=== PATIENT | male | born 1950 | race Caucasian/White ===

== ENCOUNTER 2016-05-11 18:43 | Emergency (ER) | payer MEDICARE ==
[~2016-05-11] VITALS: Ht 167.6 cm; Wt 82.0 kg
[~2016-05-11 18:43] MED LIST: AUGM875T PO; GLIP10TA67 PO; MAGN400 PO; METF500 PO; OXYC1SOL5 PO; ST JTAB PO
[2016-05-11 18:48] VITALS: BP 99/48; PULSE 92; RESP 16; TEMP 98.7; O2SAT 97
[2016-05-11] MEDS ORDERED: MAGN400T2 PO (19:15)
[2016-05-11] MEDS ORDERED: ASPI81CH37 CHEW (19:15)
[2016-05-11] MEDS ORDERED: GLIP5TAB8 PO (19:15)
[2016-05-11] MEDS ORDERED: METF500T PO (19:15)
[2016-05-11] MEDS ORDERED: VENTAER INH (19:16)
[2016-05-11] MEDS ORDERED: ADVA100A INH (19:16)
--- NOTE | 2016-05-11 20:12 | PD ---
HPI . left knee pain for 3 days Chief Complaint: Pain: Acute or Chronic Time Seen by Provider: 20:12 Travel History International Travel<30 days: No Contact w/Intl Traveler<30days: No Traveled to known affect area: No History of Present Illness HPI 65-year-old male with his history of osteomyelitis here with complaints of left knee that has been swollen and painful for 3 days. Patient denies any mechanism of injury and tells me that his knee just all of a sudden started hurting. He is concerned that he may have infection and decided to come to the ED for further evaluation. Patient rates the pain as 9/10 without any further radiation. PFSH Past Medical History Asthma: Yes Blood Disorders: No Heart Rhythm Problems: No Cancer: No Cardiovascular Problems: No High Cholesterol: No Chemotherapy: No Chest Pain: No Congestive Heart Failure: No Diabetes: Yes Patient Takes Glucophage: Yes Endocrine: No Genitourinary: No Immune Disorder: No Musculoskeletal: Yes (Osteomyelitis) Neurologic: No Psychiatric: No Respiratory: Yes Radiation Therapy: No Thyroid Disease: No Tetanus Vaccination: < 5 Years Influenza Vaccination: Yes Social History Alcohol Use: Yes (2-6 beers daily) Tobacco Use: No Substance Use: No Allergies-Medications (Allergen,Severity, Reaction): Coded Allergies: No Known Allergies (Unverified , 05/11/16) Reported Meds & Prescriptions Reported Meds & Active Scripts Active Ibuprofen 800 Mg Tab 800 Mg PO TID Cleocin (Clindamycin HCl) 150 Mg Cap 450 Mg PO Q6H 7 Days Reported Advair Diskus Inh (Fluticasone-Salmeterol Inh) 100-50 Mcg/Blist Aer 1 Puff INH BID Rinse mouth after use. Ventolin Hfa 18 GM Inh (Albuterol Sulfate) 90 Mcg/Act Aer 2 Puff INH Q4-6H PRN Metformin (Metformin HCl) 500 Mg Tab 500 Mg PO DIRECTED With meals Magnesium Oxide 400 Mg Tab 400 Mg PO BID Glipizide 5 Mg Tab 5 Mg PO DAILY Take 30 minutes before a meal Aspirin Low Dose (Aspirin) 81 Mg Chew 81 Mg CHEW DAILY Review of Systems General / Constitutional: No: Fever Eyes: No: Visual changes HENT: No: Headaches Cardiovascular: No: Chest Pain or Discomfort Respiratory: No: Shortness of Breath Gastrointestinal: No: Abdominal Pain Genitourinary: No: Dysuria Musculoskeletal: Positive: Pain (left knee pain) Skin: No Rash Neurologic: No: Weakness Psychiatric: No: Depression Endocrine: No: Polydipsia Hematologic/Lymphatic: No: Easy Bruising Physical Exam Narrative GENERAL: AAO x 3, no acute distress, Well-nourished, well-developed patient. SKIN: Warm and dry. No visible rashes or bruising. HEAD: Normocephalic and atraumatic. EYES: No scleral icterus. No injection or drainage. ENT: No nasal drainage noted. Mucous membranes pink. Airway patent. NECK: Supple, trachea midline. No JVD. CARDIOVASCULAR: Regular rate and rhythm without murmurs, gallops, or rubs. RESPIRATORY: Breath sounds equal bilaterally. No accessory muscle use. No rhonchi or rales. GASTROINTESTINAL: Abdomen soft, non-tender, nondistended. EXTREMITIES: No cyanosis or edema. Left knee tender to touch. Decreased extension of the knee. There is some warmth to the medial aspect of the left knee and some mild erythema. NO definitive fluid collection BACK: Nontender without obvious deformity. No CVA tenderness. PSYCH: AAO x 3, normal affect. Data Data Last Documented VS Vital Signs Date Time Temp Pulse Resp B/P Pulse Ox O2 Delivery O2 Flow Rate FiO2 05/11/16 18:48 98.7 92 16 99/48 97 Orders Knee, Complete (4vws) (05/11/16 20:17) Oxycodone-Acetamin 5-325 Mg (Percocet (05/11/16 20:30) MDM Medical Decision Making Medical Screen Exam Complete: Yes Emergency Medical Condition: Yes Medical Record Reviewed: Yes Differential Diagnosis knee fracture, septic arthritis, less likely knee dislocation Narrative Course 65-year-old male with his history of osteomyelitis here with complaints of left knee that has been swollen and painful for 3 days. Patient denies any mechanism of injury and tells me that his knee just all of a sudden started hurting. He is concerned that he may have infection and decided to come to the ED for further evaluation. Patient rates the pain as 9/10 without any further radiation. Patient seen and examined. He does have some limited range of motion of the left knee. X-ray ordered to rule out any type of fracture or early osteomyelitis. If negative I will go ahead and treat with antibiotics for possibility of septic arthritis. Patient will need to follow-up with his primary care provider. Last 24 hours Impressions Knee X-Ray 05/11/162016 Signed Impressions: Service Date/Time: Wednesday, May 11, 2016 20:35 - CONCLUSION: Unremarkable examination of the left knee. Olegario Mcgill MD Explained to patient that he will need to f/u with ortho next week. Stressed the importance and possibility of loss of limb if they do not follow through with recommendations. Recommend Dr. Brantley. His niece was present and verbalized understanding of instructions. Patient verbalized understanding of instructions, questions were answered, and thanked me for their care. I advised them if their condition worsens, please return to the nearest emergency room for further care. Diagnosis Primary Impression: Knee pain, acute Qualified Code: M25.562 - Acute pain of left knee Additional Impression: Septic arthritis Qualified Code: M00.9 - Pyogenic arthritis of left knee joint, due to unspecified organism Referrals: Mark Brantley MD Patient Instructions: General Instructions, Knee Pain (ED), Septic Arthritis ( DC) Additional Instructions: Rest the affected area as much as possible. Ice this area for 15-20 minutes at a time. You can do this every hour or as much as tolerated. Keep this area compressed (chaparrita bandage) as tolerated. Elevate this area. Use ibuprofen as needed for pain and inflammation. Please return to emergency department if your symptoms return or worsen. Follow up with your primary care provider. Take medications as prescribed. [place] for worsening signs of infection which include increased redness, increased warmth, purulent drainage, increased swelling or streaking. You will need to see orthopedics as soon as possible. Make an appointment. Med/Other Pt SpecificInfo: Prescription(s) given Scripts Ibuprofen 800 Mg [id number] Mg PO TID #21 TAB Prov:Kumar Chapa MD 05/11/16 Clindamycin (Cleocin)150 Mg [id number] Mg PO Q6H 7 Days Ref 0 Prov:Kumar Chapa MD 05/11/16 Disposition: 01 DISCHARGE HOME Condition: Stable Jenae Swift May 11, 2016 20:12
[2016-05-11] MEDS ORDERED: oxyCODONE/ACETAMINOPHEN 5 MG/325 MG TAB PO ONE (20:30)
--- NOTE | 2016-05-11 21:16 | RADHPO ---
EXAM DATE/TIME: 05/11/2016 20:35 [facility] COMPARISON: No previous studies available for comparison. INDICATIONS : Left medial knee pain with swelling. No known injury. MEDICAL HISTORY : None. SURGICAL HISTORY : None. ENCOUNTER: Initial ACUITY: 3 days LOCATION: Left medial knee FINDINGS: Four view examination of the left knee demonstrates no evidence of fracture or dislocation. Bony min eralization is normal. The articular surfaces are intact. The suprapatellar soft tissues have a nor mal configuration. CONCLUSION: Unremarkable examination of the left knee. Olegario Mcgill MD on May 11, 2016 at 21:13 Board Certified Radiologist. This report was verified electronically.
[2016-05-11] MEDS ORDERED: CLIN150 PO (21:24)
[2016-05-11] MEDS ORDERED: IBUP800T23 PO (21:24)
[2016-05-11 21:25] VITALS: RESP 18
== END 2016-05-11 21:50 | disposition home or self-care (01) ==
LOC: PHEFT 18:43
DX: M25.562 Pain in left knee (principal); M00.9 Pyogenic arthritis, unspecified
CPT/HCPCS: 73564; 99283

== ENCOUNTER 2016-05-14 15:03 | Inpatient (IN) | payer MEDICARE ==
[~2016-05-14] VITALS: Ht 167.6 cm; Wt 81.1 kg
[~2016-05-14 15:03] MED LIST changes: +ADVA100A INH; +ASPI81CH37 CHEW; -AUGM875T PO; +CLIN150 PO; -GLIP10TA67 PO; +GLIP5TAB8 PO; +IBUP800T23 PO; -MAGN400 PO; +MAGN400T2 PO; -METF500 PO; +METF500T PO; -OXYC1SOL5 PO; -ST JTAB PO; +VENTAER INH
[2016-05-14 15:08] VITALS: BP 154/69; PULSE 81; RESP 16; TEMP 97.6; O2SAT 96
--- NOTE | 2016-05-14 15:38 | PD ---
HPI Chief Complaint: Pain: Acute or Chronic Time Seen by Provider: 15:12 Travel History International Travel<30 days: No Contact w/Intl Traveler<30days: No Traveled to known affect area: No History of Present Illness HPI This is a 65-year-old male who has a history of diabetes who presents to the emergency department with 1 week of knee pain, constant, making it difficult for him to walk, severe, associated with warmth of his knee. He has a history of osteomyelitis in his toe. He also has a history of alcohol abuse. He was seen several days ago in the emergency department and discharged on clindamycin. PFSH Past Medical History Hx Anticoagulant Therapy: Yes (ASA 81 MG PO) Asthma: Yes Blood Disorders: No Heart Rhythm Problems: No Cancer: No Cardiovascular Problems: Yes High Cholesterol: No Chemotherapy: No Chest Pain: No Congestive Heart Failure: No Diabetes: Yes Patient Takes Glucophage: Yes Diminished Hearing: No Endocrine: No Genitourinary: No Immune Disorder: No Implanted Vascular Access Dvce: Yes Musculoskeletal: Yes (Osteomyelitis) Neurologic: No Psychiatric: No Respiratory: Yes Radiation Therapy: No Thyroid Disease: No Tetanus Vaccination: < 5 Years Past Surgical History Other Surgery: Yes (RIGHT KNEE ) Social History Alcohol Use: Yes (2-6 beers daily) Tobacco Use: No Substance Use: No Allergies-Medications (Allergen,Severity, Reaction): Coded Allergies: No Known Allergies (Unverified , 05/14/16) Reported Meds & Prescriptions Reported Meds & Active Scripts Active Ibuprofen 800 Mg Tab 800 Mg PO TID Cleocin (Clindamycin HCl) 150 Mg Cap 450 Mg PO Q6H 7 Days Reported Advair Diskus Inh (Fluticasone-Salmeterol Inh) 100-50 Mcg/Blist Aer 1 Puff INH BID Rinse mouth after use. Ventolin Hfa 18 GM Inh (Albuterol Sulfate) 90 Mcg/Act Aer 2 Puff INH Q4-6H PRN Metformin (Metformin HCl) 500 Mg Tab 500 Mg PO DIRECTED With meals Magnesium Oxide 400 Mg Tab 400 Mg PO BID Glipizide 5 Mg Tab 5 Mg PO DAILY Take 30 minutes before a meal Aspirin Low Dose (Aspirin) 81 Mg Chew 81 Mg CHEW DAILY Review of Systems Except as stated in HPI: all other systems reviewed are Neg Physical Exam Narrative GENERAL:Well appearing, no acute distress SKIN: Some erythema over the proximal tibia HEAD: Atraumatic. Normocephalic. EYES: Pupils equal and round. No injection or drainage. ENT: Moist mucous membranes NECK: Trachea midline. CARDIOVASCULAR: Regular rate and rhythm. No murmur appreciated. RESPIRATORY: Clear to auscultation. Breath sounds equal bilaterally. GASTROINTESTINAL: Abdomen soft, non-tender, nondistended. MUSCULOSKELETAL: Warmth and mild effusion of the left knee with severe pain with range of motion NEUROLOGICAL: Awake and alert. No obvious cranial nerve deficits. Moving all extremities. PSYCHIATRIC: Appropriate mood and affect; insight and judgment normal. Data Data Last Documented VS Vital Signs Date Time Temp Pulse Resp B/P Pulse Ox O2 Delivery O2 Flow Rate FiO2 05/14/16 15:10 84 16 05/14/16 15:08 97.6 154/69 96 Orders Electrocardiogram (05/14/16 ) Complete Blood Count With Diff (05/14/16 15:13) Comprehensive Metabolic Panel (05/14/16 15:13) C-Reactive Protein (Crp) (05/14/16 15:13) ^ Insert Iv (05/14/16 15:13) Ed Poc Ultrasound (05/14/16 ) Blood Culture (05/14/16 15:24) Westergren Sedimentation Rate (05/14/16 15:24) Knee, Ltd (1 Or 2vws) (05/14/16 ) Alcohol (Ethanol) (05/14/16 15:20) Type And Screen (05/14/16 16:09) Prothrombin Time / Inr (Pt) (05/14/16 16:09) Act Partial Throm Time (Ptt) (05/14/16 16:09) Lidocaine 1% Inj (50 Ml) (Xylocaine 1% I (05/14/16 16:15) Vancomycin Inj (Vancomycin Inj) (05/14/16 16:45) Cefepime Inj (Maxipime Inj) (05/14/16 16:45) Admit Order (Ed Use Only) (05/14/16 17:12) Lactic Acid (05/14/16 17:13) Red Blood Cells (Rbc) (05/14/16 17:13) Blood Product Administration .UPON TRANSFUSION (05/14/16 17:13) Sodium Chlor 0.9% 250 Ml Inj (Ns 250 Ml (05/14/16 17:15) Pantoprazole Inj (Protonix Inj) (05/14/16 17:15) Labs Laboratory Tests Test 05/14/16 05/14/16 15:20 16:10 White Blood Count 11.3 TH/MM3 Red Blood Count 2.09 MIL/MM3 Hemoglobin 6.8 GM/DL Hematocrit 20.6 % Mean Corpuscular Volume 98.4 FL Mean Corpuscular Hemoglobin 32.5 PG Mean Corpuscular Hemoglobin 33.0 % Concent Red Cell Distribution Width 14.7 % Platelet Count 104 TH/MM3 Mean Platelet Volume 8.2 FL Neutrophils (%) (Auto) 80.8 % Lymphocytes (%) (Auto) 5.5 % Monocytes (%) (Auto) 10.5 % Eosinophils (%) (Auto) 2.9 % Basophils (%) (Auto) 0.3 % Neutrophils # (Auto) 9.1 TH/MM3 Lymphocytes # (Auto) 0.6 TH/MM3 Monocytes # (Auto) 1.2 TH/MM3 Eosinophils # (Auto) 0.3 TH/MM3 Basophils # (Auto) 0.0 TH/MM3 CBC Comment AUTO DIFF Differential Total Cells 100 Counted Neutrophils % (Manual) 68 % Band Neutrophils % 12 % Lymphocytes % 9 % Monocytes % 9 % Eosinophils % 2 % Neutrophils # (Manual) 9.0 TH/MM3 Differential Comment FINAL DIFF MANUAL Toxic Granulation 1+ Toxic Vacuolation PRESENT Platelet Estimate LOW Platelet Morphology Comment NORMAL Ovalocytes 1+ Erythrocyte Sedimentation Rate GREATER THAN 140 mm/hr Sodium Level 132 MEQ/L Potassium Level 5.0 MEQ/L Chloride Level 99 MEQ/L Carbon Dioxide Level 19.1 MEQ/L Anion Gap 14 MEQ/L Blood Urea Nitrogen 103 MG/DL Creatinine 5.38 MG/DL Estimat Glomerular Filtration 11 ML/MIN Rate Random Glucose 245 MG/DL Calcium Level 7.3 MG/DL Protein Corrected Calcium 7.8 MG/DL Total Bilirubin 1.2 MG/DL Aspartate Amino Transf 19 U/L (AST/SGOT) Alanine Aminotransferase 13 U/L (ALT/SGPT) Alkaline Phosphatase 106 U/L C-Reactive Protein 26.40 MG/DL Total Protein 6.1 GM/DL Albumin 1.7 GM/DL Ethyl Alcohol Level LESS THAN 3 MG/DL Prothrombin Time 13.4 SEC Prothromb Time International 1.2 RATIO Ratio Activated Partial 38.5 SEC Thromboplast Time Blood Type A POSITIVE Blood Bank Comment [facility] Medical Decision Making Medical Screen Exam Complete: Yes Emergency Medical Condition: Yes Interpretation(s) afebrile, no tachycardia, hypertensive leukocytosis anemia thrombocytopenia 12% bandemia sed rate and crp markedly elevated bun is 103 creatinine is 5.3 potassium is 5 Differential Diagnosis Septic arthritis, cellulitis, osteomyelitis, bacteremia, GI bleed Narrative Course This is a 65-year-old male who presents to the emergency department with left knee pain. The patient was placed on a monitor and an IV was established. His left knee is warm with some adjacent cellulitis over the proximal tibia. I don' t appreciate a large effusion. Labs were obtained which demonstrate markedly elevated inflammatory markers, anemia and renal failure as well as a 12% bandemia. Patient was given vancomycin and cefepime. He was ordered for a unit of blood. He was found to be Hemoccult positive. He was given a dose of pantoprazole. I spoke to Dr. Bolaños who was on-call for orthopedics. He agrees with an MRI of the knee to evaluate for underlying effusion or osteomyelitis. Patient will be admitted for further evaluation. Procedures Procedure Narrative Arthrocentesis was attempted with 20-gauge needle along the inferior medial and lateral patella. Area was cleansed with Betadine and ChloraPrep. I was unable to aspirate any joint fluid. Bedside ultrasound didn't demonstrate any effusion. Physician Communication Physician Communication Discussed with resident team and Dr. Phillips Diagnosis Primary Impression: Renal failure Admitting Information Admitting Physician Requests: Admit Anna Mcwilliams MD May 14, 2016 15:38
[2016-05-14 15:55] LABS: AUTOMATED NEUTROPHIL # 9.1 TH/MM3 (1.8-7.7); BASOPHIL % 0.3 % (0.0-2.0); EOSINOPHIL # 0.3 TH/MM3 (0-0.4); EOSINOPHIL % 2.9 % (0.0-4.0); LYMPH % 5.5 % (9.0-44.0); LYMPHOCYTE # 0.6 TH/MM3 (1.0-4.8); MEAN CELL VOLUME 98.4 FL (80.0-100.0); MEAN CORPUSCULAR HEMOGLOBIN 32.5 PG (27.0-34.0); MONO % 10.5 % (0.0-8.0); NEUT % 80.8 % (16.0-70.0); PLATELET COUNT 104 TH/MM3 (150-450); RED BLOOD COUNT 2.09 MIL/MM3 (4.50-5.90); RED CELL DISTRIBUTION WIDTH 14.7 % (11.6-17.2); WHITE BLOOD COUNT 11.3 TH/MM3 (4.0-11.0)
--- NOTE | 2016-05-14 15:56 | RADRPT ---
EXAM DATE/TIME: 05/14/2016 15:44 [facility] COMPARISON: No previous studies available for comparison. INDICATIONS : Left medial knee pain with discoloration. Patient states no injury. MEDICAL HISTORY : None. SURGICAL HISTORY : None. ENCOUNTER: Subsequent ACUITY: 1 week PAIN SCORE: 8/10 LOCATION: Left medial knee FINDINGS: Two view examination of the left knee demonstrates no evidence of fracture or dislocation. Bony mine ralization is normal. The suprapatellar soft tissues have a normal configuration. CONCLUSION: Negative for fracture or dislocation. Follow up in 7-10 days is suggested if symptoms persist. Alexy Padron MD FACR on May 14, 2016 at 15:53 Board Certified Radiologist. This report was verified electronically.
[2016-05-14 16:04] LABS: HEMO FLAGS AUTO DIFF
[2016-05-14 16:08] LABS: HEMATOCRIT 20.6 % (39.0-51.0)
[2016-05-14 16:12] LABS: ALT (GPT) 13 U/L (12-78); ANION GAP 14 MEQ/L (5-15); BICARBONATE 19.1 MEQ/L (21.0-32.0); BLOOD UREA NITROGEN 103 MG/DL (7-18); CHLORIDE 99 MEQ/L (98-107); GLOMERULAR FILTRATION RATE 11 ML/MIN (>89); SODIUM (NA) 132 MEQ/L (136-145)
[2016-05-14] MEDS ORDERED: LIDOCAINE HCL 1% 50 ML VIAL INFIL ONE (16:15)
[2016-05-14 16:19] LABS: ALKALINE PHOSPHATASE 106 U/L (45-117); AST (GOT) 19 U/L (15-37); CALCIUM-PROTEIN CORRECTED 7.8 MG/DL (8.5-10.1); TOTAL BILIRUBIN ADULT 1.2 MG/DL (0.2-1.0)
[2016-05-14 16:39] LABS: BANDS 12 % (0-6); EOSINOPHILS 2 % (0-4); POLYS (SEG NEUTROPHILS) 68 % (16-70); WBC DIFF SAMPLE 100
[2016-05-14 16:40] LABS: OVALOCYTES 1+ (NORMAL); PLATELET ESTIMATE SMEAR LOW (NORMAL); PLATELET MORPHOLOGY NORMAL (NORMAL); SCAN/DIFF FINAL DIFF MANUAL; TOXIC GRANULATION 1+ (NORMAL); TOXIC VACUOLATION PRESENT (NONE SEEN)
[2016-05-14] MEDS ORDERED: VANCOMYCIN INJ 1,200 MG in SODIUM CHLOR 0.9% 250 ML INJ 250 ML IV ONE (16:45)
[2016-05-14] MEDS ORDERED: CEFEPIME INJ 2,000 MG in SODIUM CHLORIDE 0.9% INJ 100 ML IV ONE (16:45)
[2016-05-14 16:51] LABS: APTT (PATIENT) 38.5 SEC (24.3-30.1); INTERNATIONAL NORMALIZED RATIO 1.2 RATIO; PROTHROMBIN TIME - PATIENT 13.4 SEC (9.8-11.6)
[2016-05-14] MEDS ORDERED: SODIUM CHLOR 0.9% 250 ML INJ 250 ML IV ONE (17:15)
[2016-05-14] MEDS ORDERED: PANTOPRAZOLE SODIUM 40 MG VIAL IV PUSH ONE (17:15)
--- NOTE | 2016-05-14 17:26 | HHI.HP ---
HPI Service Family Medicine Primary Care Physician Non-Staff Admission Diagnosis renal failure, anemia, sepsis Diagnoses: Chief Complaint: Knee pain International Travel<30 Days: No Contact w/Intl Traveler<30days: No Known Affected Area: No History of Present Illness 65 y/o male with history of DM and osteomyelitis presents with left knee pain. Pt is a poor historian. Pt's nephew provides some of the history. Pain in the left knee, started last Saturday. No injury/trauma. Denies any redness/swelling. No recent illness. Denies fever/chills. Nephew states that he had taken a nap in an uncomfortable position and the next day the pain started and couldn't get out of bed. He was brought to the [place] ED due to fever and a warm knee. THey diagnosed him with possible septic arthritis and prescribed ibuprofen and Clindamycin, which he has been taking. Pt also complains of stomach pain. Epigastric area, comes and goes. No diarrhea/ constipation. Denies any blood in stool, black stools. Last bowel movement was 1 week ago. Family states he has decreased appetite. Hasn't been drinking much. No history of ulcers, never had colonoscopy. No pain like this previously. Is from out of town and is staying with his nephew. Review of Systems ROS Limitations: Poor Historian Constitutional: COMPLAINS OF: Change in appetite, DENIES: Fever, Chills, Dizziness Respiratory: DENIES: Cough, Shortness of breath Cardiovascular: DENIES: Chest pain, Lower Extremity Edema Gastrointestinal: COMPLAINS OF: Abdominal pain, Constipation, DENIES: Black stools, Bloody stools, Diarrhea, Nausea, Vomiting Musculoskeletal: COMPLAINS OF: Joint pain, Muscle aches Past Family Social History Past Medical History DM Asthma Past Surgical History Right great toe amputation 3 years ago due osteomyelitis Right laparascopic knee Reported Medications Reported Meds & Active Scripts Active Ibuprofen 800 Mg Tab 800 Mg PO TID Cleocin (Clindamycin HCl) 150 Mg Cap 450 Mg PO Q6H 7 Days Reported Advair Diskus Inh (Fluticasone-Salmeterol Inh) 100-50 Mcg/Blist Aer 1 Puff INH BID Rinse mouth after use. Ventolin Hfa 18 GM Inh (Albuterol Sulfate) 90 Mcg/Act Aer 2 Puff INH Q4-6H PRN Metformin (Metformin HCl) 500 Mg Tab 500 Mg PO DIRECTED With meals Magnesium Oxide 400 Mg Tab 400 Mg PO BID Glipizide 5 Mg Tab 5 Mg PO DAILY Take 30 minutes before a meal Aspirin Low Dose (Aspirin) 81 Mg Chew 81 Mg CHEW DAILY Allergies: Coded Allergies: No Known Allergies (Unverified , 05/14/16) Active Ordered Medications Active Medications Cefepime HCl 2000 mg/Sodium Chloride 100 ml @ 200 mls/hr ONCE ONCE IV; Start 05/14/16 at 16:45; Stop 05/14/16 at 17:14; Status DC Lidocaine HCl 10 ml 10 ml ONCE ONCE INFIL Last administered on 05/14/16t 16:15 ; Admin Dose 10 ML; Start 05/14/16 at 16:15; Stop 05/14/16 at 16:16; Status DC Pantoprazole Sodium (Protonix Inj) 40 mg ONCE ONCE IV PUSH; Start 05/14/16 at 17:15; Stop 05/14/16 at 17:16; Status DC Sodium Chloride (NS 250 ml Inj) 250 ml @ 15 mls/hr ONCE ONCE IV; Start at 17:15; Stop 05/15/16 at 09:54 Vancomycin HCl 1200 mg/Sodium Chloride 262 ml @ 250 mls/hr ONCE ONCE IV; Start 05/14/16 at 16:45; Stop 05/14/16 at 17:47 Family History Brother-HD Social History Tobacco-smoked in the past Alcohol: 3-5 beers/day Illicit drug use-denies Physical Exam Vital Signs Vital Signs Date Time Temp Pulse Resp B/P Pulse Ox O2 Delivery O2 Flow Rate FiO2 05/14/16 15:10 84 16 05/14/16 15:08 97.6 81 16 154/69 96 Physical Exam GENERAL: This is a well-nourished, well-developed patient, in no apparent distress. SKIN: Erythema present over left anterior perry. No other rashes. HEAD: Atraumatic. Normocephalic. EYES: Pupils equal round and reactive. Extraocular motions intact. No scleral icterus. ENT: Dry mucus membranes NECK: Trachea midline. No JVD or lymphadenopathy. CARDIOVASCULAR: 2/6 systolic murmur. Regular rate RESPIRATORY: Clear to auscultation. Breath sounds equal bilaterally. No wheezes , rales, or rhonchi. GASTROINTESTINAL: Abdomen soft, Tender in epigastric area. BS+ MUSCULOSKELETAL: Minimal effusion of left knee. Warm to touch. Pain with palpation. NEUROLOGICAL: Awake and alert. NFND. Motor and sensory grossly within normal limits. Normal speech. Laboratory Laboratory Tests Test 05/14/16 05/14/16 15:20 16:10 White Blood Count 11.3 Red Blood Count 2.09 Hemoglobin 6.8 Hematocrit 20.6 Mean Corpuscular Volume 98.4 Mean Corpuscular Hemoglobin 32.5 Mean Corpuscular Hemoglobin 33.0 Concent Red Cell Distribution Width 14.7 Platelet Count 104 Mean Platelet Volume 8.2 Neutrophils (%) (Auto) 80.8 Lymphocytes (%) (Auto) 5.5 Monocytes (%) (Auto) 10.5 Eosinophils (%) (Auto) 2.9 Basophils (%) (Auto) 0.3 Neutrophils # (Auto) 9.1 Lymphocytes # (Auto) 0.6 Monocytes # (Auto) 1.2 Eosinophils # (Auto) 0.3 Basophils # (Auto) 0.0 CBC Comment AUTO DIFF Differential Total Cells 100 Counted Neutrophils % (Manual) 68 Band Neutrophils % 12 Lymphocytes % 9 Monocytes % 9 Eosinophils % 2 Neutrophils # (Manual) 9.0 Differential Comment FINAL DIFF MANUAL Toxic Granulation 1+ Toxic Vacuolation PRESENT Platelet Estimate LOW Platelet Morphology Comment NORMAL Ovalocytes 1+ Erythrocyte Sedimentation Rate GREATER THAN 140 Sodium Level 132 Potassium Level 5.0 Chloride Level 99 Carbon Dioxide Level 19.1 Anion Gap 14 Blood Urea Nitrogen 103 Creatinine 5.38 Estimat Glomerular Filtration 11 Rate Random Glucose 245 Calcium Level 7.3 Protein Corrected Calcium 7.8 Total Bilirubin 1.2 Aspartate Amino Transf 19 (AST/SGOT) Alanine Aminotransferase 13 (ALT/SGPT) Alkaline Phosphatase 106 C-Reactive Protein 26.40 Total Protein 6.1 Albumin 1.7 Ethyl Alcohol Level LESS THAN 3 Prothrombin Time 13.4 Prothromb Time International 1.2 Ratio Activated Partial 38.5 Thromboplast Time Blood Type A POSITIVE Blood Bank Comment Date/Time Procedure Status Source Growth 05/14/16 15:20 Aerobic Blood Culture Received Blood Peripheral Pending 05/14/16 15:20 Anaerobic Blood Culture Received Blood Peripheral Pending Result Diagram: 05/14/16 1520 05/14/16 1520 Imaging Last Impressions Knee X-Ray 05/14/16 0000 Signed Impressions: Service Date/Time: Saturday, May 14, 2016 15:44 - CONCLUSION: Negative for fracture or dislocation. Follow up in 7-10 days is suggested if symptoms persist. Alexy Padron MD FACR Assessment and Plan Assessment and Plan 65 y/o male with history of DM and osteomyelitis presents with left leg pain. Found to have anemia and JOSE. Will admit for workup of left knee pain for possible osteomyelitis vs sepic arthritis. Code Status Full Discussed Condition With Dr. Flood Problem List: (1) Knee pain, acute Status: Acute Plan: Ddx: Osteomyelitis, septic arthritis, cellulitis, gout Afebrile, WBC mildly elevated at 11.3, 12% bands. ESR>140. CRP 26.4. Lactic acid 2.0 On exam, no significant effusion, some adjacent cellulitis, left knee is warm to touch. ED attempted arthrocentesis, with no aspiration of any fluid. POC ultrasound didn't demonstrate any effusion. ED physician discussed case with Dr. Phillips, concrete paver for orthopedics, who recommended MRI and to follow-up up results with him. Given Vanc & Cefepime in ED. Will continue for prophylactic coverage of osteomyelitis and cover possible cellulitis -Continue Vanc (05/14- ), consult pharmacy -Continue Cefepime (05/14- ) -MRI pending -Will discuss results with Dr. Phillips and place formal consult if needed at that time. -Diet nothing by mouth for any possible intervention. -Tylenol, Zofran PRN -Maintenance fluids -Troponin pending (2) JOSE (acute kidney injury) Status: Acute Plan: Ddx includes pre-renal (dehydration/hypovolemia, sepsis) vs renal (ATN); BUN/creatinine ratio is 19.1 Patient with decreased eating and drinking. Patient also presents with anemia and Hemoccult-positive. Baseline Cr is 0.83 from 2 years ago, admission Cr is 5.38. BUN is 103. No AMS presently but monitor closely for symptoms. K is 5.0. Tele to monitor for arrhythmias. Lactic acid 2.0. Phos is 3.6. High phos will be treated with calcium acetate. BUN: CR ratio is on border prerenal/intrarenal. -NS at 125 mls/hr -Strict I/Os -U/A pending -Recheck BMP this evening. -Daily BMPs (3) Anemia Status: Acute Plan: DDx: gastric/duodenal ulcer, diverticulosis, colorectal cancer, polyps, IBD, hemorrhoids. No history of ulcers or blood thinners. Has some recent NSAID use and history of alcohol abuse. No recent unintentional wt. loss. No reported hematemesis. Hx not consistent with bleeding crisis-no bright red blood; bleeding described as slow/low volume. No dizziness. BP WNLs and not tachycardic. Hemoccult in ED positive. H/H on admission was 6.8/20.6. BUN/Cr ratio 19, suggestive of upper GI bleed. PT 13.4 -Protonix 40 mg IV BID -Transfusing 1 unit pRBC, monitor post-transfusion H/H -Consult GI: appreciate recs; NPO until pt. evaluated. -Fall precautions. Supplemental O2 PRN. Pulse Ox. -CBC, BMP in AM -Hold all anticoagulation (Coumadin, Plavix, Aspirin). SCDs for DVT prophylaxis. (4) Diabetes mellitus Status: Acute Plan: Hold home metformin and glipizide -Low-dose sliding scale while inpatient. (5) Asthma Status: Acute Plan: -Continue home inhaler, Advair -Albuterol PRN (6) Alcohol abuse Status: Acute Plan: Drinks several beers/night. Denies alcohol withdrawals. No seizures in past. -Rally pack -CIWA protocol (7) FEN Status: Acute Plan: Fluids: NS @ 125mls/hr Electrolytes: hyponatremia; continue to monitor Nutrition: NPO for possible intervention DVT ppx: SCDs, chemoppx contraindicated due to GIB GI ppx: Protonix Physician Certification 2 Midnight Certification Type: Admission for Inpatient Services Order for Inpatient Services The services are ordered in accordance with Medicare regulations or non- Medicare payer requirements, as applicable. In the case of services not specified as inpatient-only, they are appropriately provided as inpatient services in accordance with the 2-midnight benchmark. Estimated LOS (days): 2 days is the estimated time the patient will need to remain in the hospital, assuming treatment plan goals are met and no additional complications. Post-Hospital Plan: Home Problem Qualifiers (1) Knee pain, acute: Qualified Code: M25.562 - Acute pain of left knee (2) Anemia: Qualified Code: D64.9 - Anemia, unspecified type (3) Diabetes mellitus: Qualified Code: E11.8 - Type 2 diabetes mellitus with complication, without long-term current use of insulin (4) Asthma: Qualified Code: J45.909 - Uncomplicated asthma, unspecified asthma severity Prem Anna MD R1 May 14, 2016 17:26
[2016-05-14] MEDS ORDERED: ACETAMINOPHEN 325 MG TAB PO PRN (17:30)
[2016-05-14] MEDS ORDERED: ONDANSETRON HCL 4 MG/2 ML VIAL IVP PRN (17:30)
[2016-05-14] MEDS ORDERED: SODIUM CHLORIDE 0.9% FLUSH 10 ML FLUSH IV FLUSH PRN (17:30)
[2016-05-14] MEDS ORDERED: NALOXONE HCL 0.4 MG/ML AMP IV PRN (17:30)
[2016-05-14] MEDS: SODIUM CHLOR 0.9% 1000 ML INJ 1,000 ML IV SCH (17:40)
[2016-05-14] MEDS ORDERED: DEXTROSE 50% IN WATER 50 ML VIAL(D50) IV PUSH PRN (17:45)
[2016-05-14] MEDS ORDERED: GLUCAGON 1 MG/ML VIAL OTHER PRN (17:45)
[2016-05-14 18:30] VITALS: BP 136/62; PULSE 77; RESP 16; TEMP 98.2; O2SAT 98
[2016-05-14 18:31] LABS: MAGNESIUM 2.7 MG/DL (1.5-2.5)
[2016-05-14 18:45] VITALS: BP 136/62; PULSE 76; RESP 17; TEMP 98.1; O2SAT 99
[2016-05-14] MEDS ORDERED: Vancomycin Consult Pharmacy 1 EA XX SCH (18:45)
[2016-05-14] MEDS ORDERED: cloNIDine HCL 0.1 MG TAB PO PRN (19:00)
[2016-05-14 19:10] VITALS: BP 145/61; TEMP 98.5
[2016-05-14] MEDS ORDERED: Custom Consult Pharmacy 1 EA OTHER SCH (19:15)
[2016-05-14] MEDS ORDERED: RESP: ALBUTEROL 2.5 MG/3 ML NEB (PRN) INH (19:45)
[2016-05-14] MEDS ORDERED: LORazepam 2 MG TAB PO PRN (20:00)
[2016-05-14] MEDS ORDERED: LORazepam 1 MG TAB PO PRN (20:00)
[2016-05-14] MEDS ORDERED: FLUMAZENIL 0.5 MG/5 ML VIAL IV PUSH PRN (20:00)
[2016-05-14] MEDS ORDERED: VANCOMYCIN INJ 800 MG in SODIUM CHLOR 0.9% 250 ML INJ 250 ML IV ONE (20:00)
[2016-05-14] MEDS ORDERED: LORazepam 2 MG/ML VIAL IV PUSH PRN ×3 (20:00)
[2016-05-14 20:30] VITALS: BP 119/56; PULSE 87; RESP 18; TEMP 97.5; O2SAT 96
[2016-05-14] MEDS ORDERED: MAGNESIUM OXIDE 400 MG TAB PO SCH (21:00)
[2016-05-14] MEDS: SODIUM CHLORIDE 0.9% FLUSH 10 ML FLUSH IV FLUSH SCH (22:26)
[2016-05-14] MEDS: BUDESONIDE-FORMOTEROL 80/4.5 MCG INHALER INH SCH (22:29)
[2016-05-14] MEDS: INSULIN ASPART SUPPLEMENTAL SCALE SQ SCH (22:34)
[2016-05-14 23:59] LABS: BACTERIA, URINE RARE /hpf; BLOOD, URINE MOD (NEG); COMMENT (UR) CULTURE INDICATED; CULTURE IF INDICATED CULTURE INDICATED; GLUCOSE,URINE 70 mg/dL (NEG); KETONE, URINE NEG (NEG); MUCUS URINE FEW /lpf (OCC); NITRITE,URINE NEG (NEG); PH, URINE 5.5 (5.0-8.5); URINE COLOR YELLOW (YELLW/STRAW)
[2016-05-15] VITALS (13 sets, daily range): BP systolic 108–150; BP diastolic 58–65; PULSE 86–93; RESP 18–22; TEMP 97.1–97.8; O2SAT 94–99
[2016-05-15 01:21] LABS: HEMATOCRIT 21.3 % (39.0-51.0)
[2016-05-15 01:41] LABS: BICARBONATE 16.4 MEQ/L (21.0-32.0)
[2016-05-15 01:56] LABS: CALCIUM-PROTEIN CORRECTED 7.8 MG/DL (8.5-10.1)
[2016-05-15] MEDS: SODIUM CHLOR 0.9% 1000 ML INJ 1,000 ML IV SCH ×3 (02:00→20:54)
[2016-05-15] MEDS ORDERED: VANCOMYCIN INJ 1,200 MG in SODIUM CHLOR 0.9% 250 ML INJ 250 ML IV SCH (05:00)
[2016-05-15] MEDS: INSULIN ASPART SUPPLEMENTAL SCALE SQ SCH ×4 (06:51→20:39)
--- NOTE | 2016-05-15 07:49 | PD.ORT.PN ---
Subjective Subjective Remarks Left knee and calf pain Objective Vitals Vital Signs Date Time Temp Pulse Resp B/P Pulse Ox O2 Delivery O2 Flow Rate FiO2 05/15/16 04:00 97.5 93 18 150/65 97 05/15/16 01:03 96 05/15/16 00:45 97.5 89 18 130/63 98 05/14/16 20:30 97.5 87 18 119/56 96 05/14/16 19:10 98.5 92 18 145/61 99 05/14/16 18:45 98.1 76 17 136/62 99 Room Air 05/14/16 18:30 98.2 77 16 136/62 98 Room Air 05/14/16 15:10 84 16 05/14/16 15:08 97.6 81 16 154/69 96 I/O 05/14/16 05/14/16 05/14/16 05/15/16 05/15/16 05/15/16 07:00 15:00 23:00 07:00 15:00 23:00 Output Total 200 ml Balance -200 ml Output Urine Total 200 ml # Bowel Movements 1 3 Result Diagram: 05/15/16 0055 05/15/16 0055 Other Results Laboratory Tests Test 05/14/16 16:10 Prothrombin Time 13.4 SEC (9.8-11.6) Prothromb Time International 1.2 RATIO Ratio Objective Remarks Right knee - benign Left knee range of motion 0/10/90 degrees minimal effusion mild errythema and swelling in calf + Cat's sign + tenderness to direct medial calf palpation 2+ pulses motor and sensory intact Assessment & Plan Problem List: (1) Pain of left calf Assessment and Plan Knee and calf pain Multiple other conditions Recommend venous Doppler to rule out DVT Clinically this does not look like knee sepsis because there is no significant effusion Medical management of multiple problems Monitor Victor Manuel Bolaños MD May 15, 2016 07:49
--- NOTE | 2016-05-15 08:15 | MB ---
cc: EDGAR SWIFT M.D. DATE OF CONSULTATION: 05/15/2016 REASON FOR CONSULTATION Requested to evaluate left knee to rule out sepsis. HISTORY OF PRESENT ILLNESS Kal Gonzalez is a 65-year-old male with diabetes and history of prior great toe amputation, who presents with difficulty ambulating and chief complaint of pain in his left knee. Apparently he was also seen in the ER several days ago where x-rays were taken and negative. Plain x-rays of the knee showed minimal degenerative changes. In his work-up he was found to have a mildly elevated white blood cell count and also found to have significant anemia of 6.8. His C-reactive protein was markedly elevated at 26.4. He was found to be in renal failure with creatinine of 5.38 and an estimated GFR of 11. His sedimentation rate was greater than 140. In the ER he was felt to possibly have a septic knee and the emergency room physician attempted several times to aspirate the knee using ultrasound guidance, but there was no significant effusion on the knee and she was not able to obtain any fluid. He was found to have a gastroesophageal bleed. An MRI of his knee was ordered but has not been obtained at this point. Multiple consultations have been obtained. He was given two doses of antibiotics. PAST MEDICAL HISTORY 1. Diabetes. 2. Asthma. 3. Previous right great toe amputation secondary to infection. 4. Previous arthroscopy on the right knee. MEDICATIONS 1. Metformin. 2. Ventolin. 3. Advair. 4. Magnesium. 5. Glipizide. 6. Aspirin. 7. Cleocin. 8. Ibuprofen. ALLERGIES He reports no known drug allergies. PHYSICAL EXAMINATION The patient is alert, oriented and appropriate. His right lower extremity is benign with the exception of prior surgery on the great toe. The left lower extremity shows some subtle swelling about the left knee in the popliteal fossa and the medial calf where he has some fullness and there is even some slight swelling at the level the ankle on the left side compared to the right. He has difficulty fully straightening his knee with about a 10 degree flexion contracture and we are able to flex his knee to about 90 degrees with good tracking of the patella. No ligamentous instability. Greatest pain in his calf and Homans sign causes calf pain and direct palpation of the calf causes pain. His distal pulses are 2+. His motor and sensory examination is intact. His hip range of motion is symmetric with the contralateral side. IMAGING Knee x-rays are benign. LABORATORY Laboratory studies are reviewed. ASSESSMENT 1. Renal failure. 2. Knee arthralgia with left calf pain, possible DVT. 3. GI bleed with anemia. 4. Diabetes. MEDICAL DECISION-MAKING His condition was discussed. Options of treatment were discussed. The reason for the consultation was rule out infection in the left knee. There is no obvious infection of the left knee. Clinically this does not appear to be sepsis in the knee because he does not have any fluid on the knee. However, he has swelling and pain in his left calf and it is possible that he has an infectious process in that area, particularly thrombophlebitis either infectious or just a deep venous thrombosis or a simple superficial venous thrombosis. I recommend further evaluation with ultrasound. An MRI scan has already been ordered of the left knee. Theoretically that would rule out osteomyelitis, low possibility of that were happening. He has multiple medical problems which are being managed by the medical service. I will follow peripherally. All this was discussed with the patient and all of his questions were answered. MD DAPHNEY Dyer/VALERIA /7:53 AM /8:04 AM
[2016-05-15 08:25] LABS: AUTOMATED NEUTROPHIL # 8.4 TH/MM3 (1.8-7.7); BASOPHIL % 0.4 % (0.0-2.0); EOSINOPHIL # 0.1 TH/MM3 (0-0.4); EOSINOPHIL % 0.5 % (0.0-4.0); LYMPH % 5.5 % (9.0-44.0); LYMPHOCYTE # 0.6 TH/MM3 (1.0-4.8); MEAN CELL VOLUME 96.3 FL (80.0-100.0); MEAN CORPUSCULAR HEMOGLOBIN 32.4 PG (27.0-34.0); MEAN CORPUSCULAR HGB CONC 33.7 % (32.0-36.0); MONO % 9.9 % (0.0-8.0); NEUT % 83.7 % (16.0-70.0); PLATELET COUNT 101 TH/MM3 (150-450); RED BLOOD COUNT 2.15 MIL/MM3 (4.50-5.90); RED CELL DISTRIBUTION WIDTH 18.5 % (11.6-17.2); WHITE BLOOD COUNT 10.1 TH/MM3 (4.0-11.0)
[2016-05-15 08:29] LABS: HEMO FLAGS DIFF FINAL
[2016-05-15 08:32] LABS: HEMATOCRIT 20.7 % (39.0-51.0)
[2016-05-15 08:54] LABS: CALCIUM-PROTEIN CORRECTED 7.7 MG/DL (8.5-10.1); MAGNESIUM 2.7 MG/DL (1.5-2.5)
[2016-05-15 08:55] LABS: BICARBONATE 16.2 MEQ/L (21.0-32.0); POTASSIUM 4.6 MEQ/L (3.5-5.1); TOTAL BILIRUBIN ADULT 1.6 MG/DL (0.2-1.0)
[2016-05-15] MEDS: PANTOPRAZOLE SODIUM 40 MG VIAL IV PUSH SCH ×3 (09:00→20:44)
[2016-05-15] MEDS ORDERED: SODIUM CHLOR 0.9% 250 ML INJ 250 ML IV ONE (09:00)
[2016-05-15] MEDS ORDERED: ASPIRIN 81 MG CHEW TAB CHEW SCH (09:00)
[2016-05-15] MEDS: BUDESONIDE-FORMOTEROL 80/4.5 MCG INHALER INH SCH ×2 (09:46→20:26)
[2016-05-15] MEDS: SODIUM CHLORIDE 0.9% FLUSH 10 ML FLUSH IV FLUSH SCH ×2 (09:47→20:48)
[2016-05-15] MEDS: LINEZOLID 600 MG PREMIX 300 ML IV SCH ×2 (09:52→20:51)
--- NOTE | 2016-05-15 10:12 | RADRPT ---
EXAM DATE/TIME: 05/15/2016 08:41 [facility] COMPARISON: No previous studies available for comparison. INDICATIONS : Swelling in bilateral lower extremities. MEDICAL HISTORY : Osteomyelitis. Asthma. Diabetes. SURGICAL HISTORY : Righ great and 2nd toe amputated. Right knee surgery. ENCOUNTER: Initial ACUITY: 1 day PAIN SCORE: 5/10 LOCATION: Bilateral legs. TECHNIQUE: Venous ultrasound of the left and right leg was performed from the inguinal ligament to the proximal calf. Real-time, color Doppler and spectral tracing, compression and augmentation techniques were us ed. FINDINGS: RIGHT LEG: There is normal compressibility of the deep venous system from the inguinal region to the proximal ca lf. No echogenic clot is seen in the lumen of the common femoral, femoral, popliteal, and posterior tibial veins. There is a normal response of the venous system to proximal and distal augmentation an d respiration. Elongated fluid in the popliteal fossa measuring 4 x 1 cm likely representing a Santo cyst. LEFT LEG: There is normal compressibility of the deep venous system from the inguinal region to the proximal ca lf. No echogenic clot is seen in the lumen of the common femoral, femoral, popliteal, and posterior tibial veins. There is a normal response of the venous system to proximal and distal augmentation an d respiration. Elongated area of fluid measuring 20 cm in length and 1.4 cm in transverse dimension is seen in the proximal to mid calf. CONCLUSION: 1. No evidence of lower extremity DVT on the right or left. 2. Elongated fluid in the proximal to mid left calf. The rectal diagnosis is muscle tear versus disse cting Santo cyst. 3. 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 Get Franco MD on May 15, 2016 at 10:05 Board Certified Radiologist. This report was verified electronically.
[2016-05-15] MEDS: RESP: ALBUTEROL 2.5 MG/IPRATROPIUM 0.5 MG NEB (SCH) NEB ×3 (11:19→21:16)
--- NOTE | 2016-05-15 12:06 | RADRPT ---
EXAM DATE/TIME: 05/15/2016 10:50 [facility] COMPARISON: No previous studies available for comparison. INDICATIONS : Increased BUN and Creatinine. MEDICAL HISTORY : Osteomyelitis. Asthma. Diabetes. SURGICAL HISTORY : Righ great and 2nd toe amputated. Right knee surgery. ENCOUNTER: Initial ACUITY: 2 days PAIN SCORE: 0/10 LOCATION: Bilateral flank MEASUREMENTS: RIGHT KIDNEY: 10.0 x 5.1 x 5.0 cm LEFT KIDNEY: 11.9 x 5.6 x 5.6 cm FINDINGS: RIGHT KIDNEY: Renal cortex is normal in thickness and echotexture. No hydronephrosis, stone, or mass. LEFT KIDNEY: Renal cortex is normal in thickness and echotexture. No hydronephrosis, stone, or mass. BLADDER: Within normal limits given the degree of distension. Prominent varices are noted in the splenic hilum. Recannulized paraumbilical vein noted. Liver has di ffusely nodular capsular contour suggesting cirrhosis. CONCLUSION: 1. Kidneys within normal limits. 2. Findings suggesting cirrhosis and portal venous hypertension with varices and recanalized paraumbi lical vein. Get Franco MD on May 15, 2016 at 12:02 Board Certified Radiologist. This report was verified electronically.
--- NOTE | 2016-05-15 12:23 | HHI.FPPN ---
Subjective Remarks 65 yo male here from [place] visiting his brother for [place]. He has been having pain in his left knee for the past week. He denies any trauma, but reports that the knee was warm and swollen. He reported to the emergency department at [facility] 2 days prior to admission and was diagnosed with septic arthritis and started on clindamycin and ibuprofen. However, his pain became worse, and he also began to experience some epigastric pain. He's not been eating much, and initially denied bloody or black stools and stated he was constipated. However this morning, he admits that he's had black tarry sticky stools off and on for a week. Denies history of ulcer. In the past, has been drinking 3-5 beers per day. Past medical history of asthma on 2 inhalers, diabetes on metformin and glipizide, and he takes magnesium oxide as well as a baby aspirin daily. Please see history and physical examination for this admission for additional historical details including past, family, social history as well as initial review of systems. This morning, he still is having left knee pain, admits to dark black and sticky stools, with some loose stools as well. He still has complaint of epigastric tenderness that denies any pain in his hip on either side, his right knee, or other. He is a little confused, but ultimately is aware that he had an ultrasound of his leg this morning. He says his leg is still cleaner as is his knee. Objective Vitals Vital Signs Date Time Temp Pulse Resp B/P Pulse Ox O2 Delivery O2 Flow Rate FiO2 05/15/16 10:08 94 21 05/15/16 08:00 97.4 89 22 135/62 98 05/15/16 04:00 97.5 93 18 150/65 97 05/15/16 01:03 96 05/15/16 00:45 97.5 89 18 130/63 98 05/14/16 20:30 97.5 87 18 119/56 96 05/14/16 19:10 98.5 92 18 145/61 99 05/14/16 18:45 98.1 76 17 136/62 99 Room Air 05/14/16 18:30 98.2 77 16 136/62 98 Room Air 05/14/16 15:10 84 16 05/14/16 15:08 97.6 81 16 154/69 96 I/O 05/14/16 05/14/16 05/14/16 05/15/16 05/15/16 05/15/16 07:00 15:00 23:00 07:00 15:00 23:00 Output Total 200 ml Balance -200 ml Output Urine Total 200 ml # Bowel Movements 1 3 Result Diagram: 05/15/16 0814 05/15/16 0814 Other Results Laboratory Tests Test 05/14/16 05/14/16 05/14/16 05/14/16 15:20 16:10 17:48 23:18 White Blood Count 11.3 TH/MM3 Red Blood Count 2.09 MIL/MM3 Hemoglobin 6.8 GM/DL Hematocrit 20.6 % Platelet Count 104 TH/MM3 Neutrophils (%) (Auto) 80.8 % Lymphocytes (%) (Auto) 5.5 % Monocytes (%) (Auto) 10.5 % Neutrophils # (Auto) 9.1 TH/MM3 Lymphocytes # (Auto) 0.6 TH/MM3 Monocytes # (Auto) 1.2 TH/MM3 Band Neutrophils % 12 % Monocytes % 9 % Neutrophils # (Manual) 9.0 TH/MM3 Toxic Granulation 1+ Toxic Vacuolation PRESENT Platelet Estimate LOW Ovalocytes 1+ Erythrocyte Sedimentation Rate GREATER THAN 140 mm/hr Sodium Level 132 MEQ/L Carbon Dioxide Level 19.1 MEQ/L Blood Urea Nitrogen 103 MG/DL Creatinine 5.38 MG/DL Estimat Glomerular Filtration 11 ML/MIN Rate Random Glucose 245 MG/DL Calcium Level 7.3 MG/DL Protein Corrected Calcium 7.8 MG/DL Total Bilirubin 1.2 MG/DL C-Reactive Protein 26.40 MG/DL Total Protein 6.1 GM/DL Albumin 1.7 GM/DL Prothrombin Time 13.4 SEC Activated Partial 38.5 SEC Thromboplast Time Magnesium Level 2.7 MG/DL Troponin I LESS THAN 0.02 NG/ML Urine Turbidity HAZY Urine Protein 30 mg/dL Urine Glucose (UA) 70 mg/dL Urine Occult Blood MOD Urine WBC 16 /hpf Urine WBC Clumps FEW Urine Bacteria RARE /hpf Urine Mucus FEW /lpf Urine Yeast (Budding) RARE Test 05/15/16 05/15/16 00:55 08:14 Hemoglobin 7.4 GM/DL 7.0 GM/DL Hematocrit 21.3 % 20.7 % Sodium Level 134 MEQ/L Carbon Dioxide Level 16.4 MEQ/L 16.2 MEQ/L Blood Urea Nitrogen 121 MG/DL 120 MG/DL Creatinine 5.37 MG/DL 5.28 MG/DL Estimat Glomerular Filtration 11 ML/MIN 11 ML/MIN Rate Random Glucose 317 MG/DL 341 MG/DL Calcium Level 7.2 MG/DL 7.1 MG/DL Protein Corrected Calcium 7.8 MG/DL 7.7 MG/DL Total Protein 6.0 GM/DL 6.0 GM/DL Red Blood Count 2.15 MIL/MM3 Red Cell Distribution Width 18.5 % Platelet Count 101 TH/MM3 Neutrophils (%) (Auto) 83.7 % Lymphocytes (%) (Auto) 5.5 % Monocytes (%) (Auto) 9.9 % Neutrophils # (Auto) 8.4 TH/MM3 Lymphocytes # (Auto) 0.6 TH/MM3 Monocytes # (Auto) 1.0 TH/MM3 Magnesium Level 2.7 MG/DL Total Bilirubin 1.6 MG/DL Albumin 1.7 GM/DL Imaging Last Impressions Lower Extremity Ultrasound 05/15/16 0000 Signed Impressions: Service Date/Time: Sunday, May 15, 2016 08:41 - CONCLUSION: 1. No evidence of lower extremity DVT on the right or left. 2. Elongated fluid in the proximal to mid left calf. The rectal diagnosis is muscle tear versus dissecting Santo cyst. 3. 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 Get Franco MD Knee X-Ray 05/14/16 0000 Signed Impressions: Service Date/Time: Saturday, May 14, 2016 15:44 - CONCLUSION: Negative for fracture or dislocation. Follow up in 7-10 days is suggested if symptoms persist. Alexy Padron MD FACR Objective Remarks O. CONSTITUTIONAL/GEN: normally nourished, in NAD. A bit slow to understand communication. EYES: conjunctiva normal, PERRLA, EOMI. NECK: Supple LUNGS: clear A-P, respiratory effort is normal. CARDIOVASCULAR: Grade 2/63/6 systolic murmur heard best along the left sternal border. GI/ABD: soft without masses, without organomegaly. Scant bowel sounds NEURO: No focal deficits. SKIN: color normal, no rashes noted. HEME/LYMPH: no bruising, petechia or significant adenopathy MUSC: back is normal in appearance. Right leg is normal in appearance, left leg shows some swelling around the left knee and in particular pitting edema of the left lower extremity which is larger in size than the right. Veins are more prominent. PSYCH/MENTAL STATUS: Alert and oriented x 3. A/P Assessment and Plan 65 y/o male with history of DM and osteomyelitis presents with left leg pain as well as GI bleed, diabetes mellitus. Found to have anemia and JOSE. Will admit for workup of left knee pain for possible osteomyelitis vs sepic arthritis versus Santo cyst versus osteoarthritis. Await GI consult as well as nephrology input. Attending Attestation Patient seen and examined. Case reviewed and discussed with the resident team. Agree with plan of care as discussed with me and documented in the resident note. Problem List: (1) Knee pain, acute Status: Acute Plan: Ddx: Osteomyelitis, septic arthritis, cellulitis, gout Afebrile, WBC mildly elevated at 11.3, 12% bands. ESR>140. CRP 26.4. Lactic acid 2.0 On exam, no significant effusion, some adjacent cellulitis, left knee is warm to touch. ED attempted arthrocentesis, with no aspiration of any fluid. POC ultrasound didn't demonstrate any effusion. ED physician discussed case with Dr. Phillips, carbon accountant for orthopedics, who recommended MRI and to follow-up up results with him. Given Vanc & Cefepime in ED. Will continue for prophylactic coverage of osteomyelitis and cover possible cellulitis -Continue Vanc (05/14- ), consult pharmacy -Continue Cefepime (05/14- ) -MRI pending -Will discuss results with Dr. Phillips and place formal consult if needed at that time. -Diet nothing by mouth for any possible intervention. -Tylenol, Zofran PRN -Maintenance fluids -Troponin pending (2) JOSE (acute kidney injury) Status: Acute Plan: Ddx includes pre-renal (dehydration/hypovolemia, sepsis) vs renal (ATN); BUN/creatinine ratio is 19.1 Patient with decreased eating and drinking. Patient also presents with anemia and Hemoccult-positive. Baseline Cr is 0.83 from 2 years ago, admission Cr is 5.38. BUN is 103. No AMS presently but monitor closely for symptoms. K is 5.0. Tele to monitor for arrhythmias. Lactic acid 2.0. Phos is 3.6. High phos will be treated with calcium acetate. BUN: CR ratio is on border prerenal/intrarenal. -NS at 125 mls/hr -Strict I/Os -U/A pending -Recheck BMP this evening. -Daily BMPs (3) Anemia Status: Acute Plan: DDx: gastric/duodenal ulcer, diverticulosis, colorectal cancer, polyps, IBD, hemorrhoids. No history of ulcers or blood thinners. Has some recent NSAID use and history of alcohol abuse. No recent unintentional wt. loss. No reported hematemesis. Hx not consistent with bleeding crisis-no bright red blood; bleeding described as slow/low volume. No dizziness. BP WNLs and not tachycardic. Hemoccult in ED positive. H/H on admission was 6.8/20.6. BUN/Cr ratio 19, suggestive of upper GI bleed. PT 13.4 -Protonix 40 mg IV BID -Transfusing 1 unit pRBC, monitor post-transfusion H/H -Consult GI: appreciate recs; NPO until pt. evaluated. -Fall precautions. Supplemental O2 PRN. Pulse Ox. -CBC, BMP in AM -Hold all anticoagulation (Coumadin, Plavix, Aspirin). SCDs for DVT prophylaxis. (4) Diabetes mellitus Status: Acute Plan: Hold home metformin and glipizide -Low-dose sliding scale while inpatient. (5) Asthma Status: Acute Plan: -Continue home inhaler, Advair -Albuterol PRN (6) Alcohol abuse Status: Acute Plan: Drinks several beers/night. Denies alcohol withdrawals. No seizures in past. -Rally pack -CIWA protocol (7) FEN Status: Acute Plan: Fluids: NS @ 125mls/hr Electrolytes: hyponatremia; continue to monitor Nutrition: NPO for possible intervention DVT ppx: SCDs, chemoppx contraindicated due to GIB GI ppx: Protonix Problem Qualifiers (1) Knee pain, acute: Qualified Code: M25.562 - Acute pain of left knee (2) Anemia: Qualified Code: D64.9 - Anemia, unspecified type (3) Diabetes mellitus: Qualified Code: E11.8 - Type 2 diabetes mellitus with complication, without long-term current use of insulin (4) Asthma: Qualified Code: J45.909 - Uncomplicated asthma, unspecified asthma severity Jennifer Chirinos MD May 15, 2016 12:23
--- NOTE | 2016-05-15 12:27 | PD.CONS ---
HPI Service Nephrology Reason for Consult JOSE Primary Care Physician Non-Staff History of Present Illness The ismael is a 65 yo [place] male who presented to this facility on 05/14 with complaints of continued L knee pain. Pt lethargic and not providing me with any information. Family not present. Information obtained from previous medical record. Was seen at [facility] ED on 05/11 with same complaint and was suspected at that point that he had septic arthritis and was prescribed Ibuprofen and Clindamycin. He has a PMHx of osteomyelitis with R great toe amputation in the past. It does not appear that he has any PMHx of CKD, but last labs that I see are from 2014. SCr baseline at that time as 0.8-0.9. Admitting SCr 5.38 at that improved slightly to 5.28 at consult. (Nini Ahumada) Review of Systems Musculoskeletal: COMPLAINS OF: Joint pain, Joint Swelling (Nini Ahumada ) Past Family Social History Allergies: Coded Allergies: No Known Allergies (Unverified , 05/14/16) Past Medical History DM Asthma Osteomyelitis Past Surgical History R great toe amputation R knee arthroscopy Reported Medications Reported Meds & Active Scripts Active Ibuprofen 800 Mg Tab 800 Mg PO TID Cleocin (Clindamycin HCl) 150 Mg Cap 450 Mg PO Q6H 7 Days Reported Advair Diskus Inh (Fluticasone-Salmeterol Inh) 100-50 Mcg/Blist Aer 1 Puff INH BID Rinse mouth after use. Ventolin Hfa 18 GM Inh (Albuterol Sulfate) 90 Mcg/Act Aer 2 Puff INH Q4-6H PRN Metformin (Metformin HCl) 500 Mg Tab 500 Mg PO DIRECTED With meals Magnesium Oxide 400 Mg Tab 400 Mg PO BID Glipizide 5 Mg Tab 5 Mg PO DAILY Take 30 minutes before a meal Aspirin Low Dose (Aspirin) 81 Mg Chew 81 Mg CHEW DAILY Active Ordered Medications Current Medications Medications (Trade) Dose Ordered Sig/Irene Route Start Time Stop Time Status Last Admin (NS 1000 ml Inj) 1,000 ml @ 125 mls/hr Q8H IV 05/14/16 18:00 05/15/16 06:51 (NS Flush) 2 ml UNSCH PRN IV FLUSH 05/14/16 17:30 (NS Flush) 2 ml BID IV FLUSH 05/14/16 21:00 05/15/16 09:47 (Tylenol) 650 mg Q4H PRN PO 05/14/16 17:30 (Zofran Inj) 4 mg Q6H PRN IVP 05/14/16 17:30 (Narcan Inj) 0.4 mg UNSCH PRN IV 05/14/16 17:30 (Symbicort 80-4.5 Mcg Inh) 2 puff BID INH 05/14/16 21:00 05/15/16 09:46 (D50w (Vial) Inj) 25 ml UNSCH PRN IV PUSH 05/14/16 17:45 Glucagon 1 mg 1 mg UNSCH PRN OTHER 05/14/16 17:45 (Maxipime Inj/NS Inj) 100 ml @ 200 mls/hr Q24H IV 05/15/16 17:00 (Catapres) 0.1 mg Q6H PRN PO 05/14/16 19:00 (Romazicon Inj) 0.2 mg Q1M PRN IV PUSH 05/14/16 20:00 (Ativan) 1 mg Q4H PRN PO 05/14/16 20:00 (Ativan Inj) 1 mg Q4H PRN IV PUSH 05/14/16 20:00 (Ativan) 2 mg Q2H PRN PO 05/14/16 20:00 (Ativan Inj) 2 mg Q2H PRN IV PUSH 05/14/16 20:00 (Ativan Inj) 2 mg Q1H PRN IV PUSH 05/14/16 20:00 (Ativan Inj) 2 mg Q15M PRN IV PUSH 05/14/16 20:00 Pantoprazole Sodium 40 mg 40 mg BID IV PUSH 05/15/16 07:30 05/15/16 09:46 Sodium Chloride 250 ml @ 15 mls/hr ONCE ONCE IV 05/15/16 09:00 05/16/16 01:39 (Zyvox 600 Mg Premix) 300 ml @ 300 mls/hr Q12H IV 05/15/16 09:15 05/15/16 09:52 Family History In charts mentions brother with kidney failure. Social History Previous tobacco use Drinks 3-6 beers daily Denies illicits (Nini Ahumada) Physical Exam Vital Signs Vital Signs Date Time Temp Pulse Resp B/P Pulse Ox O2 Delivery O2 Flow Rate FiO2 05/15/16 10:08 94 21 05/15/16 08:00 97.4 89 22 135/62 98 05/15/16 04:00 97.5 93 18 150/65 97 05/15/16 01:03 96 05/15/16 00:45 97.5 89 18 130/63 98 05/14/16 20:30 97.5 87 18 119/56 96 05/14/16 19:10 98.5 92 18 145/61 99 05/14/16 18:45 98.1 76 17 136/62 99 Room Air 05/14/16 18:30 98.2 77 16 136/62 98 Room Air 05/14/16 15:10 84 16 05/14/16 15:08 97.6 81 16 154/69 96 Physical Exam GENERAL: Lethagic. Rouses when spoken to but goes immediately back to sleep. SKIN: Warm and dry. HEAD: Atraumatic. Normocephalic. EYES: Pupils equal and round. No scleral icterus. No injection or drainage. ENT: No nasal bleeding or discharge. Mucous membranes pink and moist. NECK: Trachea midline. No JVD. CARDIOVASCULAR: Regular rate and rhythm. RESPIRATORY: No accessory muscle use. Clear to auscultation. Breath sounds equal bilaterally. GASTROINTESTINAL: Abdomen soft, non-tender, nondistended. Hepatic and splenic margins not palpable. MUSCULOSKELETAL: Extremities without clubbing, cyanosis, or edema. No obvious deformities. NEUROLOGICAL: Lethargic PSYCHIATRIC: Lethargic Laboratory Laboratory Tests Test 05/14/16 05/14/16 05/14/16 05/14/16 15:20 16:10 17:00 17:19 White Blood Count 11.3 Red Blood Count 2.09 Hemoglobin 6.8 Hematocrit 20.6 Mean Corpuscular Volume 98.4 Mean Corpuscular Hemoglobin 32.5 Mean Corpuscular Hemoglobin 33.0 Concent Red Cell Distribution Width 14.7 Platelet Count 104 Mean Platelet Volume 8.2 Neutrophils (%) (Auto) 80.8 Lymphocytes (%) (Auto) 5.5 Monocytes (%) (Auto) 10.5 Eosinophils (%) (Auto) 2.9 Basophils (%) (Auto) 0.3 Neutrophils # (Auto) 9.1 Lymphocytes # (Auto) 0.6 Monocytes # (Auto) 1.2 Eosinophils # (Auto) 0.3 Basophils # (Auto) 0.0 CBC Comment AUTO DIFF Differential Total Cells 100 Counted Neutrophils % (Manual) 68 Band Neutrophils % 12 Lymphocytes % 9 Monocytes % 9 Eosinophils % 2 Neutrophils # (Manual) 9.0 Differential Comment FINAL DIFF MANUAL Toxic Granulation 1+ Toxic Vacuolation PRESENT Platelet Estimate LOW Platelet Morphology Comment NORMAL Ovalocytes 1+ Erythrocyte Sedimentation Rate GREATER THAN 140 Sodium Level 132 Potassium Level 5.0 Chloride Level 99 Carbon Dioxide Level 19.1 Anion Gap 14 Blood Urea Nitrogen 103 Creatinine 5.38 Estimat Glomerular Filtration 11 Rate Random Glucose 245 Calcium Level 7.3 Protein Corrected Calcium 7.8 Total Bilirubin 1.2 Aspartate Amino Transf 19 (AST/SGOT) Alanine Aminotransferase 13 (ALT/SGPT) Alkaline Phosphatase 106 C-Reactive Protein 26.40 Total Protein 6.1 Albumin 1.7 Ethyl Alcohol Level LESS THAN 3 Prothrombin Time 13.4 Prothromb Time International 1.2 Ratio Activated Partial 38.5 Thromboplast Time Blood Type A POSITIVE Antibody Screen NEGATIVE Blood Bank Comment Lactic Acid Level 2.0 Crossmatch Leukocyte-Reduced Red Blood Cells Test 05/14/16 05/14/16 05/14/16 05/15/16 17:46 17:48 23:18 00:55 Blood Type A POSITIVE Phosphorus Level 3.6 Magnesium Level 2.7 Troponin I LESS THAN 0.02 Urine Color YELLOW Urine Turbidity HAZY Urine pH 5.5 Urine Specific Mayer 1.012 Urine Protein 30 Urine Glucose (UA) 70 Urine Ketones NEG Urine Occult Blood MOD Urine Nitrite NEG Urine Bilirubin NEG Urine Urobilinogen LESS THAN 2.0 Urine Leukocyte Esterase NEG Urine RBC Urine WBC 16 Urine WBC Clumps FEW Urine Bacteria RARE Urine Mucus FEW Urine Yeast (Budding) RARE Microscopic Urinalysis Comment CULTURE INDICATED Hemoglobin 7.4 Hematocrit 21.3 Sodium Level 134 Potassium Level 5.0 Chloride Level 103 Carbon Dioxide Level 16.4 Anion Gap 15 Blood Urea Nitrogen 121 Creatinine 5.37 Estimat Glomerular Filtration 11 Rate Random Glucose 317 Calcium Level 7.2 Protein Corrected Calcium 7.8 Total Protein 6.0 Lipase 344 Test 05/15/16 05/15/16 08:14 08:55 White Blood Count 10.1 Red Blood Count 2.15 Hemoglobin 7.0 Hematocrit 20.7 Mean Corpuscular Volume 96.3 Mean Corpuscular Hemoglobin 32.4 Mean Corpuscular Hemoglobin 33.7 Concent Red Cell Distribution Width 18.5 Platelet Count 101 Mean Platelet Volume 7.9 Neutrophils (%) (Auto) 83.7 Lymphocytes (%) (Auto) 5.5 Monocytes (%) (Auto) 9.9 Eosinophils (%) (Auto) 0.5 Basophils (%) (Auto) 0.4 Neutrophils # (Auto) 8.4 Lymphocytes # (Auto) 0.6 Monocytes # (Auto) 1.0 Eosinophils # (Auto) 0.1 Basophils # (Auto) 0.0 CBC Comment DIFF FINAL Differential Comment Sodium Level 136 Potassium Level 4.6 Chloride Level 106 Carbon Dioxide Level 16.2 Anion Gap 14 Blood Urea Nitrogen 120 Creatinine 5.28 Estimat Glomerular Filtration 11 Rate Random Glucose 341 Calcium Level 7.1 Protein Corrected Calcium 7.7 Magnesium Level 2.7 Total Bilirubin 1.6 Aspartate Amino Transf 17 (AST/SGOT) Alanine Aminotransferase 14 (ALT/SGPT) Alkaline Phosphatase 91 Total Protein 6.0 Albumin 1.7 Random Vancomycin Level 20.8 Blood Type A POSITIVE Crossmatch Leukocyte-Reduced Red Blood Cells Blood Bank Comment Date/Time Procedure Status Source Growth 05/14/16 23:18 Urine Culture Received Urine Clean Catch Pending 05/14/16 15:20 Aerobic Blood Culture - Preliminary Resulted Blood Peripheral NO GROWTH IN 1 DAY 05/14/16 15:20 Anaerobic Blood Culture - Preliminary Resulted Blood Peripheral NO GROWTH IN 1 DAY (Nini Ahumada) Result Diagram: 05/15/16 0814 05/15/16 0814 Imaging Last Impressions Lower Extremity Ultrasound 05/15/16 0000 Signed Impressions: Service Date/Time: Sunday, May 15, 2016 08:41 - CONCLUSION: 1. No evidence of lower extremity DVT on the right or left. 2. Elongated fluid in the proximal to mid left calf. The rectal diagnosis is muscle tear versus dissecting Santo cyst. 3. 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 Get Franco MD Knee X-Ray 05/14/16 0000 Signed Impressions: Service Date/Time: Saturday, May 14, 2016 15:44 - CONCLUSION: Negative for fracture or dislocation. Follow up in 7-10 days is suggested if symptoms persist. Alexy Padron MD FACR (Nini Ahumada) Assessment and Plan Problem List: (1) Acute renal failure Plan: Potentially from volume depletion given hx of poor oral intake. He has also been on Ibuprofen which could have caused acute renal failure. Agree with IVF May have some degree of CKD given his PMHx, but this is uncertain. Renal US reviewed and showed no evidence of urological obstruction as well as no increased echogenicity which is sometimes seen with CKD. He is severely anemic and has hypoalbuminemia. UA shows RBCs and protein. Will order serology. Await GI consult (2) Acidosis Plan: Start po bicarb supplement. Monitor. (3) Anemia Plan: w/u underway with GI. As above, will check serology (4) Diabetes mellitus Plan: Mgmt as per primary team (5) Pain of left calf Plan: Potential muscle tear as per US report. No evidence of DVT (6) Cirrhosis Plan: Suggested by imaging reports. (Nini Ahumada) Assessment and Plan The exam, history, and the medical decision-making described in the above note were completed with the assistance of the PA-C. I reviewed and agree with the findings presented. I attest that I had a [id number] encounter with the patient on the same day, and personally performed and documented my assessment and findings in the medical record. Hopefully the patient's renal indices will improve with hydration otherwise patient may have progressed to an acute kidney injury. (Vero Johnson MD) Problem Qualifiers (1) Anemia: Qualified Code: D64.9 - Anemia, unspecified type (2) Diabetes mellitus: Qualified Code: E11.8 - Type 2 diabetes mellitus with complication, without long-term current use of insulin Nini Ahumada May 15, 2016 12:27 Vero Johnson MD May 15, 2016 20:02
--- NOTE | 2016-05-15 12:29 | PD.CONS ---
HPI History of Present Illness This is a 65 year old male patient who came to the ER for evaluation of left knee pain. The patient is a poor historian. He is extremely lethargic and unable to provide very much history, despite the fact that he is oriented to person, place, and month. However, he cannot tell me why he is in the hospital. He was hospitalized for left knee pain with elevated ESR at >140 and CRP at 26.40. Orthopaedics are following and the workup is in progress. He was also noted to have acute renal failure and the nephrology service has been consulted. GI has been consulted for anemia with hemoccult positive stool. Again the patient is a poor historian. He denies any nausea, vomiting, heartburn, weight loss, decreased appetite, abdominal pain, or bowel changes. However, he does have some mild epigastric tenderness and the nurse reports that he had a large melanotic stool earlier today. He denies any hx of PUD. He denies any hx of GI Bleeding and denies the use of NSAIDS, although according to EMR, he was taking Ibuprofen 800mg po TID at home. He reports that he had a colonoscopy in the past, but cannot state when. On admission, he was noted to have HH 6.8/20.6 and he has received one unit of PRBC. He was also noted to have a creatinine of 5.38. His vital signs are stable. He has not yet been seen by nephrology. 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 S/P amputation. Hx alcoholism Past Surgical History Right 2nd digit, S/P amputation. History of right knee infection requiring open I&D many years ago (Sumi Sweeney) Coded Allergies: No Known Allergies (Unverified , 05/14/16) Medications Allergies Coded Allergies Type Severity Reaction Last Updated Verified No Known Allergies 05/14/16 No Active Scripts Medications Dose Route/Sig Days Date Category Dose Instructions Ibuprofen 800 Mg Tab 800 Mg PO TID 05/11/16 Rx Cleocin (Clindamycin HCl) 150 Mg Cap 450 Mg PO Q6H 7 05/11/16 Rx Advair Diskus Inh (Fluticasone-Salmeterol Inh) 100-50 Mcg/Blist Aer 1 Puff INH BID 05/11/16 Reported Rinse mouth after use. Ventolin Hfa 18 GM Inh (Albuterol Sulfate) 90 Mcg/Act Aer 2 Puff INH Q4-6H PRN 05/11/16 Reported Metformin (Metformin HCl) 500 Mg Tab 500 Mg PO DIRECTED 05/11/16 Reported With meals Magnesium Oxide 400 Mg Tab 400 Mg PO BID 05/11/16 Reported Glipizide 5 Mg Tab 5 Mg PO DAILY 05/11/16 Reported Take 30 minutes before a meal Aspirin Low Dose (Aspirin) 81 Mg Chew 81 Mg CHEW DAILY 05/11/16 Reported Family History Unable to obtain. Social History Hx of alcohol abuse. Pt denies any recent drinking. Smoked tobacco for approximately 4 years, quit in 1971 Denies any other illicit drug use (Sumi Sweeney) Review of Systems Constitutional: COMPLAINS OF: Fatigue, DENIES: Weight loss, Change in appetite Respiratory: DENIES: Cough Cardiovascular: DENIES: Chest pain Gastrointestinal: COMPLAINS OF: Black stools, DENIES: Abdominal pain, Bloody stools, Constipation, Diarrhea, Nausea, Vomiting, Heartburn, Hematemesis Musculoskeletal: COMPLAINS OF: Joint pain Integumentary: DENIES: Abnormal pigmentation Psychiatric: COMPLAINS OF: Confusion (Sumi Sweeney) GI Exam Vitals I&O Vital Signs Date Time Temp Pulse Resp B/P Pulse Ox O2 Delivery O2 Flow Rate FiO2 05/15/16 10:08 94 21 05/15/16 08:00 97.4 89 22 135/62 98 05/15/16 04:00 97.5 93 18 150/65 97 05/15/16 01:03 96 05/15/16 00:45 97.5 89 18 130/63 98 05/14/16 20:30 97.5 87 18 119/56 96 05/14/16 19:10 98.5 92 18 145/61 99 05/14/16 18:45 98.1 76 17 136/62 99 Room Air 05/14/16 18:30 98.2 77 16 136/62 98 Room Air 05/14/16 15:10 84 16 05/14/16 15:08 97.6 81 16 154/69 96 I/O 05/14/16 05/14/16 05/14/16 05/15/16 05/15/16 05/15/16 07:00 15:00 23:00 07:00 15:00 23:00 Output Total 200 ml Balance -200 ml Output Urine Total 200 ml # Bowel Movements 1 3 Imaging Last Impressions Lower Extremity Ultrasound 05/15/16 0000 Signed Impressions: Service Date/Time: Sunday, May 15, 2016 08:41 - CONCLUSION: 1. No evidence of lower extremity DVT on the right or left. 2. Elongated fluid in the proximal to mid left calf. The rectal diagnosis is muscle tear versus dissecting Santo cyst. 3. 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 Get Franco MD Knee X-Ray 05/14/16 0000 Signed Impressions: Service Date/Time: Saturday, May 14, 2016 15:44 - CONCLUSION: Negative for fracture or dislocation. Follow up in 7-10 days is suggested if symptoms persist. Alexy Padron MD FACR Laboratory Test 05/14/16 05/14/16 05/14/16 05/14/16 15:20 16:10 17:00 17:19 White Blood Count 11.3 TH/MM3 Red Blood Count 2.09 MIL/MM3 Hemoglobin 6.8 GM/DL Hematocrit 20.6 % Mean Corpuscular Volume 98.4 FL Mean Corpuscular Hemoglobin 32.5 PG Mean Corpuscular Hemoglobin 33.0 % Concent Red Cell Distribution Width 14.7 % Platelet Count 104 TH/MM3 Mean Platelet Volume 8.2 FL Neutrophils (%) (Auto) 80.8 % Lymphocytes (%) (Auto) 5.5 % Monocytes (%) (Auto) 10.5 % Eosinophils (%) (Auto) 2.9 % Basophils (%) (Auto) 0.3 % Neutrophils # (Auto) 9.1 TH/MM3 Lymphocytes # (Auto) 0.6 TH/MM3 Monocytes # (Auto) 1.2 TH/MM3 Eosinophils # (Auto) 0.3 TH/MM3 Basophils # (Auto) 0.0 TH/MM3 CBC Comment AUTO DIFF Differential Total Cells 100 Counted Neutrophils % (Manual) 68 % Band Neutrophils % 12 % Lymphocytes % 9 % Monocytes % 9 % Eosinophils % 2 % Neutrophils # (Manual) 9.0 TH/MM3 Differential Comment FINAL DIFF MANUAL Toxic Granulation 1+ Toxic Vacuolation PRESENT Platelet Estimate LOW Platelet Morphology Comment NORMAL Ovalocytes 1+ Erythrocyte Sedimentation Rate GREATER THAN 140 mm/hr Sodium Level 132 MEQ/L Potassium Level 5.0 MEQ/L Chloride Level 99 MEQ/L Carbon Dioxide Level 19.1 MEQ/L Anion Gap 14 MEQ/L Blood Urea Nitrogen 103 MG/DL Creatinine 5.38 MG/DL Estimat Glomerular Filtration 11 ML/MIN Rate Random Glucose 245 MG/DL Calcium Level 7.3 MG/DL Protein Corrected Calcium 7.8 MG/DL Total Bilirubin 1.2 MG/DL Aspartate Amino Transf 19 U/L (AST/SGOT) Alanine Aminotransferase 13 U/L (ALT/SGPT) Alkaline Phosphatase 106 U/L C-Reactive Protein 26.40 MG/DL Total Protein 6.1 GM/DL Albumin 1.7 GM/DL Ethyl Alcohol Level LESS THAN 3 MG/DL Prothrombin Time 13.4 SEC Prothromb Time International 1.2 RATIO Ratio Activated Partial 38.5 SEC Thromboplast Time Blood Type A POSITIVE Antibody Screen NEGATIVE Blood Bank Comment Lactic Acid Level 2.0 mmol/L Crossmatch Leukocyte-Reduced Red Blood Cells Test 05/14/16 05/14/16 05/14/16 05/15/16 17:46 17:48 23:18 00:55 Blood Type A POSITIVE Phosphorus Level 3.6 MG/DL Magnesium Level 2.7 MG/DL Troponin I LESS THAN 0.02 NG/ML Urine Color YELLOW Urine Turbidity HAZY Urine pH 5.5 Urine Specific [place] 1.012 Urine Protein 30 mg/dL Urine Glucose (UA) 70 mg/dL Urine Ketones NEG mg/dL Urine Occult Blood MOD Urine Nitrite NEG Urine Bilirubin NEG Urine Urobilinogen LESS THAN 2.0 MG/DL Urine Leukocyte Esterase NEG Urine RBC /hpf Urine WBC 16 /hpf Urine WBC Clumps FEW Urine Bacteria RARE /hpf Urine Mucus FEW /lpf Urine Yeast (Budding) RARE Microscopic Urinalysis Comment CULTURE INDICATED Hemoglobin 7.4 GM/DL Hematocrit 21.3 % Sodium Level 134 MEQ/L Potassium Level 5.0 MEQ/L Chloride Level 103 MEQ/L Carbon Dioxide Level 16.4 MEQ/L Anion Gap 15 MEQ/L Blood Urea Nitrogen 121 MG/DL Creatinine 5.37 MG/DL Estimat Glomerular Filtration 11 ML/MIN Rate Random Glucose 317 MG/DL Calcium Level 7.2 MG/DL Protein Corrected Calcium 7.8 MG/DL Total Protein 6.0 GM/DL Lipase 344 U/L Test 05/15/16 05/15/16 08:14 08:55 White Blood Count 10.1 TH/MM3 Red Blood Count 2.15 MIL/MM3 Hemoglobin 7.0 GM/DL Hematocrit 20.7 % Mean Corpuscular Volume 96.3 FL Mean Corpuscular Hemoglobin 32.4 PG Mean Corpuscular Hemoglobin 33.7 % Concent Red Cell Distribution Width 18.5 % Platelet Count 101 TH/MM3 Mean Platelet Volume 7.9 FL Neutrophils (%) (Auto) 83.7 % Lymphocytes (%) (Auto) 5.5 % Monocytes (%) (Auto) 9.9 % Eosinophils (%) (Auto) 0.5 % Basophils (%) (Auto) 0.4 % Neutrophils # (Auto) 8.4 TH/MM3 Lymphocytes # (Auto) 0.6 TH/MM3 Monocytes # (Auto) 1.0 TH/MM3 Eosinophils # (Auto) 0.1 TH/MM3 Basophils # (Auto) 0.0 TH/MM3 CBC Comment DIFF FINAL Differential Comment Sodium Level 136 MEQ/L Potassium Level 4.6 MEQ/L Chloride Level 106 MEQ/L Carbon Dioxide Level 16.2 MEQ/L Anion Gap 14 MEQ/L Blood Urea Nitrogen 120 MG/DL Creatinine 5.28 MG/DL Estimat Glomerular Filtration 11 ML/MIN Rate Random Glucose 341 MG/DL Calcium Level 7.1 MG/DL Protein Corrected Calcium 7.7 MG/DL Magnesium Level 2.7 MG/DL Total Bilirubin 1.6 MG/DL Aspartate Amino Transf 17 U/L (AST/SGOT) Alanine Aminotransferase 14 U/L (ALT/SGPT) Alkaline Phosphatase 91 U/L Total Protein 6.0 GM/DL Albumin 1.7 GM/DL Random Vancomycin Level 20.8 COMMENT Blood Type A POSITIVE Crossmatch Leukocyte-Reduced Red Blood Cells Blood Bank Comment Date/Time Procedure Status Source Growth 05/14/16 23:18 Urine Culture Received Urine Clean Catch Pending 05/14/16 15:20 Aerobic Blood Culture - Preliminary Resulted Blood Peripheral NO GROWTH IN 1 DAY 05/14/16 15:20 Anaerobic Blood Culture - Preliminary Resulted Blood Peripheral NO GROWTH IN 1 DAY Physical Examination HEENT: Normocephalic; atraumatic; no jaundice. CHEST: Chest is clear to auscultation and percussion. CARDIAC: RRR ABDOMEN: Soft, nondistended, mild epigastric tenderness; no hepatosplenomegaly ; bowel sounds are present in all four quadrants. EXTREMITIES: No clubbing, cyanosis, or edema. SKIN: Normal; no rash; no jaundice. MEDICAL BILLING MANAGER: Lethargic, drifts to sleep between questions. (Sumi Sweeney) Assessment and Plan Plan ASSESSMEN:T - Anemia. Hemoccult positive stool with a epigastric pain, melenotic stool, and recent Ibuprofen use. On admission, he was noted to have HH 6.8/20.6 and he has received one unit of PRBC. Pt is a poor historian and it is difficult to obtain information from him, as he drifts back to sleep and not answering many questions. He denies GI symptoms, but has mild epigastric tenderness on exam and the nurse reports a melanotic stool. PPI. - Elevated LFT. T. Bili 1.6. He has a hx of heavy alcohol use. Will order GI workup. - JOSE. Creat 5.28. Nephrology consulted. - Left knee pain with elevated ESR at >140 and CRP at 26.40. Orthopaedics are following and the workup is in progress. - Metabolic encephalopathy. Will check ammonia, but this may also be related to his acute renal failure. PLAN: - Plan for egd in am - Obtain consents - Clear liquids - NPO after MN - Cont. PPI - Monitor HH - Transfuse as necessary - Order liver workup - Supportive care - Further recommendations to follow based on results of above - PT seen and examined by Dr. Muse and myself and this note is written on his behalf (Sumi Sweeney) Physician Comments Patient seen and examined Agree with above Continue with current supportive care Monitor labs Plan EGD tomorrow Liver workup in progress (Amandeep Muse MD) Sumi Sweeney May 15, 2016 12:29 Amandeep Muse MD May 15, 2016 22:35
[2016-05-15] MEDS: SODIUM BICARBONATE 650 MG TAB PO SCH ×2 (12:54→21:03)
[2016-05-15] MEDS ORDERED: ACETAMINOPHEN 1000 MG/100 ML VIAL IV ONE (14:00)
[2016-05-15] MEDS ORDERED: CEFEPIME INJ 1,000 MG in SODIUM CHLORIDE 0.9% INJ 100 ML IV SCH (17:00)
[2016-05-15 17:31] LABS: TRANSFERRIN IRON PROFILE 111 MG/DL (200-360)
[2016-05-15 17:34] LABS: FERRITIN 582 NG/ML (26-388); TRANSFERRIN IRON PROFILE 105 MG/DL (200-360)
[2016-05-15 17:37] LABS: HEMOGLOBIN A1a 1.8 %; HEMOGLOBIN Ao 79.7 %; HEMOGLOBIN F 3.4 %; HEMOGLOBIN LA1C 3.3 %; HEMOGLOBIN P3 4.9 %
--- NOTE | 2016-05-15 17:58 | RADRPT ---
EXAM DATE/TIME: 05/15/2016 16:51 [facility] COMPARISON: No previous studies available for comparison. INDICATIONS : Osteomyelitis. Swelling of left knee. MEDICAL HISTORY : Diabetes mellitus type 2. SURGICAL HISTORY : Right knee surgery. Toes amputated. ENCOUNTER: Subsequent ACUITY: 2 day PAIN SCORE: 3/10 LOCATION: Left knee. TECHNIQUE: Multiplanar, multisequence MRI examination was performed without contrast. FINDINGS: CRUCIATE LIGAMENTS: ACL and PCL are intact. MENISCI: Linear intermediate signal within the body of the medial meniscus that contacts the inferior surface on multiple coronal proton density images indicating a horizontal tear. Lateral meniscus is intact. COLLATERAL LIGAMENTS: MCL and LCL complexes are intact. BONE/CARTILAGE: Moderate severity medial facet patellar articular cartilage thinning. Mild nonspecific reactive bony edema diffusely in the patella. No evidence of focal bone erosion. MISCELLANEOUS: Small joint effusion. Superior patellar enthesophytes. Low signal soft tissue thickening anterior to the patella suggesting chronic bursitis. There is minimal edema and fluid in this region. Patellar te ndon is intact. The there is a small Santo's cyst but prominent amount of fluid tracking inferiorly f rom the area Santo's cyst between the gastrocnemius and soleus muscles medially. CONCLUSION: 1. Prominent edema in the medial calf with prominent fluid signal between the medial gastrocnemius an d soleus muscles. Differential diagnosis is ruptured Santo cyst versus muscle strain. No fluid-filled gap in muscle fibers is seen. There is also adjacent superficial soft tissue edema in this region. 2. Small horizontal tear of the body of the medial meniscus. 3. Small joint effusion. 4. Mild reactive bony edema in the patella. 5. No evidence of osteomyelitis. 6. Moderate focal medial facet patellar chondromalacia. Get Franco MD on May 15, 2016 at 17:46 Board Certified Radiologist. This report was verified electronically.
[2016-05-15] MEDS ORDERED: PANTOPRAZOLE SODIUM 40 MG VIAL IV PUSH SCH (18:00)
[2016-05-15 18:28] LABS: HEMATOCRIT 21.4 % (39.0-51.0); REVIEW FLAG FINAL
[2016-05-15] MEDS ORDERED: ACETAMINOPHEN 325 MG TAB PO PRN (20:00)
[2016-05-15] MEDS ORDERED: INSULIN DETEMIR 100 UNITS/ML VIAL SQ SCH (21:00)
[2016-05-15 21:19] LABS: BICARBONATE 15.9 MEQ/L (21.0-32.0); POTASSIUM 3.7 MEQ/L (3.5-5.1)
[2016-05-15 21:36] LABS: CALCIUM-PROTEIN CORRECTED 7.7 MG/DL (8.5-10.1)
--- NOTE | 2016-05-15 22:02 | EKG ---
Date Performed: 05/14/2016 Time Performed: 15:11:43 PTAGE: 65 years EKG: Sinus rhythm MARKED LEFT AXIS DEVIATION POSSIBLE LATERAL MYOCARDIAL INFARCTION Since previous tracing, no signifi cant change noted ABNORMAL ECG PREVIOUS TRACING : 05/04/2014 14.39 DOCTOR: Tati Morrow Interpretating Date/Time 05/15/2016 22:01:43
[2016-05-15 22:35] LABS: IMMUNOGLOBULIN A 525 MG/DL (98-543); IMMUNOGLOBULIN G 1460 MG/DL (670-1650); IMMUNOGLOBULIN M 20 MG/DL (39-238); KAPPA LAMBDA RATIO 1.69 (1.57-3.93); LAMBDA LIGHT CHAIN 237 MG/DL (90-210)
[2016-05-16] VITALS (12 sets, daily range): BP systolic 111–157; BP diastolic 47–68; PULSE 80–105; RESP 15–20; TEMP 97.7–98.5; O2SAT 94–100
[2016-05-16] MEDS: SODIUM CHLOR 0.9% 1000 ML INJ 1,000 ML IV SCH ×3 (00:13→22:45)
[2016-05-16] MEDS: SODIUM CHLORID 0.9% 500 ML IV SCH ×2 (01:00→15:45)
[2016-05-16] MEDS ORDERED: LACTATED RINGER'S 1000 ML IV SCH (01:00)
[2016-05-16] MEDS: RESP: ALBUTEROL 2.5 MG/IPRATROPIUM 0.5 MG NEB (SCH) NEB ×4 (03:27→20:06)
[2016-05-16] MEDS: SODIUM BICARBONATE 650 MG TAB PO SCH ×3 (05:49→21:23)
[2016-05-16] MEDS: INSULIN ASPART SUPPLEMENTAL SCALE SQ SCH ×5 (05:53→21:00)
[2016-05-16 07:01] LABS: AUTOMATED NEUTROPHIL # 6.9 TH/MM3 (1.8-7.7); BASOPHIL % 0.3 % (0.0-2.0); EOSINOPHIL # 0.2 TH/MM3 (0-0.4); EOSINOPHIL % 2.7 % (0.0-4.0); LYMPH % 5.2 % (9.0-44.0); LYMPHOCYTE # 0.4 TH/MM3 (1.0-4.8); MEAN CELL VOLUME 93.4 FL (80.0-100.0); MEAN CORPUSCULAR HEMOGLOBIN 32.7 PG (27.0-34.0); MONO % 12.2 % (0.0-8.0); NEUT % 79.6 % (16.0-70.0); PLATELET COUNT 95 TH/MM3 (150-450); RED BLOOD COUNT 2.03 MIL/MM3 (4.50-5.90); RED CELL DISTRIBUTION WIDTH 19.3 % (11.6-17.2); WHITE BLOOD COUNT 8.6 TH/MM3 (4.0-11.0)
[2016-05-16 07:05] LABS: HEMO FLAGS AUTO DIFF
[2016-05-16 07:10] LABS: BICARBONATE 15.9 MEQ/L (21.0-32.0); POTASSIUM 3.6 MEQ/L (3.5-5.1)
[2016-05-16 07:38] LABS: CALCIUM-PROTEIN CORRECTED 7.9 MG/DL (8.5-10.1)
[2016-05-16 07:42] LABS: BANDS 12 % (0-6); BASOPHILS 1 % (0-2); EOSINOPHILS 4 % (0-4); MYELOCYTES 3 % (0-0); NEUTROPHIL # MANUAL DIFF 7.6 TH/MM3 (1.8-7.7); PLATELET ESTIMATE SMEAR LOW (NORMAL); PLATELET MORPHOLOGY NORMAL (NORMAL); POLYS (SEG NEUTROPHILS) 73 % (16-70); SCAN/DIFF FINAL DIFF MANUAL; TOXIC GRANULATION 1+ (NORMAL); WBC DIFF SAMPLE 100
[2016-05-16 07:43] LABS: OVALOCYTES 1+ (NORMAL); ROULEAUX PRESENT (NORMAL)
[2016-05-16] MEDS ORDERED: SODIUM CHLOR 0.9% 250 ML INJ 250 ML IV ONE ×2 (08:15→22:45)
[2016-05-16] MEDS: ACETAMINOPHEN 1000 MG/100 ML VIAL IV ONE (08:59)
[2016-05-16] MEDS: SODIUM CHLORIDE 0.9% FLUSH 10 ML FLUSH IV FLUSH SCH ×2 (09:00→21:00)
[2016-05-16] MEDS: LINEZOLID 600 MG PREMIX 300 ML IV SCH (09:00)
[2016-05-16] MEDS: BUDESONIDE-FORMOTEROL 80/4.5 MCG INHALER INH SCH (09:01)
[2016-05-16] MEDS: PANTOPRAZOLE SODIUM 40 MG VIAL IV PUSH SCH (09:02)
[2016-05-16] MEDS: INSULIN DETEMIR 100 UNITS/ML VIAL SQ SCH ×2 (09:06→21:00)
--- NOTE | 2016-05-16 09:10 | RADRPT ---
EXAM DATE/TIME: 05/16/2016 08:23 [facility] COMPARISON: No previous studies available for comparison. INDICATIONS : Short of breath. MEDICAL HISTORY : Osteomyelitis. Asthma. Diabetes. SURGICAL HISTORY : Right great and 2nd toe amputated. Right knee surgery. ENCOUNTER: Subsequent ACUITY: 4 - 6 days PAIN SCORE: 0/10 LOCATION: Bilateral chest FINDINGS: Heart is enlarged. Minimal bibasilar parenchymal changes are noted. There is no alveolar consolidat ion, pleural effusion or pneumothorax. Degenerative changes are seen about both shoulders. CONCLUSION: Compensated cardiomegaly with minimal bibasilar parenchymal changes . Alexy Padron MD FACR on May 16, 2016 at 9:01 Board Certified Radiologist. This report was verified electronically.
--- NOTE | 2016-05-16 09:48 | HHI.FPPN ---
Subjective Remarks No acute events overnight. Vital signs unremarkable except for tachycardia. This morning patient complains about being bothered overnight as well as SOB. She also reports that he has not had anything to drink over the last 4 days. He is also complaining of continued left leg pain. Overall patient is a very poor communicator and is unable to clearly specify his complaints in a logical manner. He is oriented to person and president but not to year. (Tri Rice MD R2) Objective Vitals Vital Signs Date Time Temp Pulse Resp B/P Pulse Ox O2 Delivery O2 Flow Rate FiO2 05/16/16 04:00 97.7 94 18 150/68 100 05/16/16 03:29 96 21 05/16/16 00:00 97.8 91 18 157/55 99 05/15/16 20:03 88 05/15/16 20:00 97.5 93 18 108/58 99 05/15/16 16:18 98 21 05/15/16 16:00 97.8 86 22 133/61 98 05/15/16 12:51 97.4 89 18 129/62 98 05/15/16 12:23 97.1 89 22 124/58 98 05/15/16 12:00 97.1 89 22 124/58 98 05/15/16 10:08 94 21 I/O 05/15/16 05/15/16 05/15/16 05/16/16 05/16/16 05/16/16 07:00 15:00 23:00 07:00 15:00 23:00 Intake Total 1436 ml 1350 ml 780 ml Output Total 400 ml 400 ml Balance 1436 ml 950 ml 380 ml Intake Oral 500 ml 0 ml IV Total 1186 ml 850 ml 780 ml Packed Cells 250 ml Output Urine Total 400 ml 400 ml # Voids 2 # Bowel Movements 3 2 2 0 (Tri Rice MD R2) Result Diagram: 05/16/16 0530 05/16/16 0530 Objective Remarks GEN: Well-developed, well-nourished patient. No acute distress. CV: Regular rate and rhythm without obvious murmurs LUNGS: Clear to auscultation bilaterally. Normal respiratory effort. No wheezes , rales, rhonchi. EXT: Left calf 1+ edema and tender to palpation. Erythematous. Left knee swelling. Left thigh and right leg unremarkable. NEURO/PSYCH: Awake, alert. Not oriented to year. Confused on sequence of events. Normal speech but poor insight into medical conditions. (Tri Rice MD R2) A/P Assessment and Plan 65 y/o male with history of DM and osteomyelitis presents with left leg pain as well as GI bleed, diabetes mellitus. Admitted for anemia and JOSE and left knee pain. Discharge Planning 2-4 days pending recovery of renal function and GI bleed sdw Dr. Chirinos (Tri Rice MD R2) Attending Attestation Patient seen and examined. Case reviewed and discussed with the resident team. Agree with plan of care as discussed with me and documented in the resident note. (Jennifer Chirinos MD) Problem List: (1) Knee pain, acute Status: Acute Plan: Likely due to muscle tear and/or Santo cyst rupture contributing to pain and associated edema. -Ortho consulted: Appreciate recommendations. Does not look like septic joint because there is no significant effusion. -Discontinued antibiotics (Vanc 05/14-; Linezolid 05/15-05/16; Cefepime 05/14-05/16 ) -Pain control with Tylenol PO/IV to not exceed 3000mg -would benefit for PT once acute pain and mental status improves. Imaging: * MRI: Prominent edema in the medial calf with prominent fluid signal between the medial gastrocnemius and soleus muscles. DDX is ruptured Santo cyst versus muscle strain. Small joint effusion. * LE ultrasound: No evidence of DVT. Elongated fluid in the proximal to mid left calf. DDX is muscle tear versus dissecting Santo cyst. 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 * Left knee XR: Negative for fracture or dislocation (2) JOSE (acute kidney injury) Status: Acute Plan: Ddx includes pre-renal (dehydration/hypovolemia, sepsis) vs renal (ATN). Concern for underlying CKD. Associated with decreased eating and drinking prior to presentation. Baseline Cr is 0.83 from 2 years ago, admission Cr is 5.38. Confusion likely due to uremia. -Renal function improving -discontinued cardiac telemetry as renal function has improved without electrolyte abnormality -Strict I/Os Nephrology consulted: appreciate recommendations * Serologies ordered * PO biocarb supplement Imaging: * Renal US: Kidneys unremarkable. Finding suggesting cirrhosis and portal venous HTN with varices and recanalized paraumbilical vein. (3) Anemia Status: Acute Plan: No history of ulcers or blood thinners. Has some recent NSAID use and history of alcohol abuse. DDx: gastric/duodenal ulcer, esophageal varices, diverticulosis, colorectal cancer, polyps, IBD, hemorrhoids.H/H on admission was 6.8/20.6. Admission BUN/Cr ratio 19, suggestive of upper GI bleed. -Tachycardia and SOB likely due to anemia. CXR unremarkable except for cardiomegaly. -Hemoccult in ED positive. -H&H remains slow s/p 2 PRBCs * repeat Hgb on 05/16 was 6.6, 2 more units ordered -echo ordered due to presence of cardiomegaly without a reported history GI consulted: appreciate recommendations * EGD today * liver workup ordered/pending Medications: * Protonix 40 mg IV BID * would likely benefit for propranolol 10mg TID but will wait until results of EGD to verification of esophageal varices * Hold all anticoagulation (Coumadin, Plavix, Aspirin) (4) Cirrhosis Status: Acute Plan: Significant alcohol history. Denies alcohol withdrawals. No seizures in past. Cirrhosis seen on Renal US with evident of portal venous HTN with varices. -Ammonia WNL -Rally pack -CIWA protocol See more details plan under anemia (5) Diabetes mellitus Status: Acute Plan: Hold home metformin and glipizide. A1c of 6.1, could be falsely low due to blood loss anemia -Low-dose sliding scale -Levemir 10units BID as blood glucose have been between 350-500 (6) Asthma Status: Acute Plan: -Continue home inhaler, Advair -Albuterol PRN (7) FEN Status: Acute Plan: Fluids: NS @ 125mls/hr Electrolytes: unremarkable; continue to monitor Nutrition: NPO for EGD, regular diet afterwards DVT ppx: SCDs/TEDs GI ppx: Protonix (Tri Rice MD R2) Problem Qualifiers (1) Knee pain, acute: Qualified Code: M25.562 - Acute pain of left knee (2) Anemia: Qualified Code: D64.9 - Anemia, unspecified type (3) Diabetes mellitus: Qualified Code: E11.8 - Type 2 diabetes mellitus with complication, without long-term current use of insulin (4) Asthma: Qualified Code: J45.909 - Uncomplicated asthma, unspecified asthma severity Tri Rice MD R2 May 16, 2016 09:48 Jennifer Chirinos MD May 16, 2016 13:40
[2016-05-16 11:00] LABS: INDIRECT BILIRUBIN 0.5 MG/DL (0.0-0.8); TOTAL BILIRUBIN ADULT 1.1 MG/DL (0.2-1.0)
[2016-05-16] MEDS ORDERED: ONDANSETRON HCL 4 MG/2 ML VIAL IV PUSH ONE (12:00)
[2016-05-16] MEDS ORDERED: PHENYLEPH/NS 1000 MCG/10 ML SYR IV ONE (12:00)
[2016-05-16] MEDS ORDERED: DO NOT ADM ANY ANTICOAGULANT DRUGS PRN (14:05)
--- NOTE | 2016-05-16 14:10 | GIPROC ---
[facility] [address]. [facility], [address] EGD PROCEDURE REPORT EXAM DATE: 05/16/2016 PATIENT NAME: Kal Gonzalez MR #: [id number] BIRTHDATE: 1950 ATTENDING: Amandeep Muse MD ORDER #: [id number] ARMATURE CONNECTOR: Isrrael Saeed and Chan Saenz STATUS: inpatient INDICATIONS: The patient is a 65 yr old male here for an EGD due to anemia and occult blood positive PROCEDURE PERFORMED: EGD, diagnostic MEDICATIONS: Per Anesthesia and None. TOPICAL ANESTHETIC: CONSENT: The patient understands the risks and benefits of the procedure and understands that these risks include, but are not limited to: sedation, allergic reaction, infection, perforation and/or bleeding. Alternative means of evaluation and treatment include, among others: physical exam, x-rays, and/or surgical intervention. The patient elects to proceed with this endoscopic procedure. medical equipment was checked for proper function. Hand hygiene and appropriate measures for infection prevention was taken. After the risks, benefits and alternatives of the procedure were thoroughly explained, Informed consent was verified, confirmed and timeout was successfully executed by the treatment team. The patient was anesthetized with topical anesthesia and the Pentax [id number] endoscope was introduced through the mouth and advanced to the first portion of the duodenum. Retroflexed views revealed large clots the obscured vision of the fundus The gastroscope was then slowly withdrawn and removed. ESOPHAGUS: The mucosa of the esophagus appeared normal. STOMACH: Large clots in the fundus that obscured this portion of the stomach the rest of the stomach was unremarkable. DUODENUM: I was only able to advance the scope into the duodenal bulb I was not able to make the sweep into the second portion of the duodenum due to a large clot that obscured vision and there was a large ulcer in the duodenal bulb. A large non-bleeding non-bleeding, deep and irregular shaped ulcer with an adherent clot was found in the duodenal bulb. The endoscopy was otherwise normal. ADVERSE EVENTS: There were no complications. IMPRESSIONS: 1. The esophagus appeared normal 2. Large clots in the fundus that obscured this portion of the stomach the rest of the stomach was unremarkable 3. I was only able to advance the scope into the duodenal bulb I was not able to make the sweep into the second portion of the duodenum due to a large clot that obscured vision and there was a large ulcer in the duodenal bulb 4. Large non-bleeding ulcer was found in the duodenal bulb 5. Normal endoscopy otherwise 6. Retroflexed views revealed large clots the obscured vision of the fundus RECOMMENDATIONS: Patient to be transferred to the ICU We will start a Protonix drip We will monitor labs and transfuse as needed Case discussed with attending physician Repeat EGD in 2 days Continue with current supportive care If any evidence of active bleeding we will need to pursue embolization with interventional radiology PATIENT CONDITION: stable DISPOSITION: Inpatient REPEAT EXAM: EGD Amandeep Muse MD eSigned: Amandeep Muse MD 05/16/2016 2:09 PM cc: PATIENT NAME: Kal Gonzalez MR#: [id number]
[2016-05-16] MEDS ORDERED: D5-1/2 NS + KCL 30 MEQ INJ 1,000 ML IV SCH (15:00)
[2016-05-16 15:13] LABS: ANA SCREEN NEG (NEG)
[2016-05-16] MEDS ORDERED: PROPOFOL 200 MG/20 ML AMP IV ONE (15:27)
[2016-05-16] MEDS: PANTOPRAZOLE INJ 80 MG in SODIUM CHLORIDE 0.9% INJ 100 ML IV SCH (15:32)
[2016-05-16 16:37] LABS: HEMATOCRIT 23.6 % (39.0-51.0); REVIEW FLAG FINAL
--- NOTE | 2016-05-16 17:27 | HHI.NPPN ---
Subjective History of Present Illness The aptient is a 65 yo [place] male who presented to this facility on 05/14 with complaints of continued L knee pain. Pt lethargic and not providing me with any information. Family not present. Information obtained from previous medical record. Was seen at [facility] on 05/11 with same complaint and was suspected at that point that he had septic arthritis and was prescribed Ibuprofen and Clindamycin. He has a PMHx of osteomyelitis with R great toe amputation in the past. It does not appear that he has any PMHx of CKD, but last labs that I see are from 2014. SCr baseline at that time as 0.8-0.9. Admitting SCr 5.38 at that improved slightly to 5.28 at consult. Interval History Patient lethargic post endoscopy. Review of Systems General General Remarks Unobtainable today. Objective Data Data 05/15/16 05/16/16 19:00 07:00 Intake Total 1436 ml 2130 ml Output Total 800 ml Balance 1436 ml 1330 ml Intake Oral 500 ml IV Total 1186 ml 1630 ml Packed Cells 250 ml Output Urine Total 800 ml # Voids 2 # Bowel Movements 2 2 Vital Signs Date Time Temp Pulse Resp B/P Pulse Ox O2 Delivery O2 Flow Rate FiO2 05/16/16 11:49 98.4 90 18 116/51 99 05/16/16 11:23 98.4 90 18 116/51 99 05/16/16 10:54 97.9 80 20 117/47 99 05/16/16 09:45 94 Nasal Cannula 2.00 05/16/16 08:00 98.5 105 20 151/65 98 05/16/16 04:00 97.7 94 18 150/68 100 05/16/16 03:29 96 21 05/16/16 00:00 97.8 91 18 157/55 99 05/15/16 20:03 88 05/15/16 20:00 97.5 93 18 108/58 99 -: 05/16/16 1621 05/16/16 0530 Physical Exam General Appearance: Well Developed, No Acute Distress, Comfortable Eyes Eye Exam: Sclera White Pulmonary Resp Exam: Clear Bilaterally, Breath Sounds Equal, No Distress Cardiology CV Exam: Regular, Normal Sinus Rhythm, Good Perfusion Gastrointestinal/Abdomen GI Exam: Soft, Non-Tender Integumentary Skin Exam: Clear, Warm Neurologic Neuro Exam: Sedated Assessment/Plan Discussed Condition With: Patient Problem List: (1) Acute renal failure Plan: Potentially from volume depletion given hx of poor oral intake. He has also been on Ibuprofen which could have caused acute renal failure. Continue IV hydration as ordered. Continue oral sodium bicarbonate for the present. Bicarbonate level does not improve however we will add sodium bicarbonate to the IV fluids. May have some degree of CKD given his PMHx, but this is uncertain. Renal US reviewed and showed no evidence of urological obstruction as well as no increased echogenicity which is sometimes seen with CKD. Endoscopy report reviewed. Apparently evidence of GI bleed with large duodenal ulcer. (2) Acidosis Plan: Start po bicarb supplement. Monitor. (3) Anemia Plan: w/u underway with GI. As above, will check serology (4) Diabetes mellitus Plan: Mgmt as per primary team (5) Pain of left calf Plan: Potential muscle tear as per US report. No evidence of DVT (6) Cirrhosis Plan: Suggested by imaging reports. Problem Qualifiers (1) Anemia: Qualified Code: D64.9 - Anemia, unspecified type (2) Diabetes mellitus: Qualified Code: E11.8 - Type 2 diabetes mellitus with complication, without long-term current use of insulin Vero Johnson MD May 16, 2016 17:27
[2016-05-16] MEDS ORDERED: CHLORHEXIDINE GLUCONATE 2 % 1 PACK (2 CLOTHS)(extra cloths) TOPICAL PRN (21:15)
[2016-05-16 21:34] LABS: HEMATOCRIT 22.9 % (39.0-51.0)
[2016-05-16 21:48] LABS: REVIEW FLAG FINAL
[2016-05-17] VITALS (17 sets, daily range): BP systolic 130–179; BP diastolic 59–81; PULSE 74–117; RESP 17–35; TEMP 97.7–98.5; O2SAT 98–100
[2016-05-17] MEDS: PANTOPRAZOLE INJ 80 MG in SODIUM CHLORIDE 0.9% INJ 100 ML IV SCH ×3 (00:10→21:23)
[2016-05-17] MEDS: LORazepam 2 MG/ML VIAL IV PUSH PRN ×3 (02:50→10:16)
[2016-05-17] MEDS: RESP: ALBUTEROL 2.5 MG/IPRATROPIUM 0.5 MG NEB (SCH) NEB ×4 (03:14→21:58)
[2016-05-17] MEDS: CHLORHEXIDINE GLUCONATE 2 % 1 PACK (2 CLOTHS)(taper/protocol) TOPICAL SCH (04:00)
[2016-05-17 04:31] LABS: HEMATOCRIT 26.5 % (39.0-51.0); REVIEW FLAG FINAL
[2016-05-17 04:53] LABS: BICARBONATE 17.1 MEQ/L (21.0-32.0); POTASSIUM 3.8 MEQ/L (3.5-5.1)
[2016-05-17] MEDS: SODIUM BICARBONATE 650 MG TAB PO SCH ×3 (06:00→21:23)
[2016-05-17] MEDS: INSULIN ASPART SUPPLEMENTAL SCALE SQ SCH ×4 (07:00→21:37)
[2016-05-17] MEDS: THIAMINE HCL 100 MG TAB PO SCH (08:19)
[2016-05-17] MEDS: MULTIVITAMINS/MINERALS THERAPEUTIC TAB PO SCH (08:19)
[2016-05-17] MEDS: FOLIC ACID 1 MG TAB PO SCH (08:19)
[2016-05-17] MEDS ORDERED: ENALAPRILAT 1.25 MG/ML VIAL IV PRN (08:30)
--- NOTE | 2016-05-17 08:38 | HHI.NPPN ---
Subjective History of Present Illness The aptient is a 65 yo [place] male who presented to this facility on 05/14 with complaints of continued L knee pain. Pt lethargic and not providing me with any information. Family not present. Information obtained from previous medical record. Was seen at [facility] on 05/11 with same complaint and was suspected at that point that he had septic arthritis and was prescribed Ibuprofen and Clindamycin. He has a PMHx of osteomyelitis with R great toe amputation in the past. It does not appear that he has any PMHx of CKD, but last labs that I see are from 2014. SCr baseline at that time as 0.8-0.9. Admitting SCr 5.38 at that improved slightly to 5.28 at consult. Interval History Pt resting. Not rousable. Receiving nebulizer treatment (Nini Ahumada) Review of Systems General General Remarks Unobtainable today. (Nini Ahumada) Objective Data Data 05/16/16 05/17/16 19:00 07:00 Intake Total 1150 ml 2274 ml Output Total 705 ml 800 ml Balance 445 ml 1474 ml IV Total 150 ml 1774 ml Packed Cells 500 ml Other 1000 ml Output Urine Total 325 ml 800 ml Stool Total 350 ml Estimated Blood Loss 30 ml # Bowel Movements 3 5 Vital Signs Date Time Temp Pulse Resp B/P Pulse Ox O2 Delivery O2 Flow Rate FiO2 05/17/16 08:15 100 Nasal Cannula 2.00 05/17/16 06:00 92 05/17/16 04:00 93 05/17/16 04:00 97.9 93 25 168/72 98 05/17/16 02:00 83 05/17/16 00:00 79 05/17/16 00:00 97.8 84 17 153/81 98 05/16/16 22:00 83 05/16/16 20:06 98 Nasal Cannula 2.00 05/16/16 20:00 98.0 83 18 134/63 100 05/16/16 20:00 83 05/16/16 16:00 98.1 85 15 111/57 100 05/16/16 15:00 97.8 92 15 136/55 97 05/16/16 14:45 82 16 127/57 98 05/16/16 14:30 90 16 126/54 99 05/16/16 14:15 89 16 117/50 97 05/16/16 14:08 97.6 92 15 131/55 97 05/16/16 11:49 98.4 90 18 116/51 99 05/16/16 11:23 98.4 90 18 116/51 99 05/16/16 10:54 97.9 80 20 117/47 99 05/16/16 09:45 94 Nasal Cannula 2.00 (Nini Ahumada) -: 05/17/16 0337 05/17/16336 Medication Review Current Medications Medications (Trade) Dose Ordered Sig/Irene Route Start Time Stop Time Status Last Admin (NS Flush) 2 ml UNSCH PRN IV FLUSH 05/14/16 17:30 (NS Flush) 2 ml BID IV FLUSH 05/14/16 21:00 05/16/16 21:00 (Zofran Inj) 4 mg Q6H PRN IVP 05/14/16 17:30 (Narcan Inj) 0.4 mg UNSCH PRN IV 05/14/16 17:30 (Symbicort 80-4.5 Mcg Inh) 2 puff BID INH 05/14/16 21:00 05/16/16 09:01 (D50w (Vial) Inj) 25 ml UNSCH PRN IV PUSH 05/14/16 17:45 (Glucagon Inj) 1 mg UNSCH PRN OTHER 05/14/16 17:45 (Romazicon Inj) 0.2 mg Q1M PRN IV PUSH 05/14/16 20:00 (Ativan) 1 mg Q4H PRN PO 05/14/16 20:00 (Ativan Inj) 1 mg Q4H PRN IV PUSH 05/14/16 20:00 (Ativan) 2 mg Q2H PRN PO 05/14/16 20:00 (Ativan Inj) 2 mg Q2H PRN IV PUSH 05/14/16 20:00 05/17/16 06:28 (Ativan Inj) 2 mg Q1H PRN IV PUSH 05/14/16 20:00 (Ativan Inj) 2 mg Q15M PRN IV PUSH 05/14/16 20:00 (Sodium Bicarbonate) 650 mg Q8HR PO 05/15/16 14:00 05/17/16 06:00 (Tylenol) 650 mg Q6HR PRN PO 05/15/16 20:00 (Levemir Inj) 10 units Q12HR SQ 05/16/16 09:00 05/16/16 21:00 (Folate) 1 mg DAILY PO 05/17/16 09:00 05/22/16 08:59 (Vitamin B1) 100 mg DAILY PO 05/17/16 09:00 Multivitamins/ Minerals Therapeutic 1 tab 1 tab DAILY PO 05/17/16 09:00 05/22/16 08:59 (Protonix Inj/NS Inj) 100 ml @ 10 mls/hr Q10H IV 05/16/16 16:00 05/17/16 00:10 Miscellaneous Information ALL NURSING DEPARTME... UNSCH PRN .XX 05/16/16 14:05 05/17/16 14:04 Miscellaneous Information Patient in critical care unit? Ass... Q361D .XX 05/16/16 21:15 (Chlorhexidine 2% Cloth) 3 pack DAILY@04 TOPICAL 05/17/16 04:00 05/21/16 04:01 05/17/16 04:00 Chlorhexidine Gluconate 3 pack 3 pack UNSCH PRN TOPICAL 05/16/16 21:15 05/21/16 21:11 Sodium Chloride 1,000 ml @ 100 mls/hr Q10H IV 05/16/16 22:45 05/16/16 22:45 (NS 250 ml Inj) 250 ml @ 15 mls/hr ONCE ONCE IV 05/16/16 22:45 05/17/16 15:24 05/16/16 22:45 (Vasotec Inj) 1.25 mg Q6H PRN IV 05/17/16 08:30 UNV (Nini Ahumada) Physical Exam General Appearance: No Acute Distress, Comfortable (Nini Ahumada) Eyes Eye Exam: Sclera White (Nini Ahumada) Pulmonary Resp Exam: Clear Bilaterally, Breath Sounds Equal, No Distress (Nini Ahumada) Cardiology CV Exam: Regular, Normal Sinus Rhythm, Good Perfusion (Nini Ahumada) Gastrointestinal/Abdomen GI Exam: Soft, Non-Tender (Nini Ahumada) Integumentary Skin Exam: Clear, Warm (Nini Ahumada) Extremeties Extremities Exam: No Edema Extremeties Remarks LLE erythematous and mild edema noted below knee (Nini Ahumada) Neurologic Neuro Exam: Sedated (Nini Ahumada) Assessment/Plan Discussed Condition With: Patient Problem List: (1) Acute renal failure Plan: Potentially from volume depletion given hx of poor oral intake. He has also been on Ibuprofen which could have caused acute renal failure. Continue IV hydration as ordered. Continue po bicarb May have some degree of CKD given his PMHx, but this is uncertain. Renal US reviewed and showed no evidence of urological obstruction as well as no increased echogenicity which is sometimes seen with CKD. Medications should eb adjusted for the patient's renal dysfunction. Avoid nephrotoxic agents such as iodinated contrast and NSAIDs. Avoid gadolinium when eGFR <30 (2) Acidosis Plan: Improving with po bicarb. Monitor (3) Anemia Plan: Endoscopy report reviewed. Apparently evidence of GI bleed with large duodenal ulcer. Serology pending (4) Diabetes mellitus Plan: Mgmt as per primary team (5) Pain of left calf Plan: Potential muscle tear versus strain as per imaging studies. No evidence of DVT (6) Cirrhosis Plan: Suggested by imaging reports. (Niin Ahumada) Plan The exam, history, and the medical decision-making described in the above note were completed with the assistance of the JOSUÉ. I reviewed and agree with the findings presented. I attest that I had a [id number] encounter with the patient on the same day, and personally performed and documented my assessment and findings in the medical record. (Vero Johnson MD) Problem Qualifiers (1) Anemia: Qualified Code: D64.9 - Anemia, unspecified type (2) Diabetes mellitus: Qualified Code: E11.8 - Type 2 diabetes mellitus with complication, without long-term current use of insulin (3) Cirrhosis: Qualified Code: K74.60 - Cirrhosis of liver without ascites, unspecified hepatic cirrhosis type Nini Ahumada May 17, 2016 08:38 Vero Johnson MD May 17, 2016 16:58
[2016-05-17] MEDS: SODIUM CHLOR 0.9% 1000 ML INJ 1,000 ML IV SCH (08:45)
[2016-05-17] MEDS: BUDESONIDE-FORMOTEROL 80/4.5 MCG INHALER INH SCH ×2 (08:46→21:00)
[2016-05-17] MEDS: SODIUM CHLORIDE 0.9% FLUSH 10 ML FLUSH IV FLUSH SCH ×2 (08:46→21:00)
[2016-05-17] MEDS: INSULIN DETEMIR 100 UNITS/ML VIAL SQ SCH ×2 (08:47→21:23)
--- NOTE | 2016-05-17 10:05 | HHI.FPPN ---
Subjective Remarks Pt seen and examined this morning. Pt transfused overnight. This morning, pt resting. Drowsy, had recently been given Ativan. (Prem Anna MD R1) Objective Vitals Vital Signs Date Time Temp Pulse Resp B/P Pulse Ox O2 Delivery O2 Flow Rate FiO2 05/17/16 08:15 100 Nasal Cannula 2.00 05/17/16 06:00 92 05/17/16 04:00 93 05/17/16 04:00 97.9 93 25 168/72 98 05/17/16 02:00 83 05/17/16 00:00 79 05/17/16 00:00 97.8 84 17 153/81 98 05/16/16 22:00 83 05/16/16 20:06 98 Nasal Cannula 2.00 05/16/16 20:00 98.0 83 18 134/63 100 05/16/16 20:00 83 05/16/16 16:00 98.1 85 15 111/57 100 05/16/16 15:00 97.8 92 15 136/55 97 05/16/16 14:45 82 16 127/57 98 05/16/16 14:30 90 16 126/54 99 05/16/16 14:15 89 16 117/50 97 05/16/16 14:08 97.6 92 15 131/55 97 05/16/16 11:49 98.4 90 18 116/51 99 05/16/16 11:23 98.4 90 18 116/51 99 05/16/16 10:54 97.9 80 20 117/47 99 I/O 05/16/16 05/16/16 05/16/16 05/17/16 05/17/16 05/17/16 07:00 15:00 23:00 07:00 15:00 23:00 Intake Total 780 ml 1150 ml 1128 ml 1146 ml Output Total 400 ml 380 ml 625 ml 500 ml Balance 380 ml 770 ml 503 ml 646 ml Intake Oral 0 ml IV Total 780 ml 150 ml 878 ml 896 ml Packed Cells 250 ml 250 ml Other 1000 ml Output Urine Total 400 ml 0 ml 625 ml 500 ml Stool Total 350 ml Estimated Blood Loss 30 ml # Bowel Movements 0 1 3 4 (Prem Anna MD R1) Result Diagram: 05/17/1633605/17/16336 Objective Remarks GEN: Well-developed, well-nourished patient. No acute distress. CV: Regular rate and rhythm without obvious murmurs LUNGS: Clear to auscultation bilaterally. Normal respiratory effort. No wheezes , rales, rhonchi. EXT: Left calf 1+ edema and tender to palpation. Erythematous over left tibia. Minimal left knee effusion. NEURO/PSYCH: Sleeping (Prem Anna MD R1) A/P Assessment and Plan 65 y/o male with history of DM and osteomyelitis presents with left leg pain as well as GI bleed, diabetes mellitus. Admitted for anemia and JOSE and left knee pain. Discharge Planning 2-4 days pending recovery of renal function and GI bleed sdw Dr. Chirinos (Prem Anna MD R1) Attending Attestation Pt. agitated, only minimally responsive, pulling at his IVs this a.m. Has been placed in soft restraints. LOC decreasing. ABGs drawn, bicarb elevated. Have discussed with Dr. Anna; he will contact pneumatic hoist operator with consultation for assistance in the care of this critically ill gentleman. (Jennifer Chirinos MD) Problem List: (1) Knee pain, acute Status: Acute Plan: Likely due to muscle tear and/or Santo cyst rupture contributing to pain and associated edema. -Ortho consulted: Appreciate recommendations. Does not look like septic joint because there is no significant effusion. -S/p antibiotics (Vanc 05/14-; Linezolid 05/15-05/16; Cefepime 05/14-05/16) -Pain control with Tylenol PO/IV to not exceed 3000mg -Would benefit for PT once acute pain and mental status improves. Imaging: * MRI: Prominent edema in the medial calf with prominent fluid signal between the medial gastrocnemius and soleus muscles. DDX is ruptured Santo cyst versus muscle strain. Small joint effusion. No evidence of osteomyelitis. * LE ultrasound: No evidence of DVT. Elongated fluid in the proximal to mid left calf. DDX is muscle tear versus dissecting Santo cyst. 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 * Left knee XR: Negative for fracture or dislocation (2) JOSE (acute kidney injury) Status: Acute Plan: Ddx includes pre-renal (dehydration/hypovolemia) vs renal (ATN). Concern for underlying CKD. Associated with decreased eating and drinking prior to presentation. Baseline Cr is 0.83 from 2 years ago, admission Cr is 5.38. Confusion likely due to uremia. -Renal function improving -Strict I/Os Nephrology consulted: appreciate recommendations * Serologies pending * PO biocarb supplement * Avoid nephrotoxic agents Imaging: * Renal US: Kidneys unremarkable. Finding suggesting cirrhosis and portal venous HTN with varices and recanalized paraumbilical vein. (3) Anemia Status: Acute Plan: No history of ulcers or blood thinners. Has some recent NSAID use and history of alcohol abuse. DDx: gastric/duodenal ulcer, esophageal varices, diverticulosis, colorectal cancer, polyps, IBD, hemorrhoids.H/H on admission was 6.8/20.6. Admission BUN/Cr ratio 19, suggestive of upper GI bleed. S/p transfusion overnight due to hemoglobin remaining low -Tachycardia and SOB likely due to anemia. CXR unremarkable except for cardiomegaly. -Hemoccult in ED positive. -H&H q6H -Transfuse if Hb<8 -Echo pending GI consulted: appreciate recommendations * s/p EGD 05/16 - Large clots in fundus, non-bleeding ulcer in duodenal bulb. Normal esophagus -Repeat EGD tomorrow -Recommend embolization with IR if evidence of active bleeding * Liver serologies negative Medications: * Protonix 40 mg IV BID * Hold all anticoagulation (Coumadin, Plavix, Aspirin) (4) Cirrhosis Status: Acute Plan: Significant alcohol history. Denies alcohol withdrawals. No seizures in past. Cirrhosis seen on Renal US with evident of portal venous HTN with varices. Hepatitis panel negative. -Ammonia WNL -Rally pack -CIWA protocol See more details plan under anemia (5) Diabetes mellitus Status: Acute Plan: Hold home metformin and glipizide. A1c of 6.1, could be falsely low due to blood loss anemia. Bedside glucose remains elevated in 300-400s -Low-dose sliding scale -Levemir 10units BID, continue for now as patient NPO (6) Asthma Status: Acute Plan: -Continue home inhaler, Advair -Albuterol PRN (7) FEN Status: Acute Plan: Fluids: NS @ 100mls/hr Electrolytes: unremarkable; continue to monitor Nutrition: NPO DVT ppx: SCDs/TEDs GI ppx: Protonix gtt (Prem Anna MD R1) Problem List: (1) JOSE (acute kidney injury) Status: Acute Plan: Ddx includes pre-renal (dehydration/hypovolemia) vs renal (ATN). Concern for underlying CKD. Associated with decreased eating and drinking prior to presentation. Baseline Cr is 0.83 from 2 years ago, admission Cr is 5.38. Confusion likely due to uremia. -Renal function improving -Strict I/Os Nephrology consulted: appreciate recommendations * Serologies pending * PO biocarb supplement * Avoid nephrotoxic agents Imaging: * Renal US: Kidneys unremarkable. Finding suggesting cirrhosis and portal venous HTN with varices and recanalized paraumbilical vein. (2) Anemia Status: Acute Plan: No history of ulcers or blood thinners. Has some recent NSAID use and history of alcohol abuse. DDx: gastric/duodenal ulcer, esophageal varices, diverticulosis, colorectal cancer, polyps, IBD, hemorrhoids.H/H on admission was 6.8/20.6. Admission BUN/Cr ratio 19, suggestive of upper GI bleed. S/p transfusion overnight due to hemoglobin remaining low -Tachycardia and SOB likely due to anemia. CXR unremarkable except for cardiomegaly. -Hemoccult in ED positive. -H&H q6H -Transfuse if Hb<8 -Echo pending GI consulted: appreciate recommendations * s/p EGD 05/16 - Large clots in fundus, non-bleeding ulcer in duodenal bulb. Normal esophagus -Repeat EGD tomorrow -Recommend embolization with IR if evidence of active bleeding * Liver serologies negative Medications: * Protonix 40 mg IV BID * Hold all anticoagulation (Coumadin, Plavix, Aspirin) (3) Diabetes mellitus Status: Acute Plan: Hold home metformin and glipizide. A1c of 6.1, could be falsely low due to blood loss anemia. Bedside glucose remains elevated in 300-400s -Low-dose sliding scale -Levemir 10units BID, continue for now as patient NPO (4) Cirrhosis Status: Acute Plan: Significant alcohol history. Denies alcohol withdrawals. No seizures in past. Cirrhosis seen on Renal US with evident of portal venous HTN with varices. Hepatitis panel negative. -Ammonia WNL -Rally pack -CIWA protocol See more details plan under anemia (5) Asthma Status: Acute Plan: -Continue home inhaler, Advair -Albuterol PRN (6) Knee pain, acute Status: Acute Plan: Likely due to muscle tear and/or Santo cyst rupture contributing to pain and associated edema. -Ortho consulted: Appreciate recommendations. Does not look like septic joint because there is no significant effusion. -S/p antibiotics (Vanc 05/14-; Linezolid 05/15-05/16; Cefepime 05/14-05/16) -Pain control with Tylenol PO/IV to not exceed 3000mg -Would benefit for PT once acute pain and mental status improves. Imaging: * MRI: Prominent edema in the medial calf with prominent fluid signal between the medial gastrocnemius and soleus muscles. DDX is ruptured Santo cyst versus muscle strain. Small joint effusion. No evidence of osteomyelitis. * LE ultrasound: No evidence of DVT. Elongated fluid in the proximal to mid left calf. DDX is muscle tear versus dissecting Santo cyst. 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 * Left knee XR: Negative for fracture or dislocation (7) FEN Status: Acute Plan: Fluids: NS @ 100mls/hr Electrolytes: unremarkable; continue to monitor Nutrition: NPO DVT ppx: SCDs/TEDs GI ppx: Protonix gtt (Jennifer Chirinos MD) Problem Qualifiers (1) Knee pain, acute: Qualified Code: M25.562 - Acute pain of left knee (2) Anemia: Qualified Code: D64.9 - Anemia, unspecified type (3) Cirrhosis: Qualified Code: K74.60 - Cirrhosis of liver without ascites, unspecified hepatic cirrhosis type (4) Diabetes mellitus: Qualified Code: E11.8 - Type 2 diabetes mellitus with complication, without long-term current use of insulin (5) Asthma: Qualified Code: J45.909 - Uncomplicated asthma, unspecified asthma severity Prem Anna MD R1 May 17, 2016 10:05 Jennifer Chirinos MD May 17, 2016 12:15
[2016-05-17 10:06] LABS: HEMATOCRIT 26.6 % (39.0-51.0); REVIEW FLAG FINAL
[2016-05-17 11:45] LABS: BLOOD GAS CARBOXYHEMOGLOBIN 2.2 % (0-4); BLOOD GAS HCO3 15 mmol/L (22-26); BLOOD GAS O2 HGB SATURATION 94 % (90-100); BLOOD GAS OXYGEN CONTENT 12.5 Vol % (12.0-20.0); BLOOD GAS PCO2 26 mmHg (38-42); BLOOD GAS PO2 88 mmHg (61-120); BLOOD GAS TOTAL HGB 9.4 G/DL (12.0-16.0); TEMP CORR TO 98.6
[2016-05-17 11:47] LABS: DRAW SITE RT RADIAL; LITER FLOW 2 L/M; NUMBER OF ARTERIAL PUNCTURES 1; OXYGEN DEVICE NASAL CANNULA; STAT YES; ULNAR PULSE PRESENT
[2016-05-17 11:48] LABS: CRITICAL VALUE YES
--- NOTE | 2016-05-17 12:19 | EC ---
Study Study Date:05/17/2016 STUDY CONCLUSIONS SUMMARY - Left ventricle: The cavity size was normal. Wall thickness was normal. Systolic function was mildly reduced. The estimated ejection fraction was in the range of 45% to 50%. Wall motion was normal; there were no regional wall motion abnormalities. - Aortic valve: Valve area: 0.88cm^2(VTI). Valve area: 0.86cm^2 (Vmax). - Mitral valve: Mild regurgitation. - Tricuspid valve: Mild regurgitation. - Pulmonary arteries: PA peak pressure: 38mm Hg (S). If LV function is below 40, please consider prescribing an ACEI or ARB or document rationale for non-use. PROCEDURE DATA STUDY STATUS: Elective. Procedure: Transthoracic echocardiography. Image quality was good. Scanning was performed from the parasternal, apical, and subcostal acoustic windows. Study completion: The patient tolerated the procedure well. Transthoracic echocardiography. M-mode, complete 2D, complete spectral Doppler, and color Doppler. Patient status: Inpatient. CARDIAC ANATOMY LEFT VENTRICLE: The cavity size was normal. Wall thickness was normal. Systolic function was mildly reduced. The estimated ejection fraction was in the range of 45% to 50%. Wall motion was normal; there were no regional wall motion abnormalities. AORTIC VALVE: Trileaflet; normal thickness leaflets. Doppler: Transvalvular velocity was within the normal range. There was no stenosis. No regurgitation. Valve area: 0.88cm^2(VTI). Valve area: 0.86cm^2 (Vmax). Mean gradient: 21mm Hg (S). Peak gradient: 61mm Hg (S). AORTA: Aortic root: The aortic root was normal in size. MITRAL VALVE: Structurally normal valve. Doppler: Transvalvular velocity was within the normal range. There was no evidence for stenosis. Mild regurgitation. Peak gradient: 3mm Hg (D). LEFT ATRIUM: The atrium was normal in size. RIGHT VENTRICLE: The cavity size was normal. Wall thickness was normal. PULMONIC VALVE: Doppler: Transvalvular velocity was within the normal range. There was no evidence for stenosis. No regurgitation. TRICUSPID VALVE: Structurally normal valve. Doppler: Transvalvular velocity was within the normal range. Mild regurgitation. PULMONARY ARTERY: The main pulmonary artery was normal-sized. Systolic pressure was within the normal range. RIGHT ATRIUM: The atrium was normal in size. PERICARDIUM: There was no pericardial effusion. SYSTEMIC VEINS: Inferior vena cava: The vessel was normal in size. BASIC MEASUREMENTS ADULT Normal Left ventricle LV internal dimension, ED, chordal level, *55 mm 43-52 PLAX LV internal dimension, ES, chordal level, *44.5 mm 23-38 PLAX Fractional shortening, chordal level, PLAX *19 % >29 LV posterior wall thickness, ED 13.7 mm IVS/LVPW ratio, ED 0.74 <1.3 Ventricular septum Septal thickness, ED 10.2 mm Aortic valve Leaflet separation *8 mm 15-26 Right ventricle RV internal dimension, ED, PLAX 24.4 mm 19-38 BASIC MEASUREMENTS ADULT Normal Aortic valve Leaflet separation *8 mm 15-26 Aorta Root diameter, ED 31 mm 20-37 Left atrium Anterior-posterior dimension, ES 37 mm 19-40 LA/aortic root ratio 1.19 DOPPLER MEASUREMENTS ADULT Normal Main pulmonary artery Pressure, S *38 mm Hg =30 Aortic valve Peak velocity, S 390 cm/s Mean velocity, S 207 cm/s VTI, S 61 cm Mean gradient, S 21 mm Hg Peak gradient, S 61 mm Hg Valve area, VTI 0.88 cm^2 Valve area, Vmax 0.86 cm^2 Mitral valve Peak E-wave velocity 90.3 cm/s Peak A-wave velocity 88.8 cm/s Peak gradient, D 3 mm Hg Peak E/A ratio 1 Tricuspid valve Regurgitant peak velocity 265 cm/s Peak RV-RA gradient, S 28 mm Hg Maximal regurgitant velocity 265 cm/s Systemic veins Estimated CVP 10 mm Hg Right ventricle RV pressure, S *38 mm Hg <30 LEGEND: Mean values are shown as u=mean value. Asterisk (*) cho values outside specified normal range. Prepared and signed by Bandar Rodriguez [id number]
[2016-05-17] MEDS ORDERED: METOPROLOL TARTRATE 5 MG/5 ML VIAL ONE ×2 (12:39→12:59)
[2016-05-17] MEDS ORDERED: DILTIAZEM HCL 25 MG/5 ML VIAL IVP ONE (13:15)
[2016-05-17] MEDS ORDERED: DILTIAZEM INJ 125 MG in SODIUM CHLORIDE 0.9% INJ 100 ML IV SCH (13:15)
[2016-05-17 13:42] LABS: AUTOMATED NEUTROPHIL # 9.4 TH/MM3 (1.8-7.7); BASOPHIL % 0.2 % (0.0-2.0); EOSINOPHIL # 0.5 TH/MM3 (0-0.4); EOSINOPHIL % 4.4 % (0.0-4.0); HEMATOCRIT 26.4 % (39.0-51.0); LYMPH % 4.7 % (9.0-44.0); LYMPHOCYTE # 0.5 TH/MM3 (1.0-4.8); MEAN CELL VOLUME 88.3 FL (80.0-100.0); MEAN CORPUSCULAR HEMOGLOBIN 30.8 PG (27.0-34.0); MEAN CORPUSCULAR HGB CONC 34.9 % (32.0-36.0); MONO % 8.6 % (0.0-8.0); NEUT % 82.1 % (16.0-70.0); PLATELET COUNT 107 TH/MM3 (150-450); RED BLOOD COUNT 2.99 MIL/MM3 (4.50-5.90); RED CELL DISTRIBUTION WIDTH 18.2 % (11.6-17.2); WHITE BLOOD COUNT 11.4 TH/MM3 (4.0-11.0)
[2016-05-17 13:45] LABS: HEMO FLAGS AUTO DIFF
[2016-05-17 14:27] LABS: BANDS 4 % (0-6); CORRECTED NUCLEATED RBC 1 /100 WBC (0-0); EOSINOPHILS 3 % (0-4); NEUTROPHIL # MANUAL DIFF 8.9 TH/MM3 (1.8-7.7); POLYS (SEG NEUTROPHILS) 74 % (16-70); WBC DIFF SAMPLE 100
[2016-05-17 14:29] LABS: ACANTHOCYTES 1+ (NORMAL); PLATELET ESTIMATE SMEAR LOW (NORMAL); PLATELET MORPHOLOGY NORMAL (NORMAL); POLYCHROMASIA 2.8 % (0.0-1.9); SCAN/DIFF FINAL DIFF MANUAL
[2016-05-17 14:30] LABS: OVALOCYTES 1+ (NORMAL)
[2016-05-17] MEDS ORDERED: ROCURONIUM INJ 50 MG/5 ML VIAL ONE (14:58)
[2016-05-17] MEDS ORDERED: ETOMIDATE 20 MG/10 ML VIAL ONE (14:58)
--- NOTE | 2016-05-17 15:26 | PD.CONS ---
[facility] Service Critical Care Medicine Consult Requested By Dr. Chirinos Reason for Consult Acute encephalopathy Atrial fibrillation with rapid ventricular response Agitated delirium Upper GI bleed/large duodenal ulcer on EGD Anemia requiring transfusion Alcohol dependence Primary Care Physician Non-Staff History of Present Illness Patient is a 65-year-old male with past medical history significant for type 2 diabetes, asthma and history of alcohol dependence who presents to the emergency department on 05/14/73 for evaluation of left knee pain. His workup revealed he had a elevated ESR at >140 and CRP at 26.40. Orthopaedics Dr. Bolaños. MRI did not show any evidence of infection. She was also found to be anemic with Hemoccult positive hemoglobin 6.8 and GI was consulted. Patient' s baseline creatinine is not known but he presented with BUN of 103 creatinine 5.39. Since admission patient received a total of 2 units PRBC. He underwent EGD yesterday and there was a lot of clot in the stomach. Evaluation of stomach was impossible due to large amount of blood. Dr. Muse was able to visualize a large duodenal ulcer which was not actively bleeding at that time. According to him he plan to redo the EGD tomorrow 05/18/16. Post EGD patient was transferred to the ICU yesterday evening due to high risk of recurrent bleed , need for possible IR embolization. According to the notes patient has not been recently drinking but was taking Ibuprofen 800mg po TID at home on the pain. Today regarding critical care medicine was consulted for altered mentation and A. fib with RVR. On my evaluation patient with very lethargic hardly wakes up able to state his name but very slurred speech. An ammonia level checked was normal. Patient received last dose of Ativan around 10 AM. My discussion with Dr. Muse he is planning to do endoscopy EGD again tomorrow. Because of questionable airway protection, GCS about 8 and upper GIB and this will also facilitate bedside EGD tomorrow Review of Systems ROS Limitations: Altered Mental Status Past Family Social History Allergies: Coded Allergies: No Known Allergies (Unverified , 05/14/16) Past Medical History Type 2 diabetes Asthma History of alcoholism Right foot osteomyelitis, S/P amputation right big toe and little toe Past Surgical History Right 2nd digit, S/P amputation. History of right knee infection requiring open I&D several years ago Reported Medications Advair Diskus Inh (Fluticasone-Salmeterol Inh) 100-50 Mcg/Blist Aer 1 Puff INH BID Ventolin Hfa 18 GM Inh (Albuterol Sulfate) 90 Mcg/Act Aer 2 Puff INH Q4-6H PRN Metformin (Metformin HCl) 500 Mg Tab 500 Mg PO DIRECTED Magnesium Oxide 400 Mg Tab 400 Mg PO BID Glipizide 5 Mg Tab 5 Mg PO DAILY Aspirin Low Dose (Aspirin) 81 Mg Chew 81 Mg CHEW DAILY Active Ordered Medications Reviewed Family History Noncontributory Social History According to the notes history of alcoholism not drinking recently (unable ascertain when was her last drink) Quit smoking in 1971 Physical Exam Vital Signs Vital Signs Date Time Temp Pulse Resp B/P Pulse Ox O2 Delivery O2 Flow Rate FiO2 05/17/16 08:15 100 Nasal Cannula 2.00 05/17/16 08:00 85 05/17/16 08:00 97.7 85 18 179/73 100 05/17/16 06:00 92 05/17/16 04:00 93 05/17/16 04:00 97.9 93 25 168/72 98 05/17/16 02:00 83 05/17/16 00:00 79 05/17/16 00:00 97.8 84 17 153/81 98 05/16/16 22:00 83 05/16/16 20:06 98 Nasal Cannula 2.00 05/16/16 20:00 98.0 83 18 134/63 100 05/16/16 20:00 83 05/16/16 16:00 98.1 85 15 111/57 100 Physical Exam GENERAL: This is a well-nourished, well-developed patient, who is very lethargic and somnolent, can hardly keep his eye open HEAD: Atraumatic. Normocephalic. EYES: Pupils equal round and reactive. ENT: Dry mucus membranes NECK: Trachea midline. No JVD or lymphadenopathy. CARDIOVASCULAR: S1-S2 normal systolic murmur heard at the apex RESPIRATORY: Clear to auscultation. Breath sounds equal bilaterally. No wheezes , rales, or rhonchi. GASTROINTESTINAL: Abdomen soft, mild diffuse tenderness. BS+ MUSCULOSKELETAL: Left knee was warm to touch NEUROLOGICAL: Patient is very lethargic hardly opens eyes. Attempts to say his name but speech is incomprehensible. Moves all extremities Laboratory Laboratory Tests Test 05/16/16 05/16/16 05/16/16 05/17/16 15:26 16:21 21:20 03:37 Nasal Screen MRSA (PCR) NEGATIVE Hemoglobin 7.9 7.9 8.9 Hematocrit 23.6 22.9 26.5 Blood Type A POSITIVE Antibody Screen NEGATIVE Sodium Level 142 Potassium Level 3.8 Chloride Level 113 Carbon Dioxide Level 17.1 Anion Gap 12 Blood Urea Nitrogen 102 Creatinine 3.92 Estimat Glomerular Filtration 15 Rate Random Glucose 345 Calcium Level 7.6 Phosphorus Level 4.1 Albumin 1.6 Test 05/17/16 05/17/16 05/17/16 09:44 11:40 13:24 Hemoglobin 9.1 9.2 Hematocrit 26.6 26.4 Blood Gas Puncture Site RT RADIAL Blood Gas Patient Temperature 98.6 Blood Gas HCO3 15 Blood Gas Base Excess -9.0 Blood Gas Oxygen Saturation 94 Arterial Blood pH 7.39 Arterial Blood Partial 26 Pressure CO2 Arterial Blood Partial 88 Pressure O2 Arterial Blood Oxygen Content 12.5 Arterial Blood 2.2 Carboxyhemoglobin Arterial Blood Methemoglobin 1.0 Blood Gas Hemoglobin 9.4 Oxygen Delivery Device NASAL CANNULA Blood Gas Liter Flow 2 White Blood Count 11.4 Red Blood Count 2.99 Mean Corpuscular Volume 88.3 Mean Corpuscular Hemoglobin 30.8 Mean Corpuscular Hemoglobin 34.9 Concent Red Cell Distribution Width 18.2 Platelet Count 107 Mean Platelet Volume 7.6 Neutrophils (%) (Auto) 82.1 Lymphocytes (%) (Auto) 4.7 Monocytes (%) (Auto) 8.6 Eosinophils (%) (Auto) 4.4 Basophils (%) (Auto) 0.2 Neutrophils # (Auto) 9.4 Lymphocytes # (Auto) 0.5 Monocytes # (Auto) 1.0 Eosinophils # (Auto) 0.5 Basophils # (Auto) 0.0 CBC Comment AUTO DIFF Differential Total Cells 100 Counted Neutrophils % (Manual) 74 Band Neutrophils % 4 Lymphocytes % 10 Monocytes % 9 Eosinophils % 3 Neutrophils # (Manual) 8.9 Nucleated Red Blood Cells 1 Differential Comment FINAL DIFF MANUAL Platelet Estimate LOW Platelet Morphology Comment NORMAL Polychromasia 2.8 Ovalocytes 1+ Acanthocytes 1+ Lactic Acid Level 1.3 Ammonia 17 Date/Time Procedure Status Source Growth 05/14/16 23:18 Urine Culture - Final Complete Urine Clean Catch NO GROWTH IN 48 HOURS. 05/14/16 15:20 Aerobic Blood Culture - Preliminary Resulted Blood Peripheral NO GROWTH IN 3 DAYS 05/14/16 15:20 Anaerobic Blood Culture - Preliminary Resulted Blood Peripheral NO GROWTH IN 3 DAYS Result Diagram: 05/17/16 1324 05/17/16 0337 Imaging Knee MRI shows medial calf prominent edema Assessment and Plan Assessment and Plan NEURO: Acute encephalopathy Alcohol dependence -Etiology unclear for current confusion and delirium. Check ammonia level. Previously normal -Patient is unable to give detailed history but no recent alcohol intake -Possibility of alcohol withdrawal cannot be ruled out -Use when necessary Ativan supplement thiamine and multivitamin RESP: Respiratory insufficiency History of asthma -Patient is confused lethargic questionable airway protection -Given confusion delirium and need for EGD and GI bleed will proceed with endotracheal intubation -Post intubation DuoNeb every 6 hours and when necessary, ventilator bundle -Start C Pap trials after EGD in a.m. CV: Atrial fibrillation with rapid ventricular response -No response to 7.5 mg IV Lopressor -Given Cardizem 50 mg IV 1 and Cardizem infusion -Normal saline IV fluids 1 L bolus and bicarbonate infusion at 150 ML per GI/HEME: Upper GI bleed/large duodenal ulcer Severe anemia requiring transfusion Liver cirrhosis -Nothing by mouth except meds, IV Protonix gtt -EGD yesterday 05/16/16 shows large duodenal ulcer. -Unable to visualize most of stomach and duodenum due to large amount of clot present -Dr. Muse planning for repeat EGD in am -Received 4 units PRBC since admission : Acute kidney failure -Monitor renal function closely. Donaldson catheter. -Creatinine steadily improving since admission was 5.39 on admission of 3.98 -Continue bicarbonate infusion no indication for dialysis at this time -Nephrology Dr. Johnson is following. Baseline creatinine unknown ID: -Monitor closely for infection ENDO: -Replace electrolytes. PROPH: -Bilateral lower extremity SCDs. Chemical DVT prophylaxis contraindicated. Continue Protonix infusion LINES: -Utilize peripheral IVs, central line if needed CC time 80 min excluding procedure time Code Status Full Discussed Condition With Drs. Muse and Watson Kim MD May 17, 2016 15:26
--- NOTE | 2016-05-17 15:28 | PD.PROCEDR ---
Procedure Note Procedure After the risks and benefits were discussed the following procedure was performed: INTUBATION: The patient was put in optimal position for the procedure. Rapid sequence intubation was initiated by me using 20 milligrams of etomidate IV and 50 mcg of fentanyl IV. Neuromuscular blockade with 50 mg of rocuronium. Direct laryngoscopy with lack 4 blade, Grade 2B view single attempt. The patient was intubated with a 8.0 cuffed endotracheal tube. Tube placement was confirmed by visualization of the tube and balloon passing through the cords, capnometry and subsequent chest x-ray. Breath sounds were equal and well aerated bilaterally postintubation. No breath sounds over stomach. Patient tolerated procedure well. Watson Melvin MD May 17, 2016 15:28
--- NOTE | 2016-05-17 15:29 | HHI.GIFU ---
Subjective Remarks Resting in bed. Pt extremely lethargic. Had atrial fibrillation and now on Cardizem. Nurse reports that he has had worsening mental status today and the plan is for intubation this afternoon. (Sumi Sweeney) Objective Vitals I&O Vital Signs Date Time Temp Pulse Resp B/P Pulse Ox O2 Delivery O2 Flow Rate FiO2 05/17/16 10:00 87 05/17/16 08:15 100 Nasal Cannula 2.00 05/17/16 08:00 85 05/17/16 08:00 97.7 85 18 179/73 100 05/17/16 06:00 92 05/17/16 04:00 93 05/17/16 04:00 97.9 93 25 168/72 98 05/17/16 02:00 83 05/17/16 00:00 79 05/17/16 00:00 97.8 84 17 153/81 98 05/16/16 22:00 83 05/16/16 20:06 98 Nasal Cannula 2.00 05/16/16 20:00 98.0 83 18 134/63 100 05/16/16 20:00 83 05/16/16 16:00 98.1 85 15 111/57 100 I/O 05/16/16 05/16/16 05/16/16 05/17/16 05/17/16 05/17/16 07:00 15:00 23:00 07:00 15:00 23:00 Intake Total 780 ml 1150 ml 1128 ml 1146 ml Output Total 400 ml 380 ml 625 ml 500 ml Balance 380 ml 770 ml 503 ml 646 ml Intake Oral 0 ml IV Total 780 ml 150 ml 878 ml 896 ml Packed Cells 250 ml 250 ml Other 1000 ml Output Urine Total 400 ml 0 ml 625 ml 500 ml Stool Total 350 ml Estimated Blood Loss 30 ml # Bowel Movements 0 1 3 4 Laboratory Laboratory Tests Test 05/16/16 05/16/16 05/16/16 05/17/16 15:26 16:21 21:20 03:37 Nasal Screen MRSA (PCR) NEGATIVE Hemoglobin 7.9 7.9 8.9 Hematocrit 23.6 22.9 26.5 Blood Type A POSITIVE Antibody Screen NEGATIVE Sodium Level 142 Potassium Level 3.8 Chloride Level 113 Carbon Dioxide Level 17.1 Anion Gap 12 Blood Urea Nitrogen 102 Creatinine 3.92 Estimat Glomerular Filtration 15 Rate Random Glucose 345 Calcium Level 7.6 Phosphorus Level 4.1 Albumin 1.6 Test 05/17/16 05/17/16 05/17/16 09:44 11:40 13:24 Hemoglobin 9.1 9.2 Hematocrit 26.6 26.4 Blood Gas Puncture Site RT RADIAL Blood Gas Patient Temperature 98.6 Blood Gas HCO3 15 Blood Gas Base Excess -9.0 Blood Gas Oxygen Saturation 94 Arterial Blood pH 7.39 Arterial Blood Partial 26 Pressure CO2 Arterial Blood Partial 88 Pressure O2 Arterial Blood Oxygen Content 12.5 Arterial Blood 2.2 Carboxyhemoglobin Arterial Blood Methemoglobin 1.0 Blood Gas Hemoglobin 9.4 Oxygen Delivery Device NASAL CANNULA Blood Gas Liter Flow 2 White Blood Count 11.4 Red Blood Count 2.99 Mean Corpuscular Volume 88.3 Mean Corpuscular Hemoglobin 30.8 Mean Corpuscular Hemoglobin 34.9 Concent Red Cell Distribution Width 18.2 Platelet Count 107 Mean Platelet Volume 7.6 Neutrophils (%) (Auto) 82.1 Lymphocytes (%) (Auto) 4.7 Monocytes (%) (Auto) 8.6 Eosinophils (%) (Auto) 4.4 Basophils (%) (Auto) 0.2 Neutrophils # (Auto) 9.4 Lymphocytes # (Auto) 0.5 Monocytes # (Auto) 1.0 Eosinophils # (Auto) 0.5 Basophils # (Auto) 0.0 CBC Comment AUTO DIFF Differential Total Cells 100 Counted Neutrophils % (Manual) 74 Band Neutrophils % 4 Lymphocytes % 10 Monocytes % 9 Eosinophils % 3 Neutrophils # (Manual) 8.9 Nucleated Red Blood Cells 1 Differential Comment FINAL DIFF MANUAL Platelet Estimate LOW Platelet Morphology Comment NORMAL Polychromasia 2.8 Ovalocytes 1+ Acanthocytes 1+ Lactic Acid Level 1.3 Ammonia 17 Date/Time Procedure Status Source Growth 05/14/16 23:18 Urine Culture - Final Complete Urine Clean Catch NO GROWTH IN 48 HOURS. 05/14/16 15:20 Aerobic Blood Culture - Preliminary Resulted Blood Peripheral NO GROWTH IN 3 DAYS 05/14/16 15:20 Anaerobic Blood Culture - Preliminary Resulted Blood Peripheral NO GROWTH IN 3 DAYS Imaging Last Impressions Chest X-Ray 05/16/16 0000 Signed Impressions: Service Date/Time: Monday, May 16, 2016 08:23 - CONCLUSION: Compensated cardiomegaly with minimal bibasilar parenchymal changes . Alexy Padron MD FACR Renal Ultrasound 05/15/16 0000 Signed Impressions: Service Date/Time: Sunday, May 15, 2016 10:50 - CONCLUSION: 1. Kidneys within normal limits. 2. Findings suggesting cirrhosis and portal venous hypertension with varices and recanalized paraumbilical vein. Get Franco MD Lower Extremity Ultrasound 05/15/16 0000 Signed Impressions: Service Date/Time: Sunday, May 15, 2016 08:41 - CONCLUSION: 1. No evidence of lower extremity DVT on the right or left. 2. Elongated fluid in the proximal to mid left calf. The rectal diagnosis is muscle tear versus dissecting Santo cyst. 3. 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 Get Franco MD Knee MRI 05/15/16 0000 Signed Impressions: Service Date/Time: Sunday, May 15, 2016 16:51 - CONCLUSION: 1. Prominent edema in the medial calf with prominent fluid signal between the medial gastrocnemius and soleus muscles. Differential diagnosis is ruptured Santo cyst versus muscle strain. No fluid-filled gap in muscle fibers is seen. There is also adjacent superficial soft tissue edema in this region. 2. Small horizontal tear of the body of the medial meniscus. 3. Small joint effusion. 4. Mild reactive bony edema in the patella. 5. No evidence of osteomyelitis. 6. Moderate focal medial facet patellar chondromalacia. Get Franco MD Knee X-Ray 05/14/16 0000 Signed Impressions: Service Date/Time: Saturday, May 14, 2016 15:44 - CONCLUSION: Negative for fracture or dislocation. Follow up in 7-10 days is suggested if symptoms persist. Alexy Padron MD FACR Physical Exam HEENT: Normocephalic; atraumatic; no jaundice CHEST: Resp. even/shallow. CARDIAC: Irregular. ABDOMEN: Soft, nondistended, no hepatosplenomegaly; bowel sounds are present in all four quadrants. EXTREMITIES: No clubbing, cyanosis, or edema. SKIN: Normal; no rash; no jaundice. ORTHOPAEDIC SURGEON: Lethargic, worsening. (Sumi Sweeney) Assessment and Plan Plan ASSESSMEN:T - Anemia. Hemoccult positive stool with a epigastric pain, melenotic stool, and recent Ibuprofen use. On admission, he was noted to have HH 6.8/20.6. S/P EGD (05/16/16)----> 1. The esophagus appeared normal 2. Large clots in the fundus that obscured this portion of the stomach the rest of the stomach was unremarkable 3. I was only able to advance the scope into the duodenal bulb I was not able to make the sweep into the second portion of the duodenum due to a large clot that obscured vision and there was a large ulcer in the duodenal bulb 4. Large non-bleeding ulcer was found in the duodenal bulb 5. Normal endoscopy otherwise 6. Retroflexed views revealed large clots the obscured vision of the fundus. S/P 6 units PRBC. HH 9.2/26.4. Plan is for repeat EGD tomorrow. - Elevated LFT. T. Bili 1.6. He has a hx of heavy alcohol use. Hepatitis negative, KRYSTLE negative, AMSA negative, AMA pending, AFP 1.6, Ceruloplasmin pending, Alpha 1 Antitrypsin pending. Ferritin 582, Iron Saturation 60.5. - JOSE. Creat 3.98. Renal following. - Left knee pain with elevated ESR at >140 and CRP at 26.40. Orthopaedics are following and the workup is in progress. - Metabolic encephalopathy. Will check ammonia, but this may also be related to his acute renal failure. PLAN: - Plan for repeat egd in am - Obtain consents - NPO after MN - Cont. PPI Gtt - Monitor HH - Transfuse as necessary - Await liver workup - Supportive care - Further recommendations to follow based on results of above - PT seen and examined by Dr. Muse and myself and this note is written on his behalf (Sumi Sweeney) Physician Comments Patient seen and examined Agree with above Continue with current supportive care Monitor labs Case discussed with Dr. Melvin patient will be intubated Plan to proceed with an EGD tomorrow currently no active GI bleed (Amandeep Muse MD) Sumi Sweeney May 17, 2016 15:29 Amandeep Muse MD May 17, 2016 18:08
[2016-05-17 15:57] LABS: HEMATOCRIT 27.2 % (39.0-51.0); REVIEW FLAG FINAL
[2016-05-17] MEDS ORDERED: fentaNYL DRIP 250 ML IV SCH (16:00)
--- NOTE | 2016-05-17 16:16 | RADRPT ---
EXAM DATE/TIME: 05/17/2016 15:39 [facility] COMPARISON: CHEST SINGLE AP, May 16, 2016, 8:23. INDICATIONS : Post intubation. MEDICAL HISTORY : Osteomyelitis. Asthma. Diabetes. SURGICAL HISTORY : Righ great and 2nd toe amputated. Right knee surgery. ENCOUNTER: Subsequent ACUITY: 2 weeks PAIN SCORE: Non-responsive. LOCATION: chest FINDINGS: Single AP view of the chest. Endotracheal tube is in place with the tip 2.8 cm above the mele. Naso gastric tube is in place with the tip in the stomach. Mild atelectasis at the left lung base. Lungs o therwise clear. Mild blunting left costophrenic sulcus. No evidence of pneumothorax. CONCLUSION: 1. Endotracheal tube and nasogastric tube in place. 2. Mild patchy atelectasis at the left lung base and small left pleural effusion. Get Franco MD on May 17, 2016 at 16:13 Board Certified Radiologist. This report was verified electronically.
[2016-05-17 16:29] LABS: BLOOD GAS BASE EXCESS -7.4 mmol/L (-2-2); BLOOD GAS CARBOXYHEMOGLOBIN 1.8 % (0-4); BLOOD GAS HCO3 18 mmol/L (22-26); BLOOD GAS METHEMOGLOBIN 0.9 % (0-2); BLOOD GAS O2 HGB SATURATION 96 % (90-100); BLOOD GAS OXYGEN CONTENT 16.2 Vol % (12.0-20.0); BLOOD GAS PCO2 40 mmHg (38-42); BLOOD GAS PO2 135 mmHg (61-120); BLOOD GAS TOTAL HGB 11.8 G/DL (12.0-16.0); TEMP CORR TO 98.6
[2016-05-17 16:32] LABS: CRITICAL VALUE YES; DRAW SITE RT RADIAL; FIO2 40 %; NUMBER OF ARTERIAL PUNCTURES 1; OXYGEN DEVICE VENTILATOR; STAT YES; ULNAR PULSE PRESENT; VENT SETTINGS 500/AC16/PEEP7
[2016-05-17] MEDS: SODIUM BICARBONATE 8.4% INJ 150 MEQ in WATER STERILE FOR INJ 850 ML IV SCH ×2 (16:35→21:22)
[2016-05-17] MEDS ORDERED: SODIUM BICARBONATE 8.4% INJ 50 MEQ/50 ML SYR IV PUSH ONE (17:00)
[2016-05-17] MEDS: PROPOFOL 1000 MG/100 ML INJ 100 ML IV SCH ×2 (17:24→17:25)
[2016-05-17 17:30] LABS: ALBUMIN SPE 2.28 GM/DL (3.50-5.00); ALPHA 1 GLOBULIN 0.52 GM/DL (0.11-0.29); ALPHA 2 GLOBULIN 0.85 GM/DL (0.22-1.00); BETA GLOBULINS (SPE) 0.67 GM/DL (0.53-1.03)
[2016-05-17] MEDS: THIAMINE INJ 100 MG in SODIUM CHLORIDE 0.9% INJ 100 ML IV SCH (18:40)
[2016-05-17] MEDS: CHLORHEXIDINE 0.12% (ORAL KIT) 15 ML CUP MT SCH (20:00)
[2016-05-17 22:25] LABS: BACTERIA, URINE MOD /hpf; BLOOD, URINE MOD (NEG); COMMENT (UR) CATH-CULTURE IND; CULTURE IF INDICATED CATH CULTURE IND; GLUCOSE,URINE TRACE mg/dL (NEG); KETONE, URINE NEG (NEG); MUCUS URINE FEW /lpf (OCC); NITRITE,URINE NEG (NEG); SQUAMOUS EPITHELIAL CELL URINE <1 /hpf (0-5); URINE COLOR YELLOW (YELLW/STRAW)
[2016-05-17 23:25] LABS: HEMATOCRIT 26.3 % (39.0-51.0); REVIEW FLAG FINAL
[2016-05-18] VITALS (22 sets, daily range): BP systolic 108–142; BP diastolic 56–67; PULSE 78–154; RESP 17–26; TEMP 96.3–99.6; O2SAT 98–100
[2016-05-18 02:07] LABS: HEMATOCRIT 24.7 % (39.0-51.0); MEAN CELL VOLUME 89.3 FL (80.0-100.0); MEAN CORPUSCULAR HEMOGLOBIN 31.8 PG (27.0-34.0); MEAN CORPUSCULAR HGB CONC 35.6 % (32.0-36.0); PLATELET COUNT 125 TH/MM3 (150-450); RED BLOOD COUNT 2.77 MIL/MM3 (4.50-5.90); REVIEW FLAG FINAL; WHITE BLOOD COUNT 15.1 TH/MM3 (4.0-11.0)
[2016-05-18 02:17] LABS: BICARBONATE 22.8 MEQ/L (21.0-32.0); POTASSIUM 3.7 MEQ/L (3.5-5.1)
[2016-05-18] MEDS: CHLORHEXIDINE GLUCONATE 2 % 1 PACK (2 CLOTHS)(taper/protocol) TOPICAL SCH (03:33)
[2016-05-18] MEDS: PROPOFOL 1000 MG/100 ML INJ 100 ML IV SCH ×4 (03:33→20:47)
[2016-05-18] MEDS: SODIUM BICARBONATE 8.4% INJ 150 MEQ in WATER STERILE FOR INJ 850 ML IV SCH (03:33)
[2016-05-18 03:50] LABS: KAPPA/LAMBDA FREE 1.21 (0.26-1.65)
[2016-05-18 03:51] LABS: MYELOPEROXIDASE LESS THAN 1.0 AI (<1.0); PROTEINASE-3 LESS THAN 1.0 AI (<1.0)
[2016-05-18] MEDS: PANTOPRAZOLE INJ 80 MG in SODIUM CHLORIDE 0.9% INJ 100 ML IV SCH ×2 (05:15→13:20)
[2016-05-18] MEDS: SODIUM BICARBONATE 650 MG TAB PO SCH ×3 (05:15→20:46)
[2016-05-18] MEDS: INSULIN ASPART SUPPLEMENTAL SCALE SQ SCH ×3 (06:38→19:00)
[2016-05-18 07:32] LABS: HEMATOCRIT 22.5 % (39.0-51.0)
[2016-05-18 07:33] LABS: REVIEW FLAG FINAL
[2016-05-18] MEDS: RESP: ALBUTEROL 2.5 MG/IPRATROPIUM 0.5 MG NEB (SCH) NEB ×3 (07:41→20:08)
[2016-05-18] MEDS ORDERED: SODIUM CHLOR 0.45% 1000 ML INJ 1,000 ML IV SCH (08:00)
--- NOTE | 2016-05-18 08:06 | HHI.CCPN ---
Subjective Remarks/Hospital Course Patient is a 65-year-old male with past medical history significant for type 2 diabetes, asthma and history of alcohol dependence who presents to the emergency department on 05/14/73 for evaluation of left knee pain. His workup revealed he had a elevated ESR at >140 and CRP at 26.40. Orthopaedics Dr. Bolaños. MRI did not show any evidence of infection. She was also found to be anemic with Hemoccult positive hemoglobin 6.8 and GI was consulted. Patient' s baseline creatinine is not known but he presented with BUN of 103 creatinine 5.39. Since admission patient received a total of 2 units PRBC. He underwent EGD yesterday and there was a lot of clot in the stomach. Evaluation of stomach was impossible due to large amount of blood. Dr. Muse was able to visualize a large duodenal ulcer which was not actively bleeding at that time. According to him he plan to redo the EGD tomorrow 05/18/16. Post EGD patient was transferred to the ICU yesterday evening due to high risk of recurrent bleed , need for possible IR embolization. According to the notes patient has not been recently drinking but was taking Ibuprofen 800mg po TID at home on the pain. Today regarding critical care medicine was consulted for altered mentation and A. fib with RVR. On my evaluation patient with very lethargic hardly wakes up able to state his name but very slurred speech. An ammonia level checked was normal. Patient received last dose of Ativan around 10 AM. My discussion with Dr. Muse he is planning to do endoscopy EGD again tomorrow. Because of questionable airway protection, GCS about 8 and upper GIB and this will also facilitate bedside EGD tomorrow 05/18 Patient is sedated with Diprivan and intubated. On Protonix and bicarb drips. Afebrile. For EGD today. Objective Vital Signs Date Time Temp Pulse Resp B/P Pulse Ox O2 Delivery O2 Flow Rate FiO2 05/18/16 07:36 100 40 05/18/16 06:00 83 05/18/16 04:00 98.8 26 132/67 05/17/16 08:15 Nasal Cannula 2.00 Intake and Output 05/17/16 05/17/16 05/18/16 08:00 16:00 00:00 Intake Total 1146 ml 837 ml 1210 ml Output Total 500 ml 400 ml 600 ml Balance 646 ml 437 ml 610 ml Result Diagram: 05/18/16 0639 05/18/16 0152 Other Results Laboratory Tests Test 05/17/16 05/17/16 05/17/16 05/17/16 09:44 11:40 13:24 15:41 Hemoglobin 9.1 GM/DL 9.2 GM/DL 9.2 GM/DL Hematocrit 26.6 % 26.4 % 27.2 % Blood Gas Puncture Site RT RADIAL Blood Gas Patient Temperature 98.6 Blood Gas HCO3 15 mmol/L Blood Gas Base Excess -9.0 mmol/L Blood Gas Oxygen Saturation 94 % Arterial Blood pH 7.39 Arterial Blood Partial 26 mmHg Pressure CO2 Arterial Blood Partial 88 mmHg Pressure O2 Arterial Blood Oxygen Content 12.5 Vol % Arterial Blood 2.2 % Carboxyhemoglobin Arterial Blood Methemoglobin 1.0 % Blood Gas Hemoglobin 9.4 G/DL Oxygen Delivery Device NASAL CANNULA Blood Gas Liter Flow 2 L/M White Blood Count 11.4 TH/MM3 Red Blood Count 2.99 MIL/MM3 Mean Corpuscular Volume 88.3 FL Mean Corpuscular Hemoglobin 30.8 PG Mean Corpuscular Hemoglobin 34.9 % Concent Red Cell Distribution Width 18.2 % Platelet Count 107 TH/MM3 Mean Platelet Volume 7.6 FL Neutrophils (%) (Auto) 82.1 % Lymphocytes (%) (Auto) 4.7 % Monocytes (%) (Auto) 8.6 % Eosinophils (%) (Auto) 4.4 % Basophils (%) (Auto) 0.2 % Neutrophils # (Auto) 9.4 TH/MM3 Lymphocytes # (Auto) 0.5 TH/MM3 Monocytes # (Auto) 1.0 TH/MM3 Eosinophils # (Auto) 0.5 TH/MM3 Basophils # (Auto) 0.0 TH/MM3 CBC Comment AUTO DIFF Differential Total Cells 100 Counted Neutrophils % (Manual) 74 % Band Neutrophils % 4 % Lymphocytes % 10 % Monocytes % 9 % Eosinophils % 3 % Neutrophils # (Manual) 8.9 TH/MM3 Nucleated Red Blood Cells 1 /100 WBC Differential Comment FINAL DIFF MANUAL Platelet Estimate LOW Platelet Morphology Comment NORMAL Polychromasia 2.8 % Ovalocytes 1+ Acanthocytes 1+ Lactic Acid Level 1.3 mmol/L Ammonia 17 MCMOL/L Test 05/17/16 05/17/16 05/17/1631/17 16:24 21:30 22:29 01:52 Blood Gas Puncture Site RT RADIAL Blood Gas Patient Temperature 98.6 Blood Gas HCO3 18 mmol/L Blood Gas Base Excess -7.4 mmol/L Blood Gas Oxygen Saturation 96 % Arterial Blood pH 7.28 Arterial Blood Partial 40 mmHg Pressure CO2 Arterial Blood Partial 135 mmHg Pressure O2 Arterial Blood Oxygen Content 16.2 Vol % Arterial Blood 1.8 % Carboxyhemoglobin Arterial Blood Methemoglobin 0.9 % Blood Gas Hemoglobin 11.8 G/DL Oxygen Delivery Device VENTILATOR Blood Gas Ventilator Setting 500/AC16/PEEP7 Blood Gas Inspired Oxygen 40 % Urine Color YELLOW Urine Turbidity CLEAR Urine pH 5.0 Urine Specific Edison 1.012 Urine Protein TRACE mg/dL Urine Glucose (UA) TRACE mg/dL Urine Ketones NEG mg/dL Urine Occult Blood MOD Urine Nitrite NEG Urine Bilirubin NEG Urine Urobilinogen LESS THAN 2.0 MG/DL Urine Leukocyte Esterase NEG Urine RBC 29 /hpf Urine WBC 5 /hpf Urine Squamous Epithelial <1 /hpf Cells Urine Bacteria MOD /hpf Urine Mucus FEW /lpf Microscopic Urinalysis Comment CATH-CULTURE IND Hemoglobin 8.9 GM/DL 8.8 GM/DL Hematocrit 26.3 % 24.7 % White Blood Count 15.1 TH/MM3 Red Blood Count 2.77 MIL/MM3 Mean Corpuscular Volume 89.3 FL Mean Corpuscular Hemoglobin 31.8 PG Mean Corpuscular Hemoglobin 35.6 % Concent Red Cell Distribution Width 18.0 % Platelet Count 125 TH/MM3 Mean Platelet Volume 7.9 FL Sodium Level 148 MEQ/L Potassium Level 3.7 MEQ/L Chloride Level 115 MEQ/L Carbon Dioxide Level 22.8 MEQ/L Anion Gap 10 MEQ/L Blood Urea Nitrogen 94 MG/DL Creatinine 3.16 MG/DL Estimat Glomerular Filtration 20 ML/MIN Rate Random Glucose 169 MG/DL Calcium Level 7.8 MG/DL Phosphorus Level 4.0 MG/DL Albumin 1.5 GM/DL Test 05/18/16 06:39 Hemoglobin 7.9 GM/DL Hematocrit 22.5 % Imaging Last Impressions Chest X-Ray 05/17/16 0000 Signed Impressions: Service Date/Time: April 15:39 - CONCLUSION: 1. Endotracheal tube and nasogastric tube in place. 2. Mild patchy atelectasis at the left lung base and small left pleural effusion. Get Franco MD Renal Ultrasound 05/15/16 0000 Signed Impressions: Service Date/Time: Sunday, May 15, 2016 10:50 - CONCLUSION: 1. Kidneys within normal limits. 2. Findings suggesting cirrhosis and portal venous hypertension with varices and recanalized paraumbilical vein. Get Franco MD Lower Extremity Ultrasound 05/15/16 0000 Signed Impressions: Service Date/Time: Sunday, May 15, 2016 08:41 - CONCLUSION: 1. No evidence of lower extremity DVT on the right or left. 2. Elongated fluid in the proximal to mid left calf. The rectal diagnosis is muscle tear versus dissecting Santo cyst. 3. 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 Get Franco MD Knee MRI 05/15/16 0000 Signed Impressions: Service Date/Time: Sunday, May 15, 2016 16:51 - CONCLUSION: 1. Prominent edema in the medial calf with prominent fluid signal between the medial gastrocnemius and soleus muscles. Differential diagnosis is ruptured Santo cyst versus muscle strain. No fluid-filled gap in muscle fibers is seen. There is also adjacent superficial soft tissue edema in this region. 2. Small horizontal tear of the body of the medial meniscus. 3. Small joint effusion. 4. Mild reactive bony edema in the patella. 5. No evidence of osteomyelitis. 6. Moderate focal medial facet patellar chondromalacia. Get Franco MD Knee X-Ray 05/14/16 0000 Signed Impressions: Service Date/Time: Saturday, May 14, 2016 15:44 - CONCLUSION: Negative for fracture or dislocation. Follow up in 7-10 days is suggested if symptoms persist. Alexy Padron MD FACR Objective Remarks GENERAL: Patient is 66 yo intubated and sedated, SKIN: Warm and dry. HEAD: Normocephalic. EYES: No scleral icterus. No injection or drainage. NECK: Supple, trachea midline. No JVD or lymphadenopathy. CARDIOVASCULAR: Regular rate and rhythm without murmurs, gallops, or rubs. RESPIRATORY: Breath sounds equal bilaterally. No accessory muscle use. GASTROINTESTINAL: Abdomen soft, non-tender, nondistended. MUSCULOSKELETAL: No cyanosis, or edema. Neuro; Sedated and intubated. A/P Assessment and Plan NEURO: Acute encephalopathy Alcohol dependence -On Diprivan infusion for sedation. Daily sedation vacation when aproopiste -Use when necessary Ativan supplement thiamine and multivitamin RESP: Respiratory insufficiency History of asthma -Continue with vent support keep sat >92% - DuoNeb every 6 hours and when necessary, ventilator bundle -Start C Pap trials after EGD CV: Atrial fibrillation with rapid ventricular response -Monitor HR and BP keep MAP>65mmHg GI/HEME: Upper GI bleed/large duodenal ulcer Severe anemia requiring transfusion Liver cirrhosis -s/p repeat EGD today which showed duodenal ulcers with visible vessels s/p Epi injection and cauterization -NPO, IV Protonix gtt -EGD yesterday 05/16/16 shows large duodenal ulcer. -Unable to visualize most of stomach and duodenum due to large amount of clot present -For repeat EGD in am. Monitor CBC -Received 4 units PRBC since admission -Will consult IR for possible embolization if patient rebleeds. : Acute kidney failure -Monitor renal function, I/O's, avoid nephrotoxins. -Renal function is improving with Cr: 3.16 from 3.92, UO: 1200ml in 24 hrs -d/c bicarb drip, change IVF 1/2NS@100ml/hr, on PO bicarb 650mg Q8 -Nephrology Dr. Johnson is following. Baseline creatinine unknown ID: -Monitor for signs of infection ( Fever, WBC) ENDO: -SSI( low scale ) for glycemic control) hold Levemir as patient is NPO. PROPH: -Bilateral lower extremity SCDs. Chemical DVT prophylaxis contraindicated. Continue Protonix infusion LINES: -Utilize peripheral IVs, central line if needed CC time 30 min excluding procedure time Sandy Ovalle MD May 18, 2016 08:06
--- NOTE | 2016-05-18 08:32 | HHI.FPPN ---
Subjective Remarks Pt seen and examined this morning. Pt was seen by critical care yesterday to worsening mental status. Intubated yesterday due to concerns for airway compromise and for EGD procedure this AM. This morning, patient intubated and sedated. (Prem Anna MD R1) Objective Vitals Vital Signs Date Time Temp Pulse Resp B/P Pulse Ox O2 Delivery O2 Flow Rate FiO2 05/18/16 07:36 100 40 05/18/16 06:00 83 05/18/16 05:50 100 40 05/18/16 04:00 40 05/18/16 04:00 89 05/18/16 04:00 98.8 89 26 132/67 100 05/18/16 02:24 100 40 05/18/16 02:00 85 05/18/16 00:00 40 05/18/16 00:00 98.2 83 19 142/63 100 05/18/16 00:00 83 05/17/16 23:57 100 40 05/17/16 22:00 80 05/17/16 20:16 40 05/17/16 20:00 77 05/17/16 20:00 98.5 77 19 130/59 100 05/17/16 19:50 100 40 05/17/16 18:00 74 05/17/16 16:00 83 05/17/16 16:00 98.0 83 35 147/66 100 05/17/16 15:21 100 40 05/17/16 15:00 87 05/17/16 14:00 117 05/17/16 12:00 97.7 89 20 168/74 99 05/17/16 12:00 85 05/17/16 10:00 87 I/O 05/17/16 05/17/16 05/17/16 05/18/16 05/18/16 05/18/16 07:00 15:00 23:00 07:00 15:00 23:00 Intake Total 1146 ml 837 ml 1210 ml 1390 ml Output Total 500 ml 400 ml 600 ml 400 ml Balance 646 ml 437 ml 610 ml 990 ml Intake Oral 0 ml 0 ml IV Total 896 ml 837 ml 1210 ml 1390 ml Packed Cells 250 ml Output Urine Total 500 ml 400 ml 600 ml 400 ml # Bowel Movements 4 3 1 1 (Prem Anna MD R1) Result Diagram: 05/18/16 0639 05/18/16 0152 Objective Remarks GEN: Well-developed, well-nourished patient. No acute distress. CV: Regular rate and rhythm without obvious murmurs LUNGS: Clear to auscultation bilaterally. Normal respiratory effort. No wheezes , rales, rhonchi. EXT: Left calf 1+ edema and tender to palpation. Erythematous over left tibia. Minimal left knee effusion, warm to touch NEURO/PSYCH: Intubated, sedated (Prem Anna MD R1) A/P Assessment and Plan 65 y/o male with history of DM and osteomyelitis presents with left leg pain as well as GI bleed, diabetes mellitus. Admitted for anemia and JOSE and left knee pain. Discharge Planning 2-4 days pending recovery of renal function and GI bleed (Prem Anna MD R1 ) Attending Attestation Patient seen and examined. Case reviewed and discussed with the resident team. Agree with plan of care as discussed with me and documented in the resident note. unfortunately, quite ill with all his morbidities (Chapis Farley MD) Problem List: (1) Acute encephalopathy Status: Acute Plan: Unclear etiology. DDx: delirium, alcohol withdrawal, metabolic encephalopathy, uremia Ammonia level normal -Critical care consulted: appreciate recs -Pt intubated 05/17 due to lethargy and airway protection -Sedated and will proceed with EGD today -Cpap trials after EGD today (2) JOSE (acute kidney injury) Status: Acute Plan: Ddx includes pre-renal (dehydration/hypovolemia) vs renal (ATN). Concern for underlying CKD. Associated with decreased eating and drinking prior to presentation. Baseline Cr is 0.83 from 2 years ago, admission Cr is 5.38. Confusion likely due to uremia. -Renal function improving -Strict I/Os Nephrology consulted: appreciate recommendations * Serologies pending * PO biocarb supplement * Avoid nephrotoxic agents Imaging: * Renal US: Kidneys unremarkable. Finding suggesting cirrhosis and portal venous HTN with varices and recanalized paraumbilical vein. (3) Anemia Status: Acute Plan: No history of ulcers or blood thinners. Has some recent NSAID use and history of alcohol abuse. DDx: gastric/duodenal ulcer, esophageal varices, diverticulosis, colorectal cancer, polyps, IBD, hemorrhoids.H/H on admission was 6.8/20.6. Admission BUN/Cr ratio 19, suggestive of upper GI bleed. S/p transfusion overnight due to hemoglobin remaining low Echo: EF 45-50%, mild MR, mild TR -Tachycardia and SOB likely due to anemia. CXR unremarkable except for cardiomegaly. -Hemoccult in ED positive. -H&H q6H -Transfuse if Hb<8 GI consulted: appreciate recommendations * s/p EGD 05/16 - Large clots in fundus, non-bleeding ulcer in duodenal bulb. Normal esophagus -Repeat EGD today -Recommend embolization with IR if evidence of active bleeding * Liver serologies negative Medications: * Protonix drip * Hold all anticoagulation (Coumadin, Plavix, Aspirin) (4) Atrial fibrillation Status: Acute Plan: Pt developed Afib with RVR. No history of Afib per patient. Given lopressor, cardizem. S/p cardizem infusion 05/17. See echo results above Holding chemo ppx due to GI bleed -Continue to monitor tele, heart rate -Fluids as below -May need to restart cardizem PRN (5) Diabetes mellitus Status: Acute Plan: Hold home metformin and glipizide. A1c of 6.1, could be falsely low due to blood loss anemia. Bedside glucose remains elevated in 300-400s -Low-dose sliding scale -Hold Levemir 10units BID, continue for now as patient NPO (6) Cirrhosis Status: Acute Plan: Significant alcohol history. Denies alcohol withdrawals. No seizures in past. Cirrhosis seen on Renal US with evident of portal venous HTN with varices. Hepatitis panel negative. -Ammonia WNL -Rally pack -CIWA protocol See more details plan under anemia (7) Asthma Status: Chronic Plan: -Continue home inhaler, Advair -Albuterol PRN (8) Knee pain, acute Status: Acute Plan: Likely due to muscle tear and/or Santo cyst rupture contributing to pain and associated edema. -Ortho consulted: Appreciate recommendations. Does not look like septic joint because there is no significant effusion. -S/p antibiotics (Vanc 05/14-; Linezolid 05/15-05/16; Cefepime 05/14-05/16) -Pain control with Tylenol PO/IV to not exceed 3000mg -Would benefit for PT once acute pain and mental status improves. Imaging: * MRI: Prominent edema in the medial calf with prominent fluid signal between the medial gastrocnemius and soleus muscles. DDX is ruptured Santo cyst versus muscle strain. Small joint effusion. No evidence of osteomyelitis. * LE ultrasound: No evidence of DVT. Elongated fluid in the proximal to mid left calf. DDX is muscle tear versus dissecting Asnto cyst. 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 * Left knee XR: Negative for fracture or dislocation (9) FEN Status: Acute Plan: Fluids: 1/2NS @ 100mls/hr Electrolytes: unremarkable; continue to monitor Nutrition: NPO DVT ppx: SCDs/TEDs GI ppx: Protonix gtt (Prem Anna MD R1) Problem Qualifiers (1) Anemia: Qualified Code: D64.9 - Anemia, unspecified type (2) Atrial fibrillation: Qualified Code: I48.0 - Paroxysmal atrial fibrillation (3) Diabetes mellitus: Qualified Code: E11.8 - Type 2 diabetes mellitus with complication, without long-term current use of insulin (4) Cirrhosis: Qualified Code: K74.60 - Cirrhosis of liver without ascites, unspecified hepatic cirrhosis type (5) Asthma: Qualified Code: J45.909 - Uncomplicated asthma, unspecified asthma severity (6) Knee pain, acute: Qualified Code: M25.562 - Acute pain of left knee Prem Anna MD R1 May 18, 2016 08:32 Chapis Farley MD May 20, 2016 10:13
[2016-05-18] MEDS ORDERED: EPINEPHrine HCL (1:10,000) 1 MG/10 ML SYRINGE SQ ONE (08:41)
[2016-05-18] MEDS ORDERED: PROPOFOL 200 MG/20 ML AMP IV ONE (08:41)
[2016-05-18] MEDS ORDERED: PHENYLEPH/NS 1000 MCG/10 ML SYR IV ONE (09:00)
[2016-05-18] MEDS: BUDESONIDE-FORMOTEROL 80/4.5 MCG INHALER INH SCH ×2 (09:00→20:45)
[2016-05-18] MEDS: SODIUM CHLORIDE 0.9% FLUSH 10 ML FLUSH IV FLUSH SCH ×2 (09:00→20:45)
--- NOTE | 2016-05-18 09:02 | GIPROC ---
[facility] [address] [facility] [place]. [facility], [address] EGD PROCEDURE REPORT EXAM DATE: 05/18/2016 PATIENT NAME: Kal Gonzalez MR #: [id number] BIRTHDATE: 1950 ATTENDING: Amandeep Muse MD ORDER #: [id number] STORE GROUP MANAGER: Kieran Benavidez and Morelia Rushing STATUS: inpatient INDICATIONS: The patient is a 66 yr old male here for an EGD due to melena PROCEDURE PERFORMED: EGD w/ control of bleeding Panendoscopy with GI bleeding control MEDICATIONS: Per Anesthesia and None. TOPICAL ANESTHETIC: CONSENT: The patient understands the risks and benefits of the procedure and understands that these risks include, but are not limited to: sedation, allergic reaction, infection, perforation and/or bleeding. Alternative means of evaluation and treatment include, among others: physical exam, x-rays, and/or surgical intervention. The patient elects to proceed with this endoscopic procedure. medical equipment was checked for proper function. Hand hygiene and appropriate measures for infection prevention was taken. After the risks, benefits and alternatives of the procedure were thoroughly explained, Informed consent was verified, confirmed and timeout was successfully executed by the treatment team. The patient was anesthetized with topical anesthesia and the Pentax EG-[id number] endoscope was introduced through the mouth and advanced to the second portion of the duodenum. Retroflexed views revealed no abnormalities The gastroscope was then slowly withdrawn and removed. The endoscopy was otherwise normal. DUODENUM: Multiple large bleeding, round and deep ulcers with a red spot, an adherent clot and active bleeding were found in the duodenal bulb and 2nd part duodenum. Cautery was applied to the sites for 5 secs. Moderate pressure was applied to the cautery site with complete hemostasis achieved. Submucosal injection of 10ml of epinephrine 1:10,000 was performed around the bleeding site. ADVERSE EVENTS: There were no complications. IMPRESSIONS: 1. Normal endoscopy otherwise 2. Multiple large ulcers were found in the duodenal bulb and 2nd part duodenum; cautery was applied to the sites for 5 secs; with complete hemostasis achieved; Submucosal injection of 10ml of epinephrine 1:10,000 was performed around the bleeding site 3. Retroflexed views revealed no abnormalities RECOMMENDATIONS: 1. Continue PPI 2. Continue with current supportive care monitor labs if any active bleeding patient will need embolization PATIENT CONDITION: stable DISPOSITION: Inpatient REPEAT EXAM: Return 2 months EGD Amandeep Muse MD eSigned: Amandeep Muse MD 05/18/2016 9:01 AM cc: PATIENT NAME: Kal [address] Rd MR#: [id number]
[2016-05-18] MEDS: CHLORHEXIDINE 0.12% (ORAL KIT) 15 ML CUP MT SCH ×2 (09:48→20:00)
[2016-05-18] MEDS: THIAMINE HCL 100 MG TAB PO SCH (10:01)
[2016-05-18] MEDS: MULTIVITAMINS/MINERALS THERAPEUTIC TAB PO SCH (10:01)
[2016-05-18] MEDS: FOLIC ACID 1 MG TAB PO SCH (10:01)
[2016-05-18 12:44] LABS: HEMATOCRIT 23.3 % (39.0-51.0)
[2016-05-18 12:45] LABS: REVIEW FLAG FINAL
[2016-05-18] MEDS ORDERED: ePHEDrine/NS 50 MG/5 ML SYR IV ONE (14:01)
--- NOTE | 2016-05-18 14:11 | HHI.NPPN ---
Subjective History of Present Illness The aptient is a 65 yo [place] male who presented to this facility on 05/14 with complaints of continued L knee pain. Pt lethargic and not providing me with any information. Family not present. Information obtained from previous medical record. Was seen at [facility] ED on 05/11 with same complaint and was suspected at that point that he had septic arthritis and was prescribed Ibuprofen and Clindamycin. He has a PMHx of osteomyelitis with R great toe amputation in the past. It does not appear that he has any PMHx of CKD, but last labs that I see are from 2014. SCr baseline at that time as 0.8-0.9. Admitting SCr 5.38 at that improved slightly to 5.28 at consult. Interval History Patient remains intubated on a ventilator. Review of Systems General General Remarks Unobtainable today. Objective Data Data 05/17/16 05/18/16 19:00 07:00 Intake Total 837 ml 2600 ml Output Total 400 ml 1000 ml Balance 437 ml 1600 ml Intake Oral 0 ml IV Total 837 ml 2600 ml Output Urine Total 400 ml 1000 ml # Bowel Movements 3 2 Vital Signs Date Time Temp Pulse Resp B/P Pulse Ox O2 Delivery O2 Flow Rate FiO2 05/18/16 13:39 100 40 05/18/16 12:00 99.0 78 20 113/57 100 05/18/16 12:00 78 05/18/16 12:00 40 05/18/16 11:20 100 40 05/18/16 10:00 86 05/18/16 08:00 99.6 82 17 111/56 100 05/18/16 08:00 40 05/18/16 08:00 82 05/18/16 07:36 100 40 05/18/16 07:00 82 05/18/16 06:00 83 05/18/16 05:50 100 40 05/18/16 04:00 40 05/18/16 04:00 89 05/18/16 04:00 98.8 89 26 132/67 100 05/18/16 02:24 100 40 05/18/16 02:00 85 05/18/16 00:00 40 05/18/16 00:00 98.2 83 19 142/63 100 05/18/16 00:00 83 05/17/16 23:57 100 40 05/17/16 22:00 80 05/17/16 20:16 40 05/17/16 20:00 77 05/17/16 20:00 98.5 77 19 130/59 100 05/17/16 19:50 100 40 05/17/16 18:00 74 05/17/16 16:00 83 05/17/16 16:00 98.0 83 35 147/66 100 05/17/16 15:21 100 40 05/17/16 15:00 87 -: 05/18/16 1211 05/18/16 0152 Microbiology 05/17/16 Gram Stain - Final, Resulted 05/17/16 Sputum Culture - Preliminary, Resulted NO GROWTH IN 24 HOURS. 05/17/16 Urine Culture - Preliminary, Resulted NO GROWTH IN 24 HOURS. Physical Exam General Appearance: No Acute Distress, Comfortable Eyes Eye Exam: Sclera White Pulmonary Resp Exam: Clear Bilaterally, Breath Sounds Equal, No Distress Cardiology CV Exam: Regular, Normal Sinus Rhythm, Good Perfusion Gastrointestinal/Abdomen GI Exam: Soft, Non-Tender Integumentary Skin Exam: Clear, Warm Extremeties Extremities Exam: No Edema Neurologic Neuro Exam: Sedated Assessment/Plan Discussed Condition With: Patient Problem List: (1) Acute renal failure Plan: Potentially from volume depletion given hx of poor oral intake. He has also been on Ibuprofen which could have caused acute renal failure. Continue IV hydration as ordered. Patient does not appear to be clinically fluid overloaded currently. Agree with change to half normal saline in view of hyponatremia. May have some degree of CKD given his PMHx, but this is uncertain. Renal US reviewed and showed no evidence of urological obstruction as well as no increased echogenicity which is sometimes seen with CKD. Medications should eb adjusted for the patient's renal dysfunction. Avoid nephrotoxic agents such as iodinated contrast and NSAIDs. Avoid gadolinium when eGFR <30 (2) Acidosis Plan: Improving with po bicarb. Monitor (3) Anemia Plan: Endoscopy report reviewed. Apparently evidence of GI bleed with large duodenal ulcer. Serology pending (4) Diabetes mellitus Plan: Mgmt as per primary team (5) Pain of left calf Plan: Potential muscle tear versus strain as per imaging studies. No evidence of DVT (6) Cirrhosis Plan: Suggested by imaging reports. Problem Qualifiers (1) Anemia: Qualified Code: D64.9 - Anemia, unspecified type (2) Diabetes mellitus: Qualified Code: E11.8 - Type 2 diabetes mellitus with complication, without long-term current use of insulin (3) Cirrhosis: Qualified Code: K74.60 - Cirrhosis of liver without ascites, unspecified hepatic cirrhosis type Vero Johnson MD May 18, 2016 14:11
[2016-05-18] MEDS ORDERED: SODIUM CHLOR 0.9% 1000 ML INJ 1,000 ML IV ONE (15:00)
[2016-05-18 15:53] LABS: MITOCHONDRIAL ABS LESS THAN 20.0 U (())
[2016-05-18] MEDS ORDERED: EPINEPHrine HCL (1:10,000) 1 MG/10 ML SYRINGE ONE (15:54)
[2016-05-18] MEDS ORDERED: NOREPINEPHRINE-DEXTROSE DRIP 250 ML IV ONE (16:02)
[2016-05-18 16:05] LABS: REVIEW FLAG FINAL
[2016-05-18 16:07] LABS: HEMATOCRIT 17.1 % (39.0-51.0)
[2016-05-18] MEDS ORDERED: ceFAZolin 2 GM PREMIX 50 ML ONE (17:14)
[2016-05-18] MEDS ORDERED: GELATIN 12 MM/7 MM FOAM I-ARTERIAL ONE (17:52)
[2016-05-18] MEDS ORDERED: IODIXANOL 320 MG/ML 50 ML VIAL (for RAD SPEC) I-ARTERIAL ONE (17:52)
[2016-05-18] MEDS: THIAMINE INJ 100 MG in SODIUM CHLORIDE 0.9% INJ 100 ML IV SCH (18:00)
--- NOTE | 2016-05-18 18:14 | PD.RAD ---
Post Procedure Progress Note Pre Procedure Diagnosis: (1) GI bleed Post Procedure Diagnosis: (1) GI bleed Procedure Date: May 18, 2016 Supervising Radiologist: Wilver Mendoza Proceduralist/Assist: Anne-Marie Howard, RT(R)(), Blair Patel RT(R)() Anesthesia: Local, Analgesia, Conscious Sedation Plan of Activity Patient to Unit: Critical Care Patient Condition: Poor See PACS Report for procedural detail/treatment Vascular-Arterial Procedure Procedure 1 Procedure Site: Celiac (Right gastric/GDA) Procedure(s): Angiogram, Embolization Access Access Site(s): Right Femoral Artery Closure Site(s): Right vascular closure device (PerClose) Findings: Active bleed from GDA. Coil and gelfoam embolization of the same Central Venous Access Device Procedure 1 Right Internal Jugular Central Line Placement triple lumen Albanian: 7 Wilver Mendoza MD May 18, 2016 18:14
--- NOTE | 2016-05-18 18:47 | RADRPT ---
EXAM DATE/TIME: 05/18/2016 18:12 [facility] COMPARISON: CHEST SINGLE AP, May 17, 2016, 15:39. INDICATIONS : Evaluate central line placement. MEDICAL HISTORY : Osteomyelitis. Asthma. Diabetes SURGICAL HISTORY : None. ENCOUNTER: Initial ACUITY: 1 day PAIN SCORE: Non-responsive. LOCATION: Right chest FINDINGS: A right internal jugular central line has its tip in the superior vena cava. There is no pneumothorax . The endotracheal tube is in good position 4 cm above the mele. A nasogastric tube has its tip be low the diaphragm. The lungs are clear. The heart is stable. CONCLUSION: 1. Right internal jugular central line has its tip in good position in the superior vena cava. There is no pneumothorax. 2. No acute cardiopulmonary disease. Lam Tavarez MD on May 18, 2016 at 18:40 Board Certified Radiologist. This report was verified electronically.
--- NOTE | 2016-05-18 18:50 | RADRPT ---
EXAM DATE/TIME: 05/18/2016 00:00 [facility] COMPARISON: No previous studies available for comparison. INDICATIONS : Patient is in need of placement of a central line for medication administration and access. MEDICAL HISTORY : History of GI bleed, DM, asthma, duodenal ulcer. SURGICAL HISTORY : History of celiac angiogram with arterial embolization, EGD, right great toe amputation, right laparo scopic knee surgery. ENCOUNTER: Initial ACUITY: 4-6 days PAIN SCORE: 0/10 LOCATION: Ptient is vented. FLUORO TIME: IMAGE SERIES: 0 ACCESS: Right internal jugular vein DEVICE(S): 1.) 7 Namibian triple lumen 16 cm Arrow central line PROCEDURE : 1. Ultrasound guided venipuncture. 2. Fluoroscopic guidance. 3. Central line placement. The risks, benefits and alternatives to the procedure were explained and verbal and written consent w as obtained. The site was prepped in sterile fashion. Full sterile technique was used, including ca p, mask, sterile gloves and gown and a large sterile sheet. Hand hygiene and 2% chlorhexidine prep w as utilized per protocol for cutaneous antisepsis with appropriate dry time for site. The skin and subcutaneous tissues were infiltrated with local anesthetic solution. A suitable site a magnolia the vein was selected with ultrasound and fluoroscopic guidance. A small incision was made. Th e vein was accessed under direct ultrasound visualization using the micropuncture technique. The sean ropuncture set was exchanged for a 0.035 wire. The tract was dilated. The catheter was advanced int o position under direct fluoroscopic visualization. The catheter was fixed in place with suture and a sterile dressing was applied. The patient tolerated the procedure well and there were no complications. CONCLUSION: Uncomplicated line placement as above. Wilver Mendoza MD on May 18, 2016 at 18:48 Board Certified Radiologist. This report was verified electronically.
[2016-05-18] MEDS ORDERED: LACTATED RINGER'S 1000 ML INJ 1,000 ML IV ONE (19:00)
--- NOTE | 2016-05-18 19:06 | RADRPT ---
EXAM DATE/TIME: 05/18/2016 16:21 [facility] COMPARISON: No previous studies available for comparison. INDICATIONS : Patient is in need of a celiac angiogram for evaluation and embolization due to GI bleed. MEDICAL HISTORY : History of duodenal ulcer, DM, osteomyelitis, asthma. SURGICAL HISTORY : History of right knee surgery, right great toe amputation, EGD. ENCOUNTER: Initial ACUITY: 4-6 days PAIN SCORE: 0/10 LOCATION: Patient is vented. FLUORO TIME: 10.0 minutes IMAGE SERIES: 13 ACCESS SITE: Right Femoral artery CONTRAST: 1.) 105 cc Visipaque (iodixanol) MEDICATION(S): 1.) 2 g cefazolin (Ancef) IV Vancomycin within 2 hrs of procedure, Ancef (or alternative) within 1 hr of procedure. DEVICE(S): 1.) Right gastric artery 5/3 Tornado embolic coil(s) X 2 2.) Right gastroduodenal artery 6/3 Tornado embolic coil(s) X 3 3.) Right gastric artery 12/7mm Gelfoam 4.) Right gastroduodenal artery 12/7mm Gelfoam 5.) Right common femoral artery 6Fr Perclose PROCEDURE : 1. Ultrasound-guided puncture of the access site. 2. Angiography of the access site prior to closure device. 3. Conscious sedation with continuous EKG and Oximetry monitoring. 4. Percutaneous closure of the access site. 5. Angiography of the right gastric 6. Coil and Gelfoam embolization, right gastric 7. coil and Gelfoam embolization, proximal GDA. The risks, benefits and alternatives to the procedure were explained and verbal and written consent w as obtained. The site was prepped in sterile fashion. Full sterile technique was used, including ca p, mask, sterile gloves and gown and a large sterile sheet. Hand hygiene and 2% chlorhexidine and/or betadine/alcohol prep was utilized per protocol for cutaneous antisepsis. The skin and subcutaneous tissues were infiltrated with local anesthetic solution. With ultrasound and fluoroscopic guidance the selected artery was punctured and a vascular sheath was placed. Angiography of the common femoral artery was performed for evaluation prior to percutaneous closure device placement. A hook catheter was used to select the origin of the celiac. Contrast injection confirmed normal arbo rization of the celiac. Catheter and wire were directed into the common hepatic. Again, contrast inje ction confirmed position. The wire and catheter were advanced out into the right gastric artery and t he wire replaced with a stiff angle Glidewire to facilitate placement of a 5 Maori Rabbe sheath prox imal to the GDA. Contrast injection through the Rabbe sheath opacified both the hepatic and GDA vascu lature with findings of active bleeding off the GDA. Hockey-stick glide catheter and wire were manipulated into the GDA. Contrast injection confirmed acti ve bleeding from a small branch. Due to the patient's unstable condition, I did not feel it was prude nt to subselect the diminutive bleeding vessel. Therefore, the catheter and wire were manipulated int o the right gastric artery. Contrast injection confirmed position. A series of 2, 5 mm Tornado coils were deposited into the right gastric. The GDA was then embolized with a Gelfoam slurry. A series of 2, 6 mm Tornado coils were placed within the GDA and the location of a prominent branch vessel to pre vent retrograde flow into the embolized section of the GDA. Finally, the very proximal portion of the GDA with embolized with an additional 6 mm tornado coil. Hemostasis was obtained with the prescribed medicated closure device. Conscious sedation was perform ed with the prescribed dosages and duration as above in the presence of an independent trained radiol ogy nurse to assist in the monitoring of the patient. EKG and oximetry remained stable throughout e procedure. CONCLUSION: 1. Active bleeding identified off the GDA in the expected location of the duodenum. 2. Successful coil and Gelfoam embolization of the right gastric and GDA as detailed above. Wilver Mendoza MD on May 18, 2016 at 18:49 Board Certified Radiologist. This report was verified electronically.
[2016-05-18] MEDS ORDERED: SODIUM CHLOR 0.9% 250 ML INJ 250 ML IV ONE ×2 (19:45)
[2016-05-18 20:10] LABS: AUTOMATED NEUTROPHIL # 21.9 TH/MM3 (1.8-7.7); BASOPHIL % 0.2 % (0.0-2.0); EOSINOPHIL # 0.6 TH/MM3 (0-0.4); EOSINOPHIL % 2.4 % (0.0-4.0); HEMATOCRIT 28.8 % (39.0-51.0); LYMPH % 4.1 % (9.0-44.0); MEAN CELL VOLUME 85.8 FL (80.0-100.0); MEAN CORPUSCULAR HEMOGLOBIN 30.2 PG (27.0-34.0); MEAN CORPUSCULAR HGB CONC 35.3 % (32.0-36.0); MONO % 5.8 % (0.0-8.0); NEUT % 87.5 % (16.0-70.0); PLATELET COUNT 144 TH/MM3 (150-450); RED BLOOD COUNT 3.36 MIL/MM3 (4.50-5.90); RED CELL DISTRIBUTION WIDTH 16.2 % (11.6-17.2)
[2016-05-18 20:16] LABS: HEMO FLAGS AUTO DIFF
[2016-05-18 20:22] LABS: INTERNATIONAL NORMALIZED RATIO 1.4 RATIO; PROTHROMBIN TIME - PATIENT 15.5 SEC (9.8-11.6)
[2016-05-18 20:25] LABS: APTT (PATIENT) 38.3 SEC (24.3-30.1)
[2016-05-18] MEDS: LACTATED RINGER'S 1000 ML INJ 1,000 ML IV SCH (20:53)
[2016-05-18 20:58] LABS: BANDS 10 % (0-6); BASOPHILS 2 % (0-2); EOSINOPHILS 2 % (0-4); NEUTROPHIL # MANUAL DIFF 22.3 TH/MM3 (1.8-7.7); POLYS (SEG NEUTROPHILS) 79 % (16-70); WBC DIFF SAMPLE 100
[2016-05-18] MEDS ORDERED: LACTATED RINGER'S 1000 ML INJ 1,000 ML IV SCH (21:00)
[2016-05-18] MEDS ORDERED: AMIODARONE INJ 150 MG in DEXTROSE 5% IN WATER 100ML INJ 97 ML IV ONE ×2 (21:00)
[2016-05-18 21:04] LABS: TOXIC GRANULATION 1+ (NORMAL)
[2016-05-18 21:07] LABS: BURR CELLS 1+ (NORMAL)
[2016-05-18 21:09] LABS: PLATELET ESTIMATE SMEAR LOW (NORMAL); PLATELET MORPHOLOGY NORMAL (NORMAL); SCAN/DIFF FINAL DIFF MANUAL; STOMATOCYTES 1+ (NORMAL)
[2016-05-18] MEDS ORDERED: NOREPINEPHRINE 4 MG/D5W 250 ML IV SCH (22:15)
[2016-05-18] MEDS: AMIODARONE INJ 450 MG in DEXTROSE 5% IN WATE(EXCEL) INJ 241 ML IV SCH ×2 (22:16)
[2016-05-19] VITALS (19 sets, daily range): BP systolic 98–115; BP diastolic 49–58; PULSE 68–121; RESP 9–22; TEMP 98.1–98.7; O2SAT 99–100
[2016-05-19] MEDS: INSULIN ASPART SUPPLEMENTAL SCALE SQ SCH ×2 (00:37→07:00)
[2016-05-19] MEDS: CHLORHEXIDINE GLUCONATE 2 % 1 PACK (2 CLOTHS)(taper/protocol) TOPICAL SCH (02:16)
[2016-05-19] MEDS: PROPOFOL 1000 MG/100 ML INJ 100 ML IV SCH ×3 (02:16→20:56)
[2016-05-19] MEDS: PANTOPRAZOLE INJ 80 MG in SODIUM CHLORIDE 0.9% INJ 100 ML IV SCH ×2 (02:16→15:36)
[2016-05-19] MEDS: RESP: ALBUTEROL 2.5 MG/IPRATROPIUM 0.5 MG NEB (SCH) NEB ×4 (03:34→19:41)
[2016-05-19 03:43] LABS: AUTOMATED NEUTROPHIL # 13.4 TH/MM3 (1.8-7.7); BASOPHIL # 0.2 TH/MM3 (0-0.2); BASOPHIL % 1.1 % (0.0-2.0); EOSINOPHIL # 1.1 TH/MM3 (0-0.4); EOSINOPHIL % 6.5 % (0.0-4.0); LYMPH % 5.7 % (9.0-44.0); LYMPHOCYTE # 0.9 TH/MM3 (1.0-4.8); MEAN CELL VOLUME 85.3 FL (80.0-100.0); MEAN CORPUSCULAR HEMOGLOBIN 30.4 PG (27.0-34.0); MEAN CORPUSCULAR HGB CONC 35.7 % (32.0-36.0); MONO % 4.7 % (0.0-8.0); PLATELET COUNT 130 TH/MM3 (150-450); RED BLOOD COUNT 2.44 MIL/MM3 (4.50-5.90); RED CELL DISTRIBUTION WIDTH 16.2 % (11.6-17.2); WHITE BLOOD COUNT 16.3 TH/MM3 (4.0-11.0)
[2016-05-19 04:07] LABS: BICARBONATE 24.9 MEQ/L (21.0-32.0); POTASSIUM 4.4 MEQ/L (3.5-5.1)
[2016-05-19 04:14] LABS: HEMATOCRIT 20.8 % (39.0-51.0); HEMO FLAGS AUTO DIFF
[2016-05-19 04:22] LABS: CALCIUM-PROTEIN CORRECTED 8.6 MG/DL (8.5-10.1)
[2016-05-19] MEDS ORDERED: SODIUM CHLOR 0.9% 250 ML INJ 250 ML IV ONE (04:45)
[2016-05-19 05:21] LABS: APTT (PATIENT) 32.9 SEC (24.3-30.1); INTERNATIONAL NORMALIZED RATIO 1.3 RATIO; PROTHROMBIN TIME - PATIENT 14.1 SEC (9.8-11.6)
[2016-05-19] MEDS: SODIUM BICARBONATE 650 MG TAB PO SCH ×3 (05:32→21:09)
[2016-05-19] MEDS: LACTATED RINGER'S 1000 ML INJ 1,000 ML IV SCH ×2 (05:32→17:00)
[2016-05-19] MEDS: AMIODARONE INJ 450 MG in DEXTROSE 5% IN WATE(EXCEL) INJ 241 ML IV SCH ×2 (05:46)
[2016-05-19 06:44] LABS: ROULEAUX PRESENT (NORMAL)
[2016-05-19 06:45] LABS: SCAN/DIFF AUTO DIFF CONFIRMED; STOMATOCYTES 1+ (NORMAL)
[2016-05-19] MEDS: CHLORHEXIDINE 0.12% (ORAL KIT) 15 ML CUP MT SCH ×2 (08:00→22:26)
[2016-05-19] MEDS: BUDESONIDE-FORMOTEROL 80/4.5 MCG INHALER INH SCH ×2 (08:35→20:58)
[2016-05-19] MEDS ORDERED: DEXTROSE 50% IN WATER 50 ML VIAL(D50) IV PUSH PRN (08:45)
[2016-05-19] MEDS: INSULIN NovoLIN REGULAR SUPPLEMENTAL SCALE SQ SCH ×3 (08:45→21:09)
[2016-05-19] MEDS ORDERED: GLUCAGON 1 MG/ML VIAL OTHER PRN (08:45)
[2016-05-19] MEDS: MULTIVITAMINS/MINERALS THERAPEUTIC TAB PO SCH (08:49)
[2016-05-19] MEDS: FOLIC ACID 1 MG TAB PO SCH (08:49)
[2016-05-19] MEDS: SODIUM CHLORIDE 0.9% FLUSH 10 ML FLUSH IV FLUSH SCH ×2 (08:49→22:26)
[2016-05-19] MEDS: THIAMINE HCL 100 MG TAB PO SCH (08:49)
[2016-05-19] MEDS: SODIUM CHLORIDE 0.9% FLUSH 10 ML FLUSH IVF SCH (08:49)
--- NOTE | 2016-05-19 08:50 | HHI.CCPN ---
Subjective Remarks/Hospital Course Patient is a 65-year-old male with past medical history significant for type 2 diabetes, asthma and history of alcohol dependence who presents to the emergency department on 05/14/73 for evaluation of left knee pain. His workup revealed he had a elevated ESR at >140 and CRP at 26.40. Orthopaedics Dr. Bolaños. MRI did not show any evidence of infection. She was also found to be anemic with Hemoccult positive hemoglobin 6.8 and GI was consulted. Patient' s baseline creatinine is not known but he presented with BUN of 103 creatinine 5.39. Since admission patient received a total of 2 units PRBC. He underwent EGD yesterday and there was a lot of clot in the stomach. Evaluation of stomach was impossible due to large amount of blood. Dr. Muse was able to visualize a large duodenal ulcer which was not actively bleeding at that time. According to him he plan to redo the EGD tomorrow 05/18/16. Post EGD patient was transferred to the ICU yesterday evening due to high risk of recurrent bleed , need for possible IR embolization. According to the notes patient has not been recently drinking but was taking Ibuprofen 800mg po TID at home on the pain. Today regarding critical care medicine was consulted for altered mentation and A. fib with RVR. On my evaluation patient with very lethargic hardly wakes up able to state his name but very slurred speech. An ammonia level checked was normal. Patient received last dose of Ativan around 10 AM. My discussion with Dr. Muse he is planning to do endoscopy EGD again tomorrow. Because of questionable airway protection, GCS about 8 and upper GIB and this will also facilitate bedside EGD tomorrow 05/18 Patient is sedated with Diprivan and intubated. On Protonix and bicarb drips. Afebrile. For EGD today. 05/19 Patient s/p EGD yesterday with showed multiple duodenal ulcers with visible vessel s/p EPi injection and cauterization. Late afternoon yesterday became rebled became hypotensive and started on Levophed now 7 mics. He was given 4 units PRBC for Hgb 5.6 underwent arteriogram with coil and embolization of right gastric and GDA. Given additional 1unit PRBC, 2u FFP and 1u PLT overnight. Hgb 7.4 this morning from 10.1 last night. Placed on Amio drip overnight sedated with Diprivan. Objective Vital Signs Date Time Temp Pulse Resp B/P Pulse Ox O2 Delivery O2 Flow Rate FiO2 05/19/16 08:01 100 40 05/19/16 06:00 73 05/19/16 04:00 98.4 18 104/55 05/17/16 08:15 Nasal Cannula 2.00 Intake and Output 05/18/16 05/18/16 05/19/16 08:00 16:00 00:00 Intake Total 1390 ml 1014 ml 3165 ml Output Total 400 ml 375 ml 275 ml Balance 990 ml 639 ml 2890 ml Result Diagram: 05/19/16 0300 05/19/16 0300 Other Results Laboratory Tests Test 05/18/16 05/18/16 05/18/16 05/18/16 12:11 15:46 16:09 19:34 Hemoglobin 8.2 GM/DL 5.6 GM/DL Hematocrit 23.3 % 17.1 % Blood Type A POSITIVE Crossmatch Leukocyte-Reduced Red Blood Cells Blood Bank Comment Test 05/18/16 05/19/16 05/19/16 05/19/16 20:00 03:00 04:33 04:35 White Blood Count 25.0 TH/MM3 16.3 TH/MM3 Red Blood Count 3.36 MIL/MM3 2.44 MIL/MM3 Hemoglobin 10.1 GM/DL 7.4 GM/DL Hematocrit 28.8 % 20.8 % Mean Corpuscular Volume 85.8 FL 85.3 FL Mean Corpuscular Hemoglobin 30.2 PG 30.4 PG Mean Corpuscular Hemoglobin 35.3 % 35.7 % Concent Red Cell Distribution Width 16.2 % 16.2 % Platelet Count 144 TH/MM3 130 TH/MM3 Mean Platelet Volume 7.8 FL 7.7 FL Neutrophils (%) (Auto) 87.5 % 82.0 % Lymphocytes (%) (Auto) 4.1 % 5.7 % Monocytes (%) (Auto) 5.8 % 4.7 % Eosinophils (%) (Auto) 2.4 % 6.5 % Basophils (%) (Auto) 0.2 % 1.1 % Neutrophils # (Auto) 21.9 TH/MM3 13.4 TH/MM3 Lymphocytes # (Auto) 1.0 TH/MM3 0.9 TH/MM3 Monocytes # (Auto) 1.4 TH/MM3 0.8 TH/MM3 Eosinophils # (Auto) 0.6 TH/MM3 1.1 TH/MM3 Basophils # (Auto) 0.0 TH/MM3 0.2 TH/MM3 CBC Comment AUTO DIFF AUTO DIFF Differential Total Cells 100 Counted Neutrophils % (Manual) 79 % Band Neutrophils % 10 % Lymphocytes % 4 % Monocytes % 3 % Eosinophils % 2 % Basophils % 2 % Neutrophils # (Manual) 22.3 TH/MM3 Differential Comment FINAL DIFF AUTO DIFF MANUAL CONFIRMED Toxic Granulation 1+ Platelet Estimate LOW Platelet Morphology Comment NORMAL Stomatocytes 1+ 1+ [place] Cells 1+ Prothrombin Time 15.5 SEC 14.1 SEC Prothromb Time International 1.4 RATIO 1.3 RATIO Ratio Activated Partial 38.3 SEC 32.9 SEC Thromboplast Time Fibrinogen 246 mg/dL Rouleau PRESENT Sodium Level 145 MEQ/L Potassium Level 4.4 MEQ/L Chloride Level 111 MEQ/L Carbon Dioxide Level 24.9 MEQ/L Anion Gap 9 MEQ/L Blood Urea Nitrogen 97 MG/DL Creatinine 2.86 MG/DL Estimat Glomerular Filtration 22 ML/MIN Rate Random Glucose 267 MG/DL Calcium Level 7.1 MG/DL Protein Corrected Calcium 8.6 MG/DL Total Protein 4.4 GM/DL Blood Type A POSITIVE Crossmatch Leukocyte-Reduced Red Blood Cells Blood Bank Comment Imaging Last Impressions Chest X-Ray 05/18/16 180 Signed Impressions: Service Date/Time: Wednesday, May 18, 2016 18:12 - CONCLUSION: 1. Right internal jugular central line has its tip in good position in the superior vena cava. There is no pneumothorax. 2. No acute cardiopulmonary disease. Lam Tavarez MD Central Venous Line 05/18/16 0000 Signed Impressions: Service Date/Time: Wednesday, May 18, 2016 00:00 - CONCLUSION: Uncomplicated line placement as above. Wilver Mendoza MD Celiac/Hepatic Arteriogram 05/18/16 0000 Signed Impressions: Service Date/Time: Wednesday, May 18, 2016 16:21 - CONCLUSION: 1. Active bleeding identified off the GDA in the expected location of the duodenum. 2. Successful coil and Gelfoam embolization of the right gastric and GDA as detailed above. Wilver Mendoza MD Renal Ultrasound 3/28/17 0000 Signed Impressions: Service Date/Time: Sunday, May 15, 2016 10:50 - CONCLUSION: 1. Kidneys within normal limits. 2. Findings suggesting cirrhosis and portal venous hypertension with varices and recanalized paraumbilical vein. Get Franco MD Lower Extremity Ultrasound 05/15/16 Signed Impressions: Service Date/Time: Sunday, May 15, 2016 08:41 - CONCLUSION: 1. No evidence of lower extremity DVT on the right or left. 2. Elongated fluid in the proximal to mid left calf. The rectal diagnosis is muscle tear versus dissecting Santo cyst. 3. 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 Get Franco MD Knee MRI 05/15/16 Signed Impressions: Service Date/Time: Sunday, May 15, 2016 16:51 - CONCLUSION: 1. Prominent edema in the medial calf with prominent fluid signal between the medial gastrocnemius and soleus muscles. Differential diagnosis is ruptured Santo cyst versus muscle strain. No fluid-filled gap in muscle fibers is seen. There is also adjacent superficial soft tissue edema in this region. 2. Small horizontal tear of the body of the medial meniscus. 3. Small joint effusion. 4. Mild reactive bony edema in the patella. 5. No evidence of osteomyelitis. 6. Moderate focal medial facet patellar chondromalacia. Get Franco MD Knee X-Ray 05/14/16 Signed Impressions: Service Date/Time: Saturday, May 14, 2016 15:44 - CONCLUSION: Negative for fracture or dislocation. Follow up in 7-10 days is suggested if symptoms persist. Alexy Padron MD FACR Objective Remarks GENERAL: Patient is 66 yo intubated and sedated, SKIN: Warm and dry. HEAD: Normocephalic. EYES: No scleral icterus. No injection or drainage. NECK: Supple, trachea midline. No JVD or lymphadenopathy. CARDIOVASCULAR: Regular rate and rhythm without murmurs, gallops, or rubs. RESPIRATORY: Breath sounds equal bilaterally. No accessory muscle use. GASTROINTESTINAL: Abdomen soft, non-tender, nondistended. MUSCULOSKELETAL: No cyanosis, or edema. Neuro; Sedated and intubated. A/P Assessment and Plan NEURO: Acute encephalopathy Alcohol dependence -On Diprivan infusion for sedation. Daily sedation vacation when appropriate -Use when necessary Ativan supplement thiamine and multivitamin RESP: Respiratory insufficiency History of asthma -Continue with vent support keep sat >92% - DuoNeb every 6 hours and when necessary, ventilator bundle CV: Atrial fibrillation with rapid ventricular response -Wean off Levophed drip Monitor HR and BP keep MAP>65mmHg.- On Amio drip 0.5 -Echo 05/17: EF 45-50%, no RWMA -On LR @100ml/hr GI/HEME: Upper GI bleed/large duodenal ulcer Severe anemia requiring transfusion Liver cirrhosis -s/p Arteriogram with coli and embolization of right gastric and GDA 05/18 -NPO, IV Protonix gtt -s/p repeat EGD 05/18 which showed duodenal ulcers with visible vessels s/p Epi injection and cauterization -EGD 05/16/16 shows large duodenal ulcer. Unable to visualize most of stomach and duodenum due to large amount of clot present Monitor CBC -Received 4 units PRBC since admission, s/p additional 5 units PRBC total since yesterday, 2u FFP, 1u PLT : Acute kidney failure -Monitor renal function, I/O's, avoid nephrotoxins. -Renal function is improving with Cr: 2.86 today from 3.16, UO: 775 ml in 24 hrs -On PO bicarb 650mg Q8 -Nephrology Dr. Johnson is following. ID: -Place on Rocephin 1gram daily. Monitor for signs of infection ( Fever, WBC) ENDO: -SSI( low scale ) for glycemic control) PROPH: -Bilateral lower extremity SCDs. Chemical DVT prophylaxis contraindicated. Continue Protonix infusion LINES: -Utilize peripheral IVs, Right IJ CVP placed 05/18 CC time 30 min excluding procedure time Sandy Ovalle MD May 19, 2016 08:50
[2016-05-19 09:10] LABS: REVIEW FLAG FINAL
--- NOTE | 2016-05-19 09:46 | HHI.GIFU ---
Subjective Remarks Resting in bed. Sedated on vent. Pt has continued to pass some dark blood/ clots in rectal bag, but no blood aspirated from NGT. (Sumi Sweeney) Objective Vitals I&O Vital Signs Date Time Temp Pulse Resp B/P Pulse Ox O2 Delivery O2 Flow Rate FiO2 05/19/16 08:01 100 40 05/19/16 06:00 73 05/19/16 04:06 100 40 05/19/16 04:00 98.4 118 18 104/55 100 05/19/16 04:00 118 05/19/16 04:00 40 05/19/16 02:00 119 05/19/16 01:03 100 40 05/19/16 00:00 40 05/19/16 00:00 98.7 121 16 100/57 100 05/19/16 00:00 121 05/18/16 22:00 126 05/18/16 20:08 99 40 05/18/16 20:00 148 05/18/16 20:00 98.8 148 19 108/57 100 05/18/16 20:00 40 05/18/16 18:00 154 05/18/16 16:45 98 60 05/18/16 16:00 40 05/18/16 16:00 130 05/18/16 16:00 96.3 89 26 132/67 100 05/18/16 15:20 100 40 05/18/16 15:00 130 05/18/16 14:00 83 05/18/16 13:39 100 40 05/18/16 12:00 99.0 78 20 113/57 100 05/18/16 12:00 78 05/18/16 12:00 40 05/18/16 11:20 100 40 05/18/16 10:00 86 I/O 05/18/16 05/18/16 05/18/16 05/19/16 05/19/16 05/19/16 07:00 15:00 23:00 07:00 15:00 23:00 Intake Total 1390 ml 1014 ml 3165 ml 1435 ml Output Total 400 ml 375 ml 275 ml 125 ml Balance 990 ml 639 ml 2890 ml 1310 ml Intake Oral 0 ml 0 ml 0 ml IV Total 1390 ml 1014 ml 1415 ml 935 ml Packed Cells 1000 ml 500 ml FFP 500 ml Platelets 250 ml Output Urine Total 400 ml 375 ml 275 ml 125 ml # Bowel Movements 1 3 0 1 Laboratory Laboratory Tests Test 05/18/16 05/18/16 05/18/16 05/18/16 12:11 15:46 16:09 19:34 Hemoglobin 8.2 5.6 Hematocrit 23.3 17.1 Blood Type A POSITIVE Crossmatch Leukocyte-Reduced Red Blood Cells Blood Bank Comment Test 05/18/16 05/19/16 05/19/16 05/19/16 20:00 03:00 04:33 04:35 White Blood Count 25.0 16.3 Red Blood Count 3.36 2.44 Hemoglobin 10.1 7.4 Hematocrit 28.8 20.8 Mean Corpuscular Volume 85.8 85.3 Mean Corpuscular Hemoglobin 30.2 30.4 Mean Corpuscular Hemoglobin 35.3 35.7 Concent Red Cell Distribution Width 16.2 16.2 Platelet Count 144 130 Mean Platelet Volume 7.8 7.7 Neutrophils (%) (Auto) 87.5 82.0 Lymphocytes (%) (Auto) 4.1 5.7 Monocytes (%) (Auto) 5.8 4.7 Eosinophils (%) (Auto) 2.4 6.5 Basophils (%) (Auto) 0.2 1.1 Neutrophils # (Auto) 21.9 13.4 Lymphocytes # (Auto) 1.0 0.9 Monocytes # (Auto) 1.4 0.8 Eosinophils # (Auto) 0.6 1.1 Basophils # (Auto) 0.0 0.2 CBC Comment AUTO DIFF AUTO DIFF Differential Total Cells 100 Counted Neutrophils % (Manual) 79 Band Neutrophils % 10 Lymphocytes % 4 Monocytes % 3 Eosinophils % 2 Basophils % 2 Neutrophils # (Manual) 22.3 Differential Comment FINAL DIFF AUTO DIFF MANUAL CONFIRMED Toxic Granulation 1+ Platelet Estimate LOW Platelet Morphology Comment NORMAL Stomatocytes 1+ 1+ Dallas Cells 1+ Prothrombin Time 15.5 14.1 Prothromb Time International 1.4 1.3 Ratio Activated Partial 38.3 32.9 Thromboplast Time Fibrinogen 246 Rouleau PRESENT Sodium Level 145 Potassium Level 4.4 Chloride Level 111 Carbon Dioxide Level 24.9 Anion Gap 9 Blood Urea Nitrogen 97 Creatinine 2.86 Estimat Glomerular Filtration 22 Rate Random Glucose 267 Calcium Level 7.1 Protein Corrected Calcium 8.6 Total Protein 4.4 Blood Type A POSITIVE Crossmatch Leukocyte-Reduced Red Blood Cells Blood Bank Comment Test 05/19/16 08:25 Hemoglobin 7.4 Hematocrit 22.0 Date/Time Procedure Status Source Growth 05/17/16 21:30 Urine Culture - Preliminary Resulted Urine Catheterized Urine NO GROWTH IN 24 HOURS. 05/17/16 14:45 Gram Stain - Final Resulted Sputum Endotracheal 05/17/16 14:45 Sputum Culture - Preliminary Resulted Sputum Endotracheal NO GROWTH IN 24 HOURS. 05/14/16 23:18 Urine Culture - Final Complete Urine Clean Catch NO GROWTH IN 48 HOURS. 05/14/16 15:20 Aerobic Blood Culture - Preliminary Resulted Blood Peripheral NO GROWTH IN 4 DAYS 05/14/16 15:20 Anaerobic Blood Culture - Preliminary Resulted Blood Peripheral NO GROWTH IN 4 DAYS Imaging Last Impressions Chest X-Ray 05/18/16 1802 Signed Impressions: Service Date/Time: Wednesday, May 18, 2016 18:12 - CONCLUSION: 1. Right internal jugular central line has its tip in good position in the superior vena cava. There is no pneumothorax. 2. No acute cardiopulmonary disease. Lam Tavarez MD Central Venous Line 05/18/16 0000 Signed Impressions: Service Date/Time: Wednesday, May 18, 2016 00:00 - CONCLUSION: Uncomplicated line placement as above. Wilver Mendoza MD Celiac/Hepatic Arteriogram 05/18/16 0000 Signed Impressions: Service Date/Time: Wednesday, May 18, 2016 16:21 - CONCLUSION: 1. Active bleeding identified off the GDA in the expected location of the duodenum. 2. Successful coil and Gelfoam embolization of the right gastric and GDA as detailed above. Wilver Mendoza MD Renal Ultrasound 05/15/16 0000 Signed Impressions: Service Date/Time: Sunday, May 15, 2016 10:50 - CONCLUSION: 1. Kidneys within normal limits. 2. Findings suggesting cirrhosis and portal venous hypertension with varices and recanalized paraumbilical vein. Get Franco MD Lower Extremity Ultrasound 05/15/16 0000 Signed Impressions: Service Date/Time: Sunday, May 15, 2016 08:41 - CONCLUSION: 1. No evidence of lower extremity DVT on the right or left. 2. Elongated fluid in the proximal to mid left calf. The rectal diagnosis is muscle tear versus dissecting Santo cyst. 3. 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 Get Franco MD Knee MRI 05/15/16 0000 Signed Impressions: Service Date/Time: Sunday, May 15, 2016 16:51 - CONCLUSION: 1. Prominent edema in the medial calf with prominent fluid signal between the medial gastrocnemius and soleus muscles. Differential diagnosis is ruptured Santo cyst versus muscle strain. No fluid-filled gap in muscle fibers is seen. There is also adjacent superficial soft tissue edema in this region. 2. Small horizontal tear of the body of the medial meniscus. 3. Small joint effusion. 4. Mild reactive bony edema in the patella. 5. No evidence of osteomyelitis. 6. Moderate focal medial facet patellar chondromalacia. Get Franco MD Knee X-Ray 05/14/16 0000 Signed Impressions: Service Date/Time: Saturday, May 14, 2016 15:44 - CONCLUSION: Negative for fracture or dislocation. Follow up in 7-10 days is suggested if symptoms persist. Alexy Padron MD FACR Physical Exam HEENT: Normocephalic; atraumatic; no jaundice CHEST: Resp. even/shallow. OETT CARDIAC: Irregular. On vasopressors ABDOMEN: Soft, nondistended, no hepatosplenomegaly; bowel sounds are present in all four quadrants. No blood from NGT. Dark blood/clots from rectal bag EXTREMITIES: Generalized edema. SKIN: Generalized pallor CUSHION SEWER: Sedated on vent. (Sumi Sweeney) Assessment and Plan Plan ASSESSMEN:T - GIB, Melanotic stool. and recent Ibuprofen use. On admission, he was noted to have HH 6.8/20.6. S/P EGD (05/16/16)----> 1. The esophagus appeared normal 2. Large clots in the fundus that obscured this portion of the stomach the rest of the stomach was unremarkable 3. I was only able to advance the scope into the duodenal bulb I was not able to make the sweep into the second portion of the duodenum due to a large clot that obscured vision and there was a large ulcer in the duodenal bulb 4. Large non-bleeding ulcer was found in the duodenal bulb 5. Normal endoscopy otherwise 6. Retroflexed views revealed large clots the obscured vision of the fundus. Rpt EGD (05/18/16)----> 1. Normal endoscopy otherwise 2. Multiple large ulcers were found in the duodenal bulb and 2nd part duodenum; cautery was applied to the sites for 5 secs; with complete hemostasis achieved; Submucosal injection of 10ml of epinephrine 1:10,000 was performed around the bleeding site 3. Retroflexed views revealed no abnormalities. Continued to have bleeding and therefore went to IR (05/19/16)----> active bleed from GDA, s/p coil and gelfoam embolization. He received 5 units of blood yesterday for H/H 5.6. This came up to 10.1, but then dropped to 7.4/20.8 at 0300. He received an additional unit PRBC but repeat H/H after this was 7.4/22.0. - Anemia, acute blood loss. S/P 11 units PRBC, 2 units FFP, 1plt. 7.4/22.0. - Multiple large duodenal bulb and duodenal ulcers. S/P endoscopic tx, embolization. Pt still passing blood and H/H dropping. - Elevated LFT. T. Bili 1.6. He has a hx of heavy alcohol use. Hepatitis negative, KRYSTLE negative, AMSA negative, AMA neg, AFP 1.6, Ceruloplasmin 35, Alpha 1 Antitrypsin 365. Ferritin 582, Iron Saturation 60.5. - JOSE. Creat 2.86. Renal following. - Left knee pain with elevated ESR at >140 and CRP at 26.40. Orthopaedics are following and the workup is in progress. - Metabolic encephalopathy. Will check ammonia, but this may also be related to his acute renal failure. PLAN: - NPO - Cont. Protonix Gtt - Agree with transfusion - Monitor HH - Transfuse as necessary - Supportive care - Will consult GS for evaluation, as he has ongoing GI bleeding despite failed endoscopic treatment and embolization. - Further recommendations to follow based on results of above - PT seen and examined by Dr. Mejía and myself and this note is written on his behalf (Sumi Sweeney) Physician Comments Seen and examined with Ms. Zahra ROGERS, melena in rectal bag and drop in Hb. Has failed endoscopic and IR treatments. General surgery consulted. Transfuse as needed. IV protonix drip. Discussed with Dr. Govea, and nurse (Rosaura Mejía MD) Sumi Sweeney [facility] May 19, 2016 09:46 Rosaura Mejía MD May 19, 2016 12:59
--- NOTE | 2016-05-19 10:46 | HHI.FPPN ---
Subjective Remarks Patient intubated, sedated. Patient s/p transfusion PRBCs x 1 unit. (Sofi Flood MD) Objective Vitals Vital Signs Date Time Temp Pulse Resp B/P Pulse Ox O2 Delivery O2 Flow Rate FiO2 05/19/16 10:00 71 05/19/16 08:01 100 40 05/19/16 08:00 40 05/19/16 08:00 72 05/19/16 08:00 98.3 71 9 115/58 100 05/19/16 06:00 73 05/19/16 04:06 100 40 05/19/16 04:00 98.4 118 18 104/55 100 05/19/16 04:00 118 05/19/16 04:00 40 05/19/16 02:00 119 05/19/16 01:03 100 40 05/19/16 00:00 40 05/19/16 00:00 98.7 121 16 100/57 100 05/19/16 00:00 121 05/18/16 22:00 126 05/18/16 20:08 99 40 05/18/16 20:00 148 05/18/16 20:00 98.8 148 19 108/57 100 05/18/16 20:00 40 05/18/16 18:00 154 05/18/16 16:45 98 60 05/18/16 16:00 40 05/18/16 16:00 130 05/18/16 16:00 96.3 89 26 132/67 100 05/18/16 15:20 100 40 05/18/16 15:00 130 05/18/16 14:00 83 05/18/16 13:39 100 40 05/18/16 12:00 99.0 78 20 113/57 100 05/18/16 12:00 78 05/18/16 12:00 40 05/18/16 11:20 100 40 I/O 05/18/16 05/18/16 05/18/16 05/19/16 05/19/16 05/19/16 07:00 15:00 23:00 07:00 15:00 23:00 Intake Total 1390 ml 1014 ml 3165 ml 1435 ml Output Total 400 ml 375 ml 275 ml 125 ml Balance 990 ml 639 ml 2890 ml 1310 ml Intake Oral 0 ml 0 ml 0 ml IV Total 1390 ml 1014 ml 1415 ml 935 ml Packed Cells 1000 ml 500 ml FFP 500 ml Platelets 250 ml Output Urine Total 400 ml 375 ml 275 ml 125 ml # Bowel Movements 1 3 0 1 (Sofi Flood MD) Result Diagram: 05/19/16 0825 05/19/16 0300 Objective Remarks GEN: Well-developed, well-nourished patient. No acute distress. CV: Regular rate and rhythm without obvious murmurs LUNGS: Clear to auscultation bilaterally. Normal respiratory effort. No wheezes , rales, rhonchi. EXT: Left calf 1+ edema and tender to palpation. Erythematous over left tibia. Minimal left knee effusion, warm to touch NEURO/PSYCH: Intubated, sedated (Sofi Flood MD) Urinary Catheter: Yes Assessment to: Continue Donaldson insert reason: Measure Accurate Output (oSfi Flood MD) Vascular Central Line Catheter: Yes Assessment to: Continue Date of Insertion: May 18, 2016 Line: Central Venous Catheter Side: Right Location: Internal, Jugular (Sofi Flood MD) A/P Assessment and Plan 65 y/o male with history of DM and osteomyelitis presents with left leg pain as well as GI bleed, diabetes mellitus. Admitted for anemia and JOSE and left knee pain. dw: Dr. Farley Discharge Planning unclear, pending critical care course (Sofi Flood MD) Attending Attestation Patient seen and examined. Case reviewed and discussed with the resident team. Agree with plan of care as discussed with me and documented in the resident note. multiple problems, hope for a stop to his GI bleed (Chapis Farley MD) Problem List: (1) Acute encephalopathy Status: Acute Plan: Unclear etiology. DDx: delirium, alcohol withdrawal, metabolic encephalopathy, uremia Ammonia level normal -Critical care consulted: appreciate recs -Pt intubated 05/17 due to lethargy and airway protection -Sedated and will proceed with EGD today -Cpap trials after EGD today Abx: Rocephin 1 g IV qd (05/19 - ) (2) JOSE (acute kidney injury) Status: Acute Plan: Ddx includes pre-renal (dehydration/hypovolemia) vs renal (ATN). Concern for underlying CKD. Associated with decreased eating and drinking prior to presentation. Baseline Cr is 0.83 from 2 years ago, admission Cr is 5.38. Pre- sedation confusion likely due to uremia. -Renal function improving -Strict I/Os Nephrology consulted: appreciate recommendations * Serologies pending * PO biocarb supplement * Avoid nephrotoxic agents Imaging: * Renal US: Kidneys unremarkable. Finding suggesting cirrhosis and portal venous HTN with varices and recanalized paraumbilical vein. (3) Anemia Status: Acute Plan: No history of ulcers or blood thinners. Has some recent NSAID use and history of alcohol abuse. DDx: gastric/duodenal ulcer, esophageal varices, diverticulosis, colorectal cancer, polyps, IBD, hemorrhoids.H/H on admission was 6.8/20.6. Admission BUN/Cr ratio 19, suggestive of upper GI bleed. S/p transfusion on 05/19 due to hemoglobin remaining low at 7.4 Echo: EF 45-50%, mild MR, mild TR -Tachycardia and SOB likely due to anemia. CXR unremarkable except for cardiomegaly. -Hemoccult in ED positive. -H&H q6H -Transfuse if Hb<8 GI consulted: appreciate recommendations * s/p EGD 05/16 - Large clots in fundus, non-bleeding ulcer in duodenal bulb. Normal esophagus * Repeat EGD 05/18 - duodenal ulcers with visible vessels, cauterized -Recommend embolization with IR if evidence of active bleeding * Liver serologies negative Medications: * Protonix drip * Hold all anticoagulation (Coumadin, Plavix, Aspirin) (4) Atrial fibrillation Status: Acute Plan: Pt developed Afib with RVR. No history of Afib per patient. Given lopressor, cardizem. S/p cardizem infusion 05/17. See echo results above Holding chemo ppx due to GI bleed -Continue to monitor tele, heart rate -Fluids as below -May need to restart cardizem PRN (5) Diabetes mellitus Status: Acute Plan: Hold home metformin and glipizide. A1c of 6.1, could be falsely low due to blood loss anemia. Bedside glucose remains elevated in 300-400s -Low-dose sliding scale -Hold Levemir 10units BID, patient NPO (6) Cirrhosis Status: Acute Plan: Significant alcohol history. Denies alcohol withdrawals. No seizures in past. Cirrhosis seen on Renal US with evident of portal venous HTN with varices. Hepatitis panel negative. -Ammonia WNL -Rally pack -CIWA protocol See more details plan under anemia (7) Asthma Status: Chronic Plan: -Continue home inhaler, Advair -Albuterol PRN (8) Knee pain, acute Status: Acute Plan: Likely due to muscle tear and/or Santo cyst rupture contributing to pain and associated edema. -Ortho consulted: Appreciate recommendations. Does not look like septic joint because there is no significant effusion. -S/p antibiotics (Vanc 05/14-; Linezolid 05/15-05/16; Cefepime 05/14-05/16) -Pain control with Tylenol PO/IV to not exceed 3000mg -Would benefit for PT once acute pain and mental status improves. Imaging: * MRI: Prominent edema in the medial calf with prominent fluid signal between the medial gastrocnemius and soleus muscles. DDX is ruptured Santo cyst versus muscle strain. Small joint effusion. No evidence of osteomyelitis. * LE ultrasound: No evidence of DVT. Elongated fluid in the proximal to mid left calf. DDX is muscle tear versus dissecting Santo cyst. 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 * Left knee XR: Negative for fracture or dislocation (9) FEN Status: Acute Plan: Fluids: 1/2NS @ 100mls/hr Electrolytes: unremarkable; continue to monitor Nutrition: NPO DVT ppx: SCDs/TEDs GI ppx: Protonix gtt (Sofi Flood MD) Problem Qualifiers (1) Anemia: Qualified Code: D64.9 - Anemia, unspecified type (2) Atrial fibrillation: Qualified Code: I48.0 - Paroxysmal atrial fibrillation (3) Diabetes mellitus: Qualified Code: E11.8 - Type 2 diabetes mellitus with complication, without long-term current use of insulin (4) Cirrhosis: Qualified Code: K74.60 - Cirrhosis of liver without ascites, unspecified hepatic cirrhosis type (5) Asthma: Qualified Code: J45.909 - Uncomplicated asthma, unspecified asthma severity (6) Knee pain, acute: Qualified Code: M25.562 - Acute pain of left knee Sofi Flood MD May 19, 2016 10:46 Chapis Farley MD May 20, 2016 14:34
[2016-05-19] MEDS: cefTRIAXone INJ 1,000 MG in SODIUM CHLORIDE 0.9% INJ 100 ML IV SCH (10:52)
--- NOTE | 2016-05-19 12:29 | HHI.NPPN ---
Subjective History of Present Illness The aptient is a 65 yo [place] male who presented to this facility on 05/14 with complaints of continued L knee pain. Pt lethargic and not providing me with any information. Family not present. Information obtained from previous medical record. Was seen at [facility] ED on 05/11 with same complaint and was suspected at that point that he had septic arthritis and was prescribed Ibuprofen and Clindamycin. He has a PMHx of osteomyelitis with R great toe amputation in the past. It does not appear that he has any PMHx of CKD, but last labs that I see are from 2014. SCr baseline at that time as 0.8-0.9. Admitting SCr 5.38 at that improved slightly to 5.28 at consult. Interval History Pt remains intubated and sedated. Underwent arteriogram with embolization of GDA on 05/18 (Nini Ahumada) Review of Systems General General Remarks Unobtainable today. (Nini Ahumada) Objective Data Data 05/18/16 05/19/16 18:59 06:59 Intake Total 1014 ml 4600 ml Output Total 375 ml 400 ml Balance 639 ml 4200 ml Intake Oral 0 ml IV Total 1014 ml 2350 ml Packed Cells 1500 ml FFP 500 ml Platelets 250 ml Output Urine Total 375 ml 400 ml # Bowel Movements 3 1 Vital Signs Date Time Temp Pulse Resp B/P Pulse Ox O2 Delivery O2 Flow Rate FiO2 05/19/16 10:00 71 05/19/16 08:01 100 40 05/19/16 08:00 40 05/19/16 08:00 72 05/19/16 08:00 98.3 71 9 115/58 100 05/19/16 06:00 73 05/19/16 04:06 100 40 05/19/16 04:00 98.4 118 18 104/55 100 05/19/16 04:00 118 05/19/16 04:00 40 05/19/16 02:00 119 05/19/16 01:03 100 40 05/19/16 00:00 40 05/19/16 00:00 98.7 121 16 100/57 100 05/19/16 00:00 121 05/18/16 22:00 126 05/18/16 20:08 99 40 05/18/16 20:00 148 05/18/16 20:00 98.8 148 19 108/57 100 05/18/16 20:00 40 05/18/16 18:00 154 05/18/16 16:45 98 60 05/18/16 16:00 40 05/18/16 16:00 130 05/18/16 16:00 96.3 89 26 132/67 100 05/18/16 15:20 100 40 05/18/16 15:00 130 05/18/16 14:00 83 05/18/16 13:39 100 40 (Nini Ahumada) -: 05/19/16 0825 05/19/16 0300 Medication Review Current Medications Medications (Trade) Dose Ordered Sig/Irene Route Start Time Stop Time Status Last Admin (NS Flush) 2 ml UNSCH PRN IV FLUSH 05/14/16 17:30 (NS Flush) 2 ml BID IV FLUSH 05/14/16 21:00 05/19/16 08:49 (Zofran Inj) 4 mg Q6H PRN IVP 05/14/16 17:30 (Narcan Inj) 0.4 mg UNSCH PRN IV 05/14/16 17:30 (Symbicort 80-4.5 Mcg Inh) 2 puff BID INH 05/14/16 21:00 05/17/16 08:46 (D50w (Vial) Inj) 25 ml UNSCH PRN IV PUSH 05/14/16 17:45 (Glucagon Inj) 1 mg UNSCH PRN OTHER 05/14/16 17:45 (Romazicon Inj) 0.2 mg Q1M PRN IV PUSH 05/14/16 20:00 (Ativan) 1 mg Q4H PRN PO 05/14/16 20:00 (Ativan Inj) 1 mg Q4H PRN IV PUSH 05/14/16 20:00 (Ativan) 2 mg Q2H PRN PO 05/14/16 20:00 (Ativan Inj) 2 mg Q2H PRN IV PUSH 05/14/16 20:00 05/17/16 10:16 (Ativan Inj) 2 mg Q1H PRN IV PUSH 05/14/16 20:00 (Ativan Inj) 2 mg Q15M PRN IV PUSH 05/14/16 20:00 (Sodium Bicarbonate) 650 mg Q8HR PO 05/15/16 14:00 4/1/17 05:32 (Tylenol) 650 mg Q6HR PRN PO 05/15/16 20:00 (Folate) 1 mg DAILY PO 05/17/16 09:00 05/22/16 08:59 05/19/16 08:49 (Vitamin B1) 100 mg DAILY PO 05/17/16 09:00 05/19/16 08:49 Multivitamins/ Minerals Therapeutic 1 tab 1 tab DAILY PO 05/17/16 09:00 05/22/16 08:59 05/19/16 08:49 (Protonix Inj/NS Inj) 100 ml @ 10 mls/hr Q10H IV 05/16/16 16:00 05/19/16 02:16 Miscellaneous Information Patient in critical care unit? Ass... [id number] .XX 05/16/16 21:15 (Chlorhexidine 2% Cloth) 3 pack DAILY@04 TOPICAL 05/17/16 04:00 05/21/16 04:01 05/19/16 02:16 (Chlorhexidine 2% Cloth) 3 pack UNSCH PRN TOPICAL 05/16/16 21:15 05/21/16 21:11 Chlorhexidine Gluconate 15 ml 15 ml BID@08,20 MT 05/17/16 20:00 05/19/16 08:00 Propofol 100 ml @ 0 mls/hr TITRATE IV 05/17/16 16:00 05/19/16 02:16 (fentaNYL DRIP) 250 ml @ 0 mls/hr TITRATE IV 05/17/16 16:00 (NS Flush) DAILY IVF 05/19/16 09:00 05/19/16 08:49 Sodium Chloride UNSCH PRN IVF 05/18/16 18:15 Lactated Ringer's 1,000 ml @ 100 mls/hr Q10H IV 05/18/16 21:00 05/19/16 05:32 Amiodarone HCl 450 mg/Dextrose 250 ml @ 0 mls/hr CONTINUOUS IV 05/18/16 21:00 05/19/16 05:46 Norepinephrine Bitartrate 250 ml @ 0 mls/hr TITRATE IV 05/18/16 22:15 05/18/16 22:17 (NS 250 ml Inj) 250 ml @ 15 mls/hr ONCE ONCE IV 05/19/16 04:45 05/19/16 21:24 05/19/16 04:45 (D50w (Vial) Inj) 25 ml UNSCH PRN IV PUSH 05/19/16 08:45 (Glucagon Inj) 1 mg UNSCH PRN OTHER 05/19/16 08:45 Insulin Human Regular 1 1 Q6H SQ 05/19/16 08:45 (Rocephin Inj/NS Inj) 100 ml @ 200 mls/hr Q24H IV 05/19/16 09:00 05/19/16 10:52 (Nnii Ahumada) Physical Exam General Appearance: No Acute Distress, Comfortable (Nini Ahumada) Eyes Eye Exam: Sclera White (Nini Ahumada) Pulmonary Resp Exam: Clear Bilaterally, Breath Sounds Equal, No Distress (Nini Ahumada) Cardiology CV Exam: Regular, Normal Sinus Rhythm, Good Perfusion (Nini Ahumada) Gastrointestinal/Abdomen GI Exam: Soft, Non-Tender (Nini Ahumada) Integumentary Skin Exam: Clear, Warm (Nini Ahumada) Extremeties Extremities Exam: Moderate Edema Extremeties Remarks BUE and BLE with 1-2+ pitting edema noted (Nini Ahumada) Neurologic Neuro Exam: Sedated (Nini Ahumada) Assessment/Plan Discussed Condition With: Patient Problem List: (1) Acute renal failure Plan: Renal functions improving albeit slowly. Did receive 100mL iodine contrast 05/18. Will continue to follow renal functions. Medications should eb adjusted for the patient's renal dysfunction. Avoid nephrotoxic agents such as iodinated contrast and NSAIDs. Avoid gadolinium when eGFR <30 (2) Acidosis Plan: Improving with po bicarb. Monitor (3) Anemia Plan: Endoscopy report reviewed. Apparently evidence of GI bleed with large duodenal ulcer. Serology negative (4) Diabetes mellitus Plan: Mgmt as per primary team (5) Pain of left calf Plan: Potential muscle tear versus strain as per imaging studies. No evidence of DVT (6) Cirrhosis Plan: Suggested by imaging reports. (Nini Ahumada) Plan The exam, history, and the medical decision-making described in the above note were completed with the assistance of the JOSUÉ. I reviewed and agree with the findings presented. (Vero Johnson MD) Problem Qualifiers (1) Anemia: Qualified Code: D64.9 - Anemia, unspecified type (2) Diabetes mellitus: Qualified Code: E11.8 - Type 2 diabetes mellitus with complication, without long-term current use of insulin (3) Cirrhosis: Qualified Code: K74.60 - Cirrhosis of liver without ascites, unspecified hepatic cirrhosis type Nini Ahumada May 19, 2016 12:28 Vero Johnson MD May 19, 2016 14:41
--- NOTE | 2016-05-19 14:30 | MB ---
cc: RITA DIAZ M.D. DATE OF CONSULTATION: 05/19/2016 REASON FOR CONSULTATION: Upper GI bleed. HISTORY OF PRESENT ILLNESS Mr. Gonzalez is an unfortunate 66-year-old male who was admitted on 05/14/2016 for knee pain. During his evaluation he was found to have acute renal insufficiency, possibly secondary to sepsis and dehyration. During his hospitalization, the patient has separate multiple complications including atrial fibrillation with RVR, mental status changes requiring intubation and multiple episodes of upper GI bleeding. Apparently the patient has been passing melanotic stools. The patient was scoped by Dr. Muse and was found to have multiple duodenal ulcers with active bleeding. Apparently he was scoped on the and again on the . Apparently he cauterized and injected multiple lesions. The patient then went to interventional radiology the following day for continued bleeding where they did a Gelfoam embolization of his gastric duodenal artery. The patient has received multiple units of blood products in the last 72 hours. In the last 24 hours, the patient seems to have stabilized. According to the nursing staff he is getting one unit of blood this morning for a hemoglobin of 7.4. His previous hemoglobin was also 7.4. In total, the patient has gotten six units of blood, two units of FFP and one unit of platelets in the last three days. According to the chart, there is no previous history of ulcer or upper GI bleeding. Unfortunately the patient is intubated and is unable to provide any history today. The entire history was obtained by reading the patient's EMR. PAST MEDICAL HISTORY: 1. Diabetes mellitus. 2. Atrial fibrillation. 3. Acute kidney injury/renal insufficiency. 4. Acute encephalopathy. 5. GI bleed. 6. 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 7. Reactive airway disease. PAST SURGICAL HISTORY: 1. Toe amputation. 2. Arthroscopy of the right knee. MEDICATIONS: Extensive. Please see the EMR. ALLERGIES: NO KNOWN DRUG ALLERGIES. SOCIAL HISTORY: Apparently he was a daily alcohol user and a previous smoker. FAMILY HISTORY: Noncontributory. REVIEW OF SYSTEMS: Unobtainable. PHYSICAL EXAMINATION VITAL SIGNS: Temperature is 98, pulse is 90, blood pressure is 100/70, respiratory rate he is intubated, FIO2 40%, 100% oxygen saturations. In general, this is a chronically ill-appearing male who looks older than stated age, intubated and sedated on the ventilator. HEENT: Pupils are reactive. Sclera are white. Oropharynx is clear. He has an endotracheal tube as well as an orogastric tube in place. Neck: Supple. Lungs: Clear to auscultation bilaterally. Heart: S1-S2 no murmur. Abdomen: Soft, nontender, nondistended. A few bowel sounds are noted. Extremities: Free range of motion x4. Neurologically: He is intubated and sedated but follows some commands according to nursing staff. LABORATORY DATA: White blood cell count is 16, hemoglobin 7.4, platelet count is 130. Electrolytes: within normal limits except for BUN elevated 97, creatinine 2.86, glucose 267, calcium 7.1, total protein is 4.4. IMAGING STUDIES The patient has angiogram that showed active bleeding from the gastroduodenal artery at the level of the duodenum. This was Gelfoam embolized by Dr. Mendoza on 05/18. Chest x-ray today does not demonstrate any free air. Central line is in place. IMPRESSION: Acute upper GI bleed, likely secondary to duodenal ulcer. PLAN: At this point obviously the patient represents an extraordinary operative risk. Localizing the bleeding and stopping the bleeding in a patient with this many medical comorbidities will be extremely difficult and the operative mortality would be approaching 100%. There is no family available at this time to discuss any surgical plans as needed. I would strongly recommend continued aggressive management with transfusion as needed and consideration of repeat endoscopy if the patient develops evidence of ongoing hemorrhage. At this point I will be available should the patient have life-threatening upper GI hemorrhage but it would need to be made clear to his family that the operative mortality will approach 100% if we were to take the patient to the operating room and open up his duodenum and look for bleeding. Thank you very much for allowing me to participate in the care of this challenging patient. MD AUDREY Giang/BERNICE /1:15 PM /2:11 PM
[2016-05-19 21:42] LABS: HEMATOCRIT 23.4 % (39.0-51.0); REVIEW FLAG FINAL
[2016-05-20] VITALS (18 sets, daily range): BP systolic 119–142; BP diastolic 55–95; PULSE 68–84; RESP 17–21; TEMP 96.7–98.4; O2SAT 99–100
[2016-05-20] MEDS: PANTOPRAZOLE INJ 80 MG in SODIUM CHLORIDE 0.9% INJ 100 ML IV SCH ×3 (00:18→20:11)
[2016-05-20] MEDS: PROPOFOL 1000 MG/100 ML INJ 100 ML IV SCH ×2 (02:29→11:36)
[2016-05-20 03:51] LABS: AUTOMATED NEUTROPHIL # 17.7 TH/MM3 (1.8-7.7); BASOPHIL # 0.1 TH/MM3 (0-0.2); BASOPHIL % 0.2 % (0.0-2.0); EOSINOPHIL % 4.8 % (0.0-4.0); HEMATOCRIT 22.9 % (39.0-51.0); HEMO FLAGS DIFF FINAL; LYMPH % 5.4 % (9.0-44.0); LYMPHOCYTE # 1.1 TH/MM3 (1.0-4.8); MEAN CELL VOLUME 81.7 FL (80.0-100.0); MEAN CORPUSCULAR HEMOGLOBIN 27.5 PG (27.0-34.0); MEAN CORPUSCULAR HGB CONC 33.6 % (32.0-36.0); MONO % 4.5 % (0.0-8.0); NEUT % 85.1 % (16.0-70.0); PLATELET COUNT 116 TH/MM3 (150-450); RED BLOOD COUNT 2.81 MIL/MM3 (4.50-5.90); RED CELL DISTRIBUTION WIDTH 18.8 % (11.6-17.2); WHITE BLOOD COUNT 20.8 TH/MM3 (4.0-11.0)
[2016-05-20] MEDS: CHLORHEXIDINE GLUCONATE 2 % 1 PACK (2 CLOTHS)(taper/protocol) TOPICAL SCH (04:00)
[2016-05-20] MEDS: INSULIN NovoLIN REGULAR SUPPLEMENTAL SCALE SQ SCH ×4 (04:10→20:11)
[2016-05-20] MEDS: LACTATED RINGER'S 1000 ML INJ 1,000 ML IV SCH (04:10)
[2016-05-20] MEDS: SODIUM BICARBONATE 650 MG TAB PO SCH ×3 (04:11→20:12)
[2016-05-20 04:38] LABS: BICARBONATE 25.2 MEQ/L (21.0-32.0)
[2016-05-20] MEDS: RESP: ALBUTEROL 2.5 MG/IPRATROPIUM 0.5 MG NEB (SCH) NEB ×4 (05:02→20:29)
[2016-05-20 05:06] LABS: CALCIUM-PROTEIN CORRECTED 9.1 MG/DL (8.5-10.1)
[2016-05-20] MEDS ORDERED: BUMETANIDE INJ 1 MG/4 ML VIAL IV PUSH ONE (07:45)
--- NOTE | 2016-05-20 07:58 | HHI.CCPN ---
Subjective Remarks/Hospital Course Patient is a 65-year-old male with past medical history significant for type 2 diabetes, asthma and history of alcohol dependence who presents to the emergency department on 05/14/73 for evaluation of left knee pain. His workup revealed he had a elevated ESR at >140 and CRP at 26.40. Orthopaedics Dr. Bolaños. MRI did not show any evidence of infection. She was also found to be anemic with Hemoccult positive hemoglobin 6.8 and GI was consulted. Patient' s baseline creatinine is not known but he presented with BUN of 103 creatinine 5.39. Since admission patient received a total of 2 units PRBC. He underwent EGD yesterday and there was a lot of clot in the stomach. Evaluation of stomach was impossible due to large amount of blood. Dr. Muse was able to visualize a large duodenal ulcer which was not actively bleeding at that time. According to him he plan to redo the EGD tomorrow 05/18/16. Post EGD patient was transferred to the ICU yesterday evening due to high risk of recurrent bleed , need for possible IR embolization. According to the notes patient has not been recently drinking but was taking Ibuprofen 800mg po TID at home on the pain. Today regarding critical care medicine was consulted for altered mentation and A. fib with RVR. On my evaluation patient with very lethargic hardly wakes up able to state his name but very slurred speech. An ammonia level checked was normal. Patient received last dose of Ativan around 10 AM. My discussion with Dr. Muse he is planning to do endoscopy EGD again tomorrow. Because of questionable airway protection, GCS about 8 and upper GIB and this will also facilitate bedside EGD tomorrow 05/18 Patient is sedated with Diprivan and intubated. On Protonix and bicarb drips. Afebrile. For EGD today. 05/19 Patient s/p EGD yesterday with showed multiple duodenal ulcers with visible vessel s/p EPi injection and cauterization. Late afternoon yesterday became rebled became hypotensive and started on Levophed now 7 mics. He was given 4 units PRBC for Hgb 5.6 underwent arteriogram with coil and embolization of right gastric and GDA. Given additional 1unit PRBC, 2u FFP and 1u PLT overnight. Hgb 7.4 this morning from 10.1 last night. Placed on Amio drip overnight sedated with Diprivan. 05/20 Patient remains intubated and and sedated with Diprivan on Amio drip. Renal function worse today with Cr: 3.43 from 2.86 and UO: 475 ml in 24 hrs. Hgb 7.7 this morning s/p transfusion 2units PRBC yesterday. Objective Vital Signs Date Time Temp Pulse Resp B/P Pulse Ox O2 Delivery O2 Flow Rate FiO2 05/20/16 06:00 68 05/20/16 05:02 100 40 05/20/16 04:00 98.2 17 119/55 05/17/16 08:15 Nasal Cannula 2.00 Intake and Output 05/19/16 05/19/16 05/20/16 08:00 16:00 00:00 Intake Total 1435 ml 529 ml 1600 ml Output Total 125 ml 650 ml 125 ml Balance 1310 ml -121 ml 1475 ml Result Diagram: 05/20/16 0320 05/20/16 0320 Other Results Laboratory Tests Test 05/19/16 05/19/16 05/19/16 05/20/16 08:25 10:35 21:00 03:20 Hemoglobin 7.4 GM/DL 8.1 GM/DL 7.7 GM/DL Hematocrit 22.0 % 23.4 % 22.9 % Blood Type A POSITIVE Antibody Screen NEGATIVE Crossmatch Leukocyte-Reduced Red Blood Cells Blood Bank Comment White Blood Count 20.8 TH/MM3 Red Blood Count 2.81 MIL/MM3 Mean Corpuscular Volume 81.7 FL Mean Corpuscular Hemoglobin 27.5 PG Mean Corpuscular Hemoglobin 33.6 % Concent Red Cell Distribution Width 18.8 % Platelet Count 116 TH/MM3 Mean Platelet Volume 8.1 FL Neutrophils (%) (Auto) 85.1 % Lymphocytes (%) (Auto) 5.4 % Monocytes (%) (Auto) 4.5 % Eosinophils (%) (Auto) 4.8 % Basophils (%) (Auto) 0.2 % Neutrophils # (Auto) 17.7 TH/MM3 Lymphocytes # (Auto) 1.1 TH/MM3 Monocytes # (Auto) 0.9 TH/MM3 Eosinophils # (Auto) 1.0 TH/MM3 Basophils # (Auto) 0.1 TH/MM3 CBC Comment DIFF FINAL Differential Comment Sodium Level 145 MEQ/L Potassium Level 5.0 MEQ/L Chloride Level 111 MEQ/L Carbon Dioxide Level 25.2 MEQ/L Anion Gap 9 MEQ/L Blood Urea Nitrogen 116 MG/DL Creatinine 3.43 MG/DL Estimat Glomerular Filtration 18 ML/MIN Rate Random Glucose 242 MG/DL Calcium Level 7.4 MG/DL Protein Corrected Calcium 9.1 MG/DL Total Protein 4.2 GM/DL Imaging Last Impressions Chest X-Ray 05/18/16 1802 Signed Impressions: Service Date/Time: Wednesday, May 18, 2016 18:12 - CONCLUSION: 1. Right internal jugular central line has its tip in good position in the superior vena cava. There is no pneumothorax. 2. No acute cardiopulmonary disease. Lam Tavarez MD Central Venous Line 05/18/16 0000 Signed Impressions: Service Date/Time: Wednesday, May 18, 2016 00:00 - CONCLUSION: Uncomplicated line placement as above. Wilver Mendoza MD Celiac/Hepatic Arteriogram 05/18/16 0000 Signed Impressions: Service Date/Time: Wednesday, May 18, 2016 16:21 - CONCLUSION: 1. Active bleeding identified off the GDA in the expected location of the duodenum. 2. Successful coil and Gelfoam embolization of the right gastric and GDA as detailed above. Wilver Mendoza MD Renal Ultrasound 05/15/16 0000 Signed Impressions: Service Date/Time: Sunday, May 15, 2016 10:50 - CONCLUSION: 1. Kidneys within normal limits. 2. Findings suggesting cirrhosis and portal venous hypertension with varices and recanalized paraumbilical vein. Get Franco MD Lower Extremity Ultrasound 05/15/16 0000 Signed Impressions: Service Date/Time: Sunday, May 15, 2016 08:41 - CONCLUSION: 1. No evidence of lower extremity DVT on the right or left. 2. Elongated fluid in the proximal to mid left calf. The rectal diagnosis is muscle tear versus dissecting Santo cyst. 3. 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 Get Franco MD Knee MRI 05/15/16 0000 Signed Impressions: Service Date/Time: Sunday, May 15, 2016 16:51 - CONCLUSION: 1. Prominent edema in the medial calf with prominent fluid signal between the medial gastrocnemius and soleus muscles. Differential diagnosis is ruptured Santo cyst versus muscle strain. No fluid-filled gap in muscle fibers is seen. There is also adjacent superficial soft tissue edema in this region. 2. Small horizontal tear of the body of the medial meniscus. 3. Small joint effusion. 4. Mild reactive bony edema in the patella. 5. No evidence of osteomyelitis. 6. Moderate focal medial facet patellar chondromalacia. Get Franco MD Knee X-Ray 05/14/16 0000 Signed Impressions: Service Date/Time: Saturday, May 14, 2016 15:44 - CONCLUSION: Negative for fracture or dislocation. Follow up in 7-10 days is suggested if symptoms persist. Alexy Padron MD FACR Objective Remarks GENERAL: Patient is 66 yo intubated and sedated, SKIN: Warm and dry. HEAD: Normocephalic. EYES: No scleral icterus. No injection or drainage. NECK: Supple, trachea midline. No JVD or lymphadenopathy. CARDIOVASCULAR: Regular rate and rhythm without murmurs, gallops, or rubs. RESPIRATORY: Breath sounds equal bilaterally. No accessory muscle use. GASTROINTESTINAL: Abdomen soft, non-tender, nondistended. MUSCULOSKELETAL: No cyanosis, or edema. Neuro; Sedated and intubated. Date of Insertion: May 18, 2016 Line: Central Venous Catheter Side: Right Location: Internal, Jugular A/P Assessment and Plan NEURO: Acute encephalopathy Alcohol dependence -On Diprivan infusion for sedation. Daily sedation vacation -Use when necessary Ativan supplement thiamine and multivitamin RESP: Respiratory insufficiency History of asthma -Continue with vent support keep sat >92% - DuoNeb every 6 hours and when necessary, ventilator bundle -Start SBT trials as karon CV: Atrial fibrillation with rapid ventricular response -Off Levophed drip Monitor HR and BP keep MAP>65mmHg.- d/c Amio drip -Echo 05/17: EF 45-50%, no RWMA GI/HEME: Upper GI bleed/large duodenal ulcer Severe anemia requiring transfusion Liver cirrhosis -s/p Arteriogram with coli and embolization of right gastric and GDA 05/18 -NPO, IV Protonix gtt -Surgery is following- Dr. Novak patient is high risk for surgery. -s/p repeat EGD 05/18 which showed duodenal ulcers with visible vessels s/p Epi injection and cauterization -EGD 05/16/16 shows large duodenal ulcer. Unable to visualize most of stomach and duodenum due to large amount of clot present Monitor CBC- will transfuse 1 unit PRBC and 1u PLT today. Check bleeding scan per GI- discussed with Dr. Martinez -s/p transfusion 2units PRBC 05/19 -Received 4 units PRBC since admission, s/p additional 5 units PRBC total 05/18y , 2u FFP, 1u PLT : Acute kidney failure -Monitor renal function, I/O's, avoid nephrotoxins. -Renal function is worse with Cr: 3.43 from 2.86 , UO: 475ml in 24hrs -d/c IVF and diurese with Bumex 2mg IV x1 -On PO bicarb 650mg Q8 -Nephrology Dr. Johnson is following. ID: -Continue empiric abx (Rocephin). Monitor for signs of infection ( Fever, WBC) culture if spikes fever. 05/14 BC: No growth 05/14 sputum cx: No growth 05/14, 05/17 urine cx: No growth ENDO: -SSI( low scale ) for glycemic control) PROPH: -Bilateral lower extremity SCDs. Chemical DVT prophylaxis contraindicated. Continue Protonix infusion LINES: -Utilize peripheral IVs, Right IJ CVP placed 05/18 CC time 30 min excluding procedure time Sandy Ovalle MD May 20, 2016 07:57
[2016-05-20] MEDS: CHLORHEXIDINE 0.12% (ORAL KIT) 15 ML CUP MT SCH ×2 (08:00→20:11)
[2016-05-20] MEDS: BUDESONIDE-FORMOTEROL 80/4.5 MCG INHALER INH SCH ×2 (09:00→20:11)
--- NOTE | 2016-05-20 09:26 | HHI.FPPN ---
Subjective Remarks Pt seen and examined this morning. Pt intubated and sedated. s/p 2 units transfused yesterday. (Prem Anna MD R1) Objective Vitals Vital Signs Date Time Temp Pulse Resp B/P Pulse Ox O2 Delivery O2 Flow Rate FiO2 05/20/16 08:43 99 40 05/20/16 08:00 40 05/20/16 08:00 97.8 71 18 128/58 100 05/20/16 08:00 71 05/20/16 06:00 68 05/20/16 05:02 100 40 05/20/16 04:00 68 05/20/16 04:00 40 05/20/16 04:00 98.2 68 17 119/55 100 05/20/16 02:00 69 05/20/16 00:00 40 05/20/16 00:00 68 05/20/16 00:00 40 05/20/16 00:00 96.7 68 21 119/58 100 05/19/16 23:38 100 40 05/19/16 22:00 68 05/19/16 20:00 98.4 69 22 108/54 100 05/19/16 20:00 40 05/19/16 20:00 69 05/19/16 19:41 100 40 05/19/16 18:00 68 05/19/16 16:05 100 40 05/19/16 16:00 40 05/19/16 16:00 68 05/19/16 16:00 98.1 69 15 108/53 100 05/19/16 14:00 69 05/19/16 13:32 99 40 05/19/16 12:00 40 05/19/16 12:00 69 05/19/16 12:00 98.1 92 13 98/49 100 05/19/16 10:00 71 I/O 05/19/16 05/19/16 05/19/16 05/20/16 05/20/16 05/20/16 07:00 15:00 23:00 07:00 15:00 23:00 Intake Total 1435 ml 529 ml 1600 ml 930 ml Output Total 125 ml 650 ml 125 ml 100 ml Balance 1310 ml -121 ml 1475 ml 830 ml Intake Oral 0 ml IV Total 935 ml 529 ml 950 ml 930 ml Packed Cells 500 ml 650 ml Output Urine Total 125 ml 250 ml 125 ml 100 ml Stool Total 400 ml # Bowel Movements 1 1 2 (Prem Anna MD R1) Result Diagram: 05/20/16 0320 05/20/16 032 Objective Remarks GEN: Well-developed, well-nourished patient. No acute distress. Lying in bed CV: Regular rate and rhythm without obvious murmurs LUNGS: Clear to auscultation bilaterally. EXT: Left calf 1+ edema. NEURO/PSYCH: Intubated, sedated (Prem Anna MD R1) Date of Insertion: May 18, 2016 Line: Central Venous Catheter Side: Right Location: Internal, Jugular (Prem Anna MD R1) A/P Assessment and Plan 65 y/o male with history of DM and osteomyelitis presents with left leg pain as well as GI bleed, diabetes mellitus. Admitted for anemia and JOSE and left knee pain. dw: Dr. Farley Discharge Planning unclear, pending critical care course (Prem Anna MD R1) Attending Attestation Patient seen and examined. Case reviewed and discussed with the resident team. Agree with plan of care as discussed with me and documented in the resident note. appreciate help Pole Setter (Chapis Farley MD) Problem List: (1) Acute encephalopathy Status: Acute Plan: Unclear etiology. DDx: delirium, alcohol withdrawal, metabolic encephalopathy, uremia Ammonia level normal -Critical care consulted: appreciate recs -Pt intubated 05/17 due to lethargy and airway protection -Sedated with Diprivan -Cpap trials today Abx: Rocephin 1 g IV qd (05/19 - ) (2) JOSE (acute kidney injury) Status: Acute Plan: Ddx includes pre-renal (dehydration/hypovolemia) vs renal (ATN). Concern for underlying CKD. Associated with decreased eating and drinking prior to presentation. Baseline Cr is 0.83 from 2 years ago, admission Cr is 5.38. Pre- sedation confusion likely due to uremia. -Renal function worsening today -Strict I/Os -D/c IVF, diurese with Bumex Nephrology consulted: appreciate recommendations * Serologies pending * PO biocarb supplement * Avoid nephrotoxic agents Imaging: * Renal US: Kidneys unremarkable. Finding suggesting cirrhosis and portal venous HTN with varices and recanalized paraumbilical vein. (3) Anemia Status: Acute Plan: No history of ulcers or blood thinners. Has some recent NSAID use and history of alcohol abuse. DDx: gastric/duodenal ulcer, esophageal varices, diverticulosis, colorectal cancer, polyps, IBD, hemorrhoids.H/H on admission was 6.8/20.6. Admission BUN/Cr ratio 19, suggestive of upper GI bleed. S/p transfusion on 05/19 due to hemoglobin remaining low at 7.4 Echo: EF 45-50%, mild MR, mild TR -Tachycardia and SOB likely due to anemia. CXR unremarkable except for cardiomegaly. -Hemoccult in ED positive. -H&H q6H; Transfuse as needed GI consulted: appreciate recommendations * s/p EGD 05/16 - Large clots in fundus, non-bleeding ulcer in duodenal bulb. Normal esophagus * Repeat EGD 05/18 - duodenal ulcers with visible vessels, cauterized -s/p arteriogram with coli and embolization of right gastric and GDA (05/18 ) * Gen surgery consulted-appreciate recs: Do not recommend surgery, operative mortality approaching 100% * Liver serologies negative Medications: * Protonix drip * Hold all anticoagulation (Coumadin, Plavix, Aspirin) (4) Atrial fibrillation Status: Acute Plan: Pt developed Afib with RVR. No history of Afib per patient. Given lopressor, cardizem. S/p cardizem infusion 05/17. See echo results above Holding chemo ppx due to GI bleed -Amiodarone drip -Continue to monitor tele, heart rate -Fluids as below (5) Diabetes mellitus Status: Acute Plan: Hold home metformin and glipizide. A1c of 6.1, could be falsely low due to blood loss anemia. Bedside glucose remains elevated in 300-400s -Low-dose sliding scale -Hold Levemir 10units BID, patient NPO (6) Cirrhosis Status: Acute Plan: Significant alcohol history. Denies alcohol withdrawals. No seizures in past. Cirrhosis seen on Renal US with evident of portal venous HTN with varices. Hepatitis panel negative. -Ammonia WNL -Rally pack -CIWA protocol See more details plan under anemia (7) Asthma Status: Chronic Plan: -Continue home inhaler, Advair -Albuterol PRN (8) Knee pain, acute Status: Acute Plan: Likely due to muscle tear and/or Santo cyst rupture contributing to pain and associated edema. -Ortho consulted: Appreciate recommendations. Does not look like septic joint because there is no significant effusion. -S/p antibiotics (Vanc 05/14-; Linezolid 05/15-05/16; Cefepime 05/14-05/16) -Pain control with Tylenol PO/IV to not exceed 3000mg -Would benefit for PT once acute pain and mental status improves. Imaging: * MRI: Prominent edema in the medial calf with prominent fluid signal between the medial gastrocnemius and soleus muscles. DDX is ruptured Santo cyst versus muscle strain. Small joint effusion. No evidence of osteomyelitis. * LE ultrasound: No evidence of DVT. Elongated fluid in the proximal to mid left calf. DDX is muscle tear versus dissecting Santo cyst. 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 * Left knee XR: Negative for fracture or dislocation (9) FEN Status: Acute Plan: Fluids: Holding, diuresing Electrolytes: unremarkable; continue to monitor Nutrition: NPO DVT ppx: SCDs/TEDs GI ppx: Protonix gtt (Prem Anna MD R1) Problem Qualifiers (1) Anemia: Qualified Code: D64.9 - Anemia, unspecified type (2) Atrial fibrillation: Qualified Code: I48.0 - Paroxysmal atrial fibrillation (3) Diabetes mellitus: Qualified Code: E11.8 - Type 2 diabetes mellitus with complication, without long-term current use of insulin (4) Cirrhosis: Qualified Code: K74.60 - Cirrhosis of liver without ascites, unspecified hepatic cirrhosis type (5) Asthma: Qualified Code: J45.909 - Uncomplicated asthma, unspecified asthma severity (6) Knee pain, acute: Qualified Code: M25.562 - Acute pain of left knee Prem Anna MD R1 May 20, 2016 09:26 Chapis Farley MD May 20, 2016 14:39
[2016-05-20] MEDS: cefTRIAXone INJ 1,000 MG in SODIUM CHLORIDE 0.9% INJ 100 ML IV SCH (09:35)
[2016-05-20] MEDS: THIAMINE HCL 100 MG TAB PO SCH (09:36)
[2016-05-20] MEDS: MULTIVITAMINS/MINERALS THERAPEUTIC TAB PO SCH (09:36)
[2016-05-20] MEDS: FOLIC ACID 1 MG TAB PO SCH (09:36)
[2016-05-20] MEDS: SODIUM CHLORIDE 0.9% FLUSH 10 ML FLUSH IV FLUSH SCH (09:37)
[2016-05-20] MEDS: SODIUM CHLORIDE 0.9% FLUSH 10 ML FLUSH IVF SCH (09:37)
--- NOTE | 2016-05-20 11:16 | HHI.FPPN ---
Addendum to progress note ADDENDUM Reason for addendum: Additonal documentation Additional information Transfer of Care/Off-Service Note Mr. Gonzalez is a 65-year-old male with history of DM, asthma, osteomyelitis who initially presented with left knee pain. He was recently seen in [place] ED a couple of days before and diagnosed with possible septic arthritis and discharged with antibiotics. Since then he has not improved and has had worsening pain and increased oral intake. Regarding his knee pain, ESR was elevated at 140, CRP was 26.4, and patient had leukocytosis. There was not enough of effusion for arthrocentesis. X-ray was negative. Orthopedics was consulted, and an MRI was performed, which showed no osteomyelitis and possible ruptured Santo cyst. Patient's initial empiric antibiotics of Nasalide and cefepime were DC'd. Most notably, patient was found to have JOSE and anemia on admission. His admission creatinine was 5.38, with a baseline of 0.3 from 2 years ago. Fluids were started and nephrology was consulted to ordered serologies and start patient on bicarbonate. Renal ultrasound was unremarkable, but did show signs of cirrhosis. Renal function slowly improved but recently worsened most likely due to contrast received. Nephrology continues to monitor. Regarding the patient's anemia, patient was found to have hemoglobin of 6.8 on admission. Hemoccult positive in ED. Patient was transferred 2 units of pRBC , yet patient's hemoglobin remained low and 2 more units were ordered. GI was called to take patient back for EGD and ordered liver workup. EGD on 05/16 demonstrated large clots in the fundus of the stomach and a large clot in the duodenum. Patient was transferred to the ICU at this point. They started the patient on Protonix drip and recommended repeat EGD in 2 days. The next day, patient developed worsening mental status and became lethargic. At this time, critical care was consulted. Patient was intubated, due to delirium and need for EGD the next day. Patient was also found to have atrial fibrillation with RVR and started on Cardizem drip. EGD was performed again on 05/18 and multiple ulcers were found in the duodenal bulb and second part of the duodenum, which were cauterized. The afternoon, patient started to bleed again and became hypotensive. He was started on levo fed and underwent arteriogram with coil embolization of the right gastric and GDA. Patient was transfused with 1 unit PRBC, 2 units FFP, and 1 unit PLT overnight and placed on amiodarone drip. Rocephin was also started for empiric coverage. GI recommended continuing monitoring of H&H, Protonix drip and consult general surgery. General surgery did not recommend any procedure and stated the operative mortality would be approaching 100%. He recommends continued aggressive management with transfusion as needed. Patient did receive another 2 units PRBC last night and renal function acutely worse this morning. Fluids were DC'd and tinea bicarbonate. Rocephin as an empiric antibiotic was continued, no growth to date on any cultures. Amiodarone drip discontinued. Patient remains intubated and sedated, but will try SBT trials today. Prem Anna MD R1 May 20, 2016 11:15
--- NOTE | 2016-05-20 11:44 | HHI.PR ---
Subjective Subjective Notes on vent, off levo, currently getting 1 U prbcs Objective Vitals/I&O Vital Signs Date Time Temp Pulse Resp B/P Pulse Ox O2 Delivery O2 Flow Rate FiO2 05/20/16 10:17 40 05/20/16 10:00 71 05/20/16 08:43 99 05/20/16 08:00 97.8 18 128/58 05/17/16 08:15 Nasal Cannula 2.00 Labs Laboratory Tests Test 05/19/16 05/20/16 05/20/16 21:00 03:20 07:44 Hemoglobin 8.1 7.7 Hematocrit 23.4 22.9 White Blood Count 20.8 Red Blood Count 2.81 Mean Corpuscular Volume 81.7 Mean Corpuscular Hemoglobin 27.5 Mean Corpuscular Hemoglobin 33.6 Concent Red Cell Distribution Width 18.8 Platelet Count 116 Mean Platelet Volume 8.1 Neutrophils (%) (Auto) 85.1 Lymphocytes (%) (Auto) 5.4 Monocytes (%) (Auto) 4.5 Eosinophils (%) (Auto) 4.8 Basophils (%) (Auto) 0.2 Neutrophils # (Auto) 17.7 Lymphocytes # (Auto) 1.1 Monocytes # (Auto) 0.9 Eosinophils # (Auto) 1.0 Basophils # (Auto) 0.1 CBC Comment DIFF FINAL Differential Comment Sodium Level 145 Potassium Level 5.0 Chloride Level 111 Carbon Dioxide Level 25.2 Anion Gap 9 Blood Urea Nitrogen 116 Creatinine 3.43 Estimat Glomerular Filtration 18 Rate Random Glucose 242 Calcium Level 7.4 Protein Corrected Calcium 9.1 Total Protein 4.2 Blood Type A POSITIVE Crossmatch Leukocyte-Reduced Red Blood Cells Blood Bank Comment Date/Time Procedure Status Source Growth 05/17/16 21:30 Urine Culture - Final Complete Urine Catheterized Urine NO GROWTH IN 48 HOURS. 05/17/16 14:45 Gram Stain - Final Complete Sputum Endotracheal 05/17/16 14:45 Sputum Culture - Final Complete Sputum Endotracheal NO GROWTH IN 48 HOURS. Abdomen: Other (soft NT/ND) Extremities: Other (edema) A/P Assessment and Plan GI bleed, s/p ir angio, egd dark bms, blood loss anemia PLAN Continue transfusion non operative mgnt with check abdominal exams high risk surgical candidate Casper Marie MD May 20, 2016 11:43
--- NOTE | 2016-05-20 15:20 | HHI.PR ---
Subjective Remarks I came to see the patient however informed by the RN that the patient will be downstairs for a bleeding scan for several hours. Noted creatinine level is deteriorating. Most likely related to recurrent GI bleed with an episode of hypotension and also the patient did receive intravenous contrast for arterial embolization for management of his GI bleed. Repeat renal panel in a.m. Objective Vital Signs Date Time Temp Pulse Resp B/P Pulse Ox O2 Delivery O2 Flow Rate FiO2 05/20/16 14:00 78 05/20/16 13:25 99 40 05/20/16 12:00 40 05/20/16 12:00 75 05/20/16 12:00 98.4 75 21 132/95 100 05/20/16 10:17 40 05/20/16 10:00 71 05/20/16 08:43 99 40 05/20/16 08:00 40 05/20/16 08:00 97.8 71 18 128/58 100 05/20/16 08:00 71 05/20/16 06:00 68 05/20/16 05:02 100 40 05/20/16 04:00 68 05/20/16 04:00 40 05/20/16 04:00 98.2 68 17 119/55 100 05/20/16 02:00 69 05/20/16 00:00 40 05/20/16 00:00 68 05/20/16 00:00 40 05/20/16 00:00 96.7 68 21 119/58 100 05/19/16 23:38 100 40 05/19/16 22:00 68 05/19/16 20:00 98.4 69 22 108/54 100 05/19/16 20:00 40 05/19/16 20:00 69 05/19/16 19:41 100 40 05/19/16 18:00 68 05/19/16 16:05 100 40 05/19/16 16:00 40 05/19/16 16:00 68 05/19/16 16:00 98.1 69 15 108/53 100 I/O 05/19/16 05/19/16 05/19/16 05/20/16 05/20/16 05/20/16 07:00 15:00 23:00 07:00 15:00 23:00 Intake Total 1435 ml 529 ml 1600 ml 930 ml Output Total 125 ml 650 ml 125 ml 100 ml Balance 1310 ml -121 ml 1475 ml 830 ml Intake Oral 0 ml IV Total 935 ml 529 ml 950 ml 930 ml Packed Cells 500 ml 650 ml Output Urine Total 125 ml 250 ml 125 ml 100 ml Stool Total 400 ml # Bowel Movements 1 1 2 Result Diagram: 05/20/16 0320 05/20/16 0320 Vero Johnson MD May 20, 2016 15:20
--- NOTE | 2016-05-20 15:31 | HHI.GIFU ---
GI Follow-up Note Consult Follow-up Subjective: Patient laying in bed comfortably, no new complaints except continued melena Objective: PHYSICAL EXAMINATION: Vitals signs stable No fever HEENT: Pupils round and reactive to light; normocephalic; atraumatic; no jaundice. Throat is clear. NECK: Neck is supple, no JVD, no lymphadenopathy. CHEST: Chest is clear to auscultation and percussion. CARDIAC: Regular rate and rhythm with no murmur gallop or rubs. ABDOMEN: Soft, nondistended, nontender; no hepatosplenomegaly; bowel sounds are present in all four quadrants. EXTREMITIES: No clubbing, cyanosis, or edema. SKIN: Normal; no rash; no jaundice. ABA THERAPIST: No focal deficits; alert and oriented times three. Available Data (labs, X- Rays, Procedues) : Last Impressions Chest X-Ray 05/18/161801 Signed Impressions: Service Date/Time: Wednesday, May 18, 2016 18:12 - CONCLUSION: 1. Right internal jugular central line has its tip in good position in the superior vena cava. There is no pneumothorax. 2. No acute cardiopulmonary disease. Lam Tavarez MD Central Venous Line 05/18/16 0000 Signed Impressions: Service Date/Time: Wednesday, May 18, 2016 00:00 - CONCLUSION: Uncomplicated line placement as above. Wilver Mendoza MD Celiac/Hepatic Arteriogram 05/18/16 0000 Signed Impressions: Service Date/Time: Wednesday, May 18, 2016 16:21 - CONCLUSION: 1. Active bleeding identified off the GDA in the expected location of the duodenum. 2. Successful coil and Gelfoam embolization of the right gastric and GDA as detailed above. Wilver Mendoza MD Renal Ultrasound 05/15/16 0000 Signed Impressions: Service Date/Time: Sunday, May 15, 2016 10:50 - CONCLUSION: 1. Kidneys within normal limits. 2. Findings suggesting cirrhosis and portal venous hypertension with varices and recanalized paraumbilical vein. Get Franco MD Lower Extremity Ultrasound 05/15/16 0000 Signed Impressions: Service Date/Time: Sunday, May 15, 2016 08:41 - CONCLUSION: 1. No evidence of lower extremity DVT on the right or left. 2. Elongated fluid in the proximal to mid left calf. The rectal diagnosis is muscle tear versus dissecting Santo cyst. 3. 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 Get Franco MD Knee MRI 05/15/16 0000 Signed Impressions: Service Date/Time: Sunday, May 15, 2016 16:51 - CONCLUSION: 1. Prominent edema in the medial calf with prominent fluid signal between the medial gastrocnemius and soleus muscles. Differential diagnosis is ruptured Santo cyst versus muscle strain. No fluid-filled gap in muscle fibers is seen. There is also adjacent superficial soft tissue edema in this region. 2. Small horizontal tear of the body of the medial meniscus. 3. Small joint effusion. 4. Mild reactive bony edema in the patella. 5. No evidence of osteomyelitis. 6. Moderate focal medial facet patellar chondromalacia. Get Franco MD Knee X-Ray 05/14/16 0000 Signed Impressions: Service Date/Time: Saturday, May 14, 2016 15:44 - CONCLUSION: Negative for fracture or dislocation. Follow up in 7-10 days is suggested if symptoms persist. Alexy Padron MD FACR Laboratory Tests Test 05/18/16 05/18/16 05/18/16 05/18/16 15:46 16:09 19:34 20:00 Hemoglobin 5.6 GM/DL 10.1 GM/DL Hematocrit 17.1 % 28.8 % Blood Type A POSITIVE Crossmatch Leukocyte-Reduced Red Blood Cells Blood Bank Comment White Blood Count 25.0 TH/MM3 Red Blood Count 3.36 MIL/MM3 Mean Corpuscular Volume 85.8 FL Mean Corpuscular Hemoglobin 30.2 PG Mean Corpuscular Hemoglobin 35.3 % Concent Red Cell Distribution Width 16.2 % Platelet Count 144 TH/MM3 Mean Platelet Volume 7.8 FL Neutrophils (%) (Auto) 87.5 % Lymphocytes (%) (Auto) 4.1 % Monocytes (%) (Auto) 5.8 % Eosinophils (%) (Auto) 2.4 % Basophils (%) (Auto) 0.2 % Neutrophils # (Auto) 21.9 TH/MM3 Lymphocytes # (Auto) 1.0 TH/MM3 Monocytes # (Auto) 1.4 TH/MM3 Eosinophils # (Auto) 0.6 TH/MM3 Basophils # (Auto) 0.0 TH/MM3 CBC Comment AUTO DIFF Differential Total Cells 100 Counted Neutrophils % (Manual) 79 % Band Neutrophils % 10 % Lymphocytes % 4 % Monocytes % 3 % Eosinophils % 2 % Basophils % 2 % Neutrophils # (Manual) 22.3 TH/MM3 Differential Comment FINAL DIFF MANUAL Toxic Granulation 1+ Platelet Estimate LOW Platelet Morphology Comment NORMAL Stomatocytes 1+ [place] Cells 1+ Prothrombin Time 15.5 SEC Prothromb Time International 1.4 RATIO Ratio Activated Partial 38.3 SEC Thromboplast Time Fibrinogen 246 mg/dL Test 05/19/16 05/19/16 05/19/16 05/19/16 03:00 04:33 04:35 08:25 White Blood Count 16.3 TH/MM3 Red Blood Count 2.44 MIL/MM3 Hemoglobin 7.4 GM/DL 7.4 GM/DL Hematocrit 20.8 % 22.0 % Mean Corpuscular Volume 85.3 FL Mean Corpuscular Hemoglobin 30.4 PG Mean Corpuscular Hemoglobin 35.7 % Concent Red Cell Distribution Width 16.2 % Platelet Count 130 TH/MM3 Mean Platelet Volume 7.7 FL Neutrophils (%) (Auto) 82.0 % Lymphocytes (%) (Auto) 5.7 % Monocytes (%) (Auto) 4.7 % Eosinophils (%) (Auto) 6.5 % Basophils (%) (Auto) 1.1 % Neutrophils # (Auto) 13.4 TH/MM3 Lymphocytes # (Auto) 0.9 TH/MM3 Monocytes # (Auto) 0.8 TH/MM3 Eosinophils # (Auto) 1.1 TH/MM3 Basophils # (Auto) 0.2 TH/MM3 CBC Comment AUTO DIFF Differential Comment AUTO DIFF CONFIRMED Stomatocytes 1+ [place] PRESENT Sodium Level 145 MEQ/L Potassium Level 4.4 MEQ/L Chloride Level 111 MEQ/L Carbon Dioxide Level 24.9 MEQ/L Anion Gap 9 MEQ/L Blood Urea Nitrogen 97 MG/DL Creatinine 2.86 MG/DL Estimat Glomerular Filtration 22 ML/MIN Rate Random Glucose 267 MG/DL Calcium Level 7.1 MG/DL Protein Corrected Calcium 8.6 MG/DL Total Protein 4.4 GM/DL Blood Type A POSITIVE Crossmatch Leukocyte-Reduced Red Blood Cells Blood Bank Comment Prothrombin Time 14.1 SEC Prothromb Time International 1.3 RATIO Ratio Activated Partial 32.9 SEC Thromboplast Time Test 05/19/16 05/19/16 05/20/16 05/20/16 10:35 21:00 03:20 07:44 Blood Type A POSITIVE A POSITIVE Antibody Screen NEGATIVE Crossmatch Leukocyte-Reduced Leukocyte-Reduced Red Blood Red Blood Cells Cells Blood Bank Comment Hemoglobin 8.1 GM/DL 7.7 GM/DL Hematocrit 23.4 % 22.9 % White Blood Count 20.8 TH/MM3 Red Blood Count 2.81 MIL/MM3 Mean Corpuscular Volume 81.7 FL Mean Corpuscular Hemoglobin 27.5 PG Mean Corpuscular Hemoglobin 33.6 % Concent Red Cell Distribution Width 18.8 % Platelet Count 116 TH/MM3 Mean Platelet Volume 8.1 FL Neutrophils (%) (Auto) 85.1 % Lymphocytes (%) (Auto) 5.4 % Monocytes (%) (Auto) 4.5 % Eosinophils (%) (Auto) 4.8 % Basophils (%) (Auto) 0.2 % Neutrophils # (Auto) 17.7 TH/MM3 Lymphocytes # (Auto) 1.1 TH/MM3 Monocytes # (Auto) 0.9 TH/MM3 Eosinophils # (Auto) 1.0 TH/MM3 Basophils # (Auto) 0.1 TH/MM3 CBC Comment DIFF FINAL Differential Comment Sodium Level 145 MEQ/L Potassium Level 5.0 MEQ/L Chloride Level 111 MEQ/L Carbon Dioxide Level 25.2 MEQ/L Anion Gap 9 MEQ/L Blood Urea Nitrogen 116 MG/DL Creatinine 3.43 MG/DL Estimat Glomerular Filtration 18 ML/MIN Rate Random Glucose 242 MG/DL Calcium Level 7.4 MG/DL Protein Corrected Calcium 9.1 MG/DL Total Protein 4.2 GM/DL Test 05/20/16 12:06 Blood Bank Comment Allergies Coded Allergies Type Severity Reaction Last Updated Verified No Known Allergies 05/14/16 No Active Scripts Medications Dose Route/Sig Days Date Category Dose Instructions Ibuprofen 800 Mg Tab 800 Mg PO TID 05/11/16 Rx Cleocin (Clindamycin HCl) 150 Mg Cap 450 Mg PO Q6H 7 05/11/16 Rx Advair Diskus Inh (Fluticasone-Salmeterol Inh) 100-50 Mcg/Blist Aer 1 Puff INH BID 05/11/16 Reported Rinse mouth after use. Ventolin Hfa 18 GM Inh (Albuterol Sulfate) 90 Mcg/Act Aer 2 Puff INH Q4-6H PRN 05/11/16 Reported Metformin (Metformin HCl) 500 Mg Tab 500 Mg PO DIRECTED 05/11/16 Reported With meals Magnesium Oxide 400 Mg Tab 400 Mg PO BID 05/11/16 Reported Glipizide 5 Mg Tab 5 Mg PO DAILY 05/11/16 Reported Take 30 minutes before a meal Aspirin Low Dose (Aspirin) 81 Mg Chew 81 Mg CHEW DAILY 05/11/16 Reported ASSESSMENT/PLAN: seen and examined, still with melena. Transfuse as needed. Keep Hb > 8.0. Protonix drip, Not a surgical candidate. Transfuse Platelets , possible repeat egd but doubt would be of too much benefit. Discussed with Drs. Marie and Jeferson. It was a pleasure seeing Kal Gonzalez Thank you for this consult. Entered by: Rosaura Maddox MD May 20, 2016 15:31
--- NOTE | 2016-05-20 17:08 | RADRPT ---
EXAM DATE/TIME: 05/20/2016 14:25 [facility] COMPARISON: No previous studies available for comparison. INDICATIONS : Hemmorrhage. Anemia. Duodenal ulcers. DOSE: 21.6 mCi Tc99m Ultratag labeled red blood cells IV IMAGING: MEDICAL HISTORY : Diabetes mellitus type 2. SURGICAL HISTORY : EGD. ENCOUNTER: Initial ACUITY: 3 days PAIN SCALE: 0/10 LOCATION: Abdomen. TECHNIQUE: Following the modified in vitro labeling of autologous red cells, dynamic continuous images were acqu ired for the specified interval. FINDINGS: BIODISTRIBUTION: There is a very good labeling of red cells without significant uptake in the gastric wall. There is good delineation of the blood pool of the spleen and abdominal vessels. BLEEDING: Examination his first positive in the upper abdomen just to the right of midline, probably with the p roximal duodenum. Subsequently there is activity progressing through small bowel. CONCLUSION: 1. Positive for gastrointestinal bleed in small bowel, probably at the proximal duodenum. Randy Byrne MD on May 20, 2016 at 17:04 Board Certified Radiologist. This report was verified electronically.
[2016-05-20 17:50] LABS: AUTOMATED NEUTROPHIL # 15.3 TH/MM3 (1.8-7.7); BASOPHIL # 0.1 TH/MM3 (0-0.2); BASOPHIL % 0.3 % (0.0-2.0); EOSINOPHIL # 0.7 TH/MM3 (0-0.4); EOSINOPHIL % 4.1 % (0.0-4.0); HEMATOCRIT 22.3 % (39.0-51.0); LYMPH % 5.2 % (9.0-44.0); LYMPHOCYTE # 0.9 TH/MM3 (1.0-4.8); MEAN CELL VOLUME 83.4 FL (80.0-100.0); MEAN CORPUSCULAR HEMOGLOBIN 27.3 PG (27.0-34.0); MEAN CORPUSCULAR HGB CONC 32.7 % (32.0-36.0); MONO % 4.7 % (0.0-8.0); NEUT % 85.7 % (16.0-70.0); PLATELET COUNT 129 TH/MM3 (150-450); RED BLOOD COUNT 2.67 MIL/MM3 (4.50-5.90); RED CELL DISTRIBUTION WIDTH 19.4 % (11.6-17.2); WHITE BLOOD COUNT 17.9 TH/MM3 (4.0-11.0)
[2016-05-20 17:51] LABS: HEMO FLAGS AUTO DIFF
[2016-05-20 17:59] LABS: BANDS 7 % (0-6); EOSINOPHILS 5 % (0-4); NEUTROPHIL # MANUAL DIFF 15.4 TH/MM3 (1.8-7.7); OVALOCYTES 1+ (NORMAL); PLATELET ESTIMATE SMEAR LOW (NORMAL); PLATELET MORPHOLOGY NORMAL (NORMAL); POLYS (SEG NEUTROPHILS) 79 % (16-70); SCAN/DIFF FINAL DIFF MANUAL; WBC DIFF SAMPLE 100
[2016-05-20] MEDS ORDERED: DESMOPRESSIN INJ 20 MCG in SODIUM CHLORIDE 0.9% INJ 50 ML IV ONE (20:00)
[2016-05-21] VITALS (17 sets, daily range): BP systolic 115–145; BP diastolic 53–62; PULSE 103–130; RESP 21–29; TEMP 97.1–98.9; O2SAT 95–100
[2016-05-21] MEDS ORDERED: AMIODARONE 150 MG/D5W 97 ML BOLUS 10 MINUTES IV ONE ×2 (00:45)
[2016-05-21] MEDS: AMIODARONE INJ 450 MG in D5W (EXCEL BAG) 241 ML IV SCH (01:02)
[2016-05-21 01:42] LABS: HEMATOCRIT 26.9 % (39.0-51.0); REVIEW FLAG FINAL
[2016-05-21] MEDS: CHLORHEXIDINE GLUCONATE 2 % 1 PACK (2 CLOTHS)(taper/protocol) TOPICAL SCH (02:14)
[2016-05-21] MEDS: INSULIN NovoLIN REGULAR SUPPLEMENTAL SCALE SQ SCH ×4 (02:45→20:45)
[2016-05-21] MEDS: PROPOFOL 1000 MG/100 ML INJ 100 ML IV SCH ×3 (03:18→18:46)
[2016-05-21] MEDS: SODIUM CHLORIDE 0.9% FLUSH 10 ML FLUSH IV FLUSH SCH ×3 (03:28→22:46)
[2016-05-21] MEDS: RESP: ALBUTEROL 2.5 MG/IPRATROPIUM 0.5 MG NEB (SCH) NEB ×4 (03:54→19:47)
[2016-05-21 04:28] LABS: AUTOMATED NEUTROPHIL # 15.6 TH/MM3 (1.8-7.7); BASOPHIL % 0.2 % (0.0-2.0); EOSINOPHIL # 0.7 TH/MM3 (0-0.4); EOSINOPHIL % 3.6 % (0.0-4.0); HEMATOCRIT 26.8 % (39.0-51.0); LYMPH % 5.5 % (9.0-44.0); MEAN CELL VOLUME 81.9 FL (80.0-100.0); MEAN CORPUSCULAR HEMOGLOBIN 28.3 PG (27.0-34.0); MEAN CORPUSCULAR HGB CONC 34.5 % (32.0-36.0); NEUT % 85.7 % (16.0-70.0); PLATELET COUNT 144 TH/MM3 (150-450); RED BLOOD COUNT 3.27 MIL/MM3 (4.50-5.90); RED CELL DISTRIBUTION WIDTH 17.8 % (11.6-17.2); WHITE BLOOD COUNT 18.2 TH/MM3 (4.0-11.0)
[2016-05-21 04:36] LABS: HEMO FLAGS AUTO DIFF
[2016-05-21 04:53] LABS: BICARBONATE 22.6 MEQ/L (21.0-32.0); POTASSIUM 4.7 MEQ/L (3.5-5.1)
[2016-05-21] MEDS: PANTOPRAZOLE INJ 80 MG in SODIUM CHLORIDE 0.9% INJ 100 ML IV SCH ×2 (06:17→15:09)
[2016-05-21] MEDS: SODIUM BICARBONATE 650 MG TAB PO SCH ×3 (06:18→22:45)
[2016-05-21 06:55] LABS: BANDS 3 % (0-6); EOSINOPHILS 3 % (0-4); NEUTROPHIL # MANUAL DIFF 15.5 TH/MM3 (1.8-7.7); POLYS (SEG NEUTROPHILS) 82 % (16-70); WBC DIFF SAMPLE 100
[2016-05-21 06:56] LABS: PLATELET ESTIMATE SMEAR LOW (NORMAL); PLATELET MORPHOLOGY NORMAL (NORMAL); SCAN/DIFF FINAL DIFF MANUAL
--- NOTE | 2016-05-21 07:49 | HHI.CCPN ---
Subjective Remarks/Hospital Course Patient is a 65-year-old male with past medical history significant for type 2 diabetes, asthma and history of alcohol dependence who presents to the emergency department on 05/14/73 for evaluation of left knee pain. His workup revealed he had a elevated ESR at >140 and CRP at 26.40. Orthopaedics Dr. Bolaños. MRI did not show any evidence of infection. She was also found to be anemic with Hemoccult positive hemoglobin 6.8 and GI was consulted. Patient' s baseline creatinine is not known but he presented with BUN of 103 creatinine 5.39. Since admission patient received a total of 2 units PRBC. He underwent EGD yesterday and there was a lot of clot in the stomach. Evaluation of stomach was impossible due to large amount of blood. Dr. Muse was able to visualize a large duodenal ulcer which was not actively bleeding at that time. According to him he plan to redo the EGD tomorrow 05/18/16. Post EGD patient was transferred to the ICU yesterday evening due to high risk of recurrent bleed , need for possible IR embolization. According to the notes patient has not been recently drinking but was taking Ibuprofen 800mg po TID at home on the pain. Today regarding critical care medicine was consulted for altered mentation and A. fib with RVR. On my evaluation patient with very lethargic hardly wakes up able to state his name but very slurred speech. An ammonia level checked was normal. Patient received last dose of Ativan around 10 AM. My discussion with Dr. Muse he is planning to do endoscopy EGD again tomorrow. Because of questionable airway protection, GCS about 8 and upper GIB and this will also facilitate bedside EGD tomorrow 05/18 Patient is sedated with Diprivan and intubated. On Protonix and bicarb drips. Afebrile. For EGD today. 05/19 Patient s/p EGD yesterday with showed multiple duodenal ulcers with visible vessel s/p EPi injection and cauterization. Late afternoon yesterday became rebled became hypotensive and started on Levophed now 7 mics. He was given 4 units PRBC for Hgb 5.6 underwent arteriogram with coil and embolization of right gastric and GDA. Given additional 1unit PRBC, 2u FFP and 1u PLT overnight. Hgb 7.4 this morning from 10.1 last night. Placed on Amio drip overnight sedated with Diprivan. 05/20 Patient remains intubated and and sedated with Diprivan on Amio drip. Renal function worse today with Cr: 3.43 from 2.86 and UO: 475 ml in 24 hrs. Hgb 7.7 this morning s/p transfusion 2units PRBC yesterday. 05/21 Patient remains sedated with Diprivan and intubated. Tolerated CPAP for all day yesterday. Bleeding scan was positive for GI bleed in small bowel ( proximal Duodenum) Received total 3 units PRBC since yesterday and 1unit PLT. Hgb 9.2 this morning. Renal function is worse with Cr: 3.81 from 3.43 with UO:700ml in 24hrs. Patient went into Afib with RVR and placed on Amio drip. Objective Vital Signs Date Time Temp Pulse Resp B/P Pulse Ox O2 Delivery O2 Flow Rate FiO2 05/21/16 06:00 122 05/21/16 06:00 05/21/16 04:00 98.3 21 98 05/21/16 04:00 40 05/17/16 08:15 Nasal Cannula 2.00 Intake and Output 05/20/16 05/20/16 05/21/16 08:00 16:00 00:00 Intake Total 930 ml 1106 ml 739 ml Output Total 100 ml 300 ml 180 ml Balance 830 ml 806 ml 559 ml Result Diagram: 05/21/16 0350 05/21/16 0350 Other Results Laboratory Tests Test 05/20/16 05/20/16 05/20/16 05/20/16 07:44 12:06 16:40 19:08 Blood Type A POSITIVE A POSITIVE Crossmatch Leukocyte-Reduced Leukocyte-Reduced Red Blood Red Blood Cells Cells Blood Bank Comment White Blood Count 17.9 TH/MM3 Red Blood Count 2.67 MIL/MM3 Hemoglobin 7.3 GM/DL Hematocrit 22.3 % Mean Corpuscular Volume 83.4 FL Mean Corpuscular Hemoglobin 27.3 PG Mean Corpuscular Hemoglobin 32.7 % Concent Red Cell Distribution Width 19.4 % Platelet Count 129 TH/MM3 Mean Platelet Volume 7.9 FL Neutrophils (%) (Auto) 85.7 % Lymphocytes (%) (Auto) 5.2 % Monocytes (%) (Auto) 4.7 % Eosinophils (%) (Auto) 4.1 % Basophils (%) (Auto) 0.3 % Neutrophils # (Auto) 15.3 TH/MM3 Lymphocytes # (Auto) 0.9 TH/MM3 Monocytes # (Auto) 0.8 TH/MM3 Eosinophils # (Auto) 0.7 TH/MM3 Basophils # (Auto) 0.1 TH/MM3 CBC Comment AUTO DIFF Differential Total Cells 100 Counted Neutrophils % (Manual) 79 % Band Neutrophils % 7 % Lymphocytes % 4 % Monocytes % 5 % Eosinophils % 5 % Neutrophils # (Manual) 15.4 TH/MM3 Differential Comment FINAL DIFF MANUAL Platelet Estimate LOW Platelet Morphology Comment NORMAL Ovalocytes 1+ Test 05/21/16 05/21/16 01:10 03:50 Hemoglobin 9.1 GM/DL 9.2 GM/DL Hematocrit 26.9 % 26.8 % White Blood Count 18.2 TH/MM3 Red Blood Count 3.27 MIL/MM3 Mean Corpuscular Volume 81.9 FL Mean Corpuscular Hemoglobin 28.3 PG Mean Corpuscular Hemoglobin 34.5 % Concent Red Cell Distribution Width 17.8 % Platelet Count 144 TH/MM3 Mean Platelet Volume 8.0 FL Neutrophils (%) (Auto) 85.7 % Lymphocytes (%) (Auto) 5.5 % Monocytes (%) (Auto) 5.0 % Eosinophils (%) (Auto) 3.6 % Basophils (%) (Auto) 0.2 % Neutrophils # (Auto) 15.6 TH/MM3 Lymphocytes # (Auto) 1.0 TH/MM3 Monocytes # (Auto) 0.9 TH/MM3 Eosinophils # (Auto) 0.7 TH/MM3 Basophils # (Auto) 0.0 TH/MM3 CBC Comment AUTO DIFF Differential Total Cells 100 Counted Neutrophils % (Manual) 82 % Band Neutrophils % 3 % Lymphocytes % 4 % Monocytes % 8 % Eosinophils % 3 % Neutrophils # (Manual) 15.5 TH/MM3 Differential Comment FINAL DIFF MANUAL Platelet Estimate LOW Platelet Morphology Comment NORMAL Sodium Level 146 MEQ/L Potassium Level 4.7 MEQ/L Chloride Level 110 MEQ/L Carbon Dioxide Level 22.6 MEQ/L Anion Gap 13 MEQ/L Blood Urea Nitrogen 126 MG/DL Creatinine 3.81 MG/DL Estimat Glomerular Filtration 16 ML/MIN Rate Random Glucose 256 MG/DL Calcium Level 7.5 MG/DL Imaging Last Impressions GI Bleed Scan Nuclear Medicine 05/20/16 0000 Signed Impressions: Service Date/Time: Friday, May 20, 2016 14:25 - CONCLUSION: 1. Positive for gastrointestinal bleed in small bowel, probably at the proximal duodenum. Randy Byrne MD Chest X-Ray 05/18/161801 Signed Impressions: Service Date/Time: Wednesday, May 18, 2016 18:12 - CONCLUSION: 1. Right internal jugular central line has its tip in good position in the superior vena cava. There is no pneumothorax. 2. No acute cardiopulmonary disease. Lam Tavarez MD Central Venous Line 05/18/16 0000 Signed Impressions: Service Date/Time: Wednesday, May 18, 2016 00:00 - CONCLUSION: Uncomplicated line placement as above. Wilver Mendoza MD Celiac/Hepatic Arteriogram 05/18/16 0000 Signed Impressions: Service Date/Time: Wednesday, May 18, 2016 16:21 - CONCLUSION: 1. Active bleeding identified off the GDA in the expected location of the duodenum. 2. Successful coil and Gelfoam embolization of the right gastric and GDA as detailed above. Wilver Mendoza MD Renal Ultrasound 05/15/16 0000 Signed Impressions: Service Date/Time: Sunday, May 15, 2016 10:50 - CONCLUSION: 1. Kidneys within normal limits. 2. Findings suggesting cirrhosis and portal venous hypertension with varices and recanalized paraumbilical vein. Get Franco MD Lower Extremity Ultrasound 05/15/16 0000 Signed Impressions: Service Date/Time: Sunday, May 15, 2016 08:41 - CONCLUSION: 1. No evidence of lower extremity DVT on the right or left. 2. Elongated fluid in the proximal to mid left calf. The rectal diagnosis is muscle tear versus dissecting Santo cyst. 3. 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 Get Franco MD Knee MRI 05/15/16 0000 Signed Impressions: Service Date/Time: Sunday, May 15, 2016 16:51 - CONCLUSION: 1. Prominent edema in the medial calf with prominent fluid signal between the medial gastrocnemius and soleus muscles. Differential diagnosis is ruptured [place] cyst versus muscle strain. No fluid-filled gap in muscle fibers is seen. There is also adjacent superficial soft tissue edema in this region. 2. Small horizontal tear of the body of the medial meniscus. 3. Small joint effusion. 4. Mild reactive bony edema in the patella. 5. No evidence of osteomyelitis. 6. Moderate focal medial facet patellar chondromalacia. Get Franco MD Knee X-Ray 05/14/16 0000 Signed Impressions: Service Date/Time: Saturday, May 14, 2016 15:44 - CONCLUSION: Negative for fracture or dislocation. Follow up in 7-10 days is suggested if symptoms persist. Alexy Padron MD FACR Objective Remarks GENERAL: Patient is 66 yo intubated and sedated, SKIN: Warm and dry. HEAD: Normocephalic. EYES: No scleral icterus. No injection or drainage. NECK: Supple, trachea midline. No JVD or lymphadenopathy. CARDIOVASCULAR: Regular rate and rhythm without murmurs, gallops, or rubs. RESPIRATORY: Breath sounds equal bilaterally. No accessory muscle use. GASTROINTESTINAL: Abdomen soft, non-tender, nondistended. MUSCULOSKELETAL: No cyanosis, or edema. Neuro; Sedated and intubated. Date of Insertion: May 18, 2016 Line: Central Venous Catheter Side: Right Location: Internal, Jugular A/P Assessment and Plan NEURO: Acute encephalopathy Alcohol dependence -On Diprivan infusion for sedation. Daily sedation vacation -Use when necessary Ativan supplement thiamine and multivitamin RESP: Respiratory insufficiency History of asthma -Continue with vent support keep sat >92% - DuoNeb every 6 hours and when necessary, ventilator bundle - SBT trials as karon CV: Atrial fibrillation with rapid ventricular response -Monitor HR and BP keep MAP>65mmHg.- On Amio drip -Echo 05/17: EF 45-50%, no RWMA GI/HEME: Upper GI bleed/large duodenal ulcer Severe anemia requiring transfusion Liver cirrhosis -s/p Arteriogram with coli and embolization of right gastric and GDA 05/18 -NPO, IV Protonix drip -Surgery is following- Dr. Novak patient is high risk for surgery. -s/p repeat EGD 05/18 which showed duodenal ulcers with visible vessels s/p Epi injection and cauterization -EGD 05/16/16 shows large duodenal ulcer. Unable to visualize most of stomach and duodenum due to large amount of clot present Monitor CBC- will transfuse 1 unit PRBC and 1u PLT today. Check bleeding scan per GI- discussed with Dr. Martinez -s/p transfusion 2units PRBC 05/19 -Received 4 units PRBC since admission, s/p additional 5 units PRBC total 05/18y , 2u FFP, 1u PLT -Patient was given 3units PRBC and 1unit PLT since yesterday, monitor H/H Q6 hrs GI follow up might need repeat EGD today : Acute kidney failure -Monitor renal function, I/O's, avoid nephrotoxins. -Renal function is worse with Cr: 3.81 today from 3.43 , UO: 700 ml in 24hrs -Might need HD. -On PO bicarb 650mg Q8 -Nephrology Dr. Johnson is following. ID: -Continue empiric abx (Rocephin). Monitor for signs of infection ( Fever, WBC) culture if spikes fever. 05/14 BC: No growth 05/14 sputum cx: No growth 05/14, 05/17 urine cx: No growth ENDO: -SSI( low scale ) for glycemic control) PROPH: -Bilateral lower extremity SCDs. Chemical DVT prophylaxis contraindicated. Continue Protonix infusion LINES: -Utilize peripheral IVs, Right IJ CVP placed 05/18 CC time 30 min excluding procedure time Sandy Ovalle MD May 21, 2016 07:49
[2016-05-21] MEDS: FOLIC ACID 1 MG TAB PO SCH (08:35)
[2016-05-21] MEDS: cefTRIAXone INJ 1,000 MG in SODIUM CHLORIDE 0.9% INJ 100 ML IV SCH (08:35)
[2016-05-21] MEDS: MULTIVITAMINS/MINERALS THERAPEUTIC TAB PO SCH (08:35)
[2016-05-21] MEDS: CHLORHEXIDINE 0.12% (ORAL KIT) 15 ML CUP MT SCH ×2 (08:35→22:43)
[2016-05-21] MEDS: BUDESONIDE-FORMOTEROL 80/4.5 MCG INHALER INH SCH ×2 (09:00→21:00)
[2016-05-21] MEDS: THIAMINE HCL 100 MG TAB PO SCH (09:00)
[2016-05-21] MEDS: SODIUM CHLORIDE 0.9% FLUSH 10 ML FLUSH IVF SCH (09:00)
--- NOTE | 2016-05-21 09:47 | HHI.PR ---
Subjective Subjective Notes Intubated/Sedated RN Bree at beside Objective Vitals/I&O Vital Signs Date Time Temp Pulse Resp B/P Pulse Ox O2 Delivery O2 Flow Rate FiO2 05/21/16 07:39 40 05/21/16 07:34 99 05/21/16 06:00 122 05/21/16 06:00 05/21/16 04:00 98.3 21 05/17/16 08:15 Nasal Cannula 2.00 Labs Laboratory Tests Test 05/20/16 05/20/16 05/20/16 05/21/16 12:06 16:40 19:08 01:10 Blood Bank Comment White Blood Count 17.9 Red Blood Count 2.67 Hemoglobin 7.3 9.1 Hematocrit 22.3 26.9 Mean Corpuscular Volume 83.4 Mean Corpuscular Hemoglobin 27.3 Mean Corpuscular Hemoglobin 32.7 Concent Red Cell Distribution Width 19.4 Platelet Count 129 Mean Platelet Volume 7.9 Neutrophils (%) (Auto) 85.7 Lymphocytes (%) (Auto) 5.2 Monocytes (%) (Auto) 4.7 Eosinophils (%) (Auto) 4.1 Basophils (%) (Auto) 0.3 Neutrophils # (Auto) 15.3 Lymphocytes # (Auto) 0.9 Monocytes # (Auto) 0.8 Eosinophils # (Auto) 0.7 Basophils # (Auto) 0.1 CBC Comment AUTO DIFF Differential Total Cells 100 Counted Neutrophils % (Manual) 79 Band Neutrophils % 7 Lymphocytes % 4 Monocytes % 5 Eosinophils % 5 Neutrophils # (Manual) 15.4 Differential Comment FINAL DIFF MANUAL Platelet Estimate LOW Platelet Morphology Comment NORMAL Ovalocytes 1+ Blood Type A POSITIVE Crossmatch Leukocyte-Reduced Red Blood Cells Test 05/21/16 03:50 White Blood Count 18.2 Red Blood Count 3.27 Hemoglobin 9.2 Hematocrit 26.8 Mean Corpuscular Volume 81.9 Mean Corpuscular Hemoglobin 28.3 Mean Corpuscular Hemoglobin 34.5 Concent Red Cell Distribution Width 17.8 Platelet Count 144 Mean Platelet Volume 8.0 Neutrophils (%) (Auto) 85.7 Lymphocytes (%) (Auto) 5.5 Monocytes (%) (Auto) 5.0 Eosinophils (%) (Auto) 3.6 Basophils (%) (Auto) 0.2 Neutrophils # (Auto) 15.6 Lymphocytes # (Auto) 1.0 Monocytes # (Auto) 0.9 Eosinophils # (Auto) 0.7 Basophils # (Auto) 0.0 CBC Comment AUTO DIFF Differential Total Cells 100 Counted Neutrophils % (Manual) 82 Band Neutrophils % 3 Lymphocytes % 4 Monocytes % 8 Eosinophils % 3 Neutrophils # (Manual) 15.5 Differential Comment FINAL DIFF MANUAL Platelet Estimate LOW Platelet Morphology Comment NORMAL Sodium Level 146 Potassium Level 4.7 Chloride Level 110 Carbon Dioxide Level 22.6 Anion Gap 13 Blood Urea Nitrogen 126 Creatinine 3.81 Estimat Glomerular Filtration 16 Rate Random Glucose 256 Calcium Level 7.5 Date/Time Procedure Status Source Growth 05/17/16 21:30 Urine Culture - Final Complete Urine Catheterized Urine NO GROWTH IN 48 HOURS. 05/17/16 14:45 Gram Stain - Final Complete Sputum Endotracheal 05/17/16 14:45 Sputum Culture - Final Complete Sputum Endotracheal NO GROWTH IN 48 HOURS. Cardiovascular: Regular Lungs: Clear Abdomen: Other (mildly distended) Extremities: Other (generalized edema ) A/P Assessment and Plan 66 year old male with GI bleed; s/p angio -Hmg 9.2 today -Continue to follow abdominal exam -Continue non op treatment -CCM following -No reported GI bleeding overnight I CERTIFY AND ATTEST THAT I PHYSICALLY SAW THE PATIENT IN THEIR ROOM. MS BEVERLY DOCUMENTED OUR VISIT AND ENTERED ORDERS IN THE EMR UNDER MY DIRECT SUPERVISION. I DISCUSSED THE CARE PLAN WITH THE PATIENT AND THE STAFF AT THE BEDSIDE. RITA DIAZ MD FACS [facility] May 21, 2016 09:47 Rita Diaz MD May 23, 2016 10:22
[2016-05-21] MEDS ORDERED: ARTIFICIAL TEARS OPTH SOLN 15 ML BTL EACH EYE PRN (10:45)
[2016-05-21 11:04] LABS: HEMATOCRIT 26.7 % (39.0-51.0); REVIEW FLAG FINAL
--- NOTE | 2016-05-21 11:34 | HHI.FPPN ---
Subjective Remarks Pt seen and examined this morning. Pt intubated with ventilator settings of PEEP 5 FiO2 40%. Pt went into Afib with RVR overnight, currently on Amiodarone drip at rate of 17. Urine output of 730mls. (Hu Flood MD R2) Objective Vitals Vital Signs Date Time Temp Pulse Resp B/P Pulse Ox O2 Delivery O2 Flow Rate FiO2 05/21/16 11:01 100 40 05/21/16 07:39 40 05/21/16 07:34 99 40 05/21/16 06:00 122 05/21/16 06:00 05/21/16 04:00 05/21/16 04:00 98.3 119 21 115/56 98 05/21/16 04:00 119 05/21/16 04:00 40 05/21/16 03:55 97 40 05/21/16 02:00 05/21/16 02:00 130 05/21/16 00:38 95 40 05/21/16 00:00 05/21/16 00:00 40 05/21/16 00:00 126 05/21/16 00:00 98.9 126 29 145/62 100 05/20/16 22:00 05/20/16 22:00 84 05/20/16 20:29 100 40 05/20/16 20:00 40 05/20/16 20:00 98.1 83 21 142/62 100 05/20/16 20:00 83 05/20/16 18:00 81 05/20/16 16:20 100 40 05/20/16 16:02 100 60 05/20/16 16:00 81 05/20/16 16:00 98.3 81 19 131/60 100 05/20/16 16:00 40 05/20/16 14:00 78 05/20/16 13:25 99 40 05/20/16 12:00 40 05/20/16 12:00 75 05/20/16 12:00 98.4 75 21 132/95 100 I/O 05/20/16 05/20/16 05/20/16 05/21/16 05/21/16 05/21/16 07:00 15:00 23:00 07:00 15:00 23:00 Intake Total 930 ml 1106 ml 739 ml 697 ml Output Total 100 ml 300 ml 180 ml 250 ml Balance 830 ml 806 ml 559 ml 447 ml IV Total 930 ml 1106 ml 299 ml 547 ml Packed Cells 440 ml 150 ml Output Urine Total 100 ml 300 ml 150 ml 250 ml Gastric Drainage Total 30 ml # Bowel Movements 2 3 (Hu Flood MD R2) Result Diagram: 05/21/16 1020 05/21/16 0350 Objective Remarks GEN: Well-developed, well-nourished patient. No acute distress. Lying in bed CV: Tachycardic rate without obvious murmurs LUNGS: Clear to auscultation bilaterally. EXT: 1+ edema of legs to upper thigh. 1+ edema of hands. NEURO/PSYCH: Intubated, sedated (Hu Flood MD R2) Date of Insertion: May 18, 2016 Line: Central Venous Catheter Side: Right Location: Internal, Jugular (Hu Flood MD R2) A/P Assessment and Plan 65 y/o male with history of DM and osteomyelitis presents with left leg pain as well as GI bleed, diabetes mellitus. Admitted for anemia, JOSE and left knee pain. sdw: Dr. Farhan Ruffni Discharge Planning unclear, pending critical care course (Hu Flood MD R2) Attending Attestation Patient seen and examined. Case reviewed and discussed with the resident team. Agree with plan of care as discussed with me and documented in the resident note. he unfortunately has multiple somewhat intertwined problems where one effects the other (Chapis Farley MD) Problem List: (1) Acute encephalopathy Status: Acute Plan: Unclear etiology. DDx: delirium, alcohol withdrawal, metabolic encephalopathy, uremia Ammonia level normal -Critical care consulted: appreciate recs -Pt tolerated CPAP trials yesterday -Pt intubated 05/17 due to lethargy and airway protection -Sedated with Diprivan Abx: Rocephin 1 g IV qd (05/19 - ) (2) JOSE (acute kidney injury) Status: Acute Plan: Ddx includes pre-renal (dehydration/hypovolemia) vs renal (ATN). Concern for underlying CKD. Associated with decreased eating and drinking prior to presentation. Baseline Cr is 0.83 from 2 years ago, admission Cr is 5.38. Pre- sedation confusion likely due to uremia. -Renal function worsening today, likely due to hypotension vs IV contrast for arterial embolization for evaluation fo GI bleed -Strict I/Os -Bumex 2mg IV x1 on 05/20 Nephrology consulted: appreciate recommendations * PO biocarb supplement * Avoid nephrotoxic agents Imaging: * Renal US: Kidneys unremarkable. Finding suggesting cirrhosis and portal venous HTN with varices and recanalized paraumbilical vein. (3) Anemia Status: Acute Plan: No history of ulcers or blood thinners. Has some recent NSAID use and history of alcohol abuse. DDx: gastric/duodenal ulcer, esophageal varices, diverticulosis, colorectal cancer, polyps, IBD, hemorrhoids.H/H on admission was 6.8/20.6. Admission BUN/Cr ratio 19, suggestive of upper GI bleed. S/p transfusion on 05/19 due to hemoglobin remaining low at 7.4 Echo: EF 45-50%, mild MR, mild TR -Tachycardia and SOB likely due to anemia. CXR unremarkable except for cardiomegaly. -Hemoccult in ED positive. -H&H q6H; Transfuse as needed GI consulted: appreciate recommendations * s/p EGD 05/16 - Large clots in fundus, non-bleeding ulcer in duodenal bulb. Normal esophagus * Repeat EGD 05/18 - duodenal ulcers with visible vessels, cauterized -s/p arteriogram with coli and embolization of right gastric and GDA (05/18 ) * Gen surgery consulted-appreciate recs: Do not recommend surgery, operative mortality approaching 100% * Liver serologies negative Medications: * Protonix drip * Hold all anticoagulation (Coumadin, Plavix, Aspirin) (4) Atrial fibrillation Status: Acute Plan: Pt developed Afib with RVR. No history of Afib per patient. Given lopressor, cardizem. S/p cardizem infusion 05/17. See echo results above Holding chemo ppx due to GI bleed -Amiodarone drip -Continue to monitor tele, heart rate -Fluids as below (5) Diabetes mellitus Status: Acute Plan: Hold home metformin and glipizide. A1c of 6.1, could be falsely low due to blood loss anemia. Bedside glucose remains elevated in 200s -Low-dose sliding scale -Hold Levemir 10units BID, patient NPO (6) Cirrhosis Status: Acute Plan: Significant alcohol history. Denies alcohol withdrawals. No seizures in past. Cirrhosis seen on Renal US with evident of portal venous HTN with varices. Hepatitis panel negative. -Ammonia WNL -Rally pack -CIWA protocol See more details plan under anemia (7) Asthma Status: Chronic Plan: -Continue home inhaler, Advair -Albuterol PRN (8) Knee pain, acute Status: Acute Plan: Likely due to muscle tear and/or Santo cyst rupture contributing to pain and associated edema. -Ortho consulted: Appreciate recommendations. Does not look like septic joint because there is no significant effusion. -S/p antibiotics (Vanc 05/14-; Linezolid 05/15-05/16; Cefepime 05/14-05/16) -Pain control with Tylenol PO/IV to not exceed 3000mg -Would benefit for PT once acute pain and mental status improves. Imaging: * MRI: Prominent edema in the medial calf with prominent fluid signal between the medial gastrocnemius and soleus muscles. DDX is ruptured Santo cyst versus muscle strain. Small joint effusion. No evidence of osteomyelitis. * LE ultrasound: No evidence of DVT. Elongated fluid in the proximal to mid left calf. DDX is muscle tear versus dissecting Santo cyst. 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 * Left knee XR: Negative for fracture or dislocation (9) FEN Status: Acute Plan: Fluids: Holding, diuresing Electrolytes: unremarkable; continue to monitor Nutrition: NPO DVT ppx: SCDs/TEDs, chemoprophylaxis contraindicated due to GI bleed GI ppx: Protonix gtt (Hu Flood MD R2) Problem Qualifiers (1) Anemia: Qualified Code: D64.9 - Anemia, unspecified type (2) Atrial fibrillation: Qualified Code: I48.0 - Paroxysmal atrial fibrillation (3) Diabetes mellitus: Qualified Code: E11.8 - Type 2 diabetes mellitus with complication, without long-term current use of insulin (4) Cirrhosis: Qualified Code: K74.60 - Cirrhosis of liver without ascites, unspecified hepatic cirrhosis type (5) Asthma: Qualified Code: J45.909 - Uncomplicated asthma, unspecified asthma severity (6) Knee pain, acute: Qualified Code: M25.562 - Acute pain of left knee Hu Flood MD R2 May 21, 2016 11:33 Chapis Farley MD May 22, 2016 14:34
--- NOTE | 2016-05-21 12:30 | HHI.NPPN ---
Subjective History of Present Illness The aptient is a 65 yo [place] male who presented to this facility on 05/14 with complaints of continued L knee pain. Pt lethargic and not providing me with any information. Family not present. Information obtained from previous medical record. Was seen at [facility] ED on 05/11 with same complaint and was suspected at that point that he had septic arthritis and was prescribed Ibuprofen and Clindamycin. He has a PMHx of osteomyelitis with R great toe amputation in the past. It does not appear that he has any PMHx of CKD, but last labs that I see are from 2014. SCr baseline at that time as 0.8-0.9. Admitting SCr 5.38 at that improved slightly to 5.28 at consult. Interval History Pt remains intubated and sedated Review of Systems General General Remarks Unobtainable today. Objective Data Data 05/20/16 05/21/16 19:00 07:00 Intake Total 1106 ml 1436 ml Output Total 300 ml 430 ml Balance 806 ml 1006 ml IV Total 1106 ml 846 ml Packed Cells 590 ml Output Urine Total 300 ml 400 ml Gastric Drainage Total 30 ml # Bowel Movements 3 Vital Signs Date Time Temp Pulse Resp B/P Pulse Ox O2 Delivery O2 Flow Rate FiO2 05/21/16 11:01 100 40 05/21/16 07:39 40 05/21/16 07:34 99 40 05/21/16 06:00 122 05/21/16 06:00 05/21/16 04:00 05/21/16 04:00 98.3 119 21 115/56 98 05/21/16 04:00 119 05/21/16 04:00 40 05/21/16 03:55 97 40 05/21/16 02:00 05/21/16 02:00 130 05/21/16 00:38 95 40 05/21/16 00:00 05/21/16 00:00 40 05/21/16 00:00 126 05/21/16 00:00 98.9 126 29 145/62 100 05/20/16 22:00 05/20/16 22:00 84 05/20/16 20:29 100 40 05/20/16 20:00 40 05/20/16 20:00 98.1 83 21 142/62 100 05/20/16 20:00 83 05/20/16 18:00 81 05/20/16 16:20 100 40 05/20/16 16:02 100 60 05/20/16 16:00 81 05/20/16 16:00 98.3 81 19 131/60 100 05/20/16 16:00 40 05/20/16 14:00 78 05/20/16 13:25 99 40 -: 05/21/16 1020 05/21/16 0350 Medication Review Current Medications Medications (Trade) Dose Ordered Sig/Irene Route Start Time Stop Time Status Last Admin (NS Flush) 2 ml UNSCH PRN IV FLUSH 05/14/16 17:30 (NS Flush) 2 ml BID IV FLUSH 05/14/16 21:00 05/21/16 03:28 (Zofran Inj) 4 mg Q6H PRN IVP 05/14/16 17:30 (Narcan Inj) 0.4 mg UNSCH PRN IV 05/14/16 17:30 (Symbicort 80-4.5 Mcg Inh) 2 puff BID INH 05/14/16 21:00 05/17/16 08:46 (D50w (Vial) Inj) 25 ml UNSCH PRN IV PUSH 05/14/16 17:45 (Glucagon Inj) 1 mg UNSCH PRN OTHER 05/14/16 17:45 (Romazicon Inj) 0.2 mg Q1M PRN IV PUSH 05/14/16 20:00 (Ativan) 1 mg Q4H PRN PO 05/14/16 20:00 (Ativan Inj) 1 mg Q4H PRN IV PUSH 05/14/16 20:00 (Ativan) 2 mg Q2H PRN PO 05/14/16 20:00 (Ativan Inj) 2 mg Q2H PRN IV PUSH 05/14/16 20:00 05/17/16 10:16 (Ativan Inj) 2 mg Q1H PRN IV PUSH 05/14/16 20:00 (Ativan Inj) 2 mg Q15M PRN IV PUSH 05/14/16 20:00 (Sodium Bicarbonate) 650 mg Q8HR PO 05/15/16 14:00 05/21/16 06:18 (Tylenol) 650 mg Q6HR PRN PO 05/15/16 20:00 (Folate) 1 mg DAILY PO 05/17/16 09:00 4/4/17 08:59 05/21/16 08:35 (Vitamin B1) 100 mg DAILY PO 05/17/16 09:00 05/20/16 09:36 Multivitamins/ Minerals Therapeutic 1 tab 1 tab DAILY PO 05/17/16 09:00 05/22/16 08:59 05/21/16 08:35 (Protonix Inj/NS Inj) 100 ml @ 10 mls/hr Q10H IV 05/16/16 16:00 05/21/16 06:17 Miscellaneous Information Patient in critical care unit? Ass... [id number] .[id number] 05/16/16 21:15 (Chlorhexidine 2% Cloth) 3 pack UNSCH PRN TOPICAL 05/16/16 21:15 05/21/16 21:11 Chlorhexidine Gluconate 15 ml 15 ml BID@08,20 MT 05/17/16 20:00 05/21/16 08:35 Propofol 100 ml @ 0 mls/hr TITRATE IV 05/17/16 16:00 05/21/16 11:44 (fentaNYL DRIP) 250 ml @ 0 mls/hr TITRATE IV 05/17/16 16:00 (NS Flush) DAILY IVF 05/19/16 09:00 05/20/16 09:37 (NS Flush) UNSCH PRN IVF 05/18/16 18:15 (D50w (Vial) Inj) 25 ml UNSCH PRN IV PUSH 05/19/16 08:45 (Glucagon Inj) 1 mg UNSCH PRN OTHER 05/19/16 08:45 Insulin Human Regular 1 1 Q6H SQ 05/19/16 08:45 05/21/16 02:45 Ceftriaxone Sodium 1000 mg/ Sodium Chloride 100 ml @ 200 mls/hr Q24H IV 05/19/16 09:00 05/21/16 08:35 (Cordarone Inj/ D5W ([place]) Inj) 250 ml @ 0 mls/hr CONTINUOUS IV 05/21/16 00:45 05/21/16 01:02 (Tears Naturale Opth Soln) 1 drop BID EACH EYE 05/21/16 21:00 (Tears Naturale Opth Soln) 1 drop UNSCH PRN EACH EYE 05/21/16 10:45 Physical Exam General Appearance: No Acute Distress, Comfortable Eyes Eye Exam: Sclera White Pulmonary Resp Exam: Clear Bilaterally, Breath Sounds Equal, No Distress Cardiology CV Exam: Regular, Normal Sinus Rhythm, Good Perfusion Gastrointestinal/Abdomen GI Exam: Soft, Non-Tender Integumentary Skin Exam: Clear, Warm Extremeties Extremities Exam: Moderate Edema Extremeties Remarks 2+ pitting BUE & BLE Neurologic Neuro Exam: Sedated Assessment/Plan Discussed Condition With: Patient Problem List: (1) Acute renal failure Plan: Renal functions declining again. UOP marginal. Will give Bumex 2mg q12h to try to improve volume status. Given his azotemia and volume overload, may require dialytic intervention as early as tomorrow. Medications should eb adjusted for the patient's renal dysfunction. Avoid nephrotoxic agents such as iodinated contrast and NSAIDs. Avoid gadolinium when eGFR <30 (2) Acidosis Plan: Improving with po bicarb. Monitor (3) Anemia Plan: Endoscopy report reviewed. Apparently evidence of GI bleed with large duodenal ulcer. Serology negative (4) Diabetes mellitus Plan: Mgmt as per primary team (5) Pain of left calf Plan: Potential muscle tear versus strain as per imaging studies. No evidence of DVT (6) Cirrhosis Plan: Suggested by imaging reports. Problem Qualifiers (1) Anemia: Qualified Code: D64.9 - Anemia, unspecified type (2) Diabetes mellitus: Qualified Code: E11.8 - Type 2 diabetes mellitus with complication, without long-term current use of insulin (3) Cirrhosis: Qualified Code: K74.60 - Cirrhosis of liver without ascites, unspecified hepatic cirrhosis type Nini Ahumada May 21, 2016 12:30
--- NOTE | 2016-05-21 12:53 | HHI.GIFU ---
Subjective Remarks Resting in bed. No active bleeding. HH seems to be holding. Intubated on the ventilator (Sumi Sweeney) Objective Vitals I&O Vital Signs Date Time Temp Pulse Resp B/P Pulse Ox O2 Delivery O2 Flow Rate FiO2 05/21/16 11:01 100 40 05/21/16 07:39 40 05/21/16 07:34 99 40 05/21/16 06:00 122 05/21/16 06:00 05/21/16 04:00 05/21/16 04:00 98.3 119 21 115/56 98 05/21/16 04:00 119 05/21/16 04:00 40 05/21/16 03:55 97 40 05/21/16 02:00 05/21/16 02:00 130 05/21/16 00:38 95 40 05/21/16 00:00 05/21/16 00:00 40 05/21/16 00:00 126 05/21/16 00:00 98.9 126 29 145/62 100 05/20/16 22:00 05/20/16 22:00 84 05/20/16 20:29 100 40 05/20/16 20:00 40 05/20/16 20:00 98.1 83 21 142/62 100 05/20/16 20:00 83 05/20/16 18:00 81 05/20/16 16:20 100 40 05/20/16 16:02 100 60 05/20/16 16:00 81 05/20/16 16:00 98.3 81 19 131/60 100 05/20/16 16:00 40 05/20/16 14:00 78 05/20/16 13:25 99 40 I/O 05/20/16 05/20/16 05/20/16 05/21/16 05/21/16 05/21/16 07:00 15:00 23:00 07:00 15:00 23:00 Intake Total 930 ml 1106 ml 739 ml 697 ml Output Total 100 ml 300 ml 180 ml 250 ml Balance 830 ml 806 ml 559 ml 447 ml IV Total 930 ml 1106 ml 299 ml 547 ml Packed Cells 440 ml 150 ml Output Urine Total 100 ml 300 ml 150 ml 250 ml Gastric Drainage Total 30 ml # Bowel Movements 2 3 Laboratory Laboratory Tests Test 05/20/16 05/20/16 05/21/16 05/21/16 16:40 19:08 01:10 03:50 White Blood Count 17.9 18.2 Red Blood Count 2.67 3.27 Hemoglobin 7.3 9.1 9.2 Hematocrit 22.3 26.9 26.8 Mean Corpuscular Volume 83.4 81.9 Mean Corpuscular Hemoglobin 27.3 28.3 Mean Corpuscular Hemoglobin 32.7 34.5 Concent Red Cell Distribution Width 19.4 17.8 Platelet Count 129 144 Mean Platelet Volume 7.9 8.0 Neutrophils (%) (Auto) 85.7 85.7 Lymphocytes (%) (Auto) 5.2 5.5 Monocytes (%) (Auto) 4.7 5.0 Eosinophils (%) (Auto) 4.1 3.6 Basophils (%) (Auto) 0.3 0.2 Neutrophils # (Auto) 15.3 15.6 Lymphocytes # (Auto) 0.9 1.0 Monocytes # (Auto) 0.8 0.9 Eosinophils # (Auto) 0.7 0.7 Basophils # (Auto) 0.1 0.0 CBC Comment AUTO DIFF AUTO DIFF Differential Total Cells 100 100 Counted Neutrophils % (Manual) 79 82 Band Neutrophils % 7 3 Lymphocytes % 4 4 Monocytes % 5 8 Eosinophils % 5 3 Neutrophils # (Manual) 15.4 15.5 Differential Comment FINAL DIFF FINAL DIFF MANUAL MANUAL Platelet Estimate LOW LOW Platelet Morphology Comment NORMAL NORMAL Ovalocytes 1+ Blood Type A POSITIVE Crossmatch Leukocyte-Reduced Red Blood Cells Blood Bank Comment Sodium Level 146 Potassium Level 4.7 Chloride Level 110 Carbon Dioxide Level 22.6 Anion Gap 13 Blood Urea Nitrogen 126 Creatinine 3.81 Estimat Glomerular Filtration 16 Rate Random Glucose 256 Calcium Level 7.5 Test 05/21/16 05/21/16 08:00 10:20 Urine Eosinophils RARE Hemoglobin 9.0 Hematocrit 26.7 Date/Time Procedure Status Source Growth 05/17/16 21:30 Urine Culture - Final Complete Urine Catheterized Urine NO GROWTH IN 48 HOURS. 05/17/16 14:45 Gram Stain - Final Complete Sputum Endotracheal 05/17/16 14:45 Sputum Culture - Final Complete Sputum Endotracheal NO GROWTH IN 48 HOURS. Imaging Last Impressions GI Bleed Scan Nuclear Medicine 05/20/16 0000 Signed Impressions: Service Date/Time: Friday, May 20, 2016 14:25 - CONCLUSION: 1. Positive for gastrointestinal bleed in small bowel, probably at the proximal duodenum. Randy Byrne MD Chest X-Ray 05/18/161801 Signed Impressions: Service Date/Time: Wednesday, May 18, 2016 18:12 - CONCLUSION: 1. Right internal jugular central line has its tip in good position in the superior vena cava. There is no pneumothorax. 2. No acute cardiopulmonary disease. Lam Tavarez MD Central Venous Line 05/18/16 0000 Signed Impressions: Service Date/Time: Wednesday, May 18, 2016 00:00 - CONCLUSION: Uncomplicated line placement as above. Wilver Mendoza MD Celiac/Hepatic Arteriogram 05/18/16 0000 Signed Impressions: Service Date/Time: Wednesday, May 18, 2016 16:21 - CONCLUSION: 1. Active bleeding identified off the GDA in the expected location of the duodenum. 2. Successful coil and Gelfoam embolization of the right gastric and GDA as detailed above. Wilver Mendoza MD Renal Ultrasound 05/15/16 0000 Signed Impressions: Service Date/Time: Sunday, May 15, 2016 10:50 - CONCLUSION: 1. Kidneys within normal limits. 2. Findings suggesting cirrhosis and portal venous hypertension with varices and recanalized paraumbilical vein. Get Franco MD Lower Extremity Ultrasound 05/15/16 0000 Signed Impressions: Service Date/Time: Sunday, May 15, 2016 08:41 - CONCLUSION: 1. No evidence of lower extremity DVT on the right or left. 2. Elongated fluid in the proximal to mid left calf. The rectal diagnosis is muscle tear versus dissecting Santo cyst. 3. 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 Get Franco MD Knee MRI 05/15/16 0000 Signed Impressions: Service Date/Time: Sunday, May 15, 2016 16:51 - CONCLUSION: 1. Prominent edema in the medial calf with prominent fluid signal between the medial gastrocnemius and soleus muscles. Differential diagnosis is ruptured Santo cyst versus muscle strain. No fluid-filled gap in muscle fibers is seen. There is also adjacent superficial soft tissue edema in this region. 2. Small horizontal tear of the body of the medial meniscus. 3. Small joint effusion. 4. Mild reactive bony edema in the patella. 5. No evidence of osteomyelitis. 6. Moderate focal medial facet patellar chondromalacia. Get Franco MD Knee X-Ray 05/14/16 0000 Signed Impressions: Service Date/Time: Saturday, May 14, 2016 15:44 - CONCLUSION: Negative for fracture or dislocation. Follow up in 7-10 days is suggested if symptoms persist. Alexy Padron MD FACR Physical Exam HEENT: Normocephalic; atraumatic; no jaundice CHEST: Resp. even/shallow. OETT CARDIAC: Irregular. ABDOMEN: Soft, nondistended, no hepatosplenomegaly; bowel sounds are present in all four quadrants. NGT clamped- no active bleeding. EXTREMITIES: Generalized edema. SKIN: Generalized pallor STUDENT AMBASSADOR: Sedated on vent. (Sumi Sweeney) Assessment and Plan Plan ASSESSMEN:T - GIB, Melanotic stool. and recent Ibuprofen use. On admission, he was noted to have HH 6.8/20.6. S/P EGD (05/16/16)----> 1. The esophagus appeared normal 2. Large clots in the fundus that obscured this portion of the stomach the rest of the stomach was unremarkable 3. I was only able to advance the scope into the duodenal bulb I was not able to make the sweep into the second portion of the duodenum due to a large clot that obscured vision and there was a large ulcer in the duodenal bulb 4. Large non-bleeding ulcer was found in the duodenal bulb 5. Normal endoscopy otherwise 6. Retroflexed views revealed large clots the obscured vision of the fundus. Rpt EGD (05/18/16)----> 1. Normal endoscopy otherwise 2. Multiple large ulcers were found in the duodenal bulb and 2nd part duodenum; cautery was applied to the sites for 5 secs; with complete hemostasis achieved; Submucosal injection of 10ml of epinephrine 1:10,000 was performed around the bleeding site 3. Retroflexed views revealed no abnormalities. Continued to have bleeding and therefore went to IR (05/19/16)----> active bleed from GDA, s/p coil and gelfoam embolization. S/P GS evaluation- no plans for surgical intervention. No active bleeding. NGT clamped. HH seems to be holding, but had another issue with bleeding this just now Will repeat EGD in am. - Anemia, acute blood loss. S/P 16 units PRBC, 2 units FFP, 1plt. 9.0/26.7. - Multiple large duodenal bulb and duodenal ulcers. S/P endoscopic tx, embolization. - Elevated LFT. He has a hx of heavy alcohol use. Hepatitis negative, KRYSTLE negative, AMSA negative, AMA neg, AFP 1.6, Ceruloplasmin 35, Alpha 1 Antitrypsin 365. Ferritin 582, Iron Saturation 60.5. - JOSE. Creat 3.81. Renal following. - Left knee pain with elevated ESR at >140 and CRP at 26.40. Orthopaedics are following and the workup is in progress. - Metabolic encephalopathy. Will check ammonia, but this may also be related to his acute renal failure. PLAN: - Plan for egd in am - Obtain consents - NPO except for meds - Cont. Protonix Gtt - Agree with transfusion - Monitor HH - Transfuse as necessary - Supportive care - S/P GS- no surgical interventions - Further recommendations to follow based on results of above - PT seen and examined by Dr. Mejía and myself and this note is written on his behalf (Sumi Sweeney) Physician Comments seen and examined with LEARNING AND DEVELOPMENT DIRECTOR, bleeding scan +ve in the upper small bowel. Melena on and off. H/H stable. Repeat egd planned. Transfuse as needed. IV protonix and octreotide. Discussed with Dr. Govea. (Rosaura Mejía MD) Sumi Sweeney May 21, 2016 12:53 Rosaura Mejía MD May 21, 2016 13:20
[2016-05-21 13:46] LABS: HEMATOCRIT 26.8 % (39.0-51.0); REVIEW FLAG FINAL
[2016-05-21] MEDS ORDERED: OCTREOTIDE INJ 500 MCG in SODIUM CHLORID 0.9% 500 ML INJ 499.5 ML IV SCH (15:00)
[2016-05-21] MEDS: BUMETANIDE INJ 1 MG/4 ML VIAL IV PUSH SCH ×2 (16:03→17:57)
[2016-05-21 19:43] LABS: HEMATOCRIT 27.2 % (39.0-51.0); REVIEW FLAG FINAL
[2016-05-21] MEDS: OCTREOTIDE INJ 500 MCG in SODIUM CHLORID 0.9% 500 ML INJ 499.5 ML IV SCH (21:58)
[2016-05-21] MEDS: ARTIFICIAL TEARS OPTH SOLN 15 ML BTL EACH EYE SCH (22:45)
[2016-05-21] MEDS: SODIUM CHLORIDE 0.9% FLUSH 10 ML FLUSH IVF PRN (22:46)
[2016-05-21 23:30] LABS: HEMATOCRIT 27.2 % (39.0-51.0); REVIEW FLAG FINAL
[2016-05-22] VITALS (19 sets, daily range): BP systolic 98–132; BP diastolic 52–61; PULSE 67–116; RESP 19–23; TEMP 97.9–98.9; O2SAT 90–100
[2016-05-22] MEDS: PROPOFOL 1000 MG/100 ML INJ 100 ML IV SCH ×5 (00:41→22:05)
[2016-05-22] MEDS: PANTOPRAZOLE INJ 80 MG in SODIUM CHLORIDE 0.9% INJ 100 ML IV SCH ×3 (00:42→22:02)
[2016-05-22] MEDS: AMIODARONE INJ 450 MG in D5W (EXCEL BAG) 241 ML IV SCH ×2 (03:14→18:37)
[2016-05-22] MEDS: OCTREOTIDE INJ 500 MCG in SODIUM CHLORID 0.9% 500 ML INJ 499.5 ML IV SCH ×5 (03:15→23:56)
[2016-05-22 03:54] LABS: AUTOMATED NEUTROPHIL # 14.8 TH/MM3 (1.8-7.7); BASOPHIL # 0.1 TH/MM3 (0-0.2); BASOPHIL % 0.4 % (0.0-2.0); EOSINOPHIL % 5.7 % (0.0-4.0); HEMATOCRIT 27.6 % (39.0-51.0); LYMPH % 5.6 % (9.0-44.0); MEAN CORPUSCULAR HGB CONC 34.5 % (32.0-36.0); MONO % 5.1 % (0.0-8.0); NEUT % 83.2 % (16.0-70.0); PLATELET COUNT 170 TH/MM3 (150-450); RED BLOOD COUNT 3.29 MIL/MM3 (4.50-5.90); RED CELL DISTRIBUTION WIDTH 17.7 % (11.6-17.2); WHITE BLOOD COUNT 17.8 TH/MM3 (4.0-11.0)
[2016-05-22 03:56] LABS: HEMO FLAGS AUTO DIFF
[2016-05-22 04:12] LABS: BICARBONATE 21.1 MEQ/L (21.0-32.0); POTASSIUM 4.7 MEQ/L (3.5-5.1)
[2016-05-22] MEDS: RESP: ALBUTEROL 2.5 MG/IPRATROPIUM 0.5 MG NEB (SCH) NEB ×4 (04:18→19:22)
[2016-05-22] MEDS: INSULIN NovoLIN REGULAR SUPPLEMENTAL SCALE SQ SCH ×4 (04:44→22:04)
[2016-05-22] MEDS: SODIUM BICARBONATE 650 MG TAB PO SCH ×3 (04:44→22:03)
[2016-05-22 05:01] LABS: BANDS 6 % (0-6); BASOPHILS 1 % (0-2); EOSINOPHILS 3 % (0-4); METAMYELOCYTES 1 % (0-1); NEUTROPHIL # MANUAL DIFF 16.6 TH/MM3 (1.8-7.7); PLATELET ESTIMATE SMEAR NORMAL (NORMAL); PLATELET MORPHOLOGY NORMAL (NORMAL); POLYS (SEG NEUTROPHILS) 86 % (16-70); SCAN/DIFF FINAL DIFF MANUAL; WBC DIFF SAMPLE 100
[2016-05-22 05:02] LABS: TOXIC GRANULATION 1+ (NORMAL)
--- NOTE | 2016-05-22 07:46 | HHI.CCPN ---
Subjective Remarks/Hospital Course Patient is a 65-year-old male with past medical history significant for type 2 diabetes, asthma and history of alcohol dependence who presents to the emergency department on 05/14/73 for evaluation of left knee pain. His workup revealed he had a elevated ESR at >140 and CRP at 26.40. Orthopaedics Dr. Bolaños. MRI did not show any evidence of infection. She was also found to be anemic with Hemoccult positive hemoglobin 6.8 and GI was consulted. Patient' s baseline creatinine is not known but he presented with BUN of 103 creatinine 5.39. Since admission patient received a total of 2 units PRBC. He underwent EGD yesterday and there was a lot of clot in the stomach. Evaluation of stomach was impossible due to large amount of blood. Dr. Muse was able to visualize a large duodenal ulcer which was not actively bleeding at that time. According to him he plan to redo the EGD tomorrow 05/18/16. Post EGD patient was transferred to the ICU yesterday evening due to high risk of recurrent bleed , need for possible IR embolization. According to the notes patient has not been recently drinking but was taking Ibuprofen 800mg po TID at home on the pain. Today regarding critical care medicine was consulted for altered mentation and A. fib with RVR. On my evaluation patient with very lethargic hardly wakes up able to state his name but very slurred speech. An ammonia level checked was normal. Patient received last dose of Ativan around 10 AM. My discussion with Dr. Muse he is planning to do endoscopy EGD again tomorrow. Because of questionable airway protection, GCS about 8 and upper GIB and this will also facilitate bedside EGD tomorrow 05/18 Patient is sedated with Diprivan and intubated. On Protonix and bicarb drips. Afebrile. For EGD today. 05/19 Patient s/p EGD yesterday with showed multiple duodenal ulcers with visible vessel s/p EPi injection and cauterization. Late afternoon yesterday became rebled became hypotensive and started on Levophed now 7 mics. He was given 4 units PRBC for Hgb 5.6 underwent arteriogram with coil and embolization of right gastric and GDA. Given additional 1unit PRBC, 2u FFP and 1u PLT overnight. Hgb 7.4 this morning from 10.1 last night. Placed on Amio drip overnight sedated with Diprivan. 05/20 Patient remains intubated and and sedated with Diprivan on Amio drip. Renal function worse today with Cr: 3.43 from 2.86 and UO: 475 ml in 24 hrs. Hgb 7.7 this morning s/p transfusion 2units PRBC yesterday. 05/21 Patient remains sedated with Diprivan and intubated. Tolerated CPAP for all day yesterday. Bleeding scan was positive for GI bleed in small bowel ( proximal Duodenum) Received total 3 units PRBC since yesterday and 1unit PLT. Hgb 9.2 this morning. Renal function is worse with Cr: 3.81 from 3.43 with UO:700ml in 24hrs. Patient went into Afib with RVR and placed on Amio drip. 05/22 Patient remains sedated with Diprivan and intubated. For repeat EGD today. On Sandostatin, Protonix and Amio drips. H/H stable. Renal function similar to yesterday with Cr: 3.80 however his UO is overall better- 2L in 24 hrs. Objective Vital Signs Date Time Temp Pulse Resp B/P Pulse Ox O2 Delivery O2 Flow Rate FiO2 05/22/16 04:03 100 40 05/22/16 04:00 05/22/16 04:00 97.9 108 22 Intake and Output 05/21/16 05/21/16 05/22/16 08:00 16:00 00:00 Intake Total 697 ml 420 ml 1075 ml Output Total 250 ml 400 ml 1000 ml Balance 447 ml 20 ml 75 ml Result Diagram: 05/22/16 0310 05/22/16 0310 Other Results Laboratory Tests Test 05/21/16 05/21/16 05/21/16 05/21/16 08:00 10:20 13:15 19:00 Urine Eosinophils RARE /HPF Hemoglobin 9.0 GM/DL 9.0 GM/DL 9.3 GM/DL Hematocrit 26.7 % 26.8 % 27.2 % Test 05/21/16 05/22/16 23:00 03:10 Hemoglobin 9.1 GM/DL 9.5 GM/DL Hematocrit 27.2 % 27.6 % White Blood Count 17.8 TH/MM3 Red Blood Count 3.29 MIL/MM3 Mean Corpuscular Volume 84.0 FL Mean Corpuscular Hemoglobin 29.0 PG Mean Corpuscular Hemoglobin 34.5 % Concent Red Cell Distribution Width 17.7 % Platelet Count 170 TH/MM3 Mean Platelet Volume 7.8 FL Neutrophils (%) (Auto) 83.2 % Lymphocytes (%) (Auto) 5.6 % Monocytes (%) (Auto) 5.1 % Eosinophils (%) (Auto) 5.7 % Basophils (%) (Auto) 0.4 % Neutrophils # (Auto) 14.8 TH/MM3 Lymphocytes # (Auto) 1.0 TH/MM3 Monocytes # (Auto) 0.9 TH/MM3 Eosinophils # (Auto) 1.0 TH/MM3 Basophils # (Auto) 0.1 TH/MM3 CBC Comment AUTO DIFF Differential Total Cells 100 Counted Neutrophils % (Manual) 86 % Band Neutrophils % 6 % Lymphocytes % 2 % Monocytes % 1 % Eosinophils % 3 % Basophils % 1 % Neutrophils # (Manual) 16.6 TH/MM3 Metamyelocytes 1 % Differential Comment FINAL DIFF MANUAL Toxic Granulation 1+ Platelet Estimate NORMAL Platelet Morphology Comment NORMAL Sodium Level 146 MEQ/L Potassium Level 4.7 MEQ/L Chloride Level 111 MEQ/L Carbon Dioxide Level 21.1 MEQ/L Anion Gap 14 MEQ/L Blood Urea Nitrogen 131 MG/DL Creatinine 3.80 MG/DL Estimat Glomerular Filtration 16 ML/MIN Rate Random Glucose 279 MG/DL Calcium Level 7.8 MG/DL Imaging Last Impressions GI Bleed Scan Nuclear Medicine 05/20/16 0000 Signed Impressions: Service Date/Time: Friday, May 20, 2016 14:25 - CONCLUSION: 1. Positive for gastrointestinal bleed in small bowel, probably at the proximal duodenum. Randy Byrne MD Chest X-Ray 05/18/16 180 Signed Impressions: Service Date/Time: Wednesday, May 18, 2016 18:12 - CONCLUSION: 1. Right internal jugular central line has its tip in good position in the superior vena cava. There is no pneumothorax. 2. No acute cardiopulmonary disease. Lam Tavarez MD Central Venous Line 05/18/16 0000 Signed Impressions: Service Date/Time: Wednesday, May 18, 2016 00:00 - CONCLUSION: Uncomplicated line placement as above. Wilver Mendoza MD Celiac/Hepatic Arteriogram 05/18/16 0000 Signed Impressions: Service Date/Time: Wednesday, May 18, 2016 16:21 - CONCLUSION: 1. Active bleeding identified off the GDA in the expected location of the duodenum. 2. Successful coil and Gelfoam embolization of the right gastric and GDA as detailed above. Wilver Mendoza MD Renal Ultrasound 05/15/16 Signed Impressions: Service Date/Time: Sunday, May 15, 2016 10:50 - CONCLUSION: 1. Kidneys within normal limits. 2. Findings suggesting cirrhosis and portal venous hypertension with varices and recanalized paraumbilical vein. Get Franco MD Lower Extremity Ultrasound 05/15/16 Signed Impressions: Service Date/Time: Sunday, May 15, 2016 08:41 - CONCLUSION: 1. No evidence of lower extremity DVT on the right or left. 2. Elongated fluid in the proximal to mid left calf. The rectal diagnosis is muscle tear versus dissecting Santo cyst. 3. 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 Get Franco MD Knee MRI 05/15/16 Signed Impressions: Service Date/Time: Sunday, May 15, 2016 16:51 - CONCLUSION: 1. Prominent edema in the medial calf with prominent fluid signal between the medial gastrocnemius and soleus muscles. Differential diagnosis is ruptured Santo cyst versus muscle strain. No fluid-filled gap in muscle fibers is seen. There is also adjacent superficial soft tissue edema in this region. 2. Small horizontal tear of the body of the medial meniscus. 3. Small joint effusion. 4. Mild reactive bony edema in the patella. 5. No evidence of osteomyelitis. 6. Moderate focal medial facet patellar chondromalacia. Get Franco MD Knee X-Ray 05/14/16 Signed Impressions: Service Date/Time: Saturday, May 14, 2016 15:44 - CONCLUSION: Negative for fracture or dislocation. Follow up in 7-10 days is suggested if symptoms persist. Alexy Padron MD FACR Objective Remarks GENERAL: Patient is 66 yo intubated and sedated, SKIN: Warm and dry. HEAD: Normocephalic. EYES: No scleral icterus. No injection or drainage. NECK: Supple, trachea midline. No JVD or lymphadenopathy. CARDIOVASCULAR: Regular rate and rhythm without murmurs, gallops, or rubs. RESPIRATORY: Breath sounds equal bilaterally. No accessory muscle use. GASTROINTESTINAL: Abdomen soft, non-tender, nondistended. MUSCULOSKELETAL: No cyanosis, or edema. Neuro; Sedated and intubated. Date of Insertion: May 18, 2016 Line: Central Venous Catheter Side: Right Location: Internal, Jugular A/P Assessment and Plan NEURO: Acute encephalopathy Alcohol dependence -On Diprivan infusion for sedation. Daily sedation vacation -Use when necessary Ativan supplement thiamine and multivitamin RESP: Respiratory insufficiency History of asthma -Continue with vent support keep sat >92% - DuoNeb every 6 hours and when necessary, ventilator bundle - SBT trials as karon CV: Atrial fibrillation with rapid ventricular response -Monitor HR and BP keep MAP>65mmHg.- On Amio drip -Echo 05/17: EF 45-50%, no RWMA GI/HEME: Upper GI bleed/large duodenal ulcer Severe anemia requiring transfusion Liver cirrhosis -s/p Arteriogram with coli and embolization of right gastric and GDA 05/18 Bleeding scan positive for GI bleed in small bowel probably in proximal Jejunum 05/20 -NPO, IV Protonix and Sandostatin drips, for EGD today -Monitor CBC Keep Hgb >8 -Surgery is following- Dr. Novak- patient is high risk for surgery. -s/p repeat EGD 05/18 which showed duodenal ulcers with visible vessels s/p Epi injection and cauterization -EGD 05/16/16 shows large duodenal ulcer. Unable to visualize most of stomach and duodenum due to large amount of clot present -s/p transfusion 2units PRBC 05/19 -Received 4 units PRBC since admission, s/p additional 5 units PRBC total 05/18y , 2u FFP, 1u PLT : Acute kidney failure -Monitor renal function, I/O's, avoid nephrotoxins. -Renal function is worse with Cr: 3.80 today , UO: 2L in 24hrs -Might need HD. -On PO bicarb 650mg Q8, on Bumex 2mg IV BID -Nephrology Dr. Johnson is following. ID: -Continue empiric abx (Rocephin). Monitor for signs of infection ( Fever, WBC) culture if spikes fever. 05/14 BC: No growth 05/14 sputum cx: No growth 05/14, 05/17 urine cx: No growth ENDO: -SSI( low scale ) for glycemic control) PROPH: -Bilateral lower extremity SCDs. Chemical DVT prophylaxis contraindicated. Continue Protonix infusion LINES: -Utilize peripheral IVs, Right IJ CVP placed 05/18 CC time 30 min excluding procedure time Sandy Ovalle MD May 22, 2016 07:46
[2016-05-22] MEDS: CHLORHEXIDINE 0.12% (ORAL KIT) 15 ML CUP MT SCH ×2 (08:15→22:04)
[2016-05-22] MEDS: ARTIFICIAL TEARS OPTH SOLN 15 ML BTL EACH EYE SCH ×2 (08:15→22:03)
[2016-05-22] MEDS: cefTRIAXone INJ 1,000 MG in SODIUM CHLORIDE 0.9% INJ 100 ML IV SCH (08:15)
[2016-05-22] MEDS: THIAMINE HCL 100 MG TAB PO SCH (08:16)
[2016-05-22] MEDS: SODIUM CHLORIDE 0.9% FLUSH 10 ML FLUSH IVF SCH (08:16)
[2016-05-22] MEDS: SODIUM CHLORIDE 0.9% FLUSH 10 ML FLUSH IVF PRN (08:16)
[2016-05-22] MEDS: BUDESONIDE-FORMOTEROL 80/4.5 MCG INHALER INH SCH ×2 (08:16→21:00)
[2016-05-22] MEDS: SODIUM CHLORIDE 0.9% FLUSH 10 ML FLUSH IV FLUSH SCH ×2 (08:16→22:03)
--- NOTE | 2016-05-22 08:41 | HHI.FPPN ---
Subjective Remarks Pt seen and examined this morning. No acute events overnight. Pt continues to be sedated and intubated, ventilator settings with PEEP of 5, FIO2 35%. Urine output 2000 mls. Anticipate EGD later today. No active bleeding reported. ( Hu Flood MD R2) Objective Vitals Vital Signs Date Time Temp Pulse Resp B/P Pulse Ox O2 Delivery O2 Flow Rate FiO2 05/22/16 07:40 98 35 05/22/16 04:03 100 40 05/22/16 04:00 05/22/16 04:00 97.9 108 22 120/58 90 05/22/16 04:00 40 05/22/16 04:00 110 05/22/16 02:00 113 05/22/16 01:09 99 40 05/22/16 00:00 05/22/16 00:00 98.4 110 23 114/53 97 05/22/16 00:00 40 05/22/16 00:00 116 05/21/16 22:06 99 40 05/21/16 22:00 110 05/21/16 20:00 110 05/21/16 20:00 98.0 104 23 118/59 100 05/21/16 20:00 05/21/16 20:00 40 05/21/16 19:40 99 40 05/21/16 18:00 05/21/16 16:10 100 40 05/21/16 16:00 40 05/21/16 16:00 05/21/16 16:00 97.1 103 25 115/53 99 05/21/16 14:00 05/21/16 12:00 05/21/16 12:00 40 05/21/16 12:00 97.3 114 22 134/56 99 05/21/16 11:01 100 40 05/21/16 10:00 113 05/21/16 10:00 I/O 05/21/16 05/21/16 05/21/16 05/22/16 05/22/16 05/22/16 07:00 15:00 23:00 07:00 15:00 23:00 Intake Total 697 ml 420 ml 1075 ml 1351 ml Output Total 250 ml 400 ml 1000 ml 600 ml Balance 447 ml 20 ml 75 ml 751 ml Intake Oral 0 ml 0 ml IV Total 547 ml 420 ml 975 ml 1251 ml Packed Cells 150 ml Other 100 ml 100 ml Output Urine Total 250 ml 400 ml 1000 ml 600 ml Gastric Drainage Total 0 ml 0 ml # Bowel Movements 1 1 1 (Hu Flood MD R2) Result Diagram: 05/22/1630905/22/16309 Objective Remarks GEN: Well-developed, well-nourished patient. No acute distress. Lying in bed. CV: Tachycardic rate without obvious murmurs LUNGS: Clear to auscultation bilaterally. EXT: 1+ edema of legs to upper thigh. 2+ edema of hands. NEURO/PSYCH: Intubated, sedated (Hu Flood MD R2) Date of Insertion: May 18, 2016 Line: Central Venous Catheter Side: Right Location: Internal, Jugular (Hu Flood MD R2) A/P Assessment and Plan 65 y/o male with history of DM and osteomyelitis presents with left leg pain as well as GI bleed, diabetes mellitus. Admitted for anemia, JOSE and left knee pain. sdw: Dr. Real dw: Dr. Farley Discharge Planning unclear, pending critical care course (Hu Flood MD R2) Attending Attestation Patient seen and examined. Case reviewed and discussed with the resident team. Agree with plan of care as discussed with me and documented in the resident note. (Chapis Farley MD) Problem List: (1) Acute encephalopathy Status: Acute Plan: Unclear etiology. DDx: delirium, alcohol withdrawal, metabolic encephalopathy, uremia Ammonia level normal -Critical care consulted: appreciate recs -Pt intubated 05/17 due to lethargy and airway protection -Consider CPAP trial -Sedated with Diprivan, daily sedation vacation Abx: Rocephin 1 g IV qd (05/19 - ) (2) JOSE (acute kidney injury) Status: Acute Plan: Ddx includes pre-renal (dehydration/hypovolemia) vs renal (ATN). Concern for underlying CKD. Associated with decreased eating and drinking prior to presentation. Baseline Cr is 0.83 from 2 years ago, admission Cr is 5.38. Pre- sedation confusion likely due to uremia. -Renal function stable today. JOSE likely due to hypotension vs IV contrast for arterial embolization for evaluation fo GI bleed. -Strict I/Os Nephrology consulted: appreciate recommendations * IV Diuril BID * Sodium bicarbonate PO Q8hrs * Bumex 2mg IV BID * Renal function stable, defer dialysis * Avoid nephrotoxic agents Imaging: * Renal US: Kidneys unremarkable. Finding suggesting cirrhosis and portal venous HTN with varices and recanalized paraumbilical vein. (3) Anemia Status: Acute Plan: No history of ulcers or blood thinners. Has some recent NSAID use and history of alcohol abuse. DDx: gastric/duodenal ulcer, esophageal varices, diverticulosis, colorectal cancer, polyps, IBD, hemorrhoids.H/H on admission was 6.8/20.6. Admission BUN/Cr ratio 19, suggestive of upper GI bleed. S/p transfusion on 05/19 due to hemoglobin remaining low at 7.4 Echo: EF 45-50%, mild MR, mild TR -Tachycardia and SOB likely due to anemia. CXR unremarkable except for cardiomegaly. -Hemoccult in ED positive. -H&H q6H; Transfuse as needed GI consulted: appreciate recommendations * s/p EGD 05/16 - Large clots in fundus, non-bleeding ulcer in duodenal bulb. Normal esophagus * Repeat EGD 05/18 - duodenal ulcers with visible vessels, cauterized -s/p arteriogram with coli and embolization of right gastric and GDA (05/18 ) * Repeat EGD 05/22 - large duodenal ulcers with no active bleeding * Gen surgery consulted-appreciate recs: Do not recommend surgery, operative mortality approaching 100% * Liver serologies negative Medications: * Protonix drip * Hold all anticoagulation (Coumadin, Plavix, Aspirin) (4) Atrial fibrillation Status: Acute Plan: Pt developed Afib with RVR. No history of Afib per patient. Given lopressor, cardizem. S/p cardizem infusion 05/17. See echo results above Holding chemo ppx due to GI bleed -Amiodarone drip, consider transitioning to PO -Continue to monitor tele, heart rate -Fluids as below (5) Diabetes mellitus Status: Acute Plan: Hold home metformin and glipizide. A1c of 6.1, could be falsely low due to blood loss anemia. [place] [id number] -Low-dose sliding scale -Hold Levemir 10units BID, patient NPO (6) Cirrhosis Status: Acute Plan: Significant alcohol history. Denies alcohol withdrawals. No seizures in past. Cirrhosis seen on Renal US with evident of portal venous HTN with varices. Hepatitis panel negative. -Ammonia WNL -Rally pack -CIWA protocol See more details plan under anemia (7) Asthma Status: Chronic Plan: -Albuterol PRN (8) Knee pain, acute Status: Acute Plan: Likely due to muscle tear and/or Santo cyst rupture contributing to pain and associated edema. -Ortho consulted: Appreciate recommendations. Does not look like septic joint because there is no significant effusion. -S/p antibiotics (Vanc 05/14-; Linezolid 05/15-05/16; Cefepime 05/14-05/16) -Pain control with Tylenol PO/IV to not exceed 3000mg -Would benefit for PT once acute pain and mental status improves. Imaging: * MRI: Prominent edema in the medial calf with prominent fluid signal between the medial gastrocnemius and soleus muscles. DDX is ruptured Santo cyst versus muscle strain. Small joint effusion. No evidence of osteomyelitis. * LE ultrasound: No evidence of DVT. Elongated fluid in the proximal to mid left calf. DDX is muscle tear versus dissecting Santo cyst. 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 * Left knee XR: Negative for fracture or dislocation (9) FEN Status: Acute Plan: Fluids: Holding, diuresing Electrolytes: Slight hypernatremia, sodium 146. Continue to monitor. Nutrition: NPO DVT ppx: SCDs/TEDs, chemoprophylaxis contraindicated due to GI bleed GI ppx: Protonix gtt (Hu Flood MD R2) Problem Qualifiers (1) Anemia: Qualified Code: D64.9 - Anemia, unspecified type (2) Atrial fibrillation: Qualified Code: I48.0 - Paroxysmal atrial fibrillation (3) Diabetes mellitus: Qualified Code: E11.8 - Type 2 diabetes mellitus with complication, without long-term current use of insulin (4) Cirrhosis: Qualified Code: K74.60 - Cirrhosis of liver without ascites, unspecified hepatic cirrhosis type (5) Asthma: Qualified Code: J45.909 - Uncomplicated asthma, unspecified asthma severity (6) Knee pain, acute: Qualified Code: M25.562 - Acute pain of left knee Hu Flood MD R2 May 22, 2016 08:41 Chapis Farley MD May 28, 2016 11:52
--- NOTE | 2016-05-22 10:04 | HHI.PR ---
Subjective Subjective Notes Intubated/Sedated Objective Vitals/I&O Vital Signs Date Time Temp Pulse Resp B/P Pulse Ox O2 Delivery O2 Flow Rate FiO2 05/22/16 09:00 40 05/22/16 08:00 05/22/16 07:40 98 05/22/16 04:00 97.9 108 22 Labs Laboratory Tests Test 05/21/16 05/21/16 05/21/16 05/21/16 10:20 13:15 19:00 23:00 Hemoglobin 9.0 9.0 9.3 9.1 Hematocrit 26.7 26.8 27.2 27.2 Test 05/22/16 03:10 White Blood Count 17.8 Red Blood Count 3.29 Hemoglobin 9.5 Hematocrit 27.6 Mean Corpuscular Volume 84.0 Mean Corpuscular Hemoglobin 29.0 Mean Corpuscular Hemoglobin 34.5 Concent Red Cell Distribution Width 17.7 Platelet Count 170 Mean Platelet Volume 7.8 Neutrophils (%) (Auto) 83.2 Lymphocytes (%) (Auto) 5.6 Monocytes (%) (Auto) 5.1 Eosinophils (%) (Auto) 5.7 Basophils (%) (Auto) 0.4 Neutrophils # (Auto) 14.8 Lymphocytes # (Auto) 1.0 Monocytes # (Auto) 0.9 Eosinophils # (Auto) 1.0 Basophils # (Auto) 0.1 CBC Comment AUTO DIFF Differential Total Cells 100 Counted Neutrophils % (Manual) 86 Band Neutrophils % 6 Lymphocytes % 2 Monocytes % 1 Eosinophils % 3 Basophils % 1 Neutrophils # (Manual) 16.6 Metamyelocytes 1 Differential Comment FINAL DIFF MANUAL Toxic Granulation 1+ Platelet Estimate NORMAL Platelet Morphology Comment NORMAL Sodium Level 146 Potassium Level 4.7 Chloride Level 111 Carbon Dioxide Level 21.1 Anion Gap 14 Blood Urea Nitrogen 131 Creatinine 3.80 Estimat Glomerular Filtration 16 Rate Random Glucose 279 Calcium Level 7.8 Date/Time Procedure Status Source Growth 05/17/16 21:30 Urine Culture - Final Complete Urine Catheterized Urine NO GROWTH IN 48 HOURS. 05/17/16 14:45 Gram Stain - Final Complete Sputum Endotracheal 05/17/16 14:45 Sputum Culture - Final Complete Sputum Endotracheal NO GROWTH IN 48 HOURS. Cardiovascular: Regular Lungs: Clear Abdomen: Non-distended, Non-tender Extremities: Other (generalized edema ) A/P Assessment and Plan 66 year old male with GI bleed; s/p angio -Hmg 9.5 today -GI planning to scope today--- will follow up on results -Continue to follow abdominal exam -Continue non op treatment -CCM following -No reported GI bleeding overnight I CERTIFY AND ATTEST THAT I PHYSICALLY SAW THE PATIENT IN THEIR ROOM. RENAE DOCUMENTED OUR VISIT AND ENTERED ORDERS IN THE EMR UNDER MY DIRECT SUPERVISION. I DISCUSSED THE CARE PLAN WITH THE PATIENT AND THE STAFF AT THE BEDSIDE. RITA DIAZ MD [facility] Ale BeverlyP May 22, 2016 10:04 Rita Diaz MD May 23, 2016 10:23
--- NOTE | 2016-05-22 11:15 | HHI.NPPN ---
Subjective History of Present Illness The aptient is a 65 yo [place] male who presented to this facility on 05/14 with complaints of continued L knee pain. Pt lethargic and not providing me with any information. Family not present. Information obtained from previous medical record. Was seen at [facility] ED on 05/11 with same complaint and was suspected at that point that he had septic arthritis and was prescribed Ibuprofen and Clindamycin. He has a PMHx of osteomyelitis with R great toe amputation in the past. It does not appear that he has any PMHx of CKD, but last labs that I see are from 2014. SCr baseline at that time as 0.8-0.9. Admitting SCr 5.38 at that improved slightly to 5.28 at consult. Interval History Patient on ventilator nonverbal. Review of Systems General General Remarks Unobtainable today. Objective Data Data 05/21/16 05/22/16 19:00 07:00 Intake Total 420 ml 2426 ml Output Total 400 ml 1600 ml Balance 20 ml 826 ml Intake Oral 0 ml IV Total 420 ml 2226 ml Other 200 ml Output Urine Total 400 ml 1600 ml Gastric Drainage Total 0 ml # Bowel Movements 1 2 Vital Signs Date Time Temp Pulse Resp B/P Pulse Ox O2 Delivery O2 Flow Rate FiO2 05/22/16 10:40 98 35 05/22/16 10:00 109 05/22/16 09:00 111 05/22/16 09:00 40 05/22/16 08:00 98.3 112 20 98/52 100 05/22/16 08:00 05/22/16 07:40 98 35 05/22/16 07:00 106 05/22/16 04:03 100 40 05/22/16 04:00 05/22/16 04:00 97.9 108 22 120/58 90 05/22/16 04:00 40 05/22/16 04:00 110 05/22/16 02:00 113 05/22/16 01:09 99 40 05/22/16 00:00 05/22/16 00:00 98.4 110 23 114/53 97 05/22/16 00:00 40 05/22/16 00:00 116 05/21/16 22:06 99 40 05/21/16 22:00 110 05/21/16 20:00 110 05/21/16 20:00 98.0 104 23 118/59 100 05/21/16 20:00 05/21/16 20:00 40 05/21/16 19:40 99 40 05/21/16 18:00 05/21/16 16:10 100 40 05/21/16 16:00 40 05/21/16 16:00 05/21/16 16:00 97.1 103 25 115/53 99 05/21/16 14:00 05/21/16 12:00 05/21/16 12:00 40 05/21/16 12:00 97.3 114 22 134/56 99 -: 05/22/16 0310 05/22/16 0310 Physical Exam General Appearance: No Acute Distress, Comfortable Eyes Eye Exam: Sclera White Pulmonary Resp Exam: Clear Bilaterally, Breath Sounds Equal, No Distress Cardiology CV Exam: Regular, Normal Sinus Rhythm, Good Perfusion Gastrointestinal/Abdomen GI Exam: Soft, Non-Tender Integumentary Skin Exam: Clear, Warm Extremeties Extremities Exam: Moderate Edema (upper and lower extremities) Neurologic Neuro Exam: Sedated Assessment/Plan Discussed Condition With: Patient Problem List: (1) Acute renal failure Plan: Patient's urine output has improved significantly with IV bumetanide. Hyponatremia present. Will add Diuril as ordered. Renal indices fairly stable from yesterday. We'll defer dialysis for the present. Improved urine output but if significant azotemia develops will proceed with same if family agrees. Medications should be adjusted for the patient's renal dysfunction. Avoid nephrotoxic agents such as iodinated contrast and NSAIDs. Avoid gadolinium when eGFR <30 (2) Acidosis Plan: Improving with po bicarb. Monitor (3) Anemia Plan: Endoscopy report reviewed. Apparently evidence of GI bleed with large duodenal ulcer. Serology negative (4) Diabetes mellitus Plan: Mgmt as per primary team (5) Pain of left calf Plan: Potential muscle tear versus strain as per imaging studies. No evidence of DVT (6) Cirrhosis Plan: Suggested by imaging reports. Problem Qualifiers (1) Anemia: Qualified Code: D64.9 - Anemia, unspecified type (2) Diabetes mellitus: Qualified Code: E11.8 - Type 2 diabetes mellitus with complication, without long-term current use of insulin (3) Cirrhosis: Qualified Code: K74.60 - Cirrhosis of liver without ascites, unspecified hepatic cirrhosis type Vero Johnson MD May 22, 2016 11:15
[2016-05-22] MEDS ORDERED: PHENYLEPH/NS 1000 MCG/10 ML SYR IV ONE (12:00)
[2016-05-22] MEDS ORDERED: ePHEDrine/NS 25 MG/5 ML SYR IV ONE (12:00)
[2016-05-22] MEDS: CHLOROTHIAZIDE SOD 500 MG VIAL IV SCH ×2 (13:05→23:57)
[2016-05-22] MEDS: BUMETANIDE INJ 1 MG/4 ML VIAL IV PUSH SCH ×2 (13:42→18:00)
[2016-05-22] MEDS ORDERED: PROPOFOL 200 MG/20 ML AMP IV ONE (14:30)
--- NOTE | 2016-05-22 14:43 | HHI.GIFU ---
Subjective Remarks patient is sedated and intubated, he had EGD with bleeding control from DU yesterday, patient dropped his blood pressure yesterday and plan was to do EGD after that. Objective Vitals I&O Vital Signs Date Time Temp Pulse Resp B/P Pulse Ox O2 Delivery O2 Flow Rate FiO2 05/22/16 13:12 99 35 05/22/16 10:40 98 35 05/22/16 10:00 109 05/22/16 09:00 111 05/22/16 09:00 40 05/22/16 08:00 98.3 112 20 98/52 100 05/22/16 08:00 05/22/16 07:40 98 35 05/22/16 07:00 106 05/22/16 04:03 100 40 05/22/16 04:00 05/22/16 04:00 97.9 108 22 120/58 90 05/22/16 04:00 40 05/22/16 04:00 110 05/22/16 02:00 113 05/22/16 01:09 99 40 05/22/16 00:00 05/22/16 00:00 98.4 110 23 114/53 97 05/22/16 00:00 40 05/22/16 00:00 116 05/21/16 22:06 99 40 05/21/16 22:00 110 05/21/16 20:00 110 05/21/16 20:00 98.0 104 23 118/59 100 05/21/16 20:00 05/21/16 20:00 40 05/21/16 19:40 99 40 05/21/16 18:00 05/21/16 16:10 100 40 05/21/16 16:00 40 05/21/16 16:00 05/21/16 16:00 97.1 103 25 115/53 99 I/O 05/21/16 05/21/16 05/21/16 05/22/16 05/22/16 05/22/16 07:00 15:00 23:00 07:00 15:00 23:00 Intake Total 697 ml 420 ml 1075 ml 1351 ml Output Total 250 ml 400 ml 1000 ml 600 ml Balance 447 ml 20 ml 75 ml 751 ml Intake Oral 0 ml 0 ml IV Total 547 ml 420 ml 975 ml 1251 ml Packed Cells 150 ml Other 100 ml 100 ml Output Urine Total 250 ml 400 ml 1000 ml 600 ml Gastric Drainage Total 0 ml 0 ml # Bowel Movements 1 1 1 Laboratory Laboratory Tests Test 05/21/16 05/21/16 05/22/16 19:00 23:00 03:10 Hemoglobin 9.3 9.1 9.5 Hematocrit 27.2 27.2 27.6 White Blood Count 17.8 Red Blood Count 3.29 Mean Corpuscular Volume 84.0 Mean Corpuscular Hemoglobin 29.0 Mean Corpuscular Hemoglobin 34.5 Concent Red Cell Distribution Width 17.7 Platelet Count 170 Mean Platelet Volume 7.8 Neutrophils (%) (Auto) 83.2 Lymphocytes (%) (Auto) 5.6 Monocytes (%) (Auto) 5.1 Eosinophils (%) (Auto) 5.7 Basophils (%) (Auto) 0.4 Neutrophils # (Auto) 14.8 Lymphocytes # (Auto) 1.0 Monocytes # (Auto) 0.9 Eosinophils # (Auto) 1.0 Basophils # (Auto) 0.1 CBC Comment AUTO DIFF Differential Total Cells 100 Counted Neutrophils % (Manual) 86 Band Neutrophils % 6 Lymphocytes % 2 Monocytes % 1 Eosinophils % 3 Basophils % 1 Neutrophils # (Manual) 16.6 Metamyelocytes 1 Differential Comment FINAL DIFF MANUAL Toxic Granulation 1+ Platelet Estimate NORMAL Platelet Morphology Comment NORMAL Sodium Level 146 Potassium Level 4.7 Chloride Level 111 Carbon Dioxide Level 21.1 Anion Gap 14 Blood Urea Nitrogen 131 Creatinine 3.80 Estimat Glomerular Filtration 16 Rate Random Glucose 279 Calcium Level 7.8 Date/Time Procedure Status Source Growth 05/17/16 21:30 Urine Culture - Final Complete Urine Catheterized Urine NO GROWTH IN 48 HOURS. 05/17/16 14:45 Gram Stain - Final Complete Sputum Endotracheal 05/17/16 14:45 Sputum Culture - Final Complete Sputum Endotracheal NO GROWTH IN 48 HOURS. Physical Exam HEENT: Normocephalic; atraumatic; no jaundice CHEST: Resp. even/shallow. OETT CARDIAC: Irregular. ABDOMEN: Soft, nondistended, no hepatosplenomegaly; bowel sounds are present in all four quadrants. NGT clamped- no active bleeding. EXTREMITIES: Generalized edema. SKIN: Generalized pallor FUNCTIONAL TESTER: Sedated on vent. Assessment and Plan Plan ASSESSMEN:T - GIB, Melanotic stool. and recent Ibuprofen use. On admission, he was noted to have HH 6.8/20.6. S/P EGD (05/16/16)----> 1. The esophagus appeared normal 2. Large clots in the fundus that obscured this portion of the stomach the rest of the stomach was unremarkable 3. I was only able to advance the scope into the duodenal bulb I was not able to make the sweep into the second portion of the duodenum due to a large clot that obscured vision and there was a large ulcer in the duodenal bulb 4. Large non-bleeding ulcer was found in the duodenal bulb 5. Normal endoscopy otherwise 6. Retroflexed views revealed large clots the obscured vision of the fundus. Rpt EGD (05/18/16)----> 1. Normal endoscopy otherwise 2. Multiple large ulcers were found in the duodenal bulb and 2nd part duodenum; cautery was applied to the sites for 5 secs; with complete hemostasis achieved; Submucosal injection of 10ml of epinephrine 1:10,000 was performed around the bleeding site 3. Retroflexed views revealed no abnormalities. Continued to have bleeding and therefore went to IR (05/19/16)----> active bleed from GDA, s/p coil and gelfoam embolization. S/P GS evaluation- no plans for surgical intervention. No active bleeding. NGT clamped. HH seems to be holding, but had another issue with bleeding this just now Will repeat EGD in am. - Anemia, acute blood loss. S/P 16 units PRBC, 2 units FFP, 1plt. 9.0/26.7. - Multiple large duodenal bulb and duodenal ulcers. S/P endoscopic tx, embolization. - Elevated LFT. He has a hx of heavy alcohol use. Hepatitis negative, KRYSTLE negative, AMSA negative, AMA neg, AFP 1.6, Ceruloplasmin 35, Alpha 1 Antitrypsin 365. Ferritin 582, Iron Saturation 60.5. - JOSE. Creat 3.81. Renal following. - Left knee pain with elevated ESR at >140 and CRP at 26.40. Orthopaedics are following and the workup is in progress. - Metabolic encephalopathy. Will check ammonia, but this may also be related to his acute renal failure. 05-22-16 more stable now, still intubated, EGD showed large duodenal ulcers but no active bleed. PLAN: - keep NPO - Cont. Protonix Gtt - Agree with transfusion - Monitor HH - Transfuse as necessary - Supportive care Raúl Russell MD May 22, 2016 14:43
--- NOTE | 2016-05-22 14:47 | GIPROC ---
[facility] [address] [facility]. [facility], [address] EGD PROCEDURE REPORT EXAM DATE: 05/22/2016 PATIENT NAME: Kal Gonzalez MR #: [id number] BIRTHDATE: 1950 ATTENDING: Raúl Russell MD ORDER #: [id number] [employer] SPECIALIST: Kieran Benavidez and Joby Baig STATUS: inpatient INDICATIONS: The patient is a 66 yr old male here for an EGD due to anemia PROCEDURE PERFORMED: EGD, diagnostic MEDICATIONS: Per Anesthesia and None. TOPICAL ANESTHETIC: none CONSENT: The patient understands the risks and benefits of the procedure and understands that these risks include, but are not limited to: sedation, allergic reaction, infection, perforation and/or bleeding. Alternative means of evaluation and treatment include, among others: physical exam, x-rays, and/or surgical intervention. The patient elects to proceed with this endoscopic procedure. medical equipment was checked for proper function. Hand hygiene and appropriate measures for infection prevention was taken. After the risks, benefits and alternatives of the procedure were thoroughly explained, Informed consent was verified, confirmed and timeout was successfully executed by the treatment team. The patient was anesthetized with topical anesthesia and the Pentax [id number] endoscope was introduced through the mouth and advanced to the second portion of the duodenum. Retroflexed views revealed no abnormalities The gastroscope was then slowly withdrawn and removed. Large multiple duodenal blub ulcwers, no active bleed. ADVERSE EVENTS: There were no complications. IMPRESSIONS: 1. Large multiple duodenal blub ulcwers, no active bleed 2. Retroflexed views revealed no abnormalities RECOMMENDATIONS: 1. Continue PPI 2. Follow up CBC PATIENT CONDITION: stable DISPOSITION: Inpatient REPEAT EXAM: EGD 2 months Raúl Russell MD eSigned: Raúl Russell MD 05/22/2016 2:47 PM cc:
[2016-05-23] VITALS (18 sets, daily range): BP systolic 118–153; BP diastolic 56–78; PULSE 65–122; RESP 16–20; TEMP 98.2–99.1; O2SAT 96–100
[2016-05-23] MEDS: INSULIN NovoLIN REGULAR SUPPLEMENTAL SCALE SQ SCH ×4 (02:57→20:08)
--- NOTE | 2016-05-23 04:34 | RADRPT ---
EXAM DATE/TIME: 05/23/2016 03:26 [place] COMPARISON: CHEST SINGLE AP, May 18, 2016, 18:12. INDICATIONS : Shortness of breath. MEDICAL HISTORY : Osteomyelitis. Asthma. Diabetes SURGICAL HISTORY : Righ great and 2nd toe amputated. Right knee surgery ENCOUNTER: Subsequent ACUITY: 1 week PAIN SCORE: Non-responsive. LOCATION: Bilateral chest FINDINGS: A single portable frontal view the chest shows an endotracheal tube with the tip 3 cm proximal to car tereso. Right-sided central line and nasogastric tube noted. No pneumothorax. Tiny effusions and bibasil ar infiltrates. Heart is normal in size. CONCLUSION: Tiny bilateral pleural effusions and bibasilar infiltrates. Carroll Joel Jr., MD on May 23, 2016 at 4:32 Board Certified Radiologist. This report was verified electronically.
[2016-05-23 04:55] LABS: BASOPHIL # 0.1 TH/MM3 (0-0.2); BASOPHIL % 0.5 % (0.0-2.0); EOSINOPHIL # 0.8 TH/MM3 (0-0.4); EOSINOPHIL % 6.2 % (0.0-4.0); HEMO FLAGS DIFF FINAL; LYMPH % 5.6 % (9.0-44.0); LYMPHOCYTE # 0.8 TH/MM3 (1.0-4.8); MEAN CELL VOLUME 85.9 FL (80.0-100.0); MEAN CORPUSCULAR HEMOGLOBIN 28.6 PG (27.0-34.0); MEAN CORPUSCULAR HGB CONC 33.3 % (32.0-36.0); MONO % 5.8 % (0.0-8.0); NEUT % 81.9 % (16.0-70.0); PLATELET COUNT 145 TH/MM3 (150-450); RED BLOOD COUNT 2.91 MIL/MM3 (4.50-5.90); RED CELL DISTRIBUTION WIDTH 17.9 % (11.6-17.2); WHITE BLOOD COUNT 13.5 TH/MM3 (4.0-11.0)
[2016-05-23 05:27] LABS: BICARBONATE 20.8 MEQ/L (21.0-32.0); POTASSIUM 4.5 MEQ/L (3.5-5.1)
[2016-05-23] MEDS: SODIUM BICARBONATE 650 MG TAB PO SCH ×3 (05:34→20:07)
[2016-05-23] MEDS: OCTREOTIDE INJ 500 MCG in SODIUM CHLORID 0.9% 500 ML INJ 499.5 ML IV SCH ×5 (05:34→22:44)
[2016-05-23] MEDS: BUDESONIDE-FORMOTEROL 80/4.5 MCG INHALER INH SCH ×2 (09:00→20:11)
[2016-05-23] MEDS: SODIUM CHLORIDE 0.9% FLUSH 10 ML FLUSH IVF SCH (09:00)
[2016-05-23] MEDS: SODIUM CHLORIDE 0.9% FLUSH 10 ML FLUSH IV FLUSH SCH ×2 (09:00→20:12)
[2016-05-23] MEDS: cefTRIAXone INJ 1,000 MG in SODIUM CHLORIDE 0.9% INJ 100 ML IV SCH (09:03)
[2016-05-23] MEDS: CHLORHEXIDINE 0.12% (ORAL KIT) 15 ML CUP MT SCH ×2 (09:04→20:10)
[2016-05-23] MEDS: PANTOPRAZOLE INJ 80 MG in SODIUM CHLORIDE 0.9% INJ 100 ML IV SCH ×2 (09:04→18:15)
[2016-05-23] MEDS: AMIODARONE INJ 450 MG in D5W (EXCEL BAG) 241 ML IV SCH ×3 (09:05→22:44)
[2016-05-23] MEDS: ARTIFICIAL TEARS OPTH SOLN 15 ML BTL EACH EYE SCH ×2 (09:06→20:11)
[2016-05-23] MEDS: THIAMINE HCL 100 MG TAB PO SCH (09:07)
--- NOTE | 2016-05-23 11:03 | HHI.CCPN ---
Subjective Remarks/Hospital Course Patient is a 65-year-old male with past medical history significant for type 2 diabetes, asthma and history of alcohol dependence who presents to the emergency department on 05/14/73 for evaluation of left knee pain. His workup revealed he had a elevated ESR at >140 and CRP at 26.40. Orthopaedics Dr. Bolaños. MRI did not show any evidence of infection. She was also found to be anemic with Hemoccult positive hemoglobin 6.8 and GI was consulted. Patient' s baseline creatinine is not known but he presented with BUN of 103 creatinine 5.39. Since admission patient received a total of 2 units PRBC. He underwent EGD yesterday and there was a lot of clot in the stomach. Evaluation of stomach was impossible due to large amount of blood. Dr. Muse was able to visualize a large duodenal ulcer which was not actively bleeding at that time. According to him he plan to redo the EGD tomorrow 05/18/16. Post EGD patient was transferred to the ICU yesterday evening due to high risk of recurrent bleed , need for possible IR embolization. According to the notes patient has not been recently drinking but was taking Ibuprofen 800mg po TID at home on the pain. Today regarding critical care medicine was consulted for altered mentation and A. fib with RVR. On my evaluation patient with very lethargic hardly wakes up able to state his name but very slurred speech. An ammonia level checked was normal. Patient received last dose of Ativan around 10 AM. My discussion with Dr. Muse he is planning to do endoscopy EGD again tomorrow. Because of questionable airway protection, GCS about 8 and upper GIB and this will also facilitate bedside EGD tomorrow 05/18 Patient is sedated with Diprivan and intubated. On Protonix and bicarb drips. Afebrile. For EGD today. 05/19 Patient s/p EGD yesterday with showed multiple duodenal ulcers with visible vessel s/p EPi injection and cauterization. Late afternoon yesterday became rebled became hypotensive and started on Levophed now 7 mics. He was given 4 units PRBC for Hgb 5.6 underwent arteriogram with coil and embolization of right gastric and GDA. Given additional 1unit PRBC, 2u FFP and 1u PLT overnight. Hgb 7.4 this morning from 10.1 last night. Placed on Amio drip overnight sedated with Diprivan. 05/20 Patient remains intubated and and sedated with Diprivan on Amio drip. Renal function worse today with Cr: 3.43 from 2.86 and UO: 475 ml in 24 hrs. Hgb 7.7 this morning s/p transfusion 2units PRBC yesterday. 05/21 Patient remains sedated with Diprivan and intubated. Tolerated CPAP for all day yesterday. Bleeding scan was positive for GI bleed in small bowel ( proximal Duodenum) Received total 3 units PRBC since yesterday and 1unit PLT. Hgb 9.2 this morning. Renal function is worse with Cr: 3.81 from 3.43 with UO:700ml in 24hrs. Patient went into Afib with RVR and placed on Amio drip. 05/22 Patient remains sedated with Diprivan and intubated. For repeat EGD today. On Sandostatin, Protonix and Amio drips. H/H stable. Renal function similar to yesterday with Cr: 3.80 however his UO is overall better- 2L in 24 hrs. 05/23: Drowsy off sedation, remains orally intubated on mechanical ventilation. Objective Vital Signs Date Time Temp Pulse Resp B/P Pulse Ox O2 Delivery O2 Flow Rate FiO2 05/23/16 08:05 99 30 05/23/16 06:00 67 05/23/16 04:00 05/23/16 04:00 99.1 18 Intake and Output 05/22/16 05/22/16 05/23/16 08:00 16:00 00:00 Intake Total 1351 ml 1719 ml 1119 ml Output Total 600 ml 600 ml 600 ml Balance 751 ml 1119 ml 519 ml Result Diagram: 05/23/16 0418 05/23/16 0418 Other Results Laboratory Tests Test 05/23/16 04:18 White Blood Count 13.5 TH/MM3 Red Blood Count 2.91 MIL/MM3 Hemoglobin 8.3 GM/DL Hematocrit 25.0 % Mean Corpuscular Volume 85.9 FL Mean Corpuscular Hemoglobin 28.6 PG Mean Corpuscular Hemoglobin 33.3 % Concent Red Cell Distribution Width 17.9 % Platelet Count 145 TH/MM3 Mean Platelet Volume 7.5 FL Neutrophils (%) (Auto) 81.9 % Lymphocytes (%) (Auto) 5.6 % Monocytes (%) (Auto) 5.8 % Eosinophils (%) (Auto) 6.2 % Basophils (%) (Auto) 0.5 % Neutrophils # (Auto) 11.0 TH/MM3 Lymphocytes # (Auto) 0.8 TH/MM3 Monocytes # (Auto) 0.8 TH/MM3 Eosinophils # (Auto) 0.8 TH/MM3 Basophils # (Auto) 0.1 TH/MM3 CBC Comment DIFF FINAL Differential Comment Sodium Level 145 MEQ/L Potassium Level 4.5 MEQ/L Chloride Level 111 MEQ/L Carbon Dioxide Level 20.8 MEQ/L Anion Gap 13 MEQ/L Blood Urea Nitrogen 126 MG/DL Creatinine 3.74 MG/DL Estimat Glomerular Filtration 16 ML/MIN Rate Random Glucose 227 MG/DL Calcium Level 7.7 MG/DL Imaging Last Impressions GI Bleed Scan Nuclear Medicine 05/20/16 0000 Signed Impressions: Service Date/Time: Friday, May 20, 2016 14:25 - CONCLUSION: 1. Positive for gastrointestinal bleed in small bowel, probably at the proximal duodenum. Randy Byrne MD Chest X-Ray 05/18/16 1802 Signed Impressions: Service Date/Time: Wednesday, May 18, 2016 18:12 - CONCLUSION: 1. Right internal jugular central line has its tip in good position in the superior vena cava. There is no pneumothorax. 2. No acute cardiopulmonary disease. Lam Tavarez MD Central Venous Line 05/18/16 0000 Signed Impressions: Service Date/Time: Wednesday, May 18, 2016 00:00 - CONCLUSION: Uncomplicated line placement as above. Wilver Mendoza MD Celiac/Hepatic Arteriogram 05/18/16 0000 Signed Impressions: Service Date/Time: Wednesday, May 18, 2016 16:21 - CONCLUSION: 1. Active bleeding identified off the GDA in the expected location of the duodenum. 2. Successful coil and Gelfoam embolization of the right gastric and GDA as detailed above. Wilver Mendoza MD Renal Ultrasound 05/15/16 0000 Signed Impressions: Service Date/Time: Sunday, May 15, 2016 10:50 - CONCLUSION: 1. Kidneys within normal limits. 2. Findings suggesting cirrhosis and portal venous hypertension with varices and recanalized paraumbilical vein. Get R Franco, MD Lower Extremity Ultrasound 05/15/16 0000 Signed Impressions: Service Date/Time: Sunday, May 15, 2016 08:41 - CONCLUSION: 1. No evidence of lower extremity DVT on the right or left. 2. Elongated fluid in the proximal to mid left calf. The rectal diagnosis is muscle tear versus dissecting Santo cyst. 3. 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 Get Franco MD Knee MRI 05/15/16 0000 Signed Impressions: Service Date/Time: Sunday, May 15, 2016 16:51 - CONCLUSION: 1. Prominent edema in the medial calf with prominent fluid signal between the medial gastrocnemius and soleus muscles. Differential diagnosis is ruptured Santo cyst versus muscle strain. No fluid-filled gap in muscle fibers is seen. There is also adjacent superficial soft tissue edema in this region. 2. Small horizontal tear of the body of the medial meniscus. 3. Small joint effusion. 4. Mild reactive bony edema in the patella. 5. No evidence of osteomyelitis. 6. Moderate focal medial facet patellar chondromalacia. Get Franco MD Knee X-Ray 05/14/16 0000 Signed Impressions: Service Date/Time: Saturday, May 14, 2016 15:44 - CONCLUSION: Negative for fracture or dislocation. Follow up in 7-10 days is suggested if symptoms persist. Alexy Padron MD FACR Objective Remarks GENERAL: Patient is 66 yo intubated and sedated, SKIN: Warm and dry. HEAD: Normocephalic. EYES: No scleral icterus. No injection or drainage. NECK: Supple, trachea midline. No JVD or lymphadenopathy. CARDIOVASCULAR: Regular rate and rhythm without murmurs, gallops, or rubs. RESPIRATORY: Breath sounds equal bilaterally. No accessory muscle use. GASTROINTESTINAL: Abdomen soft, non-tender, nondistended. MUSCULOSKELETAL: No cyanosis, or edema. Neuro; Sedated and intubated. Date of Insertion: May 18, 2016 Line: Central Venous Catheter Side: Right Location: Internal, Jugular A/P Assessment and Plan NEURO: Acute encephalopathy Alcohol dependence -On Diprivan infusion for sedation. Daily sedation vacation -Use when necessary Ativan supplement thiamine and multivitamin RESP: Respiratory insufficiency History of asthma -Continue with vent support keep sat >92% - DuoNeb every 6 hours and when necessary, ventilator bundle - SBT trials, if tolerated will extubate today CV: Atrial fibrillation with rapid ventricular response -Monitor HR and BP keep MAP>65mmHg.- On Amio drip, will switch to by mouth . GI clears for by mouth intake. -Echo 05/17: EF 45-50%, no RWMA GI/HEME: Upper GI bleed/large duodenal ulcer Severe anemia requiring transfusion Liver cirrhosis -s/p Arteriogram with coli and embolization of right gastric and GDA 05/18 Bleeding scan positive for GI bleed in small bowel probably in proximal Jejunum 05/20 -NPO, IV Protonix and Sandostatin drips, s/p EGD 05/22: multiple duodenal ulcers, no active bleeding -Monitor CBC Keep Hgb >8 -Surgery is following- Dr. Novak- patient is high risk for surgery. -s/p repeat EGD 05/18 which showed duodenal ulcers with visible vessels s/p Epi injection and cauterization -EGD 05/16/16 shows large duodenal ulcer. Unable to visualize most of stomach and duodenum due to large amount of clot present -s/p transfusion 2units PRBC 05/19 -Received 4 units PRBC since admission, s/p additional 5 units PRBC total 05/18y , 2u FFP, 1u PLT : Acute kidney failure -Monitor renal function, I/O's, avoid nephrotoxins. - Cr: 3.74 on 05/23 -Might need HD. -On PO bicarb 650mg Q8, on Bumex 2mg IV BID -Nephrology Dr. Johnson is following. ID: -Continue empiric abx (Rocephin). Monitor for signs of infection ( Fever, WBC) culture if spikes fever. 05/14 BC: No growth 05/14 sputum cx: No growth 05/14, 05/17 urine cx: No growth ENDO: -SSI( low scale ) for glycemic control) PROPH: -Bilateral lower extremity SCDs. Chemical DVT prophylaxis contraindicated. Continue Protonix infusion LINES: -Utilize peripheral IVs, Right IJ CVP placed 05/18 CC time 30 min excluding procedure time Austin Alvarez MD May 23, 2016 11:03
--- NOTE | 2016-05-23 11:53 | HHI.FPPN ---
Subjective Remarks Pt seen and examined this morning. No acute events overnight. Sedation has been turned off. Pt remains intubated. Ventilator settings with PEEP of 5 FiO2 of 35% . Possibility of extubation if patient tolerates CPAP trials. No active bleeding reported. (Hu Flood MD R2) Objective Vitals Vital Signs Date Time Temp Pulse Resp B/P Pulse Ox O2 Delivery O2 Flow Rate FiO2 05/23/16 11:13 100 35 05/23/16 10:45 35 05/23/16 08:05 99 30 05/23/16 06:00 67 05/23/16 04:00 35 05/23/16 04:00 05/23/16 04:00 68 05/23/16 04:00 99.1 68 18 124/58 100 05/23/16 03:25 99 35 05/23/16 02:00 70 05/23/16 00:00 05/23/16 00:00 98.5 69 18 127/58 100 05/23/16 00:00 69 05/23/16 00:00 35 05/22/16 22:00 67 05/22/16 20:00 35 05/22/16 20:00 05/22/16 20:00 98.5 69 19 132/61 100 05/22/16 20:00 69 05/22/16 19:22 99 35 05/22/16 18:00 71 05/22/16 16:00 98.1 71 20 128/58 98 05/22/16 16:00 05/22/16 16:00 71 05/22/16 16:00 40 05/22/16 15:56 97 35 05/22/16 13:12 99 35 05/22/16 12:00 69 05/22/16 12:00 40 05/22/16 12:00 98.9 69 20 120/56 100 05/22/16 12:00 I/O 05/22/16 05/22/16 05/22/16 05/23/16 05/23/16 05/23/16 07:00 15:00 23:00 07:00 15:00 23:00 Intake Total 1351 ml 2838 ml 1083 ml Output Total 600 ml 1200 ml 550 ml Balance 751 ml 1638 ml 533 ml Intake Oral 0 ml 0 ml IV Total 1251 ml 2738 ml 1083 ml Other 100 ml 100 ml Output Urine Total 600 ml 1200 ml 550 ml Gastric Drainage Total 0 ml 0 ml # Bowel Movements 1 2 0 (Hu Flood MD R2) Result Diagram: 05/23/1641705/23/16417 Objective Remarks GEN: Well-developed, well-nourished patient. No acute distress. Lying in bed. CV: Regular rate without obvious murmurs LUNGS: Clear to auscultation bilaterally. EXT: 1+ edema of legs to upper thigh. 2+ edema of hands. NEURO/PSYCH: Intubated, sedation has been turned off (Hu Flood MD R2) Date of Insertion: May 18, 2016 Line: Central Venous Catheter Side: Right Location: Internal, Jugular (Hu Flood MD R2) A/P Assessment and Plan 65 y/o male with history of DM and osteomyelitis presents with left leg pain as well as GI bleed, diabetes mellitus. Admitted for anemia, JOSE and left knee pain. sdw: Dr. Real dw: Dr. Farley Discharge Planning unclear, pending critical care course (Hu Flood MD R2) Attending Attestation Patient seen and examined. Case reviewed and discussed with the resident team. Agree with plan of care as discussed with me and documented in the resident note. (Chapis Farley MD) Problem List: (1) Acute encephalopathy Status: Acute Plan: Unclear etiology. DDx: delirium, alcohol withdrawal, metabolic encephalopathy, uremia Ammonia level normal -Critical care consulted: appreciate recs -Pt intubated 05/17 due to lethargy and airway protection -Pt to undergo CPAP trial, consider extubation if tolerated -Sedation has been turned off Abx: Rocephin 1 g IV qd (05/19 - ) (2) JOSE (acute kidney injury) Status: Acute Plan: Ddx includes pre-renal (dehydration/hypovolemia) vs renal (ATN). Concern for underlying CKD. Associated with decreased eating and drinking prior to presentation. Baseline Cr is 0.83 from 2 years ago, admission Cr is 5.38. Pre- sedation confusion likely due to uremia. -Renal function stable today. JOSE likely due to hypotension vs IV contrast for arterial embolization for evaluation fo GI bleed. -Strict I/Os Nephrology consulted: appreciate recommendations * IV Diuril BID * Sodium bicarbonate PO Q8hrs * Bumex 2mg IV BID * Renal function stable, defer dialysis * Avoid nephrotoxic agents Imaging: * Renal US: Kidneys unremarkable. Finding suggesting cirrhosis and portal venous HTN with varices and recanalized paraumbilical vein. (3) Anemia Status: Acute Plan: No history of ulcers or blood thinners. Has some recent NSAID use and history of alcohol abuse. DDx: gastric/duodenal ulcer, esophageal varices, diverticulosis, colorectal cancer, polyps, IBD, hemorrhoids.H/H on admission was 6.8/20.6. Admission BUN/Cr ratio 19, suggestive of upper GI bleed. S/p transfusion on 05/19 due to hemoglobin remaining low at 7.4 Echo: EF 45-50%, mild MR, mild TR -Tachycardia and SOB likely due to anemia. CXR unremarkable except for cardiomegaly. -Hemoccult in ED positive. -H&H q6H; Transfuse as needed GI consulted: appreciate recommendations * s/p EGD 05/16 - Large clots in fundus, non-bleeding ulcer in duodenal bulb. Normal esophagus * Repeat EGD 05/18 - duodenal ulcers with visible vessels, cauterized -s/p arteriogram with coli and embolization of right gastric and GDA (05/18 ) * Repeat EGD 05/22 - large duodenal ulcers with no active bleeding * Liver serologies negative Gen surgery consulted-appreciate recs: Do not recommend surgery, operative mortality approaching 100% Medications: * Protonix drip * Hold all anticoagulation (Coumadin, Plavix, Aspirin) (4) Atrial fibrillation Status: Acute Plan: Pt developed Afib with RVR. No history of Afib per patient. Given lopressor, cardizem. S/p cardizem infusion 05/17. Holding chemo ppx due to GI bleed -Amiodarone drip, will transition to PO once pt is extubated and passes swallow evaluation -Continue to monitor tele, heart rate (5) Diabetes mellitus Status: Acute Plan: Hold home metformin and glipizide. A1c of 6.1, could be falsely low due to blood loss anemia. Bedside glucose in the 200s -Low-dose sliding scale -Hold Levemir 10units BID, patient NPO (6) Cirrhosis Status: Acute Plan: Significant alcohol history. Denies alcohol withdrawals. No seizures in past. Cirrhosis seen on Renal US with evident of portal venous HTN with varices. Hepatitis panel negative. -Ammonia WNL -Rally pack -CIWA protocol (7) Asthma Status: Chronic Plan: -Albuterol PRN (8) Knee pain, acute Status: Acute Plan: Likely due to muscle tear and/or Santo cyst rupture contributing to pain and associated edema. -Ortho consulted: Appreciate recommendations. Does not look like septic joint because there is no significant effusion. -S/p antibiotics (Vanc 05/14-; Linezolid 05/15-05/16; Cefepime 05/14-05/16) -Pain control with Tylenol PO/IV to not exceed 3000mg -Would benefit for PT once acute pain and mental status improves. Imaging: * MRI: Prominent edema in the medial calf with prominent fluid signal between the medial gastrocnemius and soleus muscles. DDX is ruptured Santo cyst versus muscle strain. Small joint effusion. No evidence of osteomyelitis. * LE ultrasound: No evidence of DVT. Elongated fluid in the proximal to mid left calf. DDX is muscle tear versus dissecting Santo cyst. 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 * Left knee XR: Negative for fracture or dislocation (9) FEN Status: Acute Plan: Fluids: Holding, diuresing Electrolytes: Within normal limits. Continue to monitor. Nutrition: NPO DVT ppx: SCDs/TEDs, chemoprophylaxis contraindicated due to GI bleed GI ppx: Protonix gtt (Hu Flood MD R2) Problem Qualifiers (1) Anemia: Qualified Code: D64.9 - Anemia, unspecified type (2) Atrial fibrillation: Qualified Code: I48.0 - Paroxysmal atrial fibrillation (3) Diabetes mellitus: Qualified Code: E11.8 - Type 2 diabetes mellitus with complication, without long-term current use of insulin (4) Cirrhosis: Qualified Code: K74.60 - Cirrhosis of liver without ascites, unspecified hepatic cirrhosis type (5) Asthma: Qualified Code: J45.909 - Uncomplicated asthma, unspecified asthma severity (6) Knee pain, acute: Qualified Code: M25.562 - Acute pain of left knee Hu Flood MD R2 May 23, 2016 11:53 Chapis Farley MD May 28, 2016 11:52
[2016-05-23] MEDS: CHLOROTHIAZIDE SOD 500 MG VIAL IV SCH (12:00)
[2016-05-23] MEDS: PROPOFOL 1000 MG/100 ML INJ 100 ML IV SCH ×2 (12:35→18:24)
--- NOTE | 2016-05-23 12:47 | HHI.PR ---
Subjective Subjective Notes Intubated/Sedated Objective Vitals/I&O Vital Signs Date Time Temp Pulse Resp B/P Pulse Ox O2 Delivery O2 Flow Rate FiO2 05/23/16 12:27 100 35 05/23/16 06:00 67 05/23/16 04:00 05/23/16 04:00 99.1 18 Labs Laboratory Tests Test 05/23/16 04:18 White Blood Count 13.5 Red Blood Count 2.91 Hemoglobin 8.3 Hematocrit 25.0 Mean Corpuscular Volume 85.9 Mean Corpuscular Hemoglobin 28.6 Mean Corpuscular Hemoglobin 33.3 Concent Red Cell Distribution Width 17.9 Platelet Count 145 Mean Platelet Volume 7.5 Neutrophils (%) (Auto) 81.9 Lymphocytes (%) (Auto) 5.6 Monocytes (%) (Auto) 5.8 Eosinophils (%) (Auto) 6.2 Basophils (%) (Auto) 0.5 Neutrophils # (Auto) 11.0 Lymphocytes # (Auto) 0.8 Monocytes # (Auto) 0.8 Eosinophils # (Auto) 0.8 Basophils # (Auto) 0.1 CBC Comment DIFF FINAL Differential Comment Sodium Level 145 Potassium Level 4.5 Chloride Level 111 Carbon Dioxide Level 20.8 Anion Gap 13 Blood Urea Nitrogen 126 Creatinine 3.74 Estimat Glomerular Filtration 16 Rate Random Glucose 227 Calcium Level 7.7 Cardiovascular: Regular Lungs: Clear Abdomen: Non-distended, Non-tender Extremities: No edema A/P Assessment and Plan 66 year old male with GI bleed; s/p angio -EGD yesterday shows multiple duodenal ulcers with no active bleeding -Hmg 8.3 today -Continue to follow abdominal exam -Continue non op treatment -[facility] following -No acute GS needs at this time; please call with any questions I CERTIFY AND ATTEST THAT I PERSONALLY EXAMINED THIS PATIENT IN THEIR ROOM. RENAE DOCUMENTED OUR VISIT IN THE EMR AND ENTERED ORDERS UNDER MY DIRECT SUPERVISION. I REVIEWED THE CARE PLAN WITH NURSING STAFF, PATIENT, AND FAMILY IF PRESENT. RITA DIAZ MD [facility] Ale Beverly May 23, 2016 12:47 Rita Diaz MD Jun 13, 2016 08:42
[2016-05-23] MEDS: BUMETANIDE INJ 1 MG/4 ML VIAL IV PUSH SCH ×3 (13:00→20:08)
--- NOTE | 2016-05-23 17:31 | HHI.NPPN ---
Subjective History of Present Illness The aptient is a 65 yo [place] male who presented to this facility on 05/14 with complaints of continued L knee pain. Pt lethargic and not providing me with any information. Family not present. Information obtained from previous medical record. Was seen at [facility] ED on 05/11 with same complaint and was suspected at that point that he had septic arthritis and was prescribed Ibuprofen and Clindamycin. He has a PMHx of osteomyelitis with R great toe amputation in the past. It does not appear that he has any PMHx of CKD, but last labs that I see are from 2014. SCr baseline at that time as 0.8-0.9. Admitting SCr 5.38 at that improved slightly to 5.28 at consult. Interval History Remains intubated and sedated. Family present in room. UOP decreasing. CPAP trials failed Review of Systems General General Remarks Unobtainable today. Objective Data Data 05/22/16 05/23/16 19:00 07:00 Intake Total 1719 ml 2202 ml Output Total 600 ml 1150 ml Balance 1119 ml 1052 ml Intake Oral 0 ml IV Total 1619 ml 2202 ml Other 100 ml Output Urine Total 600 ml 1150 ml Gastric Drainage Total 0 ml # Bowel Movements 1 1 Vital Signs Date Time Temp Pulse Resp B/P Pulse Ox O2 Delivery O2 Flow Rate FiO2 05/23/16 15:05 100 35 05/23/16 12:27 100 35 05/23/16 12:00 35 05/23/16 12:00 98.3 122 18 153/67 100 05/23/16 12:00 120 05/23/16 11:13 100 35 05/23/16 10:45 35 05/23/16 10:00 68 05/23/16 08:05 99 30 05/23/16 08:00 05/23/16 08:00 35 05/23/16 08:00 67 05/23/16 08:00 98.2 67 20 125/58 96 05/23/16 06:00 67 05/23/16 04:00 35 05/23/16 04:00 05/23/16 04:00 68 05/23/16 04:00 99.1 68 18 124/58 100 05/23/16 03:25 99 35 05/23/16 02:00 70 05/23/16 00:00 05/23/16 00:00 98.5 69 18 127/58 100 05/23/16 00:00 69 05/23/16 00:00 35 05/22/16 22:00 67 05/22/16 20:00 35 05/22/16 20:00 05/22/16 20:00 98.5 69 19 132/61 100 05/22/16 20:00 69 05/22/16 19:22 99 35 05/22/16 18:00 71 -: 05/23/16 0418 05/23/16 0418 Medication Review Current Medications Medications (Trade) Dose Ordered Sig/Irene Route Start Time Stop Time Status Last Admin (NS Flush) 2 ml UNSCH PRN IV FLUSH 05/14/16 17:30 (NS Flush) 2 ml BID IV FLUSH 05/14/16 21:00 05/22/16 22:03 (Zofran Inj) 4 mg Q6H PRN IVP 05/14/16 17:30 (Narcan Inj) 0.4 mg UNSCH PRN IV 05/14/16 17:30 (Symbicort 80-4.5 Mcg Inh) 2 puff BID INH 05/14/16 21:00 05/17/16 08:46 (D50w (Vial) Inj) 25 ml UNSCH PRN IV PUSH 05/14/16 17:45 (Glucagon Inj) 1 mg UNSCH PRN OTHER 05/14/16 17:45 (Romazicon Inj) 0.2 mg Q1M PRN IV PUSH 05/14/16 20:00 (Ativan) 1 mg Q4H PRN PO 05/14/16 20:00 (Ativan Inj) 1 mg Q4H PRN IV PUSH 05/14/16 20:00 (Ativan) 2 mg Q2H PRN PO 05/14/16 20:00 (Ativan Inj) 2 mg Q2H PRN IV PUSH 05/14/16 20:00 05/17/16 10:16 (Ativan Inj) 2 mg Q1H PRN IV PUSH 05/14/16 20:00 (Ativan Inj) 2 mg Q15M PRN IV PUSH 05/14/16 20:00 (Sodium Bicarbonate) 650 mg Q8HR PO 05/15/16 14:00 05/23/16 13:43 (Tylenol) 650 mg Q6HR PRN PO 05/15/16 20:00 Thiamine HCl 100 mg 100 mg DAILY PO 05/17/16 09:00 05/23/16 09:07 (Protonix Inj/NS Inj) 100 ml @ 10 mls/hr Q10H IV 05/16/16 16:00 05/23/16 09:04 Miscellaneous Information Patient in critical care unit? Ass... [id number] .XX 05/16/16 21:15 Chlorhexidine Gluconate 15 ml 15 ml BID@08,20 MT 05/17/16 20:00 05/23/16 09:04 Propofol 100 ml @ 0 mls/hr TITRATE IV 05/17/16 16:00 05/23/16 12:35 (fentaNYL DRIP) 250 ml @ 0 mls/hr TITRATE IV 05/17/16 16:00 (NS Flush) DAILY IVF 05/19/16 09:00 05/21/16 09:00 (NS Flush) UNSCH PRN IVF 05/18/16 18:15 05/21/16 22:46 (D50w (Vial) Inj) 25 ml UNSCH PRN IV PUSH 05/19/16 08:45 (Glucagon Inj) 1 mg UNSCH PRN OTHER 05/19/16 08:45 Insulin Human Regular 1 1 Q6H SQ 05/19/16 08:45 05/23/16 02:57 Ceftriaxone Sodium 1000 mg/ Sodium Chloride 100 ml @ 200 mls/hr Q24H IV 05/19/16 09:00 05/23/16 09:03 (Cordarone Inj/ D5W ([place]) Inj) 250 ml @ 0 mls/hr CONTINUOUS IV 05/21/16 00:45 05/23/16 12:35 (Tears Naturale Opth Soln) 1 drop BID EACH EYE 05/21/16 21:00 05/23/16 09:06 (Tears Naturale Opth Soln) 1 drop UNSCH PRN EACH EYE 05/21/16 10:45 Bumetanide 2 mg 2 mg BID@13,18 IV PUSH 05/21/16 13:00 05/23/16 18:00 05/23/16 13:00 (SandoSTATIN INJ/ NS 500 ml Inj) 500.0 ml @ 100 mls/hr Q5H IV 05/21/16 21:58 05/26/16 14:59 05/23/16 13:43 (Diuril Inj) 250 mg Q12H IV 05/22/16 12:00 05/23/16 12:00 (Bumex Inj) 2 mg Q8HR IV PUSH 05/23/16 22:00 UNV Physical Exam General Appearance: No Acute Distress, Comfortable Eyes Eye Exam: Sclera White Pulmonary Resp Exam: Clear Bilaterally, Breath Sounds Equal, No Distress Cardiology CV Exam: Regular, Normal Sinus Rhythm, Good Perfusion Gastrointestinal/Abdomen GI Exam: Soft, Non-Tender Integumentary Skin Exam: Clear, Warm Extremeties Extremities Exam: Moderate Edema (upper and lower extremities), Pitting Edema Extremeties Remarks 2+ pitting BUE & BLE Neurologic Neuro Exam: Sedated Assessment/Plan Discussed Condition With: Patient Problem List: (1) Acute renal failure Plan: Renal indices fairly stable from yesterday. UOP decreased however. Discussed the case with the family. Given his massive fluid overload and decreasing UOP, dialysis may be necessary to improve volume status, especially if we are attempting to wean ventilator support. Will increase Bumex to q8h tonight and leave on Diuril. Re-eval tomorrow. Medications should be adjusted for the patient's renal dysfunction. Avoid nephrotoxic agents such as iodinated contrast and NSAIDs. Avoid gadolinium when eGFR <30 (2) Acidosis Plan: Improved. Monitor (3) Anemia Plan: Endoscopy report reviewed. Apparently evidence of GI bleed with large duodenal ulcer. Serology negative (4) Diabetes mellitus Plan: Mgmt as per primary team (5) Pain of left calf Plan: Potential muscle tear versus strain as per imaging studies. No evidence of DVT (6) Cirrhosis Plan: Suggested by imaging reports. Problem Qualifiers (1) Anemia: Qualified Code: D64.9 - Anemia, unspecified type (2) Diabetes mellitus: Qualified Code: E11.8 - Type 2 diabetes mellitus with complication, without long-term current use of insulin (3) Cirrhosis: Qualified Code: K74.60 - Cirrhosis of liver without ascites, unspecified hepatic cirrhosis type Nini Ahumada May 23, 2016 17:31
[2016-05-23] MEDS: RESP: ALBUTEROL 2.5 MG/3 ML NEB (PRN) NEB (19:20)
[2016-05-24] VITALS (19 sets, daily range): BP systolic 100–135; BP diastolic 49–58; PULSE 57–159; RESP 16–20; TEMP 97.3–98.9; O2SAT 95–100
[2016-05-24] MEDS: PANTOPRAZOLE INJ 80 MG in SODIUM CHLORIDE 0.9% INJ 100 ML IV SCH ×3 (00:36→21:44)
[2016-05-24] MEDS: CHLOROTHIAZIDE SOD 500 MG VIAL IV SCH ×2 (00:36→13:40)
[2016-05-24] MEDS: INSULIN NovoLIN REGULAR SUPPLEMENTAL SCALE SQ SCH ×4 (02:45→20:45)
[2016-05-24] MEDS: OCTREOTIDE INJ 500 MCG in SODIUM CHLORID 0.9% 500 ML INJ 499.5 ML IV SCH ×5 (03:57→23:57)
[2016-05-24] MEDS: PROPOFOL 1000 MG/100 ML INJ 100 ML IV SCH ×4 (03:57→23:33)
[2016-05-24 04:47] LABS: ANION GAP 12 MEQ/L (5-15); BICARBONATE 21.6 MEQ/L (21.0-32.0); BLOOD UREA NITROGEN 122 MG/DL (7-18); CHLORIDE 111 MEQ/L (98-107); POTASSIUM 4.2 MEQ/L (3.5-5.1); SODIUM (NA) 145 MEQ/L (136-145)
[2016-05-24] MEDS: BUMETANIDE INJ 1 MG/4 ML VIAL IV PUSH SCH ×3 (05:53→21:59)
[2016-05-24] MEDS: SODIUM BICARBONATE 650 MG TAB PO SCH ×3 (05:53→22:00)
[2016-05-24] MEDS: ARTIFICIAL TEARS OPTH SOLN 15 ML BTL EACH EYE SCH ×2 (08:44→21:43)
[2016-05-24] MEDS: SODIUM CHLORIDE 0.9% FLUSH 10 ML FLUSH IV FLUSH SCH ×2 (08:45→21:57)
[2016-05-24] MEDS: cefTRIAXone INJ 1,000 MG in SODIUM CHLORIDE 0.9% INJ 100 ML IV SCH (08:45)
[2016-05-24] MEDS: THIAMINE HCL 100 MG TAB PO SCH (08:45)
[2016-05-24] MEDS: SODIUM CHLORIDE 0.9% FLUSH 10 ML FLUSH IVF SCH (08:46)
[2016-05-24] MEDS: CHLORHEXIDINE 0.12% (ORAL KIT) 15 ML CUP MT SCH ×2 (08:46→20:00)
--- NOTE | 2016-05-24 09:26 | HHI.CCPN ---
Subjective Remarks/Hospital Course Patient is a 65-year-old male with past medical history significant for type 2 diabetes, asthma and history of alcohol dependence who presents to the emergency department on 05/14/73 for evaluation of left knee pain. His workup revealed he had a elevated ESR at >140 and CRP at 26.40. Orthopaedics Dr. Bolaños. MRI did not show any evidence of infection. She was also found to be anemic with Hemoccult positive hemoglobin 6.8 and GI was consulted. Patient' s baseline creatinine is not known but he presented with BUN of 103 creatinine 5.39. Since admission patient received a total of 2 units PRBC. He underwent EGD yesterday and there was a lot of clot in the stomach. Evaluation of stomach was impossible due to large amount of blood. Dr. Muse was able to visualize a large duodenal ulcer which was not actively bleeding at that time. According to him he plan to redo the EGD tomorrow 05/18/16. Post EGD patient was transferred to the ICU yesterday evening due to high risk of recurrent bleed , need for possible IR embolization. According to the notes patient has not been recently drinking but was taking Ibuprofen 800mg po TID at home on the pain. Today regarding critical care medicine was consulted for altered mentation and A. fib with RVR. On my evaluation patient with very lethargic hardly wakes up able to state his name but very slurred speech. An ammonia level checked was normal. Patient received last dose of Ativan around 10 AM. My discussion with Dr. Muse he is planning to do endoscopy EGD again tomorrow. Because of questionable airway protection, GCS about 8 and upper GIB and this will also facilitate bedside EGD tomorrow 05/18 Patient is sedated with Diprivan and intubated. On Protonix and bicarb drips. Afebrile. For EGD today. 05/19 Patient s/p EGD yesterday with showed multiple duodenal ulcers with visible vessel s/p EPi injection and cauterization. Late afternoon yesterday became rebled became hypotensive and started on Levophed now 7 mics. He was given 4 units PRBC for Hgb 5.6 underwent arteriogram with coil and embolization of right gastric and GDA. Given additional 1unit PRBC, 2u FFP and 1u PLT overnight. Hgb 7.4 this morning from 10.1 last night. Placed on Amio drip overnight sedated with Diprivan. 05/20 Patient remains intubated and and sedated with Diprivan on Amio drip. Renal function worse today with Cr: 3.43 from 2.86 and UO: 475 ml in 24 hrs. Hgb 7.7 this morning s/p transfusion 2units PRBC yesterday. 05/21 Patient remains sedated with Diprivan and intubated. Tolerated CPAP for all day yesterday. Bleeding scan was positive for GI bleed in small bowel ( proximal Duodenum) Received total 3 units PRBC since yesterday and 1unit PLT. Hgb 9.2 this morning. Renal function is worse with Cr: 3.81 from 3.43 with UO:700ml in 24hrs. Patient went into Afib with RVR and placed on Amio drip. 05/22 Patient remains sedated with Diprivan and intubated. For repeat EGD today. On Sandostatin, Protonix and Amio drips. H/H stable. Renal function similar to yesterday with Cr: 3.80 however his UO is overall better- 2L in 24 hrs. 05/23: Drowsy off sedation, remains orally intubated on mechanical ventilation. 05/24: Currently on sedation vacation. Remains orally intubated on mechanical ventilation. Not arousable. No acute events overnight. Cr remains elevated to 3.88; adequate UOP 2300 cc over past 24 hours. Objective Vital Signs Date Time Temp Pulse Resp B/P Pulse Ox O2 Delivery O2 Flow Rate FiO2 05/24/16 07:46 97 30 05/24/16 06:00 64 05/24/16 04:00 98.7 16 124/57 Intake and Output 05/23/16 05/23/16 05/24/16 08:00 16:00 00:00 Intake Total 1083 ml 1238 ml 1051 ml Output Total 550 ml 450 ml 700 ml Balance 533 ml 788 ml 351 ml Result Diagram: 05/23/16 0418 05/24/16 0407 Imaging Last Impressions GI Bleed Scan Nuclear Medicine 05/20/16 0000 Signed Impressions: Service Date/Time: Friday, May 20, 2016 14:25 - CONCLUSION: 1. Positive for gastrointestinal bleed in small bowel, probably at the proximal duodenum. Randy Byrne MD Chest X-Ray 05/18/16 180 Signed Impressions: Service Date/Time: Wednesday, May 18, 2016 18:12 - CONCLUSION: 1. Right internal jugular central line has its tip in good position in the superior vena cava. There is no pneumothorax. 2. No acute cardiopulmonary disease. Lam Tavarez MD Central Venous Line 05/18/16 Signed Impressions: Service Date/Time: Wednesday, May 18, 2016 00:00 - CONCLUSION: Uncomplicated line placement as above. Wilver Mendoza MD Celiac/Hepatic Arteriogram 05/18/16 Signed Impressions: Service Date/Time: Wednesday, May 18, 2016 16:21 - CONCLUSION: 1. Active bleeding identified off the GDA in the expected location of the duodenum. 2. Successful coil and Gelfoam embolization of the right gastric and GDA as detailed above. Wilver Mendoza MD Renal Ultrasound 05/15/16 Signed Impressions: Service Date/Time: Sunday, May 15, 2016 10:50 - CONCLUSION: 1. Kidneys within normal limits. 2. Findings suggesting cirrhosis and portal venous hypertension with varices and recanalized paraumbilical vein. Get Franco MD Lower Extremity Ultrasound 05/15/16 0000 Signed Impressions: Service Date/Time: Sunday, May 15, 2016 08:41 - CONCLUSION: 1. No evidence of lower extremity DVT on the right or left. 2. Elongated fluid in the proximal to mid left calf. The rectal diagnosis is muscle tear versus dissecting Santo cyst. 3. 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 Get Franco MD Knee MRI 05/15/16 Signed Impressions: Service Date/Time: Sunday, May 15, 2016 16:51 - CONCLUSION: 1. Prominent edema in the medial calf with prominent fluid signal between the medial gastrocnemius and soleus muscles. Differential diagnosis is ruptured Santo cyst versus muscle strain. No fluid-filled gap in muscle fibers is seen. There is also adjacent superficial soft tissue edema in this region. 2. Small horizontal tear of the body of the medial meniscus. 3. Small joint effusion. 4. Mild reactive bony edema in the patella. 5. No evidence of osteomyelitis. 6. Moderate focal medial facet patellar chondromalacia. Get Franco MD Knee X-Ray 3/27/17 0000 Signed Impressions: Service Date/Time: Saturday, May 14, 2016 15:44 - CONCLUSION: Negative for fracture or dislocation. Follow up in 7-10 days is suggested if symptoms persist. Alexy Padron MD FACR Objective Remarks GENERAL: Patient is 66 yo intubated and sedated, SKIN: Warm and dry. HEAD: Normocephalic. EYES: No scleral icterus. No injection or drainage. NECK: Supple, trachea midline. No JVD or lymphadenopathy. CARDIOVASCULAR: Regular rate and rhythm without murmurs, gallops, or rubs. RESPIRATORY: Breath sounds equal bilaterally. No accessory muscle use. GASTROINTESTINAL: Abdomen soft, non-tender, nondistended. MUSCULOSKELETAL: No cyanosis, or edema. Neuro; Sedated and intubated. Urinary Catheter: Yes Assessment to: Continue Donaldson insert reason: Measure Accurate Output Date of Insertion: May 18, 2016 Line: Central Venous Catheter Side: Right Location: Internal, Jugular A/P Assessment and Plan NEURO: Acute encephalopathy Alcohol dependence -On Diprivan infusion for sedation. Daily sedation vacation -Discontinue Ativan, supplement thiamine and multivitamin -Avoid any sedatives and long-acting narcotics -If patient displays symptoms of alcohol withdrawal consider Haldol/Ativan/ Precedex RESP: Respiratory insufficiency History of asthma -Continue with vent support keep sat >92% -DuoNeb every 6 hours and when necessary, ventilator bundle -SBT trials, if tolerated will extubate today CV: Atrial fibrillation with rapid ventricular response -Monitor HR and BP keep MAP>65mmHg. -Converted to sinus rhythm currently -Amiodarone transitioned to PO. GI clears for by mouth intake. -Echo 05/17: EF 45-50%, no RWMA GI/HEME: Upper GI bleed/large duodenal ulcer Severe anemia requiring transfusion Liver cirrhosis -s/p Arteriogram with coli and embolization of right gastric and GDA 05/18 Bleeding scan positive for GI bleed in small bowel probably in proximal Jejunum 05/20 -IV Protonix and Sandostatin drips, s/p EGD 05/22: multiple duodenal ulcers, no active bleeding -Consider transitioning Protonix drip to BID following discussion with GI -On Sandostatin drip, to be discontinued if GI approves -Monitor CBC Keep Hgb >8 -Surgery is following- Dr. Novak- patient is high risk for surgery. -s/p repeat EGD 05/18 which showed duodenal ulcers with visible vessels s/p Epi injection and cauterization -EGD 05/16/16 shows large duodenal ulcer. Unable to visualize most of stomach and duodenum due to large amount of clot present -s/p transfusion 2units PRBC 05/19 -Continue tube feeds with Nepro at 30 cc/hr -Received 16 units PRBC since admission, 2u FFP, 2u PLT : Acute kidney failure -Monitor renal function, I/O's, avoid nephrotoxins. - Cr: 3.88 on 05/24 -Might need HD -On PO bicarb 650mg Q8, on Bumex 2mg IV q8h -Nephrology Dr. Johnson is following ID: -Continue empiric abx (Rocephin started on 05/19; will complete a 7-day course and consider discontinuing). Monitor for signs of infection (Fever, WBC) culture if spikes fever. 05/14 BC: No growth 05/14 sputum cx: No growth 05/14, 05/17 urine cx: No growth ENDO: -SSI (low scale) for glycemic control PROPH: -Bilateral lower extremity SCDs. Chemical DVT prophylaxis contraindicated. Consider switching Protonix infusion to BID dosing, defer to GI LINES: -Utilize peripheral IVs, Right IJ CVP placed 05/18 Addendum: Patient seen and examined earlier. Discussed findings, assessment and plan with Dr. Lawrence as outlined above. Agree with above note. Pablo Lawrence MD R1 May 24, 2016 09:25 Austin Alvarez MD May 24, 2016 13:18
[2016-05-24] MEDS: AMIODARONE 200 MG TAB PO SCH ×2 (13:10→23:56)
--- NOTE | 2016-05-24 13:34 | HHI.GIFU ---
Subjective Remarks Pt sedated on vent. Nurse reports some bloody oral secretions- small amount when she suctions patient, but tolerating TF and not having any hematochezia. (Sumi Sweeney) Objective Vitals I&O Vital Signs Date Time Temp Pulse Resp B/P Pulse Ox O2 Delivery O2 Flow Rate FiO2 05/24/16 12:00 57 05/24/16 12:00 30 05/24/16 11:17 100 30 05/24/16 11:07 99 30 05/24/16 10:00 61 05/24/16 08:00 97.3 159 16 125/53 97 05/24/16 08:00 159 05/24/16 08:00 30 05/24/16 07:46 97 30 05/24/16 06:00 64 05/24/16 04:00 66 05/24/16 04:00 30 05/24/16 04:00 98.7 66 16 124/57 100 05/24/16 03:24 100 30 05/24/16 02:00 67 05/24/16 01:06 100 30 05/24/16 00:00 30 05/24/16 00:00 98.3 65 20 135/58 100 05/24/16 00:00 65 05/23/16 22:00 87 05/23/16 21:55 100 30 05/23/16 20:00 98.3 65 18 118/56 99 05/23/16 20:00 30 05/23/16 20:00 65 05/23/16 19:17 98 30 05/23/16 18:00 94 05/23/16 16:00 35 05/23/16 16:00 99.1 94 16 120/78 98 05/23/16 16:00 108 05/23/16 15:05 100 35 I/O 05/23/16 05/23/16 05/23/16 05/24/16 05/24/16 05/24/16 07:00 15:00 23:00 07:00 15:00 23:00 Intake Total 1083 ml 1238 ml 1051 ml 1488 ml Output Total 550 ml 450 ml 700 ml 1150 ml Balance 533 ml 788 ml 351 ml 338 ml IV Total 1083 ml 1118 ml 932 ml 1233 ml Tube Feeding 119 ml 255 ml Other 120 ml Output Urine Total 550 ml 450 ml 700 ml 1150 ml # Bowel Movements 0 1 0 0 Laboratory Laboratory Tests Test 05/24/16 04:07 Sodium Level 145 Potassium Level 4.2 Chloride Level 111 Carbon Dioxide Level 21.6 Anion Gap 12 Blood Urea Nitrogen 122 Creatinine 3.88 Random Glucose 276 Calcium Level 7.8 Phosphorus Level 8.4 Albumin 1.3 Imaging Last Impressions Chest X-Ray 05/23/16 0000 Signed Impressions: Service Date/Time: Monday, May 23, 2016 03:26 - CONCLUSION: Tiny bilateral pleural effusions and bibasilar infiltrates. Carroll Joel Jr., MD GI Bleed Scan Nuclear Medicine 05/20/16 0000 Signed Impressions: Service Date/Time: Friday, May 20, 2016 14:25 - CONCLUSION: 1. Positive for gastrointestinal bleed in small bowel, probably at the proximal duodenum. Randy Byrne MD Central Venous Line 05/18/16 0000 Signed Impressions: Service Date/Time: Wednesday, May 18, 2016 00:00 - CONCLUSION: Uncomplicated line placement as above. Wilver Mendoza MD Celiac/Hepatic Arteriogram 05/18/16 0000 Signed Impressions: Service Date/Time: Wednesday, May 18, 2016 16:21 - CONCLUSION: 1. Active bleeding identified off the GDA in the expected location of the duodenum. 2. Successful coil and Gelfoam embolization of the right gastric and GDA as detailed above. Wilver Mendoza MD Renal Ultrasound 05/15/16 0000 Signed Impressions: Service Date/Time: Sunday, May 15, 2016 10:50 - CONCLUSION: 1. Kidneys within normal limits. 2. Findings suggesting cirrhosis and portal venous hypertension with varices and recanalized paraumbilical vein. Get Franco MD Lower Extremity Ultrasound 05/15/16 0000 Signed Impressions: Service Date/Time: Sunday, May 15, 2016 08:41 - CONCLUSION: 1. No evidence of lower extremity DVT on the right or left. 2. Elongated fluid in the proximal to mid left calf. The rectal diagnosis is muscle tear versus dissecting Santo cyst. 3. 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 Get Franco MD Knee MRI 05/15/16 0000 Signed Impressions: Service Date/Time: Sunday, May 15, 2016 16:51 - CONCLUSION: 1. Prominent edema in the medial calf with prominent fluid signal between the medial gastrocnemius and soleus muscles. Differential diagnosis is ruptured Santo cyst versus muscle strain. No fluid-filled gap in muscle fibers is seen. There is also adjacent superficial soft tissue edema in this region. 2. Small horizontal tear of the body of the medial meniscus. 3. Small joint effusion. 4. Mild reactive bony edema in the patella. 5. No evidence of osteomyelitis. 6. Moderate focal medial facet patellar chondromalacia. Get Franco MD Knee X-Ray 05/14/16 0000 Signed Impressions: Service Date/Time: Saturday, May 14, 2016 15:44 - CONCLUSION: Negative for fracture or dislocation. Follow up in 7-10 days is suggested if symptoms persist. Alexy Padron MD FACR Physical Exam HEENT: Normocephalic; atraumatic; no jaundice CHEST: Resp. even/shallow. OETT CARDIAC: Irregular. ABDOMEN: Soft, nondistended, no hepatosplenomegaly; bowel sounds are present in all four quadrants. NGT with TF EXTREMITIES: Generalized edema. SKIN: Generalized pallor MANAGER REPORT: Sedated on vent. (Sumi Sweeney) Assessment and Plan Plan ASSESSMEN:T - GIB, Melanotic stool. and recent Ibuprofen use. On admission, he was noted to have HH 6.8/20.6. S/P EGD (05/16/16)----> 1. The esophagus appeared normal 2. Large clots in the fundus that obscured this portion of the stomach the rest of the stomach was unremarkable 3. I was only able to advance the scope into the duodenal bulb I was not able to make the sweep into the second portion of the duodenum due to a large clot that obscured vision and there was a large ulcer in the duodenal bulb 4. Large non-bleeding ulcer was found in the duodenal bulb 5. Normal endoscopy otherwise 6. Retroflexed views revealed large clots the obscured vision of the fundus. Rpt EGD (05/18/16)----> 1. Normal endoscopy otherwise 2. Multiple large ulcers were found in the duodenal bulb and 2nd part duodenum; cautery was applied to the sites for 5 secs; with complete hemostasis achieved; Submucosal injection of 10ml of epinephrine 1:10,000 was performed around the bleeding site 3. Retroflexed views revealed no abnormalities. Continued to have bleeding and therefore went to IR (4/1/17)----> active bleed from GDA, s/p coil and gelfoam embolization. S/P GS evaluation- no plans for surgical intervention. Rpt EGD (05/22/16)---> duodenitis, large duodenal ulcer- but no active bleed. Pt is not currently having any active bleeding at this time. Did pass some blood yesterday. Will continue Protonix Gtt and Octreotide Gtt for an additional 24 hours- no obvious active bleeding, but HH did go from 9.5 to 8.3. Will reassess on Saturday. - Anemia, acute blood loss. S/P 16 units PRBC, 2 units FFP, 1plt. 8.3/25.0. - Multiple large duodenal bulb and duodenal ulcers. S/P endoscopic tx, embolization. - Elevated LFT. He has a hx of heavy alcohol use. Hepatitis negative, KRYSTLE negative, AMSA negative, AMA neg, AFP 1.6, Ceruloplasmin 35, Alpha 1 Antitrypsin 365. Ferritin 582, Iron Saturation 60.5. - JOSE. Creat 3.88. Renal following. - Left knee pain with elevated ESR at >140 and CRP at 26.40. Orthopaedics are following and the workup is in progress. - Metabolic encephalopathy. Will check ammonia, but this may also be related to his acute renal failure. PLAN: - TF as tolerated - Cont. Protonix Gtt today - Cont. Octreotide Gtt today - Monitor HH - Transfuse as necessary - Supportive care - Ideally, should continue protonix and octreotide gtt until pt has not had signs of bleeding x 24 hours - Pt seen and examined by Dr. Mejía and myself and this note is written on his behalf (Sumi Sweeney) Physician Comments Seen and examined, agree with above, no active bleeding reported. On octreotide and protonix drips. Can dc octreotide tomorrow. TF as tolerated. (Rosaura Mejía MD) Sumi Sweeney May 24, 2016 13:34 Rosaura Mejía MD May 24, 2016 19:19
[2016-05-24 13:47] LABS: BASOPHIL % 0.4 % (0.0-2.0); EOSINOPHIL # 0.7 TH/MM3 (0-0.4); EOSINOPHIL % 7.9 % (0.0-4.0); HEMATOCRIT 23.7 % (39.0-51.0); HEMO FLAGS DIFF FINAL; LYMPH % 6.6 % (9.0-44.0); LYMPHOCYTE # 0.6 TH/MM3 (1.0-4.8); MEAN CELL VOLUME 87.8 FL (80.0-100.0); MEAN CORPUSCULAR HEMOGLOBIN 29.3 PG (27.0-34.0); MEAN CORPUSCULAR HGB CONC 33.4 % (32.0-36.0); MONO % 6.5 % (0.0-8.0); NEUT % 78.6 % (16.0-70.0); PLATELET COUNT 112 TH/MM3 (150-450); RED CELL DISTRIBUTION WIDTH 18.5 % (11.6-17.2); WHITE BLOOD COUNT 8.9 TH/MM3 (4.0-11.0)
[2016-05-24 14:12] LABS: ALT (GPT) 65 U/L (12-78); ANION GAP 10 MEQ/L (5-15); AST (GOT) 54 U/L (15-37); BLOOD UREA NITROGEN 123 MG/DL (7-18); CHLORIDE 112 MEQ/L (98-107); GLOMERULAR FILTRATION RATE 15 ML/MIN (>89); SODIUM (NA) 145 MEQ/L (136-145)
[2016-05-24 14:14] LABS: ALKALINE PHOSPHATASE 131 U/L (45-117); TOTAL BILIRUBIN ADULT 0.7 MG/DL (0.2-1.0)
--- NOTE | 2016-05-24 15:39 | HHI.FPPN ---
Subjective Remarks Patient seen and examined this morning by medical team. No acute events overnight with vital signs stable. Patient unable to tolerate extubation due to sedation yesterday. He remains intubated and is unarousable. Creatinine remains elevated to 3.88 with a BUN of 123 despite adequate urine output. Medical team to attempt to contact POA to discuss goals of care and patient's current prognosis. (Oswaldo Real MD R1) Objective Vitals Vital Signs Date Time Temp Pulse Resp B/P Pulse Ox O2 Delivery O2 Flow Rate FiO2 05/24/16 14:36 96 30 05/24/16 12:00 57 05/24/16 12:00 30 05/24/16 11:17 100 30 05/24/16 11:07 99 30 05/24/16 10:00 61 05/24/16 08:00 97.3 159 16 125/53 97 05/24/16 08:00 159 05/24/16 08:00 30 05/24/16 07:46 97 30 05/24/16 06:00 64 05/24/16 04:00 66 05/24/16 04:00 30 05/24/16 04:00 98.7 66 16 124/57 100 05/24/16 03:24 100 30 05/24/16 02:00 67 05/24/16 01:06 100 30 05/24/16 00:00 30 05/24/16 00:00 98.3 65 20 135/58 100 05/24/16 00:00 65 05/23/16 22:00 87 05/23/16 21:55 100 30 05/23/16 20:00 98.3 65 18 118/56 99 05/23/16 20:00 30 05/23/16 20:00 65 05/23/16 19:17 98 30 05/23/16 18:00 94 05/23/16 16:00 35 05/23/16 16:00 99.1 94 16 120/78 98 05/23/16 16:00 108 I/O 05/23/16 05/23/16 05/23/16 05/24/16 05/24/16 05/24/16 07:00 15:00 23:00 07:00 15:00 23:00 Intake Total 1083 ml 1238 ml 1051 ml 1488 ml Output Total 550 ml 450 ml 700 ml 1150 ml Balance 533 ml 788 ml 351 ml 338 ml IV Total 1083 ml 1118 ml 932 ml 1233 ml Tube Feeding 119 ml 255 ml Other 120 ml Output Urine Total 550 ml 450 ml 700 ml 1150 ml # Bowel Movements 0 1 0 0 (Oswaldo Real MD R1) Result Diagram: 05/24/16 1325 05/24/16 1325 Objective Remarks GEN: Well-developed, well-nourished patient 66-year-old male lying in bed intubated and sedated. CV: Regular rate and rhythm without obvious murmurs LUNGS: Clear to anterior auscultation bilaterally. Audible upper airway sounds. EXT: Continued 1+ edema of legs to upper thigh and 2+ edema of hands. NEURO/PSYCH: Intubated. (Oswaldo Real MD R1) Date of Insertion: May 18, 2016 Line: Central Venous Catheter Side: Right Location: Internal, Jugular (Oswaldo Real MD R1) A/P Assessment and Plan 65 y/o male with history of DM and osteomyelitis presents with left leg pain as well as GI bleed, diabetes mellitus. Admitted for anemia, JOSE and left knee pain. sdw: Dr. Jose Flood dw: Dr. Farley Discharge Planning Unclear, pending critical care course (Oswaldo Real MD R1) Attending Attestation Patient seen and examined. Case reviewed and discussed with the resident team. Agree with plan of care as discussed with me and documented in the resident note. a high BUN can also be partially from GI bleed (Chapis Farley MD) Problem List: (1) Acute encephalopathy Status: Acute Plan: Unclear etiology. DDx: delirium, alcohol withdrawal, metabolic encephalopathy, uremia Ammonia level normal -Critical care consulted: appreciate recs -Pt intubated 05/17 due to lethargy and airway protection -Pt underwent CPAP trial , however was not extubated due to decreased arousability. Abx: Rocephin 1 g IV qd (05/19 - ) (2) JOSE (acute kidney injury) Status: Acute Plan: Ddx includes pre-renal (dehydration/hypovolemia) vs renal (ATN). Concern for underlying CKD. Associated with decreased eating and drinking prior to presentation. Baseline Cr is 0.83 from 2 years ago, admission Cr is 5.38. Pre- sedation confusion likely due to uremia. -Renal function stable today. JOSE likely due to hypotension vs IV contrast for arterial embolization for evaluation fo GI bleed. -Strict I/Os Nephrology consulted: appreciate recommendations * IV Diuril BID * Sodium bicarbonate PO Q8hrs * Bumex 2mg IV BID * Renal function stable however BUN and creatinine remains elevated; Discussing dialysis with family * Avoid nephrotoxic agents Imaging: * Renal US: Kidneys unremarkable. Finding suggesting cirrhosis and portal venous HTN with varices and recanalized paraumbilical vein. (3) Anemia Status: Acute Plan: No history of ulcers or blood thinners. Has some recent NSAID use and history of alcohol abuse. DDx: gastric/duodenal ulcer, esophageal varices, diverticulosis, colorectal cancer, polyps, IBD, hemorrhoids.H/H on admission was 6.8/20.6. Admission BUN/Cr ratio 19, suggestive of upper GI bleed. S/p transfusion on 05/19 due to hemoglobin remaining low at 7.4 Echo: EF 45-50%, mild MR, mild TR -Tachycardia and SOB likely due to anemia. CXR unremarkable except for cardiomegaly. -Hemoccult in ED positive. -H&H monitored; Transfuse as needed GI consulted: appreciate recommendations * s/p EGD 05/16 - Large clots in fundus, non-bleeding ulcer in duodenal bulb. Normal esophagus * Repeat EGD 05/18 - duodenal ulcers with visible vessels, cauterized -s/p arteriogram with coli and embolization of right gastric and GDA (05/18 ) * Repeat EGD 05/22 - large duodenal ulcers with no active bleeding * Liver serologies negative * Continue Protonix and octreotide until patient has had no signs of bleeding for 24 hours Gen surgery consulted-appreciate recs: Do not recommend surgery, operative mortality approaching 100% Medications: * Protonix drip * Octreotide * Hold all anticoagulation (Coumadin, Plavix, Aspirin) (4) Atrial fibrillation Status: Acute Plan: Pt developed Afib with RVR. No history of Afib per patient. Given lopressor, cardizem. S/p cardizem infusion 05/17. Holding chemo ppx due to GI bleed -Amiodarone drip, will transition to PO once pt is extubated and passes swallow evaluation -Continue to monitor tele, heart rate (5) Diabetes mellitus Status: Acute Plan: Hold home metformin and glipizide. A1c of 6.1, could be falsely low due to blood loss anemia. Bedside glucose in the 200s -Low-dose sliding scale -Hold Levemir 10units BID, patient NPO (6) Cirrhosis Status: Acute Plan: Significant alcohol history. Denies alcohol withdrawals. No seizures in past. Cirrhosis seen on Renal US with evident of portal venous HTN with varices. Hepatitis panel negative. -Ammonia WNL -Rally pack -CIWA protocol (7) Asthma Status: Chronic Plan: -Albuterol PRN (8) Knee pain, acute Status: Acute Plan: Likely due to muscle tear and/or Santo cyst rupture contributing to pain and associated edema. -Ortho consulted: Appreciate recommendations. Does not look like septic joint because there is no significant effusion. -S/p antibiotics (Vanc 05/14-; Linezolid 05/15-05/16; Cefepime 05/14-05/16) ( Rocephin 05/19- ) -Pain control with Tylenol PO/IV to not exceed 3000mg -Would benefit for PT once acute pain and mental status improves. Imaging: * MRI: Prominent edema in the medial calf with prominent fluid signal between the medial gastrocnemius and soleus muscles. DDX is ruptured Santo cyst versus muscle strain. Small joint effusion. No evidence of osteomyelitis. * LE ultrasound: No evidence of DVT. Elongated fluid in the proximal to mid left calf. DDX is muscle tear versus dissecting Santo cyst. 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 * Left knee XR: Negative for fracture or dislocation (9) FEN Status: Acute Plan: Fluids: Holding, diuresing Electrolytes: Within normal limits. Continue to monitor. Nutrition: NPO DVT ppx: SCDs/TEDs, chemoprophylaxis contraindicated due to GI bleed GI ppx: Protonix gtt (Oswaldo Real MD R1) Problem Qualifiers (1) Anemia: Qualified Code: D64.9 - Anemia, unspecified type (2) Atrial fibrillation: Qualified Code: I48.0 - Paroxysmal atrial fibrillation (3) Diabetes mellitus: Qualified Code: E11.8 - Type 2 diabetes mellitus with complication, without long-term current use of insulin (4) Cirrhosis: Qualified Code: K74.60 - Cirrhosis of liver without ascites, unspecified hepatic cirrhosis type (5) Asthma: Qualified Code: J45.909 - Uncomplicated asthma, unspecified asthma severity (6) Knee pain, acute: Qualified Code: M25.562 - Acute pain of left knee Oswaldo Real MD R1 May 24, 2016 15:38 Chapis Farley MD May 28, 2016 11:53
--- NOTE | 2016-05-24 17:03 | HHI.NPPN ---
Subjective History of Present Illness The aptient is a 65 yo [place] male who presented to this facility on 05/14 with complaints of continued L knee pain. Pt lethargic and not providing me with any information. Family not present. Information obtained from previous medical record. Was seen at [facility] ED on 05/11 with same complaint and was suspected at that point that he had septic arthritis and was prescribed Ibuprofen and Clindamycin. He has a PMHx of osteomyelitis with R great toe amputation in the past. It does not appear that he has any PMHx of CKD, but last labs that I see are from 2014. SCr baseline at that time as 0.8-0.9. Admitting SCr 5.38 at that improved slightly to 5.28 at consult. Interval History Patient remains intubated. Review of Systems General General Remarks Unobtainable today. Objective Data Data 05/23/16 05/24/16 19:00 07:00 Intake Total 1238 ml 2539 ml Output Total 450 ml 1850 ml Balance 788 ml 689 ml IV Total 1118 ml 2165 ml Tube Feeding 374 ml Other 120 ml Output Urine Total 450 ml 1850 ml # Bowel Movements 1 0 Vital Signs Date Time Temp Pulse Resp B/P Pulse Ox O2 Delivery O2 Flow Rate FiO2 05/24/16 14:36 96 30 05/24/16 14:00 63 05/24/16 12:00 57 05/24/16 12:00 30 05/24/16 12:00 97.8 57 18 100/49 99 05/24/16 11:17 100 30 05/24/16 11:07 99 30 05/24/16 10:00 61 05/24/16 08:00 97.3 159 16 125/53 97 05/24/16 08:00 159 05/24/16 08:00 30 05/24/16 07:46 97 30 05/24/16 06:00 64 05/24/16 04:00 66 05/24/16 04:00 30 05/24/16 04:00 98.7 66 16 124/57 100 05/24/16 03:24 100 30 05/24/16 02:00 67 05/24/16 01:06 100 30 05/24/16 00:00 30 05/24/16 00:00 98.3 65 20 135/58 100 05/24/16 00:00 65 05/23/16 22:00 87 05/23/16 21:55 100 30 05/23/16 20:00 98.3 65 18 118/56 99 05/23/16 20:00 30 05/23/16 20:00 65 05/23/16 19:17 98 30 05/23/16 18:00 94 -: 05/24/16 1325 05/24/16 1325 Physical Exam General Appearance: No Acute Distress, Comfortable Eyes Eye Exam: Sclera White Pulmonary Resp Exam: Clear Bilaterally, Breath Sounds Equal, No Distress Cardiology CV Exam: Regular, Normal Sinus Rhythm, Good Perfusion Gastrointestinal/Abdomen GI Exam: Soft, Non-Tender Integumentary Skin Exam: Clear, Warm Extremeties Extremities Exam: Moderate Edema (upper and lower extremities), Pitting Edema Neurologic Neuro Exam: Sedated Assessment/Plan Discussed Condition With: Patient Problem List: (1) Acute renal failure Plan: Renal indices relatively stable from yesterday however patient has severe renal insufficiency. Urine output slightly improved with high-dose diuretics i.e. bumetanide and Diuril. Still has significant fluid retention however. Reevaluate renal indices and volume status tomorrow. Dialysis may still be consideration as discussed with the patient's brother yesterday and today with his niece. . Medications should be adjusted for the patient's renal dysfunction. Avoid nephrotoxic agents such as iodinated contrast and NSAIDs. Avoid gadolinium when eGFR <30 (2) Acidosis Plan: Improved. Monitor (3) Anemia Plan: Endoscopy report reviewed. Apparently evidence of GI bleed with large duodenal ulcer. Serology negative (4) Diabetes mellitus Plan: Mgmt as per primary team (5) Pain of left calf Plan: Potential muscle tear versus strain as per imaging studies. No evidence of DVT (6) Cirrhosis Plan: Suggested by imaging reports. Problem Qualifiers (1) Anemia: Qualified Code: D64.9 - Anemia, unspecified type (2) Diabetes mellitus: Qualified Code: E11.8 - Type 2 diabetes mellitus with complication, without long-term current use of insulin (3) Cirrhosis: Qualified Code: K74.60 - Cirrhosis of liver without ascites, unspecified hepatic cirrhosis type Vero Johnson MD May 24, 2016 17:02
[2016-05-24] MEDS ORDERED: AMIODARONE 200 MG TAB PO SCH (21:00)
[2016-05-24] MEDS: BUDESONIDE-FORMOTEROL 80/4.5 MCG INHALER INH SCH (21:00)
[2016-05-25] VITALS (19 sets, daily range): BP systolic 121–157; BP diastolic 57–68; PULSE 68–75; RESP 20–26; TEMP 98.2–99.3; O2SAT 94–100
[2016-05-25] MEDS: INSULIN NovoLIN REGULAR SUPPLEMENTAL SCALE SQ SCH ×4 (02:45→20:00)
[2016-05-25 05:11] LABS: AUTOMATED NEUTROPHIL # 5.9 TH/MM3 (1.8-7.7); BASOPHIL % 0.6 % (0.0-2.0); EOSINOPHIL # 0.6 TH/MM3 (0-0.4); EOSINOPHIL % 7.3 % (0.0-4.0); HEMATOCRIT 23.9 % (39.0-51.0); LYMPH % 7.2 % (9.0-44.0); LYMPHOCYTE # 0.5 TH/MM3 (1.0-4.8); MEAN CELL VOLUME 87.4 FL (80.0-100.0); MEAN CORPUSCULAR HEMOGLOBIN 29.4 PG (27.0-34.0); MEAN CORPUSCULAR HGB CONC 33.6 % (32.0-36.0); MONO % 6.8 % (0.0-8.0); NEUT % 78.1 % (16.0-70.0); PLATELET COUNT 96 TH/MM3 (150-450); RED BLOOD COUNT 2.74 MIL/MM3 (4.50-5.90); RED CELL DISTRIBUTION WIDTH 18.4 % (11.6-17.2); WHITE BLOOD COUNT 7.5 TH/MM3 (4.0-11.0)
[2016-05-25 05:23] LABS: HEMO FLAGS AUTO DIFF
[2016-05-25 05:40] LABS: ALKALINE PHOSPHATASE 142 U/L (45-117); ALT (GPT) 59 U/L (12-78); ANION GAP 15 MEQ/L (5-15); AST (GOT) 45 U/L (15-37); BICARBONATE 21.5 MEQ/L (21.0-32.0); BLOOD UREA NITROGEN 120 MG/DL (7-18); CHLORIDE 112 MEQ/L (98-107); GLOMERULAR FILTRATION RATE 16 ML/MIN (>89); POTASSIUM 3.5 MEQ/L (3.5-5.1); SODIUM (NA) 148 MEQ/L (136-145); TOTAL BILIRUBIN ADULT 0.7 MG/DL (0.2-1.0)
[2016-05-25] MEDS: OCTREOTIDE INJ 500 MCG in SODIUM CHLORID 0.9% 500 ML INJ 499.5 ML IV SCH ×2 (05:58→11:47)
[2016-05-25] MEDS: SODIUM BICARBONATE 650 MG TAB PO SCH ×3 (06:01→22:01)
[2016-05-25] MEDS: BUMETANIDE INJ 1 MG/4 ML VIAL IV PUSH SCH ×3 (06:01→22:01)
[2016-05-25] MEDS: PANTOPRAZOLE INJ 80 MG in SODIUM CHLORIDE 0.9% INJ 100 ML IV SCH ×2 (06:02→17:44)
[2016-05-25 06:52] LABS: PLATELET ESTIMATE SMEAR LOW (NORMAL); PLATELET MORPHOLOGY NORMAL (NORMAL); SCAN/DIFF AUTO DIFF CONFIRMED
--- NOTE | 2016-05-25 08:43 | HHI.CCPN ---
Subjective Remarks/Hospital Course Patient is a 65-year-old male with past medical history significant for type 2 diabetes, asthma and history of alcohol dependence who presents to the emergency department on 05/14/73 for evaluation of left knee pain. His workup revealed he had a elevated ESR at >140 and CRP at 26.40. Orthopaedics Dr. Bolaños. MRI did not show any evidence of infection. She was also found to be anemic with Hemoccult positive hemoglobin 6.8 and GI was consulted. Patient' s baseline creatinine is not known but he presented with BUN of 103 creatinine 5.39. Since admission patient received a total of 2 units PRBC. He underwent EGD yesterday and there was a lot of clot in the stomach. Evaluation of stomach was impossible due to large amount of blood. Dr. Muse was able to visualize a large duodenal ulcer which was not actively bleeding at that time. According to him he plan to redo the EGD tomorrow 05/18/16. Post EGD patient was transferred to the ICU yesterday evening due to high risk of recurrent bleed , need for possible IR embolization. According to the notes patient has not been recently drinking but was taking Ibuprofen 800mg po TID at home on the pain. Today regarding critical care medicine was consulted for altered mentation and A. fib with RVR. On my evaluation patient with very lethargic hardly wakes up able to state his name but very slurred speech. An ammonia level checked was normal. Patient received last dose of Ativan around 10 AM. My discussion with Dr. Muse he is planning to do endoscopy EGD again tomorrow. Because of questionable airway protection, GCS about 8 and upper GIB and this will also facilitate bedside EGD tomorrow 05/18 Patient is sedated with Diprivan and intubated. On Protonix and bicarb drips. Afebrile. For EGD today. 05/19 Patient s/p EGD yesterday with showed multiple duodenal ulcers with visible vessel s/p EPi injection and cauterization. Late afternoon yesterday became rebled became hypotensive and started on Levophed now 7 mics. He was given 4 units PRBC for Hgb 5.6 underwent arteriogram with coil and embolization of right gastric and GDA. Given additional 1unit PRBC, 2u FFP and 1u PLT overnight. Hgb 7.4 this morning from 10.1 last night. Placed on Amio drip overnight sedated with Diprivan. 05/20 Patient remains intubated and and sedated with Diprivan on Amio drip. Renal function worse today with Cr: 3.43 from 2.86 and UO: 475 ml in 24 hrs. Hgb 7.7 this morning s/p transfusion 2units PRBC yesterday. 05/21 Patient remains sedated with Diprivan and intubated. Tolerated CPAP for all day yesterday. Bleeding scan was positive for GI bleed in small bowel ( proximal Duodenum) Received total 3 units PRBC since yesterday and 1unit PLT. Hgb 9.2 this morning. Renal function is worse with Cr: 3.81 from 3.43 with UO:700ml in 24hrs. Patient went into Afib with RVR and placed on Amio drip. 05/22 Patient remains sedated with Diprivan and intubated. For repeat EGD today. On Sandostatin, Protonix and Amio drips. H/H stable. Renal function similar to yesterday with Cr: 3.80 however his UO is overall better- 2L in 24 hrs. 05/23: Drowsy off sedation, remains orally intubated on mechanical ventilation. 05/24: Currently on sedation vacation. Remains orally intubated on mechanical ventilation. Not arousable. No acute events overnight. Cr remains elevated to 3.88; adequate UOP 2300 cc over past 24 hours. 05/25 Patient remains sedated with Diprivan and intubated. On Sandostatin and Protonix drips. Afebrile. Objective Vital Signs Date Time Temp Pulse Resp B/P Pulse Ox O2 Delivery O2 Flow Rate FiO2 05/25/16 08:23 94 30 05/25/16 06:00 73 05/25/16 04:00 98.2 26 126/60 Intake and Output 05/24/16 05/24/16 05/25/16 08:00 16:00 00:00 Intake Total 1488 ml 1412 ml 658 ml Output Total 1150 ml 800 ml 1575 ml Balance 338 ml 612 ml -917 ml Result Diagram: 05/25/16 0350 05/25/16 0350 Other Results Laboratory Tests Test 05/24/16 05/24/16 05/25/16 13:25 13:30 03:50 White Blood Count 8.9 TH/MM3 7.5 TH/MM3 Red Blood Count 2.70 MIL/MM3 2.74 MIL/MM3 Hemoglobin 7.9 GM/DL 8.0 GM/DL Hematocrit 23.7 % 23.9 % Mean Corpuscular Volume 87.8 FL 87.4 FL Mean Corpuscular Hemoglobin 29.3 PG 29.4 PG Mean Corpuscular Hemoglobin 33.4 % 33.6 % Concent Red Cell Distribution Width 18.5 % 18.4 % Platelet Count 112 TH/MM3 96 TH/MM3 Mean Platelet Volume 7.5 FL 7.8 FL Neutrophils (%) (Auto) 78.6 % 78.1 % Lymphocytes (%) (Auto) 6.6 % 7.2 % Monocytes (%) (Auto) 6.5 % 6.8 % Eosinophils (%) (Auto) 7.9 % 7.3 % Basophils (%) (Auto) 0.4 % 0.6 % Neutrophils # (Auto) 7.0 TH/MM3 5.9 TH/MM3 Lymphocytes # (Auto) 0.6 TH/MM3 0.5 TH/MM3 Monocytes # (Auto) 0.6 TH/MM3 0.5 TH/MM3 Eosinophils # (Auto) 0.7 TH/MM3 0.6 TH/MM3 Basophils # (Auto) 0.0 TH/MM3 0.0 TH/MM3 CBC Comment DIFF FINAL AUTO DIFF Differential Comment AUTO DIFF CONFIRMED Sodium Level 145 MEQ/L 148 MEQ/L Potassium Level 4.0 MEQ/L 3.5 MEQ/L Chloride Level 112 MEQ/L 112 MEQ/L Carbon Dioxide Level 23.0 MEQ/L 21.5 MEQ/L Anion Gap 10 MEQ/L 15 MEQ/L Blood Urea Nitrogen 123 MG/DL 120 MG/DL Creatinine 3.94 MG/DL 3.77 MG/DL Estimat Glomerular Filtration 15 ML/MIN 16 ML/MIN Rate Random Glucose 277 MG/DL 247 MG/DL Calcium Level 7.7 MG/DL 7.5 MG/DL Total Bilirubin 0.7 MG/DL 0.7 MG/DL Aspartate Amino Transf 54 U/L 45 U/L (AST/SGOT) Alanine Aminotransferase 65 U/L 59 U/L (ALT/SGPT) Alkaline Phosphatase 131 U/L 142 U/L Total Protein 5.7 GM/DL 5.8 GM/DL Albumin 1.3 GM/DL 1.3 GM/DL Ammonia 57 MCMOL/L Platelet Estimate LOW Platelet Morphology Comment NORMAL Imaging Last Impressions Chest X-Ray 05/23/16 Signed Impressions: Service Date/Time: Monday, May 23, 2016 03:26 - CONCLUSION: Tiny bilateral pleural effusions and bibasilar infiltrates. Carroll Joel Jr., MD GI Bleed Scan Nuclear Medicine 05/20/16 Signed Impressions: Service Date/Time: Friday, May 20, 2016 14:25 - CONCLUSION: 1. Positive for gastrointestinal bleed in small bowel, probably at the proximal duodenum. Randy Byrne MD Central Venous Line 05/18/16 Signed Impressions: Service Date/Time: Wednesday, May 18, 2016 00:00 - CONCLUSION: Uncomplicated line placement as above. Wilver Mendoza MD Celiac/Hepatic Arteriogram 05/18/16 Signed Impressions: Service Date/Time: Wednesday, May 18, 2016 16:21 - CONCLUSION: 1. Active bleeding identified off the GDA in the expected location of the duodenum. 2. Successful coil and Gelfoam embolization of the right gastric and GDA as detailed above. Wilver Mendoza MD Renal Ultrasound 05/15/16 Signed Impressions: Service Date/Time: Sunday, May 15, 2016 10:50 - CONCLUSION: 1. Kidneys within normal limits. 2. Findings suggesting cirrhosis and portal venous hypertension with varices and recanalized paraumbilical vein. Get Franco MD Lower Extremity Ultrasound 05/15/16 Signed Impressions: Service Date/Time: Sunday, May 15, 2016 08:41 - CONCLUSION: 1. No evidence of lower extremity DVT on the right or left. 2. Elongated fluid in the proximal to mid left calf. The rectal diagnosis is muscle tear versus dissecting Santo cyst. 3. 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 Get Franco MD Knee MRI 05/15/16 Signed Impressions: Service Date/Time: Sunday, May 15, 2016 16:51 - CONCLUSION: 1. Prominent edema in the medial calf with prominent fluid signal between the medial gastrocnemius and soleus muscles. Differential diagnosis is ruptured Santo cyst versus muscle strain. No fluid-filled gap in muscle fibers is seen. There is also adjacent superficial soft tissue edema in this region. 2. Small horizontal tear of the body of the medial meniscus. 3. Small joint effusion. 4. Mild reactive bony edema in the patella. 5. No evidence of osteomyelitis. 6. Moderate focal medial facet patellar chondromalacia. Get Franco MD Knee X-Ray 05/14/16 0000 Signed Impressions: Service Date/Time: Saturday, May 14, 2016 15:44 - CONCLUSION: Negative for fracture or dislocation. Follow up in 7-10 days is suggested if symptoms persist. Alexy Padron MD FACR Objective Remarks GENERAL: Patient is 66 yo intubated and sedated, SKIN: Warm and dry. HEAD: Normocephalic. EYES: No scleral icterus. No injection or drainage. NECK: Supple, trachea midline. No JVD or lymphadenopathy. CARDIOVASCULAR: Regular rate and rhythm without murmurs, gallops, or rubs. RESPIRATORY: Breath sounds equal bilaterally. No accessory muscle use. GASTROINTESTINAL: Abdomen soft, non-tender, nondistended. MUSCULOSKELETAL: No cyanosis, or edema. Neuro; Sedated and intubated. Date of Insertion: May 18, 2016 Line: Central Venous Catheter Side: Right Location: Internal, Jugular A/P Assessment and Plan NEURO: Acute encephalopathy Alcohol dependence -On Diprivan infusion for sedation. Daily sedation vacation -Discontinue Ativan, supplement thiamine and multivitamin -Avoid any sedatives and long-acting narcotics -If patient displays symptoms of alcohol withdrawal consider Haldol/Ativan/ Precedex RESP: Respiratory insufficiency History of asthma -Continue with vent support keep sat >92% -DuoNeb every 6 hours and when necessary, ventilator bundle -SBT trials, if tolerated will extubate today CV: Atrial fibrillation with rapid ventricular response -Monitor HR and BP keep MAP>65mmHg. -Converted to sinus rhythm currently -Amiodarone 400mg Q12, -Echo 05/17: EF 45-50%, no RWMA GI/HEME: Upper GI bleed/large duodenal ulcer Severe anemia requiring transfusion Liver cirrhosis -s/p Arteriogram with coli and embolization of right gastric and GDA 05/18 Bleeding scan positive for GI bleed in small bowel probably in proximal Jejunum 05/20 -IV Protonix and Sandostatin drips, s/p EGD 05/22: multiple duodenal ulcers, no active bleeding -Consider transitioning Protonix drip to BID following discussion with GI -On Sandostatin drip, to be discontinued if GI approves -Monitor CBC Keep Hgb >8 -Surgery is following- Dr. Novak- patient is high risk for surgery. -s/p repeat EGD 05/18 which showed duodenal ulcers with visible vessels s/p Epi injection and cauterization -EGD 05/16/16 shows large duodenal ulcer. Unable to visualize most of stomach and duodenum due to large amount of clot present -s/p transfusion 2units PRBC 05/19 -Continue tube feeds with Nepro at 30 cc/hr -Received 16 units PRBC since admission, 2u FFP, 2u PLT - : Acute kidney failure Hypernatremia -Monitor renal function, I/O's, avoid nephrotoxins. - Cr: 3.77 from 3.94 with UO: 3825ml in 24 hrs -On PO bicarb 650mg Q8, on Bumex 2mg IV q8h -Place on Free water 250ml Q8 monitor sodium level. -Nephrology Dr. Johnson is following ID: -Continue empiric abx (Rocephin started on 05/19; will complete a 7-day course and consider discontinuing). Monitor for signs of infection (Fever, WBC) culture if spikes fever. 05/14 BC: No growth 05/14 sputum cx: No growth 05/14, 05/17 urine cx: No growth ENDO: -SSI (medium scale) , add Levemir insulin 5units BID for glycemic control PROPH: -Bilateral lower extremity SCDs. Chemical DVT prophylaxis contraindicated. Consider switching Protonix infusion to BID dosing, defer to GI LINES: -Utilize peripheral IVs, Right IJ CVP placed 05/18 CCT 30 mins Sandy Ovalle MD May 25, 2016 08:43
[2016-05-25] MEDS: FREE WATER G-TUBE SCH ×3 (08:45→22:00)
--- NOTE | 2016-05-25 08:46 | HHI.FPPN ---
Subjective Remarks Pt seen and examined this morning. No acute events overnight. Pt intubated and sedated. Ventilator setting with PEEP of 5, FiO2 of 30%. Anticipate CPAP trials later today. Palliative care has been consulted. (Hu Flood MD R2) Objective Vitals Vital Signs Date Time Temp Pulse Resp B/P Pulse Ox O2 Delivery O2 Flow Rate FiO2 05/25/16 08:23 94 30 05/25/16 06:00 73 05/25/16 04:13 100 30 05/25/16 04:00 30 05/25/16 04:00 98.2 73 26 126/60 95 05/25/16 04:00 73 05/25/16 02:00 71 05/25/16 00:03 95 30 05/25/16 00:00 30 05/25/16 00:00 68 05/25/16 00:00 98.2 68 21 121/57 05/24/16 22:00 69 05/24/16 20:00 65 05/24/16 20:00 30 05/24/16 20:00 98.9 65 19 115/58 95 05/24/16 19:47 95 30 05/24/16 18:00 66 05/24/16 16:00 65 05/24/16 16:00 30 05/24/16 16:00 98.0 65 16 104/51 95 05/24/16 14:36 96 30 05/24/16 14:00 63 05/24/16 12:00 57 05/24/16 12:00 30 05/24/16 12:00 97.8 57 18 100/49 99 05/24/16 11:17 100 30 05/24/16 11:07 99 30 05/24/16 10:00 61 I/O 05/24/16 05/24/16 05/24/16 05/25/16 05/25/16 05/25/16 07:00 15:00 23:00 07:00 15:00 23:00 Intake Total 1488 ml 1412 ml 658 ml 908 ml Output Total 1150 ml 800 ml 1575 ml 1450 ml Balance 338 ml 612 ml -917 ml -542 ml Intake Oral 0 ml IV Total 1233 ml 1182 ml 427 ml 677 ml Tube Feeding 255 ml 230 ml 231 ml 231 ml Output Urine Total 1150 ml 800 ml 1575 ml 1450 ml # Bowel Movements 0 0 (Hu Flood MD R2) Result Diagram: 05/25/16 0350 05/25/16 0350 Objective Remarks GEN: Well-developed, well-nourished patient 66-year-old male lying in bed intubated and sedated. CV: Regular rate and rhythm without obvious murmurs LUNGS: Clear to anterior auscultation bilaterally. Audible upper airway sounds. EXT: Continued 1+ edema of legs to upper thigh and 2+ edema of hands. NEURO/PSYCH: Intubated. (Hu Flood MD R2) Date of Insertion: May 18, 2016 Line: Central Venous Catheter Side: Right Location: Internal, Jugular (Hu Flood MD R2) A/P Assessment and Plan 65 y/o male with history of DM and osteomyelitis presents with left leg pain as well as GI bleed, diabetes mellitus. Admitted for anemia, JOSE and left knee pain. sdw: Dr. Real dw: Dr. Farley Discharge Planning Unclear, pending critical care course (Hu Flood MD R2) Attending Attestation Patient seen and examined. Case reviewed and discussed with the resident team. Agree with plan of care as discussed with me and documented in the resident note. (Chapis Farley MD) Problem List: (1) Acute encephalopathy Status: Acute Plan: Unclear etiology. DDx: delirium, alcohol withdrawal, metabolic encephalopathy, uremia Ammonia level elevated to 57 -Critical care consulted: appreciate recs -Pt intubated 05/17 due to lethargy and airway protection -Pt underwent CPAP trial 05/23, however was not extubated due to decreased arousability. Abx: Rocephin 1 g IV qd (05/19 - ) (2) JOSE (acute kidney injury) Status: Acute Plan: Ddx includes pre-renal (dehydration/hypovolemia) vs renal (ATN). Concern for underlying CKD. Associated with decreased eating and drinking prior to presentation. Baseline Cr is 0.83 from 2 years ago, admission Cr is 5.38. Pre- sedation confusion likely due to uremia. -Renal function stable today. JOSE likely due to hypotension vs IV contrast for arterial embolization for evaluation fo GI bleed. -Strict I/Os Nephrology consulted: appreciate recommendations * IV Diuril BID * Sodium bicarbonate PO Q8hrs * Bumex 2mg IV Q8hrs * Renal function stable however BUN and creatinine remains elevated; Discussing dialysis with family * Avoid nephrotoxic agents Imaging: * Renal US: Kidneys unremarkable. Finding suggesting cirrhosis and portal venous HTN with varices and recanalized paraumbilical vein. (3) Anemia Status: Acute Plan: No history of ulcers or blood thinners. Has some recent NSAID use and history of alcohol abuse. DDx: gastric/duodenal ulcer, esophageal varices, diverticulosis, colorectal cancer, polyps, IBD, hemorrhoids.H/H on admission was 6.8/20.6. Admission BUN/Cr ratio 19, suggestive of upper GI bleed. S/p transfusion on 05/19 due to hemoglobin remaining low at 7.4 Echo: EF 45-50%, mild MR, mild TR -Tachycardia and SOB likely due to anemia. CXR unremarkable except for cardiomegaly. -Hemoccult in ED positive. -H&H monitored; Transfuse as needed GI consulted: appreciate recommendations * s/p EGD 05/16 - Large clots in fundus, non-bleeding ulcer in duodenal bulb. Normal esophagus * Repeat EGD 05/18 - duodenal ulcers with visible vessels, cauterized -s/p arteriogram with coli and embolization of right gastric and GDA (05/18 ) * Repeat EGD 05/22 - large duodenal ulcers with no active bleeding * Liver serologies negative * Continue Protonix and octreotide until patient has had no signs of bleeding for 24 hours Gen surgery consulted-appreciate recs: Do not recommend surgery, operative mortality approaching 100% Medications: * Protonix drip * Octreotide * Hold all anticoagulation (Coumadin, Plavix, Aspirin) (4) Atrial fibrillation Status: Acute Plan: Pt developed Afib with RVR. No history of Afib per patient. Given lopressor, cardizem. S/p cardizem infusion 05/17. Holding chemo ppx due to GI bleed -Amiodarone 400mg po Q12hrs -Continue to monitor tele, heart rate (5) Diabetes mellitus Status: Acute Plan: Hold home metformin and glipizide. A1c of 6.1, could be falsely low due to blood loss anemia. Bedside glucose in the 200s -Low-dose sliding scale -Levemir 5units Q12hrs (6) Cirrhosis Status: Acute Plan: Significant alcohol history. Denies alcohol withdrawals. No seizures in past. Cirrhosis seen on Renal US with evident of portal venous HTN with varices. Hepatitis panel negative. -See Ammonia above -Rally pack -CIWA protocol (7) Asthma Status: Chronic Plan: -Albuterol PRN (8) Knee pain, acute Status: Acute Plan: Likely due to muscle tear and/or Santo cyst rupture contributing to pain and associated edema. -Ortho consulted: Appreciate recommendations. Does not look like septic joint because there is no significant effusion. -S/p antibiotics (Vanc 05/14-; Linezolid 05/15-05/16; Cefepime 05/14-05/16) ( Rocephin 05/19- ) -Pain control with Tylenol PO/IV to not exceed 3000mg -Would benefit for PT once acute pain and mental status improves. Imaging: * MRI: Prominent edema in the medial calf with prominent fluid signal between the medial gastrocnemius and soleus muscles. DDX is ruptured Santo cyst versus muscle strain. Small joint effusion. No evidence of osteomyelitis. * LE ultrasound: No evidence of DVT. Elongated fluid in the proximal to mid left calf. DDX is muscle tear versus dissecting Santo cyst. 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 * Left knee XR: Negative for fracture or dislocation (9) FEN Status: Acute Plan: Fluids: Holding, diuresing Electrolytes: Sodium slightly elevated at 148. Continue to monitor. Nutrition: Tube feeds DVT ppx: SCDs/TEDs, chemoprophylaxis contraindicated due to GI bleed GI ppx: Protonix gtt (Hu Flood MD R2) Problem Qualifiers (1) Anemia: Qualified Code: D64.9 - Anemia, unspecified type (2) Atrial fibrillation: Qualified Code: I48.0 - Paroxysmal atrial fibrillation (3) Diabetes mellitus: Qualified Code: E11.8 - Type 2 diabetes mellitus with complication, without long-term current use of insulin (4) Cirrhosis: Qualified Code: K74.60 - Cirrhosis of liver without ascites, unspecified hepatic cirrhosis type (5) Asthma: Qualified Code: J45.909 - Uncomplicated asthma, unspecified asthma severity (6) Knee pain, acute: Qualified Code: M25.562 - Acute pain of left knee Hu Flood MD R2 May 25, 2016 08:46 Chapis Farley MD May 28, 2016 11:53
[2016-05-25] MEDS: SODIUM CHLORIDE 0.9% FLUSH 10 ML FLUSH IV FLUSH SCH ×2 (09:00→20:16)
[2016-05-25] MEDS: SODIUM CHLORIDE 0.9% FLUSH 10 ML FLUSH IVF SCH (09:00)
[2016-05-25] MEDS: cefTRIAXone INJ 1,000 MG in SODIUM CHLORIDE 0.9% INJ 100 ML IV SCH (09:03)
[2016-05-25] MEDS: ARTIFICIAL TEARS OPTH SOLN 15 ML BTL EACH EYE SCH ×2 (09:03→20:06)
[2016-05-25] MEDS: CHLORHEXIDINE 0.12% (ORAL KIT) 15 ML CUP MT SCH ×2 (09:04→20:03)
[2016-05-25] MEDS: THIAMINE HCL 100 MG TAB PO SCH (09:05)
[2016-05-25] MEDS: INSULIN DETEMIR 100 UNITS/ML VIAL SQ SCH ×2 (09:05→20:17)
[2016-05-25] MEDS: AMIODARONE 200 MG TAB PO SCH ×2 (11:47→23:48)
[2016-05-25] MEDS: CHLOROTHIAZIDE SOD 500 MG VIAL IV SCH ×3 (12:22→23:49)
--- NOTE | 2016-05-25 13:09 | PD.CONS ---
Consult Service Palliative Care Consult Requested By Dr. Flood . Primary Care Physician Non-Staff . Reason for Consultation a. To assist with evaluation and management of symptoms including: pain; encephalopathy b. To assist medical decision maker(s) with: better understanding of current medical conditions; weighing benefits/burdens of medical treatment options; making medical treatment decisions. . HPI History of Present Illness Mr. Gonzalez is a 66-year-old diabetic male resident of [place] with known asthma and a history of osteomyelitis who was in [facility] visiting his brother when he apparently had the sudden onset of left knee pain without known injury or trauma. There was no apparent redness or swelling. The pain was constant and became so severe he could barely get out of bed. He rated the pain as 9 out of 10. There was no radiation of the pain. Any movement or pressure apparently exacerbated the pain. The patient presented to the [facility] emergency department initially on 05/11/16. The knee was noted to be tender to the touch at that time and there was decreased extension of the knee. There was also some warmth on the medial aspect and some mild erythema. There was no evidence of fluid collection. X-ray imaging of the knee did not show any evidence of pathology. Given the patient's history of diabetes and osteomyelitis there was concern for possible infection. The patient was started on clindamycin. Ibuprofen was recommended for pain. Orthopedic follow-up was recommended as soon as possible. The patient returned to the emergency department on 05/14/16 with similar complaints. The patient was afebrile. Examination was otherwise similar. Arthrocentesis was attempted but no fluid was obtained. The patient was also complaining of abdominal pain primarily in the epigastric area which would come and go. He denied any blood in the stool or black stools. He did note that his last bowel movement was approximately a week earlier. Initial diagnostic testing revealed the following: * CBC showed WBC 11.3; hemoglobin 6.8; platelet count 104; MCV 98.4. There was a 12% bandemia * ESR was greater than 140; C-reactive protein was 26.4 * Chemistry profile showed sodium 132; potassium 5.0; chloride 99; CO2 19.1; anion gap 14; BUN 103; creatinine 5.38; GFR of 11; glucose 245; calcium 7.3 * Liver function testing showed total bilirubin 1.2; AST 19; ALT 13; alkaline phosphatase 106; total protein 6.1; albumin 1.7 * Coagulation profile showed PT 13.4; INR 1.2; PTT 38.5 * Hemoccult testing was positive With leukocytosis, anemia, thrombocytopenia, bandemia, elevated sedimentation rate, poor renal function, elevated potassium, and Hemoccult-positive stools, it was felt appropriate to admit the patient. The patient was given vancomycin and cefepime in the emergency department. Orthopedics, nephrology, and GI were consulted. MRI imaging of the lower extremity showed prominent edema in the medial calf with a fluid signal suggestive of either a ruptured Santo cyst or a muscle strain. There was a small horizontal tear of the body of the medial meniscus. There was a small joint effusion. There was mild reactive bony edema in the patella. There was no evidence of osteomyelitis. There was moderate focal medial facet patellar chondromalacia. The orthopedist felt the patient's greatest pain was in his calf. He did not feel there was active infection in the left knee. He was concerned about swelling and pain in the calf however and made recommendations. Ultrasound of the lower extremity showed no evidence of DVT. Gastroenterology took the patient to diagnostic EGD on 05/16/16. Large blood clots were noted in the stomach fundus. The scope could only be advanced to the duodenal bulb because of large clots there. A large ulcer was noted in the duodenal bulb. A Protonix drip was started. The plan was to repeat EGD in 2 days and to consider embolization if needed. The patient was transferred to the critical care unit because of the high risk of recurrent bleeding and possible need for embolization by interventional radiology. He was also noted to have atrial fibrillation with rapid ventricular rate. Critical care medicine was consulted. Repeat EGD on 05/18/16 revealed multiple large bleeding , round, and deep ulcers in both the duodenal bulb and second part of the duodenum. These were cauterized. Submucosal injection of epinephrine was also performed. Hemostasis appeared to be achieved. No other significant abnormalities were noted. Because of continued bleeding, the patient went to interventional radiology where he underwent embolization of the gastro-duodenal artery on 05/18/16. Gen. surgery was consulted on 05/19/16. By that point the patient had received 6 units of blood, 2 units of fresh frozen plasma, and 1 unit of platelets in the last 3 days. General surgery felt that due to the patient's multiple comorbidities and current clinical condition that operative mortality, should surgery be necessary for controlling the bleeding, would approach 100%. They recommended ongoing medical management and only consider surgery if all other routes failed and the decision-makers clearly understood the risks of surgery. An additional EGD was performed on 05/22/2016. At that time the large multiple duodenal bulb ulcers were noted again but there was no active bleeding. The patient was noted to have altered mental status early in his hospital course with slurred speech and lethargy. This continued to worsen and the patient has become minimally responsive. In the intensive care unit he become hypotensive at one point requiring pressor support. On 05/21/16 the patient required an amiodarone drip for control of his rapid ventricular rate. Octreotide was started at one point time to control his bleeding. Renal function improved with GFR increasing from 11 on admission 222 on 05/19/16 but has declined again to 16. Today the patient has received 16 units of packed red blood cells. At time of my visit today, the patient has been off sedation for several hours. There has been no recent opiate or benzodiazepine usage. He had been on a propofol drip. He will withdraw slightly to noxious stimuli but does not awaken. There are no spontaneous movements noted. The patient has not appeared painful to the nursing staff and has not been receiving opiate analgesics. It is unclear whether or not the patient would be able to show nonverbal signs of pain. . . Function/Cognitive Trajectory Family reports that the patient has been living independently at his home in [place] but his overall health has been declining. Friends and family have noted significant cognitive changes. 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 Friends and family also reported intermittent slurring of words. The patient drove himself from [place] to [place] on 04/20/16 but friends and family had urged him not to do this because of declining health. The patient is quite private regarding his own health care but family reports it appears he has lost significant weight over the last 2 years. . Review of Systems ROS Limitations: Clinical Condition (patient is minimally responsive and is intubated. He is unable to provide his own review of systems. Review of systems comes from family members and from the medical record. Family reports that the patient) Constitutional: COMPLAINS OF: Fatigue, Weight loss, Change in appetite, Pain, Generalized weakness, DENIES: Fever Endocrine: DENIES: Polydipsia, Polyuria, Polyphagia Eyes: COMPLAINS OF: Vision loss (wears reading glasses) Ears, nose, mouth, throat: DENIES: Throat pain, Epistaxis Respiratory: COMPLAINS OF: Wheezing, DENIES: Cough, Hemoptysis, Shortness of breath Cardiovascular: COMPLAINS OF: Lower Extremity Edema, DENIES: Chest pain, Syncope Gastrointestinal: COMPLAINS OF: Abdominal pain, Constipation, DENIES: Nausea, Vomiting, Difficulty Swallowing Musculoskeletal: COMPLAINS OF: Joint pain, Stiffness, Joint Swelling, Decreased range of motion, DENIES: Back pain Integumentary: DENIES: Pruritus, Rash Hematologic/Lymphatics: COMPLAINS OF: History of transfusions, DENIES: Bruising Neurologic: COMPLAINS OF: Abnormal gait, DENIES: Seizures, Tremor Psychiatric: DENIES: Anxiety, Depression, Hallucinations Past Family Social History Coded Allergies: No Known Allergies (Unverified , 05/14/16) Past Medical History * DM * Asthma (since his youth) * Right 2nd digit gangrene, OM, foot cellulitis. S/P amputation. * Hx alcoholism . Past Surgical History * Amputation of right big toe and right little toe due to osteomyelitis * History of right knee infection requiring open I&D many years ago . Reported Medications Prehospitalization medications included the following: Ibuprofen 800 Mg Tab 800 Mg PO TID Cleocin (Clindamycin HCl) 150 Mg Cap 450 Mg PO Q6H 7 Days Advair Diskus Inh (Fluticasone-Salmeterol Inh) 100-50 Mcg/Blist Aer 1 Puff INH BID Ventolin Hfa 18 GM Inh (Albuterol Sulfate) 90 Mcg/Act Aer 2 Puff INH Q4-6H PRN Metformin (Metformin HCl) 500 Mg Tab 500 Mg PO DIRECTED With meals Magnesium Oxide 400 Mg Tab 400 Mg PO BID Glipizide 5 Mg Tab 5 Mg PO DAILY Aspirin Low Dose (Aspirin) 81 Mg Chew 81 Mg CHEW DAILY . Current Medications Medications (Trade) Dose Ordered Sig/Irene Route Start Time Stop Time Status Last Admin (NS Flush) 2 ml UNSCH PRN IV FLUSH 05/14/16 17:30 (NS Flush) 2 ml BID IV FLUSH 05/14/16 21:00 05/25/16 09:00 (Zofran Inj) 4 mg Q6H PRN IVP 05/14/16 17:30 (Narcan Inj) 0.4 mg UNSCH PRN IV 05/14/16 17:30 (Symbicort 80-4.5 Mcg Inh) 2 puff BID INH 05/14/16 21:00 05/17/16 08:46 (Romazicon Inj) 0.2 mg Q1M PRN IV PUSH 05/14/16 20:00 (Sodium Bicarbonate) 650 mg Q8HR PO 05/15/16 14:00 05/25/16 06:01 (Tylenol) 650 mg Q6HR PRN PO 05/15/16 20:00 Thiamine HCl 100 mg 100 mg DAILY PO 05/17/16 09:00 05/25/16 09:05 (Protonix Inj/NS Inj) 100 ml @ 10 mls/hr Q10H IV 05/16/16 16:00 05/25/16 06:02 Miscellaneous Information Patient in critical care unit? Ass... [id number] .XX 05/16/16 21:15 Chlorhexidine Gluconate 15 ml 15 ml BID@08,20 MT 05/17/16 20:00 05/25/16 09:04 (Diprivan 1000 Mg/100ml Inj) 100 ml @ 0 mls/hr TITRATE IV 05/17/16 16:00 05/24/16 23:33 (NS Flush) DAILY IVF 05/19/16 09:00 05/25/16 09:00 (NS Flush) UNSCH PRN IVF 05/18/16 18:15 05/21/16 22:46 (D50w (Vial) Inj) 25 ml UNSCH PRN IV PUSH 05/19/16 08:45 (Glucagon Inj) 1 mg UNSCH PRN OTHER 05/19/16 08:45 Insulin Human Regular 1 1 Q6H SQ 05/19/16 08:45 05/25/16 09:05 Ceftriaxone Sodium 1000 mg/ Sodium Chloride 100 ml @ 200 mls/hr Q24H IV 05/19/16 09:00 05/25/16 09:03 (Cordarone Inj/ D5W (Frannie) Inj) 250 ml @ 0 mls/hr CONTINUOUS IV 05/21/16 00:45 05/23/16 22:44 (Tears Naturale Opth Soln) 1 drop BID EACH EYE 05/21/16 21:00 05/25/16 09:03 Artificial Tears 1 drop 1 drop UNSCH PRN EACH EYE 05/21/16 10:45 (SandoSTATIN INJ/ NS 500 ml Inj) 500.0 ml @ 100 mls/hr Q5H IV 05/21/16 21:58 05/26/16 14:59 05/25/16 11:47 (Diuril Inj) 250 mg Q12H IV 05/22/16 12:00 05/25/16 12:22 (Bumex Inj) 2 mg Q8HR IV PUSH 05/23/16 22:00 05/25/16 06:01 (Cordarone) 400 mg Q12H PO 05/24/16 12:00 05/25/16 11:47 (Free Water) 250 ml Q8HR G-TUBE 05/25/16 08:45 05/25/16 08:45 (Levemir Inj) 5 units Q12HR SQ 05/25/16 09:00 05/25/16 09:05 . Family History The patient's father at age 93 of "old age." The patient's mother at age 88 from complications of a fractured hip. One brother at age 49 from myocardial infarction. Another brother at age 73. He had diabetes and end-stage renal disease requiring dialysis. . Substance Use Tobacco: Quit smoking approximately 30-40 years ago Alcohol: Patient consumes at least 6-7 alcoholic drinks per day and continue to do so in the days leading up to hospital admission. Prescription med abuse: No known prescription drug abuse. Illicits: No known use of illicits. . Psychosocial History The patient is originally from [place] permanent [place]. He visits his brother and his brother's family here in [facility] on an annual basis. He has been in [place] this time since 04/2016. The patient is a high school graduate and completed some college. He has no experience. 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 The patient has never been . He has no children. He was one of 4 brothers. 2 of those brothers are . His brother, Randy, lives in [facility] and is his closest relative. . Spiritual/Cultural Factors Family reports that latter day and spirituality have not been an important part of his life. . Living Will: Never completed Health Care Surrogate: Never completed Durable Power of Qa Reviewer: Never completed Date completed: The patient has never completed a living will or designation of health care surrogate. . Health Care Surrogate(s): The patient has never completed a living will or designation of health care surrogate. . Documented care wishes: There is no written documentation of health care goals or preferences. . Today's verbally stated goals: The patient is unable to verbally state his health care goals/preferences and is unlikely to be able to do so in the near future. . Family/friends goals: The patient's brother, the healthcare proxy, is still deciding on goals. He knows the patient would not want to be dependent in a correction. He knows he would not want life prolonged on machines. If the doctors truly feel the patient's prognosis for returning to an independent life is quite bleak, he feels the patient would probably want to be withdrawn from life support and kept comfortable. He will discuss this with others close with the patient before making a final decision. . Ethical and Legal Issues The patient is incapacitated to make his own health care decisions at this time. It seems unlikely he will regain capacity to do so in the near future if at all. . Physical Exam Vital Signs Date Time Temp Pulse Resp B/P Pulse Ox O2 Delivery O2 Flow Rate FiO2 05/25/16 12:00 30 05/25/16 12:00 99.3 74 22 138/65 97 05/25/16 12:00 72 05/25/16 11:55 96 30 05/25/16 10:00 74 05/25/16 09:32 30 05/25/16 08:23 94 30 05/25/16 08:00 73 05/25/16 08:00 99.2 73 25 133/61 97 05/25/16 08:00 30 05/25/16 06:00 73 05/25/16 04:13 100 30 05/25/16 04:00 30 05/25/16 04:00 98.2 73 26 126/60 95 05/25/16 04:00 73 05/25/16 02:00 71 05/25/16 00:03 95 30 05/25/16 00:00 30 05/25/16 00:00 68 05/25/16 00:00 98.2 68 21 121/57 05/24/16 22:00 69 05/24/16 20:00 65 05/24/16 20:00 30 05/24/16 20:00 98.9 65 19 115/58 95 05/24/16 19:47 95 30 05/24/16 18:00 66 05/24/16 16:00 65 05/24/16 16:00 30 05/24/16 16:00 98.0 65 16 104/51 95 05/24/16 14:36 96 30 05/24/16 14:00 63 . 05/24/16 05/25/16 19:00 07:00 Intake Total 1412 ml 1566 ml Output Total 800 ml 3025 ml Balance 612 ml -1459 ml Intake Oral 0 ml IV Total 1182 ml 1104 ml Tube Feeding 230 ml 462 ml Output Urine Total 800 ml 3025 ml # Bowel Movements 0 . Exam CONSTITUTIONAL/GENERAL: This is an adequately nourished patient, intubated, minimally responsive, in a medical ICU bed. No evidence of distress. TUBES/LINES/DRAINS: Orotracheal tube; orogastric tube; Kaur catheter; bilateral soft wrist restraints; SCDs; right internal jugular central line. SKIN: No jaundice, rashes, or lesions. . No wounds seen anteriorly. Skin temperature appropriate. Not diaphoretic. HEAD: Atraumatic. Normocephalic. EYES: Pupils equal and round and reactive. Patient does not trackcannot evaluate extraocular movements. No scleral icterus. No injection or drainage. Fundi not examined. ENT: Unable to evaluate hearing. Nose without bleeding or purulent drainage. Throat without visible erythema, exudates, masses, or lesions but difficult to examine thoroughly due to intubations. NECK: Trachea midline. No palpable thyroid enlargement or nodularity. CARDIOVASCULAR: Regular rate and rhythm without murmurs, gallops, or rubs. No JVD. Peripheral pulses symmetric. RESPIRATORY/CHEST: Symmetric, unlabored respirations. Clear to auscultation. Breath sounds equal bilaterally. No wheezes, rales, or rhonchi. GASTROINTESTINAL: Abdomen soft, non-tender, nondistended. No hepato-splenomegaly , or palpable masses. No guarding. Bowel sounds present. GENITOURINARY: Without palpable bladder distension. Kaur catheter in place. Significant penile and scrotal edema is present. MUSCULOSKELETAL: Extremities without clubbing, cyanosis. There is 3-4+ edema in the upper extremities with some weeping. Edema is somewhat limited in the lower extremities were the patient has SCDs in place. No significant warmth/ swelling over the left knee. No calf tenderness. No mottling or clubbing. LYMPHATICS: No palpable cervical or supraclavicular adenopathy. NEUROLOGICAL: Does not awaken to voice or exam (patient has been off all sedation for hours) . Unable to follow commands. Right lower extremity withdraws to mild stimulation. Minimal withdrawal on the left. No spontaneous movements during my visit. PSYCHIATRIC: Unable to assess due to level of responsiveness. . Diagnostic Tests Laboratory Laboratory Tests Test 05/23/16 05/24/16 05/24/16 05/24/16 04:18 04:07 13:25 13:30 White Blood Count 13.5 TH/MM3 8.9 TH/MM3 (4.0-11.0) (4.0-11.0) Red Blood Count 2.91 MIL/MM3 2.70 MIL/MM3 (4.50-5.90) (4.50-5.90) Hemoglobin 8.3 GM/DL 7.9 GM/DL (13.0-17.0) (13.0-17.0) Hematocrit 25.0 % 23.7 % (39.0-51.0) (39.0-51.0) Mean Corpuscular Volume 85.9 FL 87.8 FL (80.0-100.0) (80.0-100.0) Mean Corpuscular Hemoglobin 28.6 PG 29.3 PG (27.0-34.0) (27.0-34.0) Mean Corpuscular Hemoglobin 33.3 % 33.4 % Concent (32.0-36.0) (32.0-36.0) Red Cell Distribution Width 17.9 % 18.5 % (11.6-17.2) (11.6-17.2) Platelet Count 145 TH/MM3 112 TH/MM3 (150-450) (150-450) Mean Platelet Volume 7.5 FL 7.5 FL (7.0-11.0) (7.0-11.0) Neutrophils (%) (Auto) 81.9 % 78.6 % (16.0-70.0) (16.0-70.0) Lymphocytes (%) (Auto) 5.6 % 6.6 % (9.0-44.0) (9.0-44.0) Monocytes (%) (Auto) 5.8 % (0.0-8.0) 6.5 % (0.0-8.0) Eosinophils (%) (Auto) 6.2 % (0.0-4.0) 7.9 % (0.0-4.0) Basophils (%) (Auto) 0.5 % (0.0-2.0) 0.4 % (0.0-2.0) Neutrophils # (Auto) 11.0 TH/MM3 7.0 TH/MM3 (1.8-7.7) (1.8-7.7) Lymphocytes # (Auto) 0.8 TH/MM3 0.6 TH/MM3 (1.0-4.8) (1.0-4.8) Monocytes # (Auto) 0.8 TH/MM3 0.6 TH/MM3 (0-0.9) (0-0.9) Eosinophils # (Auto) 0.8 TH/MM3 0.7 TH/MM3 (0-0.4) (0-0.4) Basophils # (Auto) 0.1 TH/MM3 0.0 TH/MM3 (0-0.2) (0-0.2) CBC Comment DIFF FINAL DIFF FINAL Differential Comment Sodium Level 145 MEQ/L 145 MEQ/L 145 MEQ/L (136-145) (136-145) (136-145) Potassium Level 4.5 MEQ/L 4.2 MEQ/L 4.0 MEQ/L (3.5-5.1) (3.5-5.1) (3.5-5.1) Chloride Level 111 MEQ/L 111 MEQ/L 112 MEQ/L (98-107) (98-107) (98-107) Carbon Dioxide Level 20.8 MEQ/L 21.6 MEQ/L 23.0 MEQ/L (21.0-32.0) (21.0-32.0) (21.0-32.0) Anion Gap 13 MEQ/L (5-15) 12 MEQ/L (5-15) 10 MEQ/L (5-15) Blood Urea Nitrogen 126 MG/DL 122 MG/DL 123 MG/DL (7-18) (7-18) (7-18) Creatinine 3.74 MG/DL 3.88 MG/DL 3.94 MG/DL (0.60-1.30) (0.60-1.30) (0.60-1.30) Estimat Glomerular Filtration 16 ML/MIN (>89) 15 ML/MIN (>89) Rate Random Glucose 227 MG/DL 276 MG/DL 277 MG/DL (74-106) (74-106) (74-106) Calcium Level 7.7 MG/DL 7.8 MG/DL 7.7 MG/DL (8.5-10.1) (8.5-10.1) (8.5-10.1) Phosphorus Level 8.4 MG/DL (2.5-4.9) Albumin 1.3 GM/DL 1.3 GM/DL (3.4-5.0) (3.4-5.0) Total Bilirubin 0.7 MG/DL (0.2-1.0) Aspartate Amino Transf 54 U/L (15-37) (AST/SGOT) Alanine Aminotransferase 65 U/L (12-78) (ALT/SGPT) Alkaline Phosphatase 131 U/L (45-117) Total Protein 5.7 GM/DL (6.4-8.2) Ammonia 57 MCMOL/L (11-32) Test 05/25/16 03:50 White Blood Count 7.5 TH/MM3 (4.0-11.0) Red Blood Count 2.74 MIL/MM3 (4.50-5.90) Hemoglobin 8.0 GM/DL (13.0-17.0) Hematocrit 23.9 % (39.0-51.0) Mean Corpuscular Volume 87.4 FL (80.0-100.0) Mean Corpuscular Hemoglobin 29.4 PG (27.0-34.0) Mean Corpuscular Hemoglobin 33.6 % Concent (32.0-36.0) Red Cell Distribution Width 18.4 % (11.6-17.2) Platelet Count 96 TH/MM3 (150-450) Mean Platelet Volume 7.8 FL (7.0-11.0) Neutrophils (%) (Auto) 78.1 % (16.0-70.0) Lymphocytes (%) (Auto) 7.2 % (9.0-44.0) Monocytes (%) (Auto) 6.8 % (0.0-8.0) Eosinophils (%) (Auto) 7.3 % (0.0-4.0) Basophils (%) (Auto) 0.6 % (0.0-2.0) Neutrophils # (Auto) 5.9 TH/MM3 (1.8-7.7) Lymphocytes # (Auto) 0.5 TH/MM3 (1.0-4.8) Monocytes # (Auto) 0.5 TH/MM3 (0-0.9) Eosinophils # (Auto) 0.6 TH/MM3 (0-0.4) Basophils # (Auto) 0.0 TH/MM3 (0-0.2) CBC Comment AUTO DIFF Differential Comment AUTO DIFF CONFIRMED Platelet Estimate LOW (NORMAL) Platelet Morphology Comment NORMAL (NORMAL) Sodium Level 148 MEQ/L (136-145) Potassium Level 3.5 MEQ/L (3.5-5.1) Chloride Level 112 MEQ/L (98-107) Carbon Dioxide Level 21.5 MEQ/L (21.0-32.0) Anion Gap 15 MEQ/L (5-15) Blood Urea Nitrogen 120 MG/DL (7-18) Creatinine 3.77 MG/DL (0.60-1.30) Estimat Glomerular Filtration 16 ML/MIN (>89) Rate Random Glucose 247 MG/DL (74-106) Calcium Level 7.5 MG/DL (8.5-10.1) Total Bilirubin 0.7 MG/DL (0.2-1.0) Aspartate Amino Transf 45 U/L (15-37) (AST/SGOT) Alanine Aminotransferase 59 U/L (12-78) (ALT/SGPT) Alkaline Phosphatase 142 U/L (45-117) Total Protein 5.8 GM/DL (6.4-8.2) Albumin 1.3 GM/DL (3.4-5.0) . Result Diagram: 05/25/16 0350 05/25/16 0350 Microbiology * Blood and urine cultures from 05/14 showed no growth * Sputum and urine cultures from 03/32,017 showed no growth . Imaging Last Impressions Chest X-Ray 05/23/16 Signed Impressions: Service Date/Time: Monday, May 23, 2016 03:26 - CONCLUSION: Tiny bilateral pleural effusions and bibasilar infiltrates. Carroll Joel Jr., MD GI Bleed Scan Nuclear Medicine 05/20/16 Signed Impressions: Service Date/Time: Friday, May 20, 2016 14:25 - CONCLUSION: 1. Positive for gastrointestinal bleed in small bowel, probably at the proximal duodenum. Randy Byrne MD Central Venous Line 05/18/16 Signed Impressions: Service Date/Time: Wednesday, May 18, 2016 00:00 - CONCLUSION: Uncomplicated line placement as above. Wilver Mendoza MD Celiac/Hepatic Arteriogram 05/18/16 Signed Impressions: Service Date/Time: Wednesday, May 18, 2016 16:21 - CONCLUSION: 1. Active bleeding identified off the GDA in the expected location of the duodenum. 2. Successful coil and Gelfoam embolization of the right gastric and GDA as detailed above. Wilver Mendoza MD Renal Ultrasound 05/15/16 Signed Impressions: Service Date/Time: Sunday, May 15, 2016 10:50 - CONCLUSION: 1. Kidneys within normal limits. 2. Findings suggesting cirrhosis and portal venous hypertension with varices and recanalized paraumbilical vein. Get Franco MD Lower Extremity Ultrasound 05/15/16 Signed Impressions: Service Date/Time: Sunday, May 15, 2016 08:41 - CONCLUSION: 1. No evidence of lower extremity DVT on the right or left. 2. Elongated fluid in the proximal to mid left calf. The rectal diagnosis is muscle tear versus dissecting Santo cyst. 3. 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 Get Franco MD Knee MRI 05/15/16 Signed Impressions: Service Date/Time: Sunday, May 15, 2016 16:51 - CONCLUSION: 1. Prominent edema in the medial calf with prominent fluid signal between the medial gastrocnemius and soleus muscles. Differential diagnosis is ruptured Santo cyst versus muscle strain. No fluid-filled gap in muscle fibers is seen. There is also adjacent superficial soft tissue edema in this region. 2. Small horizontal tear of the body of the medial meniscus. 3. Small joint effusion. 4. Mild reactive bony edema in the patella. 5. No evidence of osteomyelitis. 6. Moderate focal medial facet patellar chondromalacia. Get Franco MD Knee X-Ray 05/14/16 0000 Signed Impressions: Service Date/Time: Saturday, May 14, 2016 15:44 - CONCLUSION: Negative for fracture or dislocation. Follow up in 7-10 days is suggested if symptoms persist. Alexy Padron MD FACR Procedures * Attempted arthrocentesis * Right internal jugular central line placement * Orotracheal intubation * EGD 05/16/2016 and 05/18/2016 and 05/22/16 * Gastro-duodenal artery embolization 05/18/16 . Other * Echocardiogram of 05/17/2016 showed an ejection fraction of 45-50% with no regional wall motion abnormalities. No significant valvular pathology noted. . Patient/Family Conference Present at Family Conference: Randy Gonzalez (Brother and health care proxy) Claudia Jacobsenkassandra ([id number]) . Family Conference Time (mins): 55 Family Conference Location: Consult Room Issues Discussed: * Palliative care role, purpose, approach * Additional medical, psychosocial, and spiritual history * Patients general health, functional status, and cognitive changes in the months leading up to the current hospitalization * Family understanding of the current medical problems * Family understanding of prognosis * Patients goals of care as best understood from advance directives and/or conversations and/or values * Current medical treatment options and benefits/burdens of those options * Likely scenarios comparing ongoing aggressive care with a transition to comfort measures only * Questions answered to the best of my ability * Palliative care contact information provided . Assessment and Plan Disease Oriented Problem List: (1) GI bleed Comment: EGD demonstrated multiple large round and deep duodenal ulcers. Ulcers were noted in the duodenal bulb and in the second part. Patient has undergone gastro-duodenal embolization. He has undergone 3 EGDs since hospital admission. He has had multiple transfusions. . (2) JOSE (acute kidney injury) Comment: Initial GFR was 11. Kidney function has improved but GFR only up to 16 as of 05/25/16. Nephropathy probably secondary to the patient's underlying diabetes and possibly to underperfusion due to blood loss anemia. . (3) Cirrhosis Comment: Patient noted to have cirrhosis and portal hypertension on imaging. Patient with long history of excessive alcohol consumption. . (4) Acute encephalopathy Comment: Etiology of encephalopathy is uncertain. May be a multifactorial delirium and/or a metabolic encephalopathy. . (5) Knee pain, acute Comment: Etiology is still uncertain. No fluid was available to tap. Orthopedics did not think this was an infected joint. MRI of the extremity showed no evidence of osteomyelitis. There was a small horizontal tear of the body of the medial meniscus. There was a small joint effusion. There was moderate focal medial facet patellar chondromalacia. There was also evidence of fluid which possibly represented a ruptured Santo cyst versus a muscle strain. . (6) Diabetes mellitus (7) Anemia Comment: Patient has blood loss anemia. Uncertain what underlying hemoglobin normally is. There may be an underlying nutritional anemia related to the patient's alcohol use. . (8) Alcohol abuse Comment: Family reports patient normally drinks 6-7 alcoholic drinks per day. Has not had complications such as blackouts or seizures to the knowledge of family. .. (9) Asthma Comment: Patient has had asthma since childhood. . Symptom Scale: (1) Pain 0-10 Scale: Unable to quantify Comment: Had been having 9/10 pain in the left knee. No other known prehospitalization pain syndromes. Other possible sources of pain include prolonged bedbound status; orotracheal and orogastric intubations; Kaur catheter; edema in the extremities and scrotum; restraints; and vascular access lines. Unclear if patient, at this time, is able to signal if/when he is uncomfortable. . (2) Dyspnea 0-10 Scale: Unable to quantify Comment: Patient with long history of asthma requiring at least 2 doses of a albuterol inhaler daily at baseline. Now intubated but tolerating CPAP trials. Dyspnea currently appears controlled with ventilator support. Tiny pleural effusions have been noted on chest x-ray. . (3) Encephalopathy 0-10 Scale: Unable to quantify Comment: Patient remains minimally responsive even off sedation. Etiology is uncertain. This is probably a metabolic encephalopathy or a multiple factor hypoactive delirium. Per family reports, patient may have underlying early dementia which is a significant risk factor for developing a hospital delirium. . . Pertinent Non-Medical Issues Psychosocial: Patient psychosocial support in this area comes primarily from his brother Randy and Randy's who live here. Patient is unmarried, has no children, but does have some close friends in his home state of [place]. Spiritual: Advent and spirituality have not played an important role in his life. Legal: Patient has never completed an advanced directive. Under [place] statutes, his brother, Randy, would be his legal proxy for healthcare decision- making. Randy has accepted this role. Ethical issues impacting care: Patient is currently incapacitated to make his own health care decisions. He is unlikely to gain capacity to do so in the near future, if at all. . Important Contacts * Randy Gonzalez (brother and health care proxy) [phone] . Prognosis Mr Gonzalez is a 66 y/o male diabetic currently intubated in the ICU with GI bleeding, alcohol induced cirrhosis, renal failure, and encephalopathy of uncertain etiology. He had been suffering from a significant cognitive decline even prior to this hospitalization. The GI bleeding appears to be due to both a gastric ulcer and some small intestinal bleeding. He has received 16 units of PRBCs since admission. It is not certain that the bleeding has completely stopped. He is not felt to be a surgical candidate. A significant encephalopathy has persisted and he is remaining minimally responsive off sedating medications. Though there is still a chance that encephalopathy can clear, renal function can improve, bleeding will stop, etc. family remains concerned that they will end up putting this patient through a lot only to have him insist (as he has done int he past) on continuing drinking and only to be angry about ongoing cognitive decline and dependence. They are actively considering withdrawal of life support as the way of best honoring the patient's goals/preferences. . Code Status: Alternative Code (Intubation and ACLS drugs only. NO chest compressions or shock.) Plan == Code Status: ALTERNATE CODE ( NO SHOCK, NO CHEST COMPRESSIONS -- ok for intubation and ACLS drugs) == Decision making: Patient is incapacitated to make his own health care decisions and it is currently appearing unlikely that he will regain capacity. He has no spouse, no children, no surviving parents. He has one surviving brother -- Randy Gonzalez -- who is local and is the appropriate health care proxy. == Goals or medical treatment: The proxy is still weighing options. The proxy knows the patient would not cooperate with rehab and would not want to stop drinking. He also knows that the patient has been having a significant cognitive decline even before this illness and is reluctant to put his brother through a lot more aggressive care where success might mean survival in a nursing facility with dependence and cognitive impairment. Proxy is discussion option of withdrawal of life support with other close friends of patient. == Pain: Patient's primary pre-hospital pain syndrome was his knee. Other sources of pain currently could include prolonged bedbound status; orotracheal and sanna-gastic intubations; extremity and scrotal edema; restraints; kaur catheter; and vascular access lines. Uncertain if patient is able to demonstrate if/when he has pain. We'll need to monitor carefully. No orders for opiates at this time. Agree to try and hold sedating medications until we better understand the patient's encephalopathy. == Encephalopathy: Patient has remained obtunded even off sedation. Cause is uncertain. Possibly a multi-factorial hypoactive delirium / metabolic encephalopathy. Critical care team is considering brain imaging if obtundation does not improve off sedation. == Dyspnea: Currently controlled on ventilator. Currently tolerating CPAP. Patient has long history of asthma requiring approximately 2 puffs on an albuterol inhaler daily at baseline. == Edema: Patient is currently on Bumex tonight. Nephrology is monitoring carefully. Patient is quite edematous. We want to get this fluid off and continue with reasonable urine output without negatively impacting kidney function. == Palliative care will continue to follow to assist with symptom management and to further clarify goals of medical treatment as the clinical course evolves. I anticipate that family members will let us know regarding pursuing ongoing aggressive care versus considering withdrawal of life support over the next couple of days. . Time Spent Total Floor Time (mins): 90 (Total time included chart review; patient examination; collaboration with primary nurse; and above referenced family conference.) Face to Face Time (mins): 10 >50% Counseling/Coord of Care: Yes Thank you for the opportunity to participate in the care of Mr. Gonzalez. . Attestation To help prompt me to consider important information that might be impacting today's encounter and assessment, information from prior notes written by myself or my colleagues may have been "brought forward" into today's note. My signature on this note, however, is an attestation that I personally performed the exam, history, and/or decision-making noted today, and, unless otherwise indicated, the interactions with patient, family, and staff as well as the review of records all occurred today. I also attest that the listed assessment and stated plan reflect my best clinical judgment today based on the combination of historical information, prior notes, and today's exam/ interactions. When time spent is documented, it refers only to time spent today by the signer, or if indicated, combined time spent today by collaborating physician/nurse practitioner. . Rod Erazo MD May 25, 2016 13:09
--- NOTE | 2016-05-25 15:13 | HHI.NPPN ---
Subjective History of Present Illness The aptient is a 65 yo [place] male who presented to this facility on 05/14 with complaints of continued L knee pain. Pt lethargic and not providing me with any information. Family not present. Information obtained from previous medical record. Was seen at [facility] ED on 05/11 with same complaint and was suspected at that point that he had septic arthritis and was prescribed Ibuprofen and Clindamycin. He has a PMHx of osteomyelitis with R great toe amputation in the past. It does not appear that he has any PMHx of CKD, but last labs that I see are from 2014. SCr baseline at that time as 0.8-0.9. Admitting SCr 5.38 at that improved slightly to 5.28 at consult. Interval History Patient still intubated on ventilator. Sedation apparently withdrawn and the patient is still unresponsive to questions and simple commands. Review of Systems General General Remarks Unobtainable today. Objective Data Data 05/24/16 05/25/16 19:00 07:00 Intake Total 1412 ml 1566 ml Output Total 800 ml 3025 ml Balance 612 ml -1459 ml Intake Oral 0 ml IV Total 1182 ml 1104 ml Tube Feeding 230 ml 462 ml Output Urine Total 800 ml 3025 ml # Bowel Movements 0 Vital Signs Date Time Temp Pulse Resp B/P Pulse Ox O2 Delivery O2 Flow Rate FiO2 05/25/16 14:00 71 05/25/16 12:00 30 05/25/16 12:00 99.3 74 22 138/65 97 05/25/16 12:00 72 05/25/16 11:55 96 30 05/25/16 10:00 74 05/25/16 09:32 30 05/25/16 08:23 94 30 05/25/16 08:00 73 05/25/16 08:00 99.2 73 25 133/61 97 05/25/16 08:00 30 05/25/16 06:00 73 05/25/16 04:13 100 30 05/25/16 04:00 30 05/25/16 04:00 98.2 73 26 126/60 95 05/25/16 04:00 73 05/25/16 02:00 71 05/25/16 00:03 95 30 05/25/16 00:00 30 05/25/16 00:00 68 05/25/16 00:00 98.2 68 21 121/57 05/24/16 22:00 69 05/24/16 20:00 65 05/24/16 20:00 30 05/24/16 20:00 98.9 65 19 115/58 95 05/24/16 19:47 95 30 05/24/16 18:00 66 05/24/16 16:00 65 05/24/16 16:00 30 05/24/16 16:00 98.0 65 16 104/51 95 -: 05/25/16 0350 05/25/16 0350 Physical Exam General Appearance: No Acute Distress, Comfortable Eyes Eye Exam: Sclera White Pulmonary Resp Exam: Clear Bilaterally, Breath Sounds Equal, No Distress Cardiology CV Exam: Regular, Normal Sinus Rhythm, Good Perfusion Gastrointestinal/Abdomen GI Exam: Soft, Non-Tender Integumentary Skin Exam: Clear, Warm Extremeties Extremities Exam: Moderate Edema (upper and lower extremities), Pitting Edema Neurologic Neuro Exam: Sedated Assessment/Plan Discussed Condition With: Patient Problem List: (1) Acute renal failure Plan: Patient's creatinine level and urine output has improved significantly since yesterday. Patient still has significant generalized edema. Continue diuretics as ordered. Agree with addition of free water via feeding tube. No indication to initiate dialysis at this time. Reevaluate daily. . Medications should be adjusted for the patient's renal dysfunction. Avoid nephrotoxic agents such as iodinated contrast and NSAIDs. Avoid gadolinium when eGFR <30 (2) Acidosis Plan: Improved. Monitor (3) Anemia Plan: Endoscopy report reviewed. Apparently evidence of GI bleed with large duodenal ulcer. Serology negative (4) Diabetes mellitus Plan: Mgmt as per primary team (5) Pain of left calf Plan: Potential muscle tear versus strain as per imaging studies. No evidence of DVT (6) Cirrhosis Plan: Suggested by imaging reports. Problem Qualifiers (1) Anemia: Qualified Code: D64.9 - Anemia, unspecified type (2) Diabetes mellitus: Qualified Code: E11.8 - Type 2 diabetes mellitus with complication, without long-term current use of insulin (3) Cirrhosis: Qualified Code: K74.60 - Cirrhosis of liver without ascites, unspecified hepatic cirrhosis type Vero Johnson MD May 25, 2016 15:13
[2016-05-25] MEDS ORDERED: OCTREOTIDE INJ 500 MCG in SODIUM CHLORID 0.9% 500 ML INJ 499.5 ML IV SCH (15:54)
--- NOTE | 2016-05-25 17:53 | HHI.GIFU ---
Subjective Remarks Sedated on vent. No active bleeding at this time. (Sumi Sweeney) Objective Vitals I&O Vital Signs Date Time Temp Pulse Resp B/P Pulse Ox O2 Delivery O2 Flow Rate FiO2 05/25/16 16:00 72 05/25/16 16:00 99.2 74 20 145/63 97 05/25/16 16:00 30 05/25/16 15:55 96 30 05/25/16 14:00 71 05/25/16 12:00 30 05/25/16 12:00 99.3 74 22 138/65 97 05/25/16 12:00 72 05/25/16 11:55 96 30 05/25/16 10:00 74 05/25/16 09:32 30 05/25/16 08:23 94 30 05/25/16 08:00 73 05/25/16 08:00 99.2 73 25 133/61 97 05/25/16 08:00 30 05/25/16 06:00 73 05/25/16 04:13 100 30 05/25/16 04:00 30 05/25/16 04:00 98.2 73 26 126/60 95 05/25/16 04:00 73 05/25/16 02:00 71 05/25/16 00:03 95 30 05/25/16 00:00 30 05/25/16 00:00 68 05/25/16 00:00 98.2 68 21 121/57 05/24/16 22:00 69 05/24/16 20:00 65 05/24/16 20:00 30 05/24/16 20:00 98.9 65 19 115/58 95 05/24/16 19:47 95 30 05/24/16 18:00 66 I/O 05/24/16 05/24/16 05/24/16 05/25/16 05/25/16 05/25/16 07:00 15:00 23:00 07:00 15:00 23:00 Intake Total 1488 ml 1412 ml 658 ml 908 ml 760 ml Output Total 1150 ml 800 ml 1575 ml 1450 ml 1850 ml Balance 338 ml 612 ml -917 ml -542 ml -1090 ml Intake Oral 0 ml 0 ml IV Total 1233 ml 1182 ml 427 ml 677 ml Tube Feeding 255 ml 230 ml 231 ml 231 ml 260 ml Other 500 ml Output Urine Total 1150 ml 800 ml 1575 ml 1450 ml 1850 ml # Bowel Movements 0 0 2 Laboratory Laboratory Tests Test 05/25/16 03:50 White Blood Count 7.5 Red Blood Count 2.74 Hemoglobin 8.0 Hematocrit 23.9 Mean Corpuscular Volume 87.4 Mean Corpuscular Hemoglobin 29.4 Mean Corpuscular Hemoglobin 33.6 Concent Red Cell Distribution Width 18.4 Platelet Count 96 Mean Platelet Volume 7.8 Neutrophils (%) (Auto) 78.1 Lymphocytes (%) (Auto) 7.2 Monocytes (%) (Auto) 6.8 Eosinophils (%) (Auto) 7.3 Basophils (%) (Auto) 0.6 Neutrophils # (Auto) 5.9 Lymphocytes # (Auto) 0.5 Monocytes # (Auto) 0.5 Eosinophils # (Auto) 0.6 Basophils # (Auto) 0.0 CBC Comment AUTO DIFF Differential Comment AUTO DIFF CONFIRMED Platelet Estimate LOW Platelet Morphology Comment NORMAL Sodium Level 148 Potassium Level 3.5 Chloride Level 112 Carbon Dioxide Level 21.5 Anion Gap 15 Blood Urea Nitrogen 120 Creatinine 3.77 Estimat Glomerular Filtration 16 Rate Random Glucose 247 Calcium Level 7.5 Total Bilirubin 0.7 Aspartate Amino Transf 45 (AST/SGOT) Alanine Aminotransferase 59 (ALT/SGPT) Alkaline Phosphatase 142 Total Protein 5.8 Albumin 1.3 Imaging Last Impressions Chest X-Ray 05/23/16 0000 Signed Impressions: Service Date/Time: Monday, May 23, 2016 03:26 - CONCLUSION: Tiny bilateral pleural effusions and bibasilar infiltrates. Carroll Joel Jr., MD GI Bleed Scan Nuclear Medicine 05/20/16 0000 Signed Impressions: Service Date/Time: Friday, May 20, 2016 14:25 - CONCLUSION: 1. Positive for gastrointestinal bleed in small bowel, probably at the proximal duodenum. Randy Byrne MD Central Venous Line 05/18/16 0000 Signed Impressions: Service Date/Time: Wednesday, May 18, 2016 00:00 - CONCLUSION: Uncomplicated line placement as above. Wilver Mendoza MD Celiac/Hepatic Arteriogram 05/18/16 0000 Signed Impressions: Service Date/Time: Wednesday, May 18, 2016 16:21 - CONCLUSION: 1. Active bleeding identified off the GDA in the expected location of the duodenum. 2. Successful coil and Gelfoam embolization of the right gastric and GDA as detailed above. Wilver Mendoza MD Renal Ultrasound 05/15/16 Signed Impressions: Service Date/Time: Sunday, May 15, 2016 10:50 - CONCLUSION: 1. Kidneys within normal limits. 2. Findings suggesting cirrhosis and portal venous hypertension with varices and recanalized paraumbilical vein. Get Franco MD Lower Extremity Ultrasound 05/15/16 Signed Impressions: Service Date/Time: Sunday, May 15, 2016 08:41 - CONCLUSION: 1. No evidence of lower extremity DVT on the right or left. 2. Elongated fluid in the proximal to mid left calf. The rectal diagnosis is muscle tear versus dissecting Santo cyst. 3. 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 Get Franco MD Knee MRI 05/15/16 Signed Impressions: Service Date/Time: Sunday, May 15, 2016 16:51 - CONCLUSION: 1. Prominent edema in the medial calf with prominent fluid signal between the medial gastrocnemius and soleus muscles. Differential diagnosis is ruptured Santo cyst versus muscle strain. No fluid-filled gap in muscle fibers is seen. There is also adjacent superficial soft tissue edema in this region. 2. Small horizontal tear of the body of the medial meniscus. 3. Small joint effusion. 4. Mild reactive bony edema in the patella. 5. No evidence of osteomyelitis. 6. Moderate focal medial facet patellar chondromalacia. Get Franco MD Knee X-Ray 05/14/16 Signed Impressions: Service Date/Time: Saturday, May 14, 2016 15:44 - CONCLUSION: Negative for fracture or dislocation. Follow up in 7-10 days is suggested if symptoms persist. Alexy Padron MD FACR Physical Exam HEENT: Normocephalic; atraumatic; no jaundice CHEST: Resp. even/shallow. OETT CARDIAC: Irregular. ABDOMEN: Soft, nondistended, no hepatosplenomegaly; bowel sounds are present in all four quadrants. Tolerating TF EXTREMITIES: Generalized edema. SKIN: Generalized pallor NATURAL RESOURCE ECONOMIST: Sedated on vent. (Sumi Sweeney) Assessment and Plan Plan ASSESSMEN:T - GIB, Melanotic stool. and recent Ibuprofen use. On admission, he was noted to have HH 6.8/20.6. S/P EGD (05/16/16)----> 1. The esophagus appeared normal 2. Large clots in the fundus that obscured this portion of the stomach the rest of the stomach was unremarkable 3. I was only able to advance the scope into the duodenal bulb I was not able to make the sweep into the second portion of the duodenum due to a large clot that obscured vision and there was a large ulcer in the duodenal bulb 4. Large non-bleeding ulcer was found in the duodenal bulb 5. Normal endoscopy otherwise 6. Retroflexed views revealed large clots the obscured vision of the fundus. Rpt EGD (05/18/16)----> 1. Normal endoscopy otherwise 2. Multiple large ulcers were found in the duodenal bulb and 2nd part duodenum; cautery was applied to the sites for 5 secs; with complete hemostasis achieved; Submucosal injection of 10ml of epinephrine 1:10,000 was performed around the bleeding site 3. Retroflexed views revealed no abnormalities. Continued to have bleeding and therefore went to IR (05/19/16)----> active bleed from GDA, s/p coil and gelfoam embolization. S/P GS evaluation- no plans for surgical intervention. Rpt EGD (05/22/16)---> duodenitis, large duodenal ulcer- but no active bleed. Pt is not currently having any active bleeding at this time. No active bleeding. H/H 8.0/23.9. - Anemia, acute blood loss. S/P 16 units PRBC, 2 units FFP, 1plt. H/H 8.0/ 23.9. - Multiple large duodenal bulb and duodenal ulcers. S/P endoscopic tx, embolization. - Elevated LFT. He has a hx of heavy alcohol use. Hepatitis negative, KRYSTLE negative, AMSA negative, AMA neg, AFP 1.6, Ceruloplasmin 35, Alpha 1 Antitrypsin 365. Ferritin 582, Iron Saturation 60.5. - JOSE. Creat 3.77. Renal following. - Left knee pain with elevated ESR at >140 and CRP at 26.40. Orthopaedics are following and the workup is in progress. - Metabolic encephalopathy. Will check ammonia, but this may also be related to his acute renal failure. PLAN: - TF as tolerated - D/C Protonix Gtt - D/C Octreotide Gtt - Protonix 40mg IV BID - Monitor HH - Transfuse as necessary - Supportive care - GI will sign off, please reconsult as needed - Pt seen and examined by Dr. Mejía and myself and this note is written on his behalf (Sumi Sweeney) Physician Comments Seen and examined with BLOCK HACKER, no bleeding now for 48 hours. Dc octreotide. TF as tolerated. Gi will sign off, reconsult as needed. Thank you (Rosaura Mejía MD) Sumi Sweeney May 25, 2016 17:53 Rosaura Mejía MD May 25, 2016 19:37
[2016-05-25] MEDS: PANTOPRAZOLE SODIUM 40 MG VIAL IV PUSH SCH (18:14)
[2016-05-25] MEDS: BUDESONIDE-FORMOTEROL 80/4.5 MCG INHALER INH SCH ×2 (20:00→21:00)
[2016-05-26] VITALS (17 sets, daily range): BP systolic 117–146; BP diastolic 58–66; PULSE 70–76; RESP 16–21; TEMP 98.1–99.1; O2SAT 95–97
[2016-05-26] MEDS: INSULIN NovoLIN REGULAR SUPPLEMENTAL SCALE SQ SCH ×4 (02:00→20:43)
[2016-05-26 05:02] LABS: BASOPHIL % 0.5 % (0.0-2.0); EOSINOPHIL # 0.6 TH/MM3 (0-0.4); EOSINOPHIL % 7.2 % (0.0-4.0); HEMATOCRIT 25.1 % (39.0-51.0); LYMPH % 9.2 % (9.0-44.0); LYMPHOCYTE # 0.7 TH/MM3 (1.0-4.8); MEAN CELL VOLUME 86.8 FL (80.0-100.0); MEAN CORPUSCULAR HEMOGLOBIN 28.9 PG (27.0-34.0); MEAN CORPUSCULAR HGB CONC 33.3 % (32.0-36.0); MONO % 6.3 % (0.0-8.0); NEUT % 76.8 % (16.0-70.0); PLATELET COUNT 94 TH/MM3 (150-450); RED BLOOD COUNT 2.89 MIL/MM3 (4.50-5.90); RED CELL DISTRIBUTION WIDTH 18.7 % (11.6-17.2); WHITE BLOOD COUNT 7.8 TH/MM3 (4.0-11.0)
[2016-05-26 05:10] LABS: ALT (GPT) 46 U/L (12-78); ANION GAP 12 MEQ/L (5-15); AST (GOT) 43 U/L (15-37); BICARBONATE 25.9 MEQ/L (21.0-32.0); CHLORIDE 109 MEQ/L (98-107); GLOMERULAR FILTRATION RATE 18 ML/MIN (>89); SODIUM (NA) 147 MEQ/L (136-145)
[2016-05-26 05:15] LABS: ALKALINE PHOSPHATASE 153 U/L (45-117); BLOOD UREA NITROGEN 113 MG/DL (7-18); TOTAL BILIRUBIN ADULT 0.8 MG/DL (0.2-1.0)
[2016-05-26 05:16] LABS: HEMO FLAGS AUTO DIFF
[2016-05-26] MEDS: PANTOPRAZOLE SODIUM 40 MG VIAL IV PUSH SCH ×2 (05:48→17:38)
[2016-05-26] MEDS: FREE WATER G-TUBE SCH ×3 (05:49→20:44)
[2016-05-26] MEDS: SODIUM BICARBONATE 650 MG TAB PO SCH ×3 (05:49→20:50)
--- NOTE | 2016-05-26 08:16 | HHI.FPPN ---
Subjective Remarks Pt seen and examined this morning. No acute events overnight. Pt remains intubated, ventilator with PEEP of 5, FiO2 of 30%. Able to open eyes, does not respond to commands. BUN and creatinine downtrending, 113 and 3.45 respectively. Pt tolerated CPAP trial yesterday. Code status has been updated per palliative. (Hu Flood MD R2) Objective Vitals Vital Signs Date Time Temp Pulse Resp B/P Pulse Ox O2 Delivery O2 Flow Rate FiO2 05/26/16 07:28 97 30 05/26/16 06:00 74 05/26/16 04:00 30 05/26/16 04:00 99.1 76 16 146/64 96 05/26/16 04:00 76 05/26/16 03:51 97 30 05/26/16 02:00 75 05/26/16 00:00 74 05/26/16 00:00 30 05/26/16 00:00 98.1 74 18 136/64 95 05/25/16 23:50 96 30 05/25/16 22:00 74 05/25/16 20:39 98 30 05/25/16 20:00 99.1 75 21 157/68 98 05/25/16 20:00 75 05/25/16 20:00 30 05/25/16 18:00 75 05/25/16 16:00 72 05/25/16 16:00 99.2 74 20 145/63 97 05/25/16 16:00 30 05/25/16 15:55 96 30 05/25/16 14:00 71 05/25/16 12:00 30 05/25/16 12:00 99.3 74 22 138/65 97 05/25/16 12:00 72 05/25/16 11:55 96 30 05/25/16 10:00 74 05/25/16 09:32 30 05/25/16 08:23 94 30 I/O 05/25/16 05/25/16 05/25/16 05/26/16 05/26/16 05/26/16 07:00 15:00 23:00 07:00 15:00 23:00 Intake Total 908 ml 760 ml 709 ml 415 ml Output Total 1450 ml 1850 ml 2850 ml 1950 ml Balance -542 ml -1090 ml -2141 ml -1535 ml Intake Oral 0 ml IV Total 677 ml 246 ml 5 ml Tube Feeding 231 ml 260 ml 213 ml 210 ml Other 500 ml 250 ml 200 ml Output Urine Total 1450 ml 1850 ml 2850 ml 1950 ml # Bowel Movements 2 (Hu Flood MD R2) Result Diagram: 05/26/1641905/26/16419 Objective Remarks GEN: Well-developed, well-nourished patient 66-year-old male lying in bed intubated and sedated. CV: Regular rate and rhythm without obvious murmurs LUNGS: Clear to anterior auscultation bilaterally. Audible upper airway sounds. EXT: 1+ edema of legs to upper thigh and 1+ edema of hands, improving. NEURO/PSYCH: Intubated, sedated. (Hu Flood MD R2) Date of Insertion: May 18, 2016 Line: Central Venous Catheter Side: Right Location: Internal, Jugular (Hu Flood MD R2) A/P Assessment and Plan 65 y/o male with history of DM and osteomyelitis presents with left leg pain as well as GI bleed, diabetes mellitus. Admitted for anemia, JOSE and left knee pain. sdw: Dr. Real wdw: Dr. Farley Discharge Planning Unclear, pending critical care course (Hu Flood MD R2) Attending Attestation Patient seen and examined. Case reviewed and discussed with the resident team. Agree with plan of care as discussed with me and documented in the resident note. (Chapis Farley MD) Problem List: (1) Acute encephalopathy Status: Acute Plan: Unclear etiology. DDx: delirium, alcohol withdrawal, metabolic encephalopathy, uremia Ammonia elevated to 57 on 05/24 -Critical care consulted: appreciate recs -Pt intubated 05/17 due to lethargy and airway protection -Pt underwent CPAP trial 05/25, possible extubation later today Abx: Rocephin 1 g IV qd (05/19 - ) (2) JOSE (acute kidney injury) Status: Acute Plan: Ddx includes pre-renal (dehydration/hypovolemia) vs renal (ATN). Concern for underlying CKD. Associated with decreased eating and drinking prior to presentation. Baseline Cr is 0.83 from 2 years ago, admission Cr is 5.38. Pre- sedation confusion likely due to uremia. -Renal function improving, reassuring. JOSE likely due to hypotension vs IV contrast for arterial embolization for evaluation fo GI bleed. -Strict I/Os Nephrology consulted: appreciate recommendations * IV Diuril BID * Sodium bicarbonate PO Q8hrs * Bumex 2mg IV Q8hrs * Renal function improving, however BUN and creatinine remains elevated; family does not want dialysis * Avoid nephrotoxic agents Imaging: * Renal US: Kidneys unremarkable. Finding suggesting cirrhosis and portal venous HTN with varices and recanalized paraumbilical vein. (3) Anemia Status: Acute Plan: No history of ulcers or blood thinners. Has some recent NSAID use and history of alcohol abuse. DDx: gastric/duodenal ulcer, esophageal varices, diverticulosis, colorectal cancer, polyps, IBD, hemorrhoids.H/H on admission was 6.8/20.6. Admission BUN/Cr ratio 19, suggestive of upper GI bleed. S/p transfusion on 05/19 due to hemoglobin remaining low at 7.4 Echo: EF 45-50%, mild MR, mild TR -Hemoccult in ED positive. -H&H monitored; Transfuse as needed GI consulted and have signed off: appreciate recommendations * s/p EGD 05/16 - Large clots in fundus, non-bleeding ulcer in duodenal bulb. Normal esophagus * Repeat EGD 05/18 - duodenal ulcers with visible vessels, cauterized -s/p arteriogram with coli and embolization of right gastric and GDA (05/18 ) * Repeat EGD 05/22 - large duodenal ulcers with no active bleeding * Liver serologies negative Gen surgery consulted-appreciate recs: Do not recommend surgery, operative mortality approaching 100% Medications: * Protonix 40mg IV BID * Hold all anticoagulation (Coumadin, Plavix, Aspirin) (4) Atrial fibrillation Status: Acute Plan: Pt developed Afib with RVR. No history of Afib per patient. Given lopressor, cardizem. S/p cardizem infusion 05/17. Holding chemo ppx due to GI bleed -Amiodarone 400mg po Q12hrs -Continue to monitor tele, heart rate (5) Diabetes mellitus Status: Acute Plan: Hold home metformin and glipizide. A1c of 6.1, could be falsely low due to blood loss anemia. Bedside glucose in the 200s -Low-dose sliding scale -Levemir 5units Q12hrs (6) Cirrhosis Status: Acute Plan: Significant alcohol history. Denies alcohol withdrawals. No seizures in past. Cirrhosis seen on Renal US with evident of portal venous HTN with varices. Hepatitis panel negative. -See Ammonia above -No signs of withdrawal (7) Asthma Status: Chronic Plan: -Albuterol PRN (8) Knee pain, acute Status: Acute Plan: Likely due to muscle tear and/or Santo cyst rupture contributing to pain and associated edema. -Ortho consulted: Appreciate recommendations. Does not look like septic joint because there is no significant effusion. -S/p antibiotics (Vanc 05/14-; Linezolid 05/15-05/16; Cefepime 05/14-05/16) ( Rocephin 05/19- ) -Pain control with Tylenol PO/IV to not exceed 3000mg -Would benefit for PT once acute pain and mental status improves. Imaging: * MRI: Prominent edema in the medial calf with prominent fluid signal between the medial gastrocnemius and soleus muscles. DDX is ruptured Santo cyst versus muscle strain. Small joint effusion. No evidence of osteomyelitis. * LE ultrasound: No evidence of DVT. Elongated fluid in the proximal to mid left calf. DDX is muscle tear versus dissecting Santo cyst. 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 * Left knee XR: Negative for fracture or dislocation (9) FEN Status: Acute Plan: Fluids: Holding, diuresing Electrolytes: Sodium slightly elevated at 147. Continue to monitor. Nutrition: Tube feeds DVT ppx: SCDs/TEDs, chemoprophylaxis contraindicated due to GI bleed GI ppx: Protonix gtt (Hu Flood MD R2) Problem Qualifiers (1) Anemia: Qualified Code: D64.9 - Anemia, unspecified type (2) Atrial fibrillation: Qualified Code: I48.0 - Paroxysmal atrial fibrillation (3) Diabetes mellitus: Qualified Code: E11.8 - Type 2 diabetes mellitus with complication, without long-term current use of insulin (4) Cirrhosis: Qualified Code: K74.60 - Cirrhosis of liver without ascites, unspecified hepatic cirrhosis type (5) Asthma: Qualified Code: J45.909 - Uncomplicated asthma, unspecified asthma severity (6) Knee pain, acute: Qualified Code: M25.562 - Acute pain of left knee Hu Flood MD R2 May 26, 2016 08:16 Chapis Farley MD May 28, 2016 11:54 Hu Flood MD R2 May 26, 2016 08:16
[2016-05-26] MEDS: THIAMINE HCL 100 MG TAB PO SCH (08:45)
[2016-05-26] MEDS: INSULIN DETEMIR 100 UNITS/ML VIAL SQ SCH ×2 (08:45→20:44)
[2016-05-26] MEDS: cefTRIAXone INJ 1,000 MG in SODIUM CHLORIDE 0.9% INJ 100 ML IV SCH (08:45)
[2016-05-26] MEDS: CHLORHEXIDINE 0.12% (ORAL KIT) 15 ML CUP MT SCH ×2 (08:48→20:42)
[2016-05-26] MEDS: ARTIFICIAL TEARS OPTH SOLN 15 ML BTL EACH EYE SCH ×2 (08:49→20:43)
[2016-05-26] MEDS: BUDESONIDE-FORMOTEROL 80/4.5 MCG INHALER INH SCH ×2 (09:00→20:55)
--- NOTE | 2016-05-26 10:01 | HHI.CCPN ---
Subjective Remarks/Hospital Course Patient is a 65-year-old male with past medical history significant for type 2 diabetes, asthma and history of alcohol dependence who presents to the emergency department on 05/14/73 for evaluation of left knee pain. His workup revealed he had a elevated ESR at >140 and CRP at 26.40. Orthopaedics Dr. Bolaños. MRI did not show any evidence of infection. She was also found to be anemic with Hemoccult positive hemoglobin 6.8 and GI was consulted. Patient' s baseline creatinine is not known but he presented with BUN of 103 creatinine 5.39. Since admission patient received a total of 2 units PRBC. He underwent EGD yesterday and there was a lot of clot in the stomach. Evaluation of stomach was impossible due to large amount of blood. Dr. Muse was able to visualize a large duodenal ulcer which was not actively bleeding at that time. According to him he plan to redo the EGD tomorrow 05/18/16. Post EGD patient was transferred to the ICU yesterday evening due to high risk of recurrent bleed , need for possible IR embolization. According to the notes patient has not been recently drinking but was taking Ibuprofen 800mg po TID at home on the pain. Today regarding critical care medicine was consulted for altered mentation and A. fib with RVR. On my evaluation patient with very lethargic hardly wakes up able to state his name but very slurred speech. An ammonia level checked was normal. Patient received last dose of Ativan around 10 AM. My discussion with Dr. Muse he is planning to do endoscopy EGD again tomorrow. Because of questionable airway protection, GCS about 8 and upper GIB and this will also facilitate bedside EGD tomorrow 05/18 Patient is sedated with Diprivan and intubated. On Protonix and bicarb drips. Afebrile. For EGD today. 05/19 Patient s/p EGD yesterday with showed multiple duodenal ulcers with visible vessel s/p EPi injection and cauterization. Late afternoon yesterday became rebled became hypotensive and started on Levophed now 7 mics. He was given 4 units PRBC for Hgb 5.6 underwent arteriogram with coil and embolization of right gastric and GDA. Given additional 1unit PRBC, 2u FFP and 1u PLT overnight. Hgb 7.4 this morning from 10.1 last night. Placed on Amio drip overnight sedated with Diprivan. 05/20 Patient remains intubated and and sedated with Diprivan on Amio drip. Renal function worse today with Cr: 3.43 from 2.86 and UO: 475 ml in 24 hrs. Hgb 7.7 this morning s/p transfusion 2units PRBC yesterday. 05/21 Patient remains sedated with Diprivan and intubated. Tolerated CPAP for all day yesterday. Bleeding scan was positive for GI bleed in small bowel ( proximal Duodenum) Received total 3 units PRBC since yesterday and 1unit PLT. Hgb 9.2 this morning. Renal function is worse with Cr: 3.81 from 3.43 with UO:700ml in 24hrs. Patient went into Afib with RVR and placed on Amio drip. 05/22 Patient remains sedated with Diprivan and intubated. For repeat EGD today. On Sandostatin, Protonix and Amio drips. H/H stable. Renal function similar to yesterday with Cr: 3.80 however his UO is overall better- 2L in 24 hrs. 05/23: Drowsy off sedation, remains orally intubated on mechanical ventilation. 05/24: Currently on sedation vacation. Remains orally intubated on mechanical ventilation. Not arousable. No acute events overnight. Cr remains elevated to 3.88; adequate UOP 2300 cc over past 24 hours. 05/25 Patient remains sedated with Diprivan and intubated. On Sandostatin and Protonix drips. Afebrile. 05/26 : Tmax 99.3. This a.m. Protonix, octreotide infusions discontinued, GI service signed off. The patient was able to tolerate CPAP trials for greater than 8 hours yesterday. CPAP trials initiated this a.m. with plans for possible extubation. The patient continues aggressive diuresis greater than 3 L off the last 24 hours. Objective Vital Signs Date Time Temp Pulse Resp B/P Pulse Ox O2 Delivery O2 Flow Rate FiO2 05/26/16 07:28 97 30 05/26/16 06:00 74 05/26/16 04:00 99.1 16 146/64 Intake and Output 05/25/16 05/25/16 05/26/16 08:00 16:00 00:00 Intake Total 908 ml 760 ml 709 ml Output Total 1450 ml 1850 ml 2850 ml Balance -542 ml -1090 ml -2141 ml Result Diagram: 05/26/16 0420 05/26/16 0420 Imaging Last Impressions Chest X-Ray 05/23/16 0000 Signed Impressions: Service Date/Time: Monday, May 23, 2016 03:26 - CONCLUSION: Tiny bilateral pleural effusions and bibasilar infiltrates. Carroll Joel Jr., MD GI Bleed Scan Nuclear Medicine 05/20/16 0000 Signed Impressions: Service Date/Time: Friday, May 20, 2016 14:25 - CONCLUSION: 1. Positive for gastrointestinal bleed in small bowel, probably at the proximal duodenum. Randy Byrne MD Central Venous Line 05/18/16 0000 Signed Impressions: Service Date/Time: Wednesday, May 18, 2016 00:00 - CONCLUSION: Uncomplicated line placement as above. Wilver Mendoza MD Celiac/Hepatic Arteriogram 05/18/16 0000 Signed Impressions: Service Date/Time: Wednesday, May 18, 2016 16:21 - CONCLUSION: 1. Active bleeding identified off the GDA in the expected location of the duodenum. 2. Successful coil and Gelfoam embolization of the right gastric and GDA as detailed above. Wilver Mendoza MD Renal Ultrasound 05/15/16 0000 Signed Impressions: Service Date/Time: Sunday, May 15, 2016 10:50 - CONCLUSION: 1. Kidneys within normal limits. 2. Findings suggesting cirrhosis and portal venous hypertension with varices and recanalized paraumbilical vein. Get Franco MD Lower Extremity Ultrasound 05/15/16 0000 Signed Impressions: Service Date/Time: Sunday, May 15, 2016 08:41 - CONCLUSION: 1. No evidence of lower extremity DVT on the right or left. 2. Elongated fluid in the proximal to mid left calf. The rectal diagnosis is muscle tear versus dissecting Santo cyst. 3. 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 Get Franco MD Knee MRI 05/15/16 0000 Signed Impressions: Service Date/Time: Sunday, May 15, 2016 16:51 - CONCLUSION: 1. Prominent edema in the medial calf with prominent fluid signal between the medial gastrocnemius and soleus muscles. Differential diagnosis is ruptured Santo cyst versus muscle strain. No fluid-filled gap in muscle fibers is seen. There is also adjacent superficial soft tissue edema in this region. 2. Small horizontal tear of the body of the medial meniscus. 3. Small joint effusion. 4. Mild reactive bony edema in the patella. 5. No evidence of osteomyelitis. 6. Moderate focal medial facet patellar chondromalacia. Get Franco MD Knee X-Ray 05/14/16 0000 Signed Impressions: Service Date/Time: Saturday, May 14, 2016 15:44 - CONCLUSION: Negative for fracture or dislocation. Follow up in 7-10 days is suggested if symptoms persist. Alexy Padron MD FACR Objective Remarks GENERAL: Patient is 66 yo intubated but responding to commands SKIN: Warm and dry. HEAD: Normocephalic. EYES: No scleral icterus. No injection or drainage. NECK: Supple, trachea midline. No JVD or lymphadenopathy. Orotracheally intubated. CARDIOVASCULAR: Regular rate and rhythm without murmurs, gallops, or rubs. RESPIRATORY: Breath sounds equal bilaterally. No accessory muscle use. GASTROINTESTINAL: Abdomen soft, non-tender, nondistended. MUSCULOSKELETAL: No cyanosis, or edema. Neuro: GCS 11 T, patient currently on CPAP trials responding to commands Urinary Catheter: Yes Donaldson insert reason: Measure Accurate Output Vascular Central Line Catheter: Yes Date of Insertion: May 18, 2016 Line: Central Venous Catheter Side: Right Location: Internal, Jugular A/P Assessment and Plan NEURO: Acute encephalopathy Alcohol dependence -On Diprivan infusion for sedation. Daily sedation vacation -GCS 11 T, follows commands currently on propofol 5 mcgs -Discontinue Ativan, supplement thiamine and multivitamin -Avoid any sedatives and long-acting narcotics -If patient displays symptoms of alcohol withdrawal consider Haldol/Ativan/ Precedex RESP: Respiratory insufficiency History of asthma -Continue with vent support keep sat >92% -DuoNeb every 6 hours and when necessary, ventilator bundle -Continue CPAP trials, currently , will obtain SBT for plans of extubation CV: Atrial fibrillation with rapid ventricular response -Monitor HR and BP keep MAP>65mmHg. -Currently normal sinus rhythm -Amiodarone 400mg Q12, -Echo 05/17: EF 45-50%, no RWMA GI/HEME: Upper GI bleed/large duodenal ulcer-resolved Severe anemia requiring transfusion Liver cirrhosis -s/p Arteriogram with coli and embolization of right gastric and GDA 05/18 Bleeding scan positive for GI bleed in small bowel probably in proximal Jejunum 05/20 Thrombocytopenia -IV Protonix and Sandostatin drips, s/p EGD 05/22: multiple duodenal ulcers, no active bleeding-discontinued 05/26/16 -Consider transitioning Protonix drip to BID following discussion with GI -Monitor CBC Keep Hgb >8, platelet count 94 continue to monitor -Surgery is following- Dr. Novak- patient is high risk for surgery. -s/p repeat EGD 05/18 which showed duodenal ulcers with visible vessels s/p Epi injection and cauterization -EGD 05/16/16 shows large duodenal ulcer. Unable to visualize most of stomach and duodenum due to large amount of clot present -s/p transfusion 2units PRBC 05/19 -Continue tube feeds with Nepro at 30 cc/hr -Received 16 units PRBC since admission, 2u FFP, 2u PLT -Tube feeds Nepro at goal : Acute kidney failure Hypernatremia -Monitor renal function, I/O's, avoid nephrotoxins. - Cr: 3.77->3.94-> 3.45 todaywith UO:> 3000 ml in 24 hrs -On PO bicarb 650mg Q8, on Bumex 2mg IV q8h -Place on Free water 250ml Q8 monitor sodium level. -Nephrology Dr. Johnson is following ID: -Continue empiric abx (Rocephin started on 05/19; will complete a 7-day course and consider discontinuing). Monitor for signs of infection (Fever, WBC) culture if spikes fever. 05/14 BC: No growth 05/14 sputum cx: No growth 05/14, 05/17 urine cx: No growth ENDO: -SSI (medium scale) , add Levemir insulin 5units BID for glycemic control PROPH: -Bilateral lower extremity SCDs. Will begin Protonix BID, infusion discontinued LINES: -Utilize peripheral IVs, Right IJ CVP placed 05/18 This patient remains critically ill with one or more organ systems which are or may become a threat to life. I have spent in excess of 35 minutes discontinuously in the care and management of this patient. This time is exclusive of procedures, and includes, but is not limited to, evaluation of the patient, review of the medical record, discussions with family, consultants, nursing staff, or respiratory therapy, and documentation in the medical record. Physician Judy Heath MD May 26, 2016 10:01 Judy Oquendo MD May 26, 2016 10:01
[2016-05-26] MEDS: SODIUM CHLORIDE 0.9% FLUSH 10 ML FLUSH IV FLUSH SCH ×2 (10:53→20:44)
[2016-05-26] MEDS: SODIUM CHLORIDE 0.9% FLUSH 10 ML FLUSH IVF SCH (10:53)
[2016-05-26] MEDS: NYSTATIN 100,000 U/GM PWD 15 GM BTL TOPICAL SCH ×2 (10:55→20:44)
[2016-05-26] MEDS ORDERED: POTASSIUM CHLORIDE 25 MEQ EFFERVESCENT TAB PO ONE (11:00)
[2016-05-26 11:02] LABS: PLATELET ESTIMATE SMEAR LOW (NORMAL); PLATELET MORPHOLOGY NORMAL (NORMAL); SCAN/DIFF AUTO DIFF CONFIRMED
[2016-05-26] MEDS: RESP: ALBUTEROL 2.5 MG/3 ML NEB (PRN) NEB (12:08)
[2016-05-26] MEDS: AMIODARONE 200 MG TAB PO SCH (12:18)
[2016-05-26] MEDS: CHLOROTHIAZIDE SOD 500 MG VIAL IV SCH (12:19)
[2016-05-26] MEDS: PROPOFOL 1000 MG/100 ML INJ 100 ML IV SCH (13:36)
[2016-05-26] MEDS: BUMETANIDE INJ 1 MG/4 ML VIAL IV PUSH SCH ×2 (15:40→20:47)
--- NOTE | 2016-05-26 16:46 | HHI.NPPN ---
Subjective History of Present Illness The aptient is a 65 yo [place] male who presented to this facility on 05/14 with complaints of continued L knee pain. Pt lethargic and not providing me with any information. Family not present. Information obtained from previous medical record. Was seen at [facility] ED on 05/11 with same complaint and was suspected at that point that he had septic arthritis and was prescribed Ibuprofen and Clindamycin. He has a PMHx of osteomyelitis with R great toe amputation in the past. It does not appear that he has any PMHx of CKD, but last labs that I see are from 2014. SCr baseline at that time as 0.8-0.9. Admitting SCr 5.38 at that improved slightly to 5.28 at consult. Interval History Patient remains ventilatory dependent. Attempts being made to wean. Review of Systems General General Remarks Unobtainable today. Objective Data Data 05/25/16 05/26/16 19:00 07:00 Intake Total 1002 ml 882 ml Output Total 3450 ml 3200 ml Balance -2448 ml -2318 ml Intake Oral 0 ml IV Total 242 ml 9 ml Tube Feeding 260 ml 423 ml Other 500 ml 450 ml Output Urine Total 3450 ml 3200 ml # Bowel Movements 2 Vital Signs Date Time Temp Pulse Resp B/P Pulse Ox O2 Delivery O2 Flow Rate FiO2 05/26/16 16:04 30 05/26/16 16:00 70 05/26/16 15:22 96 35 05/26/16 14:00 70 05/26/16 12:05 96 30 05/26/16 12:00 71 05/26/16 12:00 30 05/26/16 12:00 98.7 71 21 143/66 95 05/26/16 10:00 74 05/26/16 08:45 30 05/26/16 08:00 30 05/26/16 08:00 99.0 74 20 135/64 97 05/26/16 08:00 74 05/26/16 07:28 97 30 05/26/16 06:00 74 05/26/16 04:00 30 05/26/16 04:00 99.1 76 16 146/64 96 05/26/16 04:00 76 05/26/16 03:51 97 30 05/26/16 02:00 75 05/26/16 00:00 74 05/26/16 00:00 30 05/26/16 00:00 98.1 74 18 136/64 95 05/25/16 23:50 96 30 05/25/16 22:00 74 05/25/16 20:39 98 30 05/25/16 20:00 99.1 75 21 157/68 98 05/25/16 20:00 75 05/25/16 20:00 30 05/25/16 18:00 75 -: 05/26/16 0420 05/26/16 1430 Physical Exam General Appearance: No Acute Distress, Comfortable Eyes Eye Exam: Sclera White Pulmonary Resp Exam: Clear Bilaterally, Breath Sounds Equal, No Distress Cardiology CV Exam: Regular, Normal Sinus Rhythm, Good Perfusion Gastrointestinal/Abdomen GI Exam: Soft, Non-Tender Integumentary Skin Exam: Clear, Warm Extremeties Extremities Exam: Moderate Edema (upper and lower extremities, much improved however.), Pitting Edema Neurologic Neuro Exam: Sedated Assessment/Plan Discussed Condition With: Patient Problem List: (1) Acute renal failure Plan: Significant improvement in urine output and creatinine levels the last 48 hours. Potassium was supplemented. At this point will reduce bumetanide to every 12 hourly as volume status has improved and would like to avoid intravascular volume depletion. Also reduce Diuril to once daily. Discussed with RN. Family apparently does not want to consider dialysis and considering improvement indicated above dialysis does not appear to be indicated. . Medications should be adjusted for the patient's renal dysfunction. Avoid nephrotoxic agents such as iodinated contrast and NSAIDs. Avoid gadolinium when eGFR <30 (2) Acidosis Plan: Improved. Monitor (3) Anemia Plan: Endoscopy report reviewed. Apparently evidence of GI bleed with large duodenal ulcer. Serology negative (4) Diabetes mellitus Plan: Mgmt as per primary team (5) Pain of left calf Plan: Potential muscle tear versus strain as per imaging studies. No evidence of DVT (6) Cirrhosis Plan: Suggested by imaging reports. Problem Qualifiers (1) Anemia: Qualified Code: D64.9 - Anemia, unspecified type (2) Diabetes mellitus: Qualified Code: E11.8 - Type 2 diabetes mellitus with complication, without long-term current use of insulin (3) Cirrhosis: Qualified Code: K74.60 - Cirrhosis of liver without ascites, unspecified hepatic cirrhosis type Vero Johnson MD May 26, 2016 16:46
[2016-05-27] VITALS (18 sets, daily range): BP systolic 108–136; BP diastolic 55–81; PULSE 67–105; RESP 15–24; TEMP 98–98.7; O2SAT 94–100
[2016-05-27] MEDS: AMIODARONE 200 MG TAB PO SCH ×2 (00:40→11:45)
[2016-05-27] MEDS: INSULIN NovoLIN REGULAR SUPPLEMENTAL SCALE SQ SCH ×4 (02:45→20:45)
[2016-05-27 05:44] LABS: BICARBONATE 30.2 MEQ/L (21.0-32.0); MAGNESIUM 1.9 MG/DL (1.5-2.5); POTASSIUM 3.1 MEQ/L (3.5-5.1)
[2016-05-27 05:54] LABS: HEMATOCRIT 24.8 % (39.0-51.0); MEAN CELL VOLUME 87.4 FL (80.0-100.0); MEAN CORPUSCULAR HEMOGLOBIN 29.8 PG (27.0-34.0); MEAN CORPUSCULAR HGB CONC 34.1 % (32.0-36.0); PLATELET COUNT 100 TH/MM3 (150-450); RED BLOOD COUNT 2.84 MIL/MM3 (4.50-5.90); RED CELL DISTRIBUTION WIDTH 19.1 % (11.6-17.2); WHITE BLOOD COUNT 7.2 TH/MM3 (4.0-11.0)
[2016-05-27] MEDS: PANTOPRAZOLE SODIUM 40 MG VIAL IV PUSH SCH ×2 (05:58→17:07)
[2016-05-27] MEDS: FREE WATER G-TUBE SCH ×3 (05:58→20:53)
[2016-05-27] MEDS: SODIUM BICARBONATE 650 MG TAB PO SCH ×3 (05:58→20:52)
[2016-05-27 06:17] LABS: REVIEW FLAG FINAL
--- NOTE | 2016-05-27 06:29 | RADRPT ---
EXAM DATE/TIME: 05/27/2016 04:50 [facility] COMPARISON: CHEST SINGLE AP, May 18, 2016, 18:12. CHEST SINGLE AP, May 23, 2016, 3:26. INDICATIONS : Shortness of breath, possible pulmonary disease. MEDICAL HISTORY : Osteomyelitis. Diabetes mellitus type II. Asthma SURGICAL HISTORY : None. ENCOUNTER: Subsequent ACUITY: 1 week PAIN SCORE: Non-responsive. LOCATION: Bilateral chest FINDINGS: ET tube, NG tube and right internal jugular central line are well placed. The heart size is normal. T here some mild hazy density identified in the bases being worse in the left. There is some silhouetti ng of the left hemidiaphragm. There some questionable asymmetric density in the right apex. CONCLUSION: Hazy density bases being worse on the left representing some consolidation, atelectasis and likely mi ld effusions. Questionable asymmetric density in the right lung apex. This area could be further evaluated with CT examination. Olegario Heart MD on May 27, 2016 at 6:26 Board Certified Radiologist. This report was verified electronically.
[2016-05-27] MEDS: CHLORHEXIDINE 0.12% (ORAL KIT) 15 ML CUP MT SCH ×2 (08:05→21:00)
[2016-05-27] MEDS: NYSTATIN 100,000 U/GM PWD 15 GM BTL TOPICAL SCH ×2 (08:06→20:59)
[2016-05-27] MEDS: cefTRIAXone INJ 1,000 MG in SODIUM CHLORIDE 0.9% INJ 100 ML IV SCH (08:07)
[2016-05-27] MEDS: THIAMINE HCL 100 MG TAB PO SCH (08:09)
[2016-05-27] MEDS: INSULIN DETEMIR 100 UNITS/ML VIAL SQ SCH ×2 (08:09→20:49)
[2016-05-27] MEDS: ARTIFICIAL TEARS OPTH SOLN 15 ML BTL EACH EYE SCH ×2 (08:13→20:53)
[2016-05-27] MEDS: SODIUM CHLORIDE 0.9% FLUSH 10 ML FLUSH IV FLUSH SCH ×2 (08:14→20:53)
[2016-05-27] MEDS: CHLOROTHIAZIDE SOD 500 MG VIAL IV SCH (08:25)
[2016-05-27] MEDS: SODIUM CHLORIDE 0.9% FLUSH 10 ML FLUSH IVF SCH (08:26)
[2016-05-27] MEDS: BUDESONIDE-FORMOTEROL 80/4.5 MCG INHALER INH SCH ×2 (09:00→20:53)
[2016-05-27] MEDS ORDERED: BUMETANIDE INJ 1 MG/4 ML VIAL IV PUSH SCH (09:00)
[2016-05-27] MEDS: ACETAMINOPHEN 1000 MG/100 ML VIAL IV ONE (10:17)
--- NOTE | 2016-05-27 14:14 | HHI.FPPN ---
Subjective Remarks Patient seen and examined this morning. No acute events overnight were vital signs stable. Patient currently undergoing CPAP trials with decreased sedation. Patient is arousable and is able to track objects with his eyes currently. He has diuresed well with improving kidney function over the last 24 hours. Possible extubation trial this afternoon pending current CPAP trial. (Oswaldo Real MD R1) Objective Vitals Vital Signs Date Time Temp Pulse Resp B/P Pulse Ox O2 Delivery O2 Flow Rate FiO2 05/27/16 10:04 97 30 05/27/16 10:00 72 05/27/16 08:00 30 05/27/16 08:00 72 05/27/16 08:00 98.1 72 20 118/58 95 05/27/16 08:00 95 30 05/27/16 08:00 30 05/27/16 07:52 96 30 05/27/16 06:00 73 05/27/16 04:18 97 30 05/27/16 04:00 73 05/27/16 04:00 30 05/27/16 04:00 98.1 73 19 136/63 97 05/27/16 02:00 74 05/27/16 00:00 30 05/27/16 00:00 76 05/27/16 00:00 98.7 76 19 128/81 95 05/26/16 22:59 96 30 05/26/16 22:00 72 05/26/16 20:00 30 05/26/16 20:00 98.8 74 19 117/58 96 05/26/16 20:00 74 05/26/16 18:00 72 05/26/16 16:04 30 05/26/16 16:00 98.9 70 19 127/61 97 05/26/16 16:00 70 05/26/16 15:22 96 35 05/26/16 14:00 70 I/O 05/26/16 05/26/16 05/26/16 05/27/16 05/27/16 05/27/16 07:00 15:00 23:00 07:00 15:00 23:00 Intake Total 415 ml 630 ml 465 ml 478 ml Output Total 1950 ml 1300 ml 2565 ml 1725 ml Balance -1535 ml -670 ml -2100 ml -1247 ml IV Total 5 ml 259 ml 13 ml 20 ml Tube Feeding 210 ml 371 ml 202 ml 208 ml Other 200 ml 250 ml 250 ml Output Urine Total 1950 ml 1300 ml 2565 ml 1725 ml # Bowel Movements 0 0 (Oswaldo Real MD R1) Result Diagram: 05/27/1639905/27/16399 Objective Remarks GEN: Patient is a 66-year-old male lying in bed intubated undergoing CPAP trial. CV: Regular rate and rhythm without obvious murmurs LUNGS: Clear to anterior auscultation bilaterally. Audible upper airway sounds. ABD: Soft, nondistended with positive bowel sounds. No masses appreciated. EXT: 1+ edema of ankle and 1+ edema of hands, significantly improved overall. NEURO/PSYCH: Patient intubated currently undergoing CPAP trial, able to track objects with eyes currently. Withdrawals to pain. (Oswaldo Real MD R1) Date of Insertion: May 18, 2016 Line: Central Venous Catheter Side: Right Location: Internal, Jugular (Oswaldo Real MD R1) A/P Assessment and Plan 65 y/o male with history of DM and osteomyelitis presents with left leg pain as well as GI bleed, diabetes mellitus. Admitted for anemia, JOSE and left knee pain. Currently in the ICU and intubated. sdw: Dr. Juarez dw: Dr. Farley Discharge Planning Unclear, pending critical care course (Oswaldo Real MD R1) Attending Attestation Patient seen and examined. Case reviewed and discussed with the resident team. Agree with plan of care as discussed with me and documented in the resident note. hope for extubation soon (Chapis Farley MD) Problem List: (1) Acute encephalopathy Status: Acute Plan: Unclear etiology. DDx: delirium, alcohol withdrawal, metabolic encephalopathy, uremia Ammonia level elevated to 57 -Critical care consulted: appreciate recs -Pt intubated 05/17 due to lethargy and airway protection -Pt underwent CPAP trial 05/23, however was not extubated due to decreased arousability. -Patient currently undergoing CPAP trial been tolerating well. Possible extubation trial planned for this afternoon per critical care, pending current CPAP trial. Abx: Rocephin 1 g IV qd (05/19 - ) (2) JOSE (acute kidney injury) Status: Acute Plan: Ddx includes pre-renal (dehydration/hypovolemia) vs renal (ATN). Concern for underlying CKD. Associated with decreased eating and drinking prior to presentation. Baseline Cr is 0.83 from 2 years ago, admission Cr is 5.38. Pre- sedation confusion likely due to uremia. -Renal function stable today. JOSE likely due to hypotension vs IV contrast for arterial embolization for evaluation fo GI bleed. -Strict I/Os Nephrology consulted: appreciate recommendations * IV Diuril daily * Sodium bicarbonate PO Q8hrs * Bumex 2mg IV Q12hrs * Renal function stable however BUN and creatinine remains elevated; Discussing dialysis with family * Avoid nephrotoxic agents Imaging: * Renal US: Kidneys unremarkable. Finding suggesting cirrhosis and portal venous HTN with varices and recanalized paraumbilical vein. (3) Anemia Status: Acute Plan: No history of ulcers or blood thinners. Has some recent NSAID use and history of alcohol abuse. DDx: gastric/duodenal ulcer, esophageal varices, diverticulosis, colorectal cancer, polyps, IBD, hemorrhoids.H/H on admission was 6.8/20.6. Admission BUN/Cr ratio 19, suggestive of upper GI bleed. S/p transfusion on 05/19 due to hemoglobin remaining low at 7.4 Echo: EF 45-50%, mild MR, mild TR -Tachycardia and SOB likely due to anemia. CXR unremarkable except for cardiomegaly. -Hemoccult in ED positive. -H&H monitored; Transfuse as needed GI consulted: appreciate recommendations * s/p EGD 05/16 - Large clots in fundus, non-bleeding ulcer in duodenal bulb. Normal esophagus * Repeat EGD 05/18 - duodenal ulcers with visible vessels, cauterized -s/p arteriogram with coli and embolization of right gastric and GDA (05/18 ) * Repeat EGD 05/22 - large duodenal ulcers with no active bleeding * Liver serologies negative * Continue Protonix and octreotide until patient has had no signs of bleeding for 24 hours * Signed off Gen surgery consulted-appreciate recs: Do not recommend surgery, operative mortality approaching 100% Medications: * Protonix drip DC * Octreotide DC * Hold all anticoagulation (Coumadin, Plavix, Aspirin) (4) Atrial fibrillation Status: Acute Plan: Pt developed Afib with RVR. No history of Afib per patient. Given lopressor, cardizem. S/p cardizem infusion 05/17. Holding chemo ppx due to GI bleed -Amiodarone 400mg po Q12hrs -Continue to monitor tele, heart rate (5) Diabetes mellitus Status: Acute Plan: Hold home metformin and glipizide. A1c of 6.1, could be falsely low due to blood loss anemia. Bedside glucose in the 200s -Low-dose sliding scale -Levemir 5units Q12hrs (6) Cirrhosis Status: Acute Plan: Significant alcohol history. Denies alcohol withdrawals. No seizures in past. Cirrhosis seen on Renal US with evident of portal venous HTN with varices. Hepatitis panel negative. -See Ammonia above -Rally pack -CIWA protocol (7) Asthma Status: Chronic Plan: -Albuterol PRN (8) Knee pain, acute Status: Acute Plan: Likely due to muscle tear and/or Santo cyst rupture contributing to pain and associated edema. -Ortho consulted: Appreciate recommendations. Does not look like septic joint because there is no significant effusion. -S/p antibiotics (Vanc 05/14-; Linezolid 05/15-05/16; Cefepime 05/14-05/16) ( Rocephin 05/19- ) -Pain control with Tylenol PO/IV to not exceed 3000mg -Would benefit for PT once acute pain and mental status improves. Imaging: * MRI: Prominent edema in the medial calf with prominent fluid signal between the medial gastrocnemius and soleus muscles. DDX is ruptured Santo cyst versus muscle strain. Small joint effusion. No evidence of osteomyelitis. * LE ultrasound: No evidence of DVT. Elongated fluid in the proximal to mid left calf. DDX is muscle tear versus dissecting Santo cyst. 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 * Left knee XR: Negative for fracture or dislocation (9) FEN Status: Acute Plan: Fluids: Holding, diuresing Electrolytes: Sodium slightly elevated at 148. Continue to monitor. Nutrition: Tube feeds DVT ppx: SCDs/TEDs, chemoprophylaxis contraindicated due to GI bleed GI ppx: Protonix gtt (Oswaldo Real MD R1) Problem Qualifiers (1) Anemia: Qualified Code: D64.9 - Anemia, unspecified type (2) Atrial fibrillation: Qualified Code: I48.0 - Paroxysmal atrial fibrillation (3) Diabetes mellitus: Qualified Code: E11.8 - Type 2 diabetes mellitus with complication, without long-term current use of insulin (4) Cirrhosis: Qualified Code: K74.60 - Cirrhosis of liver without ascites, unspecified hepatic cirrhosis type (5) Asthma: Qualified Code: J45.909 - Uncomplicated asthma, unspecified asthma severity (6) Knee pain, acute: Qualified Code: M25.562 - Acute pain of left knee Oswaldo Real MD R1 May 27, 2016 14:14 Chapis Farley MD May 28, 2016 11:54
--- NOTE | 2016-05-27 15:20 | HHI.NPPN ---
Subjective History of Present Illness The aptient is a 65 yo [place] male who presented to this facility on 05/14 with complaints of continued L knee pain. Pt lethargic and not providing me with any information. Family not present. Information obtained from previous medical record. Was seen at [facility] ED on 05/11 with same complaint and was suspected at that point that he had septic arthritis and was prescribed Ibuprofen and Clindamycin. He has a PMHx of osteomyelitis with R great toe amputation in the past. It does not appear that he has any PMHx of CKD, but last labs that I see are from 2014. SCr baseline at that time as 0.8-0.9. Admitting SCr 5.38 at that improved slightly to 5.28 at consult. Interval History Patient trial of CPAP. More alert. Review of Systems General General Remarks Unobtainable today. Objective Data Data 05/26/16 05/27/16 19:00 07:00 Intake Total 630 ml 943 ml Output Total 1300 ml 4290 ml Balance -670 ml -3347 ml IV Total 259 ml 33 ml Tube Feeding 371 ml 410 ml Other 500 ml Output Urine Total 1300 ml 4290 ml # Bowel Movements 0 Vital Signs Date Time Temp Pulse Resp B/P Pulse Ox O2 Delivery O2 Flow Rate FiO2 05/27/16 14:00 105 05/27/16 13:48 95 30 05/27/16 12:00 30 05/27/16 12:00 98.3 105 19 121/58 94 05/27/16 12:00 105 05/27/16 10:04 97 30 05/27/16 10:00 72 05/27/16 08:00 30 05/27/16 08:00 72 05/27/16 08:00 98.1 72 20 118/58 95 05/27/16 08:00 95 30 05/27/16 08:00 30 05/27/16 07:52 96 30 05/27/16 06:00 73 05/27/16 04:18 97 30 05/27/16 04:00 73 05/27/16 04:00 30 05/27/16 04:00 98.1 73 19 136/63 97 05/27/16 02:00 74 05/27/16 00:00 30 05/27/16 00:00 76 05/27/16 00:00 98.7 76 19 128/81 95 05/26/16 22:59 96 30 05/26/16 22:00 72 05/26/16 20:00 30 05/26/16 20:00 98.8 74 19 117/58 96 05/26/16 20:00 74 05/26/16 18:00 72 05/26/16 16:04 30 05/26/16 16:00 98.9 70 19 127/61 97 05/26/16 16:00 70 05/26/16 15:22 96 35 -: 05/27/16 0400 05/27/16 0400 Physical Exam General Appearance: No Acute Distress, Comfortable Eyes Eye Exam: Sclera White Pulmonary Resp Exam: Clear Bilaterally, Breath Sounds Equal, No Distress Cardiology CV Exam: Regular, Normal Sinus Rhythm, Good Perfusion Gastrointestinal/Abdomen GI Exam: Soft, Non-Tender Integumentary Skin Exam: Clear, Warm Extremeties Extremities Exam: Moderate Edema (primarily upper extremities, trace edema legs. 1+ pitting edema hips.), Pitting Edema Neurologic Neuro Exam: Sedated Assessment/Plan Discussed Condition With: Patient Problem List: (1) Acute renal failure Plan: Brisk urine output and creatinine level continues to improve. Resolving acute kidney injury. Reduce bumetanide 1 mg every 12 hourly. Repeat renal indices in a.m. Defer potassium supplementation to critical care. Brother and [id number] by bedside. Advised of improvement in renal function. Dialysis is not a consideration at this time.. . Medications should be adjusted for the patient's renal dysfunction. Avoid nephrotoxic agents such as iodinated contrast and NSAIDs. Avoid gadolinium when eGFR <30 (2) Acidosis Plan: Improved. Monitor (3) Anemia Plan: Endoscopy report reviewed. Apparently evidence of GI bleed with large duodenal ulcer. Serology negative (4) Diabetes mellitus Plan: Mgmt as per primary team (5) Pain of left calf Plan: Potential muscle tear versus strain as per imaging studies. No evidence of DVT (6) Cirrhosis Plan: Suggested by imaging reports. Problem Qualifiers (1) Anemia: Qualified Code: D64.9 - Anemia, unspecified type (2) Diabetes mellitus: Qualified Code: E11.8 - Type 2 diabetes mellitus with complication, without long-term current use of insulin (3) Cirrhosis: Qualified Code: K74.60 - Cirrhosis of liver without ascites, unspecified hepatic cirrhosis type Vero Johnson MD May 27, 2016 15:20
--- NOTE | 2016-05-27 16:18 | HHI.CCPN ---
Subjective Remarks/Hospital Course Patient is a 65-year-old male with past medical history significant for type 2 diabetes, asthma and history of alcohol dependence who presents to the emergency department on 05/14/73 for evaluation of left knee pain. His workup revealed he had a elevated ESR at >140 and CRP at 26.40. Orthopaedics Dr. Bolaños. MRI did not show any evidence of infection. She was also found to be anemic with Hemoccult positive hemoglobin 6.8 and GI was consulted. Patient' s baseline creatinine is not known but he presented with BUN of 103 creatinine 5.39. Since admission patient received a total of 2 units PRBC. He underwent EGD yesterday and there was a lot of clot in the stomach. Evaluation of stomach was impossible due to large amount of blood. Dr. Muse was able to visualize a large duodenal ulcer which was not actively bleeding at that time. According to him he plan to redo the EGD tomorrow 05/18/16. Post EGD patient was transferred to the ICU yesterday evening due to high risk of recurrent bleed , need for possible IR embolization. According to the notes patient has not been recently drinking but was taking Ibuprofen 800mg po TID at home on the pain. Today regarding critical care medicine was consulted for altered mentation and A. fib with RVR. On my evaluation patient with very lethargic hardly wakes up able to state his name but very slurred speech. An ammonia level checked was normal. Patient received last dose of Ativan around 10 AM. My discussion with Dr. Muse he is planning to do endoscopy EGD again tomorrow. Because of questionable airway protection, GCS about 8 and upper GIB and this will also facilitate bedside EGD tomorrow 05/18 Patient is sedated with Diprivan and intubated. On Protonix and bicarb drips. Afebrile. For EGD today. 05/19 Patient s/p EGD yesterday with showed multiple duodenal ulcers with visible vessel s/p EPi injection and cauterization. Late afternoon yesterday became rebled became hypotensive and started on Levophed now 7 mics. He was given 4 units PRBC for Hgb 5.6 underwent arteriogram with coil and embolization of right gastric and GDA. Given additional 1unit PRBC, 2u FFP and 1u PLT overnight. Hgb 7.4 this morning from 10.1 last night. Placed on Amio drip overnight sedated with Diprivan. 05/20 Patient remains intubated and and sedated with Diprivan on Amio drip. Renal function worse today with Cr: 3.43 from 2.86 and UO: 475 ml in 24 hrs. Hgb 7.7 this morning s/p transfusion 2units PRBC yesterday. 05/21 Patient remains sedated with Diprivan and intubated. Tolerated CPAP for all day yesterday. Bleeding scan was positive for GI bleed in small bowel ( proximal Duodenum) Received total 3 units PRBC since yesterday and 1unit PLT. Hgb 9.2 this morning. Renal function is worse with Cr: 3.81 from 3.43 with UO:700ml in 24hrs. Patient went into Afib with RVR and placed on Amio drip. 05/22 Patient remains sedated with Diprivan and intubated. For repeat EGD today. On Sandostatin, Protonix and Amio drips. H/H stable. Renal function similar to yesterday with Cr: 3.80 however his UO is overall better- 2L in 24 hrs. 05/23: Drowsy off sedation, remains orally intubated on mechanical ventilation. 05/24: Currently on sedation vacation. Remains orally intubated on mechanical ventilation. Not arousable. No acute events overnight. Cr remains elevated to 3.88; adequate UOP 2300 cc over past 24 hours. 05/25 Patient remains sedated with Diprivan and intubated. On Sandostatin and Protonix drips. Afebrile. 05/26 : Tmax 99.3. This a.m. Protonix, octreotide infusions discontinued, GI service signed off. The patient was able to tolerate CPAP trials for greater than 8 hours yesterday. CPAP trials initiated this a.m. with plans for possible extubation. The patient continues aggressive diuresis greater than 3 L off the last 24 hours. 05/27 The patient was diuresed 4 L off in the last 24 hours. Slight improvement in creatinine, nephrology following, Bumex decreased to 1 mg twice a day. Potassium supplement mentation when necessary. The patient has been on CPAP since 8:30 this morning without difficulty. Patient is awake and responsive all sedation stopped. SBT trials underway plan for trial of extubation. Objective Vital Signs Date Time Temp Pulse Resp B/P Pulse Ox O2 Delivery O2 Flow Rate FiO2 05/27/16 14:00 105 05/27/16 13:48 95 30 05/27/16 12:00 98.3 19 121/58 Intake and Output 05/26/16 05/26/16 05/27/16 08:00 16:00 00:00 Intake Total 415 ml 630 ml 465 ml Output Total 1950 ml 1300 ml 2565 ml Balance -1535 ml -670 ml -2100 ml Result Diagram: 05/27/16 0400 05/27/16 0400 Imaging Last Impressions Chest X-Ray 05/23/16 0000 Signed Impressions: Service Date/Time: Monday, May 23, 2016 03:26 - CONCLUSION: Tiny bilateral pleural effusions and bibasilar infiltrates. Carroll Joel Jr., MD GI Bleed Scan Nuclear Medicine 05/20/16 0000 Signed Impressions: Service Date/Time: Friday, May 20, 2016 14:25 - CONCLUSION: 1. Positive for gastrointestinal bleed in small bowel, probably at the proximal duodenum. Randy Byrne MD Central Venous Line 05/18/16 0000 Signed Impressions: Service Date/Time: Wednesday, May 18, 2016 00:00 - CONCLUSION: Uncomplicated line placement as above. Wilver Mendoza MD Celiac/Hepatic Arteriogram 05/18/16 0000 Signed Impressions: Service Date/Time: Wednesday, May 18, 2016 16:21 - CONCLUSION: 1. Active bleeding identified off the GDA in the expected location of the duodenum. 2. Successful coil and Gelfoam embolization of the right gastric and GDA as detailed above. Wilver Mendoza MD Renal Ultrasound 05/15/16 0000 Signed Impressions: Service Date/Time: Sunday, May 15, 2016 10:50 - CONCLUSION: 1. Kidneys within normal limits. 2. Findings suggesting cirrhosis and portal venous hypertension with varices and recanalized paraumbilical vein. Get Franco MD Lower Extremity Ultrasound 05/15/16 0000 Signed Impressions: Service Date/Time: Sunday, May 15, 2016 08:41 - CONCLUSION: 1. No evidence of lower extremity DVT on the right or left. 2. Elongated fluid in the proximal to mid left calf. The rectal diagnosis is muscle tear versus dissecting Santo cyst. 3. 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 Get Franco MD Knee MRI 05/15/16 0000 Signed Impressions: Service Date/Time: Sunday, May 15, 2016 16:51 - CONCLUSION: 1. Prominent edema in the medial calf with prominent fluid signal between the medial gastrocnemius and soleus muscles. Differential diagnosis is ruptured Santo cyst versus muscle strain. No fluid-filled gap in muscle fibers is seen. There is also adjacent superficial soft tissue edema in this region. 2. Small horizontal tear of the body of the medial meniscus. 3. Small joint effusion. 4. Mild reactive bony edema in the patella. 5. No evidence of osteomyelitis. 6. Moderate focal medial facet patellar chondromalacia. Get Franco MD Knee X-Ray 05/14/16 0000 Signed Impressions: Service Date/Time: Saturday, May 14, 2016 15:44 - CONCLUSION: Negative for fracture or dislocation. Follow up in 7-10 days is suggested if symptoms persist. Alexy Padron MD FACR Objective Remarks GENERAL: Patient is 66 yo intubated but responding to commands SKIN: Warm and dry. HEAD: Normocephalic. EYES: No scleral icterus. No injection or drainage. NECK: Supple, trachea midline. No JVD or lymphadenopathy. Orotracheally intubated. CARDIOVASCULAR: Regular rate and rhythm without murmurs, gallops, or rubs. RESPIRATORY: Breath sounds equal bilaterally. No accessory muscle use. GASTROINTESTINAL: Abdomen soft, non-tender, nondistended. MUSCULOSKELETAL: No cyanosis, or edema. Neuro: GCS 11 T, patient currently on CPAP trials responding to commands appropriately Urinary Catheter: Yes Donaldson insert reason: ICU Pt Getting Diuretics Date of Insertion: May 18, 2016 Line: Central Venous Catheter Side: Right Location: Internal, Jugular A/P Assessment and Plan NEURO: Acute encephalopathy Alcohol dependence -On Diprivan infusion for sedation. Daily sedation vacation -GCS 11 T, follows commands currently on propofol 5 mcgs -Discontinue Ativan, supplement thiamine and multivitamin -Avoid any sedatives and long-acting narcotics -If patient displays symptoms of alcohol withdrawal consider Haldol/Ativan/ Precedex RESP: Respiratory insufficiency History of asthma -Continue with vent support keep sat >92% -DuoNeb every 6 hours and when necessary, ventilator bundle -Continue CPAP trials, currently , - SBT- RSBI 33 , FVC 1.03, positive cuff leak,NIF -39 on FIO2 .40 for plans of extubation CV: Atrial fibrillation with rapid ventricular response -Monitor HR and BP keep MAP>65mmHg. -Currently normal sinus rhythm -Amiodarone 400mg Q12, -Echo 05/17: EF 45-50%, no RWMA GI/HEME: Upper GI bleed/large duodenal ulcer-resolved Severe anemia requiring transfusion Liver cirrhosis -s/p Arteriogram with coli and embolization of right gastric and GDA 05/18 Bleeding scan positive for GI bleed in small bowel probably in proximal Jejunum 05/20 Thrombocytopenia -IV Protonix and Sandostatin drips, s/p EGD 05/22: multiple duodenal ulcers, no active bleeding-discontinued 05/26/16 -Consider transitioning Protonix drip to BID following discussion with GI -Monitor CBC Keep Hgb >8, platelet count 94 continue to monitor -Surgery is following- Dr. Novak- patient is high risk for surgery. -s/p repeat EGD 05/18 which showed duodenal ulcers with visible vessels s/p Epi injection and cauterization -EGD 05/16/16 shows large duodenal ulcer. Unable to visualize most of stomach and duodenum due to large amount of clot present -s/p transfusion 2units PRBC 05/19 -Continue tube feeds with Nepro at 30 cc/hr -Received 16 units PRBC since admission, 2u FFP, 2u PLT -Tube feeds Nepro at goal : Acute kidney failure Hypernatremia -Monitor renal function, I/O's, avoid nephrotoxins. - Cr: 3.77->3.94-> 3.45 todaywith UO:> 3000 ml in 24 hrs -On PO bicarb 650mg Q8, on Bumex 2mg IV q8h -Place on Free water 250ml Q8 monitor sodium level. -Nephrology Dr. Johnson is following ID: -Continue empiric abx (Rocephin started on 05/19; will complete a 7-day course and consider discontinuing). Monitor for signs of infection (Fever, WBC) culture if spikes fever. 05/14 BC: No growth 05/14 sputum cx: No growth 05/14, 05/17 urine cx: No growth ENDO: -SSI (medium scale) , still blood glucose levels in the 200 increase Levemir insulin 10 units BID for glycemic control PROPH: -Bilateral lower extremity SCDs. Protonix BID, infusion discontinued LINES: -Utilize peripheral IVs, Right IJ CVP placed 05/18 Level 3 Discussed with DIRECTOR OF ARCHIVES at bedside Physician Judy Heath MD May 27, 2016 16:18 nursing staff, or respiratory therapy, and documentation in the medical record. Physician Judy Heath MD May 27, 2016 16:18
[2016-05-27 19:01] LABS: BLOOD GAS CARBOXYHEMOGLOBIN 1.9 % (0-4); BLOOD GAS HCO3 29 mmol/L (22-26); BLOOD GAS O2 HGB SATURATION 76 % (90-100); BLOOD GAS OXYGEN CONTENT 10.3 Vol % (12.0-20.0); BLOOD GAS PCO2 37 mmHg (38-42); BLOOD GAS PO2 42 mmHg (61-120); BLOOD GAS TOTAL HGB 9.7 G/DL (12.0-16.0); TEMP CORR TO 98.6
[2016-05-27 19:02] LABS: CRITICAL VALUE YES; FIO2 100 %; LITER FLOW 15 L/M
[2016-05-27 19:03] LABS: DRAW SITE RT BRACHIAL; NUMBER OF ARTERIAL PUNCTURES 1; OXYGEN DEVICE AMBU; STAT YES; ULNAR PULSE PRESENT
--- NOTE | 2016-05-27 19:57 | RADRPT ---
EXAM DATE/TIME: 05/27/2016 19:03 [facility] COMPARISON: CHEST SINGLE AP, May 27, 2016, 4:50. INDICATIONS : Shortness of breath, possible pulmonary disease. MEDICAL HISTORY : Osteomyelitis. Diabetes mellitus type II. Asthma SURGICAL HISTORY : None. ENCOUNTER: Subsequent ACUITY: 1 week PAIN SCORE: Non-responsive. LOCATION: Bilateral chest FINDINGS: A single view of the chest demonstrates endotracheal tube in satisfactory position. NG enters stomach . Right central line in superior vena cava. Left basilar lung consolidation with small left effusion. No pneumothorax. CONCLUSION: 1. Left basilar lung consolidation and small left effusion. Endotracheal tube, nasogastric tube and r ight central line in satisfactory position. Randy Byrne MD on May 27, 2016 at 19:53 Board Certified Radiologist. This report was verified electronically.
[2016-05-27] MEDS: BUMETANIDE INJ 1 MG/4 ML VIAL IV PUSH SCH (20:50)
[2016-05-28] VITALS (19 sets, daily range): BP systolic 105–127; BP diastolic 57–67; PULSE 66–107; RESP 16–20; TEMP 97–99.1; O2SAT 94–100
[2016-05-28] MEDS: AMIODARONE 200 MG TAB PO SCH ×2 (01:10→12:00)
[2016-05-28] MEDS: INSULIN NovoLIN REGULAR SUPPLEMENTAL SCALE SQ SCH ×4 (01:10→20:45)
[2016-05-28 02:53] LABS: HEMATOCRIT 24.6 % (39.0-51.0); MEAN CELL VOLUME 87.9 FL (80.0-100.0); MEAN CORPUSCULAR HEMOGLOBIN 29.8 PG (27.0-34.0); PLATELET COUNT 110 TH/MM3 (150-450); RED CELL DISTRIBUTION WIDTH 19.2 % (11.6-17.2); REVIEW FLAG FINAL; WHITE BLOOD COUNT 7.7 TH/MM3 (4.0-11.0)
[2016-05-28 03:23] LABS: BICARBONATE 33.7 MEQ/L (21.0-32.0); MAGNESIUM 1.9 MG/DL (1.5-2.5)
[2016-05-28 03:28] LABS: POTASSIUM 2.9 MEQ/L (3.5-5.1)
[2016-05-28] MEDS: PANTOPRAZOLE SODIUM 40 MG VIAL IV PUSH SCH ×2 (05:01→18:26)
[2016-05-28] MEDS: SODIUM BICARBONATE 650 MG TAB PO SCH (05:01)
[2016-05-28] MEDS: POTASSIUM CHLOR 40 MEQ PREMIX 100 ML IV SCH ×2 (05:02→09:06)
[2016-05-28] MEDS: FREE WATER G-TUBE SCH ×3 (05:02→22:00)
[2016-05-28] MEDS: CHLORHEXIDINE 0.12% (ORAL KIT) 15 ML CUP MT SCH (08:00)
--- NOTE | 2016-05-28 08:44 | HHI.FPPN ---
Subjective Remarks Pt seen and examined this morning. No acute events overnight. Sedation is off, pt undergoing CPAP trial. Respiratory therapist present at bedside. Pt is alert , able to follow commands, uncomfortable due to intubation. Possible extubation later today if pt is able to tolerate spontaneous breathing trial. Kidney function continues to improve. (Hu Flood MD R2) Objective Vitals Vital Signs Date Time Temp Pulse Resp B/P Pulse Ox O2 Delivery O2 Flow Rate FiO2 05/28/16 08:07 40 05/28/16 08:01 95 40 05/28/16 06:00 66 05/28/16 04:00 40 05/28/16 04:00 67 05/28/16 04:00 98.4 67 18 120/59 98 05/28/16 03:57 98 40 05/28/16 02:00 66 05/28/16 01:06 100 50 05/28/16 00:00 98.4 67 16 127/57 100 05/28/16 00:00 66 05/28/16 00:00 60 05/27/16 22:23 100 60 05/27/16 22:00 67 05/27/16 20:00 98.0 67 24 127/57 100 05/27/16 20:00 67 05/27/16 20:00 100 05/27/16 18:00 69 05/27/16 17:06 100 30 05/27/16 16:00 30 05/27/16 16:00 98.6 100 15 108/55 98 05/27/16 16:00 102 05/27/16 14:00 105 05/27/16 13:48 95 30 05/27/16 12:00 30 05/27/16 12:00 98.3 105 19 121/58 94 05/27/16 12:00 105 05/27/16 10:04 97 30 05/27/16 10:00 72 I/O 05/27/16 05/27/16 05/27/16 05/28/16 05/28/16 05/28/16 07:00 15:00 23:00 07:00 15:00 23:00 Intake Total 478 ml 481 ml 1259 ml 313 ml Output Total 1725 ml 2425 ml 1200 ml 875 ml Balance -1247 ml -1944 ml 59 ml -562 ml IV Total 20 ml 136 ml 1009 ml 0 ml Tube Feeding 208 ml 345 ml 0 ml 63 ml Other 250 ml 250 ml 250 ml Output Urine Total 1725 ml 2425 ml 1200 ml 875 ml # Bowel Movements 0 0 0 (Hu Flood MD R2) Result Diagram: 05/28/1623905/28/16239 Objective Remarks GEN: Patient is a 66-year-old male lying in bed intubated undergoing CPAP trial. CV: Regular rate and rhythm without 3/6 systolic murmur LUNGS: Clear to anterior auscultation bilaterally. Audible upper airway sounds. ABD: Soft, nondistended with positive bowel sounds. No masses appreciated. EXT: Trace edema of ankle and trace edema of hands, significantly improved overall. NEURO/PSYCH: Awake and alert, able to follow verbal commands. (Hu Flood MD R2) Date of Insertion: May 18, 2016 Line: Central Venous Catheter Side: Right Location: Internal, Jugular (Hu Flood MD R2) A/P Assessment and Plan 65 y/o male with history of DM and osteomyelitis presents with left leg pain as well as GI bleed, diabetes mellitus. Admitted for anemia, JOSE and left knee pain. Currently in the ICU and intubated. dw: Dr. Farley Discharge Planning Unclear, pending critical care course (Hu Flood MD R2) Attending Attestation Patient seen and examined. Case reviewed and discussed with the resident team. Agree with plan of care as discussed with me and documented in the resident note. this is the most awake and alert I have ever seen him (Chapis Farley MD) Problem List: (1) Acute encephalopathy Status: Acute Plan: Improved, Pt currently awake and alert Unclear etiology. DDx: delirium, alcohol withdrawal, metabolic encephalopathy, uremia Ammonia level elevated to 57 on 05/24 -Critical care consulted: appreciate recs -Pt intubated 05/17 due to lethargy and airway protection -Pt has been undergoing daily CPAP trials, however was not extubated due to decreased arousability. -Possible extubation trial planned for this afternoon per critical care, pending current CPAP and spontaneous breathing trial. Abx: Rocephin 1 g IV qd (05/19 - ) (2) JOSE (acute kidney injury) Status: Acute Plan: Ddx includes pre-renal (dehydration/hypovolemia) vs renal (ATN). Concern for underlying CKD. Associated with decreased eating and drinking prior to presentation. Baseline Cr is 0.83 from 2 years ago, admission Cr is 5.38. Pre- sedation confusion likely due to uremia. -Renal function stable today. JOSE likely due to hypotension vs IV contrast for arterial embolization for evaluation fo GI bleed. -Strict I/Os Nephrology consulted: appreciate recommendations * IV Diuril daily * Sodium bicarbonate PO Q8hrs * Bumex 1mg IV Q12hrs * Renal function continues to improve, no plans for dialysis at this time. * Avoid nephrotoxic agents Imaging: * Renal US: Kidneys unremarkable. Finding suggesting cirrhosis and portal venous HTN with varices and recanalized paraumbilical vein. (3) Anemia Status: Acute Plan: No history of ulcers or blood thinners. Has some recent NSAID use and history of alcohol abuse. DDx: gastric/duodenal ulcer, esophageal varices, diverticulosis, colorectal cancer, polyps, IBD, hemorrhoids.H/H on admission was 6.8/20.6. Admission BUN/Cr ratio 19, suggestive of upper GI bleed. S/p transfusion on 05/19 due to hemoglobin remaining low at 7.4 Echo: EF 45-50%, mild MR, mild TR -Hemoccult in ED positive. -H&H monitored; Transfuse as needed GI consulted: appreciate recommendations * s/p EGD 05/16 - Large clots in fundus, non-bleeding ulcer in duodenal bulb. Normal esophagus * Repeat EGD 05/18 - duodenal ulcers with visible vessels, cauterized -s/p arteriogram with coli and embolization of right gastric and GDA (05/18 ) * Repeat EGD 05/22 - large duodenal ulcers with no active bleeding * Liver serologies negative * Signed off Gen surgery consulted-appreciate recs: Do not recommend surgery, operative mortality approaching 100% Medications: * Protonix 40mg IV BID * Hold all anticoagulation (Coumadin, Plavix, Aspirin) (4) Atrial fibrillation Status: Acute Plan: Pt developed Afib with RVR. No history of Afib per patient. Given lopressor, cardizem. S/p cardizem infusion 05/17. Holding chemo ppx due to GI bleed -Amiodarone 400mg po Q12hrs -Continue to monitor tele, heart rate (5) Diabetes mellitus Status: Acute Plan: Hold home metformin and glipizide. A1c of 6.1, could be falsely low due to blood loss anemia. Bedside glucose in the 100s-200s -Low-dose sliding scale -Levemir 10units Q12hrs (6) Cirrhosis Status: Acute Plan: Significant alcohol history. Denies alcohol withdrawals. No seizures in past. Cirrhosis seen on Renal US with evident of portal venous HTN with varices. Hepatitis panel negative. -See Ammonia above -Oral Rally pack (7) Asthma Status: Chronic Plan: -Albuterol PRN -Symbicort BID (8) Knee pain, acute Status: Acute Plan: Likely due to muscle tear and/or Santo cyst rupture contributing to pain and associated edema. -Ortho consulted: Appreciate recommendations. Does not look like septic joint because there is no significant effusion. -S/p antibiotics (Vanc 05/14-; Linezolid 05/15-05/16; Cefepime 05/14-05/16) ( Rocephin 05/19- ) -Pain control with Tylenol PO/IV to not exceed 3000mg -Would benefit for PT once acute pain and mental status improves. Imaging: * MRI: Prominent edema in the medial calf with prominent fluid signal between the medial gastrocnemius and soleus muscles. DDX is ruptured Santo cyst versus muscle strain. Small joint effusion. No evidence of osteomyelitis. * LE ultrasound: No evidence of DVT. Elongated fluid in the proximal to mid left calf. DDX is muscle tear versus dissecting Santo cyst. 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 * Left knee XR: Negative for fracture or dislocation (9) FEN Status: Acute Plan: Fluids: Holding, diuresing Electrolytes: Potassium low at 2.9, potassium chloride IV 40meq. Sodium elevated to 152Continue to monitor. Nutrition: Tube feeds DVT ppx: SCDs/TEDs, chemoprophylaxis contraindicated due to GI bleed GI ppx: Protonix (Hu Flood MD R2) Problem Qualifiers (1) Anemia: Qualified Code: D64.9 - Anemia, unspecified type (2) Atrial fibrillation: Qualified Code: I48.0 - Paroxysmal atrial fibrillation (3) Diabetes mellitus: Qualified Code: E11.8 - Type 2 diabetes mellitus with complication, without long-term current use of insulin (4) Cirrhosis: Qualified Code: K74.60 - Cirrhosis of liver without ascites, unspecified hepatic cirrhosis type (5) Asthma: Qualified Code: J45.909 - Uncomplicated asthma, unspecified asthma severity (6) Knee pain, acute: Qualified Code: M25.562 - Acute pain of left knee Hu Flood MD R2 May 28, 2016 08:43 Chapis Farley MD May 28, 2016 11:56
[2016-05-28] MEDS: SODIUM CHLORIDE 0.9% FLUSH 10 ML FLUSH IV FLUSH SCH ×2 (09:00→21:50)
[2016-05-28] MEDS: BUDESONIDE-FORMOTEROL 80/4.5 MCG INHALER INH SCH (09:00)
[2016-05-28] MEDS: SODIUM CHLORIDE 0.9% FLUSH 10 ML FLUSH IVF SCH (09:00)
[2016-05-28] MEDS: INSULIN DETEMIR 100 UNITS/ML VIAL SQ SCH ×2 (09:06→21:50)
[2016-05-28] MEDS: BUMETANIDE INJ 1 MG/4 ML VIAL IV PUSH SCH ×2 (09:07→21:50)
[2016-05-28] MEDS: cefTRIAXone INJ 1,000 MG in SODIUM CHLORIDE 0.9% INJ 100 ML IV SCH (09:07)
[2016-05-28] MEDS: CHLOROTHIAZIDE SOD 500 MG VIAL IV SCH (09:07)
[2016-05-28] MEDS: THIAMINE HCL 100 MG TAB PO SCH (09:07)
[2016-05-28] MEDS: NYSTATIN 100,000 U/GM PWD 15 GM BTL TOPICAL SCH (09:08)
[2016-05-28] MEDS: ARTIFICIAL TEARS OPTH SOLN 15 ML BTL EACH EYE SCH ×2 (09:08→21:50)
--- NOTE | 2016-05-28 11:10 | HHI.CCPN ---
Subjective Remarks/Hospital Course Patient is a 65-year-old male with past medical history significant for type 2 diabetes, asthma and history of alcohol dependence who presents to the emergency department on 05/14/73 for evaluation of left knee pain. His workup revealed he had a elevated ESR at >140 and CRP at 26.40. Orthopaedics Dr. Bolaños. MRI did not show any evidence of infection. She was also found to be anemic with Hemoccult positive hemoglobin 6.8 and GI was consulted. Patient' s baseline creatinine is not known but he presented with BUN of 103 creatinine 5.39. Since admission patient received a total of 2 units PRBC. He underwent EGD yesterday and there was a lot of clot in the stomach. Evaluation of stomach was impossible due to large amount of blood. Dr. Muse was able to visualize a large duodenal ulcer which was not actively bleeding at that time. According to him he plan to redo the EGD tomorrow 05/18/16. Post EGD patient was transferred to the ICU yesterday evening due to high risk of recurrent bleed , need for possible IR embolization. According to the notes patient has not been recently drinking but was taking Ibuprofen 800mg po TID at home on the pain. Today regarding critical care medicine was consulted for altered mentation and A. fib with RVR. On my evaluation patient with very lethargic hardly wakes up able to state his name but very slurred speech. An ammonia level checked was normal. Patient received last dose of Ativan around 10 AM. My discussion with Dr. Muse he is planning to do endoscopy EGD again tomorrow. Because of questionable airway protection, GCS about 8 and upper GIB and this will also facilitate bedside EGD tomorrow 05/18 Patient is sedated with Diprivan and intubated. On Protonix and bicarb drips. Afebrile. For EGD today. 05/19 Patient s/p EGD yesterday with showed multiple duodenal ulcers with visible vessel s/p EPi injection and cauterization. Late afternoon yesterday became rebled became hypotensive and started on Levophed now 7 mics. He was given 4 units PRBC for Hgb 5.6 underwent arteriogram with coil and embolization of right gastric and GDA. Given additional 1unit PRBC, 2u FFP and 1u PLT overnight. Hgb 7.4 this morning from 10.1 last night. Placed on Amio drip overnight sedated with Diprivan. 05/20 Patient remains intubated and and sedated with Diprivan on Amio drip. Renal function worse today with Cr: 3.43 from 2.86 and UO: 475 ml in 24 hrs. Hgb 7.7 this morning s/p transfusion 2units PRBC yesterday. 05/21 Patient remains sedated with Diprivan and intubated. Tolerated CPAP for all day yesterday. Bleeding scan was positive for GI bleed in small bowel ( proximal Duodenum) Received total 3 units PRBC since yesterday and 1unit PLT. Hgb 9.2 this morning. Renal function is worse with Cr: 3.81 from 3.43 with UO:700ml in 24hrs. Patient went into Afib with RVR and placed on Amio drip. 05/22 Patient remains sedated with Diprivan and intubated. For repeat EGD today. On Sandostatin, Protonix and Amio drips. H/H stable. Renal function similar to yesterday with Cr: 3.80 however his UO is overall better- 2L in 24 hrs. 05/23: Drowsy off sedation, remains orally intubated on mechanical ventilation. 05/24: Currently on sedation vacation. Remains orally intubated on mechanical ventilation. Not arousable. No acute events overnight. Cr remains elevated to 3.88; adequate UOP 2300 cc over past 24 hours. 05/25 Patient remains sedated with Diprivan and intubated. On Sandostatin and Protonix drips. Afebrile. 05/26 : Tmax 99.3. This a.m. Protonix, octreotide infusions discontinued, GI service signed off. The patient was able to tolerate CPAP trials for greater than 8 hours yesterday. CPAP trials initiated this a.m. with plans for possible extubation. The patient continues aggressive diuresis greater than 3 L off the last 24 hours. 05/27: The patient was diuresed 4 L off in the last 24 hours. Slight improvement in creatinine, nephrology following, Bumex decreased to 1 mg twice a day. Potassium supplement mentation when necessary. The patient has been on CPAP since 8:30 this morning without difficulty. Patient is awake and responsive all sedation stopped. SBT trials underway plan for trial of extubation. 05/28: Afebrile Yesterday evening the patient failed SBT trial, patient was very lethargic. The patient was placed continue on CPAP now for greater than 24 hours, with plans to at a trial of extubation. Objective Vital Signs Date Time Temp Pulse Resp B/P Pulse Ox O2 Delivery O2 Flow Rate FiO2 05/28/16 08:07 40 05/28/16 08:01 95 05/28/16 08:00 69 05/28/16 08:00 98.6 18 127/59 Intake and Output 05/27/16 05/27/16 05/28/16 08:00 16:00 00:00 Intake Total 478 ml 481 ml 1259 ml Output Total 1725 ml 2425 ml 1200 ml Balance -1247 ml -1944 ml 59 ml Result Diagram: 05/28/16 0240 05/28/16 0240 Other Results Laboratory Tests Test 05/27/16 18:54 Blood Gas Puncture Site RT BRACHIAL Blood Gas Patient Temperature 98.6 Blood Gas HCO3 29 mmol/L (22-26) Blood Gas Base Excess 6.0 mmol/L (-2-2) Blood Gas Oxygen Saturation 76 % (90-100) Arterial Blood pH 7.51 (7.380-7.420) Arterial Blood Partial 37 mmHg (38-42) Pressure CO2 Arterial Blood Partial 42 mmHg Pressure O2 (61-120) Arterial Blood Oxygen Content 10.3 Vol % (12.0-20.0) Arterial Blood 1.9 % (0-4) Carboxyhemoglobin Arterial Blood Methemoglobin 1.0 % (0-2) Blood Gas Hemoglobin 9.7 G/DL (12.0-16.0) Oxygen Delivery Device AMBU Blood Gas Liter Flow 15 L/M Blood Gas Inspired Oxygen 100 % Imaging Last Impressions Chest X-Ray 05/23/16 0000 Signed Impressions: Service Date/Time: Monday, May 23, 2016 03:26 - CONCLUSION: Tiny bilateral pleural effusions and bibasilar infiltrates. Carroll Joel Jr., MD GI Bleed Scan Nuclear Medicine 05/20/16 0000 Signed Impressions: Service Date/Time: Friday, May 20, 2016 14:25 - CONCLUSION: 1. Positive for gastrointestinal bleed in small bowel, probably at the proximal duodenum. Randy Byrne MD Central Venous Line 3/31/17 0000 Signed Impressions: Service Date/Time: Wednesday, May 18, 2016 00:00 - CONCLUSION: Uncomplicated line placement as above. Wilver Mendoza MD Celiac/Hepatic Arteriogram 05/18/16 Signed Impressions: Service Date/Time: Wednesday, May 18, 2016 16:21 - CONCLUSION: 1. Active bleeding identified off the GDA in the expected location of the duodenum. 2. Successful coil and Gelfoam embolization of the right gastric and GDA as detailed above. Wilver Mendoza MD Renal Ultrasound 05/15/16 Signed Impressions: Service Date/Time: Sunday, May 15, 2016 10:50 - CONCLUSION: 1. Kidneys within normal limits. 2. Findings suggesting cirrhosis and portal venous hypertension with varices and recanalized paraumbilical vein. Get Franco MD Lower Extremity Ultrasound 05/15/16 Signed Impressions: Service Date/Time: Sunday, May 15, 2016 08:41 - CONCLUSION: 1. No evidence of lower extremity DVT on the right or left. 2. Elongated fluid in the proximal to mid left calf. The rectal diagnosis is muscle tear versus dissecting Santo cyst. 3. 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 Get Franco MD Knee MRI 05/15/16 Signed Impressions: Service Date/Time: Sunday, May 15, 2016 16:51 - CONCLUSION: 1. Prominent edema in the medial calf with prominent fluid signal between the medial gastrocnemius and soleus muscles. Differential diagnosis is ruptured Santo cyst versus muscle strain. No fluid-filled gap in muscle fibers is seen. There is also adjacent superficial soft tissue edema in this region. 2. Small horizontal tear of the body of the medial meniscus. 3. Small joint effusion. 4. Mild reactive bony edema in the patella. 5. No evidence of osteomyelitis. 6. Moderate focal medial facet patellar chondromalacia. Get Franco MD Knee X-Ray 05/14/16 Signed Impressions: Service Date/Time: Saturday, May 14, 2016 15:44 - CONCLUSION: Negative for fracture or dislocation. Follow up in 7-10 days is suggested if symptoms persist. Alexy Padron MD FACR Objective Remarks GENERAL: Patient is 66 yo intubated but responding to commands SKIN: Warm and dry. HEAD: Normocephalic. EYES: No scleral icterus. No injection or drainage. NECK: Supple, trachea midline. No JVD or lymphadenopathy. Orotracheally intubated. CARDIOVASCULAR: Regular rate and rhythm without murmurs, gallops, or rubs. RESPIRATORY: Breath sounds equal bilaterally. No accessory muscle use. GASTROINTESTINAL: Abdomen soft, non-tender, nondistended. MUSCULOSKELETAL: No cyanosis, or edema. Neuro: GCS 11 T, patient currently on CPAP trials responding to commands appropriately Urinary Catheter: Yes Date of Insertion: May 18, 2016 Line: Central Venous Catheter Side: Right Location: Internal, Jugular A/P Assessment and Plan NEURO: Acute encephalopathy Alcohol dependence -GCS 11 T, follows commands propofol discontinued yesterday - Ativan discontinued - Supplement thiamine and multivitamin -Avoid any sedatives and long-acting narcotics -If patient displays symptoms of alcohol withdrawal consider Haldol/Ativan/ Precedex RESP: Respiratory insufficiency History of asthma -Continue with vent support keep sat >92% -DuoNeb every 6 hours and when necessary, ventilator bundle -Continue CPAP trials, currently 11/22.40, - SBT- RSBI 77 NOF -35 TV 540 RR 28-plan to extubate this a.m. CV: Atrial fibrillation with rapid ventricular response -Monitor HR and BP keep MAP>65mmHg. -Currently normal sinus rhythm -Amiodarone 400mg Q12, -Echo 05/17: EF 45-50%, no RWMA GI/HEME: Upper GI bleed/large duodenal ulcer-resolved Severe anemia requiring transfusion Liver cirrhosis -s/p Arteriogram with coli and embolization of right gastric and GDA 05/18 Bleeding scan positive for GI bleed in small bowel probably in proximal Jejunum 05/20 Thrombocytopenia -IV Protonix and Sandostatin drips, s/p EGD 05/22: multiple duodenal ulcers, no active bleeding-discontinued 05/26/16 -Consider transitioning Protonix drip to BID following discussion with GI -Monitor CBC Keep Hgb >8, platelet count 94 continue to monitor -Surgery is following- Dr. Novak- patient is high risk for surgery. -s/p repeat EGD 05/18 which showed duodenal ulcers with visible vessels s/p Epi injection and cauterization -EGD 05/16/16 shows large duodenal ulcer. Unable to visualize most of stomach and duodenum due to large amount of clot present -s/p transfusion 2units PRBC 05/19 -Continue tube feeds with Nepro at 30 cc/hr -Received 16 units PRBC since admission, 2u FFP, 2u PLT -Tube feeds Nepro at goal : Acute kidney failure Hypernatremia -Monitor renal function, I/O's, avoid nephrotoxins. - Cr: 3.77->3.94-> 3.45->2.51 today -On PO bicarb 650mg Q8, on Bumex 2mg IV q8h -Place on Free water 250ml Q8 monitor sodium level. -Nephrology Dr. Johnson is following ID: -Continue empiric abx (Rocephin started on 05/19; will complete a 7-day course and consider discontinuing). Monitor for signs of infection (Fever, WBC) culture if spikes fever. 05/14 BC: No growth 05/14 sputum cx: No growth 05/14, 05/17 urine cx: No growth ENDO: -SSI (medium scale) , still blood glucose levels in the 200 increase Levemir insulin 10 units BID for glycemic control PROPH: -Bilateral lower extremity SCDs. Protonix BID, infusion discontinued LINES: -Utilize peripheral IVs, Right IJ CVP placed 05/18 Level 3 Discussed with AUTISTIC TE[employer]ER at bedside Physician Judy Heath MD May 28, 2016 11:10
--- NOTE | 2016-05-28 11:13 | HHI.NPPN ---
Subjective History of Present Illness The patient is a 65 yo [place] male who presented to this facility on 05/14 with complaints of continued L knee pain. Pt lethargic and not providing me with any information. Family not present. Information obtained from previous medical record. Was seen at [facility] ED on 05/11 with same complaint and was suspected at that point that he had septic arthritis and was prescribed Ibuprofen and Clindamycin. He has a PMHx of osteomyelitis with R great toe amputation in the past. It does not appear that he has any PMHx of CKD, but last labs that I see are from 2014. SCr baseline at that time as 0.8-0.9. Admitting SCr 5.38 at that improved slightly to 5.28 at consult. Interval History Pt on CPAP and planned for extubation today. Alert and is tracking. Does shake head to answer (Nini Ahumada) Review of Systems General General Remarks Unobtainable today. (Nini Ahumada) Objective Data Data 05/27/16 05/28/16 19:00 07:00 Intake Total 481 ml 1572 ml Output Total 2425 ml 2075 ml Balance -1944 ml -503 ml IV Total 136 ml 1009 ml Tube Feeding 345 ml 63 ml Other 500 ml Output Urine Total 2425 ml 2075 ml # Bowel Movements 0 Vital Signs Date Time Temp Pulse Resp B/P Pulse Ox O2 Delivery O2 Flow Rate FiO2 05/28/16 10:00 70 05/28/16 08:07 40 05/28/16 08:01 95 40 05/28/16 08:00 60 05/28/16 08:00 69 05/28/16 08:00 98.6 69 18 127/59 100 05/28/16 06:00 66 05/28/16 04:00 40 05/28/16 04:00 67 05/28/16 04:00 98.4 67 18 120/59 98 05/28/16 03:57 98 40 05/28/16 02:00 66 05/28/16 01:06 100 50 05/28/16 00:00 98.4 67 16 127/57 100 05/28/16 00:00 66 05/28/16 00:00 60 05/27/16 22:23 100 60 05/27/16 22:00 67 05/27/16 20:00 98.0 67 24 127/57 100 05/27/16 20:00 67 05/27/16 20:00 100 05/27/16 18:00 69 05/27/16 17:06 100 30 05/27/16 16:00 30 05/27/16 16:00 98.6 100 15 108/55 98 05/27/16 16:00 102 05/27/16 14:00 105 05/27/16 13:48 95 30 05/27/16 12:00 30 05/27/16 12:00 98.3 105 19 121/58 94 05/27/16 12:00 105 (Nini Ahumada) -: 05/28/16 0240 05/28/16 0240 Medication Review Current Medications Medications (Trade) Dose Ordered Sig/Irene Route Start Time Stop Time Status Last Admin (NS Flush) 2 ml UNSCH PRN IV FLUSH 05/14/16 17:30 (NS Flush) 2 ml BID IV FLUSH 05/14/16 21:00 05/28/16 09:00 (Zofran Inj) 4 mg Q6H PRN IVP 05/14/16 17:30 (Narcan Inj) 0.4 mg UNSCH PRN IV 05/14/16 17:30 (Symbicort 80-4.5 Mcg Inh) 2 puff BID INH 05/14/16 21:00 05/28/16 09:00 (Romazicon Inj) 0.2 mg Q1M PRN IV PUSH 05/14/16 20:00 (Sodium Bicarbonate) 650 mg Q8HR PO 05/15/16 14:00 05/28/16 05:01 (Tylenol) 650 mg Q6HR PRN PO 05/15/16 20:00 (Vitamin B1) 100 mg DAILY PO 05/17/16 09:00 05/28/16 09:07 Miscellaneous Information Patient in critical care unit? Ass... Q361D .XX 05/16/16 21:15 (Peridex 0.12% Liq) 15 ml BID@08,20 MT 05/17/16 20:00 05/28/16 08:00 (NS Flush) DAILY IVF 05/19/16 09:00 05/28/16 09:00 (NS Flush) UNSCH PRN IVF 05/18/16 18:15 05/21/16 22:46 (D50w (Vial) Inj) 25 ml UNSCH PRN IV PUSH 05/19/16 08:45 (Glucagon Inj) 1 mg UNSCH PRN OTHER 05/19/16 08:45 Insulin Human Regular 1 1 Q6H SQ 05/19/16 08:45 05/28/16 08:45 Ceftriaxone Sodium 1000 mg/ Sodium Chloride 100 ml @ 200 mls/hr Q24H IV 05/19/16 09:00 05/28/16 09:07 (Cordarone Inj/ D5W ([place]) Inj) 250 ml @ 0 mls/hr CONTINUOUS IV 05/21/16 00:45 05/23/16 22:44 (Tears Naturale Opth Soln) 1 drop BID EACH EYE 05/21/16 21:00 05/28/16 09:08 (Tears Naturale Opth Soln) 1 drop UNSCH PRN EACH EYE 05/21/16 10:45 (Cordarone) 400 mg Q12H PO 05/24/16 12:00 05/28/16 01:10 (Free Water) 250 ml Q8HR G-TUBE 05/25/16 08:45 05/28/16 05:02 (Protonix Inj) 40 mg Q12H IV PUSH 05/25/16 18:00 05/28/16 05:01 (Mycostatin Powder) 1 applic Q12HR TOPICAL 05/26/16 11:00 05/28/16 09:08 (Diuril Inj) 250 mg DAILY IV 05/27/16 09:00 05/28/16 09:07 (Bumex Inj) 1 mg Q12HR IV PUSH 05/27/16 21:00 05/28/16 09:07 Insulin Detemir 10 units 10 units Q12HR SQ 05/27/16 21:00 05/28/16 09:06 (KCl 40 Meq Premix Inj) 100 ml @ 25 mls/hr Q4H IV 05/28/16 04:45 05/28/16 12:44 05/28/16 09:06 (Nini Ahumada) Physical Exam General Appearance: No Acute Distress, Comfortable (Nini Ahumada) Eyes Eye Exam: Sclera White (Nini Ahumada) Pulmonary Resp Exam: Clear Bilaterally, Breath Sounds Equal, No Distress (Nini Ahumada) Cardiology CV Exam: Regular, Normal Sinus Rhythm, Good Perfusion (Nini Ahumada) Gastrointestinal/Abdomen GI Exam: Soft, Non-Tender (Nini Ahumada) Integumentary Skin Exam: Clear, Warm (Nini Ahumada) Extremeties Extremities Exam: Moderate Edema (primarily upper extremities, trace edema legs. 1+ pitting edema hips.), Pitting Edema Extremeties Remarks 2+ pitting bilat hips. 1+ BUE (Nini Ahumada) Neurologic Neuro Exam: Sedated (Nini Ahumada) Assessment/Plan Discussed Condition With: Patient Problem List: (1) Acute renal failure Plan: Resolving acute kidney injury. SCr improving and much improved UOP. Continue on bumetanide 1 mg every 12 hourly and Diuril 250mg IV QD Planned for extubation today Defer potassium supplementation to critical care. Medications should be adjusted for the patient's renal dysfunction. Avoid nephrotoxic agents such as iodinated contrast and NSAIDs. Avoid gadolinium when eGFR <30 (2) Acidosis Plan: Improved. D/C bicarb supplementation (3) Anemia Plan: Endoscopy report reviewed. Apparently evidence of GI bleed with large duodenal ulcer. Serology negative (4) Diabetes mellitus Plan: Mgmt as per primary team (5) Pain of left calf Plan: Potential muscle tear versus strain as per imaging studies. No evidence of DVT (6) Cirrhosis Plan: Suggested by imaging reports. (Nini Ahumada) Plan The exam, history, and the medical decision-making described in the above note were completed with the assistance of the [employer]. I reviewed and agree with the findings presented. Consider reducing diuretics tomorrow. (Vero Johnson MD) Problem Qualifiers (1) Anemia: Qualified Code: D64.9 - Anemia, unspecified type (2) Diabetes mellitus: Qualified Code: E11.8 - Type 2 diabetes mellitus with complication, without long-term current use of insulin (3) Cirrhosis: Qualified Code: K74.60 - Cirrhosis of liver without ascites, unspecified hepatic cirrhosis type Nini Ahumada May 28, 2016 11:13 Vero Johnson MD May 29, 2016 10:17
[2016-05-28] MEDS ORDERED: DEXAMETHASONE SOD PHOS 4 MG/ML VIAL IV PUSH ONE (13:15)
[2016-05-28] MEDS ORDERED: RESP: RACEPINEPHRINE 2.25% 0.5 ML NEB NEB ONE (13:15)
[2016-05-28 13:36] LABS: BICARBONATE 32.9 MEQ/L (21.0-32.0)
[2016-05-28] MEDS: RESP: ALBUTEROL 2.5 MG/3 ML NEB (PRN) NEB ×3 (14:52→23:30)
[2016-05-28] MEDS: DEXAMETHASONE SOD PHOS 4 MG/ML VIAL IV PUSH SCH (18:26)
[2016-05-29] VITALS (13 sets, daily range): BP systolic 105–142; BP diastolic 50–89; PULSE 72–79; RESP 18–22; TEMP 97.2–98.3; O2SAT 92–98
[2016-05-29] MEDS: INSULIN NovoLIN REGULAR SUPPLEMENTAL SCALE SQ SCH ×4 (02:45→21:30)
[2016-05-29 05:03] LABS: HEMATOCRIT 23.6 % (39.0-51.0); MEAN CELL VOLUME 88.8 FL (80.0-100.0); MEAN CORPUSCULAR HEMOGLOBIN 29.8 PG (27.0-34.0); MEAN CORPUSCULAR HGB CONC 33.5 % (32.0-36.0); PLATELET COUNT 78 TH/MM3 (150-450); RED BLOOD COUNT 2.66 MIL/MM3 (4.50-5.90); RED CELL DISTRIBUTION WIDTH 20.2 % (11.6-17.2); WHITE BLOOD COUNT 5.8 TH/MM3 (4.0-11.0)
[2016-05-29 05:20] LABS: BICARBONATE 32.7 MEQ/L (21.0-32.0); POTASSIUM 3.9 MEQ/L (3.5-5.1)
[2016-05-29 05:24] LABS: REVIEW FLAG FINAL
[2016-05-29] MEDS: FREE WATER G-TUBE SCH ×2 (06:00→13:48)
[2016-05-29] MEDS: DEXAMETHASONE SOD PHOS 4 MG/ML VIAL IV PUSH SCH ×4 (06:25→18:30)
[2016-05-29] MEDS: NYSTATIN 100,000 U/GM PWD 15 GM BTL TOPICAL SCH ×3 (06:25→21:28)
[2016-05-29] MEDS: PANTOPRAZOLE SODIUM 40 MG VIAL IV PUSH SCH ×2 (06:25→18:30)
[2016-05-29] MEDS: CHLORHEXIDINE 0.12% (ORAL KIT) 15 ML CUP MT SCH (08:00)
--- NOTE | 2016-05-29 08:39 | HHI.CCPN ---
Subjective Remarks/Hospital Course Patient is a 65-year-old male with past medical history significant for type 2 diabetes, asthma and history of alcohol dependence who presents to the emergency department on 05/14/73 for evaluation of left knee pain. His workup revealed he had a elevated ESR at >140 and CRP at 26.40. Orthopaedics Dr. Bolaños. MRI did not show any evidence of infection. She was also found to be anemic with Hemoccult positive hemoglobin 6.8 and GI was consulted. Patient' s baseline creatinine is not known but he presented with BUN of 103 creatinine 5.39. Since admission patient received a total of 2 units PRBC. He underwent EGD yesterday and there was a lot of clot in the stomach. Evaluation of stomach was impossible due to large amount of blood. Dr. Muse was able to visualize a large duodenal ulcer which was not actively bleeding at that time. According to him he plan to redo the EGD tomorrow 05/18/16. Post EGD patient was transferred to the ICU yesterday evening due to high risk of recurrent bleed , need for possible IR embolization. According to the notes patient has not been recently drinking but was taking Ibuprofen 800mg po TID at home on the pain. Today regarding critical care medicine was consulted for altered mentation and A. fib with RVR. On my evaluation patient with very lethargic hardly wakes up able to state his name but very slurred speech. An ammonia level checked was normal. Patient received last dose of Ativan around 10 AM. My discussion with Dr. Muse he is planning to do endoscopy EGD again tomorrow. Because of questionable airway protection, GCS about 8 and upper GIB and this will also facilitate bedside EGD tomorrow 05/18 Patient is sedated with Diprivan and intubated. On Protonix and bicarb drips. Afebrile. For EGD today. 05/19 Patient s/p EGD yesterday with showed multiple duodenal ulcers with visible vessel s/p EPi injection and cauterization. Late afternoon yesterday became rebled became hypotensive and started on Levophed now 7 mics. He was given 4 units PRBC for Hgb 5.6 underwent arteriogram with coil and embolization of right gastric and GDA. Given additional 1unit PRBC, 2u FFP and 1u PLT overnight. Hgb 7.4 this morning from 10.1 last night. Placed on Amio drip overnight sedated with Diprivan. 05/20 Patient remains intubated and and sedated with Diprivan on Amio drip. Renal function worse today with Cr: 3.43 from 2.86 and UO: 475 ml in 24 hrs. Hgb 7.7 this morning s/p transfusion 2units PRBC yesterday. 05/21 Patient remains sedated with Diprivan and intubated. Tolerated CPAP for all day yesterday. Bleeding scan was positive for GI bleed in small bowel ( proximal Duodenum) Received total 3 units PRBC since yesterday and 1unit PLT. Hgb 9.2 this morning. Renal function is worse with Cr: 3.81 from 3.43 with UO:700ml in 24hrs. Patient went into Afib with RVR and placed on Amio drip. 05/22 Patient remains sedated with Diprivan and intubated. For repeat EGD today. On Sandostatin, Protonix and Amio drips. H/H stable. Renal function similar to yesterday with Cr: 3.80 however his UO is overall better- 2L in 24 hrs. 05/23: Drowsy off sedation, remains orally intubated on mechanical ventilation. 05/24: Currently on sedation vacation. Remains orally intubated on mechanical ventilation. Not arousable. No acute events overnight. Cr remains elevated to 3.88; adequate UOP 2300 cc over past 24 hours. 05/25 Patient remains sedated with Diprivan and intubated. On Sandostatin and Protonix drips. Afebrile. 05/26 : Tmax 99.3. This a.m. Protonix, octreotide infusions discontinued, GI service signed off. The patient was able to tolerate CPAP trials for greater than 8 hours yesterday. CPAP trials initiated this a.m. with plans for possible extubation. The patient continues aggressive diuresis greater than 3 L off the last 24 hours. 05/27: The patient was diuresed 4 L off in the last 24 hours. Slight improvement in creatinine, nephrology following, Bumex decreased to 1 mg twice a day. Potassium supplement mentation when necessary. The patient has been on CPAP since 8:30 this morning without difficulty. Patient is awake and responsive all sedation stopped. SBT trials underway plan for trial of extubation. 05/28: Afebrile Yesterday evening the patient failed SBT trial, patient was very lethargic. The patient was placed continue on CPAP now for greater than 24 hours, with plans to at a trial of extubation. 05/29: The patient was successfully extubated yesterday. The patient has been weaned down to O2 at 3 L nasal cannula with O2 sats 97%. The patient is alert and responsive, though weak in voice. The patient was placed on Decadron for 24 hours for possible airway edema, secondary to stridor upon extubation yesterday, with resolution. The patient will receive a formal swallow study with a diet advancement. Objective Vital Signs Date Time Temp Pulse Resp B/P Pulse Ox O2 Delivery O2 Flow Rate FiO2 05/29/16 06:00 76 05/29/16 04:00 97.6 18 116/58 96 05/28/16 21:04 Nasal Cannula 3.00 05/28/16 19:22 40 Intake and Output 05/28/16 05/28/16 05/29/16 08:00 16:00 00:00 Intake Total 313 ml 490 ml 0 ml Output Total 875 ml 1000 ml 700 ml Balance -562 ml -510 ml -700 ml Result Diagram: 05/29/16 0340 05/29/16 0340 Imaging Last Impressions Chest X-Ray 05/23/16 0000 Signed Impressions: Service Date/Time: Monday, May 23, 2016 03:26 - CONCLUSION: Tiny bilateral pleural effusions and bibasilar infiltrates. Carroll Joel Jr., MD GI Bleed Scan Nuclear Medicine 05/20/16 0000 Signed Impressions: Service Date/Time: Friday, May 20, 2016 14:25 - CONCLUSION: 1. Positive for gastrointestinal bleed in small bowel, probably at the proximal duodenum. Randy Byrne MD Central Venous Line 05/18/16 0000 Signed Impressions: Service Date/Time: Wednesday, May 18, 2016 00:00 - CONCLUSION: Uncomplicated line placement as above. Wilver Mendoza MD Celiac/Hepatic Arteriogram 05/18/16 0000 Signed Impressions: Service Date/Time: Wednesday, May 18, 2016 16:21 - CONCLUSION: 1. Active bleeding identified off the GDA in the expected location of the duodenum. 2. Successful coil and Gelfoam embolization of the right gastric and GDA as detailed above. Wilver Mendoza MD Renal Ultrasound 05/15/16 0000 Signed Impressions: Service Date/Time: Sunday, May 15, 2016 10:50 - CONCLUSION: 1. Kidneys within normal limits. 2. Findings suggesting cirrhosis and portal venous hypertension with varices and recanalized paraumbilical vein. Get Franco MD Lower Extremity Ultrasound 05/15/16 Signed Impressions: Service Date/Time: Sunday, May 15, 2016 08:41 - CONCLUSION: 1. No evidence of lower extremity DVT on the right or left. 2. Elongated fluid in the proximal to mid left calf. The rectal diagnosis is muscle tear versus dissecting Santo cyst. 3. 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 Get Franco MD Knee MRI 05/15/16 Signed Impressions: Service Date/Time: Sunday, May 15, 2016 16:51 - CONCLUSION: 1. Prominent edema in the medial calf with prominent fluid signal between the medial gastrocnemius and soleus muscles. Differential diagnosis is ruptured Santo cyst versus muscle strain. No fluid-filled gap in muscle fibers is seen. There is also adjacent superficial soft tissue edema in this region. 2. Small horizontal tear of the body of the medial meniscus. 3. Small joint effusion. 4. Mild reactive bony edema in the patella. 5. No evidence of osteomyelitis. 6. Moderate focal medial facet patellar chondromalacia. Get Franco MD Knee X-Ray 05/14/16 Signed Impressions: Service Date/Time: Saturday, May 14, 2016 15:44 - CONCLUSION: Negative for fracture or dislocation. Follow up in 7-10 days is suggested if symptoms persist. Alexy Padron MD FACR Objective Remarks GENERAL: Patient is 66 yo male, alert and oriented responding appropriately to questions, weak voice SKIN: Warm and dry. HEAD: Normocephalic. EYES: No scleral icterus. No injection or drainage. NECK: Supple, trachea midline. No JVD or lymphadenopathy. Orotracheally intubated. CARDIOVASCULAR: Regular rate and rhythm without murmurs, gallops, or rubs. RESPIRATORY: Breath sounds equal bilaterally. No accessory muscle use. Nasal cannula 3 L/m GASTROINTESTINAL: Abdomen soft, non-tender, nondistended. MUSCULOSKELETAL: No cyanosis, or edema. Neuro: GCS 15, alert and oriented-appropriate Vascular Central Line Catheter: Yes Assessment to: Remove Date of Insertion: May 18, 2016 Date of Removal: May 29, 2016 Line: Central Venous Catheter Side: Right Location: Internal, Jugular A/P Assessment and Plan NEURO: Acute encephalopathy-resolved Alcohol dependence -GCS 15 - Supplement thiamine and multivitamin -Avoid any sedatives and long-acting narcotics -If patient displays symptoms of alcohol withdrawal consider Haldol/Ativan/ Precedex RESP: Respiratory insufficiency History of asthma -Continue with vent support keep sat >92% -DuoNeb every 6 hours scheduled -Incentive spirometry CV: Atrial fibrillation with rapid ventricular response -Monitor HR and BP keep MAP>65mmHg. -Currently normal sinus rhythm -Amiodarone 400mg Q12 -Echo 05/17: EF 45-50%, no RWMA GI/HEME: Upper GI bleed/large duodenal ulcer-resolved Severe anemia requiring transfusion Liver cirrhosis -s/p Arteriogram with coli and embolization of right gastric and GDA 05/18 Bleeding scan positive for GI bleed in small bowel probably in proximal Jejunum 05/20 Thrombocytopenia -IV Protonix and Sandostatin drips, s/p EGD 05/22: multiple duodenal ulcers, no active bleeding-discontinued 05/26/16 - Protonix BID following discussion with GI -Monitor CBC Keep Hgb >8, platelet count 94 continue to monitor -Surgery is following- Dr. Novak- patient is high risk for surgery. -s/p repeat EGD 05/18 which showed duodenal ulcers with visible vessels s/p Epi injection and cauterization -EGD 05/16/16 shows large duodenal ulcer. Unable to visualize most of stomach and duodenum due to large amount of clot present -s/p transfusion 2units PRBC 05/19 -Received 16 units PRBC since admission, 2u FFP, 2u PLT -Obtain formal swallow study, if passed begin clear liquid diet advance the diet as tolerated : Acute kidney failure Hypernatremia -Monitor renal function, I/O's, avoid nephrotoxins. - Cr:3.94-> 3.45->2.51->2.4 today -PO bicarb 650mg Q8, discontinued 05/28 - Bumex 1mg IV q8h -Place on Free water 250ml Q8 monitor sodium level. -Nephrology Dr. Johnson is following ID: -Continue empiric abx (Rocephin started on 05/19; will complete a 7-day course and consider discontinuing). Monitor for signs of infection (Fever, WBC) culture if spikes fever. 05/14 BC: No growth 05/14 sputum cx: No growth 05/14, 05/17 urine cx: No growth ENDO: -SSI (medium scale) , still blood glucose levels in the 200 increase Levemir insulin 10 units BID for glycemic control PROPH: -Bilateral lower extremity SCDs. Protonix BID, infusion discontinued LINES: -Utilize peripheral IVs, Right IJ CVP placed 05/18-05/29 Level 3 Discussed with HOME ECONOMIST at bedside, and Dr. Oswaldo Real, [facility]. Patient improving, critical care medicine will be signing off, thank you for the consult. Physician Judy Heath MD May 29, 2016 08:39
[2016-05-29] MEDS: SODIUM CHLORIDE 0.9% FLUSH 10 ML FLUSH IV FLUSH SCH ×2 (08:52→21:31)
[2016-05-29] MEDS: SODIUM CHLORIDE 0.9% FLUSH 10 ML FLUSH IVF SCH (08:53)
[2016-05-29] MEDS: THIAMINE HCL 100 MG TAB PO SCH (08:53)
[2016-05-29] MEDS: INSULIN DETEMIR 100 UNITS/ML VIAL SQ SCH ×2 (08:53→21:28)
[2016-05-29] MEDS: BUDESONIDE-FORMOTEROL 80/4.5 MCG INHALER INH SCH ×2 (08:54→21:00)
[2016-05-29] MEDS: BUMETANIDE INJ 1 MG/4 ML VIAL IV PUSH SCH (08:57)
[2016-05-29] MEDS: CHLOROTHIAZIDE SOD 500 MG VIAL IV SCH (08:58)
--- NOTE | 2016-05-29 11:26 | HHI.FPPN ---
Subjective Remarks Mr Gonzalez is extubated and breathing well on his own after some initial stridor. Appreciate, Dr Erazo's help, he spoke to his brother who is making decisions and he is a do not intubate now as well as the prior do not do chest compressions, etc so he is a DNR. Today he does not speak well and is extremely quiet but he nods and follows commands. He moves all his extremities. He does not seem 100% clear and per history there was some increasing problems with cognition prior to this hospitalization. Objective Vitals Vital Signs Date Time Temp Pulse Resp B/P Pulse Ox O2 Delivery O2 Flow Rate FiO2 05/29/16 10:00 74 05/29/16 08:00 78 05/29/16 08:00 98.0 78 20 142/63 94 05/29/16 06:00 76 05/29/16 04:00 74 05/29/16 04:00 97.6 74 18 116/58 96 05/29/16 02:00 72 05/29/16 00:00 97.9 72 20 105/50 98 05/29/16 00:00 72 05/28/16 22:00 71 05/28/16 21:04 94 Nasal Cannula 3.00 05/28/16 20:00 99.1 73 16 112/57 96 05/28/16 20:00 73 05/28/16 19:22 96 Aerosol Mask 40 05/28/16 18:00 105 05/28/16 16:00 97.0 107 18 105/67 99 05/28/16 16:00 60 05/28/16 16:00 69 05/28/16 15:51 96 Aerosol Mask 40 05/28/16 14:00 105 05/28/16 12:00 60 05/28/16 12:00 98.0 102 20 127/57 99 05/28/16 12:00 69 05/28/16 11:30 97 Nasal Cannula 3.00 05/28/16 11:30 97 Nasal Cannula 3 I/O 05/28/16 05/28/16 05/28/16 05/29/16 05/29/16 05/29/16 07:00 15:00 23:00 07:00 15:00 23:00 Intake Total 313 ml 490 ml 0 ml Output Total 875 ml 1000 ml 700 ml 450 ml Balance -562 ml -510 ml -700 ml -450 ml IV Total 0 ml 300 ml 0 ml Tube Feeding 63 ml 90 ml Other 250 ml 100 ml Output Urine Total 875 ml 1000 ml 700 ml 450 ml # Bowel Movements 0 0 Result Diagram: 05/29/1633905/29/16339 Objective Remarks GEN: Patient is a 66-year-old male lying in bed extubated and passed swallowing study CV: Regular rate and rhythm with 3/6 systolic murmur systolic and soft radiating to carotids LUNGS: Clear to anterior auscultation bilaterally. Audible upper airway sounds. ABD: Soft, nondistended with positive bowel sounds. No masses appreciated. EXT: Trace edema of ankle and trace edema of hands, significantly improved overall. NEURO/PSYCH: Awake and alert, able to follow verbal commands. Urinary Catheter: Yes Vascular Central Line Catheter: Yes Date of Insertion: May 18, 2016 Date of Removal: May 29, 2016 Line: Central Venous Catheter Side: Right Location: Internal, Jugular A/P Assessment and Plan 65 y/o male with history of DM and osteomyelitis presented with left leg pain as well as GI bleed, diabetes mellitus. Admitted for anemia, JOSE and left knee pain. Currently in the ICU and extubated. Discharge Planning Unclear, pending critical care course. His brother is making the decisions andhis discharge timing and placement are unclear now. Problem List: (1) Acute encephalopathy Status: Acute Plan: Improved, Pt currently awake and alert Unclear etiology. DDx: delirium, alcohol withdrawal, metabolic encephalopathy, uremia Ammonia level elevated to 57 on 05/24, will give low dose lactulose and can follow will order CT of head without contrast as he has renal failure but there is a possibility of prior infarct with his history of a fib vs other causes of dementia -Critical care consulted: appreciate recs -Pt intubated 05/17 due to lethargy and airway protection -Pt has been undergoing daily CPAP trials, however was initially not extubated due to decreased arousability. Abx: Rocephin 1 g IV qd (05/19 - ) (2) JOSE (acute kidney injury) Status: Acute Plan: Ddx includes pre-renal (dehydration/hypovolemia) vs renal (ATN). Concern for underlying CKD. Associated with decreased eating and drinking prior to presentation. Baseline Cr is 0.83 from 2 years ago, admission Cr is 5.38. Pre- sedation confusion likely due to uremia. -Renal function stable today. JOSE likely due to hypotension vs IV contrast for arterial embolization for evaluation fo GI bleed. -Strict I/Os Nephrology consulted: appreciate recommendations * IV Diuril daily * Sodium bicarbonate PO Q8hrs * Bumex 1mg IV Q12hrs * Renal function continues to improve, no plans for dialysis at this time. * Avoid nephrotoxic agents Imaging: * Renal US: Kidneys unremarkable. Finding suggesting cirrhosis and portal venous HTN with varices and recanalized paraumbilical vein. (3) Anemia Status: Acute Plan: No history of ulcers or blood thinners. Has some recent NSAID use and history of alcohol abuse. DDx: gastric/duodenal ulcer, esophageal varices, diverticulosis, colorectal cancer, polyps, IBD, hemorrhoids.H/H on admission was 6.8/20.6. Admission BUN/Cr ratio 19, suggestive of upper GI bleed and /or dehydration. S/p transfusion on 05/19 due to hemoglobin remaining low at 7.4 Echo: EF 45-50%, mild MR, mild TR -Hemoccult in ED positive. -H&H monitored; Transfuse as needed GI consulted: appreciate recommendations * s/p EGD 05/16 - Large clots in fundus, non-bleeding ulcer in duodenal bulb. Normal esophagus * Repeat EGD 05/18 - duodenal ulcers with visible vessels, cauterized -s/p arteriogram with coli and embolization of right gastric and GDA (05/18 ) * Repeat EGD 05/22 - large duodenal ulcers with no active bleeding * Liver serologies negative * Signed off Gen surgery consulted-appreciate recs: Do not recommend surgery, operative mortality approaching 100% Medications: * Protonix 40mg IV BID * Hold all anticoagulation (Coumadin, Plavix, Aspirin) (4) Atrial fibrillation Status: Acute Plan: Pt developed Afib with RVR. No history of Afib per patient. Given lopressor, cardizem. S/p cardizem infusion 05/17. Holding chemo ppx due to GI bleed -Amiodarone 400mg po Q12hrs -Continue to monitor tele, heart rate (5) Diabetes mellitus Status: Acute Plan: Hold home metformin and glipizide. A1c of 6.1, could be falsely low due to blood loss anemia. Bedside glucose in the 100s-200s -Low-dose sliding scale -Levemir 10units Q12hrs (6) Cirrhosis Status: Acute Plan: Significant alcohol history. Denies alcohol withdrawals. No seizures in past. Cirrhosis seen on Renal US with evident of portal venous HTN with varices. Hepatitis panel negative. -See Ammonia above -Oral Rally pack (7) Asthma Status: Chronic Plan: -Albuterol PRN -Symbicort BID (8) Knee pain, acute Status: Acute Plan: Likely due to muscle tear and/or Santo cyst rupture contributing to pain and associated edema. -Ortho consulted: Appreciate recommendations. Does not look like septic joint because there is no significant effusion. -S/p antibiotics (Vanc 05/14-; Linezolid 05/15-05/16; Cefepime 05/14-05/16) ( Rocephin 05/19- ) -Pain control with Tylenol PO/IV to not exceed 3000mg -Would benefit from PT once acute pain and mental status improves. Imaging: * MRI: Prominent edema in the medial calf with prominent fluid signal between the medial gastrocnemius and soleus muscles. DDX is ruptured Santo cyst versus muscle strain. Small joint effusion. No evidence of osteomyelitis. * LE ultrasound: No evidence of DVT. Elongated fluid in the proximal to mid left calf. DDX is muscle tear versus dissecting Santo cyst. 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 * Left knee XR: Negative for fracture or dislocation (9) FEN Status: Acute Plan: Fluids: Holding, diuresing iv will start po intake today Electrolytes: Potassium low at 2.9, potassium chloride IV 40meq. Sodium elevated to 152. Continue to monitor. Nutrition: Tube feeds DVT ppx: SCDs/TEDs, chemoprophylaxis contraindicated due to GI bleed GI ppx: Protonix Problem Qualifiers (1) Anemia: Qualified Code: D64.9 - Anemia, unspecified type (2) Atrial fibrillation: Qualified Code: I48.0 - Paroxysmal atrial fibrillation (3) Diabetes mellitus: Qualified Code: E11.8 - Type 2 diabetes mellitus with complication, without long-term current use of insulin (4) Cirrhosis: Qualified Code: K74.60 - Cirrhosis of liver without ascites, unspecified hepatic cirrhosis type (5) Asthma: Qualified Code: J45.909 - Uncomplicated asthma, unspecified asthma severity (6) Knee pain, acute: Qualified Code: M25.562 - Acute pain of left knee Chapis Farley MD May 29, 2016 11:26
[2016-05-29] MEDS ORDERED: ACETAMINOPHEN 650 MG/20.3 ML UDC PO PRN (11:30)
[2016-05-29] MEDS: AMIODARONE 200 MG TAB PO SCH (12:00)
--- NOTE | 2016-05-29 12:28 | HHI.NPPN ---
Subjective History of Present Illness The patient is a 65 yo [place] male who presented to this facility on 05/14 with complaints of continued L knee pain. Pt lethargic and not providing me with any information. Family not present. Information obtained from previous medical record. Was seen at [facility] ED on 05/11 with same complaint and was suspected at that point that he had septic arthritis and was prescribed Ibuprofen and Clindamycin. He has a PMHx of osteomyelitis with R great toe amputation in the past. It does not appear that he has any PMHx of CKD, but last labs that I see are from 2014. SCr baseline at that time as 0.8-0.9. Admitting SCr 5.38 at that improved slightly to 5.28 at consult. Interval History Patient extubated. No verbal complaints. Objective Data Data 05/28/16 05/29/16 19:00 07:00 Intake Total 490 ml 0 ml Output Total 1000 ml 1150 ml Balance -510 ml -1150 ml IV Total 300 ml 0 ml Tube Feeding 90 ml Other 100 ml Output Urine Total 1000 ml 1150 ml # Bowel Movements 0 Vital Signs Date Time Temp Pulse Resp B/P Pulse Ox O2 Delivery O2 Flow Rate FiO2 05/29/16 10:00 74 05/29/16 08:00 78 05/29/16 08:00 98.0 78 20 142/63 94 05/29/16 06:00 76 05/29/16 04:00 74 05/29/16 04:00 97.6 74 18 116/58 96 05/29/16 02:00 72 05/29/16 00:00 97.9 72 20 105/50 98 05/29/16 00:00 72 05/28/16 22:00 71 05/28/16 21:04 94 Nasal Cannula 3.00 05/28/16 20:00 99.1 73 16 112/57 96 05/28/16 20:00 73 05/28/16 19:22 96 Aerosol Mask 40 05/28/16 18:00 105 05/28/16 16:00 97.0 107 18 105/67 99 05/28/16 16:00 60 05/28/16 16:00 69 05/28/16 15:51 96 Aerosol Mask 40 05/28/16 14:00 105 -: 05/29/16 0340 05/29/16 0340 Physical Exam General Appearance: No Acute Distress, Comfortable Eyes Eye Exam: Sclera White Pulmonary Resp Exam: Clear Bilaterally, Breath Sounds Equal, No Distress Cardiology CV Exam: Regular, Normal Sinus Rhythm, Good Perfusion Gastrointestinal/Abdomen GI Exam: Soft, Non-Tender Integumentary Skin Exam: Clear, Warm Extremeties Extremities Exam: Moderate Edema (1+ pitting edema lower legs.), Pitting Edema Neurologic Neuro Exam: Sedated Assessment/Plan Discussed Condition With: Patient Problem List: (1) Acute renal failure Plan: Patient extubated. Edema much improved. At this point in time reduce diuretic therapy. Change bumetanide 1 mg IV daily and subsequently changed to by mouth. Discontinue Diuril for the present. Continue free water. Medications should be adjusted for the patient's renal dysfunction. Avoid nephrotoxic agents such as iodinated contrast and NSAIDs. Avoid gadolinium when eGFR <30 (2) Acidosis Plan: Improved. D/C bicarb supplementation (3) Anemia Plan: Endoscopy report reviewed. Apparently evidence of GI bleed with large duodenal ulcer. Serology negative (4) Diabetes mellitus Plan: Mgmt as per primary team (5) Pain of left calf Plan: Potential muscle tear versus strain as per imaging studies. No evidence of DVT (6) Cirrhosis Plan: Suggested by imaging reports. Plan The exam, history, and the medical decision-making described in the above note were completed with the assistance of the JOSUÉ. I reviewed and agree with the findings presented. Consider reducing diuretics tomorrow. Problem Qualifiers (1) Anemia: Qualified Code: D64.9 - Anemia, unspecified type (2) Diabetes mellitus: Qualified Code: E11.8 - Type 2 diabetes mellitus with complication, without long-term current use of insulin (3) Cirrhosis: Qualified Code: K74.60 - Cirrhosis of liver without ascites, unspecified hepatic cirrhosis type Vero Johnson MD May 29, 2016 12:28
[2016-05-29] MEDS: RESP: ALBUTEROL 2.5 MG/IPRATROPIUM 0.5 MG NEB (SCH) NEB ×2 (15:27→19:56)
--- NOTE | 2016-05-29 17:24 | RADRPT ---
EXAM DATE/TIME: 05/29/2016 17:04 [facility] COMPARISON: No previous studies available for comparison. INDICATIONS : Altered mental status; history of worsening dementia. RADIATION DOSE: 41.03 CTDIvol (mGy) MEDICAL HISTORY : Cardiovascular disease. SURGICAL HISTORY : None. ENCOUNTER: Initial ACUITY: 1 day PAIN SCALE: 0/10 LOCATION: cranial TECHNIQUE: Multiple contiguous axial images were obtained of the head. Using automated exposure control and adj ustment of the mA and/or kV according to patient size, radiation dose was kept as low as reasonably a chievable to obtain optimal diagnostic quality images. FINDINGS: There is diffuse atrophy. No signs of acute infarct, hemorrhage, or mass. No fractures. CONCLUSION: No acute disease. Myron Henderson MD on May 29, 2016 at 17:23 Board Certified Radiologist. This report was verified electronically.
--- NOTE | 2016-05-29 21:10 | HHI.HCPN ---
Reason for visit a. To assist with evaluation and management of symptoms including: pain; encephalopathy; dyspnea b. To assist medical decision maker(s) with: better understanding of current medical conditions; weighing benefits/burdens of medical treatment options; making medical treatment decisions. . Subjective/Interval History Mr. Gonzalez was successfully extubated on 05/29/16. There was concern for airway edema postextubation and he was started on Decadron. At time of my examination today, patient appears awake and alert. He moves his lips but his voice is in audible at this time. He is able to follow some complex commands such as "show me 3 fingers on your right hand" or wiggle your left toes. I attempt to begin a more substantial than of goals of medical treatment discussion. I don't believe he is able to follow me or comprehend. I am not sure I would be able to have confidence in any of the answers he would give me to those type of questions. Patient is able to deny pain and to deny shortness of breath. Patient's renal failure has improved with creatinine coming down from a high of 5.38 to the current level of 2.41. Diuretics have been decreased. There is been no further evidence of gastrointestinal bleeding. Gastroenterology has signed off. Patient has been afebrile. Pulse, blood pressure, respiratory rate have been stable. Pulse oximetry has been variablepatient has rotated from nasal cannula to an aerosol mask over the last 24 hours. The patient is on no sedating meds at this time. He has not required any analgesics or benzodiazepines.. . Family/friend interactions I spoke by phone with the patient's brother Randy (the healthcare proxy). We spoke about some of the improvements his brother has demonstrated but also spoke about the long road he has a headache him. We spoke about the patient's mental function and uncertainty whether he is going to be able to return to his baseline. I indicated everyone wants that the patient would improve enough to make his own health care decisions so that Randy would not have to make them, but it is uncertain we will be able to get to that point. Given the patient is now off the ventilator we once again discussed CODE STATUS. We discussed alternatives. Randy feels his brother would best be served with "NO CODE" status. Specificallyneftaly feels his brother would not want chest compressions, shock, reintubation, or ACLS drugs. I let Randy no that should his brother become incapacitated to make his own health care decisions he would certainly have the option of changing the resuscitation status. . Advance Directives Living Will: Never completed Health Care Surrogate: Never completed Durable Power of Instructor Business Education: Never completed Advance Directive Specifics Date completed: The patient has never completed a living will or designation of health care surrogate. . Health Care Surrogate(s): The patient has never completed a living will or designation of health care surrogate. . Documented care wishes: There is no written documentation of health care goals or preferences. . Objective Vital Signs Date Time Temp Pulse Resp B/P Pulse Ox O2 Delivery O2 Flow Rate FiO2 05/29/16 19:59 92 Nasal Cannula 3.00 05/29/16 18:00 78 05/29/16 16:00 79 05/29/16 16:00 97.9 79 18 132/89 93 05/29/16 14:00 74 05/29/16 12:00 98.3 79 20 137/62 97 05/29/16 12:00 79 05/29/16 10:00 74 05/29/16 08:00 78 05/29/16 08:00 98.0 78 20 142/63 94 05/29/16 06:00 76 05/29/16 04:00 74 05/29/16 04:00 97.6 74 18 116/58 96 05/29/16 02:00 72 05/29/16 00:00 97.9 72 20 105/50 98 05/29/16 00:00 72 05/28/16 22:00 71 05/28/16 21:04 94 Nasal Cannula 3.00 Intake & Output 05/29/16 05/29/16 07:00 19:00 Intake Total 0 ml 120 ml Output Total 1150 ml 500 ml Balance -1150 ml -380 ml Intake Oral 120 ml IV Total 0 ml 0 ml Tube Feeding 0 ml Output Urine Total 1150 ml 500 ml Physical Exam CONSTITUTIONAL/GENERAL: This is an adequately nourished patient, awake, alert, in then MICU bed. He mouths words but his voice is in audible. He can follow commands but still appears somewhat confused. TUBES/LINES/DRAINS: Kaur catheter; bilateral soft wrist restraints; SCDs; right internal jugular central line; peripheral IV SKIN: No jaundice, rashes, or lesions. . No wounds seen anteriorly. Skin temperature appropriate. Not diaphoretic. EYES: Pupils equal and round. Extraocular movements intact. No scleral icterus. No injection or drainage. Fundi not examined. ENT: Appears to hear me fine. Nose without bleeding or purulent drainage. Throat without visible erythema, exudates, masses, or lesions. NECK: Trachea midline. Supple. CARDIOVASCULAR: Regular rate and rhythm without murmurs, gallops, or rubs. No JVD. RESPIRATORY/CHEST: Symmetric, unlabored respirations. Clear to auscultation. Breath sounds equal bilaterally. No wheezes, rales, or rhonchi. GASTROINTESTINAL: Abdomen soft, non-tender, nondistended. No hepato-splenomegaly , or palpable masses. No guarding. Bowel sounds present. GENITOURINARY: Without palpable bladder distension. Kaur catheter in place. MUSCULOSKELETAL: Extremities without clubbing, cyanosis. There is 1-2+ edema . No calf tenderness. No mottling or clubbing. LYMPHATICS: Not examined NEUROLOGICAL: Awake, alert, follows some complex commands. Still appears confused. Moves all extremities. PSYCHIATRIC: Difficult to assess as patient hasn't in audible voice. No obvious depression or anxiety. No obvious hallucinations or other psychotic thought process. . Diagnostic Tests Laboratory Laboratory Tests Test 05/27/16 05/27/16 05/28/16 05/28/16 04:00 18:54 02:40 13:00 White Blood Count 7.2 TH/MM3 7.7 TH/MM3 (4.0-11.0) (4.0-11.0) Red Blood Count 2.84 MIL/MM3 2.80 MIL/MM3 (4.50-5.90) (4.50-5.90) Hemoglobin 8.5 GM/DL 8.3 GM/DL (13.0-17.0) (13.0-17.0) Hematocrit 24.8 % 24.6 % (39.0-51.0) (39.0-51.0) Mean Corpuscular Volume 87.4 FL 87.9 FL (80.0-100.0) (80.0-100.0) Mean Corpuscular Hemoglobin 29.8 PG 29.8 PG (27.0-34.0) (27.0-34.0) Mean Corpuscular Hemoglobin 34.1 % 34.0 % Concent (32.0-36.0) (32.0-36.0) Red Cell Distribution Width 19.1 % 19.2 % (11.6-17.2) (11.6-17.2) Platelet Count 100 TH/MM3 110 TH/MM3 (150-450) (150-450) Mean Platelet Volume 8.1 FL 8.0 FL (7.0-11.0) (7.0-11.0) Sodium Level 147 MEQ/L 152 MEQ/L 150 MEQ/L (136-145) (136-145) (136-145) Potassium Level 3.1 MEQ/L 2.9 MEQ/L 4.0 MEQ/L (3.5-5.1) (3.5-5.1) (3.5-5.1) Chloride Level 108 MEQ/L 109 MEQ/L 110 MEQ/L (98-107) (98-107) (98-107) Carbon Dioxide Level 30.2 MEQ/L 33.7 MEQ/L 32.9 MEQ/L (21.0-32.0) (21.0-32.0) (21.0-32.0) Anion Gap 9 MEQ/L (5-15) 9 MEQ/L (5-15) 7 MEQ/L (5-15) Blood Urea Nitrogen 107 MG/DL 97 MG/DL (7-18) 91 MG/DL (7-18) (7-18) Creatinine 2.88 MG/DL 2.51 MG/DL 2.39 MG/DL (0.60-1.30) (0.60-1.30) (0.60-1.30) Estimat Glomerular Filtration 22 ML/MIN (>89) 26 ML/MIN (>89) 27 ML/MIN (>89) Rate Random Glucose 210 MG/DL 117 MG/DL 112 MG/DL (74-106) (74-106) (74-106) Calcium Level 7.7 MG/DL 7.6 MG/DL 8.1 MG/DL (8.5-10.1) (8.5-10.1) (8.5-10.1) Phosphorus Level 6.3 MG/DL 5.8 MG/DL (2.5-4.9) (2.5-4.9) Magnesium Level 1.9 MG/DL 1.9 MG/DL (1.5-2.5) (1.5-2.5) Blood Gas Puncture Site RT BRACHIAL Blood Gas Patient Temperature 98.6 Blood Gas HCO3 29 mmol/L (22-26) Blood Gas Base Excess 6.0 mmol/L (-2-2) Blood Gas Oxygen Saturation 76 % (90-100) Arterial Blood pH 7.51 (7.380-7.420) Arterial Blood Partial 37 mmHg (38-42) Pressure CO2 Arterial Blood Partial 42 mmHg Pressure O2 (61-120) Arterial Blood Oxygen Content 10.3 Vol % (12.0-20.0) Arterial Blood 1.9 % (0-4) Carboxyhemoglobin Arterial Blood Methemoglobin 1.0 % (0-2) Blood Gas Hemoglobin 9.7 G/DL (12.0-16.0) Oxygen Delivery Device AMBU Blood Gas Liter Flow 15 L/M Blood Gas Inspired Oxygen 100 % Test 05/29/16 03:40 White Blood Count 5.8 TH/MM3 (4.0-11.0) Red Blood Count 2.66 MIL/MM3 (4.50-5.90) Hemoglobin 7.9 GM/DL (13.0-17.0) Hematocrit 23.6 % (39.0-51.0) Mean Corpuscular Volume 88.8 FL (80.0-100.0) Mean Corpuscular Hemoglobin 29.8 PG (27.0-34.0) Mean Corpuscular Hemoglobin 33.5 % Concent (32.0-36.0) Red Cell Distribution Width 20.2 % (11.6-17.2) Platelet Count 78 TH/MM3 (150-450) Mean Platelet Volume 8.0 FL (7.0-11.0) Sodium Level 153 MEQ/L (136-145) Potassium Level 3.9 MEQ/L (3.5-5.1) Chloride Level 111 MEQ/L (98-107) Carbon Dioxide Level 32.7 MEQ/L (21.0-32.0) Anion Gap 9 MEQ/L (5-15) Blood Urea Nitrogen 92 MG/DL (7-18) Creatinine 2.41 MG/DL (0.60-1.30) Estimat Glomerular Filtration 27 ML/MIN (>89) Rate Random Glucose 172 MG/DL (74-106) Calcium Level 7.8 MG/DL (8.5-10.1) Phosphorus Level 6.6 MG/DL (2.5-4.9) Magnesium Level 2.0 MG/DL (1.5-2.5) . Result Diagram: 05/29/16 0340 05/29/16 0340 Microbiology All cultures to date show no growth. . Imaging Last Impressions Head CT 05/29/16 0000 Signed Impressions: Service Date/Time: Sunday, May 29, 2016 17:04 - CONCLUSION: No acute disease. Myron Henderson MD Chest X-Ray 05/27/16 0600 Signed Impressions: Service Date/Time: Friday, May 27, 2016 04:50 - CONCLUSION: Hazy density bases being worse on the left representing some consolidation, atelectasis and likely mild effusions. Questionable asymmetric density in the right lung apex. This area could be further evaluated with CT examination. Olegario Heart MD GI Bleed Scan Nuclear Medicine 05/20/16 0000 Signed Impressions: Service Date/Time: Friday, May 20, 2016 14:25 - CONCLUSION: 1. Positive for gastrointestinal bleed in small bowel, probably at the proximal duodenum. Randy Byrne MD Central Venous Line 05/18/16 0000 Signed Impressions: Service Date/Time: Wednesday, May 18, 2016 00:00 - CONCLUSION: Uncomplicated line placement as above. Wilver Mendoza MD Celiac/Hepatic Arteriogram 05/18/16 0000 Signed Impressions: Service Date/Time: Wednesday, May 18, 2016 16:21 - CONCLUSION: 1. Active bleeding identified off the GDA in the expected location of the duodenum. 2. Successful coil and Gelfoam embolization of the right gastric and GDA as detailed above. Wilver Mendoza MD Renal Ultrasound 05/15/16 0000 Signed Impressions: Service Date/Time: Sunday, May 15, 2016 10:50 - CONCLUSION: 1. Kidneys within normal limits. 2. Findings suggesting cirrhosis and portal venous hypertension with varices and recanalized paraumbilical vein. Get Franco MD Lower Extremity Ultrasound 05/15/16 0000 Signed Impressions: Service Date/Time: Sunday, May 15, 2016 08:41 - CONCLUSION: 1. No evidence of lower extremity DVT on the right or left. 2. Elongated fluid in the proximal to mid left calf. The rectal diagnosis is muscle tear versus dissecting Santo cyst. 3. 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 Get Franco MD Knee MRI 05/15/16 0000 Signed Impressions: Service Date/Time: Sunday, May 15, 2016 16:51 - CONCLUSION: 1. Prominent edema in the medial calf with prominent fluid signal between the medial gastrocnemius and soleus muscles. Differential diagnosis is ruptured Santo cyst versus muscle strain. No fluid-filled gap in muscle fibers is seen. There is also adjacent superficial soft tissue edema in this region. 2. Small horizontal tear of the body of the medial meniscus. 3. Small joint effusion. 4. Mild reactive bony edema in the patella. 5. No evidence of osteomyelitis. 6. Moderate focal medial facet patellar chondromalacia. Get Franco MD Knee X-Ray 05/14/16 0000 Signed Impressions: Service Date/Time: Saturday, May 14, 2016 15:44 - CONCLUSION: Negative for fracture or dislocation. Follow up in 7-10 days is suggested if symptoms persist. Alexy Padron MD FACR . Procedures * Attempted arthrocentesis * Right internal jugular central line placement * Orotracheal intubation * EGD 05/16/2016 and 05/18/2016 and 05/22/16 * Gastro-duodenal artery embolization 05/18/16 . Assessment and Plan Disease Oriented Problem List: (1) GI bleed Comment: EGD demonstrated multiple large round and deep duodenal ulcers. Ulcers were noted in the duodenal bulb and in the second part. Patient has undergone gastro-duodenal embolization. He has undergone 3 EGDs since hospital admission. He has had multiple transfusions. Bleeding appears to have stopped. . (2) JOSE (acute kidney injury) Comment: Initial GFR was 11. Kidney function has improved with GFR now up to 27. Nephropathy probably secondary to the patient's underlying diabetes and possibly to underperfusion due to blood loss anemia. . (3) Cirrhosis Comment: Patient noted to have cirrhosis and portal hypertension on imaging. Patient with long history of excessive alcohol consumption. . (4) Acute encephalopathy Comment: Etiology of encephalopathy is uncertain. May be a multifactorial delirium and/or a metabolic encephalopathy. Appears to be improving but apparent confusion persists. . (5) Knee pain, acute Comment: Etiology is still uncertain. No fluid was available to tap. Orthopedics did not think this was an infected joint. MRI of the extremity showed no evidence of osteomyelitis. There was a small horizontal tear of the body of the medial meniscus. There was a small joint effusion. There was moderate focal medial facet patellar chondromalacia. There was also evidence of fluid which possibly represented a ruptured Santo cyst versus a muscle strain. . (6) Diabetes mellitus (7) Anemia Comment: Patient has blood loss anemia. Uncertain what underlying hemoglobin normally is. Patient was found to have multiple to lauded no ulcers.. There may also be an underlying nutritional anemia related to the patient's alcohol use. . (8) Alcohol abuse Comment: Family reports patient normally drinks 6-7 alcoholic drinks per day. Has not had complications such as blackouts or seizures to the knowledge of family. .. (9) Asthma Comment: Patient has had asthma since childhood. . Symptom Scale: (1) Pain 0-10 Scale: Unable to quantify Comment: Had been having 9/10 pain in the left knee. No other known prehospitalization pain syndromes. Other possible sources of pain include prolonged bedbound status; Kaur catheter; edema in the extremities and scrotum ; restraints; and vascular access lines. Patient denies pain today. No recent use of narcotic analgesics required. . (2) Dyspnea 0-10 Scale: 0 Comment: Patient with long history of asthma requiring at least 2 doses of a albuterol inhaler daily at baseline. Patient had required intubation and mechanical ventilation but now extubated and appearing comfortable with nasal cannula oxygen. . (3) Encephalopathy 0-10 Scale: Unable to quantify Comment: Patient is awake and alert but still appears confused. He is able to follow some commands. His baseline status is still a little unclear. . . Pertinent Non-Medical Issues Psychosocial: Patient psychosocial support in this area comes primarily from his brother Randy and Randy's who live here. Patient is unmarried, has no children, but does have some close friends in his home state of [place]. Spiritual: Christianity and spirituality have not played an important role in his life. Legal: Patient has never completed an advanced directive. Under [place] statutes, his brother, Randy, would be his legal proxy for healthcare decision- making. Randy has accepted this role. Ethical issues impacting care: Patient is currently incapacitated to make his own health care decisions. It is unclear if he will regain capacity. His encephalopathy has improved, but he still appears somewhat confused. . Important Contacts * Randy Gonzalez (brother and health care proxy) [phone] . Prognosis Mr Gonzalez is a 66 y/o male diabetic with known hepatic cirrhosis who was critically ill here with respiratory failure requiring intubation/mechanical ventilation; GI bleeding from multiple duodenal ulcers, renal failure, and encephalopathy of uncertain etiology. He had been suffering from a significant cognitive decline even prior to this hospitalization. He has received 16 units of PRBCs since admission. He is not felt to be a surgical candidate. The patient has shown greater improvement than expected. He was successfully extubated and is not showing signs of respiratory distress. GI bleeding has appeared to stop. Renal failure has improved. Though there is some lingering confusion. Patient is now awake and alert. Given patient's prehospitalization trajectory of decline, further ongoing decline is expected. Patient will remain quite vulnerable to infection. It is anticipated he will survive the hospital now. It is uncertain if he will be able to recover to prehospital baseline. Should there be further significant setbacks during this hospitalization, it would be a poor prognostic sign. . . Code Status: No Code (resuscitation status was discussed again with the patient 's health care surrogate. The patient's brother indicated we should not reintubate the patient if he develops respiratory distress again.) Plan == Code Status: NO CODE . Brother does not feel the patient would want reintubation if there was another respiratory decompensation. == Decision making: Patient is incapacitated to make his own health care decisions and it remains uncertain if he will regain capacity. He has no spouse , no children, no surviving parents. He has one surviving brother -- Randy Gonzalez -- who is local and is the appropriate health care proxy. == Goals or medical treatment: Now that the patient is showing signs of improvement, the patient's brother wants to give him every chance to reaches maximal potential. However, brother feels the patient would not want to be resuscitated and specifically would not want to be reintubated. Goals otherwise are aggressive at this time. Brother is open to reviewing goals of medical treatment should there be another significant decline. == Pain: Patient's primary pre-hospital pain syndrome was his knee. Other sources of pain currently could include prolonged bedbound status; edema; restraints; kaur catheter; and vascular access lines. Patient is not requiring analgesics at this time. No further recommendations at this time. == Encephalopathy: The patient probably had a multi-factorial hypoactive delirium / metabolic encephalopathy. He is now awake and alert but does appear confused. He remains unable to speak in an audible voice. == Dyspnea: Currently controlled postextubation. Patient has long history of asthma requiring approximately 2 puffs on an albuterol inhaler daily at baseline. == Edema: Edema has improved significantly with diuretic therapy. Urine output has been good. Renal function has improved. == Palliative care will continue to follow to assist with symptom management and to further clarify goals of medical treatment as the clinical course evolves. . Time Spent Total Floor Time (mins): 40 (Total time including chart review; patient exam; the above reference conversation with the patient's healthcare surrogate; discussion with goals with Dr. Farley , and documentation. ) Face to Face Time (mins): 10 >50% Counseling/Coord of Care: Yes Attestation To help prompt me to consider important information that might be impacting today's encounter and assessment, information from prior notes written by myself or my colleagues may have been "brought forward" into today's note. My signature on this note, however, is an attestation that I personally performed the exam, history, and/or decision-making noted today, and, unless otherwise indicated, the interactions with patient, family, and staff as well as the review of records all occurred today. I also attest that the listed assessment and stated plan reflect my best clinical judgment today based on the combination of historical information, prior notes, and today's exam/ interactions. When time spent is documented, it refers only to time spent today by the signer, or if indicated, combined time spent today by collaborating physician/nurse practitioner. . Rod Erazo MD May 29, 2016 21:10
[2016-05-29] MEDS: LACTULOSE SYRUP 20 GM/30 ML CUP PO SCH (21:28)
[2016-05-30] VITALS (13 sets, daily range): BP systolic 117–171; BP diastolic 65–75; PULSE 75–123; RESP 14–25; TEMP 97.7–98.3; O2SAT 82–99
[2016-05-30] MEDS: AMIODARONE 200 MG TAB PO SCH ×3 (01:32→23:42)
[2016-05-30 05:09] LABS: HEMATOCRIT 24.8 % (39.0-51.0); MEAN CELL VOLUME 89.5 FL (80.0-100.0); MEAN CORPUSCULAR HGB CONC 32.4 % (32.0-36.0); PLATELET COUNT 103 TH/MM3 (150-450); RED BLOOD COUNT 2.77 MIL/MM3 (4.50-5.90); RED CELL DISTRIBUTION WIDTH 19.3 % (11.6-17.2); REVIEW FLAG FINAL; WHITE BLOOD COUNT 5.1 TH/MM3 (4.0-11.0)
[2016-05-30 05:42] LABS: BICARBONATE 34.1 MEQ/L (21.0-32.0); MAGNESIUM 2.2 MG/DL (1.5-2.5); POTASSIUM 3.4 MEQ/L (3.5-5.1)
[2016-05-30] MEDS: INSULIN NovoLIN REGULAR SUPPLEMENTAL SCALE SQ SCH ×4 (06:27→21:00)
[2016-05-30] MEDS: PANTOPRAZOLE SODIUM 40 MG VIAL IV PUSH SCH ×2 (06:28→17:24)
[2016-05-30] MEDS: CHLORHEXIDINE 0.12% (ORAL KIT) 15 ML CUP MT SCH ×2 (08:00→20:00)
[2016-05-30] MEDS: RESP: ALBUTEROL 2.5 MG/IPRATROPIUM 0.5 MG NEB (SCH) NEB ×3 (08:44→19:47)
[2016-05-30] MEDS: INSULIN DETEMIR 100 UNITS/ML VIAL SQ SCH ×2 (09:00→21:00)
[2016-05-30] MEDS: LACTULOSE SYRUP 20 GM/30 ML CUP PO SCH ×2 (09:00→21:00)
[2016-05-30] MEDS: BUDESONIDE-FORMOTEROL 80/4.5 MCG INHALER INH SCH ×2 (09:00→21:00)
[2016-05-30] MEDS: SODIUM CHLORIDE 0.9% FLUSH 10 ML FLUSH IV FLUSH SCH ×2 (09:14→21:00)
[2016-05-30] MEDS: BUMETANIDE INJ 1 MG/4 ML VIAL IV PUSH SCH (09:14)
[2016-05-30] MEDS: NYSTATIN 100,000 U/GM PWD 15 GM BTL TOPICAL SCH ×2 (09:16→21:02)
[2016-05-30] MEDS: THIAMINE HCL 100 MG TAB PO SCH (09:16)
[2016-05-30] MEDS: SODIUM CHLORIDE 0.9% FLUSH 10 ML FLUSH IVF SCH (09:17)
--- NOTE | 2016-05-30 12:06 | HHI.FPPN ---
Subjective Remarks Pt seen and examined this morning. AFVSS. Pt is able to talk, follow verbal commands. He denies pain this morning and is eager to have Vanilla Ice cream. He continues to try to pull out lines and has been requiring soft restraints. ( Hu Flood MD R2) Objective Vitals Vital Signs Date Time Temp Pulse Resp B/P Pulse Ox O2 Delivery O2 Flow Rate FiO2 05/30/16 06:00 77 05/30/16 04:00 79 05/30/16 04:00 98.0 76 14 143/66 95 05/30/16 02:00 75 05/30/16 00:00 98.0 76 14 143/66 95 05/30/16 00:00 76 05/29/16 22:00 78 05/29/16 20:00 97.2 75 22 141/60 98 05/29/16 20:00 75 05/29/16 19:59 92 Nasal Cannula 3.00 05/29/16 18:00 78 05/29/16 16:00 79 05/29/16 16:00 97.9 79 18 132/89 93 05/29/16 14:00 74 I/O 05/29/16 05/29/16 05/29/16 05/30/16 05/30/16 05/30/16 07:00 15:00 23:00 07:00 15:00 23:00 Intake Total 220 ml 100 ml Output Total 450 ml 900 ml 400 ml Balance -450 ml -680 ml -300 ml Intake Oral 220 ml 100 ml IV Total 0 ml Tube Feeding 0 ml Output Urine Total 450 ml 900 ml 400 ml # Bowel Movements 1 (Hu Flood MD R2) Result Diagram: 05/30/16 0445 05/30/16 0445 Objective Remarks GEN: Patient is a 66-year-old male lying in bed extubated and passed swallowing study CV: Regular rate and rhythm with 3/6 systolic murmur systolic and soft radiation to carotids LUNGS: Clear to anterior auscultation bilaterally. ABD: Soft, nondistended with positive bowel sounds. No masses appreciated. EXT: Trace edema of ankle and trace edema of hands, significantly improved overall. NEURO/PSYCH: Awake and alert, able to follow verbal commands. (Hu Flood MD R2) Date of Insertion: May 18, 2016 Date of Removal: May 29, 2016 Line: Central Venous Catheter Side: Right Location: Internal, Jugular (Hu Flood MD R2) A/P Assessment and Plan 65 y/o male with history of DM and osteomyelitis presented with left leg pain as well as GI bleed, diabetes mellitus. Admitted for anemia, JOSE and left knee pain. Currently in the ICU and extubated. sdw: Dr. Farley, Dr. Real Discharge Planning Time table unclear, pending medical improvement. (Hu Flood MD R2) Attending Attestation Patient seen and examined. Case reviewed and discussed with the resident team. Agree with plan of care as discussed with me and documented in the resident note. (Chapis Farley MD) Problem List: (1) Acute encephalopathy Status: Acute Plan: Improved, Pt currently awake and alert Unclear etiology. DDx: delirium, alcohol withdrawal, metabolic encephalopathy, uremia Ammonia level elevated to 57 on 05/24, will give low dose lactulose and can follow -Head CT without contrast ordered, due to renal function, due to concern for prior infarct with hx of a. fib -Critical care consulted, have currently signed off: appreciate recs -Pt intubated 05/17-05/28 due to lethargy and airway protection -Pt underwent almost daily CPAP trials, however was initially not extubated due to decreased arousability. Abx: Rocephin 1 g IV qd (05/19 - 05/28) Imaging: Head CT 05/29: No Acute Disease (2) JOSE (acute kidney injury) Status: Acute Plan: Ddx includes pre-renal (dehydration/hypovolemia) vs renal (ATN). Concern for underlying CKD. Associated with decreased eating and drinking prior to presentation. Baseline Cr is 0.83 from 2 years ago, admission Cr is 5.38. Pre- sedation confusion likely due to uremia. -Renal function stable today. JOSE likely due to hypotension vs IV contrast for arterial embolization for evaluation fo GI bleed. -Strict I/Os Nephrology consulted: appreciate recommendations * Bumex 1mg IV Daily * Will start D5W at 40ml/hr due to hypernatremia * Monitor fluid status and electrolytes closely * Renal function stable * Avoid nephrotoxic agents Imaging: * Renal US: Kidneys unremarkable. Finding suggesting cirrhosis and portal venous HTN with varices and recanalized paraumbilical vein. (3) Anemia Status: Acute Plan: No history of ulcers or blood thinners. Has some recent NSAID use and history of alcohol abuse. DDx: gastric/duodenal ulcer, esophageal varices, diverticulosis, colorectal cancer, polyps, IBD, hemorrhoids.H/H on admission was 6.8/20.6. Admission BUN/Cr ratio 19, suggestive of upper GI bleed and /or dehydration. S/p transfusion on 05/19 due to hemoglobin remaining low at 7.4 Echo: EF 45-50%, mild MR, mild TR -Hemoccult in ED positive. -H&H monitored; Transfuse as needed GI consulted: appreciate recommendations * s/p EGD 05/16 - Large clots in fundus, non-bleeding ulcer in duodenal bulb. Normal esophagus * Repeat EGD 05/18 - duodenal ulcers with visible vessels, cauterized -s/p arteriogram with coli and embolization of right gastric and GDA (05/18 ) * Repeat EGD 05/22 - large duodenal ulcers with no active bleeding * Liver serologies negative * Signed off Gen surgery consulted-appreciate recs: Do not recommend surgery, operative mortality approaching 100% Medications: * Protonix 40mg IV BID, consider transitioning to PO * Hold all anticoagulation (Coumadin, Plavix, Aspirin) (4) Atrial fibrillation Status: Acute Plan: Pt developed Afib with RVR. No history of Afib per patient. Given lopressor, cardizem. S/p cardizem infusion 05/17. Holding chemo ppx due to GI bleed -Amiodarone 400mg po Q12hrs -Continue to monitor tele, heart rate (5) Diabetes mellitus Status: Acute Plan: Hold home metformin and glipizide. A1c of 6.1, could be falsely low due to blood loss anemia. Bedside glucose in the 100s-200s -Low-dose sliding scale -Levemir decreased to 5 units BID -Continue to monitor, adjust as needed (6) Cirrhosis Status: Acute Plan: Significant alcohol history. Denies alcohol withdrawals. No seizures in past. Cirrhosis seen on Renal US with evident of portal venous HTN with varices. Hepatitis panel negative. -See Ammonia above -Oral Rally pack (7) Asthma Status: Chronic Plan: -Albuterol PRN -Symbicort BID (8) Knee pain, acute Status: Acute Plan: Likely due to muscle tear and/or Santo cyst rupture contributing to pain and associated edema. -Ortho consulted: Appreciate recommendations. Does not look like septic joint because there is no significant effusion. -S/p antibiotics (Vanc 05/14-; Linezolid 05/15-05/16; Cefepime 05/14-05/16) ( Rocephin 05/19-05/28) -Pain control with Tylenol PO -Would benefit from PT once acute pain and mental status improves. Imaging: * MRI: Prominent edema in the medial calf with prominent fluid signal between the medial gastrocnemius and soleus muscles. DDX is ruptured Santo cyst versus muscle strain. Small joint effusion. No evidence of osteomyelitis. * LE ultrasound: No evidence of DVT. Elongated fluid in the proximal to mid left calf. DDX is muscle tear versus dissecting Santo cyst. 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 * Left knee XR: Negative for fracture or dislocation (9) FEN Status: Acute Plan: Fluids: D5W 40mls/hr, monitor fluid status closely Electrolytes: Potassium low at 3.4, potassium chloride 40meq x1. Sodium elevated to 155, see fluids above. Nutrition: Diabetic diet DVT ppx: SCDs/TEDs, chemoprophylaxis contraindicated due to GI bleed GI ppx: Protonix (Hu Flood MD R2) Problem Qualifiers (1) Anemia: Qualified Code: D64.9 - Anemia, unspecified type (2) Atrial fibrillation: Qualified Code: I48.0 - Paroxysmal atrial fibrillation (3) Diabetes mellitus: Qualified Code: E11.8 - Type 2 diabetes mellitus with complication, without long-term current use of insulin (4) Cirrhosis: Qualified Code: K74.60 - Cirrhosis of liver without ascites, unspecified hepatic cirrhosis type (5) Asthma: Qualified Code: J45.909 - Uncomplicated asthma, unspecified asthma severity (6) Knee pain, acute: Qualified Code: M25.562 - Acute pain of left knee Hu Flood MD R2 May 30, 2016 12:06 Chapis Farley MD Jun 02, 2016 13:40
[2016-05-30] MEDS: FREE WATER G-TUBE SCH ×2 (14:00→21:03)
--- NOTE | 2016-05-30 17:22 | HHI.NPPN ---
Subjective History of Present Illness The patient is a 65 yo [place] male who presented to this facility on 05/14 with complaints of continued L knee pain. Pt lethargic and not providing me with any information. Family not present. Information obtained from previous medical record. Was seen at [facility] ED on 05/11 with same complaint and was suspected at that point that he had septic arthritis and was prescribed Ibuprofen and Clindamycin. He has a PMHx of osteomyelitis with R great toe amputation in the past. It does not appear that he has any PMHx of CKD, but last labs that I see are from 2014. SCr baseline at that time as 0.8-0.9. Admitting SCr 5.38 at that improved slightly to 5.28 at consult. Interval History Patient appears to be alert but somewhat confused. Objective Data Data 05/29/16 05/30/16 19:00 07:00 Intake Total 120 ml 200 ml Output Total 500 ml 800 ml Balance -380 ml -600 ml Intake Oral 120 ml 200 ml IV Total 0 ml Tube Feeding 0 ml Output Urine Total 500 ml 800 ml # Bowel Movements 1 Vital Signs Date Time Temp Pulse Resp B/P Pulse Ox O2 Delivery O2 Flow Rate FiO2 05/30/16 06:00 77 05/30/16 04:00 79 05/30/16 04:00 98.0 76 14 143/66 95 05/30/16 02:00 75 05/30/16 00:00 98.0 76 14 143/66 95 05/30/16 00:00 76 05/29/16 22:00 78 05/29/16 20:00 97.2 75 22 141/60 98 05/29/16 20:00 75 05/29/16 19:59 92 Nasal Cannula 3.00 05/29/16 18:00 78 -: 05/30/16 0445 05/30/16 0445 Physical Exam General Appearance: No Acute Distress, Comfortable Eyes Eye Exam: Sclera White Pulmonary Resp Exam: Clear Bilaterally, Breath Sounds Equal, No Distress Cardiology CV Exam: Regular, Normal Sinus Rhythm, Good Perfusion Gastrointestinal/Abdomen GI Exam: Soft, Non-Tender Integumentary Skin Exam: Clear, Warm Extremeties Extremities Exam: Moderate Edema (one plus pitting edema dependent thighs but much improved.), Pitting Edema Neurologic Neuro Exam: Sedated Assessment/Plan Discussed Condition With: Patient Problem List: (1) Acute renal failure Plan: Patient still has some edema but much improved. Continue bumetanide 1 mg IV for the present with conversion to by mouth when patient able to tolerate. Continue free water in view of hypernatremia. Medications should be adjusted for the patient's renal dysfunction. Avoid nephrotoxic agents such as iodinated contrast and NSAIDs. Avoid gadolinium when eGFR <30. Patient will also be seen when necessary. (2) Acidosis Plan: Improved. D/C bicarb supplementation (3) Anemia Plan: Endoscopy report reviewed. Apparently evidence of GI bleed with large duodenal ulcer. Serology negative (4) Diabetes mellitus Plan: Mgmt as per primary team (5) Pain of left calf Plan: Potential muscle tear versus strain as per imaging studies. No evidence of DVT (6) Cirrhosis Plan: Suggested by imaging reports. Problem Qualifiers (1) Anemia: Qualified Code: D64.9 - Anemia, unspecified type (2) Diabetes mellitus: Qualified Code: E11.8 - Type 2 diabetes mellitus with complication, without long-term current use of insulin (3) Cirrhosis: Qualified Code: K74.60 - Cirrhosis of liver without ascites, unspecified hepatic cirrhosis type Vero Johnson MD May 30, 2016 17:22
[2016-05-30] MEDS ORDERED: POTASSIUM CHLORIDE 10 MEQ CONTROLLED RELEASE TAB PO ONE (18:00)
--- NOTE | 2016-05-30 20:41 | HHI.HCPN ---
Reason for visit a. To assist with evaluation and management of symptoms including: pain; encephalopathy; dyspnea b. To assist medical decision maker(s) with: better understanding of current medical conditions; weighing benefits/burdens of medical treatment options; making medical treatment decisions. . Subjective/Interval History No significant events overnight. Patient still with a barely audible voice today. Can mouth words fairly well. Continues to be confused but can follow basic commands. Drinking thickened fluids. Was able to stand with stand-by assist of PT today. Denies pain/sob at time of my visit. Afebrile. Tachycardic. BPs stable. Pulse oximtety down to 82 x 1 -- otherwise at 95-100 at 02 at 3 L/min CBC stable. Renal function stable. Head CT unremarkable. . Family/friend interactions No family at bedside. . Advance Directives Living Will: Never completed Health Care Surrogate: Never completed Durable Power of Deicer Element Winder Machine: Never completed Advance Directive Specifics Date completed: The patient has never completed a living will or designation of health care surrogate. . Health Care Surrogate(s): The patient has never completed a living will or designation of health care surrogate. . Documented care wishes: There is no written documentation of health care goals or preferences. . Objective Vital Signs Date Time Temp Pulse Resp B/P Pulse Ox O2 Delivery O2 Flow Rate FiO2 05/30/16 19:49 99 Nasal Cannula 3.00 05/30/16 18:00 110 05/30/16 16:00 116 05/30/16 16:00 97.7 116 16 131/65 82 05/30/16 14:00 114 05/30/16 12:00 123 05/30/16 12:00 98.1 123 20 154/69 98 05/30/16 10:00 79 05/30/16 08:00 97.9 83 25 171/69 98 05/30/16 08:00 83 05/30/16 06:00 77 05/30/16 04:00 79 05/30/16 04:00 98.0 76 14 143/66 95 05/30/16 02:00 75 05/30/16 00:00 98.0 76 14 143/66 95 05/30/16 00:00 76 05/29/16 22:00 78 Intake & Output 05/30/16 05/30/16 07:00 19:00 Intake Total 200 ml 1145 ml Output Total 800 ml 1400 ml Balance -600 ml -255 ml Intake Oral 200 ml 500 ml IV Total 645 ml Output Urine Total 800 ml 1400 ml # Bowel Movements 1 0 . Physical Exam CONSTITUTIONAL/GENERAL: This is an adequately nourished patient, awake, alert, in then MICU bed. He mouths words but his voice is barely audible. Asks for "soda.". He can follow commands but still appears somewhat confused. TUBES/LINES/DRAINS: Kaur catheter; bilateral soft wrist restraints; SCDs; right internal jugular central line; peripheral IV SKIN: No jaundice, rashes, or lesions. . No wounds seen anteriorly. Skin temperature appropriate. Not diaphoretic. EYES: Pupils equal and round. Extraocular movements intact. No scleral icterus. No injection or drainage. Fundi not examined. ENT: Appears to hear me fine. Nose without bleeding or purulent drainage. Lips dry. Throat without visible erythema. there is dry exudate. NECK: Trachea midline. Supple. CARDIOVASCULAR: Regular rate and rhythm without murmurs, gallops, or rubs. No JVD. RESPIRATORY/CHEST: Symmetric, unlabored respirations. Clear to auscultation. Breath sounds equal bilaterally. No wheezes, rales, or rhonchi. GASTROINTESTINAL: Abdomen soft, non-tender, nondistended. No hepato-splenomegaly , or palpable masses. No guarding. Bowel sounds present. GENITOURINARY: Without palpable bladder distension. Kaur catheter in place. MUSCULOSKELETAL: Extremities without clubbing, cyanosis. No edema. . No calf tenderness. No mottling or clubbing. LYMPHATICS: Not examined NEUROLOGICAL: Awake, alert, follows some complex commands. Still appears confused. Moves all extremities. PSYCHIATRIC: Difficult to assess as patient hasn't in audible voice. No obvious depression or anxiety. No obvious hallucinations or other psychotic thought process. . Diagnostic Tests Laboratory Laboratory Tests Test 05/28/16 05/28/16 05/29/16 05/30/16 02:40 13:00 03:40 04:45 White Blood Count 7.7 TH/MM3 5.8 TH/MM3 5.1 TH/MM3 (4.0-11.0) (4.0-11.0) (4.0-11.0) Red Blood Count 2.80 MIL/MM3 2.66 MIL/MM3 2.77 MIL/MM3 (4.50-5.90) (4.50-5.90) (4.50-5.90) Hemoglobin 8.3 GM/DL 7.9 GM/DL 8.0 GM/DL (13.0-17.0) (13.0-17.0) (13.0-17.0) Hematocrit 24.6 % 23.6 % 24.8 % (39.0-51.0) (39.0-51.0) (39.0-51.0) Mean Corpuscular Volume 87.9 FL 88.8 FL 89.5 FL (80.0-100.0) (80.0-100.0) (80.0-100.0) Mean Corpuscular Hemoglobin 29.8 PG 29.8 PG 29.0 PG (27.0-34.0) (27.0-34.0) (27.0-34.0) Mean Corpuscular Hemoglobin 34.0 % 33.5 % 32.4 % Concent (32.0-36.0) (32.0-36.0) (32.0-36.0) Red Cell Distribution Width 19.2 % 20.2 % 19.3 % (11.6-17.2) (11.6-17.2) (11.6-17.2) Platelet Count 110 TH/MM3 78 TH/MM3 103 TH/MM3 (150-450) (150-450) (150-450) Mean Platelet Volume 8.0 FL 8.0 FL 7.7 FL (7.0-11.0) (7.0-11.0) (7.0-11.0) Sodium Level 152 MEQ/L 150 MEQ/L 153 MEQ/L 155 MEQ/L (136-145) (136-145) (136-145) (136-145) Potassium Level 2.9 MEQ/L 4.0 MEQ/L 3.9 MEQ/L 3.4 MEQ/L (3.5-5.1) (3.5-5.1) (3.5-5.1) (3.5-5.1) Chloride Level 109 MEQ/L 110 MEQ/L 111 MEQ/L 113 MEQ/L (98-107) (98-107) (98-107) (98-107) Carbon Dioxide Level 33.7 MEQ/L 32.9 MEQ/L 32.7 MEQ/L 34.1 MEQ/L (21.0-32.0) (21.0-32.0) (21.0-32.0) (21.0-32.0) Anion Gap 9 MEQ/L (5-15) 7 MEQ/L (5-15) 9 MEQ/L (5-15) 8 MEQ/L (5-15) Blood Urea Nitrogen 97 MG/DL (7-18) 91 MG/DL (7-18) 92 MG/DL (7-18) 106 MG/DL (7-18) Creatinine 2.51 MG/DL 2.39 MG/DL 2.41 MG/DL 2.43 MG/DL (0.60-1.30) (0.60-1.30) (0.60-1.30) (0.60-1.30) Estimat Glomerular Filtration 26 ML/MIN (>89) 27 ML/MIN (>89) 27 ML/MIN (>89) 27 ML/MIN (>89) Rate Random Glucose 117 MG/DL 112 MG/DL 172 MG/DL 171 MG/DL (74-106) (74-106) (74-106) (74-106) Calcium Level 7.6 MG/DL 8.1 MG/DL 7.8 MG/DL 8.0 MG/DL (8.5-10.1) (8.5-10.1) (8.5-10.1) (8.5-10.1) Phosphorus Level 5.8 MG/DL 6.6 MG/DL 4.7 MG/DL (2.5-4.9) (2.5-4.9) (2.5-4.9) Magnesium Level 1.9 MG/DL 2.0 MG/DL 2.2 MG/DL (1.5-2.5) (1.5-2.5) (1.5-2.5) . Result Diagram: 05/30/16 0445 05/30/16 0445 Imaging Last Impressions Head CT 05/29/16 0000 Signed Impressions: Service Date/Time: Sunday, May 29, 2016 17:04 - CONCLUSION: No acute disease. Myron Henderson MD Chest X-Ray 05/27/16 0600 Signed Impressions: Service Date/Time: Friday, May 27, 2016 04:50 - CONCLUSION: Hazy density bases being worse on the left representing some consolidation, atelectasis and likely mild effusions. Questionable asymmetric density in the right lung apex. This area could be further evaluated with CT examination. Olegario Heart MD GI Bleed Scan Nuclear Medicine 05/20/16 0000 Signed Impressions: Service Date/Time: Friday, May 20, 2016 14:25 - CONCLUSION: 1. Positive for gastrointestinal bleed in small bowel, probably at the proximal duodenum. Randy Byrne MD Central Venous Line 05/18/16 0000 Signed Impressions: Service Date/Time: Wednesday, May 18, 2016 00:00 - CONCLUSION: Uncomplicated line placement as above. Wilver Mendoza MD Celiac/Hepatic Arteriogram 05/18/16 0000 Signed Impressions: Service Date/Time: Wednesday, May 18, 2016 16:21 - CONCLUSION: 1. Active bleeding identified off the GDA in the expected location of the duodenum. 2. Successful coil and Gelfoam embolization of the right gastric and GDA as detailed above. Wilver Mendoza MD Renal Ultrasound 05/15/16 0000 Signed Impressions: Service Date/Time: Sunday, May 15, 2016 10:50 - CONCLUSION: 1. Kidneys within normal limits. 2. Findings suggesting cirrhosis and portal venous hypertension with varices and recanalized paraumbilical vein. Get Franco MD Lower Extremity Ultrasound 05/15/16 0000 Signed Impressions: Service Date/Time: Sunday, May 15, 2016 08:41 - CONCLUSION: 1. No evidence of lower extremity DVT on the right or left. 2. Elongated fluid in the proximal to mid left calf. The rectal diagnosis is muscle tear versus dissecting Santo cyst. 3. 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 Get Franco MD Knee MRI 05/15/16 0000 Signed Impressions: Service Date/Time: Sunday, May 15, 2016 16:51 - CONCLUSION: 1. Prominent edema in the medial calf with prominent fluid signal between the medial gastrocnemius and soleus muscles. Differential diagnosis is ruptured Santo cyst versus muscle strain. No fluid-filled gap in muscle fibers is seen. There is also adjacent superficial soft tissue edema in this region. 2. Small horizontal tear of the body of the medial meniscus. 3. Small joint effusion. 4. Mild reactive bony edema in the patella. 5. No evidence of osteomyelitis. 6. Moderate focal medial facet patellar chondromalacia. Get Franco MD Knee X-Ray 05/14/16 0000 Signed Impressions: Service Date/Time: Saturday, May 14, 2016 15:44 - CONCLUSION: Negative for fracture or dislocation. Follow up in 7-10 days is suggested if symptoms persist. Alexy Padron MD FACR . Procedures * Attempted arthrocentesis * Right internal jugular central line placement * Orotracheal intubation * EGD 05/16/2016 and 05/18/2016 and 05/22/16 * Gastro-duodenal artery embolization 05/18/16 . Assessment and Plan Disease Oriented Problem List: (1) GI bleed Comment: EGD demonstrated multiple large round and deep duodenal ulcers. Ulcers were noted in the duodenal bulb and in the second part. Patient has undergone gastro-duodenal embolization. He has undergone 3 EGDs since hospital admission. He has had multiple transfusions. Bleeding appears to have stopped. . (2) JOSE (acute kidney injury) Comment: Initial GFR was 11. Kidney function has improved with GFR now up to 27. Nephropathy probably secondary to the patient's underlying diabetes and possibly to underperfusion due to blood loss anemia. . (3) Cirrhosis Comment: Patient noted to have cirrhosis and portal hypertension on imaging. Patient with long history of excessive alcohol consumption. . (4) Acute encephalopathy Comment: Etiology of encephalopathy is uncertain. May be a multifactorial delirium and/or a metabolic encephalopathy. Appears to be improving but apparent confusion persists. . (5) Knee pain, acute Comment: Etiology is still uncertain. No fluid was available to tap. Orthopedics did not think this was an infected joint. MRI of the extremity showed no evidence of osteomyelitis. There was a small horizontal tear of the body of the medial meniscus. There was a small joint effusion. There was moderate focal medial facet patellar chondromalacia. There was also evidence of fluid which possibly represented a ruptured Santo cyst versus a muscle strain. . (6) Diabetes mellitus (7) Anemia Comment: Patient has blood loss anemia. Uncertain what underlying hemoglobin normally is. Patient was found to have multiple to lauded no ulcers.. There may also be an underlying nutritional anemia related to the patient's alcohol use. . (8) Alcohol abuse Comment: Family reports patient normally drinks 6-7 alcoholic drinks per day. Has not had complications such as blackouts or seizures to the knowledge of family. .. (9) Asthma Comment: Patient has had asthma since childhood. . Symptom Scale: (1) Pain 0-10 Scale: Unable to quantify Comment: Had been having 9/10 pain in the left knee. No other known prehospitalization pain syndromes. Other possible sources of pain include prolonged bedbound status; Kaur catheter; edema in the extremities and scrotum ; restraints; and vascular access lines. Patient denies pain today. No recent use of narcotic analgesics required. . (2) Dyspnea 0-10 Scale: 0 Comment: Patient with long history of asthma requiring at least 2 doses of a albuterol inhaler daily at baseline. Patient had required intubation and mechanical ventilation but now extubated and appearing comfortable with nasal cannula oxygen. . (3) Encephalopathy 0-10 Scale: Unable to quantify Comment: Patient is awake and alert but still appears confused. He is able to follow some commands. His baseline status is still a little unclear. . . Pertinent Non-Medical Issues Psychosocial: Patient psychosocial support in this area comes primarily from his brother Randy and Randy's who live here. Patient is unmarried, has no children, but does have some close friends in his home state of [place]. Spiritual: [employer] and spirituality have not played an important role in his life. Legal: Patient has never completed an advanced directive. Under [place] statutes, his brother, Randy, would be his legal proxy for healthcare decision- making. Randy has accepted this role. Ethical issues impacting care: Patient is currently incapacitated to make his own health care decisions. It is unclear if he will regain capacity. His encephalopathy has improved, but he still appears somewhat confused. . Important Contacts * Randy Gonzalez (brother and health care proxy) [phone] . Prognosis Mr Gonzalez is a 66 y/o male diabetic with known hepatic cirrhosis who was critically ill here with respiratory failure requiring intubation/mechanical ventilation; GI bleeding from multiple duodenal ulcers, renal failure, and encephalopathy of uncertain etiology. He had been suffering from a significant cognitive decline even prior to this hospitalization. He has received 16 units of PRBCs since admission. He is not felt to be a surgical candidate. The patient has shown greater improvement than expected. He was successfully extubated and is not showing signs of respiratory distress. GI bleeding has appeared to stop. Renal failure has improved. Though there is some lingering confusion. Patient is now awake and alert. Given patient's prehospitalization trajectory of decline, further ongoing decline is expected. Patient will remain quite vulnerable to infection. It is anticipated he will survive the hospital now. It is uncertain if he will be able to recover to prehospital baseline. Should there be further significant setbacks during this hospitalization, it would be a poor prognostic sign. . . Code Status: No Code (resuscitation status was discussed again with the patient 's health care surrogate. The patient's brother indicated we should not reintubate the patient if he develops respiratory distress again.) Plan == Code Status: NO CODE . Brother does not feel the patient would want reintubation if there was another respiratory decompensation. == Decision making: Patient is incapacitated to make his own health care decisions and it remains uncertain if he will regain capacity. He has no spouse , no children, no surviving parents. He has one surviving brother -- Randy Gonzalez -- who is local and is the appropriate health care proxy. == Goals or medical treatment: Now that the patient is showing signs of improvement, the patient's brother wants to give him every chance to reach his maximal potential. However, brother feels the patient would not want to be resuscitated and specifically would not want to be reintubated. Goals otherwise are aggressive at this time. Brother is open to reviewing goals of medical treatment should there be another significant decline. == Pain: Patient's primary pre-hospital pain syndrome was his knee. Other sources of pain currently could include prolonged bedbound status; edema; restraints; kaur catheter; and vascular access lines. Patient is not requiring analgesics at this time. No further recommendations at this time. == Encephalopathy: The patient probably had a multi-factorial hypoactive delirium / metabolic encephalopathy. He is now awake and alert but does appear confused. He remains unable to speak in an audible voice. Hopefully, mental status will continue to improve as he becomes more active and stabilizes. No further recommnedations at this time. == Dyspnea: Currently controlled postextubation. Patient has long history of asthma requiring approximately 2 puffs on an albuterol inhaler daily at baseline. No further recommendations at this time. == Edema: Edema has improved significantly with diuretic therapy. Urine output has been good. Renal function has improved. No further recommendations at this time. == Palliative care will continue to follow to assist with symptom management and to further clarify goals of medical treatment as the clinical course evolves. . Attestation To help prompt me to consider important information that might be impacting today's encounter and assessment, information from prior notes written by myself or my colleagues may have been "brought forward" into today's note. My signature on this note, however, is an attestation that I personally performed the exam, history, and/or decision-making noted today, and, unless otherwise indicated, the interactions with patient, family, and staff as well as the review of records all occurred today. I also attest that the listed assessment and stated plan reflect my best clinical judgment today based on the combination of historical information, prior notes, and today's exam/ interactions. When time spent is documented, it refers only to time spent today by the signer, or if indicated, combined time spent today by collaborating physician/nurse practitioner. . Rod Erazo MD May 30, 2016 20:41
[2016-05-30] MEDS: DEXTROSE 5% IN WATE 1000ML INJ 1,000 ML IV SCH (20:58)
[2016-05-31] VITALS (18 sets, daily range): BP systolic 148–168; BP diastolic 65–95; PULSE 61–112; RESP 17–21; TEMP 97.8–98.8; O2SAT 92–94
[2016-05-31] MEDS ORDERED: LORazepam 2 MG/ML VIAL IV PUSH PRN (01:15)
[2016-05-31] MEDS: LORazepam 2 MG/ML VIAL IV PUSH PRN (01:34)
[2016-05-31] MEDS: INSULIN NovoLIN REGULAR SUPPLEMENTAL SCALE SQ SCH ×4 (02:45→21:44)
[2016-05-31 04:53] LABS: AUTOMATED NEUTROPHIL # 5.8 TH/MM3 (1.8-7.7); BASOPHIL % 0.1 % (0.0-2.0); EOSINOPHIL # 0.2 TH/MM3 (0-0.4); EOSINOPHIL % 2.3 % (0.0-4.0); HEMATOCRIT 25.3 % (39.0-51.0); HEMO FLAGS DIFF FINAL; LYMPH % 11.8 % (9.0-44.0); LYMPHOCYTE # 0.9 TH/MM3 (1.0-4.8); MEAN CELL VOLUME 89.2 FL (80.0-100.0); MEAN CORPUSCULAR HEMOGLOBIN 29.8 PG (27.0-34.0); MEAN CORPUSCULAR HGB CONC 33.4 % (32.0-36.0); MONO % 9.4 % (0.0-8.0); NEUT % 76.4 % (16.0-70.0); PLATELET COUNT 133 TH/MM3 (150-450); RED BLOOD COUNT 2.83 MIL/MM3 (4.50-5.90); RED CELL DISTRIBUTION WIDTH 20.3 % (11.6-17.2); WHITE BLOOD COUNT 7.6 TH/MM3 (4.0-11.0)
[2016-05-31] MEDS: FREE WATER G-TUBE SCH ×4 (06:00→22:00)
[2016-05-31 06:01] LABS: BICARBONATE 32.1 MEQ/L (21.0-32.0); POTASSIUM 3.7 MEQ/L (3.5-5.1)
[2016-05-31] MEDS: PANTOPRAZOLE SODIUM 40 MG VIAL IV PUSH SCH ×2 (06:05→18:26)
[2016-05-31] MEDS: CHLORHEXIDINE 0.12% (ORAL KIT) 15 ML CUP MT SCH ×2 (08:00→20:00)
[2016-05-31] MEDS: INSULIN DETEMIR 100 UNITS/ML VIAL SQ SCH ×2 (09:00→21:44)
[2016-05-31] MEDS: NYSTATIN 100,000 U/GM PWD 15 GM BTL TOPICAL SCH ×2 (09:00→22:13)
[2016-05-31] MEDS: BUDESONIDE-FORMOTEROL 80/4.5 MCG INHALER INH SCH ×2 (09:00→22:13)
[2016-05-31] MEDS: THIAMINE HCL 100 MG TAB PO SCH (09:00)
[2016-05-31] MEDS: BUMETANIDE INJ 1 MG/4 ML VIAL IV PUSH SCH (09:24)
[2016-05-31] MEDS: LACTULOSE SYRUP 20 GM/30 ML CUP PO SCH ×2 (09:24→21:44)
[2016-05-31] MEDS: RESP: ALBUTEROL 2.5 MG/IPRATROPIUM 0.5 MG NEB (SCH) NEB ×3 (09:24→19:06)
[2016-05-31] MEDS: SODIUM CHLORIDE 0.9% FLUSH 10 ML FLUSH IV FLUSH SCH ×2 (09:25→22:13)
[2016-05-31] MEDS: SODIUM CHLORIDE 0.9% FLUSH 10 ML FLUSH IVF SCH (09:26)
--- NOTE | 2016-05-31 11:28 | HHI.FPPN ---
Subjective Remarks Patient seen and examined this morning. Medical team. Patient tachycardic and hypertensive overnight with one episode of agitation that resolved with Ativan administration. Soft restraints were continued overnight. Patient is able to whisper and follow commands. He is able to tell the team that he has had no chest pain, SOB, NVD, or pain. (Oswaldo Real MD R1) Objective Vitals Vital Signs Date Time Temp Pulse Resp B/P Pulse Ox O2 Delivery O2 Flow Rate FiO2 05/31/16 08:49 94 Nasal Cannula 3.00 05/31/16 08:00 98.2 80 21 168/72 93 05/31/16 08:00 111 05/31/16 06:00 80 05/31/16 04:00 103 05/31/16 04:00 98.3 79 21 162/95 93 05/31/16 02:00 79 05/31/16 00:00 98.2 79 17 148/67 93 05/31/16 00:00 75 05/30/16 22:00 76 05/30/16 20:00 111 05/30/16 20:00 98.3 111 25 117/75 94 05/30/16 19:49 99 Nasal Cannula 3.00 05/30/16 18:00 110 05/30/16 16:00 116 05/30/16 16:00 97.7 116 16 131/65 82 05/30/16 14:00 114 05/30/16 12:00 123 05/30/16 12:00 98.1 123 20 154/69 98 I/O 05/30/16 05/30/16 05/30/16 05/31/16 05/31/16 05/31/16 07:00 15:00 23:00 07:00 15:00 23:00 Intake Total 100 ml 1145 ml 522 ml 781 ml Output Total 400 ml 1400 ml 800 ml 550 ml Balance -300 ml -255 ml -278 ml 231 ml Intake Oral 100 ml 500 ml 480 ml 480 ml IV Total 645 ml 42 ml 301 ml Output Urine Total 400 ml 1400 ml 800 ml 550 ml # Bowel Movements 1 0 0 0 (Oswaldo Real MD R1) Result Diagram: 05/31/16 0348 05/31/16 0348 Objective Remarks GEN: Patient is a 66-year-old male lying in bed in [facility]. Patient able to whisper individual words only and follow commands. CV: Regular rate and rhythm with 3/6 systolic murmur systolic and soft radiation to carotids. LUNGS: Coarse breath sounds BL anteriorly without CRW. . ABD: Soft, nondistended with positive bowel sounds. No masses appreciated. EXT: Trace edema of ankle and trace edema of hands, significantly improved overall. NEURO/PSYCH: Awake and alert, able to follow verbal commands. (Oswaldo Real MD R1) Date of Insertion: May 18, 2016 Date of Removal: May 29, 2016 Line: Central Venous Catheter Side: Right Location: Internal, Jugular (Oswaldo Real MD R1) A/P Assessment and Plan 65 y/o male with history of DM and osteomyelitis presented with left leg pain as well as GI bleed, diabetes mellitus. Admitted for anemia, JOSE and left knee pain. Currently in the ICU and extubated. sdw: Dr. Farley, Dr. Jose Flood, Dr. Juarez Discharge Planning Time table unclear, pending medical improvement. Patient to be transferred to Medical/Surgical floor today as he is stable. (Oswaldo Real MD R1) Attending Attestation Patient seen and examined. Case reviewed and discussed with the resident team. Agree with plan of care as discussed with me and documented in the resident note. (Chapis Farley MD) Problem List: (1) Acute encephalopathy Status: Acute Plan: Improved, Pt currently awake and alert Unclear etiology. DDx: delirium, alcohol withdrawal, metabolic encephalopathy, uremia Ammonia level elevated to 57 on 05/24, will give low dose lactulose and can follow Patient agitated overnight on 05/30, resolved with Ativan administration -Critical care consulted, have currently signed off: appreciate recs -Pt intubated 05/17-05/28 due to lethargy and airway protection -Pt underwent almost daily CPAP trials, however was initially not extubated due to decreased arousability. Abx: Rocephin 1 g IV qd (05/19 - 05/28) Imaging: Head CT 05/29: No Acute Disease Medications: -Ativan 0.5mg IV Q2H (2) JOSE (acute kidney injury) Status: Acute Plan: Ddx includes pre-renal (dehydration/hypovolemia) vs renal (ATN). Concern for underlying CKD. Associated with decreased eating and drinking prior to presentation. Baseline Cr is 0.83 from 2 years ago, admission Cr is 5.38. Pre- sedation confusion likely due to uremia. -Renal function stable today. JOSE likely due to hypotension vs IV contrast for arterial embolization for evaluation fo GI bleed. -Strict I/Os -Monitor patient's hypernatremia, currently on D5W at 40 ml/hr Nephrology consulted: appreciate recommendations * Bumex 1mg IV Daily * Continue start D5W at 40ml/hr due to hypernatremia * Monitor fluid status and electrolytes closely * Renal function stable * Avoid nephrotoxic agents Imaging: * Renal US: Kidneys unremarkable. Finding suggesting cirrhosis and portal venous HTN with varices and recanalized paraumbilical vein. (3) Anemia Status: Acute Plan: No history of ulcers or blood thinners. Has some recent NSAID use and history of alcohol abuse. DDx: gastric/duodenal ulcer, esophageal varices, diverticulosis, colorectal cancer, polyps, IBD, hemorrhoids.H/H on admission was 6.8/20.6. Admission BUN/Cr ratio 19, suggestive of upper GI bleed and /or dehydration. S/p transfusion on 05/19 due to hemoglobin remaining low at 7.4 Echo: EF 45-50%, mild MR, mild TR -Hemoccult in ED positive. -H&H monitored; Transfuse as needed GI consulted: appreciate recommendations * s/p EGD 05/16 - Large clots in fundus, non-bleeding ulcer in duodenal bulb. Normal esophagus * Repeat EGD 05/18 - duodenal ulcers with visible vessels, cauterized -s/p arteriogram with coli and embolization of right gastric and GDA (05/18 ) * Repeat EGD 05/22 - large duodenal ulcers with no active bleeding * Liver serologies negative * Signed off Gen surgery consulted-appreciate recs: Do not recommend surgery, operative mortality approaching 100% Medications: * Protonix 40mg IV BID, consider transitioning to PO * Hold all anticoagulation (Coumadin, Plavix, Aspirin) (4) Atrial fibrillation Status: Acute Plan: Pt developed Afib with RVR. No history of Afib per patient. Given lopressor, cardizem. S/p cardizem infusion 05/17. Holding chemo ppx due to GI bleed -Amiodarone 400mg po Q12hrs -Continue to monitor tele, heart rate (5) Diabetes mellitus Status: Acute Plan: Hold home metformin and glipizide. A1c of 6.1, could be falsely low due to blood loss anemia. Bedside glucose in the 100s-200s -Low-dose sliding scale -Levemir decreased to 5 units BID -Continue to monitor, adjust as needed (6) Cirrhosis Status: Acute Plan: Significant alcohol history. Denies alcohol withdrawals. No seizures in past. Cirrhosis seen on Renal US with evident of portal venous HTN with varices. Hepatitis panel negative. -See Ammonia above -Oral Rally pack (7) Asthma Status: Chronic Plan: -Albuterol PRN -Symbicort BID (8) Knee pain, acute Status: Acute Plan: Likely due to muscle tear and/or Santo cyst rupture contributing to pain and associated edema. -Ortho consulted: Appreciate recommendations. Does not look like septic joint because there is no significant effusion. -S/p antibiotics (Vanc 05/14-; Linezolid 05/15-05/16; Cefepime 05/14-05/16) ( Rocephin 05/19-05/28) -Pain control with Tylenol PO -Would benefit from PT once acute pain and mental status improves. Imaging: * MRI: Prominent edema in the medial calf with prominent fluid signal between the medial gastrocnemius and soleus muscles. DDX is ruptured Santo cyst versus muscle strain. Small joint effusion. No evidence of osteomyelitis. * LE ultrasound: No evidence of DVT. Elongated fluid in the proximal to mid left calf. DDX is muscle tear versus dissecting Santo cyst. 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 * Left knee XR: Negative for fracture or dislocation (9) FEN Status: Acute Plan: Fluids: D5W 40mls/hr, monitor fluid status closely Electrolytes: Hypokalemia resolved. Sodium elevated to 156, see fluids above. Nutrition: Diabetic diet DVT ppx: SCDs/TEDs, chemoprophylaxis contraindicated due to GI bleed GI ppx: Protonix (Oswaldo Real MD R1) Problem Qualifiers (1) Anemia: Qualified Code: D64.9 - Anemia, unspecified type (2) Atrial fibrillation: Qualified Code: I48.0 - Paroxysmal atrial fibrillation (3) Diabetes mellitus: Qualified Code: E11.8 - Type 2 diabetes mellitus with complication, without long-term current use of insulin (4) Cirrhosis: Qualified Code: K74.60 - Cirrhosis of liver without ascites, unspecified hepatic cirrhosis type (5) Asthma: Qualified Code: J45.909 - Uncomplicated asthma, unspecified asthma severity (6) Knee pain, acute: Qualified Code: M25.562 - Acute pain of left knee Oswaldo Real MD R1 May 31, 2016 11:28 Chapis Farley MD Jun 02, 2016 13:42
[2016-05-31] MEDS: AMIODARONE 200 MG TAB PO SCH (12:00)
[2016-05-31] MEDS: DEXTROSE 5% IN WATE 1000ML INJ 1,000 ML IV SCH (22:15)
[2016-06-01] VITALS (28 sets, daily range): BP systolic 126–158; BP diastolic 62–93; PULSE 73–128; RESP 18–20; TEMP 97.8–98.9; O2SAT 92–96
[2016-06-01] MEDS: AMIODARONE 200 MG TAB PO SCH ×3 (01:12→23:00)
[2016-06-01] MEDS: LORazepam 2 MG/ML VIAL IV PUSH PRN (01:12)
[2016-06-01] MEDS: METOPROLOL TARTRATE 5 MG/5 ML VIAL IV PUSH PRN ×2 (02:44→05:26)
[2016-06-01] MEDS: INSULIN NovoLIN REGULAR SUPPLEMENTAL SCALE SQ SCH ×4 (02:45→20:45)
[2016-06-01] MEDS: PANTOPRAZOLE SODIUM 40 MG VIAL IV PUSH SCH ×2 (05:25→18:09)
[2016-06-01] MEDS: FREE WATER G-TUBE SCH ×3 (05:26→22:00)
[2016-06-01 06:27] LABS: HEMATOCRIT 28.6 % (39.0-51.0); MEAN CORPUSCULAR HGB CONC 33.4 % (32.0-36.0); PLATELET COUNT 157 TH/MM3 (150-450); RED BLOOD COUNT 3.18 MIL/MM3 (4.50-5.90); RED CELL DISTRIBUTION WIDTH 19.7 % (11.6-17.2); REVIEW FLAG FINAL; WHITE BLOOD COUNT 9.4 TH/MM3 (4.0-11.0)
[2016-06-01 06:53] LABS: BICARBONATE 33.3 MEQ/L (21.0-32.0); POTASSIUM 3.7 MEQ/L (3.5-5.1)
[2016-06-01] MEDS: CHLORHEXIDINE 0.12% (ORAL KIT) 15 ML CUP MT SCH ×2 (08:00→20:00)
[2016-06-01] MEDS: RESP: ALBUTEROL 2.5 MG/IPRATROPIUM 0.5 MG NEB (SCH) NEB ×3 (08:00→21:08)
[2016-06-01] MEDS: INSULIN DETEMIR 100 UNITS/ML VIAL SQ SCH ×2 (08:57→22:45)
[2016-06-01] MEDS: THIAMINE HCL 100 MG TAB PO SCH (08:57)
[2016-06-01] MEDS: BUMETANIDE INJ 1 MG/4 ML VIAL IV PUSH SCH (08:58)
[2016-06-01] MEDS: SODIUM CHLORIDE 0.9% FLUSH 10 ML FLUSH IV FLUSH SCH ×2 (08:58→21:00)
[2016-06-01] MEDS: LACTULOSE SYRUP 20 GM/30 ML CUP PO SCH ×2 (08:58→22:52)
[2016-06-01] MEDS: BUDESONIDE-FORMOTEROL 80/4.5 MCG INHALER INH SCH ×2 (08:59→22:45)
[2016-06-01] MEDS: NYSTATIN 100,000 U/GM PWD 15 GM BTL TOPICAL SCH ×2 (08:59→22:46)
[2016-06-01] MEDS: SODIUM CHLORIDE 0.9% FLUSH 10 ML FLUSH IVF SCH (08:59)
--- NOTE | 2016-06-01 09:40 | EKG ---
Date Performed: 06/01/2016 Time Performed: 02:28:22 PTAGE: 66 years EKG: Atrial fibrillation with rapid ventricular response Leftward axis Septal and lateral ST-T c hanges are nonspecific Abnormal ECG PREVIOUS TRACING : 05/14/2016 15.11 Compared to previous tracing, atrial fibrillation has repla vj Sinus rhythm , nonspecific ST/T changes are now present. DOCTOR: Ghassan Cardona Interpretating Date/Time 06/01/2016 09:38:58
--- NOTE | 2016-06-01 09:46 | HHI.FPPN ---
Subjective Remarks Pt seen and examined this morning. Overnight he had a elevated heart rate to the 120s, HR this morning in the 70s. He is currently tolerating his diet. He is able to follow commands, not talkative this morning. (Hu Flood MD R2 ) Objective Vitals Vital Signs Date Time Temp Pulse Resp B/P Pulse Ox O2 Delivery O2 Flow Rate FiO2 06/01/16 08:55 92 Nasal Cannula 2.00 06/01/16 08:01 77 06/01/16 07:35 98.9 74 18 155/74 96 06/01/16 07:35 110 06/01/16 06:00 108 06/01/16 05:30 98.2 122 20 153/93 95 06/01/16 05:00 118 06/01/16 04:00 119 06/01/16 03:00 106 06/01/16 02:00 128 06/01/16 01:00 82 06/01/16 00:00 98.3 78 20 158/70 95 06/01/16 00:00 76 05/31/16 23:00 84 05/31/16 22:00 88 05/31/16 21:00 88 05/31/16 20:00 82 05/31/16 20:00 98.8 86 20 151/66 93 05/31/16 19:06 93 Nasal Cannula 3.00 05/31/16 19:00 78 05/31/16 18:28 80 05/31/16 16:31 85 05/31/16 15:54 83 05/31/16 15:54 97.8 87 18 149/65 92 05/31/16 14:20 112 05/31/16 13:24 61 05/31/16 11:39 87 05/31/16 11:39 97.8 87 18 160/76 93 I/O 05/31/16 05/31/16 05/31/16 06/01/16 06/01/16 06/01/16 07:00 15:00 23:00 07:00 15:00 23:00 Intake Total 781 ml 480 ml 839 ml Output Total 550 ml 650 ml 980 ml Balance 231 ml -170 ml -141 ml Intake Oral 480 ml 480 ml 150 ml IV Total 301 ml 689 ml Output Urine Total 550 ml 650 ml 980 ml # Bowel Movements 0 0 (Hu Flood MD R2) Result Diagram: 4/14/17 0448 06/01/16 0448 Objective Remarks GEN: Patient is a 66-year-old male lying in bed in [facility]. CV: Regular rate and rhythm with 3/6 systolic murmur systolic and soft radiation to carotids. LUNGS: Coarse breath sounds BL anteriorly without CRW. ABD: Soft, nondistended with positive bowel sounds. No masses appreciated. EXT: Trace edema of ankle and trace edema of hands, significantly improved overall. NEURO/PSYCH: Awake and alert, able to follow verbal commands. (Hu Flood MD R2) Date of Insertion: May 18, 2016 Date of Removal: May 29, 2016 Line: Central Venous Catheter Side: Right Location: Internal, Jugular (Hu Flood MD R2) A/P Assessment and Plan 65 y/o male with history of DM and osteomyelitis presented with left leg pain as well as GI bleed, diabetes mellitus. Admitted for anemia, JOSE and left knee pain. dw: Dr. Farley Discharge Planning Anticipate discharge to SNF vs LTAC once medically stable. (Hu Flood MD R2) Attending Attestation Patient seen and examined. Case reviewed and discussed with the resident team. Agree with plan of care as discussed with me and documented in the resident note. (Chapis Farley MD) Problem List: (1) Acute encephalopathy Status: Acute Plan: Improved, Pt currently awake and alert. Pt with Baseline dementia and speaks with a soft whisper. Unclear etiology. DDx: delirium, alcohol withdrawal, metabolic encephalopathy, uremia Ammonia level elevated to 57 on 05/24, will give low dose lactulose and can follow Patient agitated on 05/30, resolved with Ativan administration. Consider Haldol if there is further agitation. -Critical care consulted, have currently signed off: appreciate recs -Pt intubated 05/17-05/28 due to lethargy and airway protection Abx: Rocephin 1 g IV qd (05/19 - 05/28) Imaging: Head CT 05/29: No Acute Disease Medications: -Ativan 0.5mg IV Q2H (2) JOSE (acute kidney injury) Status: Acute Plan: Ddx includes pre-renal (dehydration/hypovolemia) vs renal (ATN). Concern for underlying CKD. Associated with decreased eating and drinking prior to presentation. Baseline Cr is 0.83 from 2 years ago, admission Cr is 5.38. Pre- sedation confusion likely due to uremia. -Renal function stable today. JOSE likely due to hypotension vs IV contrast for arterial embolization for evaluation fo GI bleed. -Strict I/Os -Monitor patient's hypernatremia, currently on D5W at 40 ml/hr Nephrology consulted: appreciate recommendations * Bumex 1mg IV Daily * Continue D5W at 40ml/hr due to hypernatremia * Monitor fluid status and electrolytes closely * Renal function stable * Avoid nephrotoxic agents Imaging: * Renal US: Kidneys unremarkable. Finding suggesting cirrhosis and portal venous HTN with varices and recanalized paraumbilical vein. (3) Anemia Status: Acute Plan: No history of ulcers or blood thinners. Has some recent NSAID use and history of alcohol abuse. DDx: gastric/duodenal ulcer, esophageal varices, diverticulosis, colorectal cancer, polyps, IBD, hemorrhoids.H/H on admission was 6.8/20.6. Admission BUN/Cr ratio 19, suggestive of upper GI bleed and /or dehydration. S/p transfusion on 05/19 due to hemoglobin remaining low at 7.4 Echo: EF 45-50%, mild MR, mild TR -Hemoccult in ED positive. -H&H monitored; Transfuse as needed GI consulted: appreciate recommendations * s/p EGD 05/16 - Large clots in fundus, non-bleeding ulcer in duodenal bulb. Normal esophagus * Repeat EGD 05/18 - duodenal ulcers with visible vessels, cauterized -s/p arteriogram with coli and embolization of right gastric and GDA (05/18 ) * Repeat EGD 05/22 - large duodenal ulcers with no active bleeding * Liver serologies negative * Signed off Gen surgery consulted-appreciate recs: Do not recommend surgery, operative mortality approaching 100% Medications: * Protonix 40mg IV BID, consider transitioning to PO * Hold all anticoagulation (Coumadin, Plavix, Aspirin) (4) Atrial fibrillation Status: Acute Plan: Pt developed Afib with RVR. No history of Afib per patient. Given lopressor, cardizem. S/p cardizem infusion 05/17. Holding chemo ppx due to GI bleed -Amiodarone 400mg po Q12hrs -Continue to monitor tele, heart rate (5) Diabetes mellitus Status: Acute Plan: Hold home metformin and glipizide. A1c of 6.1, could be falsely low due to blood loss anemia. -Low-dose sliding scale -Levemir decreased to 5 units BID -Continue to monitor, adjust as needed (6) Cirrhosis Status: Acute Plan: Significant alcohol history. Denies alcohol withdrawals. No seizures in past. Cirrhosis seen on Renal US with evident of portal venous HTN with varices. Hepatitis panel negative. -See Ammonia above -Oral Rally pack (7) Asthma Status: Chronic Plan: -Albuterol PRN -Symbicort BID (8) Knee pain, acute Status: Acute Plan: Likely due to muscle tear and/or Santo cyst rupture contributing to pain and associated edema. -Ortho consulted: Appreciate recommendations. Does not look like septic joint because there is no significant effusion. -S/p antibiotics (Vanc 05/14-; Linezolid 05/15-05/16; Cefepime 05/14-05/16) ( Rocephin 05/19-05/28) -Pain control with Tylenol PO -Would benefit from PT once acute pain and mental status improves. Imaging: * MRI: Prominent edema in the medial calf with prominent fluid signal between the medial gastrocnemius and soleus muscles. DDX is ruptured Santo cyst versus muscle strain. Small joint effusion. No evidence of osteomyelitis. * LE ultrasound: No evidence of DVT. Elongated fluid in the proximal to mid left calf. DDX is muscle tear versus dissecting Santo cyst. 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 * Left knee XR: Negative for fracture or dislocation (9) FEN Status: Acute Plan: Fluids: D5W 40mls/hr, monitor fluid status closely Electrolytes: Hypokalemia resolved. Sodium elevated to 156, see fluids above. Nutrition: Diabetic diet DVT ppx: SCDs/TEDs, chemoprophylaxis contraindicated due to GI bleed GI ppx: Protonix (Hu Flood MD R2) Problem Qualifiers (1) Anemia: Qualified Code: D64.9 - Anemia, unspecified type (2) Atrial fibrillation: Qualified Code: I48.0 - Paroxysmal atrial fibrillation (3) Diabetes mellitus: Qualified Code: E11.8 - Type 2 diabetes mellitus with complication, without long-term current use of insulin (4) Cirrhosis: Qualified Code: K74.60 - Cirrhosis of liver without ascites, unspecified hepatic cirrhosis type (5) Asthma: Qualified Code: J45.909 - Uncomplicated asthma, unspecified asthma severity (6) Knee pain, acute: Qualified Code: M25.562 - Acute pain of left knee Hu Flood MD R2 Jun 01, 2016 09:46 Chapis Farley MD Jun 02, 2016 13:45
--- NOTE | 2016-06-01 19:35 | HHI.HCPN ---
Reason for visit a. To assist with evaluation and management of symptoms including: pain; encephalopathy; dyspnea b. To assist medical decision maker(s) with: better understanding of current medical conditions; weighing benefits/burdens of medical treatment options; making medical treatment decisions. . Subjective/Interval History No significant events overnight. Patient has been transferred to the step-down unit. Patient denies pain/sob. He has been restless. He is confused. He had no idea where he was or who the president is. He did know the year was 2016. Voice is more audible today. Speech therapy notes moderate pharyngeal dysphagia -- recommending mechanical soft diet and honey consistency thickened liquids. Afebrile. VS stable. Pulse ox 92 - 96 on nasal cannual at 2-3L/m CBC stable. Renal function stable. . Family/friend interactions No family at bedside. . Advance Directives Living Will: Never completed Health Care Surrogate: Never completed Durable Power of Insurance And Benefits Clerk: Never completed Advance Directive Specifics Date completed: The patient has never completed a living will or designation of health care surrogate. . Health Care Surrogate(s): The patient has never completed a living will or designation of health care surrogate. . Documented care wishes: There is no written documentation of health care goals or preferences. . Objective Vital Signs Date Time Temp Pulse Resp B/P Pulse Ox O2 Delivery O2 Flow Rate FiO2 06/01/16 18:02 79 06/01/16 17:00 77 06/01/16 16:00 84 06/01/16 15:00 99 06/01/16 15:00 98.5 82 18 156/68 93 06/01/16 14:00 80 06/01/16 13:00 83 06/01/16 12:00 73 06/01/16 11:26 98.1 77 18 126/64 92 06/01/16 11:00 73 06/01/16 10:00 80 06/01/16 09:00 79 06/01/16 08:55 92 Nasal Cannula 2.00 06/01/16 08:01 77 06/01/16 07:35 98.9 74 18 155/74 96 06/01/16 07:35 110 06/01/16 06:00 108 06/01/16 05:30 98.2 122 20 153/93 95 06/01/16 05:00 118 06/01/16 04:00 119 06/01/16 03:00 106 06/01/16 02:00 128 06/01/16 01:00 82 06/01/16 00:00 98.3 78 20 158/70 95 06/01/16 00:00 76 05/31/16 23:00 84 05/31/16 22:00 88 05/31/16 21:00 88 05/31/16 20:00 82 05/31/16 20:00 98.8 86 20 151/66 93 Intake & Output 06/01/16 06/01/16 07:00 19:00 Intake Total 839 ml 1067 ml Output Total 980 ml 1300 ml Balance -141 ml -233 ml Intake Oral 150 ml 630 ml IV Total 689 ml 437 ml Output Urine Total 980 ml 1300 ml # Bowel Movements 0 2 . Physical Exam CONSTITUTIONAL/GENERAL: This is an adequately nourished patient, awake, alert, in intermediate unit. Voice weak but audible.. Answers basic questions and follows basic commands but confused and disoriented. TUBES/LINES/DRAINS: condom catheter; peripheral IV SKIN: No jaundice, rashes, or lesions. . No wounds seen anteriorly. Skin temperature appropriate. Not diaphoretic. EYES: Pupils equal and round. Extraocular movements intact. No scleral icterus. No injection or drainage. Fundi not examined. ENT: Appears to hear me fine. Nose without bleeding or purulent drainage. Lips dry. Throat without visible erythema. there is dry exudate. NECK: Trachea midline. Supple. CARDIOVASCULAR: Regular rate and rhythm without murmurs, gallops, or rubs. No JVD. RESPIRATORY/CHEST: Symmetric, unlabored respirations. Clear to auscultation. Breath sounds equal bilaterally. No wheezes, rales, or rhonchi. GASTROINTESTINAL: Abdomen soft, non-tender, nondistended. No hepato-splenomegaly , or palpable masses. No guarding. Bowel sounds present. GENITOURINARY: Without palpable bladder distension.Condom catheter in place. MUSCULOSKELETAL: Extremities without clubbing, cyanosis. No edema. . No calf tenderness. No mottling or clubbing. LYMPHATICS: Not examined NEUROLOGICAL: Awake, alert, follows some complex commands. Confused. Moves all extremities. PSYCHIATRIC: No obvious depression or anxiety. No obvious hallucinations or other psychotic thought process. . Diagnostic Tests Laboratory Laboratory Tests Test 05/30/16 05/31/16 06/01/16 04:45 03:48 04:48 White Blood Count 5.1 TH/MM3 7.6 TH/MM3 9.4 TH/MM3 (4.0-11.0) (4.0-11.0) (4.0-11.0) Red Blood Count 2.77 MIL/MM3 2.83 MIL/MM3 3.18 MIL/MM3 (4.50-5.90) (4.50-5.90) (4.50-5.90) Hemoglobin 8.0 GM/DL 8.4 GM/DL 9.6 GM/DL (13.0-17.0) (13.0-17.0) (13.0-17.0) Hematocrit 24.8 % 25.3 % 28.6 % (39.0-51.0) (39.0-51.0) (39.0-51.0) Mean Corpuscular Volume 89.5 FL 89.2 FL 90.0 FL (80.0-100.0) (80.0-100.0) (80.0-100.0) Mean Corpuscular Hemoglobin 29.0 PG 29.8 PG 30.0 PG (27.0-34.0) (27.0-34.0) (27.0-34.0) Mean Corpuscular Hemoglobin 32.4 % 33.4 % 33.4 % Concent (32.0-36.0) (32.0-36.0) (32.0-36.0) Red Cell Distribution Width 19.3 % 20.3 % 19.7 % (11.6-17.2) (11.6-17.2) (11.6-17.2) Platelet Count 103 TH/MM3 133 TH/MM3 157 TH/MM3 (150-450) (150-450) (150-450) Mean Platelet Volume 7.7 FL 7.6 FL 7.6 FL (7.0-11.0) (7.0-11.0) (7.0-11.0) Sodium Level 155 MEQ/L 156 MEQ/L 155 MEQ/L (136-145) (136-145) (136-145) Potassium Level 3.4 MEQ/L 3.7 MEQ/L 3.7 MEQ/L (3.5-5.1) (3.5-5.1) (3.5-5.1) Chloride Level 113 MEQ/L 117 MEQ/L 116 MEQ/L (98-107) (98-107) (98-107) Carbon Dioxide Level 34.1 MEQ/L 32.1 MEQ/L 33.3 MEQ/L (21.0-32.0) (21.0-32.0) (21.0-32.0) Anion Gap 8 MEQ/L (5-15) 7 MEQ/L (5-15) 6 MEQ/L (5-15) Blood Urea Nitrogen 106 MG/DL 91 MG/DL (7-18) 69 MG/DL (7-18) (7-18) Creatinine 2.43 MG/DL 2.15 MG/DL 2.13 MG/DL (0.60-1.30) (0.60-1.30) (0.60-1.30) Estimat Glomerular Filtration 27 ML/MIN (>89) 31 ML/MIN (>89) 31 ML/MIN (>89) Rate Random Glucose 171 MG/DL 232 MG/DL 112 MG/DL (74-106) (74-106) (74-106) Calcium Level 8.0 MG/DL 8.0 MG/DL 8.4 MG/DL (8.5-10.1) (8.5-10.1) (8.5-10.1) Phosphorus Level 4.7 MG/DL (2.5-4.9) Magnesium Level 2.2 MG/DL (1.5-2.5) Neutrophils (%) (Auto) 76.4 % (16.0-70.0) Lymphocytes (%) (Auto) 11.8 % (9.0-44.0) Monocytes (%) (Auto) 9.4 % (0.0-8.0) Eosinophils (%) (Auto) 2.3 % (0.0-4.0) Basophils (%) (Auto) 0.1 % (0.0-2.0) Neutrophils # (Auto) 5.8 TH/MM3 (1.8-7.7) Lymphocytes # (Auto) 0.9 TH/MM3 (1.0-4.8) Monocytes # (Auto) 0.7 TH/MM3 (0-0.9) Eosinophils # (Auto) 0.2 TH/MM3 (0-0.4) Basophils # (Auto) 0.0 TH/MM3 (0-0.2) CBC Comment DIFF FINAL Differential Comment Result Diagram: 06/01/16 0448 06/01/16 0448 Imaging Last Impressions Head CT 05/29/16 0000 Signed Impressions: Service Date/Time: Sunday, May 29, 2016 17:04 - CONCLUSION: No acute disease. Myron Henderson MD Chest X-Ray 05/27/16 0600 Signed Impressions: Service Date/Time: Friday, May 27, 2016 04:50 - CONCLUSION: Hazy density bases being worse on the left representing some consolidation, atelectasis and likely mild effusions. Questionable asymmetric density in the right lung apex. This area could be further evaluated with CT examination. Olegario Heart MD GI Bleed Scan Nuclear Medicine 05/20/16 0000 Signed Impressions: Service Date/Time: Friday, May 20, 2016 14:25 - CONCLUSION: 1. Positive for gastrointestinal bleed in small bowel, probably at the proximal duodenum. aRndy Byrne MD Central Venous Line 05/18/16 0000 Signed Impressions: Service Date/Time: Wednesday, May 18, 2016 00:00 - CONCLUSION: Uncomplicated line placement as above. Wilver Mendoza MD Celiac/Hepatic Arteriogram 05/18/16 0000 Signed Impressions: Service Date/Time: Wednesday, May 18, 2016 16:21 - CONCLUSION: 1. Active bleeding identified off the GDA in the expected location of the duodenum. 2. Successful coil and Gelfoam embolization of the right gastric and GDA as detailed above. Wilver Mendoza MD Renal Ultrasound 05/15/16 0000 Signed Impressions: Service Date/Time: Sunday, May 15, 2016 10:50 - CONCLUSION: 1. Kidneys within normal limits. 2. Findings suggesting cirrhosis and portal venous hypertension with varices and recanalized paraumbilical vein. Get Franco MD Lower Extremity Ultrasound 05/15/16 0000 Signed Impressions: Service Date/Time: Sunday, May 15, 2016 08:41 - CONCLUSION: 1. No evidence of lower extremity DVT on the right or left. 2. Elongated fluid in the proximal to mid left calf. The rectal diagnosis is muscle tear versus dissecting Santo cyst. 3. 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 Get Franco MD Knee MRI 05/15/16 0000 Signed Impressions: Service Date/Time: Sunday, May 15, 2016 16:51 - CONCLUSION: 1. Prominent edema in the medial calf with prominent fluid signal between the medial gastrocnemius and soleus muscles. Differential diagnosis is ruptured Santo cyst versus muscle strain. No fluid-filled gap in muscle fibers is seen. There is also adjacent superficial soft tissue edema in this region. 2. Small horizontal tear of the body of the medial meniscus. 3. Small joint effusion. 4. Mild reactive bony edema in the patella. 5. No evidence of osteomyelitis. 6. Moderate focal medial facet patellar chondromalacia. Get Franco MD Knee X-Ray 05/14/16 0000 Signed Impressions: Service Date/Time: Saturday, May 14, 2016 15:44 - CONCLUSION: Negative for fracture or dislocation. Follow up in 7-10 days is suggested if symptoms persist. Alexy Padron MD FACR . Procedures * Attempted arthrocentesis * Right internal jugular central line placement * Orotracheal intubation * EGD 05/16/2016 and 05/18/2016 and 05/22/16 * Gastro-duodenal artery embolization 05/18/16 . Assessment and Plan Disease Oriented Problem List: (1) GI bleed Comment: EGD demonstrated multiple large round and deep duodenal ulcers. Ulcers were noted in the duodenal bulb and in the second part. Patient has undergone gastro-duodenal embolization. He has undergone 3 EGDs since hospital admission. He has had multiple transfusions. Bleeding appears to have stopped. . (2) JOSE (acute kidney injury) Comment: Initial GFR was 11. Kidney function has improved substantially. Nephropathy probably secondary to the patient's underlying diabetes and possibly to underperfusion due to blood loss anemia. . (3) Cirrhosis Comment: Patient noted to have cirrhosis and portal hypertension on imaging. Patient with long history of excessive alcohol consumption. . (4) Acute encephalopathy Comment: Etiology of encephalopathy is uncertain. May be a multifactorial delirium and/or a metabolic encephalopathy. Appears to be improving but apparent confusion persists. Patient was having evidence of dementia prior to this hospitalization. May also have some underlying alcoholic related encephalopathy. . (5) Knee pain, acute Comment: Etiology is still uncertain. No fluid was available to tap. Orthopedics did not think this was an infected joint. MRI of the extremity showed no evidence of osteomyelitis. There was a small horizontal tear of the body of the medial meniscus. There was a small joint effusion. There was moderate focal medial facet patellar chondromalacia. There was also evidence of fluid which possibly represented a ruptured Santo cyst versus a muscle strain. . (6) Diabetes mellitus (7) Anemia Comment: Patient has blood loss anemia. Uncertain what underlying hemoglobin normally is. Patient was found to have multiple to lauded no ulcers.. There may also be an underlying nutritional anemia related to the patient's alcohol use. . (8) Alcohol abuse Comment: Family reports patient normally drinks 6-7 alcoholic drinks per day. Has not had complications such as blackouts or seizures to the knowledge of family. .. (9) Asthma Comment: Patient has had asthma since childhood. . Symptom Scale: (1) Pain 0-10 Scale: Unable to quantify Comment: Had been having 9/10 pain in the left knee. No other known prehospitalization pain syndromes. Other possible sources of pain include prolonged bedbound status; Donaldson catheter; edema in the extremities and scrotum ; restraints; and vascular access lines. Patient denies pain today. No recent use of narcotic analgesics required. . (2) Dyspnea 0-10 Scale: 0 Comment: Patient with long history of asthma requiring at least 2 doses of a albuterol inhaler daily at baseline. Patient had required intubation and mechanical ventilation but now extubated and appearing comfortable with nasal cannula oxygen. . (3) Encephalopathy 0-10 Scale: Unable to quantify Comment: Patient is awake and alert but still appears confused. He is able to follow some commands. His baseline status is still a little unclear. . . Pertinent Non-Medical Issues Psychosocial: Patient psychosocial support in this area comes primarily from his brother Randy and Randy's who live here. Patient is unmarried, has no children, but does have some close friends in his home state of [place]. Spiritual: Judaism and spirituality have not played an important role in his life. Legal: Patient has never completed an advanced directive. Under [place] statutes, his brother, Randy, would be his legal proxy for healthcare decision- making. Randy has accepted this role. Ethical issues impacting care: Patient is currently incapacitated to make his own health care decisions. It is unclear if he will regain capacity. His encephalopathy has improved, but he still appears somewhat confused. . Important Contacts * Randy Gonzalez (brother and health care proxy) [phone] . Prognosis Mr Gonzalez is a 66 y/o male diabetic with known hepatic cirrhosis who was critically ill here with respiratory failure requiring intubation/mechanical ventilation; GI bleeding from multiple duodenal ulcers, renal failure, and encephalopathy of uncertain etiology. He had been suffering from a significant cognitive decline even prior to this hospitalization. He has received 16 units of PRBCs since admission. He is not felt to be a surgical candidate. The patient has shown greater improvement than expected. He was successfully extubated and is not showing signs of respiratory distress. GI bleeding has appeared to stop. Renal failure has improved. Though there is some lingering confusion. Patient is now awake and alert. Given patient's prehospitalization trajectory of decline, further ongoing decline is expected. Patient will remain quite vulnerable to infection. It is anticipated he will survive the hospital now. It is uncertain if he will be able to recover to prehospital baseline. Should there be further significant setbacks during this hospitalization, it would be a poor prognostic sign. . . Code Status: No Code (resuscitation status was discussed again with the patient 's health care surrogate. The patient's brother indicated we should not reintubate the patient if he develops respiratory distress again.) Plan == Code Status: NO CODE . Brother does not feel the patient would want reintubation if there was another respiratory decompensation. == Decision making: Patient is incapacitated to make his own health care decisions and it remains uncertain if he will regain capacity. He has no spouse , no children, no surviving parents. He has one surviving brother -- Randy Gonzalez -- who is local and is the appropriate health care proxy. == Goals or medical treatment: Now that the patient is showing signs of improvement, the patient's brother wants to give him every chance to reach his maximal potential. However, brother feels the patient would not want to be resuscitated and specifically would not want to be reintubated. Goals otherwise are aggressive at this time. Brother is open to reviewing goals of medical treatment should there be another significant decline. == Pain: Patient's primary pre-hospital pain syndrome was his knee. Other sources of pain currently could include prolonged bedbound status; edema; restraints; condom catheter; and vascular access lines. Patient is not requiring analgesics at this time. No further recommendations at this time. == Encephalopathy: The patient probably had a multi-factorial hypoactive delirium / metabolic encephalopathy. Family suggests there was early dementia prior to this hospitalization. There may be an element of alcholic encephalopathy.l He is now awake and alert but does appear confused. He remains unable to speak in an audible voice. Hopefully, mental status will continue to improve as he becomes more active and stabilizes. No further recommnedations at this time. == Dyspnea: Currently controlled postextubation. Patient has long history of asthma requiring approximately 2 puffs on an albuterol inhaler daily at baseline. No further recommendations at this time. == Edema: Edema has improved significantly with diuretic therapy. Urine output has been good. Renal function has improved. No further recommendations at this time. == Disposition: I think it is unlikely that he will be able to return to independent living. Chances of significant medical setback over the next weeks to months are high. He will probably be open to a transition to "comfort measures only" and hospice should there be another major setback. == Palliative care will continue to follow to assist with symptom management and to further clarify goals of medical treatment as the clinical course evolves. . Attestation To help prompt me to consider important information that might be impacting today's encounter and assessment, information from prior notes written by myself or my colleagues may have been "brought forward" into today's note. My signature on this note, however, is an attestation that I personally performed the exam, history, and/or decision-making noted today, and, unless otherwise indicated, the interactions with patient, family, and staff as well as the review of records all occurred today. I also attest that the listed assessment and stated plan reflect my best clinical judgment today based on the combination of historical information, prior notes, and today's exam/ interactions. When time spent is documented, it refers only to time spent today by the signer, or if indicated, combined time spent today by collaborating physician/nurse practitioner. . Rod Erazo MD Jun 01, 2016 19:35
[2016-06-02] VITALS (9 sets, daily range): BP systolic 119–170; BP diastolic 58–79; PULSE 72–107; RESP 18–22; TEMP 97.9–98.5; O2SAT 90–96
[2016-06-02] MEDS ORDERED: cloNIDine HCL 0.1 MG TAB PO PRN
[2016-06-02] MEDS: INSULIN NovoLIN REGULAR SUPPLEMENTAL SCALE SQ SCH ×4 (04:33→21:41)
[2016-06-02] MEDS: FREE WATER G-TUBE SCH ×2 (04:33→10:53)
[2016-06-02] MEDS: PANTOPRAZOLE SODIUM 40 MG VIAL IV PUSH SCH (04:33)
[2016-06-02] MEDS: RESP: ALBUTEROL 2.5 MG/IPRATROPIUM 0.5 MG NEB (SCH) NEB (08:54)
[2016-06-02 09:14] LABS: AUTOMATED NEUTROPHIL # 4.7 TH/MM3 (1.8-7.7); BASOPHIL % 0.3 % (0.0-2.0); EOSINOPHIL # 0.8 TH/MM3 (0-0.4); EOSINOPHIL % 12.1 % (0.0-4.0); HEMATOCRIT 23.9 % (39.0-51.0); LYMPH % 11.4 % (9.0-44.0); LYMPHOCYTE # 0.8 TH/MM3 (1.0-4.8); MEAN CORPUSCULAR HEMOGLOBIN 29.9 PG (27.0-34.0); MEAN CORPUSCULAR HGB CONC 33.2 % (32.0-36.0); MONO % 6.7 % (0.0-8.0); NEUT % 69.5 % (16.0-70.0); PLATELET COUNT 88 TH/MM3 (150-450); RED BLOOD COUNT 2.66 MIL/MM3 (4.50-5.90); WHITE BLOOD COUNT 6.7 TH/MM3 (4.0-11.0)
[2016-06-02 09:18] LABS: HEMO FLAGS AUTO DIFF
[2016-06-02] MEDS: INSULIN DETEMIR 100 UNITS/ML VIAL SQ SCH ×2 (09:24→21:37)
[2016-06-02] MEDS: LACTULOSE SYRUP 20 GM/30 ML CUP PO SCH ×2 (09:24→21:37)
[2016-06-02] MEDS: THIAMINE HCL 100 MG TAB PO SCH (09:25)
[2016-06-02] MEDS: BUMETANIDE INJ 1 MG/4 ML VIAL IV PUSH SCH (09:25)
[2016-06-02] MEDS: BUDESONIDE-FORMOTEROL 80/4.5 MCG INHALER INH SCH ×2 (09:29→21:38)
[2016-06-02] MEDS: NYSTATIN 100,000 U/GM PWD 15 GM BTL TOPICAL SCH ×2 (09:29→21:38)
[2016-06-02 09:39] LABS: BICARBONATE 35.2 MEQ/L (21.0-32.0); POTASSIUM 3.3 MEQ/L (3.5-5.1)
[2016-06-02 10:14] LABS: PLATELET ESTIMATE SMEAR LOW (NORMAL); PLATELET MORPHOLOGY NORMAL (NORMAL); SCAN/DIFF AUTO DIFF CONFIRMED
[2016-06-02] MEDS: POTASSIUM CHLORIDE 20 MEQ PWD PACKET PO SCH ×2 (10:30→21:00)
[2016-06-02] MEDS: AMIODARONE 200 MG TAB PO SCH (12:00)
--- NOTE | 2016-06-02 13:04 | HHI.FPPN ---
Subjective Remarks Mr Gonzalez is thirsty this am and is doing well with his eating and drinking. His hands are restrained because he was reported to be swinging his legs out of bed last night. He will be moved to a bed where he can be watched more closely and freed from his restraints. He wanted juice this am and drank in one big effort an entire thickened liquid container with 230 mls and wanted more. He is not cleared to drink regular liquids yet but he has a good ability to swallow. Mr Gonzalez is very ready to participate in PT and OT and was able to stand with assistance in the [facility] and wanted to walk. He is motivated to get better. He still speaks in a very quiet voice but does follow commands and can answer questions. Objective Vitals Vital Signs Date Time Temp Pulse Resp B/P Pulse Ox O2 Delivery O2 Flow Rate FiO2 06/02/16 08:56 94 Nasal Cannula 3.00 06/02/16 02:05 98.2 79 18 170/63 96 168/68 06/02/16 01:00 72 06/02/16 00:00 80 06/01/16 23:00 79 06/01/16 23:00 97.8 76 20 150/62 96 06/01/16 22:00 80 06/01/16 21:08 94 Nasal Cannula 2.00 06/01/16 21:00 78 06/01/16 20:00 80 06/01/16 19:00 75 06/01/16 19:00 97.9 79 20 155/74 95 06/01/16 18:02 79 06/01/16 17:00 77 06/01/16 16:00 84 06/01/16 15:00 99 06/01/16 15:00 98.5 82 18 156/68 93 06/01/16 14:00 80 06/01/16 13:00 83 I/O 06/01/16 06/01/16 06/01/16 06/02/16 06/02/16 06/02/16 07:00 15:00 23:00 07:00 15:00 23:00 Intake Total 839 ml 1067 ml 0 ml Output Total 980 ml 1300 ml Balance -141 ml -233 ml 0 ml Intake Oral 150 ml 630 ml 0 ml IV Total 689 ml 437 ml Output Urine Total 980 ml 1300 ml # Voids 1 # Bowel Movements 0 2 0 Result Diagram: 06/02/16 0848 06/02/16 0848 Objective Remarks GEN: Patient is a 66-year-old male lying in bed in NAD. CV: Regular rate and rhythm with 3/6 systolic murmur systolic and soft radiation to carotids. LUNGS: Coarse breath sounds BL anteriorly without CRW. ABD: Soft, nondistended with positive bowel sounds. No masses appreciated. EXT: Trace edema of ankle and trace edema of hands, significantly improved overall. NEURO/PSYCH: Awake and alert, able to follow verbal commands. Urinary Catheter: No Vascular Central Line Catheter: No Date of Insertion: May 18, 2016 Date of Removal: May 29, 2016 Line: Central Venous Catheter Side: Right Location: Internal, Jugular A/P Assessment and Plan 65 y/o male with history of DM and osteomyelitis presented with left leg pain as well as GI bleed, diabetes mellitus. Admitted for anemia, JOSE and left knee pain. Discharge Planning Anticipate discharge to SNF vs LTAC once medically stable. Problem List: (1) Acute encephalopathy Status: Acute Plan: Improved, Pt currently awake and alert. Pt with Baseline dementia and speaks with a soft whisper. Unclear etiology. DDx: delirium, alcohol withdrawal, metabolic encephalopathy, uremia Ammonia level elevated to 57 on 05/24, will give low dose lactulose and can follow Patient agitated on 05/30, resolved with Ativan administration. Consider Haldol if there is further agitation. -Critical care consulted, have currently signed off: appreciate recs -Pt intubated 05/17-05/28 due to lethargy and airway protection Abx: Rocephin 1 g IV qd (05/19 - 05/28) Imaging: Head CT 05/29: No Acute Disease Medications: -Ativan 0.5mg IV Q2H, would try to minimize this as it may sedate him (2) JOSE (acute kidney injury) Status: Acute Plan: Ddx includes pre-renal (dehydration/hypovolemia) vs renal (ATN). Concern for underlying CKD. Associated with decreased eating and drinking prior to presentation. Baseline Cr is 0.83 from 2 years ago, admission Cr is 5.38. Pre- sedation confusion likely due to uremia. -Renal function stable today. JOSE likely due to hypotension vs IV contrast for arterial embolization for evaluation fo GI bleed. -Strict I/Os -Monitor patient's hypernatremia, currently on D5W at 40 ml/hr Nephrology consulted: appreciate recommendations * Bumex 1mg IV Daily * Continue D5W at 40ml/hr due to hypernatremia, he is thirsty so will write for a minimum po fluid intake and see how he does without the iv * Monitor fluid status and electrolytes closely * Renal function stable * Avoid nephrotoxic agents Imaging: * Renal US: Kidneys unremarkable. Finding suggesting cirrhosis and portal venous HTN with varices and recanalized paraumbilical vein. (3) Anemia Status: Acute Plan: No history of ulcers or blood thinners. Has some recent NSAID use and history of alcohol abuse. DDx: gastric/duodenal ulcer, esophageal varices, diverticulosis, colorectal cancer, polyps, IBD, hemorrhoids.H/H on admission was 6.8/20.6. Admission BUN/Cr ratio 19, suggestive of upper GI bleed and /or dehydration. S/p transfusion on 05/19 due to hemoglobin remaining low at 7.4 Echo: EF 45-50%, mild MR, mild TR -Hemoccult in ED positive. -H&H monitored; Transfuse as needed GI consulted: appreciate recommendations * s/p EGD 05/16 - Large clots in fundus, non-bleeding ulcer in duodenal bulb. Normal esophagus * Repeat EGD 05/18 - duodenal ulcers with visible vessels, cauterized -s/p arteriogram with coli and embolization of right gastric and GDA (05/18 ) * Repeat EGD 05/22 - large duodenal ulcers with no active bleeding * Liver serologies negative * Signed off Gen surgery consulted-appreciate recs: Do not recommend surgery, operative mortality approaching 100% Medications: * Protonix 40mg IV BID, consider transitioning to PO * Hold all anticoagulation (Coumadin, Plavix, Aspirin) (4) Atrial fibrillation Status: Acute Plan: Pt developed Afib with RVR. No history of Afib per patient. Given lopressor, cardizem. S/p cardizem infusion 05/17. Holding chemo ppx due to GI bleed -Amiodarone 400mg po Q12hrs -Continue to monitor tele, heart rate (5) Diabetes mellitus Status: Acute Plan: Hold home metformin and glipizide. A1c of 6.1, could be falsely low due to blood loss anemia. -Low-dose sliding scale -Levemir decreased to 5 units BID -Continue to monitor, adjust as needed (6) Cirrhosis Status: Acute Plan: Significant alcohol history. Denies alcohol withdrawals. No seizures in past. Cirrhosis seen on Renal US with evident of portal venous HTN with varices. Hepatitis panel negative. -See Ammonia above -Oral Rally pack (7) Asthma Status: Chronic Plan: -Albuterol PRN -Symbicort BID (8) Knee pain, acute Status: Acute Plan: Likely due to muscle tear and/or Santo cyst rupture contributing to pain and associated edema. -Ortho consulted: Appreciate recommendations. Does not look like septic joint because there is no significant effusion. -S/p antibiotics (Vanc 05/14-; Linezolid 05/15-05/16; Cefepime 05/14-05/16) ( Rocephin 05/19-05/28) -Pain control with Tylenol PO -Would benefit from PT once acute pain and mental status improves. Imaging: * MRI: Prominent edema in the medial calf with prominent fluid signal between the medial gastrocnemius and soleus muscles. DDX is ruptured Santo cyst versus muscle strain. Small joint effusion. No evidence of osteomyelitis. * LE ultrasound: No evidence of DVT. Elongated fluid in the proximal to mid left calf. DDX is muscle tear versus dissecting Santo cyst. 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 * Left knee XR: Negative for fracture or dislocation (9) FEN Status: Acute Plan: Fluids: D5W 40mls/hr, monitor fluid status closely, will heplock iv and get pt to drink Electrolytes: Hypokalemia replace as needed. Sodium elevated see fluids above. Nutrition: Diabetic diet DVT ppx: SCDs/TEDs, chemoprophylaxis contraindicated due to GI bleed GI ppx: Protonix Problem Qualifiers (1) Anemia: Qualified Code: D64.9 - Anemia, unspecified type (2) Atrial fibrillation: Qualified Code: I48.0 - Paroxysmal atrial fibrillation (3) Diabetes mellitus: Qualified Code: E11.8 - Type 2 diabetes mellitus with complication, without long-term current use of insulin (4) Cirrhosis: Qualified Code: K74.60 - Cirrhosis of liver without ascites, unspecified hepatic cirrhosis type (5) Asthma: Qualified Code: J45.909 - Uncomplicated asthma, unspecified asthma severity (6) Knee pain, acute: Qualified Code: M25.562 - Acute pain of left knee Chapis Farley MD Jun 02, 2016 13:04
[2016-06-02] MEDS ORDERED: LORazepam 2 MG/ML VIAL PO PRN (13:15)
[2016-06-02] MEDS: RESP: ALBUTEROL 2.5 MG/3 ML NEB (PRN) NEB (14:44)
[2016-06-02 17:53] LABS: HEMATOCRIT 27.1 % (39.0-51.0)
[2016-06-02 17:55] LABS: REVIEW FLAG FINAL
[2016-06-02] MEDS: CHLORHEXIDINE 0.12% (ORAL KIT) 15 ML CUP MT SCH (20:00)
[2016-06-02] MEDS: PANTOPRAZOLE SOD 40 MG DELAYED RELEASE TAB PO SCH (21:37)
[2016-06-02] MEDS: SODIUM CHLORIDE 0.9% FLUSH 10 ML FLUSH IV FLUSH SCH (21:37)
[2016-06-03] VITALS (7 sets, daily range): BP systolic 119–152; BP diastolic 63–70; PULSE 72–113; RESP 17–23; TEMP 97.7–98.3; O2SAT 91–97
[2016-06-03] MEDS: AMIODARONE 200 MG TAB PO SCH ×2 (00:35→13:15)
[2016-06-03] MEDS: INSULIN NovoLIN REGULAR SUPPLEMENTAL SCALE SQ SCH ×3 (02:37→21:42)
[2016-06-03 07:15] LABS: AUTOMATED NEUTROPHIL # 5.8 TH/MM3 (1.8-7.7); BASOPHIL % 0.3 % (0.0-2.0); EOSINOPHIL # 1.3 TH/MM3 (0-0.4); EOSINOPHIL % 15.3 % (0.0-4.0); HEMATOCRIT 28.5 % (39.0-51.0); HEMO FLAGS DIFF FINAL; LYMPH % 10.8 % (9.0-44.0); LYMPHOCYTE # 0.9 TH/MM3 (1.0-4.8); MEAN CELL VOLUME 90.8 FL (80.0-100.0); MEAN CORPUSCULAR HEMOGLOBIN 28.7 PG (27.0-34.0); MEAN CORPUSCULAR HGB CONC 31.6 % (32.0-36.0); MONO % 6.1 % (0.0-8.0); NEUT % 67.5 % (16.0-70.0); PLATELET COUNT 102 TH/MM3 (150-450); RED BLOOD COUNT 3.14 MIL/MM3 (4.50-5.90); RED CELL DISTRIBUTION WIDTH 19.8 % (11.6-17.2); WHITE BLOOD COUNT 8.6 TH/MM3 (4.0-11.0)
[2016-06-03 07:27] LABS: BICARBONATE 32.1 MEQ/L (21.0-32.0); MAGNESIUM 2.1 MG/DL (1.5-2.5); POTASSIUM 3.6 MEQ/L (3.5-5.1)
[2016-06-03] MEDS: MULTIVITAMIN/IRON DROPS (FE=10 MG/ML) 50 ML BTL PO SCH (08:08)
[2016-06-03] MEDS: INSULIN DETEMIR 100 UNITS/ML VIAL SQ SCH ×2 (08:08→21:40)
[2016-06-03] MEDS: THIAMINE HCL 100 MG TAB PO SCH (08:09)
[2016-06-03] MEDS: PANTOPRAZOLE SOD 40 MG DELAYED RELEASE TAB PO SCH ×2 (08:09→21:38)
[2016-06-03] MEDS: LACTULOSE SYRUP 20 GM/30 ML CUP PO SCH ×2 (08:09→21:37)
[2016-06-03] MEDS: BUMETANIDE INJ 1 MG/4 ML VIAL IV PUSH SCH (08:10)
[2016-06-03] MEDS: NYSTATIN 100,000 U/GM PWD 15 GM BTL TOPICAL SCH ×2 (08:11→21:41)
--- NOTE | 2016-06-03 08:30 | HHI.FPPN ---
Subjective Remarks Pt seen and examine this morning. No acute events overnight. Pt denies acute chest pain, shortness of breath, abdominal pain, calf pain. He is answering questions appropriately. He remains in soft restraints as he was not yet able to be morved to a bed near the nurses station for closer observation. He continues to try to pull out IV. Objective Vitals Vital Signs Date Time Temp Pulse Resp B/P Pulse Ox O2 Delivery O2 Flow Rate FiO2 06/03/16 04:47 98.3 88 20 150/66 97 06/03/16 00:30 97.7 113 22 152/70 92 06/02/16 20:25 98.4 107 22 128/79 90 06/02/16 20:00 102 06/02/16 16:01 97.9 78 20 119/58 91 06/02/16 12:00 98.5 82 20 139/65 95 06/02/16 08:56 94 Nasal Cannula 3.00 I/O 06/02/16 06/02/16 06/02/16 06/03/16 06/03/16 06/03/16 07:00 15:00 23:00 07:00 15:00 23:00 Intake Total 0 ml 480 ml Output Total 500 ml 350 ml Balance 0 ml -20 ml -350 ml Intake Oral 0 ml 480 ml Output Urine Total 500 ml 350 ml # Voids 1 2 # Bowel Movements 0 0 Result Diagram: 06/03/16 0608 06/03/16 0608 Objective Remarks GEN: Patient is a 66-year-old male lying in bed in [facility]. CV: Regular rate and irregular rhythm with 3/6 systolic murmur systolic and soft radiation to carotids. LUNGS: Coarse breath sounds BL anteriorly without CRW. ABD: Soft, nondistended with positive bowel sounds. No masses appreciated. EXT: Improved edema of hands and lower extremities. NEURO/PSYCH: Awake and alert, able to follow verbal commands. Date of Insertion: May 18, 2016 Date of Removal: May 29, 2016 Line: Central Venous Catheter Side: Right Location: Internal, Jugular A/P Assessment and Plan 65 y/o male with history of DM and osteomyelitis presented with left leg pain as well as GI bleed, diabetes mellitus. Admitted for anemia, JOSE and left knee pain. Discharge Planning Anticipate discharge to SNF vs LTAC once medically stable. Problem List: (1) Decreased oral intake Status: Acute Plan: Pt with Oral intake of 480ml If oral intake remains low, restart fluids. Medical team may need to consider alternate means of nutrition. (2) Acute encephalopathy Status: Acute Plan: Improved, Pt currently awake and alert. Pt with Baseline dementia and speaks with a soft whisper. Unclear etiology. DDx: delirium, alcohol withdrawal, metabolic encephalopathy, uremia Ammonia level elevated to 57 on 05/24, will give low dose lactulose and can follow Patient agitated on 05/30, resolved with Ativan administration. Consider Haldol if there is further agitation. -Critical care consulted, have currently signed off: appreciate recs -Pt intubated 05/17-05/28 due to lethargy and airway protection Abx: Rocephin 1 g IV qd (05/19 - 05/28) Imaging: Head CT 05/29: No Acute Disease Medications: -Ativan 0.5mg IV Q2H, would try to minimize this as it may sedate him (3) JOSE (acute kidney injury) Status: Acute Plan: Ddx includes pre-renal (dehydration/hypovolemia) vs renal (ATN). Concern for underlying CKD. Associated with decreased eating and drinking prior to presentation. Baseline Cr is 0.83 from 2 years ago, admission Cr is 5.38. Pre- sedation confusion likely due to uremia. -Renal function stable today. JOSE likely due to hypotension vs IV contrast for arterial embolization for evaluation fo GI bleed. -Strict I/Os -Monitor patient's hypernatremia, currently on D5W at 40 ml/hr Nephrology consulted: appreciate recommendations * Bumex 1mg IV Daily * Continue D5W at 40ml/hr due to hypernatremia, he is thirsty so will write for a minimum po fluid intake and see how he does without the iv * Monitor fluid status and electrolytes closely * Renal function stable * Avoid nephrotoxic agents Imaging: * Renal US: Kidneys unremarkable. Finding suggesting cirrhosis and portal venous HTN with varices and recanalized paraumbilical vein. (4) Anemia Status: Acute Plan: No history of ulcers or blood thinners. Has some recent NSAID use and history of alcohol abuse. DDx: gastric/duodenal ulcer, esophageal varices, diverticulosis, colorectal cancer, polyps, IBD, hemorrhoids.H/H on admission was 6.8/20.6. Admission BUN/Cr ratio 19, suggestive of upper GI bleed and /or dehydration. S/p transfusion on 05/19 due to hemoglobin remaining low at 7.4 Echo: EF 45-50%, mild MR, mild TR -Hemoccult in ED positive. -H&H monitored; Transfuse as needed GI consulted: appreciate recommendations * s/p EGD 05/16 - Large clots in fundus, non-bleeding ulcer in duodenal bulb. Normal esophagus * Repeat EGD 05/18 - duodenal ulcers with visible vessels, cauterized -s/p arteriogram with coli and embolization of right gastric and GDA (05/18 ) * Repeat EGD 05/22 - large duodenal ulcers with no active bleeding * Liver serologies negative * Signed off Gen surgery consulted-appreciate recs: Do not recommend surgery, operative mortality approaching 100% Medications: * Protonix 40mg IV BID, consider transitioning to PO * Hold all anticoagulation (Coumadin, Plavix, Aspirin) (5) Atrial fibrillation Status: Acute Plan: Pt developed Afib with RVR. No history of Afib per patient. Given lopressor, cardizem. S/p cardizem infusion 05/17. Holding chemo ppx due to GI bleed -Amiodarone 400mg po Q12hrs -Continue to monitor tele, heart rate (6) Diabetes mellitus Status: Acute Plan: Hold home metformin and glipizide. A1c of 6.1, could be falsely low due to blood loss anemia. -Low-dose sliding scale -Levemir decreased to 5 units BID -Continue to monitor, adjust as needed (7) Cirrhosis Status: Acute Plan: Significant alcohol history. Denies alcohol withdrawals. No seizures in past. Cirrhosis seen on Renal US with evident of portal venous HTN with varices. Hepatitis panel negative. -See Ammonia above -Oral Rally pack (8) Asthma Status: Chronic Plan: -Albuterol PRN -Symbicort BID (9) Knee pain, acute Status: Acute Plan: Likely due to muscle tear and/or Santo cyst rupture contributing to pain and associated edema. -Ortho consulted: Appreciate recommendations. Does not look like septic joint because there is no significant effusion. -S/p antibiotics (Vanc 05/14-; Linezolid 05/15-05/16; Cefepime 05/14-05/16) ( Rocephin 05/19-05/28) -Pain control with Tylenol PO -Would benefit from PT once acute pain and mental status improves. Imaging: * MRI: Prominent edema in the medial calf with prominent fluid signal between the medial gastrocnemius and soleus muscles. DDX is ruptured Santo cyst versus muscle strain. Small joint effusion. No evidence of osteomyelitis. * LE ultrasound: No evidence of DVT. Elongated fluid in the proximal to mid left calf. DDX is muscle tear versus dissecting Santo cyst. 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 * Left knee XR: Negative for fracture or dislocation (10) FEN Status: Acute Plan: Fluids: None, will heplock iv and get pt to drink, monitor fluid status closely. Consider restarting as pt with decreased PO intake. Electrolytes: Potassium within normal limits. Sodium elevated to 154, stable from yesterday. Nutrition: Diabetic diet DVT ppx: SCDs/TEDs, chemoprophylaxis contraindicated due to GI bleed GI ppx: Protonix Problem Qualifiers (1) Anemia: Qualified Code: D64.9 - Anemia, unspecified type (2) Atrial fibrillation: Qualified Code: I48.0 - Paroxysmal atrial fibrillation (3) Diabetes mellitus: Qualified Code: E11.8 - Type 2 diabetes mellitus with complication, without long-term current use of insulin (4) Cirrhosis: Qualified Code: K74.60 - Cirrhosis of liver without ascites, unspecified hepatic cirrhosis type (5) Asthma: Qualified Code: J45.909 - Uncomplicated asthma, unspecified asthma severity (6) Knee pain, acute: Qualified Code: M25.562 - Acute pain of left knee Hu Flood MD R2 Jun 03, 2016 08:30
[2016-06-03] MEDS: BUDESONIDE-FORMOTEROL 80/4.5 MCG INHALER INH SCH ×2 (09:00→21:38)
[2016-06-03] MEDS: CHLORHEXIDINE 0.12% (ORAL KIT) 15 ML CUP MT SCH (20:00)
[2016-06-03] MEDS: SODIUM CHLORIDE 0.9% FLUSH 10 ML FLUSH IV FLUSH SCH (21:39)
[2016-06-04] VITALS (9 sets, daily range): BP systolic 107–165; BP diastolic 53–71; PULSE 71–83; RESP 18–20; TEMP 97.6–98.6; O2SAT 91–99
[2016-06-04] MEDS: AMIODARONE 200 MG TAB PO SCH ×3 (00:30→23:00)
[2016-06-04] MEDS: INSULIN NovoLIN REGULAR SUPPLEMENTAL SCALE SQ SCH ×4 (03:24→23:05)
[2016-06-04 07:50] LABS: BICARBONATE 31.9 MEQ/L (21.0-32.0); POTASSIUM 3.6 MEQ/L (3.5-5.1)
[2016-06-04] MEDS: NYSTATIN 100,000 U/GM PWD 15 GM BTL TOPICAL SCH ×2 (09:00→23:03)
[2016-06-04] MEDS: RESP: ALBUTEROL 2.5 MG/3 ML NEB (PRN) NEB (09:27)
--- NOTE | 2016-06-04 11:03 | HHI.FPPN ---
Subjective Remarks Patient seen and examined this morning. No acute events overnight. Patient with one desaturation overnight to 91%, but responded to supplemental O2 to 99%. This morning his only complaint is L anterior knee pain. He states the pain ins tolerable and was present before his admission to the hospital. He is currently still in 2 point restraints as he was unable to receive a stay close room. Discussed with the nursing staff possibility of trial without restrains which will be attempted today. Otherwise he has no complaints and denies any fevers, chills, SOB, chest pain, NVD, ABD pain, and calf tenderness. (Oswaldo Real MD R1) Objective Vitals Vital Signs Date Time Temp Pulse Resp B/P Pulse Ox O2 Delivery O2 Flow Rate FiO2 06/04/16 09:31 91 Nasal Cannula 06/04/16 08:00 98.0 74 20 143/65 94 06/04/16 04:44 97.6 73 20 141/67 97 06/04/16 00:00 98.6 71 20 165/71 99 06/03/16 20:00 72 06/03/16 20:00 98.1 75 23 132/63 91 06/03/16 16:02 98.2 79 19 140/65 95 06/03/16 12:24 98.1 98 20 119/67 95 I/O 06/03/16 06/03/16 06/03/16 06/04/16 06/04/16 06/04/16 07:00 15:00 23:00 07:00 15:00 23:00 Intake Total 600 ml 480 ml 480 ml Output Total 2 ml Balance 598 ml 480 ml 480 ml Intake Oral 600 ml 480 ml 480 ml Output Urine Total 2 ml # Voids 2 2 2 # Bowel Movements 0 1 (Oswaldo Real MD R1) Result Diagram: 06/03/16 0608 06/04/16 0640 Objective Remarks GEN: Patient is a 66-year-old male lying in bed in [facility]. CV: Regular rate and irregular rhythm with 2/6 systolic murmur. LUNGS: Coarse breath sounds BL anteriorly without CRW, improved from prior exams. ABD: Soft, nondistended with positive bowel sounds. No masses appreciated. EXT: Significantly improved edema of hands and lower extremities. No calf tenderness BL. NEURO/PSYCH: AAOx3. Patient with soft speech likely secondary to intubation. Normal and appropriate speech. (Oswaldo Real MD R1) Date of Insertion: May 18, 2016 Date of Removal: May 29, 2016 Line: Central Venous Catheter Side: Right Location: Internal, Jugular (Oswaldo Real MD R1) A/P Assessment and Plan 65 y/o male with history of DM and osteomyelitis presented with left leg pain as well as GI bleed, diabetes mellitus who was dmitted for anemia, JOSE and left knee pain. Discharge Planning Discharge pending clinical course and placement for continued rehabilitation at [facility] vs. SNF. DW: Dr. Dill, Dr. Juarez (Oswaldo Real MD R1) Attending Attestation Pt. examined and case discussed with resident team I have read the above note and agree with the assessment/plan as discussed with me I was involved in all medical decision making for this patient Enrico Dill MD (Enrico Dill MD) Problem List: (1) Decreased oral intake Status: Acute Plan: Patient with Oral intake of 480mL on 06/03/16 currently not on IV fluids. Intake of 1560 mL over the last 24 hours with improving hypernatremia Continue to monitor oral intake. If intake remains low, team will initiate IV fluids. (2) Acute encephalopathy Status: Acute Plan: Improved, Pt currently awake and alert. Pt with Baseline dementia and speaks with a soft whisper likely secondary to intubation. Unclear etiology. DDx: delirium, alcohol withdrawal, metabolic encephalopathy, uremia Ammonia level elevated to 57 on 05/24, given low dose lactulose Patient agitated on 05/30, resolved with Ativan administration. Consider Haldol if there is further agitation. -Critical care consulted, have currently signed off -Pt intubated 05/17-05/28 due to lethargy and airway protection Abx: Rocephin 1 g IV qd (05/19 - 05/28) Imaging: Head CT 05/29: No Acute Disease Medications: -Ativan 0.5mg IV Q2H, would try to minimize this as it may sedate him (3) JOSE (acute kidney injury) Status: Acute Plan: Ddx includes pre-renal (dehydration/hypovolemia) vs renal (ATN). Concern for underlying CKD. Associated with decreased eating and drinking prior to presentation. Baseline Cr is 0.83 from 2 years ago, admission Cr is 5.38. Pre- sedation confusion likely due to uremia. -Renal function stable today. JOSE likely due to hypotension vs IV contrast for arterial embolization for evaluation fo GI bleed. -Strict I/Os -Monitor patient's hypernatremia Nephrology consulted: appreciate recommendations * Bumex 1mg IV Daily * Monitor fluid status and electrolytes closely * Renal function stable * Avoid nephrotoxic agents Imaging: * Renal US: Kidneys unremarkable. Finding suggesting cirrhosis and portal venous HTN with varices and recanalized paraumbilical vein. (4) Anemia Status: Acute Plan: No history of ulcers or blood thinners. Has some recent NSAID use and history of alcohol abuse. DDx: gastric/duodenal ulcer, esophageal varices, diverticulosis, colorectal cancer, polyps, IBD, hemorrhoids.H/H on admission was 6.8/20.6. Admission BUN/Cr ratio 19, suggestive of upper GI bleed and /or dehydration. S/p transfusion on 05/19 due to hemoglobin remaining low at 7.4 Echo: EF 45-50%, mild MR, mild TR -Hemoccult in ED positive. -H&H monitored; Transfuse as needed GI consulted: appreciate recommendations * s/p EGD 05/16 - Large clots in fundus, non-bleeding ulcer in duodenal bulb. Normal esophagus * Repeat EGD 05/18 - duodenal ulcers with visible vessels, cauterized -s/p arteriogram with coli and embolization of right gastric and GDA (05/18 ) * Repeat EGD 05/22 - large duodenal ulcers with no active bleeding * Liver serologies negative * Signed off Gen surgery consulted-appreciate recs: Do not recommend surgery, operative mortality approaching 100% Medications: * Protonix 40mg IV BID, consider transitioning to PO * Hold all anticoagulation (Coumadin, Plavix, Aspirin) (5) Atrial fibrillation Status: Acute Plan: Pt developed Afib with RVR. No history of Afib per patient. S/p cardizem infusion 05/17. Holding chemo ppx due to GI bleed -Amiodarone 400mg po Q12hrs -Continue to monitor tele, heart rate (6) Diabetes mellitus Status: Acute Plan: Hold home metformin and glipizide. A1c of 6.1, could be falsely low due to blood loss anemia. -Low-dose sliding scale -Levemir decreased to 5 units BID -Continue to monitor, adjust as needed (7) Cirrhosis Status: Acute Plan: Significant alcohol history. Denies alcohol withdrawals. No seizures in past. Cirrhosis seen on Renal US with evident of portal venous HTN with varices. Hepatitis panel negative. -See Ammonia above -Oral Rally pack (8) Asthma Status: Chronic Plan: -Albuterol PRN -Symbicort BID (9) Knee pain, acute Status: Acute Plan: Likely due to muscle tear and/or Santo cyst rupture contributing to pain and associated edema. -Ortho consulted: Appreciate recommendations. Does not look like septic joint because there is no significant effusion. -S/p antibiotics (Vanc 05/14-; Linezolid 05/15-05/16; Cefepime 05/14-05/16) ( Rocephin 05/19-05/28) -Pain control with Tylenol PO -Would benefit from PT once acute pain and mental status improves. Imaging: * MRI: Prominent edema in the medial calf with prominent fluid signal between the medial gastrocnemius and soleus muscles. DDX is ruptured Santo cyst versus muscle strain. Small joint effusion. No evidence of osteomyelitis. * LE ultrasound: No evidence of DVT. Elongated fluid in the proximal to mid left calf. DDX is muscle tear versus dissecting Santo cyst. 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 * Left knee XR: Negative for fracture or dislocation (10) FEN Status: Acute Plan: Fluids: None, will heplock iv and get pt to drink, monitor fluid status closely. Consider restarting as pt with decreased PO intake. Electrolytes: Potassium within normal limits. Sodium elevated to 154, stable from yesterday. Nutrition: Diabetic diet, mechanical soft with honey consistency DVT ppx: SCDs/TEDs, chemoprophylaxis contraindicated due to GI bleed GI ppx: Protonix PT/OT/ST consulting (Oswaldo Real MD R1) Problem Qualifiers (1) Anemia: Qualified Code: D64.9 - Anemia, unspecified type (2) Atrial fibrillation: Qualified Code: I48.0 - Paroxysmal atrial fibrillation (3) Diabetes mellitus: Qualified Code: E11.8 - Type 2 diabetes mellitus with complication, without long-term current use of insulin (4) Cirrhosis: Qualified Code: K74.60 - Cirrhosis of liver without ascites, unspecified hepatic cirrhosis type (5) Asthma: Qualified Code: J45.909 - Uncomplicated asthma, unspecified asthma severity (6) Knee pain, acute: Qualified Code: M25.562 - Acute pain of left knee Oswaldo Real MD R1 Jun 04, 2016 11:03 Enrico Dill MD Jun 04, 2016 16:20
[2016-06-04] MEDS: INSULIN DETEMIR 100 UNITS/ML VIAL SQ SCH ×2 (11:47→23:03)
[2016-06-04] MEDS: LACTULOSE SYRUP 20 GM/30 ML CUP PO SCH ×2 (11:48→23:04)
[2016-06-04] MEDS: MULTIVITAMIN/IRON DROPS (FE=10 MG/ML) 50 ML BTL PO SCH (11:48)
[2016-06-04] MEDS: THIAMINE HCL 100 MG TAB PO SCH (11:48)
[2016-06-04] MEDS: PANTOPRAZOLE SOD 40 MG DELAYED RELEASE TAB PO SCH ×2 (11:48→23:00)
[2016-06-04] MEDS: SODIUM CHLORIDE 0.9% FLUSH 10 ML FLUSH IV FLUSH SCH ×2 (11:50→23:03)
[2016-06-04] MEDS: BUMETANIDE INJ 1 MG/4 ML VIAL IV PUSH SCH (11:59)
[2016-06-04] MEDS ORDERED: ONDANSETRON ODT 4 MG TAB PO PRN (15:15)
[2016-06-04] MEDS: CHLORHEXIDINE 0.12% (ORAL KIT) 15 ML CUP MT SCH (20:00)
[2016-06-04] MEDS: BUDESONIDE-FORMOTEROL 80/4.5 MCG INHALER INH SCH ×2 (21:00→23:04)
--- NOTE | 2016-06-04 22:35 | HHI.HCPN ---
Reason for visit a. To assist with evaluation and management of symptoms including: encephalopathy; weakness. b. To assist medical decision maker(s) with: better understanding of current medical conditions; weighing benefits/burdens of medical treatment options; making medical treatment decisions. . Subjective/Interval History Patient seen and examined in room. at 3:30pm. Awakened upon my arrival. Patient is lethargy, slow to wake. He can is able to answer some simple questions. Falls off to sleep while talking, does not appear to have insight or judgement today, does not appear capacitated. Afebrile. On oxygen 3 LPM via NC. BP stable. LBM 06/04/16. Creatinine 1.75 decreased from 1.98. Cultures negative to date. No new imaging. . Family/friend interactions Will attempt to call brother. . Advance Directives Living Will: Never completed Health Care Surrogate: Never completed Durable Power of Skein Bleacher: Never completed Advance Directive Specifics Date completed: The patient has never completed a living will or designation of health care surrogate. . Health Care Surrogate(s): The patient has never completed a living will or designation of health care surrogate. . Documented care wishes: There is no written documentation of health care goals or preferences. . Significant change in goals: NO CODE. Desires continued aggressive care short of NO CODE. . Objective Vital Signs Date Time Temp Pulse Resp B/P Pulse Ox O2 Delivery O2 Flow Rate FiO2 06/04/16 20:45 98.2 75 20 135/62 98 06/04/16 20:24 96 Nasal Cannula 3.00 06/04/16 16:00 98.3 75 18 120/59 96 06/04/16 12:00 98.1 83 18 107/53 97 06/04/16 09:31 91 Nasal Cannula 06/04/16 08:00 98.0 74 20 143/65 94 06/04/16 04:44 97.6 73 20 141/67 97 06/04/16 00:00 98.6 71 20 165/71 99 Intake & Output 06/04/16 06/04/16 07:00 19:00 Intake Total 960 ml 960 ml Balance 960 ml 960 ml Intake Oral 960 ml 960 ml # Voids 4 3 # Bowel Movements 1 1 Physical Exam CONSTITUTIONAL/GENERAL: This is an adequately nourished patient, awake, alert, in intermediate unit. Voice weak but audible.. Answers basic questions and follows basic commands but confused and disoriented. TUBES/LINES/DRAINS: condom catheter; peripheral IV SKIN: No jaundice, rashes, or lesions. . No wounds seen anteriorly. Skin temperature appropriate. Not diaphoretic. ENT: Appears to hear me fine. Nose without bleeding or purulent drainage. Lips dry. CARDIOVASCULAR: Regular rate and rhythm without murmurs, gallops, or rubs. No JVD. RESPIRATORY/CHEST: Symmetric, unlabored respirations. Clear to auscultation. Breath sounds equal bilaterally. GASTROINTESTINAL: Abdomen soft, non-tender, nondistended. No guarding. Bowel sounds present. GENITOURINARY: Without palpable bladder distension.Condom catheter in place. MUSCULOSKELETAL: Extremities without clubbing, cyanosis. No edema. . No calf tenderness. No mottling or clubbing. NEUROLOGICAL: Awakens, lethargic, falls off to sleep when talking. Moves all extremities. PSYCHIATRIC: No obvious depression or anxiety. No obvious hallucinations or other psychotic thought process. . Diagnostic Tests Laboratory Laboratory Tests Test 06/02/16 06/02/16 06/03/16 06/04/16 08:48 17:27 06:08 06:40 White Blood Count 6.7 TH/MM3 8.6 TH/MM3 (4.0-11.0) (4.0-11.0) Red Blood Count 2.66 MIL/MM3 3.14 MIL/MM3 (4.50-5.90) (4.50-5.90) Hemoglobin 7.9 GM/DL 8.5 GM/DL 9.0 GM/DL (13.0-17.0) (13.0-17.0) (13.0-17.0) Hematocrit 23.9 % 27.1 % 28.5 % (39.0-51.0) (39.0-51.0) (39.0-51.0) Mean Corpuscular Volume 90.0 FL 90.8 FL (80.0-100.0) (80.0-100.0) Mean Corpuscular Hemoglobin 29.9 PG 28.7 PG (27.0-34.0) (27.0-34.0) Mean Corpuscular Hemoglobin 33.2 % 31.6 % Concent (32.0-36.0) (32.0-36.0) Red Cell Distribution Width 19.0 % 19.8 % (11.6-17.2) (11.6-17.2) Platelet Count 88 TH/MM3 102 TH/MM3 (150-450) (150-450) Mean Platelet Volume 7.4 FL 8.0 FL (7.0-11.0) (7.0-11.0) Neutrophils (%) (Auto) 69.5 % 67.5 % (16.0-70.0) (16.0-70.0) Lymphocytes (%) (Auto) 11.4 % 10.8 % (9.0-44.0) (9.0-44.0) Monocytes (%) (Auto) 6.7 % (0.0-8.0) 6.1 % (0.0-8.0) Eosinophils (%) (Auto) 12.1 % 15.3 % (0.0-4.0) (0.0-4.0) Basophils (%) (Auto) 0.3 % (0.0-2.0) 0.3 % (0.0-2.0) Neutrophils # (Auto) 4.7 TH/MM3 5.8 TH/MM3 (1.8-7.7) (1.8-7.7) Lymphocytes # (Auto) 0.8 TH/MM3 0.9 TH/MM3 (1.0-4.8) (1.0-4.8) Monocytes # (Auto) 0.4 TH/MM3 0.5 TH/MM3 (0-0.9) (0-0.9) Eosinophils # (Auto) 0.8 TH/MM3 1.3 TH/MM3 (0-0.4) (0-0.4) Basophils # (Auto) 0.0 TH/MM3 0.0 TH/MM3 (0-0.2) (0-0.2) CBC Comment AUTO DIFF DIFF FINAL Differential Comment AUTO DIFF CONFIRMED Platelet Estimate LOW (NORMAL) Platelet Morphology Comment NORMAL (NORMAL) Sodium Level 154 MEQ/L 154 MEQ/L 152 MEQ/L (136-145) (136-145) (136-145) Potassium Level 3.3 MEQ/L 3.6 MEQ/L 3.6 MEQ/L (3.5-5.1) (3.5-5.1) (3.5-5.1) Chloride Level 115 MEQ/L 117 MEQ/L 116 MEQ/L (98-107) (98-107) (98-107) Carbon Dioxide Level 35.2 MEQ/L 32.1 MEQ/L 31.9 MEQ/L (21.0-32.0) (21.0-32.0) (21.0-32.0) Anion Gap 4 MEQ/L (5-15) 5 MEQ/L (5-15) 4 MEQ/L (5-15) Blood Urea Nitrogen 51 MG/DL (7-18) 43 MG/DL (7-18) 39 MG/DL (7-18) Creatinine 2.01 MG/DL 1.98 MG/DL 1.75 MG/DL (0.60-1.30) (0.60-1.30) (0.60-1.30) Estimat Glomerular Filtration 33 ML/MIN (>89) 34 ML/MIN (>89) 39 ML/MIN (>89) Rate Random Glucose 154 MG/DL 172 MG/DL 118 MG/DL (74-106) (74-106) (74-106) Calcium Level 7.8 MG/DL 7.8 MG/DL 7.8 MG/DL (8.5-10.1) (8.5-10.1) (8.5-10.1) Phosphorus Level 2.2 MG/DL (2.5-4.9) Magnesium Level 2.1 MG/DL (1.5-2.5) Result Diagram: 06/03/16 0608 06/04/16 0640 Microbiology Microbiology Date/Time Procedure Status Source Growth 06/03/16 04:50 Stool Occult Blood (AKUA) - Final Complete Stool Stool HEMOCCULT NEGATIVE Imaging Last Impressions Head CT 05/29/16 0000 Signed Impressions: Service Date/Time: Sunday, May 29, 2016 17:04 - CONCLUSION: No acute disease. Myron Henderson MD Chest X-Ray 05/27/16 0600 Signed Impressions: Service Date/Time: Friday, May 27, 2016 04:50 - CONCLUSION: Hazy density bases being worse on the left representing some consolidation, atelectasis and likely mild effusions. Questionable asymmetric density in the right lung apex. This area could be further evaluated with CT examination. Olegario Heart MD GI Bleed Scan Nuclear Medicine 05/20/16 Signed Impressions: Service Date/Time: Friday, May 20, 2016 14:25 - CONCLUSION: 1. Positive for gastrointestinal bleed in small bowel, probably at the proximal duodenum. Randy Byrne MD Central Venous Line 05/18/16 Signed Impressions: Service Date/Time: Wednesday, May 18, 2016 00:00 - CONCLUSION: Uncomplicated line placement as above. Wilver Mendoza MD Celiac/Hepatic Arteriogram 05/18/16 Signed Impressions: Service Date/Time: Wednesday, May 18, 2016 16:21 - CONCLUSION: 1. Active bleeding identified off the GDA in the expected location of the duodenum. 2. Successful coil and Gelfoam embolization of the right gastric and GDA as detailed above. Wilver Mendoza MD Renal Ultrasound 05/15/16 Signed Impressions: Service Date/Time: Sunday, May 15, 2016 10:50 - CONCLUSION: 1. Kidneys within normal limits. 2. Findings suggesting cirrhosis and portal venous hypertension with varices and recanalized paraumbilical vein. Get Franco MD Lower Extremity Ultrasound 05/15/16 Signed Impressions: Service Date/Time: Sunday, May 15, 2016 08:41 - CONCLUSION: 1. No evidence of lower extremity DVT on the right or left. 2. Elongated fluid in the proximal to mid left calf. The rectal diagnosis is muscle tear versus dissecting Santo cyst. 3. 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 Get Franco MD Knee MRI 05/15/16 Signed Impressions: Service Date/Time: Sunday, May 15, 2016 16:51 - CONCLUSION: 1. Prominent edema in the medial calf with prominent fluid signal between the medial gastrocnemius and soleus muscles. Differential diagnosis is ruptured Santo cyst versus muscle strain. No fluid-filled gap in muscle fibers is seen. There is also adjacent superficial soft tissue edema in this region. 2. Small horizontal tear of the body of the medial meniscus. 3. Small joint effusion. 4. Mild reactive bony edema in the patella. 5. No evidence of osteomyelitis. 6. Moderate focal medial facet patellar chondromalacia. Get Franco MD Knee X-Ray 3/27/17 0000 Signed Impressions: Service Date/Time: Saturday, May 14, 2016 15:44 - CONCLUSION: Negative for fracture or dislocation. Follow up in 7-10 days is suggested if symptoms persist. Alexy Padron MD FACR Procedures * Attempted arthrocentesis * Right internal jugular central line placement * Orotracheal intubation * EGD 05/16/2016 and 05/18/2016 and 05/22/16 * Gastro-duodenal artery embolization 05/18/16 . Assessment and Plan Disease Oriented Problem List: (1) GI bleed Comment: EGD demonstrated multiple large round and deep duodenal ulcers. Ulcers were noted in the duodenal bulb and in the second part. Patient has undergone gastro-duodenal embolization. He has undergone 3 EGDs since hospital admission. He has had multiple transfusions. Bleeding appears to have stopped. . (2) JOSE (acute kidney injury) Comment: Initial GFR was 11. Kidney function has improved substantially. Nephropathy probably secondary to the patient's underlying diabetes and possibly to underperfusion due to blood loss anemia. . (3) Cirrhosis Comment: Patient noted to have cirrhosis and portal hypertension on imaging. Patient with long history of excessive alcohol consumption. . (4) Acute encephalopathy Comment: Etiology of encephalopathy is uncertain. May be a multifactorial delirium and/or a metabolic encephalopathy. Appears to be improving but apparent confusion persists. Patient was having evidence of dementia prior to this hospitalization. May also have some underlying alcoholic related encephalopathy. . (5) Knee pain, acute Comment: Etiology is still uncertain. No fluid was available to tap. Orthopedics did not think this was an infected joint. MRI of the extremity showed no evidence of osteomyelitis. There was a small horizontal tear of the body of the medial meniscus. There was a small joint effusion. There was moderate focal medial facet patellar chondromalacia. There was also evidence of fluid which possibly represented a ruptured Santo cyst versus a muscle strain. . (6) Diabetes mellitus (7) Anemia Comment: Patient has blood loss anemia. Uncertain what underlying hemoglobin normally is. Patient was found to have multiple to lauded no ulcers.. There may also be an underlying nutritional anemia related to the patient's alcohol use. . (8) Alcohol abuse Comment: Family reports patient normally drinks 6-7 alcoholic drinks per day. Has not had complications such as blackouts or seizures to the knowledge of family. .. (9) Asthma Comment: Patient has had asthma since childhood. . Symptom Scale: (1) Pain 0-10 Scale: Unable to quantify Comment: Had been having 9/10 pain in the left knee. No other known prehospitalization pain syndromes. Other possible sources of pain include prolonged bedbound status; Donaldson catheter; edema in the extremities and scrotum ; restraints; and vascular access lines. Patient denies pain today. No recent use of narcotic analgesics required. . (2) Dyspnea 0-10 Scale: 0 Comment: Patient with long history of asthma requiring at least 2 doses of a albuterol inhaler daily at baseline. Patient had required intubation and mechanical ventilation but now extubated and appearing comfortable with nasal cannula oxygen. . (3) Encephalopathy 0-10 Scale: Unable to quantify Comment: Patient is awake and alert but still appears confused. He is able to follow some commands. His baseline status is still a little unclear. . . Pertinent Non-Medical Issues Psychosocial: Patient psychosocial support in this area comes primarily from his brother Randy and Randy's who live here. Patient is unmarried, has no children, but does have some close friends in his home state of [place]. Spiritual: Judaism and spirituality have not played an important role in his life. Legal: Patient has never completed an advanced directive. Under [place] statutes, his brother, Radny, would be his legal proxy for healthcare decision- making. Randy has accepted this role. Ethical issues impacting care: Patient is currently incapacitated to make his own health care decisions. It is unclear if he will regain capacity. His encephalopathy has improved, but he still appears somewhat confused. . Important Contacts * Randy Gonzalez (brother and health care proxy) [phone] . Prognosis Mr Gonzalez is a 66 y/o male diabetic with known hepatic cirrhosis who was critically ill here with respiratory failure requiring intubation/mechanical ventilation; GI bleeding from multiple duodenal ulcers, renal failure, and encephalopathy of uncertain etiology. He had been suffering from a significant cognitive decline even prior to this hospitalization. He has received 16 units of PRBCs since admission. He is not felt to be a surgical candidate. The patient has shown greater improvement than expected. He was successfully extubated and is not showing signs of respiratory distress. GI bleeding has appeared to stop. Renal failure has improved. Though there is some lingering confusion. Patient is now awake and alert. Given patient's prehospitalization trajectory of decline, further ongoing decline is expected. Patient will remain quite vulnerable to infection. It is anticipated he will survive the hospital now. It is uncertain if he will be able to recover to prehospital baseline. Should there be further significant setbacks during this hospitalization, it would be a poor prognostic sign. . . Code Status: No Code (resuscitation status was discussed again with the patient 's health care surrogate. The patient's brother indicated we should not reintubate the patient if he develops respiratory distress again.) Plan * Code Status: NO CODE . Brother does not feel the patient would want reintubation if there was another respiratory decompensation. * Decision making: Patient is incapacitated to make his own health care decisions and it remains uncertain if he will regain capacity. He has no spouse , no children, no surviving parents. He has one surviving brother -- Randy Gonzalez -- who is local and is the appropriate health care proxy. * Goals or medical treatment: Now that the patient is showing signs of improvement, the patient's brother wants to give him every chance to reach his maximal potential. However, brother feels the patient would not want to be resuscitated and specifically would not want to be reintubated. Goals otherwise are aggressive at this time. Brother is open to reviewing goals of medical treatment should there be another significant decline. * Pain: Patient's primary pre-hospital pain syndrome was his knee. Other sources of pain currently could include prolonged bedbound status; edema; restraints; condom catheter; and vascular access lines. Patient is not requiring analgesics at this time. No further recommendations at this time. * Encephalopathy: The patient probably had a multi-factorial hypoactive delirium / metabolic encephalopathy. Family suggests there was early dementia prior to this hospitalization. There may be an element of alcholic encephalopathy.l He is now awake and alert but does appear confused. He remains unable to speak in an audible voice. Hopefully, mental status will continue to improve as he becomes more active and stabilizes. No further recommendations at this time. * Dyspnea: Currently controlled postextubation. Patient has long history of asthma requiring approximately 2 puffs on an albuterol inhaler daily at baseline. No further recommendations at this time. * Disposition: I think it is unlikely that he will be able to return to independent living. Chances of significant medical setback over the next weeks to months are high. He will probably be open to a transition to "comfort measures only" and hospice should there be another major setback. * Palliative care will continue to follow to assist with symptom management and to further clarify goals of medical treatment as the clinical course evolves. . Attestation To help prompt me to consider important information that might be impacting today's encounter and assessment, information from prior notes written by myself or my colleagues may have been "brought forward" into today's note. My signature on this note, however, is an attestation that I personally performed the exam, history, and/or decision-making noted today, and, unless otherwise indicated, the interactions with patient, family, and staff as well as the review of records all occurred today. I also attest that the listed assessment and stated plan reflect my best clinical judgment today based on the combination of historical information, prior notes, and today's exam/ interactions. When time spent is documented, it refers only to time spent today by the signer, or if indicated, combined time spent today by collaborating physician/nurse practitioner. ROSAURA BUNDY Jun 04, 2016 22:35
[2016-06-05] VITALS (10 sets, daily range): BP systolic 119–156; BP diastolic 54–72; PULSE 75–89; RESP 18–19; TEMP 98.1–98.8; O2SAT 88–99
[2016-06-05] MEDS: INSULIN NovoLIN REGULAR SUPPLEMENTAL SCALE SQ SCH ×4 (02:41→22:20)
[2016-06-05 08:29] LABS: BICARBONATE 28.7 MEQ/L (21.0-32.0)
[2016-06-05] MEDS: BUDESONIDE-FORMOTEROL 80/4.5 MCG INHALER INH SCH ×2 (08:55→22:21)
[2016-06-05] MEDS: THIAMINE HCL 100 MG TAB PO SCH (08:57)
[2016-06-05] MEDS: CHLORHEXIDINE 0.12% (ORAL KIT) 15 ML CUP MT SCH ×2 (08:57→20:00)
[2016-06-05] MEDS: SODIUM CHLORIDE 0.9% FLUSH 10 ML FLUSH IV FLUSH SCH ×2 (08:57→22:21)
[2016-06-05] MEDS: MULTIVITAMIN/IRON DROPS (FE=10 MG/ML) 50 ML BTL PO SCH (08:57)
[2016-06-05] MEDS: LACTULOSE SYRUP 20 GM/30 ML CUP PO SCH ×2 (08:57→22:20)
[2016-06-05] MEDS: INSULIN DETEMIR 100 UNITS/ML VIAL SQ SCH ×2 (08:57→22:20)
[2016-06-05] MEDS: PANTOPRAZOLE SOD 40 MG DELAYED RELEASE TAB PO SCH ×2 (08:57→22:20)
[2016-06-05] MEDS: BUMETANIDE 1 MG TAB PO SCH (08:57)
[2016-06-05] MEDS: NYSTATIN 100,000 U/GM PWD 15 GM BTL TOPICAL SCH ×2 (08:57→22:23)
[2016-06-05] MEDS: SODIUM CHLORIDE 0.9% FLUSH 10 ML FLUSH IVF SCH (08:58)
[2016-06-05] MEDS: RESP: ALBUTEROL 2.5 MG/3 ML NEB (PRN) NEB ×2 (09:19→20:39)
--- NOTE | 2016-06-05 10:05 | HHI.FPPN ---
Subjective Remarks Pt seen and examined this morning. No acute events overnight. AFVSS. Pt with desaturation to 88 when taken off oxygen. He feels short of breath, but feels that oxygen is helping. Pt denies chest pain, abdominal pain, lower extremity pain. He is speaking using a louder voice and answers questions appropriately. (Hu Flood MD R2) Objective Vitals Vital Signs Date Time Temp Pulse Resp B/P Pulse Ox O2 Delivery O2 Flow Rate FiO2 06/05/16 09:21 88 Nasal Cannula 21 06/05/16 05:22 98.1 75 18 131/60 97 06/05/16 00:15 98.3 77 18 133/62 95 06/04/16 20:45 98.2 75 20 135/62 98 06/04/16 20:30 77 06/04/16 20:24 96 Nasal Cannula 3.00 06/04/16 16:00 98.3 75 18 120/59 96 06/04/16 12:00 98.1 83 18 107/53 97 I/O 06/04/16 06/04/16 06/04/16 06/05/16 06/05/16 06/05/16 07:00 15:00 23:00 07:00 15:00 23:00 Intake Total 480 ml 960 ml Balance 480 ml 960 ml Intake Oral 480 ml 960 ml # Voids 2 3 1 # Bowel Movements 1 1 1 (Hu Flood MD R2) Result Diagram: 06/03/16 0608 06/05/16 0731 Objective Remarks GEN: Patient is a 66-year-old male lying in bed in [facility]. CV: Regular rate and irregular rhythm with 2/6 systolic murmur. LUNGS: Coarse breath sounds BL anteriorly without CRW, improved from prior exams. ABD: Soft, nondistended with positive bowel sounds. No masses appreciated. EXT: Significantly improved edema of hands and lower extremities. No calf tenderness BL. NEURO/PSYCH: AAOx3. Patient with soft speech likely secondary to intubation. Language normal and appropriate. (Hu Flood MD R2) Date of Insertion: May 18, 2016 Date of Removal: May 29, 2016 Line: Central Venous Catheter Side: Right Location: Internal, Jugular (uH Flood MD R2) A/P Assessment and Plan 65 y/o male with history of DM and osteomyelitis presented with left leg pain as well as GI bleed, diabetes mellitus who was dmitted for anemia, JOSE and left knee pain. Discharge Planning Anticipate discharge to [facility] tomorrow, pending downtrending Sodium. WDW: Dr. Dill (Hu Flood MD R2) Attending Attestation Patient examined and case discussed with resident physician I have read the above note and agree with the assessment/plan as discussed with me I was involved in all medical decision making for this patient Enrico Dill M.D. (Enrico Dill MD) Problem List: (1) Decreased oral intake Status: Acute Plan: Patient with Oral intake of 960mL on 06/05/16, improving, currently not on IV fluids. Intake of 960 mL recorded for today with improving hypernatremia Continue to monitor oral intake. (2) Acute encephalopathy Status: Acute Plan: Improved, Pt currently awake and alert. Pt with Baseline dementia and speaks with a soft voice likely secondary to intubation. Unclear etiology. DDx: delirium, alcohol withdrawal, metabolic encephalopathy, uremia Ammonia level elevated to 57 on 05/24, given low dose lactulose Patient agitated on 05/30, resolved with Ativan administration. Consider Haldol if there is further agitation. -Critical care consulted, have currently signed off -Pt intubated 05/17-05/28 due to lethargy and airway protection Abx: Rocephin 1 g IV qd (05/19 - 05/28) Imaging: Head CT 05/29: No Acute Disease (3) OJSE (acute kidney injury) Status: Acute Plan: Ddx includes pre-renal (dehydration/hypovolemia) vs renal (ATN). Concern for underlying CKD. Associated with decreased eating and drinking prior to presentation. Baseline Cr is 0.83 from 2 years ago, admission Cr is 5.38. Pre- sedation confusion likely due to uremia. -Renal function stable today. JOSE likely due to hypotension vs IV contrast for arterial embolization for evaluation fo GI bleed. -Strict I/Os -Monitor patient's hypernatremia Nephrology consulted: appreciate recommendations * Bumex 1mg IV Daily, transitioned to PO * Monitor fluid status and electrolytes closely * Renal function stable * Avoid nephrotoxic agents Imaging: * Renal US: Kidneys unremarkable. Finding suggesting cirrhosis and portal venous HTN with varices and recanalized paraumbilical vein. (4) Anemia Status: Acute Plan: No history of ulcers or blood thinners. Has some recent NSAID use and history of alcohol abuse. DDx: gastric/duodenal ulcer, esophageal varices, diverticulosis, colorectal cancer, polyps, IBD, hemorrhoids.H/H on admission was 6.8/20.6. Admission BUN/Cr ratio 19, suggestive of upper GI bleed and /or dehydration. S/p transfusion on 05/19 due to hemoglobin remaining low at 7.4 Echo: EF 45-50%, mild MR, mild TR -Hemoccult from 06/03 negative -Hemoccult in ED positive. -H&H monitored; Transfuse as needed GI consulted: appreciate recommendations * s/p EGD 05/16 - Large clots in fundus, non-bleeding ulcer in duodenal bulb. Normal esophagus * Repeat EGD 05/18 - duodenal ulcers with visible vessels, cauterized -s/p arteriogram with coli and embolization of right gastric and GDA (05/18 ) * Repeat EGD 05/22 - large duodenal ulcers with no active bleeding * Liver serologies negative * Signed off Gen surgery consulted-appreciate recs: Do not recommend surgery, operative mortality approaching 100% Medications: * Protonix 40mg PO BID * Hold all anticoagulation (Coumadin, Plavix, Aspirin) (5) Atrial fibrillation Status: Acute Plan: Pt developed Afib with RVR. No history of Afib per patient. S/p cardizem infusion 05/17. Holding chemo ppx due to GI bleed -Amiodarone 400mg po Q12hrs -Continue to monitor tele, heart rate (6) Diabetes mellitus Status: Acute Plan: Hold home metformin and glipizide. A1c of 6.1, could be falsely low due to blood loss anemia. -Low-dose sliding scale -Levemir decreased to 5 units BID -Continue to monitor, adjust as needed (7) Cirrhosis Status: Acute Plan: Significant alcohol history. Denies alcohol withdrawals. No seizures in past. Cirrhosis seen on Renal US with evident of portal venous HTN with varices. Hepatitis panel negative. -See Ammonia above -Oral Rally pack (8) Asthma Status: Chronic Plan: -Albuterol PRN -Symbicort BID (9) Knee pain, acute Status: Acute Plan: Likely due to muscle tear and/or Santo cyst rupture contributing to pain and associated edema. -Ortho consulted: Appreciate recommendations. Does not look like septic joint because there is no significant effusion. -S/p antibiotics (Vanc 05/14-; Linezolid 05/15-05/16; Cefepime 05/14-05/16) ( Rocephin 05/19-05/28) -Pain control with Tylenol PO -Would benefit from PT once acute pain and mental status improves. Imaging: * MRI: Prominent edema in the medial calf with prominent fluid signal between the medial gastrocnemius and soleus muscles. DDX is ruptured Santo cyst versus muscle strain. Small joint effusion. No evidence of osteomyelitis. * LE ultrasound: No evidence of DVT. Elongated fluid in the proximal to mid left calf. DDX is muscle tear versus dissecting Santo cyst. 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 * Left knee XR: Negative for fracture or dislocation (10) FEN Status: Acute Plan: Fluids: None, will heplock iv and get pt to drink, monitor fluid status closely. Consider restarting as pt with decreased PO intake. Electrolytes: Potassium within normal limits. Sodium elevated to 150, downtrending. Nutrition: Diabetic diet, mechanical soft with honey consistency DVT ppx: SCDs/TEDs, chemoprophylaxis contraindicated due to GI bleed GI ppx: Protonix PT/OT/ST consulting (Hu Flood MD R2) Problem Qualifiers (1) Anemia: Qualified Code: D64.9 - Anemia, unspecified type (2) Atrial fibrillation: Qualified Code: I48.0 - Paroxysmal atrial fibrillation (3) Diabetes mellitus: Qualified Code: E11.8 - Type 2 diabetes mellitus with complication, without long-term current use of insulin (4) Cirrhosis: Qualified Code: K74.60 - Cirrhosis of liver without ascites, unspecified hepatic cirrhosis type (5) Asthma: Qualified Code: J45.909 - Uncomplicated asthma, unspecified asthma severity (6) Knee pain, acute: Qualified Code: M25.562 - Acute pain of left knee Hu Flood MD R2 Jun 05, 2016 10:05 Enrico Dill MD Jun 05, 2016 16:14
[2016-06-05] MEDS: AMIODARONE 200 MG TAB PO SCH ×2 (11:54→22:23)
[2016-06-05] MEDS ORDERED: LEVEMIR SQ (13:38)
[2016-06-05] MEDS ORDERED: SYMB80AE INH (13:38)
[2016-06-05] MEDS ORDERED: POLYDRO3 PO (13:38)
[2016-06-05] MEDS ORDERED: LACT10SO PO (13:38)
[2016-06-05] MEDS ORDERED: BUME1TAB PO (13:38)
[2016-06-05] MEDS ORDERED: VITA100T2 PO (13:38)
[2016-06-05] MEDS ORDERED: NYST10007 TOPICAL (13:38)
[2016-06-05] MEDS ORDERED: AMIO200T PO (13:38)
[2016-06-05] MEDS ORDERED: ACET325T PO (13:38)
[2016-06-05] MEDS ORDERED: PANT40TA3 PO (13:38)
[2016-06-05] MEDS ORDERED: ALBU0.08 NEB (13:38)
[2016-06-06] VITALS (8 sets, daily range): BP systolic 133–151; BP diastolic 66–76; PULSE 75–82; RESP 18–22; TEMP 97.5–98.4; O2SAT 95–97
[2016-06-06] MEDS: INSULIN NovoLIN REGULAR SUPPLEMENTAL SCALE SQ SCH ×3 (02:45→14:53)
[2016-06-06 07:09] LABS: HEMATOCRIT 23.1 % (39.0-51.0); MEAN CELL VOLUME 90.7 FL (80.0-100.0); MEAN CORPUSCULAR HEMOGLOBIN 30.1 PG (27.0-34.0); MEAN CORPUSCULAR HGB CONC 33.2 % (32.0-36.0); PLATELET COUNT 77 TH/MM3 (150-450); RED BLOOD COUNT 2.55 MIL/MM3 (4.50-5.90); RED CELL DISTRIBUTION WIDTH 19.8 % (11.6-17.2); WHITE BLOOD COUNT 6.5 TH/MM3 (4.0-11.0)
[2016-06-06 07:17] LABS: REVIEW FLAG FINAL
[2016-06-06 07:42] LABS: BICARBONATE 30.8 MEQ/L (21.0-32.0); POTASSIUM 3.5 MEQ/L (3.5-5.1)
[2016-06-06] MEDS: RESP: ALBUTEROL 2.5 MG/3 ML NEB (PRN) NEB ×2 (08:20→16:14)
[2016-06-06] MEDS: LACTULOSE SYRUP 20 GM/30 ML CUP PO SCH (09:50)
[2016-06-06] MEDS: PANTOPRAZOLE SOD 40 MG DELAYED RELEASE TAB PO SCH (09:50)
[2016-06-06] MEDS: THIAMINE HCL 100 MG TAB PO SCH (09:50)
[2016-06-06] MEDS: BUMETANIDE 1 MG TAB PO SCH (09:50)
[2016-06-06] MEDS: SODIUM CHLORIDE 0.9% FLUSH 10 ML FLUSH IV FLUSH SCH (09:51)
[2016-06-06] MEDS: NYSTATIN 100,000 U/GM PWD 15 GM BTL TOPICAL SCH (09:51)
[2016-06-06] MEDS: INSULIN DETEMIR 100 UNITS/ML VIAL SQ SCH (09:51)
[2016-06-06] MEDS: BUDESONIDE-FORMOTEROL 80/4.5 MCG INHALER INH SCH (09:51)
[2016-06-06] MEDS: SODIUM CHLORIDE 0.9% FLUSH 10 ML FLUSH IVF SCH (09:51)
[2016-06-06] MEDS: CHLORHEXIDINE 0.12% (ORAL KIT) 15 ML CUP MT SCH (09:51)
[2016-06-06] MEDS: MULTIVITAMIN/IRON DROPS (FE=10 MG/ML) 50 ML BTL PO SCH (10:01)
--- NOTE | 2016-06-06 10:48 | HHI.FPPN ---
Subjective Remarks Patient seen and examined this morning. No acute events overnight and vital signs within normal limits. Morning patient concerned about his voice as he still is required to whispered to communicate. He also endorses some breathing difficulty and states he has not received his breathing treatment yet this morning. Otherwise he has no complaints and denies any fevers, chills, shortness of breath, chest pain, NVD, abdominal pain, or calf tenderness. ( Oswaldo Real MD R1) Objective Vitals Vital Signs Date Time Temp Pulse Resp B/P Pulse Ox O2 Delivery O2 Flow Rate FiO2 06/06/16 10:28 96 Nasal Cannula 3.00 06/06/16 08:21 96 High Flow Nasal Cannula 3.00 06/06/16 08:00 97.5 81 22 151/72 96 06/06/16 05:16 97.9 82 18 133/76 97 06/05/16 20:54 98.5 89 18 133/72 97 06/05/16 20:40 98 Nasal Cannula 3.00 06/05/16 20:00 79 06/05/16 16:01 98.4 78 18 122/68 97 06/05/16 12:01 98.8 82 18 119/54 99 06/05/16 10:52 75 I/O 06/05/16 06/05/16 06/05/16 06/06/16 06/06/16 06/06/16 07:00 15:00 23:00 07:00 15:00 23:00 Intake Total 360 ml Balance 360 ml Intake Oral 360 ml # Voids 1 4 # Bowel Movements 1 1 (Oswaldo Real MD R1) Result Diagram: 06/06/16 0635 06/06/16 0635 Objective Remarks GEN: Patient is a 66-year-old male lying in bed in [facility]. CV: Regular rate and irregular rhythm with 2/6 systolic murmur. LUNGS: Coarse breath sounds BL anteriorly with very mild expiratory wheezing. ABD: Soft, nondistended with positive bowel sounds. No masses appreciated. EXT: Significantly improved edema of hands and lower extremities. No calf tenderness BL. NEURO/PSYCH: AAOx3. Patient with soft speech likely secondary to intubation. Language normal and appropriate. (Oswaldo Real MD R1) Date of Insertion: May 18, 2016 Date of Removal: May 29, 2016 Line: Central Venous Catheter Side: Right Location: Internal, Jugular (Oswaldo Real MD R1) A/P Assessment and Plan 65 y/o male with history of DM and osteomyelitis presented with left leg pain as well as GI bleed, diabetes mellitus who was dmitted for anemia, JOSE and left knee pain. Discharge Planning Anticipate discharge to [facility] today as his sodium continues to down trend. WDW: Dr. Dill (Oswaldo Real MD R1) Attending Attestation Patient examined and case discussed with resident physician I have read the above note and agree with the assessment/plan as discussed with me I was involved in all medical decision making for this patient Enrico Dill M.D. (Enrico Dill MD) Problem List: (1) Decreased oral intake Status: Acute Plan: Patient with Oral intake of 960mL on 06/05/16, improving, currently not on IV fluids. Intake of 360 mL recorded, however likely not recorded correctly as patient continues to have downtrending sodium with appropriate voiding and stooling. Continue to monitor oral intake. (2) Acute encephalopathy Status: Acute Plan: Improved, Pt currently awake and alert. Pt with Baseline dementia and speaks with a soft voice likely secondary to intubation. Unclear etiology. DDx: delirium, alcohol withdrawal, metabolic encephalopathy, uremia Ammonia level elevated to 57 on 05/24 and 43 on 06/06. Currently on lactulose twice a day. Patient agitated on 05/30, resolved with Ativan administration. Consider Haldol if there is further agitation. -Critical care consulted, have currently signed off -Pt intubated 05/17-05/28 due to lethargy and airway protection Abx: Rocephin 1 g IV qd (05/19 - 05/28) Imaging: Head CT 05/29: No Acute Disease (3) JOSE (acute kidney injury) Status: Acute Plan: Ddx includes pre-renal (dehydration/hypovolemia) vs renal (ATN). Concern for underlying CKD. Associated with decreased eating and drinking prior to presentation. Baseline Cr is 0.83 from 2 years ago, admission Cr is 5.38. Pre- sedation confusion likely due to uremia. -Renal function stable today. JOSE likely due to hypotension vs IV contrast for arterial embolization for evaluation fo GI bleed. -Strict I/Os -Patient's hypernatremia continues to down trend Nephrology consulted: appreciate recommendations * Bumex 1mg IV Daily, transitioned to PO * Monitor fluid status and electrolytes closely * Renal function stable * Avoid nephrotoxic agents Imaging: * Renal US: Kidneys unremarkable. Finding suggesting cirrhosis and portal venous HTN with varices and recanalized paraumbilical vein. (4) Anemia Status: Acute Plan: No history of ulcers or blood thinners. Has some recent NSAID use and history of alcohol abuse. DDx: gastric/duodenal ulcer, esophageal varices, diverticulosis, colorectal cancer, polyps, IBD, hemorrhoids.H/H on admission was 6.8/20.6. Admission BUN/Cr ratio 19, suggestive of upper GI bleed and /or dehydration. S/p transfusion on 05/19 due to hemoglobin remaining low at 7.4 Echo: EF 45-50%, mild MR, mild TR -Hemoccult from 06/03 negative -Hemoccult in ED positive. -H&H monitored; Transfuse as needed GI consulted: appreciate recommendations * s/p EGD 05/16 - Large clots in fundus, non-bleeding ulcer in duodenal bulb. Normal esophagus * Repeat EGD 05/18 - duodenal ulcers with visible vessels, cauterized -s/p arteriogram with coli and embolization of right gastric and GDA (05/18 ) * Repeat EGD 05/22 - large duodenal ulcers with no active bleeding * Liver serologies negative * Signed off Gen surgery consulted-appreciate recs: Do not recommend surgery, operative mortality approaching 100% Medications: * Protonix 40mg PO BID * Hold all anticoagulation (Coumadin, Plavix, Aspirin) (5) Atrial fibrillation Status: Acute Plan: Pt developed Afib with RVR. No history of Afib per patient. S/p cardizem infusion 05/17. Holding chemo ppx due to GI bleed -Amiodarone 400mg po Q12hrs -Continue to monitor tele, heart rate (6) Diabetes mellitus Status: Acute Plan: Hold home metformin and glipizide. A1c of 6.1, could be falsely low due to blood loss anemia. -Low-dose sliding scale -Levemir decreased to 5 units BID -Continue to monitor, adjust as needed (7) Cirrhosis Status: Acute Plan: Significant alcohol history. Denies alcohol withdrawals. No seizures in past. Cirrhosis seen on Renal US with evident of portal venous HTN with varices. Hepatitis panel negative. -See Ammonia above -Oral Rally pack (8) Asthma Status: Chronic Plan: -Albuterol PRN -Symbicort BID (9) Knee pain, acute Status: Acute Plan: Likely due to muscle tear and/or Santo cyst rupture contributing to pain and associated edema. -Ortho consulted: Appreciate recommendations. Does not look like septic joint because there is no significant effusion. -S/p antibiotics (Vanc 05/14-; Linezolid 05/15-05/16; Cefepime 05/14-05/16) ( Rocephin 05/19-05/28) -Pain control with Tylenol PO Imaging: * MRI: Prominent edema in the medial calf with prominent fluid signal between the medial gastrocnemius and soleus muscles. DDX is ruptured Santo cyst versus muscle strain. Small joint effusion. No evidence of osteomyelitis. * LE ultrasound: No evidence of DVT. Elongated fluid in the proximal to mid left calf. DDX is muscle tear versus dissecting Santo cyst. 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 * Left knee XR: Negative for fracture or dislocation (10) FEN Status: Acute Plan: Fluids: None, will heplock iv and get pt to drink, monitor fluid status closely. Consider restarting as pt with decreased PO intake. Electrolytes: Potassium within normal limits. Sodium elevated to 147, downtrending. Nutrition: Diabetic diet, mechanical soft with honey consistency DVT ppx: SCDs/TEDs, chemoprophylaxis contraindicated due to GI bleed/anemia GI ppx: Protonix PT/OT/ST consulting (Oswaldo Real MD R1) Problem Qualifiers (1) Anemia: Qualified Code: D64.9 - Anemia, unspecified type (2) Atrial fibrillation: Qualified Code: I48.0 - Paroxysmal atrial fibrillation (3) Diabetes mellitus: Qualified Code: E11.8 - Type 2 diabetes mellitus with complication, without long-term current use of insulin (4) Cirrhosis: Qualified Code: K74.60 - Cirrhosis of liver without ascites, unspecified hepatic cirrhosis type (5) Asthma: Qualified Code: J45.909 - Uncomplicated asthma, unspecified asthma severity (6) Knee pain, acute: Qualified Code: M25.562 - Acute pain of left knee Oswaldo Real MD R1 Jun 06, 2016 10:48 Enrico Dill MD Jun 06, 2016 16:50
[2016-06-06 13:38] LABS: HEMATOCRIT 24.4 % (39.0-51.0)
[2016-06-06] MEDS: AMIODARONE 200 MG TAB PO SCH (14:52)
--- NOTE | 2016-06-06 15:14 | HHI.DCPOC ---
Discharge Care Plan Diagnosis: (1) Encephalopathy (2) Hypernatriuria (3) Decreased oral intake (4) GI bleed (5) Cirrhosis Goals to Promote Your Health * To prevent worsening of your condition and complications * To maintain your health at the optimal level Directions to Meet Your Goals Take your medications as prescribed Follow your dietary instruction Follow activity as directed Keep your appointments as scheduled Take your immunizations and boosters as scheduled If your symptoms worsen call your PCP, if no PCP go to Urgent Care Center or Emergency Room Smoking is Dangerous to Your Health. Avoid second hand smoke Call the 24-hour hour crisis hotline for domestic abuse at Oswaldo Real MD R1 Jun 06, 2016 15:14
--- NOTE | 2016-06-06 16:09 | HHI.DS ---
Discharge Summary Admission Date May 14, 2016 at 17:14 Discharge Date: Jun 06, 2016 Admitting Diagnosis renal failure, anemia, sepsis (1) Decreased oral intake Diagnosis: Principal Plan: Patient with Oral intake of 960mL on 06/05/16, improving, currently not on IV fluids. Intake of 360 mL recorded, however likely not recorded correctly as patient continues to have downtrending sodium with appropriate voiding and stooling. Continue to monitor oral intake. (2) Acute encephalopathy Diagnosis: Principal Plan: Improved, Pt currently awake and alert. Pt with Baseline dementia and speaks with a soft voice likely secondary to intubation. Unclear etiology. DDx: delirium, alcohol withdrawal, metabolic encephalopathy, uremia Ammonia level elevated to 57 on 05/24 and 43 on 06/06. Currently on lactulose twice a day. Patient agitated on 05/30, resolved with Ativan administration. Consider Haldol if there is further agitation. -Critical care consulted, have currently signed off -Pt intubated 05/17-05/28 due to lethargy and airway protection Abx: Rocephin 1 g IV qd (05/19 - 05/28) Imaging: Head CT 05/29: No Acute Disease (3) JOSE (acute kidney injury) Diagnosis: Principal Plan: Ddx includes pre-renal (dehydration/hypovolemia) vs renal (ATN). Concern for underlying CKD. Associated with decreased eating and drinking prior to presentation. Baseline Cr is 0.83 from 2 years ago, admission Cr is 5.38. Pre- sedation confusion likely due to uremia. -Renal function stable today. JOSE likely due to hypotension vs IV contrast for arterial embolization for evaluation fo GI bleed. -Strict I/Os -Patient's hypernatremia continues to down trend Nephrology consulted: appreciate recommendations * Bumex 1mg IV Daily, transitioned to PO * Monitor fluid status and electrolytes closely * Renal function stable * Avoid nephrotoxic agents Imaging: * Renal US: Kidneys unremarkable. Finding suggesting cirrhosis and portal venous HTN with varices and recanalized paraumbilical vein. (4) Anemia Diagnosis: Principal Plan: No history of ulcers or blood thinners. Has some recent NSAID use and history of alcohol abuse. DDx: gastric/duodenal ulcer, esophageal varices, diverticulosis, colorectal cancer, polyps, IBD, hemorrhoids.H/H on admission was 6.8/20.6. Admission BUN/Cr ratio 19, suggestive of upper GI bleed and /or dehydration. S/p transfusion on 05/19 due to hemoglobin remaining low at 7.4 Echo: EF 45-50%, mild MR, mild TR -Hemoccult from 06/03 negative -Hemoccult in ED positive. -H&H monitored; Transfuse as needed GI consulted: appreciate recommendations * s/p EGD 05/16 - Large clots in fundus, non-bleeding ulcer in duodenal bulb. Normal esophagus * Repeat EGD 05/18 - duodenal ulcers with visible vessels, cauterized -s/p arteriogram with coli and embolization of right gastric and GDA (05/18 ) * Repeat EGD 05/22 - large duodenal ulcers with no active bleeding * Liver serologies negative * Signed off Gen surgery consulted-appreciate recs: Do not recommend surgery, operative mortality approaching 100% Medications: * Protonix 40mg PO BID * Hold all anticoagulation (Coumadin, Plavix, Aspirin) (5) Atrial fibrillation Diagnosis: Secondary Plan: Pt developed Afib with RVR. No history of Afib per patient. S/p cardizem infusion 05/17. Holding chemo ppx due to GI bleed -Amiodarone 400mg po Q12hrs -Continue to monitor tele, heart rate (6) Diabetes mellitus Diagnosis: Secondary Plan: Hold home metformin and glipizide. A1c of 6.1, could be falsely low due to blood loss anemia. -Low-dose sliding scale -Levemir decreased to 5 units BID -Continue to monitor, adjust as needed (7) Cirrhosis Diagnosis: Secondary Plan: Significant alcohol history. Denies alcohol withdrawals. No seizures in past. Cirrhosis seen on Renal US with evident of portal venous HTN with varices. Hepatitis panel negative. -See Ammonia above -Oral Rally pack (8) Asthma Diagnosis: Secondary Plan: -Albuterol PRN -Symbicort BID (9) Knee pain, acute Diagnosis: Principal Plan: Likely due to muscle tear and/or Santo cyst rupture contributing to pain and associated edema. -Ortho consulted: Appreciate recommendations. Does not look like septic joint because there is no significant effusion. -S/p antibiotics (Vanc 05/14-; Linezolid 05/15-05/16; Cefepime 05/14-05/16) ( Rocephin 05/19-05/28) -Pain control with Tylenol PO Imaging: * MRI: Prominent edema in the medial calf with prominent fluid signal between the medial gastrocnemius and soleus muscles. DDX is ruptured Santo cyst versus muscle strain. Small joint effusion. No evidence of osteomyelitis. * LE ultrasound: No evidence of DVT. Elongated fluid in the proximal to mid left calf. DDX is muscle tear versus dissecting Santo cyst. 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 * Left knee XR: Negative for fracture or dislocation (10) FEN Diagnosis: Principal Plan: Fluids: None, will heplock iv and get pt to drink, monitor fluid status closely. Consider restarting as pt with decreased PO intake. Electrolytes: Potassium within normal limits. Sodium elevated to 147, downtrending. Nutrition: Diabetic diet, mechanical soft with honey consistency DVT ppx: SCDs/TEDs, chemoprophylaxis contraindicated due to GI bleed/anemia GI ppx: Protonix PT/OT/ST consulting Brief History 65 y/o male with history of DM and osteomyelitis presents with left knee pain. Pt is a poor historian. Pt's nephew provides some of the history. Pain in the left knee, started last Saturday. No injury/trauma. Denies any redness/swelling. No recent illness. Denies fever/chills. Nephew states that he had taken a nap in an uncomfortable position and the next day the pain started and couldn't get out of bed. He was brought to the [facility] ED due to fever and a warm knee. THey diagnosed him with possible septic arthritis and prescribed ibuprofen and Clindamycin, which he has been taking. Pt also complains of stomach pain. Epigastric area, comes and goes. No diarrhea/ constipation. Denies any blood in stool, black stools. Last bowel movement was 1 week ago. Family states he has decreased appetite. Hasn't been drinking much. No history of ulcers, never had colonoscopy. No pain like this previously. Is from out of town and is staying with his nephew. CBC/BMP: 06/06/16 1320 06/06/16 0635 Significant Findings Laboratory Tests Test 06/04/16 06/05/16 06/06/16 06/06/16 06:40 07:31 06:35 13:20 Sodium Level 152 MEQ/L 150 MEQ/L 147 MEQ/L (136-145) (136-145) (136-145) Chloride Level 116 MEQ/L 114 MEQ/L 112 MEQ/L (98-107) (98-107) (98-107) Anion Gap 4 MEQ/L (5-15) 4 MEQ/L (5-15) Blood Urea Nitrogen 39 MG/DL (7-18) 35 MG/DL (7-18) 33 MG/DL (7-18) Creatinine 1.75 MG/DL 1.83 MG/DL 1.84 MG/DL (0.60-1.30) (0.60-1.30) (0.60-1.30) Estimat Glomerular Filtration 39 ML/MIN (>89) 37 ML/MIN (>89) 37 ML/MIN (>89) Rate Random Glucose 118 MG/DL 179 MG/DL 138 MG/DL (74-106) (74-106) (74-106) Calcium Level 7.8 MG/DL 7.5 MG/DL 7.8 MG/DL (8.5-10.1) (8.5-10.1) (8.5-10.1) Red Blood Count 2.55 MIL/MM3 (4.50-5.90) Hemoglobin 7.7 GM/DL 8.1 GM/DL (13.0-17.0) (13.0-17.0) Hematocrit 23.1 % 24.4 % (39.0-51.0) (39.0-51.0) Red Cell Distribution Width 19.8 % (11.6-17.2) Platelet Count 77 TH/MM3 (150-450) Ammonia 43 MCMOL/L (11-32) PE at Discharge GEN: Patient is a 66-year-old male lying in bed in [facility]. CV: Regular rate and irregular rhythm with 2/6 systolic murmur. LUNGS: Coarse breath sounds BL anteriorly with very mild expiratory wheezing. ABD: Soft, nondistended with positive bowel sounds. No masses appreciated. EXT: Significantly improved edema of hands and lower extremities. No calf tenderness BL. NEURO/PSYCH: AAOx3. Patient with soft speech likely secondary to intubation. Language normal and appropriate. Hospital Course Mr. Gonzalez is a 65-year-old male with history of DM, asthma, osteomyelitis who initially presented with left knee pain. He was recently seen in [facility] ED a couple of days before and diagnosed with possible septic arthritis and discharged with antibiotics. Since then he has not improved and has had worsening pain and increased oral intake. Regarding his knee pain, ESR was elevated at 140, CRP was 26.4, and patient had leukocytosis. There was not enough of effusion for arthrocentesis. X-ray was negative. Orthopedics was consulted, and an MRI was performed, which showed no osteomyelitis and possible ruptured Santo cyst. Patient's initial empiric antibiotics of Nasalide and cefepime were discontinued. Most notably, patient was found to have JOSE and anemia on admission. His admission creatinine was 5.38, with a baseline of 0.3 from 2 years ago. Fluids were started and nephrology was consulted to ordered serologies and start patient on bicarbonate. Renal ultrasound was unremarkable, but did show signs of cirrhosis. Renal function slowly improved as well as his hypernatremia throughout hospital course with IV/PO fluids and was stable at the time of discharge Regarding the patient's anemia, patient was found to have hemoglobin of 6.8 on admission. Hemoccult positive in ED. Patient was transferred 2 units of pRBC , yet patient's hemoglobin remained low and 2 more units were ordered. GI was called to take patient back for EGD and ordered liver workup. EGD on 05/16 demonstrated large clots in the fundus of the stomach and a large clot in the duodenum. Patient was transferred to the ICU at this point. They started the patient on Protonix drip and recommended repeat EGD in 2 days. The next day, patient developed worsening mental status and became lethargic. At this time, critical care was consulted. Patient was intubated, due to delirium and need for EGD the next day. Patient was also found to have atrial fibrillation with RVR and started on Cardizem drip. EGD was performed again on 05/18 and multiple ulcers were found in the duodenal bulb and second part of the duodenum, which were cauterized. The afternoon, patient started to bleed again and became hypotensive. He was started on levo fed and underwent arteriogram with coil embolization of the right gastric and GDA. Patient was transfused 16 units of RBC, 2 FFP, and 2 units of platelets during the admission. General surgery did not recommend any procedure and stated the operative mortality would be approaching 100%. The patient was extubated after successful CPAP trials. He was transitioned to PO amiodarone for control of his atrial fibrillation which remained under rate control. He was transferred out of the ICU and did well on the general medical floor. He participated in PT, OT, and ST. He was then discharged to [facility] for continued therapy and was advised to follow up with his PCP within 1 week with a BMP and CBC for further evaluation at his check up. Pt Condition on Discharge: Stable Discharge Disposition: Discharge to SNF Discharge Instructions DIET: Follow Instructions for: Diabetic Diet, Soft Diet Additional Diet Instructions: Diabetic diet, mechanical soft with honey consistency Activities you can perform: Regular-No Restrictions, See Additionl Instruction Other Activity Instructions: Patient is a fall risk and will need fall precautions. He is cleared to participate in PT, OT, and ST, but will need assistance otherwise. Follow up Referrals: PCP Follow-up - 1 Week SNF/FPC/HH with [facility] New Orders: BASIC METABOLIC PROF - 2-3 Days CBC NO DIFF - 1 Week New Medications: Acetaminophen (Acetaminophen) 325 Mg Tab 650 MG PO Q6HR PRN TEMP>101F, HEADACHE #30 TAB Albuterol Neb (Albuterol Neb) 2.5 Mg/3 Ml Neb 2.5 MG NEB Q2HR NEB PRN SHORTNESS OF BREATH Days 30 NEBULE Amiodarone (Amiodarone) 200 Mg Tab 400 MG PO Q12H #60 TAB Budesonide-Formoterol Inh (Symbicort Inh) 80-4.5 Mcg/Act Aero 2 PUFF INH BID Days 30 INHALER Bumetanide (Bumetanide) 1 Mg Tab 1 MG PO DAILY #30 TAB Insulin Detemir Inj (Levemir Inj) 1,000 unit/ 10 ML Vial 5 UNITS SQ Q12HR Days 30 INJECTION Lactulose Liq (Lactulose Liq) 10 Gm/15 Ml Soln 30 ML PO BID Days 30 ML Nystatin Topical (Nystop Topical) 100,000 Unit/Gm Powd 1 APPLIC TOPICAL Q12HR Days 30 UNIT Pantoprazole (Pantoprazole) 40 Mg Tab 40 MG PO Q12HR Days 30 TAB Pediatric Multiple Vitamins W/ (Poly--Sarah/Iron) 1 Frantz Frantz 1 ML PO DAILY Days 30 BOTTLE Thiamine (Vitamin B-1) 100 Mg Tab 100 MG PO DAILY #30 TAB Oswaldo Real MD R1 Jun 06, 2016 16:09
== END 2016-06-06 17:27 | DRG 377 ==
LOC: NEPA 15:03 → NEDA 17:14 → HOCB 20:12 → HIMN 05-16 14:24 → HIMW 05-16 15:12 → HCIS 05-31 09:48 → N04B 06-02 02:15
PROVIDERS: ADMIT Family Medicine; ATTEND Family Medicine
PROC: 0S9D3ZX Drainage of Left Knee Joint, Percutaneous Approach, Diagnostic (ICD-10-PCS; principal; 2016-05-14)
PROC: 30233N1 Transfusion of Nonautologous Red Blood Cells into Peripheral Vein, Percutaneous Approach (ICD-10-PCS; 2016-05-14)
PROC: 0DJ08ZZ Inspection of Upper Intestinal Tract, Via Natural or Artificial Opening Endoscopic (ICD-10-PCS; 2016-05-16)
PROC: 5A1955Z Respiratory Ventilation, Greater than 96 Consecutive Hours (ICD-10-PCS; 2016-05-17)
PROC: 0BH17EZ Insertion of Endotracheal Airway into Trachea, Via Natural or Artificial Opening (ICD-10-PCS; 2016-05-17)
PROC: 0CJS8ZZ Inspection of Larynx, Via Natural or Artificial Opening Endoscopic (ICD-10-PCS; 2016-05-17)
PROC: 0T9B70Z Drainage of Bladder with Drainage Device, Via Natural or Artificial Opening (ICD-10-PCS; 2016-05-17)
PROC: 04L23DZ Occlusion of Gastric Artery with Intraluminal Device, Percutaneous Approach (ICD-10-PCS; 2016-05-18)
PROC: 0W3P8ZZ Control Bleeding in Gastrointestinal Tract, Via Natural or Artificial Opening Endoscopic (ICD-10-PCS; 2016-05-18)
PROC: 30233K1 Transfusion of Nonautologous Frozen Plasma into Peripheral Vein, Percutaneous Approach (ICD-10-PCS; 2016-05-18)
PROC: 6A551Z2 Pheresis of Platelets, Multiple (ICD-10-PCS; 2016-05-18)
PROC: 05HM33Z Insertion of Infusion Device into Right Internal Jugular Vein, Percutaneous Approach (ICD-10-PCS; 2016-05-18)
PROC: 0DJ08ZZ Inspection of Upper Intestinal Tract, Via Natural or Artificial Opening Endoscopic (ICD-10-PCS; 2016-05-22)
DX: K26.4 Chronic or unspecified duodenal ulcer with hemorrhage (principal); G93.41 Metabolic encephalopathy; N17.9 Acute kidney failure, unspecified; Z99.11 Dependence on respirator [ventilator] status; E87.0 Hyperosmolality and hypernatremia; M00.9 Pyogenic arthritis, unspecified; K76.6 Portal hypertension; E87.2 Acidosis; D62 Acute posthemorrhagic anemia; E87.1 Hypo-osmolality and hyponatremia; M86.9 Osteomyelitis, unspecified; L03.116 Cellulitis of left lower limb; E11.69 Type 2 diabetes mellitus with other specified complication; E11.22 Type 2 diabetes mellitus with diabetic chronic kidney disease; D69.6 Thrombocytopenia, unspecified; R63.0 Anorexia; Z79.82 Long term (current) use of aspirin; J45.909 Unspecified asthma, uncomplicated; N18.9 Chronic kidney disease, unspecified; Z79.84 Long term (current) use of oral hypoglycemic drugs; Z87.891 Personal history of nicotine dependence; F10.20 Alcohol dependence, uncomplicated; E88.09 Other disorders of plasma-protein metabolism, not elsewhere classified; K74.60 Unspecified cirrhosis of liver; Z87.11 Personal history of peptic ulcer disease; R47.81 Slurred speech; I48.0 Paroxysmal atrial fibrillation; M22.42 Chondromalacia patellae, left knee; Z78.1 Physical restraint status; Z51.5 Encounter for palliative care; E87.6 Hypokalemia; E87.70 Fluid overload, unspecified; K29.80 Duodenitis without bleeding; M71.22 Synovial cyst of popliteal space [Baker], left knee; R13.13 Dysphagia, pharyngeal phase; I10 Essential (primary) hypertension; F03.90 Unspecified dementia, unspecified severity, without behavioral disturbance, psychotic disturbance, mood disturbance, and anxiety; R00.0 Tachycardia, unspecified; D53.9 Nutritional anemia, unspecified
CPT/HCPCS: 20610; 31500; 36247; 36430; 36556; 36600; 37244; 70450; 71010; 73560; 73564; 73721; 75726; 75774; 76775; 76937; 77001; 78278; 80048; 80053; 80069; 80074; 80076; 80202; 80307; 81001; 82040; 82103; 82105; 82140; 82272; 82306; 82390; 82728; 82784; 82805; 82947; 82948; 83036; 83520; 83540; 83550; 83605; 83690; 83735; 83883; 83970; 84100; 84132; 84155; 84165; 84484; 85007; 85014; 85018; 85025; 85027; 85384; 85610; 85652; 85730; 86021; 86038; 86140; 86160; 86256; 86334; 86803; 86850; 86900; 86901; 86920; 86927; 86965; 87040; 87070; 87086; 87205; 87340; 87641; 93005; 93306; 93970; 94003; 94150; 94640; 94664; 94667; 94668; 99283; A9560; C1760; C1769; C1887; C1894; C9113; G0269; J0131; J0171; J0282; J0690; J0692; J0696; J1100; J1205; J1815; J2020; J2060; J2354; J2370; J2405; J2597; J3010; J3370; J3411; J3480; J7030; J7040; J7050; J7060; J7070; J7120; J7613; P9016; P9017; P9035; Q9967

== ENCOUNTER 2016-06-20 14:30 | Inpatient (IN) | payer MEDICARE ==
[~2016-06-20] VITALS: Ht 167.6 cm; Wt 76.6 kg
[~2016-06-20 14:30] MED LIST changes: +ACET325T PO; +ALBU0.08 NEB; +AMIO200T PO; +BUME1TAB PO; +LACT10SO PO; +LEVEMIR SQ; +NYST10007 TOPICAL; +PANT40TA3 PO; +POLYDRO3 PO; +SYMB80AE INH; +VITA100T2 PO
[2016-06-20 14:37] VITALS: BP 135/59; PULSE 87; RESP 18; TEMP 99.5; O2SAT 96
--- NOTE | 2016-06-20 15:29 | PD ---
HPI Chief Complaint: Abnormal Results Time Seen by Provider: 14:37 Travel History International Travel<30 days: No Contact w/Intl Traveler<30days: No Traveled to known affect area: No History of Present Illness HPI This is a 66-year-old man who presents to the emergency department for abnormal labs. Patient was recently admitted for sepsis and acute kidney injury with anemia. He had multiple EGDs that reviewed duodenal ulcers. He had cauterization performed on the , as well as an arteriogram with embolization on 18 May. He was discharged to rehabilitation, and then to [facility] and rehabilitation. He was admitted to [facility] rehabilitation on June 06. They've been following his blood counts which is been in the mid 7 range, and then he had blood work drawn yesterday that showed a hemoglobin of 6.9 and so he was referred to the emergency department. History Past Medical History Narrative Medical A. fib Diabetes Cirrhosis Duodenal ulcers and GI bleed Treatment for osteomyelitis Tetanus Vaccination: < 5 Years Influenza Vaccination: Yes Social History Alcohol Use: Yes (2-6 beers daily) Tobacco Use: No Allergies-Medications (Allergen,Severity, Reaction): Coded Allergies: No Known Allergies (Unverified , 06/20/16) Reported Meds & Prescriptions Reported Meds & Active Scripts Active Poly--Sarah/Iron (Pediatric Multiple Vitamins W/) 1 Frantz Frantz 1 Ml PO DAILY 30 Days Vitamin B-1 (Thiamine HCl) 100 Mg Tab 100 Mg PO DAILY Pantoprazole (Pantoprazole Sodium) 40 Mg Tab 40 Mg PO Q12HR 30 Days Nystop Topical (Nystatin Topical) 100,000 Unit/Gm Powd 1 Applic TOPICAL Q12HR 30 Days Lactulose Liq (Lactulose) 10 Gm/15 Ml Soln 30 Ml PO BID 30 Days Levemir Inj (Insulin Detemir) 1,000 unit/ 10 ML Vial 5 Units SQ Q12HR 30 Days Bumetanide 1 Mg Tab 1 Mg PO DAILY Symbicort Inh (Budesonide/Formoterol Fumarate) 80-4.5 Mcg/Act Aero 2 Puff INH BID 30 Days Amiodarone (Amiodarone HCl) 200 Mg Tab 400 Mg PO Q12H Albuterol Neb (Albuterol Sulfate) 2.5 Mg/3 Ml Neb 2.5 Mg NEB Q2HR NEB PRN 30 Days Acetaminophen 325 Mg Tab 650 Mg PO Q6HR PRN Ibuprofen 800 Mg Tab 800 Mg PO TID Cleocin (Clindamycin HCl) 150 Mg Cap 450 Mg PO Q6H 7 Days Reported Advair Diskus Inh (Fluticasone-Salmeterol Inh) 100-50 Mcg/Blist Aer 1 Puff INH BID Rinse mouth after use. Ventolin Hfa 18 GM Inh (Albuterol Sulfate) 90 Mcg/Act Aer 2 Puff INH Q4-6H PRN Metformin (Metformin HCl) 500 Mg Tab 500 Mg PO DIRECTED With meals Magnesium Oxide 400 Mg Tab 400 Mg PO BID Glipizide 5 Mg Tab 5 Mg PO DAILY Take 30 minutes before a meal Aspirin Low Dose (Aspirin) 81 Mg Chew 81 Mg CHEW DAILY Review of Systems Except as stated in HPI: all other systems reviewed are Neg Physical Exam Narrative GENERAL: Chronically ill-appearing 66 year-old man, little bit pale, no acute distress. SKIN: Focused skin assessment warm/dry. HEAD: Atraumatic. Normocephalic. EYES: Pupils equal and round. No scleral icterus. No injection or drainage. ENT: No nasal bleeding or discharge. Mucous membranes pink and moist. NECK: Trachea midline. No JVD. CARDIOVASCULAR: Regular rate and rhythm. No murmur appreciated. RESPIRATORY: No accessory muscle use. Clear to auscultation. Breath sounds equal bilaterally. GASTROINTESTINAL: Abdomen soft, non-tender, nondistended. Hepatic and splenic margins not palpable. RECTAL: Dark stools. Guaiac positive. MUSCULOSKELETAL: No obvious deformities. Maybe a little bit of some minimal swelling in the left knee. Is not obviously red or inflamed. Appears to move it normally. NEUROLOGICAL: Patient appears confused, somewhat decreased alertness. No obvious cranial nerve deficits. Motor grossly within normal limits. Normal speech. Data Data Last Documented VS Vital Signs Date Time Temp Pulse Resp B/P Pulse Ox O2 Delivery O2 Flow Rate FiO2 06/20/16 14:37 99.5 87 18 135/59 96 Orders Complete Blood Count With Diff (06/20/16 14:39) Comprehensive Metabolic Panel (06/20/16 14:39) Act Partial Throm Time (Ptt) (06/20/16 14:39) Prothrombin Time / Inr (Pt) (06/20/16 14:39) Iv Access Insert/Monitor (06/20/16 14:39) Type And Screen (06/20/16 14:47) MDM Medical Decision Making Medical Screen Exam Complete: Yes Emergency Medical Condition: Yes Differential Diagnosis Anemia, GI bleed, weakness, other Narrative Course medical decision making INITIAL: 66-year-old man who presents emergency Department with decreased hemoglobin, history of peptic ulcer disease, trending down. Review of his Hemoccult and shows he's been pretty steady in the mid sevens, was 6.9 yesterday. They also have a hemoglobin of 7.6 that was on our system as well. He is guaiac positive. He appears chronically ill. We'll recheck labs, likely admission for transfusion. Kumar Chapa MD June 20, 2016 15:29
[2016-06-20 15:45] VITALS: BP 117/55; PULSE 64; RESP 18; O2SAT 94
[2016-06-20 15:50] LABS: AUTOMATED NEUTROPHIL # 2.5 TH/MM3 (1.8-7.7); BASOPHIL % 0.5 % (0.0-2.0); EOSINOPHIL # 0.2 TH/MM3 (0-0.4); EOSINOPHIL % 5.8 % (0.0-4.0); LYMPH % 16.3 % (9.0-44.0); LYMPHOCYTE # 0.7 TH/MM3 (1.0-4.8); MEAN CELL VOLUME 88.8 FL (80.0-100.0); MEAN CORPUSCULAR HEMOGLOBIN 29.4 PG (27.0-34.0); MEAN CORPUSCULAR HGB CONC 33.1 % (32.0-36.0); MONO % 13.8 % (0.0-8.0); NEUT % 63.6 % (16.0-70.0); PLATELET COUNT 115 TH/MM3 (150-450); RED BLOOD COUNT 2.35 MIL/MM3 (4.50-5.90); RED CELL DISTRIBUTION WIDTH 18.4 % (11.6-17.2)
[2016-06-20 15:57] LABS: HEMO FLAGS DIFF FINAL
[2016-06-20 15:58] LABS: HEMATOCRIT 20.9 % (39.0-51.0)
[2016-06-20 16:02] LABS: CHLORIDE 98 MEQ/L (98-107); POTASSIUM 4.1 MEQ/L (3.5-5.1); SODIUM (NA) 136 MEQ/L (136-145)
[2016-06-20 16:05] LABS: ANION GAP 7 MEQ/L (5-15); BICARBONATE 31.3 MEQ/L (21.0-32.0)
[2016-06-20 16:06] LABS: APTT (PATIENT) 27.8 SEC (24.3-30.1); BLOOD UREA NITROGEN 21 MG/DL (7-18); INTERNATIONAL NORMALIZED RATIO 1.2 RATIO; PROTHROMBIN TIME - PATIENT 12.8 SEC (9.8-11.6)
[2016-06-20 16:08] LABS: ALT (GPT) 29 U/L (12-78)
[2016-06-20 16:09] LABS: AST (GOT) 31 U/L (15-37); GLOMERULAR FILTRATION RATE 32 ML/MIN (>89)
[2016-06-20 16:10] LABS: TOTAL BILIRUBIN ADULT 0.6 MG/DL (0.2-1.0)
[2016-06-20 16:11] LABS: ALKALINE PHOSPHATASE 176 U/L (45-117)
--- NOTE | 2016-06-20 16:41 | PD ---
Physical Exam Date Seen by Provider: June 20, 2016 Time Seen by Provider: 16:38 Narrative This 66-year-old male is transferred here because of a low blood count. He has recently been admitted to the hospital with GI bleed. He is also being treated for osteomyelitis of the knee. He has been anemic for a while but his hemoglobin today was lower than it previously been. His hemoglobin today is 6.9. He is Dr. Vasquez since yesterday. Dr. Justice reports that her guaiac is positive Data Data Last Documented VS Vital Signs Date Time Temp Pulse Resp B/P Pulse Ox O2 Delivery O2 Flow Rate FiO2 06/20/16 16:45 65 18 123/53 95 Nasal Cannula 2 06/20/16 14:37 99.5 Orders Complete Blood Count With Diff (06/20/16 14:39) Comprehensive Metabolic Panel (06/20/16 14:39) Act Partial Throm Time (Ptt) (06/20/16 14:39) Prothrombin Time / Inr (Pt) (06/20/16 14:39) Iv Access Insert/Monitor (06/20/16 14:39) Type And Screen (06/20/16 14:47) Red Blood Cells (Rbc) (06/20/16 16:36) Admit Order (Ed Use Only) (06/20/16 16:46) Labs Laboratory Tests Test 06/20/16 15:30 White Blood Count 4.0 TH/MM3 Red Blood Count 2.35 MIL/MM3 Hemoglobin 6.9 GM/DL Hematocrit 20.9 % Mean Corpuscular Volume 88.8 FL Mean Corpuscular Hemoglobin 29.4 PG Mean Corpuscular Hemoglobin 33.1 % Concent Red Cell Distribution Width 18.4 % Platelet Count 115 TH/MM3 Mean Platelet Volume 7.0 FL Neutrophils (%) (Auto) 63.6 % Lymphocytes (%) (Auto) 16.3 % Monocytes (%) (Auto) 13.8 % Eosinophils (%) (Auto) 5.8 % Basophils (%) (Auto) 0.5 % Neutrophils # (Auto) 2.5 TH/MM3 Lymphocytes # (Auto) 0.7 TH/MM3 Monocytes # (Auto) 0.6 TH/MM3 Eosinophils # (Auto) 0.2 TH/MM3 Basophils # (Auto) 0.0 TH/MM3 CBC Comment DIFF FINAL Differential Comment Prothrombin Time 12.8 SEC Prothromb Time International 1.2 RATIO Ratio Activated Partial 27.8 SEC Thromboplast Time Sodium Level 136 MEQ/L Potassium Level 4.1 MEQ/L Chloride Level 98 MEQ/L Carbon Dioxide Level 31.3 MEQ/L Anion Gap 7 MEQ/L Blood Urea Nitrogen 21 MG/DL Creatinine 2.10 MG/DL Estimat Glomerular Filtration 32 ML/MIN Rate Random Glucose 312 MG/DL Calcium Level 7.7 MG/DL Total Bilirubin 0.6 MG/DL Aspartate Amino Transf 31 U/L (AST/SGOT) Alanine Aminotransferase 29 U/L (ALT/SGPT) Alkaline Phosphatase 176 U/L Total Protein 6.9 GM/DL Albumin 1.4 GM/DL Blood Type A POSITIVE Antibody Screen NEGATIVE Crossmatch Leukocyte-Reduced Red Blood Cells Blood Bank Comment MDM Medical Record Reviewed: Yes Supervised Visit with TOMY: Yes Differential Diagnosis Differential includes anemia, GI bleed, renal insufficiency Narrative Course The patient has heme positive stool. His hemoglobin is 6.9. He will be admitted Diagnosis Primary Impression: Anemia Qualified Code: D50.9 - Iron deficiency anemia, unspecified iron deficiency anemia type Additional Impression: GI bleed Qualified Code: K26.4 - Gastrointestinal hemorrhage associated with duodenal ulcer Nicola Duran MD June 20, 2016 16:41
[2016-06-20] MEDS ORDERED: VANC1000P IV (16:44)
[2016-06-20] MEDS ORDERED: SYMB80AE INH (16:44)
[2016-06-20] MEDS ORDERED: LACTCAP8 PO (16:44)
[2016-06-20] MEDS ORDERED: TRAM50TA PO (16:44)
[2016-06-20] MEDS ORDERED: HUMALOG SQ (16:44)
[2016-06-20] MEDS ORDERED: HUMA50IN SQ (16:44)
[2016-06-20] MEDS ORDERED: DIFL100T PO (16:44)
[2016-06-20] MEDS ORDERED: POTA10CA PO (16:44)
[2016-06-20] MEDS ORDERED: CALC500C6 CHEW (16:44)
[2016-06-20 16:45] VITALS: BP 123/53; PULSE 65; RESP 18; O2SAT 95
--- NOTE | 2016-06-20 17:11 | HHI.HP ---
[facility] Service [facility] Primary [facility] Physician Non-Staff Admission Diagnosis GI BLEED, ANEMIA Diagnoses: (1) GI bleed (2) Normocytic anemia due to blood loss (3) Knee osteomyelitis, left (4) JOSE (acute kidney injury) (5) Cirrhosis (6) Atrial fibrillation (7) Diabetes mellitus Chief Complaint: Abnormal lab Travel History International Travel<30 Days: No Contact w/Intl Traveler <30 Da: No Traveled to Known Affected Are: No History of Present Illness 66 year-old male with a history of atrial fibrillation, multiple previous admission for GI bleed status post multiple panendoscopies is currently a resident at a local rehabilitation facility was brought to the ED today for evaluation of abnormal lab, as patient was found to have H&H 7.6/23.1 yesterday 06/19/16. Although patient is a very poor historian, he denies any GI bleed. In the emergency department H&H was 6.9/20.9 with a positive Hemoccult . Patient was recently discharged from hospital after undergoing treatment for sepsis as well as anemia for which she's had EGD performed that revealed duodenal ulcer status post catheterization/, embolization 05/18/16. Abnormal labs include as well BUN/creatinine 21/2.10. Patient is currently on IV vancomycin secondary to left knee osteomyelitis. Although he complained of tiredness, he denies any shortness of breath or chest pain. Review of Systems ROS Limitations: Poor Historian Other 12 systems reviewed and are negative except for the ones mentioned in the history of Present illness Past Family Social History Past Medical History A. fib Diabetes Cirrhosis Duodenal ulcers and GI bleed Treatment for osteomyelitis Past Surgical History Right great toe amputation 3 years ago due osteomyelitis Right lap knee Reported Medications Poly--Sarah/Iron (Pediatric Multiple Vitamins W/) 1 Frantz Frantz 1 Ml PO DAILY 30 Days Vitamin B-1 (Thiamine HCl) 100 Mg Tab 100 Mg PO DAILY Pantoprazole (Pantoprazole Sodium) 40 Mg Tab 40 Mg PO Q12HR 30 Days Nystop Topical (Nystatin Topical) 100,000 Unit/Gm Powd 1 Applic TOPICAL Q12HR 30 Days Lactulose Liq (Lactulose) 10 Gm/15 Ml Soln 30 Ml PO BID 30 Days Levemir Inj (Insulin Detemir) 1,000 unit/ 10 ML Vial 5 Units SQ Q12HR 30 Days Bumetanide 1 Mg Tab 1 Mg PO DAILY Symbicort Inh (Budesonide/Formoterol Fumarate) 80-4.5 Mcg/Act Aero 2 Puff INH BID 30 Days Amiodarone (Amiodarone HCl) 200 Mg Tab 400 Mg PO Q12H Albuterol Neb (Albuterol Sulfate) 2.5 Mg/3 Ml Neb 2.5 Mg NEB Q2HR NEB PRN 30 Days Acetaminophen 325 Mg Tab 650 Mg PO Q6HR PRN Ibuprofen 800 Mg Tab 800 Mg PO TID Cleocin (Clindamycin HCl) 150 Mg Cap 450 Mg PO Q6H 7 Days Advair Diskus Inh (Fluticasone-Salmeterol Inh) 100-50 Mcg/Blist Aer 1 Puff INH BID Rinse mouth after use. Ventolin Hfa 18 GM Inh (Albuterol Sulfate) 90 Mcg/Act Aer 2 Puff INH Q4-6H PRN Metformin (Metformin HCl) 500 Mg Tab 500 Mg PO DIRECTED With meals Magnesium Oxide 400 Mg Tab 400 Mg PO BID Glipizide 5 Mg Tab 5 Mg PO DAILY Take 30 minutes before a meal Aspirin Low Dose (Aspirin) 81 Mg Chew 81 Mg CHEW DAILY Allergies: Coded Allergies: No Known Allergies (Unverified , 06/20/16) Family History Brother-HD Social History Tobacco-smoked in the past Alcohol: 3-5 beers/day Illicit drug use-denies Physical Exam Vital Signs Vital Signs Date Time Temp Pulse Resp B/P Pulse Ox O2 Delivery O2 Flow Rate FiO2 06/20/16 14:37 99.5 87 18 135/59 96 Physical Exam GENERAL: This is a well-nourished, well-developed patient, in no apparent distress. SKIN: Sacral decubitus stage II HEAD: Atraumatic. Normocephalic. No temporal or scalp tenderness. EYES: Pupils equal round and reactive. Extraocular motions intact. No scleral icterus. No injection or drainage. ENT: Nose without bleeding, purulent drainage or septal hematoma. Throat without erythema, tonsillar hypertrophy or exudate. Uvula midline. Airway patent. NECK: Trachea midline. No JVD or lymphadenopathy. Supple, nontender, no meningeal signs. CARDIOVASCULAR: Regular rate and rhythm without murmurs, gallops, or rubs. RESPIRATORY: Clear to auscultation. Breath sounds equal bilaterally. No wheezes , rales, or rhonchi. GASTROINTESTINAL: Abdomen soft, non-tender, nondistended. No hepato-splenomegaly , or palpable masses. No guarding. MUSCULOSKELETAL: Extremities without clubbing, cyanosis, or edema. Left knee tender to palpation with decreased range of motion, warm to touch NEUROLOGICAL: Awake and alert. Cranial nerves II through XII intact. Motor and sensory grossly within normal limits. Five out of 5 muscle strength in all muscle groups. Normal speech. Laboratory Laboratory Tests Test 06/20/16 15:30 White Blood Count 4.0 Red Blood Count 2.35 Hemoglobin 6.9 Hematocrit 20.9 Mean Corpuscular Volume 88.8 Mean Corpuscular Hemoglobin 29.4 Mean Corpuscular Hemoglobin 33.1 Concent Red Cell Distribution Width 18.4 Platelet Count 115 Mean Platelet Volume 7.0 Neutrophils (%) (Auto) 63.6 Lymphocytes (%) (Auto) 16.3 Monocytes (%) (Auto) 13.8 Eosinophils (%) (Auto) 5.8 Basophils (%) (Auto) 0.5 Neutrophils # (Auto) 2.5 Lymphocytes # (Auto) 0.7 Monocytes # (Auto) 0.6 Eosinophils # (Auto) 0.2 Basophils # (Auto) 0.0 CBC Comment DIFF FINAL Differential Comment Prothrombin Time 12.8 Prothromb Time International 1.2 Ratio Activated Partial 27.8 Thromboplast Time Sodium Level 136 Potassium Level 4.1 Chloride Level 98 Carbon Dioxide Level 31.3 Anion Gap 7 Blood Urea Nitrogen 21 Creatinine 2.10 Estimat Glomerular Filtration 32 Rate Random Glucose 312 Calcium Level 7.7 Total Bilirubin 0.6 Aspartate Amino Transf 31 (AST/SGOT) Alanine Aminotransferase 29 (ALT/SGPT) Alkaline Phosphatase 176 Total Protein 6.9 Albumin 1.4 Result Diagram: 06/20/16 1530 06/20/16 1530 Assessment and Plan Problem List: (1) GI bleed ICD Code: K92.2 Status: Acute (2) Normocytic anemia due to blood loss ICD Code: D50.0 Status: Acute (3) Normocytic normochromic anemia ICD Code: D64.9 Status: Acute (4) Cirrhosis ICD Code: K74.60 Status: Acute (5) Atrial fibrillation ICD Code: I48.91 Status: Acute (6) JOSE (acute kidney injury) ICD Code: N17.9 Status: Acute (7) Knee osteomyelitis, left ICD Code: M86.9 Status: Acute (8) CKD (chronic kidney disease) stage 3, GFR 30-59 ml/min ICD Code: N18.3 Status: Acute (9) Decubitus ulcer of coccygeal region, stage 2 ICD Code: L89.152 Status: Acute (10) Thrombocytopenia ICD Code: D69.6 Status: Acute Assessment and Plan 66 years old man with GI bleed FOBT positive therefore will consult Gastroenterology for evaluation for possible Panendoscopy Start PPI IV Q12H Serial H/H monitoring Normocytic anemia due to Blood Loss H/H on admission 6.9/20.9 ----->7.6/23.1 (06/19/16) Transfuse 2 units PRBC Gastroenterology consultation pending Osteomyelitis of the left Knee Resume Vancomycin as well as Diflucan Wound care nurse consult Decubitus ulcer on her coccygeal region stage II Wound care nurse consultation pending Reposition every 2 hours CKD-stage 3: BUN/creatinine currently at baseline, continue to monitor and avoid all nephrotoxic drugs Atrial Fibrillation Resume Amiodarone Hold ASA DM2 Resume Lantus as well as Aspart Start ISS +FSBG monitoring H/O Cirrhosis Resume Lactulose Monitor NH3 Level Thrombocytopenia Secondary to liver disease, continue to monitor CBC COPD-no exacerbation Resume Symbicort, start Duo Neb PRN DVT prophylaxis: Chemical anti-prophylaxis contraindicated, bilateral SCDs GI prophylaxis: PPI Code Status DO NOT RESUSCITATE Discussed Condition With Patient, ED physician Physician Certification 2 Midnight Certification Type: Admission for Inpatient Services Order for Inpatient Services The services are ordered in accordance with Medicare regulations or non- Medicare payer requirements, as applicable. In the case of services not specified as inpatient-only, they are appropriately provided as inpatient services in accordance with the 2-midnight benchmark. Estimated LOS (days): 2 days is the estimated time the patient will need to remain in the hospital, assuming treatment plan goals are met and no additional complications. Post-Hospital Plan: Not yet determined Pepito Copeland MD June 20, 2016 17:11
[2016-06-20] MEDS ORDERED: diphenhydrAMINE HCL 25 MG CAP PO PRN (17:15)
[2016-06-20] MEDS ORDERED: ACETAMINOPHEN 325 MG TAB PO PRN ×3 (17:15)
[2016-06-20] MEDS ORDERED: FUROSEMIDE 20 MG/2 ML VIAL IV ONE (17:15)
[2016-06-20] MEDS ORDERED: ONDANSETRON HCL 4 MG/2 ML VIAL IVP PRN (17:15)
[2016-06-20] MEDS ORDERED: SODIUM CHLORIDE 0.9% FLUSH 10 ML FLUSH IV FLUSH PRN (17:15)
[2016-06-20] MEDS ORDERED: RESP: ALBUTEROL 2.5 MG/IPRATROPIUM 0.5 MG NEB (PRN) NEB (17:15)
[2016-06-20] MEDS ORDERED: SODIUM CHLOR 0.9% 250 ML INJ 250 ML IV ONE (17:15)
[2016-06-20] MEDS ORDERED: NALOXONE HCL 0.4 MG/ML AMP IV PRN (17:15)
[2016-06-20] MEDS ORDERED: ENALAPRILAT 1.25 MG/ML VIAL IV PUSH PRN (17:15)
[2016-06-20] MEDS ORDERED: Vancomycin Consult Pharmacy 1 EA OTHER SCH (17:45)
[2016-06-20] MEDS ORDERED: GLUCAGON 1 MG/ML VIAL OTHER PRN (17:45)
[2016-06-20] MEDS ORDERED: DEXTROSE 50% IN WATER 50 ML VIAL(D50) IV PUSH PRN (17:45)
[2016-06-20] MEDS ORDERED: VANCOMYCIN INJ 1,750 MG in SODIUM CHLORID 0.9% 500 ML INJ 500 ML IV ONE (18:00)
[2016-06-20] MEDS: AMIODARONE 200 MG TAB PO SCH (18:53)
[2016-06-20 20:00] VITALS: BP 131/60; PULSE 68; RESP 20; TEMP 97.5; O2SAT 98
[2016-06-20] MEDS: INSULIN DETEMIR 100 UNITS/ML VIAL SQ SCH (21:00)
[2016-06-20] MEDS ORDERED: INSULIN ASPART SUPPLEMENTAL SCALE SQ SCH (21:00)
[2016-06-20] MEDS: SODIUM CHLORIDE 0.9% FLUSH 10 ML FLUSH IV FLUSH SCH (21:00)
[2016-06-20] MEDS: NYSTATIN 100,000 U/GM PWD 15 GM BTL TOPICAL SCH (21:00)
[2016-06-20] MEDS ORDERED: VANCOMYCIN INJ 1,000 MG in SODIUM CHLOR 0.9% 250 ML INJ 250 ML IV SCH (21:00)
[2016-06-20] MEDS ORDERED: INSULIN DETEMIR 100 UNITS/ML VIAL SQ SCH (21:00)
[2016-06-21] VITALS (8 sets, daily range): BP systolic 109–124; BP diastolic 58–75; PULSE 62–67; RESP 16–20; TEMP 97.6–99.8; O2SAT 95–99
[2016-06-21] MEDS: INSULIN ASPART SUPPLEMENTAL SCALE SQ SCH ×5 (00:07→21:00)
[2016-06-21] MEDS: BUDESONIDE-FORMOTEROL 80/4.5 MCG INHALER INH SCH ×3 (00:07→21:40)
[2016-06-21] MEDS: traMADol HCL 50 MG TAB PO PRN ×2 (00:40→08:20)
[2016-06-21] MEDS: HUMALOG MIX SQ SCH ×2 (07:00→16:00)
[2016-06-21] MEDS: AMIODARONE 200 MG TAB PO SCH ×2 (08:14→16:20)
[2016-06-21] MEDS: LACTOBACILLUS ACIDOPHILUS TAB PO SCH ×3 (08:20→16:23)
[2016-06-21 08:52] LABS: CHLORIDE 101 MEQ/L (98-107); POTASSIUM 3.9 MEQ/L (3.5-5.1); SODIUM (NA) 139 MEQ/L (136-145)
[2016-06-21 08:56] LABS: ANION GAP 7 MEQ/L (5-15); BICARBONATE 30.7 MEQ/L (21.0-32.0)
[2016-06-21] MEDS ORDERED: PANTOPRAZOLE SODIUM 40 MG VIAL IV SCH (09:00)
[2016-06-21] MEDS: LACTULOSE SYRUP 20 GM/30 ML CUP PO SCH ×3 (09:00→21:43)
[2016-06-21 09:09] LABS: AUTOMATED NEUTROPHIL # 2.1 TH/MM3 (1.8-7.7); BASOPHIL % 0.7 % (0.0-2.0); EOSINOPHIL # 0.3 TH/MM3 (0-0.4); EOSINOPHIL % 7.4 % (0.0-4.0); HEMATOCRIT 25.3 % (39.0-51.0); LYMPH % 21.2 % (9.0-44.0); LYMPHOCYTE # 0.8 TH/MM3 (1.0-4.8); MEAN CELL VOLUME 88.8 FL (80.0-100.0); MEAN CORPUSCULAR HEMOGLOBIN 29.5 PG (27.0-34.0); MEAN CORPUSCULAR HGB CONC 33.2 % (32.0-36.0); MONO % 13.4 % (0.0-8.0); NEUT % 57.3 % (16.0-70.0); PLATELET COUNT 90 TH/MM3 (150-450); RED BLOOD COUNT 2.84 MIL/MM3 (4.50-5.90); RED CELL DISTRIBUTION WIDTH 17.5 % (11.6-17.2); WHITE BLOOD COUNT 3.7 TH/MM3 (4.0-11.0)
[2016-06-21 09:11] LABS: HEMO FLAGS AUTO DIFF
[2016-06-21 09:20] LABS: ALKALINE PHOSPHATASE 154 U/L (45-117); ALT (GPT) 25 U/L (12-78); AST (GOT) 27 U/L (15-37); BLOOD UREA NITROGEN 19 MG/DL (7-18); GLOMERULAR FILTRATION RATE 40 ML/MIN (>89); TOTAL BILIRUBIN ADULT 1.3 MG/DL (0.2-1.0)
[2016-06-21] MEDS: BUMETANIDE 1 MG TAB PO SCH (09:23)
[2016-06-21] MEDS: FLUCONAZOLE 100 MG TAB PO SCH (09:24)
[2016-06-21] MEDS: MAGNESIUM OXIDE 400 MG TAB PO SCH ×3 (09:24→21:44)
[2016-06-21] MEDS: NYSTATIN 100,000 U/GM PWD 15 GM BTL TOPICAL SCH ×2 (09:25→21:00)
[2016-06-21] MEDS: PANTOPRAZOLE SODIUM 40 MG VIAL IV PUSH SCH ×3 (09:28→21:40)
[2016-06-21] MEDS: SODIUM CHLORIDE 0.9% FLUSH 10 ML FLUSH IV FLUSH SCH ×2 (09:28→21:41)
[2016-06-21 09:40] LABS: SCAN/DIFF AUTO DIFF CONFIRMED
[2016-06-21] MEDS: INSULIN DETEMIR 100 UNITS/ML VIAL SQ SCH ×2 (09:41→21:51)
--- NOTE | 2016-06-21 11:43 | HHI.PR ---
Subjective Remarks Follow-up GI bleed and anemia. States he is doing okay. Discussed with RN, guaiac-positive stool. Discussed with rehabilitation Susan Griffith, to give last dose of vancomycin today, Objective Vitals Vital Signs Date Time Temp Pulse Resp B/P Pulse Ox O2 Delivery O2 Flow Rate FiO2 06/21/16 08:00 98.3 65 20 122/63 96 06/21/16 06:30 98.5 62 20 117/63 97 06/21/16 03:55 98.0 62 18 109/61 97 06/21/16 00:57 98.0 67 16 112/58 97 06/21/16 00:00 97.6 66 20 112/58 97 06/20/16 20:00 97.5 68 20 131/60 98 06/20/16 20:00 97.5 68 20 131/60 98 06/20/16 16:45 65 18 123/53 95 Nasal Cannula 2 06/20/16 15:45 64 18 117/55 94 Nasal Cannula 2 06/20/16 14:37 99.5 87 18 135/59 96 I/O 06/20/16 06/20/16 06/20/16 06/21/16 06/21/16 06/21/16 07:00 15:00 23:00 07:00 15:00 23:00 Intake Total 120 ml Output Total 300 ml 525 ml Balance -180 ml -525 ml Intake Oral 120 ml Output Urine Total 300 ml 525 ml # Voids 1 1 # Bowel Movements 0 0 Result Diagram: 06/21/16 0810 06/21/16 0810 Objective Remarks GENERAL: This is a well-nourished, well-developed patient, in no apparent distress. SKIN: Sacral decubitus stage II with dressing HEAD: Atraumatic. Normocephalic. No temporal or scalp tenderness. EYES: Pupils equal round and reactive. Extraocular motions intact. No scleral icterus. No injection or drainage. ENT: Nose without bleeding, purulent drainage or septal hematoma. Throat without erythema, tonsillar hypertrophy or exudate. Uvula midline. Airway patent. NECK: Trachea midline. No JVD or lymphadenopathy. Supple, nontender, no meningeal signs. CARDIOVASCULAR: Regular rate and rhythm without gallops, or rubs. Systolic murmur noted RESPIRATORY: Clear to auscultation. Breath sounds equal bilaterally. No wheezes , rales, or rhonchi. GASTROINTESTINAL: Abdomen soft, non-tender, nondistended. No guarding. MUSCULOSKELETAL: Extremities without clubbing, cyanosis, or edema. Left knee tender to palpation with decreased range of motion, warm to touch NEUROLOGICAL: Awake and alert. Cranial nerves II through XII intact. Motor and sensory grossly within normal limits. Five out of 5 muscle strength in all muscle groups. Normal speech. A/P Problem List: (1) GI bleed ICD Code: K92.2 Status: Acute (2) Normocytic anemia due to blood loss ICD Code: D50.0 Status: Acute (3) Normocytic normochromic anemia ICD Code: D64.9 Status: Acute (4) Cirrhosis ICD Code: K74.60 Status: Acute (5) Atrial fibrillation ICD Code: I48.91 Status: Acute (6) JOSE (acute kidney injury) ICD Code: N17.9 Status: Acute (7) Knee osteomyelitis, left ICD Code: M86.9 Status: Acute (8) CKD (chronic kidney disease) stage 3, GFR 30-59 ml/min ICD Code: N18.3 Status: Acute (9) Decubitus ulcer of coccygeal region, stage 2 ICD Code: L89.152 Status: Acute (10) Thrombocytopenia ICD Code: D69.6 Status: Acute Assessment and Plan 66 years old man with GI bleed FOBT positive consulted Gastroenterology for possible Panendoscopy. Hold antiplatelets Start PPI IV Q12H Serial H/H monitoring Normocytic anemia due to Blood Loss H/H on admission 6.9/20.9 ----->7.6/23.1 (06/19/16) Transfuse 2 units PRBC with improved blood counts Osteomyelitis of the left Knee Resume Vancomycin as well as Diflucan Wound care nurse consult Discussed with rehabilitation Susan, last dose of vancomycin today Decubitus ulcer on her coccygeal region stage II Wound care nurse consultation pending Reposition every 2 hours CKD-stage 3: BUN/creatinine improving rather than baseline, continue to monitor and avoid all nephrotoxic drugs Atrial Fibrillation Resume Amiodarone Hold ASA DM2 Resume Lantus as well as Aspart Continue ISS +FSBG monitoring H/O Cirrhosis Resume Lactulose Thrombocytopenia Secondary to liver disease, continue to monitor CBC COPD-no exacerbation Continue Symbicort and Duo Neb PRN DVT prophylaxis: Chemical anti-prophylaxis contraindicated, continue bilateral SCDs GI prophylaxis: PPI Discharge Planning Not ready for discharge Problem Qualifiers (1) GI bleed: Qualified Code: K26.4 - Gastrointestinal hemorrhage associated with duodenal ulcer Jose Tom MD June 21, 2016 11:43
[2016-06-21] MEDS ORDERED: TRAM50TA PO (13:20)
--- NOTE | 2016-06-21 13:22 | HHI.DCPOC ---
Discharge Care Plan Diagnosis: (1) GI bleed (2) Anemia Goals to Promote Your Health * To prevent worsening of your condition and complications * To maintain your health at the optimal level Directions to Meet Your Goals Take your medications as prescribed Follow your dietary instruction Follow activity as directed Keep your appointments as scheduled Take your immunizations and boosters as scheduled If your symptoms worsen call your PCP, if no PCP go to Urgent Care Center or Emergency Room Smoking is Dangerous to Your Health. Avoid second hand smoke Call the 24-hour hour crisis hotline for domestic abuse at Jose Tom MD June 21, 2016 13:22
--- NOTE | 2016-06-21 18:17 | MB ---
cc: SHALINIDUSTIN DATE OF CONSULTATION 06/21/[address] Pepito Copeland REASON FOR CONSULTATION Anemia and GI bleed. HISTORY OF PRESENT ILLNESS Mr. Gonzalez is a very pleasant 66-year-old gentleman known to us from previous admission to the hospital. He was sent from rehab for anemia. Apparently, there is some bloody stools too. The patient has recent admission to the hospital for a similar reason. He underwent extensive GI workup. He had multiple endoscopies . He was found to have a duodenal ulcer which was treated endoscopically. He also underwent an angiogram with embolization. His hemoglobin in looking back to previous admission runs anywhere between 9 and 7.6. The highest value we have was 10.1 a month ago, but he runs on the lower side most of the time. The patient has also history of cirrhosis, most likely secondary to alcohol. There is no report of nausea, vomiting, melena, hematemesis or hematochezia since his admission to this floor. He received two units of PRBC and his hemoglobin has been relatively stable. He currently denies any GI symptoms and he is hemodynamically stable. He had an endoscopy on 05/16/2016 which showed large clots in the fundus. She had a repeat one on 05/18/2016 which showed multiple large ulcers in the duodenal bulb and second portion of the duodenum that was cauterized using ball tip and epinephrine 1:10,000 was injected. The patient was referred to IR the same day and he had embolization of the GDI with coil and Gelfoam application. He had a repeat endoscopy on 05/22/2016 which showed duodenitis, large duodenal ulcer with no active bleeding. The patient had a bleeding scan on 05/20/2016 that showed positive GI bleed in the small intestine proximal to the duodenum. He had an embolization done as I mentioned on 05/19/2016 which showed active bleeding at the GDA in the expected location of the duodenum, successful coil and Gelfoam embolization done. PAST MEDICAL HISTORY 1. Duodenal ulcer 2. Diabetes 3. Atrial fibrillation 4. Liver cirrhosis. 5. Osteomyelitis PAST SURGICAL HISTORY 1. Right great toe amputation due to osteomyelitis ____ MEDICATIONS In the half-way, 1. Poly vitamins 2. Vitamin B1 3. Protonix, 4. Lactulose 5. Levemir 6. Symbicort. 7. Amiodarone 8. Albuterol 9. Tylenol 10. Ibuprofen 11. Cleocin 12. Advair 13. Ventolin 14. Metformin 15. Magnesium oxide 16. Glipizide 17. Aspirin. ALLERGIES No known allergies. FAMILY HISTORY Brother on hemodialysis. SOCIAL HISTORY Smoked in the past. Drinks two to five beers per day. That was prior to his admission to rehabilitation. REVIEW OF SYSTEMS He denies any fever or chills, weight loss or weight gain. ENT: No alteration in baseline hearing or visual acuity PULMONARY: Denies any chest pain, shortness of breath. GASTROINTESTINAL: As above. GENITOURINARY: Denies dysuria, hematuria. HEMATOLOGIC: She does have a history of anemia and bleeding disorder PHYSICAL EXAMINATION GENERAL: On clinical exam, the patient is sitting in bed. He looks chronically ill. VITAL SIGNS: Blood pressure is 124/67, temperature 97.6, pulse 67, respiration 20. HEENT: Pupils equal, round, reactive to light and accommodation. Pale NECK: No JVD. No lymphadenopathy. CHEST: Clear to the auscultation and palpation. Cardiovascular: S1, S2. No murmur. ABDOMEN: Abdomen is soft, nontender with prominent veins on his abdominal wall. EXTREMITIES: No pedal edema. 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 LABORATORY DATA His white count on admission was 4, currently 3.7, hemoglobin was 6.9 - currently 8.4, platelets 115 - currently 90. His PT/INR 12.8 and 1.2. His chemistry suggestive of BUN 19, creatinine 1.7, total bilirubin 1.3, alkaline phosphatase 154, ammonia 148. IMPRESSION Mr. Gonzalez is an unfortunate 66-year-old gentleman with multiple medical problems. He has a history of liver cirrhosis and recently diagnosed peptic ulcer disease, admitted to the hospital for anemia and one episode of bloody diarrhea prior to his admission to the hospital. Since his admission, he has no further episode of bleeding. he is hemodynamically stable at this time. RECOMMENDATIONS Monitor H&H closely. Transfuse p.r.n. to keep hemoglobin more than eight. If further bleeding, repeat bleeding scan and possible endoscopy/colonoscopy. We are going to order a CT abdomen and pelvis to further evaluate the liver status if he is cirrhotic and he did not have abdominal image in many years. Concern for hepatocellular carcinoma. Further recommendation will depend on the patient's clinical status. If active bleeding, please notify GI. egd/colon 8 weeks op if remains stable I would like to thank Dr. Tom for referring him to our office for consultation. MD SINDHU Raman/SA /5:37 PM /5:54 PM [email or web address]
[2016-06-21 18:37] LABS: HEMOGLOBIN A1a 1.1 %; HEMOGLOBIN A1b 0.9 %; HEMOGLOBIN Ao 83.3 %; HEMOGLOBIN F 1.7 %; HEMOGLOBIN P3 5.8 %
[2016-06-21 18:39] LABS: HEMATOCRIT 27.2 % (39.0-51.0)
[2016-06-21 18:45] LABS: REVIEW FLAG FINAL
[2016-06-21] MEDS ORDERED: DIATRIZOATE MEGLUM/DIATRIZOATE SOD 9 ML CUP PO ONE (19:00)
[2016-06-21] MEDS ORDERED: hydrALAZINE HCL 25 MG TAB PO SCH (21:00)
--- NOTE | 2016-06-21 22:23 | RADHPO ---
EXAM DATE/TIME: 06/21/2016 21:15 [place] COMPARISON: No previous studies available for comparison. INDICATIONS : Cirrhosis. ORAL CONTRAST: Prescribed oral contrast ingested. RADIATION DOSE: 20.42 CTDIvol (mGy) MEDICAL HISTORY : Renal failure, chronic. Diabetes. SURGICAL HISTORY : None. ENCOUNTER: Initial ACUITY: 1 day PAIN SCALE: 0/10 LOCATION: Abdomen. TECHNIQUE: Volumetric scanning of the abdomen and pelvis was performed. Using automated exposure control and adjustment of the mA and/or kV according to patient size, radiation dose was kept as low as reasonably achievable to obtain optimal diagnostic quality images. FINDINGS: The liver is diffusely abnormal with hypertrophy of the left lobe and caudate. There i s a nodular hepatic surface. There does appear to be some faint increased density at the lateral rig ht lobe likely related to some degree of subcapsular calcification. There is a mild amount of ascite s seen around the liver. There is a recanalized periumbilical vein and varices seen in the anterior abdominal wall. There are serpiginous densities seen in the left upper quadrant related to varices. There are two small areas of calcifications measuring 2 to 3 mm seen in the central aspect of the rig ht lobe of the liver. These appear to be at the periphery of the portal vein. Gallstones or a dilat ed biliary system is not seen. There are metallic densities seen around the distal aspect of the sto mach. This could be related to prior surgical or vascular intervention. The spleen is normal in size. The pancreas and adrenal glands and kidneys are unremarkable for a non specific CT examination. The bowel is unremarkable. The pelvic structures appear intact. The anteri or abdominal wall is intact. There are mild to moderate bilateral pleural effusions with accompanying areas of subpleural atelectasis or consolidation. There is moderate pericardial effusion measuring up to 1.4 cm. Coronary artery calcifications are present. Spurs are seen throughout the lumbar spine . CONCLUSION: 1. Cirrhotic liver with varices. 2. Mild to moderate bilateral pleural effusions with accompanying areas of subpleural atelectasis at the lower lobes. 3. Moderate pericardial effusion measuring up to 1.4 cm. Olegario Heart MD on June 21, 2016 at 22:10 Board Certified Radiologist. This report was verified electronically.
[2016-06-22] VITALS: BP 118/63; PULSE 71; RESP 18; TEMP 99.5; O2SAT 96
[2016-06-22] MEDS: AMIODARONE 200 MG TAB PO SCH ×2 (06:04→16:27)
[2016-06-22] MEDS: INSULIN ASPART SUPPLEMENTAL SCALE SQ SCH ×3 (06:07→16:00)
[2016-06-22] MEDS: HUMALOG MIX SQ SCH ×2 (06:15→15:53)
[2016-06-22 06:26] LABS: AUTOMATED NEUTROPHIL # 3.4 TH/MM3 (1.8-7.7); BASOPHIL % 0.6 % (0.0-2.0); EOSINOPHIL # 0.2 TH/MM3 (0-0.4); EOSINOPHIL % 4.2 % (0.0-4.0); HEMATOCRIT 25.8 % (39.0-51.0); HEMO FLAGS DIFF FINAL; LYMPH % 21.8 % (9.0-44.0); LYMPHOCYTE # 1.2 TH/MM3 (1.0-4.8); MEAN CELL VOLUME 88.5 FL (80.0-100.0); MEAN CORPUSCULAR HEMOGLOBIN 28.9 PG (27.0-34.0); MEAN CORPUSCULAR HGB CONC 32.6 % (32.0-36.0); NEUT % 60.4 % (16.0-70.0); PLATELET COUNT 104 TH/MM3 (150-450); RED BLOOD COUNT 2.91 MIL/MM3 (4.50-5.90); RED CELL DISTRIBUTION WIDTH 17.4 % (11.6-17.2); WHITE BLOOD COUNT 5.5 TH/MM3 (4.0-11.0)
[2016-06-22 06:43] LABS: MAGNESIUM 2.6 MG/DL (1.5-2.5)
[2016-06-22 08:00] VITALS: BP 128/90; PULSE 77; RESP 17; TEMP 98; O2SAT 95
[2016-06-22] MEDS: BUMETANIDE 1 MG TAB PO SCH (08:09)
[2016-06-22] MEDS: MAGNESIUM OXIDE 400 MG TAB PO SCH (08:09)
[2016-06-22] MEDS: LACTOBACILLUS ACIDOPHILUS TAB PO SCH ×3 (08:09→16:30)
[2016-06-22] MEDS: FLUCONAZOLE 100 MG TAB PO SCH (08:10)
[2016-06-22] MEDS: BUDESONIDE-FORMOTEROL 80/4.5 MCG INHALER INH SCH (08:10)
[2016-06-22] MEDS: NYSTATIN 100,000 U/GM PWD 15 GM BTL TOPICAL SCH (08:11)
[2016-06-22] MEDS: PANTOPRAZOLE SODIUM 40 MG VIAL IV PUSH SCH (08:11)
[2016-06-22] MEDS: SODIUM CHLORIDE 0.9% FLUSH 10 ML FLUSH IV FLUSH SCH (08:11)
[2016-06-22] MEDS: LACTULOSE SYRUP 20 GM/30 ML CUP PO SCH (08:11)
[2016-06-22] MEDS: RESP: ALBUTEROL 0.63 MG/3 ML NEB (SCH) NEB ×3 (08:30→15:02)
[2016-06-22 08:34] VITALS: O2SAT 99
[2016-06-22] MEDS ORDERED: INSULIN DETEMIR 100 UNITS/ML VIAL SQ SCH ×2 (09:00→21:00)
[2016-06-22] MEDS ORDERED: CARVEDILOL 12.5 MG TAB PO SCH (09:00)
--- NOTE | 2016-06-22 09:09 | HHI.PR ---
Subjective Remarks Follow-up GI bleed. No further bleeding. Patient has no symptoms denies abdominal pain, dizziness, chest pain and shortness of breath. Discussed with RN, repeat H&H at 12 noon if stable can be discharged home. Also awaiting wound care consult. Abdominal CT results discussed with the patient and brother. Stable dyspnea on exertion on a 1 mL liter nasal cannula. To continue Bumex. Patient does not want any invasive procedure at this time. Objective Vitals Vital Signs Date Time Temp Pulse Resp B/P Pulse Ox O2 Delivery O2 Flow Rate FiO2 06/22/16 08:34 99 Nasal Cannula 2.00 06/22/16 08:00 98.0 77 17 128/90 95 06/22/16 00:00 99.5 71 18 118/63 96 06/21/16 20:00 99.8 67 18 121/75 96 06/21/16 16:00 97.6 67 20 124/67 95 06/21/16 12:00 98.0 65 20 110/58 99 I/O 06/21/16 06/21/16 06/21/16 06/22/16 06/22/16 06/22/16 07:00 15:00 23:00 07:00 15:00 23:00 Intake Total 1000 ml 280 ml 720 ml Output Total 525 ml 800 ml 300 ml 550 ml Balance -525 ml 200 ml -20 ml 170 ml Intake Oral 1000 ml 280 ml 720 ml Output Urine Total 525 ml 800 ml 300 ml 550 ml # Voids 1 # Bowel Movements 0 0 2 Result Diagram: 06/22/16 0600 06/21/16 0810 Imaging Last Impressions Abdomen/Pelvis CT 06/21/16 0000 Signed Impressions: Service Date/Time: June 21:15 - CONCLUSION: 1. Cirrhotic liver with varices. 2. Mild to moderate bilateral pleural effusions with accompanying areas of subpleural atelectasis at the lower lobes. 3. Moderate pericardial effusion measuring up to 1.4 cm. Olegario Heart MD Objective Remarks GENERAL: This is a well-nourished, well-developed patient, in no apparent distress. SKIN: Sacral decubitus stage II with dressing HEAD: Atraumatic. Normocephalic. No temporal or scalp tenderness. EYES: Pupils equal round and reactive. Extraocular motions intact. No scleral icterus. No injection or drainage. ENT: Nose without bleeding, purulent drainage or septal hematoma. Throat without erythema, tonsillar hypertrophy or exudate. Uvula midline. Airway patent. NECK: Trachea midline. No JVD or lymphadenopathy. Supple, nontender, no meningeal signs. CARDIOVASCULAR: Regular rate and rhythm without gallops, or rubs. Systolic murmur noted RESPIRATORY: Clear to auscultation. Breath sounds equal bilaterally. No wheezes , rales, or rhonchi. GASTROINTESTINAL: Abdomen soft, non-tender, nondistended. No guarding. MUSCULOSKELETAL: Extremities without clubbing, cyanosis, or edema. Left knee tender to palpation with decreased range of motion, warm to touch NEUROLOGICAL: Awake and alert. Cranial nerves II through XII intact. Motor and sensory grossly within normal limits. Five out of 5 muscle strength in all muscle groups. Normal speech. Procedures none A/P Problem List: (1) GI bleed ICD Code: K92.2 Status: Resolved (2) Normocytic anemia due to blood loss ICD Code: D50.0 Status: Acute (3) Normocytic normochromic anemia ICD Code: D64.9 Status: Acute (4) Cirrhosis ICD Code: K74.60 Status: Chronic (5) Atrial fibrillation ICD Code: I48.91 Status: Chronic (6) JOSE (acute kidney injury) ICD Code: N17.9 Status: Resolved (7) Knee osteomyelitis, left ICD Code: M86.9 Status: Chronic (8) CKD (chronic kidney disease) stage 3, GFR 30-59 ml/min ICD Code: N18.3 Status: Chronic (9) Decubitus ulcer of coccygeal region, stage 2 ICD Code: L89.152 Status: Chronic (10) Thrombocytopenia ICD Code: D69.6 Status: Chronic Assessment and Plan 66 years old man with GI bleed FOBT initially positive. He had an endoscopy on 05/16/2016 which showed large clots in the fundus. Repeat one on 05/18/2016 which showed multiple large ulcers in the duodenal bulb and second portion of the duodenum that was cauterized using ball tip and epinephrine 1:10,000 was injected. The patient was referred to IR the same day and he had embolization of the GDI with coil and Gelfoam application. He had a repeat endoscopy on 05/22/2016 which showed duodenitis, large duodenal ulcer with no active bleeding. The patient had a bleeding scan on 05/20/2016 that showed positive GI bleed in the small intestine proximal to the duodenum. He had an embolization done on 05/19/2016 which showed active bleeding at the GDA in the expected location of the duodenum, successful coil and Gelfoam embolization done. Consulted Gastroenterology recommended monitoring of blood counts and repeat scan and endoscopy if active bleeding. Overnight no further bleeding. Repeat FOBT negative. Stable blood counts Hold antiplatelets Continue PPI IV Q12H Repeat H&H at 12 noon if stable can be discharged back to SNF Normocytic anemia due to Blood Loss H/H on admission 6.9/20.9 ----->7.6/23.1 (06/19/16) Transfuse 2 units PRBC with improved blood counts Osteomyelitis of the left Knee Resume Vancomycin as well as Diflucan Wound care nurse consult Discussed with rehabilitation Susan, last dose of vancomycin yesterday Decubitus ulcer on her coccygeal region stage II Wound care nurse consultation pending Reposition every 2 hours CKD-stage 3: BUN/creatinine improving rather than baseline, continue to monitor and avoid all nephrotoxic drugs Atrial Fibrillation Resume Amiodarone Hold ASA DM2 Resume Lantus (switched to Levemir) as well as Aspart Continue ISS +FSBG monitoring Patient with hypoglycemia this morning. Asymptomatic. Decrease Levemir to 8 units at bedtime. Hypoglycemia protocol H/O Cirrhosis Resume Lactulose and Bumex Thrombocytopenia Secondary to liver disease, continue to monitor CBC COPD-no exacerbation Continue Symbicort and Duo Neb PRN Bilateral pleural effusion and pericardial effusion. Also has atelectasis seen on CT. Patient with chronic dyspnea on exertion with stable symptoms. On 1.5 L nasal cannula. Patient does not want any invasive procedure at this time. Continue Bumex. Incentive spirometry and scheduled nebulizations DVT prophylaxis: Chemical anti-prophylaxis contraindicated, continue bilateral SCDs GI prophylaxis: PPI Discharge Planning Discharge patient to SNF Condition on discharge: Improved Regular Diet as tolerated Ad Agnes activity no driving Rx written: None Follow-up with primary care physician and GI in one week Spent over 30 minutes arranging discharge discussed with patient, brother, RN and case management. 3008 form completed Problem Qualifiers (1) GI bleed: Qualified Code: K26.4 - Gastrointestinal hemorrhage associated with duodenal ulcer Jose Tom MD June 22, 2016 09:09
[2016-06-22] MEDS: traMADol HCL 50 MG TAB PO PRN (11:05)
[2016-06-22 12:00] VITALS: BP 124/85; PULSE 70; RESP 18; TEMP 98.1; O2SAT 96
[2016-06-22 12:39] LABS: HEMATOCRIT 26.8 % (39.0-51.0)
[2016-06-22 12:58] LABS: REVIEW FLAG FINAL
--- NOTE | 2016-06-22 15:04 | HHI.GIFU ---
GI Follow-up Note Consult Follow-up Subjective: Patient laying in bed comfortably, no further bleeding, tolerated diet well. Hb stable.CT noted Objective: PHYSICAL EXAMINATION: Vitals signs stable No fever Vital Signs Date Time Temp Pulse Resp B/P Pulse Ox O2 Delivery O2 Flow Rate FiO2 06/22/16 12:00 98.1 70 18 124/85 96 06/22/16 08:34 99 Nasal Cannula 2.00 06/22/16 08:00 98.0 77 17 128/90 95 HEENT: Pupils round and reactive to light; normocephalic; atraumatic; no jaundice. Throat is clear. NECK: Neck is supple, no JVD, no lymphadenopathy. CHEST: Chest is clear to auscultation and percussion. CARDIAC: Regular rate and rhythm with no murmur gallop or rubs. ABDOMEN: Soft, nondistended, nontender; no hepatosplenomegaly; bowel sounds are present in all four quadrants. EXTREMITIES: No clubbing, cyanosis, or edema. SKIN: Normal; no rash; no jaundice. TAILER OFF: No focal deficits; alert and oriented times three. Available Data (labs, X- Rays, Procedues) : Laboratory Tests Test 06/20/16 06/21/16 06/21/16 06/22/16 15:30 08:10 18:30 06:00 White Blood Count 4.0 TH/MM3 3.7 TH/MM3 5.5 TH/MM3 Red Blood Count 2.35 MIL/MM3 2.84 MIL/MM3 2.91 MIL/MM3 Hemoglobin 6.9 GM/DL 8.4 GM/DL 8.7 GM/DL 8.4 GM/DL Hematocrit 20.9 % 25.3 % 27.2 % 25.8 % Mean Corpuscular Volume 88.8 FL 88.8 FL 88.5 FL Mean Corpuscular Hemoglobin 29.4 PG 29.5 PG 28.9 PG Mean Corpuscular Hemoglobin 33.1 % 33.2 % 32.6 % Concent Red Cell Distribution Width 18.4 % 17.5 % 17.4 % Platelet Count 115 TH/MM3 90 TH/MM3 104 TH/MM3 Mean Platelet Volume 7.0 FL 7.6 FL 7.5 FL Neutrophils (%) (Auto) 63.6 % 57.3 % 60.4 % Lymphocytes (%) (Auto) 16.3 % 21.2 % 21.8 % Monocytes (%) (Auto) 13.8 % 13.4 % 13.0 % Eosinophils (%) (Auto) 5.8 % 7.4 % 4.2 % Basophils (%) (Auto) 0.5 % 0.7 % 0.6 % Neutrophils # (Auto) 2.5 TH/MM3 2.1 TH/MM3 3.4 TH/MM3 Lymphocytes # (Auto) 0.7 TH/MM3 0.8 TH/MM3 1.2 TH/MM3 Monocytes # (Auto) 0.6 TH/MM3 0.5 TH/MM3 0.7 TH/MM3 Eosinophils # (Auto) 0.2 TH/MM3 0.3 TH/MM3 0.2 TH/MM3 Basophils # (Auto) 0.0 TH/MM3 0.0 TH/MM3 0.0 TH/MM3 CBC Comment DIFF FINAL AUTO DIFF DIFF FINAL Differential Comment AUTO DIFF CONFIRMED Prothrombin Time 12.8 SEC Prothromb Time International 1.2 RATIO Ratio Activated Partial 27.8 SEC Thromboplast Time Sodium Level 136 MEQ/L 139 MEQ/L Potassium Level 4.1 MEQ/L 3.9 MEQ/L Chloride Level 98 MEQ/L 101 MEQ/L Carbon Dioxide Level 31.3 MEQ/L 30.7 MEQ/L Anion Gap 7 MEQ/L 7 MEQ/L Blood Urea Nitrogen 21 MG/DL 19 MG/DL Creatinine 2.10 MG/DL 1.70 MG/DL Estimat Glomerular Filtration 32 ML/MIN 40 ML/MIN Rate Random Glucose 312 MG/DL 75 MG/DL Calcium Level 7.7 MG/DL 7.6 MG/DL Total Bilirubin 0.6 MG/DL 1.3 MG/DL Aspartate Amino Transf 31 U/L 27 U/L (AST/SGOT) Alanine Aminotransferase 29 U/L 25 U/L (ALT/SGPT) Alkaline Phosphatase 176 U/L 154 U/L Total Protein 6.9 GM/DL 6.4 GM/DL Albumin 1.4 GM/DL 1.3 GM/DL Blood Type A POSITIVE Antibody Screen NEGATIVE Crossmatch Leukocyte-Reduced Red Blood Cells Blood Bank Comment Hemoglobin A1c 6.3 % Ammonia 48 MCMOL/L Magnesium Level 2.6 MG/DL Random Vancomycin Level 22.8 COMMENT Test 06/22/16 12:20 Hemoglobin 8.9 GM/DL Hematocrit 26.8 % ASSESSMENT/PLAN: anemia-multifactorial, no indication of active bleeding history of pud sp embolization and endoscopic therapy - liver cirrhosis most likely etoh Recommendations ppi-bid no nsaids ok to restart asa in 1 week cbc weekly fu office iron supplementation ok to dc from gi point It was a pleasure seeing Kla Gonzalez Thank you for this consult. Entered by: Marianna Carlson MD June 22, 2016 15:04
[2016-06-22 16:00] VITALS: BP 118/91; PULSE 79; RESP 19; TEMP 97.5; O2SAT 97
== END 2016-06-22 17:08 | DRG 378 ==
LOC: PHED 14:30 → PHEDA 16:47 → PH3B 17:26
PROVIDERS: ADMIT Internal Medicine; ATTEND Internal Medicine
PROC: 30233N1 Transfusion of Nonautologous Red Blood Cells into Peripheral Vein, Percutaneous Approach (ICD-10-PCS; principal; 2016-06-21)
DX: K92.2 Gastrointestinal hemorrhage, unspecified (principal); D62 Acute posthemorrhagic anemia; N17.9 Acute kidney failure, unspecified; L89.152 Pressure ulcer of sacral region, stage 2; E11.22 Type 2 diabetes mellitus with diabetic chronic kidney disease; D69.6 Thrombocytopenia, unspecified; E11.649 Type 2 diabetes mellitus with hypoglycemia without coma; E11.69 Type 2 diabetes mellitus with other specified complication; M86.9 Osteomyelitis, unspecified; K26.9 Duodenal ulcer, unspecified as acute or chronic, without hemorrhage or perforation; K74.60 Unspecified cirrhosis of liver; I48.91 Unspecified atrial fibrillation; J44.9 Chronic obstructive pulmonary disease, unspecified; N18.3 Chronic kidney disease, stage 3 (moderate); R06.09 Other forms of dyspnea; Z79.4 Long term (current) use of insulin
CPT/HCPCS: 36430; 74176; 80053; 80202; 82140; 82948; 83036; 83735; 85014; 85018; 85025; 85610; 85730; 86850; 86900; 86901; 86920; 94150; 94640; 94664; C9113; J1815; J1940; J3370; J7040; J7050; J7613; P9016; Q9963

== ENCOUNTER 2016-06-25 03:16 | Inpatient (IN) | payer MEDICARE ==
[2016-06-25] VITALS (34 sets, daily range): BP systolic 73–141; BP diastolic 46–65; PULSE 63–85; RESP 14–35; TEMP 98.1–98.6; O2SAT 10–100
[~2016-06-25] VITALS: Ht 172.7 cm; Wt 98.1 kg
[~2016-06-25 03:16] MED LIST changes: -ADVA100A INH; +CALC500C6 CHEW; -CLIN150 PO; +DIFL100T PO; -GLIP5TAB8 PO; +HUMA50IN SQ; +HUMALOG SQ; -IBUP800T23 PO; +LACTCAP8 PO; -METF500T PO; +POTA10CA PO; +TRAM50TA PO; +VANC1000P IV
[2016-06-25] MEDS ORDERED: SODIUM CHLORIDE 0.9% FLUSH 10 ML FLUSH IVF PRN (03:30)
[2016-06-25] MEDS ORDERED: BUMETANIDE INJ 1 MG/4 ML VIAL IV PUSH ONE ×2 (03:30→14:00)
[2016-06-25] MEDS ORDERED: methylPREDNISolone SOD SUCC 125 MG/2 ML VIAL IVP ONE (03:30)
[2016-06-25] MEDS ORDERED: PROPOFOL 1000 MG/100 ML INJ 100 ML ONE (03:34)
[2016-06-25 03:53] LABS: AUTOMATED NEUTROPHIL # 5.7 TH/MM3 (1.8-7.7); BASOPHIL # 0.1 TH/MM3 (0-0.2); BASOPHIL % 1.2 % (0.0-2.0); EOSINOPHIL # 0.3 TH/MM3 (0-0.4); EOSINOPHIL % 3.3 % (0.0-4.0); HEMATOCRIT 33.6 % (39.0-51.0); HEMO FLAGS DIFF FINAL; LYMPH % 32.8 % (9.0-44.0); LYMPHOCYTE # 3.5 TH/MM3 (1.0-4.8); MEAN CELL VOLUME 92.2 FL (80.0-100.0); MEAN CORPUSCULAR HEMOGLOBIN 29.3 PG (27.0-34.0); MEAN CORPUSCULAR HGB CONC 31.8 % (32.0-36.0); MONO % 8.9 % (0.0-8.0); NEUT % 53.8 % (16.0-70.0); PLATELET COUNT 150 TH/MM3 (150-450); RED BLOOD COUNT 3.64 MIL/MM3 (4.50-5.90); RED CELL DISTRIBUTION WIDTH 18.2 % (11.6-17.2); WHITE BLOOD COUNT 10.6 TH/MM3 (4.0-11.0)
[2016-06-25] MEDS: PROPOFOL 1000 MG/100 ML INJ 100 ML IV SCH ×2 (03:53→15:16)
--- NOTE | 2016-06-25 03:54 | RADRPT ---
EXAM DATE/TIME: 06/25/2016 03:41 [facility] COMPARISON: CHEST SINGLE AP, May 27, 2016, 19:03. INDICATIONS : Shortness of breath. MEDICAL HISTORY : Diabetes mellitus type II. Asthma. SURGICAL HISTORY : None. ENCOUNTER: Initial ACUITY: 1 day PAIN SCORE: Non-responsive. LOCATION: Bilateral chest FINDINGS: 2 portable frontal views of the chest show an endotracheal tube with the tip 5 cm cephalad to the car tereso. Nasogastric tube tip is just past the GE junction. Small bilateral pleural effusions. Patchy par enchymal consolidation throughout the right lung as well as both lung bases. Heart is normal in size. CONCLUSION: 1. Lines and tubes. 2. Bilateral pleural effusions and patchy bilateral pulmonary infiltrates. Carroll Joel Jr., MD on June 25, 2016 at 3:51 Board Certified Radiologist. This report was verified electronically.
[2016-06-25] MEDS ORDERED: ETOMIDATE 20 MG/10 ML VIAL IV PUSH ONE (04:00)
[2016-06-25] MEDS ORDERED: SUCCINYLCHOLINE CHLORIDE 200 MG/10 ML VIAL IV PUSH ONE (04:00)
[2016-06-25 04:14] LABS: BACTERIA, URINE RARE /hpf; BLOOD, URINE MOD (NEG); COMMENT (UR) CULTURE INDICATED; CULTURE IF INDICATED CULTURE INDICATED; GLUCOSE,URINE NEG (NEG); GRANULAR CAST, URINE 3 /lpf; HYALINE CAST, URINE 1 /lpf (RARE); KETONE, URINE NEG (NEG); MUCUS URINE FEW /lpf (OCC); NITRITE,URINE NEG (NEG); URINE COLOR YELLOW (YELLW/STRAW)
[2016-06-25 04:14] LABS: ANION GAP 7 MEQ/L (5-15); AST (GOT) 39 U/L (15-37); BICARBONATE 27.8 MEQ/L (21.0-32.0); BLOOD UREA NITROGEN 21 MG/DL (7-18); CHLORIDE 99 MEQ/L (98-107); GLOMERULAR FILTRATION RATE 36 ML/MIN (>89); POTASSIUM 4.4 MEQ/L (3.5-5.1); SODIUM (NA) 134 MEQ/L (136-145)
[2016-06-25] MEDS ORDERED: HYDROmorphone HCL PF 1 MG/ML VIAL IV PUSH ONE (04:15)
[2016-06-25 04:17] LABS: APTT (PATIENT) 25.9 SEC (24.3-30.1); INTERNATIONAL NORMALIZED RATIO 1.2 RATIO; PROTHROMBIN TIME - PATIENT 13.4 SEC (9.8-11.6)
[2016-06-25 04:19] LABS: ALKALINE PHOSPHATASE 185 U/L (45-117); ALT (GPT) 27 U/L (12-78)
[2016-06-25] MEDS ORDERED: ASPIRIN 300 MG SUPP RECTAL ONE (04:45)
[2016-06-25] MEDS: RESP: ALBUTEROL 2.5 MG/3 ML NEB (SCH) INH ×3 (04:59→05:48)
[2016-06-25] MEDS ORDERED: RESP: ALBUTEROL 2.5 MG/3 ML NEB (SCH) NEB ONE (05:00)
--- NOTE | 2016-06-25 05:06 | RADRPT ---
EXAM DATE/TIME: 06/25/2016 04:22 [facility] COMPARISON: CT BRAIN W/O CONTRAST, May 29, 2016, 17:04. INDICATIONS : Altered mental status. RADIATION DOSE: 56.35 CTDIvol (mGy) MEDICAL HISTORY : Diabetes mellitus type 2. Asthma. Renal failure. SURGICAL HISTORY : None. ENCOUNTER: Initial ACUITY: 1 day PAIN SCALE: Non-responsive LOCATION: cranial TECHNIQUE: Multiple contiguous axial images were obtained of the head. Using automated exposure control and adj ustment of the mA and/or kV according to patient size, radiation dose was kept as low as reasonably a chievable to obtain optimal diagnostic quality images. FINDINGS: CEREBRUM: Atrophy. The ventricles are normal for age. No evidence of midline shift, mass lesion, hemorrhage or acute infarction. No extra-axial fluid collections are seen. POSTERIOR FOSSA: The cerebellum and brainstem are intact. The 4th ventricle is midline. The cerebellopontine angle i s unremarkable. EXTRACRANIAL: The visualized portion of the orbits is intact. SKULL: The calvaria is intact. No evidence of skull fracture. CONCLUSION: 1. Atrophy. 2. No acute intracranial abnormality. Carroll Joel Jr., MD on June 25, 2016 at 5:03 Board Certified Radiologist. This report was verified electronically.
--- NOTE | 2016-06-25 05:10 | PD ---
HPI Chief Complaint: Respiratory Distress Time Seen by Provider: 03:24 Travel History International Travel<30 days: No Contact w/Intl Traveler<30days: No Traveled to known affect area: No History of Present Illness HPI This is a 66 year old male who has a history of COPD, recent hospitalization for GI bleed, and cirrhosis who presents to the emergency department having woken up at his care home with shortness of breath. Patient provides very limited history. He says he can't take a deep breath. EMS reports that they asked him specifically whether or not he wanted to be intubated if he got sicker and he said yes. The patient was just recently hospitalized in the setting of a GI bleed and had a complicated admission between May and June during which express for osteomyelitis of his knee and he had a significant GI bleed requiring intubation. PFSH Past Medical History Hx Anticoagulant Therapy: Yes (ASA 81 MG PO) Arthritis: Yes (pt says he thinks he has arthritis in L knee) Asthma: Yes Autoimmune Disease: No Blood Disorders: No Anxiety: No Depression: No Heart Rhythm Problems: No Cancer: No Cardiovascular Problems: No High Cholesterol: No Chemotherapy: No Chest Pain: No Congestive Heart Failure: No COPD: No Cerebrovascular Accident: No Diabetes: Yes Patient Takes Glucophage: No Diminished Hearing: No Endocrine: Yes GERD: No Genitourinary: Yes Hiatal Hernia: No Immune Disorder: No Implanted Vascular Access Dvce: Yes Kidney Stones: No Musculoskeletal: Yes Neurologic: No Psychiatric: No Reproductive: No Respiratory: Yes Migraines: No Radiation Therapy: No Renal Failure: Yes Seizures: No Sickle Cell Disease: No Sleep Apnea: No Thyroid Disease: No Ulcer: No Tetanus Vaccination: < 5 Years Influenza Vaccination: Yes Past Surgical History Abdominal Surgery: No AICD: No Arteriovenous Shunt: No Cardiac Surgery: No Ear Surgery: No Endocrine Surgery: No Eye Surgery: Yes (both eyes ) Genitourinary Surgery: No Gynecologic Surgery: No Insulin Pump: No Joint Replacement: No Oral Surgery: No Pacemaker: No Thoracic Surgery: No Other Surgery: Yes (RIGHT KNEE ) Social History Alcohol Use: Yes (2-6 beers daily) Tobacco Use: No Substance Use: No Allergies-Medications (Allergen,Severity, Reaction): Coded Allergies: No Known Allergies (Unverified , 06/25/16) Reported Meds & Prescriptions Reported Meds & Active Scripts Active Tramadol (Tramadol HCl) 50 Mg Tab 50 Mg PO Q6H PRN Poly--Sarah/Iron (Pediatric Multiple Vitamins W/) 1 Frantz Frantz 1 Ml PO DAILY 30 Days Vitamin B-1 (Thiamine HCl) 100 Mg Tab 100 Mg PO DAILY Pantoprazole (Pantoprazole Sodium) 40 Mg Tab 40 Mg PO Q12HR 30 Days Nystop Topical (Nystatin Topical) 100,000 Unit/Gm Powd 1 Applic TOPICAL Q12HR 30 Days Lactulose Liq (Lactulose) 10 Gm/15 Ml Soln 30 Ml PO BID 30 Days Levemir Inj (Insulin Detemir) 1,000 unit/ 10 ML Vial 5 Units SQ Q12HR 30 Days Bumetanide 1 Mg Tab 1 Mg PO DAILY Symbicort Inh (Budesonide/Formoterol Fumarate) 80-4.5 Mcg/Act Aero 2 Puff INH BID 30 Days Amiodarone (Amiodarone HCl) 200 Mg Tab 400 Mg PO Q12H Albuterol Neb (Albuterol Sulfate) 2.5 Mg/3 Ml Neb 2.5 Mg NEB Q2HR NEB PRN 30 Days Acetaminophen 325 Mg Tab 650 Mg PO Q6HR PRN Reported Vancomycin Inj (Vancomycin HCl) 1,000 Mg Inj 1,000 Mg IV DAILY Symbicort Inh (Budesonide/Formoterol Fumarate) 80-4.5 Mcg/Act Aero 2 Puff INH Q12HR Potassium Chloride ER (Potassium Chloride) 10 Meq Cap 10 Meq PO DAILY Humalog Inj (Insulin Human Lispro) 1,000 Unit/10 Ml Vial 1-9 Units SQ ACHS Max dose at bedtime:( )units; sugars< 70,(0)units; sugars 150-199,(1)unit; sugars 200-249,(3)units; sugars 250-299,(5)units; sugars 300-349,(7)units; sugars more than 349,(9)units. Humalog Mix 50-50 Inj (Insulin Lispro Protamine-Lispro 50-50 Inj) 1,000 Unit/10 Ml Vial 3 Units SQ BIDAC Diflucan (Fluconazole) 100 Mg Tab 100 Mg PO DAILY Probiotic (Lactobacillus Acidophilus) 1 Cap Cap 1 Cap PO TIDAC Calcium Carbonate 500 Mg Chew 500 Mg CHEW BID 500 mg calcium carbonate (200 mg elemental calcium) Ventolin Hfa 18 GM Inh (Albuterol Sulfate) 90 Mcg/Act Aer 2 Puff INH Q4-6H PRN Magnesium Oxide 400 Mg Tab 400 Mg PO BID Aspirin Low Dose (Aspirin) 81 Mg Chew 81 Mg CHEW DAILY Review of Systems ROS Limitations: Poor Historian Physical Exam Narrative GENERAL: Chronically ill-appearing SKIN: Dry with skin tenting. HEAD: Atraumatic. Normocephalic. EYES: Pupils equal and round. No injection or drainage. ENT: Dry mucous membranes NECK: Trachea midline. CARDIOVASCULAR: Regular rate and rhythm. No murmur appreciated. 1+ bilateral pitting edema in the lower extremities. RESPIRATORY: Rales, tachypnea, accessory muscle use GASTROINTESTINAL: Abdomen soft, non-tender, nondistended. MUSCULOSKELETAL: No obvious deformities. NEUROLOGICAL: Awake and alert. No obvious cranial nerve deficits. Moving all extremities. Data Data Last Documented VS Vital Signs Date Time Temp Pulse Resp B/P Pulse Ox O2 Delivery O2 Flow Rate FiO2 06/25/16 03:18 100 06/25/16 03:16 35 83 Aerosol Mask 8 06/25/16 03:16 98.4 85 141/65 Orders Complete Blood Count With Diff (06/25/16 03:24) Comprehensive Metabolic Panel (06/25/16 03:24) B-Type Natriuretic Peptide (06/25/16 03:24) D-Dimer (06/25/16 03:24) Act Partial Throm Time (Ptt) (06/25/16 03:24) Prothrombin Time / Inr (Pt) (06/25/16 03:24) Troponin I (06/25/16 03:24) Arterial Blood Gas (Abg) (06/25/16 03:24) Urinalysis - C+S If Indicated (06/25/16 03:24) Blood Culture (06/25/16 03:24) Iv Access Insert/Monitor (06/25/16 03:24) Electrocardiogram (06/25/16 03:24) Ecg Monitoring (06/25/16 03:24) Oximetry (06/25/16 03:24) Oxygen Administration (06/25/16 03:24) Chest, Single Ap (06/25/16 03:24) Sodium Chloride 0.9% Flush (Ns Flush) (06/25/16 03:30) Methylprednisolone So Succ Inj (Solumedr (06/25/16 03:30) Albuterol Neb (Albuterol Neb) (06/25/16 03:30) Bumetanide Inj (Bumex Inj) (06/25/16 03:30) Urinary Catheter Insert/Apply (06/25/16 03:27) Sodium Chloride 0.9% Flush (Ns Flush) (06/25/16 03:30) Restraints Non-Violent RIVER.Q3H (06/25/16 03:27) ^ Orogastric Tube (06/25/16 03:27) Ct Brain W/O Iv Contrast(Rout) (06/25/16 ) Propofol 1000 Mg/100 Ml Inj (Diprivan 10 (06/25/16 03:34) Propofol 1000 Mg/100 Ml Inj (Diprivan 10 (06/25/16 03:45) ^ Infusion (06/25/16 03:42) RASS (06/25/16 03:42) Neurological Rass Scale RIVER.Q2H (06/25/16 03:42) Succinylcholine Inj (Quelicin Inj) (06/25/16 04:00) Etomidate Inj (Amidate Inj) (06/25/16 04:00) Hydromorphone Pf Inj (Dilaudid Pf Inj) (06/25/16 04:15) Ventilation & Perfusion Scan (06/25/16 ) Urine Culture (06/25/16 03:20) Aspirin Supp (Aspirin Supp) (06/25/16 04:45) Albuterol Neb (Albuterol Neb) (06/25/16 05:00) Admit Order (Ed Use Only) (06/25/16 05:15) Labs Laboratory Tests Test 06/25/16 06/25/16 03:20 03:35 Urine Color YELLOW Urine Turbidity HAZY Urine pH 6.0 Urine Specific Aquilla 1.012 Urine Protein 30 mg/dL Urine Glucose (UA) NEG mg/dL Urine Ketones NEG mg/dL Urine Occult Blood MOD Urine Nitrite NEG Urine Bilirubin NEG Urine Urobilinogen 2.0 MG/DL Urine Leukocyte Esterase SMALL Urine RBC 40 /hpf Urine WBC 11 /hpf Urine Amorphous Sediment RARE Urine Bacteria RARE /hpf Urine Hyaline Casts 1 /lpf Urine Granular Casts 3 /lpf Urine Mucus FEW /lpf Microscopic Urinalysis Comment CULTURE INDICATED White Blood Count 10.6 TH/MM3 Red Blood Count 3.64 MIL/MM3 Hemoglobin 10.7 GM/DL Hematocrit 33.6 % Mean Corpuscular Volume 92.2 FL Mean Corpuscular Hemoglobin 29.3 PG Mean Corpuscular Hemoglobin 31.8 % Concent Red Cell Distribution Width 18.2 % Platelet Count 150 TH/MM3 Mean Platelet Volume 7.8 FL Neutrophils (%) (Auto) 53.8 % Lymphocytes (%) (Auto) 32.8 % Monocytes (%) (Auto) 8.9 % Eosinophils (%) (Auto) 3.3 % Basophils (%) (Auto) 1.2 % Neutrophils # (Auto) 5.7 TH/MM3 Lymphocytes # (Auto) 3.5 TH/MM3 Monocytes # (Auto) 0.9 TH/MM3 Eosinophils # (Auto) 0.3 TH/MM3 Basophils # (Auto) 0.1 TH/MM3 CBC Comment DIFF FINAL Differential Comment Prothrombin Time 13.4 SEC Prothromb Time International 1.2 RATIO Ratio Activated Partial 25.9 SEC Thromboplast Time D-Dimer Quantitative (PE/DVT) 12.28 MG/L FEU Sodium Level 134 MEQ/L Potassium Level 4.4 MEQ/L Chloride Level 99 MEQ/L Carbon Dioxide Level 27.8 MEQ/L Anion Gap 7 MEQ/L Blood Urea Nitrogen 21 MG/DL Creatinine 1.86 MG/DL Estimat Glomerular Filtration 36 ML/MIN Rate Random Glucose 154 MG/DL Calcium Level 8.3 MG/DL Total Bilirubin 1.0 MG/DL Aspartate Amino Transf 39 U/L (AST/SGOT) Alanine Aminotransferase 27 U/L (ALT/SGPT) Alkaline Phosphatase 185 U/L Troponin I 0.08 NG/ML B-Type Natriuretic Peptide 427 PG/ML Total Protein 8.4 GM/DL Albumin 1.7 GM/DL [facility] Medical Decision Making Medical Screen Exam Complete: Yes Emergency Medical Condition: Yes Interpretation(s) Afebrile, tachypneic, hypoxic Anemia improved from prior Renal insufficiency similar to prior BNP is 427 Troponin is 0.08 Last 24 hours Impressions Chest X-Ray 06/25/16 0324 Signed Impressions: Service Date/Time: Saturday, June 25, 2016 03:41 - CONCLUSION: 1. Lines and tubes. 2. Bilateral pleural effusions and patchy bilateral pulmonary infiltrates. Carroll Joel Jr., MD Differential Diagnosis COPD exacerbation, congestive heart failure, myocardial infarction, pneumonia, pulmonary embolism Narrative Course This is a 66-year-old male who presents to the emergency department with a history of COPD and severe respiratory distress. On arrival he was using accessory muscles, with an oxygen saturation of 80% despite a nonrebreather and trial of BiPAP. An IV was established. Ultimately the decision was made to intubate the patient. His oxygenation improved once intubated. Chest x-ray demonstrated pleural effusions and patchy pulmonary infiltrates. He was given a milligram of Bumex. He is afebrile and has no leukocytosis, so I doubt pneumonia. He was given methylprednisolone and received serial bronchodilators with EMS and was given additional bronchodilators here. CT scan of the head was obtained which was unremarkable. Patient does have a left bundle-branch on EKG which is new. He was not complaining of chest pain on arrival and his initial troponin is 0.08 so I don't think this reflects a STEMI at this time. I do think the patient's respiratory failure was more secondary to pulmonary edema than to COPD. Pt's d-dimer is 12, so pulmonary embolism is still on the differential, however this may be elevated in the setting of patient's osteomyelitis. Anticoagulation will be deferred until diagnosis can be confirmed due to patient's history of recent gi bleed. Critical Care Narrative Aggregate critical care time was 60 minutes. Time to perform other separately billable procedures was not included in the critical care time. My time did not include minutes spent treating any other patients simultaneously or on activities that did not directly contribute to the patient's treatment. The services I provided to this patient were to treat and/or prevent clinically significant deterioration that could result in: Disability, I provided critical care services requiring my management, as noted below: Chart data review, documentation time, medication orders and management, vital sign assessments/reviewing monitor data, ordering and reviewing lab tests, ordering and interpreting/reviewing x-rays and diagnostic studies, care of the patient and discussion of the patient with the admitting physicians. Procedures Procedure Narrative After the risks and benefits were discussed the following procedure was performed: INTUBATION: The patient was put in optimal position for the procedure. Rapid sequence intubation was initiated by me using 20 milligrams of etomidate IV and 150 milligrams of succinylcholine IV. The patient was intubated with a 8.0 cuffed endotracheal tube. Tube placement was confirmed by visualization of the tube and balloon passing through the cords, capnometry and subsequent chest x- ray. Breath sounds were equal and well aerated bilaterally postintubation. No breath sounds over stomach. Patient tolerated procedure well. Diagnosis Primary Impression: Acute respiratory failure with hypoxia Admitting Information Admitting Physician Requests: Admit Anna Mcwilliams MD June 25, 2016 05:10
[2016-06-25] MEDS ORDERED: SODIUM CHLOR 0.9% 1000 ML INJ 1,000 ML IV SCH ×3 (05:45→07:15)
[2016-06-25] MEDS ORDERED: FUROSEMIDE 40 MG/4 ML VIAL IV PUSH ONE (06:00)
[2016-06-25 06:05] LABS: BLOOD GAS BASE EXCESS 1.1 mmol/L (-2-2); BLOOD GAS CARBOXYHEMOGLOBIN 1.2 % (0-4); BLOOD GAS HCO3 26 mmol/L (22-26); BLOOD GAS METHEMOGLOBIN 0.5 % (0-2); BLOOD GAS O2 HGB SATURATION 98 % (90-100); BLOOD GAS OXYGEN CONTENT 13.5 Vol % (12.0-20.0); BLOOD GAS PCO2 48 mmHg (38-42); BLOOD GAS PO2 325 mmHG (61-120); BLOOD GAS TOTAL HGB 9.2 G/DL (12.0-16.0); CRITICAL VALUE NO; OXYGEN DEVICE VENTILATOR; TEMP CORR TO 98.6
[2016-06-25 06:06] LABS: DRAW SITE LT RADIAL; FIO2 100 %; NUMBER OF ARTERIAL PUNCTURES 1; STAT YES; ULNAR PULSE PRESENT; VENT SETTINGS AC
[2016-06-25] MEDS ORDERED: NOREPINEPHRINE 4 MG/4 ML AMP ONE (06:07)
[2016-06-25] MEDS ORDERED: LIDOCAINE HCL 1% PF 30 ML VIAL ONE (06:14)
[2016-06-25] MEDS ORDERED: TERBUTALINE INJ 1 MG/ML AMP SQ PRN (06:15)
[2016-06-25] MEDS ORDERED: NOREPINEPHRINE-DEXTROSE DRIP 250 ML IV SCH (06:15)
[2016-06-25] MEDS ORDERED: LIDOCAINE HCL 1% PF 30 ML VIAL INFIL ONE (07:00)
[2016-06-25] MEDS ORDERED: PIPERACIL-TAZO 4.5 GM PREMIX 100 ML IV ONE (07:15)
[2016-06-25] MEDS ORDERED: VANCOMYCIN INJ 1,150 MG in SODIUM CHLOR 0.9% 250 ML INJ 250 ML IV ONE (07:15)
--- NOTE | 2016-06-25 07:45 | RADRPT ---
EXAM DATE/TIME: 06/25/2016 07:02 [facility] COMPARISON: CHEST SINGLE AP, June 25, 2016, 3:41. INDICATIONS : Post procedure. central line placement. MEDICAL HISTORY : Renal failure, chronic. Diabetes. SURGICAL HISTORY : None. ENCOUNTER: Initial ACUITY: 1 day PAIN SCORE: Non-responsive. LOCATION: Bilateral chest FINDINGS: A single view of the chest demonstrates bilateral densities and bilateral pleural effusions greater o n the right. Endotracheal tube and nasogastric tube unchanged. Right jugular central line with tip in the SVC. No pneumothorax.. Osseous structures are intact. CONCLUSION: 1. Bilateral pleural effusions and bilateral parenchymal densities greater on the right. 2. Right jugular central line good position without pneumothorax. Pepito Kulkarni MD on June 25, 2016 at 7:42 Board Certified Radiologist. This report was verified electronically.
[2016-06-25 08:41] LABS: LACTIC ACID GHOST NOT REPORTABLE
[2016-06-25] MEDS ORDERED: CHLORHEXIDINE GLUCONATE 2 % 1 PACK (2 CLOTHS) TOP PRN (10:45)
[2016-06-25] MEDS ORDERED: DEXTROSE 50% IN WATER 50 ML VIAL(D50) IV PUSH PRN (10:45)
[2016-06-25] MEDS ORDERED: MISCELLANEOUS NURSING INFORMATION XX SCH (10:45)
[2016-06-25] MEDS ORDERED: GLUCAGON 1 MG/ML VIAL OTHER PRN (10:45)
--- NOTE | 2016-06-25 11:14 | EKG ---
Date Performed: 06/25/2016 Time Performed: 03:28:19 PTAGE: 66 years EKG: Sinus rhythm LEFT BUNDLE BRANCH BLOCK ABNORMAL ECG PREVIOUS TRACING : 06/01/2016 02.28 DOCTOR: Bandar Rodriguez Interpretating Date/Time 06/25/2016 11:12:45
--- NOTE | 2016-06-25 11:26 | RADRPT ---
EXAM DATE/TIME: 06/25/2016 08:33 [facility] COMPARISON: CHEST SINGLE AP, June 25, 2016, 7:02. INDICATIONS : Dyspnea. DOSE: 1.5 mCi Tc99m DTPA 8.8 mCi Tc99m MAA MEDICAL HISTORY : Chronic obstructive pulmonary disease. GI Bleed. SURGICAL HISTORY : Total knee replacement, right. ENCOUNTER: Initial ACUITY: 1 day PAIN SCALE: 0/10 LOCATION: Bilateral chest TECHNIQUE: Following five minutes of tidal breathing of DTPA aerosol, planar images of the lungs were performed in eight projections. The patient was then injected with MAA, and eight-view perfusion scan was perf ormed. FINDINGS: Moderate central airway deposition is present suggesting an inflammatory defect. The perfusion lung scan demonstrates a homogenous pattern of uptake in both lungs. No segmental or s ubsegmental defects are seen. CONCLUSION: Low probability for pulmonary embolism. Moderate ventilatory defect. Alexy Padron MD FACR on June 25, 2016 at 11:24 Board Certified Radiologist. This report was verified electronically.
[2016-06-25] MEDS: INSULIN NovoLIN REGULAR SUPPLEMENTAL SCALE SQ SCH ×2 (12:00→18:00)
[2016-06-25 12:19] LABS: AUTOMATED NEUTROPHIL # 6.4 TH/MM3 (1.8-7.7); BASOPHIL % 0.1 % (0.0-2.0); EOSINOPHIL % 0.1 % (0.0-4.0); HEMATOCRIT 27.1 % (39.0-51.0); HEMO FLAGS DIFF FINAL; LYMPH % 3.2 % (9.0-44.0); LYMPHOCYTE # 0.2 TH/MM3 (1.0-4.8); MEAN CELL VOLUME 90.3 FL (80.0-100.0); MEAN CORPUSCULAR HEMOGLOBIN 29.7 PG (27.0-34.0); MEAN CORPUSCULAR HGB CONC 32.9 % (32.0-36.0); NEUT % 94.6 % (16.0-70.0); PLATELET COUNT 105 TH/MM3 (150-450); RED CELL DISTRIBUTION WIDTH 18.3 % (11.6-17.2); WHITE BLOOD COUNT 6.8 TH/MM3 (4.0-11.0)
[2016-06-25] MEDS: PANTOPRAZOLE SODIUM 40 MG VIAL IV PUSH SCH (12:20)
[2016-06-25 12:58] LABS: BICARBONATE 23.9 MEQ/L (21.0-32.0); POTASSIUM 4.7 MEQ/L (3.5-5.1)
--- NOTE | 2016-06-25 13:00 | MH ---
cc: JESSY,ALABernadette DATE OF ADMISSION: 06/25/2016 : 1950 HISTORY OF PRESENT ILLNESS The patient is a 66-year-old male with a past medical history of diabetes mellitus, bronchial asthma, ETOH use, cirrhosis of the liver, who presented to [facility] ED from a nursing facility for shortness of breath. The patient was recently hospitalized in the end of April, for GI bleed secondary to large duodenal ulcer. In addition he underwent arteriogram and embolization of the right gastric and GDA on May 18. He required multiple blood transfusions, intubation and mechanical ventilation. In addition, the patient had two endoscopies. On arrival to the ED the patient was hypotensive with blood pressure 94/50 and his laboratory data showed mild acute kidney injury with a BUN of 21, creatinine 1.86, lactic acidosis with lactic acid level 3.6 and elevated BNP at 427. In addition, he was found to have elevated D-dimer at 12.28. CT scan of the brain was obtained which showed no atrophy, otherwise no acute intracranial abnormalities. A VQ scan was obtained as well in the ER which showed low probability for pulmonary embolism. His initial chest x-ray from early this morning showed bilateral pleural effusions and patchy bilateral pulmonary infiltrates. Central line was placed by ED physician and a repeat chest x-ray showed right IJ central line in good position, bilateral effusions with bilateral parenchymal densities, right greater than the left. In the ER he was given 2 liters of crystalloids in addition to vancomycin, Zosyn, Solu-Medrol, bronchodilator and Bumex. He was hypotensive in the ER and the patient was placed on Levophed which is currently at three mics. Due to his respiratory distress, the patient was intubated and placed on full mechanical ventilation. When seen he is on Diprivan infusion for sedation. However, the patient is awake, alert and follows commands. ABG post intubation showed a pH of 7.35, CO2 48, pAO2 325, bicarb 26, saturation of 98%. PAST MEDICAL HISTORY Past medical history significant for: 1. Diabetes mellitus, type 2. 2. Asthma. 3. ETOH use. 4. Paroxysmal atrial fibrillation. PAST SURGICAL HISTORY 1. Previous right great toe amputation 3 years ago due to osteomyelitis. 2. Previous laparoscopy on the right knee. ALLERGIES NO KNOWN DRUG ALLERGIES. MEDICATIONS Reported medications include: 1. Symbicort. 2. Lactulose. 3. Amiodarone. 4. Vancomycin. 5. Insulin. 6. Bumex. 7. Aspirin. FAMILY HISTORY Noncontributory. REVIEW OF SYSTEMS As per HPI. The rest of the review of systems limited as the patient is intubated. PHYSICAL EXAMINATION GENERAL: A 66-year-old male intubated for respiratory failure. VITAL SIGNS: Temperature 98.1. Pulse of 75, blood pressure 109/57, saturation 100%. Vent setting assist control rate of 14, tidal volume 550, PEEP of 5, FIO2 60%. HEENT: Atraumatic, normocephalic. Pupil equal, round and reactive to light and accommodation. Extraocular muscles intact. Conjunctivae pink. Nonicteric sclerae. Oral mucosa within normal. NECK: Supple. No JVD, adenopathy or thyromegaly. Trachea in the midline. Orally intubated. CARDIOVASCULAR: Regular rate and rhythm. Normal S1-S2. No murmurs, rubs or gallops noted. PULMONARY: Bilateral equal air entry with few coarse breath sounds, diminished at the bases. ABDOMEN: Soft, nontender, no distension. Positive bowel sounds. EXTREMITIES: No cyanosis, clubbing or edema. NEURO: On Diprivan infusion for sedation. However, he is awake, alert. LABORATORY DATA Sodium of 134, potassium 4.4, chloride 99, CO2 27, BUN 21, creatinine 1.86, glucose 156, lactic acid 3.6, AST 39, troponin 0.08, BNP 427, albumin 1.7, WBC 10.6, hemoglobin 10.7, hematocrit 33, platelet count 150. Urinalysis showed small leukocyte esterase, 11 WBCs, rare bacteria, INR 1.2, PT 13.4 and PTT 25.9. RADIOGRAPHIC STUDIES CT scan of the brain showed atrophy, otherwise no acute intracranial abnormalities. VQ scan showed low probability for PE. A chest x-ray showed bilateral parenchymal densities right greater than left with pleural effusion. EKG Showed sinus rhythm. IMPRESSION 1. Acute hypoxemic respiratory failure. 2. CHF. 3. Lactic acidemia. 4. Recent GI bleed. 5. Anemia. 6. Mild acute kidney injury. 7. Urinary tract infection. 8. Diabetes mellitus. 9. History of bronchial asthma. 10. ETOH use. RECOMMENDATIONS 1. Continue Diprivan infusion for sedation. Monitor neuro status closely and daily sedation vacation when appropriate. 2. Continue with vent support and maintain sats above 92%. 3. Bronchodilators in the form of DuoNeb q. 6 and will initiate an ICU vent bundle. Decrease FIO2 to 40%. 4. Will start spontaneous breathing trials in a.m. as tolerated. 5. Monitor heart rate and blood pressure closely and maintain MAP above 65 mmHg. Hold antihypertensive meds for now. Echocardiogram from prior admission showed EF of 45-50%. Serial lactic acid monitoring. 6. Monitor renal function, I&O's and avoid nephrotoxins. Electrolyte replacement as needed. 7. Keep n.p.o. for now and place on Protonix 40 mg IV daily for GI prophylaxis. Will start nutrition support within the next 24 hours if remains intubated. 8. Continue with broad-spectrum antibiotics in the form of vancomycin and Zosyn. Adjust doses per renal function. Follow up on blood and urine cultures. In addition we will obtain a sputum culture with gram stain. 9. Place on sliding scale insulin with Accu-Chek q. 6-hours for glycemic control. 10. Monitor CBC and for signs of bleeding. 11. GI prophylaxis with Protonix 40 mg daily and DVT prophylaxis with SCDs. Will hold off on chemical anticoagulation prophylaxis secondary to prior GI bleed and anemia requiring blood transfusions. Critical care time 40 minutes. MD ELMO Verdin/EMETERIO /12:03 PM /12:25 PM
--- NOTE | 2016-06-25 13:15 | RADRPT ---
EXAM DATE/TIME: 06/25/2016 12:29 [facility] COMPARISON: No previous studies available for comparison. INDICATIONS : Bilateral arm swelling. MEDICAL HISTORY : Arthritis. Asthma. Renal disease and failure. Diabetes. Anticoagulant therapy, Aspirin 81mg. SURGICAL HISTORY : Bilateral eye prosthesis. 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 Right knee. Blood transfus ions. ENCOUNTER: Initial ACUITY: 1 day PAIN SCORE: 0/10 LOCATION: Bilateral arm. FINDINGS: RIGHT UPPER EXTREMITY: There is spontaneous flow documented in the brachial, basilic, cephalic, axillary, and subclavian vei ns. The vessels are compressible and augmentation response is documented. No filling defects are se en. The flow is phasic with respiration. Direction of flow in the jugular vein is caudal. LEFT UPPER EXTREMITY: There is occlusive thrombus in the left cephalic vein. No thrombus in the jugular, brachial, axillary , and subclavian veins. CONCLUSION: 1. Occlusive thrombus in the left cephalic vein. 2. No deep venous thrombosis from the right arm.. Pepito Kulkarni MD on June 25, 2016 at 13:12 Board Certified Radiologist. This report was verified electronically.
[2016-06-25 13:27] LABS: CALCIUM-PROTEIN CORRECTED 7.1 MG/DL (8.5-10.1)
[2016-06-25] MEDS: ASPIRIN 81 MG CHEW TAB CHEW SCH (14:21)
[2016-06-25] MEDS: THIAMINE HCL 100 MG TAB PO SCH (15:00)
[2016-06-25] MEDS ORDERED: CALCIUM GLUCONATE INJ 1 GM in SODIUM CHLORIDE 0.9% INJ 100 ML IV ONE (15:00)
[2016-06-25] MEDS: PIPERACIL-TAZO 3.375 GM PREMIX 50 ML IV SCH (15:16)
[2016-06-25] MEDS: RESP: ALBUTEROL 2.5 MG/IPRATROPIUM 0.5 MG NEB (SCH) INH ×2 (16:34→19:35)
--- NOTE | 2016-06-25 17:35 | PD.CONS ---
HPI Service Cardiology Consult Requested By ICU Reason for Consult Troponin Primary Care Physician Swapnil Griffith MD History of Present Illness 66 year old male who has a history of COPD, recent hospitalization for GI bleed due to duodenal ulcer, DM, ETOH use and cirrhosis admitted with respiratory failure shortness of breath, hypotensive, intubated in the ER. Hx taken from chart. Blood work in the ER showed acute kidney injury, lactic acidosis, elevated BNP at 427 and troponin's. Thus cardiology has been consulted for further management and evaluation. ER V/Q showed low probability for pulmonary embolism. Chest x-ray showed bilateral pleural effusions and patchy bilateral pulmonary infiltrates concerning for PNA. In the ER he was given 2 liters of fluids, vancomycin, Zosyn, Solu-Medrol, bronchodilator and Bumex. EKG sinus rhythm with LBBB. ECHO done 04/2016 showed EF 45-50%. 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 Diabetes mellitus, type 2. 2. Asthma. 3. ETOH use. 4. Paroxysmal atrial fibrillation. Past Surgical History 1. Previous right great toe amputation 3 years ago due to osteomyelitis. 2. Previous laparoscopy on the right knee. Reported Medications Reported Meds & Active Scripts Active Tramadol (Tramadol HCl) 50 Mg Tab 50 Mg PO Q6H PRN Poly--Sarah/Iron (Pediatric Multiple Vitamins W/) 1 Frantz Frantz 1 Ml PO DAILY 30 Days Vitamin B-1 (Thiamine HCl) 100 Mg Tab 100 Mg PO DAILY Pantoprazole (Pantoprazole Sodium) 40 Mg Tab 40 Mg PO Q12HR 30 Days Nystop Topical (Nystatin Topical) 100,000 Unit/Gm Powd 1 Applic TOPICAL Q12HR 30 Days Lactulose Liq (Lactulose) 10 Gm/15 Ml Soln 30 Ml PO BID 30 Days Levemir Inj (Insulin Detemir) 1,000 unit/ 10 ML Vial 5 Units SQ Q12HR 30 Days Bumetanide 1 Mg Tab 1 Mg PO DAILY Symbicort Inh (Budesonide/Formoterol Fumarate) 80-4.5 Mcg/Act Aero 2 Puff INH BID 30 Days Amiodarone (Amiodarone HCl) 200 Mg Tab 400 Mg PO Q12H Albuterol Neb (Albuterol Sulfate) 2.5 Mg/3 Ml Neb 2.5 Mg NEB Q2HR NEB PRN 30 Days Acetaminophen 325 Mg Tab 650 Mg PO Q6HR PRN Reported Vancomycin Inj (Vancomycin HCl) 1,000 Mg Inj 1,000 Mg IV DAILY Symbicort Inh (Budesonide/Formoterol Fumarate) 80-4.5 Mcg/Act Aero 2 Puff INH Q12HR Potassium Chloride ER (Potassium Chloride) 10 Meq Cap 10 Meq PO DAILY Humalog Inj (Insulin Human Lispro) 1,000 Unit/10 Ml Vial 1-9 Units SQ ACHS Max dose at bedtime:( )units; sugars< 70,(0)units; sugars 150-199,(1)unit; sugars 200-249,(3)units; sugars 250-299,(5)units; sugars 300-349,(7)units; sugars more than 349,(9)units. Humalog Mix 50-50 Inj (Insulin Lispro Protamine-Lispro 50-50 Inj) 1,000 Unit/10 Ml Vial 3 Units SQ BIDAC Diflucan (Fluconazole) 100 Mg Tab 100 Mg PO DAILY Probiotic (Lactobacillus Acidophilus) 1 Cap Cap 1 Cap PO TIDAC Calcium Carbonate 500 Mg Chew 500 Mg CHEW BID 500 mg calcium carbonate (200 mg elemental calcium) Ventolin Hfa 18 GM Inh (Albuterol Sulfate) 90 Mcg/Act Aer 2 Puff INH Q4-6H PRN Magnesium Oxide 400 Mg Tab 400 Mg PO BID Aspirin Low Dose (Aspirin) 81 Mg Chew 81 Mg CHEW DAILY Active Ordered Medications Current Medications Medications (Trade) Dose Ordered Sig/Irene Route Start Time Stop Time Status Last Admin (NS Flush) 2 ml UNSCH PRN IVF 06/25/16 03:30 Sodium Chloride 2 ml 2 ml UNSCH PRN IVF 06/25/16 03:30 Propofol 100 ml @ 0 mls/hr TITRATE IV 06/25/16 03:45 06/25/16 15:16 (Levophed-Dextrose Drip) 250 ml @ 0 mls/hr TITRATE IV 06/25/16 06:15 06/25/16 07:01 (Brethine Inj) 1 mg UNSCH PRN SQ 5/8/17 06:15 Miscellaneous Information 1 Q361D XX 06/25/16 10:45 (Chlorhexidine 2% Cloth) 3 pack Taper DAILY@04 TOP 06/26/16 04:00 06/22/17 03:59 (Chlorhexidine 2% Cloth) 3 pack UNSCH PRN TOP 06/25/16 10:45 (Protonix Inj) 40 mg Q24H IV PUSH 06/25/16 12:00 06/25/16 12:20 (D50w (Vial) Inj) 25 ml UNSCH PRN IV PUSH 06/25/16 10:45 (Glucagon Inj) 1 mg UNSCH PRN OTHER 06/25/16 10:45 Insulin Human Regular 1 1 Q6H SQ 06/25/16 12:00 06/25/16 12:00 (Zosyn 3.375 Gm Premix) 50 ml @ 100 mls/hr Q8H IV 06/25/16 16:00 06/25/16 15:16 (Aspirin Chew) 81 mg DAILY CHEW 06/25/16 14:00 06/25/16 14:21 (Vitamin B1) 100 mg DAILY PO 06/25/16 15:00 06/25/16 15:00 Physical Exam Vital Signs Vital Signs Date Time Temp Pulse Resp B/P Pulse Ox O2 Delivery O2 Flow Rate FiO2 06/25/16 16:34 10 40 06/25/16 16:30 97.9 63 90/52 97 06/25/16 16:00 64 06/25/16 16:00 97.9 65 102/52 97 06/25/16 16:00 40 06/25/16 15:30 97.7 65 103/57 97 06/25/16 15:00 65 105/59 06/25/16 14:00 67 98/52 97 06/25/16 14:00 67 06/25/16 13:30 67 89/51 96 06/25/16 13:00 68 105/55 95 06/25/16 12:00 60 06/25/16 12:00 72 100/55 95 06/25/16 12:00 72 06/25/16 11:45 75 109/57 99 06/25/16 11:30 79 126/62 97 06/25/16 10:32 76 20 116/56 97 Ventilator 50 06/25/16 09:50 98.1 76 18 121/64 Ventilator 60 06/25/16 09:20 92 60 06/25/16 09:15 96 50 06/25/16 08:36 98.3 74 14 94/50 Ventilator 60 06/25/16 07:13 98.2 77 14 118/58 Ventilator 60 06/25/16 06:30 76 14 95/52 100 Ventilator 100 06/25/16 06:15 74 14 82/50 100 Ventilator 100 06/25/16 06:00 60 06/25/16 06:00 98.4 75 14 79/47 100 Ventilator 100 06/25/16 05:28 100 60 06/25/16 05:25 100 60 06/25/16 05:00 76 14 94/53 100 Ventilator 100 06/25/16 04:48 100 70 06/25/16 04:45 74 14 73/46 100 Ventilator 100 06/25/16 04:38 100 100 06/25/16 04:00 98.6 76 14 90/54 100 Ventilator 100 06/25/16 03:22 95 100 06/25/16 03:18 100 06/25/16 03:16 35 83 Aerosol Mask 8 06/25/16 03:16 98.4 85 35 141/65 83 06/25/16 03:16 93 Aerosol Mask 8 06/25/16 03:16 85 35 83 Aerosol Mask Physical Exam GENERAL:Sedated intubated SKIN: Warm and dry. HEAD: Normocephalic. EYES: No scleral icterus. No injection or drainage. NECK: Supple, trachea midline. No JVD or lymphadenopathy. CARDIOVASCULAR: Regular rate and rhythm without murmurs, gallops, or rubs. RESPIRATORY: Breath sounds equal bilaterally. No accessory muscle use. GASTROINTESTINAL: Abdomen soft, non-tender, nondistended. EXTREMITIES: No cyanosis, or edema. Laboratory Laboratory Tests Test 06/25/16 06/25/16 06/25/16 06/25/16 03:20 03:35 04:42 06:25 Urine Color YELLOW Urine Turbidity HAZY Urine pH 6.0 Urine Specific [place] 1.012 Urine Protein 30 Urine Glucose (UA) NEG Urine Ketones NEG Urine Occult Blood MOD Urine Nitrite NEG Urine Bilirubin NEG Urine Urobilinogen 2.0 Urine Leukocyte Esterase SMALL Urine RBC 40 Urine WBC 11 Urine Amorphous Sediment RARE Urine Bacteria RARE Urine Hyaline Casts 1 Urine Granular Casts 3 Urine Mucus FEW Microscopic Urinalysis Comment CULTURE INDICATED White Blood Count 10.6 Red Blood Count 3.64 Hemoglobin 10.7 Hematocrit 33.6 Mean Corpuscular Volume 92.2 Mean Corpuscular Hemoglobin 29.3 Mean Corpuscular Hemoglobin 31.8 Concent Red Cell Distribution Width 18.2 Platelet Count 150 Mean Platelet Volume 7.8 Neutrophils (%) (Auto) 53.8 Lymphocytes (%) (Auto) 32.8 Monocytes (%) (Auto) 8.9 Eosinophils (%) (Auto) 3.3 Basophils (%) (Auto) 1.2 Neutrophils # (Auto) 5.7 Lymphocytes # (Auto) 3.5 Monocytes # (Auto) 0.9 Eosinophils # (Auto) 0.3 Basophils # (Auto) 0.1 CBC Comment DIFF FINAL Differential Comment Prothrombin Time 13.4 Prothromb Time International 1.2 Ratio Activated Partial 25.9 Thromboplast Time D-Dimer Quantitative (PE/DVT) 12.28 Sodium Level 134 Potassium Level 4.4 Chloride Level 99 Carbon Dioxide Level 27.8 Anion Gap 7 Blood Urea Nitrogen 21 Creatinine 1.86 Estimat Glomerular Filtration 36 Rate Random Glucose 154 Calcium Level 8.3 Total Bilirubin 1.0 Aspartate Amino Transf 39 (AST/SGOT) Alanine Aminotransferase 27 (ALT/SGPT) Alkaline Phosphatase 185 Troponin I 0.08 B-Type Natriuretic Peptide 427 Total Protein 8.4 Albumin 1.7 Blood Gas Puncture Site LT RADIAL Blood Gas Patient Temperature 98.6 Blood Gas HCO3 26 Blood Gas Base Excess 1.1 Blood Gas Oxygen Saturation 98 Arterial Blood pH 7.35 Arterial Blood Partial 48 Pressure CO2 Arterial Blood Partial 325 Pressure O2 Arterial Blood Oxygen Content 13.5 Arterial Blood 1.2 Carboxyhemoglobin Arterial Blood Methemoglobin 0.5 Blood Gas Hemoglobin 9.2 Oxygen Delivery Device VENTILATOR Blood Gas Ventilator Setting AC Blood Gas Inspired Oxygen 100 Lactic Acid Level 3.6 Test 06/25/16 06/25/16 06/25/16 08:48 11:26 11:40 Lactic Acid Level 3.6 Nasal Screen MRSA (PCR) MRSA NOT DETECTED VRE Surveillance Screen POSITIVE White Blood Count 6.8 Red Blood Count 3.00 Hemoglobin 8.9 Hematocrit 27.1 Mean Corpuscular Volume 90.3 Mean Corpuscular Hemoglobin 29.7 Mean Corpuscular Hemoglobin 32.9 Concent Red Cell Distribution Width 18.3 Platelet Count 105 Mean Platelet Volume 8.0 Neutrophils (%) (Auto) 94.6 Lymphocytes (%) (Auto) 3.2 Monocytes (%) (Auto) 2.0 Eosinophils (%) (Auto) 0.1 Basophils (%) (Auto) 0.1 Neutrophils # (Auto) 6.4 Lymphocytes # (Auto) 0.2 Monocytes # (Auto) 0.1 Eosinophils # (Auto) 0.0 Basophils # (Auto) 0.0 CBC Comment DIFF FINAL Differential Comment Sodium Level 135 Potassium Level 4.7 Chloride Level 101 Carbon Dioxide Level 23.9 Anion Gap 10 Blood Urea Nitrogen 25 Creatinine 1.98 Estimat Glomerular Filtration 34 Rate Random Glucose 283 Calcium Level 7.1 Protein Corrected Calcium 7.1 Total Creatine Kinase 83 Troponin I 1.68 Total Protein 7.1 Date/Time Procedure Status Source Growth 06/25/16 03:35 Aerobic Blood Culture Received Blood Peripheral Pending 06/25/16 03:35 Anaerobic Blood Culture Received Blood Peripheral Pending 06/25/16 03:20 Urine Culture Received Urine Clean Catch Pending Result Diagram: 06/25/16 1140 06/25/16 1140 Imaging Last Impressions Chest X-Ray 06/25/16 0324 Signed Impressions: Service Date/Time: Saturday, June 25, 2016 03:41 - CONCLUSION: 1. Lines and tubes. 2. Bilateral pleural effusions and patchy bilateral pulmonary infiltrates. Carroll Joel Jr., MD Upper Extremity Ultrasound 06/25/16 0000 Signed Impressions: Service Date/Time: Saturday, June 25, 2016 12:29 - CONCLUSION: 1. Occlusive thrombus in the left cephalic vein. 2. No deep venous thrombosis from the right arm.. Pepito Kulkarni MD Lung Scan-V Nuclear Medicine 06/25/16 0000 Signed Impressions: Service Date/Time: Saturday, June 25, 2016 08:33 - CONCLUSION: Low probability for pulmonary embolism. Moderate ventilatory defect. Alexy Padron MD FACR Head CT 06/25/16 0000 Signed Impressions: Service Date/Time: Saturday, June 25, 2016 04:22 - CONCLUSION: 1. Atrophy. 2. No acute intracranial abnormality. Carroll Joel Jr., MD Assessment and Plan Problem List: (1) Elevated troponin Assessment and Plan: Elevated troponin in a 66 y/o M with recent GI bleeding, cirrhosis and chronic anemia presents with hypotension and SOB. Hypotension DDx infection vs. cardiogenic. Given recent bleeding requiring multiple transfusion and still ongoing anemia and thrombocytopenia unfortunately he is not a candidate for LHC/PCI at this time, even DAPT is can be problematic. Thus recommend aggressive medical management for CAD risk factors and supportive care for now. (2) Acute respiratory failure with hypoxia (3) Cirrhosis (4) Thrombocytopenia (5) GI bleed (6) JOSE (acute kidney injury) Problem Qualifiers (1) Cirrhosis: Bandar Rodriguez MD June 25, 2016 17:34
--- NOTE | 2016-06-25 19:02 | ECHLIM ---
Study Study Date:06/25/2016 STUDY CONCLUSIONS SUMMARY - Left ventricle: The cavity size was normal. Wall thickness was normal. Systolic function was moderately reduced. The estimated ejection fraction was in the range of 35% to 40%. Wall motion was normal; there were no regional wall motion abnormalities. - Tricuspid valve: Mild regurgitation. - Pulmonary arteries: PA peak pressure: 33mm Hg (S). - Pericardium, extracardiac: A pericardial effusion was identified. Features were not consistent with tamponade physiology. If LV function is below 40, please consider prescribing an ACEI or ARB or document rationale for non-use. PROCEDURE DATA STUDY STATUS: Elective. Procedure: Transthoracic echocardiography. Image quality was good. Scanning was performed from the parasternal, apical, and subcostal acoustic windows. Study completion: The patient tolerated the procedure well. Transthoracic echocardiography. M-mode, complete 2D, complete spectral Doppler, and color Doppler. Patient status: Inpatient. CARDIAC ANATOMY LEFT VENTRICLE: The cavity size was normal. Wall thickness was normal. Systolic function was moderately reduced. The estimated ejection fraction was in the range of 35% to 40%. Wall motion was normal; there were no regional wall motion abnormalities. AORTIC VALVE: Trileaflet; normal thickness leaflets. Doppler: Transvalvular velocity was within the normal range. There was no stenosis. No regurgitation. Mean gradient: 14mm Hg (S). Peak gradient: 27mm Hg (S). AORTA: Aortic root: The aortic root was normal in size. MITRAL VALVE: Structurally normal valve. Doppler: Transvalvular velocity was within the normal range. There was no evidence for stenosis. No regurgitation. LEFT ATRIUM: The atrium was normal in size. RIGHT VENTRICLE: The cavity size was normal. Wall thickness was normal. PULMONIC VALVE: Doppler: Transvalvular velocity was within the normal range. There was no evidence for stenosis. No regurgitation. TRICUSPID VALVE: Structurally normal valve. Doppler: Transvalvular velocity was within the normal range. Mild regurgitation. PULMONARY ARTERY: The main pulmonary artery was normal-sized. Systolic pressure was within the normal range. RIGHT ATRIUM: The atrium was normal in size. PERICARDIUM: A pericardial effusion was identified. Doppler: Features were not consistent with tamponade physiology. SYSTEMIC VEINS: Inferior vena cava: The vessel was normal in size. BASIC MEASUREMENTS ADULT NORMAL Left ventricle LV internal dimension, ED, chordal level, *55.5 mm 43-52 PLAX LV internal dimension, ES, chordal level, *47.1 mm 23-38 PLAX Fractional shortening, chordal level, PLAX *15 % >29 LV posterior wall thickness, ED 11 mm IVS/LVPW ratio, ED 1.06 <1.3 Ventricular septum Septal thickness, ED 11.7 mm Right ventricle RV internal dimension, ED, PLAX 22.4 mm 19-38 DOPPLER MEASUREMENTS ADULT NORMAL Main pulmonary artery Pressure, S *33 mm Hg =30 Aortic valve Peak velocity, S 259 cm/s Mean velocity, S 176 cm/s VTI, S 55 cm Mean gradient, S 14 mm Hg Peak gradient, S 27 mm Hg Tricuspid valve Regurgitant peak velocity 240 cm/s Peak RV-RA gradient, S 23 mm Hg Maximal regurgitant velocity 240 cm/s Systemic veins Estimated CVP 10 mm Hg Right ventricle RV pressure, S *33 mm Hg <30 LEGEND: Mean values are shown as u=mean value. Asterisk (*) cho values outside specified normal range. Amended Bandar Rodriguez [id number]
[2016-06-25] MEDS ORDERED: HEPARIN SODIUM - SQ 10,000 UNITS/ML VIAL SQ SCH (21:00)
--- NOTE | 2016-06-25 23:40 | RADRPT ---
EXAM DATE/TIME: 06/25/2016 22:41 [facility] COMPARISON: US KIDNEY/RENAL/BLADDER, May 15, 2016, 10:50. INDICATIONS : Acute kidney injury. MEDICAL HISTORY : Arthritis. Asthma. Renal disease and failure. Diabetes. Anticoagulant therapy, Aspirin 81mg. SURGICAL HISTORY : Bilateral eye prosthesis. 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 Right knee. Blood transfus ions. ENCOUNTER: Subsequent ACUITY: 1 day PAIN SCORE: 0/10 LOCATION: Bilateral flank MEASUREMENTS: RIGHT KIDNEY: 10.4 x 5.9 x 5.0 cm LEFT KIDNEY: 11.3 x 5.8 x 4.9 cm FINDINGS: RIGHT KIDNEY: Renal cortex is normal in thickness and echotexture. No hydronephrosis, stone, or mass. LEFT KIDNEY: Renal cortex is normal in thickness and echotexture. No hydronephrosis, stone, or mass. BLADDER: Fully present and totally decompressed. Small volume ascites. Bilateral pleural effusions. Splenomegaly. CONCLUSION: 1. Unremarkable kidneys. 2. Small volume ascites. 3. Bilateral pleural effusions. 4. Splenomegaly. Carroll Joel Jr., MD on June 25, 2016 at 23:37 Board Certified Radiologist. This report was verified electronically.
[2016-06-26] VITALS (33 sets, daily range): BP systolic 93–141; BP diastolic 51–63; PULSE 61–79; RESP 14–20; TEMP 97.7–98.2; O2SAT 80–100
[2016-06-26] MEDS: PIPERACIL-TAZO 3.375 GM PREMIX 50 ML IV SCH ×4 (01:17→23:19)
[2016-06-26] MEDS: INSULIN NovoLIN REGULAR SUPPLEMENTAL SCALE SQ SCH ×5 (01:18→23:19)
[2016-06-26] MEDS: PROPOFOL 1000 MG/100 ML INJ 100 ML IV SCH (03:06)
[2016-06-26] MEDS: RESP: ALBUTEROL 2.5 MG/IPRATROPIUM 0.5 MG NEB (SCH) INH ×4 (03:47→19:44)
[2016-06-26] MEDS: CHLORHEXIDINE GLUCONATE 2 % 1 PACK (2 CLOTHS) TOP SCH (04:00)
[2016-06-26 06:18] LABS: AUTOMATED NEUTROPHIL # 4.8 TH/MM3 (1.8-7.7); BASOPHIL % 0.2 % (0.0-2.0); HEMATOCRIT 23.4 % (39.0-51.0); LYMPH % 5.1 % (9.0-44.0); LYMPHOCYTE # 0.3 TH/MM3 (1.0-4.8); MEAN CELL VOLUME 89.8 FL (80.0-100.0); MEAN CORPUSCULAR HEMOGLOBIN 29.4 PG (27.0-34.0); MEAN CORPUSCULAR HGB CONC 32.7 % (32.0-36.0); MONO % 5.6 % (0.0-8.0); NEUT % 89.1 % (16.0-70.0); PLATELET COUNT 53 TH/MM3 (150-450); RED CELL DISTRIBUTION WIDTH 17.9 % (11.6-17.2); WHITE BLOOD COUNT 5.4 TH/MM3 (4.0-11.0)
[2016-06-26 06:26] LABS: HEMO FLAGS AUTO DIFF
[2016-06-26 06:47] LABS: BICARBONATE 27.3 MEQ/L (21.0-32.0); MAGNESIUM 2.3 MG/DL (1.5-2.5); POTASSIUM 4.2 MEQ/L (3.5-5.1)
--- NOTE | 2016-06-26 07:40 | HHI.CCPN ---
Subjective Remarks/Hospital Course The patient is a 66-year-old male with a past medical history of diabetes mellitus, bronchial asthma, ETOH use, cirrhosis of the liver, who presented to [facility] ED from a nursing facility for shortness of breath. The patient was recently hospitalized in the end of April, for GI bleed secondary to large duodenal ulcer. In addition he underwent arteriogram and embolization of the right gastric and GDA on May 18. He required multiple blood transfusions, intubation and mechanical ventilation. In addition, the patient had two endoscopies. On arrival to the ED the patient was hypotensive with blood pressure 94/50 and his laboratory data showed mild acute kidney injury with a BUN of 21, creatinine 1.86, lactic acidosis with lactic acid level 3.6 and elevated BNP at 427. In addition, he was found to have elevated D -dimer at 12.28. CT scan of the brain was obtained which showed no atrophy, otherwise no acute intracranial abnormalities. A VQ scan was obtained as well in the ER which showed low probability for pulmonary embolism. His initial chest x-ray from early this morning showed bilateral pleural effusions and patchy bilateral pulmonary infiltrates. Central line was placed by ED physician and a repeat chest x-ray showed right IJ central line in good position , bilateral effusions with bilateral parenchymal densities, right greater than the left. In the ER he was given 2 liters of crystalloids in addition to vancomycin, Zosyn, Solu-Medrol, bronchodilator and Bumex. He was hypotensive in the ER and the patient was placed on Levophed which is currently at three mics. Due to his respiratory distress, the patient was intubated and placed on full mechanical ventilation. When seen he is on Diprivan infusion for sedation. However, the patient is awake, alert and follows commands. ABG post intubation showed a pH of 7.35, CO2 48, pAO2 325, bicarb 26, saturation of 98%. 06/26 Patient is sedated with Diprivan. Afebrile. Off Levophed. Objective Vital Signs Date Time Temp Pulse Resp B/P Pulse Ox O2 Delivery O2 Flow Rate FiO2 06/26/16 06:00 62 06/26/16 04:00 40 06/26/16 04:00 97.7 14 94/55 96 06/25/16 10:32 Ventilator 06/25/16 03:16 8 Intake and Output 06/25/16 06/25/16 06/26/16 08:00 16:00 00:00 Intake Total 141 ml 290 ml Output Total 100 ml 465 ml 250 ml Balance -100 ml -324 ml 40 ml Result Diagram: 06/26/16 0541 06/26/16 0541 Other Results Laboratory Tests Test 06/25/16 06/25/16 06/25/16 06/25/16 08:48 11:26 11:40 17:55 Lactic Acid Level 3.6 mmol/L 1.8 mmol/L Nasal Screen MRSA (PCR) MRSA NOT DETECTED VRE Surveillance Screen POSITIVE White Blood Count 6.8 TH/MM3 Red Blood Count 3.00 MIL/MM3 Hemoglobin 8.9 GM/DL Hematocrit 27.1 % Mean Corpuscular Volume 90.3 FL Mean Corpuscular Hemoglobin 29.7 PG Mean Corpuscular Hemoglobin 32.9 % Concent Red Cell Distribution Width 18.3 % Platelet Count 105 TH/MM3 Mean Platelet Volume 8.0 FL Neutrophils (%) (Auto) 94.6 % Lymphocytes (%) (Auto) 3.2 % Monocytes (%) (Auto) 2.0 % Eosinophils (%) (Auto) 0.1 % Basophils (%) (Auto) 0.1 % Neutrophils # (Auto) 6.4 TH/MM3 Lymphocytes # (Auto) 0.2 TH/MM3 Monocytes # (Auto) 0.1 TH/MM3 Eosinophils # (Auto) 0.0 TH/MM3 Basophils # (Auto) 0.0 TH/MM3 CBC Comment DIFF FINAL Differential Comment Sodium Level 135 MEQ/L Potassium Level 4.7 MEQ/L Chloride Level 101 MEQ/L Carbon Dioxide Level 23.9 MEQ/L Anion Gap 10 MEQ/L Blood Urea Nitrogen 25 MG/DL Creatinine 1.98 MG/DL Estimat Glomerular Filtration 34 ML/MIN Rate Random Glucose 283 MG/DL Calcium Level 7.1 MG/DL Protein Corrected Calcium 7.1 MG/DL Total Creatine Kinase 83 U/L Troponin I 1.68 NG/ML 1.40 NG/ML Total Protein 7.1 GM/DL Test 06/26/16 05:41 White Blood Count 5.4 TH/MM3 Red Blood Count 2.60 MIL/MM3 Hemoglobin 7.6 GM/DL Hematocrit 23.4 % Mean Corpuscular Volume 89.8 FL Mean Corpuscular Hemoglobin 29.4 PG Mean Corpuscular Hemoglobin 32.7 % Concent Red Cell Distribution Width 17.9 % Platelet Count 53 TH/MM3 Mean Platelet Volume 8.0 FL Neutrophils (%) (Auto) 89.1 % Lymphocytes (%) (Auto) 5.1 % Monocytes (%) (Auto) 5.6 % Eosinophils (%) (Auto) 0.0 % Basophils (%) (Auto) 0.2 % Neutrophils # (Auto) 4.8 TH/MM3 Lymphocytes # (Auto) 0.3 TH/MM3 Monocytes # (Auto) 0.3 TH/MM3 Eosinophils # (Auto) 0.0 TH/MM3 Basophils # (Auto) 0.0 TH/MM3 CBC Comment AUTO DIFF Sodium Level 138 MEQ/L Potassium Level 4.2 MEQ/L Chloride Level 104 MEQ/L Carbon Dioxide Level 27.3 MEQ/L Anion Gap 7 MEQ/L Blood Urea Nitrogen 35 MG/DL Creatinine 2.06 MG/DL Estimat Glomerular Filtration 32 ML/MIN Rate Random Glucose 189 MG/DL Calcium Level 7.7 MG/DL Phosphorus Level 4.0 MG/DL Magnesium Level 2.3 MG/DL Imaging Last Impressions Chest X-Ray 06/25/16 0324 Signed Impressions: Service Date/Time: Saturday, June 25, 2016 03:41 - CONCLUSION: 1. Lines and tubes. 2. Bilateral pleural effusions and patchy bilateral pulmonary infiltrates. Carroll Joel Jr., MD Upper Extremity Ultrasound 06/25/16 Signed Impressions: Service Date/Time: Saturday, June 25, 2016 12:29 - CONCLUSION: 1. Occlusive thrombus in the left cephalic vein. 2. No deep venous thrombosis from the right arm.. Pepito Kulkarni MD Renal Ultrasound 06/25/16 Signed Impressions: Service Date/Time: Saturday, June 25, 2016 22:41 - CONCLUSION: 1. Unremarkable kidneys. 2. Small volume ascites. 3. Bilateral pleural effusions. 4. Splenomegaly. Carroll Joel Jr., MD Lung Scan- Nuclear Medicine 06/25/16 Signed Impressions: Service Date/Time: Saturday, June 25, 2016 08:33 - CONCLUSION: Low probability for pulmonary embolism. Moderate ventilatory defect. Alexy Padron MD FACR Head CT 06/25/16 Signed Impressions: Service Date/Time: Saturday, June 25, 2016 04:22 - CONCLUSION: 1. Atrophy. 2. No acute intracranial abnormality. Carroll Joel Jr., MD Objective Remarks GENERAL: Patient is 66 yo intubated and sedated SKIN: Warm and dry. HEAD: Normocephalic. EYES: No scleral icterus. No injection or drainage. NECK: Supple, trachea midline. No JVD or lymphadenopathy. Orally intubated CARDIOVASCULAR: Regular rate and rhythm without murmurs, gallops, or rubs. RESPIRATORY: Breath sounds equal bilaterally. No accessory muscle use. GASTROINTESTINAL: Abdomen soft, non-tender, nondistended. MUSCULOSKELETAL: No cyanosis, or edema. Neuro: Sedated A/P Assessment and Plan 1. VDRF 2. CHF. 3. Lactic acidemia - resolved 4. Recent GI bleed. 5. Anemia. 6. JOSE 7. Urinary tract infection. 8. Diabetes mellitus. 9. History of bronchial asthma. 10. ETOH use. 11 Occlusive thrombus in left cephalic vein 12. Elevated trop Plan: Neuro: On Diprivan infusion for sedation. Monitor neuro status and daily sedation vacation Pulm Continue with vent support and maintain sats above 92%. Bronchodilators, ICU vent bundle. Start SBT daily as ol. Check CXR V/Q scan- low prob PE CV: Monitor HR and BP and maintain MAP>65mmHg. On ASA 81mg daily. Lactic acid 1.8 today Echo showed EF 35-40%, no RWMA, pericardial effusion with no tamponade physiology Cards is following- Dr. Byrne- recommend medical management. Not on AC given recent GI bleed. : Monitor renal function, I&O's and avoid nephrotoxins. Electrolyte replacement as needed. Renal function slightly worse today with Cr: 2.0 from 1.86 on arrival. Renal US: No hydro. GI: Keep n.p.o. on Protonix 40 mg IV daily for GI prophylaxis. Starts tube feeds today if remains intubated. ID: Continue with abx (Zosyn) Vanco x 1 dose yesterday monitor for signs of infections ( Fever, WBC) follow up on cxs. Check sputum cx. Endo: SSI with Accu-Chek q. 6-hours for glycemic control. Heme: Monitor CBC GI prophylaxis with Protonix 40 mg daily and DVT prophylaxis with SCDs. Not on chemical anticoagulation prophylaxis secondary to recent GI bleed Doppler US UE : Occlusive thrombus left cephalic vein. Level 3 Vasquez,Alaa MD June 26, 2016 07:40
[2016-06-26] MEDS: THIAMINE HCL 100 MG TAB PO SCH (08:04)
[2016-06-26] MEDS: ASPIRIN 81 MG CHEW TAB CHEW SCH (08:04)
[2016-06-26] MEDS: SODIUM CHLORIDE 0.9% FLUSH 10 ML FLUSH IVF PRN (08:05)
[2016-06-26 08:16] LABS: AUTOMATED NEUTROPHIL # 5.9 TH/MM3 (1.8-7.7); HEMATOCRIT 24.8 % (39.0-51.0); LYMPH % 7.5 % (9.0-44.0); LYMPHOCYTE # 0.5 TH/MM3 (1.0-4.8); MEAN CELL VOLUME 90.5 FL (80.0-100.0); MEAN CORPUSCULAR HEMOGLOBIN 29.2 PG (27.0-34.0); MEAN CORPUSCULAR HGB CONC 32.3 % (32.0-36.0); MONO % 3.7 % (0.0-8.0); NEUT % 88.8 % (16.0-70.0); PLATELET COUNT 64 TH/MM3 (150-450); RED BLOOD COUNT 2.74 MIL/MM3 (4.50-5.90); RED CELL DISTRIBUTION WIDTH 18.2 % (11.6-17.2); WHITE BLOOD COUNT 6.6 TH/MM3 (4.0-11.0)
[2016-06-26 08:22] LABS: HEMO FLAGS AUTO DIFF
[2016-06-26 08:30] LABS: ACANTHOCYTES OCC (NORMAL); KERATOCYTES OCC (NORMAL)
[2016-06-26 08:31] LABS: OVALOCYTES 1+ (NORMAL); PLATELET ESTIMATE SMEAR LOW (NORMAL); PLATELET MORPHOLOGY ENLARGED (NORMAL); SCAN/DIFF AUTO DIFF CONFIRMED
--- NOTE | 2016-06-26 08:37 | RADRPT ---
EXAM DATE/TIME: 06/26/2016 07:52 [place] COMPARISON: CHEST SINGLE AP, June 25, 2016, 7:02. INDICATIONS : Respiratory failure. MEDICAL HISTORY : Renal failure, chronic. Diabetes. SURGICAL HISTORY : None. ENCOUNTER: Subsequent ACUITY: 3 days PAIN SCORE: 0/10 LOCATION: Bilateral chest FINDINGS: A single view of the chest demonstrates persistent bilateral pleural effusions, left greater than rig ht. There may actually be some interval improvement on the right side. Increased interstitial marking s suggest some degree of vascular congestion or volume overload, unchanged. Heart size is upper limit s of normal. Life-support tubes are all stable including right IJ central venous catheter, endotrache al tube and nasogastric tubes. There is some deformity of the distal right clavicle possibly represen ting an old injury. Degenerative spurring of the dorsal spine. Osseous structures are otherwise intac t. CONCLUSION: Bilateral pleural effusions. There may be some minimal worsening of the left and slight interval impr ovement on the right. Persistent increased interstitial markings suggesting some degree of vascular congestion/volume overl oad. Stable bibasilar atelectatic changes. Stable position of life-support tubes. Wilver Mendoza MD on June 26, 2016 at 8:30 Board Certified Radiologist. This report was verified electronically.
[2016-06-26 08:55] LABS: PLATELET ESTIMATE SMEAR LOW (NORMAL); PLATELET MORPHOLOGY NORMAL (NORMAL); SCAN/DIFF AUTO DIFF CONFIRMED
[2016-06-26 10:16] LABS: INTERNATIONAL NORMALIZED RATIO 1.3 RATIO; PROTHROMBIN TIME - PATIENT 14.4 SEC (9.8-11.6)
[2016-06-26 10:21] LABS: INDIRECT BILIRUBIN 0.3 MG/DL (0.0-0.8); TOTAL BILIRUBIN ADULT 0.7 MG/DL (0.2-1.0)
--- NOTE | 2016-06-26 11:11 | PD.CARD.PN ---
Subjective Subjective Remarks No overnight events No complaints Intubated, tolerating CPAP Anemic Worsening renal function JOSE Objective Medications Current Medications Medications (Trade) Dose Ordered Sig/Irene Route Start Time Stop Time Status Last Admin (NS Flush) 2 ml UNSCH PRN IVF 06/25/16 03:30 06/26/16 08:05 Sodium Chloride 2 ml 2 ml UNSCH PRN IVF 06/25/16 03:30 Propofol 100 ml @ 0 mls/hr TITRATE IV 06/25/16 03:45 06/26/16 03:06 (Levophed-Dextrose Drip) 250 ml @ 0 mls/hr TITRATE IV 06/25/16 06:15 06/25/16 07:01 (Brethine Inj) 1 mg UNSCH PRN SQ 06/25/16 06:15 Miscellaneous Information 1 Q361D XX 06/25/16 10:45 (Chlorhexidine 2% Cloth) 3 pack Taper DAILY@04 TOP 06/26/16 04:00 06/22/17 03:59 06/26/16 04:00 (Chlorhexidine 2% Cloth) 3 pack UNSCH PRN TOP 06/25/16 10:45 (Protonix Inj) 40 mg Q24H IV PUSH 06/25/16 12:00 06/25/16 12:20 (D50w (Vial) Inj) 25 ml UNSCH PRN IV PUSH 06/25/16 10:45 (Glucagon Inj) 1 mg UNSCH PRN OTHER 06/25/16 10:45 Insulin Human Regular 1 1 Q6H SQ 06/25/16 12:00 06/26/16 05:44 (Zosyn 3.375 Gm Premix) 50 ml @ 100 mls/hr Q8H IV 06/25/16 16:00 06/26/16 08:04 (Aspirin Chew) 81 mg DAILY CHEW 06/25/16 14:00 06/26/16 08:04 (Vitamin B1) 100 mg DAILY PO 06/25/16 15:00 06/26/16 08:04 Vital Signs / I&O Vital Signs Date Time Temp Pulse Resp B/P Pulse Ox O2 Delivery O2 Flow Rate FiO2 06/26/16 10:00 66 06/26/16 08:50 94 40 06/26/16 08:50 40 06/26/16 08:50 100 Ventilator 40 06/26/16 08:00 63 06/26/16 08:00 97.7 63 123/59 100 06/26/16 08:00 40 06/26/16 07:30 97.7 63 108/54 100 06/26/16 07:00 97.7 62 93/52 100 06/26/16 06:00 62 06/26/16 04:00 40 06/26/16 04:00 61 06/26/16 04:00 97.7 61 14 94/55 96 06/26/16 03:47 97 40 06/26/16 02:00 61 06/26/16 01:29 97 40 06/26/16 00:00 63 06/26/16 00:00 40 06/26/16 00:00 97.9 63 14 96/51 95 06/25/16 22:00 65 06/25/16 20:00 98.1 65 14 103/59 97 06/25/16 20:00 65 06/25/16 20:00 40 06/25/16 19:36 97 40 06/25/16 18:00 65 06/25/16 16:34 10 40 06/25/16 16:30 97.9 63 90/52 97 06/25/16 16:00 64 06/25/16 16:00 97.9 65 102/52 97 06/25/16 16:00 40 06/25/16 15:30 97.7 65 103/57 97 06/25/16 15:00 65 105/59 06/25/16 14:00 67 98/52 97 06/25/16 14:00 67 06/25/16 13:30 67 89/51 96 06/25/16 13:00 68 105/55 95 06/25/16 12:00 60 06/25/16 12:00 72 100/55 95 06/25/16 12:00 72 06/25/16 11:45 75 109/57 99 06/25/16 11:30 79 126/62 97 I/O 06/25/16 06/25/16 06/25/16 06/26/16 06/26/16 06/26/16 07:00 15:00 23:00 07:00 15:00 23:00 Intake Total 141 ml 290 ml 156 ml Output Total 565 ml 250 ml 125 ml Balance -424 ml 40 ml 31 ml Intake IV Total 81 ml 290 ml 156 ml Tube Irrigant 60 ml Output Urine Total 565 ml 250 ml 125 ml # Voids 0 # Bowel Movements 0 Physical Exam GENERAL: Alert, awake, intubated SKIN: Warm and dry. HEAD: Normocephalic. EYES: No scleral icterus. No injection or drainage. NECK: Supple, trachea midline. No JVD or lymphadenopathy. CARDIOVASCULAR: Regular rate and rhythm without murmurs, gallops, or rubs. RESPIRATORY: Poor inspiratory effort, vented GASTROINTESTINAL: Abdomen soft, non-tender, nondistended. EXTREMITIES: No cyanosis, or edema. Laboratory Laboratory Tests Test 06/25/16 06/25/16 06/25/16 06/26/16 11:26 11:40 17:55 05:41 Nasal Screen MRSA (PCR) MRSA NOT DETECTED VRE Surveillance Screen POSITIVE White Blood Count 6.8 TH/MM3 5.4 TH/MM3 Red Blood Count 3.00 MIL/MM3 2.60 MIL/MM3 Hemoglobin 8.9 GM/DL 7.6 GM/DL Hematocrit 27.1 % 23.4 % Mean Corpuscular Volume 90.3 FL 89.8 FL Mean Corpuscular Hemoglobin 29.7 PG 29.4 PG Mean Corpuscular Hemoglobin 32.9 % 32.7 % Concent Red Cell Distribution Width 18.3 % 17.9 % Platelet Count 105 TH/MM3 53 TH/MM3 Mean Platelet Volume 8.0 FL 8.0 FL Neutrophils (%) (Auto) 94.6 % 89.1 % Lymphocytes (%) (Auto) 3.2 % 5.1 % Monocytes (%) (Auto) 2.0 % 5.6 % Eosinophils (%) (Auto) 0.1 % 0.0 % Basophils (%) (Auto) 0.1 % 0.2 % Neutrophils # (Auto) 6.4 TH/MM3 4.8 TH/MM3 Lymphocytes # (Auto) 0.2 TH/MM3 0.3 TH/MM3 Monocytes # (Auto) 0.1 TH/MM3 0.3 TH/MM3 Eosinophils # (Auto) 0.0 TH/MM3 0.0 TH/MM3 Basophils # (Auto) 0.0 TH/MM3 0.0 TH/MM3 CBC Comment DIFF FINAL AUTO DIFF Differential Comment AUTO DIFF CONFIRMED Sodium Level 135 MEQ/L 138 MEQ/L Potassium Level 4.7 MEQ/L 4.2 MEQ/L Chloride Level 101 MEQ/L 104 MEQ/L Carbon Dioxide Level 23.9 MEQ/L 27.3 MEQ/L Anion Gap 10 MEQ/L 7 MEQ/L Blood Urea Nitrogen 25 MG/DL 35 MG/DL Creatinine 1.98 MG/DL 2.06 MG/DL Estimat Glomerular Filtration 34 ML/MIN 32 ML/MIN Rate Random Glucose 283 MG/DL 189 MG/DL Calcium Level 7.1 MG/DL 7.7 MG/DL Protein Corrected Calcium 7.1 MG/DL Total Creatine Kinase 83 U/L Troponin I 1.68 NG/ML 1.40 NG/ML Total Protein 7.1 GM/DL Lactic Acid Level 1.8 mmol/L Platelet Estimate LOW Platelet Morphology Comment ENLARGED Ovalocytes 1+ Acanthocytes OCC Keratocytes OCC Phosphorus Level 4.0 MG/DL Magnesium Level 2.3 MG/DL Test 06/26/16 06/26/16 07:50 09:45 White Blood Count 6.6 TH/MM3 Red Blood Count 2.74 MIL/MM3 Hemoglobin 8.0 GM/DL Hematocrit 24.8 % Mean Corpuscular Volume 90.5 FL Mean Corpuscular Hemoglobin 29.2 PG Mean Corpuscular Hemoglobin 32.3 % Concent Red Cell Distribution Width 18.2 % Platelet Count 64 TH/MM3 Mean Platelet Volume 7.7 FL Neutrophils (%) (Auto) 88.8 % Lymphocytes (%) (Auto) 7.5 % Monocytes (%) (Auto) 3.7 % Eosinophils (%) (Auto) 0.0 % Basophils (%) (Auto) 0.0 % Neutrophils # (Auto) 5.9 TH/MM3 Lymphocytes # (Auto) 0.5 TH/MM3 Monocytes # (Auto) 0.2 TH/MM3 Eosinophils # (Auto) 0.0 TH/MM3 Basophils # (Auto) 0.0 TH/MM3 CBC Comment AUTO DIFF Differential Comment AUTO DIFF CONFIRMED Platelet Estimate LOW Platelet Morphology Comment NORMAL Prothrombin Time 14.4 SEC Prothromb Time International 1.3 RATIO Ratio Fibrinogen 279 mg/dL Total Bilirubin 0.7 MG/DL Direct Bilirubin 0.4 MG/DL Indirect Bilirubin 0.3 MG/DL Aspartate Amino Transf 23 U/L (AST/SGOT) Alanine Aminotransferase 20 U/L (ALT/SGPT) Alkaline Phosphatase 128 U/L Total Protein 6.7 GM/DL Albumin 1.3 GM/DL Imaging Last Impressions Chest X-Ray 06/26/16 Signed Impressions: Service Date/Time: Sunday, June 26, 2016 07:52 - CONCLUSION: Bilateral pleural effusions. There may be some minimal worsening of the left and slight interval improvement on the right. Persistent increased interstitial markings suggesting some degree of vascular congestion/volume overload. Stable bibasilar atelectatic changes. Stable position of life-support tubes. Wilver Mendoza MD Upper Extremity Ultrasound 06/25/16 Signed Impressions: Service Date/Time: Saturday, June 25, 2016 12:29 - CONCLUSION: 1. Occlusive thrombus in the left cephalic vein. 2. No deep venous thrombosis from the right arm.. Pepito Kulkarni MD Renal Ultrasound 06/25/16 Signed Impressions: Service Date/Time: Saturday, June 25, 2016 22:41 - CONCLUSION: 1. Unremarkable kidneys. 2. Small volume ascites. 3. Bilateral pleural effusions. 4. Splenomegaly. Carroll Joel Jr., MD Lung Scan-V Nuclear Medicine 06/25/16 Signed Impressions: Service Date/Time: Saturday, June 25, 2016 08:33 - CONCLUSION: Low probability for pulmonary embolism. Moderate ventilatory defect. Alexy Padron MD FACR Head CT 06/25/16 Signed Impressions: Service Date/Time: Saturday, June 25, 2016 04:22 - CONCLUSION: 1. Atrophy. 2. No acute intracranial abnormality. Carroll Joel Jr., MD Assessment and Plan Problem List: (1) Elevated troponin Assessment and Plan: Afebrile and hemodynamically stable Anemic and thrombocytopenic No signs of active bleeding Troponin trending down Not candidate LHC/PCI Echo showing mild LV systolic dysfunction Worsening JOSE today Recommendations: 1. Continue supportive care 2. Continue medical management for CAD 3. Start Coreg 3.125mg PO daily when BP tolerates 4. Cont ASA if OK with GI and no signs of active bleeding 5. Avoid nephrotoxic drugs. Hold ACEi given JOSE Will be available on a PRN basis for any other questions or concerns (2) Acute respiratory failure with hypoxia (3) Cirrhosis (4) Thrombocytopenia (5) GI bleed (6) JOSE (acute kidney injury) Bandar Rodriguez MD June 26, 2016 11:11
[2016-06-26 12:13] LABS: BLOOD GAS BASE EXCESS -0.5 mmol/L (-2-2); BLOOD GAS CARBOXYHEMOGLOBIN 1.5 % (0-4); BLOOD GAS HCO3 23 mmol/L (22-26); BLOOD GAS O2 HGB SATURATION 94 % (90-100); BLOOD GAS OXYGEN CONTENT 11.2 Vol % (12.0-20.0); BLOOD GAS PCO2 37 mmHg (38-42); BLOOD GAS PO2 80 mmHg (61-120); BLOOD GAS TOTAL HGB 8.4 G/DL (12.0-16.0); CRITICAL VALUE NO; DRAW SITE RT RADIAL; FIO2 40 %; OXYGEN DEVICE VENTILATOR; TEMP CORR TO 98.6; VENT SETTINGS CPAP 10/+5
[2016-06-26 12:14] LABS: NUMBER OF ARTERIAL PUNCTURES 1; STAT NO; ULNAR PULSE PRESENT
[2016-06-26] MEDS: PANTOPRAZOLE SODIUM 40 MG VIAL IV PUSH SCH (14:29)
--- NOTE | 2016-06-26 14:33 | PD.CONS ---
[facility] Service Nephrology Consult Requested By Dr. Govea Reason for Consult JOSE Primary Care Physician Swapnil Griffith MD History of Present Illness The patient is a 66 yo [place] male who is known to our services from previous admission in April-May for GI bleed, sepsis, JOSE related to dehydration and Ibu use with suspected ATN. He was admitted on 06/20/16 for SOB and worsening Hgb with admitted Hg of 6.8. His admitting SCr was 2.10 that subsequently improved to 1.7, but started to rise again on 06/26 to 2.06 so we were consulted for management. During his admission April-May, his SCr peaked at 5.38, but improved daily until he reached 1.84 at time of discharge. He was on IV Bumex during that admission and was discharged on Bumex 1mg po QD Given his multiple co-morbidities, palliative care was consulted with consideration of hospice care, but this was not initiated as per what information I see. He is an alcoholic with reported cirrhosis. His albumin is very low likely from hepatic illness accompanied by malnourishment. UOP has been decent up until today. BP been marginal at best Was given Bumex IV 1mg X1 yesterday. CXR shows bilateral effusions with vascular congestion. 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 06/25/16 Past Medical History DM Asthma Osteomyelitis EtOH abuse with Cirrhosis Multiple GI bleeds in the past with embolization 05/18 CHF with EF of 45-50% Past Surgical History R neisha toe amputation Knee arthroscopy EGD with embolization in April Reported Medications Reported Meds & Active Scripts Active Tramadol (Tramadol HCl) 50 Mg Tab 50 Mg PO Q6H PRN Poly--Sarah/Iron (Pediatric Multiple Vitamins W/) 1 Frantz Frantz 1 Ml PO DAILY 30 Days Vitamin B-1 (Thiamine HCl) 100 Mg Tab 100 Mg PO DAILY Pantoprazole (Pantoprazole Sodium) 40 Mg Tab 40 Mg PO Q12HR 30 Days Nystop Topical (Nystatin Topical) 100,000 Unit/Gm Powd 1 Applic TOPICAL Q12HR 30 Days Lactulose Liq (Lactulose) 10 Gm/15 Ml Soln 30 Ml PO BID 30 Days Levemir Inj (Insulin Detemir) 1,000 unit/ 10 ML Vial 5 Units SQ Q12HR 30 Days Bumetanide 1 Mg Tab 1 Mg PO DAILY Symbicort Inh (Budesonide/Formoterol Fumarate) 80-4.5 Mcg/Act Aero 2 Puff INH BID 30 Days Amiodarone (Amiodarone HCl) 200 Mg Tab 400 Mg PO Q12H Albuterol Neb (Albuterol Sulfate) 2.5 Mg/3 Ml Neb 2.5 Mg NEB Q2HR NEB PRN 30 Days Acetaminophen 325 Mg Tab 650 Mg PO Q6HR PRN Reported Vancomycin Inj (Vancomycin HCl) 1,000 Mg Inj 1,000 Mg IV DAILY Symbicort Inh (Budesonide/Formoterol Fumarate) 80-4.5 Mcg/Act Aero 2 Puff INH Q12HR Potassium Chloride ER (Potassium Chloride) 10 Meq Cap 10 Meq PO DAILY Humalog Inj (Insulin Human Lispro) 1,000 Unit/10 Ml Vial 1-9 Units SQ ACHS Max dose at bedtime:( )units; sugars< 70,(0)units; sugars 150-199,(1)unit; sugars 200-249,(3)units; sugars 250-299,(5)units; sugars 300-349,(7)units; sugars more than 349,(9)units. Humalog Mix 50-50 Inj (Insulin Lispro Protamine-Lispro 50-50 Inj) 1,000 Unit/10 Ml Vial 3 Units SQ BIDAC Diflucan (Fluconazole) 100 Mg Tab 100 Mg PO DAILY Probiotic (Lactobacillus Acidophilus) 1 Cap Cap 1 Cap PO TIDAC Calcium Carbonate 500 Mg Chew 500 Mg CHEW BID 500 mg calcium carbonate (200 mg elemental calcium) Ventolin Hfa 18 GM Inh (Albuterol Sulfate) 90 Mcg/Act Aer 2 Puff INH Q4-6H PRN Magnesium Oxide 400 Mg Tab 400 Mg PO BID Aspirin Low Dose (Aspirin) 81 Mg Chew 81 Mg CHEW DAILY Active Ordered Medications Current Medications Medications (Trade) Dose Ordered Sig/Irene Route Start Time Stop Time Status Last Admin (NS Flush) 2 ml UNSCH PRN IVF 06/25/16 03:30 06/26/16 08:05 (NS Flush) 2 ml UNSCH PRN IVF 06/25/16 03:30 (Brethine Inj) 1 mg UNSCH PRN SQ 06/25/16 06:15 Miscellaneous Information 1 Q361D XX 06/25/16 10:45 (Chlorhexidine 2% Cloth) 3 pack Taper DAILY@04 TOP 06/26/16 04:00 06/22/17 03:59 06/26/16 04:00 (Chlorhexidine 2% Cloth) 3 pack UNSCH PRN TOP 06/25/16 10:45 (Protonix Inj) 40 mg Q24H IV PUSH 06/25/16 12:00 06/25/16 12:20 (D50w (Vial) Inj) 25 ml UNSCH PRN IV PUSH 06/25/16 10:45 (Glucagon Inj) 1 mg UNSCH PRN OTHER 06/25/16 10:45 Insulin Human Regular 1 1 Q6H SQ 06/25/16 12:00 06/26/16 05:44 (Zosyn 3.375 Gm Premix) 50 ml @ 100 mls/hr Q8H IV 06/25/16 16:00 06/26/16 08:04 (Aspirin Chew) 81 mg DAILY CHEW 06/25/16 14:00 06/26/16 08:04 (Vitamin B1) 100 mg DAILY PO 06/25/16 15:00 06/26/16 08:04 Family History Not able to obtain, but mentions brother with kidney failure in records Social History Previous tobacco use Drinks 3-6 beers daily Denies illicits (Nini Ahumada) Physical Exam Vital Signs Vital Signs Date Time Temp Pulse Resp B/P Pulse Ox O2 Delivery O2 Flow Rate FiO2 06/26/16 12:25 94 Nasal Cannula 4 06/26/16 11:50 96 40 06/26/16 10:00 66 06/26/16 08:50 94 40 06/26/16 08:50 40 06/26/16 08:50 100 Ventilator 40 06/26/16 08:00 63 06/26/16 08:00 97.7 63 123/59 100 06/26/16 08:00 40 06/26/16 07:30 97.7 63 108/54 100 06/26/16 07:00 97.7 62 93/52 100 06/26/16 06:00 62 06/26/16 04:00 40 06/26/16 04:00 61 06/26/16 04:00 97.7 61 14 94/55 96 06/26/16 03:47 97 40 06/26/16 02:00 61 06/26/16 01:29 97 40 06/26/16 00:00 63 06/26/16 00:00 40 06/26/16 00:00 97.9 63 14 96/51 95 06/25/16 22:00 65 06/25/16 20:00 98.1 65 14 103/59 97 06/25/16 20:00 65 06/25/16 20:00 40 06/25/16 19:36 97 40 06/25/16 18:00 65 06/25/16 16:34 10 40 06/25/16 16:30 97.9 63 90/52 97 06/25/16 16:00 64 06/25/16 16:00 97.9 65 102/52 97 06/25/16 16:00 40 06/25/16 15:30 97.7 65 103/57 97 06/25/16 15:00 65 105/59 Physical Exam GENERAL: Ill-appearing, malnourished gentleman who has just been extubated. In NAD SKIN: Warm and dry. HEAD: Atraumatic. Normocephalic. EYES: Pupils equal and round. No scleral icterus. No injection or drainage. ENT: No nasal bleeding or discharge. Mucous membranes pink and moist. NECK: Trachea midline. No JVD. CARDIOVASCULAR: Regular rate and rhythm. RESPIRATORY: No accessory muscle use. Diminished breath sounds throughout GASTROINTESTINAL: Abdomen soft, non-tender, nondistended. MUSCULOSKELETAL: Extremities without clubbing, cyanosis, or edema. No obvious deformities. NEUROLOGICAL: Awake and alert but drowsy PSYCHIATRIC: Just extubated and still drowsy Laboratory Laboratory Tests Test 06/25/16 06/26/16 06/26/16 06/26/16 17:55 05:41 07:50 09:45 Lactic Acid Level 1.8 Troponin I 1.40 White Blood Count 5.4 6.6 Red Blood Count 2.60 2.74 Hemoglobin 7.6 8.0 Hematocrit 23.4 24.8 Mean Corpuscular Volume 89.8 90.5 Mean Corpuscular Hemoglobin 29.4 29.2 Mean Corpuscular Hemoglobin 32.7 32.3 Concent Red Cell Distribution Width 17.9 18.2 Platelet Count 53 64 Mean Platelet Volume 8.0 7.7 Neutrophils (%) (Auto) 89.1 88.8 Lymphocytes (%) (Auto) 5.1 7.5 Monocytes (%) (Auto) 5.6 3.7 Eosinophils (%) (Auto) 0.0 0.0 Basophils (%) (Auto) 0.2 0.0 Neutrophils # (Auto) 4.8 5.9 Lymphocytes # (Auto) 0.3 0.5 Monocytes # (Auto) 0.3 0.2 Eosinophils # (Auto) 0.0 0.0 Basophils # (Auto) 0.0 0.0 CBC Comment AUTO DIFF AUTO DIFF Differential Comment AUTO DIFF AUTO DIFF CONFIRMED CONFIRMED Platelet Estimate LOW LOW Platelet Morphology Comment ENLARGED NORMAL Ovalocytes 1+ Acanthocytes OCC Keratocytes OCC Sodium Level 138 Potassium Level 4.2 Chloride Level 104 Carbon Dioxide Level 27.3 Anion Gap 7 Blood Urea Nitrogen 35 Creatinine 2.06 Estimat Glomerular Filtration 32 Rate Random Glucose 189 Calcium Level 7.7 Phosphorus Level 4.0 Magnesium Level 2.3 Prothrombin Time 14.4 Prothromb Time International 1.3 Ratio Fibrinogen 279 Total Bilirubin 0.7 Direct Bilirubin 0.4 Indirect Bilirubin 0.3 Aspartate Amino Transf 23 (AST/SGOT) Alanine Aminotransferase 20 (ALT/SGPT) Alkaline Phosphatase 128 Total Protein 6.7 Albumin 1.3 Test 06/26/16 12:00 Blood Gas Puncture Site RT RADIAL Blood Gas Patient Temperature 98.6 Blood Gas HCO3 23 Blood Gas Base Excess -0.5 Blood Gas Oxygen Saturation 94 Arterial Blood pH 7.42 Arterial Blood Partial 37 Pressure CO2 Arterial Blood Partial 80 Pressure O2 Arterial Blood Oxygen Content 11.2 Arterial Blood 1.5 Carboxyhemoglobin Arterial Blood Methemoglobin 1.0 Blood Gas Hemoglobin 8.4 Oxygen Delivery Device VENTILATOR Blood Gas Ventilator Setting CPAP 10/+5 Blood Gas Inspired Oxygen 40 Date/Time Procedure Status Source Growth 06/25/16 03:35 Aerobic Blood Culture - Preliminary Resulted Blood Peripheral NO GROWTH IN 1 DAY 06/25/16 03:35 Anaerobic Blood Culture - Preliminary Resulted Blood Peripheral NO GROWTH IN 1 DAY 06/25/16 03:20 Urine Culture - Preliminary Resulted Urine Clean Catch NO GROWTH IN 24 HOURS. (Nini Ahumada) Result Diagram: 5/9/17 0750 06/26/16 0541 Imaging Last Impressions Chest X-Ray 06/26/16 0000 Signed Impressions: Service Date/Time: Sunday, June 26, 2016 07:52 - CONCLUSION: Bilateral pleural effusions. There may be some minimal worsening of the left and slight interval improvement on the right. Persistent increased interstitial markings suggesting some degree of vascular congestion/volume overload. Stable bibasilar atelectatic changes. Stable position of life-support tubes. Wilver Mendoza MD Upper Extremity Ultrasound 06/25/16 0000 Signed Impressions: Service Date/Time: Saturday, June 25, 2016 12:29 - CONCLUSION: 1. Occlusive thrombus in the left cephalic vein. 2. No deep venous thrombosis from the right arm.. Pepito Kulkarni MD Renal Ultrasound 06/25/16 0000 Signed Impressions: Service Date/Time: Saturday, June 25, 2016 22:41 - CONCLUSION: 1. Unremarkable kidneys. 2. Small volume ascites. 3. Bilateral pleural effusions. 4. Splenomegaly. Carroll Joel Jr., MD Lung Scan-V Nuclear Medicine 06/25/16 0000 Signed Impressions: Service Date/Time: Saturday, June 25, 2016 08:33 - CONCLUSION: Low probability for pulmonary embolism. Moderate ventilatory defect. Alexy Padron MD FACR Head CT 06/25/16 0000 Signed Impressions: Service Date/Time: Saturday, June 25, 2016 04:22 - CONCLUSION: 1. Atrophy. 2. No acute intracranial abnormality. Carroll Joel Jr., MD (Nini Ahumada) Assessment and Plan Problem List: (1) Acute on chronic renal insufficiency Plan: The patient's renal functions have declined in the past 2 days which is likely related to cardiac decompensation and hypoperfusion. His baseline SCr appears to be ~1.7 Will start on IV Bumex 1mg q12h with albumin 12.5mg q12h prior to diuretic to help supplement his BP. Reviewed renal US which showed no acute process or obstruction. Will follow with renal functions and status. Medications should be adjusted for the patient's renal decline. Avoid nephrotoxic medications including NSAIDs and iodinated contrast dyes. Avoid gadolinium when eGFR <30. (2) CHF (congestive heart failure) Plan: Reviewed echo from 06/25/16 that shows EF of 35-40% Bumex and albumin as above (3) Diabetes mellitus Plan: Mgmt as per primary (4) Anemia Plan: Mgmt as per GI (5) Cirrhosis (Nini Ahumada) Assessment and Plan The exam, history, and the medical decision-making described in the above note were completed with the assistance of the PA-C. I reviewed and agree with the findings presented. I attest that I had a [id number] encounter with the patient on the same day, and personally performed and documented my assessment and findings in the medical record. (Vero Johnson MD) Nini Ahumada June 26, 2016 14:33 Vero Johnson MD June 27, 2016 17:27
[2016-06-26 15:20] LABS: FERRITIN 1317 NG/ML (26-388); TRANSFERRIN IRON PROFILE 77 MG/DL (200-360)
[2016-06-26] MEDS: ALBUMIN HUMAN 25% 12.5 GM/50 ML BAGP IV SCH (18:12)
[2016-06-26] MEDS: BUMETANIDE INJ 1 MG/4 ML VIAL IV PUSH SCH (18:12)
[2016-06-26] MEDS: BUDESONIDE-FORMOTEROL 80/4.5 MCG INHALER INH SCH (23:19)
[2016-06-27] VITALS (21 sets, daily range): BP systolic 126–149; BP diastolic 58–67; PULSE 72–85; RESP 20–24; TEMP 97.8–98.8; O2SAT 91–100
[2016-06-27] MEDS: RESP: ALBUTEROL 2.5 MG/IPRATROPIUM 0.5 MG NEB (SCH) INH ×4 (03:22→19:33)
[2016-06-27] MEDS: ALBUMIN HUMAN 25% 12.5 GM/50 ML BAGP IV SCH ×2 (05:41→17:38)
[2016-06-27] MEDS: CHLORHEXIDINE GLUCONATE 2 % 1 PACK (2 CLOTHS) TOP SCH (05:41)
[2016-06-27] MEDS: INSULIN NovoLIN REGULAR SUPPLEMENTAL SCALE SQ SCH ×4 (05:42→23:02)
[2016-06-27 06:31] LABS: AUTOMATED NEUTROPHIL # 5.6 TH/MM3 (1.8-7.7); BASOPHIL % 0.1 % (0.0-2.0); EOSINOPHIL % 0.1 % (0.0-4.0); HEMATOCRIT 25.6 % (39.0-51.0); LYMPH % 8.2 % (9.0-44.0); LYMPHOCYTE # 0.5 TH/MM3 (1.0-4.8); MEAN CELL VOLUME 92.3 FL (80.0-100.0); MEAN CORPUSCULAR HGB CONC 32.5 % (32.0-36.0); MONO % 6.9 % (0.0-8.0); NEUT % 84.7 % (16.0-70.0); PLATELET COUNT 77 TH/MM3 (150-450); RED BLOOD COUNT 2.77 MIL/MM3 (4.50-5.90); RED CELL DISTRIBUTION WIDTH 18.1 % (11.6-17.2); WHITE BLOOD COUNT 6.6 TH/MM3 (4.0-11.0)
[2016-06-27 06:39] LABS: HEMO FLAGS AUTO DIFF
[2016-06-27 06:59] LABS: BICARBONATE 28.1 MEQ/L (21.0-32.0); POTASSIUM 3.7 MEQ/L (3.5-5.1)
[2016-06-27] MEDS: BUMETANIDE INJ 1 MG/4 ML VIAL IV PUSH SCH ×2 (08:45→16:59)
[2016-06-27] MEDS: THIAMINE HCL 100 MG TAB PO SCH (08:45)
[2016-06-27] MEDS: BUDESONIDE-FORMOTEROL 80/4.5 MCG INHALER INH SCH ×2 (08:45→20:07)
[2016-06-27] MEDS: ASPIRIN 81 MG CHEW TAB CHEW SCH (08:45)
[2016-06-27] MEDS: PIPERACIL-TAZO 3.375 GM PREMIX 50 ML IV SCH ×3 (08:45→23:01)
--- NOTE | 2016-06-27 08:59 | HHI.CCPN ---
Subjective Remarks/Hospital Course The patient is a 66-year-old male with a past medical history of diabetes mellitus, bronchial asthma, ETOH use, cirrhosis of the liver, who presented to [facility] ED from a nursing facility for shortness of breath. The patient was recently hospitalized in the end of April, for GI bleed secondary to large duodenal ulcer. In addition he underwent arteriogram and embolization of the right gastric and GDA on May 18. He required multiple blood transfusions, intubation and mechanical ventilation. In addition, the patient had two endoscopies. On arrival to the ED the patient was hypotensive with blood pressure 94/50 and his laboratory data showed mild acute kidney injury with a BUN of 21, creatinine 1.86, lactic acidosis with lactic acid level 3.6 and elevated BNP at 427. In addition, he was found to have elevated D -dimer at 12.28. CT scan of the brain was obtained which showed no atrophy, otherwise no acute intracranial abnormalities. A VQ scan was obtained as well in the ER which showed low probability for pulmonary embolism. His initial chest x-ray from early this morning showed bilateral pleural effusions and patchy bilateral pulmonary infiltrates. Central line was placed by ED physician and a repeat chest x-ray showed right IJ central line in good position , bilateral effusions with bilateral parenchymal densities, right greater than the left. In the ER he was given 2 liters of crystalloids in addition to vancomycin, Zosyn, Solu-Medrol, bronchodilator and Bumex. He was hypotensive in the ER and the patient was placed on Levophed which is currently at three mics. Due to his respiratory distress, the patient was intubated and placed on full mechanical ventilation. When seen he is on Diprivan infusion for sedation. However, the patient is awake, alert and follows commands. ABG post intubation showed a pH of 7.35, CO2 48, pAO2 325, bicarb 26, saturation of 98%. 06/26 Patient is sedated with Diprivan. Afebrile. Off Levophed. Subjective 06/27: Extubated 06/26. Of all vasopressors. Currently on nasal cannula. Tolerating diet. Objective Vital Signs Date Time Temp Pulse Resp B/P Pulse Ox O2 Delivery O2 Flow Rate FiO2 06/27/16 06:00 77 06/27/16 04:00 98.4 20 131/61 93 06/26/16 19:44 Nasal Cannula 4.00 06/26/16 11:50 40 Intake and Output 06/26/16 06/26/16 06/27/16 08:00 16:00 00:00 Intake Total 156 ml 97 ml 349 ml Output Total 125 ml 300 ml 850 ml Balance 31 ml -203 ml -501 ml Result Diagram: 06/27/16 0445 06/27/16 0445 Other Results Microbiology Date/Time Procedure Status Source Growth 06/25/16 03:35 Aerobic Blood Culture - Preliminary Resulted Blood Peripheral NO GROWTH IN 1 DAY 06/25/16 03:35 Anaerobic Blood Culture - Preliminary Resulted Blood Peripheral NO GROWTH IN 1 DAY 06/25/16 03:20 Urine Culture - Preliminary Resulted Urine Clean Catch NO GROWTH IN 24 HOURS. Imaging Last Impressions Chest X-Ray 06/26/16 0000 Signed Impressions: Service Date/Time: Sunday, June 26, 2016 07:52 - CONCLUSION: Bilateral pleural effusions. There may be some minimal worsening of the left and slight interval improvement on the right. Persistent increased interstitial markings suggesting some degree of vascular congestion/volume overload. Stable bibasilar atelectatic changes. Stable position of life-support tubes. Wilver Mendoza MD Upper Extremity Ultrasound 06/25/16 0000 Signed Impressions: Service Date/Time: Saturday, June 25, 2016 12:29 - CONCLUSION: 1. Occlusive thrombus in the left cephalic vein. 2. No deep venous thrombosis from the right arm.. Pepito Kulkarni MD Renal Ultrasound 06/25/16 Signed Impressions: Service Date/Time: Saturday, June 25, 2016 22:41 - CONCLUSION: 1. Unremarkable kidneys. 2. Small volume ascites. 3. Bilateral pleural effusions. 4. Splenomegaly. Carroll Joel Jr., MD Lung Scan-VQ Nuclear Medicine 06/25/16 0000 Signed Impressions: Service Date/Time: Saturday, June 25, 2016 08:33 - CONCLUSION: Low probability for pulmonary embolism. Moderate ventilatory defect. Alexy Padron MD FACR Head CT 06/25/16 0000 Signed Impressions: Service Date/Time: Saturday, June 25, 2016 04:22 - CONCLUSION: 1. Atrophy. 2. No acute intracranial abnormality. Carroll Joel Jr., MD Objective Remarks GENERAL: Patient is 66 yo male, critically ill currently resting in bed in no acute distress SKIN: Warm and dry. No rash HEAD: Normocephalic. EYES: No scleral icterus. No injection or drainage. NECK: Supple, trachea midline. No JVD or lymphadenopathy. Orally intubated CARDIOVASCULAR: Regular rate and rhythm . S1, S2 no S4. Without murmurs, gallops, or rubs. RESPIRATORY: Coarse crackles appreciated throughout lung bailey. No wheezing. Breath sounds equal bilaterally. No accessory muscle use. GASTROINTESTINAL: Abdomen soft, non-tender, nondistended. MUSCULOSKELETAL: No significant peripheral edema Neuro: Cranial nerve II through XII grossly intact. Strength equal/symmetric bilaterally. Urinary Catheter: Yes Assessment to: Continue Donaldson insert reason: Prolonged Immobilization Vascular Central Line Catheter: Yes Assessment to: Remove A/P Assessment and Plan Neuro/Psych: ETOH History of hepatic encephalopathy Resume lactulose 30 cc twice a day Oxycodone for pain management CV: Congestive heart failure - chronic systolic Pericardial effusion Atrial fibrillation Echocardiogram 06/25 revealed ejection fraction 35-40%. No regional wall motion abnormality. ROLANDO [address] Byrne. Not a candidate for left heart catheter/PCI. Recommended Coreg 3.125 twice a day, aspirin 81 mg daily/medical management On amiodarone 400 mg by mouth twice a day at home. We'll decrease to 200 mg daily light of liver failure Pericardial effusion without tamponade features. Resp: Chronic 02 - 1.5 liters Acute hypoxemic respiratory failure. Congestive heart failure/infectious etiology Bronchial asthma Bilateral pleural effusions likely transmitted Nasal cannula to maintain saturations greater than equal to 92%. 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 Continue Protonix 40 mg by mouth twice a day Resume lactulose 30 cc twice a day. Check ammonia level in a.m. : BPH Donaldson catheter while on diuretics for accurate I's and O's in a critically ill patient Endo: Diabetes mellitus Elevated intact parathyroid hormone Low vitamin D 25 On Lantus 5 units twice a day with lispro sliding scale 3 units twice a day at home Currently on low-dose sliding scale with Accu-Cheks before meals/at bedtime Renal: Acute on chronic kidney injury Followed by nephrology. Baseline creatinine 1.7. Currently Bumex 1 mg IV twice a day. Avoid nephrotoxic drugs Accurate I's and O's Follow-up BMP in a.m. Renal ultrasound revealed no hydronephrosis. Heme: Leukocytosis Normocytic anemia Left cephalic vein thrombosis Thrombocytopenia Monitor CBC daily Monitor trends ID: Recently treated left knee osteomyelitis completed therapy vancomycin/Diflucan Community-acquired pneumonia Currently on Zosyn day #3 Pertinent cultures Blood cultures 2 - 06/25 - no growth MSK: PT evaluate and treat FEN: Replace electrolytes as clinically indicated Access - Discontinue right IJ central line. PIV Prophylaxis - GI - Protonix - DVT - SCD/pharmacological prophylaxis held due to GI bleed Critical Care: The total critical care time was 55 minutes. Time to perform other separately billable procedures was not included in the critical care time. Williams Sanchez MD June 27, 2016 08:59 7. Urinary tract infection. 8. Diabetes mellitus. 9. History of bronchial asthma. 10. ETOH use. 11 Occlusive thrombus in left cephalic vein 12. Elevated trop Plan: Neuro: On Diprivan infusion for sedation. Monitor neuro status and daily sedation vacation Pulm Continue with vent support and maintain sats above 92%. Bronchodilators, ICU vent bundle. Start SBT daily as ol. Check CXR V/Q scan- low prob PE CV: Monitor HR and BP and maintain MAP>65mmHg. On ASA 81mg daily. Lactic acid 1.8 today Echo showed EF 35-40%, no RWMA, pericardial effusion with no tamponade physiology Cards is following- Dr. Byrne- recommend medical management. Not on AC given recent GI bleed. : Monitor renal function, I&O's and avoid nephrotoxins. Electrolyte replacement as needed. Renal function slightly worse today with Cr: 2.0 from 1.86 on arrival. Renal US: No hydro. GI: Keep n.p.o. on Protonix 40 mg IV daily for GI prophylaxis. Starts tube feeds today if remains intubated. ID: Continue with abx (Zosyn) Vanco x 1 dose yesterday monitor for signs of infections ( Fever, WBC) follow up on cxs. Check sputum cx. Endo: SSI with Accu-Chek q. 6-hours for glycemic control. Heme: Monitor CBC GI prophylaxis with Protonix 40 mg daily and DVT prophylaxis with SCDs. Not on chemical anticoagulation prophylaxis secondary to recent GI bleed Doppler US UE : Occlusive thrombus left cephalic vein. Level 3 Williams Sanchez MD June 27, 2016 08:59
[2016-06-27] MEDS ORDERED: FLUCONAZOLE 100 MG TAB PO SCH (09:00)
[2016-06-27] MEDS ORDERED: BUDESONIDE-FORMOTEROL 80/4.5 MCG INHALER INH SCH (09:00)
[2016-06-27] MEDS ORDERED: AMIODARONE 200 MG TAB PO SCH (09:00)
[2016-06-27] MEDS: NYSTATIN 100,000 U/GM PWD 15 GM BTL TOPICAL SCH ×2 (09:00→20:08)
[2016-06-27] MEDS: LACTULOSE SYRUP 20 GM/30 ML CUP PO SCH ×2 (09:46→20:08)
[2016-06-27] MEDS: CALCIUM CARBONATE 500 MG CHEWABLE TAB CHEW SCH ×2 (09:46→20:07)
[2016-06-27 09:49] LABS: OVALOCYTES 1+ (NORMAL); PLATELET ESTIMATE SMEAR LOW (NORMAL); PLATELET MORPHOLOGY NORMAL (NORMAL); ROULEAUX PRESENT (NORMAL); SCAN/DIFF AUTO DIFF CONFIRMED
[2016-06-27] MEDS: RESP: ALBUTEROL 2.5 MG/3 ML NEB (PRN) NEB (11:52)
[2016-06-27] MEDS: LACTOBACILLUS ACIDOPHILUS TAB PO SCH ×2 (11:54→16:59)
[2016-06-27 13:59] LABS: HEPARIN AB OD 0.211 O.D. (0.000-0.300); HEPARIN INDUCED PLATELET AB NEGATIVE (NEGATIVE)
--- NOTE | 2016-06-27 18:34 | HHI.NPPN ---
Subjective History of Present Illness The patient is a 66 yo [place] male who is known to our services from previous admission in April-May for GI bleed, sepsis, JOSE related to dehydration and Ibu use with suspected ATN. He was admitted on 06/20/16 for SOB and worsening Hgb with admitted Hg of 6.8. His admitting SCr was 2.10 that subsequently improved to 1.7, but started to rise again on 06/26 to 2.06 so we were consulted for management. During his admission April-May, his SCr peaked at 5.38, but improved daily until he reached 1.84 at time of discharge. He was on IV Bumex during that admission and was discharged on Bumex 1mg po QD Given his multiple co-morbidities, palliative care was consulted with consideration of hospice care, but this was not initiated as per what information I see. He is an alcoholic with reported cirrhosis. His albumin is very low likely from hepatic illness accompanied by malnourishment. Objective Data Data 06/26/16 06/27/16 19:00 07:00 Intake Total 97 ml 349 ml Output Total 300 ml 1700 ml Balance -203 ml -1351 ml IV Total 97 ml 279 ml Tube Feeding 40 ml Other 30 ml Output Urine Total 300 ml 1700 ml # Bowel Movements 0 Vital Signs Date Time Temp Pulse Resp B/P Pulse Ox O2 Delivery O2 Flow Rate FiO2 06/27/16 18:00 78 06/27/16 17:00 72 136/64 06/27/16 16:00 98.1 72 22 149/65 94 06/27/16 16:00 75 06/27/16 15:30 79 137/64 94 06/27/16 15:00 72 06/27/16 14:00 75 06/27/16 14:00 75 136/65 97 06/27/16 13:00 97.9 75 128/62 06/27/16 12:00 97.8 75 24 147/67 93 06/27/16 12:00 75 06/27/16 10:00 98.6 85 147/67 94 06/27/16 10:00 84 06/27/16 09:31 98 Nasal Cannula 3.00 06/27/16 09:30 98.6 80 128/58 94 06/27/16 09:00 98.8 82 146/67 92 06/27/16 08:31 98.6 80 145/65 06/27/16 08:00 82 06/27/16 08:00 98.8 82 20 146/67 91 06/27/16 06:00 77 06/27/16 04:00 98.4 77 20 131/61 93 06/27/16 04:00 77 06/27/16 02:00 75 06/27/16 00:00 98.4 78 20 126/60 100 06/27/16 00:00 78 06/26/16 22:00 78 06/26/16 20:00 79 06/26/16 20:00 98.2 79 20 126/58 100 06/26/16 19:44 97 Nasal Cannula 4.00 -: 06/27/16 0445 06/27/16444 Medication Review Current Medications Sodium Chloride (NS Flush) 2 ml UNSCH PRN IVF FLUSH AFTER USING IV ACCESS Last administered on 06/26/16 08:05; Start 06/25/16 at 03:30 Methylprednisolone Sodium Succinate (SoluMEDROL INJ) 125 mg ONCE ONCE IVP Last administered on 06/25/16 03:53; Start 06/25/16 at 03:30; Stop 06/25/16 at 03: 31; Status DC Albuterol Sulfate (Albuterol Neb) 2.5 mg Q15M INH Last administered on 05:48; Start 06/25/16 at 03:30; Stop 06/25/16 at 04:01; Status DC Bumetanide (Bumex Inj) 1 mg ONCE ONCE IV PUSH Last administered on 06/25/16 03 :53; Start 06/25/16 at 03:30; Stop 06/25/16 at 03:31; Status DC Sodium Chloride 2 ml 2 ml UNSCH PRN IVF FLUSH AFTER USING IV ACCESS; Start 06/25 at 03:30 Propofol 100 ml @ As Directed STK-MED ONCE .ROUTE ; Start 06/25/16 at 03:34; Stop 06/25/16 at 03:35; Status DC Propofol (Diprivan 1000 Mg/100ml Inj) 100 ml @ 0 mls/hr TITRATE IV Last administered on 06/26/16 03:06; Start 06/25/16 at 03:45; Stop 06/26/16 at 13:13; Status DC Succinylcholine Chloride (Quelicin Inj) 150 mg ONCE ONCE IV PUSH Last administered on 06/25/16 04:04; Start 06/25/16 at 04:00; Stop 06/25/16 at 04:01; Status DC Etomidate (Amidate Inj) 20 mg ONCE ONCE IV PUSH Last administered on 06/25/16 04:03; Start 06/25/16 at 04:00; Stop 06/25/16 at 04:01; Status DC Hydromorphone HCl (Dilaudid Pf Inj) 1 mg ONCE ONCE IV PUSH Last administered on 06/25/16 04:23; Start 06/25/16 at 04:15; Stop 06/25/16 at 04:16; Status DC Aspirin (Aspirin Supp) 300 mg ONCE ONCE RECTAL Last administered on 06/25/16 05:30; Start 06/25/16 at 04:45; Stop 06/25/16 at 04:46; Status DC Albuterol Sulfate 2.5 mg 2.5 mg ONCE ONCE NEB Last administered on 06/25/16 06 :00; Start 06/25/16 at 05:00; Stop 06/25/16 at 05:01; Status DC Sodium Chloride (NS 1000 ml Inj) 1,000 ml @ 999 mls/hr Q1H1M IV ; Start at 05:45; Stop 06/25/16 at 05:46; Status DC Furosemide 40 mg 40 mg ONCE ONCE IV PUSH Last administered on 06/25/16 06:04; Start 06/25/16 at 06:00; Stop 06/25/16 at 06:01; Status DC Norepinephrine Bitartrate (Levophed-Dextrose Drip) 250 ml @ 0 mls/hr TITRATE IV Last administered on 06/25/16 07:01; Start 06/25/16 at 06:15; Stop 06/26/16 at 13:13; Status DC Terbutaline Sulfate (Brethine Inj) 1 mg UNSCH PRN SQ For Extravasation; Start 06/25/16 at 06:15 Norepinephrine Bitartrate (Levophed Inj) 4 mg STK-MED ONCE .ROUTE ; Start at 06:07; Stop 06/25/16 at 06:08; Status DC Lidocaine HCl (Xylocaine-Mpf 1% Inj) 30 ml STK-MED ONCE .ROUTE ; Start 06/25/16 at 06:14; Stop 06/25/16 at 06:15; Status DC Lidocaine HCl 10 ml 10 ml ONCE ONCE INFIL Last administered on 06/25/16 07:01 ; Start 06/25/16 at 07:00; Stop 06/25/16 at 07:01; Status DC Sodium Chloride 1,000 ml @ 999 mls/hr Q1H1M IV Last administered on 06/25/16 07:30; Start 06/25/16 at 07:15; Stop 06/25/16 at 08:15; Status DC Piperacillin Sod/ Tazobactam Sod 100 ml @ 200 mls/hr ONCE ONCE IV Last administered on 06/25/16 07:30; Start 06/25/16 at 07:15; Stop 06/25/16 at 07:44; Status DC Vancomycin HCl 1150 mg/Sodium Chloride 261.5 ml @ 250 mls/hr ONCE ONCE IV Last administered on 06/25/16 07:59; Start 06/25/16 at 07:15; Stop 06/25/16 at 08: 17; Status DC Sodium Chloride (NS 1000 ml Inj) 1,000 ml @ 999 mls/hr Q1H1M IV Last administered on 06/25/16 08:37; Start 06/25/16 at 07:15; Stop 06/25/16 at 08:15; Status DC Albuterol/ Ipratropium (Duoneb Neb) 1 ampule Q6HR NEB INH Last administered on 06/27/16 14:51; Start 06/25/16 at 10:45 Miscellaneous Information 1 Q361D XX ; Start 06/25/16 at 10:45 Chlorhexidine Gluconate (Chlorhexidine 2% Cloth) 3 pack Taper DAILY@04 TOP Last administered on 06/27/16 05:41; Start 06/26/16 at 04:00; Stop 06/22/17 at 03 :59 Chlorhexidine Gluconate (Chlorhexidine 2% Cloth) 3 pack UNSCH PRN TOP HYGIENIC CARE; Start 06/25/16 at 10:45 Heparin Sodium (Porcine) (Heparin Inj) 5,000 units Q12HR SQ ; Start 06/25/16 at 21:00; Stop 06/25/16 at 21:00; Status DC Pantoprazole Sodium (Protonix Inj) 40 mg Q24H IV PUSH Last administered on 14:29; Start 06/25/16 at 12:00; Stop 06/27/16 at 09:20; Status DC Dextrose (D50w (Vial) Inj) 25 ml UNSCH PRN IV PUSH HYPOGLYCEMIA-SEE COMMENTS; Start 06/25/16 at 10:45 Glucagon (Glucagon Inj) 1 mg UNSCH PRN OTHER HYPOGLYCEMIA-SEE COMMENTS; Start 06/25/16 at 10:45 Insulin Human Regular 1 1 Q6H SQ Last administered on 06/27/16 17:00; Start at 12:00 Piperacillin Sod/ Tazobactam Sod 50 ml @ 100 mls/hr Q8H IV Last administered on 06/27/16 16:59; Start 06/25/16 at 16:00 Calcium Gluconate/ Sodium Chloride (Calcium Gluconate Inj/NS Inj) 110 ml @ 110 mls/hr ONCE ONCE IV Last administered on 06/25/16 15:16; Start 06/25/16 at 15: 00; Stop 06/25/16 at 15:59; Status DC Aspirin (Aspirin Chew) 81 mg DAILY CHEW Last administered on 06/27/16 08:45; Start 06/25/16 at 14:00 Thiamine HCl (Vitamin B1) 100 mg DAILY PO Last administered on 06/27/16 08:45 ; Start 06/25/16 at 15:00 Bumetanide (Bumex Inj) 1 mg ONCE ONCE IV PUSH Last administered on 06/25/16 14 :21; Start 06/25/16 at 14:00; Stop 06/25/16 at 14:01; Status DC Albumin Human (Albumin 25% Inj) 12.5 gm Q12H IV Last administered on 06/27/16 17:38; Start 06/26/16 at 18:00; Stop 06/27/16 at 18:27; Status DC Bumetanide (Bumex Inj) 1 mg BID@09,18 IV PUSH Last administered on 06/27/16 16 :59; Start 06/26/16 at 18:00; Stop 06/27/16 at 18:27; Status DC Budesonide/ Formoterol Fumarate (Symbicort 80-4.5 Mcg Inh) 2 puff Q12HR INH Last administered on 06/27/16 08:45; Start 06/26/16 at 23:00 Amiodarone HCl (Cordarone) 400 mg Q12H PO ; Start 06/27/16 at 09:00; Stop at 09:20; Status DC Budesonide/ Formoterol Fumarate (Symbicort 80-4.5 Mcg Inh) 2 puff BID INH ; Start 06/27/16 at 09:00; Stop 06/27/16 at 09:03; Status DC Calcium Carbonate (Tums Chew) 500 mg BID CHEW Last administered on 06/27/16 09 :46; Start 06/27/16 at 09:00 Fluconazole (Diflucan) 100 mg DAILY PO ; Start 06/27/16 at 09:00; Stop 06/27/16 at 09:20; Status DC Lactobacillus Acidophilus (Lactinex) 1 tab TIDAC PO Last administered on 16:59; Start 06/27/16 at 12:00 Lactulose (Lactulose Liq) 30 ml BID PO Last administered on 06/27/16 09:46; Start 06/27/16 at 09:00 Nystatin (Mycostatin Powder) 1 applic Q12HR TOPICAL ; Start 06/27/16 at 09:00 Amiodarone HCl (Cordarone) 200 mg DAILY PO ; Start 06/28/16 at 09:00 Pantoprazole Sodium (Protonix Inj) 40 mg BID IV PUSH ; Start 06/27/16 at 21:00 Folic Acid (Folate) 1 mg DAILY PO ; Start 06/28/16 at 09:00 Multivitamins (Theragran) 1 tab DAILY PO ; Start 06/28/16 at 09:00 Oxycodone HCl (Roxicodone) 5 mg Q6H PRN PO PAIN SCALE 1 TO 10; Start 06/27/16 at 09:30 Albuterol Sulfate (Albuterol Neb) 2.5 mg Q2HR NEB PRN NEB dyspnea Last administered on 06/27/16 11:52; Start 06/27/16 at 11:45 Ergocalciferol (Drisdol) 50,000 units Q7D PO ; Start 06/27/16 at 18:30; Status UNV Physical Exam General Appearance: Pale, Malnourished Eyes Eye Exam: Sclera White Neck Neck Exam: Trachea Midline Pulmonary Resp Exam: Clear Bilaterally, Breath Sounds Equal, Diminished Breath Sounds ( bases) Cardiology CV Exam: Regular, Normal Sinus Rhythm Gastrointestinal/Abdomen GI Exam: Soft, Non-Tender Integumentary Skin Exam: Clear, Warm Extremeties Extremities Exam: Trace Edema (ankles.) Neurologic Neuro Exam: Stuporous Assessment/Plan Discussed Condition With: Patient Problem List: (1) Acute on chronic renal insufficiency Plan: Patient's creatinine level has risen only slightly. Volume status much improved. We'll discontinue IV albumin and bumetanide at this point in time. *By mouth Bumex. Patient's overall prognosis appears to be very poor. We'll see patient when necessary at this point in time. Medications should be adjusted for the patient's renal decline. Avoid nephrotoxic medications including NSAIDs and iodinated contrast dyes. Avoid gadolinium when eGFR <30. (2) CHF (congestive heart failure) (3) Diabetes mellitus Plan: Mgmt as per primary (4) Anemia Plan: Mgmt as per GI (5) Cirrhosis Vero Johnson MD June 27, 2016 18:34
[2016-06-27] MEDS: ERGOCALCIFEROL (VIT D2) 50,000 UNIT CAP PO SCH (20:07)
[2016-06-27] MEDS: PANTOPRAZOLE SODIUM 40 MG VIAL IV PUSH SCH (20:07)
[2016-06-28] VITALS (14 sets, daily range): BP systolic 140–155; BP diastolic 63–68; PULSE 65–96; RESP 18–20; TEMP 97.8–98.6; O2SAT 90–96
[2016-06-28] MEDS: RESP: ALBUTEROL 2.5 MG/3 ML NEB (PRN) NEB (00:45)
[2016-06-28] MEDS: CHLORHEXIDINE GLUCONATE 2 % 1 PACK (2 CLOTHS) TOP SCH (04:00)
[2016-06-28] MEDS: RESP: ALBUTEROL 2.5 MG/IPRATROPIUM 0.5 MG NEB (SCH) INH ×3 (04:06→22:53)
--- NOTE | 2016-06-28 05:05 | RADRPT ---
EXAM DATE/TIME: 06/28/2016 03:31 [facility] COMPARISON: CHEST SINGLE AP, June 26, 2016, 7:52. INDICATIONS : Shortness of breath, possible pulmonary disease. MEDICAL HISTORY : Renal failure, chronic. Diabetes mellitus type II. SURGICAL HISTORY : None. ENCOUNTER: Subsequent ACUITY: 4 - 6 days PAIN SCORE: Non-responsive. LOCATION: Bilateral chest FINDINGS: Unchanged bilateral pleural effusions and bibasilar atelectasis versus infiltrates. Heart is normal i n size. Interval extubation. CONCLUSION: Unchanged effusions and bibasilar infiltrates/atelectasis. Carroll Joel Jr., MD on June 28, 2016 at 5:03 Board Certified Radiologist. This report was verified electronically.
[2016-06-28] MEDS: INSULIN NovoLIN REGULAR SUPPLEMENTAL SCALE SQ SCH ×4 (06:00→20:27)
[2016-06-28 06:09] LABS: AUTOMATED NEUTROPHIL # 2.3 TH/MM3 (1.8-7.7); BASOPHIL % 0.1 % (0.0-2.0); EOSINOPHIL % 0.7 % (0.0-4.0); LYMPH % 15.7 % (9.0-44.0); LYMPHOCYTE # 0.5 TH/MM3 (1.0-4.8); MEAN CELL VOLUME 97.9 FL (80.0-100.0); MEAN CORPUSCULAR HEMOGLOBIN 32.5 PG (27.0-34.0); MEAN CORPUSCULAR HGB CONC 33.2 % (32.0-36.0); MONO % 10.1 % (0.0-8.0); NEUT % 73.4 % (16.0-70.0); PLATELET COUNT 57 TH/MM3 (150-450); RED BLOOD COUNT 2.45 MIL/MM3 (4.50-5.90); WHITE BLOOD COUNT 3.1 TH/MM3 (4.0-11.0)
[2016-06-28 06:13] LABS: HEMO FLAGS AUTO DIFF
[2016-06-28 06:37] LABS: ALKALINE PHOSPHATASE 113 U/L (45-117); ALT (GPT) 16 U/L (12-78); ANION GAP 9 MEQ/L (5-15); AST (GOT) 20 U/L (15-37); BICARBONATE 29.6 MEQ/L (21.0-32.0); BLOOD UREA NITROGEN 33 MG/DL (7-18); CHLORIDE 100 MEQ/L (98-107); GLOMERULAR FILTRATION RATE 32 ML/MIN (>89); MAGNESIUM 1.9 MG/DL (1.5-2.5); POTASSIUM 3.2 MEQ/L (3.5-5.1); SODIUM (NA) 139 MEQ/L (136-145); TOTAL BILIRUBIN ADULT 0.8 MG/DL (0.2-1.0)
[2016-06-28 07:20] LABS: KERATOCYTES OCC (NORMAL); PLATELET ESTIMATE SMEAR LOW (NORMAL); PLATELET MORPHOLOGY NORMAL (NORMAL)
[2016-06-28 07:21] LABS: SCAN/DIFF AUTO DIFF CONFIRMED
[2016-06-28] MEDS: PIPERACIL-TAZO 3.375 GM PREMIX 50 ML IV SCH ×2 (08:43→14:50)
[2016-06-28] MEDS: LACTULOSE SYRUP 20 GM/30 ML CUP PO SCH ×2 (08:44→20:27)
[2016-06-28] MEDS: BUDESONIDE-FORMOTEROL 80/4.5 MCG INHALER INH SCH ×2 (08:44→20:27)
[2016-06-28] MEDS: NYSTATIN 100,000 U/GM PWD 15 GM BTL TOPICAL SCH ×2 (08:44→20:27)
[2016-06-28] MEDS: PANTOPRAZOLE SODIUM 40 MG VIAL IV PUSH SCH ×2 (08:44→20:27)
[2016-06-28] MEDS: BUMETANIDE 1 MG TAB PO SCH ×2 (08:45→18:13)
[2016-06-28] MEDS: LACTOBACILLUS ACIDOPHILUS TAB PO SCH ×3 (08:45→14:50)
[2016-06-28] MEDS: CALCIUM CARBONATE 500 MG CHEWABLE TAB CHEW SCH ×2 (08:45→20:27)
[2016-06-28] MEDS: THIAMINE HCL 100 MG TAB PO SCH (08:45)
[2016-06-28] MEDS: MULTIVITAMIN TAB PO SCH (08:45)
[2016-06-28] MEDS: FOLIC ACID 1 MG TAB PO SCH (08:45)
[2016-06-28] MEDS: AMIODARONE 200 MG TAB PO SCH (08:45)
[2016-06-28] MEDS: ASPIRIN 81 MG CHEW TAB CHEW SCH (08:46)
--- NOTE | 2016-06-28 09:07 | HHI.CCPN ---
Subjective Remarks/Hospital Course The patient is a 66-year-old male with a past medical history of diabetes mellitus, bronchial asthma, ETOH use, cirrhosis of the liver, who presented to [facility] ED from a nursing facility for shortness of breath. The patient was recently hospitalized in the end of April, for GI bleed secondary to large duodenal ulcer. In addition he underwent arteriogram and embolization of the right gastric and GDA on May 18. He required multiple blood transfusions, intubation and mechanical ventilation. In addition, the patient had two endoscopies. On arrival to the ED the patient was hypotensive with blood pressure 94/50 and his laboratory data showed mild acute kidney injury with a BUN of 21, creatinine 1.86, lactic acidosis with lactic acid level 3.6 and elevated BNP at 427. In addition, he was found to have elevated D -dimer at 12.28. CT scan of the brain was obtained which showed no atrophy, otherwise no acute intracranial abnormalities. A VQ scan was obtained as well in the ER which showed low probability for pulmonary embolism. His initial chest x-ray from early this morning showed bilateral pleural effusions and patchy bilateral pulmonary infiltrates. Central line was placed by ED physician and a repeat chest x-ray showed right IJ central line in good position , bilateral effusions with bilateral parenchymal densities, right greater than the left. In the ER he was given 2 liters of crystalloids in addition to vancomycin, Zosyn, Solu-Medrol, bronchodilator and Bumex. He was hypotensive in the ER and the patient was placed on Levophed which is currently at three mics. Due to his respiratory distress, the patient was intubated and placed on full mechanical ventilation. When seen he is on Diprivan infusion for sedation. However, the patient is awake, alert and follows commands. ABG post intubation showed a pH of 7.35, CO2 48, pAO2 325, bicarb 26, saturation of 98%. 06/26: Patient is sedated with Diprivan. Afebrile. Off Levophed. 06/27: Extubated 06/26. Of all vasopressors. Currently on nasal cannula. Tolerating diet. Subjective 06/28: Currently complaining of chest discomfort/pleuritic with breathing and shortness of breath. On 4 L nasal cannula. Complaining of difficulty with swallowing. No bowel movement. Up in chair 4 hours yesterday. Objective Vital Signs Date Time Temp Pulse Resp B/P Pulse Ox O2 Delivery O2 Flow Rate FiO2 06/28/16 07:45 94 Nasal Cannula 4.00 06/28/16 06:00 74 06/28/16 04:00 98.6 142/63 06/28/16 00:00 20 06/26/16 11:50 40 Intake and Output 06/27/16 06/27/16 06/28/16 08:00 16:00 00:00 Intake Total 700 ml 540 ml Output Total 850 ml 1650 ml Balance -850 ml 700 ml -1110 ml Result Diagram: 06/28/16 0345 06/28/16 0345 Other Results Microbiology Date/Time Procedure Status Source Growth 06/25/16 03:35 Aerobic Blood Culture - Preliminary Resulted Blood Peripheral NO GROWTH IN 2 DAYS 06/25/16 03:35 Anaerobic Blood Culture - Preliminary Resulted Blood Peripheral NO GROWTH IN 2 DAYS 06/25/16 03:20 Urine Culture - Final Complete Urine Clean Catch NO GROWTH IN 48 HOURS. Imaging Last Impressions Chest X-Ray 06/28/16 0600 Signed Impressions: Service Date/Time: June 03:31 - CONCLUSION: Unchanged effusions and bibasilar infiltrates/atelectasis. Carroll Joel Jr., MD Upper Extremity Ultrasound 06/25/16 0000 Signed Impressions: Service Date/Time: Saturday, June 25, 2016 12:29 - CONCLUSION: 1. Occlusive thrombus in the left cephalic vein. 2. No deep venous thrombosis from the right arm.. Pepito Kulkarni MD Renal Ultrasound 06/25/16 0000 Signed Impressions: Service Date/Time: Saturday, June 25, 2016 22:41 - CONCLUSION: 1. Unremarkable kidneys. 2. Small volume ascites. 3. Bilateral pleural effusions. 4. Splenomegaly. Carroll Joel Jr., MD Lung Scan-V Nuclear Medicine 06/25/16 0000 Signed Impressions: Service Date/Time: Saturday, June 25, 2016 08:33 - CONCLUSION: Low probability for pulmonary embolism. Moderate ventilatory defect. Alexy Padron MD FACR Head CT 06/25/16 0000 Signed Impressions: Service Date/Time: Saturday, June 25, 2016 04:22 - CONCLUSION: 1. Atrophy. 2. No acute intracranial abnormality. Carroll Joel Jr., MD Objective Remarks GENERAL: Patient is 66 yo male, currently resting in bed in no acute distress SKIN: Warm and dry. No rash HEAD: Normocephalic. EYES: No scleral icterus. No injection or drainage. NECK: Supple, trachea midline. No JVD or lymphadenopathy. Orally intubated CARDIOVASCULAR: Regular rate and rhythm . S1, S2 no S4. Without murmurs, gallops, or rubs. RESPIRATORY: Coarse crackles appreciated throughout lung bailey. No wheezing. Breath sounds equal bilaterally. No accessory muscle use. GASTROINTESTINAL: Abdomen soft, non-tender, nondistended. MUSCULOSKELETAL: No significant peripheral edema Neuro: Cranial nerve II through XII grossly intact. Strength equal/symmetric bilaterally. Normal sensation A/P Assessment and Plan Neuro/Psych: ETOH History of hepatic encephalopathy Resume lactulose 30 cc twice a day Oxycodone for pain management Thiamine 100 mg daily CV: Congestive heart failure - chronic systolic Pericardial effusion Atrial fibrillation Echocardiogram 06/25 revealed ejection fraction 35-40%. No regional wall motion abnormality. ROLANDO [address] Byrne. Not a candidate for left heart catheter/PCI. Recommended Coreg 3.125 twice a day, aspirin 81 mg daily/medical management On amiodarone 400 mg by mouth twice a day at home. We'll decrease to 200 mg daily light of liver failure Pericardial effusion without tamponade features. Resp: Chronic 02 - 1.5 liters Acute hypoxemic respiratory failure. Congestive heart failure/infectious etiology Bronchial asthma Bilateral pleural effusions likely transmitted Nasal cannula to maintain saturations greater than equal to 92%. 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 Continue Protonix 40 mg by mouth twice a day Resume lactulose 30 cc twice a day. Check ammonia level in a.m. was around 40 : BPH Donaldson catheter while on diuretics for accurate I's and O's in a critically ill patient Endo: Diabetes mellitus Elevated intact parathyroid hormone Low vitamin D 25 On Lantus 5 units twice a day with lispro sliding scale 3 units twice a day at home Currently on low-dose sliding scale with Accu-Cheks before meals/at bedtime Renal: Acute on chronic kidney injury Followed by nephrology. Baseline creatinine 1.7. Currently Bumex 1 mg switch to by mouth twice a day. Avoid nephrotoxic drugs Accurate I's and O's Follow-up BMP in a.m. Renal ultrasound revealed no hydronephrosis. Heme: Leukocytosis Normocytic anemia Left cephalic vein thrombosis Thrombocytopenia Monitor CBC daily Monitor trends ID: Recently treated left knee osteomyelitis completed therapy vancomycin/Diflucan Community-acquired pneumonia Currently on Zosyn day #4 Pertinent cultures Blood cultures 2 - 06/25 - no growth MSK: PT evaluate and treat FEN: Replace electrolytes as clinically indicated Access - Discontinue right IJ central line. PIV Prophylaxis - GI - Protonix - DVT - SCD/pharmacological prophylaxis held due to GI bleed Critical Care: The total care time was 35 minutes. Time to perform other separately billable procedures was not included in the critical care time. Patient is stable from a critical care medicine standpoint. We'll assign care to hospitalist in a.m. 06/29. Williams Sanchez MD June 28, 2016 09:07
[2016-06-28] MEDS: CARVEDILOL 3.125 MG TAB PO SCH ×2 (11:13→20:27)
[2016-06-28] MEDS: SODIUM CHLORIDE 0.9% FLUSH 10 ML FLUSH IVF PRN (20:27)
[2016-06-29] VITALS (15 sets, daily range): BP systolic 115–157; BP diastolic 56–65; PULSE 62–67; RESP 15–30; TEMP 95.4–98.7; O2SAT 91–100
[2016-06-29] MEDS: PIPERACIL-TAZO 3.375 GM PREMIX 50 ML IV SCH ×4 (00:01→20:21)
[2016-06-29] MEDS: RESP: ALBUTEROL 2.5 MG/IPRATROPIUM 0.5 MG NEB (SCH) INH ×2 (03:18→07:33)
[2016-06-29] MEDS: CHLORHEXIDINE GLUCONATE 2 % 1 PACK (2 CLOTHS) TOP SCH (04:00)
--- NOTE | 2016-06-29 05:29 | RADRPT ---
EXAM DATE/TIME: 06/29/2016 02:27 [place] COMPARISON: CHEST SINGLE AP, June 28, 2016, 3:31. INDICATIONS : Evlauate for respiratory failure. MEDICAL HISTORY : Renal failure, chronic. Diabetes mellitus type II. SURGICAL HISTORY : None. ENCOUNTER: Subsequent ACUITY: 1 week PAIN SCORE: 0/10 LOCATION: chest FINDINGS: There has been no significant change with the appearance of the heart or lungs compared to the prior study. Bilateral pleural effusions and bibasilar atelectasis remain present. No evidence of pneumotho rax. The bony structures are stable. CONCLUSION: No significant interval change. Enrico Larsen MD on June 29, 2016 at 5:27 Board Certified Radiologist. This report was verified electronically.
[2016-06-29 06:55] LABS: AUTOMATED NEUTROPHIL # 2.1 TH/MM3 (1.8-7.7); BASOPHIL % 0.3 % (0.0-2.0); EOSINOPHIL # 0.1 TH/MM3 (0-0.4); EOSINOPHIL % 4.6 % (0.0-4.0); HEMATOCRIT 27.4 % (39.0-51.0); LYMPH % 18.7 % (9.0-44.0); LYMPHOCYTE # 0.6 TH/MM3 (1.0-4.8); MEAN CELL VOLUME 94.5 FL (80.0-100.0); MEAN CORPUSCULAR HEMOGLOBIN 31.1 PG (27.0-34.0); MONO % 9.3 % (0.0-8.0); NEUT % 67.1 % (16.0-70.0); PLATELET COUNT 66 TH/MM3 (150-450); RED CELL DISTRIBUTION WIDTH 17.4 % (11.6-17.2); WHITE BLOOD COUNT 3.2 TH/MM3 (4.0-11.0)
[2016-06-29] MEDS: INSULIN NovoLIN REGULAR SUPPLEMENTAL SCALE SQ SCH ×4 (07:00→20:21)
[2016-06-29 07:01] LABS: HEMO FLAGS AUTO DIFF
[2016-06-29 07:31] LABS: ALKALINE PHOSPHATASE 109 U/L (45-117); ALT (GPT) 15 U/L (12-78); ANION GAP 6 MEQ/L (5-15); AST (GOT) 22 U/L (15-37); BICARBONATE 32.9 MEQ/L (21.0-32.0); BLOOD UREA NITROGEN 22 MG/DL (7-18); CHLORIDE 101 MEQ/L (98-107); GLOMERULAR FILTRATION RATE 44 ML/MIN (>89); MAGNESIUM 1.7 MG/DL (1.5-2.5); POTASSIUM 3.4 MEQ/L (3.5-5.1); SODIUM (NA) 140 MEQ/L (136-145); TOTAL BILIRUBIN ADULT 0.8 MG/DL (0.2-1.0)
[2016-06-29 07:56] LABS: PLATELET ESTIMATE SMEAR LOW (NORMAL); PLATELET MORPHOLOGY NORMAL (NORMAL); SCAN/DIFF AUTO DIFF CONFIRMED
[2016-06-29] MEDS: PANTOPRAZOLE SODIUM 40 MG VIAL IV PUSH SCH ×2 (08:27→20:21)
[2016-06-29] MEDS: BUDESONIDE-FORMOTEROL 80/4.5 MCG INHALER INH SCH ×2 (08:27→20:21)
[2016-06-29] MEDS: NYSTATIN 100,000 U/GM PWD 15 GM BTL TOPICAL SCH ×2 (08:27→20:21)
[2016-06-29] MEDS: ASPIRIN 81 MG CHEW TAB CHEW SCH (08:28)
[2016-06-29] MEDS: FOLIC ACID 1 MG TAB PO SCH (08:28)
[2016-06-29] MEDS: AMIODARONE 200 MG TAB PO SCH (08:28)
[2016-06-29] MEDS: CALCIUM CARBONATE 500 MG CHEWABLE TAB CHEW SCH ×2 (08:28→20:21)
[2016-06-29] MEDS: LACTOBACILLUS ACIDOPHILUS TAB PO SCH ×3 (08:28→15:54)
[2016-06-29] MEDS: BUMETANIDE 1 MG TAB PO SCH ×2 (08:28→17:11)
[2016-06-29] MEDS: THIAMINE HCL 100 MG TAB PO SCH (08:28)
[2016-06-29] MEDS: MULTIVITAMIN TAB PO SCH (08:28)
[2016-06-29] MEDS: CARVEDILOL 3.125 MG TAB PO SCH ×2 (08:28→20:21)
[2016-06-29] MEDS: LACTULOSE SYRUP 20 GM/30 ML CUP PO SCH ×2 (09:00→20:25)
[2016-06-29] MEDS: RESP: ALBUTEROL 2.5 MG/3 ML NEB (PRN) NEB ×3 (10:10→21:25)
[2016-06-30] VITALS (15 sets, daily range): BP systolic 110–145; BP diastolic 53–65; PULSE 62–71; RESP 18–25; TEMP 97.2–98.8; O2SAT 92–96
[2016-06-30] MEDS: RESP: ALBUTEROL 2.5 MG/3 ML NEB (PRN) NEB ×5 (02:02→21:58)
[2016-06-30] MEDS: PIPERACIL-TAZO 3.375 GM PREMIX 50 ML IV SCH ×4 (03:37→20:35)
[2016-06-30] MEDS: CHLORHEXIDINE GLUCONATE 2 % 1 PACK (2 CLOTHS) TOP SCH ×2 (03:41→21:08)
[2016-06-30] MEDS: INSULIN NovoLIN REGULAR SUPPLEMENTAL SCALE SQ SCH ×4 (07:00→21:00)
[2016-06-30] MEDS: MULTIVITAMIN TAB PO SCH (08:10)
[2016-06-30] MEDS: LACTULOSE SYRUP 20 GM/30 ML CUP PO SCH ×2 (08:10→20:36)
[2016-06-30] MEDS: LACTOBACILLUS ACIDOPHILUS TAB PO SCH ×3 (08:10→16:30)
[2016-06-30] MEDS: PANTOPRAZOLE SODIUM 40 MG VIAL IV PUSH SCH ×2 (08:10→20:36)
[2016-06-30] MEDS: FOLIC ACID 1 MG TAB PO SCH (08:10)
[2016-06-30] MEDS: THIAMINE HCL 100 MG TAB PO SCH (08:10)
[2016-06-30] MEDS: ASPIRIN 81 MG CHEW TAB CHEW SCH (08:10)
[2016-06-30] MEDS: AMIODARONE 200 MG TAB PO SCH (08:11)
[2016-06-30] MEDS: CARVEDILOL 3.125 MG TAB PO SCH ×2 (08:11→20:37)
[2016-06-30] MEDS: BUMETANIDE 1 MG TAB PO SCH ×2 (08:11→16:41)
[2016-06-30] MEDS: CALCIUM CARBONATE 500 MG CHEWABLE TAB CHEW SCH ×2 (08:11→20:37)
[2016-06-30] MEDS: BUDESONIDE-FORMOTEROL 80/4.5 MCG INHALER INH SCH ×2 (08:11→20:35)
[2016-06-30] MEDS: SODIUM CHLORIDE 0.9% FLUSH 10 ML FLUSH IVF PRN (08:11)
[2016-06-30] MEDS: NYSTATIN 100,000 U/GM PWD 15 GM BTL TOPICAL SCH ×2 (08:11→21:06)
--- NOTE | 2016-06-30 08:35 | HHI.PR ---
Subjective Remarks Critical Care Notes: The patient is a 66-year-old male with a past medical history of diabetes mellitus, bronchial asthma, ETOH use, cirrhosis of the liver, who presented to [facility] ED from a nursing facility for shortness of breath. The patient was recently hospitalized in the end of April, for GI bleed secondary to large duodenal ulcer. In addition he underwent arteriogram and embolization of the right gastric and GDA on May 18. He required multiple blood transfusions, intubation and mechanical ventilation. In addition, the patient had two endoscopies. On arrival to the ED the patient was hypotensive with blood pressure 94/50 and his laboratory data showed mild acute kidney injury with a BUN of 21, creatinine 1.86, lactic acidosis with lactic acid level 3.6 and elevated BNP at 427. In addition, he was found to have elevated D -dimer at 12.28. CT scan of the brain was obtained which showed no atrophy, otherwise no acute intracranial abnormalities. A VQ scan was obtained as well in the ER which showed low probability for pulmonary embolism. His initial chest x-ray from early this morning showed bilateral pleural effusions and patchy bilateral pulmonary infiltrates. Central line was placed by ED physician and a repeat chest x-ray showed right IJ central line in good position , bilateral effusions with bilateral parenchymal densities, right greater than the left. In the ER he was given 2 liters of crystalloids in addition to vancomycin, Zosyn, Solu-Medrol, bronchodilator and Bumex. He was hypotensive in the ER and the patient was placed on Levophed which is currently at three mics. Due to his respiratory distress, the patient was intubated and placed on full mechanical ventilation. When seen he is on Diprivan infusion for sedation. However, the patient is awake, alert and follows commands. ABG post intubation showed a pH of 7.35, CO2 48, pAO2 325, bicarb 26, saturation of 98%. 06/26: Patient is sedated with Diprivan. Afebrile. Off Levophed. 06/27: Extubated 06/26. Of all vasopressors. Currently on nasal cannula. Tolerating diet. 06/28: Currently complaining of chest discomfort/pleuritic with breathing and shortness of breath. On 4 L nasal cannula. Complaining of difficulty with swallowing. No bowel movement. Up in chair 4 hours yesterday. Hospitalist Notes: 06/30: The patient is been given to me today by Hospitalist Coordinator. seen in his bedroom and discussed with nurse Miss Etienne No nausea, vomit or diarrhea. Objective Vital Signs Date Time Temp Pulse Resp B/P Pulse Ox O2 Delivery O2 Flow Rate FiO2 06/30/16 08:00 62 06/30/16 06:00 64 06/30/16 04:00 98.5 71 18 117/57 92 06/30/16 04:00 71 06/30/16 02:00 64 06/30/16 00:00 98.8 64 20 110/53 96 06/30/16 00:00 64 06/29/16 22:00 63 06/29/16 21:29 93 Nasal Cannula 3.00 06/29/16 20:00 98.3 67 25 142/65 94 06/29/16 20:00 67 06/29/16 18:00 67 06/29/16 16:00 95.4 66 30 115/56 91 06/29/16 16:00 66 06/29/16 14:00 65 06/29/16 12:06 65 06/29/16 12:00 98.2 65 22 157/62 94 06/29/16 10:00 65 I/O 06/29/16 06/29/16 06/29/16 06/30/16 06/30/16 06/30/16 07:00 15:00 23:00 07:00 15:00 23:00 Intake Total 305 ml 271 ml 345 ml 264 ml Output Total 300 ml 490 ml 500 ml 550 ml Balance 5 ml -219 ml -155 ml -286 ml Intake Oral 240 ml 200 ml 240 ml 200 ml IV Total 65 ml 71 ml 105 ml 64 ml Output Urine Total 300 ml 490 ml 500 ml 550 ml # Bowel Movements 0 0 0 0 Result Diagram: 06/29/16 0540 06/29/16 0540 Imaging Last Impressions Chest X-Ray 06/29/16 0600 Signed Impressions: Service Date/Time: Wednesday, June 29, 2016 02:27 - CONCLUSION: No significant interval change. Enrico Larsen MD Upper Extremity Ultrasound 06/25/16 0000 Signed Impressions: Service Date/Time: Saturday, June 25, 2016 12:29 - CONCLUSION: 1. Occlusive thrombus in the left cephalic vein. 2. No deep venous thrombosis from the right arm.. Pepito Kulkarni MD Renal Ultrasound 06/25/16 0000 Signed Impressions: Service Date/Time: Saturday, June 25, 2016 22:41 - CONCLUSION: 1. Unremarkable kidneys. 2. Small volume ascites. 3. Bilateral pleural effusions. 4. Splenomegaly. Carroll Joel Jr., MD Lung Scan-VQ Nuclear Medicine 06/25/16 0000 Signed Impressions: Service Date/Time: Saturday, June 25, 2016 08:33 - CONCLUSION: Low probability for pulmonary embolism. Moderate ventilatory defect. Alexy Padron MD FACR Head CT 06/25/16 0000 Signed Impressions: Service Date/Time: Saturday, June 25, 2016 04:22 - CONCLUSION: 1. Atrophy. 2. No acute intracranial abnormality. Carroll Joel Jr., MD Procedures No procedures performed. Other Results Laboratory Tests Test 06/26/16 06/26/16 06/26/16 06/26/16 05:41 09:45 12:00 14:45 Acanthocytes OCC Prothrombin Time 14.4 SEC Prothromb Time International 1.3 RATIO Ratio Fibrinogen 279 mg/dL Direct Bilirubin 0.4 MG/DL Indirect Bilirubin 0.3 MG/DL Heparin-Induced Platelet Ab NEGATIVE (Jeri) HIPA Patient Optical Density 0.211 O.D. Blood Gas Puncture Site RT RADIAL Blood Gas Patient Temperature 98.6 Blood Gas HCO3 23 mmol/L Blood Gas Base Excess -0.5 mmol/L Blood Gas Oxygen Saturation 94 % Arterial Blood pH 7.42 Arterial Blood Partial 37 mmHg Pressure CO2 Arterial Blood Partial 80 mmHg Pressure O2 Arterial Blood Oxygen Content 11.2 Vol % Arterial Blood 1.5 % Carboxyhemoglobin Arterial Blood Methemoglobin 1.0 % Blood Gas Hemoglobin 8.4 G/DL Oxygen Delivery Device VENTILATOR Blood Gas Ventilator Setting CPAP 10/+5 Blood Gas Inspired Oxygen 40 % Iron Level 101 MCG/DL Total Iron Binding Capacity 108 MCG/DL Percent Iron Saturation 93.7 % Ferritin 1317 NG/ML 25-Hydroxy Vitamin D Total 23.5 ng/ML Parathyroid Hormone (Intact) 91.3 PG/ML Test 06/27/16 06/27/16 06/28/16 06/29/16 04:45 10:56 03:45 05:40 Ovalocytes 1+ Rouleau PRESENT Ammonia 40 MCMOL/L Keratocytes OCC White Blood Count 3.2 TH/MM3 Red Blood Count 2.90 MIL/MM3 Hemoglobin 9.0 GM/DL Hematocrit 27.4 % Mean Corpuscular Volume 94.5 FL Mean Corpuscular Hemoglobin 31.1 PG Mean Corpuscular Hemoglobin 33.0 % Concent Red Cell Distribution Width 17.4 % Platelet Count 66 TH/MM3 Mean Platelet Volume 7.7 FL Neutrophils (%) (Auto) 67.1 % Lymphocytes (%) (Auto) 18.7 % Monocytes (%) (Auto) 9.3 % Eosinophils (%) (Auto) 4.6 % Basophils (%) (Auto) 0.3 % Neutrophils # (Auto) 2.1 TH/MM3 Lymphocytes # (Auto) 0.6 TH/MM3 Monocytes # (Auto) 0.3 TH/MM3 Eosinophils # (Auto) 0.1 TH/MM3 Basophils # (Auto) 0.0 TH/MM3 CBC Comment AUTO DIFF Differential Comment AUTO DIFF CONFIRMED Platelet Estimate LOW Platelet Morphology Comment NORMAL Sodium Level 140 MEQ/L Potassium Level 3.4 MEQ/L Chloride Level 101 MEQ/L Carbon Dioxide Level 32.9 MEQ/L Anion Gap 6 MEQ/L Blood Urea Nitrogen 22 MG/DL Creatinine 1.57 MG/DL Estimat Glomerular Filtration 44 ML/MIN Rate Random Glucose 195 MG/DL Calcium Level 7.8 MG/DL Phosphorus Level 2.0 MG/DL Magnesium Level 1.7 MG/DL Total Bilirubin 0.8 MG/DL Aspartate Amino Transf 22 U/L (AST/SGOT) Alanine Aminotransferase 15 U/L (ALT/SGPT) Alkaline Phosphatase 109 U/L Total Protein 6.1 GM/DL Albumin 1.5 GM/DL Objective Remarks GENERAL: No acute distress, eating in bed. SKIN: Warm and dry. No rash HEAD: Normocephalic. EYES: No scleral icterus. No injection or drainage. NECK: Supple, trachea midline. No JVD or lymphadenopathy. Orally intubated CARDIOVASCULAR: Regular rate and rhythm . S1, S2 no S4. Without murmurs, gallops, or rubs. RESPIRATORY: Coarse crackles appreciated throughout lung bailey. No wheezing. Breath sounds equal bilaterally. No accessory muscle use. GASTROINTESTINAL: Abdomen soft, non-tender, nondistended. MUSCULOSKELETAL: No significant peripheral edema Neuro: Cranial nerve II through XII grossly intact. Strength equal/symmetric bilaterally. Normal sensation Medications and IVs Current Medications Medications (Trade) Dose Ordered Sig/Irene Route Start Time Stop Time Status Last Admin (NS Flush) 2 ml UNSCH PRN IVF 06/25/16 03:30 06/30/16 08:11 (NS Flush) 2 ml UNSCH PRN IVF 06/25/16 03:30 (Brethine Inj) 1 mg UNSCH PRN SQ 06/25/16 06:15 Miscellaneous Information 1 Q361D XX 06/25/16 10:45 (Chlorhexidine 2% Cloth) 3 pack Taper DAILY@04 TOP 06/26/16 04:00 06/22/17 03:59 06/30/16 03:41 (Chlorhexidine 2% Cloth) 3 pack UNSCH PRN TOP 06/25/16 10:45 (D50w (Vial) Inj) 25 ml UNSCH PRN IV PUSH 06/25/16 10:45 (Glucagon Inj) 1 mg UNSCH PRN OTHER 06/25/16 10:45 (Aspirin Chew) 81 mg DAILY CHEW 06/25/16 14:00 06/30/16 08:10 (Vitamin B1) 100 mg DAILY PO 06/25/16 15:00 06/30/16 08:10 (Symbicort 80-4.5 Mcg Inh) 2 puff Q12HR INH 06/26/16 23:00 06/30/16 08:11 (Tums Chew) 500 mg BID CHEW 06/27/16 09:00 06/30/16 08:11 (Lactinex) 1 tab TIDAC PO 06/27/16 12:00 06/30/16 08:10 (Lactulose Liq) 30 ml BID PO 06/27/16 09:00 06/30/16 08:10 (Mycostatin Powder) 1 applic Q12HR TOPICAL 06/27/16 09:00 06/30/16 08:11 (Cordarone) 200 mg DAILY PO 06/28/16 09:00 06/30/16 08:11 (Protonix Inj) 40 mg BID IV PUSH 06/27/16 21:00 06/30/16 08:10 (Folate) 1 mg DAILY PO 06/28/16 09:00 06/30/16 08:10 (Theragran) 1 tab DAILY PO 06/28/16 09:00 06/30/16 08:10 (Roxicodone) 5 mg Q6H PRN PO 06/27/16 09:30 (Drisdol) 50,000 units Q7D PO 06/27/16 20:00 06/27/16 20:07 (Bumetanide) 1 mg BID@09,18 PO 06/28/16 09:00 06/30/16 08:11 (NovoLIN R SUPPLEMENTAL SCALE) 1 ACHS SQ 06/28/16 11:00 06/29/16 20:21 Carvedilol 3.125 mg 3.125 mg Q12HR PO 06/28/16 09:00 06/30/16 08:11 (Zosyn 3.375 Gm Premix) 50 ml @ 100 mls/hr Q6H IV 06/29/16 15:00 06/30/16 08:10 A/P Assessment and Plan 1. EtOH/History of hepatic Encephalopathy, to continue lactulose 30 ml BID, Oxycodone for pain management, Thiamine 2. CHF chronic Systolic/pericardial Effusion/Atrial Fibrillation Echocardiogram 06/25 EF 35-40%, No regional wall motion abnormality, non candidate for left heart catheterization, Coreg 3.125 mg BID, aspirin 81 mg daily, Amiodarone 400 mg BID, decreased to 200 mg daily, no signs of tamponade 3. Acute Hypoxemic respiratory failure/CHF exacerbation and Infectious etiology , Bronchial Asthma, Bilateral Pleural effusions Bronchodilator, Mucolytic and incentive spirometry. V/Q scan low probability for Pulmonary embolism 4. 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 Protonix 40 mg BID, Lactulose 30 ml BID, Ammonia level 40. 5. BPH by history no signs or Urinary retention 6. DM II, elevated parathyroid hormone/Low Vitamin D 25. Uncontrolled, on Levemir, sliding scale, scheduled regular insulin with meals. 7. Acute Renal Injury. Nephrology specialist Following, Bumex 1 mg BID, Renal US no Hydronephrosis Improving slowly. 8. Left Cephalic vein thrombosis/Thrombocytopenia 9. recently treated Left knee osteomyelitis Vancomycin and Diflucan, CAP on Zosyn day #6 blood cultures No Growth. PT evaluate and treat Prophylaxis - GI - Protonix - DVT - SCD/pharmacological prophylaxis held due to GI bleed Discharge Planning expected in two to three days. Murphy Cedeno MD June 30, 2016 08:35 Patient is stable from a critical care medicine standpoint. We'll assign care to hospitalist in a.m. 06/29. Williams Sanchez MD June 28, 2016 09:07 Murphy Cedeno MD June 30, 2016 08:35
[2016-06-30 11:20] LABS: HEMATOCRIT 26.8 % (39.0-51.0); MEAN CELL VOLUME 94.5 FL (80.0-100.0); MEAN CORPUSCULAR HEMOGLOBIN 31.3 PG (27.0-34.0); MEAN CORPUSCULAR HGB CONC 33.1 % (32.0-36.0); PLATELET COUNT 68 TH/MM3 (150-450); RED BLOOD COUNT 2.83 MIL/MM3 (4.50-5.90)
[2016-06-30 11:23] LABS: REVIEW FLAG FINAL
[2016-06-30 12:07] LABS: BICARBONATE 33.1 MEQ/L (21.0-32.0); POTASSIUM 3.4 MEQ/L (3.5-5.1)
[2016-06-30] MEDS ORDERED: POTASSIUM CHLORIDE 20 MEQ CONTROLLED RELEASE TAB PO ONE (17:45)
[2016-06-30] MEDS: MAGNESIUM OXIDE 400 MG TAB PO SCH (20:37)
[2016-06-30] MEDS: INSULIN DETEMIR 100 UNITS/ML VIAL SQ SCH (21:07)
[2016-07-01] VITALS (14 sets, daily range): BP systolic 106–138; BP diastolic 53–63; PULSE 62–69; RESP 16–26; TEMP 97.9–98.4; O2SAT 92–97
[2016-07-01] MEDS: PIPERACIL-TAZO 3.375 GM PREMIX 50 ML IV SCH ×4 (03:04→19:40)
[2016-07-01] MEDS: RESP: ALBUTEROL 2.5 MG/3 ML NEB (PRN) NEB ×4 (05:28→19:16)
[2016-07-01] MEDS: INSULIN NovoLIN REGULAR SUPPLEMENTAL SCALE SQ SCH ×4 (06:22→21:20)
[2016-07-01] MEDS: INSULIN HUMAN REGULAR 1,000 UNITS/10 ML VIAL SQ SCH ×3 (08:00→17:00)
[2016-07-01] MEDS: LACTOBACILLUS ACIDOPHILUS TAB PO SCH ×3 (08:00→17:11)
--- NOTE | 2016-07-01 08:04 | HHI.PR ---
Subjective Remarks Critical Care Notes: The patient is a 66-year-old male with a past medical history of diabetes mellitus, bronchial asthma, ETOH use, cirrhosis, who presented to [facility] ED from a nursing facility for shortness of breath. The patient was recently hospitalized in the end of April, for GI bleed secondary to large duodenal ulcer. 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 He required multiple blood transfusions, intubation and mechanical ventilation. In addition , the patient had two endoscopies. On arrival to the ED the patient was hypotensive with blood pressure 94/50 and his laboratory data showed mild acute kidney injury with a BUN of 21, creatinine 1.86, lactic acidosis with lactic acid level 3.6 and elevated BNP at 427. In addition, he was found to have elevated D-dimer at 12.28. CT scan of the brain was obtained which showed no atrophy, otherwise no acute intracranial abnormalities. A VQ scan was obtained as well in the ER which showed low probability for pulmonary embolism. His initial chest x-ray from early this morning showed bilateral pleural effusions and patchy bilateral pulmonary infiltrates. Central line was placed by ED physician and a repeat chest x-ray showed right IJ central line in good position , bilateral effusions with bilateral parenchymal densities, right greater than the left. In the ER he was given 2 liters of crystalloids in addition to vancomycin, Zosyn, Solu-Medrol, bronchodilator and Bumex. He was hypotensive in the ER and the patient was placed on Levophed which is currently at three mics. Due to his respiratory distress, the patient was intubated and placed on full mechanical ventilation. When seen he is on Diprivan infusion for sedation. However, the patient is awake, alert and follows commands. ABG post intubation showed a pH of 7.35, CO2 48, pAO2 325, bicarb 26, saturation of 98%. 06/26: Patient is sedated with Diprivan. Afebrile. Off Levophed. 06/27: Extubated 06/26. Of all vasopressors. Currently on nasal cannula. Tolerating diet. 06/28: Currently complaining of chest discomfort/pleuritic with breathing and shortness of breath. On 4 L nasal cannula. Complaining of difficulty with swallowing. No bowel movement. Up in chair 4 hours yesterday. Hospitalist Notes: 06/30: The patient is been given to me today by Hospitalist Coordinator. seen in his bedroom and discussed with nurse Miss Etienne No nausea, vomit or diarrhea. 07/01: Patient stable discussed with nurse Jaimie, no nausea, vomit or diarrhea, improving clinically, no complaint, mild uncontrolled blood sugar, increased Levemir, will get new CXR in am tomorrow, if improving may be discharged home, also his electrolytes were replaced and continue following. has Dysphonia after endotracheal intubation and extubation, may need ENT evaluation. Objective Vital Signs Date Time Temp Pulse Resp B/P Pulse Ox O2 Delivery O2 Flow Rate FiO2 07/01/16 06:00 67 07/01/16 04:00 67 07/01/16 04:00 98.4 67 23 108/53 94 07/01/16 02:00 65 07/01/16 00:00 98.2 65 26 132/62 93 07/01/16 00:00 65 06/30/16 22:00 64 06/30/16 20:00 97.2 69 25 119/56 93 06/30/16 20:00 69 06/30/16 19:55 96 Nasal Cannula 3.00 06/30/16 18:00 67 06/30/16 16:00 64 06/30/16 16:00 98.1 64 18 123/59 96 06/30/16 14:00 62 06/30/16 12:00 62 06/30/16 12:00 98.0 62 18 122/58 96 06/30/16 10:00 63 06/30/16 08:33 93 Nasal Cannula 3.00 06/30/16 08:26 93 Nasal Cannula 3.00 I/O 06/30/16 06/30/16 06/30/16 07/01/16 07/01/16 07/01/16 07:00 15:00 23:00 07:00 15:00 23:00 Intake Total 264 ml 500 ml 262 ml 262 ml Output Total 550 ml 500 ml 650 ml 500 ml Balance -286 ml 0 ml -388 ml -238 ml Intake Oral 200 ml 400 ml 200 ml 200 ml IV Total 64 ml 100 ml 62 ml 62 ml Output Urine Total 550 ml 500 ml 650 ml 500 ml # Voids 3 2 # Bowel Movements 0 0 Result Diagram: 06/30/16 1030 06/30/16 1030 Imaging Last Impressions Chest X-Ray 06/29/16 0600 Signed Impressions: Service Date/Time: Wednesday, June 29, 2016 02:27 - CONCLUSION: No significant interval change. Enrico Larsen MD Upper Extremity Ultrasound 06/25/16 0000 Signed Impressions: Service Date/Time: Saturday, June 25, 2016 12:29 - CONCLUSION: 1. Occlusive thrombus in the left cephalic vein. 2. No deep venous thrombosis from the right arm.. Pepito Kulkarni MD Renal Ultrasound 06/25/16 0000 Signed Impressions: Service Date/Time: Saturday, June 25, 2016 22:41 - CONCLUSION: 1. Unremarkable kidneys. 2. Small volume ascites. 3. Bilateral pleural effusions. 4. Splenomegaly. Carroll Joel Jr., MD Lung Scan-V Nuclear Medicine 06/25/16 0000 Signed Impressions: Service Date/Time: Saturday, June 25, 2016 08:33 - CONCLUSION: Low probability for pulmonary embolism. Moderate ventilatory defect. Alexy Padron MD FACR Head CT 06/25/16 0000 Signed Impressions: Service Date/Time: Saturday, June 25, 2016 04:22 - CONCLUSION: 1. Atrophy. 2. No acute intracranial abnormality. Carroll Joel Jr., MD Procedures Endotracheal intubation and Extubation Vasopressor use. Other Results Laboratory Tests Test 06/26/16 06/27/16 06/27/16 06/28/16 09:45 04:45 10:56 03:45 Heparin-Induced Platelet Ab NEGATIVE (Jeri) HIPA Patient Optical Density 0.211 O.D. Ovalocytes 1+ Rouleau PRESENT Ammonia 40 MCMOL/L Keratocytes OCC Test 06/29/16 06/30/16 05:40 10:30 Neutrophils (%) (Auto) 67.1 % Lymphocytes (%) (Auto) 18.7 % Monocytes (%) (Auto) 9.3 % Eosinophils (%) (Auto) 4.6 % Basophils (%) (Auto) 0.3 % Neutrophils # (Auto) 2.1 TH/MM3 Lymphocytes # (Auto) 0.6 TH/MM3 Monocytes # (Auto) 0.3 TH/MM3 Eosinophils # (Auto) 0.1 TH/MM3 Basophils # (Auto) 0.0 TH/MM3 CBC Comment AUTO DIFF Differential Comment AUTO DIFF CONFIRMED Platelet Estimate LOW Platelet Morphology Comment NORMAL Phosphorus Level 2.0 MG/DL Magnesium Level 1.7 MG/DL Total Bilirubin 0.8 MG/DL Aspartate Amino Transf 22 U/L (AST/SGOT) Alanine Aminotransferase 15 U/L (ALT/SGPT) Alkaline Phosphatase 109 U/L Total Protein 6.1 GM/DL Albumin 1.5 GM/DL White Blood Count 3.0 TH/MM3 Red Blood Count 2.83 MIL/MM3 Hemoglobin 8.9 GM/DL Hematocrit 26.8 % Mean Corpuscular Volume 94.5 FL Mean Corpuscular Hemoglobin 31.3 PG Mean Corpuscular Hemoglobin 33.1 % Concent Red Cell Distribution Width 18.0 % Platelet Count 68 TH/MM3 Mean Platelet Volume 7.5 FL Sodium Level 139 MEQ/L Potassium Level 3.4 MEQ/L Chloride Level 99 MEQ/L Carbon Dioxide Level 33.1 MEQ/L Anion Gap 7 MEQ/L Blood Urea Nitrogen 21 MG/DL Creatinine 1.59 MG/DL Estimat Glomerular Filtration 44 ML/MIN Rate Random Glucose 219 MG/DL Calcium Level 7.6 MG/DL Objective Remarks GENERAL: No acute distress, eating in bed. SKIN: Warm and dry. No rash HEAD: Normocephalic. EYES: No scleral icterus. No injection or drainage. NECK: Supple, trachea midline. No JVD or lymphadenopathy. Orally intubated CARDIOVASCULAR: Regular rate and rhythm . S1, S2 no S4. Without murmurs, gallops, or rubs. RESPIRATORY: decreased breath sounds bilateral, soft inspiratory crackles on both bases. GASTROINTESTINAL: Abdomen soft, non-tender, nondistended. MUSCULOSKELETAL: No significant peripheral edema Neuro: Cranial nerve II through XII grossly intact. Strength equal/symmetric bilaterally. Normal sensation Medications and IVs Current Medications Medications (Trade) Dose Ordered Sig/Irene Route Start Time Stop Time Status Last Admin (NS Flush) 2 ml UNSCH PRN IVF 06/25/16 03:30 06/30/16 08:11 (NS Flush) 2 ml UNSCH PRN IVF 06/25/16 03:30 (Brethine Inj) 1 mg UNSCH PRN SQ 06/25/16 06:15 Miscellaneous Information 1 Q361D XX 06/25/16 10:45 06/25/16 10:45 (Chlorhexidine 2% Cloth) Taper DAILY@04 TOP 06/26/16 04:00 06/22/17 03:59 06/30/16 03:41 (Chlorhexidine 2% Cloth) 3 pack UNSCH PRN TOP 06/25/16 10:45 (D50w (Vial) Inj) 25 ml UNSCH PRN IV PUSH 06/25/16 10:45 (Glucagon Inj) 1 mg UNSCH PRN OTHER 06/25/16 10:45 (Aspirin Chew) 81 mg DAILY CHEW 06/25/16 14:00 06/30/16 08:10 (Vitamin B1) 100 mg DAILY PO 06/25/16 15:00 06/30/16 08:10 (Symbicort 80-4.5 Mcg Inh) 2 puff Q12HR INH 06/26/16 23:00 06/30/16 20:35 (Tums Chew) 500 mg BID CHEW 06/27/16 09:00 06/30/16 20:37 (Lactinex) 1 tab TIDAC PO 06/27/16 12:00 06/30/16 16:30 (Lactulose Liq) 30 ml BID PO 06/27/16 09:00 06/30/16 20:36 (Mycostatin Powder) 1 applic Q12HR TOPICAL 06/27/16 09:00 06/30/16 21:06 (Cordarone) 200 mg DAILY PO 06/28/16 09:00 06/30/16 08:11 (Protonix Inj) 40 mg BID IV PUSH 06/27/16 21:00 06/30/16 20:36 (Folate) 1 mg DAILY PO 06/28/16 09:00 06/30/16 08:10 (Theragran) 1 tab DAILY PO 06/28/16 09:00 06/30/16 08:10 (Roxicodone) 5 mg Q6H PRN PO 06/27/16 09:30 (Drisdol) 50,000 units Q7D PO 06/27/16 20:00 06/27/16 20:07 (Bumetanide) 1 mg BID@,18 PO 06/28/16 09:00 06/30/16 16:41 Carvedilol 3.125 mg 3.125 mg Q12HR PO 06/28/16 09:00 06/30/16 20:37 (Zosyn 3.375 Gm Premix) 50 ml @ 100 mls/hr Q6H IV 06/29/16 15:00 07/01/16 03:04 (Mag-Ox) 400 mg Q12HR PO 06/30/16 21:00 06/30/16 20:37 (Levemir Inj) 10 units BID SQ 06/30/16 21:00 06/30/16 21:07 (NovoLIN R INJ) 5 units TIDAC SQ 07/01/16 08:00 A/P Assessment and Plan 1. EtOH/History of hepatic Encephalopathy, to continue lactulose 30 ml BID, Oxycodone for pain management, Thiamine 2. CHF chronic Systolic/pericardial Effusion/Atrial Fibrillation Echocardiogram 06/25 EF 35-40%, No regional wall motion abnormality, non candidate for left heart catheterization, Coreg 3.125 mg BID, aspirin 81 mg daily, Amiodarone 400 mg BID, decreased to 200 mg daily, no signs of tamponade Improving clinically. 3. Acute Hypoxemic respiratory failure/CHF exacerbation and Infectious etiology , Bronchial Asthma, Bilateral Pleural effusions Bronchodilator, Mucolytic and incentive spirometry. V/Q scan low probability for Pulmonary embolism 4. 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 Protonix 40 mg BID, Lactulose 30 ml BID, Ammonia level 40. 5. BPH by history no signs or Urinary retention 6. DM II, elevated parathyroid hormone/Low Vitamin D 25. Uncontrolled, on Levemir, sliding scale, scheduled regular insulin with meals. 7. Acute Renal Injury. Nephrology specialist Following, Bumex 1 mg BID, Renal US no Hydronephrosis Improving slowly. 8. Left Cephalic vein thrombosis/Thrombocytopenia 9. recently treated Left knee osteomyelitis Vancomycin and Diflucan, CAP on Zosyn day #7 blood cultures No Growth. PT evaluate and treat Prophylaxis - GI - Protonix - DVT - SCD/pharmacological prophylaxis held due to GI bleed Discharge Planning expected in two to three days. Murphy Cedeno MD July 01, 2016 08:04
[2016-07-01] MEDS: BUMETANIDE 1 MG TAB PO SCH ×2 (09:32→17:11)
[2016-07-01] MEDS: MULTIVITAMIN TAB PO SCH (09:32)
[2016-07-01] MEDS: CALCIUM CARBONATE 500 MG CHEWABLE TAB CHEW SCH ×2 (09:32→19:39)
[2016-07-01] MEDS: THIAMINE HCL 100 MG TAB PO SCH (09:32)
[2016-07-01] MEDS: CARVEDILOL 3.125 MG TAB PO SCH ×2 (09:32→19:39)
[2016-07-01] MEDS: AMIODARONE 200 MG TAB PO SCH (09:32)
[2016-07-01] MEDS: ASPIRIN 81 MG CHEW TAB CHEW SCH (09:32)
[2016-07-01] MEDS: LACTULOSE SYRUP 20 GM/30 ML CUP PO SCH ×2 (09:32→19:43)
[2016-07-01] MEDS: PANTOPRAZOLE SODIUM 40 MG VIAL IV PUSH SCH ×2 (09:32→19:39)
[2016-07-01] MEDS: FOLIC ACID 1 MG TAB PO SCH (09:32)
[2016-07-01] MEDS: INSULIN DETEMIR 100 UNITS/ML VIAL SQ SCH ×2 (09:34→19:41)
[2016-07-01] MEDS: NYSTATIN 100,000 U/GM PWD 15 GM BTL TOPICAL SCH ×2 (09:34→19:39)
[2016-07-01] MEDS: BUDESONIDE-FORMOTEROL 80/4.5 MCG INHALER INH SCH ×2 (09:34→19:39)
[2016-07-01] MEDS: MAGNESIUM OXIDE 400 MG TAB PO SCH ×2 (09:35→19:39)
[2016-07-01 11:03] LABS: BICARBONATE 33.9 MEQ/L (21.0-32.0); MAGNESIUM 1.6 MG/DL (1.5-2.5); POTASSIUM 3.5 MEQ/L (3.5-5.1)
[2016-07-01] MEDS ORDERED: MAGNESIUM SULFATE 1 GM PREMIX 100 ML IV ONE (14:45)
[2016-07-01] MEDS ORDERED: POTASSIUM CHLORIDE 20 MEQ CONTROLLED RELEASE TAB PO ONE (14:45)
[2016-07-01] MEDS ORDERED: SODIUM PHOSPHATE INJ 15 MMOL in SODIUM CHLORIDE 0.9% INJ 150 ML IV ONE (16:00)
[2016-07-02] VITALS (13 sets, daily range): BP systolic 99–155; BP diastolic 50–70; PULSE 61–75; RESP 19–36; TEMP 98–98.5; O2SAT 94–100
[2016-07-02] MEDS: PIPERACIL-TAZO 3.375 GM PREMIX 50 ML IV SCH ×4 (01:48→21:36)
[2016-07-02] MEDS: CHLORHEXIDINE GLUCONATE 2 % 1 PACK (2 CLOTHS) TOP SCH (03:11)
[2016-07-02] MEDS: RESP: ALBUTEROL 2.5 MG/3 ML NEB (PRN) NEB ×4 (03:52→22:31)
--- NOTE | 2016-07-02 06:01 | RADRPT ---
EXAM DATE/TIME: 07/02/2016 05:21 [place] COMPARISON: CHEST SINGLE AP, June 29, 2016, 2:27. INDICATIONS : Respiratory failure and pleural effusions. MEDICAL HISTORY : Renal failure, chronic. Diabetes mellitus type II. SURGICAL HISTORY : None. ENCOUNTER: Subsequent ACUITY: 1 week PAIN SCORE: Non-responsive. LOCATION: Bilateral chest FINDINGS: AP and lateral views of the chest were obtained and demonstrate moderate-sized bilateral posterior la yering effusions with blunting of the costophrenic angles. The heart size is enlarged. There is hazy opacity in both lungs. The bony thorax remains intact. CONCLUSION: 1. No significant change. 2. Bilateral moderate-sized pleural effusions with mild hazy opacity. Carlos Watts MD on July 02, 2016 at 5:58 Board Certified Radiologist. This report was verified electronically.
[2016-07-02] MEDS: INSULIN NovoLIN REGULAR SUPPLEMENTAL SCALE SQ SCH ×4 (06:52→21:00)
[2016-07-02 07:12] LABS: BICARBONATE 36.2 MEQ/L (21.0-32.0); POTASSIUM 3.4 MEQ/L (3.5-5.1)
[2016-07-02] MEDS: INSULIN HUMAN REGULAR 1,000 UNITS/10 ML VIAL SQ SCH ×3 (08:00→17:34)
--- NOTE | 2016-07-02 08:02 | HHI.PR ---
Subjective Remarks Critical Care Notes: The patient is a 66-year-old male with a past medical history of diabetes mellitus, bronchial asthma, ETOH use, cirrhosis, who presented to [facility] ED from a nursing facility for shortness of breath. The patient was recently hospitalized in the end of April, for GI bleed secondary to large duodenal ulcer. 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 He required multiple blood transfusions, intubation and mechanical ventilation. In addition , the patient had two endoscopies. On arrival to the ED the patient was hypotensive with blood pressure 94/50 and his laboratory data showed mild acute kidney injury with a BUN of 21, creatinine 1.86, lactic acidosis with lactic acid level 3.6 and elevated BNP at 427. In addition, he was found to have elevated D-dimer at 12.28. CT scan of the brain was obtained which showed no atrophy, otherwise no acute intracranial abnormalities. A VQ scan was obtained as well in the ER which showed low probability for pulmonary embolism. His initial chest x-ray from early this morning showed bilateral pleural effusions and patchy bilateral pulmonary infiltrates. Central line was placed by ED physician and a repeat chest x-ray showed right IJ central line in good position , bilateral effusions with bilateral parenchymal densities, right greater than the left. In the ER he was given 2 liters of crystalloids in addition to vancomycin, Zosyn, Solu-Medrol, bronchodilator and Bumex. He was hypotensive in the ER and the patient was placed on Levophed which is currently at three mics. Due to his respiratory distress, the patient was intubated and placed on full mechanical ventilation. When seen he is on Diprivan infusion for sedation. However, the patient is awake, alert and follows commands. ABG post intubation showed a pH of 7.35, CO2 48, pAO2 325, bicarb 26, saturation of 98%. 06/26: Patient is sedated with Diprivan. Afebrile. Off Levophed. 06/27: Extubated 06/26. Of all vasopressors. Currently on nasal cannula. Tolerating diet. 06/28: Currently complaining of chest discomfort/pleuritic with breathing and shortness of breath. On 4 L nasal cannula. Complaining of difficulty with swallowing. No bowel movement. Up in chair 4 hours yesterday. Hospitalist Notes: 06/30: The patient is been given to me today by Hospitalist Coordinator. seen in his bedroom and discussed with nurse Miss Etienne No nausea, vomit or diarrhea. 07/01: Patient stable discussed with nurse Miss Etienne, no nausea, vomit or diarrhea, improving clinically, no complaint, mild uncontrolled blood sugar, increased Levemir, will get new CXR in am tomorrow, if improving may be discharged home, also his electrolytes were replaced and continue following. has Dysphonia after endotracheal intubation and extubation, may need ENT evaluation. 07/02: Seen in his bedroom in the presence of his Brother Mr. Randy Onofre the patient states he developed dysphonia after Endotracheal intubation he is improving may need ENT evaluation in house or as outpatient, asked for ENT evaluation, also will get CT chest he continue with pulmonary opacities continue antibiotics, but he is improving on Diuretics. will follow specialist recommendations. Transferred to Medical floor on Telemetry. Objective Vital Signs Date Time Temp Pulse Resp B/P Pulse Ox O2 Delivery O2 Flow Rate FiO2 07/02/16 07:16 95 Nasal Cannula 3.50 07/02/16 06:00 65 07/02/16 04:00 64 07/02/16 04:00 98.4 64 36 146/67 100 07/02/16 02:00 62 07/02/16 00:00 98.5 63 21 117/57 96 07/02/16 00:00 63 07/01/16 22:00 66 07/01/16 20:00 98.2 69 24 138/63 94 07/01/16 20:00 69 07/01/16 19:14 94 Nasal Cannula 3.50 07/01/16 18:00 62 07/01/16 16:00 98.0 64 26 137/63 96 07/01/16 16:00 63 07/01/16 14:01 94 Nasal Cannula 3.00 07/01/16 14:00 62 07/01/16 12:00 97.9 66 20 106/53 97 07/01/16 12:00 64 07/01/16 10:00 68 07/01/16 08:00 65 07/01/16 08:00 98.0 66 16 112/58 92 I/O 07/01/16 07/01/16 07/01/16 07/02/16 07/02/16 07/02/16 07:00 15:00 23:00 07:00 15:00 23:00 Intake Total 262 ml 600 ml 880 ml 580 ml Output Total 500 ml 700 ml 450 ml 420 ml Balance -238 ml -100 ml 430 ml 160 ml Intake Oral 200 ml 400 ml 480 ml 480 ml IV Total 62 ml 200 ml 400 ml 100 ml Output Urine Total 500 ml 700 ml 450 ml 420 ml # Voids 2 3 # Bowel Movements 2 Result Diagram: 06/30/16 1030 07/02/16 0616 Imaging Last Impressions Chest X-Ray 07/02/16 0600 Signed Impressions: Service Date/Time: Saturday, July 02, 2016 05:21 - CONCLUSION: 1. No significant change. 2. Bilateral moderate-sized pleural effusions with mild hazy opacity. Carlos Watts MD Upper Extremity Ultrasound 06/25/16 0000 Signed Impressions: Service Date/Time: Saturday, June 25, 2016 12:29 - CONCLUSION: 1. Occlusive thrombus in the left cephalic vein. 2. No deep venous thrombosis from the right arm.. Pepito Kulkarni MD Renal Ultrasound 06/25/16 0000 Signed Impressions: Service Date/Time: Saturday, June 25, 2016 22:41 - CONCLUSION: 1. Unremarkable kidneys. 2. Small volume ascites. 3. Bilateral pleural effusions. 4. Splenomegaly. Carroll Joel Jr., MD Lung Scan- Nuclear Medicine 06/25/16 0000 Signed Impressions: Service Date/Time: Saturday, June 25, 2016 08:33 - CONCLUSION: Low probability for pulmonary embolism. Moderate ventilatory defect. Alexy Padron MD FACR Head CT 06/25/16 0000 Signed Impressions: Service Date/Time: Saturday, June 25, 2016 04:22 - CONCLUSION: 1. Atrophy. 2. No acute intracranial abnormality. Carroll Joel Jr., MD Procedures Endotracheal intubation and Extubation Vasopressor use. Other Results Laboratory Tests Test 06/28/16 06/29/16 06/30/16 07/01/16 03:45 05:40 10:30 08:45 Keratocytes OCC Neutrophils (%) (Auto) 67.1 % Lymphocytes (%) (Auto) 18.7 % Monocytes (%) (Auto) 9.3 % Eosinophils (%) (Auto) 4.6 % Basophils (%) (Auto) 0.3 % Neutrophils # (Auto) 2.1 TH/MM3 Lymphocytes # (Auto) 0.6 TH/MM3 Monocytes # (Auto) 0.3 TH/MM3 Eosinophils # (Auto) 0.1 TH/MM3 Basophils # (Auto) 0.0 TH/MM3 CBC Comment AUTO DIFF Differential Comment AUTO DIFF CONFIRMED Platelet Estimate LOW Platelet Morphology Comment NORMAL Total Bilirubin 0.8 MG/DL Aspartate Amino Transf 22 U/L (AST/SGOT) Alanine Aminotransferase 15 U/L (ALT/SGPT) Alkaline Phosphatase 109 U/L Total Protein 6.1 GM/DL Albumin 1.5 GM/DL White Blood Count 3.0 TH/MM3 Red Blood Count 2.83 MIL/MM3 Hemoglobin 8.9 GM/DL Hematocrit 26.8 % Mean Corpuscular Volume 94.5 FL Mean Corpuscular Hemoglobin 31.3 PG Mean Corpuscular Hemoglobin 33.1 % Concent Red Cell Distribution Width 18.0 % Platelet Count 68 TH/MM3 Mean Platelet Volume 7.5 FL Phosphorus Level 1.7 MG/DL Magnesium Level 1.6 MG/DL Test 07/02/16 06:16 Sodium Level 140 MEQ/L Potassium Level 3.4 MEQ/L Chloride Level 101 MEQ/L Carbon Dioxide Level 36.2 MEQ/L Anion Gap 3 MEQ/L Blood Urea Nitrogen 16 MG/DL Creatinine 1.37 MG/DL Estimat Glomerular Filtration 52 ML/MIN Rate Random Glucose 56 MG/DL Calcium Level 7.8 MG/DL Objective Remarks GENERAL: No acute distress SKIN: Warm and dry. No rash HEAD: Normocephalic. EYES: No scleral icterus. No injection or drainage. NECK: Supple, trachea midline. No JVD or lymphadenopathy. Dysphonia. CARDIOVASCULAR: Regular rate and rhythm . S1, S2 no S4. Without murmurs, gallops, or rubs. RESPIRATORY: decreased breath sounds bilateral, no wheezing or crackles. has some harsh sounds. GASTROINTESTINAL: Abdomen soft, non-tender, nondistended. MUSCULOSKELETAL: No significant peripheral edema Neuro: Cranial nerve II through XII grossly intact. Strength equal/symmetric bilaterally. Normal sensation Medications and IVs Current Medications Medications (Trade) Dose Ordered Sig/Irene Route Start Time Stop Time Status Last Admin (NS Flush) 2 ml UNSCH PRN IVF 06/25/16 03:30 06/30/16 08:11 (NS Flush) 2 ml UNSCH PRN IVF 06/25/16 03:30 (Brethine Inj) 1 mg UNSCH PRN SQ 06/25/16 06:15 Miscellaneous Information 1 Q361D XX 06/25/16 10:45 06/25/16 10:45 (Chlorhexidine 2% Cloth) Taper DAILY@04 TOP 06/26/16 04:00 06/22/17 03:59 06/30/16 03:41 (Chlorhexidine 2% Cloth) 3 pack UNSCH PRN TOP 06/25/16 10:45 (D50w (Vial) Inj) 25 ml UNSCH PRN IV PUSH 06/25/16 10:45 (Glucagon Inj) 1 mg UNSCH PRN OTHER 06/25/16 10:45 (Aspirin Chew) 81 mg DAILY CHEW 06/25/16 14:00 07/01/16 09:32 (Vitamin B1) 100 mg DAILY PO 06/25/16 15:00 07/01/16 09:32 (Symbicort 80-4.5 Mcg Inh) 2 puff Q12HR INH 06/26/16 23:00 07/01/16 19:39 (Tums Chew) 500 mg BID CHEW 06/27/16 09:00 07/01/16 19:39 (Lactinex) 1 tab TIDAC PO 06/27/16 12:00 07/01/16 17:11 (Lactulose Liq) 30 ml BID PO 06/27/16 09:00 07/01/16 19:43 (Mycostatin Powder) 1 applic Q12HR TOPICAL 06/27/16 09:00 07/01/16 19:39 (Cordarone) 200 mg DAILY PO 06/28/16 09:00 07/01/16 09:32 (Protonix Inj) 40 mg BID IV PUSH 06/27/16 21:00 07/01/16 19:39 (Folate) 1 mg DAILY PO 06/28/16 09:00 07/01/16 09:32 (Theragran) 1 tab DAILY PO 06/28/16 09:00 07/01/16 09:32 (Roxicodone) 5 mg Q6H PRN PO 06/27/16 09:30 (Drisdol) 50,000 units Q7D PO 06/27/16 20:00 5/10/17 20:07 (Bumetanide) 1 mg BID@09,18 PO 06/28/16 09:00 07/01/16 17:11 Carvedilol 3.125 mg 3.125 mg Q12HR PO 06/28/16 09:00 07/01/16 19:39 (Zosyn 3.375 Gm Premix) 50 ml @ 100 mls/hr Q6H IV 06/29/16 15:00 07/02/16 01:48 (Mag-Ox) 400 mg Q12HR PO 06/30/16 21:00 07/01/16 19:39 (NovoLIN R INJ) 5 units TIDAC SQ 07/01/16 08:00 07/01/16 17:00 (Levemir Inj) 12 units BID SQ 07/01/16 21:00 07/01/16 19:41 A/P Assessment and Plan 1. EtOH/History of hepatic Encephalopathy, to continue lactulose 30 ml BID, Oxycodone for pain management, Thiamine 2. CHF chronic Systolic/pericardial Effusion/Atrial Fibrillation Echocardiogram 06/25 EF 35-40%, No regional wall motion abnormality, non candidate for left heart catheterization, Coreg 3.125 mg BID, aspirin 81 mg daily, Amiodarone 400 mg BID, decreased to 200 mg daily, no signs of tamponade Improving clinically. new CXR opacities and moderate pleural effusions, may need Thoracentesis, will follow it communications specialist recommendations. 3. Acute Hypoxemic respiratory failure/CHF exacerbation and Infectious etiology , Bronchial Asthma, Bilateral Pleural effusions Bronchodilator, Mucolytic and incentive spirometry. V/Q scan low probability for Pulmonary embolism 4. 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 Protonix 40 mg BID, Lactulose 30 ml BID, Ammonia level 40. 5. BPH by history no signs or Urinary retention 6. DM II, elevated parathyroid hormone/Low Vitamin D 25. Uncontrolled, on Levemir, sliding scale, scheduled regular insulin with meals. Hypoglycemia in am but now Hyperglycemia adjusted Insulin. 7. Acute Renal Injury. Nephrology specialist Following, Bumex 1 mg BID, Renal US no Hydronephrosis Improving slowly. 8. Left Cephalic vein thrombosis/Thrombocytopenia 9. recently treated Left knee osteomyelitis Vancomycin and Diflucan, CAP on Zosyn day #7 blood cultures No Growth. Not improving in imaging studies, improving clinically will get CT chest without contrast and follow nail specialist recommendations. PT evaluate and treat Prophylaxis - GI - Protonix - DVT - SCD/pharmacological prophylaxis held due to GI bleed Discharge Planning Expected by tomorrow to [facility] Murphy Cedeno MD July 02, 2016 08:02
[2016-07-02] MEDS: NYSTATIN 100,000 U/GM PWD 15 GM BTL TOPICAL SCH ×2 (08:59→21:35)
[2016-07-02] MEDS: BUDESONIDE-FORMOTEROL 80/4.5 MCG INHALER INH SCH ×2 (08:59→21:36)
[2016-07-02] MEDS: INSULIN DETEMIR 100 UNITS/ML VIAL SQ SCH ×2 (09:00→21:32)
[2016-07-02] MEDS: BUMETANIDE 1 MG TAB PO SCH ×2 (09:00→17:27)
[2016-07-02] MEDS: THIAMINE HCL 100 MG TAB PO SCH (09:00)
[2016-07-02] MEDS: CARVEDILOL 3.125 MG TAB PO SCH ×2 (09:00→21:00)
[2016-07-02] MEDS: PANTOPRAZOLE SODIUM 40 MG VIAL IV PUSH SCH ×2 (09:00→21:30)
[2016-07-02] MEDS: MAGNESIUM OXIDE 400 MG TAB PO SCH ×2 (09:00→21:31)
[2016-07-02] MEDS: AMIODARONE 200 MG TAB PO SCH (09:00)
[2016-07-02] MEDS: LACTULOSE SYRUP 20 GM/30 ML CUP PO SCH ×2 (09:00→21:00)
[2016-07-02] MEDS: CALCIUM CARBONATE 500 MG CHEWABLE TAB CHEW SCH ×2 (09:00→21:31)
[2016-07-02] MEDS: ASPIRIN 81 MG CHEW TAB CHEW SCH (09:01)
[2016-07-02] MEDS: MULTIVITAMIN TAB PO SCH (09:01)
[2016-07-02] MEDS: FOLIC ACID 1 MG TAB PO SCH (09:01)
[2016-07-02] MEDS: LACTOBACILLUS ACIDOPHILUS TAB PO SCH ×3 (09:06→15:36)
[2016-07-02] MEDS ORDERED: POTASSIUM CHLORIDE 20 MEQ CONTROLLED RELEASE TAB PO ONE (14:15)
--- NOTE | 2016-07-02 23:50 | RADRPT ---
EXAM DATE/TIME: 07/02/2016 23:35 [facility] COMPARISON: CHEST PA & LAT, July 02, 2016, 5:21. INDICATIONS : Patient with respiratory failure and pleural effusions.. RADIATION DOSE: 11.77 CTDIvol (mGy) MEDICAL HISTORY : Diabetes mellitus type 2. Renal failure. SURGICAL HISTORY : None. ENCOUNTER: Initial ACUITY: 1 week PAIN SCALE: 0/10 LOCATION: chest TECHNIQUE: Volumetric scanning of the chest was performed. Using automated exposure control and adjustment of t he mA and/or kV according to patient size, radiation dose was kept as low as reasonably achievable to obtain optimal diagnostic quality images. FINDINGS: LUNGS: There is dense consolidation in both lower lobes with air bronchograms. There is rounded masslike are a in the right upper lobe measuring up to 4.4 x 3.5 x 3.8 cm in diameter. There is adjacent bronchiec tasis in the right upper lobe. PLEURAE: There are moderate-sized bilateral pleural effusions which extend up to the lung apex. MEDIASTINUM: There is moderate cardiomegaly with small amount of pericardial fluid. Coronary artery calcifications are present. There is no visualized adenopathy.. There is no mediastinal or hilar lymphadenopathy. AXILLAE: Within normal limits. No lymphadenopathy. MUSCULOSKELETAL: Within normal limits for patient age. MISCELLANEOUS: The visualized upper abdominal organs demonstrate no acute abnormality. The liver is cirrhotic in italo earance with lobular contours. There are surgical clips in the right side of the abdomen. There is mi ld splenomegaly with multiple adjacent varices. CONCLUSION: 1. Moderate sized bilateral pleural effusions with dense consolidation in both posterior lower lobes. 2. Right upper lobe bronchiectasis with 4 cm mass like area in the right upper lobe. 3. Cardiomegaly with small pericardial effusion. 4. Cirrhotic liver. 5. Mild splenomegaly with multiple varices in the upper left abdomen. Carlos Watts MD on July 02, 2016 at 23:42 Board Certified Radiologist. This report was verified electronically.
[2016-07-03] VITALS (15 sets, daily range): BP systolic 94–139; BP diastolic 50–76; PULSE 58–106; RESP 19–40; TEMP 97.9–99.1; O2SAT 92–100
[2016-07-03] MEDS: PIPERACIL-TAZO 3.375 GM PREMIX 50 ML IV SCH ×4 (02:39→21:47)
[2016-07-03] MEDS: CHLORHEXIDINE GLUCONATE 2 % 1 PACK (2 CLOTHS) TOP SCH (03:47)
[2016-07-03] MEDS: RESP: ALBUTEROL 2.5 MG/3 ML NEB (PRN) NEB ×4 (04:33→20:41)
[2016-07-03 06:05] LABS: BICARBONATE 35.4 MEQ/L (21.0-32.0); POTASSIUM 3.8 MEQ/L (3.5-5.1)
--- NOTE | 2016-07-03 06:43 | MB ---
cc: NTAI TORO DATE OF CONSULTATION 07/02/[address] Palm REASON FOR CONSULTATION Evaluate for shortness of breath and pneumonia. HISTORY OF PRESENT ILLNESS Mr. Gonzalez is a 66-year-old male who was transferred from the retirement and was recently admitted in this hospital with GI bleed. At this time, he was brought over here with hypoxia and shortness of breath. He had a VQ scan which was normal. The patient has respiratory failure. He was hypotensive and was started on IV fluid and Levophed and was intubated. He is extubated now. He is weaned down to nasal cannula. His lab evaluation revealed WBC count 3000, hemoglobin 8.9, hematocrit 26.8, MCV 94, platelet count 68. Sodium 140, potassium 3.4, chloride 101, CO2 36, BUN 16, creatinine 1.37, INR is 1.3. His chest x-ray shows bilateral pleural effusion. PAST MEDICAL HISTORY Significant for a history of: 1. Congestive heart failure 2. Pleural effusion 3. Diabetes mellitus 4. Bronchial asthma 5. Recent GI bleed MEDICATIONS He is currently takin. Insulin 10 units 2. Zosyn IV 3. Amiodarone 200 mg a day 4. Folic acid 1 mg a day 5. Bumex 1 mg twice a day 6. Coreg 3.125 mg a day 7. Protonix 40 mg a day 8. Albuterol nebulizer treatment 9. Oxycodone for pain 10. Symbicort 160/4.5 two puffs twice a day ALLERGIES NO KNOWN DRUG ALLERGIES. SOCIAL HISTORY He has a history of smoking the past. FAMILY HISTORY Not available. REVIEW OF SYSTEMS Patient has mild shortness breath. Denies any chest pain and no nausea or vomiting. PHYSICAL EXAMINATION This is an elderly male not in acute distress. VITAL SIGNS: Blood pressure 155/70, heart rate 67, respirations 20, temperature 98.5, saturation 97% on four liters nasal cannula. HEENT: Examination unremarkable. NECK: Supple. JVP not raised. CHEST: He has decreased breath sounds at the bases. CARDIOVASCULAR: S1 and S2 normal. ABDOMEN: Benign. EXTREMITIES: 1+ pedal edema. IMPRESSION 1. Respiratory failure status post extubation. 2. CHF 3. Diabetes mellitus 4. Anemia 5. Renal insufficiency PLAN The patient is being diuresed. He is on supplement oxygen to keep the saturation greater than 92%. Monitor his pleural effusion. If the fluid increases then he will need thoracentesis. Continue present antibiotic and monitor his electrolytes. Further treatment will depend upon the course in the hospital. Thank you, Dr. Palm, for this consult. MD JAROD Murphy/SRI /8:55 PM /6:31 AM
[2016-07-03] MEDS: INSULIN NovoLIN REGULAR SUPPLEMENTAL SCALE SQ SCH ×4 (07:00→21:00)
[2016-07-03] MEDS: INSULIN HUMAN REGULAR 1,000 UNITS/10 ML VIAL SQ SCH ×3 (08:00→17:00)
[2016-07-03] MEDS: NYSTATIN 100,000 U/GM PWD 15 GM BTL TOPICAL SCH ×2 (08:33→21:51)
[2016-07-03] MEDS: BUDESONIDE-FORMOTEROL 80/4.5 MCG INHALER INH SCH ×2 (08:33→21:51)
[2016-07-03] MEDS: FOLIC ACID 1 MG TAB PO SCH (08:34)
[2016-07-03] MEDS: ASPIRIN 81 MG CHEW TAB CHEW SCH (08:34)
[2016-07-03] MEDS: CALCIUM CARBONATE 500 MG CHEWABLE TAB CHEW SCH ×2 (08:34→21:47)
[2016-07-03] MEDS: LACTOBACILLUS ACIDOPHILUS TAB PO SCH ×3 (08:34→17:40)
[2016-07-03] MEDS: MULTIVITAMIN TAB PO SCH (08:34)
[2016-07-03] MEDS: PANTOPRAZOLE SODIUM 40 MG VIAL IV PUSH SCH ×2 (08:34→21:47)
[2016-07-03] MEDS: CARVEDILOL 3.125 MG TAB PO SCH ×2 (08:35→21:00)
[2016-07-03] MEDS: BUMETANIDE 1 MG TAB PO SCH ×2 (08:35→17:40)
[2016-07-03] MEDS: MAGNESIUM OXIDE 400 MG TAB PO SCH ×2 (08:35→21:47)
[2016-07-03] MEDS: LACTULOSE SYRUP 20 GM/30 ML CUP PO SCH ×2 (08:35→21:00)
[2016-07-03] MEDS: AMIODARONE 200 MG TAB PO SCH (08:35)
[2016-07-03] MEDS: THIAMINE HCL 100 MG TAB PO SCH (09:00)
--- NOTE | 2016-07-03 13:52 | HHI.PR ---
Subjective Remarks Critical Care Notes: The patient is a 66-year-old male with a past medical history of diabetes mellitus, bronchial asthma, ETOH use, cirrhosis, who presented to [facility] ED from a nursing facility for shortness of breath. The patient was recently hospitalized in the end of April, for GI bleed secondary to large duodenal ulcer. 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 He required multiple blood transfusions, intubation and mechanical ventilation. In addition , the patient had two endoscopies. On arrival to the ED the patient was hypotensive with blood pressure 94/50 and his laboratory data showed mild acute kidney injury with a BUN of 21, creatinine 1.86, lactic acidosis with lactic acid level 3.6 and elevated BNP at 427. In addition, he was found to have elevated D-dimer at 12.28. CT scan of the brain was obtained which showed no atrophy, otherwise no acute intracranial abnormalities. A VQ scan was obtained as well in the ER which showed low probability for pulmonary embolism. His initial chest x-ray from early this morning showed bilateral pleural effusions and patchy bilateral pulmonary infiltrates. Central line was placed by ED physician and a repeat chest x-ray showed right IJ central line in good position , bilateral effusions with bilateral parenchymal densities, right greater than the left. In the ER he was given 2 liters of crystalloids in addition to vancomycin, Zosyn, Solu-Medrol, bronchodilator and Bumex. He was hypotensive in the ER and the patient was placed on Levophed which is currently at three mics. Due to his respiratory distress, the patient was intubated and placed on full mechanical ventilation. When seen he is on Diprivan infusion for sedation. However, the patient is awake, alert and follows commands. ABG post intubation showed a pH of 7.35, CO2 48, pAO2 325, bicarb 26, saturation of 98%. 06/26: Patient is sedated with Diprivan. Afebrile. Off Levophed. 06/27: Extubated 06/26. Of all vasopressors. Currently on nasal cannula. Tolerating diet. 06/28: Currently complaining of chest discomfort/pleuritic with breathing and shortness of breath. On 4 L nasal cannula. Complaining of difficulty with swallowing. No bowel movement. Up in chair 4 hours yesterday. Hospitalist Notes: 06/30: The patient is been given to me today by Hospitalist Coordinator. seen in his bedroom and discussed with nurse Miss Etienne No nausea, vomit or diarrhea. 07/01: Patient stable discussed with nurse Miss Etienne, no nausea, vomit or diarrhea, improving clinically, no complaint, mild uncontrolled blood sugar, increased Levemir, will get new CXR in am tomorrow, if improving may be discharged home, also his electrolytes were replaced and continue following. has Dysphonia after endotracheal intubation and extubation, may need ENT evaluation. 07/02: Seen in his bedroom in the presence of his Brother Mr. Randy Onofre the patient states he developed dysphonia after Endotracheal intubation he is improving may need ENT evaluation in house or as outpatient, asked for ENT evaluation, also will get CT chest he continue with pulmonary opacities continue antibiotics, but he is improving on Diuretics. will follow specialist recommendations. Transferred to Medical floor on Telemetry. 07/03: Discussed in the room with patient he is improving condition, in am had shortness of breath he has Pleural effusions was recommended for Thoracentesis. of the right side, eating in his bedroom, no nausea, vomit or diarrhea. Objective Vital Signs Date Time Temp Pulse Resp B/P Pulse Ox O2 Delivery O2 Flow Rate FiO2 07/03/16 12:00 60 07/03/16 12:00 98.3 60 40 112/51 97 07/03/16 10:00 60 07/03/16 09:06 93 Nasal Cannula 3.50 07/03/16 08:00 98.1 59 19 94/50 99 07/03/16 08:00 59 07/03/16 06:00 60 07/03/16 04:00 61 07/03/16 04:00 98.2 61 34 124/58 93 07/03/16 02:00 58 07/03/16 00:00 97.9 59 24 107/59 95 07/03/16 00:00 59 07/02/16 22:00 66 07/02/16 20:00 65 07/02/16 20:00 97 Nasal Cannula 4.00 07/02/16 20:00 98.0 65 19 112/57 97 07/02/16 18:00 75 07/02/16 16:00 98.5 67 25 155/70 95 07/02/16 16:00 67 07/02/16 14:00 75 I/O 07/02/16 07/02/16 07/02/16 07/03/16 07/03/16 07/03/16 07:00 15:00 23:00 07:00 15:00 23:00 Intake Total 580 ml 331 ml 310 ml 210 ml Output Total 420 ml 425 ml 450 ml 200 ml Balance 160 ml -94 ml -140 ml 10 ml Intake Oral 480 ml 220 ml 240 ml 150 ml IV Total 100 ml 111 ml 70 ml 60 ml Output Urine Total 420 ml 425 ml 450 ml 200 ml # Bowel Movements 1 Result Diagram: 06/30/16 1030 07/03/16 0320 Imaging Last Impressions Chest X-Ray 07/02/16 0600 Signed Impressions: Service Date/Time: Saturday, July 02, 2016 05:21 - CONCLUSION: 1. No significant change. 2. Bilateral moderate-sized pleural effusions with mild hazy opacity. Carlos Watts MD Chest CT 07/02/16 0000 Signed Impressions: Service Date/Time: Saturday, July 02, 2016 23:35 - CONCLUSION: 1. Moderate sized bilateral pleural effusions with dense consolidation in both posterior lower lobes. 2. Right upper lobe bronchiectasis with 4 cm mass like area in the right upper lobe. 3. Cardiomegaly with small pericardial effusion. 4. Cirrhotic liver. 5. Mild splenomegaly with multiple varices in the upper left abdomen. Carlos Watts MD Upper Extremity Ultrasound 06/25/16 0000 Signed Impressions: Service Date/Time: Saturday, June 25, 2016 12:29 - CONCLUSION: 1. Occlusive thrombus in the left cephalic vein. 2. No deep venous thrombosis from the right arm.. Pepito Kulkarni MD Renal Ultrasound 06/25/16 0000 Signed Impressions: Service Date/Time: Saturday, June 25, 2016 22:41 - CONCLUSION: 1. Unremarkable kidneys. 2. Small volume ascites. 3. Bilateral pleural effusions. 4. Splenomegaly. Carroll Joel Jr., MD Lung Scan-V Nuclear Medicine 06/25/16 0000 Signed Impressions: Service Date/Time: Saturday, June 25, 2016 08:33 - CONCLUSION: Low probability for pulmonary embolism. Moderate ventilatory defect. Alexy Padron MD FACR Head CT 06/25/16 0000 Signed Impressions: Service Date/Time: Saturday, June 25, 2016 04:22 - CONCLUSION: 1. Atrophy. 2. No acute intracranial abnormality. Carroll Joel Jr., MD Procedures Endotracheal intubation and Extubation Vasopressor use. Other Results Laboratory Tests Test 06/29/16 06/30/16 07/01/16 07/03/16 05:40 10:30 08:45 03:20 Neutrophils (%) (Auto) 67.1 % Lymphocytes (%) (Auto) 18.7 % Monocytes (%) (Auto) 9.3 % Eosinophils (%) (Auto) 4.6 % Basophils (%) (Auto) 0.3 % Neutrophils # (Auto) 2.1 TH/MM3 Lymphocytes # (Auto) 0.6 TH/MM3 Monocytes # (Auto) 0.3 TH/MM3 Eosinophils # (Auto) 0.1 TH/MM3 Basophils # (Auto) 0.0 TH/MM3 CBC Comment AUTO DIFF Differential Comment AUTO DIFF CONFIRMED Platelet Estimate LOW Platelet Morphology Comment NORMAL Total Bilirubin 0.8 MG/DL Aspartate Amino Transf 22 U/L (AST/SGOT) Alanine Aminotransferase 15 U/L (ALT/SGPT) Alkaline Phosphatase 109 U/L Total Protein 6.1 GM/DL Albumin 1.5 GM/DL White Blood Count 3.0 TH/MM3 Red Blood Count 2.83 MIL/MM3 Hemoglobin 8.9 GM/DL Hematocrit 26.8 % Mean Corpuscular Volume 94.5 FL Mean Corpuscular Hemoglobin 31.3 PG Mean Corpuscular Hemoglobin 33.1 % Concent Red Cell Distribution Width 18.0 % Platelet Count 68 TH/MM3 Mean Platelet Volume 7.5 FL Phosphorus Level 1.7 MG/DL Magnesium Level 1.6 MG/DL Sodium Level 140 MEQ/L Potassium Level 3.8 MEQ/L Chloride Level 99 MEQ/L Carbon Dioxide Level 35.4 MEQ/L Anion Gap 6 MEQ/L Blood Urea Nitrogen 16 MG/DL Creatinine 1.42 MG/DL Estimat Glomerular Filtration 50 ML/MIN Rate Random Glucose 87 MG/DL Calcium Level 7.7 MG/DL Objective Remarks GENERAL: No acute distress SKIN: Warm and dry. No rash HEAD: Normocephalic. EYES: No scleral icterus. No injection or drainage. NECK: Supple, trachea midline. No JVD or lymphadenopathy. Dysphonia. CARDIOVASCULAR: Regular rate and rhythm . S1, S2 no S4. Without murmurs, gallops, or rubs. RESPIRATORY: decreased breath sounds bilateral, no wheezing or crackles. has some harsh sounds. GASTROINTESTINAL: Abdomen soft, non-tender, nondistended. MUSCULOSKELETAL: No significant peripheral edema Neuro: Cranial nerve II through XII grossly intact. Strength equal/symmetric bilaterally. Normal sensation Medications and IVs Current Medications Medications (Trade) Dose Ordered Sig/Irene Route Start Time Stop Time Status Last Admin (NS Flush) 2 ml UNSCH PRN IVF 06/25/16 03:30 06/30/16 08:11 (NS Flush) 2 ml UNSCH PRN IVF 06/25/16 03:30 (Brethine Inj) 1 mg UNSCH PRN SQ 06/25/16 06:15 Miscellaneous Information 1 Q361D XX 06/25/16 10:45 06/25/16 10:45 (Chlorhexidine 2% Cloth) Taper DAILY@04 TOP 06/26/16 04:00 06/22/17 03:59 07/03/16 03:47 (Chlorhexidine 2% Cloth) 3 pack UNSCH PRN TOP 06/25/16 10:45 (D50w (Vial) Inj) 25 ml UNSCH PRN IV PUSH 06/25/16 10:45 (Glucagon Inj) 1 mg UNSCH PRN OTHER 06/25/16 10:45 (Aspirin Chew) 81 mg DAILY CHEW 06/25/16 14:00 07/03/16 08:34 (Vitamin B1) 100 mg DAILY PO 06/25/16 15:00 07/03/16 09:00 (Symbicort 80-4.5 Mcg Inh) 2 puff Q12HR INH 06/26/16 23:00 07/03/16 08:33 (Tums Chew) 500 mg BID CHEW 06/27/16 09:00 07/03/16 08:34 (Lactinex) 1 tab TIDAC PO 06/27/16 12:00 07/03/16 11:16 (Lactulose Liq) 30 ml BID PO 06/27/16 09:00 07/01/16 19:43 (Mycostatin Powder) 1 applic Q12HR TOPICAL 06/27/16 09:00 07/03/16 08:33 (Cordarone) 200 mg DAILY PO 06/28/16 09:00 07/03/16 08:35 (Protonix Inj) 40 mg BID IV PUSH 06/27/16 21:00 07/03/16 08:34 (Folate) 1 mg DAILY PO 06/28/16 09:00 07/03/16 08:34 (Theragran) 1 tab DAILY PO 06/28/16 09:00 07/03/16 08:34 (Roxicodone) 5 mg Q6H PRN PO 06/27/16 09:30 (Drisdol) 50,000 units Q7D PO 06/27/16 20:00 06/27/16 20:07 (Bumetanide) 1 mg BID@09,18 PO 06/28/16 09:00 07/03/16 08:35 Carvedilol 3.125 mg 3.125 mg Q12HR PO 06/28/16 09:00 07/03/16 08:35 (Zosyn 3.375 Gm Premix) 50 ml @ 100 mls/hr Q6H IV 06/29/16 15:00 07/03/16 09:27 (Mag-Ox) 400 mg Q12HR PO 06/30/16 21:00 07/03/16 08:35 (NovoLIN R INJ) 5 units TIDAC SQ 07/01/16 08:00 07/03/16 12:44 (Levemir Inj) 10 units HS SQ 07/02/16 21:00 07/02/16 21:32 A/P Assessment and Plan 1. EtOH/History of hepatic Encephalopathy, to continue lactulose 30 ml BID, Oxycodone for pain management, Thiamine 2. CHF chronic Systolic/pericardial Effusion/Atrial Fibrillation Echocardiogram 06/25 EF 35-40%, No regional wall motion abnormality, non candidate for left heart catheterization, Coreg 3.125 mg BID, aspirin 81 mg daily, Amiodarone 400 mg BID, decreased to 200 mg daily, no signs of tamponade Improving clinically. new CXR opacities and moderate pleural effusions, training and documentation specialist following, today I was called from Intensive Care Unit he has worsening SOB and was recommended for Thoracentesis of the Right side. 3. Acute Hypoxemic respiratory failure/CHF exacerbation and Infectious etiology , Bronchial Asthma, Bilateral Pleural effusions Bronchodilator, Mucolytic and incentive spirometry. V/Q scan low probability for Pulmonary embolism for Thoracentesis today. 4. 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 Protonix 40 mg BID, Lactulose 30 ml BID, Ammonia level 40. 5. BPH by history no signs or Urinary retention 6. DM II, elevated parathyroid hormone/Low Vitamin D 25. Uncontrolled, on Levemir, sliding scale, scheduled regular insulin with meals. stable continue present care, he is eating better may need further insulin adjustment but his blood sugar in am today was 70 7. Acute Renal Injury. Nephrology specialist Following, Bumex 1 mg BID, Renal US no Hydronephrosis Improving slowly. 8. Left Cephalic vein thrombosis/Thrombocytopenia Stable. 9. recently treated Left knee osteomyelitis Vancomycin and Diflucan, CAP on Zosyn day #7 blood cultures No Growth. Not improving in imaging studies, improving clinically will get CT chest without contrast and follow legal specialist recommendations. continue present antibiotics by training and documentation specialist. PT evaluate and treat Prophylaxis - GI - Protonix - DVT - SCD/pharmacological prophylaxis held due to GI bleed Discharge Planning Not yet cleared for discharge Murphy Cedeno MD July 03, 2016 13:52
--- NOTE | 2016-07-03 15:30 | RADRPT ---
EXAM DATE/TIME: 07/03/2016 14:49 [facility] COMPARISON: No previous studies available for comparison. INDICATIONS : Right pleural effusion. MEDICAL HISTORY : Anticoagulant therapy. Asthma. Heartburn. Renal failure. Arthritis. Diabetes. ETOH use. Cirrhosis. GI Bleed. Duodenal ulcer. CHF. Respiratory failure. Celiac artery embolization. DVT. SURGICAL HISTORY : Eye prosthesis. Right hand 1st and 2nd digit amputated. Right knee surgery. Arteriogram. Intubation. EGD. ENCOUNTER: Initial ACUITY: 1 day PAIN SCORE: 3/10 LOCATION: Right chest FLUID: Total volume of 1450 cc of clear, yellow fluid was removed. Fluid was sent to lab for ordered studies. Post procedure scanning reveals no hematoma or other complication. TECHNIQUE: 1. Ultrasound guidance for thoracentesis. 2. Thoracentesis. The risks, benefits, and alternatives to ultrasound guided thoracentesis were explained to the patien t in lay simple terms, including the risk of bleeding and infection. Written and verbal informed con sent was obtained. Appropriate area for thoracentesis was marked under ultrasound guidance with the patient in the uprig ht position. Overlying skin was prepped and draped in the usual sterile fashion and with local anest hetic, a dermatotomy was made with an 11 blade scalpel. A 6 [place] thoracentesis catheter was placed in the pleural space and fluid was removed. Catheter was then removed and a sterile dressing applie d. There were no immediate complications. The patient tolerated the procedure well and the left the ultrasound suite in stable condition. Chest radiograph is to be obtained. CONCLUSION: Uncomplicated ultrasound guided thoracentesis. Pepito Kulkarni MD on July 03, 2016 at 15:26 Board Certified Radiologist. This report was verified electronically.
--- NOTE | 2016-07-03 15:39 | RADRPT ---
EXAM DATE/TIME: 07/03/2016 15:23 [facility] COMPARISON: CHEST PA & LAT, July 02, 2016, 5:21. INDICATIONS : Post right sided thoracentesis. MEDICAL HISTORY : Diabetes mellitus type 2. Renal failure. SURGICAL HISTORY : None. ENCOUNTER: Subsequent ACUITY: 1 week PAIN SCORE: 0/10 LOCATION: Bilateral chest FINDINGS: A single frontal expiratory view of the chest was performed. Left basilar density and small effusion. No pneumothorax on the right. Right lung is clear. The cardio-mediastinal contours and bronchopulmonary markings are unremarkable for an expiratory exam . Osseous structures are intact. CONCLUSION: No pneumothorax on the right. Pepito Kulkarni MD on July 03, 2016 at 15:36 Board Certified Radiologist. This report was verified electronically.
--- NOTE | 2016-07-03 16:23 | MB ---
cc: EDGAR JAFFE M.D., GUILLERMO MD DATE OF CONSULTATION 07/03/[address] Néstor Gonzalez REASON FOR ENT CONSULTATION Hoarseness. HISTORY OF PRESENT ILLNESS Kal Gonzalez is a healthy-appearing 66-year-old man who was admitted to the hospital on June 25 from a [facility] facility where he had experienced severe shortness of breath. He was diagnosed with hypoxic respiratory failure and was intubated at the time of admission, remained intubated for over 2 days and since that time has been successfully maintained on 4 liters nasal cannula. He complains of some shortness of breath still, was also having very marked hoarseness. His voice is weak. He states it was much better prior to intubation. He has had no hemoptysis. He is a former smoker, quit many years ago. He denies dysphagia or aspiration with swallowing. He is having no stridor. MEDICAL HISTORY Significant for insulin-dependent diabetes, congestive heart failure, reactive airway disease, cirrhosis, recent GI bleeding requiring embolization. PHYSICAL EXAMINATION GENERAL: On examination he is alert and cooperative sitting up in bed. He responds appropriately to questions and commands. His voice is very weak. HEAD: Normocephalic, atraumatic. Face skin is cool and pale. There is no evidence of lesions. Oral cavity mucous membranes are pale but pink and moist. No mucosal lesions noted. NECK: No nodes or masses. Larynx and trachea midline. PROCEDURE IN DETAIL Flexible fiberoptic laryngoscopy shows patent nasal airway, normal nasopharynx, hypopharynx and larynx appear to be in very good condition. There is moderate degree of atrophic changes of the vocal cords but there is no evidence of mucosal lesions, in particular no neoplastic changes. No granulomas, nodules or polyps. No sign of infection. There is mild inflammation in the posterior glottis. No sign of edema of the esophageal inlet. Vocal cord mobility is normal and opens widely and symmetrically with inspiration and closes with phonation. ASSESSMENT Hoarseness. PLAN I have discussed these findings with the patient and with his nurse, advised him he appears to be mildly inflamed. I suspect a good deal of his weak voice is due to his lack of wind power to drive his larynx. There is no significant pathology involving the glottis or vocal cords which could be treated to improve his voice. I expect he will recover as the inflammation resolves and as his respiratory power improves. MD MICHAEL Sorensen/DOROTEO /1:31 PM /4:08 PM
[2016-07-03 18:49] LABS: PLEURAL FLUID LYMPHS 61 %
--- NOTE | 2016-07-03 20:33 | HHI.PR ---
Subjective Remarks 66 YOWM with CHF,RF, s/p extubation Has hoarseness of voice. has Pl effusion had Right TC,1500 cc fluid removed Has cough and congestion Objective Vital Signs Vital Signs Date Time Temp Pulse Resp B/P Pulse Ox O2 Delivery O2 Flow Rate FiO2 07/03/16 20:00 92 Nasal Cannula 3.00 07/03/16 18:00 67 07/03/16 16:00 98.0 75 33 139/65 96 07/03/16 16:00 75 07/03/16 15:00 66 36 119/61 96 07/03/16 14:52 62 20 122/60 100 07/03/16 14:00 62 07/03/16 12:00 60 07/03/16 12:00 98.3 60 40 112/51 97 07/03/16 10:00 60 07/03/16 09:06 93 Nasal Cannula 3.50 07/03/16 08:00 98.1 59 19 94/50 99 07/03/16 08:00 59 07/03/16 06:00 60 07/03/16 04:00 61 07/03/16 04:00 98.2 61 34 124/58 93 07/03/16 02:00 58 07/03/16 00:00 97.9 59 24 107/59 95 07/03/16 00:00 59 07/02/16 22:00 66 I/O 07/02/16 07/02/16 07/02/16 07/03/16 07/03/16 07/03/16 07:00 15:00 23:00 07:00 15:00 23:00 Intake Total 580 ml 331 ml 310 ml 210 ml 474 ml Output Total 420 ml 425 ml 450 ml 200 ml 200 ml Balance 160 ml -94 ml -140 ml 10 ml 274 ml Intake Oral 480 ml 220 ml 240 ml 150 ml 375 ml IV Total 100 ml 111 ml 70 ml 60 ml 99 ml Output Urine Total 420 ml 425 ml 450 ml 200 ml 200 ml # Bowel Movements 1 0 Result Diagram: 06/30/16 1030 07/03/16 0320 Objective Remarks GENERAL: MBMN WM, mild sob SKIN: Warm and dry. HEAD: Normocephalic. EYES: No scleral icterus. No injection or drainage. NECK: Supple, trachea midline. No JVD or lymphadenopathy. CARDIOVASCULAR: Regular rate and rhythm without murmurs, gallops, or rubs. RESPIRATORY: Breath sounds equal bilaterally. No accessory muscle use. Scattered rales GASTROINTESTINAL: Abdomen soft, non-tender, nondistended. MUSCULOSKELETAL: No cyanosis, or edema. BACK: Nontender without obvious deformity. No CVA tenderness. A/P Assessment and Plan RF, s/p Extubation Pl effusion, s/p right TC DM CHF Anemia Renal insuff PLAN: Cont Abx Aerosol nebs Diurease with Bumex Check pl fluid results Symbicort 2 puffs bid Ashish Thorpe MD July 03, 2016 20:33
[2016-07-03] MEDS: INSULIN DETEMIR 100 UNITS/ML VIAL SQ SCH (21:48)
[2016-07-03] MEDS: SODIUM CHLORIDE 0.9% FLUSH 10 ML FLUSH IVF PRN (21:53)
[2016-07-04] VITALS (23 sets, daily range): BP systolic 88–142; BP diastolic 51–67; PULSE 62–76; RESP 21–43; TEMP 98.5–99.9; O2SAT 92–98
[2016-07-04] MEDS: PIPERACIL-TAZO 3.375 GM PREMIX 50 ML IV SCH ×4 (03:06→20:34)
[2016-07-04] MEDS: CHLORHEXIDINE GLUCONATE 2 % 1 PACK (2 CLOTHS) TOP SCH (04:00)
[2016-07-04] MEDS: RESP: ALBUTEROL 2.5 MG/3 ML NEB (PRN) NEB ×4 (04:34→23:15)
[2016-07-04 05:06] LABS: AUTOMATED NEUTROPHIL # 3.5 TH/MM3 (1.8-7.7); BASOPHIL % 0.7 % (0.0-2.0); EOSINOPHIL # 0.2 TH/MM3 (0-0.4); EOSINOPHIL % 3.4 % (0.0-4.0); HEMATOCRIT 25.6 % (39.0-51.0); LYMPHOCYTE # 0.7 TH/MM3 (1.0-4.8); MEAN CELL VOLUME 99.2 FL (80.0-100.0); MEAN CORPUSCULAR HEMOGLOBIN 33.4 PG (27.0-34.0); MEAN CORPUSCULAR HGB CONC 33.7 % (32.0-36.0); MONO % 10.4 % (0.0-8.0); NEUT % 71.5 % (16.0-70.0); PLATELET COUNT 79 TH/MM3 (150-450); RED BLOOD COUNT 2.59 MIL/MM3 (4.50-5.90); RED CELL DISTRIBUTION WIDTH 17.7 % (11.6-17.2); WHITE BLOOD COUNT 4.8 TH/MM3 (4.0-11.0)
[2016-07-04 05:11] LABS: BICARBONATE 37.6 MEQ/L (21.0-32.0)
[2016-07-04 05:13] LABS: HEMO FLAGS AUTO DIFF
[2016-07-04] MEDS: INSULIN NovoLIN REGULAR SUPPLEMENTAL SCALE SQ SCH ×4 (07:00→21:00)
[2016-07-04 07:02] LABS: PLATELET ESTIMATE SMEAR LOW (NORMAL); PLATELET MORPHOLOGY NORMAL (NORMAL); SCAN/DIFF AUTO DIFF CONFIRMED
[2016-07-04] MEDS: INSULIN HUMAN REGULAR 1,000 UNITS/10 ML VIAL SQ SCH ×3 (08:00→16:22)
--- NOTE | 2016-07-04 08:28 | HHI.PR ---
Subjective Remarks Critical Care Notes: The patient is a 66-year-old male with a past medical history of diabetes mellitus, bronchial asthma, ETOH use, cirrhosis, who presented to [facility] ED from a nursing facility for shortness of breath. The patient was recently hospitalized in the end of April, for GI bleed secondary to large duodenal ulcer. 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 He required multiple blood transfusions, intubation and mechanical ventilation. In addition , the patient had two endoscopies. On arrival to the ED the patient was hypotensive with blood pressure 94/50 and his laboratory data showed mild acute kidney injury with a BUN of 21, creatinine 1.86, lactic acidosis with lactic acid level 3.6 and elevated BNP at 427. In addition, he was found to have elevated D-dimer at 12.28. CT scan of the brain was obtained which showed no atrophy, otherwise no acute intracranial abnormalities. A VQ scan was obtained as well in the ER which showed low probability for pulmonary embolism. His initial chest x-ray from early this morning showed bilateral pleural effusions and patchy bilateral pulmonary infiltrates. Central line was placed by ED physician and a repeat chest x-ray showed right IJ central line in good position , bilateral effusions with bilateral parenchymal densities, right greater than the left. In the ER he was given 2 liters of crystalloids in addition to vancomycin, Zosyn, Solu-Medrol, bronchodilator and Bumex. He was hypotensive in the ER and the patient was placed on Levophed which is currently at three mics. Due to his respiratory distress, the patient was intubated and placed on full mechanical ventilation. When seen he is on Diprivan infusion for sedation. However, the patient is awake, alert and follows commands. ABG post intubation showed a pH of 7.35, CO2 48, pAO2 325, bicarb 26, saturation of 98%. 06/26: Patient is sedated with Diprivan. Afebrile. Off Levophed. 06/27: Extubated 06/26. Of all vasopressors. Currently on nasal cannula. Tolerating diet. 06/28: Currently complaining of chest discomfort/pleuritic with breathing and shortness of breath. On 4 L nasal cannula. Complaining of difficulty with swallowing. No bowel movement. Up in chair 4 hours yesterday. Hospitalist Notes: 06/30: The patient is been given to me today by Hospitalist Coordinator. seen in his bedroom and discussed with nurse Jaimie No nausea, vomit or diarrhea. 07/01: Patient stable discussed with nurse Jaimie, no nausea, vomit or diarrhea, improving clinically, no complaint, mild uncontrolled blood sugar, increased Levemir, will get new CXR in am tomorrow, if improving may be discharged home, also his electrolytes were replaced and continue following. has Dysphonia after endotracheal intubation and extubation, may need ENT evaluation. 07/02: Seen in his bedroom in the presence of his Brother Mr. Randy Onofre the patient states he developed dysphonia after Endotracheal intubation he is improving may need ENT evaluation in house or as outpatient, asked for ENT evaluation, also will get CT chest he continue with pulmonary opacities continue antibiotics, but he is improving on Diuretics. will follow specialist recommendations. Transferred to Medical floor on Telemetry. 07/03: Discussed in the room with patient he is improving condition, in am had shortness of breath he has Pleural effusions was recommended for Thoracentesis. of the right side. 07/04: Stable in his bedroom, discussed with patient and nurse Corina, no complaint by patient, had Right Thoracentesis, now computer network support specialist asking for Left thoracentesis, no nausea, vomit or diarrhea. Okay to transfer to Medical floor. Objective Vital Signs Date Time Temp Pulse Resp B/P Pulse Ox O2 Delivery O2 Flow Rate FiO2 07/04/16 07:31 97 Nasal Cannula 3.00 07/04/16 06:00 64 07/04/16 04:00 66 07/04/16 04:00 98.6 66 24 108/53 96 07/04/16 02:00 63 07/04/16 02:00 62 07/04/16 00:00 98.5 62 21 95/51 97 07/04/16 00:00 98.5 62 21 95/51 97 07/04/16 00:00 62 07/03/16 22:00 70 07/03/16 20:00 92 Nasal Cannula 3.00 07/03/16 20:00 99.1 74 39 131/76 97 07/03/16 20:00 74 07/03/16 20:00 99.1 106 39 131/76 92 07/03/16 18:00 67 07/03/16 16:00 98.0 75 33 139/65 96 07/03/16 16:00 75 07/03/16 15:00 66 36 119/61 96 07/03/16 14:52 62 20 122/60 100 07/03/16 14:00 62 07/03/16 12:00 60 07/03/16 12:00 98.3 60 40 112/51 97 07/03/16 10:00 60 07/03/16 09:06 93 Nasal Cannula 3.50 I/O 07/03/16 07/03/16 07/03/16 07/04/16 07/04/16 07/04/16 07:00 15:00 23:00 07:00 15:00 23:00 Intake Total 210 ml 474 ml 355 ml 221 ml Output Total 200 ml 200 ml 200 ml 200 ml Balance 10 ml 274 ml 155 ml 21 ml Intake Oral 150 ml 375 ml 300 ml 150 ml IV Total 60 ml 99 ml 55 ml 71 ml Output Urine Total 200 ml 200 ml 200 ml 200 ml # Bowel Movements 0 Result Diagram: 07/04/16 0329 07/04/16 0329 Imaging Last Impressions Thoracentesis Ultrasound 07/03/16 0000 Signed Impressions: Service Date/Time: Sunday, July 03, 2016 14:49 - CONCLUSION: Uncomplicated ultrasound guided thoracentesis. Pepito Kulkarni MD Chest X-Ray 07/03/16 0000 Signed Impressions: Service Date/Time: Sunday, July 03, 2016 15:23 - CONCLUSION: No pneumothorax on the right. Pepito Kulkarni MD Chest CT 07/02/16 0000 Signed Impressions: Service Date/Time: Saturday, July 02, 2016 23:35 - CONCLUSION: 1. Moderate sized bilateral pleural effusions with dense consolidation in both posterior lower lobes. 2. Right upper lobe bronchiectasis with 4 cm mass like area in the right upper lobe. 3. Cardiomegaly with small pericardial effusion. 4. Cirrhotic liver. 5. Mild splenomegaly with multiple varices in the upper left abdomen. Carlos Watts MD Upper Extremity Ultrasound 06/25/16 0000 Signed Impressions: Service Date/Time: Saturday, June 25, 2016 12:29 - CONCLUSION: 1. Occlusive thrombus in the left cephalic vein. 2. No deep venous thrombosis from the right arm.. Pepito Kulkarni MD Renal Ultrasound 06/25/16 0000 Signed Impressions: Service Date/Time: Saturday, June 25, 2016 22:41 - CONCLUSION: 1. Unremarkable kidneys. 2. Small volume ascites. 3. Bilateral pleural effusions. 4. Splenomegaly. Carroll Joel Jr., MD Lung Scan-VQ Nuclear Medicine 06/25/16 0000 Signed Impressions: Service Date/Time: Saturday, June 25, 2016 08:33 - CONCLUSION: Low probability for pulmonary embolism. Moderate ventilatory defect. Alexy Padron MD FACR Head CT 06/25/16 0000 Signed Impressions: Service Date/Time: Saturday, June 25, 2016 04:22 - CONCLUSION: 1. Atrophy. 2. No acute intracranial abnormality. Carroll Joel Jr., MD Procedures Endotracheal intubation and Extubation Vasopressor use. Other Results Laboratory Tests Test 07/01/16 07/03/16 07/04/16 08:45 15:15 03:29 Phosphorus Level 1.7 MG/DL Magnesium Level 1.6 MG/DL Pleural Fluid pH 8.0 Pleural Fluid WBC 238 /MM3 Pleural Fluid RBC 147 /MM3 Pleural Fluid Neutrophils 24 % Pleural Fluid Lymphocytes 61 % Pleural Fluid Monocytes 7 % Pleural Fluid Eosinophils 1 % Pleural Fluid Histiocytes 7 % Pleural Fluid Total Protein 2.0 GM/DL Pleural Fluid LDH 121 U/L Pleural Fluid Glucose 161 MG/DL Pleural Fluid Amylase 9 U/L White Blood Count 4.8 TH/MM3 Red Blood Count 2.59 MIL/MM3 Hemoglobin 8.6 GM/DL Hematocrit 25.6 % Mean Corpuscular Volume 99.2 FL Mean Corpuscular Hemoglobin 33.4 PG Mean Corpuscular Hemoglobin 33.7 % Concent Red Cell Distribution Width 17.7 % Platelet Count 79 TH/MM3 Mean Platelet Volume 7.9 FL Neutrophils (%) (Auto) 71.5 % Lymphocytes (%) (Auto) 14.0 % Monocytes (%) (Auto) 10.4 % Eosinophils (%) (Auto) 3.4 % Basophils (%) (Auto) 0.7 % Neutrophils # (Auto) 3.5 TH/MM3 Lymphocytes # (Auto) 0.7 TH/MM3 Monocytes # (Auto) 0.5 TH/MM3 Eosinophils # (Auto) 0.2 TH/MM3 Basophils # (Auto) 0.0 TH/MM3 CBC Comment AUTO DIFF Differential Comment AUTO DIFF CONFIRMED Platelet Estimate LOW Platelet Morphology Comment NORMAL Sodium Level 137 MEQ/L Potassium Level 4.0 MEQ/L Chloride Level 95 MEQ/L Carbon Dioxide Level 37.6 MEQ/L Anion Gap 4 MEQ/L Blood Urea Nitrogen 17 MG/DL Creatinine 1.64 MG/DL Estimat Glomerular Filtration 42 ML/MIN Rate Random Glucose 90 MG/DL Calcium Level 7.6 MG/DL Objective Remarks GENERAL: No acute distress SKIN: Warm and dry. No rash HEAD: Normocephalic. EYES: No scleral icterus. No injection or drainage. NECK: Supple, trachea midline. No JVD or lymphadenopathy. Dysphonia. CARDIOVASCULAR: Regular rate and rhythm . S1, S2 no S4. Without murmurs, gallops, or rubs. RESPIRATORY: decreased breath sounds bilateral, no wheezing or crackles. GASTROINTESTINAL: Abdomen soft, non-tender, nondistended. MUSCULOSKELETAL: No significant peripheral edema Neuro: Cranial nerve II through XII grossly intact. Strength equal/symmetric bilaterally. Normal sensation Medications and IVs Current Medications Medications (Trade) Dose Ordered Sig/Irene Route Start Time Stop Time Status Last Admin (NS Flush) 2 ml UNSCH PRN IVF 06/25/16 03:30 07/03/16 21:53 (NS Flush) 2 ml UNSCH PRN IVF 06/25/16 03:30 (Brethine Inj) 1 mg UNSCH PRN SQ 06/25/16 06:15 Miscellaneous Information 1 Q361D XX 06/25/16 10:45 06/25/16 10:45 (Chlorhexidine 2% Cloth) Taper DAILY@04 TOP 06/26/16 04:00 06/22/17 03:59 07/04/16 04:00 (Chlorhexidine 2% Cloth) 3 pack UNSCH PRN TOP 06/25/16 10:45 (D50w (Vial) Inj) 25 ml UNSCH PRN IV PUSH 06/25/16 10:45 (Glucagon Inj) 1 mg UNSCH PRN OTHER 06/25/16 10:45 (Aspirin Chew) 81 mg DAILY CHEW 06/25/16 14:00 07/03/16 08:34 (Vitamin B1) 100 mg DAILY PO 06/25/16 15:00 07/03/16 09:00 (Symbicort 80-4.5 Mcg Inh) 2 puff Q12HR INH 06/26/16 23:00 07/03/16 21:51 (Tums Chew) 500 mg BID CHEW 06/27/16 09:00 07/03/16 21:47 (Lactinex) 1 tab TIDAC PO 06/27/16 12:00 07/03/16 17:40 (Lactulose Liq) 30 ml BID PO 06/27/16 09:00 07/01/16 19:43 (Mycostatin Powder) 1 applic Q12HR TOPICAL 06/27/16 09:00 07/03/16 21:51 (Cordarone) 200 mg DAILY PO 06/28/16 09:00 07/03/16 08:35 (Protonix Inj) 40 mg BID IV PUSH 06/27/16 21:00 07/03/16 21:47 (Folate) 1 mg DAILY PO 06/28/16 09:00 07/03/16 08:34 (Theragran) 1 tab DAILY PO 06/28/16 09:00 07/03/16 08:34 (Roxicodone) 5 mg Q6H PRN PO 06/27/16 09:30 (Drisdol) 50,000 units Q7D PO 06/27/16 20:00 06/27/16 20:07 (Bumetanide) 1 mg BID@09,18 PO 06/28/16 09:00 07/03/16 17:40 Carvedilol 3.125 mg 3.125 mg Q12HR PO 06/28/16 09:00 07/03/16 21:00 (Zosyn 3.375 Gm Premix) 50 ml @ 100 mls/hr Q6H IV 06/29/16 15:00 07/04/16 03:06 (Mag-Ox) 400 mg Q12HR PO 06/30/16 21:00 07/03/16 21:47 (NovoLIN R INJ) 5 units TIDAC SQ 07/01/16 08:00 07/03/16 17:00 (Levemir Inj) 10 units HS SQ 07/02/16 21:00 07/03/16 21:48 A/P Assessment and Plan 1. EtOH/History of hepatic Encephalopathy, to continue lactulose 30 ml BID, Oxycodone for pain management, Thiamine 2. CHF chronic Systolic/pericardial Effusion/Atrial Fibrillation Echocardiogram 06/25 EF 35-40%, No regional wall motion abnormality, non candidate for left heart catheterization, Coreg 3.125 mg BID, aspirin 81 mg daily, Amiodarone 400 mg BID, decreased to 200 mg daily, no signs of tamponade Improving clinically. new CXR opacities and moderate pleural effusions, computer network support specialist following, the patient had Right thoracentesis and now will have Left thoracentesis. 3. Acute Hypoxemic respiratory failure/CHF exacerbation and Infectious etiology , Bronchial Asthma, Bilateral Pleural effusions Bronchodilator, Mucolytic and incentive spirometry. V/Q scan low probability for Pulmonary embolism. status post Right Thoracentesis 4. 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 Protonix 40 mg BID, Lactulose 30 ml BID, Ammonia level 40. 5. BPH by history no signs or Urinary retention 6. DM II, elevated parathyroid hormone/Low Vitamin D 25. Uncontrolled, on Levemir, sliding scale, scheduled regular insulin with meals. stable continue present care, he is eating better may need further insulin adjustment but his blood sugar in am today was 70 7. Acute Renal Injury. Nephrology specialist Following, Bumex 1 mg BID, Renal US no Hydronephrosis, today mild worsening decreased dosages of Bumetanide to once a day. and follow. with new BMP tomorrow. 8. Left Cephalic vein thrombosis/Thrombocytopenia Stable. 9. recently treated Left knee osteomyelitis Vancomycin and Diflucan, CAP on Zosyn day #7 blood cultures No Growth. Not improving in imaging studies, improving clinically will get CT chest without contrast and follow digital content specialist recommendations. continue present antibiotics by computer network support specialist. Transfer to Medical Floor. PT evaluate and treat Prophylaxis - GI - Protonix - DVT - SCD/pharmacological prophylaxis held due to GI bleed Discharge Planning Not yet cleared for discharge Murphy Cedeno MD July 04, 2016 08:28
[2016-07-04] MEDS: MAGNESIUM OXIDE 400 MG TAB PO SCH ×2 (08:50→20:34)
[2016-07-04] MEDS: ASPIRIN 81 MG CHEW TAB CHEW SCH (08:50)
[2016-07-04] MEDS: LACTULOSE SYRUP 20 GM/30 ML CUP PO SCH ×2 (08:50→20:34)
[2016-07-04] MEDS: PANTOPRAZOLE SODIUM 40 MG VIAL IV PUSH SCH ×2 (08:50→20:34)
[2016-07-04] MEDS: LACTOBACILLUS ACIDOPHILUS TAB PO SCH ×3 (08:50→16:22)
[2016-07-04] MEDS: FOLIC ACID 1 MG TAB PO SCH (08:50)
[2016-07-04] MEDS: CALCIUM CARBONATE 500 MG CHEWABLE TAB CHEW SCH ×2 (08:50→20:34)
[2016-07-04] MEDS: AMIODARONE 200 MG TAB PO SCH (08:50)
[2016-07-04] MEDS: MULTIVITAMIN TAB PO SCH (08:51)
[2016-07-04] MEDS: NYSTATIN 100,000 U/GM PWD 15 GM BTL TOPICAL SCH (08:51)
[2016-07-04] MEDS: BUDESONIDE-FORMOTEROL 80/4.5 MCG INHALER INH SCH (08:51)
[2016-07-04] MEDS: THIAMINE HCL 100 MG TAB PO SCH (08:52)
[2016-07-04] MEDS: CARVEDILOL 3.125 MG TAB PO SCH ×2 (08:52→20:34)
--- NOTE | 2016-07-04 17:16 | HHI.PR ---
Subjective Remarks 66 YOWM with CHF,RF, s/p extubation Has hoarseness of voice. has Pl effusion had Right TC,1500 cc fluid removed Has cough and congestion Still has mild sob Objective Vital Signs Vital Signs Date Time Temp Pulse Resp B/P Pulse Ox O2 Delivery O2 Flow Rate FiO2 07/04/16 16:00 66 07/04/16 16:00 99.9 07/04/16 14:00 66 07/04/16 14:00 66 29 98 07/04/16 14:00 66 07/04/16 14:00 66 29 98 07/04/16 13:34 68 07/04/16 13:34 68 41 118/56 95 07/04/16 13:34 68 07/04/16 13:34 68 41 118/56 95 07/04/16 13:34 68 07/04/16 13:00 65 29 104/51 97 07/04/16 13:00 65 07/04/16 13:00 65 29 104/51 97 07/04/16 13:00 65 07/04/16 13:00 65 29 104/51 97 07/04/16 13:00 65 07/04/16 12:31 67 07/04/16 12:31 67 07/04/16 12:31 67 07/04/16 12:31 67 07/04/16 12:31 67 25 122/62 07/04/16 12:31 67 25 122/62 07/04/16 12:31 67 25 122/62 07/04/16 12:01 65 07/04/16 12:01 65 07/04/16 12:01 65 31 104/67 07/04/16 12:01 65 07/04/16 12:01 65 31 104/67 07/04/16 12:01 65 07/04/16 12:01 65 31 104/67 07/04/16 12:00 76 07/04/16 12:00 76 43 07/04/16 12:00 76 07/04/16 12:00 76 43 07/04/16 12:00 76 43 07/04/16 12:00 76 07/04/16 12:00 76 07/04/16 11:30 63 07/04/16 11:30 63 07/04/16 11:30 63 07/04/16 11:30 63 36 117/58 97 5/17/17 11:30 63 36 117/58 97 5/17/17 11:30 63 36 117/58 97 5/17/17 11:30 63 5/17/17 11:00 62 31 96/54 96 517/17 11:00 62 17/17 11:00 62 17/17 11:00 62 17/17 11:00 62 31 96/54 96 517/17 11:00 62 17/17 11:00 62 31 96/54 96 517/17 10:31 63 5/17/17 10:31 63 5/17/17 10:31 63 38 88/52 94 517/17 10:31 63 38 88/52 94 517/17 10:31 63 17/17 10:31 63 17/17 10:31 63 38 88/52 94 517/17 10:01 66 517/17 10:01 66 34 109/53 94 517/17 10:01 66 17/17 10:01 66 34 109/53 94 517/17 10:01 66 17/17 10:01 66 17/17 10:01 66 34 109/53 94 5/17/17 10:00 66 17/17 10:00 66 33 95 5/17/17 10:00 66 33 95 5/17/17 10:00 66 17/17 10:00 66 33 95 5/17/17 10:00 66 517/17 10:00 66 17/17 09:30 67 17/17 09:30 67 17/17 09:30 67 17/17 09:30 67 28 90/53 517/17 09:30 67 28 90/53 517/17 09:30 67 28 90/53 517/17 09:30 67 17/17 09:05 67 17/17 09:05 67 17/17 09:05 67 31 115/57 517/17 09:05 67 31 115/57 517/17 09:05 67 31 115/57 517/17 09:05 67 17/17 09:05 67 17/17 08:31 67 5/17/17 08:31 67 07/04/16 08:31 67 26 107/55 93 07/04/16 08:31 67 07/04/16 08:31 67 07/04/16 08:31 67 26 107/55 93 07/04/16 08:31 67 26 107/55 93 07/04/16 08:00 66 07/04/16 08:00 66 27 111/55 92 07/04/16 08:00 66 07/04/16 08:00 66 27 111/55 92 07/04/16 08:00 66 07/04/16 08:00 66 27 111/55 92 07/04/16 08:00 66 07/04/16 07:31 97 Nasal Cannula 3.00 07/04/16 06:00 64 07/04/16 04:00 66 07/04/16 04:00 98.6 66 24 108/53 96 07/04/16 02:00 63 07/04/16 02:00 62 07/04/16 00:00 98.5 62 21 95/51 97 07/04/16 00:00 98.5 62 21 95/51 97 07/04/16 00:00 62 07/03/16 22:00 70 07/03/16 20:00 92 Nasal Cannula 3.00 07/03/16 20:00 99.1 74 39 131/76 97 07/03/16 20:00 74 07/03/16 20:00 99.1 106 39 131/76 92 07/03/16 18:00 67 I/O 07/03/16 07/03/16 07/03/16 07/04/16 07/04/16 07/04/16 07:00 15:00 23:00 07:00 15:00 23:00 Intake Total 210 ml 474 ml 355 ml 221 ml 862 ml Output Total 200 ml 200 ml 200 ml 200 ml 400 ml Balance 10 ml 274 ml 155 ml 21 ml 462 ml Intake Oral 150 ml 375 ml 300 ml 150 ml 620 ml IV Total 60 ml 99 ml 55 ml 71 ml 242 ml Output Urine Total 200 ml 200 ml 200 ml 200 ml 400 ml # Bowel Movements 0 1 Result Diagram: 07/04/16 0329 07/04/16 0329 Objective Remarks GENERAL: MBMN WM, mild sob SKIN: Warm and dry. HEAD: Normocephalic. EYES: No scleral icterus. No injection or drainage. NECK: Supple, trachea midline. No JVD or lymphadenopathy. CARDIOVASCULAR: Regular rate and rhythm without murmurs, gallops, or rubs. RESPIRATORY: Breath sounds equal bilaterally. No accessory muscle use. Scattered rales GASTROINTESTINAL: Abdomen soft, non-tender, nondistended. MUSCULOSKELETAL: No cyanosis, or edema. BACK: Nontender without obvious deformity. No CVA tenderness. A/P Assessment and Plan RF, s/p Extubation Pl effusion, s/p right TC DM CHF Anemia Renal insuff PLAN: Cont Abx Aerosol nebs Diurease with Bumex Check pl fluid results Symbicort 2 puffs bid US guided Left TC Ashish Thorpe MD July 04, 2016 17:16
[2016-07-04] MEDS: ERGOCALCIFEROL (VIT D2) 50,000 UNIT CAP PO SCH (20:34)
[2016-07-04] MEDS: INSULIN DETEMIR 100 UNITS/ML VIAL SQ SCH (20:39)
[2016-07-05] VITALS (15 sets, daily range): BP systolic 88–135; BP diastolic 40–73; PULSE 59–80; RESP 16–26; TEMP 97.4–100.9; O2SAT 90–96
[2016-07-05] MEDS: PIPERACIL-TAZO 3.375 GM PREMIX 50 ML IV SCH ×4 (03:00→21:35)
[2016-07-05] MEDS: CHLORHEXIDINE GLUCONATE 2 % 1 PACK (2 CLOTHS) TOP SCH (04:00)
[2016-07-05] MEDS: RESP: ALBUTEROL 2.5 MG/3 ML NEB (PRN) NEB ×4 (05:38→23:51)
[2016-07-05] MEDS: BUDESONIDE-FORMOTEROL 80/4.5 MCG INHALER INH SCH ×3 (05:46→21:34)
[2016-07-05] MEDS: NYSTATIN 100,000 U/GM PWD 15 GM BTL TOPICAL SCH ×3 (05:46→21:00)
[2016-07-05] MEDS: INSULIN NovoLIN REGULAR SUPPLEMENTAL SCALE SQ SCH ×4 (06:20→21:33)
[2016-07-05 06:33] LABS: POTASSIUM 3.9 MEQ/L (3.5-5.1)
[2016-07-05] MEDS: INSULIN HUMAN REGULAR 1,000 UNITS/10 ML VIAL SQ SCH ×3 (08:00→16:34)
[2016-07-05] MEDS: LACTOBACILLUS ACIDOPHILUS TAB PO SCH ×3 (08:00→16:33)
[2016-07-05] MEDS: ASPIRIN 81 MG CHEW TAB CHEW SCH (08:58)
[2016-07-05] MEDS: MAGNESIUM OXIDE 400 MG TAB PO SCH ×2 (08:58→21:28)
[2016-07-05] MEDS: AMIODARONE 200 MG TAB PO SCH (08:58)
[2016-07-05] MEDS: MULTIVITAMIN TAB PO SCH (08:58)
[2016-07-05] MEDS: FOLIC ACID 1 MG TAB PO SCH (08:58)
[2016-07-05] MEDS: CALCIUM CARBONATE 500 MG CHEWABLE TAB CHEW SCH ×2 (08:58→21:29)
[2016-07-05] MEDS: CARVEDILOL 3.125 MG TAB PO SCH ×2 (08:58→21:29)
[2016-07-05] MEDS: BUMETANIDE 1 MG TAB PO SCH (08:59)
[2016-07-05] MEDS: PANTOPRAZOLE SODIUM 40 MG VIAL IV PUSH SCH ×2 (08:59→21:29)
[2016-07-05] MEDS: LACTULOSE SYRUP 20 GM/30 ML CUP PO SCH ×2 (09:00→21:28)
[2016-07-05] MEDS: THIAMINE HCL 100 MG TAB PO SCH (09:00)
--- NOTE | 2016-07-05 11:41 | RADRPT ---
EXAM DATE/TIME: 07/05/2016 11:27 [facility] COMPARISON: No previous studies available for comparison. INDICATIONS : Post left thorcentesis MEDICAL HISTORY : Diabetes mellitus type 2. Renal failure. SURGICAL HISTORY : None. ENCOUNTER: Subsequent ACUITY: 1 week PAIN SCORE: 0/10 LOCATION: Bilateral chest FINDINGS: A single frontal expiratory view of the chest was performed. The lungs are symmetrically aerated and clear. No evidence of pneumothorax. Mediastinal structures are in the midline. Small bilateral ple ural effusions left greater than right although the left is smaller today than the previous study The cardio-mediastinal contours and bronchopulmonary markings are unremarkable for an expiratory exam . Osseous structures are intact. CONCLUSION: Bilateral pleural effusions left greater than right. No visible pneumothorax Kumar Rodriguez MD on July 05, 2016 at 11:39 Board Certified Radiologist. This report was verified electronically.
--- NOTE | 2016-07-05 12:39 | RADRPT ---
EXAM DATE/TIME: 07/05/2016 10:34 [facility] COMPARISON: No previous studies available for comparison. INDICATIONS : Left pleural effuison. MEDICAL HISTORY : Anticoagulant therapy. Asthma. Heartburn. Renal failure. Arthritis. Diabete. ETOH use. Cirrhosis. GI Bleed. Duodenal ulcer. CHF. Respiratory failure. Celiac artery embolization. DVT. SURGICAL HISTORY : Eye prosthesis. Right hand 1st and 2nd digit amputated. Right knee surgery.Arteriogram. Intubation. E GD. ENCOUNTER: Initial ACUITY: 4 - 6 days PAIN SCORE: 0/10 LOCATION: Left chest FLUID: Total volume of 1400 cc of clear, yellow fluid was removed. Fluid was discarded. Thoracentesis was therapeutic only. TECHNIQUE: 1. Ultrasound guidance for thoracentesis. 2. Thoracentesis. The risks, benefits, and alternatives to ultrasound guided thoracentesis were explained to the patien t in lay simple terms, including the risk of bleeding and infection. Written and verbal informed con sent was obtained. Appropriate area for thoracentesis was marked under ultrasound guidance with the patient in the uprig ht position. Overlying skin was prepped and draped in the usual sterile fashion and with local anest hetic, a dermatotomy was made with an 11 blade scalpel. A 6 [place] thoracentesis catheter was placed in the pleural space and fluid was removed. Catheter was then removed and a sterile dressing applie d. There were no immediate complications. The patient tolerated the procedure well and the left the ultrasound suite in stable condition. Chest radiograph is to be obtained. CONCLUSION: Uncomplicated ultrasound guided thoracentesis. Edgar Rice MD on July 05, 2016 at 12:37 Board Certified Radiologist. This report was verified electronically.
--- NOTE | 2016-07-05 16:47 | HHI.PR ---
Subjective Remarks Critical Care Notes: The patient is a 66-year-old male with a past medical history of diabetes mellitus, bronchial asthma, ETOH use, cirrhosis, who presented to [facility] ED from a nursing facility for shortness of breath. The patient was recently hospitalized in the end of April, for GI bleed secondary to large duodenal ulcer. 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 He required multiple blood transfusions, intubation and mechanical ventilation. In addition , the patient had two endoscopies. On arrival to the ED the patient was hypotensive with blood pressure 94/50 and his laboratory data showed mild acute kidney injury with a BUN of 21, creatinine 1.86, lactic acidosis with lactic acid level 3.6 and elevated BNP at 427. In addition, he was found to have elevated D-dimer at 12.28. CT scan of the brain was obtained which showed no atrophy, otherwise no acute intracranial abnormalities. A VQ scan was obtained as well in the ER which showed low probability for pulmonary embolism. His initial chest x-ray from early this morning showed bilateral pleural effusions and patchy bilateral pulmonary infiltrates. Central line was placed by ED physician and a repeat chest x-ray showed right IJ central line in good position , bilateral effusions with bilateral parenchymal densities, right greater than the left. In the ER he was given 2 liters of crystalloids in addition to vancomycin, Zosyn, Solu-Medrol, bronchodilator and Bumex. He was hypotensive in the ER and the patient was placed on Levophed which is currently at three mics. Due to his respiratory distress, the patient was intubated and placed on full mechanical ventilation. When seen he is on Diprivan infusion for sedation. However, the patient is awake, alert and follows commands. ABG post intubation showed a pH of 7.35, CO2 48, pAO2 325, bicarb 26, saturation of 98%. 06/26: Patient is sedated with Diprivan. Afebrile. Off Levophed. 06/27: Extubated 06/26. Of all vasopressors. Currently on nasal cannula. Tolerating diet. 06/28: Currently complaining of chest discomfort/pleuritic with breathing and shortness of breath. On 4 L nasal cannula. Complaining of difficulty with swallowing. No bowel movement. Up in chair 4 hours yesterday. Hospitalist Notes: 06/30: The patient is been given to me today by Hospitalist Coordinator. 07/01: Mild uncontrolled blood sugar, increased Levemir, will get new CXR in am tomorrow, if improving may be discharged home, also his electrolytes were replaced and continue following. has Dysphonia after endotracheal intubation and extubation, may need ENT evaluation. 07/02: Seen in his bedroom in the presence of his Brother Mr. Randy Gonzalez the patient states he developed dysphonia after Endotracheal intubation he is improving may need ENT evaluation in house or as outpatient, asked for ENT evaluation, also will get CT chest he continue with pulmonary opacities continue antibiotics, but he is improving on Diuretics. will follow specialist recommendations. Transferred to Medical floor on Telemetry. 07/03: Discussed in the room with patient he is improving condition, in am had shortness of breath he has Pleural effusions was recommended for Thoracentesis. of the right side. 07/04: Stable in his bedroom, discussed with patient and nurse Miss Arriaga, no complaint by patient, had Right Thoracentesis, for Left Thoracentesis now. 07/05: Patient seen in his bedroom and discussed with nurse Miss Arriaga, Status post Left Thoracentesis, no nausea, vomit or diarrhea. Objective Vital Signs Date Time Temp Pulse Resp B/P Pulse Ox O2 Delivery O2 Flow Rate FiO2 07/05/16 16:00 100.9 07/05/16 15:00 98.7 07/05/16 14:00 64 26 90 07/05/16 14:00 64 26 90 07/05/16 14:00 64 07/05/16 12:50 94 Nasal Cannula 3.00 07/05/16 12:32 59 25 92/51 07/05/16 12:32 59 07/05/16 12:32 59 07/05/16 12:32 59 25 92/51 07/05/16 12:32 59 25 92/51 07/05/16 12:32 59 25 92/51 07/05/16 12:32 59 25 92/51 07/05/16 12:00 62 16 96/52 93 07/05/16 11:45 62 16 88/50 93 07/05/16 11:30 97.4 62 16 90/40 93 07/05/16 10:36 97.5 80 20 97/45 95 07/05/16 09:00 64 19 108/55 96 07/05/16 09:00 64 19 108/55 96 07/05/16 09:00 64 19 108/55 96 07/05/16 09:00 64 07/05/16 09:00 64 19 108/55 96 07/05/16 09:00 64 19 108/55 96 07/05/16 09:00 64 07/05/16 09:00 64 19 108/55 96 07/05/16 09:00 64 07/05/16 08:00 64 19 135/63 91 07/05/16 08:00 64 19 135/63 91 07/05/16 08:00 64 19 135/63 91 07/05/16 08:00 64 19 135/63 91 07/05/16 08:00 64 07/05/16 08:00 64 07/05/16 08:00 64 19 135/63 91 07/05/16 08:00 64 19 135/63 91 07/05/16 08:00 64 07/05/16 04:00 98.7 67 18 105/51 95 07/05/16 04:00 67 07/05/16 00:00 98.8 70 20 98/51 96 07/05/16 00:00 70 07/04/16 23:18 94 Nasal Cannula 3.00 07/04/16 20:00 99.9 70 22 142/63 96 07/04/16 20:00 70 I/O 07/04/16 07/04/16 07/04/16 07/05/16 07/05/16 07/05/16 07:00 15:00 23:00 07:00 15:00 23:00 Intake Total 221 ml 862 ml 105 ml 105 ml 874 ml Output Total 200 ml 400 ml 500 ml 600 ml 2000 ml Balance 21 ml 462 ml -395 ml -495 ml -1126 ml Intake Oral 150 ml 620 ml 750 ml IV Total 71 ml 242 ml 105 ml 105 ml 124 ml Output Urine Total 200 ml 400 ml 500 ml 600 ml 600 ml Drainage Total 1400 ml # Bowel Movements 1 0 0 1 Result Diagram: 07/04/16 0329 07/05/16 0455 Imaging Last Impressions Thoracentesis Ultrasound 07/05/16 0600 Signed Impressions: Service Date/Time: June 10:34 - CONCLUSION: Uncomplicated ultrasound guided thoracentesis. Edgar Rice MD Chest X-Ray 07/05/16 0000 Signed Impressions: Service Date/Time: June 11:27 - CONCLUSION: Bilateral pleural effusions left greater than right. No visible pneumothorax Kumar Rodriguez MD Chest CT 07/02/16 0000 Signed Impressions: Service Date/Time: Saturday, July 02, 2016 23:35 - CONCLUSION: 1. Moderate sized bilateral pleural effusions with dense consolidation in both posterior lower lobes. 2. Right upper lobe bronchiectasis with 4 cm mass like area in the right upper lobe. 3. Cardiomegaly with small pericardial effusion. 4. Cirrhotic liver. 5. Mild splenomegaly with multiple varices in the upper left abdomen. Carlos Watts MD Upper Extremity Ultrasound 06/25/16 0000 Signed Impressions: Service Date/Time: Saturday, June 25, 2016 12:29 - CONCLUSION: 1. Occlusive thrombus in the left cephalic vein. 2. No deep venous thrombosis from the right arm.. Pepito Kulkarni MD Renal Ultrasound 06/25/16 0000 Signed Impressions: Service Date/Time: Saturday, June 25, 2016 22:41 - CONCLUSION: 1. Unremarkable kidneys. 2. Small volume ascites. 3. Bilateral pleural effusions. 4. Splenomegaly. Carroll Joel Jr., MD Lung Scan- Nuclear Medicine 06/25/16 0000 Signed Impressions: Service Date/Time: Saturday, June 25, 2016 08:33 - CONCLUSION: Low probability for pulmonary embolism. Moderate ventilatory defect. Alexy Padron MD FACR Head CT 06/25/16 0000 Signed Impressions: Service Date/Time: Saturday, June 25, 2016 04:22 - CONCLUSION: 1. Atrophy. 2. No acute intracranial abnormality. Carroll Joel Jr., MD Procedures Endotracheal intubation and Extubation Vasopressor use. Right and Left Thoracentesis. fiber optic Laryngoscopy Other Results Laboratory Tests Test 07/01/16 07/03/16 07/04/16 07/05/16 08:45 15:15 03:29 04:55 Phosphorus Level 1.7 MG/DL Magnesium Level 1.6 MG/DL Pleural Fluid pH 8.0 Pleural Fluid WBC 238 /MM3 Pleural Fluid RBC 147 /MM3 Pleural Fluid Neutrophils 24 % Pleural Fluid Lymphocytes 61 % Pleural Fluid Monocytes 7 % Pleural Fluid Eosinophils 1 % Pleural Fluid Histiocytes 7 % Pleural Fluid Total Protein 2.0 GM/DL Pleural Fluid LDH 121 U/L Pleural Fluid Glucose 161 MG/DL Pleural Fluid Amylase 9 U/L White Blood Count 4.8 TH/MM3 Red Blood Count 2.59 MIL/MM3 Hemoglobin 8.6 GM/DL Hematocrit 25.6 % Mean Corpuscular Volume 99.2 FL Mean Corpuscular Hemoglobin 33.4 PG Mean Corpuscular Hemoglobin 33.7 % Concent Red Cell Distribution Width 17.7 % Platelet Count 79 TH/MM3 Mean Platelet Volume 7.9 FL Neutrophils (%) (Auto) 71.5 % Lymphocytes (%) (Auto) 14.0 % Monocytes (%) (Auto) 10.4 % Eosinophils (%) (Auto) 3.4 % Basophils (%) (Auto) 0.7 % Neutrophils # (Auto) 3.5 TH/MM3 Lymphocytes # (Auto) 0.7 TH/MM3 Monocytes # (Auto) 0.5 TH/MM3 Eosinophils # (Auto) 0.2 TH/MM3 Basophils # (Auto) 0.0 TH/MM3 CBC Comment AUTO DIFF Differential Comment AUTO DIFF CONFIRMED Platelet Estimate LOW Platelet Morphology Comment NORMAL Sodium Level 138 MEQ/L Potassium Level 3.9 MEQ/L Chloride Level 96 MEQ/L Carbon Dioxide Level 36.0 MEQ/L Anion Gap 6 MEQ/L Blood Urea Nitrogen 19 MG/DL Creatinine 1.67 MG/DL Estimat Glomerular Filtration 41 ML/MIN Rate Random Glucose 99 MG/DL Calcium Level 7.7 MG/DL Objective Remarks GENERAL: No acute distress SKIN: Warm and dry. No rash HEAD: Normocephalic. EYES: No scleral icterus. No injection or drainage. NECK: Supple, trachea midline. No JVD or lymphadenopathy. Dysphonia. CARDIOVASCULAR: Regular rate and rhythm . S1, S2 no S4. Without murmurs, gallops, or rubs. RESPIRATORY: decreased breath sounds bilateral, no wheezing or crackles. GASTROINTESTINAL: Abdomen soft, non-tender, nondistended. MUSCULOSKELETAL: No significant peripheral edema Neuro: Cranial nerve II through XII grossly intact. Strength equal/symmetric bilaterally. Normal sensation Medications and IVs Current Medications Medications (Trade) Dose Ordered Sig/Irene Route Start Time Stop Time Status Last Admin (NS Flush) 2 ml UNSCH PRN IVF 06/25/16 03:30 07/03/16 21:53 (NS Flush) 2 ml UNSCH PRN IVF 06/25/16 03:30 (Brethine Inj) 1 mg UNSCH PRN SQ 06/25/16 06:15 Miscellaneous Information 1 Q361D XX 06/25/16 10:45 06/25/16 10:45 (Chlorhexidine 2% Cloth) Taper DAILY@04 TOP 06/26/16 04:00 06/22/17 03:59 07/04/16 04:00 (Chlorhexidine 2% Cloth) 3 pack UNSCH PRN TOP 06/25/16 10:45 (D50w (Vial) Inj) 25 ml UNSCH PRN IV PUSH 06/25/16 10:45 (Glucagon Inj) 1 mg UNSCH PRN OTHER 06/25/16 10:45 (Aspirin Chew) 81 mg DAILY CHEW 06/25/16 14:00 07/05/16 08:58 (Vitamin B1) 100 mg DAILY PO 06/25/16 15:00 07/05/16 09:00 (Symbicort 80-4.5 Mcg Inh) 2 puff Q12HR INH 06/26/16 23:00 07/05/16 09:00 (Tums Chew) 500 mg BID CHEW 06/27/16 09:00 07/05/16 08:58 (Lactinex) 1 tab TIDAC PO 06/27/16 12:00 07/05/16 16:33 (Lactulose Liq) 30 ml BID PO 06/27/16 09:00 07/04/16 20:34 (Mycostatin Powder) 1 applic Q12HR TOPICAL 06/27/16 09:00 07/05/16 09:00 (Cordarone) 200 mg DAILY PO 06/28/16 09:00 07/05/16 08:58 (Protonix Inj) 40 mg BID IV PUSH 06/27/16 21:00 07/05/16 08:59 (Folate) 1 mg DAILY PO 06/28/16 09:00 07/05/16 08:58 (Theragran) 1 tab DAILY PO 06/28/16 09:00 07/05/16 08:58 (Roxicodone) 5 mg Q6H PRN PO 06/27/16 09:30 (Drisdol) 50,000 units Q7D PO 06/27/16 20:00 07/04/16 20:34 Carvedilol 3.125 mg 3.125 mg Q12HR PO 06/28/16 09:00 07/05/16 08:58 (Zosyn 3.375 Gm Premix) 50 ml @ 100 mls/hr Q6H IV 06/29/16 15:00 07/05/16 15:00 (Mag-Ox) 400 mg Q12HR PO 06/30/16 21:00 07/05/16 08:58 (NovoLIN R INJ) 5 units TIDAC SQ 07/01/16 08:00 07/05/16 16:34 (Levemir Inj) 10 units HS SQ 07/02/16 21:00 07/04/16 20:39 (Bumetanide) 1 mg DAILY PO 07/05/16 09:00 07/05/16 08:59 A/P Assessment and Plan 1. EtOH/History of hepatic Encephalopathy, to continue lactulose 30 ml BID, Oxycodone for pain management, Thiamine 2. CHF chronic Systolic/pericardial Effusion/Atrial Fibrillation Echocardiogram 06/25 EF 35-40%, No regional wall motion abnormality, non candidate for left heart catheterization, Coreg 3.125 mg BID, aspirin 81 mg daily, Amiodarone 400 mg BID, decreased to 200 mg daily, no signs of tamponade Improving clinically. new CXR opacities and moderate pleural effusions, travel specialist following, the patient had Right thoracentesis and now status post Left thoracentesis. 3. Acute Hypoxemic respiratory failure/CHF exacerbation and Infectious etiology , Bronchial Asthma, Bilateral Pleural effusions Bronchodilator, Mucolytic and incentive spirometry. V/Q scan low probability for Pulmonary embolism. had bilateral Thoracentesis. 4. 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 Protonix 40 mg BID, Lactulose 30 ml BID, Ammonia level 40. 5. BPH by history no signs or Urinary retention 6. DM II, elevated parathyroid hormone/Low Vitamin D 25. Uncontrolled, on Levemir, sliding scale, scheduled regular insulin with meals. stable continue present care, he is eating better. but continue with controlled blood sugars in am. 7. Acute Renal Injury. Nephrology specialist Following, Bumex 1 mg BID, Renal US no Hydronephrosis, today mild worsening decreased dosages of Bumetanide to once a day. stable renal function. 8. Left Cephalic vein thrombosis/Thrombocytopenia Stable. 9. recently treated Left knee osteomyelitis Vancomycin and Diflucan, CAP on Zosyn blood cultures No Growth. Not improving in imaging studies, improving clinically will get CT chest without contrast and follow environmental programs specialist recommendations. continue present antibiotics by travel specialist. 10. Dysphonia status post Fiber Optic Laryngoscopy and seen by ENT found some inflammatory changes, he states he will Improve once he is stronger on his ventilatory capacity and edema improves. Transfer to Medical Floor. PT evaluate and treat Prophylaxis - GI - Protonix - DVT - SCD/pharmacological prophylaxis held due to GI bleed Discharge Planning Not yet cleared for discharge Murphy Cedeno MD July 05, 2016 16:47
--- NOTE | 2016-07-05 19:43 | HHI.PR ---
Subjective Remarks 66 YOWM with CHF,RF, s/p extubation Still Has hoarseness of voice. has Pl effusion had Left TC,1400 cc fluid removed Has cough and congestion Still has mild sob Feels weak Objective Vital Signs Vital Signs Date Time Temp Pulse Resp B/P Pulse Ox O2 Delivery O2 Flow Rate FiO2 07/05/16 16:00 100.9 07/05/16 15:00 98.7 07/05/16 14:00 64 26 90 07/05/16 14:00 64 26 90 07/05/16 14:00 64 07/05/16 12:50 94 Nasal Cannula 3.00 07/05/16 12:32 59 25 92/51 07/05/16 12:32 59 07/05/16 12:32 59 07/05/16 12:32 59 25 92/51 07/05/16 12:32 59 25 92/51 07/05/16 12:32 59 25 92/51 07/05/16 12:32 59 25 92/51 07/05/16 12:00 62 16 96/52 93 07/05/16 11:45 62 16 88/50 93 07/05/16 11:30 97.4 62 16 90/40 93 07/05/16 10:36 97.5 80 20 97/45 95 07/05/16 09:00 64 19 108/55 96 07/05/16 09:00 64 19 108/55 96 07/05/16 09:00 64 19 108/55 96 07/05/16 09:00 64 07/05/16 09:00 64 19 108/55 96 07/05/16 09:00 64 19 108/55 96 07/05/16 09:00 64 07/05/16 09:00 64 19 108/55 96 07/05/16 09:00 64 07/05/16 08:00 64 19 135/63 91 07/05/16 08:00 64 19 135/63 91 07/05/16 08:00 64 19 135/63 91 07/05/16 08:00 64 19 135/63 91 07/05/16 08:00 64 07/05/16 08:00 64 07/05/16 08:00 64 19 135/63 91 07/05/16 08:00 64 19 135/63 91 07/05/16 08:00 64 07/05/16 04:00 98.7 67 18 105/51 95 07/05/16 04:00 67 07/05/16 00:00 98.8 70 20 98/51 96 07/05/16 00:00 70 07/04/16 23:18 94 Nasal Cannula 3.00 07/04/16 20:00 99.9 70 22 142/63 96 07/04/16 20:00 70 I/O 07/04/16 07/04/16 07/04/16 07/05/16 07/05/16 07/05/16 07:00 15:00 23:00 07:00 15:00 23:00 Intake Total 221 ml 862 ml 105 ml 105 ml 874 ml Output Total 200 ml 400 ml 500 ml 600 ml 2000 ml Balance 21 ml 462 ml -395 ml -495 ml -1126 ml Intake Oral 150 ml 620 ml 750 ml IV Total 71 ml 242 ml 105 ml 105 ml 124 ml Output Urine Total 200 ml 400 ml 500 ml 600 ml 600 ml Drainage Total 1400 ml # Bowel Movements 1 0 0 1 Result Diagram: 07/04/16 0329 07/05/16 0455 Objective Remarks GENERAL: MBMN WM, mild sob SKIN: Warm and dry. HEAD: Normocephalic. EYES: No scleral icterus. No injection or drainage. NECK: Supple, trachea midline. No JVD or lymphadenopathy. CARDIOVASCULAR: Regular rate and rhythm without murmurs, gallops, or rubs. RESPIRATORY: Breath sounds equal bilaterally. No accessory muscle use. Scattered rales GASTROINTESTINAL: Abdomen soft, non-tender, nondistended. MUSCULOSKELETAL: No cyanosis, or edema. BACK: Nontender without obvious deformity. No CVA tenderness. A/P Assessment and Plan RF, s/p Extubation Pl effusion, s/p right TC DM CHF Anemia Renal insuff PLAN: Cont Abx Aerosol nebs Diurease with Bumex Symbicort 2 puffs bid Ashish Thorpe MD July 05, 2016 19:43
[2016-07-05] MEDS: INSULIN DETEMIR 100 UNITS/ML VIAL SQ SCH (21:32)
[2016-07-06] VITALS: BP_SYST 87; BP_SYST 97; BP_DIAS 64; PULSE 54; PULSE 64; RESP 24; TEMP 98.4; TEMP 99; O2SAT 94; O2SAT 96
[2016-07-06 04:00] VITALS: BP 95/54; PULSE 56; PULSE 64; RESP 18; TEMP 98.7; O2SAT 92
[2016-07-06] MEDS: RESP: ALBUTEROL 2.5 MG/3 ML NEB (PRN) NEB ×2 (06:00→20:02)
[2016-07-06] MEDS: PIPERACIL-TAZO 3.375 GM PREMIX 50 ML IV SCH ×4 (06:02→21:00)
[2016-07-06] MEDS: INSULIN NovoLIN REGULAR SUPPLEMENTAL SCALE SQ SCH ×4 (06:05→21:00)
[2016-07-06 08:00] VITALS: BP 89/52; PULSE 62; PULSE 64; RESP 34
[2016-07-06] MEDS: INSULIN HUMAN REGULAR 1,000 UNITS/10 ML VIAL SQ SCH ×3 (08:00→17:27)
[2016-07-06] MEDS: BUMETANIDE 1 MG TAB PO SCH (08:48)
[2016-07-06] MEDS: MULTIVITAMIN TAB PO SCH (08:48)
[2016-07-06] MEDS: FOLIC ACID 1 MG TAB PO SCH (08:49)
[2016-07-06] MEDS: AMIODARONE 200 MG TAB PO SCH (08:49)
[2016-07-06] MEDS: CALCIUM CARBONATE 500 MG CHEWABLE TAB CHEW SCH ×2 (08:49→22:34)
[2016-07-06] MEDS: MAGNESIUM OXIDE 400 MG TAB PO SCH ×2 (08:49→21:00)
[2016-07-06] MEDS: CARVEDILOL 3.125 MG TAB PO SCH ×2 (08:49→21:00)
[2016-07-06] MEDS: ASPIRIN 81 MG CHEW TAB CHEW SCH (08:49)
[2016-07-06] MEDS: PANTOPRAZOLE SODIUM 40 MG VIAL IV PUSH SCH ×2 (08:49→22:37)
[2016-07-06] MEDS: BUDESONIDE-FORMOTEROL 80/4.5 MCG INHALER INH SCH ×2 (08:50→22:38)
[2016-07-06] MEDS: SODIUM CHLORIDE 0.9% FLUSH 10 ML FLUSH IVF PRN ×2 (08:56→22:43)
[2016-07-06] MEDS: THIAMINE HCL 100 MG TAB PO SCH (09:00)
[2016-07-06] MEDS: LACTULOSE SYRUP 20 GM/30 ML CUP PO SCH ×2 (09:00→21:00)
[2016-07-06] MEDS: LACTOBACILLUS ACIDOPHILUS TAB PO SCH ×3 (09:50→17:25)
[2016-07-06] MEDS: NYSTATIN 100,000 U/GM PWD 15 GM BTL TOPICAL SCH ×2 (09:51→21:00)
[2016-07-06 12:00] VITALS: BP 95/55; PULSE 62; RESP 20; TEMP 98.1; O2SAT 97
--- NOTE | 2016-07-06 12:19 | HHI.PR ---
Subjective Remarks Critical Care Notes: The patient is a 66-year-old male with a past medical history of diabetes mellitus, bronchial asthma, ETOH use, cirrhosis, who presented to [facility] ED from a nursing facility for shortness of breath. The patient was recently hospitalized in the end of April, for GI bleed secondary to large duodenal ulcer. 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 He required multiple blood transfusions, intubation and mechanical ventilation. In addition , the patient had two endoscopies. On arrival to the ED the patient was hypotensive with blood pressure 94/50 and his laboratory data showed mild acute kidney injury with a BUN of 21, creatinine 1.86, lactic acidosis with lactic acid level 3.6 and elevated BNP at 427. In addition, he was found to have elevated D-dimer at 12.28. CT scan of the brain was obtained which showed no atrophy, otherwise no acute intracranial abnormalities. A VQ scan was obtained as well in the ER which showed low probability for pulmonary embolism. His initial chest x-ray from early this morning showed bilateral pleural effusions and patchy bilateral pulmonary infiltrates. Central line was placed by ED physician and a repeat chest x-ray showed right IJ central line in good position , bilateral effusions with bilateral parenchymal densities, right greater than the left. In the ER he was given 2 liters of crystalloids in addition to vancomycin, Zosyn, Solu-Medrol, bronchodilator and Bumex. He was hypotensive in the ER and the patient was placed on Levophed which is currently at three mics. Due to his respiratory distress, the patient was intubated and placed on full mechanical ventilation. When seen he is on Diprivan infusion for sedation. However, the patient is awake, alert and follows commands. ABG post intubation showed a pH of 7.35, CO2 48, pAO2 325, bicarb 26, saturation of 98%. 06/26: Patient is sedated with Diprivan. Afebrile. Off Levophed. 06/27: Extubated 06/26. Of all vasopressors. Currently on nasal cannula. Tolerating diet. 06/28: Currently complaining of chest discomfort/pleuritic with breathing and shortness of breath. On 4 L nasal cannula. Complaining of difficulty with swallowing. No bowel movement. Up in chair 4 hours yesterday. Hospitalist Notes: 06/30: The patient is been given to me today by Hospitalist Coordinator. 07/01: Mild uncontrolled blood sugar, increased Levemir, will get new CXR in am tomorrow, if improving may be discharged home, also his electrolytes were replaced and continue following. has Dysphonia after endotracheal intubation and extubation, may need ENT evaluation. 07/02: Seen in his bedroom in the presence of his Brother Mr. Randy Gonzalez, asked for ENT evaluation, CT chest he continue with pulmonary opacities continue antibiotics, but he is improving on Diuretics. 07/03: Has Pleural effusions was recommended for Thoracentesis of the right side. 07/04: Had Right Thoracentesis, for Left Thoracentesis now. 07/05: Status post Left Thoracentesis 07/06: Patient stable in his bedroom, continue with Dysphonia, but no nausea, vomit or diarrhea, improving condition, now in Med Surg may be leaving on by mouth antibiotics the next days if okay with retail beauty specialist. Objective Vital Signs Date Time Temp Pulse Resp B/P Pulse Ox O2 Delivery O2 Flow Rate FiO2 07/06/16 08:00 64 34 89/52 07/06/16 08:00 62 07/06/16 04:00 56 07/06/16 04:00 98.7 64 18 95/54 92 07/06/16 00:00 54 07/06/16 00:00 98.4 64 24 97/64 96 07/06/16 00:00 99.0 64 24 87/64 94 07/05/16 20:00 61 07/05/16 20:00 99.1 61 24 114/73 92 07/05/16 19:51 92 Nasal Cannula 3.00 07/05/16 16:00 100.9 07/05/16 15:00 98.7 07/05/16 14:00 64 26 90 07/05/16 14:00 64 26 90 07/05/16 14:00 64 07/05/16 12:50 94 Nasal Cannula 3.00 07/05/16 12:32 59 25 92/51 07/05/16 12:32 59 07/05/16 12:32 59 07/05/16 12:32 59 25 92/51 07/05/16 12:32 59 25 92/51 07/05/16 12:32 59 25 92/51 07/05/16 12:32 59 25 92/51 I/O 07/05/16 07/05/16 07/05/16 07/06/16 07/06/16 07/06/16 07:00 15:00 23:00 07:00 15:00 23:00 Intake Total 105 ml 874 ml 600 ml 250 ml Output Total 600 ml 2000 ml 300 ml 250 ml Balance -495 ml -1126 ml 300 ml 0 ml Intake Oral 750 ml 420 ml 200 ml IV Total 105 ml 124 ml 180 ml 50 ml Output Urine Total 600 ml 600 ml 300 ml 250 ml Drainage Total 1400 ml # Bowel Movements 0 1 Result Diagram: 07/04/16 0329 07/05/16 0455 Imaging Last Impressions Thoracentesis Ultrasound 07/05/16 0600 Signed Impressions: Service Date/Time: June 10:34 - CONCLUSION: Uncomplicated ultrasound guided thoracentesis. Edgar Rice MD Chest X-Ray 07/05/16 0000 Signed Impressions: Service Date/Time: June 11:27 - CONCLUSION: Bilateral pleural effusions left greater than right. No visible pneumothorax Kumar Rodriguez MD Chest CT 07/02/16 0000 Signed Impressions: Service Date/Time: Saturday, July 02, 2016 23:35 - CONCLUSION: 1. Moderate sized bilateral pleural effusions with dense consolidation in both posterior lower lobes. 2. Right upper lobe bronchiectasis with 4 cm mass like area in the right upper lobe. 3. Cardiomegaly with small pericardial effusion. 4. Cirrhotic liver. 5. Mild splenomegaly with multiple varices in the upper left abdomen. Carlos Watts MD Upper Extremity Ultrasound 06/25/16 0000 Signed Impressions: Service Date/Time: Saturday, June 25, 2016 12:29 - CONCLUSION: 1. Occlusive thrombus in the left cephalic vein. 2. No deep venous thrombosis from the right arm.. Pepito Kulkarni MD Renal Ultrasound 06/25/16 0000 Signed Impressions: Service Date/Time: Saturday, June 25, 2016 22:41 - CONCLUSION: 1. Unremarkable kidneys. 2. Small volume ascites. 3. Bilateral pleural effusions. 4. Splenomegaly. Carroll Joel Jr., MD Lung Scan-V Nuclear Medicine 06/25/16 0000 Signed Impressions: Service Date/Time: Saturday, June 25, 2016 08:33 - CONCLUSION: Low probability for pulmonary embolism. Moderate ventilatory defect. Alexy Padron MD FACR Head CT 06/25/16 0000 Signed Impressions: Service Date/Time: Saturday, June 25, 2016 04:22 - CONCLUSION: 1. Atrophy. 2. No acute intracranial abnormality. Carroll Joel Jr., MD Procedures Endotracheal intubation and Extubation Vasopressor use. Right and Left Thoracentesis. fiber optic Laryngoscopy Other Results Laboratory Tests Test 07/03/16 07/04/16 07/05/16 15:15 03:29 04:55 Pleural Fluid pH 8.0 Pleural Fluid WBC 238 /MM3 Pleural Fluid RBC 147 /MM3 Pleural Fluid Neutrophils 24 % Pleural Fluid Lymphocytes 61 % Pleural Fluid Monocytes 7 % Pleural Fluid Eosinophils 1 % Pleural Fluid Histiocytes 7 % Pleural Fluid Total Protein 2.0 GM/DL Pleural Fluid LDH 121 U/L Pleural Fluid Glucose 161 MG/DL Pleural Fluid Amylase 9 U/L White Blood Count 4.8 TH/MM3 Red Blood Count 2.59 MIL/MM3 Hemoglobin 8.6 GM/DL Hematocrit 25.6 % Mean Corpuscular Volume 99.2 FL Mean Corpuscular Hemoglobin 33.4 PG Mean Corpuscular Hemoglobin 33.7 % Concent Red Cell Distribution Width 17.7 % Platelet Count 79 TH/MM3 Mean Platelet Volume 7.9 FL Neutrophils (%) (Auto) 71.5 % Lymphocytes (%) (Auto) 14.0 % Monocytes (%) (Auto) 10.4 % Eosinophils (%) (Auto) 3.4 % Basophils (%) (Auto) 0.7 % Neutrophils # (Auto) 3.5 TH/MM3 Lymphocytes # (Auto) 0.7 TH/MM3 Monocytes # (Auto) 0.5 TH/MM3 Eosinophils # (Auto) 0.2 TH/MM3 Basophils # (Auto) 0.0 TH/MM3 CBC Comment AUTO DIFF Differential Comment AUTO DIFF CONFIRMED Platelet Estimate LOW Platelet Morphology Comment NORMAL Sodium Level 138 MEQ/L Potassium Level 3.9 MEQ/L Chloride Level 96 MEQ/L Carbon Dioxide Level 36.0 MEQ/L Anion Gap 6 MEQ/L Blood Urea Nitrogen 19 MG/DL Creatinine 1.67 MG/DL Estimat Glomerular Filtration 41 ML/MIN Rate Random Glucose 99 MG/DL Calcium Level 7.7 MG/DL Objective Remarks GENERAL: No acute distress SKIN: Warm and dry. No rash HEAD: Normocephalic. EYES: No scleral icterus. No injection or drainage. NECK: Supple, trachea midline. No JVD or lymphadenopathy. Dysphonia. CARDIOVASCULAR: Regular rate and rhythm . S1, S2 no S4. Without murmurs, gallops, or rubs. RESPIRATORY: decreased breath sounds bilateral, no wheezing or crackles. Harsh sounds. GASTROINTESTINAL: Abdomen soft, non-tender, nondistended. MUSCULOSKELETAL: No significant peripheral edema Neuro: Cranial nerve II through XII grossly intact. Strength equal/symmetric bilaterally. Normal sensation Medications and IVs Current Medications Medications (Trade) Dose Ordered Sig/Irene Route Start Time Stop Time Status Last Admin (NS Flush) 2 ml UNSCH PRN IVF 06/25/16 03:30 07/06/16 08:56 (NS Flush) 2 ml UNSCH PRN IVF 06/25/16 03:30 (Brethine Inj) 1 mg UNSCH PRN SQ 06/25/16 06:15 Miscellaneous Information 1 Q361D XX 06/25/16 10:45 06/25/16 10:45 (Chlorhexidine 2% Cloth) Taper DAILY@04 TOP 06/26/16 04:00 06/22/17 03:59 07/04/16 04:00 (Chlorhexidine 2% Cloth) 3 pack UNSCH PRN TOP 06/25/16 10:45 (D50w (Vial) Inj) 25 ml UNSCH PRN IV PUSH 06/25/16 10:45 (Glucagon Inj) 1 mg UNSCH PRN OTHER 06/25/16 10:45 (Aspirin Chew) 81 mg DAILY CHEW 06/25/16 14:00 07/06/16 08:49 (Vitamin B1) 100 mg DAILY PO 06/25/16 15:00 07/06/16 09:00 (Symbicort 80-4.5 Mcg Inh) 2 puff Q12HR INH 06/26/16 23:00 07/06/16 08:50 (Tums Chew) 500 mg BID CHEW 06/27/16 09:00 07/06/16 08:49 (Lactinex) 1 tab TIDAC PO 06/27/16 12:00 07/06/16 09:50 (Lactulose Liq) 30 ml BID PO 06/27/16 09:00 07/05/16 21:28 (Mycostatin Powder) 1 applic Q12HR TOPICAL 06/27/16 09:00 07/06/16 09:51 (Cordarone) 200 mg DAILY PO 06/28/16 09:00 07/06/16 08:49 (Protonix Inj) 40 mg BID IV PUSH 06/27/16 21:00 07/06/16 08:49 (Folate) 1 mg DAILY PO 06/28/16 09:00 07/06/16 08:49 (Theragran) 1 tab DAILY PO 06/28/16 09:00 07/06/16 08:48 (Roxicodone) 5 mg Q6H PRN PO 06/27/16 09:30 07/06/16 06:19 (Drisdol) 50,000 units Q7D PO 06/27/16 20:00 07/04/16 20:34 Carvedilol 3.125 mg 3.125 mg Q12HR PO 06/28/16 09:00 07/06/16 08:49 (Zosyn 3.375 Gm Premix) 50 ml @ 100 mls/hr Q6H IV 06/29/16 15:00 07/06/16 08:49 (Mag-Ox) 400 mg Q12HR PO 06/30/16 21:00 07/06/16 08:49 (NovoLIN R INJ) 5 units TIDAC SQ 07/01/16 08:00 07/06/16 08:00 (Levemir Inj) 10 units HS SQ 07/02/16 21:00 07/05/16 21:32 (Bumetanide) 1 mg DAILY PO 07/05/16 09:00 07/06/16 08:48 A/P Assessment and Plan 1. EtOH/History of hepatic Encephalopathy, to continue lactulose 30 ml BID, Oxycodone for pain management, Thiamine 2. CHF chronic Systolic/pericardial Effusion/Atrial Fibrillation Echocardiogram 06/25 EF 35-40%, No regional wall motion abnormality, non candidate for left heart catheterization, Coreg 3.125 mg BID, aspirin 81 mg daily, Amiodarone 400 mg BID, decreased to 200 mg daily, no signs of tamponade Improving clinically. new CXR opacities and moderate pleural effusions, retail beauty specialist following, the patient had Right thoracentesis and now status post Left thoracentesis. 3. Acute Hypoxemic respiratory failure/CHF exacerbation and Infectious etiology , Bronchial Asthma, Bilateral Pleural effusions Bronchodilator, Mucolytic and incentive spirometry. V/Q scan low probability for Pulmonary embolism. had bilateral Thoracentesis. 4. 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 Protonix 40 mg BID, Lactulose 30 ml BID, Ammonia level 40. 5. BPH by history no signs or Urinary retention 6. DM II, elevated parathyroid hormone/Low Vitamin D 25. Uncontrolled, on Levemir, sliding scale, scheduled regular insulin with meals. stable continue present care, he is eating better. but continue with controlled blood sugars in am. 7. Acute Renal Injury. Nephrology specialist Following, Bumex 1 mg BID, Renal US no Hydronephrosis, today mild worsening decreased dosages of Bumetanide to once a day. stable renal function. 8. Left Cephalic vein thrombosis/Thrombocytopenia Stable. 9. recently treated Left knee osteomyelitis Vancomycin and Diflucan, CAP on Zosyn blood cultures No Growth. Not improving in imaging studies, improving clinically will get CT chest without contrast and follow recreational specialist recommendations. continue present antibiotics by retail beauty specialist. 10. Dysphonia status post Fiber Optic Laryngoscopy and seen by ENT found some inflammatory changes, he states he will Improve once he is stronger on his ventilatory capacity and edema improves. PT evaluate and treat Prophylaxis - GI - Protonix - DVT - SCD/pharmacological prophylaxis held due to GI bleed Discharge Planning Awaiting final recommendations by retail beauty specialist for Discharge probably tomorrow. Murphy Cedeno MD July 06, 2016 12:19
[2016-07-06 16:00] VITALS: BP 103/56; PULSE 63; RESP 20; TEMP 98.9; O2SAT 98
--- NOTE | 2016-07-06 19:04 | HHI.PR ---
Subjective Remarks 66 YOWM with CHF,RF, s/p extubation Still Has hoarseness of voice. Has cough and congestion Still has mild sob Objective Vital Signs Vital Signs Date Time Temp Pulse Resp B/P Pulse Ox O2 Delivery O2 Flow Rate FiO2 07/06/16 12:00 98.1 62 20 95/55 97 07/06/16 08:00 64 34 89/52 07/06/16 08:00 62 07/06/16 04:00 56 07/06/16 04:00 98.7 64 18 95/54 92 07/06/16 00:00 54 07/06/16 00:00 98.4 64 24 97/64 96 07/06/16 00:00 99.0 64 24 87/64 94 07/05/16 20:00 61 07/05/16 20:00 99.1 61 24 114/73 92 07/05/16 19:51 92 Nasal Cannula 3.00 I/O 07/05/16 07/05/16 07/05/16 07/06/16 07/06/16 07/06/16 07:00 15:00 23:00 07:00 15:00 23:00 Intake Total 105 ml 874 ml 600 ml 250 ml Output Total 600 ml 2000 ml 300 ml 250 ml Balance -495 ml -1126 ml 300 ml 0 ml Intake Oral 750 ml 420 ml 200 ml IV Total 105 ml 124 ml 180 ml 50 ml Output Urine Total 600 ml 600 ml 300 ml 250 ml Drainage Total 1400 ml # Bowel Movements 0 1 Result Diagram: 07/04/16 0329 07/05/16 0455 Objective Remarks GENERAL: MBMN WM, mild sob SKIN: Warm and dry. HEAD: Normocephalic. EYES: No scleral icterus. No injection or drainage. NECK: Supple, trachea midline. No JVD or lymphadenopathy. CARDIOVASCULAR: Regular rate and rhythm without murmurs, gallops, or rubs. RESPIRATORY: Breath sounds equal bilaterally. No accessory muscle use. Scattered rales GASTROINTESTINAL: Abdomen soft, non-tender, nondistended. MUSCULOSKELETAL: No cyanosis, or edema. BACK: Nontender without obvious deformity. No CVA tenderness. A/P Assessment and Plan RF, s/p Extubation Pl effusion, s/p right TC DM CHF Anemia Renal insuff PLAN: Cont Abx Aerosol nebs Diurease with Bumex Symbicort 2 puffs bid Encourage to use Ashish Katz MD July 06, 2016 19:04
[2016-07-06 20:00] VITALS: BP 105/55; PULSE 63; RESP 18; TEMP 99.2; O2SAT 100
[2016-07-06] MEDS: INSULIN DETEMIR 100 UNITS/ML VIAL SQ SCH (22:57)
[2016-07-07] VITALS: BP 95/50; PULSE 65; RESP 18; TEMP 98.8; O2SAT 99
[2016-07-07] MEDS: PIPERACIL-TAZO 3.375 GM PREMIX 50 ML IV SCH ×4 (03:28→21:49)
[2016-07-07] MEDS: INSULIN NovoLIN REGULAR SUPPLEMENTAL SCALE SQ SCH ×4 (05:51→21:57)
[2016-07-07 08:00] VITALS: BP 104/51; PULSE 61; RESP 16; TEMP 97.8; O2SAT 99
--- NOTE | 2016-07-07 08:27 | HHI.PR ---
Subjective Remarks Critical Care Notes: The patient is a 66-year-old male with a past medical history of diabetes mellitus, bronchial asthma, ETOH use, cirrhosis, who presented to [facility] ED from a nursing facility for shortness of breath. The patient was recently hospitalized in the end of April, for GI bleed secondary to large duodenal ulcer. 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 He required multiple blood transfusions, intubation and mechanical ventilation. In addition , the patient had two endoscopies. On arrival to the ED the patient was hypotensive with blood pressure 94/50 and his laboratory data showed mild acute kidney injury with a BUN of 21, creatinine 1.86, lactic acidosis with lactic acid level 3.6 and elevated BNP at 427. In addition, he was found to have elevated D-dimer at 12.28. CT scan of the brain was obtained which showed no atrophy, otherwise no acute intracranial abnormalities. A VQ scan was obtained as well in the ER which showed low probability for pulmonary embolism. His initial chest x-ray from early this morning showed bilateral pleural effusions and patchy bilateral pulmonary infiltrates. Central line was placed by ED physician and a repeat chest x-ray showed right IJ central line in good position , bilateral effusions with bilateral parenchymal densities, right greater than the left. In the ER he was given 2 liters of crystalloids in addition to vancomycin, Zosyn, Solu-Medrol, bronchodilator and Bumex. He was hypotensive in the ER and the patient was placed on Levophed which is currently at three mics. Due to his respiratory distress, the patient was intubated and placed on full mechanical ventilation. When seen he is on Diprivan infusion for sedation. However, the patient is awake, alert and follows commands. ABG post intubation showed a pH of 7.35, CO2 48, pAO2 325, bicarb 26, saturation of 98%. 06/26: Patient is sedated with Diprivan. Afebrile. Off Levophed. 06/27: Extubated 06/26. Of all vasopressors. Currently on nasal cannula. Tolerating diet. 06/28: Currently complaining of chest discomfort/pleuritic with breathing and shortness of breath. On 4 L nasal cannula. Complaining of difficulty with swallowing. No bowel movement. Up in chair 4 hours yesterday. Hospitalist Notes: 06/30: The patient is been given to me today by Hospitalist Coordinator. 07/01: Mild uncontrolled blood sugar, increased Levemir, will get new CXR in am tomorrow, if improving may be discharged home, also his electrolytes were replaced and continue following. has Dysphonia after endotracheal intubation and extubation, may need ENT evaluation. 07/02: Seen in his bedroom in the presence of his Brother Mr. Randy Gonzalez, asked for ENT evaluation, CT chest he continue with pulmonary opacities continue antibiotics, but he is improving on Diuretics. 07/03: Has Pleural effusions was recommended for Thoracentesis of the right side. 07/04: Had Right Thoracentesis, for Left Thoracentesis now. 07/05: Status post Left Thoracentesis 07/06: Patient stable in his bedroom, continue with Dysphonia, but no nausea, vomit or diarrhea, improving condition, now in Med Surg 07/07: Seen in his bedroom, and discussed with nurse, he continue with Respiratory difficulty and harsh bilateral lung sounds, but no wheezing or crackles, continue with swollen legs bilateral but increased on the left, not yet clear for discharge by customer resolution specialist, he will need to go to Rehab facility at discharge due to deconditioning, difficult to walk and keep orthostatic position, needs assist for standing and transfer to the chair, continued on diuresis. no nausea, vomit or diarrhea Objective Vital Signs Date Time Temp Pulse Resp B/P Pulse Ox O2 Delivery O2 Flow Rate FiO2 07/07/16 00:00 98.8 65 18 95/50 99 07/06/16 20:00 99.2 63 18 105/55 100 07/06/16 16:00 98.9 63 20 103/56 98 07/06/16 12:00 98.1 62 20 95/55 97 I/O 07/06/16 07/06/16 07/06/16 07/07/16 07/07/16 07/07/16 07:00 15:00 23:00 07:00 15:00 23:00 Intake Total 250 ml 240 ml 120 ml 218 ml Output Total 250 ml 125 ml 0 ml 200 ml Balance 0 ml 115 ml 120 ml 18 ml Intake Oral 200 ml 240 ml 120 ml 120 ml IV Total 50 ml 98 ml Output Urine Total 250 ml 125 ml 0 ml 200 ml Stool Total 0 ml # Bowel Movements 0 Result Diagram: 5/17/17 0329 07/05/16 0455 Imaging Last Impressions Thoracentesis Ultrasound 07/05/16 0600 Signed Impressions: Service Date/Time: June 10:34 - CONCLUSION: Uncomplicated ultrasound guided thoracentesis. Edgar Rice MD Chest X-Ray 07/05/16 0000 Signed Impressions: Service Date/Time: June 11:27 - CONCLUSION: Bilateral pleural effusions left greater than right. No visible pneumothorax Kumar Rodriguez MD Chest CT 07/02/16 0000 Signed Impressions: Service Date/Time: Saturday, July 02, 2016 23:35 - CONCLUSION: 1. Moderate sized bilateral pleural effusions with dense consolidation in both posterior lower lobes. 2. Right upper lobe bronchiectasis with 4 cm mass like area in the right upper lobe. 3. Cardiomegaly with small pericardial effusion. 4. Cirrhotic liver. 5. Mild splenomegaly with multiple varices in the upper left abdomen. Carlos Watts MD Upper Extremity Ultrasound 06/25/16 0000 Signed Impressions: Service Date/Time: Saturday, June 25, 2016 12:29 - CONCLUSION: 1. Occlusive thrombus in the left cephalic vein. 2. No deep venous thrombosis from the right arm.. Pepito Kulkarni MD Renal Ultrasound 06/25/16 0000 Signed Impressions: Service Date/Time: Saturday, June 25, 2016 22:41 - CONCLUSION: 1. Unremarkable kidneys. 2. Small volume ascites. 3. Bilateral pleural effusions. 4. Splenomegaly. Carroll Joel Jr., MD Lung Scan-V Nuclear Medicine 06/25/16 0000 Signed Impressions: Service Date/Time: Saturday, June 25, 2016 08:33 - CONCLUSION: Low probability for pulmonary embolism. Moderate ventilatory defect. Alexy Padron MD FACR Head CT 06/25/16 0000 Signed Impressions: Service Date/Time: Saturday, June 25, 2016 04:22 - CONCLUSION: 1. Atrophy. 2. No acute intracranial abnormality. Carroll Joel Jr., MD Procedures Endotracheal intubation and Extubation Vasopressor use. Right and Left Thoracentesis. fiber optic Laryngoscopy Other Results Laboratory Tests Test 07/03/16 07/04/16 07/05/16 15:15 03:29 04:55 Pleural Fluid pH 8.0 Pleural Fluid WBC 238 /MM3 Pleural Fluid RBC 147 /MM3 Pleural Fluid Neutrophils 24 % Pleural Fluid Lymphocytes 61 % Pleural Fluid Monocytes 7 % Pleural Fluid Eosinophils 1 % Pleural Fluid Histiocytes 7 % Pleural Fluid Total Protein 2.0 GM/DL Pleural Fluid LDH 121 U/L Pleural Fluid Glucose 161 MG/DL Pleural Fluid Amylase 9 U/L White Blood Count 4.8 TH/MM3 Red Blood Count 2.59 MIL/MM3 Hemoglobin 8.6 GM/DL Hematocrit 25.6 % Mean Corpuscular Volume 99.2 FL Mean Corpuscular Hemoglobin 33.4 PG Mean Corpuscular Hemoglobin 33.7 % Concent Red Cell Distribution Width 17.7 % Platelet Count 79 TH/MM3 Mean Platelet Volume 7.9 FL Neutrophils (%) (Auto) 71.5 % Lymphocytes (%) (Auto) 14.0 % Monocytes (%) (Auto) 10.4 % Eosinophils (%) (Auto) 3.4 % Basophils (%) (Auto) 0.7 % Neutrophils # (Auto) 3.5 TH/MM3 Lymphocytes # (Auto) 0.7 TH/MM3 Monocytes # (Auto) 0.5 TH/MM3 Eosinophils # (Auto) 0.2 TH/MM3 Basophils # (Auto) 0.0 TH/MM3 CBC Comment AUTO DIFF Differential Comment AUTO DIFF CONFIRMED Platelet Estimate LOW Platelet Morphology Comment NORMAL Sodium Level 138 MEQ/L Potassium Level 3.9 MEQ/L Chloride Level 96 MEQ/L Carbon Dioxide Level 36.0 MEQ/L Anion Gap 6 MEQ/L Blood Urea Nitrogen 19 MG/DL Creatinine 1.67 MG/DL Estimat Glomerular Filtration 41 ML/MIN Rate Random Glucose 99 MG/DL Calcium Level 7.7 MG/DL Objective Remarks GENERAL: No acute distress SKIN: Warm and dry. No rash HEAD: Normocephalic. EYES: No scleral icterus. No injection or drainage. NECK: Supple, trachea midline. No JVD or lymphadenopathy. Dysphonia. CARDIOVASCULAR: Regular rate and rhythm . S1, S2 no S4. Without murmurs, gallops, or rubs. RESPIRATORY: decreased breath sounds bilateral, no wheezing or crackles. Harsh sounds. GASTROINTESTINAL: Abdomen soft, non-tender, nondistended. MUSCULOSKELETAL: bilateral swollen legs more on the left leg. 2+ Neuro: Cranial nerve II through XII grossly intact. Strength equal/symmetric bilaterally. Normal sensation Medications and IVs Current Medications Medications (Trade) Dose Ordered Sig/Irene Route Start Time Stop Time Status Last Admin (NS Flush) 2 ml UNSCH PRN IVF 06/25/16 03:30 07/06/16 22:43 (NS Flush) 2 ml UNSCH PRN IVF 06/25/16 03:30 (Brethine Inj) 1 mg UNSCH PRN SQ 06/25/16 06:15 Miscellaneous Information 1 Q361D XX 06/25/16 10:45 06/25/16 10:45 (Chlorhexidine 2% Cloth) Taper DAILY@04 TOP 06/26/16 04:00 06/22/17 03:59 07/04/16 04:00 (Chlorhexidine 2% Cloth) 3 pack UNSCH PRN TOP 06/25/16 10:45 (D50w (Vial) Inj) 25 ml UNSCH PRN IV PUSH 06/25/16 10:45 (Glucagon Inj) 1 mg UNSCH PRN OTHER 06/25/16 10:45 (Aspirin Chew) 81 mg DAILY CHEW 06/25/16 14:00 07/06/16 08:49 (Vitamin B1) 100 mg DAILY PO 06/25/16 15:00 07/06/16 09:00 (Symbicort 80-4.5 Mcg Inh) 2 puff Q12HR INH 06/26/16 23:00 07/06/16 22:38 (Tums Chew) 500 mg BID CHEW 06/27/16 09:00 07/06/16 22:34 (Lactinex) 1 tab TIDAC PO 06/27/16 12:00 07/06/16 17:25 (Lactulose Liq) 30 ml BID PO 06/27/16 09:00 07/05/16 21:28 (Mycostatin Powder) 1 applic Q12HR TOPICAL 06/27/16 09:00 07/06/16 21:00 (Cordarone) 200 mg DAILY PO 06/28/16 09:00 07/06/16 08:49 (Protonix Inj) 40 mg BID IV PUSH 06/27/16 21:00 07/06/16 22:37 (Folate) 1 mg DAILY PO 06/28/16 09:00 07/06/16 08:49 (Theragran) 1 tab DAILY PO 06/28/16 09:00 07/06/16 08:48 (Roxicodone) 5 mg Q6H PRN PO 06/27/16 09:30 07/06/16 12:30 (Drisdol) 50,000 units Q7D PO 06/27/16 20:00 07/04/16 20:34 Carvedilol 3.125 mg 3.125 mg Q12HR PO 06/28/16 09:00 07/06/16 08:49 (Zosyn 3.375 Gm Premix) 50 ml @ 100 mls/hr Q6H IV 06/29/16 15:00 07/07/16 03:28 (Mag-Ox) 400 mg Q12HR PO 06/30/16 21:00 07/06/16 21:00 (NovoLIN R INJ) 5 units TIDAC SQ 07/01/16 08:00 07/06/16 17:27 (Levemir Inj) 10 units HS SQ 07/02/16 21:00 07/06/16 22:57 (Bumetanide) 1 mg DAILY PO 07/05/16 09:00 07/06/16 08:48 A/P Assessment and Plan 1. EtOH/History of hepatic Encephalopathy, to continue lactulose 30 ml BID, Oxycodone for pain management, Thiamine 2. CHF chronic Systolic/pericardial Effusion/Atrial Fibrillation Echocardiogram 06/25 EF 35-40%, No regional wall motion abnormality, non candidate for left heart catheterization, Coreg 3.125 mg BID, aspirin 81 mg daily, Amiodarone 400 mg BID, decreased to 200 mg daily, no signs of tamponade Improving clinically. new CXR opacities and moderate pleural effusions, customer resolution specialist following, the patient had Right thoracentesis and now status post Left thoracentesis. 3. Acute Hypoxemic respiratory failure/CHF exacerbation and Infectious etiology , Bronchial Asthma, Bilateral Pleural effusions Bronchodilator, Mucolytic and incentive spirometry. V/Q scan low probability for Pulmonary embolism. had bilateral Thoracentesis. continue with Oxygen and harsh bilateral sounds, but improving clinically. not yet clear for discharge by customer resolution specialist. recommended to continue Zosyn. 4. 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 Protonix 40 mg BID, Lactulose 30 ml BID, Ammonia level 40. 5. BPH by history no signs or Urinary retention 6. DM II, elevated parathyroid hormone/Low Vitamin D 25. Uncontrolled, on Levemir, sliding scale, scheduled regular insulin with meals. stable continue present care, he is eating better. but continue with controlled blood sugars in am. will continue present care. 7. Acute Renal Injury. Nephrology specialist Following, Bumex 1 mg daily, Renal US no Hydronephrosis, 8. Left Cephalic vein thrombosis/Thrombocytopenia Stable. 9. recently treated Left knee osteomyelitis Vancomycin and Diflucan, CAP on Zosyn blood cultures No Growth. Not improving in imaging studies, improving clinically will get CT chest without contrast and follow manpower development specialist recommendations. continue present antibiotics by customer resolution specialist. 10. Dysphonia status post Fiber Optic Laryngoscopy and seen by ENT found some inflammatory changes, he states he will Improve once he is stronger on his ventilatory capacity and edema improves. PT evaluate and treat recommended to go to SNF. Prophylaxis - GI - Protonix - DVT - SCD/pharmacological prophylaxis held due to GI bleed Discharge Planning awaiting final recommendations by customer resolution specialist for discharge. Murphy Cedeno MD July 07, 2016 08:27 Murphy Cedeno MD July 07, 2016 08:27
[2016-07-07] MEDS: FOLIC ACID 1 MG TAB PO SCH (08:35)
[2016-07-07] MEDS: LACTOBACILLUS ACIDOPHILUS TAB PO SCH ×3 (08:35→17:00)
[2016-07-07] MEDS: THIAMINE HCL 100 MG TAB PO SCH (08:35)
[2016-07-07] MEDS: MAGNESIUM OXIDE 400 MG TAB PO SCH ×2 (08:35→21:48)
[2016-07-07] MEDS: MULTIVITAMIN TAB PO SCH (08:35)
[2016-07-07] MEDS: BUMETANIDE 1 MG TAB PO SCH (08:35)
[2016-07-07] MEDS: ASPIRIN 81 MG CHEW TAB CHEW SCH (08:35)
[2016-07-07] MEDS: LACTULOSE SYRUP 20 GM/30 ML CUP PO SCH ×2 (08:35→21:00)
[2016-07-07] MEDS: CARVEDILOL 3.125 MG TAB PO SCH ×2 (08:35→21:49)
[2016-07-07] MEDS: AMIODARONE 200 MG TAB PO SCH (08:35)
[2016-07-07] MEDS: CALCIUM CARBONATE 500 MG CHEWABLE TAB CHEW SCH ×2 (08:35→21:49)
[2016-07-07] MEDS: PANTOPRAZOLE SODIUM 40 MG VIAL IV PUSH SCH ×2 (08:36→21:50)
[2016-07-07] MEDS: BUDESONIDE-FORMOTEROL 80/4.5 MCG INHALER INH SCH ×2 (08:36→22:37)
[2016-07-07] MEDS: NYSTATIN 100,000 U/GM PWD 15 GM BTL TOPICAL SCH ×2 (08:37→21:58)
[2016-07-07] MEDS: INSULIN HUMAN REGULAR 1,000 UNITS/10 ML VIAL SQ SCH ×3 (08:47→18:13)
[2016-07-07 12:00] VITALS: BP 91/53; PULSE 62; RESP 18; TEMP 96.9; O2SAT 98
[2016-07-07] MEDS ORDERED: INSULIN DETEMIR 100 UNITS/ML VIAL SQ ONE (14:00)
[2016-07-07 16:00] VITALS: BP 102/54; PULSE 64; RESP 16; TEMP 97.1; O2SAT 98
[2016-07-07 20:00] VITALS: BP 113/56; PULSE 64; RESP 20; TEMP 98.2; O2SAT 98
[2016-07-07] MEDS ORDERED: INSULIN DETEMIR 100 UNITS/ML VIAL SQ SCH (21:00)
[2016-07-07 23:47] VITALS: BP 129/56; PULSE 70; RESP 32; TEMP 97.6; O2SAT 87; O2SAT 94
[2016-07-07] MEDS: RESP: ALBUTEROL 2.5 MG/3 ML NEB (PRN) NEB (23:58)
[2016-07-08] VITALS (23 sets, daily range): BP systolic 86–135; BP diastolic 47–71; PULSE 55–124; RESP 18–26; TEMP 97.5–101.1; O2SAT 96–100
[2016-07-08] MEDS ORDERED: LORazepam 2 MG/ML VIAL ONE (00:08)
[2016-07-08] MEDS ORDERED: FUROSEMIDE 40 MG/4 ML VIAL IV PUSH ONE (00:15)
[2016-07-08] MEDS ORDERED: LORazepam 2 MG/ML VIAL IV PUSH ONE (00:15)
--- NOTE | 2016-07-08 00:18 | HHI.PR ---
Addendum to Inpatient Note Addendum Reason: Additional Documentation Additional Information DAVID NOTE Residents responded to David called for [facility] patient due to AMS and hypoxia to 87% on room air at approx 07/07 at 2350. He was placed on non-rebreather and then back to simple mask once sat was noted to by 99%. He remained non- responsive to questions, though eyes were open, and patient was noted to have seizure-like activity. Blood sugar was checked at bedside and noted to be 30 at 0024, then 24 at 0026. At time of first blood sugar, 1 amp of D5W was ordered and given, with repeat BSG 243 at 0030. Another BSG at 0040 was 138, signifying continuing decline in blood sugar of unknown etiology. Working diagnosis at this time was hypoglycemic seizure. On exam, patient's eyes were open but he was non-responsive. Skin cool and dry. He was having moderate labored breathing initially which worsened. He had diffuse rhonchi, symmetric and 1+ edema to mid-perry. Quick review of EMR showed labs were most recently drawn on 07/05, notable then for persistent CKD. He is s/p bilateral thoracenteses on 07/05. He was previously intubated (this hospital stay) and required pressors. A number of lab studies including ABG, CBC, CMP, cardiac enzymes, EKG and CXR were ordered, in addition to 2mg Ativan and 40mg Lasix. CT head without contrast also ordered but given respiratory status this was delayed. On history, patient has multiple medical problems but had been alert and oriented this evening. He has DM and received routine doses of Levemir, Novolin (TIDAC) and supplemental scale insulin. He had eaten all of his dinner per report. Of note, he received 10U Novolin at 2157, Levemir 15U at 2155, and Novolin (scheduled with meals) 8U at 1813. His insulin regimen was adjusted most recently (increased) at 9pm on 07/07/16. Dr. Romero (Critical Care) was called due to declining respiratory status of patient, then noted to have abdominal breathing and further decreased level of consciousness. ABG report returned showing severe CO2 retention. Decision was made to transfer patient to [facility] for further evaluation and probable intubation. Upon transfer, decision was made to intubate patient due to decreased level of consciousness and inability to protect airway. Please refer to procedure note for intubation. At this point, both the primary team and critical care physician were directly involved in continued care for the patient. Seen and discussed with Dr. Romero, Angy Pringle MD R1 July 08, 2016 00:18
[2016-07-08] MEDS ORDERED: DEXTROSE 50% IN WATER 50 ML VIAL(D50) IV PRN ×2 (00:30→16:45)
[2016-07-08] MEDS ORDERED: GLUCAGON 1 MG/ML VIAL IM PRN (00:30)
[2016-07-08 00:33] LABS: BLOOD GAS BASE EXCESS 9.3 mmol/L (-2-2); BLOOD GAS CARBOXYHEMOGLOBIN 1.4 % (0-4); BLOOD GAS HCO3 36 mmol/L (22-26); BLOOD GAS METHEMOGLOBIN 0.9 % (0-2); BLOOD GAS O2 HGB SATURATION 93 % (90-100); BLOOD GAS OXYGEN CONTENT 12.4 Vol % (12.0-20.0); BLOOD GAS PCO2 74 mmHg (38-42); BLOOD GAS PO2 83 mmHg (61-120); BLOOD GAS TOTAL HGB 9.4 G/DL (12.0-16.0); TEMP CORR TO 98.6
[2016-07-08 00:34] LABS: CRITICAL VALUE YES; DRAW SITE RT RADIAL; FIO2 100 %; LITER FLOW 15 L/M; NUMBER OF ARTERIAL PUNCTURES 1; OXYGEN DEVICE NRB; STAT YES; ULNAR PULSE PRESENT
[2016-07-08 00:53] LABS: AUTOMATED NEUTROPHIL # 6.7 TH/MM3 (1.8-7.7); BASOPHIL % 0.5 % (0.0-2.0); EOSINOPHIL # 0.4 TH/MM3 (0-0.4); EOSINOPHIL % 4.6 % (0.0-4.0); HEMATOCRIT 23.7 % (39.0-51.0); HEMO FLAGS DIFF FINAL; LYMPH % 9.9 % (9.0-44.0); LYMPHOCYTE # 0.9 TH/MM3 (1.0-4.8); MEAN CELL VOLUME 89.3 FL (80.0-100.0); MEAN CORPUSCULAR HEMOGLOBIN 29.9 PG (27.0-34.0); MEAN CORPUSCULAR HGB CONC 33.5 % (32.0-36.0); MONO % 8.4 % (0.0-8.0); NEUT % 76.6 % (16.0-70.0); PLATELET COUNT 145 TH/MM3 (150-450); RED BLOOD COUNT 2.66 MIL/MM3 (4.50-5.90); RED CELL DISTRIBUTION WIDTH 17.6 % (11.6-17.2); WHITE BLOOD COUNT 8.7 TH/MM3 (4.0-11.0)
[2016-07-08] MEDS ORDERED: ETOMIDATE 20 MG/10 ML VIAL ONE (01:00)
--- NOTE | 2016-07-08 01:22 | RADRPT ---
EXAM DATE/TIME: 07/08/2016 00:26 [facility] COMPARISON: CHEST EXPIRATION ONLY, July 05, 2016, 11:27. INDICATIONS : Shortness of breath. MEDICAL HISTORY : Diabetes mellitus type II. Renal insufficiency. SURGICAL HISTORY : None. ENCOUNTER: Subsequent ACUITY: 2 weeks PAIN SCORE: Non-responsive. LOCATION: Bilateral chest FINDINGS: A single view of the chest demonstrates bilateral pleural effusions and basilar airspace disease. No pneumothorax. Effusions slightly increased from July 05 examination. Heart size stable. CONCLUSION: 1. Bilateral effusions, probably slightly increased from July 05 examination. Basilar airspace disease also slightly increased. Randy Byrne MD on July 08, 2016 at 1:19 Board Certified Radiologist. This report was verified electronically.
--- NOTE | 2016-07-08 01:22 | PD.PROCEDR ---
Procedure Note Procedure Endotracheal Intubation Date: 07/08/2016 Time: 0120 Indication: Respiratory Distress, Inability to Protect Airway Resident: Angy Flood Attending: Jesus Romero A time-out was completed verifying correct patient, procedure, site, positioning , and special equipment. The patient was placed in a flat position. Induction using Etomidate 20mg. The patient was easily ventilated using an ambu bag. The [employer]MAC 3 BLADE was used and inserted into the oropharynx at which time there was a Grade 1 view of the vocal cords. A 7.5-comoran endotracheal tube was inserted and visualized going through the vocal cords. The stylette was removed. Colorimetric change was visualized on the CO2 meter. Breath sounds were heard in both lung bailey equally. The endotracheal tube was placed at 22 cm, measured at the teeth. Dr. Romero and Dr. Angy Flood was present for the entire procedure. A chest x-ray was ordered to assess for pneumothorax and verify endotracheal tube placement. Angy Flood MD R1 July 08, 2016 01:22 The patient tolerated the procedure well and there were no complications. Angy Flood MD R1 July 08, 2016 01:22
[2016-07-08 01:24] LABS: ALT (GPT) 15 U/L (12-78); ANION GAP 6 MEQ/L (5-15); AST (GOT) 26 U/L (15-37); BICARBONATE 35.9 MEQ/L (21.0-32.0); BLOOD UREA NITROGEN 26 MG/DL (7-18); CHLORIDE 92 MEQ/L (98-107); GLOMERULAR FILTRATION RATE 29 ML/MIN (>89); POTASSIUM 3.7 MEQ/L (3.5-5.1); SODIUM (NA) 134 MEQ/L (136-145)
[2016-07-08 01:28] LABS: ALKALINE PHOSPHATASE 85 U/L (45-117); TOTAL BILIRUBIN ADULT 0.5 MG/DL (0.2-1.0)
[2016-07-08] MEDS ORDERED: NOREPINEPHRINE-DEXTROSE DRIP 250 ML IV ONE (01:28)
[2016-07-08] MEDS ORDERED: SODIUM CHLOR 0.9% 1000 ML INJ 1,000 ML IV ONE (01:30)
[2016-07-08] MEDS: ALBUMIN HUMAN 5% 25 GM/500 ML BOTTLE IV SCH ×2 (02:00→13:18)
[2016-07-08 02:11] LABS: BLOOD GAS BASE EXCESS 6.9 mmol/L (-2-2); BLOOD GAS CARBOXYHEMOGLOBIN 1.4 % (0-4); BLOOD GAS HCO3 31 mmol/L (22-26); BLOOD GAS O2 HGB SATURATION 99 % (90-100); BLOOD GAS PCO2 47 mmHg (38-42); BLOOD GAS PO2 176 mmHG (61-120); BLOOD GAS TOTAL HGB 6.9 G/DL (12.0-16.0); CRITICAL VALUE YES; OXYGEN DEVICE VENTILATOR; TEMP CORR TO 98.6
--- NOTE | 2016-07-08 02:11 | HHI.CCPN ---
Subjective Remarks/Hospital Course The patient is a 66-year-old male with a past medical history of diabetes mellitus, bronchial asthma, ETOH use, cirrhosis of the liver, who presented to [facility] ED from a nursing facility for shortness of breath. The patient was recently hospitalized in the end of April, for GI bleed secondary to large duodenal ulcer. In addition he underwent arteriogram and embolization of the right gastric and GDA on May 18. He required multiple blood transfusions, intubation and mechanical ventilation. In addition, the patient had two endoscopies. On arrival to the ED the patient was hypotensive with blood pressure 94/50 and his laboratory data showed mild acute kidney injury with a BUN of 21, creatinine 1.86, lactic acidosis with lactic acid level 3.6 and elevated BNP at 427. In addition, he was found to have elevated D -dimer at 12.28. CT scan of the brain was obtained which showed no atrophy, otherwise no acute intracranial abnormalities. A VQ scan was obtained as well in the ER which showed low probability for pulmonary embolism. His initial chest x-ray from early this morning showed bilateral pleural effusions and patchy bilateral pulmonary infiltrates. Central line was placed by ED physician and a repeat chest x-ray showed right IJ central line in good position , bilateral effusions with bilateral parenchymal densities, right greater than the left. In the ER he was given 2 liters of crystalloids in addition to vancomycin, Zosyn, Solu-Medrol, bronchodilator and Bumex. He was hypotensive in the ER and the patient was placed on Levophed which is currently at three mics. Due to his respiratory distress, the patient was intubated and placed on full mechanical ventilation. When seen he is on Diprivan infusion for sedation. However, the patient is awake, alert and follows commands. ABG post intubation showed a pH of 7.35, CO2 48, pAO2 325, bicarb 26, saturation of 98%. 06/26: Patient is sedated with Diprivan. Afebrile. Off Levophed. 06/27: Extubated 06/26. Of all vasopressors. Currently on nasal cannula. Tolerating diet. Subjective 06/28: Currently complaining of chest discomfort/pleuritic with breathing and shortness of breath. On 4 L nasal cannula. Complaining of difficulty with swallowing. No bowel movement. Up in chair 4 hours yesterday. 07/08 shortly after midnight rapid response team was called for the patient's seizure-like activity. He received Ativan however shortly after injection he became unresponsive retaining CO2 at 70s. 7.3 and he required endotracheal intubation for airway protection. After intubation patient became hypotensive requiring low dose of Levophed to keep his map above 65 and central line was placed. Objective Vital Signs Date Time Temp Pulse Resp B/P Pulse Ox O2 Delivery O2 Flow Rate FiO2 07/08/16 01:15 100 60 07/07/16 23:47 15.00 07/07/16 23:47 97.6 70 32 129/56 07/07/16 21:43 Nasal Cannula Humidified Intake and Output 07/07/16 07/07/16 07/08/16 08:00 16:00 00:00 Intake Total 218 ml 580 ml 120 ml Output Total 200 ml 0 ml 0 ml Balance 18 ml 580 ml 120 ml Result Diagram: 07/08/16 0035 07/08/16 0035 Other Results Laboratory Tests Test 07/08/16 00:25 Blood Gas Puncture Site RT RADIAL Blood Gas Patient Temperature 98.6 Blood Gas HCO3 36 mmol/L (22-26) Blood Gas Base Excess 9.3 mmol/L (-2-2) Blood Gas Oxygen Saturation 93 % (90-100) Arterial Blood pH 7.30 (7.380-7.420) Arterial Blood Partial 74 mmHg (38-42) Pressure CO2 Arterial Blood Partial 83 mmHg Pressure O2 (61-120) Arterial Blood Oxygen Content 12.4 Vol % (12.0-20.0) Arterial Blood 1.4 % (0-4) Carboxyhemoglobin Arterial Blood Methemoglobin 0.9 % (0-2) Blood Gas Hemoglobin 9.4 G/DL (12.0-16.0) Oxygen Delivery Device NRB Blood Gas Liter Flow 15 L/M Blood Gas Inspired Oxygen 100 % Imaging Last Impressions Chest X-Ray 06/28/16 0600 Signed Impressions: Service Date/Time: June 03:31 - CONCLUSION: Unchanged effusions and bibasilar infiltrates/atelectasis. Carroll Joel Jr., MD Upper Extremity Ultrasound 06/25/16 0000 Signed Impressions: Service Date/Time: Saturday, June 25, 2016 12:29 - CONCLUSION: 1. Occlusive thrombus in the left cephalic vein. 2. No deep venous thrombosis from the right arm.. Pepito Kulkarni MD Renal Ultrasound 06/25/16 Signed Impressions: Service Date/Time: Saturday, June 25, 2016 22:41 - CONCLUSION: 1. Unremarkable kidneys. 2. Small volume ascites. 3. Bilateral pleural effusions. 4. Splenomegaly. Carroll Joel Jr., MD Lung Scan-VQ Nuclear Medicine 06/25/16 Signed Impressions: Service Date/Time: Saturday, June 25, 2016 08:33 - CONCLUSION: Low probability for pulmonary embolism. Moderate ventilatory defect. Alexy Padron MD FACR Head CT 06/25/16 Signed Impressions: Service Date/Time: Saturday, June 25, 2016 04:22 - CONCLUSION: 1. Atrophy. 2. No acute intracranial abnormality. Carroll Joel Jr., MD Objective Remarks GENERAL: Patient is 66 yo male, currently resting in bed in no acute distress SKIN: Warm and dry. No rash HEAD: Normocephalic. EYES: No scleral icterus. No injection or drainage. NECK: Supple, trachea midline. No JVD or lymphadenopathy. Orally intubated CARDIOVASCULAR: Regular rate and rhythm . S1, S2 no S4. Without murmurs, gallops, or rubs. RESPIRATORY: Coarse crackles appreciated throughout lung bailey. No wheezing. Breath sounds equal bilaterally. No accessory muscle use. GASTROINTESTINAL: Abdomen soft, non-tender, nondistended. MUSCULOSKELETAL: No significant peripheral edema Neuro: Cranial nerve II through XII grossly intact. Strength equal/symmetric bilaterally. Normal sensation A/P Assessment and Plan Neuro/Psych: ETOH History of hepatic encephalopathy Hold Oxycodone for pain management Seizure precautions CT head to rule out secondary lesions at the patient with known lung mass Fentanyl and Versed drip for sedation CV: Congestive heart failure - chronic systolic Pericardial effusion Atrial fibrillation Echocardiogram 06/25 revealed ejection fraction 35-40%. No regional wall motion abnormality. ROLANDO [address] Byrne. Not a candidate for left heart catheter/PCI. Recommended Coreg 3.125 twice a day, aspirin 81 mg daily/medical management On amiodarone 200 mg daily Pericardial effusion without tamponade features Hypertension possibly due to over diuresis Hold diuretics IV fluids and albumin Levophed to keep map above 65 Resp: Chronic 02 - 1.5 liters Acute hypoxemic respiratory failure. Congestive heart failure/infectious etiology Bronchial asthma Bilateral pleural effusions likely transmitted Intubated for an airway protection Repeat ABG and CXR a.m. Bronchodilator therapy every 4 hours and as needed VQ scan admission low probability for pulmonary embolism GI: History of celiac artery embolization left PT secondary to duodenal ulcer 06/04 Gastroesophageal reflux disease Liver cirrhosis with varices Hemoglobin remained stable. Continue Protonix 40 mg by mouth twice a day : BPH Donaldson catheter while on diuretics for accurate I's and O's in a critically ill patient Endo: Diabetes mellitus Elevated intact parathyroid hormone Low vitamin D 25 Patient severely hypoglycemic and 30s today Without Lantus and start NG tube feeds Continue low-dose sliding scale with Accu-Cheks Renal: Acute on chronic kidney injury Followed by nephrology. Baseline creatinine 1.7. Currently Bumex 1 mg by mouth twice a day. Avoid nephrotoxic drugs Accurate I's and O's Follow-up BMP in a.m. Renal ultrasound revealed no hydronephrosis. Heme: Leukocytosis Normocytic anemia Left cephalic vein thrombosis Thrombocytopenia Severe anemia Transfuse 2 units of PRBCs Monitor CBC daily Monitor trends ID: Recently treated left knee osteomyelitis completed therapy vancomycin/Diflucan Community-acquired pneumonia Currently on Zosyn day #4 Pertinent cultures Blood cultures 2 - 06/25 - no growth MSK: PT evaluate and treat FEN: Replace electrolytes as clinically indicated Access - Right subclavian placed 07/08 Prophylaxis - GI - Protonix - DVT - SCD/pharmacological prophylaxis held due to GI bleed Critical Care: The total care time was 35 minutes. Time to perform other separately billable procedures was not included in the critical care time. Jesus Romero MD July 08, 2016 02:11
--- NOTE | 2016-07-08 02:11 | PD.PROCEDR ---
Procedure Note Procedure A time-out was completed verifying correct patient, procedure, site, positioning , and special equipment if applicable. The patient was placed in a dependent position appropriate for central line placement based on the vein to be cannulated. The patients right shoulder was prepped and draped in sterile fashion. 1% Lidocaine was used to anesthetize the surrounding skin area. A triple lumen 9-[place] Cordis catheter was introduced into the the right subclavian vein using the Seldinger technique. The catheter was threaded smoothly over the guide wire and appropriate blood return was obtained. Each lumen of the catheter was evacuated of air and flushed with sterile saline. The catheter was then sutured in place to the skin and a sterile dressing applied. Perfusion to the extremity distal to the point of catheter insertion was checked and found to be adequate. Estimated Blood Loss: 1ml The patient tolerated the procedure well and there were no complications. Jesus Romero MD July 08, 2016 02:11
[2016-07-08 02:12] LABS: DRAW SITE RT RADIAL; FIO2 60 %; NUMBER OF ARTERIAL PUNCTURES 1; STAT NO; ULNAR PULSE PRESENT; VENT SETTINGS AC 18/550/5PEEP
[2016-07-08] MEDS ORDERED: EPINEPHrine HCL (1:10,000) 1 MG/10 ML SYRINGE ONE (02:12)
[2016-07-08] MEDS ORDERED: LIDOCAINE HCL 2% 100 MG/5 ML SYRINGE ONE (02:13)
[2016-07-08] MEDS ORDERED: ATROPINE SULFATE 1 MG/10 ML SYRINGE ONE (02:13)
--- NOTE | 2016-07-08 02:35 | RADRPT ---
EXAM DATE/TIME: 07/08/2016 02:22 [facility] COMPARISON: No previous studies available for comparison. INDICATIONS : Altered mental status. RADIATION DOSE: 56.35 CTDIvol (mGy) MEDICAL HISTORY : Diabetes mellitus type 2. Renal failure. SURGICAL HISTORY : None. ENCOUNTER: Initial ACUITY: 1 day PAIN SCALE: Non-responsive LOCATION: cranial TECHNIQUE: Multiple contiguous axial images were obtained of the head. Using automated exposure control and adj ustment of the mA and/or kV according to patient size, radiation dose was kept as low as reasonably a chievable to obtain optimal diagnostic quality images. FINDINGS: CEREBRUM: The ventricles are normal for age. No evidence of midline shift, mass lesion, hemorrhage or acute in farction. No extra-axial fluid collections are seen. POSTERIOR FOSSA: The cerebellum and brainstem are intact. The 4th ventricle is midline. The cerebellopontine angle i s unremarkable. EXTRACRANIAL: The visualized portion of the orbits is intact. SKULL: The calvaria is intact. No evidence of skull fracture. CONCLUSION: 1. No acute findings. Mild atrophy. Randy Byrne MD on July 08, 2016 at 2:31 Board Certified Radiologist. This report was verified electronically.
--- NOTE | 2016-07-08 02:38 | RADRPT ---
EXAM DATE/TIME: 07/08/2016 02:03 [facility] COMPARISON: CHEST SINGLE AP, July 08, 2016, 0:26. INDICATIONS : E-T tube placement. MEDICAL HISTORY : Diabetes mellitus type II. Renal insufficiency. SURGICAL HISTORY : None. ENCOUNTER: Subsequent ACUITY: 2 weeks PAIN SCORE: Non-responsive. LOCATION: Bilateral chest FINDINGS: Since prior exam endotracheal tube has been placed in satisfactory position. NG tip is in the stomach . Right central line in superior vena cava. Bilateral effusions and basilar airspace disease similar to the earlier exam. CONCLUSION: 1. Placement of endotracheal tube, nasogastric tube and right central line in satisfactory position. No pneumothorax. Randy Byrne MD on July 08, 2016 at 2:36 Board Certified Radiologist. This report was verified electronically.
[2016-07-08] MEDS: PIPERACIL-TAZO 3.375 GM PREMIX 50 ML IV SCH ×4 (03:22→20:46)
[2016-07-08] MEDS: MIDAZOLAM 100 MG/ML INJ 100 ML IV SCH (03:37)
[2016-07-08] MEDS: fentaNYL DRIP 250 ML IV SCH (03:37)
[2016-07-08 06:08] LABS: BLOOD, URINE MOD (NEG); GLUCOSE,URINE NEG (NEG); KETONE, URINE NEG (NEG); MUCUS URINE FEW /lpf (OCC); NITRITE,URINE NEG (NEG); PH, URINE 5.5 (5.0-8.5); URINE COLOR YELLOW (YELLW/STRAW)
[2016-07-08 06:10] LABS: COMMENT (UR) CATH-CULT NOT IND; CULTURE IF INDICATED CATH CULTURE NOT IND
[2016-07-08] MEDS: INSULIN NovoLIN REGULAR SUPPLEMENTAL SCALE SQ SCH ×2 (07:00→11:00)
[2016-07-08] MEDS: INSULIN HUMAN REGULAR 1,000 UNITS/10 ML VIAL SQ SCH (08:00)
[2016-07-08 08:05] LABS: HEMATOCRIT 21.6 % (39.0-51.0); MEAN CELL VOLUME 88.9 FL (80.0-100.0); MEAN CORPUSCULAR HGB CONC 33.7 % (32.0-36.0); PLATELET COUNT 105 TH/MM3 (150-450); RED BLOOD COUNT 2.43 MIL/MM3 (4.50-5.90); RED CELL DISTRIBUTION WIDTH 17.2 % (11.6-17.2); REVIEW FLAG FINAL
[2016-07-08 08:22] LABS: BICARBONATE 31.6 MEQ/L (21.0-32.0); POTASSIUM 3.4 MEQ/L (3.5-5.1)
[2016-07-08] MEDS: MULTIVITAMIN TAB PO SCH (08:27)
[2016-07-08] MEDS: LACTOBACILLUS ACIDOPHILUS TAB PO SCH ×3 (08:27→16:31)
[2016-07-08] MEDS: FOLIC ACID 1 MG TAB PO SCH (08:27)
[2016-07-08] MEDS: THIAMINE HCL 100 MG TAB PO SCH (08:27)
[2016-07-08] MEDS: CALCIUM CARBONATE 500 MG CHEWABLE TAB CHEW SCH ×2 (08:27→20:46)
[2016-07-08] MEDS: LACTULOSE SYRUP 20 GM/30 ML CUP PO SCH ×2 (08:27→20:46)
[2016-07-08] MEDS: CARVEDILOL 3.125 MG TAB PO SCH ×2 (08:28→21:00)
[2016-07-08] MEDS: BUMETANIDE 1 MG TAB PO SCH (08:28)
[2016-07-08] MEDS: PANTOPRAZOLE SODIUM 40 MG VIAL IV PUSH SCH ×2 (08:28→20:46)
[2016-07-08] MEDS: AMIODARONE 200 MG TAB PO SCH (08:29)
[2016-07-08] MEDS: NYSTATIN 100,000 U/GM PWD 15 GM BTL TOPICAL SCH ×2 (08:31→20:47)
[2016-07-08] MEDS: BUDESONIDE-FORMOTEROL 80/4.5 MCG INHALER INH SCH ×2 (09:00→21:00)
[2016-07-08] MEDS: ASPIRIN 81 MG CHEW TAB CHEW SCH (09:00)
[2016-07-08] MEDS: MAGNESIUM OXIDE 400 MG TAB PO SCH ×2 (09:25→20:46)
[2016-07-08] MEDS ORDERED: TERBUTALINE INJ 1 MG/ML AMP SQ PRN (09:45)
[2016-07-08] MEDS ORDERED: SODIUM PHOSPHATE INJ 30 MMOL in SODIUM CHLOR 0.9% 250 ML INJ 240 ML IV PRN (09:45)
[2016-07-08] MEDS ORDERED: POTASSIUM CHLORIDE 25 MEQ EFFERVESCENT TAB PO PRN (09:45)
[2016-07-08] MEDS ORDERED: POTASSIUM PHOSPHATE MONOBASIC 500 MG TAB PO/TUBE PRN (09:45)
[2016-07-08] MEDS ORDERED: MAGNESIUM SULFATE INJ 4 GM in SODIUM CHLORIDE 0.9% INJ 92 ML IV PRN (09:45)
[2016-07-08] MEDS ORDERED: POTASSIUM CHLOR 20 MEQ PREMIX 100 ML IV PRN ×2 (09:45)
[2016-07-08] MEDS ORDERED: POTASSIUM PHOSPHATE MONOBASIC 500 MG TAB PO PRN (09:45)
[2016-07-08] MEDS ORDERED: POTASSIUM CHLOR 40 MEQ PREMIX 100 ML IV PRN ×2 (09:45)
[2016-07-08] MEDS ORDERED: MAGNESIUM SULFATE INJ 2 GM in SODIUM CHLORIDE 0.9% INJ 96 ML IV PRN (09:45)
[2016-07-08] MEDS ORDERED: MAGNESIUM OXIDE 400 MG TAB PO PRN (09:45)
[2016-07-08] MEDS: NOREPINEPHRINE-DEXTROSE DRIP 250 ML IV SCH ×2 (10:44→18:42)
[2016-07-08] MEDS ORDERED: SODIUM CHLOR 0.9% 250 ML INJ 250 ML IV ONE (11:00)
[2016-07-08] MEDS ORDERED: POTASSIUM CHLOR 40 MEQ PREMIX 100 ML IV ONE (12:15)
[2016-07-08] MEDS: INSULIN ASPART SUPPLEMENTAL SCALE SQ SCH ×3 (16:00→20:48)
[2016-07-08] MEDS ORDERED: POTASSIUM PHOSPHATE/SODIUM PHOSPHATE 250 MG TAB PO ONE (16:45)
[2016-07-08] MEDS ORDERED: GLUCAGON 1 MG/ML VIAL IM/SQ PRN (16:45)
[2016-07-08 19:43] LABS: HEMATOCRIT 23.8 % (39.0-51.0); REVIEW FLAG FINAL
[2016-07-09] VITALS (17 sets, daily range): BP systolic 91–116; BP diastolic 53–57; PULSE 55–63; RESP 18; TEMP 98.1–98.8; O2SAT 100
[2016-07-09] MEDS: ALBUMIN HUMAN 5% 25 GM/500 ML BOTTLE IV SCH ×2 (00:53→13:46)
[2016-07-09] MEDS: INSULIN ASPART SUPPLEMENTAL SCALE SQ SCH ×7 (00:54→23:47)
[2016-07-09] MEDS: PIPERACIL-TAZO 3.375 GM PREMIX 50 ML IV SCH ×4 (02:23→20:00)
[2016-07-09] MEDS: CHLORHEXIDINE GLUCONATE 2 % 1 PACK (2 CLOTHS) TOP SCH ×2 (02:23→02:24)
[2016-07-09 04:55] LABS: AUTOMATED NEUTROPHIL # 4.3 TH/MM3 (1.8-7.7); BASOPHIL % 0.7 % (0.0-2.0); EOSINOPHIL # 0.2 TH/MM3 (0-0.4); EOSINOPHIL % 3.4 % (0.0-4.0); HEMATOCRIT 22.2 % (39.0-51.0); LYMPHOCYTE # 0.8 TH/MM3 (1.0-4.8); MEAN CELL VOLUME 87.3 FL (80.0-100.0); MEAN CORPUSCULAR HEMOGLOBIN 30.5 PG (27.0-34.0); NEUT % 72.9 % (16.0-70.0); PLATELET COUNT 85 TH/MM3 (150-450); RED BLOOD COUNT 2.54 MIL/MM3 (4.50-5.90); RED CELL DISTRIBUTION WIDTH 17.4 % (11.6-17.2); WHITE BLOOD COUNT 5.9 TH/MM3 (4.0-11.0)
[2016-07-09 04:57] LABS: HEMO FLAGS AUTO DIFF
[2016-07-09 05:26] LABS: ALKALINE PHOSPHATASE 84 U/L (45-117); ALT (GPT) 15 U/L (12-78); ANION GAP 9 MEQ/L (5-15); AST (GOT) 20 U/L (15-37); BICARBONATE 29.8 MEQ/L (21.0-32.0); BLOOD UREA NITROGEN 25 MG/DL (7-18); CHLORIDE 94 MEQ/L (98-107); GLOMERULAR FILTRATION RATE 29 ML/MIN (>89); POTASSIUM 3.7 MEQ/L (3.5-5.1); SODIUM (NA) 133 MEQ/L (136-145); TOTAL BILIRUBIN ADULT 0.9 MG/DL (0.2-1.0)
[2016-07-09 05:43] LABS: OVALOCYTES 1+ (NORMAL); PLATELET ESTIMATE SMEAR LOW (NORMAL)
[2016-07-09 05:44] LABS: PLATELET MORPHOLOGY NORMAL (NORMAL); SCAN/DIFF AUTO DIFF CONFIRMED
[2016-07-09] MEDS: MIDAZOLAM 100 MG/ML INJ 100 ML IV SCH ×2 (05:58→20:18)
[2016-07-09] MEDS: BUDESONIDE-FORMOTEROL 80/4.5 MCG INHALER INH SCH ×2 (08:17→20:00)
[2016-07-09] MEDS: CARVEDILOL 3.125 MG TAB PO SCH ×2 (08:19→20:00)
[2016-07-09] MEDS: AMIODARONE 200 MG TAB PO SCH (08:19)
[2016-07-09] MEDS: LACTULOSE SYRUP 20 GM/30 ML CUP PO SCH ×2 (08:19→20:00)
[2016-07-09] MEDS: BUMETANIDE 1 MG TAB PO SCH (08:39)
[2016-07-09] MEDS: PANTOPRAZOLE SODIUM 40 MG VIAL IV PUSH SCH ×2 (08:40→20:00)
[2016-07-09] MEDS: MULTIVITAMIN TAB PO SCH (08:40)
[2016-07-09] MEDS: CALCIUM CARBONATE 500 MG CHEWABLE TAB CHEW SCH ×2 (08:40→19:59)
[2016-07-09] MEDS: LACTOBACILLUS ACIDOPHILUS TAB PO SCH ×3 (08:40→16:04)
[2016-07-09] MEDS: ASPIRIN 81 MG CHEW TAB CHEW SCH (08:41)
[2016-07-09] MEDS: FOLIC ACID 1 MG TAB PO SCH (08:41)
[2016-07-09] MEDS: NYSTATIN 100,000 U/GM PWD 15 GM BTL TOPICAL SCH ×2 (08:41→20:01)
[2016-07-09] MEDS: THIAMINE HCL 100 MG TAB PO SCH (08:42)
[2016-07-09] MEDS: MAGNESIUM OXIDE 400 MG TAB PO SCH ×2 (08:44→20:00)
[2016-07-09] MEDS ORDERED: SODIUM PHOSPHATE INJ 30 MMOL in SODIUM CHLOR 0.9% 250 ML INJ 250 ML IV ONE (13:00)
[2016-07-09] MEDS: fentaNYL DRIP 250 ML IV SCH (14:03)
--- NOTE | 2016-07-09 14:13 | PD.CONS ---
Consult Service Palliative Care . Consult Requested By Dr. Zachary Alvarez . Primary Care Physician Swapnil Griffith MD . Reason for Consultation a. To assist with evaluation and management of symptoms including: dyspnea , encephalopathy, pain b. To assist medical decision maker(s) with: better understanding of current medical conditions; weighing benefits/burdens of medical treatment options; making medical treatment decisions. HPI History of Present Illness This is the 3rd acute care hospitalization at [facility] since 05/14/16 for this 66 y/o male with known COPD, alcohol abuse, diabetes mellitus, hepatic cirrhosis, and duodenal ulcer with recent gastrointestinal bleed who was sent to the emergency department from his nursing facility on 10/04 after waking up very short of breath. Because of the severity of his dyspnea, he was unable to provide much history in the emergency department. It appeared his only complaint was that of shortness of breath. The patient became well known to the palliative care service during his hospital admission from 05/14/16 through 06/06/2016. He was visiting from [place] and presented to the health care system at that time primarily for knee pain. He was found to have GI bleeding from duodenal ulcers. He was also felt to be septic. He required intubation and mechanical ventilation and spent quite a number of days in the intensive care unit. He required embolization on 05/18/16 to stop the bleeding. He ultimately improved well enough to enter longterm. He returned to the hospital because of a hemoglobin level of 6.9 on 06/20/16. He was transfused. There seemed to be no additional bleeding. The patient was sent back to his nursing facility. As noted above, he returned to the emergency department for the shortness of breath on 06/25. In the emergency department initial vital signs showed temperature 98.4; pulse 85; respiratory rate 35; blood pressure 141/65; pulse oximetry 83% on a nonrebreather mask. Initial physical examination by the emergency room clinician noted the following: Patient was chronically ill-appearing with dry skin and tenting. There is 1+ bilateral pitting edema in the lower extremities. Patient was tachypneic and using accessory muscles. There were audible rales. The remainder of the physical exam was unremarkable. Initial diagnostic testing revealed the following * Urinalysis was remarkable for protein; small leukocyte esterase; 40 rbc's; 11 WBCs. * CBC showed a PBC 10.6; hemoglobin 10.7; platelet count 150 * Coagulation profile showed PT 13.4; INR 1.2; PTT 25.9; d-dimer was 12.28 * Chemistry profile showed sodium 134; potassium 4.4; chloride 99; CO2 27.8; anion gap 7; BUN 21; creatinine 1.86; GFR 36; glucose 154; calcium 8.3 * Liver function tests showed bilirubin 1.0; AST 39; ALT 27; alkaline phosphatase 185; total protein 8.4; albumin 1.7 * Cardiac serology showed troponin at 0.08; B type natriuretic peptide was 427 * Chest x-ray showed bilateral pleural effusions and patchy bilateral pulmonary infiltrates. * CT of the head showed no acute changes. * Ventilation perfusion scan showed low probability for pulmonary embolus * EKG showed a new left bundle branch block As the patient remained hypoxemic in spite of a nonrebreather mask, he was intubated and placed on mechanical ventilation in the emergency room. He was given IV steroids and serial bronchodilator treatments. The patient became hypotensive in the emergency department. He was given 2 L of crystalloid. A central line was placed. Critical care was consulted , the patient was placed on pressors, and the patient was transferred to the intensive care unit. Cardiology was consulted because of the hypotension and the elevated troponin. Cardiology recommended medical management for coronary artery disease. They did not believe the patient was currently a candidate for interventional therapies. An echocardiogram showed an ejection fraction of 35-40%. A pericardial effusion was identified. There were no regional wall motion abnormalities. No significant valvular heart disease was noted. The patient was successfully extubated on 06/26/16. Cultures came back showing no growth. The patient's renal function declined and nephrology was consulted. On 07/08/16, shortly after midnight, the rapid response team was called because of seizure-like activity. Ativan was given but shortly thereafter he became unresponsive and was retaining CO2 into the 70s. Endotracheal intubation was initiated for airway protection. The patient became hypotensive following intubation requiring pressor support. At time of my visit, patient is sedated, orotracheally intubated, and minimally responsive in the SICU. No family at bedside. Nurses report that on less sedation he awakens to voice and can follow some simple commands. Nursing pain level scores have been "0" -- but patient is on fentanyl and midazolam. . Function/Cognitive Trajectory Family reports that the patient has been living independently at his home in [place] prior to May 2016, but his overall health had been declining. Friends and family had noted significant cognitive changes. 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 More recently, family gave him a simple household switch to replaced and he didn't seem to understand the tools or the switch itself. Friends and family also reported intermittent slurring of words. The patient drove himself from [place] to [place] on 04/20/16 but friends and family had urged him not to do this because of declining health. The patient is quite private regarding his own health care but family reported that it appeared he had lost significant weight over the last 2 years. . Review of Systems ROS Limitations: Clinical Condition (Patient is sedated, intubated, minimally responsive in the SICU. 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 mild dementia . Past Surgical History * Right great toe amputation due to osteomyelitis * Laparoscopic surgery on the right knee * Embolization for GI bleed . Reported Medications Prehospitalization medications at the nursing facility included the following: Tramadol (Tramadol HCl) 50 Mg Tab 50 Mg PO Q6H PRN Poly--Sarah/Iron (Pediatric Multiple Vitamins W/) 1 Frantz Frantz 1 Ml PO DAILY 30 Days Vitamin B-1 (Thiamine HCl) 100 Mg Tab 100 Mg PO DAILY Pantoprazole (Pantoprazole Sodium) 40 Mg Tab 40 Mg PO Q12HR 30 Days Nystop Topical (Nystatin Topical) 100,000 Unit/Gm Powd 1 Applic TOPICAL Q12HR 30 Days Lactulose Liq (Lactulose) 10 Gm/15 Ml Soln 30 Ml PO BID 30 Days Levemir Inj (Insulin Detemir) 1,000 unit/ 10 ML Vial 5 Units SQ Q12HR 30 Days Bumetanide 1 Mg Tab 1 Mg PO DAILY Symbicort Inh (Budesonide/Formoterol Fumarate) 80-4.5 Mcg/Act Aero 2 Puff INH BID 30 Days Amiodarone (Amiodarone HCl) 200 Mg Tab 400 Mg PO Q12H Albuterol Neb (Albuterol Sulfate) 2.5 Mg/3 Ml Neb 2.5 Mg NEB Q2HR NEB PRN 30 Days Acetaminophen 325 Mg Tab 650 Mg PO Q6HR PRN Vancomycin Inj (Vancomycin HCl) 1,000 Mg Inj 1,000 Mg IV DAILY Symbicort Inh (Budesonide/Formoterol Fumarate) 80-4.5 Mcg/Act Aero 2 Puff INH Q12HR Potassium Chloride ER (Potassium Chloride) 10 Meq Cap 10 Meq PO DAILY Humalog Inj (Insulin Human Lispro) 1,000 Unit/10 Ml Vial 1-9 Units SQ ACHS -- sliding scale Humalog Mix 50-50 Inj (Insulin Lispro Protamine-Lispro 50-50 Inj) 1,000 Unit/10 Ml Vial 3 Units SQ BIDAC Diflucan (Fluconazole) 100 Mg Tab 100 Mg PO DAILY Probiotic (Lactobacillus Acidophilus) 1 Cap Cap 1 Cap PO TIDAC Calcium Carbonate 500 Mg Chew 500 Mg CHEW BID Ventolin Hfa 18 GM Inh (Albuterol Sulfate) 90 Mcg/Act Aer 2 Puff INH Q4-6H PRN Magnesium Oxide 400 Mg Tab 400 Mg PO BID Aspirin Low Dose (Aspirin) 81 Mg Chew 81 Mg CHEW DAILY . Current Medications Medications (Trade) Dose Ordered Sig/Irene Route Start Time Stop Time Status Last Admin (NS Flush) 2 ml UNSCH PRN IVF 06/25/16 03:30 07/06/16 22:43 (NS Flush) 2 ml UNSCH PRN IVF 06/25/16 03:30 Miscellaneous Information 1 Q361D XX 06/25/16 10:45 06/25/16 10:45 (Chlorhexidine 2% Cloth) Taper DAILY@04 TOP 06/26/16 04:00 06/22/17 03:59 07/09/16 02:24 (Chlorhexidine 2% Cloth) 3 pack UNSCH PRN TOP 06/25/16 10:45 (Aspirin Chew) 81 mg DAILY CHEW 06/25/16 14:00 07/07/16 08:35 (Vitamin B1) 100 mg DAILY PO 06/25/16 15:00 07/09/16 08:42 (Symbicort 80-4.5 Mcg Inh) 2 puff Q12HR INH 06/26/16 23:00 07/07/16 22:37 (Tums Chew) 500 mg BID CHEW 06/27/16 09:00 07/09/16 08:40 (Lactinex) 1 tab TIDAC PO 06/27/16 12:00 07/09/16 12:15 (Lactulose Liq) 30 ml BID PO 06/27/16 09:00 07/08/16 20:46 (Mycostatin Powder) 1 applic Q12HR TOPICAL 06/27/16 09:00 07/09/16 08:41 (Cordarone) 200 mg DAILY PO 06/28/16 09:00 07/07/16 08:35 (Protonix Inj) 40 mg BID IV PUSH 06/27/16 21:00 07/09/16 08:40 (Folate) 1 mg DAILY PO 06/28/16 09:00 07/09/16 08:41 (Theragran) 1 tab DAILY PO 06/28/16 09:00 07/09/16 08:40 (Roxicodone) 5 mg Q6H PRN PO 06/27/16 09:30 07/07/16 10:35 (Drisdol) 50,000 units Q7D PO 06/27/16 20:00 07/04/16 20:34 Carvedilol 3.125 mg 3.125 mg Q12HR PO 06/28/16 09:00 07/07/16 21:49 (Zosyn 3.375 Gm Premix) 50 ml @ 100 mls/hr Q6H IV 06/29/16 15:00 07/09/16 08:40 (Mag-Ox) 400 mg Q12HR PO 06/30/16 21:00 07/09/16 08:44 (Bumetanide) 1 mg DAILY PO 07/05/16 09:00 07/07/16 08:35 Albumin Human 25 gm 25 gm Q12H IV 07/08/16 02:00 07/09/16 00:53 Midazolam HCl 100 ml @ 0 mls/hr TITRATE IV 07/08/16 03:15 07/09/16 05:58 Fentanyl Citrate 250 ml @ 0 mls/hr TITRATE IV 07/08/16 03:15 07/08/16 03:37 (Levophed-Dextrose Drip) 250 ml @ 0 mls/hr TITRATE IV 07/08/16 11:00 07/08/16 18:42 (Brethine Inj) 1 mg UNSCH PRN SQ 07/08/16 09:45 (NovoLOG SUPPLEMENTAL SCALE) 1 Q4HR SQ 07/08/16 20:00 07/09/16 12:18 (D50w (Vial) Inj) 25 ml UNSCH PRN IV 07/08/16 16:45 Glucagon 1 mg 1 mg UNSCH PRN IM/SQ 07/08/16 16:45 (Sodium Phosphate Inj/NS 250 ml Inj) 260 ml @ 43.333 mls/ hr ONCE ONCE IV 07/09/16 13:00 07/09/16 18:59 . Family History The patient's father at age 93 of "old age." The patient's mother at age 88 from complications of a fractured hip. One brother at age 49 from myocardial infarction. Another brother at age 73. He had diabetes and end-stage renal disease requiring dialysis. . Substance Use Tobacco: Quit smoking approximately 30-40 years ago Alcohol: Patient was consuming at least 6-7 alcoholic drinks per day and continue to do so in the days leading up to his hospital admission in April. Prescription med abuse: No known prescription drug abuse. Illicits: No known use of illicits. . Psychosocial History The patient is originally from [place] and [place] continues to be his state of permanent residence. He visits his brother and his brother's family here in [facility] on an annual basis. He has been in [place] this time since 04/2016. The patient is a high school graduate and completed some college. He has no experience. 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 The patient has never been . He has no children. He was one of 4 brothers. 2 of those brothers are . His brother, Randy, lives in [facility] and is his closest relative. . Spiritual/Cultural Factors Family reports that spiritism and spirituality have not been an important part of his life. . Living Will: Never completed Health Care Surrogate: Never completed Durable Power of Tobacco Primer Machine Operator: Never completed Date completed: There is a scanned counts include 234 beds at the [facility] DO NOT RESUSCITATE order on the chart dated . It appears to have been signed by the patient. Health Care Surrogate(s): No known written designation of healthcare surrogate. . Documented care wishes: No known written documentation of health care preferences/goals. . Today's verbally stated goals: Patient is unable to verbally state his own health care goals / preferences at this time. Uncertain if he will re-gain capacity to do so. . Family/friends goals: Spoke with patient's brother via phone. Brother feels the patient would wand ongoing aggressive care at this time. He is hoping that the patient gets well enough to make his own decisions . He is also hoping the patient is able to write a will. . Ethical and Legal Issues No written advance directives. Unclear if the patient will regain capacity. . Physical Exam Vital Signs Date Time Temp Pulse Resp B/P Pulse Ox O2 Delivery O2 Flow Rate FiO2 07/09/16 12:00 40 07/09/16 12:00 98.7 57 18 114/53 100 07/09/16 12:00 57 07/09/16 11:21 100 40 07/09/16 10:00 59 07/09/16 09:25 40 07/09/16 08:29 100 40 07/09/16 08:00 40 07/09/16 08:00 55 07/09/16 08:00 98.6 58 18 91/53 100 07/09/16 06:00 58 07/09/16 04:17 100 40 07/09/16 04:00 40 07/09/16 04:00 62 07/09/16 04:00 98.1 62 18 115/55 100 07/09/16 02:00 60 07/09/16 01:09 100 40 07/09/16 00:00 40 07/09/16 00:00 60 07/09/16 00:00 98.6 60 18 112/57 100 07/08/16 22:00 74 07/08/16 21:57 100 40 07/08/16 20:11 98 40 07/08/16 20:00 65 07/08/16 20:00 40 07/08/16 20:00 101.1 65 18 94/51 100 07/08/16 18:00 62 07/08/16 16:00 99.0 59 18 100/49 100 07/08/16 16:00 40 07/08/16 16:00 59 07/08/16 15:27 99 40 07/08/16 14:00 59 . 507/09/16 19:00 07:00 Intake Total 1851 ml 2087 ml Output Total 400 ml 625 ml Balance 1451 ml 1462 ml . IV Total 739 ml 980 ml Tube Feeding 262 ml 567 ml Albumin 500 ml Packed Cells 250 ml Other 100 ml 540 ml Output Urine Total 400 ml 625 ml Gastric Drainage Total 0 ml 0 ml # Bowel Movements 0 3 . Exam CONSTITUTIONAL/GENERAL: This is an adequately nourished patient, sedated, intubated, mechanically ventilated in the SICU. No evidence of distress. TUBES/LINES/DRAINS: Orotracheal tube; orogastric tube; soft wrist restraints; Donaldson catheter; SCDs; right subclavicular central line; peripheral IV SKIN: No jaundice, rashes, or lesions. Ecchymoses on upper extremities. No wounds seen anteriorly. Skin temperature appropriate. Not diaphoretic. HEAD: Atraumatic. Normocephalic. EYES: Pupils equal and round and reactive. Cannot evaluate extraocular movements. No scleral icterus. No injection or drainage. Fundi not examined. ENT: Unable to evaluate hearing due to sedation.. Nose without bleeding or purulent drainage. Throat without visible erythema, exudates, masses, or lesions though oropharynx is difficult to visualize due to intubations NECK: Trachea midline. No palpable thyroid enlargement or nodularity. CARDIOVASCULAR: Regular rate and rhythm without murmurs, gallops, or rubs. No JVD. Peripheral pulses symmetric. RESPIRATORY/CHEST: Symmetric, unlabored respirations. Breath sounds equal bilaterally. No wheezes, rales, or rhonchi but breath sounds at bases are coarse. GASTROINTESTINAL: Abdomen soft, non-tender, nondistended. No hepato-splenomegaly , or palpable masses. No guarding. Bowel sounds present. GENITOURINARY: Without palpable bladder distension. Donaldson catheter in place. MUSCULOSKELETAL: Extremities without clubbing, cyanosis. Bilateral lower extremity pitting edema is present. The right great and second toes have been surgically removed. No joint tenderness or effusion noted. No calf tenderness. No mottling or clubbing. LYMPHATICS: No palpable cervical or supraclavicular adenopathy. NEUROLOGICAL: The patient is currently sedated. He stirs to examination but does not awaken. Unable to follow commands. PSYCHIATRIC: Unable to assess due to level of sedation and responsiveness . Diagnostic Tests Laboratory Laboratory Tests Test 07/08/16 07/08/16 07/08/16 07/08/16 00:25 00:35 01:50 03:22 Blood Gas Puncture Site RT RADIAL RT RADIAL Blood Gas Patient Temperature 98.6 98.6 Blood Gas HCO3 36 mmol/L 31 mmol/L (22-26) (22-26) Blood Gas Base Excess 9.3 mmol/L 6.9 mmol/L (-2-2) (-2-2) Blood Gas Oxygen Saturation 93 % (90-100) 99 % (90-100) Arterial Blood pH 7.30 7.44 (7.380-7.420) (7.380-7.420) Arterial Blood Partial 74 mmHg (38-42) 47 mmHg (38-42) Pressure CO2 Arterial Blood Partial 83 mmHg 176 mmHG Pressure O2 (61-120) (61-120) Arterial Blood Oxygen Content 12.4 Vol % 10.0 Vol % (12.0-20.0) (12.0-20.0) Arterial Blood 1.4 % (0-4) 1.4 % (0-4) Carboxyhemoglobin Arterial Blood Methemoglobin 0.9 % (0-2) 0.0 % (0-2) Blood Gas Hemoglobin 9.4 G/DL 6.9 G/DL (12.0-16.0) (12.0-16.0) Oxygen Delivery Device NRB VENTILATOR Blood Gas Liter Flow 15 L/M Blood Gas Inspired Oxygen 100 % 60 % White Blood Count 8.7 TH/MM3 (4.0-11.0) Red Blood Count 2.66 MIL/MM3 (4.50-5.90) Hemoglobin 8.0 GM/DL (13.0-17.0) Hematocrit 23.7 % (39.0-51.0) Mean Corpuscular Volume 89.3 FL (80.0-100.0) Mean Corpuscular Hemoglobin 29.9 PG (27.0-34.0) Mean Corpuscular Hemoglobin 33.5 % Concent (32.0-36.0) Red Cell Distribution Width 17.6 % (11.6-17.2) Platelet Count 145 TH/MM3 (150-450) Mean Platelet Volume 7.8 FL (7.0-11.0) Neutrophils (%) (Auto) 76.6 % (16.0-70.0) Lymphocytes (%) (Auto) 9.9 % (9.0-44.0) Monocytes (%) (Auto) 8.4 % (0.0-8.0) Eosinophils (%) (Auto) 4.6 % (0.0-4.0) Basophils (%) (Auto) 0.5 % (0.0-2.0) Neutrophils # (Auto) 6.7 TH/MM3 (1.8-7.7) Lymphocytes # (Auto) 0.9 TH/MM3 (1.0-4.8) Monocytes # (Auto) 0.7 TH/MM3 (0-0.9) Eosinophils # (Auto) 0.4 TH/MM3 (0-0.4) Basophils # (Auto) 0.0 TH/MM3 (0-0.2) CBC Comment DIFF FINAL Differential Comment Sodium Level 134 MEQ/L (136-145) Potassium Level 3.7 MEQ/L (3.5-5.1) Chloride Level 92 MEQ/L (98-107) Carbon Dioxide Level 35.9 MEQ/L (21.0-32.0) Anion Gap 6 MEQ/L (5-15) Blood Urea Nitrogen 26 MG/DL (7-18) Creatinine 2.28 MG/DL (0.60-1.30) Estimat Glomerular Filtration 29 ML/MIN (>89) Rate Random Glucose 152 MG/DL (74-106) Lactic Acid Level 0.6 mmol/L (0.4-2.0) Calcium Level 7.8 MG/DL (8.5-10.1) Total Bilirubin 0.5 MG/DL (0.2-1.0) Aspartate Amino Transf 26 U/L (15-37) (AST/SGOT) Alanine Aminotransferase 15 U/L (12-78) (ALT/SGPT) Alkaline Phosphatase 85 U/L (45-117) Troponin I 0.02 NG/ML (0.02-0.05) Total Protein 6.5 GM/DL (6.4-8.2) Albumin 1.4 GM/DL (3.4-5.0) Blood Gas Ventilator Setting AC 18/550/5PEEP Blood Type A POSITIVE Antibody Screen NEGATIVE Crossmatch Leukocyte-Reduced Red Blood Cells Blood Bank Comment Test 07/08/16 07/08/16 07/08/16 07/08/16 05:50 07:20 11:26 19:30 Urine Color YELLOW (YELLW/STRAW) Urine Turbidity CLEAR (CLEAR) Urine pH 5.5 (5.0-8.5) Urine Specific Hart 1.010 (1.002-1.035) Urine Protein TRACE mg/dL (NEG-TRACE) Urine Glucose (UA) NEG mg/dL (NEG) Urine Ketones NEG mg/dL (NEG) Urine Occult Blood MOD (NEG) Urine Nitrite NEG (NEG) Urine Bilirubin NEG (NEG) Urine Urobilinogen LESS THAN 2.0 MG/DL (LESS THAN 2.0) Urine Leukocyte Esterase NEG (NEG) Urine RBC 4 /hpf (0-3) Urine WBC 3 /hpf (0-5) Urine Amorphous Sediment OCC Urine Mucus FEW /lpf (OCC) Microscopic Urinalysis Comment CATH-CULT NOT IND White Blood Count 7.0 TH/MM3 (4.0-11.0) Red Blood Count 2.43 MIL/MM3 (4.50-5.90) Hemoglobin 7.3 GM/DL 8.4 GM/DL (13.0-17.0) (13.0-17.0) Hematocrit 21.6 % 23.8 % (39.0-51.0) (39.0-51.0) Mean Corpuscular Volume 88.9 FL (80.0-100.0) Mean Corpuscular Hemoglobin 30.0 PG (27.0-34.0) Mean Corpuscular Hemoglobin 33.7 % Concent (32.0-36.0) Red Cell Distribution Width 17.2 % (11.6-17.2) Platelet Count 105 TH/MM3 (150-450) Mean Platelet Volume 7.9 FL (7.0-11.0) Sodium Level 133 MEQ/L (136-145) Potassium Level 3.4 MEQ/L 4.3 MEQ/L (3.5-5.1) (3.5-5.1) Chloride Level 93 MEQ/L (98-107) Carbon Dioxide Level 31.6 MEQ/L (21.0-32.0) Anion Gap 8 MEQ/L (5-15) Blood Urea Nitrogen 24 MG/DL (7-18) Creatinine 2.23 MG/DL (0.60-1.30) Estimat Glomerular Filtration 29 ML/MIN (>89) Rate Random Glucose 79 MG/DL (74-106) Calcium Level 7.9 MG/DL (8.5-10.1) Magnesium Level 2.0 MG/DL (1.5-2.5) Phosphorus Level 1.7 MG/DL (2.5-4.9) Test 07/09/16 04:40 White Blood Count 5.9 TH/MM3 (4.0-11.0) Red Blood Count 2.54 MIL/MM3 (4.50-5.90) Hemoglobin 7.8 GM/DL (13.0-17.0) Hematocrit 22.2 % (39.0-51.0) Mean Corpuscular Volume 87.3 FL (80.0-100.0) Mean Corpuscular Hemoglobin 30.5 PG (27.0-34.0) Mean Corpuscular Hemoglobin 35.0 % Concent (32.0-36.0) Red Cell Distribution Width 17.4 % (11.6-17.2) Platelet Count 85 TH/MM3 (150-450) Mean Platelet Volume 7.9 FL (7.0-11.0) Neutrophils (%) (Auto) 72.9 % (16.0-70.0) Lymphocytes (%) (Auto) 14.0 % (9.0-44.0) Monocytes (%) (Auto) 9.0 % (0.0-8.0) Eosinophils (%) (Auto) 3.4 % (0.0-4.0) Basophils (%) (Auto) 0.7 % (0.0-2.0) Neutrophils # (Auto) 4.3 TH/MM3 (1.8-7.7) Lymphocytes # (Auto) 0.8 TH/MM3 (1.0-4.8) Monocytes # (Auto) 0.5 TH/MM3 (0-0.9) Eosinophils # (Auto) 0.2 TH/MM3 (0-0.4) Basophils # (Auto) 0.0 TH/MM3 (0-0.2) CBC Comment AUTO DIFF Differential Comment AUTO DIFF CONFIRMED Platelet Estimate LOW (NORMAL) Platelet Morphology Comment NORMAL (NORMAL) Ovalocytes 1+ (NORMAL) Sodium Level 133 MEQ/L (136-145) Potassium Level 3.7 MEQ/L (3.5-5.1) Chloride Level 94 MEQ/L (98-107) Carbon Dioxide Level 29.8 MEQ/L (21.0-32.0) Anion Gap 9 MEQ/L (5-15) Blood Urea Nitrogen 25 MG/DL (7-18) Creatinine 2.29 MG/DL (0.60-1.30) Estimat Glomerular Filtration 29 ML/MIN (>89) Rate Random Glucose 261 MG/DL (74-106) Calcium Level 7.6 MG/DL (8.5-10.1) Total Bilirubin 0.9 MG/DL (0.2-1.0) Aspartate Amino Transf 20 U/L (15-37) (AST/SGOT) Alanine Aminotransferase 15 U/L (12-78) (ALT/SGPT) Alkaline Phosphatase 84 U/L (45-117) Total Protein 6.2 GM/DL (6.4-8.2) Albumin 2.2 GM/DL (3.4-5.0) . Result Diagram: 07/09/16 0440 07/09/16 0440 Microbiology Microbiology Date/Time Procedure Status Source Growth 07/08/16 00:35 Aerobic Blood Culture - Preliminary Resulted Blood Peripheral NO GROWTH IN 1 DAY 07/08/16 00:35 Anaerobic Blood Culture - Preliminary Resulted Blood Peripheral NO GROWTH IN 1 DAY 07/08/16 00:40 Aerobic Blood Culture - Preliminary Resulted Blood Peripheral NO GROWTH IN 1 DAY 07/08/16 00:40 Anaerobic Blood Culture - Preliminary Resulted Blood Peripheral NO GROWTH IN 1 DAY 07/08/16 01:25 Gram Stain - Final Resulted Sputum Endotracheal 07/08/16 01:25 Sputum Culture Resulted Sputum Endotracheal Pending . Imaging Last Impressions Head CT 07/08/16 0016 Signed Impressions: Service Date/Time: Friday, July 08, 2016 02:22 - CONCLUSION: 1. No acute findings. Mild atrophy. Randy Byrne MD Chest X-Ray 07/08/16 0000 Signed Impressions: Service Date/Time: Friday, July 08, 2016 02:03 - CONCLUSION: 1. Placement of endotracheal tube, nasogastric tube and right central line in satisfactory position. No pneumothorax. Randy Byrne MD Thoracentesis Ultrasound 07/05/16 0600 Signed Impressions: Service Date/Time: June 10:34 - CONCLUSION: Uncomplicated ultrasound guided thoracentesis. Edgar Rice MD Chest CT 07/02/16 0000 Signed Impressions: Service Date/Time: Saturday, July 02, 2016 23:35 - CONCLUSION: 1. Moderate sized bilateral pleural effusions with dense consolidation in both posterior lower lobes. 2. Right upper lobe bronchiectasis with 4 cm mass like area in the right upper lobe. 3. Cardiomegaly with small pericardial effusion. 4. Cirrhotic liver. 5. Mild splenomegaly with multiple varices in the upper left abdomen. Carlos Watts MD Upper Extremity Ultrasound 06/25/16 0000 Signed Impressions: Service Date/Time: Saturday, June 25, 2016 12:29 - CONCLUSION: 1. Occlusive thrombus in the left cephalic vein. 2. No deep venous thrombosis from the right arm.. Pepito Kulkarni MD Renal Ultrasound 06/25/16 0000 Signed Impressions: Service Date/Time: Saturday, June 25, 2016 22:41 - CONCLUSION: 1. Unremarkable kidneys. 2. Small volume ascites. 3. Bilateral pleural effusions. 4. Splenomegaly. Carroll Joel Jr., MD Lung Scan-[facility] Nuclear Medicine 06/25/16 0000 Signed Impressions: Service Date/Time: Saturday, June 25, 2016 08:33 - CONCLUSION: Low probability for pulmonary embolism. Moderate ventilatory defect. Alexy Padron MD FACR . Procedures * Intubation/mechanical ventilation * Right subclavicular central line placement . Patient/Family Conference Present at Family Conference: Brother . Family Conference Time (mins): 20 Family Conference Location: Telephone Issues Discussed: * Palliative care role, purpose, approach * Additional medical, psychosocial, and spiritual history * Patients general health, functional status, and cognitive changes in the months leading up to the current hospitalization * Family understanding of the current medical problems * Family understanding of prognosis * Patients goals of care as best understood from conversations and/or values * Current medical treatment options and benefits/burdens of those options * Questions answered to the best of my ability . Assessment and Plan Disease Oriented Problem List: (1) Bilateral pleural effusion (2) Cardiomyopathy Comment: Echocardiogram of 06/25/16 revealed an ejection fraction of 35-40% with no regional wall motion abnormalities. . (3) Pericardial effusion Comment: Echocardiogram of 06/25/16 showed a pericardial effusion. (4) Seizure Comment: Possible seizure activity noted on 07/08/16 . (5) Acute on chronic renal insufficiency Comment: GFR improved after admission and now is declining again. . (6) Diabetes mellitus Comment: Poorly controlled as an outpatient. Not very compliant with lifestyle recommendations. . (7) Acute respiratory failure with hypoxia (8) Cirrhosis (9) Atrial fibrillation (10) GI bleed Comment: Patient had several duodenal ulcers on endoscopy back in April 2016. Required embolization to control GI bleeding. (11) Anemia Comment: Concern for ongoing blood loss. . (12) Hypoalbuminemia (13) Alcohol abuse Symptom Scale: (1) Pain 0-10 Scale: Unable to quantify Comment: Patient currently sedated and unable to quantify or qualify pain. Current sources of pain might include prolonged bedbound status; orotracheal/ orogastric intubation; vascular access lines; Donaldson catheter; restraints. . (2) Encephalopathy 0-10 Scale: Unable to quantify Comment: May be some underlying dementia and there may be an element of alcoholic encephalopathy. . (3) Dyspnea 0-10 Scale: Unable to quantify Comment: Currently managed with mechanical ventilation. . Pertinent Non-Medical Issues Psychosocial: Patient's psychosocial support in this area comes primarily from his brother Randy and Randy's who live here. Patient is unmarried, has no children, but does have some close friends in his home state of [place]. Spiritual: Protestant and spirituality have not played an important role in his life. Legal: Patient has never completed an advanced directive. Under [place] statutes, his brother, Randy, would be his legal proxy for healthcare decision- making. Randy has accepted this role. Ethical issues impacting care: Patient is currently incapacitated to make his own health care decisions. It is unclear if he will regain capacity. Important Contacts * Randy Gonzalez (brother and health care proxy) [phone] . Prognosis Based on family reports, the patient has been declining physically and cognitively for about a year. There had been weight loss and memory loss. Since his hospitalization here at the end of April he has been unable to truly turn a corner and improve. He had a long ICU stay during the admission in April /May and is now back in the ICU in June requiring mechanical ventilation once again. He has multiple medical problems -- cardiomyopathy; CHF; alcoholic liver disease; recent GI bleed; DM; acute on chronic renal disease; pleural effusions requiring thoracentesis; etc. It is certainly possible that he will get through this acute period yet again, but there is a high likelihood that he will "bounce back" to the hospital before completing rehabilitation. Based on the pre-April trajectory of decline, we can expect ongoing loss of functional status even if the acute problems are addressed. . Code Status: Full Code Plan == Code Status: FULL CODE. Patient's brother, the health care proxy, spoke with brother days ago, and he feels his brother would want ongoing aggressive care as long as there remains a chance he might improve. == Decision making: Patient is incapacitated to make his own health care decisions at this time and it remains uncertain if he will regain capacity. He has no spouse, no children, no surviving parents. He has one surviving brother -- Randy Gonzalez -- who is local and is the appropriate health care proxy. Randy has been accepting that role. == Goals or medical treatment: As noted above, the brother believes the patient wants ongoing aggressive care as long as the doctors think there is a reasonable chance of recovery. They are hoping he will improve well enough to have another conversation about his own goals and to complete a will. ==Pain: Patient's primary pre-hospital pain syndrome was his knee. Other sources of pain currently could include prolonged bedbound status; edema; restraints; urinary catheter; and vascular access lines. Patient currently on fentanyl/midazolam drips. Pain is controlled. No further recommendations at this time. ==Encephalopathy: Difficult to assess while sedated. Family suggests there was early dementia prior to his hospitalizations. There may be an element of alcholic encephalopathy. Brother says he was able to hold a relatively normal conversation just days ago. No further recommendations at this time. == Dyspnea: Patient has long history of asthma requiring approximately 2 puffs on an albuterol inhaler daily at baseline. This is his third time requiring mechanical ventilation since April 2016. Dyspnea currently controlled with mechanical ventilation. No further recommendations at this time. == Disposition: If /when he recovers from this acute illness, he will need to go to rehab. I think it is unlikely that he will be able to return to independent living. Chances of significant medical setback over the next weeks to months are high. If/when he is awake/alert, we will want to talk about whether or not to transition to "comfort measures only" and hospice should there be another major setback. ==Palliative care will continue to follow to assist with symptom management and to further clarify goals of medical treatment as the clinical course evolves. . Thank you for the opportunity to participate in the care of Mr. Gonzalez. . Attestation To help prompt me to consider important information that might be impacting today's encounter and assessment, information from prior notes written by myself or my colleagues may have been "brought forward" into today's note. My signature on this note, however, is an attestation that I personally performed the exam, history, and/or decision-making noted today, and, unless otherwise indicated, the interactions with patient, family, and staff as well as the review of records all occurred today. I also attest that the listed assessment and stated plan reflect my best clinical judgment today based on the combination of historical information, prior notes, and today's exam/ interactions. When time spent is documented, it refers only to time spent today by the signer, or if indicated, combined time spent today by collaborating physician/nurse practitioner. . Rod Erazo MD July 09, 2016 14:13
--- NOTE | 2016-07-09 17:30 | HHI.CCPN ---
Subjective Remarks/Hospital Course The patient is a 66-year-old male with a past medical history of diabetes mellitus, bronchial asthma, ETOH use, cirrhosis of the liver, who presented to [facility] ED from a nursing facility for shortness of breath. The patient was recently hospitalized in the end of April, for GI bleed secondary to large duodenal ulcer. In addition he underwent arteriogram and embolization of the right gastric and GDA on May 18. He required multiple blood transfusions, intubation and mechanical ventilation. In addition, the patient had two endoscopies. On arrival to the ED the patient was hypotensive with blood pressure 94/50 and his laboratory data showed mild acute kidney injury with a BUN of 21, creatinine 1.86, lactic acidosis with lactic acid level 3.6 and elevated BNP at 427. In addition, he was found to have elevated D -dimer at 12.28. CT scan of the brain was obtained which showed no atrophy, otherwise no acute intracranial abnormalities. A VQ scan was obtained as well in the ER which showed low probability for pulmonary embolism. His initial chest x-ray from early this morning showed bilateral pleural effusions and patchy bilateral pulmonary infiltrates. Central line was placed by ED physician and a repeat chest x-ray showed right IJ central line in good position , bilateral effusions with bilateral parenchymal densities, right greater than the left. In the ER he was given 2 liters of crystalloids in addition to vancomycin, Zosyn, Solu-Medrol, bronchodilator and Bumex. He was hypotensive in the ER and the patient was placed on Levophed which is currently at three mics. Due to his respiratory distress, the patient was intubated and placed on full mechanical ventilation. When seen he is on Diprivan infusion for sedation. However, the patient is awake, alert and follows commands. ABG post intubation showed a pH of 7.35, CO2 48, pAO2 325, bicarb 26, saturation of 98%. 06/26: Patient is sedated with Diprivan. Afebrile. Off Levophed. 06/27: Extubated 06/26. Of all vasopressors. Currently on nasal cannula. Tolerating diet. Subjective 06/28: Currently complaining of chest discomfort/pleuritic with breathing and shortness of breath. On 4 L nasal cannula. Complaining of difficulty with swallowing. No bowel movement. Up in chair 4 hours yesterday. 07/08 shortly after midnight rapid response team was called for the patient's seizure-like activity. He received Ativan however shortly after seizure and became unresponsive retaining CO2 at 70s. He required endotracheal intubation for airway protection. After intubation patient became hypotensive requiring low dose of Levophed to keep his map above 65 and central line was placed. 07/09: Sedated, orally intubated on mechanical ventilation. Was transfused 1 unit PRBCs yesterday. Remains on Levophed for pressor support. Objective Vital Signs Date Time Temp Pulse Resp B/P Pulse Ox O2 Delivery O2 Flow Rate FiO2 07/09/16 16:00 98.1 60 18 103/55 100 07/09/16 16:00 40 07/08/16 00:45 Non-Rebreather 15.00 Intake and Output 07/08/16 07/08/16 07/09/16 08:00 16:00 00:00 Intake Total 1738 ml 1851 ml 1110 ml Output Total 600 ml 400 ml 300 ml Balance 1138 ml 1451 ml 810 ml Result Diagram: 07/09/16 0440 07/09/16 0440 Imaging Last Impressions Chest X-Ray 06/28/16 0600 Signed Impressions: Service Date/Time: June 03:31 - CONCLUSION: Unchanged effusions and bibasilar infiltrates/atelectasis. Carroll Joel Jr., MD Upper Extremity Ultrasound 06/25/16 0000 Signed Impressions: Service Date/Time: Saturday, June 25, 2016 12:29 - CONCLUSION: 1. Occlusive thrombus in the left cephalic vein. 2. No deep venous thrombosis from the right arm.. Pepito Kulkarni MD Renal Ultrasound 06/25/16 0000 Signed Impressions: Service Date/Time: Saturday, June 25, 2016 22:41 - CONCLUSION: 1. Unremarkable kidneys. 2. Small volume ascites. 3. Bilateral pleural effusions. 4. Splenomegaly. Carroll Joel Jr., MD Lung Scan-V Nuclear Medicine 06/25/16 0000 Signed Impressions: Service Date/Time: Saturday, June 25, 2016 08:33 - CONCLUSION: Low probability for pulmonary embolism. Moderate ventilatory defect. Alexy Padron MD FACR Head CT 06/25/16 0000 Signed Impressions: Service Date/Time: Saturday, June 25, 2016 04:22 - CONCLUSION: 1. Atrophy. 2. No acute intracranial abnormality. Carroll Joel Jr., MD Objective Remarks HEENT/ Neuro: Sedated, orally intubated, Pallor present, no icterus, tongue/ mucosa moist Neck: No JVD Chest/Pulm: on mech vent, air entry decreased bilaterally at bases, bilateral rhonchi no wheezing or crackles CVS: S1-S2 regular, no murmur GI/abdomen: soft, nontender, bowel sounds sluggish Extremities: warm bilaterally, no edema Urinary Catheter: Yes A/P Assessment and Plan Neuro/Psych: ETOH History of hepatic encephalopathy Hold Oxycodone for pain management Seizure precautions Head CT negative for bleed/mass Fentanyl and Versed drip for sedation. Daily sedation vacation We'll obtain EEG and neuro consults for further evaluation of seizure which possibly was related to hypoglycemia. Patient has had ongoing issues with progressive memory problems and possible dementia. CV: Congestive heart failure - chronic systolic Pericardial effusion Atrial fibrillation Echocardiogram 06/25 revealed ejection fraction 35-40%. No regional wall motion abnormality. ROLANDO [address] Byrne. Not a candidate for left heart catheter/PCI. Recommended Coreg 3.125 twice a day, aspirin 81 mg daily/medical management On amiodarone 200 mg daily Pericardial effusion without tamponade features Hypotension possibly due to over diuresis/sedation for intubation Hold diuretics IV fluids and albumin Levophed to keep map above 65 Resp: Chronic 02 - 1.5 liters Acute hypoxemic respiratory failure. Congestive heart failure/infectious etiology Bronchial asthma Bilateral pleural effusions likely transmitted Intubated for an airway protection Continue mechanical ventilation, vent bundle, daily C Pap trials. Failed C Pap trial within a few minutes on 07/09. Bronchodilator therapy every 4 hours and as needed VQ scan admission low probability for pulmonary embolism GI: History of celiac artery embolization left PT secondary to duodenal ulcer 06/04 Gastroesophageal reflux disease Liver cirrhosis with varices Transfused 1 unit PRBCs on 07/08. Follow CBC. Continue Protonix 40 mg by mouth twice a day : BPH Donaldson catheter while on diuretics for accurate I's and O's in a critically ill patient Endo: Diabetes mellitus Elevated intact parathyroid hormone Low vitamin D 25 Patient was intubated for severe hypoglycemia with an estimated mucosa 30s on . Now hyperglycemic following holding Levemir and switching from high-dose to medium dose sliding scale. Continue NG tube feeds Add NPH 8 units subcutaneously every 12 hourly on 07/09 Renal: Acute on chronic kidney injury Followed by nephrology. Baseline creatinine 1.7. Currently Bumex 1 mg by mouth daily. Avoid nephrotoxic drugs Strict intake output, monitor and replete elect lites, follow BUN/creatinine. Renal ultrasound revealed no hydronephrosis. Heme: Leukocytosis Normocytic anemia Left cephalic vein thrombosis Thrombocytopenia Severe anemia Transfuse 2 units of PRBCs Monitor CBC daily Monitor trends ID: Recently treated left knee osteomyelitis completed therapy vancomycin/Diflucan Community-acquired pneumonia Currently on Zosyn Pertinent cultures Blood cultures 2 - 06/25 - no growth MSK: PT evaluate and treat FEN: Replace electrolytes as clinically indicated Access - Right subclavian placed 07/08 Prophylaxis - GI - Protonix - DVT - SCD/pharmacological prophylaxis held due to GI bleed Prognosis appears poor with advanced cirrhosis, encephalopathy, CHF, respiratory failure, brittle diabetes. Consulted palliative care to assist with deciding goals of therapy. Critical Care: The total care time was 35 minutes. Time to perform other separately billable procedures was not included in the critical care time. Austin Alvarez MD July 09, 2016 17:30
--- NOTE | 2016-07-09 19:23 | HHI.PR ---
Subjective Remarks 66 YOWM with CHF,RF, s/p extubation Weakend events noted Pt intubated On Fentanyl and Versed Requiring Levophed 4 mcg Objective Vital Signs Vital Signs Date Time Temp Pulse Resp B/P Pulse Ox O2 Delivery O2 Flow Rate FiO2 07/09/16 18:00 63 07/09/16 16:00 98.1 60 18 103/55 100 07/09/16 16:00 40 07/09/16 16:00 60 07/09/16 14:00 56 07/09/16 12:00 40 07/09/16 12:00 98.7 57 18 114/53 100 07/09/16 12:00 57 07/09/16 11:21 100 40 07/09/16 10:00 59 07/09/16 09:25 40 07/09/16 08:29 100 40 07/09/16 08:00 40 07/09/16 08:00 55 07/09/16 08:00 98.6 58 18 91/53 100 07/09/16 06:00 58 07/09/16 04:17 100 40 07/09/16 04:00 40 07/09/16 04:00 62 07/09/16 04:00 98.1 62 18 115/55 100 07/09/16 02:00 60 07/09/16 01:09 100 40 07/09/16 00:00 40 07/09/16 00:00 60 07/09/16 00:00 98.6 60 18 112/57 100 07/08/16 22:00 74 07/08/16 21:57 100 40 07/08/16 20:11 98 40 07/08/16 20:00 65 07/08/16 20:00 40 07/08/16 20:00 101.1 65 18 94/51 100 I/O 07/08/16 07/08/16 07/08/16 07/09/16 07/09/16 07/09/16 07:00 15:00 23:00 07:00 15:00 23:00 Intake Total 1738 ml 1851 ml 1110 ml 977 ml 1781 ml Output Total 600 ml 400 ml 300 ml 325 ml 285 ml 0 ml Balance 1138 ml 1451 ml 810 ml 652 ml 1496 ml 0 ml IV Total 1238 ml 739 ml 533 ml 447 ml 635 ml Tube Feeding 262 ml 337 ml 230 ml 586 ml Albumin 500 ml 500 ml 500 ml Packed Cells 250 ml Other 100 ml 240 ml 300 ml 60 ml Output Urine Total 600 ml 400 ml 300 ml 325 ml 285 ml Gastric Drainage Total 0 ml 0 ml 0 ml Tube Feeding Residual Discard 0 ml 0 ml # Bowel Movements 0 0 0 3 2 Result Diagram: 07/09/1643907/09/16439 Objective Remarks GENERAL: MBMN WM, mild sob SKIN: Warm and dry. HEAD: Normocephalic. EYES: No scleral icterus. No injection or drainage. NECK: Supple, trachea midline. No JVD or lymphadenopathy. CARDIOVASCULAR: Regular rate and rhythm without murmurs, gallops, or rubs. RESPIRATORY: Breath sounds equal bilaterally. No accessory muscle use. Scattered rales GASTROINTESTINAL: Abdomen soft, non-tender, nondistended. MUSCULOSKELETAL: No cyanosis, or edema. BACK: Nontender without obvious deformity. No CVA tenderness. A/P Assessment and Plan VDRF Pl effusion, s/p right TC DM CHF Anemia Renal insuff PLAN: Vent support Levophed to keep MAP.>65 Cont Abx Sedation with Fentanyl and Versed Aerosol Ashish Klein MD July 09, 2016 19:23
[2016-07-09] MEDS: INSULIN HUMAN NPH 1,000 UNITS/10 ML VIAL SQ SCH (19:59)
[2016-07-09] MEDS: NOREPINEPHRINE-DEXTROSE DRIP 250 ML IV SCH (20:18)
[2016-07-10] VITALS (20 sets, daily range): BP systolic 97–121; BP diastolic 51–61; PULSE 60–75; RESP 12–18; TEMP 97.9–99.5; O2SAT 97–100
[2016-07-10] MEDS: ALBUMIN HUMAN 5% 25 GM/500 ML BOTTLE IV SCH ×2 (01:45→15:00)
[2016-07-10] MEDS: PIPERACIL-TAZO 3.375 GM PREMIX 50 ML IV SCH ×4 (02:08→20:27)
[2016-07-10] MEDS: CHLORHEXIDINE GLUCONATE 2 % 1 PACK (2 CLOTHS) TOP SCH (04:00)
[2016-07-10] MEDS: NOREPINEPHRINE INJ 4 MG in SODIUM CHLOR 0.9% 250 ML INJ 246 ML IV SCH ×4 (04:59→21:20)
[2016-07-10] MEDS: INSULIN ASPART SUPPLEMENTAL SCALE SQ SCH ×5 (05:08→20:38)
--- NOTE | 2016-07-10 08:14 | PD.CONS ---
History of Present Illness Service Neurology Consult Requested By [facility] Reason for Consult sz Primary Care Physician Swapnil Griffith MD History of Present Illness 66 y/o m in [facility], intubated, seen by multiple specialists, most recently palliative care, neurology consulted for "seizure". was intubated, extubated and reintubated 07/08. pt unable to give any hx, medical chart reviewed. being tx'd for resp failure, followed by pulm and [facility]. had ?sz episode 07/08 but was also hypotensive. glucose >100. pco2 >70. given ativan and then placed on fentanyl/versed gtt's. also requiring pressor agents. hx of etohism, liver cirrhosis. PFSH Past Medical History DM Asthma Right 2nd digit gangrene, OM, foot cellulitis. S/P amputation. Hx alcoholism Coded Allergies: No Known Allergies (Unverified , 05/14/16) Family History Unable to obtain. 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 06/25/16 Active Ordered Medications Current Medications Medications (Trade) Dose Ordered Sig/Irene Route Start Time Stop Time Status Last Admin (NS Flush) 2 ml UNSCH PRN IVF 06/25/16 03:30 07/06/16 22:43 (NS Flush) 2 ml UNSCH PRN IVF 06/25/16 03:30 Miscellaneous Information 1 Q361D XX 06/25/16 10:45 06/25/16 10:45 (Chlorhexidine 2% Cloth) Taper DAILY@04 TOP 06/26/16 04:00 06/22/17 03:59 07/09/16 02:24 (Chlorhexidine 2% Cloth) 3 pack UNSCH PRN TOP 06/25/16 10:45 (Aspirin Chew) 81 mg DAILY CHEW 06/25/16 14:00 07/07/16 08:35 (Vitamin B1) 100 mg DAILY PO 06/25/16 15:00 07/09/16 08:42 (Symbicort 80-4.5 Mcg Inh) 2 puff Q12HR INH 06/26/16 23:00 07/07/16 22:37 (Tums Chew) 500 mg BID CHEW 06/27/16 09:00 07/09/16 19:59 (Lactinex) 1 tab TIDAC PO 06/27/16 12:00 07/09/16 16:04 (Lactulose Liq) 30 ml BID PO 06/27/16 09:00 07/08/16 20:46 (Mycostatin Powder) 1 applic Q12HR TOPICAL 06/27/16 09:00 07/09/16 20:01 (Cordarone) 200 mg DAILY PO 06/28/16 09:00 07/07/16 08:35 (Protonix Inj) 40 mg BID IV PUSH 06/27/16 21:00 07/09/16 20:00 (Folate) 1 mg DAILY PO 06/28/16 09:00 07/09/16 08:41 (Theragran) 1 tab DAILY PO 06/28/16 09:00 07/09/16 08:40 (Roxicodone) 5 mg Q6H PRN PO 06/27/16 09:30 07/07/16 10:35 (Drisdol) 50,000 units Q7D PO 06/27/16 20:00 07/04/16 20:34 Carvedilol 3.125 mg 3.125 mg Q12HR PO 06/28/16 09:00 07/07/16 21:49 (Zosyn 3.375 Gm Premix) 50 ml @ 100 mls/hr Q6H IV 06/29/16 15:00 07/10/16 02:08 (Mag-Ox) 400 mg Q12HR PO 06/30/16 21:00 07/09/16 20:00 (Bumetanide) 1 mg DAILY PO 07/05/16 09:00 07/07/16 08:35 Albumin Human 25 gm 25 gm Q12H IV 07/08/16 02:00 07/10/16 01:45 Midazolam HCl 100 ml @ 0 mls/hr TITRATE IV 07/08/16 03:15 07/09/16 20:18 (fentaNYL DRIP) 250 ml @ 0 mls/hr TITRATE IV 07/08/16 03:15 07/09/16 14:03 (Brethine Inj) 1 mg UNSCH PRN SQ 07/08/16 09:45 (NovoLOG SUPPLEMENTAL SCALE) 1 Q4HR SQ 07/08/16 20:00 07/10/16 05:08 (D50w (Vial) Inj) 25 ml UNSCH PRN IV 07/08/16 16:45 (Glucagon Inj) 1 mg UNSCH PRN IM/SQ 07/08/16 16:45 Insulin Human NPH 8 units 8 units Q12HR SQ 07/09/16 21:00 07/09/16 19:59 (Levophed Inj/NS 250 ml Inj) 250 ml @ 0 mls/hr TITRATE IV 07/10/16 04:05 07/10/16 04:59 Exam I&O / VS 07/09/16 07/09/16 07/10/16 15:00 23:00 07:00 Intake Total 1781 ml 1208 ml 1574 ml Output Total 285 ml 275 ml 250 ml Balance 1496 ml 933 ml 1324 ml IV Total 635 ml 801 ml 606 ml Tube Feeding 586 ml 347 ml 408 ml Albumin 500 ml 500 ml Other 60 ml 60 ml 60 ml Output Urine Total 285 ml 275 ml 250 ml Tube Feeding Residual Discard 0 ml 0 ml 0 ml # Bowel Movements 2 0 0 Vital Signs Date Time Temp Pulse Resp B/P Pulse Ox O2 Delivery O2 Flow Rate FiO2 07/10/16 07:10 40 07/10/16 06:00 72 07/10/16 04:46 100 40 07/10/16 04:00 40 07/10/16 04:00 99.5 68 18 112/58 100 07/10/16 04:00 68 07/10/16 02:00 66 07/10/16 01:06 100 40 07/10/16 00:00 62 07/10/16 00:00 40 07/10/16 00:00 99.3 62 18 105/55 100 07/09/16 22:00 62 07/09/16 20:23 100 40 07/09/16 20:00 98.8 61 18 116/56 100 07/09/16 20:00 40 07/09/16 20:00 61 07/09/16 18:00 63 07/09/16 16:00 98.1 60 18 103/55 100 07/09/16 16:00 40 07/09/16 16:00 60 07/09/16 14:00 56 07/09/16 12:00 40 07/09/16 12:00 98.7 57 18 114/53 100 07/09/16 12:00 57 07/09/16 11:21 100 40 07/09/16 10:00 59 07/09/16 09:25 40 07/09/16 08:29 100 40 07/09/16 08:00 40 07/09/16 08:00 55 07/09/16 08:00 98.6 58 18 91/53 100 Exam Comments intubated, on fentanyl gtt, versed stopped this am. coma state, non-verbal, not following, ou 2.5mm irregular, sluggish, face sym, no corneal, not groves to tactile, rt distal toe amputation, sensory/cerebellar exam limited 2/2 mental status Review/Management Diagnosis/Plan: (1) Encephalopathy Plan: ?metabolic sz vs convulsive syncope 2/2 hypotension/hypercapnia worsening uremia recs f/u eeg mri brain keppra for now monitor mag,calcium levels correct acid-base disturbances palliative care following (2) Acute on chronic renal insufficiency (3) CHF (congestive heart failure) (4) Cirrhosis (5) Atrial fibrillation Problem Qualifiers (1) CHF (congestive heart failure): (2) Cirrhosis: (3) Atrial fibrillation: Qualified Code: I48.91 - Atrial fibrillation, unspecified type Skyler Carmichael MD July 10, 2016 08:14
[2016-07-10] MEDS: BUDESONIDE-FORMOTEROL 80/4.5 MCG INHALER INH SCH ×2 (09:00→20:40)
[2016-07-10] MEDS ORDERED: levETIRAcetam 500MG PREMIX INJ 100 ML IV SCH (09:00)
[2016-07-10] MEDS: LACTOBACILLUS ACIDOPHILUS TAB PO SCH ×3 (09:55→17:01)
[2016-07-10] MEDS: INSULIN HUMAN NPH 1,000 UNITS/10 ML VIAL SQ SCH ×2 (09:58→20:39)
[2016-07-10] MEDS: levETIRAcetam INJ 500 MG in SODIUM CHLORIDE 0.9% INJ 100 ML IV SCH ×2 (09:59→20:40)
[2016-07-10] MEDS: CARVEDILOL 3.125 MG TAB PO SCH ×2 (10:00→20:34)
[2016-07-10] MEDS: MAGNESIUM OXIDE 400 MG TAB PO SCH ×2 (10:01→20:27)
[2016-07-10] MEDS: SODIUM CHLORIDE 0.9% FLUSH 10 ML FLUSH IVF PRN (10:01)
[2016-07-10] MEDS: BUMETANIDE 1 MG TAB PO SCH (10:01)
[2016-07-10] MEDS: AMIODARONE 200 MG TAB PO SCH (10:01)
[2016-07-10] MEDS: THIAMINE HCL 100 MG TAB PO SCH (10:01)
[2016-07-10] MEDS: FOLIC ACID 1 MG TAB PO SCH (10:01)
[2016-07-10] MEDS: PANTOPRAZOLE SODIUM 40 MG VIAL IV PUSH SCH ×2 (10:02→20:27)
[2016-07-10] MEDS: LACTULOSE SYRUP 20 GM/30 ML CUP PO SCH ×2 (10:02→20:27)
[2016-07-10] MEDS: MULTIVITAMIN TAB PO SCH (10:02)
[2016-07-10] MEDS: CALCIUM CARBONATE 500 MG CHEWABLE TAB CHEW SCH ×2 (10:02→20:27)
[2016-07-10] MEDS: ASPIRIN 81 MG CHEW TAB CHEW SCH (10:02)
[2016-07-10] MEDS: NYSTATIN 100,000 U/GM PWD 15 GM BTL TOPICAL SCH ×2 (10:03→20:39)
[2016-07-10 12:53] LABS: AUTOMATED NEUTROPHIL # 7.5 TH/MM3 (1.8-7.7); BASOPHIL # 0.1 TH/MM3 (0-0.2); BASOPHIL % 0.6 % (0.0-2.0); EOSINOPHIL # 0.4 TH/MM3 (0-0.4); EOSINOPHIL % 4.8 % (0.0-4.0); HEMO FLAGS DIFF FINAL; LYMPH % 5.6 % (9.0-44.0); LYMPHOCYTE # 0.5 TH/MM3 (1.0-4.8); MEAN CELL VOLUME 89.2 FL (80.0-100.0); MEAN CORPUSCULAR HEMOGLOBIN 30.3 PG (27.0-34.0); PLATELET COUNT 108 TH/MM3 (150-450); RED BLOOD COUNT 2.81 MIL/MM3 (4.50-5.90); RED CELL DISTRIBUTION WIDTH 17.8 % (11.6-17.2); WHITE BLOOD COUNT 9.3 TH/MM3 (4.0-11.0)
[2016-07-10 13:10] LABS: ALT (GPT) 12 U/L (12-78); ANION GAP 8 MEQ/L (5-15); BICARBONATE 31.2 MEQ/L (21.0-32.0); BLOOD UREA NITROGEN 23 MG/DL (7-18); CHLORIDE 98 MEQ/L (98-107); POTASSIUM 3.5 MEQ/L (3.5-5.1); SODIUM (NA) 137 MEQ/L (136-145)
[2016-07-10 13:16] LABS: ALKALINE PHOSPHATASE 74 U/L (45-117); AST (GOT) 21 U/L (15-37); GLOMERULAR FILTRATION RATE 35 ML/MIN (>89); TOTAL BILIRUBIN ADULT 0.9 MG/DL (0.2-1.0)
--- NOTE | 2016-07-10 13:34 | HHI.HCPN ---
Reason for visit a. To assist with evaluation and management of symptoms including: dyspnea , encephalopathy, pain b. To assist medical decision maker(s) with: better understanding of current medical conditions; weighing benefits/burdens of medical treatment options; making medical treatment decisions. . Subjective/Interval History Patient is off both midazolam and fentanyl for several hours at time of my visit. He does not awaken to voice/exam. He does not withdraw to noxious stimuli. Primary nurse has not seen him awaken today. He has been evaluated by neurology. He is scheduled to undergo MRI of the brain w/o contrast and EEG. He was started on levitiracetam. Patient is tolerating CPAP. He is off pressor support. Afebrile . A few systolic BPs in the 90s. Pulse stable. CBC stable. Chemistry stable. Sputum of 07/08/16 growing a gram positive wade. . Family/friend interactions No family contact today. . Advance Directives Living Will: Never completed Health Care Surrogate: Never completed Durable Power of Coring Machine Operator: Never completed Advance Directive Specifics Date completed: There is a scanned [facility] DO NOT RESUSCITATE order on the chart dated . It appears to have been signed by the patient. Health Care Surrogate(s): No known written designation of healthcare surrogate. . Documented care wishes: No known written documentation of health care preferences/goals. . Objective Vital Signs Date Time Temp Pulse Resp B/P Pulse Ox O2 Delivery O2 Flow Rate FiO2 07/10/16 12:00 98.3 69 12 103/53 100 07/10/16 11:58 100 40 07/10/16 08:01 98 40 07/10/16 08:00 99.1 75 13 97/51 97 07/10/16 07:10 40 07/10/16 06:00 72 07/10/16 04:46 100 40 07/10/16 04:00 40 07/10/16 04:00 99.5 68 18 112/58 100 07/10/16 04:00 68 07/10/16 02:00 66 07/10/16 01:06 100 40 07/10/16 00:00 62 07/10/16 00:00 40 07/10/16 00:00 99.3 62 18 105/55 100 07/09/16 22:00 62 07/09/16 20:23 100 40 07/09/16 20:00 98.8 61 18 116/56 100 07/09/16 20:00 40 07/09/16 20:00 61 07/09/16 18:00 63 07/09/16 16:00 98.1 60 18 103/55 100 07/09/16 16:00 40 07/09/16 16:00 60 07/09/16 14:00 56 Intake & Output 07/10/16 07/10/16 06:59 18:59 Intake Total 2782 ml 180 ml Output Total 525.0 ml Balance 2257.0 ml 180 ml IV Total 1407 ml Tube Feeding 755 ml Albumin 500 ml Other 120 ml 180 ml Output Urine Total 525 ml Tube Feeding Residual Discard 0 ml # Bowel Movements 0 . Physical Exam CONSTITUTIONAL/GENERAL: This is an adequately nourished patient, intubated, on CPAP in the SICU. No evidence of distress. Does not arouse to voice/exam. TUBES/LINES/DRAINS: Orotracheal tube; orogastric tube; soft wrist restraints; Donaldson catheter; SCDs; right subclavicular central line; peripheral IV; rectal tube SKIN: No jaundice, rashes, or lesions. Ecchymoses on upper extremities. No wounds seen anteriorly. Skin temperature appropriate. Not diaphoretic. HEAD: Atraumatic. Normocephalic. EYES: Pupils equal and round . Cannot evaluate extraocular movements. No scleral icterus. No injection or drainage. Fundi not examined. ENT: Unable to evaluate hearing due to level or responsiveness. Nose without bleeding or purulent drainage. Throat without visible erythema, exudates, masses , or lesions though oropharynx is difficult to visualize due to intubations NECK: Trachea midline. CARDIOVASCULAR: Regular rate and rhythm without murmurs, gallops, or rubs. No JVD. RESPIRATORY/CHEST: Symmetric, unlabored respirations. Breath sounds equal bilaterally. No wheezes, rales, or rhonchi . GASTROINTESTINAL: Abdomen soft, non-tender, nondistended. No hepato-splenomegaly , or palpable masses. No guarding. Bowel sounds hypoactive. GENITOURINARY: Without palpable bladder distension. Donaldson catheter in place. MUSCULOSKELETAL: Extremities without clubbing, cyanosis. Bilateral lower extremity pitting edema is present. The right great and second toes have been surgically removed. No mottling or clubbing. LYMPHATICS: Not examined. NEUROLOGICAL: Off sedation. Does not awaken to voice/ exam. Does not withdraw to noxious stimuli. No seizure activity noted. PSYCHIATRIC: Unable to assess due to level of sedation and responsiveness . Diagnostic Tests Laboratory Laboratory Tests Test 07/08/16 07/08/16 07/08/16 07/08/16 00:25 00:35 01:50 03:22 Blood Gas Puncture Site RT RADIAL RT RADIAL Blood Gas Patient Temperature 98.6 98.6 Blood Gas HCO3 36 mmol/L 31 mmol/L (22-26) (22-26) Blood Gas Base Excess 9.3 mmol/L 6.9 mmol/L (-2-2) (-2-2) Blood Gas Oxygen Saturation 93 % (90-100) 99 % (90-100) Arterial Blood pH 7.30 7.44 (7.380-7.420) (7.380-7.420) Arterial Blood Partial 74 mmHg (38-42) 47 mmHg (38-42) Pressure CO2 Arterial Blood Partial 83 mmHg 176 mmHG Pressure O2 (61-120) (61-120) Arterial Blood Oxygen Content 12.4 Vol % 10.0 Vol % (12.0-20.0) (12.0-20.0) Arterial Blood 1.4 % (0-4) 1.4 % (0-4) Carboxyhemoglobin Arterial Blood Methemoglobin 0.9 % (0-2) 0.0 % (0-2) Blood Gas Hemoglobin 9.4 G/DL 6.9 G/DL (12.0-16.0) (12.0-16.0) Oxygen Delivery Device NRB VENTILATOR Blood Gas Liter Flow 15 L/M Blood Gas Inspired Oxygen 100 % 60 % White Blood Count 8.7 TH/MM3 (4.0-11.0) Red Blood Count 2.66 MIL/MM3 (4.50-5.90) Hemoglobin 8.0 GM/DL (13.0-17.0) Hematocrit 23.7 % (39.0-51.0) Mean Corpuscular Volume 89.3 FL (80.0-100.0) Mean Corpuscular Hemoglobin 29.9 PG (27.0-34.0) Mean Corpuscular Hemoglobin 33.5 % Concent (32.0-36.0) Red Cell Distribution Width 17.6 % (11.6-17.2) Platelet Count 145 TH/MM3 (150-450) Mean Platelet Volume 7.8 FL (7.0-11.0) Neutrophils (%) (Auto) 76.6 % (16.0-70.0) Lymphocytes (%) (Auto) 9.9 % (9.0-44.0) Monocytes (%) (Auto) 8.4 % (0.0-8.0) Eosinophils (%) (Auto) 4.6 % (0.0-4.0) Basophils (%) (Auto) 0.5 % (0.0-2.0) Neutrophils # (Auto) 6.7 TH/MM3 (1.8-7.7) Lymphocytes # (Auto) 0.9 TH/MM3 (1.0-4.8) Monocytes # (Auto) 0.7 TH/MM3 (0-0.9) Eosinophils # (Auto) 0.4 TH/MM3 (0-0.4) Basophils # (Auto) 0.0 TH/MM3 (0-0.2) CBC Comment DIFF FINAL Differential Comment Sodium Level 134 MEQ/L (136-145) Potassium Level 3.7 MEQ/L (3.5-5.1) Chloride Level 92 MEQ/L (98-107) Carbon Dioxide Level 35.9 MEQ/L (21.0-32.0) Anion Gap 6 MEQ/L (5-15) Blood Urea Nitrogen 26 MG/DL (7-18) Creatinine 2.28 MG/DL (0.60-1.30) Estimat Glomerular Filtration 29 ML/MIN (>89) Rate Random Glucose 152 MG/DL (74-106) Lactic Acid Level 0.6 mmol/L (0.4-2.0) Calcium Level 7.8 MG/DL (8.5-10.1) Total Bilirubin 0.5 MG/DL (0.2-1.0) Aspartate Amino Transf 26 U/L (15-37) (AST/SGOT) Alanine Aminotransferase 15 U/L (12-78) (ALT/SGPT) Alkaline Phosphatase 85 U/L (45-117) Troponin I 0.02 NG/ML (0.02-0.05) Total Protein 6.5 GM/DL (6.4-8.2) Albumin 1.4 GM/DL (3.4-5.0) Blood Gas Ventilator Setting AC 18/550/5PEEP Blood Type A POSITIVE Antibody Screen NEGATIVE Crossmatch Leukocyte-Reduced Red Blood Cells Blood Bank Comment Test 07/08/16 07/08/16 07/08/16 07/08/16 05:50 07:20 11:26 19:30 Urine Color YELLOW (YELLW/STRAW) Urine Turbidity CLEAR (CLEAR) Urine pH 5.5 (5.0-8.5) Urine Specific [place] 1.010 (1.002-1.035) Urine Protein TRACE mg/dL (NEG-TRACE) Urine Glucose (UA) NEG mg/dL (NEG) Urine Ketones NEG mg/dL (NEG) Urine Occult Blood MOD (NEG) Urine Nitrite NEG (NEG) Urine Bilirubin NEG (NEG) Urine Urobilinogen LESS THAN 2.0 MG/DL (LESS THAN 2.0) Urine Leukocyte Esterase NEG (NEG) Urine RBC 4 /hpf (0-3) Urine WBC 3 /hpf (0-5) Urine Amorphous Sediment OCC Urine Mucus FEW /lpf (OCC) Microscopic Urinalysis Comment CATH-CULT NOT IND White Blood Count 7.0 TH/MM3 (4.0-11.0) Red Blood Count 2.43 MIL/MM3 (4.50-5.90) Hemoglobin 7.3 GM/DL 8.4 GM/DL (13.0-17.0) (13.0-17.0) Hematocrit 21.6 % 23.8 % (39.0-51.0) (39.0-51.0) Mean Corpuscular Volume 88.9 FL (80.0-100.0) Mean Corpuscular Hemoglobin 30.0 PG (27.0-34.0) Mean Corpuscular Hemoglobin 33.7 % Concent (32.0-36.0) Red Cell Distribution Width 17.2 % (11.6-17.2) Platelet Count 105 TH/MM3 (150-450) Mean Platelet Volume 7.9 FL (7.0-11.0) Sodium Level 133 MEQ/L (136-145) Potassium Level 3.4 MEQ/L 4.3 MEQ/L (3.5-5.1) (3.5-5.1) Chloride Level 93 MEQ/L (98-107) Carbon Dioxide Level 31.6 MEQ/L (21.0-32.0) Anion Gap 8 MEQ/L (5-15) Blood Urea Nitrogen 24 MG/DL (7-18) Creatinine 2.23 MG/DL (0.60-1.30) Estimat Glomerular Filtration 29 ML/MIN (>89) Rate Random Glucose 79 MG/DL (74-106) Calcium Level 7.9 MG/DL (8.5-10.1) Magnesium Level 2.0 MG/DL (1.5-2.5) Phosphorus Level 1.7 MG/DL (2.5-4.9) Test 07/09/16 07/10/16 04:40 12:25 White Blood Count 5.9 TH/MM3 9.3 TH/MM3 (4.0-11.0) (4.0-11.0) Red Blood Count 2.54 MIL/MM3 2.81 MIL/MM3 (4.50-5.90) (4.50-5.90) Hemoglobin 7.8 GM/DL 8.5 GM/DL (13.0-17.0) (13.0-17.0) Hematocrit 22.2 % 25.0 % (39.0-51.0) (39.0-51.0) Mean Corpuscular Volume 87.3 FL 89.2 FL (80.0-100.0) (80.0-100.0) Mean Corpuscular Hemoglobin 30.5 PG 30.3 PG (27.0-34.0) (27.0-34.0) Mean Corpuscular Hemoglobin 35.0 % 34.0 % Concent (32.0-36.0) (32.0-36.0) Red Cell Distribution Width 17.4 % 17.8 % (11.6-17.2) (11.6-17.2) Platelet Count 85 TH/MM3 108 TH/MM3 (150-450) (150-450) Mean Platelet Volume 7.9 FL 7.9 FL (7.0-11.0) (7.0-11.0) Neutrophils (%) (Auto) 72.9 % 81.0 % (16.0-70.0) (16.0-70.0) Lymphocytes (%) (Auto) 14.0 % 5.6 % (9.0-44.0) (9.0-44.0) Monocytes (%) (Auto) 9.0 % (0.0-8.0) 8.0 % (0.0-8.0) Eosinophils (%) (Auto) 3.4 % (0.0-4.0) 4.8 % (0.0-4.0) Basophils (%) (Auto) 0.7 % (0.0-2.0) 0.6 % (0.0-2.0) Neutrophils # (Auto) 4.3 TH/MM3 7.5 TH/MM3 (1.8-7.7) (1.8-7.7) Lymphocytes # (Auto) 0.8 TH/MM3 0.5 TH/MM3 (1.0-4.8) (1.0-4.8) Monocytes # (Auto) 0.5 TH/MM3 0.7 TH/MM3 (0-0.9) (0-0.9) Eosinophils # (Auto) 0.2 TH/MM3 0.4 TH/MM3 (0-0.4) (0-0.4) Basophils # (Auto) 0.0 TH/MM3 0.1 TH/MM3 (0-0.2) (0-0.2) CBC Comment AUTO DIFF DIFF FINAL Differential Comment AUTO DIFF CONFIRMED Platelet Estimate LOW (NORMAL) Platelet Morphology Comment NORMAL (NORMAL) Ovalocytes 1+ (NORMAL) Sodium Level 133 MEQ/L (136-145) Potassium Level 3.7 MEQ/L (3.5-5.1) Chloride Level 94 MEQ/L (98-107) Carbon Dioxide Level 29.8 MEQ/L (21.0-32.0) Anion Gap 9 MEQ/L (5-15) Blood Urea Nitrogen 25 MG/DL (7-18) Creatinine 2.29 MG/DL (0.60-1.30) Estimat Glomerular Filtration 29 ML/MIN (>89) Rate Random Glucose 261 MG/DL (74-106) Calcium Level 7.6 MG/DL (8.5-10.1) Total Bilirubin 0.9 MG/DL (0.2-1.0) Aspartate Amino Transf 20 U/L (15-37) (AST/SGOT) Alanine Aminotransferase 15 U/L (12-78) (ALT/SGPT) Alkaline Phosphatase 84 U/L (45-117) Total Protein 6.2 GM/DL (6.4-8.2) Albumin 2.2 GM/DL (3.4-5.0) . Result Diagram: 07/10/16 1225 07/09/16 0440 Microbiology Microbiology Date/Time Procedure Status Source Growth 07/08/16 00:35 Aerobic Blood Culture - Preliminary Resulted Blood Peripheral NO GROWTH IN 2 DAYS 07/08/16 00:35 Anaerobic Blood Culture - Preliminary Resulted Blood Peripheral NO GROWTH IN 2 DAYS 07/08/16 00:40 Aerobic Blood Culture - Preliminary Resulted Blood Peripheral NO GROWTH IN 2 DAYS 07/08/16 00:40 Anaerobic Blood Culture - Preliminary Resulted Blood Peripheral NO GROWTH IN 2 DAYS 07/08/16 01:25 Gram Stain - Final Resulted Sputum Endotracheal 07/08/16 01:25 Sputum Culture - Preliminary Resulted Gram Negative Wade . Imaging Last Impressions Head CT 07/08/16 0016 Signed Impressions: Service Date/Time: Friday, July 08, 2016 02:22 - CONCLUSION: 1. No acute findings. Mild atrophy. Randy Byrne MD Chest X-Ray 07/08/16 0000 Signed Impressions: Service Date/Time: Friday, July 08, 2016 02:03 - CONCLUSION: 1. Placement of endotracheal tube, nasogastric tube and right central line in satisfactory position. No pneumothorax. Randy Byrne MD Thoracentesis Ultrasound 07/05/16 0600 Signed Impressions: Service Date/Time: June 10:34 - CONCLUSION: Uncomplicated ultrasound guided thoracentesis. Edgar Rice MD Chest CT 07/02/16 0000 Signed Impressions: Service Date/Time: Saturday, July 02, 2016 23:35 - CONCLUSION: 1. Moderate sized bilateral pleural effusions with dense consolidation in both posterior lower lobes. 2. Right upper lobe bronchiectasis with 4 cm mass like area in the right upper lobe. 3. Cardiomegaly with small pericardial effusion. 4. Cirrhotic liver. 5. Mild splenomegaly with multiple varices in the upper left abdomen. Carlos Watts MD Upper Extremity Ultrasound 06/25/16 0000 Signed Impressions: Service Date/Time: Saturday, June 25, 2016 12:29 - CONCLUSION: 1. Occlusive thrombus in the left cephalic vein. 2. No deep venous thrombosis from the right arm.. Pepito Kulkarni MD Renal Ultrasound 06/25/16 0000 Signed Impressions: Service Date/Time: Saturday, June 25, 2016 22:41 - CONCLUSION: 1. Unremarkable kidneys. 2. Small volume ascites. 3. Bilateral pleural effusions. 4. Splenomegaly. Carroll Joel Jr., MD Lung Scan-[facility] Nuclear Medicine 06/25/16 0000 Signed Impressions: Service Date/Time: Saturday, June 25, 2016 08:33 - CONCLUSION: Low probability for pulmonary embolism. Moderate ventilatory defect. Alexy Padron MD FACR . Procedures * Intubation/mechanical ventilation * Right subclavicular central line placement . Assessment and Plan Disease Oriented Problem List: (1) Bilateral pleural effusion (2) Cardiomyopathy Comment: Echocardiogram of 06/25/16 revealed an ejection fraction of 35-40% with no regional wall motion abnormalities. . (3) Pericardial effusion Comment: Echocardiogram of 06/25/16 showed a pericardial effusion. (4) Seizure Comment: Possible seizure activity noted on 07/08/16. Neurology consulted. On levitiracetam. . (5) Acute on chronic renal insufficiency Comment: GFR improved after admission and now is declining again. . (6) Diabetes mellitus Comment: Poorly controlled as an outpatient. Not very compliant with lifestyle recommendations. . (7) Acute respiratory failure with hypoxia Comment: Now tolerating CPAP trials. (8) Cirrhosis (9) Atrial fibrillation (10) GI bleed Comment: Patient had several duodenal ulcers on endoscopy back in April 2016. Required embolization to control GI bleeding. (11) Anemia Comment: Concern for ongoing blood loss. . (12) Hypoalbuminemia (13) Alcohol abuse Symptom Scale: (1) Pain 0-10 Scale: Unable to quantify Comment: Minimally responsive. Unable to qualify/quantify pain. Current sources of pain might include prolonged bedbound status; orotracheal/orogastric intubation; vascular access lines; Donaldson catheter; restraints. . (2) Encephalopathy 0-10 Scale: Unable to quantify Comment: May be some underlying dementia and there may be an element of alcoholic encephalopathy. Workup in place for seizure activity. . (3) Dyspnea 0-10 Scale: Unable to quantify Comment: Currently managed on vent -- tolerating cpap trials at this time. . . Pertinent Non-Medical Issues Psychosocial: Patient's psychosocial support in this area comes primarily from his brother Randy and Randy's who live here. Patient is unmarried, has no children, but does have some close friends in his home state of [place]. Spiritual: Pentecostal and spirituality have not played an important role in his life. Legal: Patient has never completed an advanced directive. Under [place] statutes, his brother, Randy, would be his legal proxy for healthcare decision- making. Randy has accepted this role. Ethical issues impacting care: Patient is currently incapacitated to make his own health care decisions. It is unclear if he will regain capacity. Important Contacts * Randy Gonzalez (brother and health care proxy) [phone] . Prognosis Based on family reports, the patient has been declining physically and cognitively for about a year. There had been weight loss and memory loss. Since his hospitalization here at the end of April he has been unable to truly turn a corner and improve. He had a long ICU stay during the admission in April /May and is now back in the ICU in June requiring mechanical ventilation once again. He has multiple medical problems -- cardiomyopathy; CHF; alcoholic liver disease; recent GI bleed; DM; acute on chronic renal disease; pleural effusions requiring thoracentesis; possible seizure; etc. It is certainly possible that he will get through this acute period yet again, but there is a high likelihood that he will "bounce back" to the hospital before completing rehabilitation. Based on the pre-April trajectory of decline, we can expect ongoing loss of functional status even if the acute problems are addressed. . Code Status: Full Code Plan == Code Status: FULL CODE. Patient's brother, the health care proxy, spoke with brother when last awake/alert, and he feels his brother would want ongoing aggressive care as long as there remains a chance he might improve. == Decision making: Patient is incapacitated to make his own health care decisions at this time and it remains uncertain if he will regain capacity. He has no spouse, no children, no surviving parents. He has one surviving brother -- Randy Gonzalez -- who is local and is the appropriate health care proxy. Randy has been accepting that role. == Goals of medical treatment: As noted above, the brother believes the patient wants ongoing aggressive care as long as the doctors think there is a reasonable chance of recovery. They are hoping he will improve well enough to have another conversation about his own goals and to complete a will. ==Pain: Patient's primary pre-hospital pain syndrome was his knee. Other sources of pain currently could include prolonged bedbound status; edema; restraints; urinary catheter; and vascular access lines. Patient currently on fentanyl/midazolam drips. Pain is controlled. No further recommendations at this time. ==Encephalopathy: Difficult to assess while sedated. Family suggests there was early dementia prior to his hospitalizations. There may be an element of alcoholic encephalopathy. Brother says he was able to hold a relatively normal conversation just days ago. No further recommendations at this time. == Dyspnea: Patient has long history of asthma requiring approximately 2 puffs on an albuterol inhaler daily at baseline. This is his third time requiring mechanical ventilation since April 2016. Dyspnea currently controlled with mechanical ventilation -- currently tolerating CPAP trials. No further recommendations at this time. == Disposition: If /when he recovers from this acute illness, he will need to go to rehab. I think it is unlikely that he will be able to return to independent living. Chances of significant medical setback over the next weeks to months are high. If/when he is awake/alert, we will want to talk about whether or not to transition to "comfort measures only" and hospice should there be another major setback. ==Palliative care will continue to follow to assist with symptom management and to further clarify goals of medical treatment as the clinical course evolves. . Attestation To help prompt me to consider important information that might be impacting today's encounter and assessment, information from prior notes written by myself or my colleagues may have been "brought forward" into today's note. My signature on this note, however, is an attestation that I personally performed the exam, history, and/or decision-making noted today, and, unless otherwise indicated, the interactions with patient, family, and staff as well as the review of records all occurred today. I also attest that the listed assessment and stated plan reflect my best clinical judgment today based on the combination of historical information, prior notes, and today's exam/ interactions. When time spent is documented, it refers only to time spent today by the signer, or if indicated, combined time spent today by collaborating physician/nurse practitioner. . Rod Erazo MD July 10, 2016 13:34
--- NOTE | 2016-07-10 14:07 | RADRPT ---
EXAM DATE/TIME: 07/10/2016 13:32 [facility] COMPARISON: CT BRAIN W/O CONTRAST, July 08, 2016, 2:22. INDICATIONS : Seizures. MEDICAL HISTORY : Diabetes mellitus type 2. Renal insufficiency. SURGICAL HISTORY : Toes amputated. Right knee surgery. ENCOUNTER: Subsequent ACUITY: 1 day PAIN SCORE: Nonresponsive. LOCATION: on vent. TECHNIQUE: Multiplanar, multisequence MRI of the brain was performed without contrast. 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 The ventricles are normal for age. No evidence of midline shift, ma ss lesion, hemorrhage or acute infarction. No extraaxial fluid collections are seen. The pituitary gland and suprasellar cistern are normal in configuration. WHITE MATTER: Scattered foci of bright T2 signal abnormalities are seen in the white matter. POSTERIOR FOSSA: The cerebellum and brainstem are intact. The 4th ventricle is midline. The cerebellopontine angle is unremarkable. The cerebellar tonsils are normal in position. DIFFUSION IMAGING: No focal areas of restricted diffusion are seen. No evidence of acute infarction. EXTRACRANIAL: The visualized portions of the orbits are unremarkable. Scattered sinus disease. CONCLUSION: 1. Nonspecific white matter changes. 2. No acute infarction. 3. Tiny remote right parietal infarct. Pepito Kulkarni MD on July 10, 2016 at 13:59 Board Certified Radiologist. This report was verified electronically.
[2016-07-10] MEDS ORDERED: MIDAZOLAM 100 MG/ML INJ 100 ML IV SCH (16:45)
[2016-07-10] MEDS ORDERED: fentaNYL DRIP 250 ML IV SCH (16:45)
--- NOTE | 2016-07-10 16:51 | HHI.CCPN ---
Subjective Remarks/Hospital Course The patient is a 66-year-old male with a past medical history of diabetes mellitus, bronchial asthma, ETOH use, cirrhosis of the liver, who presented to [facility] ED from a nursing facility for shortness of breath. The patient was recently hospitalized in the end of April, for GI bleed secondary to large duodenal ulcer. In addition he underwent arteriogram and embolization of the right gastric and GDA on May 18. He required multiple blood transfusions, intubation and mechanical ventilation. In addition, the patient had two endoscopies. On arrival to the ED the patient was hypotensive with blood pressure 94/50 and his laboratory data showed mild acute kidney injury with a BUN of 21, creatinine 1.86, lactic acidosis with lactic acid level 3.6 and elevated BNP at 427. In addition, he was found to have elevated D -dimer at 12.28. CT scan of the brain was obtained which showed no atrophy, otherwise no acute intracranial abnormalities. A VQ scan was obtained as well in the ER which showed low probability for pulmonary embolism. His initial chest x-ray from early this morning showed bilateral pleural effusions and patchy bilateral pulmonary infiltrates. Central line was placed by ED physician and a repeat chest x-ray showed right IJ central line in good position , bilateral effusions with bilateral parenchymal densities, right greater than the left. In the ER he was given 2 liters of crystalloids in addition to vancomycin, Zosyn, Solu-Medrol, bronchodilator and Bumex. He was hypotensive in the ER and the patient was placed on Levophed which is currently at three mics. Due to his respiratory distress, the patient was intubated and placed on full mechanical ventilation. When seen he is on Diprivan infusion for sedation. However, the patient is awake, alert and follows commands. ABG post intubation showed a pH of 7.35, CO2 48, pAO2 325, bicarb 26, saturation of 98%. 06/26: Patient is sedated with Diprivan. Afebrile. Off Levophed. 06/27: Extubated 06/26. Of all vasopressors. Currently on nasal cannula. Tolerating diet. Subjective 06/28: Currently complaining of chest discomfort/pleuritic with breathing and shortness of breath. On 4 L nasal cannula. Complaining of difficulty with swallowing. No bowel movement. Up in chair 4 hours yesterday. 07/08 shortly after midnight rapid response team was called for the patient's seizure-like activity. He received Ativan however shortly after seizure and became unresponsive retaining CO2 at 70s. He required endotracheal intubation for airway protection. After intubation patient became hypotensive requiring low dose of Levophed to keep his map above 65 and central line was placed. 07/09: Sedated, orally intubated on mechanical ventilation. Was transfused 1 unit PRBCs yesterday. Remains on Levophed for pressor support. 07/10: Remains encephalopathic off sedation, orally intubated on mechanical ventilation. On Levophed for pressor support. Objective Vital Signs Date Time Temp Pulse Resp B/P Pulse Ox O2 Delivery O2 Flow Rate FiO2 07/10/16 16:14 99 40 07/10/16 16:00 66 07/10/16 12:00 98.3 12 103/53 07/08/16 00:45 Non-Rebreather 15.00 Intake and Output 07/09/16 07/09/16 07/10/16 08:00 16:00 00:00 Intake Total 977 ml 1781 ml 1208 ml Output Total 325.0 ml 285.0 ml 275.0 ml Balance 652.0 ml 1496.0 ml 933.0 ml Result Diagram: 07/10/16 1225 07/10/16 1200 Other Results Laboratory Tests Test 07/10/16 07/10/16 12:00 12:25 Sodium Level 137 MEQ/L Potassium Level 3.5 MEQ/L Chloride Level 98 MEQ/L Carbon Dioxide Level 31.2 MEQ/L Anion Gap 8 MEQ/L Blood Urea Nitrogen 23 MG/DL Creatinine 1.92 MG/DL Estimat Glomerular Filtration 35 ML/MIN Rate Random Glucose 193 MG/DL Calcium Level 8.0 MG/DL Total Bilirubin 0.9 MG/DL Aspartate Amino Transf 21 U/L (AST/SGOT) Alanine Aminotransferase 12 U/L (ALT/SGPT) Alkaline Phosphatase 74 U/L Total Protein 6.6 GM/DL Albumin 2.4 GM/DL White Blood Count 9.3 TH/MM3 Red Blood Count 2.81 MIL/MM3 Hemoglobin 8.5 GM/DL Hematocrit 25.0 % Mean Corpuscular Volume 89.2 FL Mean Corpuscular Hemoglobin 30.3 PG Mean Corpuscular Hemoglobin 34.0 % Concent Red Cell Distribution Width 17.8 % Platelet Count 108 TH/MM3 Mean Platelet Volume 7.9 FL Neutrophils (%) (Auto) 81.0 % Lymphocytes (%) (Auto) 5.6 % Monocytes (%) (Auto) 8.0 % Eosinophils (%) (Auto) 4.8 % Basophils (%) (Auto) 0.6 % Neutrophils # (Auto) 7.5 TH/MM3 Lymphocytes # (Auto) 0.5 TH/MM3 Monocytes # (Auto) 0.7 TH/MM3 Eosinophils # (Auto) 0.4 TH/MM3 Basophils # (Auto) 0.1 TH/MM3 CBC Comment DIFF FINAL Differential Comment Imaging Last 48 hours Impressions Brain MRI 07/10/16 0000 Signed Impressions: Service Date/Time: Sunday, July 10, 2016 13:32 - CONCLUSION: 1. Nonspecific white matter changes. 2. No acute infarction. 3. Tiny remote right parietal infarct. Pepito Kulkarni MD Last Impressions Chest X-Ray 06/28/16 0600 Signed Impressions: Service Date/Time: June 03:31 - CONCLUSION: Unchanged effusions and bibasilar infiltrates/atelectasis. Carroll Joel Jr., MD Upper Extremity Ultrasound 06/25/16 0000 Signed Impressions: Service Date/Time: Saturday, June 25, 2016 12:29 - CONCLUSION: 1. Occlusive thrombus in the left cephalic vein. 2. No deep venous thrombosis from the right arm.. Pepito Kulkarni MD Renal Ultrasound 06/25/16 0000 Signed Impressions: Service Date/Time: Saturday, June 25, 2016 22:41 - CONCLUSION: 1. Unremarkable kidneys. 2. Small volume ascites. 3. Bilateral pleural effusions. 4. Splenomegaly. Carroll Joel Jr., MD Lung Scan-VQ Nuclear Medicine 06/25/16 0000 Signed Impressions: Service Date/Time: Saturday, June 25, 2016 08:33 - CONCLUSION: Low probability for pulmonary embolism. Moderate ventilatory defect. Alexy Padron MD FACR Head CT 06/25/16 0000 Signed Impressions: Service Date/Time: Saturday, June 25, 2016 04:22 - CONCLUSION: 1. Atrophy. 2. No acute intracranial abnormality. Carroll Joel Jr., MD Objective Remarks HEENT/ Neuro: Sedated/ encephalopathic, orally intubated, Pallor present, no icterus, tongue/ mucosa moist Neck: No JVD Chest/Pulm: on mech vent, air entry decreased bilaterally at bases, bilateral rhonchi no wheezing or crackles CVS: S1-S2 regular, no murmur GI/abdomen: soft, nontender, bowel sounds sluggish Extremities: warm bilaterally, no edema A/P Assessment and Plan Neuro/Psych: ETOH History of hepatic encephalopathy Hold Oxycodone for pain management Seizure precautions Head CT negative for bleed/mass Fentanyl and Versed drip for sedation. Daily sedation vacation F/U EEG. Neuro consult for further evaluation of seizure which possibly was related to hypoglycemia. Patient has had ongoing issues with progressive memory problems and possible dementia. Neuro consult noted. 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 No regional wall motion abnormality. PASP [address] Byrne. Not a candidate for left heart catheter/PCI. Recommended Coreg 3.125 twice a day, aspirin 81 mg daily/medical management On amiodarone 200 mg daily Pericardial effusion without tamponade features Hypotension possibly due to over diuresis/sedation for intubation Hold diuretics IV fluids and albumin Levophed to keep map above 65. On 10 mics per minute Resp: Chronic 02 - 1.5 liters Acute hypoxemic respiratory failure. Congestive heart failure/infectious etiology Bronchial asthma Bilateral pleural effusions likely transmitted Intubated for airway protection Continue mechanical ventilation, vent bundle, daily C Pap trials. Bronchodilator therapy every 4 hours and as needed VQ scan admission low probability for pulmonary embolism GI: History of celiac artery embolization left PT secondary to duodenal ulcer 06/04 Gastroesophageal reflux disease Liver cirrhosis with varices Transfused 1 unit PRBCs on 07/08. Follow CBC. Continue Protonix 40 mg by mouth twice a day : BPH Donaldson catheter while on diuretics for accurate I's and O's in a critically ill patient Endo: Diabetes mellitus Elevated intact parathyroid hormone Low vitamin D 25 Patient was intubated for severe hypoglycemia with FS glucose 30s on 07/07. Now hyperglycemic following holding Levemir and switching from high-dose to medium dose sliding scale. Continue NG tube feeds Added NPH 8 units subcutaneously every 12 hourly on 07/09 Renal: Acute on chronic kidney injury Followed by nephrology. Baseline creatinine 1.7. Currently Bumex 1 mg by mouth daily. Avoid nephrotoxic drugs Strict intake output, monitor and replete elect lites, follow BUN/creatinine. Renal ultrasound revealed no hydronephrosis. Heme: Leukocytosis Normocytic anemia Left cephalic vein thrombosis Thrombocytopenia Severe anemia Transfuse 2 units of PRBCs Monitor CBC daily Monitor trends ID: Recently treated left knee osteomyelitis completed therapy vancomycin/Diflucan Community-acquired pneumonia Currently on Zosyn Pertinent cultures Blood cultures 2 - 06/25 - no growth MSK: PT evaluate and treat FEN: Replace electrolytes as clinically indicated Access - Right subclavian placed 07/08 Prophylaxis - GI - Protonix - DVT - SCD/pharmacological prophylaxis held due to GI bleed Prognosis appears poor with advanced cirrhosis, encephalopathy, CHF, respiratory failure, brittle diabetes. Consulted palliative care to assist with deciding goals of therapy. Critical Care: The total care time was 35 minutes. Time to perform other separately billable procedures was not included in the critical care time. Austin Alvarez MD July 10, 2016 16:51
--- NOTE | 2016-07-10 19:27 | HHI.PR ---
Subjective Remarks 66 YOWM with CHF,RF, s/p extubation On Vent Weaned to CPAP On Versed BS better controlled Objective Vital Signs Vital Signs Date Time Temp Pulse Resp B/P Pulse Ox O2 Delivery O2 Flow Rate FiO2 07/10/16 18:00 67 07/10/16 16:14 99 40 07/10/16 16:00 40 07/10/16 16:00 97.9 66 12 117/56 100 07/10/16 16:00 66 07/10/16 14:06 98 50 07/10/16 14:00 67 07/10/16 12:00 40 07/10/16 12:00 98.3 69 12 103/53 100 07/10/16 12:00 69 07/10/16 11:58 100 40 07/10/16 10:00 75 07/10/16 08:01 98 40 07/10/16 08:00 40 07/10/16 08:00 99.1 75 13 97/51 97 07/10/16 08:00 67 07/10/16 07:10 40 07/10/16 06:00 72 07/10/16 04:46 100 40 07/10/16 04:00 40 07/10/16 04:00 99.5 68 18 112/58 100 07/10/16 04:00 68 07/10/16 02:00 66 07/10/16 01:06 100 40 07/10/16 00:00 62 07/10/16 00:00 40 07/10/16 00:00 99.3 62 18 105/55 100 07/09/16 22:00 62 07/09/16 20:23 100 40 07/09/16 20:00 98.8 61 18 116/56 100 07/09/16 20:00 40 07/09/16 20:00 61 I/O 07/09/16 07/09/16 07/09/16 07/10/16 07/10/16 07/10/16 07:00 15:00 23:00 07:00 15:00 23:00 Intake Total 977 ml 1781 ml 1208 ml 1574 ml 1477 ml 50 ml Output Total 325 ml 285 ml 275 ml 250 ml 505.0 ml 0 ml Balance 652 ml 1496 ml 933 ml 1324 ml 972.0 ml 50 ml IV Total 447 ml 635 ml 801 ml 606 ml 777 ml Tube Feeding 230 ml 586 ml 347 ml 408 ml Albumin 500 ml 500 ml 500 ml Other 300 ml 60 ml 60 ml 60 ml 200 ml 50 ml Output Urine Total 325 ml 285 ml 275 ml 250 ml 155 ml Gastric Drainage Total 175 ml Tube Feeding Residual Discard 0 ml 0 ml 0 ml 175.0 ml 0 ml # Bowel Movements 3 2 0 0 0 Result Diagram: 07/10/16 1225 07/10/16 1200 Objective Remarks GENERAL: MBMN WM, mild sob SKIN: Warm and dry. HEAD: Normocephalic. EYES: No scleral icterus. No injection or drainage. NECK: Supple, trachea midline. No JVD or lymphadenopathy. CARDIOVASCULAR: Regular rate and rhythm without murmurs, gallops, or rubs. RESPIRATORY: Breath sounds equal bilaterally. No accessory muscle use. Scattered rales GASTROINTESTINAL: Abdomen soft, non-tender, nondistended. MUSCULOSKELETAL: No cyanosis, or edema. BACK: Nontender without obvious deformity. No CVA tenderness. A/P Assessment and Plan VDRF Pl effusion, s/p right TC DM CHF Anemia Renal insuff PLAN: Vent support Cont Abx Sedation with Versed Aerosol Ashish Klein MD July 10, 2016 19:26
--- NOTE | 2016-07-10 21:47 | MG ---
cc: VIVIANA LOPEZ M.D. Lab No: Date: 07/10/2016 Age: Sex: M Race: ELECTROENCEPHALOGRAM NUMBER [id number] INTRODUCTION A 66-year-old man, intubated. . Cirrhosis. Snoring. MEDICATIONS 1. Piperacillin. 2. Thiamine. 3. Coreg. DESCRIPTION Left leg movement. Right leg movement, just shows muscle artifact. A lot of muscle artifact is seen at the beginning of the recording. Photic stimulation is performed at that time without significant posterior driving. Some diffuse 5 Hz theta slowing is noted at times. IMPRESSION Diffuse theta slowing consistent with mild diffuse encephalopathy. No focal abnormality was noted. No seizure activity was seen. MD KHLOE Mast/SANDOVAL /8:50 PM /9:40 PM
[2016-07-11] VITALS (20 sets, daily range): BP systolic 108–135; BP diastolic 56–62; PULSE 52–80; RESP 14–25; TEMP 97–99.2; O2SAT 96–100
[2016-07-11] MEDS: INSULIN ASPART SUPPLEMENTAL SCALE SQ SCH ×7 (00:14→23:18)
[2016-07-11] MEDS: ALBUMIN HUMAN 5% 25 GM/500 ML BOTTLE IV SCH (01:07)
[2016-07-11] MEDS: RESP: ALBUTEROL 2.5 MG/3 ML NEB (PRN) NEB ×2 (01:18→08:31)
[2016-07-11] MEDS: PIPERACIL-TAZO 3.375 GM PREMIX 50 ML IV SCH ×2 (02:00→08:29)
[2016-07-11] MEDS: CHLORHEXIDINE GLUCONATE 2 % 1 PACK (2 CLOTHS) TOP SCH (04:00)
[2016-07-11 04:36] LABS: AUTOMATED NEUTROPHIL # 3.1 TH/MM3 (1.8-7.7); BASOPHIL % 0.6 % (0.0-2.0); EOSINOPHIL # 0.2 TH/MM3 (0-0.4); EOSINOPHIL % 5.5 % (0.0-4.0); HEMATOCRIT 21.6 % (39.0-51.0); LYMPH % 9.6 % (9.0-44.0); LYMPHOCYTE # 0.4 TH/MM3 (1.0-4.8); MEAN CELL VOLUME 90.2 FL (80.0-100.0); MEAN CORPUSCULAR HEMOGLOBIN 30.1 PG (27.0-34.0); MEAN CORPUSCULAR HGB CONC 33.3 % (32.0-36.0); MONO % 9.8 % (0.0-8.0); NEUT % 74.5 % (16.0-70.0); PLATELET COUNT 61 TH/MM3 (150-450); RED CELL DISTRIBUTION WIDTH 17.3 % (11.6-17.2); WHITE BLOOD COUNT 4.1 TH/MM3 (4.0-11.0)
[2016-07-11 04:37] LABS: HEMO FLAGS AUTO DIFF
[2016-07-11 05:11] LABS: ALT (GPT) 15 U/L (12-78); ANION GAP 7 MEQ/L (5-15); AST (GOT) 21 U/L (15-37); BICARBONATE 30.8 MEQ/L (21.0-32.0); BLOOD UREA NITROGEN 24 MG/DL (7-18); CHLORIDE 100 MEQ/L (98-107); GLOMERULAR FILTRATION RATE 33 ML/MIN (>89); POTASSIUM 3.8 MEQ/L (3.5-5.1); SODIUM (NA) 138 MEQ/L (136-145)
[2016-07-11 05:13] LABS: ALKALINE PHOSPHATASE 81 U/L (45-117); TOTAL BILIRUBIN ADULT 0.7 MG/DL (0.2-1.0)
[2016-07-11 05:19] LABS: SCAN/DIFF AUTO DIFF CONFIRMED
[2016-07-11] MEDS: THIAMINE HCL 100 MG TAB PO SCH (08:28)
[2016-07-11] MEDS: CALCIUM CARBONATE 500 MG CHEWABLE TAB CHEW SCH ×2 (08:28→20:12)
[2016-07-11] MEDS: LACTOBACILLUS ACIDOPHILUS TAB PO SCH ×3 (08:28→16:10)
[2016-07-11] MEDS: BUMETANIDE 1 MG TAB PO SCH (08:28)
[2016-07-11] MEDS: MULTIVITAMIN TAB PO SCH (08:28)
[2016-07-11] MEDS: FOLIC ACID 1 MG TAB PO SCH (08:28)
[2016-07-11] MEDS: PANTOPRAZOLE SODIUM 40 MG VIAL IV PUSH SCH ×2 (08:29→20:12)
[2016-07-11] MEDS: levETIRAcetam INJ 500 MG in SODIUM CHLORIDE 0.9% INJ 100 ML IV SCH ×2 (08:29→20:13)
[2016-07-11] MEDS: LACTULOSE SYRUP 20 GM/30 ML CUP PO SCH ×2 (08:29→20:13)
[2016-07-11] MEDS: NOREPINEPHRINE INJ 4 MG in SODIUM CHLOR 0.9% 250 ML INJ 246 ML IV SCH (08:30)
[2016-07-11] MEDS: BUDESONIDE-FORMOTEROL 80/4.5 MCG INHALER INH SCH ×2 (08:30→20:13)
[2016-07-11] MEDS: NYSTATIN 100,000 U/GM PWD 15 GM BTL TOPICAL SCH ×2 (08:30→21:14)
[2016-07-11] MEDS: ASPIRIN 81 MG CHEW TAB CHEW SCH (09:00)
[2016-07-11] MEDS: CARVEDILOL 3.125 MG TAB PO SCH (09:00)
[2016-07-11] MEDS: AMIODARONE 200 MG TAB PO SCH (09:00)
[2016-07-11] MEDS: MAGNESIUM OXIDE 400 MG TAB PO SCH ×2 (09:00→20:12)
[2016-07-11] MEDS: INSULIN HUMAN NPH 1,000 UNITS/10 ML VIAL SQ SCH ×2 (10:34→21:00)
[2016-07-11] MEDS ORDERED: SODIUM CHLOR 0.9% 250 ML INJ 250 ML IV ONE (11:15)
[2016-07-11] MEDS ORDERED: DEXMEDETOMIDINE INJ 50 ML IV SCH (11:15)
--- NOTE | 2016-07-11 11:38 | HHI.CCPN ---
Subjective Remarks/Hospital Course The patient is a 66-year-old male with a past medical history of diabetes mellitus, bronchial asthma, ETOH use, cirrhosis of the liver, who presented to [facility] ED from a nursing facility for shortness of breath. The patient was recently hospitalized in the end of April, for GI bleed secondary to large duodenal ulcer. In addition he underwent arteriogram and embolization of the right gastric and GDA on May 18. He required multiple blood transfusions, intubation and mechanical ventilation. In addition, the patient had two endoscopies. On arrival to the ED the patient was hypotensive with blood pressure 94/50 and his laboratory data showed mild acute kidney injury with a BUN of 21, creatinine 1.86, lactic acidosis with lactic acid level 3.6 and elevated BNP at 427. In addition, he was found to have elevated D -dimer at 12.28. CT scan of the brain was obtained which showed no atrophy, otherwise no acute intracranial abnormalities. A VQ scan was obtained as well in the ER which showed low probability for pulmonary embolism. His initial chest x-ray from early this morning showed bilateral pleural effusions and patchy bilateral pulmonary infiltrates. Central line was placed by ED physician and a repeat chest x-ray showed right IJ central line in good position , bilateral effusions with bilateral parenchymal densities, right greater than the left. In the ER he was given 2 liters of crystalloids in addition to vancomycin, Zosyn, Solu-Medrol, bronchodilator and Bumex. He was hypotensive in the ER and the patient was placed on Levophed which is currently at three mics. Due to his respiratory distress, the patient was intubated and placed on full mechanical ventilation. When seen he is on Diprivan infusion for sedation. However, the patient is awake, alert and follows commands. ABG post intubation showed a pH of 7.35, CO2 48, pAO2 325, bicarb 26, saturation of 98%. 06/26: Patient is sedated with Diprivan. Afebrile. Off Levophed. 06/27: Extubated 06/26. Of all vasopressors. Currently on nasal cannula. Tolerating diet. Subjective 06/28: Currently complaining of chest discomfort/pleuritic with breathing and shortness of breath. On 4 L nasal cannula. Complaining of difficulty with swallowing. No bowel movement. Up in chair 4 hours yesterday. 07/08 shortly after midnight rapid response team was called for the patient's seizure-like activity. He received Ativan however shortly after seizure and became unresponsive retaining CO2 at 70s. He required endotracheal intubation for airway protection. After intubation patient became hypotensive requiring low dose of Levophed to keep his map above 65 and central line was placed. 07/09: Sedated, orally intubated on mechanical ventilation. Was transfused 1 unit PRBCs yesterday. Remains on Levophed for pressor support. 07/10: Remains encephalopathic off sedation, orally intubated on mechanical ventilation. On Levophed for pressor support. 07/11: still encephalopathic. versed turned off around 5am. Objective Vital Signs Date Time Temp Pulse Resp B/P Pulse Ox O2 Delivery O2 Flow Rate FiO2 07/11/16 10:00 66 07/11/16 08:35 40 07/11/16 08:33 99 07/11/16 08:00 99.2 18 116/56 07/08/16 00:45 Non-Rebreather 15.00 Intake and Output 07/10/16 07/10/16 07/11/16 08:00 16:00 00:00 Intake Total 1574 ml 1477 ml 900 ml Output Total 250.0 ml 505.0 ml 200 ml Balance 1324.0 ml 972.0 ml 700 ml Result Diagram: 07/11/16 0350 07/11/16 0350 Imaging Last 48 hours Impressions Brain MRI 07/10/16 0000 Signed Impressions: Service Date/Time: Sunday, July 10, 2016 13:32 - CONCLUSION: 1. Nonspecific white matter changes. 2. No acute infarction. 3. Tiny remote right parietal infarct. Pepito Kulkarni MD Last Impressions Chest X-Ray 06/28/16 0600 Signed Impressions: Service Date/Time: June 03:31 - CONCLUSION: Unchanged effusions and bibasilar infiltrates/atelectasis. Carroll oJel Jr., MD Upper Extremity Ultrasound 06/25/16 0000 Signed Impressions: Service Date/Time: Saturday, June 25, 2016 12:29 - CONCLUSION: 1. Occlusive thrombus in the left cephalic vein. 2. No deep venous thrombosis from the right arm.. Pepito Kulkarni MD Renal Ultrasound 06/25/16 0000 Signed Impressions: Service Date/Time: Saturday, June 25, 2016 22:41 - CONCLUSION: 1. Unremarkable kidneys. 2. Small volume ascites. 3. Bilateral pleural effusions. 4. Splenomegaly. Carroll Joel Jr., MD Lung Scan-VQ Nuclear Medicine 06/25/16 0000 Signed Impressions: Service Date/Time: Saturday, June 25, 2016 08:33 - CONCLUSION: Low probability for pulmonary embolism. Moderate ventilatory defect. Alexy Padron MD FACR Head CT 06/25/16 Signed Impressions: Service Date/Time: Saturday, June 25, 2016 04:22 - CONCLUSION: 1. Atrophy. 2. No acute intracranial abnormality. Carroll Joel Jr., MD Objective Remarks HEENT/ Neuro: Sedated/ encephalopathic, orally intubated, Pallor present, no icterus, tongue/ mucosa moist Neck: No JVD Chest/Pulm: on mech vent, air entry decreased bilaterally at bases, bilateral rhonchi no wheezing or crackles CVS: S1-S2 regular, no murmur GI/abdomen: soft, nontender, bowel sounds sluggish Extremities: warm bilaterally, no edema A/P Assessment and Plan Assessment: 66yM with etoh cirrhosis, metabolic encephalopathy, acute kidney injury, significant acute on chronic organ dysfunction. He is not improving, and remains critically ill with a very poor prognosis. we will work towards minimizing sedation and improving his mentation. his kidney injury worsens, likely as a result of his critical illness and his chronic ESLD. Neuro/Psych: ETOH History of hepatic encephalopathy d/c versed drip, d/c fentanyl drip we will attempt to control any agitation with haldol 5mg po q4h prn first, and will order precedex as back-up. Seizure precautions Head CT negative for bleed/mass EEG negative for seizure. frequent neuro checks CV: Congestive heart failure - chronic systolic Pericardial effusion Atrial fibrillation Echocardiogram 06/25 revealed ejection fraction 35-40%. No regional wall motion abnormality. PASP [address] Byrne. Not a candidate for left heart catheter/PCI. Recommended Coreg 3.125 twice a day, aspirin 81 mg daily/medical management --will hold carvedilol while on vasopressors. On amiodarone 200 mg daily Pericardial effusion without tamponade features Hypotension likely multifactorial: intravascular volume depletion, ESLD, possible low-grade septic shock. Levophed to keep map above 65. Resp: Chronic 02 - 1.5 liters Acute hypoxemic respiratory failure. Congestive heart failure/infectious etiology Bronchial asthma Bilateral pleural effusions likely transmitted Continue mechanical ventilation, vent bundle, daily C Pap trials. Bronchodilator therapy every 4 hours and as needed VQ scan admission low probability for pulmonary embolism GI: History of celiac artery embolization left PT secondary to duodenal ulcer 06/04 Gastroesophageal reflux disease Liver cirrhosis with varices Transfused 1 unit PRBCs on 07/08. Follow CBC. Continue Protonix 40 mg iv BID TF at goal. : BPH Donaldson catheter while on diuretics for accurate I's and O's in a critically ill patient Endo: Diabetes mellitus Elevated intact parathyroid hormone Low vitamin D 25 Patient was intubated for severe hypoglycemia with FS glucose 30s on 07/07. Now hyperglycemic following holding Levemir and switching from medium dose sliding scale. Continue NG tube feeds Added NPH 8 units subcutaneously every 12 hourly on 07/09 Renal: Acute on chronic kidney injury- worsening. likely multifactorial, intravascular volume depletion, possible combination cardio-renal syndrome, hepato-renal syndrome? Followed by nephrology. Baseline creatinine 1.7. Currently Bumex 1 mg by mouth daily, will d/c this and start concentrated albumin 25% iv q12h with bumex 1mg iv q12h. Avoid nephrotoxic drugs Strict intake output, monitor and replete elect lites, follow BUN/creatinine. Renal ultrasound revealed no hydronephrosis. Heme: Leukocytosis Normocytic anemia Left cephalic vein thrombosis Thrombocytopenia Severe anemia Transfuse 1 unit of PRBCs Monitor CBC daily Monitor trends ID: Recently treated left knee osteomyelitis completed therapy vancomycin/Diflucan Community-acquired pneumonia Currently on Zosyn Pertinent cultures Blood cultures 2 - 06/25 - no growth sputum culture 07/08 growing ESBL enterobacter. will get ID involved for appropriate abx, likely will need carbapenems. MSK: PT evaluate and treat FEN: Replace electrolytes as clinically indicated Access - Right subclavian placed 07/08 Prophylaxis - GI - Protonix - DVT - SCD/pharmacological prophylaxis held due to GI bleed Prognosis appears poor with advanced cirrhosis, encephalopathy, CHF, respiratory failure, brittle diabetes. Consulted palliative care to assist with deciding goals of therapy. Critical Care: The total care time was 52 minutes. Time to perform other separately billable procedures was not included in the critical care time. Jaime Ashley MD July 11, 2016 11:38
[2016-07-11] MEDS ORDERED: HALOPERIDOL LACTATE 5 MG/ML AMP IV PRN (12:00)
--- NOTE | 2016-07-11 12:33 | PD.ID.CON ---
History of Present Illness Service ID Consult Requested By Dr Ashley Reason for Consult ESBL+ Enterobacter i sputum Primary Care Physician Swapnil Griffith MD Diagnoses: History of Present Illness Pt was admitted on 06/25 for SOB 66-year-old male with a past medical history of diabetes mellitus, bronchial asthma, ETOH use, cirrhosis of the liver, presented to [facility] ED from a nursing facility for shortness of breath. The patient was recently hospitalized in the end of April, for GI bleed secondary to large duodenal ulcer (sp arteriogram and embolization of the right gastric and GDA on May 18, multiple blood transfusions, intubation and mechanical ventilation sp two endoscopies) On arrival to the ED the patient was hypotensive with mild acute kidney injury lactic acidosis with lactic acid level 3.6 VQ scan showed low probability for pulmonary embolism. Admission chest x- raywith bilateral pleural effusions and patchy bilateral pulmonary infiltrates. chest CT from 07/02 showed Right upper lobe bronchiectasis with 4 cm mass like area in the right upper lobe. Patient was intubated and placed on mechanical ventilation due to his respiratory distress on first hospiital . He was extubated 2 days later and reintubated on 07/08 after seizure-like activity. In the last few days he remains on vent, on Levophed for pressor support Pt remains encephalopathic off sedation, his MRI of brain today was unremarkable He is remaining on zosyn since June 29 His sputum clx showed MANY GRAM NEGATIVE RODS on [employer] and HEAVY GROWTH ENTEROBACTER CLOACAE (resistance to everything including zosyn and except Imipenem, levaquin) with NO GROWTH NORMAL RESPIRATORY STEVE Pt is sp chest tube placement His most recent CXR showed b/l infiltrates asnd effusions He is having diarrhea while on lactulose He is having large amount of thicck arzola secetions he is having low grade fevers Review of Systems ROS Limitations: Intubated, Altered Mental Status Past Family Social History Allergies: Coded Allergies: *MDRO Multi-Drug Resistant Organism (Verified Adverse Reaction, Unknown, VRE, 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 Social History No Tobacco. + ETOH. 2-6 beers No Illicit Drugs. Physical Exam Vital Signs Vital Signs Date Time Temp Pulse Resp B/P Pulse Ox O2 Delivery O2 Flow Rate FiO2 07/11/16 10:00 66 07/11/16 08:35 40 07/11/16 08:33 99 40 07/11/16 08:00 99.2 65 18 116/56 99 07/11/16 08:00 65 07/11/16 08:00 40 07/11/16 06:00 62 07/11/16 04:00 66 07/11/16 04:00 40 07/11/16 04:00 97.2 66 19 135/60 100 07/11/16 03:19 100 40 07/11/16 02:00 62 07/11/16 01:06 100 40 07/11/16 00:00 40 07/11/16 00:00 97.7 62 25 120/62 99 07/11/16 00:00 62 07/10/16 23:00 40 07/10/16 22:15 99 40 07/10/16 22:00 60 07/10/16 20:00 40 07/10/16 20:00 67 07/10/16 20:00 97.9 68 14 121/61 100 07/10/16 19:34 100 40 07/10/16 18:00 67 07/10/16 16:14 99 40 07/10/16 16:00 40 07/10/16 16:00 97.9 66 12 117/56 100 07/10/16 16:00 66 07/10/16 14:06 98 50 07/10/16 14:00 67 Physical Exam CONSTITUTIONAL/GENERAL: This is an adequately nourished patient, in no apparent distress. TUBES/LINES/DRAINS: SKIN: No jaundice, rashes, or lesions. Skin temperature appropriate. Not diaphoretic. HEAD: Atraumatic. Normocephalic. EYES: Pupils equal and round and reactive. Extraocular motions intact. No scleral icterus. No injection or drainage. Fundi not examined. ENT: Hearing not tested. Nose without bleeding or purulent drainage. Farzaneh mucosae without visible erythema, exudates, masses, or lesions. NECK: Trachea midline. Supple, nontender. No palpable thyroid enlargement or nodularity. CARDIOVASCULAR: Regular rate and rhythm without murmurs, gallops, or rubs. No JVD. Peripheral pulses symmetric. RESPIRATORY/CHEST: Symmetric, unlabored respirations. Clear to auscultation. Breath sounds coarse. No wheezes, rales, or rhonchi. GASTROINTESTINAL: Abdomen soft, non-tender, mildly distended. No hepato- splenomegaly, or palpable masses. No guarding. Bowel sounds present. GENITOURINARY: Without palpable bladder distension. Donaldson catheter in place with clear yellow urine. UOP marginal Edema of scrotum MUSCULOSKELETAL: Extremities without clubbing, cyanosis, 2-3+ edema. No joint tenderness or effusion noted. No calf tenderness. No mottling or clubbing. LYMPHATICS: No palpable cervical or supraclavicular adenopathy. NEUROLOGICAL: obtunded. Not following commads. Not opening eyes to voice Moves all extremities occasopnally spontanoeusly per RN report PSYCHIATRIC:unable to assess Laboratory Laboratory Tests Test 07/10/16 07/11/16 12:25 03:50 White Blood Count 9.3 4.1 Red Blood Count 2.81 2.40 Hemoglobin 8.5 7.2 Hematocrit 25.0 21.6 Mean Corpuscular Volume 89.2 90.2 Mean Corpuscular Hemoglobin 30.3 30.1 Mean Corpuscular Hemoglobin 34.0 33.3 Concent Red Cell Distribution Width 17.8 17.3 Platelet Count 108 61 Mean Platelet Volume 7.9 8.2 Neutrophils (%) (Auto) 81.0 74.5 Lymphocytes (%) (Auto) 5.6 9.6 Monocytes (%) (Auto) 8.0 9.8 Eosinophils (%) (Auto) 4.8 5.5 Basophils (%) (Auto) 0.6 0.6 Neutrophils # (Auto) 7.5 3.1 Lymphocytes # (Auto) 0.5 0.4 Monocytes # (Auto) 0.7 0.4 Eosinophils # (Auto) 0.4 0.2 Basophils # (Auto) 0.1 0.0 CBC Comment DIFF FINAL AUTO DIFF Differential Comment AUTO DIFF CONFIRMED Sodium Level 138 Potassium Level 3.8 Chloride Level 100 Carbon Dioxide Level 30.8 Anion Gap 7 Blood Urea Nitrogen 24 Creatinine 2.03 Estimat Glomerular Filtration 33 Rate Random Glucose 216 Calcium Level 8.2 Magnesium Level 2.3 Total Bilirubin 0.7 Aspartate Amino Transf 21 (AST/SGOT) Alanine Aminotransferase 15 (ALT/SGPT) Alkaline Phosphatase 81 Total Protein 6.5 Albumin 2.8 Date/Time Procedure Status Source Growth 07/08/16 01:25 Gram Stain - Final Complete Sputum Endotracheal 07/08/16 01:25 Sputum Culture - Final Complete Enterobacter Cloacae 07/08/16 00:40 Aerobic Blood Culture - Preliminary Resulted Blood Peripheral NO GROWTH IN 3 DAYS 07/08/16 00:40 Anaerobic Blood Culture - Preliminary Resulted Blood Peripheral NO GROWTH IN 3 DAYS Result Diagram: 07/11/16 0350 07/11/16 0350 Imaging Last Impressions Brain MRI 07/10/16 0000 Signed Impressions: Service Date/Time: Sunday, July 10, 2016 13:32 - CONCLUSION: 1. Nonspecific white matter changes. 2. No acute infarction. 3. Tiny remote right parietal infarct. Pepito Kulkarni MD Head CT 07/08/16 0016 Signed Impressions: Service Date/Time: Friday, July 08, 2016 02:22 - CONCLUSION: 1. No acute findings. Mild atrophy. Randy Byrne MD Chest X-Ray 07/08/16 0000 Signed Impressions: Service Date/Time: Friday, July 08, 2016 02:03 - CONCLUSION: 1. Placement of endotracheal tube, nasogastric tube and right central line in satisfactory position. No pneumothorax. Randy Byrne MD Thoracentesis Ultrasound 07/05/16 0600 Signed Impressions: Service Date/Time: June 10:34 - CONCLUSION: Uncomplicated ultrasound guided thoracentesis. Edgar Rice MD Chest CT 07/02/16 0000 Signed Impressions: Service Date/Time: Saturday, July 02, 2016 23:35 - CONCLUSION: 1. Moderate sized bilateral pleural effusions with dense consolidation in both posterior lower lobes. 2. Right upper lobe bronchiectasis with 4 cm mass like area in the right upper lobe. 3. Cardiomegaly with small pericardial effusion. 4. Cirrhotic liver. 5. Mild splenomegaly with multiple varices in the upper left abdomen. Carlos Watts MD Upper Extremity Ultrasound 06/25/16 0000 Signed Impressions: Service Date/Time: Saturday, June 25, 2016 12:29 - CONCLUSION: 1. Occlusive thrombus in the left cephalic vein. 2. No deep venous thrombosis from the right arm.. Pepito Kulkarni MD Renal Ultrasound 06/25/16 0000 Signed Impressions: Service Date/Time: Saturday, June 25, 2016 22:41 - CONCLUSION: 1. Unremarkable kidneys. 2. Small volume ascites. 3. Bilateral pleural effusions. 4. Splenomegaly. Carroll Joel Jr., MD Lung Scan-V Nuclear Medicine 06/25/16 0000 Signed Impressions: Service Date/Time: Saturday, June 25, 2016 08:33 - CONCLUSION: Low probability for pulmonary embolism. Moderate ventilatory defect. Alexy Padron MD FACR Assessment and Plan Assessment and Plan VDRF - tolarating CPAP today PNA, RUL mass ? [place] - abscess ? CA ? myconbacterial - growing MDRO Enterobacter Metabolic encephalopathy Mult med problems - consider bronch for routine/AFB/fungal clx + cyto - dw Dr Carrington =- pt will be bronched today - dc zosyn - meropenm - will switch to levaquine renally adjusted Discussed Condition With RN Dr Ashley RT Nell Bryson MD July 11, 2016 12:33
[2016-07-11] MEDS: BUMETANIDE INJ 1 MG/4 ML VIAL IV PUSH SCH ×2 (12:48→23:18)
[2016-07-11] MEDS: ALBUMIN HUMAN 25% 25 GM/100 ML BAGP IV SCH ×2 (12:48→23:17)
[2016-07-11] MEDS ORDERED: LEVOFLOXACIN 750 MG PREMIX INJ 150 ML IV SCH (13:00)
--- NOTE | 2016-07-11 16:03 | HHI.PR ---
Subjective Remarks 66 YOWM with CHF,RF, s/p extubation On Vent On Versed BS better controlled Tolerated CPAP4--5 hrs Back on vent Objective Vital Signs Vital Signs Date Time Temp Pulse Resp B/P Pulse Ox O2 Delivery O2 Flow Rate FiO2 07/11/16 15:21 97.0 63 22 131/58 96 07/11/16 14:00 66 07/11/16 13:00 40 07/11/16 12:39 98 40 07/11/16 12:00 40 07/11/16 12:00 98.0 65 22 118/59 97 07/11/16 12:00 65 07/11/16 10:00 66 07/11/16 08:35 40 07/11/16 08:33 99 40 07/11/16 08:00 99.2 65 18 116/56 99 07/11/16 08:00 65 07/11/16 08:00 40 07/11/16 06:00 62 07/11/16 04:00 66 07/11/16 04:00 40 07/11/16 04:00 97.2 66 19 135/60 100 07/11/16 03:19 100 40 07/11/16 02:00 62 07/11/16 01:06 100 40 07/11/16 00:00 40 07/11/16 00:00 97.7 62 25 120/62 99 07/11/16 00:00 62 07/10/16 23:00 40 07/10/16 22:15 99 40 07/10/16 22:00 60 07/10/16 20:00 40 07/10/16 20:00 67 07/10/16 20:00 97.9 68 14 121/61 100 07/10/16 19:34 100 40 07/10/16 18:00 67 07/10/16 16:14 99 40 I/O 07/10/16 07/10/16 07/10/16 07/11/16 07/11/16 07/11/16 07:00 15:00 23:00 07:00 15:00 23:00 Intake Total 1574 ml 1477 ml 900 ml 936 ml 904 ml Output Total 250 ml 505.0 ml 200 ml 150 ml 200 ml Balance 1324 ml 972.0 ml 700 ml 786 ml 704 ml IV Total 606 ml 777 ml 541 ml 414 ml 383 ml Tube Feeding 408 ml 249 ml 402 ml 421 ml Albumin 500 ml 500 ml Other 60 ml 200 ml 110 ml 120 ml 100 ml Output Urine Total 250 ml 155 ml 200 ml 150 ml 200 ml Gastric Drainage Total 175 ml 0 ml 0 ml Tube Feeding Residual Discard 0 ml 175.0 ml 0 ml # Bowel Movements 0 0 2 1 2 Result Diagram: 07/11/1634907/11/16349 Objective Remarks GENERAL: MBMN WM, mild sob SKIN: Warm and dry. HEAD: Normocephalic. EYES: No scleral icterus. No injection or drainage. NECK: Supple, trachea midline. No JVD or lymphadenopathy. CARDIOVASCULAR: Regular rate and rhythm without murmurs, gallops, or rubs. RESPIRATORY: Breath sounds equal bilaterally. No accessory muscle use. Scattered rales GASTROINTESTINAL: Abdomen soft, non-tender, nondistended. MUSCULOSKELETAL: No cyanosis, or edema. BACK: Nontender without obvious deformity. No CVA tenderness. A/P Assessment and Plan VDRF Pl effusion, s/p right TC DM CHF Anemia Renal insuff PLAN: Vent support Cont Abx Sedation with Versed Aerosol Ashish Klein MD July 11, 2016 16:03
[2016-07-11] MEDS ORDERED: PROPOFOL 1000 MG/100 ML INJ 100 ML ONE (17:53)
--- NOTE | 2016-07-11 18:15 | HHI.HCPN ---
Reason for visit a. To assist with evaluation and management of symptoms including: dyspnea , encephalopathy, pain b. To assist medical decision maker(s) with: better understanding of current medical conditions; weighing benefits/burdens of medical treatment options; making medical treatment decisions. . Subjective/Interval History No significant change overnight. Not waking up off sedation. Levophed being weaned. Receiving bumetadine and albumin. Tolerating CPAP trials for hours at a time. Hg was 7.2 and patient is receiving a unit of PRBCs today. Given the 4 cm "mass -like" area in the RUL seen on CT and given the patient is growing Enterobacter out of his sputum, critical care is planning to perform bronchscopy. Have not been able to contact brother for consents. MRI showed non-specific white matter changes. EEG showed theta slowing c/w mild diffuse encephalopathy. Afebrile . BPs / Pulse stable. . Family/friend interactions Attempted to call brother today to update him and let him know about blood transfusion and plans for bronchoscopy. I left message on his voicemail. He never called back. . Advance Directives Living Will: Never completed Health Care Surrogate: Never completed Durable Power of Head Of Marketing Adometry: Never completed Advance Directive Specifics Date completed: There is a scanned community DO NOT RESUSCITATE order on the chart dated . It appears to have been signed by the patient. Health Care Surrogate(s): No known written designation of healthcare surrogate. . Documented care wishes: No known written documentation of health care preferences/goals. . Objective Vital Signs Date Time Temp Pulse Resp B/P Pulse Ox O2 Delivery O2 Flow Rate FiO2 07/11/16 16:49 40 07/11/16 16:33 99 40 07/11/16 15:21 97.0 63 22 131/58 96 07/11/16 14:00 66 07/11/16 13:00 40 07/11/16 12:39 98 40 07/11/16 12:00 40 07/11/16 12:00 98.0 65 22 118/59 97 07/11/16 12:00 65 07/11/16 10:00 66 07/11/16 08:35 40 07/11/16 08:33 99 40 07/11/16 08:00 99.2 65 18 116/56 99 07/11/16 08:00 65 07/11/16 08:00 40 07/11/16 06:00 62 07/11/16 04:00 66 07/11/16 04:00 40 07/11/16 04:00 97.2 66 19 135/60 100 07/11/16 03:19 100 40 07/11/16 02:00 62 07/11/16 01:06 100 40 07/11/16 00:00 40 07/11/16 00:00 97.7 62 25 120/62 99 07/11/16 00:00 62 07/10/16 23:00 40 07/10/16 22:15 99 40 07/10/16 22:00 60 07/10/16 20:00 40 07/10/16 20:00 67 07/10/16 20:00 97.9 68 14 121/61 100 07/10/16 19:34 100 40 07/10/16 18:00 67 Intake & Output 07/11/16 07/11/16 07:00 19:00 Intake Total 1786 ml 904 ml Output Total 350 ml 200 ml Balance 1436 ml 704 ml IV Total 955 ml 383 ml Tube Feeding 651 ml 421 ml Other 180 ml 100 ml Output Urine Total 350 ml 200 ml Gastric Drainage Total 0 ml Tube Feeding Residual Discard 0 ml # Bowel Movements 3 2 . Physical Exam CONSTITUTIONAL/GENERAL: This is an adequately nourished patient, intubated, on CPAP in the SICU. No evidence of distress. Does not arouse to voice/exam. TUBES/LINES/DRAINS: Orotracheal tube; orogastric tube; soft wrist restraints; Donaldson catheter; SCDs; right subclavicular central line; peripheral IV; rectal tube SKIN: No jaundice, rashes, or lesions. Ecchymoses on upper extremities. No wounds seen anteriorly. Skin temperature appropriate. Not diaphoretic. HEAD: Atraumatic. Normocephalic. EYES: Pupils equal and round . Cannot evaluate extraocular movements. No scleral icterus. No injection or drainage. Fundi not examined. ENT: Unable to evaluate hearing due to level or responsiveness. Nose without bleeding or purulent drainage. Throat without visible erythema, exudates, masses , or lesions though oropharynx is difficult to visualize due to intubations NECK: Trachea midline. CARDIOVASCULAR: Regular rate and rhythm without murmurs, gallops, or rubs. No JVD. RESPIRATORY/CHEST: Symmetric, unlabored respirations. Breath sounds equal bilaterally. Bilateral ronchi. No wheezes. GASTROINTESTINAL: Abdomen soft, non-tender, nondistended. No hepato-splenomegaly , or palpable masses. No guarding. Bowel sounds hypoactive. GENITOURINARY: Without palpable bladder distension. Donaldson catheter in place. MUSCULOSKELETAL: Extremities without clubbing, cyanosis. Bilateral lower extremity pitting edema is present. The right great and second toes have been surgically removed. No mottling or clubbing. LYMPHATICS: Not examined. NEUROLOGICAL: Off sedation. Does not awaken to voice/ exam. Does not withdraw to noxious stimuli. No seizure activity noted. PSYCHIATRIC: Unable to assess due to level of sedation and responsiveness . Diagnostic Tests Laboratory Laboratory Tests Test 07/08/16 07/09/16 07/10/16 07/10/16 19:30 04:40 12:00 12:25 Hemoglobin 8.4 GM/DL 7.8 GM/DL 8.5 GM/DL (13.0-17.0) (13.0-17.0) (13.0-17.0) Hematocrit 23.8 % 22.2 % 25.0 % (39.0-51.0) (39.0-51.0) (39.0-51.0) Potassium Level 4.3 MEQ/L 3.7 MEQ/L 3.5 MEQ/L (3.5-5.1) (3.5-5.1) (3.5-5.1) White Blood Count 5.9 TH/MM3 9.3 TH/MM3 (4.0-11.0) (4.0-11.0) Red Blood Count 2.54 MIL/MM3 2.81 MIL/MM3 (4.50-5.90) (4.50-5.90) Mean Corpuscular Volume 87.3 FL 89.2 FL (80.0-100.0) (80.0-100.0) Mean Corpuscular Hemoglobin 30.5 PG 30.3 PG (27.0-34.0) (27.0-34.0) Mean Corpuscular Hemoglobin 35.0 % 34.0 % Concent (32.0-36.0) (32.0-36.0) Red Cell Distribution Width 17.4 % 17.8 % (11.6-17.2) (11.6-17.2) Platelet Count 85 TH/MM3 108 TH/MM3 (150-450) (150-450) Mean Platelet Volume 7.9 FL 7.9 FL (7.0-11.0) (7.0-11.0) Neutrophils (%) (Auto) 72.9 % 81.0 % (16.0-70.0) (16.0-70.0) Lymphocytes (%) (Auto) 14.0 % 5.6 % (9.0-44.0) (9.0-44.0) Monocytes (%) (Auto) 9.0 % (0.0-8.0) 8.0 % (0.0-8.0) Eosinophils (%) (Auto) 3.4 % (0.0-4.0) 4.8 % (0.0-4.0) Basophils (%) (Auto) 0.7 % (0.0-2.0) 0.6 % (0.0-2.0) Neutrophils # (Auto) 4.3 TH/MM3 7.5 TH/MM3 (1.8-7.7) (1.8-7.7) Lymphocytes # (Auto) 0.8 TH/MM3 0.5 TH/MM3 (1.0-4.8) (1.0-4.8) Monocytes # (Auto) 0.5 TH/MM3 0.7 TH/MM3 (0-0.9) (0-0.9) Eosinophils # (Auto) 0.2 TH/MM3 0.4 TH/MM3 (0-0.4) (0-0.4) Basophils # (Auto) 0.0 TH/MM3 0.1 TH/MM3 (0-0.2) (0-0.2) CBC Comment AUTO DIFF DIFF FINAL Differential Comment AUTO DIFF CONFIRMED Platelet Estimate LOW (NORMAL) Platelet Morphology Comment NORMAL (NORMAL) Ovalocytes 1+ (NORMAL) Sodium Level 133 MEQ/L 137 MEQ/L (136-145) (136-145) Chloride Level 94 MEQ/L 98 MEQ/L (98-107) (98-107) Carbon Dioxide Level 29.8 MEQ/L 31.2 MEQ/L (21.0-32.0) (21.0-32.0) Anion Gap 9 MEQ/L (5-15) 8 MEQ/L (5-15) Blood Urea Nitrogen 25 MG/DL (7-18) 23 MG/DL (7-18) Creatinine 2.29 MG/DL 1.92 MG/DL (0.60-1.30) (0.60-1.30) Estimat Glomerular Filtration 29 ML/MIN (>89) 35 ML/MIN (>89) Rate Random Glucose 261 MG/DL 193 MG/DL (74-106) (74-106) Calcium Level 7.6 MG/DL 8.0 MG/DL (8.5-10.1) (8.5-10.1) Total Bilirubin 0.9 MG/DL 0.9 MG/DL (0.2-1.0) (0.2-1.0) Aspartate Amino Transf 20 U/L (15-37) 21 U/L (15-37) (AST/SGOT) Alanine Aminotransferase 15 U/L (12-78) 12 U/L (12-78) (ALT/SGPT) Alkaline Phosphatase 84 U/L (45-117) 74 U/L (45-117) Total Protein 6.2 GM/DL 6.6 GM/DL (6.4-8.2) (6.4-8.2) Albumin 2.2 GM/DL 2.4 GM/DL (3.4-5.0) (3.4-5.0) Test 07/11/16 07/11/16 07/11/16 03:50 11:48 12:15 White Blood Count 4.1 TH/MM3 (4.0-11.0) Red Blood Count 2.40 MIL/MM3 (4.50-5.90) Hemoglobin 7.2 GM/DL (13.0-17.0) Hematocrit 21.6 % (39.0-51.0) Mean Corpuscular Volume 90.2 FL (80.0-100.0) Mean Corpuscular Hemoglobin 30.1 PG (27.0-34.0) Mean Corpuscular Hemoglobin 33.3 % Concent (32.0-36.0) Red Cell Distribution Width 17.3 % (11.6-17.2) Platelet Count 61 TH/MM3 (150-450) Mean Platelet Volume 8.2 FL (7.0-11.0) Neutrophils (%) (Auto) 74.5 % (16.0-70.0) Lymphocytes (%) (Auto) 9.6 % (9.0-44.0) Monocytes (%) (Auto) 9.8 % (0.0-8.0) Eosinophils (%) (Auto) 5.5 % (0.0-4.0) Basophils (%) (Auto) 0.6 % (0.0-2.0) Neutrophils # (Auto) 3.1 TH/MM3 (1.8-7.7) Lymphocytes # (Auto) 0.4 TH/MM3 (1.0-4.8) Monocytes # (Auto) 0.4 TH/MM3 (0-0.9) Eosinophils # (Auto) 0.2 TH/MM3 (0-0.4) Basophils # (Auto) 0.0 TH/MM3 (0-0.2) CBC Comment AUTO DIFF Differential Comment AUTO DIFF CONFIRMED Sodium Level 138 MEQ/L (136-145) Potassium Level 3.8 MEQ/L (3.5-5.1) Chloride Level 100 MEQ/L (98-107) Carbon Dioxide Level 30.8 MEQ/L (21.0-32.0) Anion Gap 7 MEQ/L (5-15) Blood Urea Nitrogen 24 MG/DL (7-18) Creatinine 2.03 MG/DL (0.60-1.30) Estimat Glomerular Filtration 33 ML/MIN (>89) Rate Random Glucose 216 MG/DL (74-106) Calcium Level 8.2 MG/DL (8.5-10.1) Magnesium Level 2.3 MG/DL (1.5-2.5) Total Bilirubin 0.7 MG/DL (0.2-1.0) Aspartate Amino Transf 21 U/L (15-37) (AST/SGOT) Alanine Aminotransferase 15 U/L (12-78) (ALT/SGPT) Alkaline Phosphatase 81 U/L (45-117) Total Protein 6.5 GM/DL (6.4-8.2) Albumin 2.8 GM/DL (3.4-5.0) Blood Type A POSITIVE Antibody Screen NEGATIVE Crossmatch Leukocyte-Reduced Red Blood Cells Blood Bank Comment Ammonia 32 MCMOL/L (11-32) . Result Diagram: 07/11/16 0350 07/11/16 0350 Microbiology Microbiology Date/Time Procedure Status Source Growth 07/08/16 01:25 Gram Stain - Final Complete Sputum Endotracheal 07/08/16 01:25 Sputum Culture - Final Complete Enterobacter Cloacae 07/08/16 00:40 Aerobic Blood Culture - Preliminary Resulted Blood Peripheral NO GROWTH IN 3 DAYS 07/08/16 00:40 Anaerobic Blood Culture - Preliminary Resulted Blood Peripheral NO GROWTH IN 3 DAYS . Imaging Last Impressions Brain MRI 07/10/16 0000 Signed Impressions: Service Date/Time: Sunday, July 10, 2016 13:32 - CONCLUSION: 1. Nonspecific white matter changes. 2. No acute infarction. 3. Tiny remote right parietal infarct. Pepito Kulkarni MD Head CT 07/08/16 0016 Signed Impressions: Service Date/Time: Friday, July 08, 2016 02:22 - CONCLUSION: 1. No acute findings. Mild atrophy. Randy Byrne MD Chest X-Ray 07/08/16 0000 Signed Impressions: Service Date/Time: Friday, July 08, 2016 02:03 - CONCLUSION: 1. Placement of endotracheal tube, nasogastric tube and right central line in satisfactory position. No pneumothorax. Randy Byrne MD Thoracentesis Ultrasound 07/05/16 0600 Signed Impressions: Service Date/Time: June 10:34 - CONCLUSION: Uncomplicated ultrasound guided thoracentesis. Edgar Rice MD Chest CT 07/02/16 0000 Signed Impressions: Service Date/Time: Saturday, July 02, 2016 23:35 - CONCLUSION: 1. Moderate sized bilateral pleural effusions with dense consolidation in both posterior lower lobes. 2. Right upper lobe bronchiectasis with 4 cm mass like area in the right upper lobe. 3. Cardiomegaly with small pericardial effusion. 4. Cirrhotic liver. 5. Mild splenomegaly with multiple varices in the upper left abdomen. Carlos Watts MD Upper Extremity Ultrasound 06/25/16 0000 Signed Impressions: Service Date/Time: Saturday, June 25, 2016 12:29 - CONCLUSION: 1. Occlusive thrombus in the left cephalic vein. 2. No deep venous thrombosis from the right arm.. Pepito Kulkarni MD Renal Ultrasound 06/25/16 0000 Signed Impressions: Service Date/Time: Saturday, June 25, 2016 22:41 - CONCLUSION: 1. Unremarkable kidneys. 2. Small volume ascites. 3. Bilateral pleural effusions. 4. Splenomegaly. Carroll Joel Jr., MD Lung Scan-[facility] 06/25/16 0000 Signed Impressions: Service Date/Time: Saturday, June 25, 2016 08:33 - CONCLUSION: Low probability for pulmonary embolism. Moderate ventilatory defect. Alexy Padron MD FACR . Procedures * Intubation/mechanical ventilation * Right subclavicular central line placement . Other EEG show theta slowing c/w mild diffuse encephalopathy. . Assessment and Plan Disease Oriented Problem List: (1) Bilateral pleural effusion (2) Cardiomyopathy Comment: Echocardiogram of 06/25/16 revealed an ejection fraction of 35-40% with no regional wall motion abnormalities. . (3) Pericardial effusion Comment: Echocardiogram of 06/25/16 showed a pericardial effusion. (4) Seizure Comment: Possible seizure activity noted on 07/08/16. Neurology consulted. On levitiracetam. . (5) Acute on chronic renal insufficiency Comment: GFR improved after admission and now is declining again. . (6) Diabetes mellitus Comment: Poorly controlled as an outpatient. Not very compliant with lifestyle recommendations. . (7) Acute respiratory failure with hypoxia Comment: Now tolerating CPAP trials. (8) Lung mass Comment: CT imaging shows 4 cm mass-like area in RUL. . (9) Cirrhosis (10) Atrial fibrillation (11) GI bleed Comment: Patient had several duodenal ulcers on endoscopy back in April 2016. Required embolization to control GI bleeding. (12) Anemia Comment: Concern for ongoing blood loss. . (13) Hypoalbuminemia (14) Alcohol abuse Symptom Scale: (1) Pain 0-10 Scale: Unable to quantify Comment: Minimally responsive. Unable to qualify/quantify pain. Current sources of pain might include prolonged bedbound status; orotracheal/orogastric intubation; vascular access lines; Donaldson catheter; restraints. . (2) Encephalopathy 0-10 Scale: Unable to quantify Comment: May be some underlying dementia and there may be an element of alcoholic encephalopathy. Workup in place for seizure activity. EEG showing slowing c/w diffust encephalopathy but no nemesio seizure activity. . . (3) Dyspnea 0-10 Scale: Unable to quantify Comment: Currently managed on vent -- tolerating cpap trials at this time. . . Pertinent Non-Medical Issues Psychosocial: Patient's psychosocial support in this area comes primarily from his brother Randy and Randy's who live here. Patient is unmarried, has no children, but does have some close friends in his home state of [place]. Spiritual: Cheondoism and spirituality have not played an important role in his life. Legal: Patient has never completed an advanced directive. Under [place] statutes, his brother, Randy, would be his legal proxy for healthcare decision- making. Randy has accepted this role. Ethical issues impacting care: Patient is currently incapacitated to make his own health care decisions. It is unclear if he will regain capacity. Important Contacts * Randy Gonzalez (brother and health care proxy) [phone] . Prognosis Based on family reports, the patient has been declining physically and cognitively for about a year. There had been weight loss and memory loss. Since his hospitalization here at the end of April he has been unable to truly turn a corner and improve. He had a long ICU stay during the admission in April /May and is now back in the ICU in June requiring mechanical ventilation once again. He has multiple medical problems -- cardiomyopathy; CHF; alcoholic liver disease; recent GI bleed; DM; acute on chronic renal disease; pleural effusions requiring thoracentesis; possible seizure; etc. It is certainly possible that he will get through this acute period yet again, but there is a high likelihood that he will "bounce back" to the hospital before completing rehabilitation. Based on the pre-April trajectory of decline, we can expect ongoing loss of functional status even if the acute problems are addressed. . Code Status: Full Code Plan == Code Status: FULL CODE. Patient's brother, the health care proxy, spoke with brother when last awake/alert, and he feels his brother would want ongoing aggressive care as long as there remains a chance he might improve. == Decision making: Patient is incapacitated to make his own health care decisions at this time and it remains uncertain if he will regain capacity. He has no spouse, no children, no surviving parents. He has one surviving brother -- Randy Gonzalez -- who is local and is the appropriate health care proxy. Randy has been accepting that role. == Goals of medical treatment: As noted above, the brother believes the patient wants ongoing aggressive care as long as the doctors think there is a reasonable chance of recovery. They are hoping he will improve well enough to have another conversation about his own goals and to complete a will. ==Pain: Patient's primary pre-hospital pain syndrome was his knee. Other sources of pain currently could include prolonged bedbound status; edema; restraints; urinary catheter; and vascular access lines. Fentanyl and midazolam drips have been discontinued. No current orders for opiate analgesics. No further recommendations at this time. ==Encephalopathy: Not improving off sedation. Family suggests there was early dementia prior to his hospitalizations. There may be an element of alcoholic encephalopathy. Brother says he was able to hold a relatively normal conversation just days ago. EEG shows theta slowing c/w mild diffuse encephalopathy. No further recommendations at this time. == Dyspnea: Patient has long history of asthma requiring approximately 2 puffs on an albuterol inhaler daily at baseline. This is his third time requiring mechanical ventilation since April 2016. Dyspnea currently controlled with mechanical ventilation -- currently tolerating CPAP trials. No further recommendations at this time. == Disposition: If /when he recovers from this acute illness, he will need to go to rehab. I think it is unlikely that he will be able to return to independent living. Chances of significant medical setback over the next weeks to months are high. If/when he is awake/alert, we will want to talk about whether or not to transition to "comfort measures only" and hospice should there be another major setback. ==Palliative care will continue to follow to assist with symptom management and to further clarify goals of medical treatment as the clinical course evolves. . Attestation To help prompt me to consider important information that might be impacting today's encounter and assessment, information from prior notes written by myself or my colleagues may have been "brought forward" into today's note. My signature on this note, however, is an attestation that I personally performed the exam, history, and/or decision-making noted today, and, unless otherwise indicated, the interactions with patient, family, and staff as well as the review of records all occurred today. I also attest that the listed assessment and stated plan reflect my best clinical judgment today based on the combination of historical information, prior notes, and today's exam/ interactions. When time spent is documented, it refers only to time spent today by the signer, or if indicated, combined time spent today by collaborating physician/nurse practitioner. . Rod Erazo MD July 11, 2016 18:14
--- NOTE | 2016-07-11 20:00 | PD.PROCEDR ---
Procedure Note Procedure Procedure: Diagnostic Fiberoptic Bronchoscopy Diagnosis: Right upper lobe mass Indications: This is a 66-year-old male with new diagnosis of a right upper lobe cavitary-appearing mass. After discussion with infectious disease consult , we need to rule out fungal infection as a cause, and possibly attempt to diagnose whether or not this is malignant. Given the patient's critical illness , lung biopsy is not an option. Thus the only option afforded to us is bronchial washings with AFB, fungal cultures Consent: Written consent was obtained Anesthesia: Propofol IV Description of the Procedure: The patient was sedated and mechanically ventilated. The patient was placed on 100% FIO2 and a volume control mode of ventilation. The fiberoptic bronchoscopy was inserted via 7.5 oral endotracheal tube. The trachea, right and left mainstem bronchi, and sub- segmental bronchi were evaluated. The endobronchial anatomy was normal. Findings: Mild amount of thick yellow/arzola secretions which were suctioned out of the main airways. The proximal scope was then inserted into the right upper lobe and serial high-volume washings were collected for both AFB, fungal, bacterial Gram stain and cultures as well as flow cytology and cytometry. BAL samples: Right upper lobe The patient tolerated the procedure well with no hemodynamic instability or hypoxia. There were no immediate complications noted. At the conclusion of the procedure, the patient was placed back on their pre-procedure ventilatory settings. There was minimal EBL. A chest x-ray has been ordered. I personally performed the procedure. Jaime Ashley MD July 11, 2016 20:00
[2016-07-11] MEDS: ERGOCALCIFEROL (VIT D2) 50,000 UNIT CAP PO SCH (20:13)
[2016-07-11] MEDS: DEXMEDETOMIDINE 200 MCG in NS 50 ML IV SCH ×2 (20:16→23:20)
[2016-07-12] VITALS (20 sets, daily range): BP systolic 95–130; BP diastolic 51–66; PULSE 52–68; RESP 18–30; TEMP 97.7–98.9; O2SAT 92–100
[2016-07-12] MEDS: INSULIN ASPART SUPPLEMENTAL SCALE SQ SCH ×5 (04:35→21:22)
[2016-07-12] MEDS: CHLORHEXIDINE GLUCONATE 2 % 1 PACK (2 CLOTHS) TOP SCH (05:08)
[2016-07-12] MEDS: DEXMEDETOMIDINE 200 MCG in NS 50 ML IV SCH ×4 (05:15→23:01)
[2016-07-12 05:18] LABS: HEMATOCRIT 23.1 % (39.0-51.0); MEAN CELL VOLUME 89.6 FL (80.0-100.0); MEAN CORPUSCULAR HGB CONC 33.5 % (32.0-36.0); PLATELET COUNT 50 TH/MM3 (150-450); RED BLOOD COUNT 2.58 MIL/MM3 (4.50-5.90); RED CELL DISTRIBUTION WIDTH 18.1 % (11.6-17.2); WHITE BLOOD COUNT 3.3 TH/MM3 (4.0-11.0)
[2016-07-12 05:34] LABS: REVIEW FLAG FINAL
[2016-07-12 05:40] LABS: ALKALINE PHOSPHATASE 78 U/L (45-117); ALT (GPT) 14 U/L (12-78); ANION GAP 11 MEQ/L (5-15); AST (GOT) 18 U/L (15-37); BICARBONATE 28.3 MEQ/L (21.0-32.0); BLOOD UREA NITROGEN 28 MG/DL (7-18); CHLORIDE 101 MEQ/L (98-107); GLOMERULAR FILTRATION RATE 29 ML/MIN (>89); MAGNESIUM 2.3 MG/DL (1.5-2.5); POTASSIUM 3.8 MEQ/L (3.5-5.1); SODIUM (NA) 140 MEQ/L (136-145); TOTAL BILIRUBIN ADULT 1.5 MG/DL (0.2-1.0)
[2016-07-12] MEDS: BUDESONIDE-FORMOTEROL 80/4.5 MCG INHALER INH SCH ×2 (09:00→23:44)
[2016-07-12] MEDS: ASPIRIN 81 MG CHEW TAB CHEW SCH ×2 (09:08→09:24)
[2016-07-12] MEDS: LACTULOSE SYRUP 20 GM/30 ML CUP PO SCH ×2 (09:08→21:18)
[2016-07-12] MEDS: LACTOBACILLUS ACIDOPHILUS TAB PO SCH ×3 (09:09→16:42)
[2016-07-12] MEDS: MULTIVITAMIN TAB PO SCH (09:09)
[2016-07-12] MEDS: AMIODARONE 200 MG TAB PO SCH (09:10)
[2016-07-12] MEDS: MAGNESIUM OXIDE 400 MG TAB PO SCH ×2 (09:10→21:18)
[2016-07-12] MEDS: CALCIUM CARBONATE 500 MG CHEWABLE TAB CHEW SCH ×2 (09:10→21:18)
[2016-07-12] MEDS: THIAMINE HCL 100 MG TAB PO SCH (09:10)
[2016-07-12] MEDS: PANTOPRAZOLE SODIUM 40 MG VIAL IV PUSH SCH ×2 (09:11→21:17)
[2016-07-12] MEDS: levETIRAcetam INJ 500 MG in SODIUM CHLORIDE 0.9% INJ 100 ML IV SCH ×2 (09:11→21:18)
[2016-07-12] MEDS: FOLIC ACID 1 MG TAB PO SCH (09:16)
[2016-07-12] MEDS: INSULIN HUMAN NPH 1,000 UNITS/10 ML VIAL SQ SCH ×2 (09:20→21:20)
[2016-07-12] MEDS: NYSTATIN 100,000 U/GM PWD 15 GM BTL TOPICAL SCH ×2 (09:23→21:24)
--- NOTE | 2016-07-12 10:48 | HHI.CCPN ---
Subjective Remarks/Hospital Course The patient is a 66-year-old male with a past medical history of diabetes mellitus, bronchial asthma, ETOH use, cirrhosis of the liver, who presented to [facility] ED from a nursing facility for shortness of breath. The patient was recently hospitalized in the end of April, for GI bleed secondary to large duodenal ulcer. In addition he underwent arteriogram and embolization of the right gastric and GDA on May 18. He required multiple blood transfusions, intubation and mechanical ventilation. In addition, the patient had two endoscopies. On arrival to the ED the patient was hypotensive with blood pressure 94/50 and his laboratory data showed mild acute kidney injury with a BUN of 21, creatinine 1.86, lactic acidosis with lactic acid level 3.6 and elevated BNP at 427. In addition, he was found to have elevated D -dimer at 12.28. CT scan of the brain was obtained which showed no atrophy, otherwise no acute intracranial abnormalities. A VQ scan was obtained as well in the ER which showed low probability for pulmonary embolism. His initial chest x-ray from early this morning showed bilateral pleural effusions and patchy bilateral pulmonary infiltrates. Central line was placed by ED physician and a repeat chest x-ray showed right IJ central line in good position , bilateral effusions with bilateral parenchymal densities, right greater than the left. In the ER he was given 2 liters of crystalloids in addition to vancomycin, Zosyn, Solu-Medrol, bronchodilator and Bumex. He was hypotensive in the ER and the patient was placed on Levophed which is currently at three mics. Due to his respiratory distress, the patient was intubated and placed on full mechanical ventilation. When seen he is on Diprivan infusion for sedation. However, the patient is awake, alert and follows commands. ABG post intubation showed a pH of 7.35, CO2 48, pAO2 325, bicarb 26, saturation of 98%. 06/26: Patient is sedated with Diprivan. Afebrile. Off Levophed. 06/27: Extubated 06/26. Of all vasopressors. Currently on nasal cannula. Tolerating diet. Subjective 06/28: Currently complaining of chest discomfort/pleuritic with breathing and shortness of breath. On 4 L nasal cannula. Complaining of difficulty with swallowing. No bowel movement. Up in chair 4 hours yesterday. 07/08 shortly after midnight rapid response team was called for the patient's seizure-like activity. He received Ativan however shortly after seizure and became unresponsive retaining CO2 at 70s. He required endotracheal intubation for airway protection. After intubation patient became hypotensive requiring low dose of Levophed to keep his map above 65 and central line was placed. 07/09: Sedated, orally intubated on mechanical ventilation. Was transfused 1 unit PRBCs yesterday. Remains on Levophed for pressor support. 07/10: Remains encephalopathic off sedation, orally intubated on mechanical ventilation. On Levophed for pressor support. 07/11: still encephalopathic. versed turned off around 5am. 07/12: less awake today. slightly more hypoxic. not much secretions. ID consulted yesterday, started Levaquin. bronch yesterday to eval RUL mass and cytology sent. gram stain negative for bacteria. Objective Vital Signs Date Time Temp Pulse Resp B/P Pulse Ox O2 Delivery O2 Flow Rate FiO2 07/12/16 10:06 93 50 07/12/16 10:00 60 07/12/16 08:00 98.6 20 101/58 Intake and Output 07/11/16 07/11/16 07/12/16 08:00 16:00 00:00 Intake Total 936 ml 904 ml 680 ml Output Total 150 ml 200 ml 150 ml Balance 786 ml 704 ml 530 ml Result Diagram: 07/12/16 0445 07/12/16 0445 Imaging Last 48 hours Impressions Brain MRI 07/10/16 0000 Signed Impressions: Service Date/Time: Sunday, July 10, 2016 13:32 - CONCLUSION: 1. Nonspecific white matter changes. 2. No acute infarction. 3. Tiny remote right parietal infarct. Pepito Kulkarni MD Last Impressions Chest X-Ray 06/28/16 0600 Signed Impressions: Service Date/Time: June 03:31 - CONCLUSION: Unchanged effusions and bibasilar infiltrates/atelectasis. Carroll Joel Jr., MD Upper Extremity Ultrasound 06/25/16 0000 Signed Impressions: Service Date/Time: Saturday, June 25, 2016 12:29 - CONCLUSION: 1. Occlusive thrombus in the left cephalic vein. 2. No deep venous thrombosis from the right arm.. Pepito Kulkarni MD Renal Ultrasound 06/25/16 0000 Signed Impressions: Service Date/Time: Saturday, June 25, 2016 22:41 - CONCLUSION: 1. Unremarkable kidneys. 2. Small volume ascites. 3. Bilateral pleural effusions. 4. Splenomegaly. Carroll Joel Jr., MD Lung Scan-VQ Nuclear Medicine 06/25/16 0000 Signed Impressions: Service Date/Time: Saturday, June 25, 2016 08:33 - CONCLUSION: Low probability for pulmonary embolism. Moderate ventilatory defect. Alexy Padron MD FACR Head CT 06/25/16 0000 Signed Impressions: Service Date/Time: Saturday, June 25, 2016 04:22 - CONCLUSION: 1. Atrophy. 2. No acute intracranial abnormality. Carroll Joel Jr., MD Objective Remarks HEENT/ Neuro: Sedated/ encephalopathic, orally intubated, Pallor present, no icterus, tongue/ mucosa moist Neck: No JVD Chest/Pulm: on mech vent, air entry decreased bilaterally at bases, bilateral rhonchi no wheezing or crackles CVS: normal rate, regular rhythm. sinus by tele. GI/abdomen: soft, nontender, no guarding. Extremities: warm bilaterally, no edema A/P Assessment and Plan Assessment: 66yM with etoh cirrhosis, metabolic encephalopathy, acute kidney injury, significant acute on chronic organ dysfunction. He is not improving, and remains critically ill with a very poor prognosis. we will work towards minimizing sedation and improving his mentation. his kidney injury worsens despite forced diuresis and concentrated ablumin, likely as a result of his critical illness and his chronic ESLD. Neuro/Psych: ETOH History of hepatic encephalopathy we will attempt to control any agitation with haldol 5mg iv q4h prn first, and will order precedex as back-up. Seizure precautions Head CT negative for bleed/mass EEG negative for seizure. frequent neuro checks start modafinil 200mg daily for hypoactive component of delirium. CV: Congestive heart failure - chronic systolic Pericardial effusion Atrial fibrillation Echocardiogram 06/25 revealed ejection fraction 35-40%. No regional wall motion abnormality. PASP [address] Byrne. Not a candidate for left heart catheter/PCI. Recommended Coreg 3.125 twice a day, aspirin 81 mg daily/medical management --will hold carvedilol while on vasopressors. On amiodarone 200 mg daily Pericardial effusion without tamponade features Hypotension likely multifactorial: intravascular volume depletion, ESLD, possible low-grade septic shock. Resp: Chronic 02 - 1.5 liters Acute hypoxemic respiratory failure. Congestive heart failure/infectious etiology Bronchial asthma Bilateral pleural effusions likely transmitted Continue mechanical ventilation, vent bundle, daily C Pap trials. Bronchodilator therapy every 4 hours and as needed VQ scan admission low probability for pulmonary embolism GI: History of celiac artery embolization left PT secondary to duodenal ulcer 06/04 Gastroesophageal reflux disease Liver cirrhosis with varices Transfused 1 unit PRBCs on 07/08. Follow CBC. Continue Protonix 40 mg iv BID TF at goal. : BPH Donaldson catheter while on diuretics for accurate I's and O's in a critically ill patient Endo: Diabetes mellitus Elevated intact parathyroid hormone Low vitamin D 25 Patient was intubated for severe hypoglycemia with FS glucose 30s on 07/07. Now hyperglycemic following holding Levemir and switching from medium dose sliding scale. Continue NG tube feeds Added NPH 8 units subcutaneously every 12 hourly on 07/09 Renal: Acute on chronic kidney injury- worsening. likely multifactorial, intravascular volume depletion, possible combination cardio-renal syndrome, hepato-renal syndrome? Followed by nephrology. Baseline creatinine 1.7. continue concentrated albumin 25% iv q12h with increase in bumex to 2mg iv q12h. Avoid nephrotoxic drugs Strict intake output, monitor and replete elect lites, follow BUN/creatinine. Renal ultrasound revealed no hydronephrosis. Heme: Leukocytosis Normocytic anemia Left cephalic vein thrombosis Thrombocytopenia Severe anemia Transfuse 1 unit of PRBCs Monitor CBC daily Monitor trends ID: Recently treated left knee osteomyelitis completed therapy vancomycin/Diflucan Community-acquired pneumonia Pertinent cultures Blood cultures 2 - 06/25 - no growth sputum culture 07/08 growing ESBL enterobacter. ID: Dr. Bryson started Levaquin 07/11. bronch 07/11 with cytology and cultures sent for RUL mass. MSK: PT evaluate and treat FEN: Replace electrolytes as clinically indicated Access - Right subclavian placed 07/08. will trend cvp today. Prophylaxis - GI - Protonix - DVT - SCD/pharmacological prophylaxis held due to GI bleed Prognosis appears poor with advanced cirrhosis, encephalopathy, CHF, respiratory failure, brittle diabetes. Consulted palliative care to assist with deciding goals of therapy. Critical Care: The total care time was 41 minutes. Time to perform other separately billable procedures was not included in the critical care time. Jaime Ashley MD July 12, 2016 10:48
--- NOTE | 2016-07-12 11:06 | RADRPT ---
EXAM DATE/TIME: 07/12/2016 10:35 [place] COMPARISON: CHEST SINGLE AP, July 08, 2016, 2:03. INDICATIONS : Cough. MEDICAL HISTORY : Diabetes mellitus type II. Renal insufficiency SURGICAL HISTORY : None. ENCOUNTER: Subsequent ACUITY: 1 day PAIN SCORE: Non-responsive. LOCATION: Bilateral chest FINDINGS: Nasogastric tube tip is in the stomach. Endotracheal tube tip in satisfactory position at level of ao rtic arch. Right central line in superior vena cava. Overlying EKG leads. There is bilateral mostly b asilar airspace disease and pleural effusions similar to July 08. No pneumothorax. CONCLUSION: 1. Support apparatus unchanged. Stable bilateral airspace disease and pleural effusions. Randy Byrne MD on July 12, 2016 at 11:01 Board Certified Radiologist. This report was verified electronically.
[2016-07-12] MEDS ORDERED: ASP: Documented ESBL, MDR A baumannii or P. aeruginosa PRN (12:45)
[2016-07-12] MEDS ORDERED: MISCELLANEOUS PHARMACY INFORMATION XX PRN (12:45)
[2016-07-12] MEDS: ALBUMIN HUMAN 25% 25 GM/100 ML BAGP IV SCH (12:46)
--- NOTE | 2016-07-12 13:34 | HHI.IDPN ---
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 Vital Signs Date Time Temp Pulse Resp B/P Pulse Ox O2 Delivery O2 Flow Rate FiO2 07/12/16 13:18 95 45 07/12/16 10:06 93 50 07/12/16 10:00 60 07/12/16 08:00 68 07/12/16 08:00 40 07/12/16 08:00 98.6 68 20 101/58 95 07/12/16 07:39 93 50 07/12/16 06:00 56 07/12/16 04:06 92 50 07/12/16 04:00 40 07/12/16 04:00 54 07/12/16 04:00 98.9 52 20 102/55 94 07/12/16 02:00 58 07/12/16 01:05 94 40 07/12/16 00:00 52 07/12/16 00:00 40 07/12/16 00:00 97.7 52 18 99/57 94 07/11/16 22:17 96 40 07/11/16 22:00 52 07/11/16 20:20 98 40 07/11/16 20:00 60 07/11/16 20:00 40 07/11/16 20:00 97.9 60 18 108/57 98 07/11/16 18:00 99 100 07/11/16 18:00 60 07/11/16 16:49 40 07/11/16 16:33 99 40 07/11/16 16:00 97.7 80 20 117/59 100 07/11/16 16:00 40 07/11/16 16:00 64 07/11/16 15:21 97.0 63 22 131/58 96 07/11/16 14:00 66 07/11/16 07/11/16 07/12/16 15:00 23:00 07:00 Intake Total 904 ml 680 ml 816 ml Output Total 200 ml 150 ml 75 ml Balance 704 ml 530 ml 741 ml IV Total 383 ml 680 ml 441 ml Tube Feeding 421 ml 375 ml Other 100 ml Output Urine Total 200 ml 150 ml 75 ml # Bowel Movements 2 . Laboratory Tests Test 07/11/16 07/12/16 03:50 04:45 White Blood Count 4.1 TH/MM3 3.3 TH/MM3 Red Blood Count 2.40 MIL/MM3 2.58 MIL/MM3 Hemoglobin 7.2 GM/DL 7.7 GM/DL Hematocrit 21.6 % 23.1 % Mean Corpuscular Volume 90.2 FL 89.6 FL Mean Corpuscular Hemoglobin 30.1 PG 30.0 PG Mean Corpuscular Hemoglobin 33.3 % 33.5 % Concent Red Cell Distribution Width 17.3 % 18.1 % Platelet Count 61 TH/MM3 50 TH/MM3 Mean Platelet Volume 8.2 FL 8.6 FL Neutrophils (%) (Auto) 74.5 % Lymphocytes (%) (Auto) 9.6 % Monocytes (%) (Auto) 9.8 % Eosinophils (%) (Auto) 5.5 % Basophils (%) (Auto) 0.6 % Neutrophils # (Auto) 3.1 TH/MM3 Lymphocytes # (Auto) 0.4 TH/MM3 Monocytes # (Auto) 0.4 TH/MM3 Eosinophils # (Auto) 0.2 TH/MM3 Basophils # (Auto) 0.0 TH/MM3 CBC Comment AUTO DIFF Differential Comment AUTO DIFF CONFIRMED Laboratory Tests Test 07/11/16 07/11/16 07/12/16 03:50 12:15 04:45 Sodium Level 138 MEQ/L 140 MEQ/L Potassium Level 3.8 MEQ/L 3.8 MEQ/L Chloride Level 100 MEQ/L 101 MEQ/L Carbon Dioxide Level 30.8 MEQ/L 28.3 MEQ/L Anion Gap 7 MEQ/L 11 MEQ/L Blood Urea Nitrogen 24 MG/DL 28 MG/DL Creatinine 2.03 MG/DL 2.28 MG/DL Estimat Glomerular Filtration 33 ML/MIN 29 ML/MIN Rate Random Glucose 216 MG/DL 162 MG/DL Calcium Level 8.2 MG/DL 8.5 MG/DL Magnesium Level 2.3 MG/DL 2.3 MG/DL Total Bilirubin 0.7 MG/DL 1.5 MG/DL Aspartate Amino Transf 21 U/L 18 U/L (AST/SGOT) Alanine Aminotransferase 15 U/L 14 U/L (ALT/SGPT) Alkaline Phosphatase 81 U/L 78 U/L Total Protein 6.5 GM/DL 6.4 GM/DL Albumin 2.8 GM/DL 2.8 GM/DL Ammonia 32 MCMOL/L 23 MCMOL/L Microbiology Date/Time Procedure Status Source Growth 07/11/16 18:00 Gram Stain - Final Resulted Bronchial Washings Bronchial 07/11/16 18:00 Bronchial Culture Resulted Bronchial Washings Bronchial Pending 07/11/16 18:00 Acid Fast Stain Received Sputum Endotracheal Pending 07/11/16 18:00 Mycobacterial Culture Received Sputum Endotracheal Pending 07/11/16 18:00 Fungal Smear Received Sputum Endotracheal Pending 07/11/16 18:00 Fungal Culture Received Sputum Endotracheal Pending Imaging Last Impressions Chest X-Ray 07/12/16 0000 Signed Impressions: Service Date/Time: June 10:35 - CONCLUSION: 1. Support apparatus unchanged. Stable bilateral airspace disease and pleural effusions. Randy Byrne MD Brain MRI 07/10/16 0000 Signed Impressions: Service Date/Time: Sunday, July 10, 2016 13:32 - CONCLUSION: 1. Nonspecific white matter changes. 2. No acute infarction. 3. Tiny remote right parietal infarct. Pepito Kulkarni MD Head CT 07/08/16 0016 Signed Impressions: Service Date/Time: Friday, July 08, 2016 02:22 - CONCLUSION: 1. No acute findings. Mild atrophy. Randy Byrne MD Thoracentesis Ultrasound 07/05/16 0600 Signed Impressions: Service Date/Time: June 10:34 - CONCLUSION: Uncomplicated ultrasound guided thoracentesis. Edgar Rice MD Chest CT 07/02/16 0000 Signed Impressions: Service Date/Time: Saturday, July 02, 2016 23:35 - CONCLUSION: 1. Moderate sized bilateral pleural effusions with dense consolidation in both posterior lower lobes. 2. Right upper lobe bronchiectasis with 4 cm mass like area in the right upper lobe. 3. Cardiomegaly with small pericardial effusion. 4. Cirrhotic liver. 5. Mild splenomegaly with multiple varices in the upper left abdomen. Carlos Watts MD Upper Extremity Ultrasound 06/25/16 0000 Signed Impressions: Service Date/Time: Saturday, June 25, 2016 12:29 - CONCLUSION: 1. Occlusive thrombus in the left cephalic vein. 2. No deep venous thrombosis from the right arm.. Pepito Kulkarni MD Renal Ultrasound 06/25/16 0000 Signed Impressions: Service Date/Time: Saturday, June 25, 2016 22:41 - CONCLUSION: 1. Unremarkable kidneys. 2. Small volume ascites. 3. Bilateral pleural effusions. 4. Splenomegaly. Carroll oJel Jr., MD Lung Scan-V Nuclear Medicine 06/25/16 0000 Signed Impressions: Service Date/Time: Saturday, June 25, 2016 08:33 - CONCLUSION: Low probability for pulmonary embolism. Moderate ventilatory defect. Alexy Padron MD FACR Physical Exam CONSTITUTIONAL/GENERAL: This is an adequately nourished patient, in no apparent distress. On vent TUBES/LINES/DRAINS: SKIN: No jaundice, rashes, or lesions. EYES: Pupils equal and round and reactive. Extraocular motions intact. No scleral icterus. No injection or drainage. Fundi not examined. ENT:oral mucosae without visible erythema, exudates, masses, or lesions. CARDIOVASCULAR: Regular rate and rhythm without murmurs, gallops, or rubs. No JVD. Peripheral pulses symmetric. RESPIRATORY/CHEST: Symmetric, unlabored respirations. Diffuse rhonchi and wheez to auscultation. Breath sounds coarse. No wheezes, rales, or rhonchi. GASTROINTESTINAL: Abdomen soft, non-tender, mildly to moderrately distended. No hepato-splenomegaly, or palpable masses. No guarding. Bowel sounds present. GENITOURINARY: Without palpable bladder distension. Donaldson catheter in place with clear yellow urine. UOP marginal Edema of scrotum MUSCULOSKELETAL: Extremities without clubbing, cyanosis, 2-3+ edema. No joint tenderness or effusion noted. No calf tenderness. No mottling or clubbing. NEUROLOGICAL: obtunded. Not following commads. Not opening eyes to voice per RN opens eyes and tracks intermittently Assessment & Plan Remarks VDRF - not tolerating CPAP today - more hypoxic with increased vent requirements PNA, RUL mass ? cavitary - abscess ? CA ? myconbacterial - growing MDRO Enterobacter Metabolic encephalopathy Mult med problems New thrombo and leukopenia noted - sp bronch for routine/AFB/fungal clx + cyto - clx P - will switch to meropenem, renmally adjusted - fu routine/AFB/ fungal clx/ cytology Nell Bryson MD July 12, 2016 13:34
--- NOTE | 2016-07-12 13:46 | HHI.HCPN ---
Reason for visit a. To assist with evaluation and management of symptoms including: dyspnea , encephalopathy, pain b. To assist medical decision maker(s) with: better understanding of current medical conditions; weighing benefits/burdens of medical treatment options; making medical treatment decisions. . Subjective/Interval History Patient will open his eyes to loud voice, but otherwise not interacting and not following commands this AM. I spoke with Dr. Ashley this AM. He tells me the patient was able to follow some basic commands prior to bronchoscopy yesterday evening. Bronchoscopy did not reveal large amounts of thick mucous. There has been no significant improvement in 02 needs since bronchoscopy -- in fact FI02 had to be increased and patient is not on CPAP at time of my visit. Post bronchoscopy cxr essentially unchanged. Not receiving opiates. Nursing pain level scores rated 0-1. Patient with intermittent agitation. Orders for dexmedetomodine and haloperidol in place. Afebrile. VS stable. Hg 7.7. GFR 29. Culture results from bronchoscopy pending. . Family/friend interactions No contact with family/friends today. . Advance Directives Living Will: Never completed Health Care Surrogate: Never completed Durable Power of Building Official: Never completed Advance Directive Specifics Date completed: There is a scanned community DO NOT RESUSCITATE order on the chart dated . It appears to have been signed by the patient. Health Care Surrogate(s): No known written designation of healthcare surrogate. . Documented care wishes: No known written documentation of health care preferences/goals. . Objective Vital Signs Date Time Temp Pulse Resp B/P Pulse Ox O2 Delivery O2 Flow Rate FiO2 07/12/16 13:18 95 45 07/12/16 10:06 93 50 07/12/16 10:00 60 07/12/16 08:00 68 07/12/16 08:00 40 07/12/16 08:00 98.6 68 20 101/58 95 07/12/16 07:39 93 50 07/12/16 06:00 56 07/12/16 04:06 92 50 07/12/16 04:00 40 07/12/16 04:00 54 07/12/16 04:00 98.9 52 20 102/55 94 07/12/16 02:00 58 07/12/16 01:05 94 40 07/12/16 00:00 52 07/12/16 00:00 40 07/12/16 00:00 97.7 52 18 99/57 94 07/11/16 22:17 96 40 07/11/16 22:00 52 07/11/16 20:20 98 40 07/11/16 20:00 60 07/11/16 20:00 40 07/11/16 20:00 97.9 60 18 108/57 98 07/11/16 18:00 99 100 07/11/16 18:00 60 07/11/16 16:49 40 07/11/16 16:33 99 40 07/11/16 16:00 97.7 80 20 117/59 100 07/11/16 16:00 40 07/11/16 16:00 64 07/11/16 15:21 97.0 63 22 131/58 96 07/11/16 14:00 66 Intake & Output 07/12/16 07/12/16 07:00 19:00 Intake Total 1496 ml Output Total 225 ml Balance 1271 ml IV Total 1121 ml Tube Feeding 375 ml Output Urine Total 225 ml . Physical Exam CONSTITUTIONAL/GENERAL: This is an adequately nourished patient, intubated, in the SICU. No evidence of distress. Opens eyes to loud voice, but does not follow commands or interact or track. TUBES/LINES/DRAINS: Orotracheal tube; orogastric tube; soft wrist restraints; Donaldson catheter; SCDs; right subclavicular central line; peripheral IV; rectal tube SKIN: No jaundice, rashes, or lesions. Ecchymoses on upper extremities. No wounds seen anteriorly. Skin temperature appropriate. Not diaphoretic. EYES: Pupils equal and round . Cannot evaluate extraocular movements. No scleral icterus. No injection or drainage. Fundi not examined. ENT: Unable to evaluate hearing due to level of responsiveness. Nose without bleeding or purulent drainage. Throat without visible erythema, exudates, masses , or lesions though oropharynx is difficult to visualize due to intubations NECK: Trachea midline. CARDIOVASCULAR: Regular rate and rhythm without murmurs, gallops, or rubs. No JVD. RESPIRATORY/CHEST: Symmetric, unlabored respirations. Breath sounds equal bilaterally. Bilateral ronchi. No wheezes. GASTROINTESTINAL: Abdomen soft, non-tender, distended. No hepato-splenomegaly, or palpable masses. No guarding. Bowel sounds hypoactive. GENITOURINARY: Without palpable bladder distension. Donaldson catheter in place. Scrotal edema present. MUSCULOSKELETAL: Extremities without clubbing, cyanosis. Bilateral lower extremity pitting edema is present. The right great and second toes have been surgically removed. No mottling or clubbing. LYMPHATICS: Not examined. NEUROLOGICAL: Off sedation. Opens eyes to loud voice but does not track and does not follow commands. Does not withdraw to noxious stimuli. No seizure activity noted. PSYCHIATRIC: Unable to assess due to level of sedation and responsiveness . Diagnostic Tests Laboratory Laboratory Tests Test 07/10/16 07/10/16 07/11/16 07/11/16 12:00 12:25 03:50 11:48 Sodium Level 137 MEQ/L 138 MEQ/L (136-145) (136-145) Potassium Level 3.5 MEQ/L 3.8 MEQ/L (3.5-5.1) (3.5-5.1) Chloride Level 98 MEQ/L 100 MEQ/L (98-107) (98-107) Carbon Dioxide Level 31.2 MEQ/L 30.8 MEQ/L (21.0-32.0) (21.0-32.0) Anion Gap 8 MEQ/L (5-15) 7 MEQ/L (5-15) Blood Urea Nitrogen 23 MG/DL (7-18) 24 MG/DL (7-18) Creatinine 1.92 MG/DL 2.03 MG/DL (0.60-1.30) (0.60-1.30) Estimat Glomerular Filtration 35 ML/MIN (>89) 33 ML/MIN (>89) Rate Random Glucose 193 MG/DL 216 MG/DL (74-106) (74-106) Calcium Level 8.0 MG/DL 8.2 MG/DL (8.5-10.1) (8.5-10.1) Total Bilirubin 0.9 MG/DL 0.7 MG/DL (0.2-1.0) (0.2-1.0) Aspartate Amino Transf 21 U/L (15-37) 21 U/L (15-37) (AST/SGOT) Alanine Aminotransferase 12 U/L (12-78) 15 U/L (12-78) (ALT/SGPT) Alkaline Phosphatase 74 U/L (45-117) 81 U/L (45-117) Total Protein 6.6 GM/DL 6.5 GM/DL (6.4-8.2) (6.4-8.2) Albumin 2.4 GM/DL 2.8 GM/DL (3.4-5.0) (3.4-5.0) White Blood Count 9.3 TH/MM3 4.1 TH/MM3 (4.0-11.0) (4.0-11.0) Red Blood Count 2.81 MIL/MM3 2.40 MIL/MM3 (4.50-5.90) (4.50-5.90) Hemoglobin 8.5 GM/DL 7.2 GM/DL (13.0-17.0) (13.0-17.0) Hematocrit 25.0 % 21.6 % (39.0-51.0) (39.0-51.0) Mean Corpuscular Volume 89.2 FL 90.2 FL (80.0-100.0) (80.0-100.0) Mean Corpuscular Hemoglobin 30.3 PG 30.1 PG (27.0-34.0) (27.0-34.0) Mean Corpuscular Hemoglobin 34.0 % 33.3 % Concent (32.0-36.0) (32.0-36.0) Red Cell Distribution Width 17.8 % 17.3 % (11.6-17.2) (11.6-17.2) Platelet Count 108 TH/MM3 61 TH/MM3 (150-450) (150-450) Mean Platelet Volume 7.9 FL 8.2 FL (7.0-11.0) (7.0-11.0) Neutrophils (%) (Auto) 81.0 % 74.5 % (16.0-70.0) (16.0-70.0) Lymphocytes (%) (Auto) 5.6 % 9.6 % (9.0-44.0) (9.0-44.0) Monocytes (%) (Auto) 8.0 % (0.0-8.0) 9.8 % (0.0-8.0) Eosinophils (%) (Auto) 4.8 % (0.0-4.0) 5.5 % (0.0-4.0) Basophils (%) (Auto) 0.6 % (0.0-2.0) 0.6 % (0.0-2.0) Neutrophils # (Auto) 7.5 TH/MM3 3.1 TH/MM3 (1.8-7.7) (1.8-7.7) Lymphocytes # (Auto) 0.5 TH/MM3 0.4 TH/MM3 (1.0-4.8) (1.0-4.8) Monocytes # (Auto) 0.7 TH/MM3 0.4 TH/MM3 (0-0.9) (0-0.9) Eosinophils # (Auto) 0.4 TH/MM3 0.2 TH/MM3 (0-0.4) (0-0.4) Basophils # (Auto) 0.1 TH/MM3 0.0 TH/MM3 (0-0.2) (0-0.2) CBC Comment DIFF FINAL AUTO DIFF Differential Comment AUTO DIFF CONFIRMED Magnesium Level 2.3 MG/DL (1.5-2.5) Blood Type A POSITIVE Antibody Screen NEGATIVE Crossmatch Leukocyte-Reduced Red Blood Cells Blood Bank Comment Test 07/11/16 07/12/16 12:15 04:45 Ammonia 32 MCMOL/L 23 MCMOL/L (11-32) (11-32) White Blood Count 3.3 TH/MM3 (4.0-11.0) Red Blood Count 2.58 MIL/MM3 (4.50-5.90) Hemoglobin 7.7 GM/DL (13.0-17.0) Hematocrit 23.1 % (39.0-51.0) Mean Corpuscular Volume 89.6 FL (80.0-100.0) Mean Corpuscular Hemoglobin 30.0 PG (27.0-34.0) Mean Corpuscular Hemoglobin 33.5 % Concent (32.0-36.0) Red Cell Distribution Width 18.1 % (11.6-17.2) Platelet Count 50 TH/MM3 (150-450) Mean Platelet Volume 8.6 FL (7.0-11.0) Sodium Level 140 MEQ/L (136-145) Potassium Level 3.8 MEQ/L (3.5-5.1) Chloride Level 101 MEQ/L (98-107) Carbon Dioxide Level 28.3 MEQ/L (21.0-32.0) Anion Gap 11 MEQ/L (5-15) Blood Urea Nitrogen 28 MG/DL (7-18) Creatinine 2.28 MG/DL (0.60-1.30) Estimat Glomerular Filtration 29 ML/MIN (>89) Rate Random Glucose 162 MG/DL (74-106) Calcium Level 8.5 MG/DL (8.5-10.1) Magnesium Level 2.3 MG/DL (1.5-2.5) Total Bilirubin 1.5 MG/DL (0.2-1.0) Aspartate Amino Transf 18 U/L (15-37) (AST/SGOT) Alanine Aminotransferase 14 U/L (12-78) (ALT/SGPT) Alkaline Phosphatase 78 U/L (45-117) Total Protein 6.4 GM/DL (6.4-8.2) Albumin 2.8 GM/DL (3.4-5.0) . Result Diagram: 07/12/16 0445 07/12/16 0445 Microbiology Microbiology Date/Time Procedure Status Source Growth 07/11/16 18:00 Gram Stain - Final Resulted Bronchial Washings Bronchial 07/11/16 18:00 Bronchial Culture Resulted Bronchial Washings Bronchial Pending 07/11/16 18:00 Acid Fast Stain Received Sputum Endotracheal Pending 07/11/16 18:00 Mycobacterial Culture Received Sputum Endotracheal Pending 07/11/16 18:00 Fungal Smear Received Sputum Endotracheal Pending 07/11/16 18:00 Fungal Culture Received Sputum Endotracheal Pending . Imaging Last Impressions Chest X-Ray 07/12/16 0000 Signed Impressions: Service Date/Time: June 10:35 - CONCLUSION: 1. Support apparatus unchanged. Stable bilateral airspace disease and pleural effusions. Randy Byrne MD Brain MRI 07/10/16 0000 Signed Impressions: Service Date/Time: Sunday, July 10, 2016 13:32 - CONCLUSION: 1. Nonspecific white matter changes. 2. No acute infarction. 3. Tiny remote right parietal infarct. Pepito Kulkarni MD Head CT 07/08/16 0016 Signed Impressions: Service Date/Time: Friday, July 08, 2016 02:22 - CONCLUSION: 1. No acute findings. Mild atrophy. Randy Byrne MD Thoracentesis Ultrasound 07/05/16 0600 Signed Impressions: Service Date/Time: June 10:34 - CONCLUSION: Uncomplicated ultrasound guided thoracentesis. Edgar Rice MD Chest CT 07/02/16 0000 Signed Impressions: Service Date/Time: Saturday, July 02, 2016 23:35 - CONCLUSION: 1. Moderate sized bilateral pleural effusions with dense consolidation in both posterior lower lobes. 2. Right upper lobe bronchiectasis with 4 cm mass like area in the right upper lobe. 3. Cardiomegaly with small pericardial effusion. 4. Cirrhotic liver. 5. Mild splenomegaly with multiple varices in the upper left abdomen. Carlos Watts MD Upper Extremity Ultrasound 06/25/16 0000 Signed Impressions: Service Date/Time: Saturday, June 25, 2016 12:29 - CONCLUSION: 1. Occlusive thrombus in the left cephalic vein. 2. No deep venous thrombosis from the right arm.. Pepito Kulkarni MD Renal Ultrasound 06/25/16 0000 Signed Impressions: Service Date/Time: Saturday, June 25, 2016 22:41 - CONCLUSION: 1. Unremarkable kidneys. 2. Small volume ascites. 3. Bilateral pleural effusions. 4. Splenomegaly. Carroll Joel Jr., MD Lung Scan-V Nuclear Medicine 06/25/16 0000 Signed Impressions: Service Date/Time: Saturday, June 25, 2016 08:33 - CONCLUSION: Low probability for pulmonary embolism. Moderate ventilatory defect. Alexy Padron MD FACR . Procedures * Intubation/mechanical ventilation * Right subclavicular central line placement * Bronchoscopy 07/11/16 . Assessment and Plan Disease Oriented Problem List: (1) Bilateral pleural effusion (2) Cardiomyopathy Comment: Echocardiogram of 06/25/16 revealed an ejection fraction of 35-40% with no regional wall motion abnormalities. . (3) Pericardial effusion Comment: Echocardiogram of 06/25/16 showed a pericardial effusion. (4) Seizure Comment: Possible seizure activity noted on 07/08/16. Neurology consulted. On levitiracetam. . (5) Acute on chronic renal insufficiency Comment: GFR improved after admission and now is declining again. . (6) Diabetes mellitus Comment: Poorly controlled as an outpatient. Not very compliant with lifestyle recommendations. . (7) Acute respiratory failure with hypoxia Comment: Now tolerating CPAP trials. (8) Lung mass Comment: CT imaging shows 4 cm mass-like area in RUL. Bronchoscopy of will hopefully help determine if this is infection. . . (9) Cirrhosis (10) Atrial fibrillation (11) GI bleed Comment: Patient had several duodenal ulcers on endoscopy back in April 2016. Required embolization to control GI bleeding. (12) Anemia Comment: Concern for ongoing blood loss. . (13) Hypoalbuminemia (14) Alcohol abuse Symptom Scale: (1) Pain 0-10 Scale: Unable to quantify Comment: Minimally responsive. Unable to qualify/quantify pain. Current sources of pain might include prolonged bedbound status; orotracheal/orogastric intubation; vascular access lines; Donaldson catheter; restraints. . (2) Encephalopathy 0-10 Scale: Unable to quantify Comment: May be some underlying dementia and there may be an element of alcoholic encephalopathy. Workup in place for seizure activity. EEG showing slowing c/w diffust encephalopathy but no nemesio seizure activity. . . (3) Dyspnea 0-10 Scale: Unable to quantify Comment: Currently managed on vent -- tolerating cpap trials intermittently. . . Pertinent Non-Medical Issues Psychosocial: Patient's psychosocial support in this area comes primarily from his brother Randy and Randy's who live here. Patient is unmarried, has no children, but does have some close friends in his home state of [place]. Spiritual: Uatsdin and spirituality have not played an important role in his life. Legal: Patient has never completed an advanced directive. Under [place] statutes, his brother, Randy, would be his legal proxy for healthcare decision- making. Randy has accepted this role. Ethical issues impacting care: Patient is currently incapacitated to make his own health care decisions. It is unclear if he will regain capacity. Important Contacts * Randy Gonzalez (brother and health care proxy) [phone] . Prognosis Based on family reports, the patient has been declining physically and cognitively for about a year. There had been weight loss and memory loss. Since his hospitalization here at the end of April he has been unable to truly turn a corner and improve. He had a long ICU stay during the admission in April /May and is now back in the ICU in June requiring mechanical ventilation once again. He has multiple medical problems -- cardiomyopathy; CHF; alcoholic liver disease; recent GI bleed; DM; acute on chronic renal disease; pleural effusions requiring thoracentesis; possible seizure; etc. It is certainly possible that he will get through this acute period yet again, but there is a high likelihood that he will "bounce back" to the hospital before completing rehabilitation. Based on the pre-April trajectory of decline, we can expect ongoing loss of functional status even if the acute problems are addressed. . Code Status: Full Code Plan == Code Status: FULL CODE. Patient's brother, the health care proxy, spoke with brother when last awake/alert, and he feels his brother would want ongoing aggressive care as long as there remains a chance he might improve. == Decision making: Patient is incapacitated to make his own health care decisions at this time and it remains uncertain if he will regain capacity. He has no spouse, no children, no surviving parents. He has one surviving brother -- Randy Gonzalez -- who is local and is the appropriate health care proxy. Randy has been accepting that role. == Goals of medical treatment: As noted above, the brother believes the patient wants ongoing aggressive care as long as the doctors think there is a reasonable chance of recovery. They are hoping he will improve well enough to have another conversation about his own goals and to complete a will. ==Pain: Patient's primary pre-hospital pain syndrome was his knee. Other sources of pain currently could include prolonged bedbound status; edema; restraints; urinary catheter; and vascular access lines. Fentanyl and midazolam drips have been discontinued. No current orders for opiate analgesics. No further recommendations at this time. ==Encephalopathy: Not improving off sedation. Family suggests there was early dementia prior to his hospitalizations. There may be an element of alcoholic encephalopathy. Brother says he was able to hold a relatively normal conversation just days ago. EEG shows theta slowing c/w mild diffuse encephalopathy. No further recommendations at this time. == Dyspnea: Patient has long history of asthma requiring approximately 2 puffs on an albuterol inhaler daily at baseline. This is his third time requiring mechanical ventilation since April 2016. Dyspnea currently controlled with mechanical ventilation -- intermittently tolerating CPAP trials. Discussed wtih Dr. Ashley -- will need to consider tracheostomy if no improvement by Monday 07/17. This will be another important decision point for brother. == Disposition: If /when he recovers from this acute illness, he will need to go to rehab. I think it is unlikely that he will be able to return to independent living. Chances of significant medical setback over the next weeks to months are high. If/when he is awake/alert, we will want to talk about whether or not to transition to "comfort measures only" and hospice should there be another major setback. ==Palliative care will continue to follow to assist with symptom management and to further clarify goals of medical treatment as the clinical course evolves. . Attestation To help prompt me to consider important information that might be impacting today's encounter and assessment, information from prior notes written by myself or my colleagues may have been "brought forward" into today's note. My signature on this note, however, is an attestation that I personally performed the exam, history, and/or decision-making noted today, and, unless otherwise indicated, the interactions with patient, family, and staff as well as the review of records all occurred today. I also attest that the listed assessment and stated plan reflect my best clinical judgment today based on the combination of historical information, prior notes, and today's exam/ interactions. When time spent is documented, it refers only to time spent today by the signer, or if indicated, combined time spent today by collaborating physician/nurse practitioner. Rod Erazo MD July 12, 2016 13:46
[2016-07-12] MEDS: BUMETANIDE INJ 1 MG/4 ML VIAL IV PUSH SCH (14:07)
[2016-07-12] MEDS: MEROPENEM INJ 1,000 MG in SODIUM CHLORIDE 0.9% INJ 100 ML IV SCH (15:18)
--- NOTE | 2016-07-12 19:03 | HHI.PR ---
Subjective Remarks 66 YOWM with CHF,RF, s/p extubation On Vent On Versed BS better controlled Started on Levaquin On ACV,Fi02 45% Objective Vital Signs Vital Signs Date Time Temp Pulse Resp B/P Pulse Ox O2 Delivery O2 Flow Rate FiO2 07/12/16 18:00 66 07/12/16 16:00 98.4 68 30 120/57 95 07/12/16 16:00 45 07/12/16 16:00 68 07/12/16 15:40 95 45 07/12/16 14:00 65 07/12/16 13:18 95 45 07/12/16 12:00 98.6 56 18 95/51 95 07/12/16 12:00 56 07/12/16 12:00 40 07/12/16 10:06 93 50 07/12/16 10:00 60 07/12/16 08:00 68 07/12/16 08:00 40 07/12/16 08:00 98.6 68 20 101/58 95 07/12/16 07:39 93 50 07/12/16 06:00 56 07/12/16 04:06 92 50 07/12/16 04:00 40 07/12/16 04:00 54 07/12/16 04:00 98.9 52 20 102/55 94 07/12/16 02:00 58 07/12/16 01:05 94 40 07/12/16 00:00 52 07/12/16 00:00 40 07/12/16 00:00 97.7 52 18 99/57 94 07/11/16 22:17 96 40 07/11/16 22:00 52 07/11/16 20:20 98 40 07/11/16 20:00 60 07/11/16 20:00 40 07/11/16 20:00 97.9 60 18 108/57 98 I/O 07/11/16 07/11/16 07/11/16 07/12/16 07/12/16 07/12/16 06:59 14:59 22:59 06:59 14:59 22:59 Intake Total 936 ml 904 ml 680 ml 816 ml 1414 ml Output Total 150 ml 200 ml 150 ml 75 ml 50 ml Balance 786 ml 704 ml 530 ml 741 ml 1364 ml IV Total 414 ml 383 ml 680 ml 441 ml 931 ml Tube Feeding 402 ml 421 ml 375 ml 433 ml Other 120 ml 100 ml 50 ml Output Urine Total 150 ml 200 ml 150 ml 75 ml 50 ml Gastric Drainage Total 0 ml # Bowel Movements 1 2 1 Result Diagram: 07/12/1644407/12/16444 Objective Remarks GENERAL: MBMN WM, mild sob SKIN: Warm and dry. HEAD: Normocephalic. EYES: No scleral icterus. No injection or drainage. NECK: Supple, trachea midline. No JVD or lymphadenopathy. CARDIOVASCULAR: Regular rate and rhythm without murmurs, gallops, or rubs. RESPIRATORY: Breath sounds equal bilaterally. No accessory muscle use. Scattered rales GASTROINTESTINAL: Abdomen soft, non-tender, nondistended. MUSCULOSKELETAL: No cyanosis, or edema. BACK: Nontender without obvious deformity. No CVA tenderness. A/P Assessment and Plan VDRF Pl effusion, s/p right TC DM CHF Anemia Renal insuff PLAN: Vent support Cont Abx Sedation with Versed Aerosol nebs Check bronch cultures Ashish Thorpe MD July 12, 2016 19:03
[2016-07-13] VITALS (19 sets, daily range): BP systolic 87–131; BP diastolic 55–63; PULSE 52–69; RESP 15–35; TEMP 97.6–98.8; O2SAT 93–98
[2016-07-13] MEDS: BUMETANIDE INJ 1 MG/4 ML VIAL IV PUSH SCH ×2 (00:04→12:00)
[2016-07-13] MEDS: ALBUMIN HUMAN 25% 25 GM/100 ML BAGP IV SCH ×2 (00:04→12:17)
[2016-07-13] MEDS: INSULIN ASPART SUPPLEMENTAL SCALE SQ SCH ×6 (00:05→21:35)
[2016-07-13] MEDS: CHLORHEXIDINE GLUCONATE 2 % 1 PACK (2 CLOTHS) TOP SCH (04:00)
[2016-07-13] MEDS: MEROPENEM INJ 1,000 MG in SODIUM CHLORIDE 0.9% INJ 100 ML IV SCH ×2 (04:02→13:18)
[2016-07-13] MEDS: DEXMEDETOMIDINE 200 MCG in NS 50 ML IV SCH ×3 (04:02→12:17)
[2016-07-13 04:53] LABS: HEMATOCRIT 22.6 % (39.0-51.0); MEAN CELL VOLUME 88.5 FL (80.0-100.0); MEAN CORPUSCULAR HEMOGLOBIN 30.5 PG (27.0-34.0); MEAN CORPUSCULAR HGB CONC 34.4 % (32.0-36.0); PLATELET COUNT 50 TH/MM3 (150-450); RED BLOOD COUNT 2.55 MIL/MM3 (4.50-5.90); RED CELL DISTRIBUTION WIDTH 18.1 % (11.6-17.2); WHITE BLOOD COUNT 3.4 TH/MM3 (4.0-11.0)
[2016-07-13 05:09] LABS: REVIEW FLAG FINAL
[2016-07-13 05:29] LABS: ALKALINE PHOSPHATASE 89 U/L (45-117); ALT (GPT) 14 U/L (12-78); ANION GAP 8 MEQ/L (5-15); AST (GOT) 12 U/L (15-37); BICARBONATE 29.5 MEQ/L (21.0-32.0); BLOOD UREA NITROGEN 36 MG/DL (7-18); CHLORIDE 102 MEQ/L (98-107); GLOMERULAR FILTRATION RATE 23 ML/MIN (>89); SODIUM (NA) 139 MEQ/L (136-145); TOTAL BILIRUBIN ADULT 0.8 MG/DL (0.2-1.0)
[2016-07-13] MEDS: BUDESONIDE-FORMOTEROL 80/4.5 MCG INHALER INH SCH ×2 (07:39→21:17)
[2016-07-13] MEDS: CALCIUM CARBONATE 500 MG CHEWABLE TAB CHEW SCH ×2 (07:39→21:15)
[2016-07-13] MEDS: LACTULOSE SYRUP 20 GM/30 ML CUP PO SCH ×2 (08:08→21:15)
[2016-07-13] MEDS: PANTOPRAZOLE SODIUM 40 MG VIAL IV PUSH SCH ×2 (08:08→21:16)
[2016-07-13] MEDS: levETIRAcetam INJ 500 MG in SODIUM CHLORIDE 0.9% INJ 100 ML IV SCH ×2 (08:08→21:16)
[2016-07-13] MEDS: LACTOBACILLUS ACIDOPHILUS TAB PO SCH ×3 (08:09→15:15)
[2016-07-13] MEDS: MULTIVITAMIN TAB PO SCH (08:09)
[2016-07-13] MEDS: ASPIRIN 81 MG CHEW TAB CHEW SCH (08:09)
[2016-07-13] MEDS: FOLIC ACID 1 MG TAB PO SCH (08:09)
[2016-07-13] MEDS: THIAMINE HCL 100 MG TAB PO SCH (08:09)
[2016-07-13] MEDS: INSULIN HUMAN NPH 1,000 UNITS/10 ML VIAL SQ SCH ×2 (08:10→21:35)
[2016-07-13] MEDS: NYSTATIN 100,000 U/GM PWD 15 GM BTL TOPICAL SCH ×2 (08:13→21:17)
[2016-07-13] MEDS: MAGNESIUM OXIDE 400 MG TAB PO SCH ×2 (08:15→21:15)
[2016-07-13] MEDS: AMIODARONE 200 MG TAB PO SCH (08:15)
--- NOTE | 2016-07-13 08:39 | HHI.PR ---
Review/Management Diagnosis/Plan: (1) Encephalopathy Plan: ?metabolic sz vs convulsive syncope 2/2 hypotension/hypercapnia worsening uremia on sedation recs eeg negative for sz's was following on lower dose of sedation per rn will follow peripherally palliative care following (2) Acute on chronic renal insufficiency (3) CHF (congestive heart failure) (4) Cirrhosis (5) Atrial fibrillation Subjective Subjective Comments No acute events reported Active Medications Current Medications Medications (Trade) Dose Ordered Sig/Irene Route Start Time Stop Time Status Last Admin (NS Flush) 2 ml UNSCH PRN IVF 06/25/16 03:30 07/10/16 10:01 (NS Flush) 2 ml UNSCH PRN IVF 06/25/16 03:30 Miscellaneous Information 1 Q361D XX 06/25/16 10:45 06/25/16 10:45 (Chlorhexidine 2% Cloth) Taper DAILY@04 TOP 06/26/16 04:00 06/22/17 03:59 07/13/16 04:00 (Chlorhexidine 2% Cloth) 3 pack UNSCH PRN TOP 06/25/16 10:45 (Aspirin Chew) 81 mg DAILY CHEW 06/25/16 14:00 07/13/16 08:09 (Vitamin B1) 100 mg DAILY PO 06/25/16 15:00 07/13/16 08:09 (Symbicort 80-4.5 Mcg Inh) 2 puff Q12HR INH 06/26/16 23:00 07/12/16 23:44 (Tums Chew) 500 mg BID CHEW 06/27/16 09:00 07/12/16 21:18 (Lactinex) 1 tab TIDAC PO 06/27/16 12:00 07/13/16 08:09 (Lactulose Liq) 30 ml BID PO 06/27/16 09:00 07/13/16 08:08 (Mycostatin Powder) 1 applic Q12HR TOPICAL 06/27/16 09:00 07/13/16 08:13 (Cordarone) 200 mg DAILY PO 06/28/16 09:00 07/13/16 08:15 (Protonix Inj) 40 mg BID IV PUSH 06/27/16 21:00 07/13/16 08:08 (Folate) 1 mg DAILY PO 06/28/16 09:00 07/13/16 08:09 (Theragran) 1 tab DAILY PO 06/28/16 09:00 07/13/16 08:09 (Drisdol) 50,000 units Q7D PO 06/27/16 20:00 07/11/16 20:13 (Coreg) 3.125 mg Q12HR PO 06/28/16 09:00 Hold 07/10/16 20:34 (Mag-Ox) 400 mg Q12HR PO 06/30/16 21:00 07/13/16 08:15 (NovoLOG SUPPLEMENTAL SCALE) 1 Q4HR SQ 07/08/16 20:00 07/13/16 08:00 (D50w (Vial) Inj) 25 ml UNSCH PRN IV 07/08/16 16:45 (Glucagon Inj) 1 mg UNSCH PRN IM/SQ 07/08/16 16:45 Insulin Human NPH 8 units 8 units Q12HR SQ 07/09/16 21:00 07/13/16 08:10 Norepinephrine Bitartrate 4 mg/ Sodium Chloride 250 ml @ 0 mls/hr TITRATE IV 07/10/16 04:05 07/11/16 08:30 (Keppra Inj/NS Inj) 105 ml @ 400 mls/hr Q12H IV 07/10/16 09:00 07/13/16 08:08 (Haldol Inj) 5 mg Q4H PRN IV 07/11/16 12:00 07/11/16 19:32 (Albumin 25% Inj) 25 gm Q12H IV 07/11/16 12:00 07/13/16 00:04 Bumetanide 1 mg 1 mg Q12H IV PUSH 07/11/16 12:00 07/13/16 00:04 Dexmedetomidine HCl 200 mcg/ Sodium Chloride 52 ml @ 0 mls/hr TITRATE IV 07/11/16 21:00 07/13/16 08:10 (Merrem Inj/NS Inj) 100 ml @ 200 mls/hr Q12H IV 07/12/16 14:00 07/13/16 04:02 Allergies Allergies Coded Allergies *MDRO Multi-Drug Resistant Organism (Verified Adverse Reaction, Unknown, VRE, 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) Review of Systems All other ROS: ROS reviewed as documented in chart Exam I&O / VS 07/12/16 07/12/16 07/13/16 15:00 23:00 07:00 Intake Total 1414 ml 785 ml 567 ml Output Total 50 ml 200 ml 150 ml Balance 1364 ml 585 ml 417 ml IV Total 931 ml 382 ml 322 ml Tube Feeding 433 ml 343 ml 155 ml Other 50 ml 60 ml 90 ml Output Urine Total 50 ml 200 ml 150 ml # Bowel Movements 1 0 0 Vital Signs Date Time Temp Pulse Resp B/P Pulse Ox O2 Delivery O2 Flow Rate FiO2 07/13/16 07:45 40 07/13/16 07:38 97 40 07/13/16 06:00 67 07/13/16 04:24 97 40 07/13/16 04:00 98.6 67 30 120/58 96 07/13/16 04:00 50 07/13/16 04:00 67 07/13/16 02:00 58 07/13/16 01:57 95 40 07/13/16 00:00 98.8 69 35 131/63 93 07/13/16 00:00 50 07/13/16 00:00 65 07/12/16 22:11 100 40 07/12/16 22:00 62 07/12/16 20:00 68 07/12/16 20:00 98.7 68 28 130/66 94 07/12/16 20:00 50 07/12/16 19:42 100 40 07/12/16 18:00 66 07/12/16 16:00 98.4 68 30 120/57 95 07/12/16 16:00 45 07/12/16 16:00 68 07/12/16 15:40 95 45 07/12/16 14:00 65 07/12/16 13:18 95 45 07/12/16 12:00 98.6 56 18 95/51 95 07/12/16 12:00 56 07/12/16 12:00 40 07/12/16 10:06 93 50 07/12/16 10:00 60 Exam Comments intubated, on predex, turned up by rn due to agitation, apparently following before per rn, limited ext movements Objective Micro and Labs Laboratory Tests Test 07/13/16 04:35 White Blood Count 3.4 Red Blood Count 2.55 Hemoglobin 7.8 Hematocrit 22.6 Mean Corpuscular Volume 88.5 Mean Corpuscular Hemoglobin 30.5 Mean Corpuscular Hemoglobin 34.4 Concent Red Cell Distribution Width 18.1 Platelet Count 50 Mean Platelet Volume 8.1 Sodium Level 139 Potassium Level 4.0 Chloride Level 102 Carbon Dioxide Level 29.5 Anion Gap 8 Blood Urea Nitrogen 36 Creatinine 2.74 Estimat Glomerular Filtration 23 Rate Random Glucose 331 Calcium Level 8.3 Total Bilirubin 0.8 Aspartate Amino Transf 12 (AST/SGOT) Alanine Aminotransferase 14 (ALT/SGPT) Alkaline Phosphatase 89 Ammonia 21 Total Protein 6.5 Albumin 2.8 Date/Time Procedure Status Source Growth 07/11/16 18:00 Gram Stain - Final Resulted Bronchial Washings Bronchial 07/11/16 18:00 Bronchial Culture - Preliminary Resulted Gram Negative Wade 07/11/16 18:00 Fungal Smear - Final Resulted Sputum Endotracheal NO FUNGAL ELEMENTS SEEN. 07/11/16 18:00 Fungal Culture Resulted Sputum Endotracheal Pending 07/11/16 18:00 Acid Fast Stain Received Sputum Endotracheal Pending 07/11/16 18:00 Mycobacterial Culture Received Sputum Endotracheal Pending Problem Qualifiers (1) CHF (congestive heart failure): (2) Cirrhosis: (3) Atrial fibrillation: Qualified Code: I48.91 - Atrial fibrillation, unspecified type Skyler Carmichael MD July 13, 2016 08:39
--- NOTE | 2016-07-13 10:55 | HHI.HCPN ---
Reason for visit a. To assist with evaluation and management of symptoms including: dyspnea , encephalopathy, pain; agitation b. To assist medical decision maker(s) with: better understanding of current medical conditions; weighing benefits/burdens of medical treatment options; making medical treatment decisions. . Subjective/Interval History Stirs lightly to voice / exam, but does not awaken. Currently on dexemetetomidine for agitation. Last dose of haloperidol was on 07/11/16. Nurse reports that without sedation he was found trying to pull tubes/lines out. Nurse is planning to try weaning the dexmetetomidine. Otherwise, no significant change clinically. Remains intubated, mechanically ventilated. Not receiving opiates. Nursing pain level scores rated 0-1. Critical care, ID, pulmonology, neurology, palliative care all following. Afebrile. 95/55. . Hg 7.78. GFR continues to decline -- 23. Urine output 400 cc. EEGs do not show nemesio seizure activity per neurology. Bronchoscopy bronchial washing culture showing gram neg wade. . . Family/friend interactions Spoke with patient's brother -- the health care proxy-- and spoke by phone for 15 minutes. Updated him on current status and stressed ongoing vent dependency ; prolonged encephalopathy; ongoing infections; periodic need for blood; etc. We discussed likely need for tracheostomy if patient is unable to wean over weekend and ongoing aggressive care is desired. Answered questions. Goals remain aggressive for now. He will be available to discuss tracheostomy decision when necessary. . Advance Directives Living Will: Never completed Health Care Surrogate: Never completed Durable Power of Customer Care Professional: Never completed Advance Directive Specifics Date completed: There is a scanned community DO NOT RESUSCITATE order on the chart dated . It appears to have been signed by the patient. Health Care Surrogate(s): No known written designation of healthcare surrogate. . Documented care wishes: No known written documentation of health care preferences/goals. . Objective Vital Signs Date Time Temp Pulse Resp B/P Pulse Ox O2 Delivery O2 Flow Rate FiO2 07/13/16 10:00 54 07/13/16 08:00 97.9 67 18 95/55 96 07/13/16 08:00 67 07/13/16 08:00 50 07/13/16 07:45 40 07/13/16 07:38 97 40 07/13/16 06:00 67 07/13/16 04:24 97 40 07/13/16 04:00 98.6 67 30 120/58 96 07/13/16 04:00 50 07/13/16 04:00 67 07/13/16 02:00 58 07/13/16 01:57 95 40 07/13/16 00:00 98.8 69 35 131/63 93 07/13/16 00:00 50 07/13/16 00:00 65 07/12/16 22:11 100 40 07/12/16 22:00 62 07/12/16 20:00 68 07/12/16 20:00 98.7 68 28 130/66 94 07/12/16 20:00 50 07/12/16 19:42 100 40 07/12/16 18:00 66 07/12/16 16:00 98.4 68 30 120/57 95 07/12/16 16:00 45 07/12/16 16:00 68 07/12/16 15:40 95 45 07/12/16 14:00 65 07/12/16 13:18 95 45 07/12/16 12:00 98.6 56 18 95/51 95 07/12/16 12:00 56 07/12/16 12:00 40 Intake & Output 07/13/16 07/13/16 07:00 19:00 Intake Total 1352 ml Output Total 350 ml Balance 1002 ml IV Total 704 ml Tube Feeding 498 ml Other 150 ml Output Urine Total 350 ml # Bowel Movements 0 . Physical Exam CONSTITUTIONAL/GENERAL: This is an adequately nourished patient, intubated, in the SICU. Sedated with dexemetetomidine No evidence of distress. Stirs slightly to loud voice/exam, but does not awaken. TUBES/LINES/DRAINS: Orotracheal tube; orogastric tube; soft wrist restraints; Donaldson catheter; SCDs; right subclavicular central line; peripheral IV; rectal tube SKIN: No jaundice, rashes, or lesions. Ecchymoses on upper extremities. No wounds seen anteriorly. Skin temperature appropriate. Not diaphoretic. EYES: Pupils equal and round . Constricted. Cannot evaluate extraocular movements-- doesn't track. No scleral icterus. No injection or drainage. Fundi not examined. ENT: Unable to evaluate hearing due to level of responsiveness. Nose without bleeding or purulent drainage. Throat without visible erythema, exudates, masses , or lesions though oropharynx is difficult to visualize due to intubations NECK: Trachea midline. CARDIOVASCULAR: Regular rate (borderline bradycardia) and rhythm without murmurs, gallops, or rubs. No JVD. RESPIRATORY/CHEST: Symmetric, unlabored respirations. Breath sounds equal bilaterally. Bilateral ronchi. No wheezes. GASTROINTESTINAL: Abdomen moderately tense, non-tender, distended. No hepato- splenomegaly, or palpable masses but difficult to palpate due to level of distension. No guarding. Bowel sounds hypoactive. GENITOURINARY: Without palpable bladder distension. Donaldson catheter in place. Significnat scrotal edema present. MUSCULOSKELETAL: Extremities without clubbing, cyanosis. Bilateral upper extremity pitting edema is present. The right great and second toes have been surgically removed. No mottling or clubbing. LYMPHATICS: Not examined. NEUROLOGICAL: On dexmetetomidine. Stirs to loud voice/exam but does not awaken. Does not withdraw to noxious stimuli. No seizure activity noted. PSYCHIATRIC: Unable to assess due to level of sedation and responsiveness . Diagnostic Tests Laboratory Laboratory Tests Test 07/10/16 07/10/16 07/11/16 07/11/16 12:00 12:25 03:50 11:48 Sodium Level 137 MEQ/L 138 MEQ/L (136-145) (136-145) Potassium Level 3.5 MEQ/L 3.8 MEQ/L (3.5-5.1) (3.5-5.1) Chloride Level 98 MEQ/L 100 MEQ/L (98-107) (98-107) Carbon Dioxide Level 31.2 MEQ/L 30.8 MEQ/L (21.0-32.0) (21.0-32.0) Anion Gap 8 MEQ/L (5-15) 7 MEQ/L (5-15) Blood Urea Nitrogen 23 MG/DL (7-18) 24 MG/DL (7-18) Creatinine 1.92 MG/DL 2.03 MG/DL (0.60-1.30) (0.60-1.30) Estimat Glomerular Filtration 35 ML/MIN (>89) 33 ML/MIN (>89) Rate Random Glucose 193 MG/DL 216 MG/DL (74-106) (74-106) Calcium Level 8.0 MG/DL 8.2 MG/DL (8.5-10.1) (8.5-10.1) Total Bilirubin 0.9 MG/DL 0.7 MG/DL (0.2-1.0) (0.2-1.0) Aspartate Amino Transf 21 U/L (15-37) 21 U/L (15-37) (AST/SGOT) Alanine Aminotransferase 12 U/L (12-78) 15 U/L (12-78) (ALT/SGPT) Alkaline Phosphatase 74 U/L (45-117) 81 U/L (45-117) Total Protein 6.6 GM/DL 6.5 GM/DL (6.4-8.2) (6.4-8.2) Albumin 2.4 GM/DL 2.8 GM/DL (3.4-5.0) (3.4-5.0) White Blood Count 9.3 TH/MM3 4.1 TH/MM3 (4.0-11.0) (4.0-11.0) Red Blood Count 2.81 MIL/MM3 2.40 MIL/MM3 (4.50-5.90) (4.50-5.90) Hemoglobin 8.5 GM/DL 7.2 GM/DL (13.0-17.0) (13.0-17.0) Hematocrit 25.0 % 21.6 % (39.0-51.0) (39.0-51.0) Mean Corpuscular Volume 89.2 FL 90.2 FL (80.0-100.0) (80.0-100.0) Mean Corpuscular Hemoglobin 30.3 PG 30.1 PG (27.0-34.0) (27.0-34.0) Mean Corpuscular Hemoglobin 34.0 % 33.3 % Concent (32.0-36.0) (32.0-36.0) Red Cell Distribution Width 17.8 % 17.3 % (11.6-17.2) (11.6-17.2) Platelet Count 108 TH/MM3 61 TH/MM3 (150-450) (150-450) Mean Platelet Volume 7.9 FL 8.2 FL (7.0-11.0) (7.0-11.0) Neutrophils (%) (Auto) 81.0 % 74.5 % (16.0-70.0) (16.0-70.0) Lymphocytes (%) (Auto) 5.6 % 9.6 % (9.0-44.0) (9.0-44.0) Monocytes (%) (Auto) 8.0 % (0.0-8.0) 9.8 % (0.0-8.0) Eosinophils (%) (Auto) 4.8 % (0.0-4.0) 5.5 % (0.0-4.0) Basophils (%) (Auto) 0.6 % (0.0-2.0) 0.6 % (0.0-2.0) Neutrophils # (Auto) 7.5 TH/MM3 3.1 TH/MM3 (1.8-7.7) (1.8-7.7) Lymphocytes # (Auto) 0.5 TH/MM3 0.4 TH/MM3 (1.0-4.8) (1.0-4.8) Monocytes # (Auto) 0.7 TH/MM3 0.4 TH/MM3 (0-0.9) (0-0.9) Eosinophils # (Auto) 0.4 TH/MM3 0.2 TH/MM3 (0-0.4) (0-0.4) Basophils # (Auto) 0.1 TH/MM3 0.0 TH/MM3 (0-0.2) (0-0.2) CBC Comment DIFF FINAL AUTO DIFF Differential Comment AUTO DIFF CONFIRMED Magnesium Level 2.3 MG/DL (1.5-2.5) Blood Type A POSITIVE Antibody Screen NEGATIVE Crossmatch Leukocyte-Reduced Red Blood Cells Blood Bank Comment Test 07/11/16 07/12/16 07/13/16 12:15 04:45 04:35 Ammonia 32 MCMOL/L 23 MCMOL/L 21 MCMOL/L (11-32) (11-32) (11-32) White Blood Count 3.3 TH/MM3 3.4 TH/MM3 (4.0-11.0) (4.0-11.0) Red Blood Count 2.58 MIL/MM3 2.55 MIL/MM3 (4.50-5.90) (4.50-5.90) Hemoglobin 7.7 GM/DL 7.8 GM/DL (13.0-17.0) (13.0-17.0) Hematocrit 23.1 % 22.6 % (39.0-51.0) (39.0-51.0) Mean Corpuscular Volume 89.6 FL 88.5 FL (80.0-100.0) (80.0-100.0) Mean Corpuscular Hemoglobin 30.0 PG 30.5 PG (27.0-34.0) (27.0-34.0) Mean Corpuscular Hemoglobin 33.5 % 34.4 % Concent (32.0-36.0) (32.0-36.0) Red Cell Distribution Width 18.1 % 18.1 % (11.6-17.2) (11.6-17.2) Platelet Count 50 TH/MM3 50 TH/MM3 (150-450) (150-450) Mean Platelet Volume 8.6 FL 8.1 FL (7.0-11.0) (7.0-11.0) Sodium Level 140 MEQ/L 139 MEQ/L (136-145) (136-145) Potassium Level 3.8 MEQ/L 4.0 MEQ/L (3.5-5.1) (3.5-5.1) Chloride Level 101 MEQ/L 102 MEQ/L (98-107) (98-107) Carbon Dioxide Level 28.3 MEQ/L 29.5 MEQ/L (21.0-32.0) (21.0-32.0) Anion Gap 11 MEQ/L (5-15) 8 MEQ/L (5-15) Blood Urea Nitrogen 28 MG/DL (7-18) 36 MG/DL (7-18) Creatinine 2.28 MG/DL 2.74 MG/DL (0.60-1.30) (0.60-1.30) Estimat Glomerular Filtration 29 ML/MIN (>89) 23 ML/MIN (>89) Rate Random Glucose 162 MG/DL 331 MG/DL (74-106) (74-106) Calcium Level 8.5 MG/DL 8.3 MG/DL (8.5-10.1) (8.5-10.1) Magnesium Level 2.3 MG/DL (1.5-2.5) Total Bilirubin 1.5 MG/DL 0.8 MG/DL (0.2-1.0) (0.2-1.0) Aspartate Amino Transf 18 U/L (15-37) 12 U/L (15-37) (AST/SGOT) Alanine Aminotransferase 14 U/L (12-78) 14 U/L (12-78) (ALT/SGPT) Alkaline Phosphatase 78 U/L (45-117) 89 U/L (45-117) Total Protein 6.4 GM/DL 6.5 GM/DL (6.4-8.2) (6.4-8.2) Albumin 2.8 GM/DL 2.8 GM/DL (3.4-5.0) (3.4-5.0) . Result Diagram: 07/13/16 0435 07/13/16 0435 Microbiology Microbiology Date/Time Procedure Status Source Growth 07/11/16 18:00 Gram Stain - Final Resulted Bronchial Washings Bronchial 07/11/16 18:00 Bronchial Culture - Preliminary Resulted Gram Negative Wade 07/11/16 18:00 Acid Fast Stain Received Sputum Endotracheal Pending 07/11/16 18:00 Mycobacterial Culture Received Sputum Endotracheal Pending 07/11/16 18:00 Fungal Smear - Final Resulted Sputum Endotracheal NO FUNGAL ELEMENTS SEEN. 07/11/16 18:00 Fungal Culture Resulted Sputum Endotracheal Pending . Imaging Last Impressions Chest X-Ray 07/12/16 0000 Signed Impressions: Service Date/Time: June 10:35 - CONCLUSION: 1. Support apparatus unchanged. Stable bilateral airspace disease and pleural effusions. Randy Byrne MD Brain MRI 07/10/16 0000 Signed Impressions: Service Date/Time: Sunday, July 10, 2016 13:32 - CONCLUSION: 1. Nonspecific white matter changes. 2. No acute infarction. 3. Tiny remote right parietal infarct. Pepito Kulkarni MD Head CT 07/08/16 0016 Signed Impressions: Service Date/Time: Friday, July 08, 2016 02:22 - CONCLUSION: 1. No acute findings. Mild atrophy. Randy Byrne MD Thoracentesis Ultrasound 07/05/16 0600 Signed Impressions: Service Date/Time: June 10:34 - CONCLUSION: Uncomplicated ultrasound guided thoracentesis. Edgar Rice MD Chest CT 07/02/16 0000 Signed Impressions: Service Date/Time: Saturday, July 02, 2016 23:35 - CONCLUSION: 1. Moderate sized bilateral pleural effusions with dense consolidation in both posterior lower lobes. 2. Right upper lobe bronchiectasis with 4 cm mass like area in the right upper lobe. 3. Cardiomegaly with small pericardial effusion. 4. Cirrhotic liver. 5. Mild splenomegaly with multiple varices in the upper left abdomen. Carlos Watts MD Upper Extremity Ultrasound 06/25/16 0000 Signed Impressions: Service Date/Time: Saturday, June 25, 2016 12:29 - CONCLUSION: 1. Occlusive thrombus in the left cephalic vein. 2. No deep venous thrombosis from the right arm.. Pepito Kulkarni MD Renal Ultrasound 06/25/16 0000 Signed Impressions: Service Date/Time: Saturday, June 25, 2016 22:41 - CONCLUSION: 1. Unremarkable kidneys. 2. Small volume ascites. 3. Bilateral pleural effusions. 4. Splenomegaly. Carroll Joel Jr., MD Lung Scan-V Nuclear Medicine 06/25/16 0000 Signed Impressions: Service Date/Time: Saturday, June 25, 2016 08:33 - CONCLUSION: Low probability for pulmonary embolism. Moderate ventilatory defect. Alexy Padron MD FACR . Procedures * Intubation/mechanical ventilation * Right subclavicular central line placement * Bronchoscopy 07/11/16 . Assessment and Plan Disease Oriented Problem List: (1) Bilateral pleural effusion (2) Cardiomyopathy Comment: Echocardiogram of 06/25/16 revealed an ejection fraction of 35-40% with no regional wall motion abnormalities. . (3) Pericardial effusion Comment: Echocardiogram of 06/25/16 showed a pericardial effusion. (4) Seizure Comment: Possible seizure activity noted on 07/08/16. Neurology consulted. On levitiracetam. . (5) Acute on chronic renal insufficiency Comment: GFR improved after admission and now is declining again. . (6) Diabetes mellitus Comment: Poorly controlled as an outpatient. Not very compliant with lifestyle recommendations. . (7) Acute respiratory failure with hypoxia Comment: Now tolerating CPAP trials. (8) Lung mass Comment: CT imaging shows 4 cm mass-like area in RUL. Bronchoscopy of will hopefully help determine if this is infection. . . (9) Cirrhosis (10) Atrial fibrillation (11) GI bleed Comment: Patient had several duodenal ulcers on endoscopy back in April 2016. Required embolization to control GI bleeding. (12) Anemia Comment: Concern for ongoing blood loss. . (13) Hypoalbuminemia (14) Alcohol abuse Symptom Scale: (1) Pain 0-10 Scale: Unable to quantify Comment: Minimally responsive. Unable to qualify/quantify pain. Current sources of pain might include prolonged bedbound status; orotracheal/orogastric intubation; vascular access lines; Donaldson catheter; restraints. . (2) Encephalopathy 0-10 Scale: Unable to quantify Comment: May be some underlying dementia and there may be an element of alcoholic encephalopathy. Neurology has evaulated -- no seizure activity noted. EEG showing slowing c/w diffust encephalopathy. . . (3) Dyspnea 0-10 Scale: Unable to quantify Comment: Currently managed on vent -- tolerating cpap trials intermittently. . . Pertinent Non-Medical Issues Psychosocial: Patient's psychosocial support in this area comes primarily from his brother Randy and Randy's who live here. Patient is unmarried, has no children, but does have some close friends in his home state of [place]. Spiritual: Alevism and spirituality have not played an important role in his life. Legal: Patient has never completed an advanced directive. Under [place] statutes, his brother, Randy, would be his legal proxy for healthcare decision- making. Randy has accepted this role. Ethical issues impacting care: Patient is currently incapacitated to make his own health care decisions. It is unclear if he will regain capacity. Important Contacts * Randy Gonzalez (brother and health care proxy) [phone] . Prognosis Based on family reports, the patient has been declining physically and cognitively for about a year. There had been weight loss and memory loss. Since his hospitalization here at the end of April he has been unable to truly turn a corner and improve. He had a long ICU stay during the admission in April /May and is now back in the ICU in June requiring mechanical ventilation once again. He has multiple medical problems -- cardiomyopathy; CHF; alcoholic liver disease; recent GI bleed; DM; acute on chronic renal disease; pleural effusions requiring thoracentesis; prolonged encephalopathy etc. It is certainly possible that he will get through this acute period yet again, but, if he does, there is a high likelihood that he will "bounce back" to the hospital before completing rehabilitation. Based on the pre-April trajectory of decline, we can expect ongoing loss of functional status even if the acute problems are addressed. . Code Status: Full Code Plan == Code Status: FULL CODE. Patient's brother, the health care proxy, spoke with brother when last awake/alert, and he feels his brother would want ongoing aggressive care as long as there remains a chance he might improve. == Decision making: Patient is incapacitated to make his own health care decisions at this time and it remains uncertain if he will regain capacity. He has no spouse, no children, no surviving parents. He has one surviving brother -- Randy Gonzalez -- who is local and is the appropriate health care proxy. Randy has been accepting that role. == Goals of medical treatment: As noted above, the brother believes the patient wants ongoing aggressive care as long as the doctors think there is a reasonable chance of recovery. They are hoping he will improve well enough to have another conversation about his own goals and to complete a will. Goals will be readdressed if/when tracheostomy decision is at hand. ==Pain: Patient's primary pre-hospital pain syndrome was his knee. Other sources of pain currently could include prolonged bedbound status; edema; restraints; urinary catheter; and vascular access lines. Fentanyl and midazolam drips have been discontinued. No current orders for opiate analgesics. No further recommendations at this time. ==Encephalopathy: Not improving off sedation. Family suggests there was early dementia prior to his hospitalizations. There may be an element of alcoholic encephalopathy. Brother says he was able to hold a relatively normal conversation just days ago. EEG shows theta slowing c/w mild diffuse encephalopathy but no seizure activity. No further recommendations at this time. == Agitation: Nurses report he is trying to pull up tubes/lines when off sedation. Now receiving dexmetetomidine. No further recommendation at this time. == Dyspnea: Patient has long history of asthma requiring approximately 2 puffs on an albuterol inhaler daily at baseline. This is his third time requiring mechanical ventilation since April 2016. Dyspnea currently controlled with mechanical ventilation -- intermittently tolerating CPAP trials. Discussed wt Dr. Ashley on 07/12/16 -- will need to consider tracheostomy if no improvement by Monday 07/17. This will be another important decision point for brother. == Disposition: If /when he recovers from this acute illness, he will need to go to rehab. I think it is unlikely that he will be able to return to independent living. Chances of significant medical setback over the next weeks to months are high. If/when he is awake/alert, we will want to talk about whether or not to transition to "comfort measures only" and hospice should there be another major setback. ==Palliative care will continue to follow to assist with symptom management and to further clarify goals of medical treatment as the clinical course evolves. . Attestation To help prompt me to consider important information that might be impacting today's encounter and assessment, information from prior notes written by myself or my colleagues may have been "brought forward" into today's note. My signature on this note, however, is an attestation that I personally performed the exam, history, and/or decision-making noted today, and, unless otherwise indicated, the interactions with patient, family, and staff as well as the review of records all occurred today. I also attest that the listed assessment and stated plan reflect my best clinical judgment today based on the combination of historical information, prior notes, and today's exam/ interactions. When time spent is documented, it refers only to time spent today by the signer, or if indicated, combined time spent today by collaborating physician/nurse practitioner. . Rod Erazo MD July 13, 2016 10:55
[2016-07-13] MEDS ORDERED: NOREPINEPHRINE-DEXTROSE DRIP 250 ML IV ONE (12:20)
--- NOTE | 2016-07-13 14:03 | HHI.CCPN ---
Subjective Remarks/Hospital Course The patient is a 66-year-old male with a past medical history of diabetes mellitus, bronchial asthma, ETOH use, cirrhosis of the liver, who presented to [facility] ED from a nursing facility for shortness of breath. The patient was recently hospitalized in the end of April, for GI bleed secondary to large duodenal ulcer. In addition he underwent arteriogram and embolization of the right gastric and GDA on May 18. He required multiple blood transfusions, intubation and mechanical ventilation. In addition, the patient had two endoscopies. On arrival to the ED the patient was hypotensive with blood pressure 94/50 and his laboratory data showed mild acute kidney injury with a BUN of 21, creatinine 1.86, lactic acidosis with lactic acid level 3.6 and elevated BNP at 427. In addition, he was found to have elevated D -dimer at 12.28. CT scan of the brain was obtained which showed no atrophy, otherwise no acute intracranial abnormalities. A VQ scan was obtained as well in the ER which showed low probability for pulmonary embolism. His initial chest x-ray from early this morning showed bilateral pleural effusions and patchy bilateral pulmonary infiltrates. Central line was placed by ED physician and a repeat chest x-ray showed right IJ central line in good position , bilateral effusions with bilateral parenchymal densities, right greater than the left. In the ER he was given 2 liters of crystalloids in addition to vancomycin, Zosyn, Solu-Medrol, bronchodilator and Bumex. He was hypotensive in the ER and the patient was placed on Levophed which is currently at three mics. Due to his respiratory distress, the patient was intubated and placed on full mechanical ventilation. When seen he is on Diprivan infusion for sedation. However, the patient is awake, alert and follows commands. ABG post intubation showed a pH of 7.35, CO2 48, pAO2 325, bicarb 26, saturation of 98%. 06/26: Patient is sedated with Diprivan. Afebrile. Off Levophed. 06/27: Extubated 06/26. Of all vasopressors. Currently on nasal cannula. Tolerating diet. Subjective 06/28: Currently complaining of chest discomfort/pleuritic with breathing and shortness of breath. On 4 L nasal cannula. Complaining of difficulty with swallowing. No bowel movement. Up in chair 4 hours yesterday. 07/08 shortly after midnight rapid response team was called for the patient's seizure-like activity. He received Ativan however shortly after seizure and became unresponsive retaining CO2 at 70s. He required endotracheal intubation for airway protection. After intubation patient became hypotensive requiring low dose of Levophed to keep his map above 65 and central line was placed. 07/09: Sedated, orally intubated on mechanical ventilation. Was transfused 1 unit PRBCs yesterday. Remains on Levophed for pressor support. 07/10: Remains encephalopathic off sedation, orally intubated on mechanical ventilation. On Levophed for pressor support. 07/11: still encephalopathic. versed turned off around 5am. 07/12: less awake today. slightly more hypoxic. not much secretions. ID consulted yesterday, started Levaquin. bronch yesterday to eval RUL mass and cytology sent. gram stain negative for bacteria. 07/13: still encephalopathic. Cr continues to rise. also net +2L despite aggressive attempts at diuresis. Objective Vital Signs Date Time Temp Pulse Resp B/P Pulse Ox O2 Delivery O2 Flow Rate FiO2 07/13/16 12:00 50 07/13/16 10:54 96 07/13/16 10:00 54 07/13/16 08:00 97.9 18 95/55 Intake and Output 07/12/16 07/12/16 07/13/16 08:00 16:00 00:00 Intake Total 816 ml 1414 ml 785 ml Output Total 75 ml 50 ml 200 ml Balance 741 ml 1364 ml 585 ml Result Diagram: 07/13/16 0435 07/13/16 0435 Imaging Last 48 hours Impressions Brain MRI 07/10/16 0000 Signed Impressions: Service Date/Time: Sunday, July 10, 2016 13:32 - CONCLUSION: 1. Nonspecific white matter changes. 2. No acute infarction. 3. Tiny remote right parietal infarct. Pepito Kulkarni MD Last Impressions Chest X-Ray 06/28/16 0600 Signed Impressions: Service Date/Time: June 03:31 - CONCLUSION: Unchanged effusions and bibasilar infiltrates/atelectasis. Carroll Joel Jr., MD Upper Extremity Ultrasound 06/25/16 0000 Signed Impressions: Service Date/Time: Saturday, June 25, 2016 12:29 - CONCLUSION: 1. Occlusive thrombus in the left cephalic vein. 2. No deep venous thrombosis from the right arm.. Pepito Kulkarni MD Renal Ultrasound 06/25/16 0000 Signed Impressions: Service Date/Time: Saturday, June 25, 2016 22:41 - CONCLUSION: 1. Unremarkable kidneys. 2. Small volume ascites. 3. Bilateral pleural effusions. 4. Splenomegaly. Carroll Joel Jr., MD Lung Scan-VQ Nuclear Medicine 06/25/16 Signed Impressions: Service Date/Time: Saturday, June 25, 2016 08:33 - CONCLUSION: Low probability for pulmonary embolism. Moderate ventilatory defect. Alexy Padron MD FACR Head CT 06/25/16 Signed Impressions: Service Date/Time: Saturday, June 25, 2016 04:22 - CONCLUSION: 1. Atrophy. 2. No acute intracranial abnormality. Carroll Joel Jr., MD Objective Remarks HEENT/ Neuro: Sedated/ encephalopathic, orally intubated, Pallor present, no icterus, tongue/ mucosa moist Neck: No JVD Chest/Pulm: on mech vent, air entry decreased bilaterally at bases, bilateral rhonchi no wheezing or crackles CVS: normal rate, regular rhythm. sinus by tele. GI/abdomen: soft, nontender, no guarding. Extremities: warm bilaterally, no edema A/P Assessment and Plan Assessment: 66yM with etoh cirrhosis, metabolic encephalopathy, acute kidney injury, significant acute on chronic organ dysfunction. He is not improving, and remains critically ill with a very poor prognosis. we will work towards minimizing sedation and improving his mentation. his kidney injury worsens despite forced diuresis and concentrated ablumin, likely as a result of his critical illness and his chronic ESLD. I will send bnp today, and if it continues to uptrend, we may be forced to be more aggressive with diuresis. for now, goals remain aggressive per family. Neuro/Psych: ETOH History of hepatic encephalopathy we will attempt to control any agitation with haldol 5mg iv q4h prn first, now on precedex to control agitation. Seizure precautions Head CT negative for bleed/mass EEG negative for seizure. frequent neuro checks modafinil 200mg daily for hypoactive component of delirium. CV: Congestive heart failure - chronic systolic Pericardial effusion Atrial fibrillation Echocardiogram 06/25 revealed ejection fraction 35-40%. No regional wall motion abnormality. PASP [address] Byrne. Not a candidate for left heart catheter/PCI. Recommended Coreg 3.125 twice a day, aspirin 81 mg daily/medical management --will hold carvedilol while on vasopressors. On amiodarone 200 mg daily Pericardial effusion without tamponade features Hypotension likely multifactorial: intravascular volume depletion, ESLD, possible low-grade septic shock. Resp: Chronic 02 - 1.5 liters Acute hypoxemic respiratory failure. Congestive heart failure/infectious etiology Bronchial asthma Bilateral pleural effusions Continue mechanical ventilation, vent bundle, daily C Pap trials. Bronchodilator therapy every 4 hours and as needed VQ scan admission low probability for pulmonary embolism GI: History of celiac artery embolization left PT secondary to duodenal ulcer 06/04 Gastroesophageal reflux disease Liver cirrhosis with varices Transfused 1 unit PRBCs on 07/08. Follow CBC. Continue Protonix 40 mg iv BID TF at goal. : BPH Donaldson catheter while on diuretics for accurate I's and O's in a critically ill patient Endo: Diabetes mellitus Elevated intact parathyroid hormone Low vitamin D 25 Patient was intubated for severe hypoglycemia with FS glucose 30s on 07/07. Now hyperglycemic following holding Levemir and switching from medium dose sliding scale. Continue NG tube feeds Increase to 10 units NPH q12h on 07/13 Renal: Acute on chronic kidney injury- worsening. likely multifactorial, intravascular volume depletion, possible combination cardio-renal syndrome, hepato-renal syndrome? Followed by nephrology. Baseline creatinine 1.7. continue concentrated albumin 25% iv q12h with bumex to 2mg iv q12h. bnp today, if elevated, will pursue more aggressive forced diuresis. Avoid nephrotoxic drugs Strict intake output, monitor and replete electrolytes, Renal ultrasound revealed no hydronephrosis. Heme: Leukocytosis Normocytic anemia Left cephalic vein thrombosis Thrombocytopenia Severe anemia Monitor CBC daily Monitor trends ID: Recently treated left knee osteomyelitis completed therapy vancomycin/Diflucan Community-acquired pneumonia Pertinent cultures Blood cultures 2 - 06/25 - no growth sputum culture 07/08 growing ESBL enterobacter. ID: Dr. Bryson started Levaquin 07/11. bronch 07/11 with cytology and cultures sent for RUL mass. cultures growing GNR, speciation to follow. MSK: PT evaluate and treat FEN: Replace electrolytes as clinically indicated Access - Right subclavian placed 07/08. will trend cvp today. Prophylaxis - GI - Protonix - DVT - SCD/pharmacological prophylaxis held due to GI bleed Prognosis appears poor with advanced cirrhosis, encephalopathy, CHF, respiratory failure, brittle diabetes. Consulted palliative care to assist with deciding goals of therapy. Critical Care: The total care time was 33 minutes. Time to perform other separately billable procedures was not included in the critical care time. Jaime Ashley MD July 13, 2016 14:03
--- NOTE | 2016-07-13 17:06 | HHI.PR ---
Subjective Remarks 66 YOWM with CHF,RF, s/p extubation On Vent On Versed BS better controlled on Levaquin Did't tolerate CPAP today Objective Vital Signs Vital Signs Date Time Temp Pulse Resp B/P Pulse Ox O2 Delivery O2 Flow Rate FiO2 07/13/16 15:49 98 40 07/13/16 12:00 97.8 52 18 87/55 95 07/13/16 12:00 50 07/13/16 10:54 96 40 07/13/16 10:00 54 07/13/16 08:00 97.9 67 18 95/55 96 07/13/16 08:00 67 07/13/16 08:00 50 07/13/16 07:45 40 07/13/16 07:38 97 40 07/13/16 06:00 67 07/13/16 04:24 97 40 07/13/16 04:00 98.6 67 30 120/58 96 07/13/16 04:00 50 07/13/16 04:00 67 07/13/16 02:00 58 07/13/16 01:57 95 40 07/13/16 00:00 98.8 69 35 131/63 93 07/13/16 00:00 50 07/13/16 00:00 65 07/12/16 22:11 100 40 07/12/16 22:00 62 07/12/16 20:00 68 07/12/16 20:00 98.7 68 28 130/66 94 07/12/16 20:00 50 07/12/16 19:42 100 40 07/12/16 18:00 66 I/O 07/12/16 07/12/16 07/12/16 07/13/16 07/13/16 07/13/16 07:00 15:00 23:00 07:00 15:00 23:00 Intake Total 816 ml 1414 ml 785 ml 567 ml 766 ml Output Total 75 ml 50 ml 200 ml 150 ml 100 ml Balance 741 ml 1364 ml 585 ml 417 ml 666 ml IV Total 441 ml 931 ml 382 ml 322 ml 574 ml Tube Feeding 375 ml 433 ml 343 ml 155 ml 192 ml Other 50 ml 60 ml 90 ml Output Urine Total 75 ml 50 ml 200 ml 150 ml 100 ml # Bowel Movements 1 0 0 Result Diagram: 07/13/1643407/13/16434 Objective Remarks GENERAL: MBMN WM, mild sob SKIN: Warm and dry. HEAD: Normocephalic. EYES: No scleral icterus. No injection or drainage. NECK: Supple, trachea midline. No JVD or lymphadenopathy. CARDIOVASCULAR: Regular rate and rhythm without murmurs, gallops, or rubs. RESPIRATORY: Breath sounds equal bilaterally. No accessory muscle use. Scattered rales GASTROINTESTINAL: Abdomen soft, non-tender, nondistended. MUSCULOSKELETAL: No cyanosis, or edema. BACK: Nontender without obvious deformity. No CVA tenderness. A/P Assessment and Plan VDRF Pl effusion, s/p right TC DM CHF Anemia Renal insuff PLAN: Vent support Cont Abx Sedation with Versed Aerosol nebs Daily CPAP trial Ashish Thorpe MD July 13, 2016 17:06
[2016-07-13] MEDS ORDERED: CHLOROTHIAZIDE SOD 500 MG VIAL IV ONE (21:00)
[2016-07-13] MEDS ORDERED: BUMETANIDE INJ 1 MG/4 ML VIAL IV PUSH ONE (21:00)
[2016-07-14] VITALS (20 sets, daily range): BP systolic 101–124; BP diastolic 55–66; PULSE 53–116; RESP 19–28; TEMP 97.2–98.9; O2SAT 37–100
[2016-07-14] MEDS ORDERED: BUMETANIDE INJ 1 MG/4 ML VIAL IV PUSH SCH
[2016-07-14] MEDS: INSULIN ASPART SUPPLEMENTAL SCALE SQ SCH ×6 (01:16→21:00)
[2016-07-14] MEDS: ALBUMIN HUMAN 25% 25 GM/100 ML BAGP IV SCH ×3 (01:21→16:59)
[2016-07-14] MEDS: MEROPENEM INJ 1,000 MG in SODIUM CHLORIDE 0.9% INJ 100 ML IV SCH ×2 (01:30→13:17)
[2016-07-14] MEDS: CHLORHEXIDINE GLUCONATE 2 % 1 PACK (2 CLOTHS) TOP SCH (03:30)
[2016-07-14] MEDS: DEXMEDETOMIDINE 200 MCG in NS 50 ML IV SCH ×5 (04:02→23:40)
[2016-07-14 06:25] LABS: HEMATOCRIT 23.6 % (39.0-51.0); MEAN CORPUSCULAR HEMOGLOBIN 31.1 PG (27.0-34.0); MEAN CORPUSCULAR HGB CONC 33.7 % (32.0-36.0); PLATELET COUNT 72 TH/MM3 (150-450); RED BLOOD COUNT 2.57 MIL/MM3 (4.50-5.90); RED CELL DISTRIBUTION WIDTH 18.8 % (11.6-17.2); WHITE BLOOD COUNT 4.3 TH/MM3 (4.0-11.0)
[2016-07-14 06:28] LABS: REVIEW FLAG FINAL
[2016-07-14 06:48] LABS: ALT (GPT) 21 U/L (12-78); ANION GAP 8 MEQ/L (5-15); AST (GOT) 23 U/L (15-37); BICARBONATE 28.6 MEQ/L (21.0-32.0); BLOOD UREA NITROGEN 41 MG/DL (7-18); CHLORIDE 103 MEQ/L (98-107); GLOMERULAR FILTRATION RATE 23 ML/MIN (>89); MAGNESIUM 2.4 MG/DL (1.5-2.5); POTASSIUM 3.9 MEQ/L (3.5-5.1); SODIUM (NA) 140 MEQ/L (136-145)
[2016-07-14 06:50] LABS: ALKALINE PHOSPHATASE 114 U/L (45-117); TOTAL BILIRUBIN ADULT 0.6 MG/DL (0.2-1.0)
[2016-07-14] MEDS ORDERED: BUMETANIDE INJ 1 MG/4 ML VIAL IV PUSH ONE (08:15)
[2016-07-14] MEDS ORDERED: METOLAZONE 5 MG TAB PO ONE (08:15)
--- NOTE | 2016-07-14 08:19 | HHI.CCPN ---
Subjective Remarks/Hospital Course The patient is a 66-year-old male with a past medical history of diabetes mellitus, bronchial asthma, ETOH use, cirrhosis of the liver, who presented to [facility] ED from a nursing facility for shortness of breath. The patient was recently hospitalized in the end of April, for GI bleed secondary to large duodenal ulcer. In addition he underwent arteriogram and embolization of the right gastric and GDA on May 18. He required multiple blood transfusions, intubation and mechanical ventilation. In addition, the patient had two endoscopies. On arrival to the ED the patient was hypotensive with blood pressure 94/50 and his laboratory data showed mild acute kidney injury with a BUN of 21, creatinine 1.86, lactic acidosis with lactic acid level 3.6 and elevated BNP at 427. In addition, he was found to have elevated D -dimer at 12.28. CT scan of the brain was obtained which showed no atrophy, otherwise no acute intracranial abnormalities. A VQ scan was obtained as well in the ER which showed low probability for pulmonary embolism. His initial chest x-ray from early this morning showed bilateral pleural effusions and patchy bilateral pulmonary infiltrates. Central line was placed by ED physician and a repeat chest x-ray showed right IJ central line in good position , bilateral effusions with bilateral parenchymal densities, right greater than the left. In the ER he was given 2 liters of crystalloids in addition to vancomycin, Zosyn, Solu-Medrol, bronchodilator and Bumex. He was hypotensive in the ER and the patient was placed on Levophed which is currently at three mics. Due to his respiratory distress, the patient was intubated and placed on full mechanical ventilation. When seen he is on Diprivan infusion for sedation. However, the patient is awake, alert and follows commands. ABG post intubation showed a pH of 7.35, CO2 48, pAO2 325, bicarb 26, saturation of 98%. 06/26: Patient is sedated with Diprivan. Afebrile. Off Levophed. 06/27: Extubated 06/26. Of all vasopressors. Currently on nasal cannula. Tolerating diet. Subjective 06/28: Currently complaining of chest discomfort/pleuritic with breathing and shortness of breath. On 4 L nasal cannula. Complaining of difficulty with swallowing. No bowel movement. Up in chair 4 hours yesterday. 07/08 shortly after midnight rapid response team was called for the patient's seizure-like activity. He received Ativan however shortly after seizure and became unresponsive retaining CO2 at 70s. He required endotracheal intubation for airway protection. After intubation patient became hypotensive requiring low dose of Levophed to keep his map above 65 and central line was placed. 07/09: Sedated, orally intubated on mechanical ventilation. Was transfused 1 unit PRBCs yesterday. Remains on Levophed for pressor support. 07/10: Remains encephalopathic off sedation, orally intubated on mechanical ventilation. On Levophed for pressor support. 07/11: still encephalopathic. versed turned off around 5am. 07/12: less awake today. slightly more hypoxic. not much secretions. ID consulted yesterday, started Levaquin. bronch yesterday to eval RUL mass and cytology sent. gram stain negative for bacteria. 07/13: still encephalopathic. Cr continues to rise. also net +2L despite aggressive attempts at diuresis. 07/14: no significant changes. BNP 1000 yesterday, given diuril, diamox, but still persistently net+. Objective Vital Signs Date Time Temp Pulse Resp B/P Pulse Ox O2 Delivery O2 Flow Rate FiO2 07/14/16 06:00 56 07/14/16 04:07 97 50 07/14/16 04:00 98.7 22 112/66 Intake and Output 07/13/16 07/13/16 07/14/16 08:00 16:00 00:00 Intake Total 567 ml 766 ml 546 ml Output Total 150 ml 100 ml 300 ml Balance 417 ml 666 ml 246 ml Result Diagram: 07/14/1659907/14/16 06 Objective Remarks HEENT/ Neuro: Sedated/ encephalopathic, orally intubated, Pallor present, no icterus, tongue/ mucosa moist. follows commands. RASS -2. Neck: No JVD Chest/Pulm: on mech vent, air entry decreased bilaterally at bases, bilateral rhonchi no wheezing or crackles CVS: normal rate, regular rhythm. sinus by tele. GI/abdomen: soft, nontender, no guarding. Extremities: warm bilaterally, no edema A/P Assessment and Plan Assessment: 66yM with etoh cirrhosis, metabolic encephalopathy, acute kidney injury, significant acute on chronic organ dysfunction. He is not improving, and remains critically ill with a very poor prognosis. we will work towards minimizing sedation and improving his mentation. His BNP is suggestive of severe volume overload, and this is the first day that his Cr has plateaued after significant forced diuresis. we will pursue more aggressive forced diuresis with bumex/albumin drips and attempt to achieve a net -2L fluid balance and re-evaluate. we will do this with frequent lab monitoring. for now , goals remain aggressive per family. Neuro/Psych: ETOH History of hepatic encephalopathy we will attempt to control any agitation with haldol 5mg iv q4h prn first, now on precedex to control agitation. Seizure precautions Head CT negative for bleed/mass EEG negative for seizure. frequent neuro checks modafinil 200mg daily for hypoactive component of delirium. CV: Congestive heart failure - chronic systolic Pericardial effusion Atrial fibrillation Echocardiogram 06/25 revealed ejection fraction 35-40%. No regional wall motion abnormality. PASP [address] Byrne. Not a candidate for left heart catheter/PCI. Recommended Coreg 3.125 twice a day, aspirin 81 mg daily/medical management --will hold carvedilol while on vasopressors. On amiodarone 200 mg daily Pericardial effusion without tamponade features Hypotension likely multifactorial: ESLD, possible low-grade septic shock, sedation Resp: Chronic 02 - 1.5 liters Acute hypoxemic respiratory failure. Congestive heart failure/infectious etiology Bronchial asthma Bilateral pleural effusions Continue mechanical ventilation, vent bundle, daily C Pap trials. Bronchodilator therapy every 4 hours and as needed VQ scan admission low probability for pulmonary embolism GI: History of celiac artery embolization left PT secondary to duodenal ulcer 06/04 Gastroesophageal reflux disease Liver cirrhosis with varices Transfused 1 unit PRBCs on 07/08. Follow CBC. Continue Protonix 40 mg iv BID TF at goal. will switch to glucerna for better glycemic control. : BPH Donaldson catheter while on diuretics for accurate I's and O's in a critically ill patient Endo: Diabetes mellitus Elevated intact parathyroid hormone Low vitamin D 25 Patient was intubated for severe hypoglycemia with FS glucose 30s on 07/07. Now hyperglycemic following holding Levemir and switching from medium dose sliding scale. Continue NG tube feeds Increase to 10 units NPH q12h on 07/13. swap to glucerna. Renal: Acute on chronic kidney injury- worsening. likely multifactorialm, volume overload, possible combination cardio-renal syndrome, hepato-renal syndrome? Followed by nephrology. Baseline creatinine 1.7. bnp > 1000. start bumex drip at 1mg/min and continuous albumin infusion. metolazone 5mg po x 1. Avoid nephrotoxic drugs Strict intake output, monitor and replete electrolytes, Renal ultrasound revealed no hydronephrosis. Heme: Leukocytosis Normocytic anemia Left cephalic vein thrombosis Thrombocytopenia Severe anemia Monitor CBC daily Monitor trends ID: Recently treated left knee osteomyelitis completed therapy vancomycin/Diflucan Community-acquired pneumonia Pertinent cultures Blood cultures 2 - 06/25 - no growth sputum culture 07/08 growing ESBL enterobacter. ID: Dr. Bryson started Levaquin 07/11. bronch 07/11 with cytology and cultures sent for RUL mass. cultures growing GNR, speciation to follow. MSK: PT evaluate and treat FEN: Replace electrolytes as clinically indicated Access - Right subclavian placed 07/08. will trend cvp today. CVP 28. Prophylaxis - GI - Protonix - DVT - SCD/pharmacological prophylaxis held due to GI bleed Prognosis appears poor with advanced cirrhosis, encephalopathy, CHF, respiratory failure, brittle diabetes. Consulted palliative care to assist with deciding goals of therapy. Critical Care: The total care time was 39 minutes. Time to perform other separately billable procedures was not included in the critical care time. Jaime Ashley MD July 14, 2016 08:19
[2016-07-14] MEDS: ASPIRIN 81 MG CHEW TAB CHEW SCH (08:32)
[2016-07-14] MEDS: levETIRAcetam INJ 500 MG in SODIUM CHLORIDE 0.9% INJ 100 ML IV SCH ×2 (08:34→20:57)
[2016-07-14] MEDS: PANTOPRAZOLE SODIUM 40 MG VIAL IV PUSH SCH ×2 (08:34→21:00)
[2016-07-14] MEDS: LACTULOSE SYRUP 20 GM/30 ML CUP PO SCH ×2 (08:34→21:01)
[2016-07-14] MEDS: MAGNESIUM OXIDE 400 MG TAB PO SCH ×2 (08:35→20:58)
[2016-07-14] MEDS: THIAMINE HCL 100 MG TAB PO SCH (08:35)
[2016-07-14] MEDS: FOLIC ACID 1 MG TAB PO SCH (08:35)
[2016-07-14] MEDS: MULTIVITAMIN TAB PO SCH (08:35)
[2016-07-14] MEDS: CALCIUM CARBONATE 500 MG CHEWABLE TAB CHEW SCH ×2 (08:36→20:58)
[2016-07-14] MEDS: LACTOBACILLUS ACIDOPHILUS TAB PO SCH ×3 (08:37→16:59)
[2016-07-14] MEDS: AMIODARONE 200 MG TAB PO SCH (08:39)
[2016-07-14] MEDS: NYSTATIN 100,000 U/GM PWD 15 GM BTL TOPICAL SCH ×2 (08:39→21:10)
[2016-07-14] MEDS: BUDESONIDE-FORMOTEROL 80/4.5 MCG INHALER INH SCH ×2 (08:40→21:01)
[2016-07-14] MEDS ORDERED: ALBUMIN HUMAN 25% 12.5 GM/50 ML BAGP IV SCH (09:00)
[2016-07-14] MEDS: INSULIN HUMAN NPH 1,000 UNITS/10 ML VIAL SQ SCH ×2 (11:51→21:06)
[2016-07-14] MEDS ORDERED: BUMETANIDE INJ 100 ML IV SCH (12:45)
[2016-07-14] MEDS ORDERED: CHLOROTHIAZIDE SOD 500 MG VIAL IV ONE (15:15)
--- NOTE | 2016-07-14 16:17 | HHI.PR ---
Subjective Remarks 66 YOWM with CHF,RF, s/p extubation On Vent On Versed BS better controlled on Levaquin On low dose Levophed Objective Vital Signs Vital Signs Date Time Temp Pulse Resp B/P Pulse Ox O2 Delivery O2 Flow Rate FiO2 07/14/16 15:52 97 40 07/14/16 14:00 103 07/14/16 12:53 37 40 07/14/16 12:00 107 07/14/16 12:00 40 07/14/16 10:00 58 07/14/16 08:02 96 40 07/14/16 08:00 40 07/14/16 08:00 97.2 56 19 101/56 99 07/14/16 08:00 56 07/14/16 06:00 56 07/14/16 04:07 97 50 07/14/16 04:00 98.7 57 22 112/66 97 07/14/16 04:00 40 07/14/16 04:00 53 07/14/16 02:00 61 07/14/16 01:00 98 40 07/14/16 00:00 98.9 64 25 118/55 98 07/14/16 00:00 64 07/14/16 00:00 40 07/13/16 22:06 98 40 07/13/16 22:00 61 07/13/16 20:00 60 07/13/16 20:00 40 07/13/16 20:00 98.7 60 15 98/55 98 07/13/16 19:50 97 40 07/13/16 18:00 63 I/O 07/13/16 07/13/16 07/13/16 07/14/16 07/14/16 07/14/16 07:00 15:00 23:00 07:00 15:00 23:00 Intake Total 567 ml 766 ml 546 ml 699 ml 799 ml Output Total 150 ml 100 ml 300 ml 1200 ml 650 ml Balance 417 ml 666 ml 246 ml -501 ml 149 ml IV Total 322 ml 574 ml 187 ml 324 ml 344 ml Tube Feeding 155 ml 192 ml 359 ml 375 ml 455 ml Other 90 ml Output Urine Total 150 ml 100 ml 300 ml 1200 ml 650 ml # Bowel Movements 0 0 1 Result Diagram: 07/14/1659907/14/16599 Objective Remarks GENERAL: MBMN WM, mild sob SKIN: Warm and dry. HEAD: Normocephalic. EYES: No scleral icterus. No injection or drainage. NECK: Supple, trachea midline. No JVD or lymphadenopathy. CARDIOVASCULAR: Regular rate and rhythm without murmurs, gallops, or rubs. RESPIRATORY: Breath sounds equal bilaterally. No accessory muscle use. Scattered rales GASTROINTESTINAL: Abdomen soft, non-tender, nondistended. MUSCULOSKELETAL: No cyanosis, or edema. BACK: Nontender without obvious deformity. No CVA tenderness. A/P Assessment and Plan VDRF Pl effusion, s/p right TC DM CHF Anemia Renal insuff PLAN: Vent support Cont Abx Sedation with Precedex Aerosol nebs Daily CPAP trial Ashish Thorpe MD July 14, 2016 16:17
[2016-07-14 17:13] LABS: BICARBONATE 33.4 MEQ/L (21.0-32.0); MAGNESIUM 2.5 MG/DL (1.5-2.5); POTASSIUM 3.9 MEQ/L (3.5-5.1)
--- NOTE | 2016-07-14 19:42 | HHI.IDPN ---
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 Vital Signs Date Time Temp Pulse Resp B/P Pulse Ox O2 Delivery O2 Flow Rate FiO2 07/14/16 18:00 59 07/14/16 16:00 98.0 60 28 123/59 99 07/14/16 16:00 40 07/14/16 16:00 62 07/14/16 15:52 97 40 07/14/16 15:52 40 07/14/16 14:00 62 07/14/16 12:53 37 40 07/14/16 12:00 97.9 56 22 110/57 99 07/14/16 12:00 56 07/14/16 12:00 40 07/14/16 10:00 58 07/14/16 08:02 96 40 07/14/16 08:00 40 07/14/16 08:00 97.2 56 19 101/56 99 07/14/16 08:00 56 07/14/16 06:00 56 07/14/16 04:07 97 50 07/14/16 04:00 98.7 57 22 112/66 97 07/14/16 04:00 40 07/14/16 04:00 53 07/14/16 02:00 61 07/14/16 01:00 98 40 07/14/16 00:00 98.9 64 25 118/55 98 07/14/16 00:00 64 07/14/16 00:00 40 07/13/16 22:06 98 40 07/13/16 22:00 61 07/13/16 20:00 60 07/13/16 20:00 40 07/13/16 20:00 98.7 60 15 98/55 98 07/13/16 19:50 97 40 07/13/16 07/13/16 07/14/16 15:00 23:00 07:00 Intake Total 766 ml 546 ml 699 ml Output Total 100 ml 300 ml 1200 ml Balance 666 ml 246 ml -501 ml IV Total 574 ml 187 ml 324 ml Tube Feeding 192 ml 359 ml 375 ml Output Urine Total 100 ml 300 ml 1200 ml # Bowel Movements 0 1 . Laboratory Tests Test 07/13/16 07/14/16 04:35 06:00 White Blood Count 3.4 TH/MM3 4.3 TH/MM3 Red Blood Count 2.55 MIL/MM3 2.57 MIL/MM3 Hemoglobin 7.8 GM/DL 8.0 GM/DL Hematocrit 22.6 % 23.6 % Mean Corpuscular Volume 88.5 FL 92.0 FL Mean Corpuscular Hemoglobin 30.5 PG 31.1 PG Mean Corpuscular Hemoglobin 34.4 % 33.7 % Concent Red Cell Distribution Width 18.1 % 18.8 % Platelet Count 50 TH/MM3 72 TH/MM3 Mean Platelet Volume 8.1 FL 9.1 FL Laboratory Tests Test 07/13/16 07/13/16 07/14/16 07/14/16 04:35 14:30 06:00 16:18 Sodium Level 139 MEQ/L 140 MEQ/L 141 MEQ/L Potassium Level 4.0 MEQ/L 3.9 MEQ/L 3.9 MEQ/L Chloride Level 102 MEQ/L 103 MEQ/L 101 MEQ/L Carbon Dioxide Level 29.5 MEQ/L 28.6 MEQ/L 33.4 MEQ/L Anion Gap 8 MEQ/L 8 MEQ/L 7 MEQ/L Blood Urea Nitrogen 36 MG/DL 41 MG/DL 44 MG/DL Creatinine 2.74 MG/DL 2.73 MG/DL 2.78 MG/DL Estimat Glomerular Filtration 23 ML/MIN 23 ML/MIN 23 ML/MIN Rate Random Glucose 331 MG/DL 280 MG/DL 235 MG/DL Calcium Level 8.3 MG/DL 8.6 MG/DL 8.9 MG/DL Total Bilirubin 0.8 MG/DL 0.6 MG/DL Aspartate Amino Transf 12 U/L 23 U/L (AST/SGOT) Alanine Aminotransferase 14 U/L 21 U/L (ALT/SGPT) Alkaline Phosphatase 89 U/L 114 U/L Ammonia 21 MCMOL/L 28 MCMOL/L Total Protein 6.5 GM/DL 6.6 GM/DL Albumin 2.8 GM/DL 3.0 GM/DL B-Type Natriuretic Peptide 1006 PG/ML Magnesium Level 2.4 MG/DL 2.5 MG/DL Imaging Last Impressions Chest X-Ray 07/12/16 0000 Signed Impressions: Service Date/Time: June 10:35 - CONCLUSION: 1. Support apparatus unchanged. Stable bilateral airspace disease and pleural effusions. Randy Byrne MD Brain MRI 07/10/16 0000 Signed Impressions: Service Date/Time: Sunday, July 10, 2016 13:32 - CONCLUSION: 1. Nonspecific white matter changes. 2. No acute infarction. 3. Tiny remote right parietal infarct. Pepito Kulkarni MD Head CT 07/08/16 0016 Signed Impressions: Service Date/Time: Friday, July 08, 2016 02:22 - CONCLUSION: 1. No acute findings. Mild atrophy. Randy Byrne MD Thoracentesis Ultrasound 07/05/16 0600 Signed Impressions: Service Date/Time: June 10:34 - CONCLUSION: Uncomplicated ultrasound guided thoracentesis. Edgar Rice MD Chest CT 07/02/16 0000 Signed Impressions: Service Date/Time: Saturday, July 02, 2016 23:35 - CONCLUSION: 1. Moderate sized bilateral pleural effusions with dense consolidation in both posterior lower lobes. 2. Right upper lobe bronchiectasis with 4 cm mass like area in the right upper lobe. 3. Cardiomegaly with small pericardial effusion. 4. Cirrhotic liver. 5. Mild splenomegaly with multiple varices in the upper left abdomen. Carlos Watts MD Upper Extremity Ultrasound 06/25/16 0000 Signed Impressions: Service Date/Time: Saturday, June 25, 2016 12:29 - CONCLUSION: 1. Occlusive thrombus in the left cephalic vein. 2. No deep venous thrombosis from the right arm.. Pepito Kulkarni MD Renal Ultrasound 06/25/16 0000 Signed Impressions: Service Date/Time: Saturday, June 25, 2016 22:41 - CONCLUSION: 1. Unremarkable kidneys. 2. Small volume ascites. 3. Bilateral pleural effusions. 4. Splenomegaly. Carroll Joel Jr., MD Lung Scan-V Nuclear Medicine 06/25/16 0000 Signed Impressions: Service Date/Time: Saturday, June 25, 2016 08:33 - CONCLUSION: Low probability for pulmonary embolism. Moderate ventilatory defect. Alexy Padron MD FACR Physical Exam CONSTITUTIONAL/GENERAL: This is an adequately nourished patient, in no apparent distress. On vent TUBES/LINES/DRAINS: SKIN: No jaundice, rashes, or lesions. EYES: Pupils equal and round and reactive. Extraocular motions intact. No scleral icterus. No injection or drainage. Fundi not examined. ENT:oral mucosae without visible erythema, exudates, masses, or lesions. CARDIOVASCULAR: Regular rate and rhythm without murmurs, gallops, or rubs. No JVD. Peripheral pulses symmetric. RESPIRATORY/CHEST: Scattered rhonchi to auscultation. Breath sounds coarse. GASTROINTESTINAL: Abdomen soft, non-tender, mildly to moderrately distended. No hepato-splenomegaly, or palpable masses. No guarding. Bowel sounds present. GENITOURINARY: Without palpable bladder distension. Donaldson catheter in place with clear yellow urine. UOP marginal Edema of scrotum MUSCULOSKELETAL: Extremities without clubbing, cyanosis, 2-3+ edema, still quite prominent . NEUROLOGICAL: awake alert, eyes opend follows commnds and trying to mouth words PSYCH: anxious Assessment & Plan Remarks VDRF - tolerating CPAP today - decreasing vent requirements PNA, RUL mass ? cavitary - abscess ? CA ? myconbacterial - growing MDRO Enterobacter in sputum and a GNB from BAL - per BAL report, thick saecretions - AFB/ananth neg; cyto P Metabolic encephalopathy Mult med problems New thrombo and leukopenia noted - improving - fu bronch routine/AFB/fungal clx + cyto - cont meropenem, renally adjusted preeti RN Nell Jeong Dr, MD July 14, 2016 19:42
[2016-07-14] MEDS: RESP: ALBUTEROL 2.5 MG/3 ML NEB (PRN) NEB (20:26)
[2016-07-14] MEDS: NOREPINEPHRINE INJ 4 MG in SODIUM CHLOR 0.9% 250 ML INJ 246 ML IV SCH (21:01)
[2016-07-14 22:19] LABS: BICARBONATE 32.3 MEQ/L (21.0-32.0); MAGNESIUM 2.5 MG/DL (1.5-2.5)
[2016-07-15] VITALS (19 sets, daily range): BP systolic 98–230; BP diastolic 55–64; PULSE 52–59; RESP 12–26; TEMP 97.5–98; O2SAT 96–100
[2016-07-15] MEDS: ALBUMIN HUMAN 25% 25 GM/100 ML BAGP IV SCH (01:40)
[2016-07-15] MEDS: DEXMEDETOMIDINE 200 MCG in NS 50 ML IV SCH ×7 (01:40→21:24)
[2016-07-15] MEDS: MEROPENEM INJ 1,000 MG in SODIUM CHLORIDE 0.9% INJ 100 ML IV SCH ×2 (01:40→13:30)
[2016-07-15] MEDS: INSULIN ASPART SUPPLEMENTAL SCALE SQ SCH ×2 (01:45→04:59)
[2016-07-15 01:59] LABS: BICARBONATE 32.1 MEQ/L (21.0-32.0); MAGNESIUM 2.6 MG/DL (1.5-2.5); POTASSIUM 3.9 MEQ/L (3.5-5.1)
[2016-07-15] MEDS: RESP: ALBUTEROL 2.5 MG/3 ML NEB (PRN) NEB ×2 (02:57→19:44)
[2016-07-15] MEDS: CHLORHEXIDINE GLUCONATE 2 % 1 PACK (2 CLOTHS) TOP SCH (06:00)
[2016-07-15 06:39] LABS: HEMATOCRIT 23.4 % (39.0-51.0); MEAN CELL VOLUME 92.2 FL (80.0-100.0); MEAN CORPUSCULAR HGB CONC 32.5 % (32.0-36.0); PLATELET COUNT 67 TH/MM3 (150-450); RED BLOOD COUNT 2.54 MIL/MM3 (4.50-5.90); RED CELL DISTRIBUTION WIDTH 18.9 % (11.6-17.2); WHITE BLOOD COUNT 3.8 TH/MM3 (4.0-11.0)
[2016-07-15 06:54] LABS: ALT (GPT) 22 U/L (12-78); ANION GAP 11 MEQ/L (5-15); AST (GOT) 30 U/L (15-37); BICARBONATE 29.9 MEQ/L (21.0-32.0); BLOOD UREA NITROGEN 42 MG/DL (7-18); CHLORIDE 101 MEQ/L (98-107); GLOMERULAR FILTRATION RATE 23 ML/MIN (>89); MAGNESIUM 2.5 MG/DL (1.5-2.5); POTASSIUM 3.7 MEQ/L (3.5-5.1); SODIUM (NA) 142 MEQ/L (136-145)
[2016-07-15 06:56] LABS: ALKALINE PHOSPHATASE 114 U/L (45-117); TOTAL BILIRUBIN ADULT 0.7 MG/DL (0.2-1.0)
[2016-07-15 07:07] LABS: REVIEW FLAG FINAL
[2016-07-15] MEDS: BUDESONIDE-FORMOTEROL 80/4.5 MCG INHALER INH SCH ×2 (08:27→20:12)
[2016-07-15] MEDS: THIAMINE HCL 100 MG TAB PO SCH (09:00)
[2016-07-15] MEDS: LACTULOSE SYRUP 20 GM/30 ML CUP PO SCH ×2 (09:00→21:21)
[2016-07-15] MEDS ORDERED: DEXTROSE 50% IN WATER 50 ML VIAL(D50) IV PUSH PRN (09:45)
[2016-07-15] MEDS ORDERED: CHLOROTHIAZIDE SOD 500 MG VIAL IV ONE (09:45)
[2016-07-15] MEDS ORDERED: POTASSIUM CHLORIDE 25 MEQ EFFERVESCENT TAB PO ONE (09:45)
[2016-07-15] MEDS: PANTOPRAZOLE SODIUM 40 MG VIAL IV PUSH SCH ×2 (09:47→21:23)
[2016-07-15] MEDS: levETIRAcetam INJ 500 MG in SODIUM CHLORIDE 0.9% INJ 100 ML IV SCH ×2 (09:48→21:22)
[2016-07-15] MEDS: MULTIVITAMIN TAB PO SCH (09:48)
[2016-07-15] MEDS: CALCIUM CARBONATE 500 MG CHEWABLE TAB CHEW SCH ×2 (09:48→21:23)
[2016-07-15] MEDS: ASPIRIN 81 MG CHEW TAB CHEW SCH (09:48)
[2016-07-15] MEDS: AMIODARONE 200 MG TAB PO SCH (09:49)
[2016-07-15] MEDS: MAGNESIUM OXIDE 400 MG TAB PO SCH ×2 (09:49→21:23)
[2016-07-15] MEDS: FOLIC ACID 1 MG TAB PO SCH (09:49)
[2016-07-15] MEDS: NYSTATIN 100,000 U/GM PWD 15 GM BTL TOPICAL SCH ×2 (09:52→21:28)
[2016-07-15] MEDS: INSULIN HUMAN NPH 1,000 UNITS/10 ML VIAL SQ SCH ×2 (09:53→21:20)
--- NOTE | 2016-07-15 09:53 | HHI.CCPN ---
Subjective Remarks/Hospital Course The patient is a 66-year-old male with a past medical history of diabetes mellitus, bronchial asthma, ETOH use, cirrhosis of the liver, who presented to [facility] ED from a nursing facility for shortness of breath. The patient was recently hospitalized in the end of April, for GI bleed secondary to large duodenal ulcer. In addition he underwent arteriogram and embolization of the right gastric and GDA on May 18. He required multiple blood transfusions, intubation and mechanical ventilation. In addition, the patient had two endoscopies. On arrival to the ED the patient was hypotensive with blood pressure 94/50 and his laboratory data showed mild acute kidney injury with a BUN of 21, creatinine 1.86, lactic acidosis with lactic acid level 3.6 and elevated BNP at 427. In addition, he was found to have elevated D -dimer at 12.28. CT scan of the brain was obtained which showed no atrophy, otherwise no acute intracranial abnormalities. A VQ scan was obtained as well in the ER which showed low probability for pulmonary embolism. His initial chest x-ray from early this morning showed bilateral pleural effusions and patchy bilateral pulmonary infiltrates. Central line was placed by ED physician and a repeat chest x-ray showed right IJ central line in good position , bilateral effusions with bilateral parenchymal densities, right greater than the left. In the ER he was given 2 liters of crystalloids in addition to vancomycin, Zosyn, Solu-Medrol, bronchodilator and Bumex. He was hypotensive in the ER and the patient was placed on Levophed which is currently at three mics. Due to his respiratory distress, the patient was intubated and placed on full mechanical ventilation. When seen he is on Diprivan infusion for sedation. However, the patient is awake, alert and follows commands. ABG post intubation showed a pH of 7.35, CO2 48, pAO2 325, bicarb 26, saturation of 98%. 06/26: Patient is sedated with Diprivan. Afebrile. Off Levophed. 06/27: Extubated 06/26. Of all vasopressors. Currently on nasal cannula. Tolerating diet. Subjective 06/28: Currently complaining of chest discomfort/pleuritic with breathing and shortness of breath. On 4 L nasal cannula. Complaining of difficulty with swallowing. No bowel movement. Up in chair 4 hours yesterday. 07/08 shortly after midnight rapid response team was called for the patient's seizure-like activity. He received Ativan however shortly after seizure and became unresponsive retaining CO2 at 70s. He required endotracheal intubation for airway protection. After intubation patient became hypotensive requiring low dose of Levophed to keep his map above 65 and central line was placed. 07/09: Sedated, orally intubated on mechanical ventilation. Was transfused 1 unit PRBCs yesterday. Remains on Levophed for pressor support. 07/10: Remains encephalopathic off sedation, orally intubated on mechanical ventilation. On Levophed for pressor support. 07/11: still encephalopathic. versed turned off around 5am. 07/12: less awake today. slightly more hypoxic. not much secretions. ID consulted yesterday, started Levaquin. bronch yesterday to eval RUL mass and cytology sent. gram stain negative for bacteria. 07/13: still encephalopathic. Cr continues to rise. also net +2L despite aggressive attempts at diuresis. 07/14: no significant changes. BNP 1000 yesterday, given diuril, diamox, but still persistently net+. 07/15: net -1.8 L/24h for the first time. Cr stable. in order to remain negative , still on diamox, diuril and bumex drips. CVP still 21. otherwise no change, tolerating cpap better today, but encephalopathy persists. Objective Vital Signs Date Time Temp Pulse Resp B/P Pulse Ox O2 Delivery O2 Flow Rate FiO2 07/15/16 08:27 98 40 07/15/16 06:00 56 07/15/16 04:00 98.0 12 133/64 Intake and Output 07/14/16 07/14/16 07/15/16 08:00 16:00 00:00 Intake Total 699 ml 799 ml 810 ml Output Total 1200 ml 650 ml 1800 ml Balance -501 ml 149 ml -990 ml Result Diagram: 07/15/16 0607/15/16 06 Objective Remarks HEENT/ Neuro: Sedated/ encephalopathic, orally intubated, Pallor present, no icterus, tongue/ mucosa moist. follows commands. RASS -2. Neck: No JVD Chest/Pulm: on mech vent, air entry decreased bilaterally at bases, bilateral rhonchi no wheezing or crackles CVS: normal rate, regular rhythm. sinus by tele. GI/abdomen: soft, nontender, no guarding. Extremities: warm bilaterally, no edema A/P Assessment and Plan Assessment: 66yM with etoh cirrhosis, metabolic encephalopathy, acute kidney injury, significant acute on chronic organ dysfunction. He is not improving, and remains critically ill with a very poor prognosis. we will work towards minimizing sedation and improving his mentation. His BNP is suggestive of severe volume overload. we will continue forced diuresis, although we are maximally blocking fluid resorbption at the nephron and still struggling to maintain net negative balance. I do not think he is a good candidate for renal replacement therapy, and I think this would further worsen his overall multi- organ dysfunction. for now, goals remain aggressive per family. Neuro/Psych: ETOH History of hepatic encephalopathy we will attempt to control any agitation with haldol 5mg iv q4h prn first, now on precedex to control agitation. Seizure precautions Head CT negative for bleed/mass EEG negative for seizure. frequent neuro checks modafinil 200mg daily for hypoactive component of delirium. CV: Congestive heart failure - chronic systolic Pericardial effusion Atrial fibrillation Echocardiogension likely multifactorial: ESLD, possible low-grade septic shock , sedation Resp: Chronic 02 - 1.5 liters Acute hypoxemic respiratory failure. Congestive heart failure/infectious etiology Bronchial asthma Bilateral pleural effusions Continue mechanical ventilation, vent bundle, daily C Pap trials. Bronchodilator therapy every 4 hours and as needed VQ scan admission low probability for pulmonary embolism GI: History of celiac artery embolization left PT secondary to duodenal ulcer 06/04 Gastroesophageal reflux disease Liver cirrhosis with varices Transfused 1 unit PRBCs on 07/08. Follow CBC. Continue Protonix 40 mg iv BID TF at goal. will switch to glucerna for better glycemic control. : BPH Donaldson catheter while on diuretics for accurate I's and O's in a critically ill patient Endo: Diabetes mellitus Elevated intact parathyroid hormone Low vitamin D 25 Patient was intubated for severe hypoglycemia with FS glucose 30s on 07/07. Continue NG tube feeds Increase to 10 units NPH q12h on 07/13. swap to glucerna 07/14. increase to high dose SSI. Renal: Acute on chronic kidney injury- worsening. likely multifactorialm, volume overload, possible combination cardio-renal syndrome, hepato-renal syndrome? Followed by nephrology. Baseline creatinine 1.7. bnp > 1000. continue bumex drip at 1mg/min and continuous albumin infusion. diuril 500mg iv x 1. Avoid nephrotoxic drugs Strict intake output, monitor and replete electrolytes, Renal ultrasound revealed no hydronephrosis. Heme: Leukocytosis Normocytic anemia Left cephalic vein thrombosis Thrombocytopenia Severe anemia Monitor CBC daily Monitor trends ID: Recently treated left knee osteomyelitis completed therapy vancomycin/Diflucan Community-acquired pneumonia Pertinent cultures Blood cultures 2 - 06/25 - no growth sputum culture 07/08 growing ESBL enterobacter. ID: Dr. Bryson started Levaquin 07/11. bronch 07/11 with cytology and cultures sent for RUL mass. cultures growing GNR, speciation to follow. MSK: PT evaluate and treat FEN: Replace electrolytes as clinically indicated Access - Right subclavian placed 07/08. will trend cvp today. CVP 21 Prophylaxis - GI - Protonix - DVT - SCD/pharmacological prophylaxis held due to GI bleed Prognosis appears poor with advanced cirrhosis, encephalopathy, CHF, respiratory failure, brittle diabetes. Consulted palliative care to assist with deciding goals of therapy. Critical Care: The total care time was 31 minutes. Time to perform other separately billable procedures was not included in the critical care time. Jaime Ashley MD July 15, 2016 09:53
[2016-07-15] MEDS: LACTOBACILLUS ACIDOPHILUS TAB PO SCH ×3 (10:10→16:32)
[2016-07-15] MEDS ORDERED: SPIRONOLACTONE 25 MG TAB PO ONE (11:00)
[2016-07-15] MEDS: INSULIN NovoLIN REGULAR SUPPLEMENTAL SCALE SQ SCH ×3 (12:00→21:17)
[2016-07-15 14:06] LABS: BICARBONATE 33.4 MEQ/L (21.0-32.0); MAGNESIUM 2.7 MG/DL (1.5-2.5); POTASSIUM 4.1 MEQ/L (3.5-5.1)
--- NOTE | 2016-07-15 18:28 | HHI.IDPN ---
Subjective Subjective Remarks tolerated CPAP all day PEEP 5 FiO2 40% cont to have moderate thick secretions landa R PSAE in BAL specimen awake, communicates + diarrhea (on Lactulos) afebrile Antibiotics meropenem Allergies: Coded Allergies: *MDRO Multi-Drug Resistant Organism (Verified Adverse Reaction, Unknown, VRE, 07/11/16) ENTEROCOCCUS GALLINARUM VRE (toe wound) - 05/03/2014 VRE PCR screen POSITIVE 06/25/16 CRE (sputum)-07/11/16 Objective . Vital Signs Date Time Temp Pulse Resp B/P Pulse Ox O2 Delivery O2 Flow Rate FiO2 07/15/16 18:00 53 07/15/16 18:00 97.9 53 24 99/55 99 07/15/16 16:56 99 40 07/15/16 16:00 98.0 59 26 128/60 98 07/15/16 16:00 40 07/15/16 16:00 59 07/15/16 14:00 54 07/15/16 14:00 97.5 54 21 122/59 97 07/15/16 12:52 96 40 07/15/16 12:00 40 07/15/16 12:00 97.7 54 22 118/59 97 07/15/16 12:00 54 07/15/16 10:00 97.8 53 21 130/64 98 07/15/16 10:00 53 07/15/16 08:27 98 40 07/15/16 08:27 40 07/15/16 08:00 40 07/15/16 08:00 97.6 54 19 126/61 98 07/15/16 08:00 54 07/15/16 06:00 56 07/15/16 04:00 40 07/15/16 04:00 98.0 56 12 133/64 96 07/15/16 04:00 56 07/15/16 03:52 100 40 07/15/16 02:00 59 07/15/16 01:30 98 40 07/15/16 00:00 97.9 59 18 117/59 99 07/15/16 00:00 57 07/15/16 00:00 40 07/14/16 22:05 99 40 07/14/16 22:00 64 07/14/16 21:00 99 40 07/14/16 20:00 61 07/14/16 20:00 40 07/14/16 20:00 98.7 61 25 124/61 99 07/14/16 19:43 100 40 07/14/16 07/14/16 07/15/16 15:00 23:00 07:00 Intake Total 799 ml 810 ml 654 ml Output Total 650 ml 1800 ml 1700 ml Balance 149 ml -990 ml -1046 ml IV Total 344 ml 368 ml 232 ml Tube Feeding 455 ml 382 ml 362 ml Tube Irrigant 60 ml 60 ml Output Urine Total 650 ml 1800 ml 1700 ml # Bowel Movements 1 3 . Laboratory Tests Test 07/14/16 07/15/16 06:00 06:00 White Blood Count 4.3 TH/MM3 3.8 TH/MM3 Red Blood Count 2.57 MIL/MM3 2.54 MIL/MM3 Hemoglobin 8.0 GM/DL 7.6 GM/DL Hematocrit 23.6 % 23.4 % Mean Corpuscular Volume 92.0 FL 92.2 FL Mean Corpuscular Hemoglobin 31.1 PG 30.0 PG Mean Corpuscular Hemoglobin 33.7 % 32.5 % Concent Red Cell Distribution Width 18.8 % 18.9 % Platelet Count 72 TH/MM3 67 TH/MM3 Mean Platelet Volume 9.1 FL 9.7 FL Laboratory Tests Test 07/14/16 07/14/16 07/14/16 07/15/16 06:00 16:18 21:28 01:00 Sodium Level 140 MEQ/L 141 MEQ/L 142 MEQ/L 143 MEQ/L Potassium Level 3.9 MEQ/L 3.9 MEQ/L 4.0 MEQ/L 3.9 MEQ/L Chloride Level 103 MEQ/L 101 MEQ/L 101 MEQ/L 101 MEQ/L Carbon Dioxide Level 28.6 MEQ/L 33.4 MEQ/L 32.3 MEQ/L 32.1 MEQ/L Anion Gap 8 MEQ/L 7 MEQ/L 9 MEQ/L 10 MEQ/L Blood Urea Nitrogen 41 MG/DL 44 MG/DL 41 MG/DL 43 MG/DL Creatinine 2.73 MG/DL 2.78 MG/DL 2.68 MG/DL 2.75 MG/DL Estimat Glomerular Filtration 23 ML/MIN 23 ML/MIN 24 ML/MIN 23 ML/MIN Rate Random Glucose 280 MG/DL 235 MG/DL 247 MG/DL 230 MG/DL Calcium Level 8.6 MG/DL 8.9 MG/DL 9.0 MG/DL 9.1 MG/DL Magnesium Level 2.4 MG/DL 2.5 MG/DL 2.5 MG/DL 2.6 MG/DL Total Bilirubin 0.6 MG/DL Aspartate Amino Transf 23 U/L (AST/SGOT) Alanine Aminotransferase 21 U/L (ALT/SGPT) Alkaline Phosphatase 114 U/L Ammonia 28 MCMOL/L Total Protein 6.6 GM/DL Albumin 3.0 GM/DL Test 07/15/16 07/15/16 06:00 13:20 Sodium Level 142 MEQ/L 142 MEQ/L Potassium Level 3.7 MEQ/L 4.1 MEQ/L Chloride Level 101 MEQ/L 100 MEQ/L Carbon Dioxide Level 29.9 MEQ/L 33.4 MEQ/L Anion Gap 11 MEQ/L 9 MEQ/L Blood Urea Nitrogen 42 MG/DL 47 MG/DL Creatinine 2.79 MG/DL 2.74 MG/DL Estimat Glomerular Filtration 23 ML/MIN 23 ML/MIN Rate Random Glucose 242 MG/DL 279 MG/DL Calcium Level 9.1 MG/DL 9.5 MG/DL Magnesium Level 2.5 MG/DL 2.7 MG/DL Total Bilirubin 0.7 MG/DL Aspartate Amino Transf 30 U/L (AST/SGOT) Alanine Aminotransferase 22 U/L (ALT/SGPT) Alkaline Phosphatase 114 U/L Ammonia 29 MCMOL/L Total Protein 6.8 GM/DL Albumin 3.4 GM/DL Imaging Last Impressions Chest X-Ray 07/12/16 0000 Signed Impressions: Service Date/Time: June 10:35 - CONCLUSION: 1. Support apparatus unchanged. Stable bilateral airspace disease and pleural effusions. Randy Byrne MD Brain MRI 07/10/16 0000 Signed Impressions: Service Date/Time: Sunday, July 10, 2016 13:32 - CONCLUSION: 1. Nonspecific white matter changes. 2. No acute infarction. 3. Tiny remote right parietal infarct. Pepito Kulkarni MD Head CT 07/08/16 0016 Signed Impressions: Service Date/Time: Friday, July 08, 2016 02:22 - CONCLUSION: 1. No acute findings. Mild atrophy. Randy Byrne MD Thoracentesis Ultrasound 07/05/16 0600 Signed Impressions: Service Date/Time: June 10:34 - CONCLUSION: Uncomplicated ultrasound guided thoracentesis. Edgar Rice MD Chest CT 07/02/16 0000 Signed Impressions: Service Date/Time: Saturday, July 02, 2016 23:35 - CONCLUSION: 1. Moderate sized bilateral pleural effusions with dense consolidation in both posterior lower lobes. 2. Right upper lobe bronchiectasis with 4 cm mass like area in the right upper lobe. 3. Cardiomegaly with small pericardial effusion. 4. Cirrhotic liver. 5. Mild splenomegaly with multiple varices in the upper left abdomen. Carlos Watts MD Upper Extremity Ultrasound 06/25/16 0000 Signed Impressions: Service Date/Time: Saturday, June 25, 2016 12:29 - CONCLUSION: 1. Occlusive thrombus in the left cephalic vein. 2. No deep venous thrombosis from the right arm.. Pepito Kulkarni MD Renal Ultrasound 06/25/16 0000 Signed Impressions: Service Date/Time: Saturday, June 25, 2016 22:41 - CONCLUSION: 1. Unremarkable kidneys. 2. Small volume ascites. 3. Bilateral pleural effusions. 4. Splenomegaly. Carroll Joel Jr., MD Lung Scan-V Nuclear Medicine 06/25/16 0000 Signed Impressions: Service Date/Time: Saturday, June 25, 2016 08:33 - CONCLUSION: Low probability for pulmonary embolism. Moderate ventilatory defect. Alexy Padron MD FACR Physical Exam CONSTITUTIONAL/GENERAL: This is an adequately nourished patient, in no apparent distress. On vent TUBES/LINES/DRAINS: SKIN: No jaundice, rashes, or lesions. HHENT: no icterus; PERRL EOMI orally intubated,., moist mucosae; CARDIOVASCULAR: Regular rate and rhythm without murmurs, gallops, or rubs. No JVD. Peripheral pulses symmetric. RESPIRATORY/CHEST: Scattered rhonchi to auscultation. Breath sounds coarse. GASTROINTESTINAL: Abdomen soft, non-tender, mildly to moderrately distended. No hepato-splenomegaly, or palpable masses. No guarding. Bowel sounds present. GENITOURINARY: Without palpable bladder distension. Donaldson catheter in place with clear yellow urine. UOP marginal Edema of scrotum MUSCULOSKELETAL: Extremities without clubbing, cyanosis, 2-3+ edema, still quite prominent . NEUROLOGICAL: awake alert, eyes opend follows commnds and trying to mouth words PSYCH: calm Assessment & Plan Remarks VDRF - tolerating CPAP today - decreasing vent requirements PNA, RUL mass ? cavitary - abscess ? CA ? myconbacterial - growing MDRO Enterobacter in sputum - growing landa R PSAE and MDRO Enterobacter from BAL - AFB/ananth neg; cyto P Metabolic encephalopathy Mult med problems New thrombo and leukopenia noted - improving -dc meropenem, - start zerbaxa and Levaquine - added sensitivities to avicaz, zerbaxa, colistin -will take few days to process Nell Turner RN, Dr, MD July 15, 2016 18:28
[2016-07-15 18:57] LABS: BICARBONATE 30.9 MEQ/L (21.0-32.0); MAGNESIUM 2.5 MG/DL (1.5-2.5)
[2016-07-15] MEDS: CEFTOLOZANE-TAZOBACTAM INJ 375 MG in SODIUM CHLORIDE 0.9% INJ 100 ML IV SCH (20:25)
[2016-07-15] MEDS ORDERED: LEVOFLOXACIN 750 MG PREMIX INJ 150 ML IV SCH (21:00)
[2016-07-16] VITALS (18 sets, daily range): BP systolic 104–142; BP diastolic 51–66; PULSE 23–63; RESP 20–25; TEMP 97.8–98.8; O2SAT 95–99
[2016-07-16] MEDS: INSULIN NovoLIN REGULAR SUPPLEMENTAL SCALE SQ SCH ×7 (01:00→23:18)
[2016-07-16] MEDS: DEXMEDETOMIDINE 200 MCG in NS 50 ML IV SCH ×4 (01:10→22:31)
[2016-07-16 01:37] LABS: BICARBONATE 34.1 MEQ/L (21.0-32.0); MAGNESIUM 2.5 MG/DL (1.5-2.5)
[2016-07-16] MEDS: CHLORHEXIDINE GLUCONATE 2 % 1 PACK (2 CLOTHS) TOP SCH (03:00)
[2016-07-16] MEDS: CEFTOLOZANE-TAZOBACTAM INJ 375 MG in SODIUM CHLORIDE 0.9% INJ 100 ML IV SCH ×3 (05:10→20:10)
[2016-07-16 05:55] LABS: HEMATOCRIT 23.5 % (39.0-51.0); MEAN CELL VOLUME 92.4 FL (80.0-100.0); MEAN CORPUSCULAR HEMOGLOBIN 30.1 PG (27.0-34.0); MEAN CORPUSCULAR HGB CONC 32.5 % (32.0-36.0); PLATELET COUNT 67 TH/MM3 (150-450); RED BLOOD COUNT 2.55 MIL/MM3 (4.50-5.90); RED CELL DISTRIBUTION WIDTH 18.7 % (11.6-17.2); WHITE BLOOD COUNT 3.8 TH/MM3 (4.0-11.0)
[2016-07-16 06:01] LABS: REVIEW FLAG FINAL
[2016-07-16 06:12] LABS: ANION GAP 6 MEQ/L (5-15); AST (GOT) 35 U/L (15-37); BICARBONATE 33.7 MEQ/L (21.0-32.0); BLOOD UREA NITROGEN 53 MG/DL (7-18); CHLORIDE 102 MEQ/L (98-107); GLOMERULAR FILTRATION RATE 23 ML/MIN (>89); MAGNESIUM 2.6 MG/DL (1.5-2.5); SODIUM (NA) 142 MEQ/L (136-145)
[2016-07-16 06:15] LABS: ALKALINE PHOSPHATASE 135 U/L (45-117); ALT (GPT) 29 U/L (12-78); TOTAL BILIRUBIN ADULT 0.5 MG/DL (0.2-1.0)
[2016-07-16] MEDS: LACTULOSE SYRUP 20 GM/30 ML CUP PO SCH ×2 (08:00→20:10)
[2016-07-16] MEDS: NYSTATIN 100,000 U/GM PWD 15 GM BTL TOPICAL SCH ×2 (08:00→20:00)
[2016-07-16] MEDS: INSULIN HUMAN NPH 1,000 UNITS/10 ML VIAL SQ SCH ×2 (08:04→20:03)
[2016-07-16] MEDS: CALCIUM CARBONATE 500 MG CHEWABLE TAB CHEW SCH ×2 (08:06→19:59)
[2016-07-16] MEDS: ASPIRIN 81 MG CHEW TAB CHEW SCH (08:06)
[2016-07-16] MEDS: LACTOBACILLUS ACIDOPHILUS TAB PO SCH ×3 (08:06→16:00)
[2016-07-16] MEDS: MULTIVITAMIN TAB PO SCH (08:06)
[2016-07-16] MEDS: levETIRAcetam INJ 500 MG in SODIUM CHLORIDE 0.9% INJ 100 ML IV SCH ×2 (08:06→19:59)
[2016-07-16] MEDS: PANTOPRAZOLE SODIUM 40 MG VIAL IV PUSH SCH ×2 (08:06→19:59)
[2016-07-16] MEDS: MAGNESIUM OXIDE 400 MG TAB PO SCH ×2 (08:06→20:00)
[2016-07-16] MEDS: FOLIC ACID 1 MG TAB PO SCH (08:06)
[2016-07-16] MEDS: AMIODARONE 200 MG TAB PO SCH (08:06)
[2016-07-16] MEDS: THIAMINE HCL 100 MG TAB PO SCH (08:06)
[2016-07-16] MEDS: BUDESONIDE-FORMOTEROL 80/4.5 MCG INHALER INH SCH ×2 (08:53→20:00)
[2016-07-16] MEDS: RESP: ALBUTEROL 2.5 MG/3 ML NEB (PRN) NEB (08:53)
--- NOTE | 2016-07-16 11:39 | HHI.CCPN ---
Subjective Remarks/Hospital Course The patient is a 66-year-old male with a past medical history of diabetes mellitus, bronchial asthma, ETOH use, cirrhosis of the liver, who presented to [facility] ED from a nursing facility for shortness of breath. The patient was recently hospitalized in the end of April, for GI bleed secondary to large duodenal ulcer. In addition he underwent arteriogram and embolization of the right gastric and GDA on May 18. He required multiple blood transfusions, intubation and mechanical ventilation. In addition, the patient had two endoscopies. On arrival to the ED the patient was hypotensive with blood pressure 94/50 and his laboratory data showed mild acute kidney injury with a BUN of 21, creatinine 1.86, lactic acidosis with lactic acid level 3.6 and elevated BNP at 427. In addition, he was found to have elevated D -dimer at 12.28. CT scan of the brain was obtained which showed no atrophy, otherwise no acute intracranial abnormalities. A VQ scan was obtained as well in the ER which showed low probability for pulmonary embolism. His initial chest x-ray from early this morning showed bilateral pleural effusions and patchy bilateral pulmonary infiltrates. Central line was placed by ED physician and a repeat chest x-ray showed right IJ central line in good position , bilateral effusions with bilateral parenchymal densities, right greater than the left. In the ER he was given 2 liters of crystalloids in addition to vancomycin, Zosyn, Solu-Medrol, bronchodilator and Bumex. He was hypotensive in the ER and the patient was placed on Levophed which is currently at three mics. Due to his respiratory distress, the patient was intubated and placed on full mechanical ventilation. When seen he is on Diprivan infusion for sedation. However, the patient is awake, alert and follows commands. ABG post intubation showed a pH of 7.35, CO2 48, pAO2 325, bicarb 26, saturation of 98%. 06/26: Patient is sedated with Diprivan. Afebrile. Off Levophed. 06/27: Extubated 06/26. Of all vasopressors. Currently on nasal cannula. Tolerating diet. Subjective 06/28: Currently complaining of chest discomfort/pleuritic with breathing and shortness of breath. On 4 L nasal cannula. Complaining of difficulty with swallowing. No bowel movement. Up in chair 4 hours yesterday. 07/08 shortly after midnight rapid response team was called for the patient's seizure-like activity. He received Ativan however shortly after seizure and became unresponsive retaining CO2 at 70s. He required endotracheal intubation for airway protection. After intubation patient became hypotensive requiring low dose of Levophed to keep his map above 65 and central line was placed. 07/09: Sedated, orally intubated on mechanical ventilation. Was transfused 1 unit PRBCs yesterday. Remains on Levophed for pressor support. 07/10: Remains encephalopathic off sedation, orally intubated on mechanical ventilation. On Levophed for pressor support. 07/11: still encephalopathic. versed turned off around 5am. 07/12: less awake today. slightly more hypoxic. not much secretions. ID consulted yesterday, started Levaquin. bronch yesterday to eval RUL mass and cytology sent. gram stain negative for bacteria. 07/13: still encephalopathic. Cr continues to rise. also net +2L despite aggressive attempts at diuresis. 07/14: no significant changes. BNP 1000 yesterday, given diuril, diamox, but still persistently net+. 07/15: net -1.8 L/24h for the first time. Cr stable. in order to remain negative , still on diamox, diuril and bumex drips. CVP still 21. otherwise no change, tolerating cpap better today, but encephalopathy persists. 07/16: net -1.3L/24h. Cr stable. however, CVP still elevated. still very encephalopathic. now with copious diarrhea. vasopressors off this morning. BALs growing landa-resistant pseudomonas, ID on board. Objective Vital Signs Date Time Temp Pulse Resp B/P Pulse Ox O2 Delivery O2 Flow Rate FiO2 07/16/16 10:00 63 07/16/16 08:54 40 07/16/16 08:54 97 07/16/16 08:00 98.2 20 130/61 Intake and Output 07/15/16 07/15/16 07/15/16 07:59 15:59 23:59 Intake Total 654 ml 853 ml 1072 ml Output Total 1700 ml 1350 ml 1100 ml Balance -1046 ml -497 ml -28 ml Result Diagram: 07/16/16 0540 07/16/16 0540 Objective Remarks HEENT/ Neuro: Sedated/ encephalopathic, orally intubated, Pallor present, no icterus, tongue/ mucosa moist. follows commands. RASS -2. Neck: No JVD Chest/Pulm: on mech vent, air entry decreased bilaterally at bases, bilateral rhonchi no wheezing or crackles CVS: normal rate, regular rhythm. sinus by tele. GI/abdomen: soft, nontender, no guarding. Extremities: warm bilaterally, no edema A/P Assessment and Plan Assessment: 66yM with etoh cirrhosis, metabolic encephalopathy, acute kidney injury, significant acute on chronic organ dysfunction. He is not improving, and remains critically ill with a very poor prognosis. we will work towards minimizing sedation and improving his mentation. His BNP is suggestive of severe volume overload. we will continue forced diuresis, although we are maximally blocking fluid resorption at the nephron and still struggling to maintain net negative balance. I do not think he is a good candidate for renal replacement therapy, and I think this would further worsen his overall multi- organ dysfunction. for now, goals remain aggressive per family. Neuro/Psych: ETOH History of hepatic encephalopathy we will attempt to control any agitation with haldol 5mg iv q4h prn first, now on precedex to control agitation. Seizure precautions Head CT negative for bleed/mass EEG negative for seizure. frequent neuro checks modafinil 200mg daily for hypoactive component of delirium. CV: Congestive heart failure - chronic systolic Pericardial effusion Atrial fibrillation -- continue levophed for goal map > 65 -- will start milrinone 0.25 mcg/kg/min to help increase perfusion to the kidney and assist with diuresis. Resp: Chronic 02 - 1.5 liters Acute hypoxemic respiratory failure. Congestive heart failure/infectious etiology Bronchial asthma Bilateral pleural effusions Continue mechanical ventilation, vent bundle, daily C Pap trials. still failing for mental status Bronchodilator therapy every 4 hours and as needed VQ scan admission low probability for pulmonary embolism GI: History of celiac artery embolization left PT secondary to duodenal ulcer 06/04 Gastroesophageal reflux disease Liver cirrhosis with varices Transfused 1 unit PRBCs on 07/08. Follow CBC. Continue Protonix 40 mg iv BID TF at goal. glucerna for better glycemic control. : BPH Donaldson catheter while on diuretics for accurate I's and O's in a critically ill patient Endo: Diabetes mellitus Elevated intact parathyroid hormone Low vitamin D 25 Patient was intubated for severe hypoglycemia with FS glucose 30s on 07/07. Continue NG tube feeds Increase to 15 units NPH q12h on 07/16. swap to glucerna 07/14. increase to high dose SSI. Renal: intravascular volume overload Acute on chronic kidney injury- worsening. likely multifactorialm, volume overload, possible combination cardio-renal syndrome, hepato-renal syndrome? Followed by nephrology. Baseline creatinine 1.7. bnp > 1000. continue bumex drip at 1mg/min diuril 500mg iv q12h diamox 500mg iv q8h spironolactone 25mg po daily Avoid nephrotoxic drugs Strict intake output, monitor and replete electrolytes, Renal ultrasound revealed no hydronephrosis. Heme: Leukocytosis Normocytic anemia Left cephalic vein thrombosis Thrombocytopenia Severe anemia Monitor CBC daily Monitor trends ID: Recently treated left knee osteomyelitis completed therapy vancomycin/Diflucan Community-acquired pneumonia Pertinent cultures Blood cultures 2 - 06/25 - no growth sputum culture 07/08 growing resistant enterobacter. ID: Dr. Bryson started Levaquin 07/11. bronch 07/11 with cytology and cultures sent for RUL mass. cultures growing pansensitive PSAE. ID on board. [email or web address]. MSK: PT evaluate and treat FEN: Replace electrolytes as clinically indicated Access - Right subclavian placed 07/08. will trend cvp. still high. Prophylaxis - GI - Protonix - DVT - SCD/pharmacological prophylaxis held due to GI bleed Prognosis appears poor with advanced cirrhosis, encephalopathy, CHF, respiratory failure, brittle diabetes. Consulted palliative care to assist with deciding goals of therapy. Critical Care: The total care time was 40 minutes. Time to perform other separately billable procedures was not included in the critical care time. Jaime Ashley MD July 16, 2016 11:39
[2016-07-16] MEDS: SPIRONOLACTONE 25 MG TAB PO SCH (12:15)
[2016-07-16] MEDS: CHLOROTHIAZIDE SOD 500 MG VIAL IV SCH ×2 (12:45→22:31)
[2016-07-16] MEDS: MILRINONE IV SCH ×4 (13:13→21:09)
[2016-07-16] MEDS: NS IV SCH ×4 (13:13→21:09)
--- NOTE | 2016-07-16 13:36 | HHI.HCPN ---
Reason for visit a. To assist with evaluation and management of symptoms including: dyspnea , encephalopathy, pain; agitation b. To assist medical decision maker(s) with: better understanding of current medical conditions; weighing benefits/burdens of medical treatment options; making medical treatment decisions. . Subjective/Interval History Pt is a 66 year old with COPD, DM, cirrohsis, duodenal ulcer with GI bleed that has had 3 recent hospitalization. Seen 05/14/16 to 06/06/2016 for knee pain but found to have GI bleed, and sepsis requiring intubation and mechanical ventilation. He required embolization. Stablized and went to correction facility. Pt returned to the hospital for anemia with hgb of 6.9 and was transfused. Pt returned to nursing facility. For this hospitalization pt came in on 06/25 for dyspnea. Course of hospital complicated by respiratory failure and ICU admission. Pt was able to be extubated 06/26 and off vasopressors but eventually became dyspneic again, that by 07/08 pt had seizure like activity and needed to be intubated again. Pt became hypotensive and required levophed. He is encephalopathic despite being off sedation. CT imaging shows 4 cm mass in RUL. 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 Pt remains intubated. ID following. He also has copious diarrhea. Pt EF is 35 to 40%. He remains on kepra and neurology following for seizures, and remains encephalopathic. 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 Baseline Cr is 1.7 and current Cr is 2.72. nephorlogy continues to follow. He has advance cirrohsis, GI bleed risk. He is off vasopressors today. On my visit pt remains intubated, with landa resistent psuedonmonas, encephalopathic, diarrhea, cirrohsis, with renal failure. He is unresponsive. Chest X ray continue to show basilar airspace disease and pleural effusion. Given clinical condition, purchasing contracting clerk ask us to speak with family again, as prognosis is poor. He remains intubated, and is on precedex, and on restraints. Open eyes, but could not follow commands, remains confused. . Family/friend interactions Landa resistent psuedonmonas, encephalopathic, diarrhea, cirrohsis, with renal failure (Baseline Cr is 1.7 and current Cr is 2.72. nephorlogy continues to follow). He is unresponsive. Dissussed with Proxy and prognosis is poor, and it does not appear that pt will improve well enough to review his own goals of care. Spoke with review with brother course of hospitalization and resent results, and poor prognosis. He is amenable to No cod/DNR/DNI. Will meet with pt's brother tomorrow at 9:45 AM and likely transition to comfort measures only. He says "its time to let him go." Acknowledge it does not make sense to do peg/trach given poor prognosis. Advance Directives Living Will: Never completed Health Care Surrogate: Never completed Durable Power of Tugboat Mate: Never completed Advance Directive Specifics Date completed: There is a scanned community DO NOT RESUSCITATE order on the chart dated . It appears to have been signed by the patient. Health Care Surrogate(s): No known written designation of healthcare surrogate. . Documented care wishes: No known written documentation of health care preferences/goals. . Objective Vital Signs Date Time Temp Pulse Resp B/P Pulse Ox O2 Delivery O2 Flow Rate FiO2 07/16/16 12:00 56 07/16/16 12:00 98.7 56 21 108/54 96 07/16/16 12:00 40 07/16/16 11:58 96 40 07/16/16 10:00 63 07/16/16 08:54 40 07/16/16 08:54 97 40 07/16/16 08:00 40 07/16/16 08:00 98.2 23 20 130/61 96 07/16/16 08:00 61 07/16/16 06:00 60 07/16/16 04:45 99 40 07/16/16 04:00 40 07/16/16 04:00 98.8 32 20 124/58 99 07/16/16 04:00 62 07/16/16 02:00 61 07/16/16 01:33 97 40 07/16/16 00:00 57 07/16/16 00:00 40 07/16/16 00:00 98.2 57 25 142/66 95 07/15/16 22:26 100 40 07/15/16 22:00 53 07/15/16 20:00 97.7 52 20 98/56 100 07/15/16 20:00 40 07/15/16 20:00 52 07/15/16 19:45 100 40 07/15/16 18:00 53 07/15/16 18:00 97.9 53 24 99/55 99 07/15/16 16:56 99 40 07/15/16 16:00 98.0 59 26 128/60 98 07/15/16 16:00 40 07/15/16 16:00 59 07/15/16 14:00 54 07/15/16 14:00 97.5 54 21 122/59 97 Intake & Output 07/16/16 07/16/16 07:00 19:00 Intake Total 1714 ml Output Total 2550 ml Balance -836 ml IV Total 957 ml Tube Feeding 757 ml Output Urine Total 2550 ml # Bowel Movements 3 Physical Exam CONSTITUTIONAL/GENERAL: This is an adequately nourished patient, intubated, in the SICU. Sedated with dexemetetomidine No evidence of distress. Stirs slightly to loud voice/exam, but does not awaken. TUBES/LINES/DRAINS: Orotracheal tube; orogastric tube; soft wrist restraints; Donaldson catheter; SCDs; right subclavicular central line; peripheral IV; rectal tube SKIN: No jaundice, rashes, or lesions. Ecchymoses on upper extremities. No wounds seen anteriorly. Skin temperature appropriate. Not diaphoretic. EYES: Pupils equal and round . Constricted. Cannot evaluate extraocular movements-- doesn't track. No scleral icterus. No injection or drainage. Fundi not examined. ENT: Unable to evaluate hearing due to level of responsiveness. Nose without bleeding or purulent drainage. Throat without visible erythema, exudates, masses , or lesions though oropharynx is difficult to visualize due to intubations NECK: Trachea midline. CARDIOVASCULAR: Regular rate (borderline bradycardia) and rhythm without murmurs, gallops, or rubs. No JVD. RESPIRATORY/CHEST: Symmetric, unlabored respirations. Breath sounds equal bilaterally. Bilateral ronchi. No wheezes. GASTROINTESTINAL: Abdomen moderately tense, non-tender, distended. No hepato- splenomegaly, or palpable masses but difficult to palpate due to level of distension. No guarding. Bowel sounds hypoactive. GENITOURINARY: Without palpable bladder distension. Donaldson catheter in place. Significnat scrotal edema present. MUSCULOSKELETAL: Extremities without clubbing, cyanosis. Bilateral upper extremity pitting edema is present. The right great and second toes have been surgically removed. No mottling or clubbing. LYMPHATICS: Not examined. NEUROLOGICAL: On dexmetetomidine. Stirs to loud voice/exam but does not awaken. Does not withdraw to noxious stimuli. No seizure activity noted. PSYCHIATRIC: Unable to assess due to level of sedation and responsiveness . Diagnostic Tests Laboratory Laboratory Tests Test 07/13/16 07/14/16 07/14/16 07/14/16 14:30 06:00 16:18 21:28 B-Type Natriuretic Peptide 1006 PG/ML (0-100) White Blood Count 4.3 TH/MM3 (4.0-11.0) Red Blood Count 2.57 MIL/MM3 (4.50-5.90) Hemoglobin 8.0 GM/DL (13.0-17.0) Hematocrit 23.6 % (39.0-51.0) Mean Corpuscular Volume 92.0 FL (80.0-100.0) Mean Corpuscular Hemoglobin 31.1 PG (27.0-34.0) Mean Corpuscular Hemoglobin 33.7 % Concent (32.0-36.0) Red Cell Distribution Width 18.8 % (11.6-17.2) Platelet Count 72 TH/MM3 (150-450) Mean Platelet Volume 9.1 FL (7.0-11.0) Sodium Level 140 MEQ/L 141 MEQ/L 142 MEQ/L (136-145) (136-145) (136-145) Potassium Level 3.9 MEQ/L 3.9 MEQ/L 4.0 MEQ/L (3.5-5.1) (3.5-5.1) (3.5-5.1) Chloride Level 103 MEQ/L 101 MEQ/L 101 MEQ/L (98-107) (98-107) (98-107) Carbon Dioxide Level 28.6 MEQ/L 33.4 MEQ/L 32.3 MEQ/L (21.0-32.0) (21.0-32.0) (21.0-32.0) Anion Gap 8 MEQ/L (5-15) 7 MEQ/L (5-15) 9 MEQ/L (5-15) Blood Urea Nitrogen 41 MG/DL (7-18) 44 MG/DL (7-18) 41 MG/DL (7-18) Creatinine 2.73 MG/DL 2.78 MG/DL 2.68 MG/DL (0.60-1.30) (0.60-1.30) (0.60-1.30) Estimat Glomerular Filtration 23 ML/MIN (>89) 23 ML/MIN (>89) 24 ML/MIN (>89) Rate Random Glucose 280 MG/DL 235 MG/DL 247 MG/DL (74-106) (74-106) (74-106) Calcium Level 8.6 MG/DL 8.9 MG/DL 9.0 MG/DL (8.5-10.1) (8.5-10.1) (8.5-10.1) Magnesium Level 2.4 MG/DL 2.5 MG/DL 2.5 MG/DL (1.5-2.5) (1.5-2.5) (1.5-2.5) Total Bilirubin 0.6 MG/DL (0.2-1.0) Aspartate Amino Transf 23 U/L (15-37) (AST/SGOT) Alanine Aminotransferase 21 U/L (12-78) (ALT/SGPT) Alkaline Phosphatase 114 U/L (45-117) Ammonia 28 MCMOL/L (11-32) Total Protein 6.6 GM/DL (6.4-8.2) Albumin 3.0 GM/DL (3.4-5.0) Test 07/15/16 07/15/16 07/15/16 07/15/16 01:00 06:00 13:20 18:10 Sodium Level 143 MEQ/L 142 MEQ/L 142 MEQ/L 140 MEQ/L (136-145) (136-145) (136-145) (136-145) Potassium Level 3.9 MEQ/L 3.7 MEQ/L 4.1 MEQ/L 4.0 MEQ/L (3.5-5.1) (3.5-5.1) (3.5-5.1) (3.5-5.1) Chloride Level 101 MEQ/L 101 MEQ/L 100 MEQ/L 100 MEQ/L (98-107) (98-107) (98-107) (98-107) Carbon Dioxide Level 32.1 MEQ/L 29.9 MEQ/L 33.4 MEQ/L 30.9 MEQ/L (21.0-32.0) (21.0-32.0) (21.0-32.0) (21.0-32.0) Anion Gap 10 MEQ/L (5-15) 11 MEQ/L (5-15) 9 MEQ/L (5-15) 9 MEQ/L (5-15) Blood Urea Nitrogen 43 MG/DL (7-18) 42 MG/DL (7-18) 47 MG/DL (7-18) 50 MG/DL (7- 18) Creatinine 2.75 MG/DL 2.79 MG/DL 2.74 MG/DL 2.74 MG/DL (0.60-1.30) (0.60-1.30) (0.60-1.30) (0.60-1.30) Estimat Glomerular Filtration 23 ML/MIN (>89) 23 ML/MIN (>89) 23 ML/MIN (>89) 23 ML/MIN (>89) Rate Random Glucose 230 MG/DL 242 MG/DL 279 MG/DL 297 MG/DL (74-106) (74-106) (74-106) (74-106) Calcium Level 9.1 MG/DL 9.1 MG/DL 9.5 MG/DL 9.0 MG/DL (8.5-10.1) (8.5-10.1) (8.5-10.1) (8.5-10.1) Magnesium Level 2.6 MG/DL 2.5 MG/DL 2.7 MG/DL 2.5 MG/DL (1.5-2.5) (1.5-2.5) (1.5-2.5) (1.5-2.5) White Blood Count 3.8 TH/MM3 (4.0-11.0) Red Blood Count 2.54 MIL/MM3 (4.50-5.90) Hemoglobin 7.6 GM/DL (13.0-17.0) Hematocrit 23.4 % (39.0-51.0) Mean Corpuscular Volume 92.2 FL (80.0-100.0) Mean Corpuscular Hemoglobin 30.0 PG (27.0-34.0) Mean Corpuscular Hemoglobin 32.5 % Concent (32.0-36.0) Red Cell Distribution Width 18.9 % (11.6-17.2) Platelet Count 67 TH/MM3 (150-450) Mean Platelet Volume 9.7 FL (7.0-11.0) Total Bilirubin 0.7 MG/DL (0.2-1.0) Aspartate Amino Transf 30 U/L (15-37) (AST/SGOT) Alanine Aminotransferase 22 U/L (12-78) (ALT/SGPT) Alkaline Phosphatase 114 U/L (45-117) Ammonia 29 MCMOL/L (11-32) Total Protein 6.8 GM/DL (6.4-8.2) Albumin 3.4 GM/DL (3.4-5.0) Test 07/16/16 07/16/16 00:35 05:40 Sodium Level 142 MEQ/L 142 MEQ/L (136-145) (136-145) Potassium Level 4.0 MEQ/L 4.0 MEQ/L (3.5-5.1) (3.5-5.1) Chloride Level 100 MEQ/L 102 MEQ/L (98-107) (98-107) Carbon Dioxide Level 34.1 MEQ/L 33.7 MEQ/L (21.0-32.0) (21.0-32.0) Anion Gap 8 MEQ/L (5-15) 6 MEQ/L (5-15) Blood Urea Nitrogen 51 MG/DL (7-18) 53 MG/DL (7-18) Creatinine 2.69 MG/DL 2.72 MG/DL (0.60-1.30) (0.60-1.30) Estimat Glomerular Filtration 24 ML/MIN (>89) 23 ML/MIN (>89) Rate Random Glucose 225 MG/DL 228 MG/DL (74-106) (74-106) Calcium Level 9.4 MG/DL 9.4 MG/DL (8.5-10.1) (8.5-10.1) Magnesium Level 2.5 MG/DL 2.6 MG/DL (1.5-2.5) (1.5-2.5) White Blood Count 3.8 TH/MM3 (4.0-11.0) Red Blood Count 2.55 MIL/MM3 (4.50-5.90) Hemoglobin 7.7 GM/DL (13.0-17.0) Hematocrit 23.5 % (39.0-51.0) Mean Corpuscular Volume 92.4 FL (80.0-100.0) Mean Corpuscular Hemoglobin 30.1 PG (27.0-34.0) Mean Corpuscular Hemoglobin 32.5 % Concent (32.0-36.0) Red Cell Distribution Width 18.7 % (11.6-17.2) Platelet Count 67 TH/MM3 (150-450) Mean Platelet Volume 9.3 FL (7.0-11.0) Total Bilirubin 0.5 MG/DL (0.2-1.0) Aspartate Amino Transf 35 U/L (15-37) (AST/SGOT) Alanine Aminotransferase 29 U/L (12-78) (ALT/SGPT) Alkaline Phosphatase 135 U/L (45-117) Ammonia 30 MCMOL/L (11-32) Total Protein 6.8 GM/DL (6.4-8.2) Albumin 3.2 GM/DL (3.4-5.0) Result Diagram: 07/16/16 0540 07/16/16 0540 Procedures * Intubation/mechanical ventilation * Right subclavicular central line placement * Bronchoscopy 07/11/16 . Assessment and Plan Disease Oriented Problem List: (1) Bilateral pleural effusion (2) Cardiomyopathy Comment: Echocardiogram of 06/25/16 revealed an ejection fraction of 35-40% with no regional wall motion abnormalities. . (3) Pericardial effusion Comment: Echocardiogram of 06/25/16 showed a pericardial effusion. (4) Seizure Comment: Possible seizure activity noted on 07/08/16. Neurology consulted. On levitiracetam. . (5) Acute on chronic renal insufficiency Comment: GFR improved after admission and now is declining again. . (6) Diabetes mellitus Comment: Poorly controlled as an outpatient. Not very compliant with lifestyle recommendations. . (7) Acute respiratory failure with hypoxia Comment: continue to be intubated. Pleural effusion, landa antibiotic resisteant pseudomonas infection. (8) Lung mass Comment: CT imaging shows 4 cm mass-like area in RUL. Bronchoscopy of will hopefully help determine if this is infection. Landa resistant pseudomonas infection. . . (9) Cirrhosis (10) Atrial fibrillation (11) GI bleed Comment: Patient had several duodenal ulcers on endoscopy back in April 2016. Required embolization to control GI bleeding. (12) Anemia Comment: Concern for ongoing blood loss. . (13) Hypoalbuminemia (14) Alcohol abuse Symptom Scale: (1) Pain 0-10 Scale: Unable to quantify Comment: Minimally responsive. Unable to qualify/quantify pain. Current sources of pain might include prolonged bedbound status; orotracheal/orogastric intubation; vascular access lines; Donaldson catheter; restraints. . (2) Encephalopathy 0-10 Scale: Unable to quantify Comment: May be some underlying dementia and there may be an element of alcoholic encephalopathy. Neurology has evaulated -- no seizure activity noted. EEG showing slowing c/w diffust encephalopathy. Is not improving. . . (3) Dyspnea 0-10 Scale: Unable to quantify Comment: Currently managed on vent -- tolerating cpap trials intermittently. . . Pertinent Non-Medical Issues Psychosocial: Patient's psychosocial support in this area comes primarily from his brother Randy and Randy's who live here. Patient is unmarried, has no children, but does have some close friends in his home state of [place]. Spiritual: Yazidism and spirituality have not played an important role in his life. Legal: Patient has never completed an advanced directive. Under [place] statutes, his brother, Randy, would be his legal proxy for healthcare decision- making. Randy has accepted this role. Ethical issues impacting care: Patient is currently incapacitated to make his own health care decisions. It is unclear if he will regain capacity. Important Contacts * Randy Gonzalez (brother and health care proxy) [phone] . Prognosis Based on family reports, the patient has been declining physically and cognitively for about a year. There had been weight loss and memory loss. He has advance cirrohsis, GI bleed risk. He is off vasopressors today. Landa resistent psuedonmonas, encephalopathic, diarrhea, cirrohsis, with renal failure (Baseline Cr is 1.7 and current Cr is 2.72. nephorlogy continues to follow). He is unresponsive. Dissussed with purchasing contracting clerk and prognosis is poor, Code Status: No Code Plan == Code Status: DNR == Decision making: Patient is incapacitated to make his own health care decisions at this time and it remains uncertain if he will regain capacity. He has no spouse, no children, no surviving parents. He has one surviving brother -- Randy Gonzalez -- who is local and is the appropriate health care proxy. Randy has been accepting that role. == Goals of medical treatment: Spoke with pt's brother/ health care proxy. He has advance cirrohsis, GI bleed risk. He is off vasopressors today. Landa resistent psuedonmonas, encephalopathic, diarrhea, cirrohsis, with renal failure (Baseline Cr is 1.7 and current Cr is 2.72. nephorlogy continues to follow). He is unresponsive. Dissussed with Proxy and prognosis is poor, and it does not appear that pt will improve well enough to review his own goals of care. Tours Captain concurs. Spoke with review with brother course of hospitalization and recent results, and poor prognosis. He is amenable to No cod/DNR/DNI. Will meet with pt's brother tomorrow at 9:45 AM and likely transition to comfort measures only. He says "its time to let him go." Acknowledge it does not make sense to go peg/trach given poor prognosis. ==Pain: Patient's primary pre-hospital pain syndrome was his knee. Other sources of pain currently could include prolonged bedbound status; edema; restraints; urinary catheter; and vascular access lines. Fentanyl and midazolam drips have been discontinued. Presedex. ==Encephalopathy:EEG shows theta slowing c/w mild diffuse encephalopathy but no seizure activity. It remains, he is on restraits, open eyes but could not follow commands. == Agitation: Nurses report he is trying to pull up tubes/lines when off sedation. Now receiving dexmetetomidine. No further recommendation at this time. == Dyspnea: Patient has long history of asthma requiring approximately 2 puffs on an albuterol inhaler daily at baseline. This is his third time requiring mechanical ventilation since April 2016. Palliative care in the past had discussed [facility] Dr. Ashley on 07/12/16 -- will need to consider tracheostomy if no improvement. Spoke with Brother (07/16/2016) at this point decline trach/ peg given poor prognosis. == Disposition: Spoke with purchasing contracting clerk. landa resistent pseudomonas, unresolve encephalopathy, landa resistant pseudomonas, cirrohsis, renal failure, heart compromise with pleural effusion. Prognosis poor. Spoke with pt's brother, will meet tomorrow, likely transition to comfort measures only. ==Palliative care will continue to follow to assist with symptom management and to further clarify goals of medical treatment as the clinical course evolves. == d/w with attending. . Time Spent Total Floor Time (mins): 45 Face to Face Time (mins): 30 Attestation To help prompt me to consider important information that might be impacting today's encounter and assessment, information from prior notes written by myself or my colleagues may have been "brought forward" into today's note. My signature on this note, however, is an attestation that I personally performed the exam, history, and/or decision-making noted today, and, unless otherwise indicated, the interactions with patient, family, and staff as well as the review of records all occurred today. I also attest that the listed assessment and stated plan reflect my best clinical judgment today based on the combination of historical information, prior notes, and today's exam/ interactions. When time spent is documented, it refers only to time spent today by the signer, or if indicated, combined time spent today by collaborating physician/nurse practitioner. Diogenes Terrell MD July 16, 2016 13:36
[2016-07-16 14:14] LABS: BICARBONATE 36.8 MEQ/L (21.0-32.0); MAGNESIUM 2.7 MG/DL (1.5-2.5); POTASSIUM 3.8 MEQ/L (3.5-5.1)
--- NOTE | 2016-07-16 17:14 | HHI.PR ---
Subjective Remarks 66 YOWM with CHF,RF, s/p extubation On Vent On Versed BS better controlled Off Pressors Has Panresistant Pseudomonas Objective Vital Signs Vital Signs Date Time Temp Pulse Resp B/P Pulse Ox O2 Delivery O2 Flow Rate FiO2 07/16/16 16:13 96 40 07/16/16 16:13 40 07/16/16 16:00 58 07/16/16 16:00 40 07/16/16 16:00 98.8 58 24 104/51 98 07/16/16 14:00 53 07/16/16 12:00 56 07/16/16 12:00 98.7 56 21 108/54 96 07/16/16 12:00 40 07/16/16 11:58 96 40 07/16/16 10:00 63 07/16/16 08:54 40 07/16/16 08:54 97 40 07/16/16 08:00 40 07/16/16 08:00 98.2 23 20 130/61 96 07/16/16 08:00 61 07/16/16 06:00 60 07/16/16 04:45 99 40 07/16/16 04:00 40 07/16/16 04:00 98.8 32 20 124/58 99 07/16/16 04:00 62 07/16/16 02:00 61 07/16/16 01:33 97 40 07/16/16 00:00 57 07/16/16 00:00 40 07/16/16 00:00 98.2 57 25 142/66 95 07/15/16 22:26 100 40 07/15/16 22:00 53 07/15/16 20:00 97.7 52 20 98/56 100 07/15/16 20:00 40 07/15/16 20:00 52 07/15/16 19:45 100 40 07/15/16 18:00 53 07/15/16 18:00 97.9 53 24 99/55 99 I/O 07/15/16 07/15/16 07/15/16 07/16/16 07/16/16 07/16/16 07:00 15:00 23:00 07:00 15:00 23:00 Intake Total 654 ml 853 ml 1072 ml 642 ml 1100 ml Output Total 1700 ml 1350 ml 1100 ml 1450 ml 1100 ml Balance -1046 ml -497 ml -28 ml -808 ml 0 ml IV Total 232 ml 440 ml 672 ml 285 ml 500 ml Tube Feeding 362 ml 413 ml 400 ml 357 ml 600 ml Tube Irrigant 60 ml Output Urine Total 1700 ml 1350 ml 1100 ml 1450 ml 1100 ml # Bowel Movements 3 0 2 1 1 Result Diagram: 07/16/16 0540 07/16/16 1300 Objective Remarks GENERAL: MBMN WM, mild sob SKIN: Warm and dry. HEAD: Normocephalic. EYES: No scleral icterus. No injection or drainage. NECK: Supple, trachea midline. No JVD or lymphadenopathy. CARDIOVASCULAR: Regular rate and rhythm without murmurs, gallops, or rubs. RESPIRATORY: Breath sounds equal bilaterally. No accessory muscle use. Scattered rales GASTROINTESTINAL: Abdomen soft, non-tender, nondistended. MUSCULOSKELETAL: No cyanosis, or edema. BACK: Nontender without obvious deformity. No CVA tenderness. A/P Assessment and Plan VDRF Pl effusion, s/p right TC DM CHF Anemia Renal insuff PLAN: Vent support Cont Abx Sedation with Precedex Aerosol nebs Daily CPAP trial Abx Zerbaxa and Levaquin per ID Ashish Thorpe MD July 16, 2016 17:14
[2016-07-16] MEDS: LORazepam 2 MG/ML VIAL IV PUSH PRN (20:00)
[2016-07-16 20:45] LABS: C. DIFF EPI 027 PRESUMPTIVE NEGATIVE (NEGATIVE); C. DIFF TOXIN PCR NEGATIVE (NEGATIVE)
[2016-07-16 21:53] LABS: BICARBONATE 35.4 MEQ/L (21.0-32.0); MAGNESIUM 2.6 MG/DL (1.5-2.5); POTASSIUM 3.8 MEQ/L (3.5-5.1)
[2016-07-17] VITALS (8 sets, daily range): BP systolic 89–128; BP diastolic 44–59; PULSE 56–62; RESP 18–23; TEMP 96–98; O2SAT 95–98
[2016-07-17] MEDS: DEXMEDETOMIDINE 200 MCG in NS 50 ML IV SCH ×2 (00:23→04:29)
[2016-07-17] MEDS: LORazepam 2 MG/ML VIAL IV PUSH PRN (00:23)
[2016-07-17] MEDS: INSULIN NovoLIN REGULAR SUPPLEMENTAL SCALE SQ SCH (04:00)
[2016-07-17] MEDS: CEFTOLOZANE-TAZOBACTAM INJ 375 MG in SODIUM CHLORIDE 0.9% INJ 100 ML IV SCH (04:29)
[2016-07-17] MEDS: CHLORHEXIDINE GLUCONATE 2 % 1 PACK (2 CLOTHS) TOP SCH (04:30)
[2016-07-17] MEDS: NOREPINEPHRINE INJ 4 MG in SODIUM CHLOR 0.9% 250 ML INJ 246 ML IV SCH (05:38)
[2016-07-17 05:47] LABS: MEAN CORPUSCULAR HEMOGLOBIN 30.4 PG (27.0-34.0); MEAN CORPUSCULAR HGB CONC 33.1 % (32.0-36.0); PLATELET COUNT 65 TH/MM3 (150-450); RED BLOOD COUNT 2.25 MIL/MM3 (4.50-5.90); RED CELL DISTRIBUTION WIDTH 19.1 % (11.6-17.2); WHITE BLOOD COUNT 4.2 TH/MM3 (4.0-11.0)
[2016-07-17 05:56] LABS: ALT (GPT) 23 U/L (12-78); ANION GAP 7 MEQ/L (5-15); AST (GOT) 28 U/L (15-37); BICARBONATE 34.6 MEQ/L (21.0-32.0); BLOOD UREA NITROGEN 60 MG/DL (7-18); CHLORIDE 101 MEQ/L (98-107); GLOMERULAR FILTRATION RATE 22 ML/MIN (>89); MAGNESIUM 2.7 MG/DL (1.5-2.5); POTASSIUM 3.6 MEQ/L (3.5-5.1); SODIUM (NA) 143 MEQ/L (136-145)
[2016-07-17 05:58] LABS: ALKALINE PHOSPHATASE 116 U/L (45-117); TOTAL BILIRUBIN ADULT 0.5 MG/DL (0.2-1.0)
[2016-07-17 06:02] LABS: REVIEW FLAG FINAL
[2016-07-17 06:03] LABS: HEMATOCRIT 20.7 % (39.0-51.0)
--- NOTE | 2016-07-17 06:36 | HHI.CCPN ---
Subjective Remarks/Hospital Course The patient is a 66-year-old male with a past medical history of diabetes mellitus, bronchial asthma, ETOH use, cirrhosis of the liver, who presented to [facility] ED from a nursing facility for shortness of breath. The patient was recently hospitalized in the end of April, for GI bleed secondary to large duodenal ulcer. In addition he underwent arteriogram and embolization of the right gastric and GDA on May 18. He required multiple blood transfusions, intubation and mechanical ventilation. In addition, the patient had two endoscopies. On arrival to the ED the patient was hypotensive with blood pressure 94/50 and his laboratory data showed mild acute kidney injury with a BUN of 21, creatinine 1.86, lactic acidosis with lactic acid level 3.6 and elevated BNP at 427. In addition, he was found to have elevated D -dimer at 12.28. CT scan of the brain was obtained which showed no atrophy, otherwise no acute intracranial abnormalities. A VQ scan was obtained as well in the ER which showed low probability for pulmonary embolism. His initial chest x-ray from early this morning showed bilateral pleural effusions and patchy bilateral pulmonary infiltrates. Central line was placed by ED physician and a repeat chest x-ray showed right IJ central line in good position , bilateral effusions with bilateral parenchymal densities, right greater than the left. In the ER he was given 2 liters of crystalloids in addition to vancomycin, Zosyn, Solu-Medrol, bronchodilator and Bumex. He was hypotensive in the ER and the patient was placed on Levophed which is currently at three mics. Due to his respiratory distress, the patient was intubated and placed on full mechanical ventilation. When seen he is on Diprivan infusion for sedation. However, the patient is awake, alert and follows commands. ABG post intubation showed a pH of 7.35, CO2 48, pAO2 325, bicarb 26, saturation of 98%. 06/26: Patient is sedated with Diprivan. Afebrile. Off Levophed. 06/27: Extubated 06/26. Of all vasopressors. Currently on nasal cannula. Tolerating diet. Subjective 06/28: Currently complaining of chest discomfort/pleuritic with breathing and shortness of breath. On 4 L nasal cannula. Complaining of difficulty with swallowing. No bowel movement. Up in chair 4 hours yesterday. 07/08 shortly after midnight rapid response team was called for the patient's seizure-like activity. He received Ativan however shortly after seizure and became unresponsive retaining CO2 at 70s. He required endotracheal intubation for airway protection. After intubation patient became hypotensive requiring low dose of Levophed to keep his map above 65 and central line was placed. 07/09: Sedated, orally intubated on mechanical ventilation. Was transfused 1 unit PRBCs yesterday. Remains on Levophed for pressor support. 07/10: Remains encephalopathic off sedation, orally intubated on mechanical ventilation. On Levophed for pressor support. 07/11: still encephalopathic. versed turned off around 5am. 07/12: less awake today. slightly more hypoxic. not much secretions. ID consulted yesterday, started Levaquin. bronch yesterday to eval RUL mass and cytology sent. gram stain negative for bacteria. 07/13: still encephalopathic. Cr continues to rise. also net +2L despite aggressive attempts at diuresis. 07/14: no significant changes. BNP 1000 yesterday, given diuril, diamox, but still persistently net+. 07/15: net -1.8 L/24h for the first time. Cr stable. in order to remain negative , still on diamox, diuril and bumex drips. CVP still 21. otherwise no change, tolerating cpap better today, but encephalopathy persists. 07/16: net -1.3L/24h. Cr stable. however, CVP still elevated. still very encephalopathic. now with copious diarrhea. vasopressors off this morning. BALs growing landa-resistant pseudomonas, ID on board. 07/17: Hgb 6.9, otherwise no significant changes.Family deciding care plan. Objective Vital Signs Date Time Temp Pulse Resp B/P Pulse Ox O2 Delivery O2 Flow Rate FiO2 07/17/16 06:00 56 07/17/16 04:10 96 40 07/17/16 04:00 98.0 18 89/44 Intake and Output 07/16/16 07/16/16 07/17/16 08:00 16:00 00:00 Intake Total 642 ml 1100 ml 1396 ml Output Total 1450 ml 1100 ml 1100 ml Balance -808 ml 0 ml 296 ml Result Diagram: 07/17/1652907/17/16 0530 Objective Remarks HEENT/ Neuro: Encephalopathic, orally intubated, Pallor present, no icterus, tongue / mucosa moist. Chest/Pulm: on mech vent, air entry decreased bilaterally at bases, bilateral rhonchi no wheezing or crackles CVS: normal rate, regular rhythm. sinus by tele. No JVD. GI/abdomen: soft, nontender, no guarding.BS active. Extremities: warm bilaterally, no edema A/P Assessment and Plan Assessment: 66yM with etoh cirrhosis, metabolic encephalopathy, acute kidney injury, significant acute on chronic organ dysfunction. He is not improving, and remains critically ill with a very poor prognosis. we will work towards minimizing sedation and improving his mentation. His BNP is suggestive of severe volume overload. we will continue forced diuresis, although we are maximally blocking fluid resorption at the nephron and still struggling to maintain net negative balance. I do not think he is a good candidate for renal replacement therapy, and I think this would further worsen his overall multi- organ dysfunction. for now, goals remain aggressive per family. Neuro/Psych: ETOH History of hepatic encephalopathy we will attempt to control any agitation with haldol 5mg iv q4h prn first, now on precedex to control agitation. Seizure precautions Head CT negative for bleed/mass EEG negative for seizure. frequent neuro checks modafinil 200mg daily for hypoactive component of delirium. CV: Congestive heart failure - chronic systolic Pericardial effusion Atrial fibrillation -- continue levophed for goal map > 65 -- will start milrinone 0.25 mcg/kg/min to help increase perfusion to the kidney and assist with diuresis. Resp: Chronic 02 - 1.5 liters Acute hypoxemic respiratory failure. Congestive heart failure/infectious etiology Bronchial asthma Bilateral pleural effusions Continue mechanical ventilation, vent bundle, daily C Pap trials. still failing for mental status Bronchodilator therapy every 4 hours and as needed VQ scan admission low probability for pulmonary embolism GI: History of celiac artery embolization left PT secondary to duodenal ulcer 06/04 Gastroesophageal reflux disease Liver cirrhosis with varices Transfused 1 unit PRBCs on 07/08. Follow CBC. Continue Protonix 40 mg iv BID TF at goal. glucerna for better glycemic control. : BPH Donaldson catheter while on diuretics for accurate I's and O's in a critically ill patient Endo: Diabetes mellitus Elevated intact parathyroid hormone Low vitamin D 25 Patient was intubated for severe hypoglycemia with FS glucose 30s on 07/07. Continue NG tube feeds Increase to 15 units NPH q12h on 07/16. swap to glucerna 07/14. increase to high dose SSI. Renal: intravascular volume overload Acute on chronic kidney injury- worsening. likely multifactorialm, volume overload, possible combination cardio-renal syndrome, hepato-renal syndrome? Followed by nephrology. Baseline creatinine 1.7. bnp > 1000. continue bumex drip at 1mg/min diuril 500mg iv q12h diamox 500mg iv q8h spironolactone 25mg po daily Avoid nephrotoxic drugs Strict intake output, monitor and replete electrolytes, Renal ultrasound revealed no hydronephrosis. Heme: Leukocytosis Normocytic anemia Left cephalic vein thrombosis Thrombocytopenia Severe anemia Monitor CBC daily Monitor trends ID: Recently treated left knee osteomyelitis completed therapy vancomycin/Diflucan Community-acquired pneumonia Pertinent cultures Blood cultures 2 - 06/25 - no growth sputum culture 07/08 growing resistant enterobacter. ID: Dr. Bryson started Levaquin 07/11. bronch 07/11 with cytology and cultures sent for RUL mass. cultures growing pansensitive PSAE. ID on board. [email or web address]. MSK: PT evaluate and treat FEN: Replace electrolytes as clinically indicated Access - Right subclavian placed 07/08. will trend cvp. still high. Prophylaxis - GI - Protonix - DVT - SCD/pharmacological prophylaxis held due to GI bleed Prognosis remains poor with advanced cirrhosis, encephalopathy, CHF, respiratory failure, brittle diabetes. Consulted palliative care to assist with deciding goals of therapy. Thanh Guzman MD July 17, 2016 06:36
[2016-07-17] MEDS: NYSTATIN 100,000 U/GM PWD 15 GM BTL TOPICAL SCH (09:00)
[2016-07-17] MEDS: CALCIUM CARBONATE 500 MG CHEWABLE TAB CHEW SCH (09:00)
[2016-07-17] MEDS: LACTULOSE SYRUP 20 GM/30 ML CUP PO SCH (09:00)
[2016-07-17] MEDS: BUDESONIDE-FORMOTEROL 80/4.5 MCG INHALER INH SCH (09:00)
[2016-07-17] MEDS: PANTOPRAZOLE SODIUM 40 MG VIAL IV PUSH SCH (09:44)
[2016-07-17] MEDS: levETIRAcetam INJ 500 MG in SODIUM CHLORIDE 0.9% INJ 100 ML IV SCH (09:44)
[2016-07-17] MEDS: INSULIN HUMAN NPH 1,000 UNITS/10 ML VIAL SQ SCH (09:45)
[2016-07-17] MEDS: AMIODARONE 200 MG TAB PO SCH (09:47)
[2016-07-17] MEDS: MAGNESIUM OXIDE 400 MG TAB PO SCH (09:47)
[2016-07-17] MEDS: LACTOBACILLUS ACIDOPHILUS TAB PO SCH (09:47)
[2016-07-17] MEDS: THIAMINE HCL 100 MG TAB PO SCH (09:47)
[2016-07-17] MEDS: ASPIRIN 81 MG CHEW TAB CHEW SCH (09:47)
[2016-07-17] MEDS: FOLIC ACID 1 MG TAB PO SCH (09:47)
[2016-07-17] MEDS: MULTIVITAMIN TAB PO SCH (09:47)
[2016-07-17] MEDS: SPIRONOLACTONE 25 MG TAB PO SCH (09:47)
--- NOTE | 2016-07-17 09:54 | HHI.HCPN ---
Reason for visit a. To assist with evaluation and management of symptoms including: dyspnea , pain; agitation b. To assist medical decision maker(s) with: better understanding of current medical conditions; weighing benefits/burdens of medical treatment options; making medical treatment decisions. . Subjective/Interval History Pt is a 66 year old with COPD, DM, cirrohsis, duodenal ulcer with GI bleed that has had 3 recent hospitalization. Seen 05/14/16 to 06/06/2016 for knee pain but found to have GI bleed, and sepsis requiring intubation and mechanical ventilation. He required embolization. Stablized and went to [facility] facility. Pt returned to the hospital for anemia with hgb of 6.9 and was transfused. Pt returned to nursing facility. For this hospitalization pt came in on 06/25 for dyspnea. Course of hospital complicated by respiratory failure and ICU admission. Pt was able to be extubated 06/26 and off vasopressors but eventually became dyspneic again, that by 07/08 pt had seizure like activity and needed to be intubated again. Pt became hypotensive and required levophed. He is encephalopathic despite being off sedation. CT imaging shows 4 cm mass in RUL. 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 Pt remains intubated. ID following. He also has copious diarrhea. Pt EF is 35 to 40%. He remains on kepra and neurology following for seizures, and remains encephalopathic. 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 Baseline Cr is 1.7 and current Cr is 2.72. nephorlogy continues to follow. He has advance cirrohsis, GI bleed risk. Today. pt remains intubated. Has lower hgb today at 6.9, has diarrhea. Cr is worse 2.92 compare to a baseline of Cr of 1.7. On levoquin, ceftolozane. Charge Operator continue to note continue poor prognosis in light of advance cirrohosis, encephalopathy, CHF, respiratory failure, panresistent penumonia. On my visit, pt open eyes, but does not track and closes eyes quickly, family at the room. Family/friend interactions Spoke with pt's brother and sister in law. Reviewed course of hospitalization, prognosis and and goals of care. Family feels pt would not want continue aggressive care, and decide to transition to comfort measures only and extubate. Case d/w attending physician. Exhibits completed by family and medical team. Advance Directives Living Will: Completed, but not made available Health Care Surrogate: Never completed Durable Power of Edge Inker: Never completed Advance Directive Specifics Date completed: There is a scanned [facility] DO NOT RESUSCITATE order on the chart dated . It appears to have been signed by the patient. Health Care Surrogate(s): No known written designation of healthcare surrogate. . Documented care wishes: No known written documentation of health care preferences/goals. . Objective Vital Signs Date Time Temp Pulse Resp B/P Pulse Ox O2 Delivery O2 Flow Rate FiO2 07/17/16 06:00 56 07/17/16 04:10 96 40 07/17/16 04:00 56 07/17/16 04:00 40 07/17/16 04:00 98.0 56 18 89/44 95 07/17/16 02:00 58 07/17/16 00:40 98 40 07/17/16 00:00 40 07/17/16 00:00 98.0 62 23 128/59 97 07/17/16 00:00 62 07/16/16 22:00 57 07/16/16 21:22 96 40 07/16/16 20:00 97.8 60 25 114/56 96 07/16/16 20:00 40 07/16/16 20:00 60 07/16/16 18:00 59 07/16/16 16:13 96 40 07/16/16 16:13 40 07/16/16 16:00 58 07/16/16 16:00 40 07/16/16 16:00 98.8 58 24 104/51 98 07/16/16 14:00 53 07/16/16 12:00 56 07/16/16 12:00 98.7 56 21 108/54 96 07/16/16 12:00 40 07/16/16 11:58 96 40 07/16/16 10:00 63 Intake & Output 07/17/16 07/17/16 07:00 19:00 Intake Total 2317 ml Output Total 2050 ml Balance 267 ml IV Total 1365 ml Tube Feeding 892 ml Tube Irrigant 60 ml Output Urine Total 1550 ml Stool Total 500 ml Physical Exam CONSTITUTIONAL/GENERAL: This is an adequately nourished patient, intubated, in the SICU. Sedated with dexemetetomidine No evidence of distress. Stirs slightly to loud voice/exam. TUBES/LINES/DRAINS: Orotracheal tube; orogastric tube; soft wrist restraints; Donaldson catheter; SCDs; right subclavicular central line; peripheral IV; rectal tube SKIN: No jaundice, rashes, or lesions. Ecchymoses on upper extremities. No wounds seen anteriorly. Skin temperature appropriate. Not diaphoretic. EYES: Pupils equal and round . Constricted. Cannot evaluate extraocular movements-- doesn't track. No scleral icterus. No injection or drainage. Fundi not examined. ENT: Unable to evaluate hearing due to level of responsiveness. Nose without bleeding or purulent drainage. Throat without visible erythema, exudates, masses , or lesions though oropharynx is difficult to visualize due to intubations NECK: Trachea midline. CARDIOVASCULAR: Regular rate (borderline bradycardia) and rhythm without murmurs, gallops, or rubs. No JVD. RESPIRATORY/CHEST: Symmetric, unlabored respirations. Breath sounds equal bilaterally. Bilateral ronchi. No wheezes. GASTROINTESTINAL: Abdomen moderately tense, non-tender, distended. No hepato- splenomegaly, or palpable masses but difficult to palpate due to level of distension. No guarding. Bowel sounds hypoactive. GENITOURINARY: Without palpable bladder distension. Donaldson catheter in place. Significnat scrotal edema present. MUSCULOSKELETAL: Extremities without clubbing, cyanosis. Bilateral upper extremity pitting edema is present. The right great and second toes have been surgically removed. No mottling or clubbing. LYMPHATICS: Not examined. NEUROLOGICAL: Open eyes, but does not track Does not withdraw to noxious stimuli. No seizure activity noted. PSYCHIATRIC: Unable to assess due to level of sedation and responsiveness . Diagnostic Tests Laboratory Laboratory Tests Test 07/14/16 07/14/16 07/15/16 07/15/16 16:18 21:28 01:00 06:00 Sodium Level 141 MEQ/L 142 MEQ/L 143 MEQ/L 142 MEQ/L (136-145) (136-145) (136-145) (136-145) Potassium Level 3.9 MEQ/L 4.0 MEQ/L 3.9 MEQ/L 3.7 MEQ/L (3.5-5.1) (3.5-5.1) (3.5-5.1) (3.5-5.1) Chloride Level 101 MEQ/L 101 MEQ/L 101 MEQ/L 101 MEQ/L (98-107) (98-107) (98-107) (98-107) Carbon Dioxide Level 33.4 MEQ/L 32.3 MEQ/L 32.1 MEQ/L 29.9 MEQ/L (21.0-32.0) (21.0-32.0) (21.0-32.0) (21.0-32.0) Anion Gap 7 MEQ/L (5-15) 9 MEQ/L (5-15) 10 MEQ/L (5-15) 11 MEQ/L (5-15) Blood Urea Nitrogen 44 MG/DL (7-18) 41 MG/DL (7-18) 43 MG/DL (7-18) 42 MG/DL (7- 18) Creatinine 2.78 MG/DL 2.68 MG/DL 2.75 MG/DL 2.79 MG/DL (0.60-1.30) (0.60-1.30) (0.60-1.30) (0.60-1.30) Estimat Glomerular Filtration 23 ML/MIN (>89) 24 ML/MIN (>89) 23 ML/MIN (>89) 23 ML/MIN (>89) Rate Random Glucose 235 MG/DL 247 MG/DL 230 MG/DL 242 MG/DL (74-106) (74-106) (74-106) (74-106) Calcium Level 8.9 MG/DL 9.0 MG/DL 9.1 MG/DL 9.1 MG/DL (8.5-10.1) (8.5-10.1) (8.5-10.1) (8.5-10.1) Magnesium Level 2.5 MG/DL 2.5 MG/DL 2.6 MG/DL 2.5 MG/DL (1.5-2.5) (1.5-2.5) (1.5-2.5) (1.5-2.5) White Blood Count 3.8 TH/MM3 (4.0-11.0) Red Blood Count 2.54 MIL/MM3 (4.50-5.90) Hemoglobin 7.6 GM/DL (13.0-17.0) Hematocrit 23.4 % (39.0-51.0) Mean Corpuscular Volume 92.2 FL (80.0-100.0) Mean Corpuscular Hemoglobin 30.0 PG (27.0-34.0) Mean Corpuscular Hemoglobin 32.5 % Concent (32.0-36.0) Red Cell Distribution Width 18.9 % (11.6-17.2) Platelet Count 67 TH/MM3 (150-450) Mean Platelet Volume 9.7 FL (7.0-11.0) Total Bilirubin 0.7 MG/DL (0.2-1.0) Aspartate Amino Transf 30 U/L (15-37) (AST/SGOT) Alanine Aminotransferase 22 U/L (12-78) (ALT/SGPT) Alkaline Phosphatase 114 U/L (45-117) Ammonia 29 MCMOL/L (11-32) Total Protein 6.8 GM/DL (6.4-8.2) Albumin 3.4 GM/DL (3.4-5.0) Test 07/15/16 07/15/16 07/16/16 07/16/16 13:20 18:10 00:35 05:40 Sodium Level 142 MEQ/L 140 MEQ/L 142 MEQ/L 142 MEQ/L (136-145) (136-145) (136-145) (136-145) Potassium Level 4.1 MEQ/L 4.0 MEQ/L 4.0 MEQ/L 4.0 MEQ/L (3.5-5.1) (3.5-5.1) (3.5-5.1) (3.5-5.1) Chloride Level 100 MEQ/L 100 MEQ/L 100 MEQ/L 102 MEQ/L (98-107) (98-107) (98-107) (98-107) Carbon Dioxide Level 33.4 MEQ/L 30.9 MEQ/L 34.1 MEQ/L 33.7 MEQ/L (21.0-32.0) (21.0-32.0) (21.0-32.0) (21.0-32.0) Anion Gap 9 MEQ/L (5-15) 9 MEQ/L (5-15) 8 MEQ/L (5-15) 6 MEQ/L (5-15) Blood Urea Nitrogen 47 MG/DL (7-18) 50 MG/DL (7-18) 51 MG/DL (7-18) 53 MG/DL (7- 18) Creatinine 2.74 MG/DL 2.74 MG/DL 2.69 MG/DL 2.72 MG/DL (0.60-1.30) (0.60-1.30) (0.60-1.30) (0.60-1.30) Estimat Glomerular Filtration 23 ML/MIN (>89) 23 ML/MIN (>89) 24 ML/MIN (>89) 23 ML/MIN (>89) Rate Random Glucose 279 MG/DL 297 MG/DL 225 MG/DL 228 MG/DL (74-106) (74-106) (74-106) (74-106) Calcium Level 9.5 MG/DL 9.0 MG/DL 9.4 MG/DL 9.4 MG/DL (8.5-10.1) (8.5-10.1) (8.5-10.1) (8.5-10.1) Magnesium Level 2.7 MG/DL 2.5 MG/DL 2.5 MG/DL 2.6 MG/DL (1.5-2.5) (1.5-2.5) (1.5-2.5) (1.5-2.5) White Blood Count 3.8 TH/MM3 (4.0-11.0) Red Blood Count 2.55 MIL/MM3 (4.50-5.90) Hemoglobin 7.7 GM/DL (13.0-17.0) Hematocrit 23.5 % (39.0-51.0) Mean Corpuscular Volume 92.4 FL (80.0-100.0) Mean Corpuscular Hemoglobin 30.1 PG (27.0-34.0) Mean Corpuscular Hemoglobin 32.5 % Concent (32.0-36.0) Red Cell Distribution Width 18.7 % (11.6-17.2) Platelet Count 67 TH/MM3 (150-450) Mean Platelet Volume 9.3 FL (7.0-11.0) Total Bilirubin 0.5 MG/DL (0.2-1.0) Aspartate Amino Transf 35 U/L (15-37) (AST/SGOT) Alanine Aminotransferase 29 U/L (12-78) (ALT/SGPT) Alkaline Phosphatase 135 U/L (45-117) Ammonia 30 MCMOL/L (11-32) Total Protein 6.8 GM/DL (6.4-8.2) Albumin 3.2 GM/DL (3.4-5.0) Test 07/16/16 07/16/16 07/16/16 07/17/16 12:00 13:00 21:05 05:30 Stool C. difficile Toxin (PCR) NEGATIVE (NEGATIVE) Stl C. difficile Toxin PRESUMPTIVE Epiderm 027 NEGATIVE (NEGATIVE) Sodium Level 143 MEQ/L 143 MEQ/L 143 MEQ/L (136-145) (136-145) (136-145) Potassium Level 3.8 MEQ/L 3.8 MEQ/L 3.6 MEQ/L (3.5-5.1) (3.5-5.1) (3.5-5.1) Chloride Level 102 MEQ/L 101 MEQ/L 101 MEQ/L (98-107) (98-107) (98-107) Carbon Dioxide Level 36.8 MEQ/L 35.4 MEQ/L 34.6 MEQ/L (21.0-32.0) (21.0-32.0) (21.0-32.0) Anion Gap 4 MEQ/L (5-15) 7 MEQ/L (5-15) 7 MEQ/L (5-15) Blood Urea Nitrogen 61 MG/DL (7-18) 63 MG/DL (7-18) 60 MG/DL (7-18) Creatinine 2.72 MG/DL 2.91 MG/DL 2.92 MG/DL (0.60-1.30) (0.60-1.30) (0.60-1.30) Estimat Glomerular Filtration 23 ML/MIN (>89) 22 ML/MIN (>89) 22 ML/MIN (>89) Rate Random Glucose 164 MG/DL 203 MG/DL 177 MG/DL (74-106) (74-106) (74-106) Calcium Level 9.1 MG/DL 9.1 MG/DL 9.0 MG/DL (8.5-10.1) (8.5-10.1) (8.5-10.1) Magnesium Level 2.7 MG/DL 2.6 MG/DL 2.7 MG/DL (1.5-2.5) (1.5-2.5) (1.5-2.5) White Blood Count 4.2 TH/MM3 (4.0-11.0) Red Blood Count 2.25 MIL/MM3 (4.50-5.90) Hemoglobin 6.9 GM/DL (13.0-17.0) Hematocrit 20.7 % (39.0-51.0) Mean Corpuscular Volume 92.0 FL (80.0-100.0) Mean Corpuscular Hemoglobin 30.4 PG (27.0-34.0) Mean Corpuscular Hemoglobin 33.1 % Concent (32.0-36.0) Red Cell Distribution Width 19.1 % (11.6-17.2) Platelet Count 65 TH/MM3 (150-450) Mean Platelet Volume 9.0 FL (7.0-11.0) Total Bilirubin 0.5 MG/DL (0.2-1.0) Aspartate Amino Transf 28 U/L (15-37) (AST/SGOT) Alanine Aminotransferase 23 U/L (12-78) (ALT/SGPT) Alkaline Phosphatase 116 U/L (45-117) Ammonia 22 MCMOL/L (11-32) Total Protein 6.1 GM/DL (6.4-8.2) Albumin 2.8 GM/DL (3.4-5.0) Result Diagram: 07/17/16 0530 07/17/16 0530 Procedures * Intubation/mechanical ventilation * Right subclavicular central line placement * Bronchoscopy 07/11/16 . Assessment and Plan Disease Oriented Problem List: (1) Bilateral pleural effusion (2) Cardiomyopathy Comment: Echocardiogram of 06/25/16 revealed an ejection fraction of 35-40% with no regional wall motion abnormalities. . (3) Pericardial effusion Comment: Echocardiogram of 06/25/16 showed a pericardial effusion. (4) Seizure Comment: Possible seizure activity noted on 07/08/16. Neurology consulted. On levitiracetam. . (5) Acute on chronic renal insufficiency Comment: GFR improved after admission and now is declining again. . (6) Diabetes mellitus Comment: Poorly controlled as an outpatient. Not very compliant with lifestyle recommendations. . (7) Acute respiratory failure with hypoxia Comment: continue to be intubated. Pleural effusion, landa antibiotic resisteant pseudomonas infection. (8) Lung mass Comment: CT imaging shows 4 cm mass-like area in RUL. Bronchoscopy of will hopefully help determine if this is infection. Landa resistant pseudomonas infection. . . (9) Cirrhosis (10) Atrial fibrillation (11) GI bleed Comment: Patient had several duodenal ulcers on endoscopy back in April 2016. Required embolization to control GI bleeding. (12) Anemia Comment: Concern for ongoing blood loss. . (13) Hypoalbuminemia (14) Alcohol abuse Symptom Scale: (1) Pain 0-10 Scale: Unable to quantify Comment: Minimally responsive. Unable to qualify/quantify pain. Current sources of pain might include prolonged bedbound status; orotracheal/orogastric intubation; vascular access lines; Donaldson catheter; restraints. . (2) Encephalopathy 0-10 Scale: Unable to quantify Comment: May be some underlying dementia and there may be an element of alcoholic encephalopathy. Neurology has evaulated -- no seizure activity noted. EEG showing slowing c/w diffust encephalopathy. Is not improving. . . (3) Dyspnea 0-10 Scale: Unable to quantify Comment: Currently managed on vent -- tolerating cpap trials intermittently. . . Pertinent Non-Medical Issues Psychosocial: Patient's psychosocial support in this area comes primarily from his brother Randy and Randy's who live here. Patient is unmarried, has no children, but does have some close friends in his home state of [place]. Spiritual: Jewish and spirituality have not played an important role in his life. Legal: Patient has never completed an advanced directive. Under [place] statutes, his brother, Randy, would be his legal proxy for healthcare decision- making. Randy has accepted this role. Ethical issues impacting care: Patient is currently incapacitated to make his own health care decisions. It is unclear if he will regain capacity. Important Contacts * Randy Gonzalez (brother and health care proxy) [phone] . Prognosis Based on family reports, the patient has been declining physically and cognitively for about a year. There had been weight loss and memory loss. He has advance cirrohsis, GI bleed risk. He is off vasopressors today. Landa resistent psuedonmonas, encephalopathic, diarrhea, cirrohsis, with renal failure (Baseline Cr is 1.7 and current Cr is 2.72. nephorlogy continues to follow). He is unresponsive. Dissussed with measurement advisor and prognosis is poor, Code Status: No Code Plan == Code Status: DNR == Decision making: Patient is incapacitated to make his own health care decisions at this time and it remains uncertain if he will regain capacity. He has no spouse, no children, no surviving parents. He has one surviving brother -- Randy Gonzalez -- who is local and is the appropriate health care proxy. Randy has been accepting that role. == Goals of medical treatment: Transition to comfort measures only given poor prognosis. "He would not want to be intubated or any of this." Per brother. Terminal extubation and transition to comfort today. ==Pain: Patient's primary pre-hospital pain syndrome was his knee. Comfort meds ordered. dilaudid. == Agitation: Ativan prn, and schedule. Family amenable to schedule meds for comfort. == Dyspnea: comfort meds available. ==Palliative care will continue to follow to assist with symptom management and to further clarify goals of medical treatment as the clinical course evolves. == d/w with attending. . Attestation To help prompt me to consider important information that might be impacting today's encounter and assessment, information from prior notes written by myself or my colleagues may have been "brought forward" into today's note. My signature on this note, however, is an attestation that I personally performed the exam, history, and/or decision-making noted today, and, unless otherwise indicated, the interactions with patient, family, and staff as well as the review of records all occurred today. I also attest that the listed assessment and stated plan reflect my best clinical judgment today based on the combination of historical information, prior notes, and today's exam/ interactions. When time spent is documented, it refers only to time spent today by the signer, or if indicated, combined time spent today by collaborating physician/nurse practitioner. Diogenes Terrell MD July 17, 2016 09:54 to comfort measures only. ==Palliative care will continue to follow to assist with symptom management and to further clarify goals of medical treatment as the clinical course evolves. == d/w with attending. . Diogenes Terrell MD July 17, 2016 09:54
[2016-07-17] MEDS ORDERED: LORazepam 2 MG/ML VIAL IV ONE ×2 (10:45→11:00)
[2016-07-17] MEDS ORDERED: HYOSCYAMINE 0.125 MG TAB PO/SL ONE (10:45)
[2016-07-17] MEDS ORDERED: HYDROmorphone HCL PF 1 MG/ML VIAL IV ONE ×2 (10:45→11:00)
[2016-07-17] MEDS ORDERED: FUROSEMIDE 20 MG/2 ML VIAL IV PRN (11:15)
[2016-07-17] MEDS ORDERED: LORazepam 2 MG/ML VIAL IV PRN ×2 (11:15)
[2016-07-17] MEDS ORDERED: BISACODYL 10 MG SUPP RECTAL PRN (11:15)
[2016-07-17] MEDS ORDERED: LORazepam 2 MG/ML VIAL IVS PRN (11:15)
[2016-07-17] MEDS ORDERED: ACETAMINOPHEN 650 MG SUPP RECTAL PRN (11:15)
[2016-07-17] MEDS ORDERED: HYDROmorphone HCL PF 1 MG/ML VIAL IV PRN ×2 (11:15)
[2016-07-17] MEDS ORDERED: HYDROmorphone HCL PF 1 MG/ML VIAL IV SCH (12:00)
[2016-07-17] MEDS ORDERED: LORazepam 2 MG/ML VIAL IV SCH (12:00)
--- NOTE | 2016-07-17 12:44 | HHI.PR ---
Addendum to Inpatient Note Additional Information pt extubated goint to comformt care all abx stopped will sign off Nell Bryson MD July 17, 2016 12:44
--- NOTE | 2016-07-19 14:50 | DEATH SUM ---
Summary Demographics Date Pronounced : July 17, 2016 Time Of : 1332 Pronounced By: Geeta QuilesRN Preliminary Cause of : Multi Organ Failure Thanh Guzman MD Jul 19, 2016 14:50
--- NOTE | 2016-07-19 14:56 | HHI.DS ---
Discharge Summary Admission Date June 25, 2016 at 05:16 Discharge Date: July 17, 2016 Admitting Diagnosis hypoxic respiratory failure Brief History Admitted in respiratory failure after recent hospitalization. Complicated by chronic systolic heart failure and hepatic cirrhosis. He developed multi-system organ failure and his family elcted withdrawal of artificial support and comfort measures only. He peacefully on July 17, 2016 at 1434. CBC/BMP: 07/17/16 0530 07/17/16 0530 Significant Findings Laboratory Tests Test 07/16/16 07/17/16 21:05 05:30 Carbon Dioxide Level 35.4 MEQ/L 34.6 MEQ/L (21.0-32.0) (21.0-32.0) Blood Urea Nitrogen 63 MG/DL (7-18) 60 MG/DL (7-18) Creatinine 2.91 MG/DL 2.92 MG/DL (0.60-1.30) (0.60-1.30) Estimat Glomerular Filtration 22 ML/MIN (>89) 22 ML/MIN (>89) Rate Random Glucose 203 MG/DL 177 MG/DL (74-106) (74-106) Magnesium Level 2.6 MG/DL 2.7 MG/DL (1.5-2.5) (1.5-2.5) Red Blood Count 2.25 MIL/MM3 (4.50-5.90) Hemoglobin 6.9 GM/DL (13.0-17.0) Hematocrit 20.7 % (39.0-51.0) Red Cell Distribution Width 19.1 % (11.6-17.2) Platelet Count 65 TH/MM3 (150-450) Total Protein 6.1 GM/DL (6.4-8.2) Albumin 2.8 GM/DL (3.4-5.0) PE at Discharge . Hospital Course The patient is a 66-year-old male with a past medical history of diabetes mellitus, bronchial asthma, ETOH use, cirrhosis of the liver, who presented to [facility] ED from a nursing facility for shortness of breath. The patient was recently hospitalized in the end of April, for GI bleed secondary to large duodenal ulcer. In addition he underwent arteriogram and embolization of the right gastric and GDA on May 18. He required multiple blood transfusions, intubation and mechanical ventilation. In addition, the patient had two endoscopies. On arrival to the ED the patient was hypotensive with blood pressure 94/50 and his laboratory data showed mild acute kidney injury with a BUN of 21, creatinine 1.86, lactic acidosis with lactic acid level 3.6 and elevated BNP at 427. In addition, he was found to have elevated D -dimer at 12.28. CT scan of the brain was obtained which showed no atrophy, otherwise no acute intracranial abnormalities. A VQ scan was obtained as well in the ER which showed low probability for pulmonary embolism. His initial chest x-ray from early this morning showed bilateral pleural effusions and patchy bilateral pulmonary infiltrates. Central line was placed by ED physician and a repeat chest x-ray showed right IJ central line in good position , bilateral effusions with bilateral parenchymal densities, right greater than the left. In the ER he was given 2 liters of crystalloids in addition to vancomycin, Zosyn, Solu-Medrol, bronchodilator and Bumex. He was hypotensive in the ER and the patient was placed on Levophed which is currently at three mics. Due to his respiratory distress, the patient was intubated and placed on full mechanical ventilation. When seen he is on Diprivan infusion for sedation. However, the patient is awake, alert and follows commands. ABG post intubation showed a pH of 7.35, CO2 48, pAO2 325, bicarb 26, saturation of 98%. 06/26: Patient is sedated with Diprivan. Afebrile. Off Levophed. 06/27: Extubated 06/26. Of all vasopressors. Currently on nasal cannula. Tolerating diet. Subjective 06/28: Currently complaining of chest discomfort/pleuritic with breathing and shortness of breath. On 4 L nasal cannula. Complaining of difficulty with swallowing. No bowel movement. Up in chair 4 hours yesterday. 07/08 shortly after midnight rapid response team was called for the patient's seizure-like activity. He received Ativan however shortly after seizure and became unresponsive retaining CO2 at 70s. He required endotracheal intubation for airway protection. After intubation patient became hypotensive requiring low dose of Levophed to keep his map above 65 and central line was placed. 07/09: Sedated, orally intubated on mechanical ventilation. Was transfused 1 unit PRBCs yesterday. Remains on Levophed for pressor support. 07/10: Remains encephalopathic off sedation, orally intubated on mechanical ventilation. On Levophed for pressor support. 07/11: still encephalopathic. versed turned off around 5am. 07/12: less awake today. slightly more hypoxic. not much secretions. ID consulted yesterday, started Levaquin. bronch yesterday to eval RUL mass and cytology sent. gram stain negative for bacteria. 07/13: still encephalopathic. Cr continues to rise. also net +2L despite aggressive attempts at diuresis. 07/14: no significant changes. BNP 1000 yesterday, given diuril, diamox, but still persistently net+. 07/15: net -1.8 L/24h for the first time. Cr stable. in order to remain negative , still on diamox, diuril and bumex drips. CVP still 21. otherwise no change, tolerating cpap better today, but encephalopathy persists. 07/16: net -1.3L/24h. Cr stable. however, CVP still elevated. still very encephalopathic. now with copious diarrhea. vasopressors off this morning. BALs growing landa-resistant pseudomonas, ID on board. 07/17: Hgb 6.9, otherwise no significant changes.Family deciding care plan. Pt Condition on Discharge: Deteriorating Thanh Guzman MD Jul 19, 2016 14:56
== END 2016-07-17 16:43 | disposition expired | DRG 166 ==
LOC: NEPC 03:16 → NEDA 05:16 → NEDH 09:14 → HIMW 11:12 → N07A 07-06 11:26 → N03A 07-08 01:02
PROVIDERS: ADMIT Internal Medicine Critical Care Medicine; ATTEND Internal Medicine Critical Care Medicine
PROC: 5A1935Z Respiratory Ventilation, Less than 24 Consecutive Hours (ICD-10-PCS; 2016-06-25)
PROC: 0BH17EZ Insertion of Endotracheal Airway into Trachea, Via Natural or Artificial Opening (ICD-10-PCS; 2016-06-25)
PROC: 02HV33Z Insertion of Infusion Device into Superior Vena Cava, Percutaneous Approach (ICD-10-PCS; 2016-06-25)
PROC: 0W993ZZ Drainage of Right Pleural Cavity, Percutaneous Approach (ICD-10-PCS; 2016-07-03)
PROC: 0CJS8ZZ Inspection of Larynx, Via Natural or Artificial Opening Endoscopic (ICD-10-PCS; 2016-07-03)
PROC: 0W9B3ZZ Drainage of Left Pleural Cavity, Percutaneous Approach (ICD-10-PCS; 2016-07-05)
PROC: 5A1955Z Respiratory Ventilation, Greater than 96 Consecutive Hours (ICD-10-PCS; 2016-07-08)
PROC: 0BH17EZ Insertion of Endotracheal Airway into Trachea, Via Natural or Artificial Opening (ICD-10-PCS; 2016-07-08)
PROC: 30233N1 Transfusion of Nonautologous Red Blood Cells into Peripheral Vein, Percutaneous Approach (ICD-10-PCS; 2016-07-08)
PROC: 02HV33Z Insertion of Infusion Device into Superior Vena Cava, Percutaneous Approach (ICD-10-PCS; 2016-07-08)
PROC: 0B9C8ZX Drainage of Right Upper Lung Lobe, Via Natural or Artificial Opening Endoscopic, Diagnostic (ICD-10-PCS; principal; 2016-07-11)
DX: J96.01 Acute respiratory failure with hypoxia (principal); I50.23 Acute on chronic systolic (congestive) heart failure; K76.7 Hepatorenal syndrome; R65.21 Severe sepsis with septic shock; G93.41 Metabolic encephalopathy; A41.9 Sepsis, unspecified organism; J15.1 Pneumonia due to Pseudomonas; I95.9 Hypotension, unspecified; J90 Pleural effusion, not elsewhere classified; N17.9 Acute kidney failure, unspecified; I13.0 Hypertensive heart and chronic kidney disease with heart failure and stage 1 through stage 4 chronic kidney disease, or unspecified chronic kidney disease; E46 Unspecified protein-calorie malnutrition; E87.2 Acidosis; N39.0 Urinary tract infection, site not specified; I82.612 Acute embolism and thrombosis of superficial veins of left upper extremity; I31.3 Pericardial effusion (noninflammatory); I42.9 Cardiomyopathy, unspecified; J47.0 Bronchiectasis with acute lower respiratory infection; E11.22 Type 2 diabetes mellitus with diabetic chronic kidney disease; D69.6 Thrombocytopenia, unspecified; D64.9 Anemia, unspecified; N18.9 Chronic kidney disease, unspecified; R49.0 Dysphonia; K21.9 Gastro-esophageal reflux disease without esophagitis; K72.90 Hepatic failure, unspecified without coma; K70.31 Alcoholic cirrhosis of liver with ascites; J45.909 Unspecified asthma, uncomplicated; R56.9 Unspecified convulsions; I48.0 Paroxysmal atrial fibrillation; I44.7 Left bundle-branch block, unspecified; I25.10 Atherosclerotic heart disease of native coronary artery without angina pectoris; R19.7 Diarrhea, unspecified; E11.65 Type 2 diabetes mellitus with hyperglycemia; E11.649 Type 2 diabetes mellitus with hypoglycemia without coma; E86.9 Volume depletion, unspecified; D72.819 Decreased white blood cell count, unspecified; N40.0 Benign prostatic hyperplasia without lower urinary tract symptoms; F10.20 Alcohol dependence, uncomplicated; F03.90 Unspecified dementia, unspecified severity, without behavioral disturbance, psychotic disturbance, mood disturbance, and anxiety; Z66 Do not resuscitate; Z51.5 Encounter for palliative care; Z16.24 Resistance to multiple antibiotics; Z79.4 Long term (current) use of insulin; Z87.891 Personal history of nicotine dependence; Z89.411 Acquired absence of right great toe
CPT/HCPCS: 31500; 32555; 36430; 36556; 36600; 51702; 70450; 70551; 71010; 71020; 71250; 76775; 78582; 80048; 80053; 80076; 81001; 82140; 82150; 82306; 82550; 82728; 82805; 82945; 82948; 83540; 83550; 83605; 83615; 83735; 83880; 83970; 83986; 84100; 84132; 84155; 84157; 84484; 85014; 85018; 85025; 85027; 85379; 85384; 85610; 85730; 86022; 86850; 86900; 86901; 86920; 87015; 87040; 87070; 87077; 87086; 87102; 87116; 87184; 87186; 87205; 87206; 87493; 87500; 87641; 88112; 88305; 89051; 93005; 93308; 93970; 94002; 94003; 94640; 94664; 95819; 96365; 96375; A9540; A9567; C1729; C9113; J0171; J0330; J0461; J0610; J0695; J1120; J1170; J1205; J1630; J1815; J1940; J1953; J1956; J2060; J2185; J2250; J2260; J2543; J2930; J3010; J3370; J3475; J3480; J7030; J7050; J7613; P9016; P9045; P9047